=== PATIENT | male | born 1980 | race Caucasian/White ===

== ENCOUNTER 2018-02-23 19:06 | Inpatient (IN) | payer BC, SELFPAY ==
--- OUTSIDE RECORDS SUMMARY | 2018-02-23 19:12 | XMS REPORT | Continuity of Care Document ---
:1980 Author Organization Interface Problems Problem Status Onset Classification Date Comments Source Date Reported FOLLOW UP Active [address] PANCREATITIS Active [address] ACUTE PANCREATITIS, Active [facility] HYPERTRIGYCERIDEMIA [address] [place] [address] BDDC/ RECURRENT Active [facility] CHRONIC PANCREATITIS [address] [place] [address] [place] [address] PANCREATITIS - Active [facility] HOSPITAL FOLLOW UP [address] [place] [address] STOMACH PAIN/ Active [facility] VOMITTING [address] [place] [address] Pancreatitis Active Problem 04/02/[address] Pain Active Problem 02/05/[address] Diabetes mellitus Resolved Problem 04/02/2017 [facility] ACUTE PANCREATITIS Active [facility] WITHOUT NECROSIS OR [facility] PANCREATIC STEATORRHEA Active [facility] Medications Medication Details Route Status Patient Ordering Order Source Instructions Provider Date pregabalin 50 MG 50 mg=1 cap, Active 03/30[facility] Oral Capsule PO, TID, # 30 2017 Medical [Lyrica] cap, 2 Center Refill(s), called to pharmacy amoxicillin 500 500 mg=1 cap, Active 03/30[facility] mg oral capsule PO, TID, 2017 Medical 10days, # 42 Center cap, 0 Refill(s) atorvastatin 80 mg, Route: Inactive 02/13[facility] PO, Drug [facility] Medical form: TAB, Center Bedtime, Dosing Weight 82.813, kg, Start date: 02/12/17 21:00:00 CDT, Duration: 30 day, Stop date: 03/13/17 21:00:00 CDT insulin detemir 15 unit, 0.15 Inactive 02/13[facility] mL, Route: 2017 Medical SUB-Q, Drug Center form: SOLN, Q12H, Dosing Weight 82.813, kg, Start date: 02/12/17 21:00:00 CDT, Duration: 30 day, Stop date: 03/14/17 9:00:00 CDTNotes: Same as Levmoizir Do not hold insulin without contacting prescriber WASTE: F/P - Black; E - Municipal Trash Bin "single patient use only" Acetaminophen 300 1 tab, PO, Active [facility] MG / Codeine Q4H, PRN 2017 Medical Phosphate 30 MG Pain, X 5 Center Oral Tablet day, # 20 [Tylenol with tab, 0 Codeine #3] Refill(s) Ondansetron 4 MG 4 mg=1 tab, Active [facility] Oral Tablet PO, Q8H, PRN 2017 Medical [Zofran] Nausea/Vomiti Center ng, # 10 tab, 0 Refill(s), Pharmacy: [facility] [id number] 3 ML Insulin, See Active [facility] Aspart, Human 100 Instructions, 2017 Medical UNT/ML Pen Check Center Injector fingerstick [NovoLog] with meals (three times a day) If Glu 150-199 -> 2units 200-249 -> 4 units 250-299 -> 6 units 300-349 -> 8 units >=350 -> 10 units, # 3 mL, 0 Refill(s), other dicyclomine 20 mg 20 mg=1 tab, Active [facility] oral tablet PO, QID, # 28 2017 Medical tab, 0 Center Refill(s), Pharmacy: [place] [address] omega-3 1,000 mg=1 Active [facility] polyunsaturated cap, PO, BID, 2017 Medical fatty acids 1000 # 60 cap, 0 Center mg oral capsule Refill(s), Pharmacy: [place] [address] Oxycodone 5 mg, 1 tab, Inactive [facility] Hydrochloride 5 Route: PO, 2017 Medical MG Oral Tablet Drug form: Center TAB, Q4H, Dosing Weight 82.813, kg, PRN Pain Score 7-10, Start date: 02/12/17 13:47:00 CDT, Duration: 30 day, Stop date: 03/14/17 13:46:00 CDTNotes: (Same as: Roxicodone) Acetaminophen 300 2 tab, Route: Inactive [facility] MG / Codeine PO, Drug 2017 Medical Phosphate 30 MG Form: TAB, Center Oral Tablet Dosing Weight [Tylenol with 82.813, kg, Codeine #3] Q6H, PRN Pain Score 4-6, Start date: 02/12/17 11:32:00 CDT, Stop date: 03/14/17 11:31:00 CDTNotes: Do not exceed 4gm/day of acetaminophen . (Same as: Tylenol with Codeine # 3) insulin detemir 15 unit, Inactive [facility] Route: SUB-Q, 2017 Medical Q12H, Dosing Center Weight 82.813, kg, Start date: 02/12/17 9:00:00 CDT, Duration: 30 day, Stop date: 03/13/17 21:00:00 CDT Bentyl 20 mg, 1 tab, Inactive [facility] Route: PO, 2017 Medical Drug form: Center TAB, QID, Dosing Weight 82.813, kg, Start date: 02/12/17 9:00:00 CDT, Duration: 30 day, Stop date: 03/13/17 21:00:00 CDTNotes: (Same as: Bentyl) Insulin Glargine 15 unit, 0.15 No Longer [facility] 100 UNT/ML mL, Route: Active 2016 Medical Injectable SUB-Q, Drug Center Solution [Lantus] form: SOLN, Q12H, Dosing Weight 82.813, kg, Start date: 02/10/17 21:00:00 CDT, Duration: 30 day, Stop date: 03/12/17 9:00:00 CDTNotes: Same as: Lantus) Do not hold insulin without contacting prescriber WASTE: F/P - Black; E - Municipal Trash Bin Dextrose 50% 25 gm, 50 mL, No Longer [facility] Syringe Route: IVP, Active 2016 Medical Drug Form: Center INJ, Dosing Weight 82.813, kg, PRN, PRN Blood Glucose Results, Start date: 02/10/17 20:43:00 CDT, Duration: 30 day, Stop date: 03/12/17 20:42:00 CDT Insulin, Aspart, 6 unit, 0.06 No Longer [facility] Human mL, Route: Active 2016 Medical SUB-Q, Drug Center form: SOLN, TID-Before Meals, Dosing Weight 82.813, kg, PRN Blood Glucose Results, Start date: 02/10/17 20:43:00 CDT, Duration: 30 day, Stop date: 03/12/17 20:42:00 CDTNotes: Roll in palms of hands gently; Do not shake vigorously. (Same as: NovoLOG) "single patient use only" WASTE: F/P - Black; E - Municipal Trash Bin Stable for 28 days at room temperature. Expires in days from _Date Glucagon 1 mg, Route: No Longer [place] IM, Drug Active 2016 Medical form: [facility] PDR/INJ, PRN, Dosing Weight 82.813, kg, PRN Blood Glucose Results, Start date: 02/10/17 20:43:00 CDT, Duration: 30 day, Stop date: 03/12/17 20:42:00 CDT Zofran 4 mg, 2 mL, No Longer [facility] Route: IVP, Active 2016 Medical Drug form: [place] INJ, Q6H, Dosing Weight 82.813, kg, PRN Nausea, Start date: 02/10/17 8:53:00 CDT, Duration: 30 day, Stop date: 03/12/17 8:52:00 CDTNotes: (Same as: Zofran) MEDICATION WASTE Product Size: 4 mg Product Wasted: ___ mg potassium 40 mEq, 2 Inactive [place] chloride 20 mEq tab, Route: 2017 Medical oral tablet, PO, Drug [place] extended release form: ERTAB, ONCE, Dosing Weight 82.813, kg, Start date: 02/10/17 0:20:00 CDT, Stop date: 02/10/17 0:20:00 CDTNotes: (Same as: K-Dur 20) "Do Not Crush" With food and full glass of water Benadryl 10 mg, 4 mL, No Longer [facility] Route: PO, Active 2016 Medical Drug form: [place] LIQ, ONCE, Dosing Weight 82.813, kg, Start date: 02/09/17 23:50:00 CDT, Stop date: 02/09/17 23:50:00 CDTNotes: (Same as: Benadryl) dextrose 10% in 1,000 mL, No Longer [facility] water 1,000 mL Rate: 200 Active 2016 Medical ml/hr, Infuse Center over: 5 hr, Route: IV, Dosing Weight 82.813 kg, Total Volume: 1,000, Start date: 02/09/17 16:47:00 CDT, Duration: 30 day, Stop date: 03/11/17 16:46:00 CDT Promethazine 12.5 mg, 0.5 No Longer [facility] mL, Route: Active 2016 Medical IVPB, Drug Center form: INJ, Q4H, Dosing Weight 82.813, kg, PRN Nausea & Vomiting, Start date: 02/09/17 9:01:00 CDT, Duration: 30 day, Stop date: 03/11/17 9:00:00 CDTNotes: Do not give IV push. (Same as: Phenergan) Saline Flush 0.9% 10 ml, Route: No Longer [facility] IVP, Drug Active 2016 Medical Form: INJ, Center Dosing Weight 82.813, kg, Q12H, Start date: 02/09/17 9:00:00 CDT, Duration: 30 day, Stop date: 03/10/17 21:00:00 CDTNotes: Same as: BD Posiflush Sterile Gemfibrozil 600 mg, 1 No Longer [facility] tab, Route: Active 2016 Medical PO, Drug Center form: TAB, BID, Dosing Weight 82.813, kg, Start date: 02/09/17 9:00:00 CDT, Duration: 30 day, Stop date: 03/10/17 17:00:00 CDTNotes: (Same as: Lopid) Amylases 876672 1 cap, Route: No Longer [facility] UNT / PO, Drug Active 2016 Medical Endopeptidases Form: DRC, Center 78538 UNT / Dosing Weight Lipase 90607 UNT 82.813, kg, Enteric Coated TID, Start Capsule [Creon date: 24] 02/09/17 9:00:00 CDT, Duration: 30 day, Stop date: 03/10/17 17:00:00 CDTNotes: Same as: Carter PEÑA 24 : lipase 24,000 units, protease 76,000 units, amylase 120,000 units Alva-3 Acid 2 gm, 2 cap, No Longer [facility] Ethyl Esters Route: PO, Active 2017 Medical ([facility]) 1000 MG Drug Form: Center Oral Capsule CAP, Dosing [Lovaza] Weight 82.813, kg, BID, Start date: 02/09/17 9:00:00 CDT, Duration: 30 day, Stop date: 03/10/17 17:00:00 CDTNotes: (Same as: MaxEPA, Alva 3 fish oil ) Non-Formular y Drug Dilaudid 0.5 mg, 0.25 No Longer [place] mL, Route: Active 2016 Medical IV, Drug Center form: INJ, Q3H, Dosing Weight 82.813, kg, PRN Pain Score 7-10, Start date: 02/09/17 7:47:00 CDT, Stop date: 03/11/17 7:46:00 CDTNotes: Same as: Dilaudid Oxycodone 10 mg, 2 tab, No Longer [facility] Hydrochloride 5 Route: PO, Active 2016 Medical MG Oral Tablet Drug form: Center TAB, Q4H, Dosing Weight 82.813, kg, Start date: 02/09/17 7:46:00 CDT, Stop date: 03/11/17 8:00:00 CDTNotes: (Same as: Roxicodone) Dilaudid 0.5 mg, 0.25 Inactive [place] mL, Route: 2016 Medical IVP, Drug Center form: INJ, ONCE, Dosing Weight 82.813, kg, Priority: STAT, Start date: 02/09/17 5:29:00 CDT, Stop date: 02/09/17 5:29:00 CDTNotes: Same as: Dilaudid Dilaudid 0.5 mg, 0.25 Inactive [place] mL, Route: 2017 Medical IVP, Drug Center form: INJ, Q6H, Dosing Weight 82.813, kg, PRN Pain Score 7-10, Start date: 02/09/17 2:09:00 CDT, Duration: 30 day, Stop date: 03/11/17 2:08:00 CDTNotes: Same as: Dilaudid Zofran 4 mg, 2 mL, No Longer [facility] Route: IVP, Active 2016 Medical Drug form: Center INJ, Q8H, Dosing Weight 82.813, kg, PRN Nausea, Start date: 02/09/17 2:08:00 CDT, Duration: 30 day, Stop date: 03/11/17 2:07:00 CDTNotes: (Same as: Zofran) MEDICATION WASTE Product Size: 4 mg Product Wasted: 0 mg Enoxaparin 40 mg, 0.4 No Longer [place] mL, Route: Active 2016 Medical SUB-Q, Drug Center form: INJ, [id number], Dosing Weight 82.813, kg, Start date: 02/09/17 2:00:00 CDT, Duration: 30 day, Stop date: 03/10/17 2:00:00 CDTNotes: (Same as: Lovenox) Potassium 20 mEq, 15 No Longer [facility] Chloride mL, Route: Active 2016 Medical [place], Drug Center form: LIQ, PRN, Dosing Weight 82.813, kg, PRN Abnormal Lab Result, Start date: 02/09/17 1:58:00 CDT, Duration: 30 day, Stop date: 03/11/17 1:57:00 CDT, FOR ICU USE ONLYNotes: (Same as: Potassium Chloride) sodium phosphate 15 mmol, 5 No Longer [facility] mL, Route: Active 2016 Medical IVPB, PRN, Center Dosing Weight 82.813, kg, PRN Abnormal Lab Result, Start date: 02/09/17 1:58:00 CDT, Duration: 30 day, Stop date: 03/11/17 1:57:00 CDT, FOR ICU USE ONLY Calcium Carbonate 1,000 mg, 2 No Longer [facility] 500 MG Chewable tab, Route: Active 2016 Medical Tablet PO, Drug Center form: CHEWTAB, PRN, Dosing Weight 82.813, kg, PRN Abnormal Lab Result, FOR ICU USE ONLY, Start date: 02/09/17 1:58:00 CDT, Duration: 30 day, Stop date: 03/11/17 1:57:00 CDTNotes: (Same As: Tums) Calcium Carbonate 500 [id number] mg elemental calcium Dose= mg calcium carbonate ( mg elemental calcium) potassium 15 mmol, 5 No Longer [place] phosphate mL, Route: Active 2017 Medical IVPB, PRN, Center Dosing Weight 82.813, kg, PRN Abnormal Lab Result, Start date: 02/09/17 1:58:00 CDT, Duration: 30 day, Stop date: 03/11/17 1:57:00 CDT, FOR ICU USE ONLYNotes: (Same as: K Phosphate.) 1 mMol phoshate has 1.47 mEq potassium Infuse over 4 hours Calcium Gluconate 1 gm, 10 mL, No Longer [facility] Route: IVPB, Active 2016 Medical PRN, Dosing Center Weight 82.813, kg, PRN Abnormal Lab Result, Start date: 02/09/17 1:58:00 CDT, Duration: 30 day, Stop date: 03/11/17 1:57:00 CDT, FOR ICU USE ONLYNotes: WASTE: F/P - Sink; E - Municipal Trash Bin potassium 2 pkt, Route: No Longer [place] phosphate-sodium PO, Drug Active 2016 Medical phosphate 250 Form: Center mg-280 mg-160 mg PDR/REC, oral powder for Dosing Weight reconstitution 82.813, kg, PRN, PRN Abnormal Lab Result, FOR ICU USE ONLY, Start date: 02/09/17 1:58:00 CDT, Duration: 30 day, Stop date: 03/11/17 1:57:00 CDTNotes: (Same as: Phos-NaK) Each 1.5 gm pkt has 250mg phosphorous. Mix w/2.5oz water and stir. Magnesium Sulfate 2 gm, 50 mL, No Longer [facility] Route: IVPB, Active 2016 Medical Drug form: Center INJ, PRN, Dosing Weight 82.813, kg, PRN Abnormal Lab Result, Start date: 02/09/17 1:58:00 CDT, Duration: 30 day, Stop date: 03/11/17 1:57:00 CDT, FOR ICU USE ONLYNotes: WASTE: F/P - Sink; E - Municipal Trash Bin Magnesium Oxide 800 mg, 2 No Longer [place] tab, Route: Active 2017 Medical PO, Drug Center form: TAB, PRN, Dosing Weight 82.813, kg, PRN Abnormal Lab Result, FOR ICU USE ONLY, Start date: 02/09/17 1:58:00 CDT, Duration: 30 day, Stop date: 03/11/17 1:57:00 CDTNotes: (Same as: Mag-Ox 400) Magnesium oxide [id number] elemental magnesium Dose=____mg magnesium oxide (___mg elemental magnesium) Saline Flush 0.9% 10 ml, Route: No Longer [facility] IVP, Drug Active 2016 Medical Form: INJ, Center Dosing Weight 82.813, kg, PRN, PRN Line Flush, Start date: 02/09/17 1:58:00 CDT, Duration: 30 day, Stop date: 03/11/17 1:57:00 CDTNotes: Same as: BD Posiflush Sterile Nystatin 100 1 appl, No Longer [facility] UNT/MG Topical Route: TOP, Active 2017 Medical Powder PRN, Drug Center form: PWDR, PRN For Fungal Prophylaxis, Start date: 02/09/17 1:58:00 CDT, Duration: 30 day, Stop date: 03/11/17 1:57:00 CDTNotes: (Same as:Mycostatin , Nilstat) For external use only. Dilaudid 1 mg, Route: Inactive [facility] IVP, ONCE, 2016 Medical Dosing Weight Center 81.818, kg, Priority: STAT, Start date: 02/08/17 23:11:00 CDT, Stop date: 02/08/17 23:11:00 CDT Zofran 4 mg, Route: Inactive [facility] IVP, Drug 2016 Medical form: INJ, Center ONCE, Dosing Weight 81.818, kg, Start date: 02/08/17 23:10:00 CDT, Stop date: 02/08/17 23:10:00 CDT dextrose 10% in 1,000 mL, No Longer [facility] water 1,000 mL Rate: 150 Active 2016 Medical ml/hr, Infuse Center over: 6.7 hr, Route: IV, Dosing Weight 81.818 kg, Total Volume: 1,000, Start date: 02/08/17 22:02:00 CDT, Stop date: 03/10/17 22:01:00 CDT Dilaudid 1 mg, Route: Inactive [facility] IV, ONCE, 2016 Medical Dosing Weight Center 81.818, kg, Start date: 02/08/17 21:15:00 CDT, Stop date: 02/08/17 21:15:00 CDT Dilaudid 1 mg, Route: Inactive [facility] IVP, ONCE, 2016 Medical Dosing Weight Center 81.818, kg, Priority: STAT, Start date: 02/08/17 19:38:00 CDT, Stop date: 02/08/17 19:38:00 CDT Dilaudid 1 mg, Route: Inactive [facility] IVP, ONCE, 2016 Medical Dosing Weight Center 81.818, kg, Priority: STAT, Start date: 02/08/17 17:32:00 CDT, Stop date: 02/08/17 17:32:00 CDT Dextrose 50% 25 gm, 50 mL, No Longer [facility] Syringe Route: IVP, Active 2016 Medical Drug Form: Center INJ, Dosing Weight 81.818, kg, PRN, PRN Blood Glucose Results, Start date: 02/08/17 17:27:00 CDT, Duration: 30 day, Stop date: 03/10/17 17:26:00 CDT Insulin regular 99 mL, Rate: No Longer [facility] 100 unit + sodium Start Insulin Active 2016 Medical chloride 0.9% INJ Drip Per ICU Center 99 mL Protocol, Dosing Weight 81.818, kg, Route: IVPB, Total Volume: 100, Start Date: 02/08/17 17:27:00 CDT, Duration: 30 day, Stop date: 03/10/17 17:26:00 CDT, Replace Every: 24 hrNotes: (Same as: Humulin R and NovoLIN R) WASTE: F/P - Black; E - Municipal Trash Bin (Do not shake) Ondansetron 4 mg, Route: Inactive [facility] IVP, Drug 2016 Medical form: INJ, Center ONCE, Dosing Weight 81.818, kg, Priority: STAT, Start date: 02/08/17 16:55:00 CDT, Stop date: 02/08/17 16:55:00 CDT Dilaudid 1 mg, Route: Inactive [facility] IV, ONCE, 2017 Medical Dosing Weight Center 81.818, kg, Start date: 02/08/17 16:38:00 CDT, Stop date: 02/08/17 16:38:00 CDT Isolyte S PH-7.4 1,000 mL, Inactive [facility] (Bolus) IV Route: IV, 2016 Medical Dosing Weight Center 81.818, kg, ONCE, Start date: 02/08/17 16:38:00 CDT, Stop date: 02/08/17 16:38:00 CDT Amylases 392308 See Active [place] UNT / Instructions, 2017 Medical Endopeptidases 2 caps Center 513714 UNT / (72,000 Lipase 95996 UNT units) TID w/ Enteric Coated meals, 1 cap Capsule [Creon] (36,000 units) TID with snacks; may be mixed with soft foods such as applesauce, # 270 cap, 0 Refill(s), Pharmacy: [facility] [id number] niacin 500 mg 500 mg=1 tab, Active [place] oral tablet, PO, Bedtime, 2017 Medical extended release # 30 tab, 0 Center Refill(s), Pharmacy: [facility] 149 3 ML Insulin 35 unit, Active [place] Glargine 100 SUB-Q, Daily, 2017 Medical UNT/ML Prefilled # 3 mL, 0 Center Syringe [Lantus] Refill(s), Pharmacy: [facility] 149 gemfibrozil 600 600 mg=1 tab, Active [facility] mg oral tablet PO, BID, # 60 2017 Medical tab, 0 Center Refill(s), Pharmacy: [place] [address] Alva-3 Acid 2,000 mg=, Active [place] Ethyl Esters PO, BID, # 60 2017 Medical ([facility]) 1000 MG tab, 0 Center Oral Capsule Refill(s), [Lovaza] Pharmacy: [place] [address] oxyCODONE 10 mg 10 mg, 1 tab, No Longer [place] extended release Route: PO, Active 2016 Medical Drug form: [place] ERTAB, Q12H, Start date: 01/16/17 11:00:00 CDT, Duration: 30 day, Stop date: 02/15/17 9:00:00 CDTNotes: Do not crush or chew. (Same as: OxyContin) NovoLOG FlexPen 5 unit, Inactive [place] Route: SUB-Q, 2017 Medical TID-Before Center Meals, Dosing Weight 77.273, kg, Start date: 01/15/17 11:30:00 CDT, Duration: 30 day, Stop date: 02/14/17 7:30:00 CDT insulin regular 8 unit, 0.08 No Longer [place] 100 units/mL mL, Route: [facility] human recombinant SUB-Q, Drug [place] form: SOLN, TID-Before Meals, Start date: 01/15/17 11:30:00 CDT, Stop date: 02/14/17 7:30:00 CDTNotes: (Same as: Humulin R) Roll in palms of hands gently; Do not shake vigorously. "single patient use only" (Restricted to patients requiring a dose > 60 units) WASTE: F/P - Black; E - Municipal Trash Bin Stable for 28 days at room temperature Expires in days from _Date 3 ML Insulin 32 unit, 0.32 No Longer [place] Glargine 100 mL, Route: Active [facility] UNT/ML Prefilled SUB-Q, Drug [place] Syringe [Lantus] form: MARYCRUZ, Daily, Dosing Weight 77.273, kg, Start date: 01/15/17 9:00:00 CDT, Stop date: 02/13/17 9:00:00 CDTNotes: Same as: Lantus) Do not hold insulin without contacting prescriber WASTE: F/P - Black; E - Municipal Trash Bin Iohexol 100 mL, Inactive [place] Route: IVP, 2016 Medical Drug Form: [place] SOLN, Dosing Weight 77.273, kg, ONCALL, STAT, Start date: 01/15/17 3:38:00 CDT, Duration: 1 doses or times, Dose=2.2ml/kg , Max [id number] -- "To be infused by Radiology Staff ONLY"Notes: (Same as:Omnipaque 350). WASTE: F/P - Black; E - Municipal Trash Bin Pneumovax 23 0.5 mL, Inactive [place] Route: IM2016 Medical Drug Form: Center INJ, Daily, Start date: 01/14/17 18:30:00 CDT, Duration: 1 doses or times, Stop date: 01/14/17 18:30:00 CDT Pneumovax 23 0.5 mL, Inactive [place] Route: IM2016 Medical Drug Form: Center INJ, Daily, Start date: 01/14/17 16:00:00 CDT, Duration: 1 doses or times, Stop date: 01/14/17 16:00:00 CDTNotes: (Same as: Pneumovax 23) Refrigerate insulin, isophane 12 unit, 0.12 No Longer [place] mL, Route: Active 2016 Medical SUB-Q, Drug Center form: INJ, Q12H, Dosing Weight 77.273, kg, Start date: 01/14/17 9:00:00 CDT, Stop date: 02/12/17 21:00:00 CDTNotes: Roll in palms of hands gently; Do not shake vigorously. (Same as: Humulin N) Do not hold insulin without contacting prescriber WASTE: F/P - Black; E - Municipal Trash Bin Stable for 28 days at room temperature Expires in days from _Date Enoxaparin 40 mg, 0.4 No Longer [place] mL, Route: Active 2016 Medical SUB-Q, Drug Center form: INJ, [id number], Dosing Weight 77.273, kg, Start date: 01/14/17 7:00:00 CDT, Duration: 30 day, Stop date: 02/12/17 9:00:00 CDTNotes: (Same as: Lovenox) Docusate Sodium 2 tab, Route: No Longer [place] 50 MG / PO, Drug Active 2016 Medical sennosides, [facility] Form: TAB, Center 8.6 MG Oral Dosing Weight Tablet 77.273, kg, Q12H, Start date: 01/13/17 21:00:00 CDT, Duration: 30 day, Stop date: 02/12/17 9:00:00 CDTNotes: (Same as Senokot-S) Equiv. to Cris-Colace. Oxycodone 10 mg, 2 tab, No Longer [place] Hydrochloride 5 Route: PO, Active 2016 Medical MG Oral Tablet Drug form: Center TAB, Q6H, Dosing Weight 77.273, kg, PRN Pain Score 4-6, Start date: 01/13/17 18:00:00 CDT, Stop date: 02/12/17 12:00:00 CDTNotes: (Same as: Roxicodone) sodium chloride 1,000 mL, No Longer [place] 0.9% 1000 ml INJ Rate: 125 Active 2016 Medical 1,000 mL ml/hr, Infuse Center over: 8 hr, Route: IV, Dosing Weight 77.273 kg, Total Volume: 1,000, Start date: 01/13/17 15:55:00 CDT, Duration: 30 day, Stop date: 02/12/17 15:54:00 CDT 3 ML Insulin, SUB-Q, Active [place] Aspart, Human 100 TID-Before 2016 Medical UNT/ML Pen Meals, Center Injector sliding scale [NovoLog] 3 ML Insulin 35 unit, No Longer [place] Glargine 100 SUB-Q, Daily Active 2016 Medical UNT/ML Prefilled Center Syringe [Lantus] potassium 40 mEq, 2 Inactive [place] chloride 20 mEq tab, Route: 2016 Medical oral tablet, PO, Drug Center extended release form: ERTAB, Lunch, Dosing Weight 77.273, kg, Start date: 01/13/17 12:00:00 CDT, Duration: 1 doses or times, Stop date: 01/13/17 12:00:00 CDTNotes: (Same as: K-Dur 20) "Do Not Crush" With food and full glass of water Insulin regular 3 unit, 0.03 No Longer [place] mL, Route: Active 2016 Medical SUB-Q, Drug Center form: SOLN, TID-Before Meals, Dosing Weight 77.273, kg, PRN Blood Glucose Results, Start date: 01/13/17 9:40:00 CDT, Duration: 30 day, Stop date: 02/12/17 9:39:00 CDTNotes: (Same as: Humulin R) Roll in palms of hands gently; Do not shake vigorously. "single patient use only" (Restricted to patients requiring a dose > 60 units) WASTE: F/P - Black; E - Municipal Trash Bin Stable for 28 days at room temperature Expires in days from _Date Dextrose 50% 12.5 gm, 25 No Longer [facility] Syringe mL, Route: Active 2016 Medical IVP, Drug Center Form: INJ, Dosing Weight 77.273, kg, PRN, PRN Blood Glucose Results, Start date: 01/13/17 9:40:00 CDT, Duration: 30 day, Stop date: 02/12/17 9:39:00 CDT Glucagon 1 mg, Route: No Longer [facility] IM, Drug Active 2016 Medical form: Center PDR/INJ, PRN, Dosing Weight 77.273, kg, PRN Blood Glucose Results, Start date: 01/13/17 9:40:00 CDT, Duration: 30 day, Stop date: 02/12/17 9:39:00 CDT Magnesium Oxide 800 mg, 2 Inactive [facility] tab, Route: 2016 Medical PO, Drug Center form: TAB, TID, Dosing Weight 77.273, kg, Start date: 01/13/17 9:00:00 CDT, Duration: 1 day, Stop date: 01/13/17 17:00:00 CDTNotes: (Same as: Mag-Ox 400) Magnesium oxide [id number] elemental magnesium Dcgv=340 mg magnesium oxide (484 mg elemental magnesium) insulin, isophane 5 unit, 0.05 Inactive 01/[facility] mL, Route: [facility] SUB-Q, Drug Center form: INJ, BID, Dosing Weight 77.273, kg, Start date: 01/13/17 9:00:00 CDT, Duration: 30 day, Stop date: 02/11/17 17:00:00 CDTNotes: Roll in palms of hands gently; Do not shake vigorously. (Same as: Humulin N) Do not hold insulin without contacting prescriber WASTE: F/P - Black; E - Municipal Trash Bin Stable for 28 days at room temperature Expires in days from _Date Potassium 40 mEq, 30 Inactive [place] Chloride 1.33 mL, Route: 2016 Medical MEQ/ML Oral PO, Drug Center Solution form: LIQ, ONCE, Dosing Weight 77.273, kg, Start date: 01/13/17 7:52:00 CDT, Stop date: 01/13/17 7:52:00 CDTNotes: (Same as: Potassium Chloride) potassium 10 mEq, Inactive [place] chloride Route: IVPB, 2017 Medical Q1H, Dosing Center Weight 77.273, kg, Total Dose=40 meq, Start date: 01/13/17 7:00:00 CDT, Duration: 4 doses or times, Stop date: 01/13/17 10:00:00 CDT, Peripheral Line potassium 80 mEq, 4 Inactive [place] chloride 20 mEq tab, Route: 2016 Medical oral tablet, PO, Drug Center extended release form: ERTAB, ONCE, Dosing Weight 77.273, kg, Start date: 01/13/17 6:30:00 CDT, Stop date: 01/13/17 6:30:00 CDTNotes: (Same as: K-Dur 20) "Do Not Crush" With food and full glass of water D5W 1/2NS 1,000 1,000 mL, Inactive [place] mL Rate: 75 2017 Medical ml/hr, Infuse Center over: 13.3 hr, Route: IV, Dosing Weight 77.273 kg, Total Volume: 1,000, Start date: 01/13/17 6:29:00 CDT, Duration: 30 day, Stop date: 02/12/17 6:28:00 CDT Simethicone 80 mg, 1.2 No Longer [place] mL, Route: Active 2016 Medical PO, Drug Center form: DROP, Q6H, Dosing Weight 77.273, kg, PRN Gas, Start date: 01/13/17 0:42:00 CDT, Duration: 30 day, Stop date: 02/12/17 0:41:00 CDTNotes: (Same as: Mylicon, Phazyme, Genasyme) Docusate Sodium 100 mg, 1 No Longer [place] 100 MG Oral cap, Route: Active 2016 Medical Capsule [Colace] PO, Drug Center form: CAP, Bedtime, Dosing Weight 77.273, kg, Start date: 01/12/17 21:00:00 CDT, Duration: 30 day, Stop date: 02/10/17 21:00:00 CDTNotes: (Same as: Colace) (Do Not Crush) niacin 500 mg, 2 No Longer [place] tab, Route: Active 2017 Medical PO, Drug Center form: TAB, Bedtime, Dosing Weight 77.273, kg, Start date: 01/12/17 21:00:00 CDT, Stop date: 02/10/17 21:00:00 CDT dextrose 10% in 980.75 mL, No Longer [place] water 980.75 mL + Rate: 200 Active 2016 Medical sodium chloride ml/hr, Infuse Center 23.4% IV 77 mEq over: 5 hr, Route: IV, Dosing Weight 77.273 kg, Total Volume: 1,000, Start date: 01/12/17 12:42:00 CDT, Duration: 30 doses or times, Stop date: 01/18/17 18:41:00 CDT pneumococcal 0.5 mL, No Longer [place] capsular Route: IM, Active 2016 Medical polysaccharide Drug Form: Center type 1 vaccine / INJ, Daily, pneumococcal Start date: capsular 01/12/17 polysaccharide 9:00:00 CDT, type 10A vaccine Duration: 1 / pneumococcal doses or capsular times, Stop polysaccharide date: type 11A vaccine 01/12/17 / pneumococcal 9:00:00 capsular CDTNotes: polysaccharide (Same as: type 12F vaccine Pneumovax 23) / pneumococcal Refrigerate capsular polysacchar senna 8.6 mg oral 17.2 mg, 2 No Longer [place] tablet tab, Route: Active 2017 Medical PO, Drug Center Form: TAB, Dosing Weight 77.273, kg, BID, Start date: 01/12/17 9:00:00 CDT, Duration: 30 day, Stop date: 02/10/17 17:00:00 CDTNotes: (Same as: Senokot) Dilaudid 0.2 mg, 0.1 No Longer [place] mL, Route: Active 2016 Medical IVP, Drug Center form: INJ, Q3H, Dosing Weight 77.273, kg, PRN Pain Score 7-10, Start date: 01/12/17 8:41:00 CDT, Duration: 30 day, Stop date: 02/11/17 8:40:00 CDTNotes: Same as: Dilaudid Dilaudid 2 mg, Route: Inactive [place] PO, Drug 2016 Medical form: TAB, Center Q3H, Dosing Weight 77.273, kg, PRN Pain Score 4-6, Start date: 01/12/17 8:37:00 CDT, Duration: 30 day, Stop date: 02/11/17 8:36:00 CDT Zofran 4 mg, 2 mL, No Longer [place] Route: IVP, Active 2016 Medical Drug form: Center INJ, Q8H, Dosing Weight 77.273, kg, PRN Nausea, Start date: 01/12/17 8:33:00 CDT, Duration: 30 day, Stop date: 02/11/17 8:32:00 CDTNotes: (Same as: Zofran) MEDICATION WASTE Product Size: 4 mg Product Wasted: ___ mg Miralax 17 gm, 1 pkt, No Longer [place] Route: PO, Active 2016 Medical Drug form: Center PWDR, BID, Dosing Weight 77.273, kg, PRN Constipation, Start date: 01/12/17 7:41:00 CDT, Duration: 30 day, Stop date: 02/11/17 7:40:00 CDTNotes: Dissolve in 8 oz of water or juice. (Same as: Miralax) dextrose 10% in 980.75 mL, Inactive [place] water 980.75 mL + Rate: 200 2016 Medical sodium chloride ml/hr, Infuse Center 23.4% IV 77 mEq over: 5 hr, Route: IV, Dosing Weight 77.273 kg, Total Volume: 1,000, Start date: 01/12/17 7:39:00 CDT, Duration: 1 doses or times, Stop date: 01/12/17 12:38:00 CDT potassium 20 mEq, 100 No Longer [place] chloride mL, Route: Active 2017 Medical IVPB, Drug Center form: INJ, PRN, Dosing Weight 77.273, kg, PRN Abnormal Lab Result, Via central line, Start date: 01/12/17 5:21:00 CDT, Duration: 30 day, Stop date: 02/11/17 5:20:00 CDT, FOR ICU USE ONLYNotes: (Same as: KCL) Infuse no faster than 10 mEq/hr if given peripherally. potassium 45 mmol, 15 No Longer [place] phosphate + mL, Route: Active 2017 [facility] sodium chloride IVPB, PRN, [place] 0.9% INJ 250 mL Dosing Weight 77.273, kg, PRN Abnormal Lab Result, Start date: 01/12/17 5:21:00 CDT, Duration: 30 day, Stop date: 02/11/17 5:20:00 CDT, FOR ICU USE ONLYNotes: (Same as: K Phosphate.) 1 mMol phoshate has 1.47 mEq potassium Infuse over 4 hours Magnesium Sulfate 2 gm, 50 mL, No Longer [place] Route: IVPB, Active 2016 Medical Drug form: [place] INJ, PRN, Dosing Weight 77.273, kg, PRN Abnormal Lab Result, Start date: 01/12/17 5:21:00 CDT, Duration: 30 day, Stop date: 02/11/17 5:20:00 CDT, FOR ICU USE ONLYNotes: WASTE: F/P - Sink; E - Municipal Trash Bin potassium 2 pkt, Route: No Longer [place] phosphate-sodium PO, Drug Active 2016 Medical phosphate 250 Form: [place] mg-280 mg-160 mg PDR/REC, oral powder for Dosing Weight reconstitution 77.273, kg, PRN, PRN Abnormal Lab Result, FOR ICU USE ONLY, Start date: 01/12/17 5:21:00 CDT, Duration: 30 day, Stop date: 02/11/17 5:20:00 CDTNotes: (Same as: Phos-NaK) Each 1.5 gm pkt has 250mg phosphorous. Mix w/2.5oz water and stir. Calcium Gluconate 1 gm, 10 mL, No Longer [place] Route: IVPB, Active 2016 Medical PRN, Dosing Center Weight 77.273, kg, PRN Abnormal Lab Result, Start date: 01/12/17 5:21:00 CDT, Duration: 30 day, Stop date: 02/11/17 5:20:00 CDT, FOR ICU USE ONLYNotes: WASTE: F/P - Sink; E - Municipal Trash Bin Magnesium Oxide 800 mg, 2 No Longer [place] tab, Route: Active 2016 Medical PO, Drug Center form: TAB, PRN, Dosing Weight 77.273, kg, PRN Abnormal Lab Result, FOR ICU USE ONLY, Start date: 01/12/17 5:21:00 CDT, Duration: 30 day, Stop date: 02/11/17 5:20:00 CDTNotes: (Same as: Mag-Ox 400) Magnesium oxide [id number] elemental magnesium Dose=____mg magnesium oxide (___mg elemental magnesium) sodium phosphate 15 mmol, 5 No Longer [place] + sodium chloride mL, Route: Active 2016 Medical 0.9% INJ 250 mL IVPB, PRN, Center Dosing Weight 77.273, kg, PRN Abnormal Lab Result, Start date: 01/12/17 5:21:00 CDT, Duration: 30 day, Stop date: 02/11/17 5:20:00 CDT, FOR ICU USE ONLY Calcium Carbonate 500 mg, 1 No Longer [place] 500 MG Chewable tab, Route: Active 2016 Medical Tablet PO, Drug Center form: CHEWTAB, PRN, Dosing Weight 77.273, kg, PRN Abnormal Lab Result, FOR ICU USE ONLY, Start date: 01/12/17 5:21:00 CDT, Duration: 30 day, Stop date: 02/11/17 5:20:00 CDTNotes: (Same As: Tums) Calcium Carbonate 500 yh=711 mg elemental calcium Dose= mg calcium carbonate ( mg elemental calcium) Gemfibrozil 600 mg, 1 No Longer [place] tab, Route: Active 2017 Medical PO, Drug Center form: TAB, BID-Before Meals, Dosing Weight 77.273, kg, Start date: 01/12/17 5:18:00 CDT, Stop date: 02/10/17 16:30:00 CDTNotes: (Same as: Lopid) gemfibrozil 600 600 mg=1 tab, No Longer [place] mg oral tablet PO, BID, # Active 2016 Medical 180 tab, 0 Center Refill(s) Lovaza 2,000 mg=, No Longer [place] PO, BID, 0 Active 2016 Medical Refill(s) Center 3 ML Insulin SUB-Q, 0 No Longer [place] Glargine 100 Refill(s) Active 2016 Medical UNT/ML Prefilled Center Syringe [Lantus] 3 ML Insulin, SUB-Q, No Longer [facility] Aspart, Human 100 TID-Before Active 2016 Medical UNT/ML Pen Meals, 0 Center Injector Refill(s) [NovoLog] niacin 500 mg 500 mg=1 tab, No Longer [place] oral tablet, PO, Bedtime, Active 2016 Medical extended release # 30 tab, 0 Center Refill(s) Enoxaparin 40 mg, 0.4 No Longer [place] mL, Route: Active 2016 Medical SUB-Q, Drug Center form: INJ, [id number], Dosing Weight 77.273, kg, Start date: 01/12/17 3:00:00 CDT, Duration: 30 day, Stop date: 02/10/17 3:00:00 CDTNotes: (Same as: Lovenox) Morphine 2 mg, 1 mL, No Longer [place] Route: IVP, Active 2016 Medical Drug form: Center INJ, Q4H, Dosing Weight 77.273, kg, PRN Pain Score 7-10, Start date: 01/12/17 2:42:00 CDT, Stop date: 01/14/17 2:41:00 CDTNotes: (Same as:MORPhine Sulfate) D5W 1/2NS 1,000 1,000 mL, Inactive [place] mL Rate: 200 2016 Medical ml/hr, Infuse Center over: 5 hr, Route: IV, Dosing Weight 81.818 kg, Total Volume: 1,000, Start date: 01/12/17 1:06:00 CDT, Stop date: 02/11/17 1:05:00 CDT Hydromorphone 0.5 mg, Inactive [facility] Route: IVP, 2017 Medical ONCE, Dosing Center Weight 81.818, kg, Priority: STAT, Start date: 01/12/17 0:40:00 CDT, Stop date: 01/12/17 0:40:00 CDT Dextrose 50% 12.5 gm, 25 No Longer [facility] Syringe mL, Route: Active 2016 Medical IVP, Drug Center Form: INJ, Dosing Weight 81.818, kg, PRN, PRN Blood Glucose Results, Start date: 01/12/17 0:37:00 CDT, Duration: 30 day, Stop date: 02/11/17 0:36:00 CDT Insulin regular 99 mL, Rate: No Longer [facility] 100 unit + sodium Start Insulin Active 2016 Medical chloride 0.9% INJ Drip Per ICU Center 99 mL Protocol, Dosing Weight 81.818, kg, Route: IVPB, Total Volume: 100, Start Date: 01/12/17 0:37:00 CDT, Duration: 30 day, Stop date: 02/11/17 0:36:00 CDT, Replace Every: 24 hrNotes: (Same as: Humulin R and NovoLIN R) WASTE: F/P - Black; E - Municipal Trash Bin (Do not shake) Morphine 4 mg, Route: Inactive [facility] IVP, ONCE, 2017 Medical Dosing Weight Center 81.818, kg, Priority: STAT, Start date: 01/11/17 23:48:00 CDT, Stop date: 01/11/17 23:48:00 CDT Insulin regular 10 unit, Inactive [facility] Route: SUB-Q, 2017 Medical ONCE, Dosing Center Weight 81.818, kg, Priority: STAT, Start date: 01/11/17 23:30:00 CDT, Stop date: 01/11/17 23:30:00 CDT Morphine 4 mg, Route: Inactive [facility] IVP, ONCE, 2017 Medical Dosing Weight Center 81.818, kg, Priority: STAT, Start date: 01/11/17 22:32:00 CDT, Stop date: 01/11/17 22:32:00 CDT Ondansetron 4 mg, Route: Inactive [facility] IVP, Drug 2016 Medical form: INJ, Center ONCE, Dosing Weight 81.818, kg, Priority: STAT, Start date: 01/11/17 22:25:00 CDT, Stop date: 01/11/17 22:25:00 CDT Sodium Chloride 1,000 mL, Inactive [facility] 0.154 MEQ/ML Infuse Over: 2016 Medical Injectable 1 hr, Route: Center Solution IV, ONCE, Priority: STAT, Dosing Weight 81.818 kg, Start date: 01/11/17 22:25:00 CDT, Duration: 1 doses or times, Stop date: 01/11/17 22:25:00 CDT Allergies, Adverse Reactions, Alerts Substance Category Reaction Severity Reaction Status Date Comments Source type Reported NKDA Assertion Drug Active [facility] Immunizations Immunization Date Site Status Last Updated Comments Source Given pneumococcal Right completed [place] [facility] 23-valent 7 deltoid [facility] vaccine [place] Results Order Name Results Value Reference Date Interpretation Comments Source Range BODY FLUIDS Amylase BF 6510 02/22 [facility] Cyst unit/L [facility] BODY FLUIDS CEA BF Cyst 2.2 ng/mL 02/[address] BODY FLUIDS Glucose BF 355 mg/dL 02/22 [facility] Cyst [address] [place] [address] CHEM PANEL Phosphorus 3.8 mg/dL 2.5 - 4.5 02/[address] CHEM PANEL Magnesium Lvl 2.1 mg/dL 1.8 - 2.4 02/[address] CHEM PANEL Calcium Lvl 8.9 mg/dL 8.5 - 10.5 02/[address] CHEM PANEL eGFR 117 02/12 Result Comment: The eGFR is calculated using the CKD-EPI formula. In most young, healthy individuals the eGFR will be >90 mL/ min/1.73m2. The eGFR declines with age. An eGFR of 60-89 may be normal in [facility] mL/min/1.7 /2016 some populations, particularly the elderly, for whom the CKD-EPI formula has not been extensively validated. Use of the eGFR is not recommended in the following populations: [place] [address] Center Individuals with unstable creatinine concentrations, including patients and those with serious co-morbid conditions. Patients with extremes in muscle mass or diet. The data above are obtained from the National Kidney Disease Education Program (NKDEP) which additionally recommends that when the eGFR is used in patients with extremes of body mass index for purposes of drug dosing, the eGFR should be multiplied by the estimated BMI. CHEM PANEL Potassium Lvl 3.6 meq/L 3.5 - 5.1 02/[address] [place] [address] CHEM PANEL Chloride Lvl 101 meq/L 95 - 109 02/[address] CHEM PANEL Sodium Lvl 138 meq/L 135 - 145 02/[address] CHEM PANEL Calcium Lvl 8.9 mg/dL 8.5 - 10.5 02/[address] CHEM PANEL CO2 27 meq/L 24 - 32 02/[address] CHEM PANEL Glucose Lvl 128 mg/dL 70 - 99 02/[address] CHEM PANEL Creatinine 0.76 mg/dL 0.50 - 02/12 [facility] Lvl 1.40 [facility] CHEM PANEL BUN 11 mg/dL 7 - 22 02/[address] CHEM PANEL AGAP 13.6 meq/L 10.0 - 02/12 [place] 20.0 [facility] HEMATOLOGY INR 1.01 0.85 - 02/12 [facility] 1.17 [facility] HEMATOLOGY PTT 36.0 s 22.9 - 02/12 [place] 35.8 [facility] HEMATOLOGY PT 13.5 s 12.0 - 02/12 [facility] 14.7 [facility] HEMATOLOGY INR 1.01 0.85 - 02/12 [place] 1.17 [facility] HEMATOLOGY PT 13.5 s 12.0 - 02/12 [facility] 14.7 [facility] HEMATOLOGY Eosinophils # 0.1 K/CMM 0.0 - 0.5 02/[address] HEMATOLOGY Basophils 1.2 % 0.0 - 1.0 02/[address] HEMATOLOGY Eosinophils 2.3 % 0.0 - 4.0 02/[address] HEMATOLOGY Lymphocytes # 1.8 K/CMM 1.0 - 5.5 02/[address] HEMATOLOGY Segs-Bands # 1.5 K/CMM 1.5 - 8.1 02/[address] HEMATOLOGY Monocytes # 0.2 K/CMM 0.0 - 0.8 02/12 [facility] HEMATOLOGY RBC Morph Normal 02/12 [facility] (02/12/17 4:25 AM) [place] HEMATOLOGY Segs 42.1 % 45.0 - 02/12 75.0 [facility] HEMATOLOGY Plt Morph Normal 02/12 [facility] (02/12/17 4:25 AM) [place] HEMATOLOGY Lymphocytes 48.6 % 20.0 - 02/12 40.0 [facility] HEMATOLOGY Monocytes 5.8 % 2.0 - 12.0 02/12 [facility] HEMATOLOGY MCH 28.9 pg 27.0 - 02/12 31.0 [facility] HEMATOLOGY RDW 13.8 % 11.5 - 02/12 14.5 [facility] HEMATOLOGY MCHC 35.0 g/dL 32.0 - 02/12 36.0 [facility] HEMATOLOGY Platelet 169 K/CMM 133 - 450 02/12 [facility] HEMATOLOGY MPV 7.4 fL 7.4 - 10.4 02/12 [facility] HEMATOLOGY WBC 3.6 K/CMM 3.7 - 10.4 02/12 [facility] HEMATOLOGY Hgb 14.4 g/dL 14.0 - 02/12 18.0 [facility] HEMATOLOGY RBC 4.98 M/CMM 4.70 - 02/12 6.10 [facility] HEMATOLOGY Hct 41.1 % 42.0 - 02/12 54.0 [facility] HEMATOLOGY MCV 82.5 fL 80.0 - 02/12 94.0 [facility] LIPIDS LDL See Note <=99 mg/dL 02/12 Result [facility] (Calculated) mg/dL Comment: LDL [facility] cholesterol Center cannot be calculated due to very high triglycerides (>400 mg/dL). Recommend Direct LDL if clinically indicated. LIPIDS VLDL See Note 4 02/12 Result Comment: VLDL Medical *NA* - Cholesterol Center level cannot (02/12/17 4:25 AM) be accurately calculated due to very high triglycerides (>400 mg/dL). LIPIDS Trig 526 mg/dL <=149 02/12 [facility] mg/dL /2016 [facility] LIPIDS Chol 158 mg/dL <=199 02/12 [facility] mg/dL [facility] LIPIDS HDL 22 mg/dL >=61 mg/dL 02/12 [facility] [address] [place] [address] LIPIDS CHD Risk 7.18 4.00 - 02/12 [facility] 7.30 [facility] CHEM PANEL Magnesium Lvl 2.1 mg/dL 1.8 - 2.4 02/[address] CHEM PANEL Phosphorus 2.9 mg/dL 2.5 - 4.5 02/11 [facility]2016 [facility] CHEM PANEL eGFR 113 02/11 Result Comment: The eGFR is calculated using the CKD-EPI formula. In most young, healthy individuals the eGFR will be >90 mL/ min/1.73m2. The eGFR declines with age. An eGFR of 60-89 may be normal in [facility] mL/min/1.7 some populations, particularly the elderly, for whom the CKD-EPI formula has not been extensively validated. Use of the eGFR is not recommended in the following populations: [address] Individuals with unstable creatinine concentrations, including patients and those with serious co-morbid conditions. Patients with extremes in muscle mass or diet. The data above are obtained from the National Kidney Disease Education Program (NKDEP) which additionally recommends that when the eGFR is used in patients with extremes of body mass index for purposes of drug dosing, the eGFR should be multiplied by the estimated BMI. CHEM PANEL Calcium Lvl 9.0 mg/dL 8.5 - 10.5 02/[address] [place] [address] CHEM PANEL Sodium Lvl 134 meq/L 135 - 145 02/[address] CHEM PANEL Creatinine 0.82 mg/dL 0.50 - 02/11 [facility] Lvl 1.40 [facility] CHEM PANEL BUN 9 mg/dL 7 - 22 02/[address] CHEM PANEL Glucose Lvl 155 mg/dL 70 - 99 02/[address] CHEM PANEL CO2 29 meq/L 24 - 32 02/[address] CHEM PANEL Chloride Lvl 101 meq/L 95 - 109 02/[address] CHEM PANEL Potassium Lvl 3.8 meq/L 3.5 - 5.1 02/[address] CHEM PANEL AGAP 7.8 meq/L 10.0 - 02/11 [facility] 20.0 [facility] HEMATOLOGY Basophils # 0.1 K/CMM 0.0 - 0.2 02/11 [facility] HEMATOLOGY Eosinophils # 0.1 K/CMM 0.0 - 0.5 02/11 [facility] HEMATOLOGY Monocytes 4.2 % 2.0 - 12.0 02/11 [facility] HEMATOLOGY Lymphocytes 28.2 % 20.0 - 08/ [place] 40.0 /2016 [facility] HEMATOLOGY Segs 65.0 % 45.0 - 08 [place] 75.0 [facility] HEMATOLOGY Basophils 0.9 % 0.0 - 1.0 02/11 [facility] HEMATOLOGY Lymphocytes # 1.6 K/CMM 1.0 - 5.5 02/11 [facility] HEMATOLOGY Segs-Bands # 3.8 K/CMM 1.5 - 8.1 02/11 [facility] HEMATOLOGY Monocytes # 0.2 K/CMM 0.0 - 0.8 02/11 [facility] HEMATOLOGY Eosinophils 1.7 % 0.0 - 4.0 02/11 [facility] HEMATOLOGY MPV 7.1 fL 7.4 - 10.4 02/11 [facility] HEMATOLOGY Platelet 186 K/CMM 133 - 450 02/11 [facility] HEMATOLOGY MCV 82.8 fL 80.0 - 02/11 [place] 94.0 [facility] HEMATOLOGY MCH 28.6 pg 27.0 - 02/11 [place] 31.0 [facility] HEMATOLOGY WBC 5.8 K/CMM 3.7 - 10.4 02/11 [facility] HEMATOLOGY Hgb 14.6 g/dL 14.0 - 08 [place] 18.0 [facility] HEMATOLOGY Hct 42.2 % 42.0 - 08 [place] 54.0 [facility] HEMATOLOGY RBC 5.10 M/CMM 4.70 - 08 [place] 6.10 [facility] HEMATOLOGY RDW 13.7 % 11.5 - 08 [place] 14.5 [facility] HEMATOLOGY MCHC 34.6 g/dL 32.0 - 02/11 [place] 36.0 [facility] PARATHYROID Ca Norm WB 1.08 1.05 - 08 [place] PROFILE mMol/L 1.25 /2016 [facility] PARATHYROID Ca Ion WB 1.13 1.05 - 02/11 [facility] PROFILE mMol/L 1. [facility] ELECTROLYTE Potassium Lvl 4.1 meq/L 3.5 - 5.1 02/10 [facility] S [facility] LIPIDS VLDL See Note 5 02/10 Result Comment: VLDL Medical *NA* - Cholesterol Center level cannot (02/10/17 8:51 AM) be accurately calculated due to very high triglycerides (>400 mg/dL). LIPIDS HDL 19 mg/dL >=61 mg/dL 02/10 [facility] LIPIDS Chol 162 mg/dL <=199 02/10 [facility] mg/dL [facility] LIPIDS Trig 598 mg/dL <=149 02/10 [facility] mg/dL [facility] LIPIDS CHD Risk 8.53 4.00 - 02/10 [facility] 7.30 [facility] LIPIDS LDL See Note <=99 mg/dL 02/10 Result [facility] (Calculated) mg/dL Comment: LDL [facility] cholesterol [place] cannot be calculated due to very high triglycerides (>400 mg/dL). Recommend Direct LDL if clinically indicated. CHEM PANEL eGFR 116 02/10 Result Comment: The eGFR is calculated using the CKD-EPI formula. In most young, healthy individuals the eGFR will be >90 mL/ min/1.73m2. The eGFR declines with age. An eGFR of 60-89 may be normal in [facility] mL/min/1.7 /2016 some populations, particularly the elderly, for whom the CKD-EPI formula has not been extensively validated. Use of the eGFR is not recommended in the following populations: [address] Individuals with unstable creatinine concentrations, including patients and those with serious co-morbid conditions. Patients with extremes in muscle mass or diet. The data above are obtained from the National Kidney Disease Education Program (NKDEP) which additionally recommends that when the eGFR is used in patients with extremes of body mass index for purposes of drug dosing, the eGFR should be multiplied by the estimated BMI. CHEM PANEL CO2 27 meq/L 24 - 32 02/10 [facility] CHEM PANEL Chloride Lvl 102 meq/L 95 - 109 02/10 [facility] CHEM PANEL AGAP 12.1 meq/L 10.0 - 02/10 [facility] 20.0 [facility] CHEM PANEL Creatinine 0.77 mg/dL 0.50 - 08 [facility] Lvl 1.40 /2016 [facility] CHEM PANEL Sodium Lvl 136 meq/L 135 - 145 02/[address] CHEM PANEL BUN 9 mg/dL 7 - 22 02/[address] CHEM PANEL Glucose Lvl 137 mg/dL 70 - 99 02/[address] CHEM PANEL Magnesium Lvl 2.1 mg/dL 1.8 - 2.4 02/[address] [place] [address] CHEM PANEL Phosphorus 3.7 mg/dL 2.5 - 4.5 02/[address] [place] [address] HEMATOLOGY Segs 60.2 % 45.0 - 08 [facility] 75.0 [facility] HEMATOLOGY Lymphocytes 32.1 % 20.0 - 08 40.0 [facility] HEMATOLOGY Segs-Bands # 2.6 K/CMM 1.5 - 8.1 02/[address] HEMATOLOGY Basophils 0.9 % 0.0 - 1.0 02/[address] [place] [address] HEMATOLOGY Eosinophils 2.1 % 0.0 - 4.0 02/[address] [place] [address] HEMATOLOGY Monocytes 4.7 % 2.0 - 12.0 02/10 [facility] [address] [place] [address] HEMATOLOGY Lymphocytes # 1.4 K/CMM 1.0 - 5.5 02/10 [facility] HEMATOLOGY Eosinophils # 0.1 K/CMM 0.0 - 0.5 02/10 [facility] [address] [place] [address] HEMATOLOGY Monocytes # 0.2 K/CMM 0.0 - 0.8 02/10 [facility] HEMATOLOGY RDW 13.8 % 11.5 - 08 14.5 [facility] HEMATOLOGY Platelet 152 K/CMM 133 - 450 02/10 [facility] HEMATOLOGY MPV 7.2 fL 7.4 - 10.4 02/10 [facility] [address] [place] [address] HEMATOLOGY Hct 38.7 % 42.0 - 02/10 54.0 [facility] HEMATOLOGY RBC 4.65 M/CMM 4.70 - 02/10 [place] 6.10 [facility] HEMATOLOGY Hgb 13.2 g/dL 14.0 - 08 18.0 [facility] HEMATOLOGY MCH 28.3 pg 27.0 - 08 [facility] [place] 31.0 [facility] HEMATOLOGY MCV 83.1 fL 80.0 - 02/10 [facility] 94.0 [facility] HEMATOLOGY MCHC 34.0 g/dL 32.0 - 02/10 36.0 [facility] HEMATOLOGY WBC 4.3 K/CMM 3.7 - 10.4 02/10 /2016 [facility] PARATHYROID Ca Norm WB 1.09 1.05 - 02/10 [facility] PROFILE mMol/L 08.05 [facility] PARATHYROID Ca Ion WB 1.12 1.05 - 02/10 [facility] PROFILE mMol/L 08.05 [facility] SPECIAL Hgb A1C 9.3 % <=5.6 % 02/10 [facility] CHEMISTRY /2016 [facility] LIPIDS Trig 499 mg/dL <=149 02/10 [facility] mg/dL [facility] LIPIDS VLDL See Note 6 02/10 Result Comment: VLDL Medical *NA* - Cholesterol Center level cannot (02/09/17 11:04 PM) be accurately calculated due to very high triglycerides (>400 mg/dL). LIPIDS LDL See Note <=99 mg/dL 02/10 Result [facility] (Calculated) mg/dL Comment: LDL [facility] cannot be calculated due to very high triglycerides (>400 mg/dL). Recommend Direct LDL if clinically indicated. LIPIDS CHD Risk 7.33 4.00 - 02/10 [facility] 7.30 [facility] LIPIDS HDL 21 mg/dL >=61 mg/dL 02/10 [facility] LIPIDS Chol 154 mg/dL <=199 02/10 [facility] mg/dL [facility] PARATHYROID Ca Norm WB 1.11 1.05 - 02/09 [facility] PROFILE mMol/L 08.05 [facility] PARATHYROID Ca Ion WB 1.10 1.05 - 02/09 [facility] PROFILE mMol/L . [facility] CHEM PANEL A/G Ratio 1.2 0.7 - 1.6 02/09 [facility] CHEM PANEL ALT 23 unit/L 0 - 65 02/09 [facility] CHEM PANEL AST 8 unit/L 0 - 37 02/09 [facility] CHEM PANEL Globulin 3.3 g/dL 2.7 - 4.2 02/09 [facility] CHEM PANEL B/C Ratio 30 6 - 25 02/[address] CHEM PANEL Total Protein 7.1 g/dL 6.4 - 8.4 02/[address] CHEM PANEL Albumin Lvl 3.8 g/dL 3.5 - 5.0 02/[address] CHEM PANEL Bili Total 1.1 mg/dL 0.2 - 1.3 02/[address] CHEM PANEL Alk Phos 63 unit/L 39 - 136 02/[address] URINE AND UA Mucus None Seen None Seen 02/[address] (02/08/17 5:41 PM) [place] URINE AND UA Sq Epi Rare /LPF Few /LPF 02/[address] URINE AND UA Bacteria Occasional None Seen 02/08 [facility] /HPF /HPF [address] URINE AND UA WBC None Seen None Seen 02/[address] (02/08/17 5:41 PM) [place] URINE AND UA RBC None Seen 0 - 2 02/[address] (02/08/17 5:41 PM) [place] URINE AND UA Leuk Est Negative Negative 02/[address] (02/08/17 5:41 PM) [place] URINE AND UA pH 5.5 5.0 - 8.0 02/[address] URINE AND UA Spec Grav 1.036 <=1.030 02/[address] URINE AND UA Turbidity Clear Clear 02/08 [facility] (02/08/17 5:41 PM) [place] URINE AND UA Nitrite Negative Negative 02/08 [facility] (02/08/17 5:41 PM) [place] URINE AND UA 0.2 EU/dL 0.1 - 1.0 02/08 [facility] Urobilinogen /[address] [place] [address] URINE AND UA Blood Negative Negative 02/[address] (02/08/17 5:41 PM) [place] URINE AND UA Color Yellow Yellow 02/08 [facility] [address] [place] [address] *NA* [place] (02/08/17 5:41 PM) URINE AND UA Ketones Trace Negative 02/[address] *ABN* [place] (02/08/17 5:41 PM) URINE AND UA Bili Negative Negative 02/08 [place] [address] Medical *NA* Center (02/08/17 5:41 PM) URINE AND UA Protein Negative Negative 02/08 [facility] (02/08/17 5:41 PM) Center URINE AND UA Glucose >=1000 Negative 02/08 [facility] STOOL mg/dL mg/dL /2016 [facility] CARDIAC Troponin-I null 0.00 - 02/08 [facility] ENZYMES 0.40 [facility] CHEM PANEL Lactic Acid 0.8 mmol/L 0.5 - 2.2 02/08 [facility] CHEM PANEL A/G Ratio 1.2 0.7 - 1.6 02/[address] CHEM PANEL Bili Total 1.3 mg/dL 0.2 - 1.3 02/[address] CHEM PANEL Alk Phos 60 unit/L 39 - 136 02/[address] CHEM PANEL Bili Indirect 1.2 mg/dL 0.0 - 1.0 02/[address] CHEM PANEL Bili Direct 0.1 mg/dL 0.0 - 0.3 02/[address] CHEM PANEL Total Protein 7.3 g/dL 6.4 - 8.4 02/[address] CHEM PANEL Globulin 3.3 g/dL 2.7 - 4.2 02/[address] CHEM PANEL Albumin Lvl 4.0 g/dL 3.5 - 5.0 02/[address] CHEM PANEL ASPARTATE 5 unit/L 0 - 37 02/08 [facility] TRANSAMINASE [address] CHEM PANEL ALANINE 20 unit/L 0 - 65 02/08 [facility] AMINOTRANSFER [facility] CHEM PANEL Lipase Lvl 232 unit/L 73 - 393 02/[address] HEMATOLOGY Basophils # 0.1 K/CMM 0.0 - 0.2 02/[address] Chest 1view Chest 1view EXAM: XR CHEST 1 VIEW 02/08 - [facility] This report was dictated by a Hvac R Tech/Fellow. I have personally reviewed the images as Center well as the Resident's interpretation and agree with the findings. DATE: 02/08/2017 4:32 PM CDT Read by: Victor Manuel Jones MD Resident: Victor Manuel Jones MD Dictated Date/time: 02/08/17 17:05 Electronically Signed by: Antione Natarajan MD 02/08/17 17:40 FINAL REPORT INDICATION: - epigastric pain COMPARISON: Chest 2 views 04/27/2011. 01/15/2017 CT of the abdomen. TECHNIQUE: AP chest. FINDINGS: Lines/tubes/devices: None. Lungs and pleura: The lungs are clear without focal opacity. There is no pleural effusion or pneumothorax. Heart and mediastinum: The heart size is normal for technique. The mediastinal contours are normal. Bones and soft tissues: No acute bony abnormality is identified. No subdiaphragmatic air is identified. IMPRESSION: 1. No acute cardiopulmonary abnormality. 2. No subdiaphragmatic air is seen. UT SECTION: ER CHEM PANEL eGFR 117 01/18 Result Comment: The eGFR is calculated using the CKD-EPI formula. In most young, healthy individuals the eGFR will be >90 mL/ min/1.73m2. The eGFR declines with age. An eGFR of 60-89 may be normal in [facility] mL/min/1. some populations, particularly the elderly, for whom the CKD-EPI formula has not been extensively validated. Use of the eGFR is not recommended in the following populations: [address] Individuals with unstable creatinine concentrations, including patients and those with serious co-morbid conditions. Patients with extremes in muscle mass or diet. The data above are obtained from the National Kidney Disease Education Program (NKDEP) which additionally recommends that when the eGFR is used in patients with extremes of body mass index for purposes of drug dosing, the eGFR should be multiplied by the estimated BMI. CHEM PANEL Calcium Lvl 9.0 mg/dL 8.5 - 10.5 01/18 [facility] CHEM PANEL AGAP 13.1 meq/L 10.0 - 07 [facility] 20.0 [facility] CHEM PANEL Chloride Lvl 102 meq/L 95 - 109 01/18 [facility] CHEM PANEL CO2 26 meq/L 24 - 32 01/18 [facility] CHEM PANEL Potassium Lvl 4.1 meq/L 3.5 - 5.1 01/18 [facility] CHEM PANEL Creatinine 0.76 mg/dL 0.50 - 01/18 [facility] Lvl 1.40 [facility] CHEM PANEL Sodium Lvl 137 meq/L 135 - 145 01/[address] [place] [address] CHEM PANEL Glucose Lvl 199 mg/dL 70 - 99 01/[address] [place] [address] CHEM PANEL BUN 13 mg/dL 7 - 22 01/[address] HEMATOLOGY Basophils 1.0 % 0.0 - 1.0 01/[address] HEMATOLOGY Eosinophils 1.6 % 0.0 - 4.0 01/[address] [place] [address] HEMATOLOGY Monocytes 5.6 % 2.0 - 12.0 01/[address] [place] [address] HEMATOLOGY Lymphocytes 29.9 % 20.0 - 01/18 [place] 40.0 [facility] HEMATOLOGY Segs 61.9 % 45.0 - 01/18 [place] 75.0 [facility] HEMATOLOGY Segs-Bands # 2.8 K/CMM 1.5 - 8.1 01/[address] HEMATOLOGY Eosinophils # 0.1 K/CMM 0.0 - 0.5 01/[address] HEMATOLOGY Monocytes # 0.3 K/CMM 0.0 - 0.8 01/[address] [place] [address] HEMATOLOGY Lymphocytes # 1.4 K/CMM 1.0 - 5.5 01/[address] [place] [address] HEMATOLOGY MPV 7.6 fL 7.4 - 10.4 01/[address] [place] [address] HEMATOLOGY Platelet 144 K/CMM 133 - 450 01/[address] HEMATOLOGY RDW 13.8 % 11.5 - 07 14.5 [facility] HEMATOLOGY MCHC 34.3 g/dL 32.0 - 01/18 36.0 [facility] HEMATOLOGY Hgb 12.8 g/dL 14.0 - 01/18 18.0 [facility] HEMATOLOGY Hct 37.4 % 42.0 - 01/18 [place] 54.0 [facility] HEMATOLOGY MCH 28.6 pg 27.0 - 07 31.0 [facility] HEMATOLOGY MCV 83.3 fL 80.0 - 01/18 94.0 [facility] HEMATOLOGY RBC 4.48 M/CMM 4.70 - 07 [place] 6.10 [facility] HEMATOLOGY WBC 4.6 K/CMM 3.7 - 10.4 01/18 [place] /[address] [place] [address] LIPIDS Trig 460 mg/dL <=149 01/18 [facility] mg/dL [facility] ELECTROLYTE AGAP 11.0 meq/L 10.0 - 01/17 [facility] 20.0 [facility] ELECTROLYTE Calcium Lvl 8.8 mg/dL 8.5 - 10.5 01/[address] ELECTROLYTE Glucose Lvl 293 mg/dL 70 - 99 01/[address] ELECTROLYTE BUN 11 mg/dL 7 - 22 01/[address] ELECTROLYTE Creatinine 0.81 mg/dL 0.50 - 01/17 [facility] Lvl 1.40 [facility] ELECTROLYTE Sodium Lvl 135 meq/L 135 - 145 01/[address] ELECTROLYTE Chloride Lvl 100 meq/L 95 - 109 01/[address] ELECTROLYTE CO2 28 meq/L 24 - 32 01/[address] ELECTROLYTE Potassium Lvl 4.0 meq/L 3.5 - 5.1 01/[address] ELECTROLYTE eGFR 113 01/17 Result Comment: The eGFR is calculated using the CKD-EPI formula. In most young, healthy individuals the eGFR will be > 90 mL/min/1.73m2. The eGFR declines with age. An eGFR of 60-89 may be normal in [facility] mL/min/1. some populations, particularly the elderly, for whom the CKD-EPI formula has not been extensively validated. Use of the eGFR is not recommended in the following populations: [address] Individuals with unstable creatinine concentrations, including patients and those with serious co-morbid conditions. Patients with extremes in muscle mass or diet. The data above are obtained from the National Kidney Disease Education Program (NKDEP) which additionally recommends that when the eGFR is used in patients with extremes of body mass index for purposes of drug dosing, the eGFR should be multiplied by the estimated BMI. HEMATOLOGY INR 0.98 0.85 - 01/17 [facility] 1.17 [facility] HEMATOLOGY Thrombin Time 14.3 s 15.0 - 01/17 [facility] 21.2 [facility] HEMATOLOGY D-Dimer 0.42 ug/mL 01/17 [facility] FEU [facility] HEMATOLOGY Fibrinogen 550 mg/dL 230 - 510 01/17 [facility] HEMATOLOGY PTT 33.5 s 22.9 - 01/17 [place] 35.8 /2016 [facility] HEMATOLOGY PT 13.2 s 12.0 - 01/17 14.7 /2016 [facility] HEMATOLOGY WBC 4.3 K/CMM 3.7 - 10.4 07 [facility] HEMATOLOGY RBC 4.62 M/CMM 4.70 - 01/17 [place] 6.10 /2016 [facility] HEMATOLOGY MCHC 34.4 g/dL 32.0 - 01/17 36.0 [facility] HEMATOLOGY MCH 28.6 pg 27.0 - 07 31.0 [facility] HEMATOLOGY Hgb 13.2 g/dL 14.0 - 01/17 18.0 [facility] HEMATOLOGY Hct 38.3 % 42.0 - 01/17 54.0 [facility] HEMATOLOGY MCV 83.0 fL 80.0 - 01/17 [facility] 94.0 [facility] HEMATOLOGY RDW 13.8 % 11.5 - 07 14.5 [facility] HEMATOLOGY MPV 7.3 fL 7.4 - 10.4 01/17 [facility] HEMATOLOGY Platelet 143 K/CMM 133 - [address] [place] [address] HEMATOLOGY Basophils 1.0 % 0.0 - 1.0 01/17 [facility] HEMATOLOGY Lymphocytes 32.0 % 20.0 - 07/09 [place] 40.0 /2016 [facility] HEMATOLOGY Eosinophils 1.8 % 0.0 - 4.0 01/[address] [place] [address] HEMATOLOGY Monocytes 5.9 % 2.0 - 12.0 01/17 [facility] HEMATOLOGY Segs 59.3 % 45.0 - 07/ [place] 75.0 [facility] HEMATOLOGY Monocytes # 0.3 K/CMM 0.0 - 0.[address] [place] [address] HEMATOLOGY Lymphocytes # 1.4 K/CMM 1.0 - 5.5 01/17 [facility] HEMATOLOGY Eosinophils # 0.1 K/CMM 0.0 - 0.5 01/17 [facility] HEMATOLOGY Segs-Bands # 2.5 K/CMM 1.5 - 8.1 01/[address] [place] [address] LIPIDS Trig 646 mg/dL <=149 01/17 [facility] mg/dL [facility] PARATHYROID Ca Norm WB 1.10 1.05 - 01/17 [facility] PROFILE mMol/L 1. [facility] PARATHYROID Ca Ion WB 1.12 1.05 - 01/17 [facility] PROFILE mMol/L 1. [facility] CHEM PANEL eGFR 117 01/16 Result Comment: The eGFR is calculated using the CKD-EPI formula. In most young, healthy individuals the eGFR will be >90 mL/ min/1.73m2. The eGFR declines with age. An eGFR of 60-89 may be normal in [facility] mL/min/1.7 some populations, particularly the elderly, for whom the CKD-EPI formula has not been extensively validated. Use of the eGFR is not recommended in the following populations: [address] Individuals with unstable creatinine concentrations, including patients and those with serious co-morbid conditions. Patients with extremes in muscle mass or diet. The data above are obtained from the National Kidney Disease Education Program (NKDEP) which additionally recommends that when the eGFR is used in patients with extremes of body mass index for purposes of drug dosing, the eGFR should be multiplied by the estimated BMI. CHEM PANEL CO2 27 meq/L 24 - 32 01/16 [facility] [address] [place] [address] CHEM PANEL Calcium Lvl 8.7 mg/dL 8.5 - 10.5 01/[address] CHEM PANEL Chloride Lvl 103 meq/L 95 - 109 01/[address] CHEM PANEL Glucose Lvl 225 mg/dL 70 - 99 01/[address] CHEM PANEL BUN 8 mg/dL 7 - 22 01/[address] CHEM PANEL Creatinine 0.76 mg/dL 0.50 - 01/16 [facility] Lvl 1.40 [facility] CHEM PANEL Sodium Lvl 138 meq/L 135 - 145 01/[address] CHEM PANEL Potassium Lvl 3.9 meq/L 3.5 - 5.1 01/[address] CHEM PANEL AGAP 11.9 meq/L 10.0 - 01/16 [facility] 20.0 [facility] HEMATOLOGY Basophils 0.6 % 0.0 - 1.0 01/[address] HEMATOLOGY Segs-Bands # 3.2 K/CMM 1.5 - 8.1 01/[address] [facility] HEMATOLOGY Lymphocytes # 1.4 K/CMM 1.0 - 5.5 01/16 [facility] HEMATOLOGY Monocytes # 0.3 K/CMM 0.0 - 0.8 01/16 [facility] HEMATOLOGY Segs 63.4 % 45.0 - 01/16 75.0 [facility] HEMATOLOGY Eosinophils 0.9 % 0.0 - 4.0 01/16 [facility] HEMATOLOGY Lymphocytes 28.5 % 20.0 - 01/16 [place] 40.0 [facility] HEMATOLOGY Monocytes 6.6 % 2.0 - 12.0 01/16 [facility] HEMATOLOGY RBC 4.35 M/CMM 4.70 - 01/16 6.10 [facility] HEMATOLOGY WBC 5.1 K/CMM 3.7 - 10.4 01/[address] [place] [address] HEMATOLOGY Hgb 12.5 g/dL 14.0 - 01/16 18.0 [facility] HEMATOLOGY MPV 7.3 fL 7.4 - 10.4 01/16 [facility] HEMATOLOGY Platelet 109 K/CMM 133 - 450 01/16 [facility] HEMATOLOGY MCHC 34.8 g/dL 32.0 - 01/16 36.0 [facility] HEMATOLOGY MCH 28.8 pg 27.0 - 01/16 31.0 [facility] HEMATOLOGY RDW 13.7 % 11.5 - 01/16 14.5 [facility] HEMATOLOGY MCV 82.7 fL 80.0 - 01/16 94.0 [facility] HEMATOLOGY Hct 36.0 % 42.0 - 01/16 54.0 [facility] LIPIDS Trig 722 mg/dL <=149 01/16 mg/dL [facility] HEMATOLOGY Eosinophils # 0.1 K/CMM 0.0 - 0.5 01/15 [facility] Abd Abd EXAM: CT ABDOMEN WITHOUT AND WITH CONTRAST 01/15 - [facility] Pancreatic Pancreatic /2016 - Medical Protocol Protocol w/wo This report was dictated by a Hvac R Tech/Fellow. I have personally reviewed the images as Center w/wo contrast CT well as the Resident's interpretation and agree with the findings. contrast CT DATE: 01/15/2017 4:00 AM CDT Read by: Dakota Duron MD Resident: Dakota Duron MD Dictated Date/time: 01/15/17 08:47 Electronically Signed by: Alize Morelos MD 01/15/17 11:09 FINAL REPORT INDICATION: post pancreatitis 12/20/2016 COMPARISON: 01/12/2017 and 05/16/2015 TECHNIQUE: Volumetric CT acquisition of the abdomen before and after the intravenous administration of contrast. Axial, coronal and sagittal reconstructions. Postcontrast phases: Arterial, portal venous, and delayed IV contrast: 95 mL Omnipaque 350 Enteric contrast: None. DLP: 2210 mGy-cm FINDINGS: Lines, tubes and hardware: None. Lower thorax: Clear. Liver: Normal. Biliary tree: No intra- or extrahepatic biliary ductal dilation. Gallbladder: Normal. No CT evidence of gallstones. Pancreas: A 1.4 x 1.2 x 0.8 cm hypodensity in the superior uncinate process (series 6, image 72) is slightly decreased in size compared to 2016 and appears more well-defined compared to CT 015. Surrounding pancreatic edema and peripancreatic fat stranding is slightly improved. A 5.0 x 4.9 x 4.3 cm simple fluid density lesion in the pancreatic tail is unchanged since 01/12/2017 and increas ed in size since 05/16/2015. No pancreatic ductal dilatation seen. Spleen: The spleen is enlarged, measuring 17.2 cm. Numerous perisplenic varices are present. Adrenals: Normal. Kidneys and ureters: Normal. Gastrointestinal tract: Normal caliber. The previously seen duodenal wall thickening and periduodenal fat stranding has improved. Peritoneum, mesentery and retroperitoneum: Normal. No free air, ascites or loculated fluid. Lymph nodes: Numerous subcentimeter mesenteric and retroperitoneal lymph nodes are present. Vasculature: Multiple enlarged perisplenic and perigastric varices are present. Bones: No acute abnormality. Soft tissues: Normal. IMPRESSION: 1. 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 2. Improved pancreatic head edema and peripancreatic fat stranding, consistent with improving pancreatitis. 3. Unchanged cystic lesion in the tail the pancreas, however significantly increased in size from CT 05/16/2015. 4. Splenomegaly and perisplenic and perigastric varices, consistent with portal hypertension. RECOMMENDATIONS: None. LIPIDS VLDL See Note 2 01/14 Result Comment: VLDL Medical *NA* - Cholesterol Center level cannot (01/14/17 3:25 AM) be accurately calculated due to very high triglycerides (>400 mg/dL). LIPIDS LDL See Note <=99 mg/dL 01/14 Result [facility] (Calculated) mg/dL Comment: LDL [facility] cannot be calculated due to very high triglycerides (>400 mg/dL). Recommend Direct LDL if clinically indicated. LIPIDS HDL 14 mg/dL >=61 mg/dL 01/14 [facility] LIPIDS Chol 223 mg/dL <=199 01/14 [facility] mg/dL [facility] LIPIDS CHD Risk 15.93 4.00 - 01/14 [facility] 7.30 [facility] CHEM PANEL Lipase Lvl 171 unit/L 73 - 393 01/13 [facility]2016 [facility] CHEM PANEL Magnesium Lvl 2.0 mg/dL 1.8 - 2.4 01/[address] CHEM PANEL Bili Total 0.8 mg/dL 0.2 - 1.3 01/[address] CHEM PANEL Alk Phos 59 unit/L 39 - 136 01/[address] CHEM PANEL AST 24 unit/L 0 - 37 01/[address] CHEM PANEL ALT 46 unit/L 0 - 65 01/[address] CHEM PANEL Albumin Lvl 2.9 g/dL 3.5 - 5.0 01/13 [facility]2016 [facility] CHEM PANEL Total Protein 6.0 g/dL 6.4 - 8.4 01/[address] CHEM PANEL A/G Ratio 0.9 0.7 - 1.6 01/13 [facility]2016 [facility] CHEM PANEL B/C Ratio 8 6 - 25 01/[address] CHEM PANEL Globulin 3.1 g/dL 2.7 - 4.2 01/[address] TUMOR AFP TM 1.9 ng/mL 0.0 - 11.0 01/13 [facility] Scrotal/Priyanka Scrotal/Testi EXAM: US SCROTUM WITH DOPPLER 01/13 - [facility] ticle w hi w Doppler /2016 - Medical Doppler US US Center DATE: 01/12/2017 5:10 PM CDT Read by: Santo Carlson Dictated Date/time: 01/13/17 13:25 Electronically Signed by: Santo Carlson 01/13/17 13:29 FINAL REPORT INDICATION: pain in R testicle - pain in R testicle ADDITIONAL INFORMATION: None. COMPARISON: CT dated 01/12/2017 TECHNIQUE: Multiplanar grayscale, color Doppler and spectral Doppler ultrasound images of the scrotum and testes. FINDINGS: Right testicle: Size: 5.1 x 2.7 x 3 cm Echogenicity: Normal. Calcifications: None. Cysts: None. Masses: None. Doppler: Normal. Right epidydimis: Size: 0.6 x 1 x 0.8 cm Echogenicity: Normal. Calcifications: None. Cysts: A 0.2 x 0.2 x 0.2 cm cyst seen in the head of the right epididymis. Masses: None. Doppler: Normal. Right hydrocele: Small Right varicocele: None. Right hernia: None. Left testicle: Size: 4.6 x 3 x 3.1 cm Echogenicity: Normal. Cysts: None. Masses: None. Doppler: Normal. Left epidydimis: Size: 0.7 x 1 x 0.8 cm Echogenicity: Normal. Cysts: None Masses: None. Doppler: Normal. Left hydrocele: Small Left varicocele: None. Left hernia: None. No superficial soft tissue modalities seen along the dorsum of the penis in the scanned region. IMPRESSION: 1. Small bilateral hydroceles. Otherwise, unremarkable examination. 2. Corresponding to the site of patient's pain at the dorsal aspect of base of penis, no superficial soft tissue abnormality seen. CHEM PANEL Phosphorus 2.5 mg/dL 2.5 - 4.5 01/[address] CHEM PANEL Magnesium Lvl 1.7 mg/dL 1.8 - 2.4 01/[address] PARATHYROID Ca Ion WB 1.09 1. - 01/13 [facility] PROFILE mMol/L 1. [facility] PARATHYROID Ca Norm WB 1.03 . - 01/13 [facility] PROFILE mMol/L 1. [facility] TUMOR CA 19-9 20.0 0.0 - 35.0 01/13 [facility] MARKERS unit/mL /2016 [facility] TUMOR CA 125 11.3 0.0 - 35.0 01/13 [facility] MARKERS unit/mL /2016 [facility] TUMOR CEA 1.2 ng/mL 0.0 - 3.0 01/13 [facility] MARKERS /2016 [facility] CHEM PANEL Lactic Acid 0.5 mMol/L 0.5 - 2.2 01/12 Result [facility] Lvl Comment: [facility] sample CHEM PANEL Phosphorus 3.2 mg/dL 2.5 - 4.5 01/[address] CHEM PANEL Magnesium Lvl 2.0 mg/dL 1.8 - 2.4 01/[address] Abdomen RUQ Abdomen RUQ EXAM: US ABDOMEN LIMITED 01/12 - [facility] - [facility] DATE: 01/12/2017 at 0902 hours Read by: Hong Blair MD Dictated Date/time: 01/12/17 10:52 Electronically Signed by: Hong Blair MD 01/12/17 10:54 FINAL REPORT INDICATION: - pancreatitis ADDITIONAL INFORMATION: None. COMPARISON: None. TECHNIQUE: Multiplanar grayscale and color Doppler ultrasound of the right upper quadrant. FINDINGS: Liver: Craniocaudal length: 21.4 cm. Echogenicity: Normal. Surface: Normal. Mass (size and location): None. Main portal vein: Caliber: 1.1 cm. Flow: Hepatopetal. Bile ducts: Common bile duct diameter: 0.5 cm. Intrahepatic ducts: Normal. Gallbladder: Surgically absent. Pancreas: Head and uncinate process: Not seen. Body: Normal. Tail: Not seen. Spleen: 18.4 x 6.6 x 6.5 cm. Right kidney: Size: 12.7 x 5.2 x 4.9 cm. Hydronephrosis: None. Echogenicity: Normal. Calculi: None. Cysts/Masses: None. Free fluid: None. Other: None. IMPRESSION: 1. Hepatosplenomegaly. CHEM PANEL LDH 296 unit/L 98 - 192 01/[address] CHEM PANEL Phosphorus 2.2 mg/dL 2.5 - 4.5 01/[address] CHEM PANEL Ketone 0.13 <=0.27 01/12 [facility] Quantitative mmol/L mmol/L /2016 [facility] PARATHYROID Ca Ion WB 1.11 1.05 - 01/12 [facility] PROFILE mMol/L 1. [facility] PARATHYROID Ca Norm WB 1.09 1.05 - 01/12 [facility] PROFILE mMol/L 1. [facility] URINE AND UA Bacteria Occasional None Seen 01/12 [facility] STOOL /HPF /HPF /2016 [facility] URINE AND UA WBC 0-2 /HPF None Seen 01/12 [facility] STOOL /HPF /2016 [facility] URINE AND UA RBC 0-2 /HPF 0 - 2 01/12 [facility] URINE AND UA Sq Epi None Seen Few 01/12 [facility] (01/11/17 11:19 PM) [facility] URINE AND UA Leuk Est Negative Negative 01/12 [facility] (01/11/17 11:19 PM) [facility] URINE AND UA Ketones Negative Negative 01/12 [facility] mg/dL mg/dL [facility] URINE AND UA Glucose >=1000 Negative 01/12 [facility] mg/dL mg/dL [facility] URINE AND UA Blood Negative Negative 01/12 [facility] (01/11/17 11:19 PM) [facility] URINE AND UA Bili Negative Negative 01/12 [facility] *NA* [facility] (01/11/17 11:19 PM) URINE AND UA 0.2 EU/dL 0.1 - 1.0 01/12 [facility] Urobilinogen /2016 [facility] URINE AND UA Nitrite Negative Negative 01/12 [facility] (01/11/17 11:19 PM) [facility] URINE AND UA Color Yellow Yellow 01/12 [facility] *NA* [facility] (01/11/17 11:19 PM) URINE AND UA Spec Grav 1.010 <=1.030 01/12 [facility] URINE AND UA pH 6.0 5.0 - 8.0 01/12 [facility] URINE AND UA Turbidity Clear Clear 01/12 [facility] (01/11/17 11:19 PM) [facility] URINE AND UA Protein Negative Negative 01/12 [facility] mg/dL mg/dL [facility] CHEM PANEL Lipase Lvl 1406 73 - 393 01/12 [facility] unit/L [facility] CHEM PANEL Bili Indirect 1.3 mg/dL 0.0 - 1.0 01/[address] CHEM PANEL Bili Direct 0.1 mg/dL 0.0 - 0.3 01/[address] CHEM PANEL Bili Total 1.4 mg/dL 0.2 - 1.3 01/[address] CHEM PANEL Alk Phos 84 unit/L 39 - 136 01/[address] CHEM PANEL Total Protein 7.9 g/dL 6.4 - 8.4 01/[address] CHEM PANEL A/G Ratio 1.0 0.7 - 1.6 01/[address] CHEM PANEL Globulin 4.0 g/dL 2.7 - 4.2 01/[address] CHEM PANEL Albumin Lvl 3.9 g/dL 3.5 - 5.0 01/[address] CHEM PANEL AST 36 unit/L 0 - 37 01/[address] CHEM PANEL ALT 67 unit/L 0 - 65 01/[address] HEMATOLOGY Basophils # 0.1 K/CMM 0.0 - 0.2 01/[address] HEMATOLOGY Plt Morph Normal 01/12 [facility] [address] [place] [address] (01/11/17 10:33 PM) [facility] HEMATOLOGY RBC Morph Normal 01/12 [facility] [address] [place] [address] (01/11/17 10:33 PM) [facility] Vital Signs Vital Sign Value Date Comments Source BMI Calculated 25.74 03/30/2017 [facility] Weight 81.364 03/30/2017 [facility] Height 177.8 cm 03/30/2017 [facility] Respitory Rate 16 03/30/2017 [facility] Heart Rate 105 03/30/2017 [facility] Systolic (mm Hg) 133 03/30/2017 [facility] Diastolic (mm Hg) 91 03/30/2017 [facility] Systolic (mm Hg) 132 02/12/2017 [facility] Diastolic (mm Hg) 89 02/12/2017 [facility] Temperature Oral (F) 98.1 F 02/12/2017 [facility] Respitory Rate 20 02/12/2017 [facility] Heart Rate 75 02/12/2017 [facility] Systolic (mm Hg) 117 02/12/2017 [facility] Diastolic (mm Hg) 70 02/12/2017 [facility] Heart Rate 75 02/12/2017 [facility] Respitory Rate 20 02/12/2017 [facility] Temperature Oral (F) 97.6 F 02/12/2017 [facility] Systolic (mm Hg) 131 02/12/2017 [facility] Diastolic (mm Hg) 90 02/12/2017 [facility] Respitory Rate 18 02/12/2017 [facility] Heart Rate 74 02/12/2017 [facility] Temperature Oral (F) 97.6 F 02/12/2017 [facility] Weight 82.813 02/09/2017 [facility] BMI Calculated 26.2 02/09/2017 [facility] Height 177.8 cm 02/09/2017 [facility] Height 177.8 cm 02/08/2017 [facility] Weight 81.818 02/08/2017 [facility] BMI Calculated 25.88 02/08/2017 [facility] Respitory Rate 16 02/02/2017 [facility] Systolic (mm Hg) 131 02/02/2017 [facility] Systolic (mm Hg) 147 01/18/2017 [facility] Diastolic (mm Hg) 89 01/18/2017 [facility] Heart Rate 81 01/18/2017 [facility] Temperature Oral (F) 98.2 F 01/18/2017 [facility] Respitory Rate 18 01/18/2017 [facility] Respitory Rate 13 01/18/2017 [facility] Systolic (mm Hg) 123 01/18/2017 [facility] Diastolic (mm Hg) 87 01/18/2017 [facility] Respitory Rate 14 01/18/2017 [facility] Temperature Oral (F) 98 F 01/18/2017 [facility] Systolic (mm Hg) 113 01/18/2017 [facility] Diastolic (mm Hg) 65 01/18/2017 [facility] Temperature Oral (F) 97.8 F 01/18/2017 [facility] Heart Rate 86 01/15/2017 [facility] Heart Rate 91 01/15/2017 [facility] Weight 77.273 01/12/2017 [facility] BMI Calculated 24.44 01/12/2017 [facility] Weight 77.273 01/12/2017 [facility] Height 177.8 cm 01/12/2017 [facility] BMI Calculated 25.88 01/11/2017 [facility] Weight 81.818 01/11/2017 [facility] Height 177.8 cm 01/11/2017 [facility] Encounters Location Location Encounter Encounter Reason Attending ADM DC Status Source Details Type Number For Provider Date Date Visit [facility] [id number] Jagdeep 01/11 01/18 [facility] /2016 [facility] Outpatient [id number] Tian 02/02 02/03 [facility] /2016 [facility] Inpatient [id number] Jagdeep 02/08 02/12 [facility] /2016 [facility] Bedded [id number] Tian 02/22 02/22 [facility] Outpatient [facility] /2016 [facility] Outpatient [id number] Tian 03/30 03/31 [facility] /2016 [facility] Procedures Procedure Code Date Perfomer Comments Source Cholecystectomy [id number] 02/09/2013 [facility] Cholecystectomy [id number] [facility]
--- OUTSIDE RECORDS SUMMARY | 2018-02-23 19:13 | XMS REPORT | Summary of Care ---
:1980 Author Organization [facility] Address [address] [place] [id number] Encounter HQ Georger_[email or web address](FIN) [id number] Date(s): 01/11/17 - 01/18/[address] Professional Services provided by [facility] [place] [address]- Discharge Disposition: Home or Self Care Attending Physician: Joshua Romero MD Admitting Physician: Jagdeep Ybarra MD Vital Signs Most recent to oldest 1 2 3 [Reference Range]: Height 177.8 cm 177.8 cm (01/12/17 2:27 AM) (01/11/17 6:57 PM) Temperature Oral [96.4-99.1 98.2 DegF 98 DegF 97.8 DegF DegF] (01/18/17 12:39 PM) (01/18/17 8:09 AM) (01/18/17 4:28 AM) Blood Pressure [90-140/60-90 147/89 mmHg 123/87 mmHg 113/65 mmHg mmHg] *HI* (01/18/17 9:00 AM) (01/18/17 6:00 AM) (01/18/17 12:39 PM) Respiratory Rate [14-20 18 BRMIN 13 BRMIN 14 BRMIN BRMIN] (01/18/17 12:39 PM) *LOW* (01/18/17 9:00 AM) (01/18/17 10:00 AM) Peripheral Pulse Rate [60-100 81 bpm 86 bpm 91 bpm bpm] (01/18/17 12:39 PM) (01/15/17 4:03 PM) (01/15/17 11:09 AM) Weight 77.273 kg 77.273 kg 81.818 kg (01/12/17 5:01 AM) (01/12/17 2:27 AM) (01/11/17 6:57 PM) Body Mass Index 24.44 m2 25.88 m2 (01/12/17 2:27 AM) (01/11/17 6:57 PM) Problem List Condition Effective Dates Status Health Status Informant Pain(Confirmed) 05/04/11 Active Pancreatitis(Confirmed) 05/16/11 Active Allergies, Adverse Reactions, Alerts Substance Reaction Severity Status NKDA Active Medications calcium carbonate 500 mg (200 mg elemental calcium) oral tablet 500 mg, 1 tab, Route: PO, Drug form: CHEWTAB, PRN, Dosing Weight 77.273, kg, PRN Abnormal Lab Result, FOR ICU USE ONLY, Start date: 01/12/17 5:21:00 CDT, Duration: 30 day, Stop date: 02/11/17 5:20:00 CDT Notes: (Same As: Mg)Calcium Carbonate 500 kv=306 mg elemental calcium Dose=_ mg calcium carbonate ( mg elemental calcium) Start Date: 01/12/17 Stop Date: 01/13/17 Status: Discontinuedcalcium carbonate 500 mg (200 mg elemental calcium) oral tablet 1,000 mg, 2 tab, Route: PO, Drug form: CHEWTAB, PRN, Dosing Weight 77.273, kg, PRN Abnormal Lab Result, FOR ICU USE ONLY, Start date: 01/12/17 5:21:00 CDT, Duration: 30 day, Stop date: 02/11/17 5:20:00CDT Notes: (Same As: Mg)Calcium Carbonate 500 rj=715 mg elemental calcium Dose=_ mg calcium carbonate ( mg elemental calcium) Start Date: 01/12/17 Stop Date: 01/13/17 Status: Discontinuedcalcium gluconate + sodium chloride 0.9% INJ 50 mL 1 gm, 10 mL, Route: IVPB, PRN, Dosing Weight 77.273, kg, PRN Abnormal Lab Result , Start date: 01/12/17 5:21:00 CDT, Duration: 30 day, Stop date: 02/11/17 5:20: 00 CDT, FOR ICU USE ONLY Notes: WASTE: F/P - Sink; E - Municipal Trash Bin Start Date: 01/12/17 Stop Date: 01/13/17 Status: DiscontinuedColace 100 mg oral capsule 100 mg, 1 cap, Route: PO, Drug form: CAP, Bedtime, Dosing Weight 77.273, kg, Start date: 01/12/17 21:00:00 CDT, Duration: 30 day, Stop date: 02/10/17 21:00: 00 CDT Notes: (Same as: Colace) (Do Not Crush) Start Date: 01/12/17 Stop Date: 01/13/17 Status: [id number] 1/2NS 1,000 mL 1,000 mL, Rate: 75 ml/hr, Infuse over: 13.3 hr, Route: IV, Dosing Weight 77.273 kg, Total Volume: 1,000, Start date: 01/13/17 6:29:00 CDT, Duration: 30 day, Stop date: 02/12/17 6:28:00 CDT Start Date: 01/13/17 Stop Date: 01/13/17 Status: [id number] 1/2NS 1,000 mL 1,000 mL, Rate: 200 ml/hr, Infuse over: 5 hr, Route: IV, Dosing Weight 81.818 kg , Total Volume: 1,000, Start date: 01/12/17 1:06:00 CDT, Stop date: 02/11/17 1: 05:00 CDT Start Date: 01/12/17 Stop Date: 01/12/17 Status: Discontinueddextrose 10% in water 980.75 mL + sodium chloride 23.4% IV 77 mEq 980.75 mL, Rate: 200 ml/hr, Infuse over: 5 hr, Route: IV, Dosing Weight 77.273 kg, Total Volume: 1,000, Start date: 01/12/17 7:39:00 CDT, Duration: 1 doses or times, Stop date: 01/12/17 12:38:00 CDT Start Date: 01/12/17 Stop Date: 01/12/17 Status: Completeddextrose 10% in water 980.75 mL + sodium chloride 23.4% IV 77 mEq 980.75 mL, Rate: 200 ml/hr, Infuse over: 5 hr, Route: IV, Dosing Weight 77.273 kg, Total Volume: 1,000, Start date: 01/12/17 12:42:00 CDT, Duration: 30 doses or times, Stop date: 01/18/17 18:41:00 CDT Start Date: 01/12/17 Stop Date: 01/13/17 Status: DiscontinuedDextrose 50% Syringe 12.5 gm, 25 mL, Route: IVP, Drug Form: INJ, Dosing Weight 77.273, kg, PRN, PRN Blood Glucose Results, Start date: 01/13/17 9:40:00 CDT, Duration: 30 day, Stop date: 02/12/17 9:39:00 CDT Start Date: 01/13/17 Stop Date: 01/18/17 Status: DiscontinuedDextrose 50% Syringe 25 gm, 50 mL, Route: IVP, Drug Form: INJ, Dosing Weight 77.273, kg, PRN, PRN Blood Glucose Results, Start date: 01/13/17 9:40:00 CDT, Duration: 30 day, Stop date: 02/12/17 9:39:00 CDT Start Date: 01/13/17 Stop Date: 01/18/17 Status: DiscontinuedDextrose 50% Syringe 12.5 gm, 25 mL, Route: IVP, Drug Form: INJ, Dosing Weight 81.818, kg, PRN, PRN Blood Glucose Results, Start date: 01/12/17 0:37:00 CDT, Duration: 30 day, Stop date: 02/11/17 0:36:00 CDT Start Date: 01/12/17 Stop Date: 01/13/17 Status: DiscontinuedDextrose 50% Syringe 25 gm, 50 mL, Route: IVP, Drug Form: INJ, Dosing Weight 81.818, kg, PRN, PRN Blood Glucose Results, Start date: 01/12/17 0:37:00 CDT, Duration: 30 day, Stop date: 02/11/17 0:36:00 CDT Start Date: 01/12/17 Stop Date: 01/13/17 Status: DiscontinuedDilaudid 2 mg, Route: PO, Drug form: TAB, Q3H, Dosing Weight 77.273, kg, PRN Pain Score 4 -6, Start date: 01/12/17 8:37:00 CDT, Duration: 30 day, Stop date: 02/11/17 8:36 :00 CDT Start Date: 01/12/17 Stop Date: 01/12/17 Status: DiscontinuedDilaudid 0.2 mg, 0.1 mL, Route: IVP, Drug form: INJ, Q3H, Dosing Weight 77.273, kg, PRN Pain Score 7-10, Start date: 01/12/17 8:41:00 CDT, Duration: 30 day, Stop date: 02/11/17 8:40:00 CDT Notes: Same as: Dilaudid Start Date: 01/12/17 Stop Date: 01/18/17 Status: Discontinueddocusate-senna 50 mg-8.6 mg oral tablet 2 tab, Route: PO, Drug Form: TAB, Dosing Weight 77.273, kg, Q12H, Start date: 21:00:00 CDT,Duration: 30 day, Stop date: 02/12/17 9:00:00 CDT Notes: (Same as Todd-S) Equiv. to Cris-Colace. Start Date: 01/13/17 Stop Date: 01/18/17 Status: Discontinuedenoxaparin 40 mg, 0.4 mL, Route: SUB-Q, Drug form: INJ, [id number], Dosing Weight 77.273, kg , Start date: 01/14/17 7:00:00 CDT, Duration: 30 day, Stop date: 02/12/17 9:00: 00 CDT Notes: (Same as: Lovenox) Start Date: 01/14/17 Stop Date: 01/18/17 Status: Discontinuedenoxaparin 40 mg, 0.4 mL, Route: SUB-Q, Drug form: INJ, [id number], Dosing Weight 77.273, kg , Start date: 01/12/17 3:00:00 CDT, Duration: 30 day, Stop date: 02/10/17 3:00: 00 CDT Notes: (Same as: Lovenox) Start Date: 01/12/17 Stop Date: 01/13/17 Status: Discontinuedgemfibrozil 600 mg, 1 tab, Route: PO, Drug form: TAB, BID-Before Meals, Dosing Weight 77.273 , kg, Start date: 01/12/17 5:18:00 CDT, Stop date: 02/10/17 16:30:00 CDT Notes: (Same as: Lopid) Start Date: 01/12/17 Stop Date: 01/18/17 Status: Discontinuedgemfibrozil 600 mg oral tablet 600 mg=1 tab, PO, BID, # 180 tab, 0 Refill(s) Start Date: 01/12/17 Stop Date: 01/18/17 Status: Discontinuedgemfibrozil 600 mg oral tablet 600 mg=1 tab, PO, BID, # 60 tab, 0 Refill(s), Pharmacy: [facility] [id number] Start Date: 01/18/17 Stop Date: 02/17/17 Status: Orderedglucagon 1 mg, Route: IM, Drug form: PDR/INJ, PRN, Dosing Weight 77.273, kg, PRN Blood Glucose Results, Startdate: 01/13/17 9:40:00 CDT, Duration: 30 day, Stop date: 02/12/17 9:39:00 CDT Start Date: 01/13/17 Stop Date: 01/18/17 Status: Discontinuedhydromorphone 0.5 mg, Route: IVP, ONCE, Dosing Weight 81.818, kg, Priority: STAT, Start date: 01/12/17 0:40:00 CDT, Stop date: 01/12/17 0:40:00 CDT Start Date: 01/12/17 Stop Date: 01/12/17 Status: Completedinsulin isophane-NPH 12 unit, 0.12 mL, Route: SUB-Q, Drug form: INJ, Q12H, Dosing Weight 77.273, kg, Start date: 179:00:00 CDT, Stop date: 02/12/17 21:00:00 CDT Notes: Roll in palms of hands gently; Do not shake vigorously. (Same as: Humulin N)Do not hold insulin without contacting prescriberWASTE: F/P - Black; E - Municipal Trash Bin Stable for 28 days at room temperatureExpires in ____ _ days from Date Start Date: 01/14/17 Stop Date: 01/15/17 Status: Discontinuedinsulin isophane-NPH 5 unit, 0.05 mL, Route: SUB-Q, Drug form: INJ, BID, Dosing Weight 77.273, kg, Start date: 01/13/17 9:00:00 CDT, Duration: 30 day, Stop date: 02/11/17 17:00: 00 CDT Notes: Roll in palms of hands gently; Do not shake vigorously. (Same as: Humulin N)Do not hold insulin without contacting prescriberWASTE: F/P - Black; E - Municipal Trash Bin Stable for 28 days at room temperatureExpires in ____ _ days from Date Start Date: 01/13/17 Stop Date: 01/13/17 Status: DiscontinuedInsulin regular 3 unit, 0.03 mL, Route: SUB-Q, Drug form: SOLN, TID-Before Meals, Dosing Weight 77.273, kg, PRN Blood Glucose Results, Start date: 01/13/17 9:40:00 CDT, Duration: 30 day, Stop date: 02/12/17 9:39:00 CDT Notes: (Same as: Humulin R) Roll in palms of hands gently; Do not shake vigorously. "single patientuse only"(Restricted to patients requiring a dose > 60 units)WASTE: F/P - Black; E - Municipal Trash Bin Stable for 28 days at room temperatureExpires in days from Date Start Date: 01/13/17 Stop Date: 01/18/17 Status: DiscontinuedInsulin regular 4 unit, 0.04 mL, Route: SUB-Q, Drug form: SOLN, TID-Before Meals, Dosing Weight 77.273, kg, PRN Blood Glucose Results, Start date: 01/13/17 9:40:00 CDT, Duration: 30 day, Stop date: 02/12/17 9:39:00 CDT Notes: (Same as: Humulin R) Roll in palms of hands gently; Do not shake vigorously. "single patientuse only"(Restricted to patients requiring a dose > 60 units)WASTE: F/P - Black; E - Municipal Trash Bin Stable for 28 days at room temperatureExpires in days from Date Start Date: 01/13/17 Stop Date: 01/18/17 Status: DiscontinuedInsulin regular 2 unit, 0.02 mL, Route: SUB-Q, Drug form: SOLN, TID-Before Meals, Dosing Weight 77.273, kg, PRN Blood Glucose Results, Start date: 01/13/17 9:40:00 CDT, Duration: 30 day, Stop date: 02/12/17 9:39:00 CDT Notes: (Same as: Humulin R) Roll in palms of hands gently; Do not shake vigorously. "single patientuse only"(Restricted to patients requiring a dose > 60 units)WASTE: F/P - Black; E - Municipal Trash Bin Stable for 28 days at room temperatureExpires in days from Date Start Date: 01/13/17 Stop Date: 01/18/17 Status: DiscontinuedInsulin regular 5 unit, 0.05 mL, Route: SUB-Q, Drug form: SOLN, TID-Before Meals, Dosing Weight 77.273, kg, PRN Blood Glucose Results, Start date: 01/13/17 9:40:00 CDT, Stop date: 02/12/17 9:39:00 CDT Notes: (Same as: Humulin R) Roll in palms of hands gently; Do not shake vigorously. "single patientuse only"(Restricted to patients requiring a dose > 60 units)WASTE: F/P - Black; E - Municipal Trash Bin Stable for 28 days at room temperatureExpires in days from Date Start Date: 01/13/17 Stop Date: 01/18/17 Status: DiscontinuedInsulin regular 1 unit, 0.01 mL, Route: SUB-Q, Drug form: SOLN, TID-Before Meals, Dosing Weight 77.273, kg, PRN Blood Glucose Results, Start date: 01/13/17 9:40:00 CDT, Duration: 30 day, Stop date: 02/12/17 9:39:00 CDT Notes: (Same as: Humulin R) Roll in palms of hands gently; Do not shake vigorously. "single patientuse only"(Restricted to patients requiring a dose > 60 units)WASTE: F/P - Black; E - Municipal Trash Bin Stable for 28 days at room temperatureExpires in days from Date Start Date: 01/13/17 Stop Date: 01/18/17 Status: DiscontinuedInsulin regular 10 unit, Route: SUB-Q, ONCE, Dosing Weight 81.818, kg, Priority: STAT, Start date: 01/11/17 23:30:00CDT, Stop date: 01/11/17 23:30:00 CDT Start Date: 01/11/17 Stop Date: 01/11/17 Status: CompletedInsulin regular 100 unit + sodium chloride 0.9% INJ 99 mL 99 mL, Rate: Start Insulin Drip Per ICU Protocol, Dosing Weight 81.818, kg, Route: IVPB, Total Volume: 100, Start Date: 01/12/17 0:37:00 CDT, Duration: 30 day, Stop date: 02/11/17 0:36:00 CDT, Replace Every: 24 hr Notes: (Same as: Humulin R and NovoLIN R)WASTE: F/P - Black; E - Municipal Trash Bin (Do not shake) Start Date: 01/12/17 Stop Date: 01/13/17 Status: Discontinuedinsulin regular 100 units/mL human recombinant 8 unit, 0.08 mL, Route: SUB-Q, Drug form: SOLN, TID-Before Meals, Start date: 11:30:00 CDT,Stop date: 02/14/17 7:30:00 CDT Notes: (Same as: Humulin R) Roll in palms of hands gently; Do not shake vigorously. "single patientuse only"(Restricted to patients requiring a dose > 60 units)WASTE: F/P - Black; E - Municipal Trash Bin Stable for 28 days at room temperatureExpires in days from Date Start Date: 01/15/17 Stop Date: 01/18/17 Status: DiscontinuedLantus Solostar Pen 100 units/mL subcutaneous solution 35 unit, SUB-Q, Daily, # 3 mL, 0 Refill(s), Pharmacy: [facility] [id number] Start Date: 01/18/17 Stop Date: 02/17/17 Status: OrderedLantus Solostar Pen 100 units/mL subcutaneous solution 35 unit, SUB-Q, Daily Start Date: 01/13/17 Stop Date: 01/18/17 Status: DiscontinuedLantus Solostar Pen 100 units/mL subcutaneous solution SUB-Q, 0 Refill(s) Start Date: 01/12/17 Stop Date: 01/13/17 Status: DiscontinuedLantus Solostar Pen 100 units/mL subcutaneous solution 32 unit, 0.32 mL, Route: SUB-Q, Drug form: SOLN, Daily, Dosing Weight 77.273, kg , Start date: 01/15/17 9:00:00 CDT, Stop date: 02/13/17 9:00:00 CDT Notes: Same as: Lantus)Do not hold insulin without contacting prescriberWASTE: F /P - Black; E - Styloolash Bin Start Date: 01/15/17 Stop Date: 01/18/17 Status: DiscontinuedLovaza 2,000 mg=, PO, BID, 0 Refill(s) Start Date: 01/12/17 Stop Date: 01/18/17 Status: DiscontinuedLovaza oral capsule 2,000 mg=, PO, BID, # 60 tab, 0 Refill(s), Pharmacy: [facility] [id number] Start Date: 01/18/17 Stop Date: 02/17/17 Status: Orderedmagnesium oxide 800 mg, 2 tab, Route: PO, Drug form: TAB, PRN, Dosing Weight 77.273, kg, PRN Abnormal Lab Result, FOR ICU USE ONLY, Start date: 01/12/17 5:21:00 CDT, Duration: 30 day, Stop date: 02/11/17 5:20:00 CDT Notes: (Same as: Mag-Ox 400)Magnesium oxide [id number] elemental magnesiumDose= ____mg magnesium oxide (___mg elemental magnesium) Start Date: 01/12/17 Stop Date: 01/13/17 Status: Discontinuedmagnesium oxide 800 mg, 2 tab, Route: PO, Drug form: TAB, TID, Dosing Weight 77.273, kg, Start date: 01/13/17 9:00:00 CDT, Duration: 1 day, Stop date: 01/13/17 17:00:00 CDT Notes: (Same as: Mag-Ox 400)Magnesium oxide [id number] elemental magnesiumDose= 800 mg magnesium oxide (484 mg elemental magnesium) Start Date: 01/13/17 Stop Date: 01/13/17 Status: Completedmagnesium sulfate 2 gm, 50 mL, Route: IVPB, Drug form: INJ, PRN, Dosing Weight 77.273, kg, PRN Abnormal Lab Result, Start date: 01/12/17 5:21:00 CDT, Duration: 30 day, Stop date: 02/11/17 5:20:00 CDT, FOR ICU USE ONLY Notes: WASTE: F/P - Sink; E - Municipal Trash Bin Start Date: 01/12/17 Stop Date: 01/13/17 Status: DiscontinuedMiraLax 17 gm, 1 pkt, Route: PO, Drug form: PWDR, BID, Dosing Weight 77.273, kg, PRN Constipation, Start date: 01/12/17 7:41:00 CDT, Duration: 30 day, Stop date: 09/25 7:40:00 CDT Notes: Dissolve in 8 oz of water or juice.(Same as: Miralax) Start Date: 01/12/17 Stop Date: 01/18/17 Status: Discontinuedmorphine Sulfate 2 mg, 1 mL, Route: IVP, Drug form: INJ, Q4H, Dosing Weight 77.273, kg, PRN Pain Score 7-10, Start date: 01/12/17 2:42:00 CDT, Stop date: 01/14/17 2:41:00 CDT Notes: (Same as:MORPhine Sulfate) Start Date: 01/12/17 Stop Date: 01/13/17 Status: Discontinuedmorphine Sulfate 4 mg, Route: IVP, ONCE, Dosing Weight 81.818, kg, Priority: STAT, Start date: 22:32:00 CDT,Stop date: 01/11/17 22:32:00 CDT Start Date: 01/11/17 Stop Date: 01/11/17 Status: Completedmorphine Sulfate 4 mg, Route: IVP, ONCE, Dosing Weight 81.818, kg, Priority: STAT, Start date: 23:48:00 CDT,Stop date: 01/11/17 23:48:00 CDT Start Date: 01/11/17 Stop Date: 01/11/17 Status: Completedniacin 500 mg, 2 tab, Route: PO, Drug form: TAB, Bedtime, Dosing Weight 77.273, kg, Start date: 01/12/17 21:00:00 CDT, Stop date: 02/10/17 21:00:00 CDT Start Date: 01/12/17 Stop Date: 01/18/17 Status: Discontinuedniacin 500 mg oral tablet, extended release 500 mg=1 tab, PO, Bedtime, # 30 tab, 0 Refill(s), Pharmacy: [facility] [id number] Start Date: 01/18/17 Stop Date: 02/17/17 Status: Orderedniacin 500 mg oral tablet, extended release 500 mg=1 tab, PO, Bedtime, # 30 tab, 0 Refill(s) Start Date: 01/12/17 Stop Date: 01/18/17 Status: DiscontinuedNovoLOG FlexPen 5 unit, Route: SUB-Q, TID-Before Meals, Dosing Weight 77.273, kg, Start date: 11:30:00 CDT,Duration: 30 day, Stop date: 02/14/17 7:30:00 CDT Start Date: 01/15/17 Stop Date: 01/15/17 Status: DeletedNovoLOG FlexPen 100 units/mL subcutaneous solution SUB-Q, TID-Before Meals, sliding scale Start Date: 01/13/17 Status: OrderedNovoLOG FlexPen 100 units/mL subcutaneous solution SUB-Q, TID-Before Meals, 0 Refill(s) Start Date: 01/12/17 Stop Date: 01/13/17 Status: DiscontinuedOmnipaque 350mg/ml 100 mL, Route: IVP, Drug Form: SOLN, Dosing Weight 77.273, kg, ONCALL, STAT, Start date: 01/15/17 3:38:00 CDT, Duration: 1 doses or times, Dose=2.2ml/kg, Max opsi=[id number] -- "To be infused by Radiology Staff ONLY" Notes: (Same as:Omnipaque 350).WASTE: F/P - Black; E - Municipal Trash Bin Start Date: 01/15/17 Stop Date: 01/15/17 Status: Completedondansetron 4 mg, Route: IVP, Drug form: INJ, ONCE, Dosing Weight 81.818, kg, Priority: STAT , Start date: 01/11/17 22:25:00 CDT, Stop date: 01/11/17 22:25:00 CDT Start Date: 01/11/17 Stop Date: 01/11/17 Status: CompletedoxyCODONE 10 mg extended release 10 mg, 1 tab, Route: PO, Drug form: ERTAB, Q12H, Start date: 01/16/17 11:00:00 CDT, Duration: 30 day, Stop date: 02/15/17 9:00:00 CDT Notes: Do not crush or chew.(Same as: OxyContin) Start Date: 01/16/17 Stop Date: 01/18/17 Status: DiscontinuedoxyCODONE 5 mg oral tablet 10 mg, 2 tab, Route: PO, Drug form: TAB, Q6H, Dosing Weight 77.273, kg, PRN Pain Score 4-6, Start date: 01/13/17 18:00:00 CDT, Stop date: 02/12/17 12:00:00 CDT Notes: (Same as: Roxicodone) Start Date: 01/13/17 Stop Date: 01/18/17 Status: Discontinuedpneumococcal 23-valent vaccine 0.5 mL, Route: IM, Drug Form: INJ, Daily, Start date: 01/12/17 9:00:00 CDT, Duration: 1 doses or times, Stop date: 01/12/17 9:00:00 CDT Notes: (Same as: Pneumovax 23) Refrigerate Start Date: 01/12/17 Stop Date: 01/14/17 Status: DeletedPneumovax 23 0.5 mL, Route: IM, Drug Form: INJ, Daily, Start date: 01/14/17 18:30:00 CDT, Duration: 1 doses or times, Stop date: 01/14/17 18:30:00 CDT Start Date: 01/14/17 Stop Date: 01/14/17 Status: CompletedPneumovax 23 0.5 mL, Route: IM, Drug Form: INJ, Daily, Start date: 01/14/17 16:00:00 CDT, Duration: 1 doses or times, Stop date: 01/14/17 16:00:00 CDT Notes: (Same as: Pneumovax 23) Refrigerate Start Date: 01/14/17 Stop Date: 01/14/17 Status: Deletedpotassium chloride 20 mEq, 100 mL, Route: IVPB, Drug form: INJ, PRN, Dosing Weight 77.273, kg, PRN Abnormal Lab Result,Via central line, Start date: 01/12/17 5:21:00 CDT, Duration : 30 day, Stop date: 02/11/17 5:20:00 CDT, FOR ICU USE ONLY Notes: (Same as: KCL) Infuse no faster than 10 mEq/hr if given peripherally. Start Date: 01/12/17 Stop Date: 01/13/17 Status: Discontinuedpotassium chloride 20 mEq, 1 tab, Route: PO, Drug form: ERTAB, PRN, Dosing Weight 77.273, kg, PRN Abnormal Lab Result, Start date: 01/12/17 5:21:00 CDT, Duration: 30 day, Stop date: 02/11/17 5:20:00 CDT, FOR ICU USE ONLY Notes: (Same as: K-Dur 20)"Do Not Crush" With food and full glass of water Start Date: 01/12/17 Stop Date: 01/13/17 Status: Discontinuedpotassium chloride 10 mEq, 50 mL, Route: IVPB, Drug form: INJ, PRN, Dosing Weight 77.273, kg, PRN Abnormal Lab Result, Via peripheral line, Start date: 01/12/17 5:21:00 CDT, Duration: 30 day, Stop date: 02/11/17 5:20:00 CDT, FOR ICU USE ONLY Notes: (Same as: KCL) Infuse over 2 hours. Start Date: 01/12/17 Stop Date: 01/13/17 Status: Discontinuedpotassium chloride 20 mEq, 15 mL, Route: NJ, Drug form: LIQ, PRN, Dosing Weight 77.273, kg, PRN Abnormal Lab Result, Start date: 01/12/17 5:21:00 CDT, Duration: 30 day, Stop date: 02/11/17 5:20:00 CDT, FOR ICU USE ONLY Notes: (Same as: Potassium Chloride) Start Date: 01/12/17 Stop Date: 01/13/17 Status: Discontinuedpotassium chloride 10 mEq, Route: IVPB, Q1H, Dosing Weight 77.273, kg, Total Dose=40 meq, Start date: 01/13/17 7:00:00 CDT, Duration: 4 doses or times, Stop date: 01/13/17 10: 00:00 CDT, Peripheral Line Start Date: 01/13/17 Stop Date: 01/13/17 Status: Canceledpotassium chloride 20 mEq oral tablet, extended release 80 mEq, 4 tab, Route: PO, Drug form: ERTAB, ONCE, Dosing Weight 77.273, kg, Start date: 01/13/17 6:30:00 CDT, Stop date: 01/13/17 6:30:00 CDT Notes: (Same as: K-Dur 20)"Do Not Crush" With food and full glass of water Start Date: 01/13/17 Stop Date: 01/13/17 Status: Discontinuedpotassium chloride 20 mEq oral tablet, extended release 40 mEq, 2 tab, Route: PO, Drug form: ERTAB, Lunch, Dosing Weight 77.273, kg, Start date: 01/13/17 12:00:00 CDT, Duration: 1 doses or times, Stop date: 12:00:00 CDT Notes: (Same as: K-Dur 20)"Do Not Crush" With food and full glass of water Start Date: 01/13/17 Stop Date: 01/13/17 Status: Completedpotassium chloride 20 mEq/15 mL oral liquid 40 mEq, 30 mL, Route: PO, Drug form: LIQ, ONCE, Dosing Weight 77.273, kg, Start date: 01/13/17 7:52:00 CDT, Stop date: 01/13/17 7:52:00 CDT Notes: (Same as: Potassium Chloride) Start Date: 01/13/17 Stop Date: 01/13/17 Status: Completedpotassium phosphate + sodium chloride 0.9% INJ 250 mL 45 mmol, 15 mL, Route: IVPB, PRN, Dosing Weight 77.273, kg, PRN Abnormal Lab Result, Start date: 01/12/17 5:21:00 CDT, Duration: 30 day, Stop date: 02/11/17 5:20:00 CDT, FOR ICU USE ONLY Notes: (Same as: K Phosphate.) 1 mMol phoshate has 1.47 mEq potassium Infuse over 4 hours Start Date: 01/12/17 Stop Date: 01/13/17 Status: Discontinuedpotassium phosphate + sodium chloride 0.9% INJ 250 mL 15 mmol, 5 mL, Route: IVPB, PRN, Dosing Weight 77.273, kg, PRN Abnormal Lab Result, Start date: 01/12/17 5:21:00 CDT, Duration: 30 day, Stop date: 02/11/17 5:20:00 CDT, FOR ICU USE ONLY Notes: (Same as: K Phosphate.) 1 mMol phoshate has 1.47 mEq potassium Infuse over 4 hours Start Date: 01/12/17 Stop Date: 01/13/17 Status: Discontinuedpotassium phosphate + sodium chloride 0.9% INJ 250 mL 30 mmol, 10 mL, Route: IVPB, PRN, Dosing Weight 77.273, kg, PRN Abnormal Lab Result, Start date: 01/12/17 5:21:00 CDT, Duration: 30 day, Stop date: 02/11/17 5:20:00 CDT, FOR ICU USE ONLY Notes: (Same as: K Phosphate.) 1 mMol phoshate has 1.47 mEq potassium Infuse over 4 hours Start Date: 01/12/17 Stop Date: 01/13/17 Status: Discontinuedpotassium phosphate-sodium phosphate 250 mg-280 mg-160 mg oral powder for reconstitution 2 pkt, Route: PO, Drug Form: PDR/REC, Dosing Weight 77.273, kg, PRN, PRN Abnormal Lab Result, FOR ICU USE ONLY, Start date: 01/12/17 5:21:00 CDT, Duration: 30 day, Stop date: 02/11/17 5:20:00 CDT Notes: (Same as: Phos-NaK) Each 1.5 gm pkt has 250mg phosphorous. Mix w/2.5oz water and stir. Start Date: 01/12/17 Stop Date: 01/13/17 Status: Discontinuedsenna 8.6 mg oral tablet 17.2 mg, 2 tab, Route: PO, Drug Form: TAB, Dosing Weight 77.273, kg, BID, Start date: 01/12/17 9:00:00 CDT, Duration: 30 day, Stop date: 02/10/17 17:00:00 CDT Notes: (Same as: Senokot) Start Date: 01/12/17 Stop Date: 01/13/17 Status: Discontinuedsimethicone 80 mg, 1.2 mL, Route: PO, Drug form: DROP, Q6H, Dosing Weight 77.273, kg, PRN Gas, Start date: 01/13/17 0:42:00 CDT, Duration: 30 day, Stop date: 02/12/17 0: 41:00 CDT Notes: (Same as: Mylicon, Phazyme, Genasyme) Start Date: 01/13/17 Stop Date: 01/18/17 Status: DiscontinuedSodium Chloride 0.9% (Bolus) IV 1,000 mL, Infuse Over: 1 hr, Route: IV, ONCE, Priority: STAT, Dosing Weight 81.818 kg, Start date: 01/11/17 22:25:00 CDT, Duration: 1 doses or times, Stop date: 01/11/17 22:25:00 CDT Start Date: 01/11/17 Stop Date: 01/11/17 Status: Completedsodium chloride 0.9% 1000 ml INJ 1,000 mL 1,000 mL, Rate: 125 ml/hr, Infuse over: 8 hr, Route: IV, Dosing Weight 77.273 kg , Total Volume: 1,000, Start date: 01/13/17 15:55:00 CDT, Duration: 30 day, Stop date: 02/12/17 15:54:00 CDT Start Date: 01/13/17 Stop Date: 01/18/17 Status: Discontinuedsodium phosphate + sodium chloride 0.9% INJ 250 mL 15 mmol, 5 mL, Route: IVPB, PRN, Dosing Weight 77.273, kg, PRN Abnormal Lab Result, Start date: 01/12/17 5:21:00 CDT, Duration: 30 day, Stop date: 02/11/17 5:20:00 CDT, FOR ICU USE ONLY Start Date: 01/12/17 Stop Date: 01/13/17 Status: Discontinuedsodium phosphate + sodium chloride 0.9% INJ 250 mL 45 mmol, 15 mL, Route: IVPB, PRN, Dosing Weight 77.273, kg, PRN Abnormal Lab Result, Start date: 01/12/17 5:21:00 CDT, Duration: 30 day, Stop date: 02/11/17 5:20:00 CDT, FOR ICU USE ONLY Start Date: 01/12/17 Stop Date: 01/13/17 Status: Discontinuedsodium phosphate + sodium chloride 0.9% INJ 250 mL 30 mmol, 10 mL, Route: IVPB, PRN, Dosing Weight 77.273, kg, PRN Abnormal Lab Result, Start date: 01/12/17 5:21:00 CDT, Duration: 30 day, Stop date: 02/11/17 5:20:00 CDT, FOR ICU USE ONLY Start Date: 01/12/17 Stop Date: 01/13/17 Status: DiscontinuedZofran 4 mg, 2 mL, Route: IVP, Drug form: INJ, Q8H, Dosing Weight 77.273, kg, PRN Nausea, Start date: 01/12/17 8:33:00 CDT, Duration: 30 day, Stop date: 02/11/17 8:32:00 CDT Notes: (Same as: Zofran) MEDICATION WASTE Product Size: 4 mgProduct Wasted: ___ mg Start Date: 01/12/17 Stop Date: 01/18/17 Status: Discontinued Results ELECTROLYTES Most recent to oldest 1 2 3 [Reference Range]: Sodium Lvl [135-145 mEq/L] 137 mEq/L 135 mEq/L 138 mEq/L (01/18/17 3:40 AM) (01/17/17 5:48 AM) (01/16/17 5:29 AM) Potassium Lvl [3.5-5.1 mEq/L] 4.1 mEq/L 4.0 mEq/L 3.9 mEq/L (01/18/17 3:40 AM) (01/17/17 5:48 AM) (01/16/17 5:29 AM) Chloride Lvl [95-109 mEq/L] 102 mEq/L 100 mEq/L 103 mEq/L (01/18/17 3:40 AM) (01/17/17 5:48 AM) (01/16/17 5:29 AM) CO2 [24-32 mEq/L] 26 mEq/L 28 mEq/L 27 mEq/L (01/18/17 3:40 AM) (01/17/17 5:48 AM) (01/16/17 5:29 AM) AGAP [10.0-20.0 mEq/L] 13.1 mEq/L 11.0 mEq/L 11.9 mEq/L (01/18/17 3:40 AM) (01/17/17 5:48 AM) (01/16/17 5:29 AM) CHEM PANEL Most recent to oldest 1 2 3 [Reference Range]: Creatinine Lvl [0.50-1.40 0.76 mg/dL 0.81 mg/dL 0.76 mg/dL mg/dL] (01/18/17 3:40 AM) (01/17/17 5:48 AM) (01/16/17 5:29 AM) eGFR 117 mL/min/1.73m2 1 113 mL/min/1.73m2 2 117 mL/min/1.73m2 3 *NA* *NA* *NA* (01/18/17 3:40 AM) (01/17/17 5:48 AM) (01/16/17 5:29 AM) BUN [7-22 mg/dL] 13 mg/dL 11 mg/dL 8 mg/dL (01/18/17 3:40 AM) (01/17/17 5:48 AM) (01/16/17 5:29 AM) B/C Ratio [6-25] 8 (01/13/17 10:41 AM) Glucose Lvl [70-99 mg/dL] 199 mg/dL 293 mg/dL 225 mg/dL *HI* *HI* *HI* (01/18/17 3:40 AM) (01/17/17 5:48 AM) (01/16/17 5:29 AM) Total Protein [6.4-8.4 g/dL] 6.0 g/dL 7.9 g/dL *LOW* (01/11/17 10:33 PM) (01/13/17 10:41 AM) Albumin Lvl [3.5-5.0 g/dL] 2.9 g/dL 3.9 g/dL *LOW* (01/11/17 10:33 PM) (01/13/17 10:41 AM) Globulin [2.7-4.2 g/dL] 3.1 g/dL 4.0 g/dL (01/13/17 10:41 AM) (01/11/17 10:33 PM) A/G Ratio [0.7-1.6] 0.9 1.0 (01/13/17 10:41 AM) (01/11/17 10:33 PM) Calcium Lvl [8.5-10.5 mg/dL] 9.0 mg/dL 8.8 mg/dL 8.7 mg/dL (01/18/17 3:40 AM) (01/17/17 5:48 AM) (01/16/17 5:29 AM) Phosphorus [2.5-4.5 mg/dL] 2.5 mg/dL 3.2 mg/dL 2.2 mg/dL (01/13/17 1:21 AM) (01/12/17 1:39 PM) *LOW* (01/12/17 3:41 AM) Magnesium Lvl [1.8-2.4 2.0 mg/dL 1.7 mg/dL 2.0 mg/dL mg/dL] (01/13/17 10:41 AM) *LOW* (01/12/17 1:39 PM) (01/13/17 1:21 AM) ALT [0-65 unit/L] 46 unit/L 67 unit/L (01/13/17 10:41 AM) *HI* (01/11/17 10:33 PM) AST [0-37 unit/L] 24 unit/L 36 unit/L (01/13/17 10:41 AM) (01/11/17 10:33 PM) Alk Phos [39-136 unit/L] 59 unit/L 84 unit/L (01/13/17 10:41 AM) (01/11/17 10:33 PM) LDH [98-192 unit/L] 296 unit/L *HI* (01/12/17 3:41 AM) Bili Total [0.2-1.3 mg/dL] 0.8 mg/dL 1.4 mg/dL (01/13/17 10:41 AM) *HI* (01/11/17 10:33 PM) Bili Direct [0.0-0.3 mg/dL] 0.1 mg/dL (01/11/17 10:33 PM) Bili Indirect [0.0-1.0 1.3 mg/dL mg/dL] *HI* (01/11/17 10:33 PM) Lipase Lvl [73-393 unit/L] 171 unit/L 1406 unit/L (01/13/17 10:41 AM) *HI* (01/11/17 10:33 PM) Ketone Quantitative [<=0.27 0.13 mmol/L mmol/L] (01/12/17 3:41 AM) Lactic Acid Lvl [0.5-2.2 0.5 mMol/L 4 mMol/L] (01/12/17 1:39 PM) 1Result Comment: The eGFR is calculated using the CKD-EPI formula. In most young , healthy individualsthe eGFR will be >90 mL/min/1.73m2. The eGFR declines with age. An eGFR of 60-89 may be normal in some populations, particularly the elderly, for whom the CKD-EPI formula has not been extensively validated. Use of the eGFR is not recommended in the following populations: Individuals with unstable creatinine concentrations, including patients and those with serious co-morbid conditions. Patients with extremes in muscle mass or diet. The data above are obtained from the National Kidney Disease Education Program ( NKDEP) which additionally recommends that when the eGFR is used in patients with extremes of body mass index for purposesof drug dosing, the eGFR should be multiplied by the estimated BMI.2Result Comment: The eGFR is calculated using the CKD-EPI formula. In most young, healthy individualsthe eGFR will be >90 mL/ min/1.73m2. The eGFR declines with age. An eGFR of 60-89 may be normal in some populations, particularly the elderly, for whom the CKD-EPI formula has not been extensively validated. Use of the eGFR is not recommended in the following populations: Individuals with unstable creatinine concentrations, including patients and those with serious co-morbid conditions. Patients with extremes in muscle mass or diet. The data above are obtained from the National Kidney Disease Education Program ( NKDEP) which additionally recommends that when the eGFR is used in patients with extremes of body mass index for purposesof drug dosing, the eGFR should be multiplied by the estimated BMI.3Result Comment: The eGFR is calculated using the CKD-EPI formula. In most young, healthy individualsthe eGFR will be >90 mL/ min/1.73m2. The eGFR declines with age. An eGFR of 60-89 may be normal in some populations, particularly the elderly, for whom the CKD-EPI formula has not been extensively validated. Use of the eGFR is not recommended in the following populations: Individuals with unstable creatinine concentrations, including patients and those with serious co-morbid conditions. Patients with extremes in muscle mass or diet. The data above are obtained from the National Kidney Disease Education Program ( NKDEP) which additionally recommends that when the eGFR is used in patients with extremes of body mass index for purposesof drug dosing, the eGFR should be multiplied by the estimated BMI.4Result Comment: lipimic sampleLIPIDS Most recent to oldest 1 2 3 [Reference Range]: CHD Risk [4.00-7.30] 15.93 *HI* (01/14/17 3:25 AM) Chol [<=199 mg/dL] 223 mg/dL *HI* (01/14/17 3:25 AM) Trig [<=149 mg/dL] 460 mg/dL 646 mg/dL 722 mg/dL *HI* *HI* *HI* (01/18/17 3:40 AM) (01/17/17 5:48 AM) (01/16/17 5:29 AM) HDL [>=61 mg/dL] 14 mg/dL *LOW* (01/14/17 3:25 AM) LDL (Calculated) [<=99 mg/dL] See Note mg/dL 1 *NA* (01/14/17 3:25 AM) VLDL See Note 2 *NA* (01/14/17 3:25 AM) 1Result Comment: LDL cholesterol cannot be calculated due to very high triglycerides (>400 mg/dL). Recommend Direct LDL if clinically indicated.2Result Comment: VLDL - Cholesterol level cannot be accurately calculated due to very high triglycerides (>400 mg/dL).PARATHYROID PROFILE Most recent to oldest 1 2 3 [Reference Range]: Ca Ion WB [1.05-1.25 mMol/L] 1.12 mMol/L 1.09 mMol/L 1.11 mMol/L (01/17/17 5:48 AM) (01/13/17 1:21 AM) (01/12/17 3:41 AM) Ca Norm WB [1.05-1.25 mMol/L] 1.10 mMol/L 1.03 mMol/L 1.09 mMol/L (01/17/17 5:48 AM) *LOW* (01/12/17 3:41 AM) (01/13/17 1:21 AM) URINE AND STOOL Most recent to oldest [Reference Range]: 1 2 3 UA Turbidity [Clear] Clear (01/11/17 11:19 PM) UA Color [Yellow] Yellow *NA* (01/11/17 11:19 PM) UA pH [5.0-8.0] 6.0 (01/11/17 11:19 PM) UA Spec Grav [<=1.030] 1.010 (01/11/17 11:19 PM) UA Glucose [Negative mg/dL] >=1000 mg/dL *ABN* (01/11/17 11:19 PM) UA Blood [Negative] Negative (01/11/17 11:19 PM) UA Ketones [Negative mg/dL] Negative mg/dL *NA* (01/11/17 11:19 PM) UA Protein [Negative mg/dL] Negative mg/dL (01/11/17 11:19 PM) UA Urobilinogen [0.1-1.0 EU/dL] 0.2 EU/dL (01/11/17 11:19 PM) UA Bili [Negative] Negative *NA* (01/11/17 11:19 PM) UA Leuk Est [Negative] Negative (01/11/17 11:19 PM) UA Nitrite [Negative] Negative (01/11/17 11:19 PM) UA WBC [None Seen /HPF] 0-2 /HPF (01/11/17 11:19 PM) UA RBC [0-2 /HPF] 0-2 /HPF (01/11/17 11:19 PM) UA Bacteria [None Seen /HPF] Occasional /HPF (01/11/17 11:19 PM) UA Sq Epi [Few] None Seen (01/11/17 11:19 PM) HEMATOLOGY Most recent to oldest 1 2 3 [Reference Range]: WBC [3.7-10.4 K/CMM] 4.6 K/CMM 4.3 K/CMM 5.1 K/CMM (01/18/17 3:40 AM) (01/17/17 5:48 AM) (01/16/17 5:29 AM) RBC [4.70-6.10 M/CMM] 4.48 M/CMM 4.62 M/CMM 4.35 M/CMM *LOW* *LOW* *LOW* (01/18/17 3:40 AM) (01/17/17 5:48 AM) (01/16/17 5:29 AM) Hgb [14.0-18.0 g/dL] 12.8 g/dL 13.2 g/dL 12.5 g/dL *LOW* *LOW* *LOW* (01/18/17 3:40 AM) (01/17/17 5:48 AM) (01/16/17 5:29 AM) Hct [42.0-54.0 %] 37.4 % 38.3 % 36.0 % *LOW* *LOW* *LOW* (01/18/17 3:40 AM) (01/17/17 5:48 AM) (01/16/17 5:29 AM) MCV [80.0-94.0 fL] 83.3 fL 83.0 fL 82.7 fL (01/18/17 3:40 AM) (01/17/17 5:48 AM) (01/16/17 5:29 AM) MCH [27.0-31.0 pg] 28.6 pg 28.6 pg 28.8 pg (01/18/17 3:40 AM) (01/17/17 5:48 AM) (01/16/17 5:29 AM) MCHC [32.0-36.0 g/dL] 34.3 g/dL 34.4 g/dL 34.8 g/dL (01/18/17 3:40 AM) (01/17/17 5:48 AM) (01/16/17 5:29 AM) RDW [11.5-14.5 %] 13.8 % 13.8 % 13.7 % (01/18/17 3:40 AM) (01/17/17 5:48 AM) (01/16/17 5:29 AM) Platelet [133-450 K/CMM] 144 K/CMM 143 K/CMM 109 K/CMM (01/18/17 3:40 AM) (01/17/17 5:48 AM) *LOW* (01/16/17 5:29 AM) MPV [7.4-10.4 fL] 7.6 fL 7.3 fL 7.3 fL (01/18/17 3:40 AM) *LOW* *LOW* (01/17/17 5:48 AM) (01/16/17 5:29 AM) Segs [45.0-75.0 %] 61.9 % 59.3 % 63.4 % (01/18/17 3:40 AM) (01/17/17 5:48 AM) (01/16/17 5:29 AM) Lymphocytes [20.0-40.0 %] 29.9 % 32.0 % 28.5 % (01/18/17 3:40 AM) (01/17/17 5:48 AM) (01/16/17 5:29 AM) Monocytes [2.0-12.0 %] 5.6 % 5.9 % 6.6 % (01/18/17 3:40 AM) (01/17/17 5:48 AM) (01/16/17 5:29 AM) Eosinophils [0.0-4.0 %] 1.6 % 1.8 % 0.9 % (01/18/17 3:40 AM) (01/17/17 5:48 AM) (01/16/17 5:29 AM) Basophils [0.0-1.0 %] 1.0 % 1.0 % 0.6 % (01/18/17 3:40 AM) (01/17/17 5:48 AM) (01/16/17 5:29 AM) Segs-Bands # [1.5-8.1 K/CMM] 2.8 K/CMM 2.5 K/CMM 3.2 K/CMM (01/18/17 3:40 AM) (01/17/17 5:48 AM) (01/16/17 5:29 AM) Lymphocytes # [1.0-5.5 K/CMM] 1.4 K/CMM 1.4 K/CMM 1.4 K/CMM (01/18/17 3:40 AM) (01/17/17 5:48 AM) (01/16/17 5:29 AM) Monocytes # [0.0-0.8 K/CMM] 0.3 K/CMM 0.3 K/CMM 0.3 K/CMM (01/18/17 3:40 AM) (01/17/17 5:48 AM) (01/16/17 5:29 AM) Eosinophils # [0.0-0.5 K/CMM] 0.1 K/CMM 0.1 K/CMM 0.1 K/CMM (01/18/17 3:40 AM) (01/17/17 5:48 AM) (01/15/17 4:36 AM) Basophils # [0.0-0.2 K/CMM] 0.1 K/CMM (01/11/17 10:33 PM) RBC Morph Normal (01/11/17 10:33 PM) Plt Morph Normal (01/11/17 10:33 PM) PT [12.0-14.7 seconds] 13.2 seconds (01/17/17 5:48 AM) INR [0.85-1.17] 0.98 (01/17/17 5:48 AM) Thrombin Time [15.0-21.2 14.3 seconds seconds] *LOW* (01/17/17 5:48 AM) Fibrinogen Lvl [230-510 mg/dL] 550 mg/dL *HI* (01/17/17 5:48 AM) D-Dimer 0.42 ug/mL FEU *NA* (01/17/17 5:48 AM) PTT [22.9-35.8 seconds] 33.5 seconds (01/17/17 5:48 AM) TUMOR MARKERS Most recent to oldest [Reference Range]: 1 2 3 CEA [0.0-3.0 ng/mL] 1.2 ng/mL (01/12/17 7:19 PM) CA 125 [0.0-35.0 unit/mL] 11.3 unit/mL (01/12/17 7:19 PM) CA 19-9 [0.0-35.0 unit/mL] 20.0 unit/mL (01/12/17 7:19 PM) AFP TM [0.0-11.0 ng/mL] 1.9 ng/mL (01/13/17 10:41 AM) Immunizations Given and Recorded Vaccine Date Status Refusal Reason pneumococcal 23-valent vaccine 01/14/17 Given Procedures No data available for this section Social History Social History Type Response Smoking Status Never smoker; Ready to change: No; Concerns about tobacco use in household: No; Exposure to Tobacco Smoke None; Cigarette Smoking Last 365 Days No; Reg Smoking Cessation Counseling No Assessment and Plan Extracted from: Title: Therapeutic Plasma Exchange Author: Kathi Bustos MD Date: Transfusion Medicine/Apheresis Consult Note: Patient Room: [address] JARAD OCASIO Isaiah 36y (: 1980) Attending: Joshua Romero MD Service: Internal Medicine DATE OF CONSULT:01/15/2017 REFERRING Service: GI team CONSULTING PHYSICIAN: Dr. Vargas REASON FOR CONSULTATION: Acute pancreatitis secondary to hypertriglyceridemia HISTORY OF PRESENT ILLNESS: The patient is a 36 year old male with a history type 2 diabetes, hypertension , hypertriglyceridemia, and recurrent acute pancreatitis who presented with epigastric abdominal pain associated with nause a/vomitting admitted to the ICU for acute pancreatitis (with Triglyceride > 4000). After an insulin drip the patient TG decreased to 426 but then rebounded to 1250. CT imaging revealed 2 cystic masses in the tail and head of the pancreas. Clinically the patient appears to no longer respond to treatment. Due to the patient's recurrent history of acute pancreatitis secondary t o hypertriglyceridemia, GI has a goal TG < 150. Transfusion Medicine is being consulted to perform plasma exchange for acute pancreatitis 2/2 to hypertriglyceridemia with a goal TG<150. According to the 2016 ASFA guidelines, PLEX is considered a category III indication for plasmapheresis. PAST MEDICAL HISTORY: Type 2 DM Acute pancreatitis Hypertrigliceridemia Asthma Hypertension PAST SURGICAL HISTORY: No qualifying data available SOCIAL HISTORY: Tobacco Details: Use: Never smoker. Ready to change: No. Household tobacco concerns: No. Tobacco smoke exposure: None. Did the Patient Smoke Cigarettes Anytime During the Last 365 Days? No. Cessation Counseling Provided? No. Per patient, he doesn't use drugs. He has been doing regular excerise for weight loss and taking medications for lowing his lipids FAMILY HISTORY: Per patient, his father was adpted child and also left the patient many yearss ago. The maternal side family members were all healthy with 90 some years of life longitude and his mother is 76 y/o and is recently had some cardiac issues. Allergies (1) Active Reaction NKDA None documented Medications (20) Active Scheduled Meds (7): 01/15/17 Insulin regular (insulin regular 100 units/mL human recombinant) 5 unit SUB-Q TID-Before Meals 01/13/17 docusate-senna (docusate-senna 50 mg-8.6 mg oral tablet) 2 tab PO Q12H 01/14/17 enoxaparin 40 mg SUB-Q [id number] 01/12/17 gemfibrozil 600 mg PO BID-Before Meals 01/15/17 insulin glargine (Lantus Solostar Pen 100 units/mL subcutaneous solution) 25 unit SUB-Q Daily 0 ml/hr 01/12/17 niacin 500 mg PO Bedtime 01/13/17 oxyCODONE (oxyCODONE 5 mg oral tablet) 5 mg PO Q6H Unscheduled Meds: None PRN Meds (12): 01/13/17 Dextrose 50% in Water IV (Dextrose 50% Syringe) 12.5 gm IVP PRN 01/13/17 Dextrose 50% in Water IV (Dextrose 50% Syringe) 25 gm IVP PRN 01/13/17 Insulin regular 1 unit SUB-Q TID-Before Meals 01/13/17 Insulin regular 2 unit SUB-Q TID-Before Meals 01/13/17 Insulin regular 3 unit SUB-Q TID-Before Meals 01/13/17 Insulin regular 4 unit SUB-Q TID-Before Meals 01/13/17 Insulin regular 5 unit SUB-Q TID-Before Meals 01/13/17 glucagon 1 mg IM PRN 01/12/17 hydromorphone (Dilaudid) 0.2 mg IVP Q3H 01/12/17 ondansetron (Zofran) 4 mg IVP Q8H 01/12/17 polyethylene glycol 3350 (MiraLax) 17 gm PO BID 01/13/17 simethicone 80 mg PO Q6H One Time Meds: None Continuous Infusions (1): 01/13/17 sodium chloride 0.9% 1000 ml INJ 1,000 mL 1,000 mL 125 ml/hr REVIEW OF SYSTEMS: GEN: +weight loss, night sweats, - fevers, chills, fatigue EYES: + vision changes, - headaches, discharge CVS: + chest pain - palpitations, edema RESP: + wheezing, shortness of breath, cough, hematemesis ABD: + abdominal pain, nausea, vomitting MSK: + weakness, joint pain HEME/LYMPH: -bruising, bleeding SKIN: + atheroma - rashes, jaundice PHYSICAL EXAMINATION: Vital Signs - Reviewed Vitals Tmp(F) Pulse BP RR SpO2 FIO2 01/15 16:03 98.0 86 136/75 19 99 --- 01/15 11:09 97.9 91 147/87 18 100 --- 01/15 08:20 97.9 76 115/79 18 100 --- 01/15 04:11 97.8 67 126/80 18 98 --- 01/15 00:33 97.9 85 123/90 20 99 --- 24 Hr Tmax: 98.4F (36.89c) at 01/14 20:52 Vital Signs are the last 5 in the past 48 hours. Date Wt(kg) Wt(lb) Ht(cm) Ht(in) Method 01/12 77.27 170.00 177.80 70.00 Measured 01/11 (initial) 81.82 180.00 Estimated 01/11 177.80 70.00 Stated General: Alert and conversant man HEENT: NC/AT; EOMI, yellow plaque on the right upper eyelid; moist mucosa. CVS: RRR, no M,R,G Chest: Symmetric chest rise, CTAB, no wheezing Abdomen: TTP in epigastrium and upper quadrant; BS present; no distension; guarding Extremities: warm, well perfused, 2+ peripheral pulses; no edema. Skin: no bruising, rashes, or jaundice Psych: alert and oriented x 3 DATA: 24hr Labs 01/15 1651 Glucose POC 247 H 01/15 1111 Glucose POC 217 H 01/15 0822 Glucose POC 312 H 01/15 0436 Glucose Lvl 302 H BUN 10 Creatinine Lvl 0.80 Sodium Lvl 132 L Potassium Lvl 4.4 Chloride Lvl 101 CO2 24 AGAP 11.4 Calcium Lvl 8.0 L eGFR 114 Trig 1250 H WBC 5.0 RBC 4.61 L Hgb 13.4 L Hct 38.6 L MCV 83.8 MCH 29.1 MCHC 34.7 RDW 13.5 Platelet 109 L MPV 7.4 Segs 61.9 Monocytes 5.0 Lymphocytes 30.0 Eosinophils 2.4 Basophils 0.7 Segs-Bands # 3.1 Lymphocytes # 1.5 Monocytes # 0.3 Eosinophils # 0.1 01/15 2024 Glucose POC 272 H ASSESSMENT AND PLAN: The patient is a 36 year old male with a history of DM, hypertriglyceridemia, and multiple episodes of acute pancreatitis who was admitted for acute pancreatitis (TG> 4000) that improved after an insulin drip (426) but then rebounded to 1250. Currently the patient is not responsive to treatment so Transfusion Medicine was consulted by GI to perform plasma exchange f or acute pancreatitis secondary to hypertriglyceridemia with a goal TG < 150 due to the chronicity of acute pancreatitis. According to the 2016 ASFA guidelines, PLEX is considered a category III indication for plasmapheresis. The patient currently does not have any vascular access. The patient was evaluated by our apheresis nurse and he is not a candidate for two peripheral IV lines to perform the procedure. The patient will need to have a rosemary catheter placed for vascular access. We will need to confirm proper placement of the access after its placed. Consent was obtained and the patient was educated about the risk and benefits associated with the procedure. All of the patients questsions were answered . TPE will be performed using 5% albumin as the main replacement fluid. We will monitor the patient's response and his lab value to determine the procedure interval if multiple procedures [place] [id number], PGY-3 Transfusion Medicine/Apheresis Service Attending Note: This is a 36 y/o male with history of DM, HTN and multiple episodes of acute pancratitis due to hypertriglyceridemia who was admitted for recurrent acute pancreatitis with triglyceride (TG) level > 4000 in December. Initially his TG drop to 400 with insluin drip, but rebounded to 5167-8123. Currently the patient still requirs pain medication for symptoms. Per record, the patient has had 17 similar e pisodes. We are consulted by the GI team for his further management. 1.This is a young patient with multiple recurrent episodes of acute pancreatitis due to hypertriglycerdemia. Currently, he is still symptomatic due to high level of TG despite maximal medication treatme nt. After discussion with the GI team, we agreed to perform plasmapheresis (TPE ) at least one time. We will monitor the patient for his clinical response and TG level to determine the need for additona l procedure. Consent has been obtained. Variable outcomes and risks have been explained to the patient and his questions and concerns have been answered. 2.The patient has history DM and HTN. His peripheral access is not optimal after our nurse's evaluation. Central access is needed. We have informed the primary ans GI teams. 3.For long-term management: (1). The etiology of his high TG level is not clear. Per patient, he had a biopsy scheduled, but was not able to be performed due to his current episode. I have suggested the GI fellow for further investigation. (2). TPE effect is transit, I made sure that the GI team will maximize his medication treatment. (3). We will determine his need for a long-term TPE requirement based upon his clinical and laboratory response to the coming treatment. I have seen the patient, performed physical examination with the resident and reviewed the related medical record. I have discussed this case with patient, the primary team and GI team in detail. The teams agreed with the above treatment plan. Thanks for consultation. Joann Vargas MD ID# [id number] Extracted from: Title: ICU Admission H&P * Author: Karol Barajas MD Date: 01/12/17 Patient: JARAD OCASIO Age: 36 years Sex: Male : 1980 Associated Diagnoses: None Author: Karol Barajas MD Basic Information CC: abdominal pain, N/V/D History of Present Illness 36 yo M with HTN, NIDDMII, hypertriglyceridemia, recurrent acute on chronic pancreatitis, and ?pancreatic pseudocysts presents with constant abdominal pain , N/V/D. Patient reports that he was hospitaliz ed early December 2016 for the same problem and has been having these sx since then. Says the abdominal pain was a 10/10 when he first got to the hospital and that now it is 5/10. Says it's a constant, dull pain that feels like a severe muscle cramp. Says it radiates to his back and left side of his abdomen (constantly). There is nothing that relieves the pain or makes it feel worse. Patient reports N/V e veryday since his most recent episode early December. Vomiting is "bile" and brown- yellow, denies any blood in vomiting. Diarrhea is nonbloody and brown. Patient is not compliant with his home meds (Lovaza, gemfibrozil 600 BID, niacin 500qD, novolog flex pen 100, lantus flex pen 100) . Patient says he has had nearly 20 episodes and was told that he needs to see a specialist soon and that he would have to b e screened for pancreatic cancer. He said he unintentionally lost 40 pounds between MayJun 2016 to 2016, has night sweats often. Denies F/C. Has increased urinary frequency and thirst. In ED patient was given IVF, zofran, and morphine. Review of Systems Constitutional: Sweats, Weakness. Eye: Negative. Ear/Nose/Mouth/Throat: Dry mouth. Respiratory: Negative. Cardiovascular: Negative. Gastrointestinal: Nausea, Vomiting, Diarrhea, Abdominal pain. Genitourinary: Polyuria . Hematology/Lymphatics: Negative. Endocrine: Excessive thirst, Polyuria. Immunologic: Negative. Musculoskeletal: Back pain. Integumentary: Negative. Neurologic: Alert and oriented X4. Psychiatric: Negative. All other systems are negative Health Status Allergies: No active allergies have been recorded., No qualifying data available Current medications: (Selected) Inpatient Medications Ordered D5W 1/2NS 1,000 mL: 150 ml/hr, IV, Stop: 02/11/17 1:05:00 CDT Dextrose 50% Syringe: 12.5 gm, 25 mL, IVP, PRN, PRN: Blood Glucose Results Dextrose 50% Syringe: 25 gm, 50 mL, IVP, PRN, PRN: Blood Glucose Results Insulin regular 100 unit + sodium chloride 0.9% INJ 99 mL: Start Insulin Drip Per ICU Protocol, IVPB, Stop: 02/11/17 0:36:00 CDT enoxaparin: 40 mg, SUB-Q, [id number] gemfibrozil: 600 mg, PO, BID morphine Sulfate: 2 mg, IVP, Q4H, PRN: Pain Score 7-10 pneumococcal 23-valent vaccine: 0.5 mL, IM, Daily Documented Medications Documented fenofibrate 48 mg oral tablet: 1 cap, PO, Daily, 30 cap pantoprazole 40 mg oral enteric coated tablet: 1 tab, PO, Daily, 30 tab, Medications (8) Active Scheduled: (3) enoxaparin 40 mg, SUB-Q, [id number] gemfibrozil 600 mg, PO, BID pneumococcal 23-valent vaccine 0.5 mL, IM, Daily Continuous: (2) D5W 1/2NS 1,000 mL 1,000 mL, IV, 150 ml/hr insulin reg human rec 100 unit/ml INJ 1ml 100 unit + sodium chloride 0.9% INJ 99 mL 99 mL, IVPB PRN: (3) Dextrose 50% 50 ml INJ syringe 25 gm 50 mL, IVP, PRN Dextrose 50% 50 ml INJ syringe 12.5 gm 25 mL, IVP, PRN morphine Sulfate 2 mg, IVP, Q4H Problem list: All Problems Pain / SNOMED CT 84448736 / Confirmed Pancreatitis / SNOMED CT 496494287 / Confirmed, Active Problems (2) Pain Pancreatitis Histories Past Medical History: No active or resolved past medical history items have been selected or recorded. Family History: No family history items have been selected or recorded. Procedure history: No active procedure history items have been selected or recorded. Social History Social & Psychosocial Habits Tobacco 01/11/2017 Use: Never smoker Ready to change: No Concerns about tobacco use in household: No Exposure to Tobacco Smoke None Cigarette Smoking Last 365 Days No Reg Smoking Cessation Counseling No . Physical Examination VS/Measurements Vital Signs (last 24 hrs) Last Charted Temp Oral 98.6 DegF (JAN 12 01:29) Heart Rate Apical 90 bpm (JAN 12 02:33) Resp Rate 18 BRMIN (JAN 12 02:33) SBP 125 mmHg (JAN 12 02:33) DBP 80 mmHg (JAN 12 02:33) SpO2 97 % (JAN 12 02:33) Weight 77.273 kg (JAN 12 02:27) Height 177.8 cm (JAN 12 02:27) BMI 24.44 (JAN 12 02:27) , Measurements from flowsheet : Measurements 01/12/2017 02:27 Heparin Dosing Weight (kg) 77.27 01/12/2017 02:27 Height 177.8 cm Height Collection Method Stated Weight 77.273 kg Dosing Weight Difference Percent -5.555 % Dosing Weight Collection Method Measured Body Surface Area 1.9536 m2 Body Mass Index 24.44 m2 01/11/2017 19:00 Heparin Dosing Weight (kg) 81.82 01/11/2017 18:57 Height 177.8 cm Height Collection Method Stated Weight 81.818 kg Dosing Weight Difference Percent -5.264 % Dosing Weight Collection Method Estimated Body Surface Area 2.0102 m2 Body Mass Index 25.88 m2 General: Alert and oriented, No acute distress. Eye: Pupils are equal, round and reactive to light, Extraocular movements are intact, Normal conjunctiva. HENT: Normocephalic, Normal hearing, Dry oral mucosa. Neck: Supple, Non-tender, No carotid bruit, No jugular venous distention. Respiratory: Lungs are clear to auscultation, Respirations are non-labored, Breath sounds are equal, Symmetrical chest wall expansion, No chest wall tenderness. Cardiovascular: Normal rate, Regular rhythm, No murmur, No gallop, Good pulses equal in all extremities. Gastrointestinal: Soft, Normal bowel sounds, mild mid epigastric tenderness, no rebounding, rigidity, negative hemphill sign, negative rovsing sign. . Musculoskeletal Normal range of motion. Normal strength. No swelling. Integumentary: Warm, Dry. Neurologic: Alert, Oriented. Cognition and Speech: Oriented. Psychiatric: Cooperative. Review / Management Results review: Labs (Last four charted values) WBC 6.2 (JAN 11) Hgb 14.2 (JAN 11) Hct L 38.1 (JAN 11) Plt L 131 (JAN 11) Na L 130 (JAN 11) K 3.9 (JAN 11) CO2 27 (JAN 11) Cl 95 (JAN 11) Cr 0.80 (JAN 11) BUN 9 (JAN 11) Glucose Random C 577 (JAN 11) Mg 1.9 (JAN 11) Phos 3.3 (JAN 11) Ca L 8.1 (JAN 11) . Impression and Plan 36 yo M with HTN, NIDDMII, hypertriglyceridemia, recurrent acute on chronic pancreatitis, and ?pancreatic pseudocysts admitted with recurrent acute on chronic pancreatitis. Problem List 1. Acute on chronic pancreatitis (recurrent) 2. NIDDMII 3. Hypertriglyceridemia 4. HTN 1. Neuro - AAOx4 2. CVS - HTN - resolved 3. Resp - no difficulty breathing 4. Renal/Electrolytes - monitor BMP 5. GI/Nutrition #Acute on Chronic pancreatitis (recurrent) - Monitor BMP, glucose, patient pain severity - c/w insulin regular - Add D50, gemfibrozil, morphine for pain, niacin, insulin - Patient has very mild pain at this moment - On IVF 6. Endo #NIDDMII - D50 - Glucose fingersticks q1 then q2 once stable #Hypertriglyceridemia - monitor - c/w Insulin regular, niacin, gemfibrozil - TG levels q12 7. ID/Heme - None - Monitor BMP, CBC ICU: GI PPx: none DVT PPx: enoxaparin Diet: NPO Code status: full code Dispo: pending improvement - ICU care Lines/drains/tubes 01/12/2017 02:34 Peripheral Lines: Antecubital Right 18 gauge Over the needle catheter 01/12/2017 02:34 Peripheral Lines: Forearm Right 20 gauge Over the needle catheter Debra Barajas MD [facility]- PGY - 1 Addendum by Jagdeep Ybarra MD on [facility] Pulmonary & Critical Care Medicine Attending 01/12/2017 07:55 Teaching Attestation & Critical Care Progress Note I saw, evaluated, and participated in the care of the patient with the resident physician Dr. Karol Barajas on the date of this note. I concur with the assessment and plan in their note dated 7. I have extensively reviewed the patient's available history, information , labs and imaging. My appropriate corrections, additions, and emphasized points if appropriate are below. The patient's condition has high probability for clinically significant or life-threatening deterioration and requires the highest level of physician preparedness to intervene urgently and thus necessit ates MICU care. Critical care time was 33 min excluding procedures. Problem List / Plan 1. Critical care mgmt of recurrent pancreatitis due to hypertriglyceridemia ( has had cholecystectomy) - Increase dextrose-IVF today - NPO (nausea) - Pain control - Abx not indicated - Determine CTSI on last CT: ?pseudocyst - GI / IR consultation - Needs Lovaza eventually 2. Inguinal cyst, painful - rule out abscess - scrotal ultrasound 3. HTN Updated pt's family and nursing on treatment plan and expected critical care course.
--- OUTSIDE RECORDS SUMMARY | 2018-02-23 19:14 | XMS REPORT | Summary of Care ---
:1980 Author Organization [facility] Address [address], [place] [address]- Encounter [facility] Nuria(FIN) [id number] Date(s): 02/02/17 - 02/02/17 [facility] [address] [place] [phone] Discharge Disposition: Home or Self Care Attending Physician: Tian Healy MD Referring Physician: Tian Healy MD Vital Signs Most recent to oldest [Reference Range]: 1 Systolic Blood Pressure [90-140 mmHg] 131 mmHg (02/02/17 2:57 PM) Respiratory Rate [14-20 BRMIN] 16 BRMIN (02/02/17 2:57 PM) Problem List Condition Effective Dates Status Health Status Informant Diabetes mellitus(Confirmed) Resolved Pain(Confirmed) 05/04/11 Active Pancreatitis(Confirmed) 05/16/11 Active Pancreatitis(Confirmed) Resolved Allergies, Adverse Reactions, Alerts Substance Reaction Severity Status NKDA Active Medications Creon 36,000 units oral delayed release capsule See Instructions, 2 caps (72,000 units) TID w/ meals, 1 cap (36,000 units) TID with snacks; may be mixed with soft foods such as applesauce, # 270 cap, 0 Refill(s), Pharmacy: [facility] [id number] Start Date: 02/02/17 Status: Ordered Results No data available for this section Immunizations Given and Recorded Vaccine Date Status Refusal Reason pneumococcal 23-valent vaccine 01/14/17 Given Procedures Procedure Date Related Diagnosis Body Site Cholecystectomy Social History Social History Type Response Smoking Status Never smoker; Ready to change: No; Concerns about tobacco use in household: No; Exposure to Tobacco Smoke None; Cigarette Smoking Last 365 Days No; Reg Smoking Cessation Counseling No Assessment and Plan No data available for this section
--- OUTSIDE RECORDS SUMMARY | 2018-02-23 19:14 | XMS REPORT | Summary of Care ---
:1980 Author Organization [facility] Address [address] [place], [place] [address]- Encounter [facility] Nuria(FIN) [id number] Date(s): 03/30/17 - 03/30/17 [facility] [address] [place] [phone] Discharge Disposition: Home or Self Care Attending Physician: Tian Healy MD Referring Physician: Tian Healy MD Vital Signs Most recent to oldest [Reference Range]: 1 Height 177.8 cm (03/30/17 4:26 PM) Blood Pressure [90-140/60-90 mmHg] 133/91 mmHg (03/30/17 4:26 PM) Respiratory Rate [14-20 BRMIN] 16 BRMIN (03/30/17 4:26 PM) Peripheral Pulse Rate [60-100 bpm] 105 bpm *HI* (03/30/17 4:26 PM) Weight 81.364 kg (03/30/17 4:26 PM) Body Mass Index 25.74 m2 (03/30/17 4:26 PM) Problem List Condition Effective Dates Status Health Status Informant Diabetes mellitus(Confirmed) Resolved Pancreatitis(Confirmed) 05/16/11 Active Pancreatitis(Confirmed) Resolved Allergies, Adverse Reactions, Alerts Substance Reaction Severity Status NKDA Active Medications amoxicillin 500 mg oral capsule 500 mg=1 cap, PO, TID, 10days, # 42 cap, 0 Refill(s) Start Date: 03/30/17 Stop Date: 04/13/17 Status: OrderedLyrica 50 mg oral capsule 50 mg=1 cap, PO, TID, # 30 cap, 2 Refill(s), called to pharmacy Start Date: 03/30/17 Status: Ordered Results No data available for this section Immunizations Given and Recorded Vaccine Date Status Refusal Reason pneumococcal 23-valent vaccine 01/14/17 Given Procedures Procedure Date Related Diagnosis Body Site Cholecystectomy 02/09/13 Social History Social History Type Response Substance Abuse Use: None. Alcohol Current, Type Liquor. Frequency: 1-2 times per year. Smoking Status Never smoker; Ready to change: No; Concerns about tobacco use in household: No; Exposure to Tobacco Smoke None; Cigarette Smoking Last 365 Days No; Reg Smoking Cessation Counseling No Assessment and Plan No data available for this section
--- OUTSIDE RECORDS SUMMARY | 2018-02-23 19:14 | XMS REPORT | Summary of Care ---
:1980 Author Organization [facility] Address [address] [place] [id number] Encounter HQ Georger_[email or web address](FIN) [id number] Date(s): 02/08/17 - 02/12/[address] Professional Services provided by [facility] [place] [address]- Discharge Disposition: Home or Self Care Attending Physician: Billie Lees MD Admitting Physician: Jagdeep Ybarra MD Vital Signs Most recent to oldest [Reference 1 2 3 Range]: Height 177.8 cm 177.8 cm (02/09/17 12:50 AM) (02/08/17 4:08 PM) Current Weight 80.199 kg (02/12/17 4:35 AM) Temperature Oral [96.4-99.1 98.1 DegF 97.6 DegF 97.6 DegF DegF] (02/12/17 3:00 PM) (02/12/17 8:17 AM) (02/12/17 4:07 AM) Blood Pressure [90-140/60-90 132/89 mmHg 117/70 mmHg 131/90 mmHg mmHg] (02/12/17 3:00 PM) (02/12/17 8:17 AM) (02/12/17 4:07 AM) Respiratory Rate [14-20 BRMIN] 20 BRMIN 20 BRMIN 18 BRMIN (02/12/17 3:00 PM) (02/12/17 8:17 AM) (02/12/17 4:07 AM) Peripheral Pulse Rate [60-100 75 bpm 75 bpm 74 bpm bpm] (02/12/17 3:00 PM) (02/12/17 8:17 AM) (02/12/17 4:07 AM) Weight 82.813 kg 81.818 kg (02/09/17 12:50 AM) (02/08/17 4:08 PM) Body Mass Index 26.2 m2 25.88 m2 (02/09/17 12:50 AM) (02/08/17 4:08 PM) Problem List Condition Effective Dates Status Health Status Informant Diabetes mellitus(Confirmed) Resolved Pancreatitis(Confirmed) 05/16/11 Active Pancreatitis(Confirmed) Resolved Allergies, Adverse Reactions, Alerts Substance Reaction Severity Status NKDA Active Medications atorvastatin 80 mg, Route: PO, Drug form: TAB, Bedtime, Dosing Weight 82.813, kg, Start date : 02/12/17 21:00:00 CDT, Duration: 30 day, Stop date: 03/13/17 21:00:00 CDT Start Date: 02/12/17 Stop Date: 02/12/17 Status: CanceledBenadryl 10 mg, 4 mL, Route: PO, Drug form: LIQ, ONCE, Dosing Weight 82.813, kg, Start date: 02/09/17 23:50:00 CDT, Stop date: 02/09/17 23:50:00 CDT Notes: (Same as: Benadryl) Start Date: 02/09/17 Stop Date: 02/10/17 Status: CompletedBentyl 20 mg, 1 tab, Route: PO, Drug form: TAB, QID, Dosing Weight 82.813, kg, Start date: 02/12/17 9:00:00CDT, Duration: 30 day, Stop date: 03/13/17 21:00:00 CDT Notes: (Same as: Bentyl) Start Date: 02/12/17 Stop Date: 02/12/17 Status: Discontinuedcalcium carbonate 500 mg (200 mg elemental calcium) oral tablet 1,000 mg, 2 tab, Route: PO, Drug form: CHEWTAB, PRN, Dosing Weight 82.813, kg, PRN Abnormal Lab Result, FOR ICU USE ONLY, Start date: 02/09/17 1:58:00 CDT, Duration: 30 day, Stop date: 03/11/17 1:57:00CDT Notes: (Same As: Mg)Calcium Carbonate 500 qu=989 mg elemental calcium Dose=_ mg calcium carbonate ( mg elemental calcium) Start Date: 02/09/17 Stop Date: 02/10/17 Status: Discontinuedcalcium carbonate 500 mg (200 mg elemental calcium) oral tablet 500 mg, 1 tab, Route: PO, Drug form: CHEWTAB, PRN, Dosing Weight 82.813, kg, PRN Abnormal Lab Result, FOR ICU USE ONLY, Start date: 02/09/17 1:58:00 CDT, Duration: 30 day, Stop date: 03/11/17 1:57:00 CDT Notes: (Same As: Mg)Calcium Carbonate 500 wo=626 mg elemental calcium Dose=_ mg calcium carbonate ( mg elemental calcium) Start Date: 02/09/17 Stop Date: 02/10/17 Status: Discontinuedcalcium gluconate + sodium chloride 0.9% INJ 50 mL 1 gm, 10 mL, Route: IVPB, PRN, Dosing Weight 82.813, kg, PRN Abnormal Lab Result , Start date: 02/09/17 1:58:00 CDT, Duration: 30 day, Stop date: 03/11/17 1:57: 00 CDT, FOR ICU USE ONLY Notes: WASTE: F/P - Sink; E - Municipal Trash Bin Start Date: 02/09/17 Stop Date: 02/10/17 Status: DiscontinuedCreon 24,000 units oral delayed release capsule 1 cap, Route: PO, Drug Form: DRC, Dosing Weight 82.813, kg, TID, Start date: 07/28 9:00:00 CDT, Duration: 30 day, Stop date: 03/10/17 17:00:00 CDT Notes: Same as: Carter PEÑA 24 : lipase 24,000 units, protease 76,000 units, amylase 120,000 units Start Date: 02/09/17 Stop Date: 02/12/17 Status: Discontinueddextrose 10% in water 1,000 mL 1,000 mL, Rate: 150 ml/hr, Infuse over: 6.7 hr, Route: IV, Dosing Weight 81.818 kg, Total Volume: 1,000, Start date: 02/08/17 22:02:00 CDT, Stop date: 03/10/17 22:01:00 CDT Start Date: 02/08/17 Stop Date: 02/09/17 Status: Discontinueddextrose 10% in water 1,000 mL 1,000 mL, Rate: 200 ml/hr, Infuse over: 5 hr, Route: IV, Dosing Weight 82.813 kg , Total Volume: 1,000, Start date: 02/09/17 16:47:00 CDT, Duration: 30 day, Stop date: 03/11/17 16:46:00 CDT Start Date: 02/09/17 Stop Date: 02/10/17 Status: DiscontinuedDextrose 50% Syringe 25 gm, 50 mL, Route: IVP, Drug Form: INJ, Dosing Weight 81.818, kg, PRN, PRN Blood Glucose Results, Start date: 02/08/17 17:27:00 CDT, Duration: 30 day, Stop date: 03/10/17 17:26:00 CDT Start Date: 02/08/17 Stop Date: 02/10/17 Status: DiscontinuedDextrose 50% Syringe 12.5 gm, 25 mL, Route: IVP, Drug Form: INJ, Dosing Weight 81.818, kg, PRN, PRN Blood Glucose Results, Start date: 02/08/17 17:27:00 CDT, Duration: 30 day, Stop date: 03/10/17 17:26:00 CDT Start Date: 02/08/17 Stop Date: 02/10/17 Status: DiscontinuedDextrose 50% Syringe 25 gm, 50 mL, Route: IVP, Drug Form: INJ, Dosing Weight 82.813, kg, PRN, PRN Blood Glucose Results, Start date: 02/10/17 20:43:00 CDT, Duration: 30 day, Stop date: 03/12/17 20:42:00 CDT Start Date: 02/10/17 Stop Date: 02/12/17 Status: DiscontinuedDextrose 50% Syringe 12.5 gm, 25 mL, Route: IVP, Drug Form: INJ, Dosing Weight 82.813, kg, PRN, PRN Blood Glucose Results, Start date: 02/10/17 20:43:00 CDT, Duration: 30 day, Stop date: 03/12/17 20:42:00 CDT Start Date: 02/10/17 Stop Date: 02/12/17 Status: Discontinueddicyclomine 20 mg oral tablet 20 mg=1 tab, PO, QID, # 28 tab, 0 Refill(s), Pharmacy: [facility] [id number] Start Date: 02/12/17 Stop Date: 02/19/17 Status: OrderedDilaudid 1 mg, Route: IV, ONCE, Dosing Weight 81.818, kg, Start date: 02/08/17 16:38:00 CDT, Stop date: 02/08/17 16:38:00 CDT Start Date: 02/08/17 Stop Date: 02/08/17 Status: CompletedDilaudid 1 mg, Route: IV, ONCE, Dosing Weight 81.818, kg, Start date: 02/08/17 21:15:00 CDT, Stop date: 02/08/17 21:15:00 CDT Start Date: 02/08/17 Stop Date: 02/08/17 Status: CompletedDilaudid 0.5 mg, 0.25 mL, Route: IVP, Drug form: INJ, ONCE, Dosing Weight 82.813, kg, Priority: STAT, Start date: 02/09/17 5:29:00 CDT, Stop date: 02/09/17 5:29:00 CDT Notes: Same as: Dilaudid Start Date: 02/09/17 Stop Date: 02/09/17 Status: CompletedDilaudid 0.5 mg, 0.25 mL, Route: IV, Drug form: INJ, Q3H, Dosing Weight 82.813, kg, PRN Pain Score 7-10, Start date: 02/09/17 7:47:00 CDT, Stop date: 03/11/17 7:46:00 CDT Notes: Same as: Dilaudid Start Date: 02/09/17 Stop Date: 02/12/17 Status: DiscontinuedDilaudid 0.5 mg, 0.25 mL, Route: IVP, Drug form: INJ, Q6H, Dosing Weight 82.813, kg, PRN Pain Score 7-10, Start date: 02/09/17 2:09:00 CDT, Duration: 30 day, Stop date: 03/11/17 2:08:00 CDT Notes: Same as: Dilaudid Start Date: 02/09/17 Stop Date: 02/09/17 Status: DiscontinuedDilaudid 1 mg, Route: IVP, ONCE, Dosing Weight 81.818, kg, Priority: STAT, Start date: 17:32:00 CDT,Stop date: 02/08/17 17:32:00 CDT Start Date: 02/08/17 Stop Date: 02/08/17 Status: CompletedDilaudid 1 mg, Route: IVP, ONCE, Dosing Weight 81.818, kg, Priority: STAT, Start date: 23:11:00 CDT,Stop date: 02/08/17 23:11:00 CDT Start Date: 02/08/17 Stop Date: 02/08/17 Status: CompletedDilaudid 1 mg, Route: IVP, ONCE, Dosing Weight 81.818, kg, Priority: STAT, Start date: 19:38:00 CDT,Stop date: 02/08/17 19:38:00 CDT Start Date: 02/08/17 Stop Date: 02/08/17 Status: Completedenoxaparin 40 mg, 0.4 mL, Route: SUB-Q, Drug form: INJ, [id number], Dosing Weight 82.813, kg , Start date: 02/09/17 2:00:00 CDT, Duration: 30 day, Stop date: 03/10/17 2:00: 00 CDT Notes: (Same as: Lovenox) Start Date: 02/09/17 Stop Date: 02/12/17 Status: Discontinuedgemfibrozil 600 mg, 1 tab, Route: PO, Drug form: TAB, BID, Dosing Weight 82.813, kg, Start date: 02/09/17 9:00:00 CDT, Duration: 30 day, Stop date: 03/10/17 17:00:00 CDT Notes: (Same as: Lopid) Start Date: 02/09/17 Stop Date: 02/12/17 Status: Discontinuedglucagon 1 mg, Route: IM, Drug form: PDR/INJ, PRN, Dosing Weight 82.813, kg, PRN Blood Glucose Results, Startdate: 02/10/17 20:43:00 CDT, Duration: 30 day, Stop date: 03/12/17 20:42:00 CDT Start Date: 02/10/17 Stop Date: 02/12/17 Status: Discontinuedinsulin aspart 6 unit, 0.06 mL, Route: SUB-Q, Drug form: SOLN, TID-Before Meals, Dosing Weight 82.813, kg, PRN Blood Glucose Results, Start date: 02/10/17 20:43:00 CDT, Duration: 30 day, Stop date: 03/12/17 20:42:00 CDT Notes: Roll in palms of hands gently; Do not shake vigorously. (Same as: The [place] Cellar)"single patient use only"WASTE: F/P - Black; E - Municipal Trash Bin Stable for 28 days at room temperature.Expires in days from Date Start Date: 02/10/17 Stop Date: 02/12/17 Status: Discontinuedinsulin aspart 4 unit, 0.04 mL, Route: SUB-Q, Drug form: SOLN, TID-Before Meals, Dosing Weight 82.813, kg, PRN Blood Glucose Results, Start date: 02/10/17 20:43:00 CDT, Duration: 30 day, Stop date: 03/12/17 20:42:00 CDT Notes: Roll in palms of hands gently; Do not shake vigorously. (Same as: The French Cellar)"single patient use only"WASTE: F/P - Black; E - Municipal Trash Bin Stable for 28 days at room temperature.Expires in days from Date Start Date: 02/10/17 Stop Date: 02/12/17 Status: Discontinuedinsulin aspart 2 unit, 0.02 mL, Route: SUB-Q, Drug form: SOLN, TID-Before Meals, Dosing Weight 82.813, kg, PRN Blood Glucose Results, Start date: 02/10/17 20:43:00 CDT, Duration: 30 day, Stop date: 03/12/17 20:42:00 CDT Notes: Roll in palms of hands gently; Do not shake vigorously. (Same as: The [place] Cellar)"single patient use only"WASTE: F/P - Black; E - Municipal Trash Bin Stable for 28 days at room temperature.Expires in days from Date Start Date: 02/10/17 Stop Date: 02/12/17 Status: Discontinuedinsulin aspart 8 unit, 0.08 mL, Route: SUB-Q, Drug form: SOLN, TID-Before Meals, Dosing Weight 82.813, kg, PRN Blood Glucose Results, Start date: 02/10/17 20:43:00 CDT, Duration: 30 day, Stop date: 03/12/17 20:42:00 CDT Notes: Roll in palms of hands gently; Do not shake vigorously. (Same as: NovoLOG)"single patient use only"WASTE: F/P - Black; E - Municipal Trash Bin Stable for 28 days at room temperature.Expires in days from Date Start Date: 02/10/17 Stop Date: 02/12/17 Status: Discontinuedinsulin aspart 10 unit, 0.1 mL, Route: SUB-Q, Drug form: SOLN, TID-Before Meals, Dosing Weight 82.813, kg, PRN Blood Glucose Results, Start date: 02/10/17 20:43:00 CDT, Duration: 30 day, Stop date: 03/12/17 20:42:00 CDT Notes: Roll in palms of hands gently; Do not shake vigorously. (Same as: NovoLOG)"single patient use only"WASTE: F/P - Black; E - Municipal Trash Bin Stable for 28 days at room temperature.Expires in days from Date Start Date: 02/10/17 Stop Date: 02/12/17 Status: Discontinuedinsulin detemir 15 unit, 0.15 mL, Route: SUB-Q, Drug form: SOLN, Q12H, Dosing Weight 82.813, kg , Start date: 02/12/17 21:00:00 CDT, Duration: 30 day, Stop date: 03/14/17 9:00: 00 CDT Notes: Same as Anthony not hold insulin without contacting prescriberWASTE: F/ P - Black; E - Municipal Trash Bin "single patient use only" Start Date: 02/12/17 Stop Date: 02/12/17 Status: Canceledinsulin detemir 15 unit, Route: SUB-Q, Q12H, Dosing Weight 82.813, kg, Start date: 02/12/17 9:00 :00 CDT, Duration: 30 day, Stop date: 03/13/17 21:00:00 CDT Start Date: 02/12/17 Stop Date: 02/12/17 Status: DiscontinuedInsulin regular 100 unit + sodium chloride 0.9% INJ 99 mL 99 mL, Rate: Start Insulin Drip Per ICU Protocol, Dosing Weight 81.818, kg, Route: IVPB, Total Volume: 100, Start Date: 02/08/17 17:27:00 CDT, Duration: 30 day, Stop date: 03/10/17 17:26:00 CDT, Replace Every: 24 hr Notes: (Same as: Humulin R and NovoLIN R)WASTE: F/P - Black; E - Municipal Trash Bin (Do not shake) Start Date: 02/08/17 Stop Date: 02/10/17 Status: DiscontinuedIsolyte S PH-7.4 (Bolus) IV 1,000 mL, Route: IV, Dosing Weight 81.818, kg, ONCE, Start date: 02/08/17 16:38: 00 CDT, Stop date: 02/08/17 16:38:00 CDT Start Date: 02/08/17 Stop Date: 02/08/17 Status: CompletedLantus 100 units/mL 15 unit, 0.15 mL, Route: SUB-Q, Drug form: SOLN, Q12H, Dosing Weight 82.813, kg , Start date: 02/10/17 21:00:00 CDT, Duration: 30 day, Stop date: 03/12/17 9:00: 00 CDT Notes: Same as: Lantus)Do not hold insulin without contacting prescriberWASTE: F /P - Black; E - Municipal Trash Bin Start Date: 02/10/17 Stop Date: 02/12/17 Status: DiscontinuedLovaza oral capsule 2 gm, 2 cap, Route: PO, Drug Form: CAP, Dosing Weight 82.813, kg, BID, Start date: 02/09/17 9:00:00 CDT, Duration: 30 day, Stop date: 03/10/17 17:00:00 CDT Notes: (Same as: MaxEPA, [place]ongaloo 3 fish oil )Non-Formulary Drug Start Date: 02/09/17 Stop Date: 02/12/17 Status: Discontinuedmagnesium oxide 800 mg, 2 tab, Route: PO, Drug form: TAB, PRN, Dosing Weight 82.813, kg, PRN Abnormal Lab Result, FOR ICU USE ONLY, Start date: 02/09/17 1:58:00 CDT, Duration: 30 day, Stop date: 03/11/17 1:57:00 CDT Notes: (Same as: Mag-Ox 400)Magnesium oxide 058om=915ms elemental magnesiumDose= ____mg magnesium oxide (___mg elemental magnesium) Start Date: 02/09/17 Stop Date: 02/10/17 Status: Discontinuedmagnesium sulfate 2 gm, 50 mL, Route: IVPB, Drug form: INJ, PRN, Dosing Weight 82.813, kg, PRN Abnormal Lab Result, Start date: 02/09/17 1:58:00 CDT, Duration: 30 day, Stop date: 03/11/17 1:57:00 CDT, FOR ICU USE ONLY Notes: WASTE: F/P - Sink; E - Municipal Trash Bin Start Date: 02/09/17 Stop Date: 02/10/17 Status: DiscontinuedNovoLOG FlexPen 100 units/mL subcutaneous solution See Instructions, Check fingerstick with meals (three times a day) If Glu 150- 199 -> 2units 200-249 -> 4 units 250-299 -> 6 units 300-349 -> 8 units >= 350 -> 10 units, # 3 mL, 0 Refill(s), other Start Date: 02/12/17 Status: Orderednystatin topical 100,000 units/g powder 1 appl, Route: TOP, PRN, Drug form: PWDR, PRN For Fungal Prophylaxis, Start date : 02/09/17 1:58:00 CDT, Duration: 30 day, Stop date: 03/11/17 1:57:00 CDT Notes: (Same as:Mycostatin, Nilstat) For external use only. Start Date: 02/09/17 Stop Date: 02/10/17 Status: Discontinuedomega-3 polyunsaturated fatty acids 1000 mg oral capsule 1,000 mg=1 cap, PO, BID, # 60 cap, 0 Refill(s), Pharmacy: [facility] [id number] Start Date: 02/12/17 Stop Date: 03/14/17 Status: Orderedondansetron 4 mg, Route: IVP, Drug form: INJ, ONCE, Dosing Weight 81.818, kg, Priority: STAT , Start date: 02/08/17 16:55:00 CDT, Stop date: 02/08/17 16:55:00 CDT Start Date: 02/08/17 Stop Date: 02/08/17 Status: CompletedoxyCODONE 5 mg oral tablet 5 mg, 1 tab, Route: PO, Drug form: TAB, Q4H, Dosing Weight 82.813, kg, PRN Pain Score 7-10, Start date: 02/12/17 13:47:00 CDT, Duration: 30 day, Stop date: 09/25 13:46:00 CDT Notes: (Same as: Roxicodone) Start Date: 02/12/17 Stop Date: 02/12/17 Status: DiscontinuedoxyCODONE 5 mg oral tablet 10 mg, 2 tab, Route: PO, Drug form: TAB, Q4H, Dosing Weight 82.813, kg, Start date: 02/09/17 7:46:00CDT, Stop date: 03/11/17 8:00:00 CDT Notes: (Same as: Roxicodone) Start Date: 02/09/17 Stop Date: 02/12/17 Status: Discontinuedpotassium chloride 20 mEq, 15 mL, Route: NJ, Drug form: LIQ, PRN, Dosing Weight 82.813, kg, PRN Abnormal Lab Result, Start date: 02/09/17 1:58:00 CDT, Duration: 30 day, Stop date: 03/11/17 1:57:00 CDT, FOR ICU USE ONLY Notes: (Same as: Potassium Chloride) Start Date: 02/09/17 Stop Date: 02/10/17 Status: Discontinuedpotassium chloride 20 mEq, 100 mL, Route: IVPB, Drug form: INJ, PRN, Dosing Weight 82.813, kg, PRN Abnormal Lab Result,Via central line, Start date: 02/09/17 1:58:00 CDT, Duration : 30 day, Stop date: 03/11/17 1:57:00 CDT, FOR ICU USE ONLY Notes: (Same as: KCL) Infuse no faster than 10 mEq/hr if given peripherally. Start Date: 02/09/17 Stop Date: 02/10/17 Status: Discontinuedpotassium chloride 10 mEq, 50 mL, Route: IVPB, Drug form: INJ, PRN, Dosing Weight 82.813, kg, PRN Abnormal Lab Result, Via peripheral line, Start date: 02/09/17 1:58:00 CDT, Duration: 30 day, Stop date: 03/11/17 1:57:00 CDT, FOR ICU USE ONLY Notes: (Same as: KCL) Infuse over 2 hours. Start Date: 02/09/17 Stop Date: 02/10/17 Status: Discontinuedpotassium chloride 20 mEq, 1 tab, Route: PO, Drug form: ERTAB, PRN, Dosing Weight 82.813, kg, PRN Abnormal Lab Result, Start date: 02/09/17 1:58:00 CDT, Duration: 30 day, Stop date: 03/11/17 1:57:00 CDT, FOR ICU USE ONLY Notes: (Same as: K-Dur 20)"Do Not Crush" With food and full glass of water Start Date: 02/09/17 Stop Date: 02/10/17 Status: Discontinuedpotassium chloride 20 mEq oral tablet, extended release 40 mEq, 2 tab, Route: PO, Drug form: ERTAB, ONCE, Dosing Weight 82.813, kg, Start date: 02/10/17 0:20:00 CDT, Stop date: 02/10/17 0:20:00 CDT Notes: (Same as: K-Dur 20)"Do Not Crush" With food and full glass of water Start Date: 02/10/17 Stop Date: 02/10/17 Status: Completedpotassium phosphate + sodium chloride 0.9% INJ 250 mL 15 mmol, 5 mL, Route: IVPB, PRN, Dosing Weight 82.813, kg, PRN Abnormal Lab Result, Start date: 02/09/17 1:58:00 CDT, Duration: 30 day, Stop date: 03/11/17 1:57:00 CDT, FOR ICU USE ONLY Notes: (Same as: K Phosphate.) 1 mMol phoshate has 1.47 mEq potassium Infuse over 4 hours Start Date: 02/09/17 Stop Date: 02/10/17 Status: Discontinuedpotassium phosphate + sodium chloride 0.9% INJ 250 mL 45 mmol, 15 mL, Route: IVPB, PRN, Dosing Weight 82.813, kg, PRN Abnormal Lab Result, Start date: 02/09/17 1:58:00 CDT, Duration: 30 day, Stop date: 03/11/17 1:57:00 CDT, FOR ICU USE ONLY Notes: (Same as: K Phosphate.) 1 mMol phoshate has 1.47 mEq potassium Infuse over 4 hours Start Date: 02/09/17 Stop Date: 02/10/17 Status: Discontinuedpotassium phosphate + sodium chloride 0.9% INJ 250 mL 30 mmol, 10 mL, Route: IVPB, PRN, Dosing Weight 82.813, kg, PRN Abnormal Lab Result, Start date: 02/09/17 1:58:00 CDT, Duration: 30 day, Stop date: 03/11/17 1:57:00 CDT, FOR ICU USE ONLY Notes: (Same as: K Phosphate.) 1 mMol phoshate has 1.47 mEq potassium Infuse over 4 hours Start Date: 02/09/17 Stop Date: 02/10/17 Status: Discontinuedpotassium phosphate-sodium phosphate 250 mg-280 mg-160 mg oral powder for reconstitution 2 pkt, Route: PO, Drug Form: PDR/REC, Dosing Weight 82.813, kg, PRN, PRN Abnormal Lab Result, FOR ICU USE ONLY, Start date: 02/09/17 1:58:00 CDT, Duration: 30 day, Stop date: 03/11/17 1:57:00 CDT Notes: (Same as: Phos-NaK) Each 1.5 gm pkt has 250mg phosphorous. Mix w/2.5oz water and stir. Start Date: 02/09/17 Stop Date: 02/10/17 Status: Discontinuedpromethazine 12.5 mg, 0.5 mL, Route: IVPB, Drug form: INJ, Q4H, Dosing Weight 82.813, kg, PRN Nausea & Vomiting, Start date: 02/09/17 9:01:00 CDT, Duration: 30 day, Stop date: 03/11/17 9:00:00 CDT Notes: Do not give IV push. (Same as: Phenergan) Start Date: 02/09/17 Stop Date: 02/12/17 Status: DiscontinuedSaline Flush 0.9% 10 ml, Route: IVP, Drug Form: INJ, Dosing Weight 82.813, kg, PRN, PRN Line Flush , Start date: 02/09/17 1:58:00 CDT, Duration: 30 day, Stop date: 03/11/17 1:57: 00 CDT Notes: Same as: BD Posiflush Sterile Start Date: 02/09/17 Stop Date: 02/10/17 Status: DiscontinuedSaline Flush 0.9% 10 ml, Route: IVP, Drug Form: INJ, Dosing Weight 82.813, kg, Q12H, Start date: 02/09/17 9:00:00 CDT,Duration: 30 day, Stop date: 03/10/17 21:00:00 CDT Notes: Same as: BD Posiflush Sterile Start Date: 02/09/17 Stop Date: 02/10/17 Status: Discontinuedsodium phosphate + sodium chloride 0.9% INJ 250 mL 15 mmol, 5 mL, Route: IVPB, PRN, Dosing Weight 82.813, kg, PRN Abnormal Lab Result, Start date: 02/09/17 1:58:00 CDT, Duration: 30 day, Stop date: 03/11/17 1:57:00 CDT, FOR ICU USE ONLY Start Date: 02/09/17 Stop Date: 02/10/17 Status: Discontinuedsodium phosphate + sodium chloride 0.9% INJ 250 mL 30 mmol, 10 mL, Route: IVPB, PRN, Dosing Weight 82.813, kg, PRN Abnormal Lab Result, Start date: 02/09/17 1:58:00 CDT, Duration: 30 day, Stop date: 03/11/17 1:57:00 CDT, FOR ICU USE ONLY Start Date: 02/09/17 Stop Date: 02/10/17 Status: Discontinuedsodium phosphate + sodium chloride 0.9% INJ 250 mL 45 mmol, 15 mL, Route: IVPB, PRN, Dosing Weight 82.813, kg, PRN Abnormal Lab Result, Start date: 02/09/17 1:58:00 CDT, Duration: 30 day, Stop date: 03/11/17 1:57:00 CDT, FOR ICU USE ONLY Start Date: 02/09/17 Stop Date: 02/10/17 Status: DiscontinuedTylenol with Codeine #3 oral tablet 1 tab, PO, Q4H, PRN Pain, X 5 day, # 20 tab, 0 Refill(s) Start Date: 02/12/17 Stop Date: 02/17/17 Status: OrderedTylenol with Codeine #3 oral tablet 2 tab, Route: PO, Drug Form: TAB, Dosing Weight 82.813, kg, Q6H, PRN Pain Score 4-6, Start date: 02/12/17 11:32:00 CDT, Stop date: 03/14/17 11:31:00 CDT Notes: Do not exceed 4gm/day of acetaminophen. (Same as: Tylenol with Codeine # 3) Start Date: 02/12/17 Stop Date: 02/12/17 Status: DiscontinuedZofran 4 mg, 2 mL, Route: IVP, Drug form: INJ, Q6H, Dosing Weight 82.813, kg, PRN Nausea, Start date: 02/10/17 8:53:00 CDT, Duration: 30 day, Stop date: 03/12/17 8:52:00 CDT Notes: (Same as: Brenda) MEDICATION WASTE Product Size: 4 mgProduct Wasted: ___ mg Start Date: 02/10/17 Stop Date: 02/12/17 Status: DiscontinuedZofran 4 mg, 2 mL, Route: IVP, Drug form: INJ, Q8H, Dosing Weight 82.813, kg, PRN Nausea, Start date: 02/09/17 2:08:00 CDT, Duration: 30 day, Stop date: 03/11/17 2:07:00 CDT Notes: (Same as: Brenda) MEDICATION WASTE Product Size: 4 mgProduct Wasted: 0 mg Start Date: 02/09/17 Stop Date: 02/10/17 Status: DiscontinuedZofran 4 mg, Route: IVP, Drug form: INJ, ONCE, Dosing Weight 81.818, kg, Start date: 23:10:00 CDT,Stop date: 02/08/17 23:10:00 CDT Start Date: 02/08/17 Stop Date: 02/08/17 Status: CompletedZofran 4 mg oral tablet 4 mg=1 tab, PO, Q8H, PRN Nausea/Vomiting, # 10 tab, 0 Refill(s), Pharmacy: [facility] [id number] Start Date: 02/12/17 Stop Date: 02/17/17 Status: Ordered Results ELECTROLYTES Most recent to oldest 1 2 3 [Reference Range]: Sodium Lvl [135-145 mEq/L] 138 mEq/L 134 mEq/L 136 mEq/L (02/12/17 4:25 AM) *LOW* (02/10/17 3:37 AM) (02/11/17 12:57 AM) Potassium Lvl [3.5-5.1 mEq/L] 3.6 mEq/L 3.8 mEq/L 4.1 mEq/L (02/12/17 4:25 AM) (02/11/17 12:57 AM) (02/10/17 8:51 AM) Chloride Lvl [95-109 mEq/L] 101 mEq/L 101 mEq/L 102 mEq/L (02/12/17 4:25 AM) (02/11/17 12:57 AM) (02/10/17 3:37 AM) CO2 [24-32 mEq/L] 27 mEq/L 29 mEq/L 27 mEq/L (02/12/17 4:25 AM) (02/11/17 12:57 AM) (02/10/17 3:37 AM) AGAP [10.0-20.0 mEq/L] 13.6 mEq/L 7.8 mEq/L 12.1 mEq/L (02/12/17 4:25 AM) *LOW* (02/10/17 3:37 AM) (02/11/17 12:57 AM) CHEM PANEL Most recent to oldest 1 2 3 [Reference Range]: Creatinine Lvl [0.50-1.40 0.76 mg/dL 0.82 mg/dL 0.77 mg/dL mg/dL] (02/12/17 4:25 AM) (02/11/17 12:57 AM) (02/10/17 3:37 AM) eGFR 117 mL/min/1.73m2 1 113 mL/min/1.73m2 2 116 mL/min/1.73m2 3 *NA* *NA* *NA* (02/12/17 4:25 AM) (02/11/17 12:57 AM) (02/10/17 3:37 AM) BUN [7-22 mg/dL] 11 mg/dL 9 mg/dL 9 mg/dL (02/12/17 4:25 AM) (02/11/17 12:57 AM) (02/10/17 3:37 AM) B/C Ratio [6-25] 30 *HI* (02/09/17 2:21 AM) Glucose Lvl [70-99 mg/dL] 128 mg/dL 155 mg/dL 137 mg/dL *HI* *HI* *HI* (02/12/17 4:25 AM) (02/11/17 12:57 AM) (02/10/17 3:37 AM) Total Protein [6.4-8.4 7.1 g/dL 7.3 g/dL g/dL] (02/09/17 2:21 AM) (02/08/17 4:41 PM) Albumin Lvl [3.5-5.0 g/dL] 3.8 g/dL 4.0 g/dL (02/09/17 2:21 AM) (02/08/17 4:41 PM) Globulin [2.7-4.2 g/dL] 3.3 g/dL 3.3 g/dL (02/09/17 2:21 AM) (02/08/17 4:41 PM) A/G Ratio [0.7-1.6] 1.2 1.2 (02/09/17 2:21 AM) (02/08/17 4:41 PM) Calcium Lvl [8.5-10.5 8.9 mg/dL 8.9 mg/dL 9.0 mg/dL mg/dL] (02/12/17 4:25 AM) (02/12/17 4:25 AM) (02/11/17 12:57 AM) Phosphorus [2.5-4.5 mg/dL] 3.8 mg/dL 2.9 mg/dL 3.7 mg/dL (02/12/17 4:25 AM) (02/11/17 12:57 AM) (02/10/17 3:37 AM) Magnesium Lvl [1.8-2.4 2.1 mg/dL 2.1 mg/dL 2.1 mg/dL mg/dL] (02/12/17 4:25 AM) (02/11/17 12:57 AM) (02/10/17 3:37 AM) ALT [0-65 unit/L] 23 unit/L 20 unit/L (02/09/17 2:21 AM) *NA* (02/08/17 4:41 PM) AST [0-37 unit/L] 8 unit/L 5 unit/L (02/09/17 2:21 AM) *NA* (02/08/17 4:41 PM) Alk Phos [39-136 unit/L] 63 unit/L 60 unit/L (02/09/17 2:21 AM) (02/08/17 4:41 PM) Bili Total [0.2-1.3 mg/dL] 1.1 mg/dL 1.3 mg/dL (02/09/17 2:21 AM) (02/08/17 4:41 PM) Bili Direct [0.0-0.3 mg/dL] 0.1 mg/dL (02/08/17 4:41 PM) Bili Indirect [0.0-1.0 1.2 mg/dL mg/dL] *HI* (02/08/17 4:41 PM) Lipase Lvl [73-393 unit/L] 232 unit/L (02/08/17 4:41 PM) Lactic Acid WB [0.5-2.2 0.8 mmol/L mmol/L] (02/08/17 4:41 PM) 1Result Comment: The eGFR is calculated [...] eGFR should be multiplied by the estimated BMI.CARDIAC ENZYMES Most recent to oldest [Reference Range]: 1 2 3 Troponin-I [0.00-0.40 ng/mL] <0.02 ng/mL (02/08/17 4:41 PM) LIPIDS Most recent to oldest 1 2 3 [Reference Range]: CHD Risk [4.00-7.30] 7.18 8.53 7.33 (02/12/17 4:25 AM) *HI* *HI* (02/10/17 8:51 AM) (02/09/17 11:04 PM) Chol [<=199 mg/dL] 158 mg/dL 162 mg/dL 154 mg/dL (02/12/17 4:25 AM) (02/10/17 8:51 AM) (02/09/17 11:04 PM) Trig [<=149 mg/dL] 526 mg/dL 598 mg/dL 499 mg/dL *HI* *HI* *HI* (02/12/17 4:25 AM) (02/10/17 8:51 AM) (02/09/17 11:04 PM) HDL [>=61 mg/dL] 22 mg/dL 19 mg/dL 21 mg/dL *LOW* *LOW* *LOW* (02/12/17 4:25 AM) (02/10/17 8:51 AM) (02/09/17 11:04 PM) LDL (Calculated) [<=99 mg/dL] See Note mg/dL 1 See Note mg/dL 2 See Note mg/ dL 3 *NA* *NA* *NA* (02/12/17 4:25 AM) (02/10/17 8:51 AM) (02/09/17 11:04 PM) VLDL See Note 4 See Note 5 See Note 6 *NA* *NA* *NA* (02/12/17 4:25 AM) (02/10/17 8:51 AM) (02/09/17 11:04 PM) 1Result Comment: LDL cholesterol cannot be calculated due to very high triglycerides (>400 mg/dL). Recommend Direct LDL if clinically indicated.2Result Comment: LDL cholesterol cannot be calculated due to very high triglycerides (>400 mg/dL). Recommend Direct LDL if clinically indicated.3Result Comment: LDL cholesterol cannot be calculated due to very high triglycerides (>400 mg/dL). Recommend Direct LDL if clinically indicated.4Result Comment: VLDL - Cholesterol level cannot be accurately calculated due to very high triglycerides (>400 mg/dL).5Result Comment: VLDL - Cholesterol level cannot be accurately calculated due to very high triglycerides (>400 mg/dL).6Result Comment: VLDL - Cholesterol level cannot be accurately calculated due to very high triglycerides (>400 mg/dL).SPECIAL CHEMISTRY Most recent to oldest [Reference Range]: 1 2 3 Hgb A1C [<=5.6 %] 9.3 % *HI* (02/10/17 3:37 AM) PARATHYROID PROFILE Most recent to oldest 1 2 3 [Reference Range]: Ca Ion WB [1.05-1.25 mMol/L] 1.13 mMol/L 1.12 mMol/L 1.10 mMol/L (02/11/17 12:57 AM) (02/10/17 3:37 AM) (02/09/17 6:05 PM) Ca Norm WB [1.05-1.25 mMol/L] 1.08 mMol/L 1.09 mMol/L 1.11 mMol/L (02/11/17 12:57 AM) (02/10/17 3:37 AM) (02/09/17 6:05 PM) URINE AND STOOL Most recent to oldest [Reference Range]: 1 2 3 UA Turbidity [Clear] Clear (02/08/17 5:41 PM) UA Color [Yellow] Yellow *NA* (02/08/17 5:41 PM) UA pH [5.0-8.0] 5.5 (02/08/17 5:41 PM) UA Spec Grav [<=1.030] 1.036 *NA* (02/08/17 5:41 PM) UA Glucose [Negative mg/dL] >=1000 mg/dL *ABN* (02/08/17 5:41 PM) UA Blood [Negative] Negative (02/08/17 5:41 PM) UA Ketones [Negative] Trace *ABN* (02/08/17 5:41 PM) UA Protein [Negative] Negative (02/08/17 5:41 PM) UA Urobilinogen [0.1-1.0 EU/dL] 0.2 EU/dL (02/08/17 5:41 PM) UA Bili [Negative] Negative *NA* (02/08/17 5:41 PM) UA Leuk Est [Negative] Negative (02/08/17 5:41 PM) UA Nitrite [Negative] Negative (02/08/17 5:41 PM) UA WBC [None Seen] None Seen (02/08/17 5:41 PM) UA RBC [0-2] None Seen (02/08/17 5:41 PM) UA Bacteria [None Seen /HPF] Occasional /HPF (02/08/17 5:41 PM) UA Sq Epi [Few /LPF] Rare /LPF (02/08/17 5:41 PM) UA Mucus [None Seen] None Seen (02/08/17 5:41 PM) HEMATOLOGY Most recent to oldest 1 2 3 [Reference Range]: WBC [3.7-10.4 K/CMM] 3.6 K/CMM 5.8 K/CMM 4.3 K/CMM *LOW* (02/11/17 12:57 AM) (02/10/17 3:37 AM) (02/12/17 4:25 AM) RBC [4.70-6.10 M/CMM] 4.98 M/CMM 5.10 M/CMM 4.65 M/CMM (02/12/17 4:25 AM) (02/11/17 12:57 AM) *LOW* (02/10/17 3:37 AM) Hgb [14.0-18.0 g/dL] 14.4 g/dL 14.6 g/dL 13.2 g/dL (02/12/17 4:25 AM) (02/11/17 12:57 AM) *LOW* (02/10/17 3:37 AM) Hct [42.0-54.0 %] 41.1 % 42.2 % 38.7 % *LOW* (02/11/17 12:57 AM) *LOW* (02/12/17 4:25 AM) (02/10/17 3:37 AM) MCV [80.0-94.0 fL] 82.5 fL 82.8 fL 83.1 fL (02/12/17 4:25 AM) (02/11/17 12:57 AM) (02/10/17 3:37 AM) MCH [27.0-31.0 pg] 28.9 pg 28.6 pg 28.3 pg (02/12/17 4:25 AM) (02/11/17 12:57 AM) (02/10/17 3:37 AM) MCHC [32.0-36.0 g/dL] 35.0 g/dL 34.6 g/dL 34.0 g/dL (02/12/17 4:25 AM) (02/11/17 12:57 AM) (02/10/17 3:37 AM) RDW [11.5-14.5 %] 13.8 % 13.7 % 13.8 % (02/12/17 4:25 AM) (02/11/17 12:57 AM) (02/10/17 3:37 AM) Platelet [133-450 K/CMM] 169 K/CMM 186 K/CMM 152 K/CMM (02/12/17 4:25 AM) (02/11/17 12:57 AM) (02/10/17 3:37 AM) MPV [7.4-10.4 fL] 7.4 fL 7.1 fL 7.2 fL (02/12/17 4:25 AM) *LOW* *LOW* (02/11/17 12:57 AM) (02/10/17 3:37 AM) Segs [45.0-75.0 %] 42.1 % 65.0 % 60.2 % *LOW* (02/11/17 12:57 AM) (02/10/17 3:37 AM) (02/12/17 4:25 AM) Lymphocytes [20.0-40.0 %] 48.6 % 28.2 % 32.1 % *HI* (02/11/17 12:57 AM) (02/10/17 3:37 AM) (02/12/17 4:25 AM) Monocytes [2.0-12.0 %] 5.8 % 4.2 % 4.7 % (02/12/17 4:25 AM) (02/11/17 12:57 AM) (02/10/17 3:37 AM) Eosinophils [0.0-4.0 %] 2.3 % 1.7 % 2.1 % (02/12/17 4:25 AM) (02/11/17 12:57 AM) (02/10/17 3:37 AM) Basophils [0.0-1.0 %] 1.2 % 0.9 % 0.9 % *HI* (02/11/17 12:57 AM) (02/10/17 3:37 AM) (02/12/17 4:25 AM) Segs-Bands # [1.5-8.1 K/CMM] 1.5 K/CMM 3.8 K/CMM 2.6 K/CMM (02/12/17 4:25 AM) (02/11/17 12:57 AM) (02/10/17 3:37 AM) Lymphocytes # [1.0-5.5 K/CMM] 1.8 K/CMM 1.6 K/CMM 1.4 K/CMM (02/12/17 4:25 AM) (02/11/17 12:57 AM) (02/10/17 3:37 AM) Monocytes # [0.0-0.8 K/CMM] 0.2 K/CMM 0.2 K/CMM 0.2 K/CMM (02/12/17 4:25 AM) (02/11/17 12:57 AM) (02/10/17 3:37 AM) Eosinophils # [0.0-0.5 K/CMM] 0.1 K/CMM 0.1 K/CMM 0.1 K/CMM (02/12/17 4:25 AM) (02/11/17 12:57 AM) (02/10/17 3:37 AM) Basophils # [0.0-0.2 K/CMM] 0.1 K/CMM 0.1 K/CMM (02/11/17 12:57 AM) (02/08/17 4:41 PM) RBC Morph Normal (02/12/17 4:25 AM) Plt Morph Normal (02/12/17 4:25 AM) PT [12.0-14.7 seconds] 13.5 seconds 13.5 seconds (02/12/17 4:25 AM) (02/12/17 4:25 AM) INR [0.85-1.17] 1.01 1.01 (02/12/17 4:25 AM) (02/12/17 4:25 AM) PTT [22.9-35.8 seconds] 36.0 seconds *HI* (02/12/17 4:25 AM) Immunizations Given and Recorded Vaccine Date [...] No Assessment and Plan Extracted from: Title: Team D History and Physical Author: Barb Blair Date : 02/11/17 Assessment/Plan Mr. Auguste is a 36 yo M with a PMH of acute on chronic recurrent pancreatitis over the last 8 years and difficult to manage IDDM. Last year he has had 3 episodes of acute on chronic pancreatitis with sim ilar presentation.He has N/V, bilious emesis, abdominal pain and steatorrhea. 1.Acute on chronic pancreatitis - Multiple episodes - Poor adherence to lipid lowering drugs - Difficult management of blood sugar - Advance diet: now on full liquid - Assess diet tolerance - GI notified of patient transfer and possible discharge, will schedule outpatient EGD 2.Acute pain - Epigastric band like - On dilaudid and oxycodone - Scheduled oxycoden 10mg Q4 - Improve pain management 3.Bilious emesis - Had one episode today - On odansetron and phenerganfor nausea 4.Steatorrhea - Has 2-3 bowel movements a day - Non bloody - On pancrealipase 5.Hypertriglyceridemia - TG 598 - On lovaza and gemfibrozil - Tending down, continue to monitor 6.DM (diabetes mellitus), type 2 - On sliding scale 7.Hyponatremia - Poor oral intake Prophylaxis Lovenox Disposition Home Addendum by Billie Lees MD on 02/11/2017 20:46 CDT I have seen and examined the patient, and discussed the findings on the patient in detail with the team at bedside. I have reviewed the clinical data and note above and I agree with the findings and sergio n of care as outlined by Dr. Hamilton. Please refer to the attending note for details. Extracted from: Title: GI Consult Note Author: Tamia Bruce MD Date: 02/09/17 Gastroenterology Consult Note: Patient Room: MICU - 02, HH JARAD HYLTON 36y (: 1980) M Attending: Misty Elizalde MD Service: Pulmonology/ Respiratory Therapy DATE OF CONSULT: 02/09/2017 CONSULTING PHYSICIAN: Dr. Chau FLORES REASON FOR CONSULTATION: Acute pancreatitis CHIEF COMPLAINT: Abdominal pain HISTORY OF PRESENT ILLNESS: Mr Auguste is a 36 yo man with PMHx of HTN, NIDDM, hypertriglyceridemia, recurrent episodes of acute pancreatitis is admitted for acute pancreatitis 2/2 hypertrygliceridemia. He reports worsening epigastr ic pain with radiation to the back for two days. symptoms a/w NBNB emesis and nausea once. He also complains of liquidy, non bloody watery diarrhea. Patient reports three episodes of pancreatitis in las t two months with latest hospitalization in 01/2017. He was seen in GI clinic and was prescribed Creaon, Lovaza and gemfibrazole. He has not been able to obtain Lovaza or Creon due to insurance issues [facility] reports compliance with gemfibrazole. EGD and EUS was planned as out patient on the day of admission however his TG were 1400 and he was complaining of severe pain so was admitted for Insulin gtt and pain control. GI was consulted for further recs. PAST SURGICAL HISTORY: Cholesystectomy SOCIAL HISTORY: Current alcohol use. denies IVDU FAMILY HISTORY: CAD father. Allergies (1) Active Reaction NKDA None documented Medications (40) Active Scheduled Meds (5): 02/09/17 enoxaparin 40 mg SUB-Q [id number] 02/09/17 gemfibrozil 600 mg PO BID 02/09/17 omega-3 polyunsaturated fatty acids (Lovaza oral capsule) 2 gm PO BID 02/09/17 pancrelipase (Creon 24,000 units oral delayed release capsule) 1 cap PO TID 02/09/17 sodium chloride (Saline Flush 0.9%) 10 ml IVP Q12H Unscheduled Meds: None PRN Meds (24): 02/08/17 Dextrose 50% in Water IV (Dextrose 50% Syringe) 25 gm IVP PRN 02/08/17 Dextrose 50% in Water IV (Dextrose 50% Syringe) 12.5 gm IVP PRN 02/09/17 calcium carbonate (calcium carbonate 500 mg (200 mg elemental calcium ) oral tablet) 500 mg PO PRN 02/09/17 calcium carbonate (calcium carbonate 500 mg (200 mg elemental calcium ) oral tablet) 1,000 mg PO PRN 02/09/17 calcium gluconate + sodium chloride 0.9% INJ 50 mL 1 gm IVPB PRN 120 ml/hr 02/09/17 hydromorphone (Dilaudid) 1 mg IV Q3H 02/09/17 magnesium oxide 800 mg PO PRN 02/09/17 magnesium sulfate 2 gm IVPB PRN 25 ml/hr 02/09/17 nystatin topical (nystatin topical 100,000 units/g powder) 1 appl TOP PRN 02/09/17 ondansetron (Zofran) 4 mg IVP Q8H 02/09/17 oxyCODONE (oxyCODONE 5 mg oral tablet) 5 mg PO Q4H 02/09/17 potassium chloride 20 mEq IVPB PRN 50 ml/hr 02/09/17 potassium chloride 10 mEq IVPB PRN 50 ml/hr 02/09/17 potassium chloride 20 mEq PO PRN 02/09/17 potassium chloride 20 mEq NJ PRN 02/09/17 potassium phosphate + sodium chloride 0.9% INJ 250 mL 15 mmol IVPB PRN 63.75 ml/hr 02/09/17 potassium phosphate + sodium chloride 0.9% INJ 250 mL 30 mmol IVPB PRN 65 ml/hr 02/09/17 potassium phosphate + sodium chloride 0.9% INJ 250 mL 45 mmol IVPB PRN 44.17 ml/hr 02/09/17 potassium phosphate-sodium phosphate (potassium phosphate-sodium phosphate 250 mg-280 mg-160 mg oral powder for reconstitution) 2 pkt PO PRN 02/09/17 promethazine 12.5 mg IVPB Q4H 02/09/17 sodium chloride (Saline Flush 0.9%) 10 ml IVP PRN 02/09/17 sodium phosphate + sodium chloride 0.9% INJ 250 mL 15 mmol IVPB PRN 63.75 ml/hr 02/09/17 sodium phosphate + sodium chloride 0.9% INJ 250 mL 30 mmol IVPB PRN 65 ml/hr 02/09/17 sodium phosphate + sodium chloride 0.9% INJ 250 mL 45 mmol IVPB PRN 66.25 ml/hr One Time Meds (9): 02/08/17 (Completed) Electrolyte Solution (Isolyte S PH-7.4 (Bolus) IV) 1,000 mL IV ONCE 02/08/17 (Completed) hydromorphone (Dilaudid) 1 mg IV ONCE 02/08/17 (Completed) hydromorphone (Dilaudid) 1 mg IVP ONCE 02/08/17 (Completed) hydromorphone (Dilaudid) 1 mg IVP ONCE 02/08/17 (Completed) hydromorphone (Dilaudid) 1 mg IV ONCE 02/08/17 (Completed) hydromorphone (Dilaudid) 1 mg IVP ONCE 02/09/17 (Completed) hydromorphone (Dilaudid) 0.5 mg IVP ONCE 02/08/17 (Completed) ondansetron 4 mg IVP ONCE 02/08/17 (Completed) ondansetron (Zofran) 4 mg IVP ONCE Continuous Infusions (2): 02/08/17 Insulin regular 100 unit + sodium chloride 0.9% INJ 99 mL 99 mL Start Insulin Drip Per ICU Protocol 02/08/17 dextrose 10% in water 1,000 mL 1,000 mL 150 ml/hr Gen: denies weight loss eyes: denies pain, redness Cardiac: denies chest pain Resp: denies cough, sob, wheezing GI: Abdominal pain MSK: denies arthralgia, arthritis, myalgias End: denies polydypsia polyuria Neuro: denies weakness, parasthesias Psych: denies anxiety, depression PHYSICAL EXAMINATION: Vital Signs - Reviewed Vitals Tmp(F) Pulse BP RR SpO2 FIO2 02/09 11:07 96.4 --- ----- -- --- --- 02/09 09:00 ---- 81 127/81 20 100 --- 02/09 08:00 ---- 69 125/81 20 100 --- 02/09 07:00 96.8 66 112/64 20 100 --- 02/09 06:00 ---- 55 100/62 18 98 --- 24 Hr Tmax: 97.9F (36.61c) at 02/08 16:08 Vital Signs are the last 5 in the past 48 hours. Date Wt(kg) Wt(lb) Ht(cm) Ht(in) Method 02/09 82.81 182.19 177.80 70.00 Measured 02/08 (initial) 81.82 180.00 Estimated 02/08 177.80 70.00 Stated General: alert aware oriented. HEENT: EOMI, [place]. Cardiac: Regular rate and rhythm. normal s1s2 no murmurs Chest :CTAB no wheezes GI: nabs soft nontender, nondistended. no rebound, rigidity, or guarding Ext: no cyanosis, erythema, or edema Neuro: CN II-XII intact. upper and lower extremity strength 5/5. sensation intact skin: no rashes DATA: 24hr Labs 02/09 1350 Glucose POC 141 H 02/09 1227 Glucose Lvl 131 H BUN 17 Creatinine Lvl 0.70 Sodium Lvl 137 Potassium Lvl 3.6 Chloride Lvl 105 CO2 23 L AGAP 12.6 Calcium Lvl 8.4 L eGFR 120 Chol 156 Trig 669 H HDL 20 L LDL (Calculated) See Note VLDL See Note CHD Risk 7.80 H 02/09 0724 Glucose POC 111 H 02/09 0617 Glucose POC 78 02/09 0549 Glucose Lvl 87 BUN 19 Creatinine Lvl 0.65 Sodium Lvl 141 Potassium Lvl 3.9 Chloride Lvl 106 CO2 26 AGAP 12.9 Calcium Lvl 8.5 eGFR 124 Ca Ion WB 1.09 Ca Norm WB 1.10 02/09 0508 Glucose POC 124 H 02/09 0403 Glucose POC 135 H 02/09 0306 Glucose POC 80 02/09 0221 Sodium Lvl 140 Potassium Lvl 3.2 L Chloride Lvl 106 CO2 25 AGAP 12.2 Glucose Lvl 112 H Creatinine Lvl 0.64 BUN 19 B/C Ratio 30 H Total Protein 7.1 Albumin Lvl 3.8 Globulin 3.3 A/G Ratio 1.2 Calcium Lvl 8.4 L ALT 23 AST 8 Alk Phos 63 Bili Total 1.1 eGFR 125 Chol 169 Trig 832 H HDL 22 L LDL (Calculated) See Note VLDL See Note CHD Risk 7.68 H Magnesium Lvl 2.1 Phosphorus 3.1 TSH 2.480 WBC 7.2 RBC 4.41 L Hgb 12.5 L Hct 35.9 L MCV 81.5 MCH 28.4 MCHC 34.9 RDW 13.8 Platelet 132 L MPV 7.2 L Segs 70.1 Monocytes 4.2 Lymphocytes 23.8 Eosinophils 1.4 Basophils 0.5 Segs-Bands # 5.0 Lymphocytes # 1.7 Monocytes # 0.3 Eosinophils # 0.1 02/09 0203 Glucose POC 147 H 02/09 0103 Glucose POC 211 H 02/09 0018 Potassium Lvl 3.3 L Glucose Lvl 191 H 02/09 0012 Glucose POC 198 H 02/08 2256 Glucose POC 134 H 02/08 2156 Glucose POC 96 02/08 2103 Glucose POC 80 02/08 1956 Glucose POC 160 H 02/08 1855 Glucose POC 238 H 02/08 1741 UA Color Yellow UA Turbidity Clear UA Spec Grav 1.036 UA pH 5.5 UA Protein Negative UA Glucose >=1000 UA Ketones Trace UA Bili Negative UA Blood Negative UA Urobilinogen 0.2 UA Nitrite Negative UA Leuk Est Negative UA RBC None Seen UA WBC None Seen UA Bacteria Occasional UA Mucus None Seen UA Sq Epi Rare 02/08 1641 Lactic Acid WB 0.8 Temp Marcell 37.0 pH Marcell 7.40 pCO2 Marcell 38 pO2 Marcell 50 H HCO3 Marcell 24 BE Marcell -1 O2 Sat Marcell 85.0 H Glucose Lvl 304 H BUN 19 Creatinine Lvl 0.67 Sodium Lvl 134 L Potassium Lvl 4.0 Chloride Lvl 104 CO2 21 L AGAP 13.0 Calcium Lvl 8.4 L eGFR 123 Lipase Lvl 232 Troponin-I <0.02 Total Protein 7.3 Albumin Lvl 4.0 Bili Total 1.3 Bili Direct 0.1 Bili Indirect 1.2 H Alk Phos 60 AST 5 ALT 20 Globulin 3.3 A/G Ratio 1.2 Chol 196 Trig 1223 H HDL 17 L LDL (Calculated) See Note VLDL See Note CHD Risk 11.53 H WBC 6.4 RBC 4.51 L Hgb 12.9 L Hct 36.9 L MCV 81.7 MCH 28.7 MCHC 35.1 RDW 13.4 Platelet 144 MPV 7.4 Segs 69.8 Monocytes 3.7 Lymphocytes 23.6 Eosinophils 1.8 Basophils 1.1 H Segs-Bands # 4.5 Lymphocytes # 1.5 Monocytes # 0.2 Eosinophils # 0.1 Basophils # 0.1 CT abdomen pancreatic protocol. IMPRESSION: 1. Slight interval decrease in size of the hypodensity in the uncinate process , consistent with pancreatic necrosis from acute pancreatitis. 2. Improved pancreatic head edema and peripancreatic fat stranding, consistent with improving pancreatitis. 3. Unchanged cystic lesion in the tail the pancreas, however significantly increased in size from CT 05/16/2015. 4. Splenomegaly and perisplenic and perigastric varices, consistent with portal hypertension. ASSESSMENT AND PLAN: _ Patient is a 36 yo with recurrent acute pancreatitis 2/2 hyperTG is admitted in MICU for insulin gtt. Currently on gemfibrazole and pancreatic enzymes. TG are improving and patient's pain is well tolera j luis on current pain regimen. No new abdominal CT or other imaging done this admission. Recommendations: - Agree with Insulin gtt, gemfibrazole and creon. - Due to acute inflammatory process and pancreatic edema/fat stranding, an EUS will not have a high diagnostic yield. Hence will deffer EUS as out patient. - Please call us when patient is ready to be transfered out of MICU for a non- urgent EGD Thank you for this consult. Case was discussed with Dr. Ritchie during rounds. Tamia Bruce MD Internal Medicine PGY-3 I have seen and examined the patient with Dr Bruce. I have reviewed the fellow s / resident's history and physical exam. I have personally reviewed the lab results and radiology tests and discussed the findings. I agree with the outlined assessment and plan of care. Summary of my recommendation: Recurrent acute pancreatiitis in setting of hypertriglyceridemia. There is concern for medication compliance due to insurence issues. Endocrine team involvement in management of hypertriglyceridemia will be helpful. will schedule for EGD/EUS prior to discharge as planned by Dr Healy who he is following as outpatient Pebbles Ritchie MD [employer] Division of Gastroenterology, Hepatology and Nutrition [employer] [facility] [place] [facility] (For outpatient appointment: [phone])
--- OUTSIDE RECORDS SUMMARY | 2018-02-23 19:14 | XMS REPORT | Summary of Care ---
:1980 Author Organization [facility] Address [address] [place], [place] [address]- Encounter HQ [email or web address](FIN) [id number] Date(s): 02/22/17 - 02/22/[address] [address]- [place] Discharge Disposition: Home or Self Care Attending Physician: Tian Healy MD Referring Physician: Tian Healy MD Vital Signs No data available for this section Problem List Condition Effective Dates Status Health Status Informant Diabetes mellitus(Confirmed) Resolved Pancreatitis(Confirmed) 05/16/11 Active Pancreatitis(Confirmed) Resolved Allergies, Adverse Reactions, Alerts Substance Reaction Severity Status NKDA Active Medications No data available for this section Results BODY FLUIDS Most recent to oldest [Reference Range]: 1 Glucose BF Cyst 355 mg/dL *NA* (02/22/17 2:30 PM) Amylase BF Cyst 6510 unit/L *NA* (02/22/17 2:30 PM) CEA BF Cyst 2.2 ng/mL *NA* (02/22/17 2:30 PM) Immunizations Given and Recorded Vaccine Date Status [...]
[2018-02-23 20:13] LABS: Urine Blood NEGATIVE (NEG); Urine Glucose 3+ (NEG); Urine Protein NEGATIVE (NEG); Urine pH 8.5 (5.0-7.0)
--- NOTE | 2018-02-23 20:19 | EDPHYS ---
Physician Documentation [facility] Name: Alex Auguste Age: 37 yrs Sex: Male : 1980 Arrival Date: 02/23/2018 Time: 19:11 Bed 27 Private MD: Gino Lira ED Physician Manpreet Nina HPI: 02/23 20:16 This 37 yrs old Male presents to ER via Ambulatory with complaints of maegan Abdominal Pain. 20:16 The patient presents with abdominal pain in the epigastric area, in the upper abdomen. maegan Onset: The symptoms/episode began/occurred 2 day(s) ago. The symptoms do not radiate. Associated signs and symptoms: none. The symptoms are described as burning, constant, crampy. Modifying factors: The symptoms are alleviated by nothing, the symptoms are aggravated by food. Severity of pain: At its worst the pain was moderate in the emergency department the pain is unchanged. The patient has experienced similar episodes in the past, multiple times. Historical: - Allergies: 19:34 No Known Allergies; sr5 - Home Meds: 19:34 gemfibrozil 600 mg Oral tab 1 tab 2 times per day [Active]; Lantus 100 unit/mL Sub-Q sr5 soln 31 unit nightly [Active]; Novolog 100 unit/mL Sub-Q soln sliding scale tid with meals [Active]; citalopram 20 mg tab 1 tab once daily [Active]; 22:59 trazodone 100 mg Oral tab PRN sleep [Active]; sr5 - PMHx: 19:34 Diabetes - IDDM; High Triglycerides; Hyperlipidemia; Pancreatitis; sr5 - PSHx: 19:34 Cholecystectomy; sr5 - Immunization history:: Adult Immunizations unknown. - Social history:: Smoking status: Patient/guardian denies using tobacco, never smoked. - Ebola Screening: : Patient negative for fever greater than or equal to 101.5 degrees Fahrenheit, and additional compatible Ebola Virus Disease symptoms. - Family history:: not pertinent. ROS: 20:16 Constitutional: Negative for fever, chills, and weight loss, Eyes: Negative for injury, maegan pain, redness, and discharge, ENT: Negative for injury, pain, and discharge, Neck: Negative for injury, pain, and swelling, Cardiovascular: Negative for chest pain, palpitations, and edema, Respiratory: Negative for shortness of breath, cough, wheezing, and pleuritic chest pain, Back: Negative for injury and pain, : Negative for injury, bleeding, discharge, and swelling, MS/Extremity: Negative for injury and deformity, Skin: Negative for injury, rash, and discoloration, Neuro: Negative for headache, weakness, numbness, tingling, and seizure, Psych: Negative for depression, anxiety, suicide ideation, homicidal ideation, and hallucinations, Allergy/Immunology: Negative for hives, rash, and allergies, Endocrine: Negative for neck swelling, polydipsia, polyuria, polyphagia, and marked weight changes, Hematologic/Lymphatic: Negative for swollen nodes, abnormal bleeding, and unusual bruising. 20:16 Abdomen/GI: Positive for abdominal pain, of the epigastric area, right upper quadrant and left upper quadrant. Exam: 20:16 Constitutional: This is a well developed, well nourished patient who is awake, alert, maegan and in no acute distress. Head/Face: Normocephalic, atraumatic. Eyes: Pupils equal round and reactive to light, extra-ocular motions intact. Lids and lashes normal. Conjunctiva and sclera are non-icteric and not injected. Cornea within normal limits. Periorbital areas with no swelling, redness, or edema. ENT: Nares patent. No nasal discharge, no septal abnormalities noted. Tympanic membranes are normal and external auditory canals are clear. Oropharynx with no redness, swelling, or masses, exudates, or evidence of obstruction, uvula midline. Mucous membranes moist. Neck: Trachea midline, no thyromegaly or masses palpated, and no cervical lymphadenopathy. Supple, full range of motion without nuchal rigidity, or vertebral point tenderness. No Meningismus. Chest/axilla: Normal chest wall appearance and motion. Nontender with no deformity. No lesions are appreciated. Cardiovascular: Regular rate and rhythm with a normal S1 and S2. No gallops, murmurs, or rubs. Normal PMI, no JVD. No pulse deficits. Respiratory: Lungs have equal breath sounds bilaterally, clear to auscultation and percussion. No rales, rhonchi or wheezes noted. No increased work of breathing, no retractions or nasal flaring. Back: No spinal tenderness. No costovertebral tenderness. Full range of motion. Male : Normal genitalia with no discharge or lesions. Skin: Warm, dry with normal turgor. Normal color with no rashes, no lesions, and no evidence of cellulitis. MS/ Extremity: Pulses equal, no cyanosis. Neurovascular intact. Full, normal range of motion. Neuro: Awake and alert, GCS 15, oriented to person, place, time, and situation. Cranial nerves II-XII grossly intact. Motor strength 5/5 in all extremities. Sensory grossly intact. Cerebellar exam normal. Normal gait. Psych: Awake, alert, with orientation to person, place and time. Behavior, mood, and affect are within normal limits. 20:16 Abdomen/GI: Inspection: abdomen appears normal, Bowel sounds: normal, Palpation: moderate abdominal tenderness, in the epigastric area, right upper quadrant and left upper quadrant, Liver: no appreciated palpable abnormalities, Hernia: not appreciated. Vital Signs: 19:34 BP 154 / 111; Pulse 81; Resp 16; Temp 98.7; Pulse Ox 96% on R/A; Weight 81.19 kg (R); sr5 Height 5 ft. 10 in. (177.80 cm); Pain 10/10; 20:49 BP 155 / 108; Pulse 81; Resp 18; Pulse Ox 97% ; Pain 8/10; sr5 21:16 BP 149 / 105; Pulse 72; Resp 14; Pulse Ox 100% on R/A; sr5 21:45 BP 154 / 101; Pulse 89; Resp 18; Pulse Ox 97% on R/A; sr5 23:00 BP 151 / 104; sr5 23:48 BP 137 / 105; Pulse 83; Resp 16; Temp 98.1(O); Pulse Ox 97% on R/A; Pain 8/10; sr5 19:34 Body Mass Index 25.68 (81.19 kg, 177.80 cm) 5 23:00 post Hydralazine admin#1 sr5 MDM: 19:[address] [facility] 20:24 Data reviewed: vital signs, nurses notes, lab test result(s), EKG, radiologic studies, [facility] CT scan, plain films. 02/23 19:52 Order name: Urine Dipstick--Ancillary (enter results); Complete Time: 20:15 pa 02/23 20:14 Order name: Basic Metabolic Panel [facility] 02/23 20:14 Order name: CBC with Diff; Complete Time: 22:[address] [facility] 02/23 20:14 Order name: Ckmb [facility] 02/23 20:14 Order name: CPK [facility] 02/23 20:14 Order name: LFT's [facility] 02/23 20:14 Order name: Magnesium [facility] 02/23 20:14 Order name: NT PRO-BNP [facility] 02/23 20:14 Order name: PT-INR; Complete Time: 22:[address] [facility] 02/23 20:14 Order name: Ptt, Activated; Complete Time: 22:[address] [facility] 02/23 20:14 Order name: Troponin (emerg Dept Use Only); Complete Time: 22:[address] [facility] 02/23 20:14 Order name: Lipase [facility] 02/23 20:14 Order name: Lipid Profile [facility] 02/23 20:14 Order name: Acetaminophen [facility] 02/23 20:14 Order name: XRAY Chest (1 view) [facility] 02/23 20:14 Order name: ETOH Level [facility] 02/23 20:14 Order name: Salicylate; Complete Time: 22:[address] [facility] 02/23 20:14 Order name: Urine Drug Screen; Complete Time: 22:[address] [facility] 02/23 20:14 Order name: CT Abd/Pelvis - W/Contrast [facility] 02/23 20:48 Order name: RAD; Complete Time: 22:02 EDMS 02/23 22:04 Order name: LDL, Direct EDRI 02/23 20:14 Order name: EKG; Complete Time: 20:[address] [facility] 02/23 20:14 Order name: Cardiac monitoring; Complete Time: 20:[address] [facility] 02/23 20:14 Order name: EKG - Nurse/Tech; Complete Time: 20:[address] [facility] 02/23 20:14 Order name: IV Saline Lock; Complete Time: 20:[address] [facility] 02/23 20:14 Order name: Labs collected and sent; Complete Time: 20:[address] [facility] 02/23 20:14 Order name: O2 Per Protocol; Complete Time: 20:[address] [facility] 02/23 20:14 Order name: O2 Sat Monitoring; Complete Time: 20:[address] [facility] 02/23 20:14 Order name: Urine Dipstick-Ancillary (obtain specimen); Complete Time: 20:[address] [facility] Administered Medications: 20:36 Drug: Pepcid 20 mg Route: IVP; Site: right antecubital; rv 20:52 Follow up: Response: No adverse reaction sr5 20:36 Drug: morphine 4 mg Route: IVP; Site: right antecubital; rv 20:52 Follow up: Response: Pain is decreased sr5 20:36 Drug: Zofran 4 mg Route: IVP; Site: right antecubital; rv 20:52 Follow up: Response: Nausea is decreased sr5 20:37 Drug: NS 0.9% 1000 ml Route: IV; Rate: 1 bolus; Site: right antecubital; rv 02/24 00:03 Follow up: IV Status: Completed infusion; IV Intake: 1000ml sr5 02/23 20:37 Drug: NS 0.9% 1000 ml Route: IV; Rate: 1 bolus; Site: right antecubital; rv 21:44 Follow up: IV Status: Completed infusion; IV Intake: 1000ml sr5 22:31 Drug: morphine 4 mg Route: IVP; Site: right antecubital; rv 23:10 Follow up: Response: Pain is decreased sr5 22:50 Drug: hydrALAZINE 5 mg Route: IV; Rate: per protocol; Site: right antecubital; sr5 23:50 Follow up: Response: Blood pressure is lowered sr5 23:50 Follow up: IV Status: Completed infusion; IV Intake: 0.25ml sr5 23:09 Drug: hydrALAZINE 5 mg Route: IV; Rate: per protocol; Site: right antecubital; sr5 23:50 Follow up: Response: Blood pressure is lowered sr5 23:50 Follow up: IV Status: Completed infusion; IV Intake: 5ml sr5 23:51 Follow up: IV Intake: 0.25ml sr5 02/24 00:03 Drug: NS 0.9% 1000 ml Route: IV; Rate: 125 ml/hr; Site: right antecubital; sr5 Disposition: 02/23/18 20:19 Hospitalization ordered by Priti Larry for Inpatient Admission. Preliminary diagnosis are Abdominal tenderness, Type 2 diabetes mellitus, Acute pancreatitis, Essential (primary) hypertension. - Bed requested for Telemetry/MedSurg (Inpatient). - Status is Inpatient Admission. bb - Condition is Fair. - Problem is new. - Symptoms have improved. UTI on Admission? No Signatures: Dispatcher [employer] EDCharissa Stone RN RN mw Anderson, Corey, MD MD cha Ballard, Brenda, RN RN bb Silviano Balderrama RN RN sr5 Brannon Saul, RN RN rv Corrections: (The following items were deleted from the chart) 02/23 20:27 20:19 Hospitalization Ordered by Priti Larry MD for Inpatient Admission. Preliminary mw diagnosis is Abdominal tenderness; Type 2 diabetes mellitus; Acute pancreatitis. Bed requested for Telemetry/MedSurg (Inpatient). Status is Inpatient Admission. Condition is Fair. Problem is new. Symptoms have improved. UTI on Admission? No. maegan 22:42 20:27 02/23/2018 20:19 Hospitalization Ordered by Priti Larry MD for Inpatient maegan Admission. Preliminary diagnosis is Abdominal tenderness; Type 2 diabetes mellitus; Acute pancreatitis. Bed requested for Telemetry/MedSurg (Inpatient). Status is Inpatient Admission. Condition is Fair. Problem is new. Symptoms have improved. UTI on Admission? No. mw 22:59 19:34 Home Meds: Celexa 10 mg Oral tab 1 tab once daily; sr5 sr5 02/24 00:18 02/23 22:42 02/23/2018 20:19 Hospitalization Ordered by Priti Larry MD for Inpatient bb Admission. Preliminary diagnosis is Abdominal tenderness; Type 2 diabetes mellitus; Acute pancreatitis; Essential (primary) hypertension. Bed requested for Telemetry/MedSurg (Inpatient). Status is Inpatient Admission. Condition is Fair. Problem is new. Symptoms have improved. UTI on Admission? No. maegan
--- NOTE | 2018-02-23 20:19 | ER ---
Nurse's Notes [facility] Name: Alex Auguste Age: 37 yrs Sex: Male : 1980 Arrival Date: 02/23/2018 Time: 19:11 Bed 27 Private MD: Gino Lira Diagnosis: Abdominal tenderness;Type 2 diabetes mellitus;Acute pancreatitis;Essential (primary) hypertension Presentation: 02/23 19:30 Presenting complaint: Patient states: epigastric/RUQ pain, constant, since yesterday. sr5 Vomiting x 2 today. Denies fever/diarrhea. Reports BM today, "firm and hard to get out". Reports PMH= elevated triglycerides/pancreatitis, TypeII DM, PSH=adrienne. Transition of care: patient was not received from another setting of care. Onset of symptoms was February 22, 2018. Risk Assessment: Do you want to hurt yourself or someone else? Patient reports no desire to harm self or others. Initial Sepsis Screen: Does the patient meet any 2 criteria? No. Patient's initial sepsis screen is negative. Does the patient have a suspected source of infection? No. Patient's initial sepsis screen is negative. Care prior to arrival: None. 19:30 Method Of Arrival: Ambulatory sr5 19:30 Acuity: [place] 3 sr5 Triage Assessment: 19:34 General: Appears uncomfortable, Behavior is calm, cooperative. Pain: Complains of pain sr5 in epigastric area and right upper quadrant Pain currently is 10 out of 10 on a pain scale. Quality of pain is described as sharp, Pain began 1 day ago. Is continuous. Neuro: No deficits noted. Cardiovascular: No deficits noted. Respiratory: No deficits noted. GI: Abdomen is flat, non-distended, Bowel sounds present X 4 quads. Abd is soft Abd is non tender Reports upper abdominal pain, nausea, vomiting. : No signs and/or symptoms were reported regarding the genitourinary system. Derm: No signs and/or symptoms reported regarding the dermatologic system. Musculoskeletal: No signs and/or symptoms reported regarding the musculoskeletal system. Historical: - Allergies: 19:34 No Known Allergies; sr5 - Home Meds: 19:34 gemfibrozil 600 mg Oral tab 1 tab 2 times per day [Active]; Lantus 100 unit/mL Sub-Q sr5 soln 31 unit nightly [Active]; Novolog 100 unit/mL Sub-Q soln sliding scale tid with meals [Active]; citalopram 20 mg tab 1 tab once daily [Active]; 22:59 trazodone 100 mg Oral tab PRN sleep [Active]; sr5 - PMHx: 19:34 Diabetes - IDDM; High Triglycerides; Hyperlipidemia; Pancreatitis; sr5 - PSHx: 19:34 Cholecystectomy; sr5 - Immunization history:: Adult Immunizations unknown. - Social history:: Smoking status: Patient/guardian denies using tobacco, never smoked. - Ebola Screening: : Patient negative for fever greater than or equal to 101.5 degrees Fahrenheit, and additional compatible Ebola Virus Disease symptoms. - Family history:: not pertinent. Screenin:49 Abuse screen: Denies threats or abuse. Nutritional screening: No deficits noted. sr5 Tuberculosis screening: No symptoms or risk factors identified. Fall Risk No fall in past 12 months (0 pts). Secondary diagnosis (15 points) IV access (20 points). Ambulatory Aid- None/Bed Rest/Nurse Assist (0 pts). Gait- Normal/Bed Rest/Wheelchair (0 pts) Mental Status- Oriented to own ability (0 pts). Total German Fall Scale indicates Low Risk Score (25-44 pts). Fall prevention measures have been instituted. Frequent Obs/Assesments occuring As available Patient and Family Educated on Fall Prevention Program and strategies. Assessment: 19:47 Reassessment: MD at bedside. sr5 20:49 General: Appears uncomfortable. Pain: Complains of pain in left upper quadrant and sr5 right upper quadrant and epigastric area Pain currently is 8 out of 10 on a pain scale. Neuro: No deficits noted. Cardiovascular: No deficits noted. Respiratory: No deficits noted. GI: Reports upper abdominal pain, nausea, vomiting. 21:45 Reassessment: No changes from previously documented assessment. Patient and/or family sr5 updated on plan of care and expected duration. Pain level reassessed. Patient is alert, oriented x 3, equal unlabored respirations, skin warm/dry/pink. Completed drinking CT contrast. CT dept notified. No further vomiting noted. Pt appears to be in no distress, however reports pain has remained the same. MD notified, no new orders at this time. 23:48 Reassessment: Patient and/or family updated on plan of care and expected duration. Pain sr5 level reassessed. Patient is alert, oriented x 3, equal unlabored respirations, skin warm/dry/pink. Reports pain is returning.. 02/24 00:04 Reassessment: No changes from previously documented assessment. Patient and/or family sr5 updated on plan of care and expected duration. Pain level reassessed. Patient is alert, oriented x 3, equal unlabored respirations, skin warm/dry/pink. Report called to 4th floor. Vital Signs: 02/23 19:34 BP 154 / 111; Pulse 81; Resp 16; Temp 98.7; Pulse Ox 96% on R/A; Weight 81.19 kg (R); sr5 Height 5 ft. 10 in. (177.80 cm); Pain 10/10; 20:49 BP 155 / 108; Pulse 81; Resp 18; Pulse Ox 97% ; Pain 8/10; sr5 21:16 BP 149 / 105; Pulse 72; Resp 14; Pulse Ox 100% on R/A; sr5 21:45 BP 154 / 101; Pulse 89; Resp 18; Pulse Ox 97% on R/A; sr5 23:00 BP 151 / 104; sr5 23:48 BP 137 / 105; Pulse 83; Resp 16; Temp 98.1(O); Pulse Ox 97% on R/A; Pain 8/10; sr5 19:34 Body Mass Index 25.68 (81.19 kg, 177.80 cm) sr5 23:00 post Hydralazine admin#1 sr5 Vitals: 20:49 Cardiac Rhythm Assessment Sinus arrythmia. sr5 21:45 Cardiac Rhythm Assessment Sinus rhythm. sr5 23:48 Cardiac Rhythm Assessment Sinus rhythm. sr5 ED Course: 19:11 Patient arrived in ED. sb2 19:11 Gino Lira MD is Private Physician. sb2 19:16 Silviano Balderrama, RN is Primary Nurse. sr5 19:20 Manpreet Nina MD is Attending Physician. maegan 19:32 Triage completed. sr5 19:34 Arm band placed on right wrist. sr5 19:45 Urine collected: clean catch specimen, clear, tata colored. jp3 19:53 Bed in low position. Call light in reach. Side rails up X 1. jp3 20:05 Inserted saline lock: 20 gauge in right antecubital area, using aseptic technique. rv 20:10 Initial lab(s) drawn, by me, by ED staff, sent to lab. jp3 20:18 Priti Larry MD is Hospitalizing Provider. maegan 20:37 X-ray completed. Portable x-ray completed in exam room. Patient tolerated procedure bb2 well. 20:47 Acetaminophen Sent. sr5 20:47 ETOH Level Sent. sr5 20:47 Salicylate Sent. sr5 20:47 Urine Drug Screen Sent. sr5 20:48 Lipid Profile Sent. jp3 20:48 Lipase Sent. jp3 20:48 Basic Metabolic Panel Sent. jp3 20:48 Ckmb Sent. jp3 20:48 CPK Sent. jp3 20:48 LFT's Sent. jp3 20:48 Magnesium Sent. jp3 20:48 NT PRO-BNP Sent. jp3 20:48 PT-INR Sent. jp3 20:48 Ptt, Activated Sent. jp3 20:49 Awaiting lab results. sr5 20:49 filtration supervisor on. Pulse ox on. NIBP on. sr5 20:49 Troponin (emerg Dept Use Only) Sent. jp3 20:49 No provider procedures requiring assistance completed. EKG done, by ED staff, reviewed sr5 by Manpreet Nina MD. Missed attempt(s): 20 gauge in left forearm. antecubital area. Bleeding controlled, band aid applied, catheter tip intact. 21:08 Lights dimmed. Warm blanket given. Pillow given. gave patient a pair of non-slide socks.jp3 23:00 Patient admitted, IV remains in place. sr5 23:27 Patient moved to AL via wheelchair. eh Administered Medications: 20:36 Drug: Pepcid 20 mg Route: IVP; Site: right antecubital; rv 20:52 Follow up: Response: No adverse reaction sr5 20:36 Drug: morphine 4 mg Route: IVP; Site: right antecubital; rv 20:52 Follow up: Response: Pain is decreased sr5 20:36 Drug: Zofran 4 mg Route: IVP; Site: right antecubital; rv 20:52 Follow up: Response: Nausea is decreased sr5 20:37 Drug: NS 0.9% 1000 ml Route: IV; Rate: 1 bolus; Site: right antecubital; rv 02/24 00:03 Follow up: IV Status: Completed infusion; IV Intake: 1000ml sr5 02/23 20:37 Drug: NS 0.9% 1000 ml Route: IV; Rate: 1 bolus; Site: right antecubital; rv 21:44 Follow up: IV Status: Completed infusion; IV Intake: 1000ml sr5 22:31 Drug: morphine 4 mg Route: IVP; Site: right antecubital; rv 23:10 Follow up: Response: Pain is decreased sr5 22:50 Drug: hydrALAZINE 5 mg Route: IV; Rate: per protocol; Site: right antecubital; sr5 23:50 Follow up: Response: Blood pressure is lowered sr5 23:50 Follow up: IV Status: Completed infusion; IV Intake: 0.25ml sr5 23:09 Drug: hydrALAZINE 5 mg Route: IV; Rate: per protocol; Site: right antecubital; sr5 23:50 Follow up: Response: Blood pressure is lowered sr5 23:50 Follow up: IV Status: Completed infusion; IV Intake: 5ml sr5 23:51 Follow up: IV Intake: 0.25ml sr5 02/24 00:03 Drug: NS 0.9% 1000 ml Route: IV; Rate: 125 ml/hr; Site: right antecubital; sr5 Intake: 02/23 21:44 IV: 1000ml; Total: 1000ml. sr5 23:50 IV: 5ml; Total: 1005ml. sr5 23:50 IV: 0ml; Total: 1005ml. sr5 23:51 IV: 0ml; Total: 1006ml. sr5 02/24 00:03 IV: 1000ml; Total: 2006ml. sr5 Outcome: 02/23 20:19 Decision to Hospitalize by Provider. maegan 22:59 Admitted to Med/surg via wheelchair, room 406. sr5 22:59 Condition: stable 22:59 Instructed on the need for admit. 02/24 00:18 Patient left the ED. bb Signatures: Manpreet Nina MD MD cha Hagler, Ervin eh Ballard, Brenda RN RN Silviano Huertas RN RN sr5 Josie Witt bb2 Velma Perkins2 Brannon Saul RN RN rv [place] jp3 Corrections: (The following items were deleted from the chart) 02/23 22:59 19:34 Home Meds: Celexa 10 mg Oral tab 1 tab once daily; sr5 sr5
[2018-02-23] MEDS ORDERED: MORPHINE 4 MG/ML SYR ONE ×2 (20:32→22:33)
[2018-02-23] MEDS ORDERED: ONDANSETRON 4 MG/2 ML VIAL ONE (20:32)
[2018-02-23] MEDS ORDERED: FAMOTIDINE 20 MG/2 ML VIAL IV ONE (20:32)
[2018-02-23 20:42] LABS: Absolute Lymphocytes (CBC) 1.2 K/uL (0.7-4.9); Absolute Monocytes 0.3 K/uL (0.1-1.3); Absolute Neutrophil 5.4 K/uL (1.8-8.0); Eosinophils % 1.1 % (0-4.4); Hematocrit 42.9 % (39.6-49.0); Lymphocytes % 16.5 % (15.3-44.8); MCH 29.9 pg (27.0-35.0); MCV 83.7 fL (80-100); MPV 7.7 fL (7.6-11.3); Monocytes % 4.8 % (3.3-12.3); RBC Red Blood Cell Count 5.12 M/uL (4.33-5.43)
--- NOTE | 2018-02-23 20:48 | RAD REPORT ---
EXAM DESCRIPTION: RAD - Chest Single View - 02/23/2018 8:39 pm CLINICAL HISTORY: ABDOMINAL DISTENTION Chest pain. COMPARISON: Chest Single View dated 12/16/2016; CHEST PA AND LAT 2 VIEW dated 04/17/2015; CHEST PA AND LAT 2 VIEW dated 08/17/2012; ABDOMEN ACUTE SERIES dated 08/15/2012 FINDINGS: Portable technique limits examination quality. The lungs are grossly clear. The heart is normal in size. No displaced fractures. IMPRESSION: No acute intrathoracic process suspected.
[2018-02-23 20:49] LABS: Protime INR 0.95
[2018-02-23 20:53] LABS: Barbiturates NEGATIVE (NEGATIVE); Benzodiazepines NEGATIVE (NEGATIVE); Cocaine NEGATIVE (NEGATIVE); METHAMPHETAM NEGATIVE (NEGATIVE); Methadone NEGATIVE (NEGATIVE); Opiates NEGATIVE (NEGATIVE); Phencyclidine NEGATIVE (NEGATIVE); THC Cannibis POSITIVE (NEGATIVE)
[2018-02-23] MEDS ORDERED: ACETAMINOPHEN 500 MG TAB PO PRN (21:20)
[2018-02-23] MEDS ORDERED: ONDANSETRON 4 MG/2 ML VIAL IV PRN (21:20)
[2018-02-23 21:40] LABS: ALT/SGPT 27 U/L (12-78); Albumin 3.9 g/dL (3.4-5.0); Alkaline Phosphatase 75 U/L (45-117); BUN Blood Urea Nitrogen 11 mg/dL (7-18); Bicarbonate 31 mmol/L (21-32); Bilirubin Direct 0.1 mg/dL (0-0.2); Bilirubin Total 1.4 mg/dL (0.2-1.0); CKMB Creatine Kinase MB < 1.0 ng/mL (0.3-3.6); HDL Cholesterol 18 mg/dL (40-60); Lipase 269 U/L (73-393); NT PRO-BNP 36 pg/mL (<125); Protein, Total 7.7 g/dL (6.4-8.2); Sodium Level 137 mmol/L (136-145)
[2018-02-23 21:41] LABS: Alcohol Serum/Plasma < 3 mg/dL (<3)
[2018-02-23 21:42] LABS: Potassium 4.2 mmol/L (3.5-5.1)
[2018-02-23 21:44] LABS: AST/SGOT 14 U/L (15-37); Creatine Phosphokinase 45 U/L (39-308); Glucose Level 387 mg/dL (74-106)
[2018-02-23 21:45] LABS: LDL Cholesterol, Calculated ND (<130); Magnesium 1.9 mg/dL (1.8-2.4)
[2018-02-23 21:59] LABS: LDL, Direct 32 mg/dL (100-129)
[2018-02-23] MEDS ORDERED: HYDRALAZINE HCL 20 MG/ML VIAL ONE (22:51)
[2018-02-24] MEDS: NA CHLORIDE 0.9% 1,000 ML IV SCH ×7 (00:57→20:54)
[2018-02-24 01:00] VITALS: BMI 25.0
[2018-02-24] MEDS: MORPHINE 4 MG/ML SYR IV PRN ×5 (03:02→23:22)
[2018-02-24 04:26] LABS: MPV 7.9 fL (7.6-11.3)
[2018-02-24 04:33] LABS: Absolute Lymphocytes (CBC) 1.5 K/uL (0.7-4.9); Absolute Monocytes 0.3 K/uL (0.1-1.3); Absolute Neutrophil 3.6 K/uL (1.8-8.0); Basophils % 0.6 % (0-1.3); Eosinophils % 1.5 % (0-4.4); Hematocrit 37.3 % (39.6-49.0); MCH 30.4 pg (27.0-35.0); MCV 84.2 fL (80-100); RBC Red Blood Cell Count 4.43 M/uL (4.33-5.43)
[2018-02-24 04:39] LABS: ALT/SGPT 17 U/L (12-78); AST/SGOT 12 U/L (15-37); Albumin 3.3 g/dL (3.4-5.0); Alkaline Phosphatase 60 U/L (45-117); BUN Blood Urea Nitrogen 9 mg/dL (7-18); Bicarbonate 27 mmol/L (21-32); Bilirubin Total 0.7 mg/dL (0.2-1.0); Glucose Level 349 mg/dL (74-106); Lipase 310 U/L (73-393); Potassium 3.5 mmol/L (3.5-5.1); Protein, Total 6.3 g/dL (6.4-8.2); Sodium Level 137 mmol/L (136-145)
--- NOTE | 2018-02-24 06:33 | RAD REPORT ---
EXAM DESCRIPTION: CT - Abdomen Pelvis W Contrast - 02/24/2018 4:23 am CLINICAL HISTORY: Abdominal pain, nausea and vomiting, history pancreatitis, history of cholecystect francisca A preliminary written report was provided at the time of the study, and the report was reviewed prio r to final dictation. COMPARISON: CT August 2017. TECHNIQUE: Biphasic, helical CT imaging of the abdomen and pelvis was performed following 100 ml non -ionic IV contrast. Oral contrast was given. All CT scans are performed using dose optimization technique as appropriate and may include automated exposure control or mA/KV adjustment according to patient size. FINDINGS: No suspicious findings in the lung bases. No suspicious liver finding. Stable splenomegaly noted. Cholecystectomy clips are present with no haleigh iary tree dilatation. Mild stranding is present in the peripancreatic fat near the head and uncinate process. There is a stable 5 centimeter pancreatic tail pseudocyst. There is significant wall thicken ing and edema involving the distal duodenum. Symmetric renal function is seen with no hydronephrosis or suspicious renal mass. No pyelonephritis o r acute renal parenchymal process. No urinary bladder abnormality. No gastric dilatation or wall thickening. Proximal duodenum shows no acute findings. Jejunum and ileu m show no acute findings. No acute colon process. No free air, free fluid or other inflammatory stranding. No hernia, mass or bulky lymphadenopathy. Multiple dilated veins in the upper abdomen. Varices pattern is similar to comparison. No adrenal ab normality. No suspicious bony findings. IMPRESSION: Mild stranding in the peripancreatic fat consistent with a mild acute pancreatitis. Stab le 5 centimeter pancreatic tail pseudocyst. Significant wall thickening and edema of the distal duodenum. This is typically secondary to pancreat itis. The finding is more prominent than the pancreatic findings. A primary duodenal process is not e xcluded. Stable splenomegaly.
--- NOTE | 2018-02-24 08:50 | P.HP ---
Certification for Inpatient Patient admitted to: Inpatient With expected LOS: >2 Midnights Patient will require the following post-hospital care: None Practitioner: I am a practitioner with admitting privileges, knowledge of patient current condition, hospital course, and medical plan of care. Services: Services provided to patient in accordance with Admission requirements found in Title 42 Section 412.3 of the Code of Federal Regulations Patient History Date of Service: 02/23/18 Reason for admission: Abdominal pain; acute pancreatitis History of Present Illness: Patient is a 37yo who was admitted to the hospital with abdominal pain. Patient was found to have acute pancreatitis. Patient has hypertriglyceridemia. Patient has not been complaints with his medications. He had severe abdominal discomfort. He was found to have discomfort and pancreatitis. Allergies No Known Drug Allergies Allergy (Verified 03/13/17 10:22) NONE No Known Allergies Allergy (Uncoded 04/18/17 05:04) Unknown Home Medications: Insulin Aspart [Novolog Flexpen] See Protocol SQ AC 12/16/16 Insulin Glargine Human [Lantus*] 35 units SQ DAILY 12/16/16 Gemfibrozil [Lopid*] 600 mg PO BID #60 tab 12/20/16 Promethazine HCl 25 mg PO Q8HP PRN #30 tablet 03/18/17 Citalopram Hydrobromide [Celexa] 20 mg PO BEDTIME 02/24/18 - Past Medical/Surgical History Has patient received pneumonia vaccine in the past: Yes Diabetic: Yes -: pancreatitis due to high triglycerides x4 yrs -: diabetic x5 yrs -: pancreatitis -: cholecystectomy -: fx wrist -: knee surg - Family History Mother Medical History: Heart disease Notes: Recent ME - Social History Smoking Status: Never smoker Alcohol use: No CD- Drugs: No Caffeine use: No Place of Residence: Home Review of Systems 10-point ROS is otherwise unremarkable Physical Examination - Vital Signs Temperature: 97.2 F Blood Pressure: 110/67 Pulse: 73 Respirations: 16 Pulse Ox (%): 98 - Physical Exam General: Alert, In no apparent distress, Oriented x3 HEENT: Atraumatic, PERRLA, Mucous membr. moist/pink, EOMI, Sclerae nonicteric Neck: Supple, 2+ carotid pulse no bruit, No LAD, Without JVD or thyroid abnormality Respiratory: Clear to auscultation bilaterally, Normal air movement Cardiovascular: Regular rate/rhythm, Normal S1 S2, No murmurs Gastrointestinal: Normal bowel sounds, Soft and benign, Non-distended, No rebound, No guarding, Tenderness Musculoskeletal: No clubbing, No swelling, No tenderness Integumentary: No rashes Neurological: Normal gait, Normal speech, Normal strength at 5/5 x4 extr, Normal tone, Sensation intact, Cranial nerves 3-12 intact, Normal affect Lymphatics: No axilla or inguinal lymphadenopathy Assessment & Plan - Problems (Diagnosis) (1) Abdominal pain Onset Date: 02/24/18 Current Visit: Yes Status: Acute (2) Vomiting Onset Date: 02/24/18 Current Visit: Yes Status: Acute (3) Acute pancreatitis Onset Date: 03/16/17 Current Visit: No Status: Acute Qualifiers: Pancreatitis type: idiopathic Acute pancreatitis complication: unspecified Qualified Code(s): K85.00 - Idiopathic acute pancreatitis without necrosis or infection (4) Hypertriglyceridemia Onset Date: 03/16/17 Current Visit: No Status: Chronic - Plan Plan: 1. Aggressive IV hydration 2. Pain control 3. Resume gemfibrozil 4. Fish oil capsules 5. Monitor triglyceride levels and lipase 6. Monitor electrolytes 7. Repeat CT is symptoms worsen 8. Clear liquid diet in a.m. 8. GI and DVT prophylaxis Discharge Plan: Home Plan to discharge in: Greater than 2 days - Advance Directives Does patient have a Living Will: No Does patient have a Durable POA for Healthcare: No - Code Status/Comfort Care Code Status Assessed: Yes Code Status: Full Code Critical Care: No Time Spent Managing PTS Care (In Minutes): 50
[2018-02-24] MEDS ORDERED: INSULIN GLARGINE 100 UNITS/ML SQ SCH (09:00)
--- NOTE | 2018-02-24 09:03 | EKG ---
Test Date: 2018-02-23 Test Time: 20:42:28 Press Cleaner: JOVITA MEASUREMENT RESULTS: Intervals: Rate: 81 CO: 132 QRSD: 88 QT: 374 QTc: 434 [place]: P: 48 CO: 132 QRS: 71 T: 38 INTERPRETIVE STATEMENTS: Normal sinus rhythm with sinus arrhythmia Normal ECG Compared to ECG 12/16/2016 04:05:24 Sinus tachycardia no longer present Right-axis deviation no longer present Electronically Signed On 02-24-18 09:02:51 CDT by Sixto Reilly
[2018-02-24] MEDS: GEMFIBROZIL 600 MG TAB PO SCH ×2 (10:24→20:24)
[2018-02-24] MEDS: PREGABALIN 50 MG CAP PO SCH ×3 (10:24→20:24)
[2018-02-24] MEDS: LIPASE/PROTEASE/AMYLASE CAP PO SCH ×3 (10:25→20:24)
--- NOTE | 2018-02-24 10:25 | P.PN ---
Subjective Date of Service: 02/24/18 Chief Complaint: Abdominal pain; acute pancreatitis Subjective: Improving (feels slightly better. No vomiting, mild nausea.) Physical Examination - Vital Signs Temperature: 97.2 F Blood Pressure: 110/67 Pulse: 73 Respirations: 16 Pulse Ox (%): 98 - Physical Exam General: Alert, In no apparent distress HEENT: Atraumatic, PERRLA, EOMI Neck: Supple, JVD not distended Respiratory: Clear to auscultation bilaterally, Normal air movement Cardiovascular: Regular rate/rhythm, Normal S1 S2 Gastrointestinal: Normal bowel sounds, No tenderness Musculoskeletal: No tenderness Integumentary: No rashes Neurological: Normal speech, Normal tone, Normal affect Lymphatics: No axilla or inguinal lymphadenopathy - Studies Medications List Reviewed: Yes Assessment And Plan - Current Problems (Diagnosis) (1) Acute pancreatitis Onset Date: 03/16/17 Current Visit: Yes Status: Acute Qualifiers: Pancreatitis type: idiopathic Acute pancreatitis complication: unspecified Qualified Code(s): K85.00 - Idiopathic acute pancreatitis without necrosis or infection (2) Hypertriglyceridemia Onset Date: 03/16/17 Current Visit: Yes Status: Chronic (3) Diabetes mellitus Onset Date: 03/16/17 Current Visit: Yes Status: Chronic Qualifiers: Diabetes mellitus type: type 2 Diabetes mellitus [facility] insulin use: with 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
[2018-02-24] MEDS ORDERED: D50W 25 GM/50 ML SYRINGE IV PRN (10:26)
[2018-02-24] MEDS ORDERED: GLUCAGON 1 MG/VIAL IM PRN (10:26)
[2018-02-24] MEDS: INSULIN -REGULAR HUMAN 50 UNIT/0.5 ML ML SQ SCH ×2 (12:23→18:00)
[2018-02-24] MEDS: CITALOPRAM 10 MG TABLET PO SCH (20:24)
[2018-02-25] MEDS: MORPHINE 4 MG/ML SYR IV PRN ×5 (02:58→23:50)
[2018-02-25] MEDS: NA CHLORIDE 0.9% 1,000 ML IV SCH ×3 (03:00→17:56)
[2018-02-25] MEDS ORDERED: MORPHINE 2 MG/ML SYR ONE (05:33)
[2018-02-25] MEDS: INSULIN -REGULAR HUMAN 50 UNIT/0.5 ML ML SQ SCH ×5 (06:00→23:57)
[2018-02-25 08:36] LABS: ALT/SGPT 171 U/L (12-78); AST/SGOT 226 U/L (15-37); Alkaline Phosphatase 81 U/L (45-117); BUN Blood Urea Nitrogen 9 mg/dL (7-18); Bicarbonate 25 mmol/L (21-32); Bilirubin Total 1.1 mg/dL (0.2-1.0); Glucose Level 231 mg/dL (74-106); HDL Cholesterol 13 mg/dL (40-60); LDL Cholesterol, Calculated ND (<130); Lipase 573 U/L (73-393); Potassium 4.1 mmol/L (3.5-5.1); Protein, Total 5.5 g/dL (6.4-8.2); Sodium Level 143 mmol/L (136-145)
[2018-02-25 08:50] LABS: LDL, Direct 49 mg/dL (100-129)
[2018-02-25] MEDS: PREGABALIN 50 MG CAP PO SCH ×3 (09:58→20:09)
[2018-02-25] MEDS: LIPASE/PROTEASE/AMYLASE CAP PO SCH ×3 (09:59→20:09)
[2018-02-25] MEDS: GEMFIBROZIL 600 MG TAB PO SCH ×2 (09:59→20:09)
--- NOTE | 2018-02-25 15:39 | P.PN ---
Subjective Date of Service: 02/25/18 Chief Complaint: Abdominal pain; acute pancreatitis he is doing better, no vmiting, less abd pain Physical Examination - Vital Signs Temperature: 97.4 F Blood Pressure: 116/81 Pulse: 80 Respirations: 16 Pulse Ox (%): 100 - Physical Exam General: Alert, In no apparent distress HEENT: Atraumatic, PERRLA, EOMI Neck: Supple, JVD not distended Respiratory: Clear to auscultation bilaterally, Normal air movement Cardiovascular: Regular rate/rhythm, Normal S1 S2 Gastrointestinal: Normal bowel sounds, No tenderness Musculoskeletal: No tenderness Integumentary: No rashes Neurological: Normal speech, Normal tone, Normal affect Lymphatics: No axilla or inguinal lymphadenopathy - Studies Medications List Reviewed: Yes Assessment And Plan - Current Problems (Diagnosis) (1) Acute pancreatitis Onset Date: 03/16/17 Current Visit: Yes Status: Acute Qualifiers: Pancreatitis type: idiopathic Acute pancreatitis complication: unspecified Qualified Code(s): K85.00 - Idiopathic acute pancreatitis without necrosis or infection (2) Hypertriglyceridemia Onset Date: 03/16/17 Current Visit: Yes Status: Chronic (3) Diabetes mellitus Onset Date: 03/16/17 Current Visit: Yes Status: Chronic Qualifiers: Diabetes mellitus type: type 2 Diabetes mellitus jail insulin use: with professional employer consultant use Diabetes mellitus complication status: without complication Qualified Code(s): E11.9 - Type 2 diabetes mellitus without complications; Z79.4 - alf (current) use of insulin; Z79.4 - rn surgery ( current) use of insulin; Z79.4 - rn surgery (current) use of insulin; Z79.4 - alf (current) use of insulin (4) Dyslipidemia Onset Date: 04/21/17 Current Visit: Yes Status: Chronic (5) Gastric varices without bleeding Onset Date: 03/16/17 Current Visit: Yes Status: Chronic - Plan IMPROVING --cont iVF --NPO --He refuses Insulin drip to reduce TG level --Pain meds --Follow lipase and TG
[2018-02-25] MEDS: CITALOPRAM 10 MG TABLET PO SCH (20:09)
[2018-02-26] MEDS: NA CHLORIDE 0.9% 1,000 ML IV SCH ×3 (00:43→12:54)
[2018-02-26] MEDS: MORPHINE 4 MG/ML SYR IV PRN ×2 (04:11→08:27)
[2018-02-26] MEDS: INSULIN -REGULAR HUMAN 50 UNIT/0.5 ML ML SQ SCH ×3 (06:00→18:00)
[2018-02-26 06:51] LABS: ALT/SGPT 235 U/L (12-78); AST/SGOT 143 U/L (15-37); Albumin 3.1 g/dL (3.4-5.0); Alkaline Phosphatase 95 U/L (45-117); BUN Blood Urea Nitrogen 7 mg/dL (7-18); Bicarbonate 29 mmol/L (21-32); Bilirubin Total 1.1 mg/dL (0.2-1.0); Glucose Level 148 mg/dL (74-106); Lipase 504 U/L (73-393); Potassium 3.7 mmol/L (3.5-5.1); Protein, Total 5.8 g/dL (6.4-8.2); Sodium Level 143 mmol/L (136-145)
[2018-02-26 07:05] LABS: LDL, Direct 53 mg/dL (100-129)
[2018-02-26] MEDS: GEMFIBROZIL 600 MG TAB PO SCH ×2 (08:28→20:29)
[2018-02-26] MEDS: LIPASE/PROTEASE/AMYLASE CAP PO SCH ×3 (08:28→20:30)
[2018-02-26] MEDS: PREGABALIN 50 MG CAP PO SCH ×3 (09:48→20:29)
--- NOTE | 2018-02-26 10:44 | P.PN ---
Subjective Date of Service: 02/26/18 Chief Complaint: Abdominal pain; acute pancreatitis Subjective: Other (No change still complaining of abdominal pain he has had recurrent episodes of pancreatitis) Review of Systems 10-point ROS is otherwise unremarkable Physical Examination - Vital Signs Temperature: 97.9 F Blood Pressure: 123/67 Pulse: 81 Respirations: 18 Pulse Ox (%): 98 - Physical Exam General: Alert, Oriented x3, Moderate distress Neck: Supple Respiratory: Clear to auscultation bilaterally Cardiovascular: No edema, Normal S1 S2 Gastrointestinal: Normal bowel sounds, Tenderness (Patient has mild generalized tenderness) - Studies Medications List Reviewed: Yes Assessment & Plan - Problems (Diagnosis) (1) Acute pancreatitis Onset Date: 03/16/17 Current Visit: Yes Status: Acute Plan: Patient is 37 years of age admitted with acute recurrent pancreatitis liver function tests lipase all improved vital signs are stable/I have started him on TPN reduce IV fluids add p.o. OxyContin use Dilaudid p.r.n. no evidence of sepsis apparently he has had pancreatitis induced by high triglycerides which are 453 right now on declining Qualifiers: Pancreatitis type: idiopathic Acute pancreatitis complication: unspecified Qualified Code(s): K85.00 - Idiopathic acute pancreatitis without necrosis or infection
[2018-02-26] MEDS: HYDROMORPHONE HCL 2 MG/ML inj IV PRN ×3 (11:47→20:28)
[2018-02-26 11:59] LABS: Absolute Lymphocytes (CBC) 0.9 K/uL (0.7-4.9); Absolute Monocytes 0.2 K/uL (0.1-1.3); Absolute Neutrophil 1.6 K/uL (1.8-8.0); Basophils % 0.8 % (0-1.3); Eosinophils % 1.6 % (0-4.4); Hematocrit 35.5 % (39.6-49.0); MCH 29.7 pg (27.0-35.0); MCV 84.5 fL (80-100); MPV 8.2 fL (7.6-11.3); Monocytes % 6.6 % (3.3-12.3)
[2018-02-26 12:57] LABS: Blood Morphology Comment NOT SEEN (NOT SEEN); Platelet Estimate DECR; Urine White Blood Cell Casts OK
[2018-02-26] MEDS: AA 4.25%/D10W/ELECTROLYTES 2,000 ML, Lipids 20% 250 ML with MULTIVITAMINS INJ 10 ML IV SCH ×3 (16:43)
[2018-02-26] MEDS: CITALOPRAM 10 MG TABLET PO SCH (20:30)
[2018-02-27] MEDS: NA CHLORIDE 0.9% 1,000 ML IV SCH (00:20)
[2018-02-27] MEDS: HYDROMORPHONE HCL 2 MG/ML inj IV PRN ×4 (00:24→15:33)
[2018-02-27] MEDS: INSULIN -REGULAR HUMAN 50 UNIT/0.5 ML ML SQ SCH ×4 (00:24→17:31)
[2018-02-27 05:59] LABS: BUN Blood Urea Nitrogen 6 mg/dL (7-18); Bicarbonate 32 mmol/L (21-32); Glucose Level 167 mg/dL (74-106); Potassium 3.9 mmol/L (3.5-5.1); Sodium Level 138 mmol/L (136-145)
[2018-02-27] MEDS: PREGABALIN 50 MG CAP PO SCH ×3 (08:38→20:22)
[2018-02-27] MEDS: GEMFIBROZIL 600 MG TAB PO SCH ×2 (08:38→20:23)
[2018-02-27] MEDS: LIPASE/PROTEASE/AMYLASE CAP PO SCH ×3 (08:43→20:23)
--- NOTE | 2018-02-27 10:23 | P.PN ---
Subjective Date of Service: 02/27/18 Chief Complaint: Abdominal pain; acute pancreatitis Subjective: Improving (Patient is improving abdominal pain declining still requesting Dilaudid tolerating a clear diet) Review of Systems Unremarkable Physical Examination - Vital Signs Temperature: 98.8 F Blood Pressure: 108/71 Pulse: 105 Respirations: 18 Pulse Ox (%): 100 - Physical Exam General: Alert, In no apparent distress, Oriented x3 Respiratory: Clear to auscultation bilaterally Gastrointestinal: Normal bowel sounds, Soft and benign - Studies Medications List Reviewed: Yes Assessment & Plan - Problems (Diagnosis) (1) Acute pancreatitis Onset Date: 03/16/17 Current Visit: Yes Status: Acute Plan: Patient admitted with acute recurrent pancreatitis to p.o. OxyContin and Dilaudid p.r.n. labs ordered patient is on PPN will check lipid profile as he had hypertriglycerides and use recurrent pancreatitis in the past dietitian to evaluate and adjust his TPN tomorrow Juan Pablo consider advancing his diet Qualifiers: Pancreatitis type: idiopathic Acute pancreatitis complication: unspecified Qualified Code(s): K85.00 - Idiopathic acute pancreatitis without necrosis or infection
[2018-02-27 11:57] LABS: Albumin 3.1 g/dL (3.4-5.0); Bilirubin Direct 0.3 mg/dL (0-0.2); Bilirubin Total 1.4 mg/dL (0.2-1.0); Protein, Total 6.1 g/dL (6.4-8.2)
[2018-02-27] MEDS: OXYCODONE HCL 5 MG TAB PO PRN (12:37)
[2018-02-27] MEDS: AA 4.25%/D10W/ELECTROLYTES 2,000 ML, Lipids 20% 250 ML with MULTIVITAMINS INJ 10 ML IV SCH ×3 (17:00)
[2018-02-27] MEDS: HYDROMORPHONE HCL 1 MG/ML INJ IV PRN (20:22)
[2018-02-27] MEDS: CITALOPRAM 10 MG TABLET PO SCH (20:23)
[2018-02-27 22:40] VITALS: O2SAT 96
[2018-02-28] MEDS: HYDROMORPHONE HCL 1 MG/ML INJ IV PRN ×2 (00:52→08:15)
[2018-02-28] MEDS: INSULIN -REGULAR HUMAN 50 UNIT/0.5 ML ML SQ SCH ×3 (00:52→12:32)
[2018-02-28] MEDS: OXYCODONE HCL 5 MG TAB PO PRN (02:28)
[2018-02-28 05:13] LABS: BUN Blood Urea Nitrogen 8 mg/dL (7-18); Bicarbonate 30 mmol/L (21-32); Glucose Level 217 mg/dL (74-106); HDL Cholesterol 18 mg/dL (40-60); LDL Cholesterol, Calculated 30 (<130); Potassium 3.8 mmol/L (3.5-5.1); Sodium Level 137 mmol/L (136-145)
[2018-02-28 07:25] LABS: Amylase Level 19 U/L (25-115); Lipase 97 U/L (73-393)
--- NOTE | 2018-02-28 08:35 | P.PN ---
Date of Service: 02/28/18 According to nursing staff patient got out of bed and he urinated on the floor. Patient slipped on his urine and apparently he may have hit his head. His was there with him. Nurses are concerned the patient may be overmedicated with narcotics. There was concern that he may have gone unconscious for a brief 2nd after he hit the floor. I am going to order a stat CT scan of the head. Will do neuro checks. Will have to hold off on any pain medications for now so we can monitor his neuro status very closely. If it is CT is negative then he can resume his medications. However will need to monitor him closely as the nurses are concerned that patient is getting medicated even while sleeping because patient's is calling and asking for pain medication. I will get a CT scan of his abdomen and pelvis to further evaluate his pancreatitis to see if his condition is worsening or if he had any kind of necrosis. If this is the case then he may need to go to a tertiary care facility to better manage his care.
[2018-02-28] MEDS: LIPASE/PROTEASE/AMYLASE CAP PO SCH (09:00)
--- NOTE | 2018-02-28 09:33 | RAD REPORT ---
EXAM DESCRIPTION: CT - Head Brain Wo Cont - 02/28/2018 7:46 am CLINICAL HISTORY: Head injury status post fall. Headache COMPARISON: None. TECHNIQUE: Computed axial tomography of the head was obtained. IV contrast was not requested. All CT scans are performed using dose optimization technique as appropriate and may include automated exposure control or mA/KV adjustment according to patient size. FINDINGS: An intracranial bleed is not seen . The ventricles are normal in caliber. No extra-axial fluid collection is noted. Fluid within the sinuses/ mastoids is not seen. IMPRESSION: No acute intracranial abnormality is seen. If patient's symptoms persist MRI of the bra in would be recommended.
[2018-02-28] MEDS: PREGABALIN 50 MG CAP PO SCH (10:06)
[2018-02-28] MEDS: GEMFIBROZIL 600 MG TAB PO SCH (10:06)
--- NOTE | 2018-02-28 10:22 | RAD REPORT ---
EXAM DESCRIPTION: CTAbdomen Pelvis W Contrast - 02/28/2018 8:59 am CLINICAL HISTORY: Abdominal pain. pancreatitis; frequent pain meds COMPARISON: Abdomen Pelvis W Contrast dated 02/23/2018; Abdomen Pelvis W Contrast dated 08/23/2017 ; Abdomen Pelvis W Contrast dated 03/13/2017; Abdomen Pelvis W Contrast dated 12/16/2016 TECHNIQUE: Biphasic CT imaging of the abdomen and pelvis was performed with 100 ml non-ionic IV cont rast. All CT scans are performed using dose optimization technique as appropriate and may include automated exposure control or mA/KV adjustment according to patient size. FINDINGS: Trace right pleural fluid is seen. Airspace opacity has developed since the prior study in both lower lobes, greater on the left. This suggests aspiration/developing pneumonia. Fatty liver is seen. Cholecystectomy clips is present. Moderate splenomegaly. Multiple enlarged colla teral veins in the left upper quadrant. 5 cm cystic lesion is seen in the pancreatic tail, unchanged, compatible with pseudocyst. The adrenal glands and kidneys are within normal limits. No bowel obstruction, free air, free fluid or abscess. The appendix is not identified as a discrete structure, however, no secondary findings of appendicitis are identified. No evidence of significan t lymphadenopathy. No suspicious bony findings. IMPRESSION: Bibasilar lung opacities have developed since the comparative study, greater on the left . Findings probably indicate aspiration/developing pneumonia. Stable pancreatic tail pseudocyst. Splenomegaly is present with multiple venous collaterals noted left upper quadrant. This likely indic ates attenuation of blood flow within the splenic vein.
[2018-02-28] MEDS ORDERED: Levofloxacin500mg IV 500 MG/100 ML BAG IV SCH (12:00)
[2018-02-28 12:37] VITALS: BP 95/54; TEMP 97
--- NOTE | 2018-02-28 13:20 | P.DS ---
Admission Date: 02/23/18 Discharge Date: 02/28/18 Primary Care Provider: Dr. Ribeiro Disposition: AMA-LEFT AGAINST MEDICAL ADVIC Discharge Condition: GOOD Reason for Admission: Abdominal pain; acute pancreatitis Procedures: CT scan: COMPARISON: CT August 2017. TECHNIQUE: Biphasic, helical CT imaging of the abdomen and pelvis was performed following 100 ml non-ionic IV contrast. Oral contrast was given. All CT scans are performed using dose optimization technique as appropriate and may include automated exposure control or mA/KV adjustment according to patient size. FINDINGS: No suspicious findings in the lung bases. No suspicious liver finding. Stable splenomegaly noted. Cholecystectomy clips are present with no biliary tree dilatation. Mild stranding is present in the peripancreatic fat near the head and uncinate process. There is a stable 5 centimeter pancreatic tail pseudocyst. There is significant wall thickening and edema involving the distal duodenum. Symmetric renal function is seen with no hydronephrosis or suspicious renal mass. No pyelonephritis or acute renal parenchymal process. No urinary bladder abnormality. No gastric dilatation or wall thickening. Proximal duodenum shows no acute findings. Jejunum and ileum show no acute findings. No acute colon process. No free air, free fluid or other inflammatory stranding. No hernia, mass or bulky lymphadenopathy. Multiple dilated veins in the upper abdomen. Varices pattern is similar to comparison. No adrenal abnormality. No suspicious bony findings. IMPRESSION: Mild stranding in the peripancreatic fat consistent with a mild acute pancreatitis. Stable 5 centimeter pancreatic tail pseudocyst. Significant wall thickening and edema of the distal duodenum. This is typically secondary to pancreatitis. The finding is more prominent than the pancreatic findings. A primary duodenal process is not excluded. Stable splenomegaly. CT scan: COMPARISON: Abdomen Pelvis W Contrast dated 02/23/2018; Abdomen Pelvis W Contrast dated 08/23/2017; Abdomen Pelvis W Contrast dated 03/13/2017; Abdomen Pelvis W Contrast dated 12/16/2016 TECHNIQUE: Biphasic CT imaging of the abdomen and pelvis was performed with 100 ml non-ionic IV contrast. All CT scans are performed using dose optimization technique as appropriate and may include automated exposure control or mA/KV adjustment according to patient size. FINDINGS: Trace right pleural fluid is seen. Airspace opacity has developed since the prior study in both lower lobes, greater on the left. This suggests aspiration/developing pneumonia. Fatty liver is seen. Cholecystectomy clips is present. Moderate splenomegaly. Multiple enlarged collateral veins in the left upper quadrant. 5 cm cystic lesion is seen in the pancreatic tail, unchanged, compatible with pseudocyst. The adrenal glands and kidneys are within normal limits. No bowel obstruction, free air, free fluid or abscess. The appendix is not identified as a discrete structure, however, no secondary findings of appendicitis are identified. No evidence of significant lymphadenopathy. No suspicious bony findings. IMPRESSION: Bibasilar lung opacities have developed since the comparative study , greater on the left. Findings probably indicate aspiration/developing pneumonia. Stable pancreatic tail pseudocyst. Splenomegaly is present with multiple venous collaterals noted left upper quadrant. This likely indicates attenuation of blood flow within the splenic vein. - Problems (1) Atelectasis of both lungs Status: Acute (2) Pneumonia Status: Suspected Qualifiers: Laterality: bilateral Lung location: lower lobe of lung (3) Depression Status: Chronic Qualifiers: Depression Type: unspecified Qualified Code(s): F32.9 - Major depressive disorder, single episode, unspecified (4) Splenomegaly Status: Chronic (5) Thrombocytopenia Status: Acute (6) Abdominal pain Onset Date: 02/24/18 Status: Acute Qualifiers: Abdominal location: epigastric Qualified Code(s): R10.13 - Epigastric pain (7) Pancreatitis Onset Date: 03/16/17 Status: Acute Qualifiers: Chronicity: acute Pancreatitis type: other Acute pancreatitis complication: no infection or necrosis Qualified Code(s): K85.80 - Other acute pancreatitis without necrosis or infection (8) Diabetes mellitus Onset Date: 03/16/17 Status: Chronic Qualifiers: Diabetes mellitus type: type 2 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: with 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 use Diabetes mellitus complication status: without complication Qualified Code(s): E11.9 - Type 2 diabetes mellitus without complications; Z79.4 - detention (current) use of insulin; Z79.4 - detention ( current) use of insulin; 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 - 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 Pain was mainly localized to the epigastric region. Patient with history of pancreatitis secondary to hypertriglyceridemia. Triglycerides were elevated including pancreatic levels. Patient was admitted for treatment. Hospital Course: Patient was admitted for abdominal pain secondary to acute on chronic with recurrent pancreatitis with known pseudocyst to the tail of the pancreas and with history of hypertriglyceridemia. Patient was treated during the course of his stay. Patient required pain medication. Pain appeared to be out of proportion to clinical exam. Patient either required TPN. Prior to discharge triglyceride levels were significantly improved. Pancreatic levels within normal range. Patient was without any significant abdominal pain. No significant nausea, vomiting noted. There was some speculation that the patient had drug-seeking behavior. The patient was requesting pain medication when pain was no longer present. This was addressed in detail. Patient may need to see pain management as an outpatient. Patient reports that he has does not take any pain medication as an outpatient and he did not request any at discharge. Patient was to be discharged appropriately but the patient decided to leave against medical advice. Recommendation is for the patient to follow up with GI as an outpatient. Patient has seen GI in [place]. Recommendation is for the patient to continue with Lovaza 2 g 1 pill twice daily and fenofibrate 48 mg 1 pill daily. Patient will need to continue with a pancreatic diet. His pseudocyst will need to be monitored closely. Patient may continue with Creon 1 pill 3 times a day as well. Repeat CT scan showed possible pneumonia bilateral. At discharge patient was without any hypoxia. He was breathing appropriately. On exam lung sounds appeared appropriate. Patient likely had atelectasis as the patient required IV pain medication. At discharge he will be provided incentive spirometer. He will also continue with Levaquin 5 mg 1 pill daily for 7 days. Recommendation is to recheck chest x-ray in 2-4 weeks to monitor resolution. Patient has diabetes. Patient will continue with his insulin therapy. Recommendation is to maintain blood sugars less than 140 fasting and less than 200 after meals. Further adjustment can be done by his PCP. Patient has depression. Patient will continue with his medication. Patient likely has GERD. Recommendation is for the patient continue with Protonix 40 mg 1 pill once daily. Patient was positive for THC. THC education cessation will be provided. Vital Signs/Physical Exam: Temp Pulse Resp BP Pulse Ox 97 F 94 H 16 95/54 L 95 02/28/18 12:00 02/28/18 12:00 02/28/18 12:00 02/28/18 12:00 02/28/18 12:00 General: Alert, In no apparent distress, Oriented x3, Cooperative HEENT: Atraumatic Neck: Supple Respiratory: Clear to auscultation bilaterally, Normal air movement Cardiovascular: Normal pulses, Regular rate/rhythm Gastrointestinal: Normal bowel sounds, Soft and benign, Non-distended, No tenderness, No masses, No rebound, No guarding Musculoskeletal: No erythema, No tenderness, No warmth Integumentary: No tenderness/swelling, No erythema, No warmth, No cyanosis Neurological: Normal speech, Normal strength at 5/5 x4 extr, Normal tone, Normal affect Lymphatics: No axilla or inguinal lymphadenopathy Laboratory Data at Discharge: WBC 2.7 K/uL (4.3-10.9) L D 02/26/18 11:40 Hgb 12.5 g/dL (13.6-17.9) L 02/26/18 11:40 Hct 35.5 % (39.6-49.0) L 02/26/18 11:40 Plt Count 90 K/uL (152-406) L D 02/26/18 11:40 PT 11.2 SECONDS (9.5-12.5) 02/23/18 20:25 INR 0.95 02/23/18 20:25 APTT 33.2 SECONDS (24.3-36.9) 02/23/18 20:25 Sodium 137 mmol/L (136-145) 02/28/18 03:51 Potassium 3.8 mmol/L (3.5-5.1) 02/28/18 03:51 BUN 8 mg/dL (7-18) 02/28/18 03:51 Creatinine 0.90 mg/dL (0.55-1.3) 02/28/18 03:51 Glucose 217 mg/dL (74-106) H 02/28/18 03:51 Phosphorus 2.9 mg/dL (2.5-4.9) 02/26/18 11:40 Magnesium 1.9 mg/dL (1.8-2.4) 02/23/18 20:25 Total Bilirubin 1.4 mg/dL (0.2-1.0) H 02/27/18 11:21 AST 41 U/L (15-37) H D 02/27/18 11:21 ALT 148 U/L (12-78) H 02/27/18 11:21 Alkaline Phosphatase 91 U/L (45-117) 02/27/18 11:21 Triglycerides 261 mg/dL (<150) H 02/28/18 03:51 Cholesterol 100 mg/dL (<200) 02/28/18 03:51 LDL Cholesterol Direct 53 mg/dL (100-129) L 02/26/18 05:36 HDL Cholesterol 18 mg/dL (40-60) L 02/28/18 03:51 Cholesterol/HDL Ratio 5.56 02/28/18 03:51 Amylase 19 U/L (25-115) L 02/28/18 03:51 Lipase 97 U/L (73-393) 02/28/18 03:51 Home Medications: Insulin Aspart [Novolog Flexpen] See Protocol SQ AC 12/16/16 Insulin Glargine Human [Lantus*] 35 units SQ DAILY 12/16/16 Citalopram Hydrobromide [Celexa] 20 mg PO BEDTIME 02/24/18 Fenofibrate [Tricor*] 48 mg PO DAILY #30 tab 02/28/18 Levofloxacin [Levaquin] 500 mg PO DAILY #7 tablet 02/28/18 Lipase/Protease/Amylase [Carter Leavitt 36,000 Units Capsule] 1 each PO TID #90 capsule. 02/28/18 [place]-3 Acid Ethyl Esters [Lovaza] 2 gm PO BID #120 capsule 02/28/18 Ondansetron HCl [Zofran] 4 mg PO TID PRN #10 tablet 02/28/18 Pantoprazole [Protonix Tab] 40 mg PO DAILY #30 tab 02/28/18 New Medications: Fenofibrate [Tricor*] 48 mg PO DAILY #30 tab Levofloxacin [Levaquin] 500 mg PO DAILY #7 tablet Lipase/Protease/Amylase [Carter Leavitt 36,000 Units Capsule] 1 each PO TID #90 capsule. [place]-3 Acid Ethyl Esters [Lovaza] 2 gm PO BID #120 capsule Ondansetron HCl [Zofran] 4 mg PO TID PRN #10 tablet PRN Reason: Nausea / Vomiting Pantoprazole [Protonix Tab] 40 mg PO DAILY #30 tab Patient Discharge Instructions: 1. Patient left against medical advice. 2. Patient presented with abdominal pain secondary to acute on chronic with recurrent pancreatitis with known pseudocyst to the tail of the pancreas and with history of hypertriglyceridemia. Patient was treated during the course of his stay. Prior to discharge triglyceride levels were significantly improved. Pancreatic levels within normal range. Patient was without any significant abdominal pain. No significant nausea, vomiting noted. Patient may need to see pain management as an outpatient. Recommendation is for the patient to follow up with GI as an outpatient. Patient has seen GI in [place]. Recommendation is for the patient to continue with Lovaza 2 g 1 pill twice daily and fenofibrate 48 mg 1 pill daily. Patient will need to continue with a pancreatic diet. His pseudocyst will need to be monitored closely. Patient may continue with Creon 1 pill 3 times a day as well. 3. Repeat CT scan showed possible pneumonia bilateral. At discharge patient was without any hypoxia. At discharge he will be provided incentive spirometer. He will also continue with Levaquin 500 mg 1 pill daily for 7 days. Recommendation is to recheck chest x-ray in 2-4 weeks to monitor resolution. 4. Patient has diabetes. Patient will continue with his insulin therapy. Recommendation is to maintain blood sugars less than 140 fasting and less than 200 after meals. Further adjustment can be done by his PCP. 5. Patient has depression. Patient will continue with his medication. 6. Patient likely has GERD. Recommendation is for the patient continue with Protonix 40 mg 1 pill once daily. 7. Patient was positive for THC. THC education cessation will be provided. Diet: ADA Activity: Fall precautions Time spent managing pt's care (in minutes): 55
[2018-02-28] MEDS ORDERED: DOCOSAHEXANOIC AC/EPA 1000 MG PO SCH (21:00)
[2018-03-01] MEDS ORDERED: FENTANYL 25 MCG/PATCH TD SCH (09:00)
== END 2018-02-28 12:50 | disposition left against medical advice (07) | DRG 438 ==
LOC: ER 19:06 → ERHOLD 20:20 → 4TH 02-24 00:04
PROVIDERS: ADMIT Hospitalist; ATTEND Family Medicine
PROC: 3E0336Z Introduction of Nutritional Substance into Peripheral Vein, Percutaneous Approach (ICD-10-PCS; principal; 2018-02-26)
DX: K85.00 Idiopathic acute pancreatitis without necrosis or infection (principal); J18.9 Pneumonia, unspecified organism; J98.11 Atelectasis; K86.3 Pseudocyst of pancreas; E78.1 Pure hyperglyceridemia; Z79.4 Long term (current) use of insulin; E11.9 Type 2 diabetes mellitus without complications; I10 Essential (primary) hypertension; E78.5 Hyperlipidemia, unspecified; I86.4 Gastric varices; F32.9 Major depressive disorder, single episode, unspecified; R16.1 Splenomegaly, not elsewhere classified; D69.6 Thrombocytopenia, unspecified; F12.188 Cannabis abuse with other cannabis-induced disorder; W01.0XXA Fall on same level from slipping, tripping and stumbling without subsequent striking against object, initial encounter; Y92.230 Patient room in hospital as the place of occurrence of the external cause
CPT/HCPCS: 36415; 70450; 71045; 74177; 80048; 80053; 80061; 80076; 80307; 80320; 80329; 81003; 82150; 82550; 82553; 82962; 83690; 83735; 83880; 84100; 84478; 84484; 85025; 85610; 85730; 93005; 94760; 96361; 96365; 96375; 99285; J0360; J1170; J2270; J2405; J7030; Q9967

== ENCOUNTER 2018-04-10 18:37 | Emergency (ER) | payer BC ==
[2018-04-10] MEDS ORDERED: HYDROCODONE/CHLORPHEN 5 ML/OSYR ONE (19:13)
--- NOTE | 2018-04-10 19:25 | RAD REPORT ---
EXAM DESCRIPTION: RAD - Chest Pa And Lat (2 Views) - 04/10/2018 7:20 pm CLINICAL HISTORY: COUGH Chest pain. COMPARISON: Chest Single View dated 02/23/2018; Chest Single View dated 12/16/2016; CHEST PA AND LAT 2 VIEW dated 04/17/2015; CHEST PA AND LAT 2 VIEW dated 08/17/2012 FINDINGS: The lungs are clear. The heart is normal in size. No displaced fractures. IMPRESSION: No acute or concerning finding suspected.
--- NOTE | 2018-04-10 19:26 | RAD REPORT ---
EXAM DESCRIPTION: RAD - Elbow Left 3 View - 04/10/2018 7:20 pm CLINICAL HISTORY: Pain;Swelling COMPARISON: No comparisons FINDINGS: Prominent soft tissue swelling is seen along the posterior aspect of the elbow. Small olec ranon spur is seen. No fracture, dislocation or aggressive marrow lesion.
[2018-04-10] MEDS ORDERED: IPRATROPIUM BROM 0.5MG/2.5ML ONE (19:44)
[2018-04-10] MEDS ORDERED: ALBUTEROL 2.5 MG/3 ML NEB SOL ONE (19:44)
[2018-04-10] MEDS ORDERED: DOXYCYCLINE 100 MG CAP PO ONE (20:13)
[2018-04-10] MEDS ORDERED: SMZ./TMP. 800/160 MG TABLET ONE (20:13)
--- NOTE | 2018-04-10 20:20 | ER ---
Nurse's Notes [facility] Name: Alex Auguste Age: 37 yrs Sex: Male : 1980 Arrival Date: 04/10/2018 Time: 18:41 Bed 7 Private MD: Gino Lira Diagnosis: Cellulitis of left upper limb;Acute bronchitis, unspecified Presentation: 04/10 18:59 Presenting complaint: Patient states: pt reports having Left elbow pain and swelling sg and redness that started yesterday, sinus pain and congestion that has started a couple weeks ago, persistent non productive cough. Transition of care: patient was not received from another setting of care. Onset of symptoms was April 10, 2018. Risk Assessment: Do you want to hurt yourself or someone else? Patient reports no desire to harm self or others. Initial Sepsis Screen: Does the patient meet any 2 criteria? HR > 90 bpm. Does the patient have a suspected source of infection? Yes: Other: redness and pain with swelling to the left elbow. Care prior to arrival: None. 18:59 Method Of Arrival: Ambulatory sg 18:59 Acuity: [place] 3 sg Historical: - Allergies: 18:52 No Known Allergies; sg - PMHx: 18:52 Diabetes - IDDM; High Triglycerides; Hyperlipidemia; Pancreatitis; sg - PSHx: 18:52 Cholecystectomy; sg - Immunization history:: Adult Immunizations up to date. - Social history:: Smoking status: Patient/guardian denies using tobacco. - Ebola Screening: : No symptoms or risks identified at this time. Screenin:56 Abuse screen: Denies threats or abuse. Nutritional screening: No deficits noted. ea Tuberculosis screening: No symptoms or risk factors identified. Fall Risk None identified. Assessment: 19:21 General: Appears uncomfortable. Pain: Complains of pain in headache. Neuro: Level of ea Consciousness is awake, alert, obeys commands, Oriented to person, place, time. Cardiovascular: Heart tones S1 S2 present Patient's skin is warm and dry. Respiratory: Airway is patent Respiratory effort is even, unlabored, Respiratory pattern is regular, symmetrical, Breath sounds are clear bilaterally. GI: Abdomen is non-distended, Bowel sounds present X 4 quads. Derm: Skin is pink, warm \T\ dry. 20:28 Reassessment: Patient and/or family updated on plan of care and expected duration. Pain ea level reassessed. Patient is alert, oriented x 3, equal unlabored respirations, skin warm/dry/pink. Discharge instructions given to patient, verbalized the understanding of instruction. Patient states feeling better. Vital Signs: 19:02 BP 122 / 89; Pulse 112 MON; Resp 17 S; Pulse Ox 100% on R/A; Pain 10/10; sg 19:59 BP 140 / 96; Pulse 97; Resp 16; Pulse Ox 100% on R/A; mt 20:24 BP 131 / 90; Pulse 88; Resp 18; Temp 98; Pulse Ox 99% on R/A; ea ED Course: 18:41 Patient arrived in ED. mr 18:41 Gino Lira MD is Private Physician. mr 18:52 [facility]. cp 18:52 Magdy Tolliver MD is Attending Physician. cp 18:52 Arm band placed on. sg 19:02 Triage completed. sg 19:03 Farzana Moyer, RN is Primary Nurse. ea 19:20 X-ray completed. Patient tolerated procedure well. tm4 19:20 XRAY Chest Pa And Lat (2 Views) In Process Unspecified. EDMS 19:20 XRAY Elbow LEFT 3 view In Process Unspecified. EDMS 19:21 Patient has correct armband on for positive identification. Bed in low position. Call ea light in reach. Side rails up X 1. 20:19 Gino Lira MD is Referral Physician. cp 20:30 No provider procedures requiring assistance completed. Patient did not have IV access ea during this emergency room visit. Administered Medications: 19:09 Drug: Tussionex Pennkinetic ER 5 ml Route: PO; ea 20:23 Follow up: Response: No adverse reaction ea 19:53 Drug: Albuterol 2.5 mg Route: Inhalation; ea 19:53 Drug: AtroVENT Aerosol 0.5 mg Route: Inhalation; ea 20:00 Drug: Doxycycline 100 mg Route: PO; ea 20:23 Follow up: Response: No adverse reaction ea 20:00 Drug: Bactrim (160 mg-800 mg (DS) 1 tablet Route: PO; ea 20:23 Follow up: Response: No adverse reaction ea Outcome: 20:19 Discharge ordered by . cp 20:30 Discharged to home ambulatory, with family. ea 20:30 Condition: improved 20:30 Discharge instructions given to patient. 20:30 Instructed on discharge instructions, follow up and referral plans. medication usage, Demonstrated understanding of instructions, follow-up care, medications, Prescriptions given X 4. 20:31 Patient left the ED. pete Signatures: Dispatcher [employer] EDMS Merrick Keller, KECIA RN Rosalee Petersen, Leti tm4 Manpreet Pan PA PA cp [place] Farzana Downey RN RN ea
--- NOTE | 2018-04-10 20:20 | EDPHYS ---
Physician Documentation [facility] Name: Alex Auguste Age: 37 yrs Sex: Male : 1980 Arrival Date: 04/10/2018 Time: 18:41 Bed 7 Private MD: Gino Lira ED Physician Magdy Tolliver HPI: 04/10 19:10 This 37 yrs old Male presents to ER via Ambulatory with complaints of Elbow cp Swelling. 19:10 The patient or guardian complains of pain, that is acute, swelling, tenderness, cp redness. The complaints affect the left elbow. Context: resulted from unknown cause. Onset: The symptoms/episode began/occurred yesterday. Treatment prior to arrival includes: area outlined by significant other. The patient or guardian reports cough, that is constant, with productive sputum. Modifying factors: the symptoms are aggravated by activity. Associated signs and symptoms: Pertinent positives: rhinorrhea, sore throat, sinus pressure/congestion, Pertinent negatives: chest pain, fever, vomiting. Severity of symptoms: in the emergency department the symptoms are unchanged, despite home interventions. Historical: - Allergies: 18:52 No Known Allergies; sg - PMHx: 18:52 Diabetes - IDDM; High Triglycerides; Hyperlipidemia; Pancreatitis; sg - PSHx: 18:52 Cholecystectomy; sg - Immunization history:: Adult Immunizations up to date. - Social history:: Smoking status: Patient/guardian denies using tobacco. - Ebola Screening: : No symptoms or risks identified at this time. ROS: 19:15 Constitutional: Negative for body aches, chills, fever, poor PO intake. cp 19:15 Eyes: Negative for injury, pain, redness, and discharge. cp 19:15 ENT: Positive for sinus congestion, sore throat, Negative for drainage from ear(s), ear pain, difficulty swallowing, difficulty handling secretions. 19:15 Cardiovascular: Negative for chest pain, palpitations. 19:15 Respiratory: Positive for cough, Negative for hemoptysis. 19:15 Abdomen/GI: Negative for abdominal pain, nausea, vomiting, and diarrhea, constipation. 19:15 Back: Negative for radiated pain. 19:15 MS/extremity: Negative for injury or acute deformity, paresthesias. 19:15 Skin: Positive for erythema, swelling, of the left elbow. 19:15 Neuro: Negative for altered mental status, headache, weakness. 19:15 All other systems are negative. Exam: 19:30 Constitutional: The patient appears in no acute distress, alert, awake, cp non-diaphoretic, non-toxic, well developed, well nourished. 19:30 Head/Face: Normocephalic, atraumatic. cp 19:30 Eyes: Periorbital structures: appear normal, Pupils: equal, round, and reactive to light and accomodation, Extraocular movements: intact throughout, Conjunctiva: normal, no exudate, no injection, Sclera: no appreciated abnormality, Lids and lashes: appear normal, bilaterally. 19:30 ENT: External ear(s): are unremarkable, Ear canal(s): are normal, clear, TM's: bulging, is not appreciated, bilaterally, dullness, bilaterally, erythema, is not appreciated, bilaterally, Nose: nasal drainage, that is minimal, Mouth: Lips: moist, Oral mucosa: pink and intact, moist, Posterior pharynx: is normal, airway is patent, no erythema, no exudate. 19:30 Neck: ROM/movement: is normal, is supple, without pain, no range of motions limitations, no meningismus, no nuchal rigidity, Lymph nodes: no appreciated lymphadenopathy. 19:30 Chest/axilla: Inspection: normal, Palpation: is normal, no crepitus, no tenderness. 19:30 Cardiovascular: Rate: tachycardic, Rhythm: regular, Pulses: Pulses are 2+ in right radial artery and left radial artery. Edema: is not appreciated, JVD: is not appreciated. 19:30 Respiratory: the patient does not display signs of respiratory distress, Respirations: cp normal, no use of accessory muscles, no retractions, no splinting, no tachypnea, labored breathing, is not present, Breath sounds: bronchial sounds, that are mild, are heard diffusely, decreased breath sounds, are not appreciated, stridor, is not appreciated, + upper airway congestion. wheezing: is not appreciated. 19:30 Abdomen/GI: Inspection: abdomen appears normal, Bowel sounds: normal, in all quadrants, Palpation: abdomen is soft and non-tender, in all quadrants. 19:30 Musculoskeletal/extremity: Extremities: noted in the left elbow: erythema, swelling, tenderness, ROM: full active range of motion, in the left elbow, Sensation intact. 19:30 Skin: abscess, not appreciated, cellulitis, that is moderate, well demarcated, on the left elbow. 19:30 Neuro: Orientation: to person, place \\T\\ time. Mentation: lucid, able to follow commands, Cerebellar function: is grossly normal, Sensation: no obvious gross deficits. Vital Signs: 19:02 BP 122 / 89; Pulse 112 MON; Resp 17 S; Pulse Ox 100% on R/A; Pain 10/10; sg 19:59 BP 140 / 96; Pulse 97; Resp 16; Pulse Ox 100% on R/A; mt 20:24 BP 131 / 90; Pulse 88; Resp 18; Temp 98; Pulse Ox 99% on R/A; ea MDM: 18:52 Patient medically screened. cp 19:30 Differential diagnosis: tendonitis, bronchitis, URI, bursitis, septic joint, pneumonia, cp acute bronchitis. 20:18 Data reviewed: vital signs, nurses notes, radiologic studies, plain films. cp 20:18 Antibiotic administration: The patient is discharged and will get outpatient cp antibiotics, Doxycycline, Bactrim. Test interpretation: by ED physician or midlevel provider: plain radiologic studies. Counseling: I had a detailed discussion with the patient and/or guardian regarding: the historical points, exam findings, and any diagnostic results supporting the discharge/admit diagnosis, radiology results, the need for outpatient follow up, a family practitioner, to return to the emergency department if symptoms worsen or persist or if there are any questions or concerns that arise at home. Response to treatment: the patient's symptoms have mildly improved after treatment, and as a result, I will discharge patient. 04/10 19: Order name: XRAY Chest Pa And Lat (2 Views); Complete Time: 19:49 cp 04/10 19:02 Order name: XRAY Elbow LEFT 3 view; Complete Time: 19:49 cp Administered Medications: 19:09 Drug: Tussionex Pennkinetic ER 5 ml Route: PO; ea 20:23 Follow up: Response: No adverse reaction ea 19:53 Drug: Albuterol 2.5 mg Route: Inhalation; ea 19:53 Drug: AtroVENT Aerosol 0.5 mg Route: Inhalation; ea 20:00 Drug: Doxycycline 100 mg Route: PO; ea 20:23 Follow up: Response: No adverse reaction ea 20:00 Drug: Bactrim (160 mg-800 mg (DS) 1 tablet Route: PO; ea 20:23 Follow up: Response: No adverse reaction ea Disposition: 04/10/18 20:19 Discharged to Home. Impression: Cellulitis of left upper limb, Acute bronchitis, unspecified. - Condition is Stable. - Discharge Instructions: Acute Bronchitis, Adult, Cellulitis, Adult. - Prescriptions for Anaprox DS 550 mg Oral Tablet - take 1 tablet by ORAL route every 12 hours As needed; 20 tablet. Doxycycline Hyclate 100 mg Oral Tablet - take 1 tablet by ORAL route every 12 hours; 20 tablet. Bactrim DS 800- 160 mg Oral Tablet - take 1 tablet by ORAL route every 12 hours for 10 days; 20 tablet. Albuterol Sulfate 90 mcg/actuation - inhale 1-2 puff by INHALATION route every 4-6 hours; 1 Inhaler. Guaifenesin AC 10- 100 mg/5 mL Oral Liquid - take 10 milliliter by ORAL route every 4 hours As needed; 240 milliliter. - Medication Reconciliation Form, Thank You Letter, Antibiotic Education, Prescription Opioid Use form. - Follow up: Gino Lira MD; When: 48 Hours; Reason: Recheck today's complaints. - Problem is new. - Symptoms have improved. Addendum: 04/18/2018 16:40 Co-signature as Attending Physician, Magdy Tolliver MD. g s Signatures: Dispatcher [employer] EDMS Merrick Keller RN RN sg Page, Corey, PA PA cp Antunez, Elena, RN RN ea Starr, Gregory, MD MD Corrections: (The following items were deleted from the chart) 04/10 20:31 20:19 04/10/2018 20:19 Discharged to Home. Impression: Cellulitis of left upper limb; ea Acute bronchitis, unspecified. Condition is Stable. Forms are Medication Reconciliation Form, Thank You Letter, Antibiotic Education, Prescription Opioid Use. Follow up: Gino Lira; When: 48 Hours; Reason: Recheck today's complaints. Problem is new. Symptoms have improved. cp 04/11 16:14 15:58 This 37 yrs old Male presents to ER via Ambulatory with complaints of cp Elbow Swelling. cp 16:14 15:59 The patient or guardian complains of pain, that is acute, swelling, tenderness, cp redness, cp 16:14 15:59 The complaints affect the left elbow, cp cp 16:14 15:59 Context: resulted from unknown cause, cp cp 16:14 15:59 Onset: The symptoms/episode began/occurred yesterday, cp cp 16:14 15:59 Treatment prior to arrival includes: area outlined by significant other, cp cp 16:14 15:59 The patient or guardian reports cough, that is intermittent, with productive cp sputum, cp 16:14 15:59 Modifying factors: the symptoms are aggravated by activity, cp cp 16:14 15:59 Associated signs and symptoms: Pertinent negatives: fever, cp cp 16:14 15:59 Associated signs and symptoms: Pertinent positives: rhinorrhea, Pertinent cp negatives: chest pain, diarrhea, vomiting, cp :04/10 16:05 Constitutional: Negative for body aches, chills, fever, poor PO intake, cp cp 10/ 16:04/10 16:05 Eyes: Negative for injury, pain, redness, and discharge, cp cp 10 16:04/10 16:05 ENT: Positive for rhinorrhea, sinus congestion, sinus pain, sore throat, cp Negative for drainage from ear(s), ear pain, difficulty swallowing, difficulty handling secretions, cp 10/07 27:04/10 16:05 Cardiovascular: Negative for chest pain, edema, palpitations, cp cp 10/ 16:04/10 16:05 Respiratory: Positive for cough, "sounds productive", Negative for cp wheezing, cp 04/11 16:04/10 16:05 Abdomen/GI: Negative for abdominal pain, nausea, vomiting, and diarrhea, cp cp 04/11 16:04/10 16:05 Skin: Positive for erythema, swelling, of the left elbow, cp cp 04/11 16:04/10 16:05 Neuro: Negative for altered mental status, headache, cp cp 04/11 16:04/10 16:05 All other systems are negative, cp cp
[2018-04-10 20:49] VITALS: BP 131/90; TEMP 98; O2SAT 99
== END 2018-04-10 20:31 | disposition home or self-care (01) ==
LOC: ER 18:37
DX: L03.114 Cellulitis of left upper limb (principal); J20.9 Acute bronchitis, unspecified
CPT/HCPCS: 71046; 99284

== ENCOUNTER 2018-05-28 21:51 | Inpatient (IN) | payer BC ==
[2018-05-28] MEDS ORDERED: MORPHINE 4 MG/ML SYR ONE ×2 (23:01→23:43)
[2018-05-28] MEDS ORDERED: NA CHLORIDE 0.9% 1,000 ML ONE (23:01)
[2018-05-28] MEDS ORDERED: PANTOPRAZOLE 40 MG INJ ONE (23:01)
[2018-05-28] MEDS ORDERED: ONDANSETRON 4 MG/2 ML VIAL ONE (23:01)
[2018-05-28 23:19] LABS: Absolute Lymphocytes (CBC) 1.2 K/uL (0.7-4.9); Absolute Monocytes 0.3 K/uL (0.1-1.3); Absolute Neutrophil 4.7 K/uL (1.8-8.0); Basophils % 0.3 % (0-1.3); Eosinophils % 1.3 % (0-4.4); Hematocrit 37.3 % (39.6-49.0); Lymphocytes % 18.8 % (15.3-44.8); MCH 30.7 pg (27.0-35.0); MCV 83.5 fL (80-100); MPV 7.9 fL (7.6-11.3); Monocytes % 4.9 % (3.3-12.3); RBC Red Blood Cell Count 4.47 M/uL (4.33-5.43)
[2018-05-29 00:10] LABS: ALT/SGPT 19 U/L (12-78); AST/SGOT 13 U/L (15-37); Albumin 3.6 g/dL (3.4-5.0); Alkaline Phosphatase 77 U/L (45-117); BUN Blood Urea Nitrogen 11 mg/dL (7-18); Bicarbonate 24 mmol/L (21-32); Bilirubin Direct 0.2 mg/dL (0-0.2); Bilirubin Total 0.9 mg/dL (0.2-1.0); Lipase 1032 U/L (73-393); Potassium 4.4 mmol/L (3.5-5.1); Protein, Total 7.1 g/dL (6.4-8.2); Sodium Level 133 mmol/L (136-145)
[2018-05-29 00:12] LABS: Glucose Level 529 mg/dL (74-106)
[2018-05-29] MEDS ORDERED: INSULIN -REGULAR HUMAN 50 UNIT/0.5 ML ML ONE ×3 (00:42→05:15)
[2018-05-29] MEDS ORDERED: MORPHINE 4 MG/ML SYR ONE ×2 (00:57→02:23)
[2018-05-29 01:13] LABS: Urine Blood NEGATIVE (NEG); Urine Glucose 2+ (NEG); Urine Protein NEGATIVE (NEG); Urine Specific Gravity 1.015 (1.005-1.030)
[2018-05-29 01:56] LABS: Barbiturates NEGATIVE (NEGATIVE); Benzodiazepines NEGATIVE (NEGATIVE); Cocaine NEGATIVE (NEGATIVE); METHAMPHETAM NEGATIVE (NEGATIVE); Methadone NEGATIVE (NEGATIVE); Opiates NEGATIVE (NEGATIVE); Phencyclidine NEGATIVE (NEGATIVE); THC Cannibis POSITIVE (NEGATIVE)
[2018-05-29 01:56] LABS: HDL Cholesterol 14 mg/dL (40-60)
[2018-05-29] MEDS ORDERED: NA CHLORIDE 0.9% 1,000 ML ONE (02:36)
--- NOTE | 2018-05-29 02:40 | EDPHYS ---
Physician Documentation [facility] Name: Alex Auguste Age: 37 yrs Sex: Male : 1980 Arrival Date: 05/28/2018 Time: 21:54 Bed 30 Private MD: Gino Lira ED Physician Vernon Becerra HPI: 05/28 22:50 This 37 yrs old Male presents to ER via Ambulatory with complaints of cp Abdominal Pain. 22:50 The patient presents with abdominal pain in the upper abdomen. Onset: The cp symptoms/episode began/occurred 2 day(s) ago. The symptoms radiate to back. Associated signs and symptoms: Pertinent positives: nausea, Pertinent negatives: blood in stools, constipation, diarrhea, dysuria, fever, testicular pain, active vomiting. The symptoms are described as constant. The patient has experienced similar episodes in the past, multiple times, and the symptoms today are exactly the same, to when the patient was apparently diagnosed with pancreatitis. Historical: - Allergies: 22:06 No Known Allergies; la1 - Home Meds: 22:33 citalopram 20 mg tab 1 tab once daily [Active]; Creon Oral 1 cap 3 times per day mg2 [Active]; gemfibrozil 600 mg Oral tab 1 tab 2 times per day [Active]; Lantus 100 unit/mL Sub-Q soln 31 unit nightly [Active]; Lyrica 50 mg Oral cap 1 cap 3 times per day [Active]; Novolog 100 unit/mL Sub-Q soln sliding scale tid with meals [Active]; trazodone 100 mg Oral tab PRN sleep [Active]; - PMHx: 22:06 Diabetes - IDDM; High Triglycerides; Hyperlipidemia; Pancreatitis; la1 - Immunization history:: Adult Immunizations up to date. - Social history:: Smoking status: Patient/guardian denies using tobacco. - Ebola Screening: : No symptoms or risks identified at this time. ROS: 23:00 Constitutional: Negative for body aches, chills, fever, poor PO intake. cp 23:00 Eyes: Negative for injury, pain, redness, and discharge. cp 23:00 ENT: Negative for drainage from ear(s), ear pain, sore throat, difficulty swallowing, difficulty handling secretions. 23:00 Cardiovascular: Negative for chest pain, edema, palpitations. 23:00 Respiratory: Negative for cough, shortness of breath, wheezing. 23:00 Abdomen/GI: Positive for abdominal pain, Negative for constipation, dysphagia, black/tarry stool, rectal bleeding, active vomiting. 23:00 Back: Positive for radiated pain. 23:00 Skin: Negative for cellulitis, rash. 23:00 Neuro: Negative for altered mental status, headache, weakness. 23:00 All other systems are negative. Exam: 23:00 Head/Face: Normocephalic, atraumatic. cp 23:00 Constitutional: The patient appears in no acute distress, alert, awake, non-diaphoretic, non-toxic, well developed, well nourished, uncomfortable. 23:00 Eyes: Periorbital structures: appear normal, Conjunctiva: normal, no exudate, no injection, Sclera: no appreciated abnormality, Lids and lashes: appear normal, bilaterally. 23:00 ENT: External ear(s): are unremarkable, Ear canal(s): are normal, clear, TM's: dullness, bilaterally, Nose: is normal, Mouth: Lips: moist, Oral mucosa: pink and intact, moist, Posterior pharynx: is normal, airway is patent, no erythema, no exudate. 23:00 Neck: ROM/movement: is normal, is supple, without pain, no range of motions limitations, no nuchal rigidity. 23:00 Chest/axilla: Inspection: normal, Palpation: is normal, no crepitus, no tenderness. 23:00 Cardiovascular: Rate: tachycardic, Rhythm: regular, Edema: is not appreciated, JVD: is not appreciated. 23:00 Respiratory: the patient does not display signs of respiratory distress, Respirations: normal, no use of accessory muscles, no retractions, no splinting, no tachypnea, labored breathing, is not present, Breath sounds: are clear throughout, no decreased breath sounds, no stridor, no wheezing. 23:00 Abdomen/GI: Inspection: abdomen appears normal, Bowel sounds: active, all quadrants, Palpation: soft, in all quadrants, severe abdominal tenderness, in the right upper quadrant and left upper quadrant, rebound tenderness, is not appreciated, voluntary guarding, is elicited in the right upper quadrant and left upper quadrant. 23:00 Back: pain, that is moderate, of the mid back area, ROM is normal. 23:00 Skin: cellulitis, is not appreciated, no rash present. 23:00 Neuro: Orientation: to person, place \T\ time. Mentation: is normal, Cerebellar function: is grossly normal, Motor: moves all fours, strength is normal, Sensation: is normal. Vital Signs: 22:06 BP 131 / 86; Pulse 115; Resp 16; Temp 98.9; Pulse Ox 98% on R/A; Weight 74.84 kg; la1 Height 5 ft. 10 in. (177.80 cm); 23:40 BP 123 / 85; Pulse 91; Resp 18; Pulse Ox 96% on R/A; Pain 7/10; mg2 05/29 00:38 BP 118 / 85; Pulse 92; Resp 18; Pulse Ox 97% on R/A; Pain 8/10; mg2 02:33 BP 129 / 94; Pulse 93; Resp 18; Pulse Ox 98% on R/A; Pain 4/10; mg2 05/28 22:06 Body Mass Index 23.67 (74.84 kg, 177.80 cm) la1 MDM: 05/28 22:23 Patient medically screened. cp 23:00 Differential diagnosis: bowel obstruction, diverticulitis, gastritis, gastroesophageal cp reflux disease, pancreatitis, Peptic Ulcer Disease, Perf. Duodenal Ulcer, Perf. Gastric Ulcer, Ureterolithiasis, urinary tract infection. 05/29 00:45 Physician consultation: Adelfo Willams MD was contacted at 00:46, regarding admission, cp to the medical/surgical unit. 02:38 Data reviewed: vital signs, nurses notes, lab test result(s), radiologic studies, CT cp scan. 02:38 Counseling: I had a detailed discussion with the patient and/or guardian regarding: the cp historical points, exam findings, and any diagnostic results supporting the discharge/admit diagnosis, lab results, radiology results. Response to treatment: the patient's symptoms have mildly improved after treatment, and as a result, I will admit patient. 05/28 22:46 Order name: Basic Metabolic Panel; Complete Time: 00:19 cp 05/29 00:19 Interpretation: Normal except: NA 133; GLUC 529. cp 05/28 22:46 Order name: CBC with Diff; Complete Time: 00:19 cp 05/29 00:19 Interpretation: Normal except: HCT 37.3; MCHC 36.7; PLT 140; CATALINO% 74.7. cp 05/28 22:46 Order name: Creatinine for Radiology; Complete Time: 00:19 cp 05/28 22:46 Order name: Hepatic Function; Complete Time: 00:19 cp 05/28 22:46 Order name: Lipase; Complete Time: 00:19 cp 05/28 22:46 Order name: Magnesium; Complete Time: 00:19 cp 05/28 22:57 Order name: Urine Dipstick--Ancillary (enter results); Complete Time: 02:13 mw2 05/29 00:20 Order name: UDS cp 05/29 00:21 Order name: CT Abd/Pelvis - W/Contrast: no oral contrast cp 05/29 01:08 Order name: Urine Drug Screen; Complete Time: 02:13 EDMS 05/29 01:09 Order name: Lipid Profile EDMS 05/28 22:46 Order name: IV Saline Lock; Complete Time: 22:49 cp 05/28 22:46 Order name: Labs collected and sent; Complete Time: 22:49 cp Administered Medications: 05/28 23:04 Drug: NS 0.9% 1000 ml Route: IV; Rate: 1 bolus; Site: right antecubital; mg2 23:38 Follow up: Response: No adverse reaction; IV Status: Completed infusion mg2 23:04 Drug: Zofran 4 mg Route: IVP; Site: right antecubital; mg2 23:38 Follow up: Response: No adverse reaction; Nausea is decreased mg2 23:04 Drug: ProTONIX 40 mg Route: IVP; Site: right antecubital; mg2 23:38 Follow up: Response: No adverse reaction mg2 23:04 Drug: morphine 4 mg Route: IVP; Site: right antecubital; mg2 23:39 Follow up: Response: No adverse reaction; Pain is unchanged, physician notified mg2 23:39 Drug: morphine 4 mg Route: IVP; Site: right antecubital; mg2 05/29 00:37 Follow up: Response: No adverse reaction; Pain is unchanged, physician notified mg2 00:39 Drug: Insulin Regular Human 10 units {Co-Signature: kr2 (Gayle Perry RN).} Route: IVP; mg2 Site: right antecubital; 02:36 Follow up: Response: No adverse reaction; Blood sugar is lowered mg2 00:52 Drug: morphine 4 mg Route: IVP; Site: right antecubital; mg2 02:19 Follow up: Response: No adverse reaction; Pain is unchanged, physician notified mg2 02:19 Drug: morphine 4 mg Route: IVP; Site: right antecubital; mg2 02:52 Follow up: Response: No adverse reaction; Marked relief of symptoms mg2 02:33 Drug: NS 0.9% 1000 ml Route: IV; Rate: 1000 ml; Site: right antecubital; mg2 02:53 Follow up: Response: No adverse reaction; IV Status: Infusion continued upon admission mg2 02:35 Drug: Insulin Regular Human 5 units {Co-Signature: pete (Farzana Moyer RN).} Route: IVP; mg2 Site: right antecubital; 02:52 Follow up: Response: No adverse reaction; due for sugar check at 0330 mg2 Point of Care Testing: Blood Glucose: 02:30 Blood Glucose: 321 mg/dL; mg2 Ranges: Critical Glucose Levels:Adult <50 mg/dl or >400 mg/dl <40 mg/dl or >180 mg/dl Disposition: 04:13 Co-signature as Attending Physician, Vernon Becerra MD. leroy Disposition: 05/29/18 02:39 Hospitalization ordered by Aedlfo Willams for Inpatient Admission. Preliminary diagnosis is Acute pancreatitis. - Bed requested for Telemetry/MedSurg (Inpatient). - Status is Inpatient Admission. mg2 - Condition is Stable. - Problem is an acute exacerbation. - Symptoms have improved. UTI on Admission? No Signatures: Dispatcher [employer] EDDebra Cruz RN RN kl Lam, Pin, MD MD pk Yash Galvan RN RN la1 Page, Corey, PA PA cp Gardose, Michele, RN RN mg2 Gayle Perry RN kr2 Farzana Moyer RN, ea Corrections: (The following items were deleted from the chart) 02:39 02:39 Hospitalization Ordered by Adelfo Willams MD for Inpatient Admission. Preliminary kl diagnosis is Acute pancreatitis. Bed requested for Telemetry/MedSurg (Inpatient). Status is Inpatient Admission. Condition is Stable. Problem is an acute exacerbation. Symptoms have improved. UTI on Admission? No. cp 02:56 02:39 05/29/2018 02:39 Hospitalization Ordered by Adelfo Willams MD for Inpatient mg2 Admission. Preliminary diagnosis is Acute pancreatitis. Bed requested for Telemetry/MedSurg (Inpatient). Status is Inpatient Admission. Condition is Stable. Problem is an acute exacerbation. Symptoms have improved. UTI on Admission? No. kl
--- NOTE | 2018-05-29 02:40 | ER ---
Nurse's Notes [facility] Name: Alex Auguste Age: 37 yrs Sex: Male : 1980 Arrival Date: 05/28/2018 Time: 21:54 Bed 30 Private MD: Gino Lira Diagnosis: Acute pancreatitis Presentation: 05/28 22:05 Presenting complaint: Patient states: I have high triglycerides all the time and have la1 had pancreatitis like 30 times. I think I have it now. Transition of care: patient was not received from another setting of care. Onset of symptoms was May 28, 2018. Risk Assessment: Do you want to hurt yourself or someone else? Patient reports no desire to harm self or others. Initial Sepsis Screen: Does the patient meet any 2 criteria? No. Patient's initial sepsis screen is negative. Does the patient have a suspected source of infection? No. Patient's initial sepsis screen is negative. Care prior to arrival: None. 22:05 Method Of Arrival: Ambulatory la1 22:05 Acuity: [place] 3 la1 Historical: - Allergies: 22:06 No Known Allergies; la1 - Home Meds: 22:33 citalopram 20 mg tab 1 tab once daily [Active]; Creon Oral 1 cap 3 times per day mg2 [Active]; gemfibrozil 600 mg Oral tab 1 tab 2 times per day [Active]; Lantus 100 unit/mL Sub-Q soln 31 unit nightly [Active]; Lyrica 50 mg Oral cap 1 cap 3 times per day [Active]; Novolog 100 unit/mL Sub-Q soln sliding scale tid with meals [Active]; trazodone 100 mg Oral tab PRN sleep [Active]; - PMHx: 22:06 Diabetes - IDDM; High Triglycerides; Hyperlipidemia; Pancreatitis; la1 - Immunization history:: Adult Immunizations up to date. - Social history:: Smoking status: Patient/guardian denies using tobacco. - Ebola Screening: : No symptoms or risks identified at this time. Screenin:21 Abuse screen: Denies threats or abuse. Denies injuries from another. Nutritional mg2 screening: No deficits noted. Tuberculosis screening: No symptoms or risk factors identified. Fall Risk None identified. Assessment: 22:30 General: Appears uncomfortable, Behavior is restless. Pain: Complains of pain in mg2 abdomen Pain radiates to back Pain currently is 10 out of 10 on a pain scale. Quality of pain is described as aching, Pain began gradually, 1 day ago. Neuro: Level of Consciousness is awake, alert, obeys commands, Oriented to person, place, time, situation. Cardiovascular: Capillary refill < 3 seconds Patient's skin is warm and dry. Respiratory: Airway is patent Respiratory effort is even, unlabored, Respiratory pattern is regular, symmetrical. GI: Bowel sounds present X 4 quads. Abd is soft and non tender Reports upper abdominal pain, vomiting, since yesterday. : No signs and/or symptoms were reported regarding the genitourinary system. EENT: No signs and/or symptoms were reported regarding the EENT system. Derm: Skin is intact, is healthy with good turgor, Skin is pink, warm \T\ dry. normal. Musculoskeletal: No deficits noted. 23:41 Reassessment: Patient appears in no apparent distress at this time. Patient and/or mg2 family updated on plan of care and expected duration. Pain level reassessed. Patient is alert, oriented x 3, equal unlabored respirations, skin warm/dry/pink. Vital Signs: 22:06 BP 131 / 86; Pulse 115; Resp 16; Temp 98.9; Pulse Ox 98% on R/A; Weight 74.84 kg; la1 Height 5 ft. 10 in. (177.80 cm); 23:40 BP 123 / 85; Pulse 91; Resp 18; Pulse Ox 96% on R/A; Pain 7/10; mg2 05/29 00:38 BP 118 / 85; Pulse 92; Resp 18; Pulse Ox 97% on R/A; Pain 8/10; mg2 02:33 BP 129 / 94; Pulse 93; Resp 18; Pulse Ox 98% on R/A; Pain 4/10; mg2 05/28 22:06 Body Mass Index 23.67 (74.84 kg, 177.80 cm) la1 ED Course: 05/28 21:54 Patient arrived in ED. al2 21:55 Gino Lira MD is Private Physician. al2 22:05 Triage completed. la1 22:06 Arm band placed on left wrist. la1 22:20 Luís Raya, KECIA is Primary Nurse. mg2 22:23 Manpreet Pan PA is PHCP. cp 22:23 Vernon Becerra MD is Attending Physician. cp 22:30 No provider procedures requiring assistance completed. Inserted saline lock: 20 gauge mg2 in right antecubital area, using aseptic technique. Blood collected. 22:34 Patient has correct armband on for positive identification. Pulse ox on. NIBP on. Door mg2 closed. Warm blanket given. 22:55 Urine collected: clean catch specimen, clear, tata colored, Amount Voided: 120mL. jp3 05/29 00:14 Notified Nurse Practitioner and/or Physician Critical Systems Technician of a critical lab result(s), kl Blood glucose 529. 01:[address] via wheelchair. kw1 01:21 CT Abd/Pelvis - W/Contrast: no oral contrast In Process Unspecified. EDMS 01:24 CT completed. Patient tolerated procedure well. Patient moved back from CT. kw1 02:38 Adelfo Willams MD is Hospitalizing Provider. cp 02:53 Patient admitted, IV remains in place. mg2 Administered Medications: 05/28 23:04 Drug: NS 0.9% 1000 ml Route: IV; Rate: 1 bolus; Site: right antecubital; mg2 23:38 Follow up: Response: No adverse reaction; IV Status: Completed infusion mg2 23:04 Drug: Zofran 4 mg Route: IVP; Site: right antecubital; mg2 23:38 Follow up: Response: No adverse reaction; Nausea is decreased mg2 23:04 Drug: ProTONIX 40 mg Route: IVP; Site: right antecubital; mg2 23:38 Follow up: Response: No adverse reaction mg2 23:04 Drug: morphine 4 mg Route: IVP; Site: right antecubital; mg2 23:39 Follow up: Response: No adverse reaction; Pain is unchanged, physician notified mg2 23:39 Drug: morphine 4 mg Route: IVP; Site: right antecubital; mg2 05/29 00:37 Follow up: Response: No adverse reaction; Pain is unchanged, physician notified mg2 00:39 Drug: Insulin Regular Human 10 units {Co-Signature: kr2 (Gayle Perry RN).} Route: IVP; mg2 Site: right antecubital; 02:36 Follow up: Response: No adverse reaction; Blood sugar is lowered mg2 00:52 Drug: morphine 4 mg Route: IVP; Site: right antecubital; mg2 02:19 Follow up: Response: No adverse reaction; Pain is unchanged, physician notified mg2 02:19 Drug: morphine 4 mg Route: IVP; Site: right antecubital; mg2 02:52 Follow up: Response: No adverse reaction; Marked relief of symptoms mg2 02:33 Drug: NS 0.9% 1000 ml Route: IV; Rate: 1000 ml; Site: right antecubital; mg2 02:53 Follow up: Response: No adverse reaction; IV Status: Infusion continued upon admission mg2 02:35 Drug: Insulin Regular Human 5 units {Co-Signature: pete (Farzana Moyer RN).} Route: IVP; mg2 Site: right antecubital; 02:52 Follow up: Response: No adverse reaction; due for sugar check at 0330 mg2 Point of Care Testing: Blood Glucose: 02:30 Blood Glucose: 321 mg/dL; mg2 Ranges: Intake: Outcome: 02:39 Decision to Hospitalize by Provider. cp 02:53 Admitted to Med/surg accompanied by tech, family with patient, via wheelchair, room mg2 214, with chart, Report called to KECIA Hooks 02:53 Condition: stable 02:53 Instructed on the need for admit, Demonstrated understanding of instructions. 02:56 Patient left the ED. mg2 Signatures: Dispatcher [employer] EDMS Debra Menard RN RN kl Attema, Lee, RN RN la1 Manpreet Pan PA PA cp Debra Barroso kw1 [place] Bella Michele, RN RN mg2 [place] jp3 Gayle roberts2 Farzana Moyer RN, ea
[2018-05-29] MEDS ORDERED: NA CHLORIDE 0.9% 1,000 ML IV SCH (03:11)
[2018-05-29] MEDS ORDERED: ACETAMINOPHEN 500 MG TAB PO PRN (03:11)
[2018-05-29 03:42] LABS: LDL Cholesterol, Calculated ND (<130)
[2018-05-29 03:57] LABS: LDL, Direct 73 mg/dL (100-129)
--- NOTE | 2018-05-29 04:37 | P.HP ---
Certification for Inpatient Patient admitted to: Inpatient With expected LOS: >2 Midnights Practitioner: I am a practitioner with admitting privileges, knowledge of patient current condition, hospital course, and medical plan of care. Services: Services provided to patient in accordance with Admission requirements found in Title 42 Section 412.3 of the Code of Federal Regulations Patient History Date of Service: 05/29/18 Reason for admission: Pancreatitis History of Present Illness: Mr Auguste 87-year-old male with history of chronic pancreatitis secondary to hypertriglyceridemia currently on treatment with gemfibrozil, diabetes mellitus insulin-dependent, came to the ER complaining of abdominal pain associated with nausea vomiting since yesterday. Pain is localized in epigastric and radiating to left upper quadrant and back, 10/10 of intensity, similar presentation and previous pancreatitis. No history of fever or chills. Lab work remarkable for elevated lipase level 1032, and elevated triglyceride 3252. Allergies No Known Drug Allergies Allergy (Verified 05/29/18 03:33) NONE Home medications list reviewed: Yes Home Medications: Gemfibrozil [Lopid*] 1 tab PO BID 05/29/18 Insulin Aspart [Novolog] See Protocol SQ TID 05/29/18 Insulin Glargine,Hum.rec.anlog [Lantus] 36 units SQ BEDTIME 05/29/18 Pantoprazole [Protonix Tab*] 1 tab PO BEDTIME 05/29/18 Pregabalin [Lyrica*] 1 cap PO TID 05/29/18 Sertraline [Zoloft*] 100 mg PO DAILY 05/29/18 Trazodone HCl 1 tab PO BEDTIME PRN 05/29/18 - Past Medical/Surgical History Diabetic: Yes -: pancreatitis due to high triglycerides x4 yrs -: diabetic x5 yrs -: pancreatitis -: cholecystectomy -: fx wrist -: knee surg - Family History Mother -: Heart disease Notes: Recent MO - Social History Smoking Status: Never smoker Alcohol use: No CD- Drugs: No Caffeine use: No Place of Residence: Home Review of Systems 10-point ROS is otherwise unremarkable Physical Examination - Vital Signs Temperature: 98.9 F Blood Pressure: 129/94 Pulse: 93 Respirations: 18 - Physical Exam General: Alert, In no apparent distress HEENT: Atraumatic, PERRLA, Mucous membr. moist/pink, EOMI, Sclerae nonicteric Neck: Supple, 2+ carotid pulse no bruit, No LAD, Without JVD or thyroid abnormality Respiratory: Clear to auscultation bilaterally, Normal air movement Cardiovascular: Regular rate/rhythm, Normal S1 S2 Gastrointestinal: Normal bowel sounds, Tenderness (Epigastric area and left upper quadrant) Musculoskeletal: No tenderness Integumentary: No rashes Neurological: Normal speech, Normal strength at 5/5 x4 extr, Normal tone, Normal affect Lymphatics: No axilla or inguinal lymphadenopathy - Studies Laboratory Data (last 24 hrs) 05/29/18 01:08: Triglycerides 3252 H, Cholesterol 275 H, LDL Cholesterol Direct 73 L, HDL Cholesterol 14 L, Cholesterol/HDL Ratio 19.64 05/28/18 22:50: Creatinine 0.90 05/28/18 22:50: WBC 6.3, Hgb 13.7, Hct 37.3 L, Plt Count 140 L 05/28/18 22:50: Sodium 133 L, Potassium 4.4, BUN 11, Creatinine 0.90, Glucose 529 H*, Magnesium 2.0, Total Bilirubin 0.9, AST 13 L, ALT 19, Alkaline Phosphatase 77, Lipase 1032 H Assessment and Plan - Problems (Diagnosis) (1) Hypertriglyceridemia Onset Date: 03/16/17 Current Visit: No Status: Acute (2) Pancreatitis Onset Date: 03/16/17 Current Visit: No Status: Acute Qualifiers: Chronicity: acute Pancreatitis type: other Acute pancreatitis complication: no infection or necrosis Qualified Code(s): K85.80 - Other acute pancreatitis without necrosis or infection (3) Diabetes mellitus Onset Date: 03/16/17 Current Visit: No Status: Chronic Qualifiers: Diabetes mellitus type: type 2 Diabetes mellitus chcf insulin use: with car supplier use Diabetes mellitus complication status: without complication Qualified Code(s): E11.9 - Type 2 diabetes mellitus without complications; Z79.4 - longterm (current) use of insulin; Z79.4 - bean weigher ( current) use of insulin; Z79.4 - longterm (current) use of insulin; Z79.4 - longterm (current) use of insulin - Plan The patient will be admitted to the hospital due to acute on chronic pancreatitis secondary to hypertriglyceridemia. Will start insulin drip, will admit the patient in ICU for close monitoring. CT abdomen and pelvis was done, awaiting radiology formal report. Will keep the patient NPO, start IV fluids. - Advance Directives Does patient have a Living Will: No Does patient have a Durable POA for Healthcare: No - Code Status/Comfort Care Code Status Assessed: Yes Code Status: Full Code Critical Care: Yes (30 minutes )
[2018-05-29] MEDS ORDERED: GLUCAGON 1 MG/VIAL IM PRN (04:40)
[2018-05-29] MEDS ORDERED: INSULIN -REGULAR HUMAN 100 UNIT in NA CHLORIDE 0.9% 100 ML IV SCH (04:40)
[2018-05-29] MEDS ORDERED: D50W 25 GM/50 ML SYRINGE IV PRN (04:40)
[2018-05-29] MEDS ORDERED: NA CHLORIDE 0.9% 100 ML ONE (05:16)
[2018-05-29] MEDS: MORPHINE 2 MG/ML SYR IV PRN ×2 (05:18→08:36)
[2018-05-29] MEDS: KETOROLAC 30 MG/ML INJ IV PRN ×2 (06:17→12:19)
[2018-05-29 06:59] LABS: Urine Appearance CLEAR; Urine Bilirubin NEGATIVE (NEG); Urine Blood NEGATIVE (NEG); Urine Color YELLOW; Urine Glucose 3+ (NEG); Urine Protein NEGATIVE (NEG); Urine Specific Gravity >=1.030 (1.005-1.030); Urine pH 5.5 (5.0-7.0)
[2018-05-29 07:08] LABS: Urine Microscopic Reflex NO UMIC
[2018-05-29] MEDS ORDERED: INFLUENZA VACCINE (for 3y+) 0.5 ML DOSE IMVAC ONE (08:00)
[2018-05-29] MEDS: ENOXAPARIN 40 MG/0.4 ML SQ SCH (08:44)
[2018-05-29] MEDS: D5W 1,000 ML IV SCH ×3 (09:20→23:20)
[2018-05-29 09:37] LABS: Absolute Monocytes 0.3 K/uL (0.1-1.3); Absolute Neutrophil 3.2 K/uL (1.8-8.0); Basophils % 0.5 % (0-1.3); Eosinophils % 1.5 % (0-4.4); Hematocrit 35.7 % (39.6-49.0); Lymphocytes % 21.9 % (15.3-44.8); MCH 29.9 pg (27.0-35.0); MCV 82.8 fL (80-100); MPV 7.5 fL (7.6-11.3); Monocytes % 6.9 % (3.3-12.3); RBC Red Blood Cell Count 4.32 M/uL (4.33-5.43)
[2018-05-29 10:08] LABS: ALT/SGPT 52 U/L (12-78); AST/SGOT 88 U/L (15-37); Albumin 3.3 g/dL (3.4-5.0); Alkaline Phosphatase 89 U/L (45-117); BUN Blood Urea Nitrogen 9 mg/dL (7-18); Bicarbonate 27 mmol/L (21-32); Glucose Level 98 mg/dL (74-106); Potassium 3.1 mmol/L (3.5-5.1); Protein, Total 6.6 g/dL (6.4-8.2); Sodium Level 140 mmol/L (136-145)
[2018-05-29] MEDS: KCL 20 MEQ/100 mL IVPB 20 MEQ/100 ML BAG IV SCH ×2 (10:30→13:58)
--- NOTE | 2018-05-29 11:12 | RAD REPORT ---
EXAM DESCRIPTION: CTAbdomen Pelvis W Contrast - 05/29/2018 5:59 am CLINICAL HISTORY: Abdominal pain. epigastric pain, history of pancreatitis COMPARISON: Abdomen Pelvis W Contrast dated 02/28/2018; Abdomen Pelvis W Contrast dated 02/23/2018 ; Abdomen Pelvis W Contrast dated 08/23/2017 TECHNIQUE: Biphasic CT imaging of the abdomen and pelvis was performed with 100 ml non-ionic IV cont rast. All CT scans are performed using dose optimization technique as appropriate and may include automated exposure control or mA/KV adjustment according to patient size. FINDINGS: The lung bases are clear. The liver, spleen, adrenal glands and kidneys are within normal limits. Peripancreatic fat stranding is seen likely indicating acute pancreatitis. Pancreatic tail pseudocyst measures 4.2 cm, slightly di minished since prior study which time measured 4.9 cm. Small low-density cyst within the tail the chang creas is present measuring 8 mm. The splenic vein appears chronically thrombosed with multiple venous collaterals seen in the left upper quadrant. No bowel obstruction, free air, free fluid or abscess. The appendix is normal. A few mildly promine nt lymph nodes are seen in upper abdomen. No suspicious bony findings. IMPRESSION: Acute pancreatitis with mild decrease in size of the pancreatic tail pseudocyst.
[2018-05-29 11:17] LABS: LDL, Direct 44 mg/dL (100-129)
[2018-05-29] MEDS: ONDANSETRON 4 MG/2 ML VIAL IV PRN ×2 (13:01→20:32)
[2018-05-29] MEDS: FENTANYL CITR 100 MCG/2 ML IV PRN ×3 (13:02→20:32)
[2018-05-29] MEDS: PREGABALIN 50 MG CAP PO SCH ×2 (13:57→20:32)
[2018-05-29] MEDS: SERTRALINE HCL 100 MG TAB PO SCH (13:58)
[2018-05-29] MEDS ORDERED: DEMECLOCYCLINE HCL 150 MG TABLET PO SCH (14:00)
[2018-05-29] MEDS: GEMFIBROZIL 600 MG TAB PO SCH (20:32)
[2018-05-29] MEDS: PANTOPRAZOLE 40MG TABLET PO SCH (20:32)
[2018-05-30] MEDS: FENTANYL CITR 100 MCG/2 ML IV PRN ×6 (00:17→20:08)
[2018-05-30 05:53] LABS: Absolute Lymphocytes (CBC) 1.4 K/uL (0.7-4.9); Absolute Monocytes 0.2 K/uL (0.1-1.3); Absolute Neutrophil 2.8 K/uL (1.8-8.0); Basophils % 0.7 % (0-1.3); Lymphocytes % 30.2 % (15.3-44.8); MCH 29.5 pg (27.0-35.0); MCV 82.7 fL (80-100); MPV 7.7 fL (7.6-11.3); Monocytes % 5.5 % (3.3-12.3); RBC Red Blood Cell Count 3.99 M/uL (4.33-5.43)
[2018-05-30 06:00] LABS: BUN Blood Urea Nitrogen 10 mg/dL (7-18); Bicarbonate 27 mmol/L (21-32); Glucose Level 156 mg/dL (74-106); Potassium 3.6 mmol/L (3.5-5.1); Sodium Level 138 mmol/L (136-145)
[2018-05-30 06:24] LABS: HDL Cholesterol 25 mg/dL (40-60); LDL Cholesterol, Calculated ND (<130)
[2018-05-30 06:35] LABS: LDL, Direct 56 mg/dL (100-129)
[2018-05-30] MEDS ORDERED: KCL 20 MEQ/100 mL IVPB 20 MEQ/100 ML BAG IV SCH (07:00)
[2018-05-30] MEDS: ENOXAPARIN 40 MG/0.4 ML SQ SCH (08:00)
[2018-05-30] MEDS: SERTRALINE HCL 100 MG TAB PO SCH (08:00)
[2018-05-30] MEDS: GEMFIBROZIL 600 MG TAB PO SCH ×2 (08:00→20:09)
[2018-05-30] MEDS: PREGABALIN 50 MG CAP PO SCH ×3 (08:00→20:09)
[2018-05-30] MEDS: NA CHLORIDE 0.9% 1,000 ML IV SCH (11:00)
[2018-05-30] MEDS: ONDANSETRON 4 MG/2 ML VIAL IV PRN ×2 (11:09→20:16)
--- NOTE | 2018-05-30 14:13 | P.PN ---
Subjective Date of Service: 05/30/18 Chief Complaint: Pancreatitis Patient seen and examined at bedside with RN. Chart reviewed. Case discussed with patient at that doing well overall. No complaints to offer at this time Review of Systems 10-point ROS is otherwise unremarkable Physical Examination - Vital Signs Temperature: 98.2 F Blood Pressure: 124/85 Pulse: 76 Respirations: 15 Pulse Ox (%): 99 - Physical Exam General: Alert, In no apparent distress HEENT: Atraumatic, PERRLA, EOMI Neck: Supple, JVD not distended Respiratory: Clear to auscultation bilaterally, Normal air movement Cardiovascular: Regular rate/rhythm, Normal S1 S2 Gastrointestinal: Normal bowel sounds, No tenderness Musculoskeletal: No tenderness Integumentary: No rashes Neurological: Normal speech, Normal tone, Normal affect Lymphatics: No axilla or inguinal lymphadenopathy - Studies Medications List Reviewed: Yes Assessment And Plan - Current Problems (Diagnosis) (1) Acute pancreatitis Onset Date: 03/16/17 Current Visit: No Status: Acute Plan: Acute pancreatitis on chronic pancreatitis most likely secondary to hypertriglyceridemia. -NPO, IV fluids with Pain mgmt for pancreatitis -Insulin ggt at 1ml.hr till TG < 500 -TG this AM 700 Qualifiers: Pancreatitis type: idiopathic Acute pancreatitis complication: unspecified Qualified Code(s): K85.00 - Idiopathic acute pancreatitis without necrosis or infection (2) Hypertriglyceridemia Onset Date: 03/16/17 Current Visit: No Status: Acute Plan: See # 1 (3) Tetrahydrocannabinol (THC) use disorder, mild, abuse Current Visit: No Status: Chronic (4) Diabetes mellitus Onset Date: 03/16/17 Current Visit: No Status: Chronic Qualifiers: Diabetes mellitus type: type 2 Diabetes mellitus prison insulin use: with exterminator termite use Diabetes mellitus complication status: without complication Qualified Code(s): E11.9 - Type 2 diabetes mellitus without complications; Z79.4 - meterman (current) use of insulin; Z79.4 - FPC ( current) use of insulin; Z79.4 - FPC (current) use of insulin; Z79.4 - meterman (current) use of insulin (5) GERD (gastroesophageal reflux disease) Current Visit: No Status: Chronic Qualifiers: Esophagitis presence: esophagitis presence not specified Qualified Code(s) : K21.9 - Gastro-esophageal reflux disease without esophagitis Discharge Plan: Home Plan to discharge in: 48 Hours - Code Status/Comfort Care Code Status Assessed: Yes Critical Care: Yes
[2018-05-30] MEDS: PANTOPRAZOLE 40MG TABLET PO SCH (20:09)
[2018-05-30] MEDS ORDERED: TRAZODONE 50 MG TABLET PO PRN (22:36)
[2018-05-30] MEDS ORDERED: FENTANYL CITR 100 MCG/2 ML IV ONE (22:37)
[2018-05-31] MEDS: NA CHLORIDE 0.9% 1,000 ML IV SCH ×2 (00:29→13:18)
[2018-05-31] MEDS: FENTANYL CITR 100 MCG/2 ML IV PRN ×5 (03:16→19:38)
[2018-05-31 06:13] LABS: Absolute Lymphocytes (CBC) 1.5 K/uL (0.7-4.9); Absolute Monocytes 0.2 K/uL (0.1-1.3); Absolute Neutrophil 1.7 K/uL (1.8-8.0); Eosinophils % 2.8 % (0-4.4); MCH 29.6 pg (27.0-35.0); MCV 83.2 fL (80-100); MPV 7.9 fL (7.6-11.3); Monocytes % 5.6 % (3.3-12.3)
[2018-05-31 06:24] LABS: ALT/SGPT 46 U/L (12-78); AST/SGOT 23 U/L (15-37); Alkaline Phosphatase 75 U/L (45-117); BUN Blood Urea Nitrogen 8 mg/dL (7-18); Bicarbonate 26 mmol/L (21-32); Bilirubin Total 0.9 mg/dL (0.2-1.0); Glucose Level 165 mg/dL (74-106); Potassium 3.5 mmol/L (3.5-5.1); Protein, Total 6.1 g/dL (6.4-8.2); Sodium Level 139 mmol/L (136-145)
[2018-05-31 06:42] LABS: LDL, Direct 76 mg/dL (100-129)
[2018-05-31 07:43] LABS: Magnesium 1.8 mg/dL (1.8-2.4)
[2018-05-31 07:52] VITALS: O2SAT 98
[2018-05-31] MEDS ORDERED: KCL 20 MEQ/100 mL IVPB 20 MEQ/100 ML BAG IV SCH (08:00)
[2018-05-31] MEDS: ENOXAPARIN 40 MG/0.4 ML SQ SCH (08:40)
[2018-05-31] MEDS: SERTRALINE HCL 100 MG TAB PO SCH (08:40)
[2018-05-31] MEDS: GEMFIBROZIL 600 MG TAB PO SCH ×2 (08:40→21:24)
[2018-05-31] MEDS: PREGABALIN 50 MG CAP PO SCH ×3 (08:40→21:24)
[2018-05-31] MEDS ORDERED: MAGNESIUM SULFATE 1 gm IVPB 1 GM/100 ML BAG IV ONE (09:00)
[2018-05-31 11:06] VITALS: BMI 25.4
--- NOTE | 2018-05-31 15:39 | P.PN ---
Subjective Date of Service: 05/31/18 Chief Complaint: Pancreatitis Patient seen and examined at bedside with RN. Chart reviewed. Case discussed with patient at that doing well overall. No complaints to offer at this time Review of Systems 10-point ROS is otherwise unremarkable Physical Examination - Vital Signs Temperature: 97.8 F Blood Pressure: 116/82 Pulse: 80 Respirations: 14 Pulse Ox (%): 97 - Physical Exam General: Alert, In no apparent distress HEENT: Atraumatic, PERRLA, EOMI Neck: Supple, JVD not distended Respiratory: Clear to auscultation bilaterally, Normal air movement Cardiovascular: Regular rate/rhythm, Normal S1 S2 Gastrointestinal: Normal bowel sounds, No tenderness Musculoskeletal: No tenderness Integumentary: No rashes Neurological: Normal speech, Normal tone, Normal affect Lymphatics: No axilla or inguinal lymphadenopathy - Studies Medications List Reviewed: Yes Assessment And Plan - Current Problems (Diagnosis) (1) Acute pancreatitis Onset Date: 03/16/17 Current Visit: No Status: Acute Plan: Acute pancreatitis on chronic pancreatitis most likely secondary to hypertriglyceridemia. -NPO, IV fluids with Pain mgmt for pancreatitis -Insulin ggt at 1ml.hr till TG < 500 -TG this AM 700 Qualifiers: Pancreatitis type: idiopathic Acute pancreatitis complication: unspecified Qualified Code(s): K85.00 - Idiopathic acute pancreatitis without necrosis or infection (2) Hypertriglyceridemia Onset Date: 03/16/17 Current Visit: No Status: Acute Plan: See # 1 (3) Tetrahydrocannabinol (THC) use disorder, mild, abuse Current Visit: No Status: Chronic (4) Diabetes mellitus Onset Date: 03/16/17 Current Visit: No Status: Chronic Qualifiers: Diabetes mellitus type: type 2 Diabetes mellitus usp insulin use: with terminal manager use Diabetes mellitus complication status: without complication Qualified Code(s): E11.9 - Type 2 diabetes mellitus without complications; Z79.4 - termite control technician (current) use of insulin; Z79.4 - MCC ( current) use of insulin; Z79.4 - MCC (current) use of insulin; Z79.4 - termite control technician (current) use of insulin (5) GERD (gastroesophageal reflux disease) Current Visit: No Status: Chronic Qualifiers: Esophagitis presence: esophagitis presence not specified Qualified Code(s) : K21.9 - Gastro-esophageal reflux disease without esophagitis - Plan Pending clinical improvement at this time. Awaiting triglycerides to go below 500 to stop insulin drip and transfer the patient out of the ICU for further care. Discharge Plan: Home Plan to discharge in: 72 Hours - Code Status/Comfort Care Code Status Assessed: Yes Critical Care: No
[2018-05-31] MEDS: TRAMADOL HCL 50 MG TAB PO PRN (19:38)
[2018-05-31] MEDS: PANTOPRAZOLE 40MG TABLET PO SCH (21:24)
[2018-06-01] MEDS: NA CHLORIDE 0.9% 1,000 ML IV SCH ×2 (01:03→15:57)
[2018-06-01] MEDS: TRAMADOL HCL 50 MG TAB PO PRN ×4 (01:07→19:31)
[2018-06-01 05:13] LABS: BUN Blood Urea Nitrogen 8 mg/dL (7-18); Bicarbonate 30 mmol/L (21-32); Glucose Level 146 mg/dL (74-106); Potassium 3.9 mmol/L (3.5-5.1); Sodium Level 141 mmol/L (136-145)
[2018-06-01 05:24] LABS: LDL, Direct 79 mg/dL (100-129)
[2018-06-01] MEDS ORDERED: POTASSIUM CL SA 10 MEQ TAB PO ONE (09:00)
[2018-06-01] MEDS: ENOXAPARIN 40 MG/0.4 ML SQ SCH (09:25)
[2018-06-01] MEDS: GEMFIBROZIL 600 MG TAB PO SCH ×2 (09:25→19:34)
[2018-06-01] MEDS: PREGABALIN 50 MG CAP PO SCH ×3 (09:25→19:31)
[2018-06-01] MEDS: SERTRALINE HCL 100 MG TAB PO SCH (09:25)
[2018-06-01] MEDS ORDERED: D50W 25 GM/50 ML SYRINGE IV PRN (12:31)
[2018-06-01] MEDS ORDERED: GLUCAGON 1 MG/VIAL IM PRN (12:31)
--- NOTE | 2018-06-01 14:16 | P.PN ---
Subjective Date of Service: 06/01/18 Chief Complaint: Pancreatitis Patient seen and examined at bedside with RN. Chart reviewed. Case discussed with patient at that doing well overall. No complaints to offer at this time. Transfer to the floor this time. Will stop the insulin drip as well. Review of Systems 10-point ROS is otherwise unremarkable Physical Examination - Vital Signs Temperature: 97 F Blood Pressure: 128/95 Pulse: 81 Respirations: 14 Pulse Ox (%): 100 - Physical Exam General: Alert, In no apparent distress HEENT: Atraumatic, PERRLA, EOMI Neck: Supple, JVD not distended Respiratory: Clear to auscultation bilaterally, Normal air movement Cardiovascular: Regular rate/rhythm, Normal S1 S2 Gastrointestinal: Normal bowel sounds, No tenderness Musculoskeletal: No tenderness Integumentary: No rashes Neurological: Normal speech, Normal tone, Normal affect Lymphatics: No axilla or inguinal lymphadenopathy - Studies Medications List Reviewed: Yes Assessment And Plan - Current Problems (Diagnosis) (1) Acute pancreatitis Onset Date: 03/16/17 Current Visit: No Status: Acute Plan: Acute pancreatitis on chronic pancreatitis most likely secondary to hypertriglyceridemia. -NPO, IV fluids with Pain mgmt for pancreatitis -Insulin drip at this time. Start on mild sliding scale -TG this AM at 647 Qualifiers: Pancreatitis type: idiopathic Acute pancreatitis complication: unspecified Qualified Code(s): K85.00 - Idiopathic acute pancreatitis without necrosis or infection (2) Hypertriglyceridemia Onset Date: 03/16/17 Current Visit: No Status: Acute Plan: See # 1 (3) Tetrahydrocannabinol (THC) use disorder, mild, abuse Current Visit: No Status: Chronic (4) Diabetes mellitus Onset Date: 03/16/17 Current Visit: No Status: Chronic Qualifiers: Diabetes mellitus type: type 2 Diabetes mellitus intermediate insulin use: with tank terminal gauger use Diabetes mellitus complication status: without complication Qualified Code(s): E11.9 - Type 2 diabetes mellitus without complications; Z79.4 - termite inspector (current) use of insulin; Z79.4 - termite inspector ( current) use of insulin; Z79.4 - termite inspector (current) use of insulin; Z79.4 - senior care (current) use of insulin (5) GERD (gastroesophageal reflux disease) Current Visit: No Status: Chronic Qualifiers: Esophagitis presence: esophagitis presence not specified Qualified Code(s) : K21.9 - Gastro-esophageal reflux disease without esophagitis - Plan Pending clinical improvement at this time. Patient transferred out to the regular floor today. Insulin drip was stopped. Triglyceride at 6:45 a.m.. Will monitor patient on mild sliding scale for next 24-48 hr. Anticipate discharge after that. Patient would need to be on O2 and I triglyceride medication. We discussed in detail with the primary care provider. Discussed in detail with the patient at bedside. Patient in agreement of proposed treatment. Discharge Plan: Home Plan to discharge in: 48 Hours - Code Status/Comfort Care Code Status Assessed: Yes Critical Care: Yes
[2018-06-01] MEDS: INSULIN -REGULAR HUMAN 50 UNIT/0.5 ML ML SQ SCH ×2 (16:30→21:00)
[2018-06-01] MEDS: PANTOPRAZOLE 40MG TABLET PO SCH (19:32)
[2018-06-02] MEDS: TRAMADOL HCL 50 MG TAB PO PRN ×3 (01:46→13:28)
[2018-06-02 05:47] LABS: BUN Blood Urea Nitrogen 8 mg/dL (7-18); Bicarbonate 28 mmol/L (21-32); Glucose Level 231 mg/dL (74-106); Sodium Level 141 mmol/L (136-145)
[2018-06-02] MEDS: NA CHLORIDE 0.9% 1,000 ML IV SCH (06:26)
[2018-06-02] MEDS: INSULIN -REGULAR HUMAN 50 UNIT/0.5 ML ML SQ SCH ×2 (07:30→11:19)
[2018-06-02] MEDS: SERTRALINE HCL 100 MG TAB PO SCH (10:03)
[2018-06-02] MEDS: PREGABALIN 50 MG CAP PO SCH (10:03)
[2018-06-02] MEDS: ENOXAPARIN 40 MG/0.4 ML SQ SCH (10:03)
[2018-06-02] MEDS: GEMFIBROZIL 600 MG TAB PO SCH (10:07)
[2018-06-02] MEDS ORDERED: INFLUENZA VACCINE (for 3y+) 0.5 ML DOSE IMVAC ONE (12:00)
[2018-06-02 12:20] VITALS: BP 120/82; TEMP 97.2
--- NOTE | 2018-06-02 13:25 | P.DS ---
Admission Date: 05/29/18 Discharge Date: 06/02/18 Disposition: ROUTINE DISCHARGE Discharge Condition: GOOD Reason for Admission: Pancreatitis - Problems (1) Acute pancreatitis Onset Date: 03/16/17 Current Visit: No Status: Acute Qualifiers: Pancreatitis type: idiopathic Acute pancreatitis complication: unspecified Qualified Code(s): K85.00 - Idiopathic acute pancreatitis without necrosis or infection (2) Hypertriglyceridemia Onset Date: 03/16/17 Current Visit: No Status: Acute (3) Tetrahydrocannabinol (THC) use disorder, mild, abuse Current Visit: No Status: Chronic (4) Diabetes mellitus Onset Date: 03/16/17 Current Visit: No Status: Chronic Qualifiers: Diabetes mellitus type: type 2 Diabetes mellitus shelter insulin use: with deputy coroner use Diabetes mellitus complication status: without complication Qualified Code(s): E11.9 - Type 2 diabetes mellitus without complications; Z79.4 - dsp engineer (current) use of insulin; Z79.4 - shelter ( current) use of insulin; Z79.4 - shelter (current) use of insulin; Z79.4 - shelter (current) use of insulin (5) GERD (gastroesophageal reflux disease) Current Visit: No Status: Chronic Qualifiers: Esophagitis presence: esophagitis presence not specified Qualified Code(s) : K21.9 - Gastro-esophageal reflux disease without esophagitis Brief History of Present Illness: Mr Auguste 87-year-old male with history of chronic pancreatitis secondary to hypertriglyceridemia currently on treatment with gemfibrozil, diabetes mellitus insulin-dependent, came to the ER complaining of abdominal pain associated with nausea vomiting since yesterday. Pain is localized in epigastric and radiating to left upper quadrant and back, 10/10 of intensity, similar presentation and previous pancreatitis. No history of fever or chills. Lab work remarkable for elevated lipase level 1032, and elevated triglyceride 3252. Hospital Course: Overall during the hospital stay patient remained stable Patient was initially admitted to the hospital for acute pancreatitis on chronic pancreatitis most likely secondary to hypertriglyceridemia due to genetic disorder. Patient was admitted to the ICU was started on insulin drip in the ICU along with gemfibrozil. And IV fluids. Patient had marked resolution of his abdominal pain and resolution of his acute pancreatitis. His triglycerides did come down overall day 3. Patient then was transferred to the regular floor. Patient's diet was advanced to a clear liquid diet and advanced to a tolerable diet after that. Patient had no abdominal pain and his triglycerides were around 640 and thus was discharged home under stable condition. Patient was asked to continue following up with his primary care provider in about 1-2 days post discharge and discuss addition of a another febrile triglyceridemia medication if needed. Patient demonstrated understanding and thus was discharged home under stable condition. Vital Signs/Physical Exam: Temp Pulse Resp BP Pulse Ox 97.2 F 72 18 120/82 100 06/02/18 12:00 06/02/18 12:00 06/02/18 12:00 06/02/18 12:00 06/02/18 12:00 General: Alert, In no apparent distress HEENT: Atraumatic, PERRLA, EOMI Neck: Supple, JVD not distended Respiratory: Clear to auscultation bilaterally, Normal air movement Cardiovascular: Regular rate/rhythm, Normal S1 S2 Gastrointestinal: Normal bowel sounds, No tenderness Musculoskeletal: No tenderness Integumentary: No rashes Neurological: Normal speech, Normal tone, Normal affect Lymphatics: No axilla or inguinal lymphadenopathy Laboratory Data at Discharge: WBC 3.6 K/uL (4.3-10.9) L D 05/31/18 05:40 Hgb 12.4 g/dL (13.6-17.9) L 05/31/18 05:40 Hct 35.0 % (39.6-49.0) L 05/31/18 05:40 Plt Count 132 K/uL (152-406) L 05/31/18 05:40 Sodium 141 mmol/L (136-145) 06/02/18 04:45 Potassium 4.0 mmol/L (3.5-5.1) 06/02/18 04:45 BUN 8 mg/dL (7-18) 06/02/18 04:45 Creatinine 0.80 mg/dL (0.55-1.3) 06/02/18 04:45 Glucose 231 mg/dL (74-106) H 06/02/18 04:45 Magnesium 2.0 mg/dL (1.8-2.4) 06/02/18 04:45 Total Bilirubin 0.9 mg/dL (0.2-1.0) 05/31/18 05:40 AST 23 U/L (15-37) 05/31/18 05:40 ALT 46 U/L (12-78) 05/31/18 05:40 Alkaline Phosphatase 75 U/L (45-117) 05/31/18 05:40 Triglycerides 647 mg/dL (<150) H 06/01/18 04:27 Cholesterol 199 mg/dL (<200) 05/30/18 05:15 LDL Cholesterol Direct 79 mg/dL (100-129) L 06/01/18 04:27 HDL Cholesterol 25 mg/dL (40-60) L 05/30/18 05:15 Cholesterol/HDL Ratio 7.96 05/30/18 05:15 Lipase 1032 U/L (73-393) H 05/28/18 22:50 Home Medications: Gemfibrozil [Lopid*] 1 tab PO BID 05/29/18 Insulin Aspart [Novolog] See Protocol SQ TID 05/29/18 Insulin Glargine,Hum.rec.anlog [Lantus] 36 units SQ BEDTIME 05/29/18 Pantoprazole [Protonix Tab*] 1 tab PO BEDTIME 05/29/18 Pregabalin [Lyrica*] 1 cap PO TID 05/29/18 Sertraline [Zoloft*] 100 mg PO DAILY 05/29/18 Trazodone HCl 1 tab PO BEDTIME PRN 05/29/18 traMADol HCL [Ultram*] 50 mg PO Q6H PRN #30 tab 06/02/18 New Medications: traMADol HCL [Ultram*] 50 mg PO Q6H PRN #30 tab PRN Reason: Pain Diet: Regular Activity: Ad harsha Followup: Gino Lira MD [Primary Care Provider] - 1 Week (Call to schedule an appointment)
== END 2018-06-02 13:32 | disposition home or self-care (01) | DRG 440 ==
LOC: ER 21:51 → 2ND 05-29 02:39 → 3RD-ICU 05-29 04:28 → 4TH 06-01 15:00
PROVIDERS: ADMIT Internal Medicine; ATTEND Internal Medicine
DX: K85.90 Acute pancreatitis without necrosis or infection, unspecified (principal); E78.1 Pure hyperglyceridemia; E11.9 Type 2 diabetes mellitus without complications; Z79.4 Long term (current) use of insulin; F12.10 Cannabis abuse, uncomplicated; K21.9 Gastro-esophageal reflux disease without esophagitis; Z23 Encounter for immunization
CPT/HCPCS: 36415; 74177; 80048; 80053; 80061; 80076; 80307; 81003; 82962; 83690; 83735; 84478; 85025; 96361; 96374; 96375; 99285; C9113; G0008; J1650; J2270; J2405; J3010; J3475; J7030; Q2035; Q9967

== ENCOUNTER 2018-09-15 03:51 | Emergency (ER) | payer BC, SELFPAY ==
--- NOTE | 2018-09-15 04:06 | EDPHYS ---
Physician Documentation [facility] Name: Alex Auguste Age: 38 yrs Sex: Male : 1980 Arrival Date: 09/15/2018 Time: 03:52 Bed 20 Private MD: ED Physician Taurus Eng HPI: 09/15 03:57 This 38 yrs old Male presents to ER via Unassigned with complaints of Leg ps1 Pain. 03:57 patient presenting with left leg pain localized to the lateral aspect of the left leg ps1 extending from the hip to the insertion point ot the lateral knee. Appears c/w IT band syndrome. Atraumatic. Pain started 2 weeks ago. Pain rated as moderate to severe and worse with palpation and weight bearing. 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 Historical: - Allergies: 04:14 No Known Allergies; ea - Home Meds: 04:14 trazodone 100 mg Oral tab PRN sleep [Active]; Novolog 100 unit/mL Sub-Q soln sliding ea scale tid with meals [Active]; Lyrica 50 mg Oral cap 1 cap 3 times per day [Active]; Lantus 100 unit/mL Sub-Q soln 31 unit nightly [Active]; gemfibrozil 600 mg Oral tab 1 tab 2 times per day [Active]; citalopram 20 mg tab 1 tab once daily [Active]; Creon Oral 1 cap 3 times per day [Active]; - PMHx: 04:14 Diabetes - IDDM; High Triglycerides; Hyperlipidemia; Pancreatitis; ea - PSHx: 04:14 None; ea - Immunization history:: Adult Immunizations up to date. - Social history:: Smoking status: Patient/guardian denies using tobacco. - Ebola Screening: : No symptoms or risks identified at this time. ROS: 03:57 Constitutional: Negative for fever, chills, and weight loss, Eyes: Negative for injury, ps1 pain, redness, and discharge, Cardiovascular: Negative for chest pain, palpitations, and edema, Respiratory: Negative for shortness of breath, cough, wheezing, and pleuritic chest pain, Abdomen/GI: Negative for abdominal pain, nausea, vomiting, diarrhea, and constipation, Skin: Negative for injury, rash, and discoloration, Neuro: Negative for headache, weakness, numbness, tingling, and seizure. 03:57 MS/extremity: Positive for tenderness, of the lateral aspect of left thigh and lateral aspect of left knee. Exam: 03:57 Constitutional: This is a well developed, well nourished patient who is awake, alert, ps1 and in no acute distress. Head/Face: Normocephalic, atraumatic. Eyes: Pupils equal round and reactive to light, extra-ocular motions intact. Lids and lashes normal. Conjunctiva and sclera are non-icteric and not injected. Chest/axilla: Normal chest wall appearance and motion. Nontender with no deformity. No lesions are appreciated. Cardiovascular: Regular rate and rhythm. No gallops, murmurs, or rubs. Normal PMI, no JVD. No pulse deficits. Respiratory: Lungs have equal breath sounds bilaterally, clear to auscultation and percussion. No rales, rhonchi or wheezes noted. No increased work of breathing, no retractions or nasal flaring. Skin: Warm, dry with normal turgor. Normal color with no rashes, no lesions, and no evidence of cellulitis. Neuro: Awake and alert, GCS 15, oriented to person, place, time, and situation. Cranial nerves II-XII grossly intact. Sensory grossly intact. 03:57 Musculoskeletal/extremity: Extremities: grossly normal except: noted in the lateral aspect of left knee and lateral aspect of left thigh: tenderness. Vital Signs: 03:55 BP 137 / 91; Pulse 85; Resp 18; Temp 98.2(O); Pulse Ox 99% ; Weight 74.84 kg; Height 5 ea ft. 10 in. (177.80 cm); Pain 10/10; 03:55 Body Mass Index 23.67 (74.84 kg, 177.80 cm) ea MDM: 04:04 Patient medically screened. ps1 09/15 04:05 Order name: Jeremy Wrap; Complete Time: 04:26 ps1 Administered Medications: 04:02 Drug: Decadron 10 mg Route: IM; Site: Other; ea 04:26 Follow up: Response: No adverse reaction ea 04:05 Drug: TORadol 30 mg Route: IM; Site: right deltoid; ea 04:26 Follow up: Response: No adverse reaction ea Disposition: 09/15/18 04:04 Discharged to Home. Impression: IT band syndrome left leg. - Condition is Stable. - Discharge Instructions: Iliotibial Band Syndrome. - Prescriptions for Anaprox DS 550 mg Oral Tablet - take 1 tablet by ORAL route every 12 hours As needed; 20 tablet. Robaxin 500 mg Oral Tablet - take 2 tablet by ORAL route every 6 hours As needed; 40 tablet. Medrol (Khoa) 4 mg Oral Tablets, Dose Pack - take 1 tablet by ORAL route as directed - follow package instructions; 1 packet. - Work release form, Medication Reconciliation Form, Thank You Letter, Antibiotic Education, Prescription Opioid Use form. - Follow up: Private Physician; When: As needed; Reason: Further diagnostic work-up, Recheck today's complaints, Continuance of care, Re-evaluation by your physician. Follow up: Emergency Department; When: As needed; Reason: Fever > 102 F, Worsening of condition. - Problem is an ongoing problem. - Symptoms have improved. Signatures: Farzana Moyer RN RN Taurus Go MD MD ps1 Corrections: (The following items were deleted from the chart) 04:27 04:04 09/15/2018 04:04 Discharged to Home. Impression: IT band syndrome left leg. ea Condition is Stable. Forms are Medication Reconciliation Form, Thank You Letter, Antibiotic Education, Prescription Opioid Use. Follow up: Private Physician; When: As needed; Reason: Further diagnostic work-up, Recheck today's complaints, Continuance of care, Re-evaluation by your physician. Follow up: Emergency Department; When: As needed; Reason: Fever > 102 F, Worsening of condition. Problem is an ongoing problem. Symptoms have improved. ps1
[2018-09-15] MEDS ORDERED: DEXAMETHASONE 4 MG/ML VIAL ONE (04:11)
[2018-09-15] MEDS ORDERED: KETOROLAC 30 MG/ML INJ ONE (04:12)
--- NOTE | 2018-09-15 04:28 | ER ---
Nurse's Notes [facility] Name: Alex Auguste Age: 38 yrs Sex: Male : 1980 Arrival Date: 09/15/2018 Time: 03:52 Bed 20 Private MD: Diagnosis: IT band syndrome left leg Presentation: 09/15 03:50 Presenting complaint: Patient states: Pain started on left outer hip and radiates to ea knee, reports it started a week a go and is worse today. Pt denies injury or fall. Transition of care: patient was not received from another setting of care. Onset of symptoms was September 15, 2018. Risk Assessment: Do you want to hurt yourself or someone else? Patient reports no desire to harm self or others. Initial Sepsis Screen: Does the patient meet any 2 criteria? No. Patient's initial sepsis screen is negative. Does the patient have a suspected source of infection? No. Patient's initial sepsis screen is negative. Care prior to arrival: None. 03:50 Method Of Arrival: Ambulatory ea 03:50 Acuity: [place] 4 ea Triage Assessment: 03:50 General: Appears uncomfortable, Behavior is appropriate for age. Pain: Complains of ea pain in left leg and lateral aspect of left knee and lateral aspect of left thigh Pain began 2 weeks ago. Neuro: Level of Consciousness is awake, alert, obeys commands, Oriented to person, place, time, situation. Cardiovascular: Patient's skin is warm and dry. Derm: Skin is pink, warm \T\ dry. Historical: - Allergies: 04:14 No Known Allergies; ea - Home Meds: 04:14 trazodone 100 mg Oral tab PRN sleep [Active]; Novolog 100 unit/mL Sub-Q soln sliding ea scale tid with meals [Active]; Lyrica 50 mg Oral cap 1 cap 3 times per day [Active]; Lantus 100 unit/mL Sub-Q soln 31 unit nightly [Active]; gemfibrozil 600 mg Oral tab 1 tab 2 times per day [Active]; citalopram 20 mg tab 1 tab once daily [Active]; Creon Oral 1 cap 3 times per day [Active]; - PMHx: 04:14 Diabetes - IDDM; High Triglycerides; Hyperlipidemia; Pancreatitis; ea - PSHx: 04:14 None; ea - Immunization history:: Adult Immunizations up to date. - Social history:: Smoking status: Patient/guardian denies using tobacco. - Ebola Screening: : No symptoms or risks identified at this time. Screenin:12 Abuse screen: Denies threats or abuse. Nutritional screening: No deficits noted. ea Tuberculosis screening: No symptoms or risk factors identified. Fall Risk None identified. Assessment: 04:26 Reassessment: Patient and/or family updated on plan of care and expected duration. Pain ea level reassessed. Patient is alert, oriented x 3, equal unlabored respirations, skin warm/dry/pink. Jeremy wrap applied to left knee, pt tolerating well. Discharge instructions given to patient, verbalized the understanding of instructions. Vital Signs: 03:55 BP 137 / 91; Pulse 85; Resp 18; Temp 98.2(O); Pulse Ox 99% ; Weight 74.84 kg; Height 5 ea ft. 10 in. (177.80 cm); Pain 10/10; 03:55 Body Mass Index 23.67 (74.84 kg, 177.80 cm) ea ED Course: 03:50 Patient has correct armband on for positive identification. Placed in gown. Call light ea in reach. 03:50 Arm band placed on right wrist. Patient placed in an exam room, on a stretcher, on ea pulse oximetry. 03:52 Patient arrived in ED. ag3 03:57 Taurus Eng MD is Attending Physician. ps1 04:07 Farzana Moyer, RN is Primary Nurse. ea 04:10 Triage completed. ea 04:15 No provider procedures requiring assistance completed. Patient did not have IV access ea during this emergency room visit. Administered Medications: 04:02 Drug: Decadron 10 mg Route: IM; Site: Other; ea 04:26 Follow up: Response: No adverse reaction ea 04:05 Drug: TORadol 30 mg Route: IM; Site: right deltoid; ea 04:26 Follow up: Response: No adverse reaction ea Outcome: 04:04 Discharge ordered by . ps1 04:27 Discharged to home ambulatory. ea 04:27 Condition: improved 04:27 Discharge instructions given to patient, Instructed on discharge instructions, follow up and referral plans. medication usage, Demonstrated understanding of instructions, follow-up care, medications, Prescriptions given X 3. 04:27 Patient left the ED. ea Signatures: Farzana Moyer, RN RN Taurus Go MD MD ps1 Faye Smiley ag3
[2018-09-15 04:32] VITALS: BP 137/91; TEMP 98.2; O2SAT 99
== END 2018-09-15 04:27 | disposition home or self-care (01) ==
LOC: ER 03:51
DX: M76.32 Iliotibial band syndrome, left leg (principal); E78.5 Hyperlipidemia, unspecified; E11.9 Type 2 diabetes mellitus without complications; Z79.4 Long term (current) use of insulin
CPT/HCPCS: 96372; 99283

== ENCOUNTER 2018-09-19 19:57 | Emergency (ER) | payer SELFPAY ==
--- NOTE | 2018-09-19 23:22 | EDPHYS ---
Physician Documentation [facility] Name: Alex Auguste Age: 38 yrs Sex: Male : 1980 Arrival Date: 09/19/2018 Time: 19:58 Bed 26 Private MD: Gino Lira ED Physician Jose Rafael Rojo HPI: 09/19 23:41 This 38 yrs old Male presents to ER via Ambulatory with complaints of Low kb Back Pain, Leg Pain. 23:43 The patient presents with pain, that is acute, tenderness. The complaints affect the kb left quadriceps. Context: The problem was sustained at home, resulted from an unknown cause, the patient can partially bear weight, the patient is able to ambulate. Onset: The symptoms/episode began/occurred 3 week(s) ago. Modifying factors: The symptoms are alleviated by remaining still, the symptoms are aggravated by movement, weight bearing, bending knee. Associated signs and symptoms: The patient has no apparent associated signs or symptoms. Treatment prior to arrival includes: newtno wrap, icing the affected extremity, over the counter medications, prescription medications, muscle relaxant. Severity of symptoms: At their worst the symptoms were moderate, in the emergency department the symptoms are unchanged. The patient has not experienced similar symptoms in the past. The patient has been recently seen by a physician: the patient's primary care provider, The patient has been recently seen at the [facility] Emergency Department. Historical: - Allergies: 20:17 No Known Allergies; ea - Home Meds: 20:17 Lantus 100 unit/mL Sub-Q soln 31 unit nightly [Active]; Novolog 100 unit/mL Sub-Q soln ea sliding scale tid with meals [Active]; gemfibrozil 600 mg Oral tab 1 tab 2 times per day [Active]; Niacin Oral [Active]; trazodone 100 mg Oral tab PRN sleep [Active]; Prozac Oral [Active]; - PMHx: 20:17 Diabetes - IDDM; High Triglycerides; Hyperlipidemia; Pancreatitis; ea - PSHx: 20:17 Cholecystectomy; ea - Immunization history:: Adult Immunizations up to date. - Social history:: Smoking status: Patient/guardian denies using tobacco. - Ebola Screening: : No symptoms or risks identified at this time. ROS: 23:42 Constitutional: Negative for fever, chills, and weight loss, Cardiovascular: Negative kb for chest pain, palpitations, and edema, Respiratory: Negative for shortness of breath, cough, wheezing, and pleuritic chest pain, Abdomen/GI: Negative for abdominal pain, nausea, vomiting, diarrhea, and constipation, Back: Negative for injury and pain, Skin: Negative for injury, rash, and discoloration, Neuro: Negative for headache, weakness, numbness, tingling, and seizure. 23:42 MS/extremity: Positive for injury or acute deformity, pain, tenderness, of the left quadriceps. Exam: 23:42 Constitutional: This is a well developed, well nourished patient who is awake, alert, kb and in no acute distress. Head/Face: Normocephalic, atraumatic. Neck: Trachea midline, no thyromegaly or masses palpated, and no cervical lymphadenopathy. Supple, full range of motion without nuchal rigidity, or vertebral point tenderness. No Meningismus. Chest/axilla: Normal chest wall appearance and motion. Nontender with no deformity. No lesions are appreciated. Cardiovascular: Regular rate and rhythm with a normal S1 and S2. No gallops, murmurs, or rubs. Normal PMI, no JVD. No pulse deficits. Respiratory: Lungs have equal breath sounds bilaterally, clear to auscultation and percussion. No rales, rhonchi or wheezes noted. No increased work of breathing, no retractions or nasal flaring. Abdomen/GI: Soft, non-tender, with normal bowel sounds. No distension or tympany. No guarding or rebound. No evidence of tenderness throughout. Skin: Warm, dry with normal turgor. Normal color with no rashes, no lesions, and no evidence of cellulitis. Neuro: Awake and alert, GCS 15, oriented to person, place, time, and situation. Cranial nerves II-XII grossly intact. Motor strength 5/5 in all extremities. Sensory grossly intact. Cerebellar exam normal. Normal gait. 23:42 Musculoskeletal/extremity: Extremities: grossly normal except: noted in the left quadriceps: pain, tenderness, ROM: limited active range of motion due to pain, Circulation is intact in all extremities. Sensation intact. Weight bearing: able to fully bear weight, for short periods of time. Vital Signs: 20:15 BP 146 / 108; Pulse 80; Resp 18; Temp 97.7; Pulse Ox 99% ; Weight 77.11 kg; Height 5 ea ft. 10 in. (177.80 cm); Pain 8/10; 22:45 BP 151 / 98; Pulse 85; Resp 19; Pulse Ox 100% on R/A; ca1 20:15 Body Mass Index 24.39 (77.11 kg, 177.80 cm) ea MDM: 22:46 Patient medically screened. kb 23:41 Data reviewed: vital signs, nurses notes. Data interpreted: Pulse oximetry: on room air kb is 99 %. Interpretation: normal. Counseling: I had a detailed discussion with the patient and/or guardian regarding: the historical points, exam findings, and any diagnostic results supporting the discharge/admit diagnosis, the need for outpatient follow up, a family practitioner, a orthopedic surgeon, to return to the emergency department if symptoms worsen or persist or if there are any questions or concerns that arise at home. 09/19 23:30 Order name: Crutches; Complete Time: 23:37 kb Administered Medications: 23:47 Drug: Flexeril 10 mg Route: PO; fu 09/20 00:42 Follow up: Response: Medication administered at discharge. ca1 09/19 23:48 Drug: Sophia (7.5 mg-325 mg) 1 tabs Route: PO; fu 09/20 00:43 Follow up: Response: Medication administered at discharge. ca1 Disposition: 10:23 Co-signature as Attending Physician, Jose Rafael Rojo MD I agree with the assessment and wa plan of care. Disposition: 09/19/18 23:22 Discharged to Home. Impression: Pain in left leg - IT band syndrome. - Condition is Stable. - Discharge Instructions: Leg Cramps, Musculoskeletal Pain. - Prescriptions for Cyclobenzaprine 10 mg Oral Tablet - take 1 tablet by ORAL route every 8 hours As needed; 21 tablet. Tramadol 50 mg Oral Tablet - take 1 tablet by ORAL route every 8 hours as needed; 12 tablet. - Medication Reconciliation Form, Thank You Letter, Antibiotic Education, Prescription Opioid Use form. - Follow up: Emergency Department; When: As needed; Reason: Worsening of condition. Follow up: Gino Lira; When: 2 - 3 days; Reason: Recheck today's complaints, Continuance of care, Re-evaluation by your physician. Signatures: La Ar[place], SUPERVISOR COREMAKER-C SUPERVISOR COREMAKER-CkFarzana Arora, RN Jose Rafael Pacheco ea, MD MD wa Umadhay, Felix, RN Minerva Roldan, RN RN ca1 Corrections: (The following items were deleted from the chart) 09/19 23:57 23:22 09/19/2018 23:22 Discharged to Home. Impression: Pain in left leg - IT band ca1 syndrome. Condition is Stable. Discharge Instructions: Leg Cramps, Musculoskeletal Pain. Prescriptions for Cyclobenzaprine 10 mg Oral Tablet - take 1 tablet by ORAL route every 8 hours As needed; 21 tablet, Tramadol 50 mg Oral Tablet - take 1 tablet by ORAL route every 8 hours as needed; 12 tablet. and Forms are Medication Reconciliation Form, Thank You Letter, Antibiotic Education, Prescription Opioid Use. Follow up: Emergency Department; When: As needed; Reason: Worsening of condition. Follow up: Gino Lira; When: 2 - 3 days; Reason: Recheck today's complaints, Continuance of care, Re-evaluation by your physician. kb
--- NOTE | 2018-09-19 23:22 | ER ---
Nurse's Notes [facility] Name: Alex Auguste Age: 38 yrs Sex: Male : 1980 Arrival Date: 09/19/2018 Time: 19:58 Bed 26 Private MD: Gino Lira Diagnosis: Pain in left leg-IT band syndrome Presentation: 09/19 20:11 Presenting complaint: Patient states: Pt reports pain to left knee that radiates to ea lower back. Pain started about two weeks ago and pain just started getting worse. Reports he called Dr. Ribeiro and was told to come to ED for imaging. Transition of care: patient was not received from another setting of care. Onset of symptoms was September 19, 2018. Risk Assessment: Do you want to hurt yourself or someone else? Patient reports no desire to harm self or others. Initial Sepsis Screen: Does the patient meet any 2 criteria? No. Patient's initial sepsis screen is negative. Does the patient have a suspected source of infection? No. Patient's initial sepsis screen is negative. Care prior to arrival: None. 20:11 Method Of Arrival: Ambulatory ea 20:11 Acuity: [place] 3 ea Triage Assessment: 20:18 General: Appears uncomfortable, Behavior is appropriate for age. Pain: Complains of ea pain in left low back, left upper thigh, left quadriceps and left knee Pain currently is 7 out of 10 on a pain scale. Quality of pain is described as aching. Neuro: Level of Consciousness is awake, alert, obeys commands, Oriented to person, place, time, situation. Respiratory: Airway is patent Respiratory effort is even, unlabored, Respiratory pattern is regular, symmetrical. Derm: Skin is pink, warm \T\ dry. Historical: - Allergies: 20:17 No Known Allergies; ea - Home Meds: 20:17 Lantus 100 unit/mL Sub-Q soln 31 unit nightly [Active]; Novolog 100 unit/mL Sub-Q soln ea sliding scale tid with meals [Active]; gemfibrozil 600 mg Oral tab 1 tab 2 times per day [Active]; Niacin Oral [Active]; trazodone 100 mg Oral tab PRN sleep [Active]; Prozac Oral [Active]; - PMHx: 20:17 Diabetes - IDDM; High Triglycerides; Hyperlipidemia; Pancreatitis; ea - PSHx: 20:17 Cholecystectomy; ea - Immunization history:: Adult Immunizations up to date. - Social history:: Smoking status: Patient/guardian denies using tobacco. - Ebola Screening: : No symptoms or risks identified at this time. Screenin:45 Abuse screen: Denies threats or abuse. Denies injuries from another. Nutritional ca1 screening: No deficits noted. Tuberculosis screening: No symptoms or risk factors identified. Fall Risk Ambulatory Aid- Crutches/Cane/Walker (15 pts). Assessment: 22:45 General: Appears in no apparent distress. uncomfortable, Behavior is calm, cooperative, ca1 appropriate for age. 22:45 Pain: Complains of pain in left knee and left quadriceps and left upper thigh Pain ca1 radiates to back and left low back and left leg Pain currently is 8 out of 10 on a pain scale. Quality of pain is described as aching, Pain began 5 days ago Is continuous, Aggravated by weight bearing, Noted to be grimacing. Neuro: Level of Consciousness is awake, alert, obeys commands, Oriented to person, place, time, situation. Cardiovascular: Heart tones S1 S2 present Capillary refill < 3 seconds Patient's skin is warm and dry. Respiratory: Airway is patent Respiratory effort is even, unlabored, Respiratory pattern is regular, symmetrical, Breath sounds are clear bilaterally. GI: Abdomen is flat, non-distended, Bowel sounds present X 4 quads. Abd is soft and non tender X 4 quads. : No deficits noted. No signs and/or symptoms were reported regarding the genitourinary system. EENT: No deficits noted. No signs and/or symptoms were reported regarding the EENT system. Derm: Skin is intact, is healthy with good turgor, Skin is pink, warm \T\ dry. Musculoskeletal: Circulation, motion, and sensation intact. Capillary refill < 3 seconds, Range of motion: limited in left leg and left knee and left upper thigh Reports tenderness when touched. Vital Signs: 20:15 BP 146 / 108; Pulse 80; Resp 18; Temp 97.7; Pulse Ox 99% ; Weight 77.11 kg; Height 5 ea ft. 10 in. (177.80 cm); Pain 8/10; 22:45 BP 151 / 98; Pulse 85; Resp 19; Pulse Ox 100% on R/A; ca1 20:15 Body Mass Index 24.39 (77.11 kg, 177.80 cm) ea ED Course: 19:58 Patient arrived in ED. am2 19:59 Gino Lira MD is Private Physician. am2 20:14 Triage completed. ea 20:20 Patient placed in waiting room. ea 22:45 Patient has correct armband on for positive identification. Placed in gown. Bed in low ca1 position. Call light in reach. Side rails up X 1. Pulse ox on. NIBP on. Warm blanket given. 22:45 Arm band placed on right wrist. ca1 22:45 No provider procedures requiring assistance completed. Patient did not have IV access ca1 during this emergency room visit. 22:46 La Arciniega [facility]C [facility] kb 22:46 Jose Rafael Rojo MD is Attending Physician. kb 23:22 Gino Lira MD is Referral Physician. kb 23:56 Minerva Boo, KECIA is Primary Nurse. ca1 Administered Medications: 23:47 Drug: Flexeril 10 mg Route: PO; fu 09/20 00:42 Follow up: Response: Medication administered at discharge. ca1 03 23:48 Drug: [place] (7.5 mg-325 mg) 1 tabs Route: PO; fu 09/20 00:43 Follow up: Response: Medication administered at discharge. ca1 Outcome: 09/19 23:22 Discharge ordered by . kb 23:55 Discharged to home ambulatory, with crutches, with significant other. ca1 23:55 Discharge instructions given to patient, significant other, Instructed on discharge instructions, follow up and referral plans. medication usage, Demonstrated understanding of instructions, follow-up care, medications, Prescriptions given X 2. 23:55 Condition: stable ca1 23:57 Patient left the ED. ca1 Signatures: La Arciniega FNP-C [employer]-Lacie Quiros am2 Farzana Moyer RN RN ea Umadhay, Felix, RN RN fu Acob, Cheryl, RN RN ca1 Corrections: (The following items were deleted from the chart) 03 00:42 00:40 Discharged to home ambulatory, with crutches, with significant other, ca1 ca1 00:42 00:40 Condition: stable ca1 ca1 00:42 00:40 Discharge instructions given to patient, significant other, Instructed on ca1 discharge instructions, follow up and referral plans. medication usage, Demonstrated understanding of instructions, follow-up care, medications, Prescriptions given X 2, ca1
[2018-09-19] MEDS ORDERED: HYDROCODONE/APAP 7.5/325 MG TAB ONE (23:52)
[2018-09-19] MEDS ORDERED: CYCLOBENZAPRINE 10 MG TAB ONE (23:52)
[2018-09-20 00:57] VITALS: BP 146/108; TEMP 97.7; O2SAT 99
== END 2018-09-19 23:57 | disposition home or self-care (01) ==
LOC: ER 19:57
DX: M76.32 Iliotibial band syndrome, left leg (principal); E11.9 Type 2 diabetes mellitus without complications; E78.5 Hyperlipidemia, unspecified; Z79.4 Long term (current) use of insulin
CPT/HCPCS: 99283

== ENCOUNTER 2019-02-03 15:13 | Emergency (ER) | payer SELFPAY ==
--- OUTSIDE RECORDS SUMMARY | 2019-02-03 15:15 | XMS REPORT ---
:1980 [facility] Address [address] [place] [address] Dr. Loya [address] [place] [id number] Care Team Providers Name Role Phone Unavailable Unavailable Unavailable Problems This patient has no known problems. Allergies, Adverse Reactions, Alerts This patient has no known allergies or adverse reactions. Medications This patient has no known medications.
[2019-02-03] MEDS ORDERED: LIDOCAINE 5% PATCH TD ONE (16:00)
[2019-02-03] MEDS ORDERED: HYDROCODONE/APAP 10/325 TAB ONE (16:08)
--- NOTE | 2019-02-03 16:47 | RAD REPORT ---
EXAM DESCRIPTION: US - Extremity Venous Uni Ltd - 02/03/2019 4:27 pm COMPARISON: None. TECHNIQUE: Real-time sonographic evaluation of the right lower extremity deep venous systems was per formed. FINDINGS: Normal compressibility, flow augmentation, phasic flow and spontaneous flow are identified in the right lower extremity common femoral, superficial femoral, popliteal and posterior tibial vei ns. No intraluminal filling defects seen. IMPRESSION: No DVT in the right lower extremity.
--- NOTE | 2019-02-03 17:18 | ER ---
Nurse's Notes [facility] Name: Alex Auguste Age: 38 yrs Sex: Male : 1980 Arrival Date: 02/03/2019 Time: 15:15 Bed 28 Private MD: Diagnosis: Lumbago with sciatica, right side Presentation: 02/03 15:19 Presenting complaint: Patient states: R leg pain x 1 week. Denies injury. Transition of ss care: patient was not received from another setting of care. Onset of symptoms was January 27, 2019. Risk Assessment: Do you want to hurt yourself or someone else? Patient reports no desire to harm self or others. Initial Sepsis Screen: Does the patient meet any 2 criteria? No. Patient's initial sepsis screen is negative. Does the patient have a suspected source of infection? No. Patient's initial sepsis screen is negative. Care prior to arrival: None. 15:19 Method Of Arrival: Ambulatory ss 15:19 Acuity: [place] 2 ss 15:19 Note Pt states, "my heart rate and my blood pressure have been really high over the ss past month. I forgot to tell Dr. Lira at my appointment.". Historical: - Allergies: 15:20 No Known Allergies; ss - PMHx: 15:20 Pancreatitis; Hyperlipidemia; High Triglycerides; Diabetes - IDDM; ss - PSHx: 15:20 Cholecystectomy; ss - Immunization history:: Adult Immunizations up to date. - Social history:: Smoking status: Patient uses tobacco products, smokes one-half pack cigarettes per day. - Ebola Screening: : Patient denies exposure to infectious person Patient denies travel to an Ebola-affected area in the 21 days before illness onset. Screenin:45 Abuse screen: Denies threats or abuse. Denies injuries from another. Nutritional ca1 screening: No deficits noted. Tuberculosis screening: No symptoms or risk factors identified. Fall Risk None identified. Assessment: 15:45 General: Appears in no apparent distress. comfortable, Behavior is calm, cooperative, ca1 appropriate for age. Pain: Complains of pain in low back area, buttocks and right leg Pain currently is 10 out of 10 on a pain scale. Pain began 1 week ago. Neuro: Level of Consciousness is awake, alert, obeys commands. Cardiovascular: Heart tones S1 S2 present Capillary refill < 3 seconds Patient's skin is warm and dry. Respiratory: Airway is patent Breath sounds are clear bilaterally. Derm: Skin is intact, is healthy with good turgor, Skin is pink, warm \\T\\ dry. Musculoskeletal: Circulation, motion, and sensation intact. Capillary refill < 3 seconds, Range of motion: intact in all extremities. 16:42 Reassessment: Patient appears in no apparent distress at this time. Patient and/or ca1 family updated on plan of care and expected duration. Pain level reassessed. Patient is alert, oriented x 3, equal unlabored respirations, skin warm/dry/pink. 17:40 Reassessment: Patient appears in no apparent distress at this time. Patient is alert, ca1 oriented x 3, equal unlabored respirations, skin warm/dry/pink. Vital Signs: 15:20 BP 150 / 97; Pulse 123; Resp 16; Temp 98.2(TE); Pulse Ox 99% on R/A; Weight 86.18 kg; ss Height 5 ft. 10 in. (177.80 cm); Pain 10/10; 16:15 BP 140 / 108; Pulse 113; Resp 16 S; Pulse Ox 100% on R/A; ca1 17:20 BP 157 / 92; Pulse 99; Resp 14 S; Pulse Ox 100% on R/A; ca1 17:40 BP 143 / 96; Pulse 89; Resp 15 S; Pulse Ox 100% on R/A; ca1 15:20 Body Mass Index 27.26 (86.18 kg, 177.80 cm) ED Course: 15:15 Patient arrived in ED. as 15:20 Triage completed. ss 15:20 Arm band placed on right wrist. ss 15:31 Yvon Warren NP is PHCP. pm1 15:31 Manpreet Nina MD is Attending Physician. pm1 15:41 Minerva Boo, KECIA is Primary Nurse. ca1 15:45 Patient has correct armband on for positive identification. Placed in gown. Bed in low ca1 position. Call light in reach. Side rails up X 1. Pulse ox on. NIBP on. Warm blanket given. 15:45 No provider procedures requiring assistance completed. Patient did not have IV access ca1 during this emergency room visit. 16:28 Extremity Venous Uni Ltd US In Process Unspecified. EDMS Administered Medications: 15:56 Drug: Ronald 10 mg-325 mg 1 tabs Route: PO; ca1 16:30 Follow up: Response: No adverse reaction; Pain is decreased ca1 16:05 Drug: lidocaine 5% patch 1 patches Route: Topical; Site: affected area; rv 17:26 Drug: fentaNYL (PF) 25 mcg Route: IM; Site: left deltoid; ca1 17:40 Follow up: Response: No adverse reaction; Pain is decreased ca1 Outcome: 17:17 Discharge ordered by MD. pm1 17:49 Discharged to home ambulatory, with significant other. ca1 17:49 Condition: stable 17:49 Discharge instructions given to patient, Instructed on discharge instructions, follow up and referral plans. medication usage, Demonstrated understanding of instructions, follow-up care, medications, Prescriptions given X 2. 17:49 Patient left the ED. ca1 Signatures: Dispatcher [employer] EDMS Melina Avilez Shelby, RN RN ss Yvon Warren, HEEL CASER HEEL CASER pm1 Brannon Saul RN RN rv Minerva Boo RN RN ca1 Corrections: (The following items were deleted from the chart) 15:22 15:19 Acuity: [place] 4 ss ss
--- NOTE | 2019-02-03 17:18 | EDPHYS ---
Physician Documentation [facility] Name: Alex Auguste Age: 38 yrs Sex: Male : 1980 Arrival Date: 02/03/2019 Time: 15:15 Bed 28 Private MD: ED Physician Manpreet Nina HPI: 02/03 15:43 This 38 yrs old Male presents to ER via Ambulatory with complaints of Lower pm1 back pain, Right Leg Pain. 15:43 The patient presents with pain. The symptoms are located in the low back. Location: pm1 right leg. The problem was sustained renae back about 6 months ago stepping down from a ladder. Onset: The symptoms/episode began/occurred 6 month(s) ago. Modifying factors: The patient symptoms are alleviated by remaining still, the patient symptoms are aggravated by movement. Associated signs and symptoms: Pertinent negatives: numbness, tingling. Severity of symptoms: in the emergency department the symptoms are actually worse. The patient has been recently seen by a physician: Has MRI of lower back scheduled next week. Historical: - Allergies: 15:20 No Known Allergies; ss - PMHx: 15:20 Pancreatitis; Hyperlipidemia; High Triglycerides; Diabetes - IDDM; ss - PSHx: 15:20 Cholecystectomy; ss - Immunization history:: Adult Immunizations up to date. - Social history:: Smoking status: Patient uses tobacco products, smokes one-half pack cigarettes per day. - Ebola Screening: : Patient denies exposure to infectious person Patient denies travel to an Ebola-affected area in the 21 days before illness onset. ROS: 15:43 Constitutional: Negative for fever, chills, and weight loss, Eyes: Negative for injury, pm1 pain, redness, and discharge, ENT: Negative for injury, pain, and discharge, Neck: Negative for injury, pain, and swelling, Cardiovascular: Negative for chest pain, palpitations, and edema, Respiratory: Negative for shortness of breath, cough, wheezing, and pleuritic chest pain, Abdomen/GI: Negative for abdominal pain, nausea, vomiting, diarrhea, and constipation. 15:43 : Negative for injury, bleeding, discharge, and swelling, MS/Extremity: Negative for injury and deformity, Skin: Negative for injury, rash, and discoloration, Neuro: Negative for headache, weakness, numbness, tingling, and seizure. 15:43 Back: Positive for of the low back area, pain. Exam: 15:43 Constitutional: This is a well developed, well nourished patient who is awake, alert, pm1 and in no acute distress. Head/Face: Normocephalic, atraumatic. Chest/axilla: Normal chest wall appearance and motion. Nontender with no deformity. No lesions are appreciated. Cardiovascular: Regular rate and rhythm with a normal S1 and S2. No gallops, murmurs, or rubs. Normal PMI, no JVD. No pulse deficits. Respiratory: Lungs have equal breath sounds bilaterally, clear to auscultation and percussion. No rales, rhonchi or wheezes noted. No increased work of breathing, no retractions or nasal flaring. Abdomen/GI: Soft, non-tender, with normal bowel sounds. No distension or tympany. No guarding or rebound. No evidence of tenderness throughout. 15:43 Skin: Warm, dry with normal turgor. Normal color with no rashes, no lesions, and no evidence of cellulitis. MS/ Extremity: Pulses equal, no cyanosis. Neurovascular intact. Full, normal range of motion. 15:43 Back: normal spinal alignment noted, muscle spasm, is appreciated in the right low back. 15:43 Neuro: Orientation: is normal, Motor: moves all fours, Patient able to dorsiflex and plantar flex bilateral big toes 5/5 strength, Sensation: is normal, no obvious gross deficits. Vital Signs: 15:20 BP 150 / 97; Pulse 123; Resp 16; Temp 98.2(TE); Pulse Ox 99% on R/A; Weight 86.18 kg; ss Height 5 ft. 10 in. (177.80 cm); Pain 10/10; 16:15 BP 140 / 108; Pulse 113; Resp 16 S; Pulse Ox 100% on R/A; ca1 17:20 BP 157 / 92; Pulse 99; Resp 14 S; Pulse Ox 100% on R/A; ca1 17:40 BP 143 / 96; Pulse 89; Resp 15 S; Pulse Ox 100% on R/A; ca1 15:20 Body Mass Index 27.26 (86.18 kg, 177.80 cm) MDM: 15:34 Patient medically screened. pm1 16:31 Data reviewed: vital signs. Data interpreted: Pulse oximetry: on room air is 99 %. pm1 Interpretation: normal. ED course: Ultrasound negative for DVT. 17:16 Counseling: I had a detailed discussion with the patient and/or guardian regarding: the pm1 historical points, exam findings, and any diagnostic results supporting the discharge/admit diagnosis, radiology results, the need for outpatient follow up, a neurosurgeon, to return to the emergency department if symptoms worsen or persist or if there are any questions or concerns that arise at home. 02/03 15:41 Order name: Extremity Venous Uni Ltd ; Complete Time: 16:49 pm1 Administered Medications: 15:56 Drug: [place] 10 mg-325 mg 1 tabs Route: PO; ca1 16:30 Follow up: Response: No adverse reaction; Pain is decreased ca1 16:05 Drug: lidocaine 5% patch 1 patches Route: Topical; Site: affected area; rv 17:26 Drug: fentaNYL (PF) 25 mcg Route: IM; Site: left deltoid; ca1 17:40 Follow up: Response: No adverse reaction; Pain is decreased ca1 Disposition: 02/04 09:57 Co-signature as Attending Physician, Manpreet Nina MD I agree with the assessment and maegan plan of care. Disposition: 02/03/19 17:17 Discharged to Home. Impression: Lumbago with sciatica, right side. - Condition is Stable. - Discharge Instructions: Back Pain, Adult, Sciatica. - Prescriptions for Tylenol- Codeine #3 300-30 mg Oral Tablet - take 2 tablets by ORAL route every 6 hours As needed; 20 tablet. Cyclobenzaprine 10 mg Oral Tablet - take 1 tablet by ORAL route every 8 hours As needed; 30 tablet. - Medication Reconciliation Form, Thank You Letter, Antibiotic Education, Prescription Opioid Use form. - Follow up: Emergency Department; When: As needed; Reason: Worsening of condition. Follow up: Private Physician; When: 2 - 3 days; Reason: Recheck today's complaints, Continuance of care, Re-evaluation by your physician. - Problem is new. - Symptoms have improved. Signatures: Dispatcher [employer] EDManpreet Mosher MD MD cha Smirch, Shelby, RN RN ss Yvon Warren, KASH CONSUMER EXPERIENCE CONSULTANT pm1 Brannon Saul RN RN rv Minerva Boo RN RN ca1 Corrections: (The following items were deleted from the chart) 02/03 17:49 17:17 02/03/2019 17:17 Discharged to Home. Impression: Lumbago with sciatica, right ca1 side. Condition is Stable. Forms are Medication Reconciliation Form, Thank You Letter, Antibiotic Education, Prescription Opioid Use. Follow up: Emergency Department; When: As needed; Reason: Worsening of condition. Follow up: Private Physician; When: 2 - 3 days; Reason: Recheck today's complaints, Continuance of care, Re-evaluation by your physician. Problem is new. Symptoms have improved. pm1
[2019-02-03] MEDS ORDERED: FENTANYL CITR 100 MCG/2 ML ONE (17:38)
[2019-02-03 18:34] VITALS: TEMP 98.2
[2019-02-03 18:35] VITALS: O2SAT 100
[2019-02-03 18:37] VITALS: BP 143/96
== END 2019-02-03 17:49 | disposition home or self-care (01) ==
LOC: ER 15:13
DX: M54.41 Lumbago with sciatica, right side (principal); E78.5 Hyperlipidemia, unspecified; E11.9 Type 2 diabetes mellitus without complications; Z79.4 Long term (current) use of insulin
CPT/HCPCS: 93971; 96372; 99284; J3010

== ENCOUNTER 2019-03-04 10:47 | Inpatient (IN) | payer SELFPAY ==
--- OUTSIDE RECORDS SUMMARY | 2019-03-04 10:49 | XMS REPORT ---
:1980 [facility] Address [address] [place] [address] Dr. Loya [address] [place] [id number] Care Team Providers Name Role Phone Unavailable Unavailable Unavailable Problems This patient has no known problems. Allergies, Adverse Reactions, Alerts This patient has no known allergies or adverse reactions. Medications This patient has no known medications.
[2019-03-04] MEDS ORDERED: ONDANSETRON 4 MG/2 ML VIAL ONE (11:21)
[2019-03-04] MEDS ORDERED: NA CHLORIDE 0.9% 1,000 ML ONE (11:21)
[2019-03-04] MEDS ORDERED: MORPHINE 4 MG/ML SYR ONE ×3 (11:21→15:33)
[2019-03-04 11:39] LABS: Basophils % 0.9 % (0-1.3); Hematocrit 40.4 % (39.6-49.0); Lymphocytes % 17.9 % (15.3-44.8); MPV 7.2 fL (7.6-11.3); RBC Red Blood Cell Count 4.87 M/uL (4.33-5.43)
[2019-03-04 12:24] LABS: ALT/SGPT 24 U/L (12-78); AST/SGOT 24 U/L (15-37); Alkaline Phosphatase 82 U/L (45-117); BUN Blood Urea Nitrogen 16 mg/dL (7-18); Bicarbonate 24 mmol/L (21-32); Bilirubin Direct 0.1 mg/dL (0-0.2); Bilirubin Total 0.7 mg/dL (0.2-1.0); Glucose Level 274 mg/dL (74-106); Lipase 3831 U/L (73-393); Protein, Total 7.4 g/dL (6.4-8.2); Sodium Level 138 mmol/L (136-145)
--- NOTE | 2019-03-04 13:06 | EDPHYS ---
Physician Documentation [facility] Name: Alex Auguste Age: 38 yrs Sex: Male : 1980 Arrival Date: 03/04/2019 Time: 10:49 Bed 15 Private MD: ED Physician Manpreet Nina HPI: 03/04 11:10 This 38 yrs old Male presents to ER via Ambulatory with complaints of jmm Pancreatitis. 11:10 The patient presents with abdominal pain in the epigastric area. Onset: The jmm symptoms/episode began/occurred this morning. The symptoms do not radiate. Associated signs and symptoms: Pertinent positives: nausea. The symptoms are described as achy, sharp. This is a 38 year old male with a history DM, hypertriglyceridemia that presents to the ED with complaints of epigastric abdominal pain beginning earlier this morning. Most recent episode was this fall. Patient has had multiple similar episodes. . Historical: - Allergies: 10:56 No Known Allergies; ss - PMHx: 10:56 Diabetes - IDDM; High Triglycerides; Hyperlipidemia; Pancreatitis; ss - PSHx: 10:56 Cholecystectomy; ss - Immunization history:: Adult Immunizations up to date. - Social history:: Smoking status: Patient uses tobacco products, smokes one-half pack cigarettes per day. - Ebola Screening: : Patient denies exposure to infectious person Patient denies travel to an Ebola-affected area in the 21 days before illness onset. ROS: 11:10 Constitutional: Negative for fever, chills, and weight loss, Cardiovascular: Negative jmm for chest pain, palpitations, and edema, Respiratory: Negative for shortness of breath, cough, wheezing, and pleuritic chest pain. 11:10 Abdomen/GI: Positive for abdominal pain. 11:10 All other systems are negative. Exam: 11:10 Head/Face: atraumatic. Eyes: EOMI, no conjunctival erythema appreciated ENT: Moist jmm Mucus Membranes Neck: Trachea midline, Supple Chest/axilla: Normal chest wall appearance and motion. 11:10 Respiratory: Normal respirations, no respiratory distress appreciated Abdomen/GI: Non distended, soft Back: Normal ROM Skin: General appearance color normal MS/ Extremity: Moves all extremities, no obvious deformities appreciated, no edema noted to the lower extremities Neuro: Awake and alert, normal gait Psych: Behavior is normal, Mood is normal, Patient is cooperative and pleasant 11:10 Constitutional: The patient appears alert, awake, in obvious pain. 11:10 Cardiovascular: Rate: tachycardic, Rhythm: regular, Pulses: no pulse deficits are appreciated. Vital Signs: 10:56 BP 150 / 109; Pulse 121; Resp 21; Pulse Ox 100% on R/A; Weight 86.18 kg; Height 5 ft. ss 10 in. (177.80 cm); Pain 10/10; 11:56 BP 153 / 107; Pulse 100; Resp 20; Temp 98.0(TE); Pulse Ox 98% on R/A; Pain 10/10; rb1 12:56 BP 153 / 98; Pulse 62; Resp 14; Temp 98.0(TE); Pulse Ox 96% on R/A; rb1 13:50 BP 134 / 96; Pulse 101; Resp 16; Temp 98.1(TE); Pulse Ox 99% on R/A; Pain 7/10; rb1 14:30 BP 122 / 71; Pulse 97; Resp 18; Temp 98.0(TE); Pulse Ox 98% on R/A; Pain 6/10; rb1 15:30 BP 125 / 73; Pulse 95; Resp 17; Temp 98.2(O); Pulse Ox 100% on R/A; Pain 8/10; rb1 10:56 Body Mass Index 27.26 (86.18 kg, 177.80 cm) ss MDM: 11:00 Patient medically screened. [facility] 13:02 Data reviewed: vital signs, nurses notes. Counseling: I had a detailed discussion with [facility] the patient and/or guardian regarding: the historical points, exam findings, and any diagnostic results supporting the discharge/admit diagnosis, lab results, radiology results, the need for further work-up and treatment in the hospital. ED course: I discussed the patient with Dr. Shook whom accepted admission due to pancreatitis and inc tractable pain. . 03/04 11:00 Order name: Basic Metabolic Panel; Complete Time: 12:31 [facility] 03/04 11:00 Order name: CBC with Diff; Complete Time: 11:52 [facility] 03/04 11:00 Order name: Creatinine for Radiology; Complete Time: 12:02 [facility] 03/04 11:00 Order name: Hepatic Function; Complete Time: 12:31 [facility] 03/04 11:00 Order name: Lipase; Complete Time: 12:31 [facility] 03/04 11:00 Order name: Lactate; Complete Time: 12:02 [facility] 03/04 11:00 Order name: Procalcitonin; Complete Time: 12:31 [facility] 03/04 13:46 Order name: Abdomen W/Wo Contrast [facility] 03/04 13:46 Order name: Abdomen Exam Complete; Complete Time: 16:38 [facility] 03/04 15:57 Order name: CT; Complete Time: 16:38 [facility] 03/04 16:36 Order name: Glucose, Ancillary Testing; Complete Time: 16:38 [facility] 03/04 11:00 Order name: IV Saline Lock; Complete Time: 11:19 [facility] 03/04 11:00 Order name: Labs collected and sent; Complete Time: 11:19 [facility] Administered Medications: 11:25 Drug: NS 0.9% 1000 ml Route: IV; Rate: 1 bolus; Site: left forearm; rb1 12:44 Follow up: IV Status: Completed infusion rb1 11:25 Drug: morphine 4 mg Route: IVP; Site: left forearm; rb1 11:40 Follow up: Response: No adverse reaction; Pain is unchanged, physician notified rb1 11:25 Drug: Zofran 4 mg Route: IVP; Site: left forearm; rb1 11:40 Follow up: Response: No adverse reaction rb1 12:19 Drug: morphine 4 mg Route: IVP; Site: left antecubital; rb1 12:38 Follow up: Response: No adverse reaction; Pain is decreased rb1 15:40 Drug: morphine 4 mg Route: IVP; Site: left forearm; rb1 15:55 Follow up: Response: No adverse reaction; Pain is decreased rb1 Disposition: 16:46 Co-signature as Attending Physician, Manpreet Nina MD I agree with the assessment and maegan plan of care. Disposition: 03/04/19 13:04 Hospitalization ordered by Bipin Shook for Inpatient Admission. Preliminary diagnosis is Acute pancreatitis. - Bed requested for Telemetry/MedSurg (Inpatient). - Status is Inpatient Admission. rb1 - Condition is Stable. - Problem is an acute exacerbation. - Symptoms have improved. UTI on Admission? No Signatures: Dispatcher [employer] [facility] Manpreet Nina MD MD cha Mickail, Joel, PA PA Carson Hyde em1 Mary Walker, RN RN ss Adelina Ramesh, RN RN rb1 Corrections: (The following items were deleted from the chart) 14:50 13:04 Hospitalization Ordered by Bipin Shook MD for Inpatient Admission. Preliminary em1 diagnosis is Acute pancreatitis. Bed requested for Telemetry/MedSurg (Inpatient). Status is Inpatient Admission. Condition is Stable. Problem is an acute exacerbation. Symptoms have improved. UTI on Admission? No. jmm 16:43 14:50 03/04/2019 13:04 Hospitalization Ordered by Bipin Shook MD for Inpatient rb1 Admission. Preliminary diagnosis is Acute pancreatitis. Bed requested for Telemetry/MedSurg (Inpatient). Status is Inpatient Admission. Condition is Stable. Problem is an acute exacerbation. Symptoms have improved. UTI on Admission? No. em1
--- NOTE | 2019-03-04 13:06 | ER ---
Nurse's Notes [facility] Name: Alex Auguste Age: 38 yrs Sex: Male : 1980 Arrival Date: 03/04/2019 Time: 10:49 Bed 15 Private MD: Diagnosis: Acute pancreatitis Presentation: 03/04 10:55 Presenting complaint: Patient states: abd pain and nausea that began this morning. ss Patient believes he is having a pancreatitis flare up as he has had this in the past many times. Transition of care: patient was not received from another setting of care. Onset of symptoms was March 04, 2019. Risk Assessment: Do you want to hurt yourself or someone else? Patient reports no desire to harm self or others. Initial Sepsis Screen: Does the patient meet any 2 criteria? RR > 20 per min. HR > 90 bpm. Does the patient have a suspected source of infection? No. Patient's initial sepsis screen is negative. Care prior to arrival: None. 10:55 Method Of Arrival: Ambulatory ss 10:55 Acuity: [place] 2 ss Historical: - Allergies: 10:56 No Known Allergies; ss - PMHx: 10:56 Diabetes - IDDM; High Triglycerides; Hyperlipidemia; Pancreatitis; ss - PSHx: 10:56 Cholecystectomy; ss - Immunization history:: Adult Immunizations up to date. - Social history:: Smoking status: Patient uses tobacco products, smokes one-half pack cigarettes per day. - Ebola Screening: : Patient denies exposure to infectious person Patient denies travel to an Ebola-affected area in the 21 days before illness onset. Screenin:00 Abuse screen: Denies threats or abuse. Nutritional screening: No deficits noted. rb1 Tuberculosis screening: No symptoms or risk factors identified. Fall Risk None identified. Assessment: 11:00 General: Appears uncomfortable, Behavior is calm, cooperative, Denies fever. Pain: rb1 Complains of pain in epigastric area Pain radiates to back Pain currently is 10 out of 10 on a pain scale. Pain began 0600 this morning. Neuro: Level of Consciousness is awake, alert, obeys commands, Oriented to person, place, time, situation. Cardiovascular: Capillary refill < 3 seconds is brisk in bilateral fingers. Respiratory: Airway is patent Respiratory effort is even, unlabored, Respiratory pattern is regular, symmetrical. GI: Reports nausea. : No signs and/or symptoms were reported regarding the genitourinary system. Derm: Skin is pink, warm \T\ dry. Musculoskeletal: Range of motion: intact in all extremities. 12:00 Reassessment: Patient appears in no apparent distress at this time. Patient and/or rb1 family updated on plan of care and expected duration. Pain level reassessed. Patient is alert, oriented x 3, equal unlabored respirations, skin warm/dry/pink. 12:56 Reassessment: Patient appears in no apparent distress at this time. Patient and/or rb1 family updated on plan of care and expected duration. Pain level reassessed. Patient is alert, oriented x 3, equal unlabored respirations, skin warm/dry/pink. 13:50 Reassessment: Patient appears in no apparent distress at this time. No changes from rb1 previously documented assessment. 14:30 Reassessment: Patient appears in no apparent distress at this time. Patient and/or rb1 family updated on plan of care and expected duration. Pain level reassessed. Patient is alert, oriented x 3, equal unlabored respirations, skin warm/dry/pink. 15:10 Reassessment: Called to give report but was unable to at this time, nurse not available.rb1 15:20 Reassessment: Called report to KECIA Beck. Information from the [facility] was given. All rb1 questions asked and answered. 15:30 Reassessment: Patient appears in no apparent distress at this time. Patient and/or rb1 family updated on plan of care and expected duration. Pain level reassessed. Patient is alert, oriented x 3, equal unlabored respirations, skin warm/dry/pink. Vital Signs: 10:56 BP 150 / 109; Pulse 121; Resp 21; Pulse Ox 100% on R/A; Weight 86.18 kg; Height 5 ft. ss 10 in. (177.80 cm); Pain 10/10; 11:56 BP 153 / 107; Pulse 100; Resp 20; Temp 98.0(TE); Pulse Ox 98% on R/A; Pain 10/10; rb1 12:56 BP 153 / 98; Pulse 62; Resp 14; Temp 98.0(TE); Pulse Ox 96% on R/A; rb1 13:50 BP 134 / 96; Pulse 101; Resp 16; Temp 98.1(TE); Pulse Ox 99% on R/A; Pain 7/10; rb1 14:30 BP 122 / 71; Pulse 97; Resp 18; Temp 98.0(TE); Pulse Ox 98% on R/A; Pain 6/10; rb1 15:30 BP 125 / 73; Pulse 95; Resp 17; Temp 98.2(O); Pulse Ox 100% on R/A; Pain 8/10; rb1 10:56 Body Mass Index 27.26 (86.18 kg, 177.80 cm) ED Course: 10:49 Patient arrived in ED. as 10:56 Triage completed. ss 10:56 Arm band placed on right wrist. ss 10:59 Joey Luis PA is PHCP. jmm 10:59 Manpreet Nina MD is Attending Physician. jmm 11:00 Patient has correct armband on for positive identification. Bed in low position. Call rb1 light in reach. Side rails up X 1. Pulse ox on. NIBP on. Warm blanket given. 11:18 Adelina Ramesh, RN is Primary Nurse. rb1 11:19 Initial lab(s) drawn, by mo, sent to lab. Inserted saline lock: 20 gauge in left ms forearm, using aseptic technique. Blood collected. 13:04 Bipin Shook MD is Hospitalizing Provider. [facility] 15:55 No provider procedures requiring assistance completed. Patient admitted, IV remains in rb1 place. Administered Medications: 11:25 Drug: NS 0.9% 1000 ml Route: IV; Rate: 1 bolus; Site: left forearm; rb1 12:44 Follow up: IV Status: Completed infusion rb1 11:25 Drug: morphine 4 mg Route: IVP; Site: left forearm; rb1 11:40 Follow up: Response: No adverse reaction; Pain is unchanged, physician notified rb1 11:25 Drug: Zofran 4 mg Route: IVP; Site: left forearm; rb1 11:40 Follow up: Response: No adverse reaction rb1 12:19 Drug: morphine 4 mg Route: IVP; Site: left antecubital; rb1 12:38 Follow up: Response: No adverse reaction; Pain is decreased rb1 15:40 Drug: morphine 4 mg Route: IVP; Site: left forearm; rb1 15:55 Follow up: Response: No adverse reaction; Pain is decreased rb1 Outcome: 13:04 Decision to Hospitalize by Provider. jmm 15:55 Patient left the ED. rb1 15:55 Admitted to Med/surg accompanied by tech, family with patient, via wheelchair, room rb1 223, with chart, Report called to KECIA Beck 15:55 Condition: stable 15:55 Instructed on the need for admit. Signatures: Joey Luis PA PA jmm Martinez, Amelia as Solis, Maria ms Smirch, Shelby, RN RN Adelina Ramesh RN RN rb1 Corrections: (The following items were deleted from the chart) 16:44 16:43 Patient left the ED. rb1 rb1
[2019-03-04] MEDS ORDERED: MORPHINE 4 MG/ML SYR IV PRN (15:40)
--- NOTE | 2019-03-04 15:51 | RAD REPORT ---
EXAM DESCRIPTION: CT - Abdomen W Contrast - 03/04/2019 3:30 pm CLINICAL HISTORY: Abdominal pain COMPARISON: Abdomen Pelvis W Contrast dated 05/29/2018; Abdomen Pelvis W Contrast dated 8; Abdomen Pelvis W Contrast dated 02/23/2018; Abdomen Pelvis W Contrast dated 08/23/2017 TECHNIQUE: Biphasic, helical CT imaging of the abdomen was performed following oral and 100 ml non-i onic IV contrast. All CT scans are performed using dose optimization technique as appropriate and may include automated exposure control or mA/KV adjustment according to patient size. FINDINGS: No suspicious findings in the lung bases. Liver is borderline to mild fatty infiltrated. No focal liver lesion. Cholecystectomy clips are prese nt. No biliary tree dilatation. Splenomegaly is present. No focal splenic finding. Numerous dilated v eins are seen in the midline and left-side upper abdomen. Mild edema and stranding changes surround the body of the pancreas. A 4 centimeter pancreatic tail ps eudocyst has not changed. No abscess. Symmetric renal function is seen with no hydronephrosis or suspicious renal mass. No adrenal gland a bnormality. No dilated bowel loops or bowel wall thickening. No free air or pneumatosis. No hernia, mass or bulk y lymphadenopathy. No suspicious bony findings. IMPRESSION: Mild acute pancreatitis not substantially different from May 2018 imaging. No change to the pancreatic tail pseudocyst.
--- NOTE | 2019-03-04 16:17 | RAD REPORT ---
EXAM DESCRIPTION: US - Abdomen Exam Complete - 03/04/2019 4:00 pm CLINICAL HISTORY: abdominal pain COMPARISON: Abdomen W Contrast dated 03/04/2019 FINDINGS: Gallbladder size is normal. No gallstones, wall thickening or pericholecystic fluid. Commo n bile duct is normal with no common duct stone identified. The liver is 18 cm. No suspicious liver p arenchymal finding. Doppler evaluation shows normal waveform, velocity and flow direction of the port al vein. The pancreas is too obscured by bowel gas for assessment. Pancreatitis findings were seen on CT imaging. Splenomegaly is present to nearly 19 cm. No focal splenic lesion. No hydronephrosis or suspicious mass in either kidney. Aorta is normal is size. No ascites or bulky lymphadenopathy. IMPRESSION: No gallbladder or biliary tree abnormality. Splenomegaly to 19 cm. Pancreas is too obscured by bowel gas for assessment. Mild pancreatitis seen on the earlier CT study.
[2019-03-04 16:22] VITALS: BMI 27.2
--- NOTE | 2019-03-04 16:22 | P.HP ---
Certification for Inpatient Patient admitted to: Inpatient Practitioner: I am a practitioner with admitting privileges, knowledge of patient current condition, hospital course, and medical plan of care. Services: Services provided to patient in accordance with Admission requirements found in Title 42 Section 412.3 of the Code of Federal Regulations Patient History Date of Service: 03/04/19 Reason for admission: Abdominal pain History of Present Illness: This is a 38-year-old male with history of pancreatitis, hypertriglyceridemia, diabetes mellitus type 2 and hypertension who came in with complaints of epigastric pain that started this morning. He rates it 10 in 10, describes it as a sharp type pain that radiates to the back from the epigastric area. He states that he does feels like similar to his prior pancreatitis episodes. He is currently being treated with insulin, gemfibrozil and niacin. He states that he has been compliant with his medications but his insulin was changed to 70/30 about 9-10 months ago due to insurance reasons and since then he has not been having good sugar control. He denies any chest pain, shortness of breath, headache, vision changes, speech changes, lightheadedness, dizziness, diarrhea, nausea, vomiting or complaints. In the ER, blood pressure was 150/109, tachycardic at 121, respirations of 21, 100% on room air with a BMI of 27.26. Labs remarkable for blood glucose of 274 , lipase of 3831. He received Zofran, morphine and IV fluids in the ER. He was admitted for further management of pancreatitis. At the time of my exam, he is alert oriented x3, in mild distress due to pain. He was hemodynamically stable with improved heart rate and blood pressures. Allergies No Known Drug Allergies Allergy (Verified 05/29/18 03:33) NONE Home medications list reviewed: Yes Home Medications: Gemfibrozil [Lopid*] 1 tab PO BID 05/29/18 Pantoprazole [Protonix Tab*] 1 tab PO BEDTIME 05/29/18 Trazodone HCl 1 tab PO BEDTIME PRN 05/29/18 Amitriptyline [Elavil] 50 mg PO BEDTIME 03/04/19 Buspirone HCl [Buspar] 10 mg PO BID 03/04/19 Fluoxetine HCl 20 mg PO DAILY 03/04/19 Gabapentin [Neurontin] 800 mg PO TID 03/04/19 Insuln Asp Prt/Insulin Aspart [Novolog Mix 70-30 Vial] 30 unit SQ DAILY Insuln Asp Prt/Insulin Aspart [Novolog Mix 70-30 Vial] 40 unit SQ 1700 03/04/19 Niacin (Inositol Niacinate) [Niacin 500 mg Capsule] 500 mg PO BEDTIME 03/04/19 - Past Medical/Surgical History Diabetic: Yes -: pancreatitis due to high triglycerides x4 yrs -: diabetic x5 yrs -: pancreatitis -: cholecystectomy -: fx wrist -: knee surg - Family History Mother -: Heart disease Notes: Recent [place] - Social History Alcohol use: No CD- Drugs: No Caffeine use: No Review of Systems 10-point ROS is otherwise unremarkable Physical Examination - Physical Exam General: Alert, In no apparent distress, Oriented x3 HEENT: Atraumatic, PERRLA, Mucous membr. moist/pink, EOMI, Sclerae nonicteric Neck: Supple, 2+ carotid pulse no bruit, No LAD, Without JVD or thyroid abnormality Respiratory: Clear to auscultation bilaterally, Normal air movement Cardiovascular: Regular rate/rhythm, Normal S1 S2 Gastrointestinal: Normal bowel sounds, Tenderness Musculoskeletal: No tenderness Integumentary: No rashes Neurological: Normal gait, Normal speech, Normal strength at 5/5 x4 extr, Normal tone, Normal affect Lymphatics: No axilla or inguinal lymphadenopathy - Studies Laboratory Data (last 24 hrs) 03/04/19 11:18: Procalcitonin < 0.05 03/04/19 11:18: Lactic Acid 0.6 03/04/19 11:18: Creatinine 0.84 03/04/19 11:18: WBC 5.7, RBC 4.87, Hgb 15.1, Hct 40.4, MCV 83.1, MCH 31.1, MCHC 37.4 H, RDW 12.5, Plt Count 136 L, MPV 7.2 L, Neutrophils % 76.3 H, Lymphocytes % 17.9, Monocytes % 3.5, Eosinophils % 1.4, Basophils % 0.9, Absolute Neutrophils 4.3, Absolute Lymphocytes 1.0, Absolute Monocytes 0.2, Absolute Eosinophils 0.1, Absolute Basophils 0.0 03/04/19 11:18: Sodium 138, Potassium 4.0, Chloride 106, Carbon Dioxide 24, BUN 16, Creatinine 0.88, Estimated GFR > 90, Glucose 274 H, Calcium 8.6, Total Bilirubin 0.7, Direct Bilirubin 0.1, AST 24, ALT 24, Alkaline Phosphatase 82, Serum Total Protein 7.4, Albumin 4.0, Globulin 3.4, Albumin/Globulin Ratio 1.2, Lipase 3831 H Assessment and Plan - Problems (Diagnosis) (1) Acute pancreatitis Onset Date: 03/16/17 Current Visit: No Status: Acute Plan: Acute pancreatitis on chronic pancreatitis most likely secondary to hypertriglyceridemia. -NPO, IV fluids with Pain management for pancreatitis -lipid panel pending -CT scan shows mild pancreatitis, pancreatic pseudocyst status similar to 2018 imaging. -abdominal ultrasound shows splenomegaly and no gallbladder abnormalities. Qualifiers: Pancreatitis type: other Acute pancreatitis complication: no infection or necrosis Qualified Code(s): K85.80 - Other acute pancreatitis without necrosis or infection (2) Hypertriglyceridemia Onset Date: 03/16/17 Current Visit: Yes Status: Acute (3) Diabetes mellitus Onset Date: 03/16/17 Current Visit: No Status: Chronic Plan: Accu-Cheks and mild sliding scale insulin. Will monitor and adjust as needed -resume home insulin Qualifiers: Diabetes mellitus type: type 2 Diabetes mellitus usp insulin use: with terminal computer operator use Diabetes mellitus complication status: with hyperglycemia Qualified Code(s): E11.65 - Type 2 diabetes mellitus with hyperglycemia; Z79.4 - termination clerk (current) use of insulin (4) GERD (gastroesophageal reflux disease) Current Visit: No Status: Chronic Plan: Will start PPI Qualifiers: Esophagitis presence: without esophagitis Qualified Code(s): K21.9 - Gastro -esophageal reflux disease without esophagitis (5) Pancreatic pseudocyst/cyst Onset Date: 03/16/17 Current Visit: No Status: Chronic Plan: Stable on imaging (6) Splenomegaly Current Visit: No Status: Chronic Plan: Stable on imaging - Plan DVT prophylaxis: Lovenox GI prophylaxis: Protonix Diet: NPO Disposition: Pending symptomatic improvement. Discharge Plan: Home Plan to discharge in: Greater than 2 days - Advance Directives Does patient have a Living Will: No Does patient have a Durable POA for Healthcare: No Time Spent Managing Pts Care (In Minutes): 55
[2019-03-04] MEDS: INSULIN -REGULAR HUMAN 50 UNIT/0.5 ML ML SQ SCH ×2 (16:30→19:53)
[2019-03-04] MEDS: NA CHLORIDE 0.9% 1,000 ML IV SCH ×2 (16:32→23:43)
[2019-03-04] MEDS: HYDROMORPHONE HCL 1 MG/ML INJ IV PRN ×2 (19:45→23:43)
[2019-03-04] MEDS: AMITRIPTYLINE 50 MG TAB PO SCH (19:53)
[2019-03-04] MEDS: GABAPENTIN 400 MG CAP PO SCH (19:53)
[2019-03-04] MEDS: BUSPIRONE HCL 5 MG TABLET PO SCH (19:53)
[2019-03-04] MEDS ORDERED: TRAZODONE 50 MG TABLET PO PRN (21:00)
[2019-03-04] MEDS: NIACIN 500 MG PO SCH (21:00)
[2019-03-04 22:44] LABS: Urine Appearance CLEAR; Urine Bilirubin NEGATIVE (NEG); Urine Blood NEGATIVE (NEG); Urine Color YELLOW; Urine Glucose 2+ (NEG); Urine Protein NEGATIVE (NEG); Urine Specific Gravity >=1.030 (1.005-1.030)
[2019-03-04 22:55] LABS: Urine Microscopic Reflex NO UMIC
[2019-03-05] MEDS ORDERED: DIPHENHYDRAMINE 25 MG TAB/CAP PO ONE (00:22)
[2019-03-05] MEDS: INSULIN -REGULAR HUMAN 50 UNIT/0.5 ML ML SQ SCH ×5 (01:43→23:56)
[2019-03-05] MEDS: HYDROMORPHONE HCL 1 MG/ML INJ IV PRN ×6 (03:50→23:48)
[2019-03-05] MEDS: NA CHLORIDE 0.9% 1,000 ML IV SCH ×3 (05:43→22:16)
[2019-03-05 06:53] LABS: Absolute Lymphocytes (CBC) 0.6 K/uL (0.7-4.9); Basophils % 0.5 % (0-1.3); Lymphocytes % 21.8 % (15.3-44.8); MPV 7.2 fL (7.6-11.3); RBC Red Blood Cell Count 4.34 M/uL (4.33-5.43)
[2019-03-05 07:00] LABS: Magnesium 2.1 mg/dL (1.8-2.4); Phosphorus 2.8 mg/dL (2.5-4.9)
[2019-03-05] MEDS: GABAPENTIN 400 MG CAP PO SCH ×3 (07:59→19:47)
[2019-03-05] MEDS: FLUOXETINE 20 MG CAP PO SCH (07:59)
[2019-03-05] MEDS: ENOXAPARIN 40 MG/0.4 ML SQ SCH (07:59)
[2019-03-05] MEDS: ONDANSETRON 4 MG/2 ML VIAL IV PRN ×2 (08:03→19:58)
[2019-03-05] MEDS: BUSPIRONE HCL 5 MG TABLET PO SCH ×2 (08:03→19:47)
[2019-03-05] MEDS: HUMALOG MIX 75/25 100 UNITS/ML SQ SCH ×2 (08:04→16:01)
--- NOTE | 2019-03-05 10:43 | P.PN ---
Subjective Date of Service: 03/05/19 Chief Complaint: Abdominal pain Subjective: Improving Patient seen and examined at bedside. Chart reviewed and case discussed with nursing staff. Patient reports pain still there, but controlled with dilaudid. Still with intermittent nausea. No acute events noted overnight. Did note soda and drinks in patient's room but patient states it's his 's soda and reports that he has not been eating or drinking anything. Review of Systems 10-point ROS is otherwise unremarkable Physical Examination - Vital Signs Temperature: 96.9 F Blood Pressure: 142/91 Pulse: 95 Respirations: 18 Pulse Ox (%): 98 - Physical Exam General: Alert, In no apparent distress, Oriented x3 HEENT: Atraumatic, PERRLA, EOMI Neck: Supple, JVD not distended Respiratory: Clear to auscultation bilaterally, Normal air movement Cardiovascular: Regular rate/rhythm, Normal S1 S2 Gastrointestinal: Normal bowel sounds, Tenderness Musculoskeletal: No tenderness Integumentary: No rashes Neurological: Normal speech, Normal tone, Normal affect Lymphatics: No axilla or inguinal lymphadenopathy - Studies Laboratory Data (last 24 hrs) 03/04/19 11:18: Creatinine 0.84 03/04/19 11:18: WBC 5.7, Hgb 15.1, Hct 40.4, Plt Count 136 L 03/04/19 11:18: Sodium 138, Potassium 4.0, BUN 16, Creatinine 0.88, Glucose 274 H, Total Bilirubin 0.7, AST 24, ALT 24, Alkaline Phosphatase 82, Lipase 3831 H Assessment And Plan - Current Problems (Diagnosis) (1) Acute pancreatitis Onset Date: 03/16/17 Current Visit: No Status: Acute Plan: Acute pancreatitis on chronic pancreatitis most likely secondary to hypertriglyceridemia. -NPO, IV fluids with Pain management for pancreatitis -lipid panel still pending -CT scan shows mild pancreatitis, pancreatic pseudocyst status similar to 2018 imaging. -abdominal ultrasound shows splenomegaly and no gallbladder abnormalities. Qualifiers: Pancreatitis type: other Acute pancreatitis complication: no infection or necrosis Qualified Code(s): K85.80 - Other acute pancreatitis without necrosis or infection (2) Hypertriglyceridemia Onset Date: 03/16/17 Current Visit: Yes Status: Acute (3) Diabetes mellitus Onset Date: 03/16/17 Current Visit: No Status: Chronic Plan: Accu-Cheks and mild sliding scale insulin. Will monitor and adjust as needed -resume home insulin Qualifiers: Diabetes mellitus type: type 2 Diabetes mellitus skilled nursing insulin use: with skilled nursing use Diabetes mellitus complication status: with hyperglycemia Qualified Code(s): E11.65 - Type 2 diabetes mellitus with hyperglycemia; Z79.4 - custodial (current) use of insulin (4) GERD (gastroesophageal reflux disease) Current Visit: No Status: Chronic Plan: Will start PPI Qualifiers: Esophagitis presence: without esophagitis Qualified Code(s): K21.9 - Gastro -esophageal reflux disease without esophagitis (5) Pancreatic pseudocyst/cyst Onset Date: 03/16/17 Current Visit: No Status: Chronic Plan: Stable on imaging (6) Splenomegaly Current Visit: No Status: Chronic Plan: Stable on imaging - Plan DVT prophylaxis: Lovenox GI prophylaxis: Protonix Diet: NPO Disposition: Pending symptomatic improvement.
[2019-03-05 11:51] LABS: ALT/SGPT 283 U/L (12-78); Albumin 3.4 g/dL (3.4-5.0); Alkaline Phosphatase 136 U/L (45-117); BUN Blood Urea Nitrogen 11 mg/dL (7-18); Bicarbonate 27 mmol/L (21-32); Bilirubin Total 2.2 mg/dL (0.2-1.0); Glucose Level 148 mg/dL (74-106); HDL Cholesterol 17 mg/dL (40-60); LDL Cholesterol, Calculated ND (<130); Potassium 4.1 mmol/L (3.5-5.1); Protein, Total 6.7 g/dL (6.4-8.2); Sodium Level 138 mmol/L (136-145)
[2019-03-05 11:55] LABS: AST/SGOT 290 U/L (15-37)
[2019-03-05 12:06] LABS: LDL, Direct 47 mg/dL (100-129)
[2019-03-05] MEDS: AMITRIPTYLINE 50 MG TAB PO SCH (19:47)
[2019-03-05] MEDS: NIACIN 500 MG PO SCH (19:48)
[2019-03-06] MEDS: HYDROMORPHONE HCL 1 MG/ML INJ IV PRN ×5 (03:46→20:51)
[2019-03-06] MEDS: NA CHLORIDE 0.9% 1,000 ML IV SCH ×3 (05:42→22:11)
[2019-03-06] MEDS: INSULIN -REGULAR HUMAN 50 UNIT/0.5 ML ML SQ SCH ×3 (05:45→18:00)
[2019-03-06 06:01] LABS: Absolute Lymphocytes (CBC) 0.7 K/uL (0.7-4.9); Basophils % 1.1 % (0-1.3); Hematocrit 36.9 % (39.6-49.0); Lymphocytes % 32.5 % (15.3-44.8); MPV 7.2 fL (7.6-11.3); RBC Red Blood Cell Count 4.44 M/uL (4.33-5.43)
[2019-03-06 06:33] LABS: ALT/SGPT 253 U/L (12-78); AST/SGOT 137 U/L (15-37); Albumin 3.5 g/dL (3.4-5.0); Alkaline Phosphatase 159 U/L (45-117); BUN Blood Urea Nitrogen 8 mg/dL (7-18); Bicarbonate 30 mmol/L (21-32); Bilirubin Total 2.3 mg/dL (0.2-1.0); Glucose Level 162 mg/dL (74-106); Potassium 4.1 mmol/L (3.5-5.1); Protein, Total 6.9 g/dL (6.4-8.2); Sodium Level 138 mmol/L (136-145)
[2019-03-06 08:26] LABS: Blood Morphology Comment NOT SEEN (NOT SEEN); Platelet Estimate ADEQ; Urine White Blood Cell Casts OK
[2019-03-06] MEDS: FLUOXETINE 20 MG CAP PO SCH (08:27)
[2019-03-06] MEDS: BUSPIRONE HCL 5 MG TABLET PO SCH ×2 (08:27→20:04)
[2019-03-06] MEDS: GABAPENTIN 400 MG CAP PO SCH ×3 (08:27→20:04)
[2019-03-06] MEDS: ENOXAPARIN 40 MG/0.4 ML SQ SCH (08:28)
[2019-03-06] MEDS: HUMALOG MIX 75/25 100 UNITS/ML SQ SCH ×2 (08:35→17:00)
[2019-03-06] MEDS: ONDANSETRON 4 MG/2 ML VIAL IV PRN (12:19)
--- NOTE | 2019-03-06 12:23 | RAD REPORT ---
EXAM DESCRIPTION: MRI - Cholangiogram - 03/06/2019 12:10 pm CLINICAL HISTORY: elevated Tbili with LFT's Abdominal pain, pancreatitis COMPARISON: Abdomen Exam Complete dated 03/04/2019; Abdomen W Contrast dated 03/04/2019; Abdomen Pel vis W Contrast dated 05/29/2018; Abdomen Pelvis W Contrast dated 02/28/2018; Abdomen Pelvis W Cont rast dated 02/23/2018; Abdomen Pelvis W Contrast dated 03/13/2017; Abdomen Pelvis W Contrast dated FINDINGS: Three-dimensional MRCP was performed using maximum intensity projection reconstruction on the same work station. No intrahepatic biliary tree dilatation is seen. The common bile duct is normal caliber without evide nce of retained stone, stricture or mass. Cholecystectomy. Numerous prominent vessels in the left upper quadrant noted suggesting chronic splen ic vein attenuation. The spleen is mildly enlarged in size. 4 cm lesion in the tail of the pancreas appears unchanged rela tive to recent CT examination. IMPRESSION: No significant biliary tree abnormality is identified. Cholecystectomy.
[2019-03-06] MEDS ORDERED: TRAMADOL HCL 50 MG TAB PO PRN (14:42)
--- NOTE | 2019-03-06 15:45 | P.PN ---
Subjective Date of Service: 03/06/19 Chief Complaint: Abdominal pain Pt seen and examined at bedside. Chart Reviewed. Case DW with Pt at bedside regarding the need MRCP to evaluated for Further GI etiology. In agreement. Denied N/V or Diarrhea. C/o Pain still Review of Systems 10-point ROS is otherwise unremarkable Physical Examination - Vital Signs Temperature: 97.1 F Blood Pressure: 163/90 Pulse: 97 Respirations: 17 Pulse Ox (%): 96 - Physical Exam General: Alert, In no apparent distress HEENT: Atraumatic, PERRLA, EOMI Neck: Supple, JVD not distended Respiratory: Clear to auscultation bilaterally, Normal air movement Cardiovascular: Regular rate/rhythm, Normal S1 S2 Gastrointestinal: Normal bowel sounds, No tenderness Musculoskeletal: No tenderness Integumentary: No rashes Neurological: Normal speech, Normal tone, Normal affect Lymphatics: No axilla or inguinal lymphadenopathy - Studies Medications List Reviewed: Yes Assessment And Plan - Current Problems (Diagnosis) (1) Acute pancreatitis Onset Date: 03/16/17 Current Visit: No Status: Acute Plan: Acute pancreatitis on chronic pancreatitis most likely secondary to hypertriglyceridemia. -NPO, IV fluids with Pain management for pancreatitis -lipid panel with Elevated TG's -CT scan shows mild pancreatitis, pancreatic pseudocyst status similar to 2018 imaging. -abdominal ultrasound shows splenomegaly and no gallbladder abnormalities. -MRCP negative for GI abnormality. NO changes from CT scan Resulted. 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 Diabetes mellitus complication status: with hyperglycemia Qualified Code(s): E11.65 - Type 2 diabetes mellitus with hyperglycemia; Z79.4 - retirement (current) use of insulin (4) Dyslipidemia Onset Date: 04/21/17 Current Visit: No Status: Chronic (5) GERD (gastroesophageal reflux disease) Current Visit: No Status: Chronic Qualifiers: Esophagitis presence: without esophagitis Qualified Code(s): K21.9 - Gastro -esophageal reflux disease without esophagitis (6) Splenomegaly Current Visit: No Status: Chronic - Plan DVT prophylaxis: Lovenox GI prophylaxis: Protonix Diet: NPO Disposition: Pending symptomatic improvement. Discharge Plan: Home Plan to discharge in: Greater than 2 days - Code Status/Comfort Care Code Status Assessed: Yes Critical Care: No
[2019-03-06] MEDS: HYDROCODONE/APAP 7.5/325 MG TAB PO PRN ×2 (15:48→22:11)
[2019-03-06] MEDS: AMITRIPTYLINE 50 MG TAB PO SCH (20:04)
[2019-03-06] MEDS: NIACIN 500 MG PO SCH (20:52)
[2019-03-07] MEDS: HYDROMORPHONE HCL 1 MG/ML INJ IV PRN ×3 (00:34→08:16)
[2019-03-07] MEDS: INSULIN -REGULAR HUMAN 50 UNIT/0.5 ML ML SQ SCH ×3 (00:34→12:00)
[2019-03-07] MEDS: NA CHLORIDE 0.9% 1,000 ML IV SCH (05:16)
[2019-03-07] MEDS: HYDROCODONE/APAP 7.5/325 MG TAB PO PRN (05:16)
[2019-03-07 05:57] LABS: Absolute Lymphocytes (CBC) 0.8 K/uL (0.7-4.9); Basophils % 0.8 % (0-1.3); Hematocrit 38.3 % (39.6-49.0); Lymphocytes % 34.6 % (15.3-44.8); MPV 6.9 fL (7.6-11.3); RBC Red Blood Cell Count 4.57 M/uL (4.33-5.43)
[2019-03-07 06:05] LABS: ALT/SGPT 172 U/L (12-78); AST/SGOT 43 U/L (15-37); Albumin 3.6 g/dL (3.4-5.0); Alkaline Phosphatase 155 U/L (45-117); BUN Blood Urea Nitrogen 8 mg/dL (7-18); Bicarbonate 29 mmol/L (21-32); Bilirubin Total 1.6 mg/dL (0.2-1.0); Glucose Level 170 mg/dL (74-106); Potassium 3.7 mmol/L (3.5-5.1); Protein, Total 7.3 g/dL (6.4-8.2); Sodium Level 139 mmol/L (136-145)
[2019-03-07] MEDS: BUSPIRONE HCL 5 MG TABLET PO SCH (08:15)
[2019-03-07] MEDS: ENOXAPARIN 40 MG/0.4 ML SQ SCH (08:16)
[2019-03-07] MEDS: FLUOXETINE 20 MG CAP PO SCH (08:16)
[2019-03-07] MEDS: GABAPENTIN 400 MG CAP PO SCH (08:16)
[2019-03-07] MEDS: HUMALOG MIX 75/25 100 UNITS/ML SQ SCH (08:17)
[2019-03-07] MEDS ORDERED: KCL 20 MEQ/100 mL IVPB 20 MEQ/100 ML BAG IV SCH (09:00)
[2019-03-07 10:25] VITALS: O2SAT 98
--- NOTE | 2019-03-07 11:19 | EKG ---
Test Date: 2019-03-07 Test Time: 08:58:03 Can Capper: MACI MEASUREMENT RESULTS: Intervals: Rate: 92 RI: 146 QRSD: 68 QT: 366 QTc: 452 [place]: P: 46 RI: 146 QRS: 36 T: 33 INTERPRETIVE STATEMENTS: Normal sinus rhythm Junctional ST depression, probably normal Borderline ECG Compared to ECG 02/23/2018 20:42:28 ST (T wave) deviation now present Sinus arrhythmia no longer present Electronically Signed On 03-07-19 11:18:38 CDT by Barak Redd
--- NOTE | 2019-03-07 13:59 | P.DS ---
Admission Date: 03/04/19 Discharge Date: 03/07/19 Disposition: ROUTINE DISCHARGE Discharge Condition: GOOD Reason for Admission: Abdominal pain Consultations: GI - Problems (1) Acute pancreatitis Onset Date: 03/16/17 Status: Acute Qualifiers: Pancreatitis type: alcohol induced Acute pancreatitis complication: no infection or necrosis Qualified Code(s): K85.20 - Alcohol induced acute pancreatitis without necrosis or infection (2) Hypertriglyceridemia Onset Date: 03/16/17 Status: Chronic (3) Diabetes mellitus Onset Date: 03/16/17 Status: Chronic Qualifiers: Diabetes mellitus type: type 2 Diabetes mellitus custodial insulin use: with director long term care use Diabetes mellitus complication status: with hyperglycemia Qualified Code(s): E11.65 - Type 2 diabetes mellitus with hyperglycemia; Z79.4 - alf (current) use of insulin (4) Dyslipidemia Onset Date: 04/21/17 Status: Chronic (5) GERD (gastroesophageal reflux disease) Status: Chronic Qualifiers: Esophagitis presence: without esophagitis Qualified Code(s): K21.9 - Gastro -esophageal reflux disease without esophagitis (6) Splenomegaly Status: Chronic Brief History of Present Illness: This is a 38-year-old male with history of pancreatitis, hypertriglyceridemia, diabetes mellitus type 2 and hypertension who came in with complaints of epigastric pain that started this morning. He rates it 10 in 10, describes it as a sharp type pain that radiates to the back from the epigastric area. He states that he does feels like similar to his prior pancreatitis episodes. He is currently being treated with insulin, gemfibrozil and niacin. He states that he has been compliant with his medications but his insulin was changed to 70/30 about 9-10 months ago due to insurance reasons and since then he has not been having good sugar control. He denies any chest pain, shortness of breath, headache, vision changes, speech changes, lightheadedness, dizziness, diarrhea, nausea, vomiting or complaints. In the ER, blood pressure was 150/109, tachycardic at 121, respirations of 21, 100% on room air with a BMI of 27.26. Labs remarkable for blood glucose of 274 , lipase of 3831. He received Zofran, morphine and IV fluids in the ER. He was admitted for further management of pancreatitis. At the time of my exam, he is alert oriented x3, in mild distress due to pain. He was hemodynamically stable with improved heart rate and blood pressures. Hospital Course: Overall during the hospital stay patient remained stable Patient was admitted to the hospital initially for abdominal pain was found to have acute pancreatitis. Was started on IV fluids here in along with pain management and p.o. diet. Patient had a lipid panel done here in the hospital along with a CT scan of the abdomen to find out the etiology for pancreatitis. Etiology is most likely secondary to hypertriglyceridemia. Patient's CT scan was consistent with pancreatic pseudocyst no other acute abnormality were noted. After 24-48 hr of IV fluids. Patient had marked improvement in her symptoms. Patient while here in the hospital had elevated LFTs and thus had an MRCP done as well to rule out any gallstones versus gallbladder etiology causing him to have pancreatitis. MRCP was negative for any gallstones or any other acute abnormality. Patient does have a history of chronic pancreatitis secondary to hypertriglyceridemia and noncompliance with medication and dietary restrictions. Patient was educated extensively regarding this and demonstrate understanding and thus was discharged home under stable condition Vital Signs/Physical Exam: Temp Pulse Resp BP Pulse Ox 97.6 F 99 H 19 156/97 H 99 03/07/19 12:00 03/07/19 12:00 03/07/19 12:01 03/07/19 12:00 03/07/19 12:01 General: Alert, In no apparent distress HEENT: Atraumatic, PERRLA, EOMI Neck: Supple, JVD not distended Respiratory: Clear to auscultation bilaterally, Normal air movement Cardiovascular: Regular rate/rhythm, Normal S1 S2 Gastrointestinal: Normal bowel sounds, No tenderness Musculoskeletal: No tenderness Integumentary: No rashes Neurological: Normal speech, Normal tone, Normal affect Lymphatics: No axilla or inguinal lymphadenopathy Laboratory Data at Discharge: WBC 2.2 K/uL (4.3-10.9) L 03/07/19 05:31 Hgb 13.3 g/dL (13.6-17.9) L 03/07/19 05:31 Hct 38.3 % (39.6-49.0) L 03/07/19 05:31 Plt Count 128 K/uL (152-406) L 03/07/19 05:31 Sodium 139 mmol/L (136-145) 03/07/19 05:31 Potassium 3.7 mmol/L (3.5-5.1) 03/07/19 05:31 BUN 8 mg/dL (7-18) 03/07/19 05:31 Creatinine 0.76 mg/dL (0.55-1.3) 03/07/19 05:31 Glucose 170 mg/dL (74-106) H 03/07/19 05:31 Phosphorus 2.8 mg/dL (2.5-4.9) 03/05/19 06:33 Magnesium 2.1 mg/dL (1.8-2.4) 03/05/19 06:33 Total Bilirubin 1.6 mg/dL (0.2-1.0) H 03/07/19 05:31 AST 43 U/L (15-37) H 03/07/19 05:31 ALT 172 U/L (12-78) H 03/07/19 05:31 Alkaline Phosphatase 155 U/L (45-117) H 03/07/19 05:31 Triglycerides 1007 mg/dL (<150) H 03/05/19 06:33 Cholesterol 234 mg/dL (<200) H 03/05/19 06:33 LDL Cholesterol Direct 47 mg/dL (100-129) L 03/05/19 06:33 HDL Cholesterol 17 mg/dL (40-60) L 03/05/19 06:33 Cholesterol/HDL Ratio 13.76 03/05/19 06:33 Lipase 343 U/L (73-393) 03/05/19 06:33 Home Medications: Gemfibrozil [Lopid*] 1 tab PO BID 05/29/18 Pantoprazole [Protonix Tab*] 1 tab PO BEDTIME 05/29/18 Trazodone HCl 1 tab PO BEDTIME PRN 05/29/18 Amitriptyline [Elavil*] 50 mg PO BEDTIME 03/04/19 Buspirone HCl [Buspar] 10 mg PO BID 03/04/19 Fluoxetine HCl 20 mg PO DAILY 03/04/19 Gabapentin [Neurontin] 800 mg PO TID 03/04/19 Insuln Asp Prt/Insulin Aspart [Novolog Mix 70-30 Vial] 30 unit SQ DAILY Insuln Asp Prt/Insulin Aspart [Novolog Mix 70-30 Vial] 40 unit SQ 1700 03/04/19 Niacin (Inositol Niacinate) [Niacin 500 mg Capsule] 500 mg PO BEDTIME 03/04/19 Lipase/Protease/Amylase [Carter Leavitt 12,000 Units Capsule] 1 each PO BID #60 capsule. 03/07/19 New Medications: Lipase/Protease/Amylase [Carter Leavitt 12,000 Units Capsule] 1 each PO BID #60 capsule. Diet: [place] Activity: Ad harsha Followup: Gino Lira MD [Primary Care Provider] -
[2019-03-07 14:32] VITALS: BP 160/98; TEMP 96.7
[2019-03-07] MEDS ORDERED: LIPASE/PROTEASE/AMYLASE CAP PO SCH ×2 (21:00)
== END 2019-03-07 13:08 | disposition home or self-care (01) | DRG 439 ==
LOC: ER 10:47 → ERHOLD 13:42 → 2ND 15:39
PROVIDERS: ADMIT Family Medicine; ATTEND Family Medicine
DX: K85.80 Other acute pancreatitis without necrosis or infection (principal); K86.3 Pseudocyst of pancreas; E78.1 Pure hyperglyceridemia; E11.65 Type 2 diabetes mellitus with hyperglycemia; E78.5 Hyperlipidemia, unspecified; K21.9 Gastro-esophageal reflux disease without esophagitis; R16.1 Splenomegaly, not elsewhere classified; Z79.4 Long term (current) use of insulin
CPT/HCPCS: 36415; 74160; 74181; 76700; 80048; 80053; 80061; 80076; 81003; 82962; 83605; 83690; 83735; 84100; 84145; 85025; 93005; 94760; 96361; 96374; 96375; 99285; J1170; J1650; J2405; J7030

== ENCOUNTER 2019-04-23 15:23 | Emergency (ER) | payer SELFPAY ==
[2019-04-23] MEDS ORDERED: NA CHLORIDE 0.9% 1,000 ML ONE ×2 (16:04→17:17)
[2019-04-23] MEDS ORDERED: FAMOTIDINE 20 MG/2 ML VIAL IV ONE (16:04)
[2019-04-23] MEDS ORDERED: INSULIN -REGULAR HUMAN 50 UNIT/0.5 ML ML ONE (16:04)
[2019-04-23 16:47] LABS: Absolute Lymphocytes (CBC) 1.3 K/uL (0.7-4.9); Basophils % 1.8 % (0-1.3); Hematocrit 41.2 % (39.6-49.0); MPV 7.6 fL (7.6-11.3); RBC Red Blood Cell Count 4.92 M/uL (4.33-5.43)
[2019-04-23 16:52] LABS: Albumin 4.3 g/dL (3.4-5.0); Bilirubin Direct 0.2 mg/dL (0-0.2); Bilirubin Total 0.7 mg/dL (0.2-1.0); Potassium 3.8 mmol/L (3.5-5.1); Protein, Total 7.5 g/dL (6.4-8.2)
[2019-04-23 17:36] LABS: Urine Blood NEGATIVE (NEG); Urine Glucose 2+ (NEG); Urine Protein NEGATIVE (NEG); Urine Specific Gravity 1.015 (1.005-1.030)
[2019-04-23] MEDS ORDERED: METOPROLOL TARTRATE 5 MG/5 ML INJ IV ONE ×2 (18:19→18:47)
[2019-04-23] MEDS ORDERED: IBUPROFEN 400 MG TAB ONE (18:25)
--- NOTE | 2019-04-23 18:39 | ER ---
Nurse's Notes [facility] Name: Alex Auguste Age: 38 yrs Sex: Male : 1980 Arrival Date: 04/23/2019 Time: 15:26 Bed 15 Private MD: Diagnosis: Chest pain, unspecified;Hyperglycemia, unspecified;Dehydration;Hypertensive heart disease Presentation: 04/23 15:33 Presenting complaint: Patient states: My HR and BP have been running high and last la1 night I started to get chest pain. I have also had pancreatitis a lot because my trigs are always really high. Transition of care: patient was not received from another setting of care. Onset of symptoms was April 23, 2019. Risk Assessment: Do you want to hurt yourself or someone else? Patient reports no desire to harm self or others. Initial Sepsis Screen: Does the patient meet any 2 criteria? HR > 90 bpm. Does the patient have a suspected source of infection? No. Patient's initial sepsis screen is negative. Care prior to arrival: None. 15:33 Method Of Arrival: Ambulatory la1 15:33 Acuity: [place] 2 la1 Historical: - Allergies: 15:34 No Known Allergies; la1 - PMHx: 15:34 Diabetes - IDDM; High Triglycerides; Hyperlipidemia; Pancreatitis; la1 - Immunization history:: Adult Immunizations up to date. - Social history:: Smoking status: Patient/guardian denies using tobacco. - Ebola Screening: : No symptoms or risks identified at this time. Screenin:51 Abuse screen: Denies threats or abuse. Denies injuries from another. Nutritional jl7 screening: No deficits noted. Tuberculosis screening: No symptoms or risk factors identified. Fall Risk IV access (20 points). Total German Fall Scale indicates No Risk (0-24 pts). Assessment: 15:51 General: Appears in no apparent distress. uncomfortable, Behavior is calm, cooperative, jl7 appropriate for age. Pain: Complains of pain in right low back Pain does not radiate. Pain currently is 8 out of 10 on a pain scale. Quality of pain is described as aching, Pain began 1 day ago. Is continuous. Neuro: Level of Consciousness is awake, alert, obeys commands, Oriented to person, place, time, situation. Cardiovascular: Reports chest pain, Patient's skin is warm and dry. Respiratory: Airway is patent Respiratory effort is even, unlabored, Respiratory pattern is regular, symmetrical. Derm: Skin is pink, warm \\T\\ dry. 17:00 Reassessment: Patient appears in no apparent distress at this time. No changes from jl7 previously documented assessment. Patient and/or family updated on plan of care and expected duration. Pain level reassessed. Patient is alert, oriented x 3, equal unlabored respirations, skin warm/dry/pink. 18:00 Reassessment: Patient appears in no apparent distress at this time. No changes from jl7 previously documented assessment. Patient and/or family updated on plan of care and expected duration. Pain level reassessed. Patient is alert, oriented x 3, equal unlabored respirations, skin warm/dry/pink. 18:45 Reassessment: ERD notified of unchanged BP, see MAR for orders. jl7 19:05 Reassessment: Pt states "I feel a whole lot better than when I came in here.". jl7 Vital Signs: 15:34 BP 158 / 108; Pulse 130; Resp 16; Temp 98.3; Pulse Ox 100% on R/A; Weight 83.91 kg; la1 Height 5 ft. 10 in. (177.80 cm); 16:18 BP 150 / 100; Pulse 116; Resp 19 S; Pulse Ox 98% on R/A; Pain 8/10; jl7 18:00 BP 163 / 114; Pulse 113; Resp 19 S; Pulse Ox 100% on R/A; jl7 18:45 BP 161 / 117; Pulse 96; Resp 22 S; Pulse Ox 99% on R/A; jl7 19:12 BP 153 / 112; Pulse 88; Resp 16 S; Pulse Ox 100% on R/A; jl7 15:34 Body Mass Index 26.54 (83.91 kg, 177.80 cm) la1 ED Course: 15:26 Patient arrived in ED. mr 15:28 Cole Rogers MD is Attending Physician. kdr 15:33 Yash Galvan, RN is Primary Nurse. la1 15:34 Triage completed. la1 15:35 Arm band placed on right wrist. la1 15:38 Jose Weinstein, RN is Primary Nurse. jl7 15:51 Patient has correct armband on for positive identification. Bed in low position. Call jl7 light in reach. Side rails up X 1. rugby league footballer on. Pulse ox on. NIBP on. 15:51 Patient maintains SpO2 saturation greater than 95% on room air. jl7 15:59 Initial lab(s) drawn, by ED staff, sent to lab. Inserted saline lock: 20 gauge in right kj1 antecubital area, using aseptic technique. Blood collected. 17:19 BS 296. lt1 19:05 No provider procedures requiring assistance completed. IV discontinued, intact, jl7 bleeding controlled, No redness/swelling at site. Pressure dressing applied. Administered Medications: 16:08 Drug: NS 0.9% 1000 ml Route: IV; Rate: 1 bolus; Site: right antecubital; jl7 17:10 Follow up: IV Status: Completed infusion; IV Intake: 1000ml jl7 16:08 Drug: Pepcid 20 mg Route: IVP; Site: right antecubital; jl7 17:37 Follow up: Response: No adverse reaction jl7 16:10 Drug: Insulin Regular Human 8 units {Co-Signature: la1 (Yash Galvan RN).} Route: IVP; jl7 Site: right antecubital; 17:20 Follow up: Response: Blood sugar is lowered jl7 17:25 Drug: NS 0.9% 1000 ml Route: IV; Rate: 1 bolus; Site: right antecubital; jl7 18:30 Follow up: Response: No adverse reaction; IV Status: Completed infusion; IV Intake: jl7 1000ml 18:22 Drug: Motrin 800 mg Route: PO; jl7 19:13 Follow up: Response: No adverse reaction; Pain is decreased jl7 18:25 Drug: Lopressor 5 mg Route: IVP; Site: right antecubital; jl7 18:45 Follow up: Response: Blood pressure is unchanged jl7 18:48 Drug: Lopressor 5 mg Route: IVP; Site: right antecubital; jl7 19:14 Follow up: Response: No adverse reaction; Blood pressure is lowered jl7 Intake: 17:10 IV: 1000ml; Total: 1000ml. jl7 18:30 IV: 1000ml; Total: 2000ml. jl7 Outcome: 18:38 Discharge ordered by . kdr 19:05 Discharged to home ambulatory. jl7 19:05 Condition: stable 19:05 Discharge instructions given to patient, family, Instructed on discharge instructions, follow up and referral plans. medication usage, Demonstrated understanding of instructions, follow-up care, medications, Prescriptions given X 2. 19:16 Patient left the ED. jl7 Signatures: Cole Rogers MD MD kdr Rivera, Rosalee mr Cole, Yash, RN RN la1 Jose Weinstein RN RN [email or web address] Nkechi Blanchard lt1 Demian, Melisa kj1 Yash Galvan RN [email or web address] Corrections: (The following items were deleted from the chart) 16:22 16:19 Initial lab(s) drawn, by ED staff, sent to lab. kj1 kj1 16: 16:04 Inserted saline lock: 20 gauge in right antecubital area, using aseptic kj1 technique. Blood collected. kj1
--- NOTE | 2019-04-23 18:40 | EDPHYS ---
Physician Documentation [facility] Name: Alex Auguste Age: 38 yrs Sex: Male : 1980 Arrival Date: 04/23/2019 Time: 15:26 Bed 15 Private MD: ED Physician Cole Rogers HPI: 04/23 16:11 This 38 yrs old Male presents to ER via Ambulatory with complaints of Chest kdr Pain. 16:14 The patient has been feeling poorly since last night. HE denies any recent change in kdr his meds but also states that since he changed the type pof insulin he was using, he has not had good control of his blood sugar. Onset: The symptoms/episode began/occurred gradually, last night. Severity of symptoms: At their worst the symptoms were mild in the emergency department the symptoms are unchanged. The patient has not experienced similar symptoms in the past. The patient has not recently seen a physician. Historical: - Allergies: 15:34 No Known Allergies; la1 - PMHx: 15:34 Diabetes - IDDM; High Triglycerides; Hyperlipidemia; Pancreatitis; la1 - Immunization history:: Adult Immunizations up to date. - Social history:: Smoking status: Patient/guardian denies using tobacco. - Ebola Screening: : No symptoms or risks identified at this time. ROS: 16:14 Constitutional: Negative for fever, chills, and weight loss, Eyes: Negative for injury, kdr pain, redness, and discharge, ENT: Negative for injury, pain, and discharge, Neck: Negative for injury, pain, and swelling, Abdomen/GI: Negative for abdominal pain, nausea, vomiting, diarrhea, and constipation, Back: Negative for injury and pain, : Negative for injury, bleeding, discharge, and swelling, MS/Extremity: Negative for injury and deformity, Skin: Negative for injury, rash, and discoloration, Neuro: Negative for headache, weakness, numbness, tingling, and seizure activity. Psych: Negative for depression, anxiety, suicide ideation, homicidal ideation, and hallucinations, Allergy/Immunology: Negative for hives, rash, and allergies, Endocrine: Negative for neck swelling, polydipsia, polyuria, polyphagia, and marked weight changes, Hematologic/Lymphatic: Negative for swollen nodes, abnormal bleeding, and unusual bruising. 16:14 Cardiovascular: Positive for chest pain, edema, palpitations. Exam: 16:14 Constitutional: This is a well developed, well nourished patient who is awake, alert, kdr and in no acute distress. Head/Face: Normocephalic, atraumatic. Eyes: Pupils equal round and reactive to light, extra-ocular motions intact. Lids and lashes normal. Conjunctiva and sclera are non-icteric and not injected. Cornea within normal limits. Periorbital areas with no swelling, redness, or edema. ENT: Nares patent. No nasal discharge, no septal abnormalities noted. Tympanic membranes are normal and external auditory canals are clear. Oropharynx with no redness, swelling, or masses, exudates, or evidence of obstruction, uvula midline. Mucous membranes moist. Neck: Trachea midline, no thyromegaly or masses palpated, and no cervical lymphadenopathy. Supple, full range of motion without nuchal rigidity, or vertebral point tenderness. No Meningismus. Chest/axilla: Normal chest wall appearance and motion. Nontender with no deformity. No lesions are appreciated. Cardiovascular: Regular rate and rhythm with a normal S1 and S2. No gallops, murmurs, or rubs. Normal PMI, no JVD. No pulse deficits. Respiratory: Lungs have equal breath sounds bilaterally, clear to auscultation and percussion. No rales, rhonchi or wheezes noted. No increased work of breathing, no retractions or nasal flaring. Abdomen/GI: Soft, non-tender, with normal bowel sounds. No distension or tympany. No guarding or rebound. No evidence of tenderness throughout. Back: No spinal tenderness. No costovertebral tenderness. Full range of motion. MS/ Extremity: Pulses equal, no cyanosis. Neurovascular intact. Full, normal range of motion. Neuro: Awake and alert, GCS 15, oriented to person, place, time, and situation. Cranial nerves II-XII grossly intact. Motor strength 5/5 in all extremities. Sensory grossly intact. Cerebellar exam normal. Normal gait. Psych: Awake, alert, with orientation to person, place and time. Behavior, mood, and affect are within normal limits. Vital Signs: 15:34 BP 158 / 108; Pulse 130; Resp 16; Temp 98.3; Pulse Ox 100% on R/A; Weight 83.91 kg; la1 Height 5 ft. 10 in. (177.80 cm); 16:18 BP 150 / 100; Pulse 116; Resp 19 S; Pulse Ox 98% on R/A; Pain 8/10; jl7 18:00 BP 163 / 114; Pulse 113; Resp 19 S; Pulse Ox 100% on R/A; jl7 18:45 BP 161 / 117; Pulse 96; Resp 22 S; Pulse Ox 99% on R/A; jl7 19:12 BP 153 / 112; Pulse 88; Resp 16 S; Pulse Ox 100% on R/A; jl7 15:34 Body Mass Index 26.54 (83.91 kg, 177.80 cm) la1 MDM: 16:14 Data reviewed: vital signs, nurses notes, lab test result(s), radiologic studies. kdr Counseling: I had a detailed discussion with the patient and/or guardian regarding: the historical points, exam findings, and any diagnostic results supporting the discharge/admit diagnosis, lab results, radiology results. 18:38 Patient medically screened. kdr 04/23 15:55 Order name: Basic Metabolic Panel; Complete Time: 16:54 kdr 04/23 15:55 Order name: CBC with Diff; Complete Time: 16:54 kdr 04/23 15:55 Order name: Creatinine for Radiology; Complete Time: 16:54 kdr 04/23 15:55 Order name: Hepatic Function; Complete Time: 16:54 kdr 04/23 15:55 Order name: Lipase; Complete Time: 16:54 kdr 04/23 16:00 Order name: Glucometer Result Nova; Complete Time: 17:50 jl7 04/23 16:35 Order name: Urine Dipstick--Ancillary (enter results); Complete Time: 17:50 eb 04/23 17:26 Order name: NOVA; Complete Time: 17:50 lt1 04/23 15:55 Order name: IV Saline Lock; Complete Time: 16:14 kdr 04/23 15:55 Order name: Labs collected and sent; Complete Time: 16:14 kdr 04/23 15:55 Order name: Urine Dipstick-Ancillary (obtain specimen); Complete Time: 16:14 kdr Administered Medications: 16:08 Drug: NS 0.9% 1000 ml Route: IV; Rate: 1 bolus; Site: right antecubital; jl7 17:10 Follow up: IV Status: Completed infusion; IV Intake: 1000ml 16:08 Drug: Pepcid 20 mg Route: IVP; Site: right antecubital; jl7 17:37 Follow up: Response: No adverse reaction jl7 16:10 Drug: Insulin Regular Human 8 units {Co-Signature: [email or web address] (Yash Galvan RN).} Route: IVP; jl7 Site: right antecubital; 17:20 Follow up: Response: Blood sugar is lowered jl7 17:25 Drug: NS 0.9% 1000 ml Route: IV; Rate: 1 bolus; Site: right antecubital; jl7 18:30 Follow up: Response: No adverse reaction; IV Status: Completed infusion; IV Intake: jl7 1000ml 18:22 Drug: Motrin 800 mg Route: PO; jl7 19:13 Follow up: Response: No adverse reaction; Pain is decreased jl7 18:25 Drug: Lopressor 5 mg Route: IVP; Site: right antecubital; jl7 18:45 Follow up: Response: Blood pressure is unchanged jl7 18:48 Drug: Lopressor 5 mg Route: IVP; Site: right antecubital; jl7 19:14 Follow up: Response: No adverse reaction; Blood pressure is lowered jl7 Disposition: 04/23/19 18:38 Discharged to Home. Impression: Chest pain, unspecified, Hyperglycemia, unspecified, Dehydration, Hypertensive heart disease. - Condition is Stable. - Discharge Instructions: Dehydration, Adult, Nonspecific Chest Pain, [id number], Hypertension, [id number], Hyperglycemia, Dgcj-[id number]-Fatk. - Prescriptions for Zofran 4 mg Oral Tablet - take 1 tablet by ORAL route every 4-6 hours As needed; 20 tablet. Metoprolol Tartrate 25 mg Oral Tablet - take 1 tablet by ORAL route 2 times per day with a meal; 20 tablet. - Medication Reconciliation Form, Thank You Letter form. - Follow up: Private Physician; When: 2 - 3 days; Reason: If symptoms return, Further diagnostic work-up, Recheck today's complaints, Continuance of care, Re-evaluation by your physician. - Problem is an acute exacerbation. - Symptoms have improved. Signatures: Dispatcher [employer] EDCole Persaud MD MD kdr Attema, Lee, RN RN la1 Jose Weinstein RN RN jl7 Yash Attema RN la1 Corrections: (The following items were deleted from the chart) 18:40 18:38 04/23/2019 18:38 Discharged to Home. Impression: Chest pain, unspecified. kdr Condition is Stable. Forms are Medication Reconciliation Form, Thank You Letter, Antibiotic Education, Prescription Opioid Use. Follow up: Private Physician; When: 2 - 3 days; Reason: If symptoms return, Further diagnostic work-up, Recheck today's complaints, Continuance of care, Re-evaluation by your physician. Problem is an acute exacerbation. Symptoms have improved. kdr 18:40 18:40 04/23/2019 18:38 Discharged to Home. Impression: Chest pain, unspecified; kdr Hyperglycemia, unspecified; Dehydration. Condition is Stable. Discharge Instructions: Nonspecific Chest Pain, [id number]. Forms are Medication Reconciliation Form, Thank You Letter, Antibiotic Education, Prescription Opioid Use. Follow up: Private Physician; When: 2 - 3 days; Reason: If symptoms return, Further diagnostic work-up, Recheck today's complaints, Continuance of care, Re-evaluation by your physician. Problem is an acute exacerbation. Symptoms have improved. kdr 19:16 18:40 04/23/2019 18:38 Discharged to Home. Impression: Chest pain, unspecified; jl7 Hyperglycemia, unspecified; Dehydration; Hypertensive heart disease. Condition is Stable. Discharge Instructions: Nonspecific Chest Pain, [id number]. Forms are Medication Reconciliation Form, Thank You Letter, Antibiotic Education, Prescription Opioid Use. Follow up: Private Physician; When: 2 - 3 days; Reason: If symptoms return, Further diagnostic work-up, Recheck today's complaints, Continuance of care, Re-evaluation by your physician. Problem is an acute exacerbation. Symptoms have improved. kdr
[2019-04-23 19:22] VITALS: TEMP 98.3
[2019-04-23 19:28] VITALS: BP 153/112; O2SAT 100
== END 2019-04-23 19:16 | disposition home or self-care (01) ==
LOC: ER 15:23
DX: I11.9 Hypertensive heart disease without heart failure (principal); R73.9 Hyperglycemia, unspecified; E86.0 Dehydration
CPT/HCPCS: 36415; 80048; 80076; 81003; 82962; 83690; 85025; 96361; 96374; 96375; 99285; J7030

== ENCOUNTER 2019-06-07 23:03 | Emergency (ER) | payer SELFPAY ==
[2012-03-06 01:58] VITALS: BP 138/67
--- OUTSIDE RECORDS SUMMARY | 2019-06-07 23:04 | XMS REPORT ---
:1980 [facility] Address [address] [place] [address] Dr. Loya [address] [place] [id number] Care Team Providers Name Role Phone Unavailable Unavailable Unavailable Problems This patient has no known problems. Allergies, Adverse Reactions, Alerts This patient has no known allergies or adverse reactions. Medications This patient has no known medications.
[2019-06-07] MEDS ORDERED: NA CHLORIDE 0.9% 1,000 ML ONE (23:31)
[2019-06-07] MEDS ORDERED: ONDANSETRON 4 MG/2 ML VIAL ONE (23:31)
[2019-06-07] MEDS ORDERED: MORPHINE 4 MG/ML SYR ONE (23:46)
[2019-06-07 23:59] LABS: Absolute Lymphocytes (CBC) 1.6 K/uL (0.7-4.9); Basophils % 0.6 % (0-1.3); Hematocrit 41.1 % (39.6-49.0); Lymphocytes % 22.7 % (15.3-44.8); MPV 7.5 fL (7.6-11.3); RBC Red Blood Cell Count 4.96 M/uL (4.33-5.43)
[2019-06-08 00:19] LABS: Albumin 4.1 g/dL (3.4-5.0); Bilirubin Direct 0.1 mg/dL (0-0.2); Bilirubin Total 0.6 mg/dL (0.2-1.0); Potassium 3.7 mmol/L (3.5-5.1); Protein, Total 7.4 g/dL (6.4-8.2)
[2019-06-08] MEDS ORDERED: MORPHINE 4 MG/ML SYR ONE (00:35)
[2019-06-08 01:40] LABS: HDL Cholesterol 21 mg/dL (40-60); LDL Cholesterol, Calculated ND (<130)
[2019-06-08] MEDS ORDERED: MAGNE/ALUM HYDROXD 30 ML UCUP ONE (01:42)
[2019-06-08] MEDS ORDERED: PANTOPRAZOLE 40 MG INJ ONE (01:42)
[2019-06-08] MEDS ORDERED: LIDOCAINE VISCOUS 2% SOLN 15 ML UDC ONE (01:43)
[2019-06-08 01:52] LABS: LDL, Direct 55 mg/dL (100-129)
--- NOTE | 2019-06-08 02:38 | ER ---
Nurse's Notes [facility] Name: Alex Auguste Age: 38 yrs Sex: Male : 1980 Arrival Date: 06/07/2019 Time: 23:05 Bed 20 Private MD: Diagnosis: Abdominal tenderness;Gastritis, unspecified Presentation: 06/07 23:11 Presenting complaint: Patient states: "I think my pancreatitis is coming back I've had aj1 it over 30 times" Patient reports epigastric pain for the past week. Reports N/V. Denies diarrhea. Denies fever. Transition of care: patient was not received from another setting of care. Onset of symptoms was June 07, 2019. Risk Assessment: Do you want to hurt yourself or someone else? Patient reports no desire to harm self or others. Initial Sepsis Screen: Does the patient meet any 2 criteria? HR > 90 bpm. No. Patient's initial sepsis screen is negative. Does the patient have a suspected source of infection? Yes: Acute abdominal pain. Care prior to arrival: None. 23:11 Method Of Arrival: Ambulatory aj 23:11 Acuity: [place] 3 aj1 Triage Assessment: 23:13 General: Appears in no apparent distress. uncomfortable, Behavior is calm, cooperative, aj1 appropriate for age. Pain: Complains of pain in epigastric area. Neuro: Level of Consciousness is awake, alert, obeys commands. Cardiovascular: Patient's skin is warm and dry. Respiratory: Airway is patent Respiratory effort is even, unlabored, Respiratory pattern is regular, symmetrical. Historical: - Allergies: 23:13 No Known Allergies; aj1 - Home Meds: 23:13 citalopram 20 mg tab 1 tab once daily [Active]; Creon Oral 1 cap 3 times per day aj1 [Active]; gemfibrozil 600 mg Oral tab 1 tab 2 times per day [Active]; Lantus 100 unit/mL Sub-Q soln 31 unit nightly [Active]; Lyrica 50 mg Oral cap 1 cap 3 times per day [Active]; Niacin Oral [Active]; Novolog 100 unit/mL Sub-Q soln sliding scale tid with meals [Active]; Prozac Oral [Active]; trazodone 100 mg Oral tab PRN sleep [Active]; - PMHx: 23:13 Diabetes - IDDM; High Triglycerides; Hyperlipidemia; Pancreatitis; aj1 - Immunization history:: Flu vaccine is not up to date. - Social history:: Smoking status: Patient uses tobacco products, smokes one-half pack cigarettes per day. - Ebola Screening: : Patient denies travel to an Ebola-affected area in the 21 days before illness onset. Screenin:32 Abuse screen: Denies threats or abuse. Denies injuries from another. Nutritional cc3 screening: No deficits noted. Tuberculosis screening: No symptoms or risk factors identified. Fall Risk Ambulatory Aid- None/Bed Rest/Nurse Assist (0 pts). Gait- Normal/Bed Rest/Wheelchair (0 pts) Mental Status- Oriented to own ability (0 pts). Assessment: 23:32 General: Appears in no apparent distress. uncomfortable, Behavior is calm, cooperative, cc3 appropriate for age. Pain: Complains of pain in abdomen and epigastric area Quality of pain is described as aching, crampy. Neuro: Level of Consciousness is awake, alert, obeys commands, Oriented to person, place, time, situation, Appropriate for age. Cardiovascular: Denies chest pain, Heart tones S1 S2 present Capillary refill < 3 seconds in bilateral fingers Patient's skin is warm and dry. Respiratory: Airway is patent Respiratory effort is even, unlabored, Respiratory pattern is regular, symmetrical, Breath sounds are clear bilaterally. GI: Abdomen is round non-distended, Bowel sounds present X 4 quads. Abd is soft X 4 quads Abdomen is tender to palpation in epigastric area. : No signs and/or symptoms were reported regarding the genitourinary system. EENT: No signs and/or symptoms were reported regarding the EENT system. Derm: Skin is intact, is healthy with good turgor, Skin is pink, warm \\T\\ dry. normal. Musculoskeletal: Circulation, motion, and sensation intact. Range of motion: intact in all extremities. 06/08 00:30 Reassessment: Patient appears in no apparent distress at this time. ED provider aware rr5 with order made and carried out. Patient states symptoms have not improved. 01:18 Reassessment: Patient appears in no apparent distress at this time. Patient and/or cc3 family updated on plan of care and expected duration. Pain level reassessed. Patient is alert, oriented x 3, equal unlabored respirations, skin warm/dry/pink. Patient states feeling better. Patient states symptoms have improved. 02:50 Reassessment: Patient appears in no apparent distress at this time. Patient and/or cc3 family updated on plan of care and expected duration. Pain level reassessed. Patient is alert, oriented x 3, equal unlabored respirations, skin warm/dry/pink. Dr. Jacobo discharged the patient home with prescriptions given. IV cannula removed and patient left ER vitally stable and ambulatory with his . No valuables left in the patient's room. Patient denies pain at this time. Patient states feeling better. Patient states symptoms have improved. Vital Signs: 06/07 23:13 BP 142 / 98; Pulse 115; Resp 20; Temp 97.4; Pulse Ox 100% on R/A; Weight 83.91 kg (R); aj1 Height 5 ft. 10 in. (177.80 cm) (R); Pain 9/10; 06/08 00:38 BP 141 / 103; Pulse 95; Resp 18; Pulse Ox 99% ; Pain 9/10; rr5 01:45 BP 137 / 96; Pulse 102; Resp 18 S; Pulse Ox 99% on R/A; cc3 02:30 BP 129 / 84; Pulse 98; Resp 17 S; Pulse Ox 98% on R/A; cc3 06/07 23:13 Body Mass Index 26.54 (83.91 kg, 177.80 cm) aj1 ED Course: 06/07 23:05 Patient arrived in ED. cl3 23:12 Triage completed. aj1 23:13 Arm band placed on Patient placed in an exam room. aj1 23:18 Sachin Jacobo MD is Attending Physician. tw4 23:32 Argenis Castellanos is Primary Nurse. cc3 23:32 Patient has correct armband on for positive identification. Placed in gown. Bed in low cc3 position. Call light in reach. Side rails up X2. Pulse ox on. NIBP on. 23:34 Initial lab(s) drawn, by me, sent to lab. Inserted saline lock: 20 gauge in right lt1 antecubital area, using aseptic technique. 06/08 02:50 No provider procedures requiring assistance completed. IV discontinued, intact, cc3 bleeding controlled, No redness/swelling at site. Pressure dressing applied. Administered Medications: 06/07 23:30 Drug: NS 0.9% 1000 ml Route: IV; Rate: 1 bolus; Site: right antecubital; cc3 06/08 00:30 Follow up: Response: No adverse reaction; IV Status: Completed infusion; IV Intake: cc3 1000ml 06/07 23:30 Drug: Zofran 4 mg Route: IVP; Site: left antecubital; cc3 06/08 00:30 Follow up: Response: No adverse reaction; Nausea is decreased cc3 06/07 23:45 Drug: morphine 4 mg {Note: RASS 0.} Route: IVP; Site: right antecubital; cc3 06/08 00:30 Follow up: Response: No adverse reaction; Pain is decreased; RASS: Alert and Calm (0) cc3 00:38 Drug: morphine 4 mg {Note: rass 0.} Route: IVP; Site: right antecubital; rr5 01:00 Follow up: Response: No adverse reaction; Pain is decreased; RASS: Alert and Calm (0) cc3 01:50 Drug: ProTONIX 40 mg Route: IVP; Site: right antecubital; cc3 02:07 Follow up: Response: No adverse reaction; Pain is decreased cc3 01:50 Drug: GI Cocktail without - (Maalox Suspension 30 ml, Lidocaine Liquid 2 % 15 cc3 ml) Route: PO; 02:08 Follow up: Response: No adverse reaction; Pain is decreased cc3 Intake: 00:30 IV: 1000ml; Total: 1000ml. cc3 Outcome: 02:38 Discharge ordered by . tw4 02:50 Discharged to home ambulatory, with family. cc3 02:50 Condition: stable 02:50 Discharge instructions given to patient, family, Instructed on discharge instructions, follow up and referral plans. medication usage, Demonstrated understanding of instructions, follow-up care, medications, Prescriptions given X 2. 02:53 Patient left the ED. cc3 Signatures: Eneida Ny RN RN aj1 Sachin Jacobo MD MD tw4 Argenis Castellanos cc3 Trace Arechiga RN RN rr5 Lo, Nke[place] 1 Yue Menard cl3
--- NOTE | 2019-06-08 02:39 | EDPHYS ---
Physician Documentation [facility] Name: Alex Auguste Age: 38 yrs Sex: Male : 1980 Arrival Date: 06/07/2019 Time: 23:05 Bed 20 Private MD: ED Physician Sachin Jacobo HPI: 06/08 01:05 This 38 yrs old Male presents to ER via Ambulatory with complaints of tw4 abdominal pain "I think its my pancreatitis". 01:05 The patient presents with abdominal pain in the epigastric area. tw4 01:08 Onset: The symptoms/episode began/occurred 1 week(s) ago. The symptoms do not radiate. tw4 The symptoms are described as sharp. Modifying factors: The symptoms are alleviated by nothing, the symptoms are aggravated by nothing. Severity of pain: At its worst the pain was moderate in the emergency department the pain is unchanged. The patient has not experienced similar symptoms in the past. 01:09 Associated signs and symptoms: Pertinent positives: nausea, vomiting, and diarrhea, tw4 nausea and vomiting, Pertinent negatives: anorexia, blood in stools, chest pain, diarrhea, dysuria, fever, headache, hematuria, nausea, palpitations. Historical: - Allergies: 06/07 23:13 No Known Allergies; aj1 - Home Meds: 23:13 citalopram 20 mg tab 1 tab once daily [Active]; Creon Oral 1 cap 3 times per day aj1 [Active]; gemfibrozil 600 mg Oral tab 1 tab 2 times per day [Active]; Lantus 100 unit/mL Sub-Q soln 31 unit nightly [Active]; Lyrica 50 mg Oral cap 1 cap 3 times per day [Active]; Niacin Oral [Active]; Novolog 100 unit/mL Sub-Q soln sliding scale tid with meals [Active]; Prozac Oral [Active]; trazodone 100 mg Oral tab PRN sleep [Active]; - PMHx: 23:13 Diabetes - IDDM; High Triglycerides; Hyperlipidemia; Pancreatitis; aj1 - Immunization history:: Flu vaccine is not up to date. - Social history:: Smoking status: Patient uses tobacco products, smokes one-half pack cigarettes per day. - Ebola Screening: : Patient denies travel to an Ebola-affected area in the 21 days before illness onset. ROS: 06/08 01:08 Constitutional: Negative for fever, chills, and weight loss, Eyes: Negative for injury, tw4 pain, redness, and discharge. 01:09 Abdomen/GI: Positive for abdominal pain, nausea and vomiting, nausea, vomiting, and tw4 diarrhea, nausea, vomiting, Negative for diarrhea, constipation, abdominal cramps, abdominal distension, anorexia, dysphagia, hematemesis, black/tarry stool, rectal pain, rectal bleeding. 01:09 Cardiovascular: Negative for chest pain, palpitations, and edema, Respiratory: Negative tw4 for shortness of breath, cough, wheezing, and pleuritic chest pain, Back: Negative for injury and pain, MS/Extremity: Negative for injury and deformity, Skin: Negative for injury, rash, and discoloration, Neuro: Negative for headache, weakness, numbness, tingling, and seizure. Exam: 01:09 Constitutional: This is a well developed, well nourished patient who is awake, alert, tw4 and in no acute distress. Head/Face: Normocephalic, atraumatic. Chest/axilla: Normal chest wall appearance and motion. Nontender with no deformity. No lesions are appreciated. Cardiovascular: Regular rate and rhythm with a normal S1 and S2. No gallops, murmurs, or rubs. Normal PMI, no JVD. No pulse deficits. Respiratory: Lungs have equal breath sounds bilaterally, clear to auscultation and percussion. No rales, rhonchi or wheezes noted. No increased work of breathing, no retractions or nasal flaring. 01:09 Skin: Warm, dry with normal turgor. Normal color with no rashes, no lesions, and no evidence of cellulitis. MS/ Extremity: Pulses equal, no cyanosis. Neurovascular intact. Full, normal range of motion. Neuro: Awake and alert, GCS 15, oriented to person, place, time, and situation. Cranial nerves II-XII grossly intact. Motor strength 5/5 in all extremities. Sensory grossly intact. Cerebellar exam normal. Normal gait. 01:09 Abdomen/GI: Inspection: abdomen appears normal, Bowel sounds: diminished, in all quadrants, Palpation: moderate abdominal tenderness, in the epigastric area. Vital Signs: 06/07 23:13 BP 142 / 98; Pulse 115; Resp 20; Temp 97.4; Pulse Ox 100% on R/A; Weight 83.91 kg (R); aj1 Height 5 ft. 10 in. (177.80 cm) (R); Pain 9/10; 06/08 00:38 BP 141 / 103; Pulse 95; Resp 18; Pulse Ox 99% ; Pain 9/10; rr5 01:45 BP 137 / 96; Pulse 102; Resp 18 S; Pulse Ox 99% on R/A; cc3 02:30 BP 129 / 84; Pulse 98; Resp 17 S; Pulse Ox 98% on R/A; cc3 06/07 23:13 Body Mass Index 26.54 (83.91 kg, 177.80 cm) aj1 MDM: 06/07 23:18 Patient medically screened. 06/08 02:50 Differential diagnosis: appendicitis, bowel obstruction, Herpes Zoster, Irritable bowel tw4 syndrome. Data reviewed: vital signs, nurses notes. Data reviewed: lab test result(s), CBC, white blood cell count, hemoglobin, hematocrit, platelets, electrolytes, sodium, potassium, chloride, serum bicarbonate, BUN, creatinine, serum glucose, hepatic panel. Data interpreted: Pulse oximetry: Interpretation: normal. Counseling: I had a detailed discussion with the patient and/or guardian regarding: the historical points, exam findings, and any diagnostic results supporting the discharge/admit diagnosis. Medication response: morphine relieved the patient's pain. Symptoms have resolved. Response to treatment: the patient's symptoms have markedly improved after treatment, and as a result, I will discharge patient. Special discussion: Based on the patient's Hx, exam, and Dx evaluation, there is no indication for emergent surgery or inpatient Tx. It is understood by the patient/guardian that if the Sx's persist or worsen they need to return immediately for re-evaluation. I discussed with the patient/guardian in detail that at this point there is no indication for admission to the hospital. It is understood, however, that if the symptoms persist or worsen the patient needs to return immediately for re-evaluation. 06/07 23:19 Order name: Basic Metabolic Panel; Complete Time: 01:03 06/08 01:03 Interpretation: Normal except: GLUC 301; GFR 88. 06/07 23:19 Order name: CBC with Diff; Complete Time: 01:03 06/08 01:03 Interpretation: Normal except: MPV 7.5. tw4 06/07 23:19 Order name: Creatinine for Radiology; Complete Time: 01:03 4 06/08 01:04 Interpretation: Within normal limits: GFR 87; CRE 0.96. tw4 06/07 23:19 Order name: Hepatic Function; Complete Time: 01:03 4 06/08 01:04 Interpretation: Normal except: AST 12. [facility] 06/07 23:19 Order name: Lipase; Complete Time: 01:03 4 06/08 01:04 Interpretation: Normal except: LIP 181. tw4 06/08 01:05 Order name: Lipid Profile tw4 06/08 01:05 Order name: Lipid Profile [facility] 06/08 01:43 Order name: LDL, Direct [facility] 06/07 23:19 Order name: IV Saline Lock; Complete Time: 23:35 tw4 06/07 23:19 Order name: Labs collected and sent; Complete Time: 23:35 tw4 Administered Medications: 06/07 23:30 Drug: NS 0.9% 1000 ml Route: IV; Rate: 1 bolus; Site: right antecubital; 3 06/08 00:30 Follow up: Response: No adverse reaction; IV Status: Completed infusion; IV Intake: cc3 1000ml 06/07 23:30 Drug: Zofran 4 mg Route: IVP; Site: left antecubital; 3 06/08 00:30 Follow up: Response: No adverse reaction; Nausea is decreased 3 06/07 23:45 Drug: morphine 4 mg {Note: RASS 0.} Route: IVP; Site: right antecubital; 3 06/08 00:30 Follow up: Response: No adverse reaction; Pain is decreased; RASS: Alert and Calm (0) cc3 00:38 Drug: morphine 4 mg {Note: rass 0.} Route: IVP; Site: right antecubital; rr5 01:00 Follow up: Response: No adverse reaction; Pain is decreased; RASS: Alert and Calm (0) cc3 01:50 Drug: ProTONIX 40 mg Route: IVP; Site: right antecubital; cc3 02:07 Follow up: Response: No adverse reaction; Pain is decreased cc3 01:50 Drug: GI Cocktail without - (Maalox Suspension 30 ml, Lidocaine Liquid 2 % 15 cc3 ml) Route: PO; 02:08 Follow up: Response: No adverse reaction; Pain is decreased cc3 Disposition: 06/08/19 02:38 Discharged to Home. Impression: Abdominal tenderness, Gastritis, unspecified. - Condition is Stable. - Discharge Instructions: Gastritis, Adult, [id number], Abdominal Pain, Adult, [id number]. - Prescriptions for Bentyl 20 mg Oral Tablet - take 1 tablet by ORAL route every 6 hours As needed; 20 tablet. Protonix 40 mg Oral Tablet - take 1 tablet by ORAL route once daily; 30 tablet. - Medication Reconciliation Form, Thank You Letter, Antibiotic Education, Prescription Opioid Use form. - Follow up: Private Physician; When: Upon discharge from the Emergency Department; Reason: Recheck today's complaints, Continuance of care. - Problem is new. - Symptoms have improved. Signatures: Dispatcher [employer] EDMS Eneida Ny RN RN aj1 Sachin Jacobo MD MD tw4 Argenis Castellanos cc3 Trace Arechiga RN RN rr5 Corrections: (The following items were deleted from the chart) 01:09 01:08 Abdomen/GI: Positive for abdominal pain, nausea, Negative for nausea and tw4 vomiting, nausea, vomiting, and diarrhea, vomiting, diarrhea, constipation, abdominal cramps, abdominal distension, anorexia, hematemesis, black/tarry stool, rectal pain, tw4 01:10 01:08 Associated signs and symptoms: none. tw4 tw4 02:50 01:05 This 38 yrs old Male presents to ER via Ambulatory with complaints of tw4 Pancreases. tw4 02:53 02:38 06/08/2019 02:38 Discharged to Home. Impression: Abdominal tenderness; Gastritis, cc3 unspecified. Condition is Stable. Forms are Medication Reconciliation Form, Thank You Letter, Antibiotic Education, Prescription Opioid Use. Follow up: Private Physician; When: Upon discharge from the Emergency Department; Reason: Recheck today's complaints, Continuance of care. Problem is new. Symptoms have improved. tw4
== END 2019-06-08 02:53 | disposition home or self-care (01) ==
LOC: ER 23:03
DX: K29.70 Gastritis, unspecified, without bleeding (principal); E11.9 Type 2 diabetes mellitus without complications; E78.5 Hyperlipidemia, unspecified; F17.210 Nicotine dependence, cigarettes, uncomplicated; Z79.4 Long term (current) use of insulin
CPT/HCPCS: 36415; 80048; 80061; 80076; 83690; 85025; 99284; C9113; J2405; J7030

== ENCOUNTER 2019-07-25 00:37 | Emergency (ER) | payer SELFPAY ==
--- OUTSIDE RECORDS SUMMARY | 2019-07-25 00:39 | XMS REPORT ---
:1980 Author Organization [facility] Address [address] [place] [address] Dr. Loya [address] [place] [id number] Care Team Providers Name Role Phone Unavailable Unavailable Unavailable Problems This patient has no known problems. Allergies, Adverse Reactions, Alerts This patient has no known allergies or adverse reactions. Medications This patient has no known medications.
[2019-07-25] MEDS ORDERED: METOCLOPRAMIDE 10 MG/2mL INJ ONE (01:32)
[2019-07-25] MEDS ORDERED: METHYLPREDNISOLONE 125 MG INJ ONE (01:32)
[2019-07-25] MEDS ORDERED: NA CHLORIDE 0.9% 1,000 ML ONE (01:33)
[2019-07-25] MEDS ORDERED: KETOROLAC 30 MG/ML INJ ONE (01:33)
[2019-07-25] MEDS ORDERED: DIPHENHYDRAMINE 50 MG/ML VIAL ONE (01:33)
[2019-07-25] MEDS ORDERED: ONDANSETRON 4 MG/2 ML VIAL ONE (01:33)
[2019-07-25 02:13] LABS: Absolute Lymphocytes (CBC) 1.7 K/uL (0.7-4.9); Basophils % 2.1 % (0-1.3); Hematocrit 37.2 % (39.6-49.0); Lymphocytes % 37.2 % (15.3-44.8); MPV 7.4 fL (7.6-11.3); RBC Red Blood Cell Count 4.46 M/uL (4.33-5.43)
[2019-07-25] MEDS ORDERED: MORPHINE 4 MG/ML SYR ONE (02:38)
[2019-07-25 03:17] LABS: Albumin 3.6 g/dL (3.4-5.0); Bilirubin Direct 0.1 mg/dL (0-0.2); Bilirubin Total 0.6 mg/dL (0.2-1.0); Potassium 3.9 mmol/L (3.5-5.1); Protein, Total 6.7 g/dL (6.4-8.2)
--- NOTE | 2019-07-25 03:26 | EDPHYS ---
Physician Documentation [facility] Name: Alex Auguste Age: 39 yrs Sex: Male : 1980 Arrival Date: 07/25/2019 Time: 00:39 Bed 6 Private MD: ED Physician Priti Chin HPI: 07/25 03:22 This 39 yrs old Male presents to ER via Wheelchair with complaints of ma2 Headache, Eye Pain. 03:22 The patient complains of pain to the forehead. The patient describes the headache as ma2 aching. Onset: The symptoms/episode began/occurred gradually, 6 day(s) ago. Severity of symptoms: At its worst the pain was very mild, in the emergency department the pain is unchanged. The patient has experienced similar episodes in the past. here with double vision that started 3 days ago, with mild headache, he had this before, had CN neuropathy, no neck pain or fever . Historical: - Allergies: 01:03 No Known Allergies; lp1 - Home Meds: 01:03 gemfibrozil 600 mg Oral tab 1 tab 2 times per day [Active]; trazodone 100 mg Oral tab lp1 PRN sleep [Active]; niacin 500 mg oral TbER once daily [Active]; pantoprazole 40 mg oral TbEC 1 tab once daily [Active]; gabapentin 800 mg oral tab 1 tab twice a day [Active]; buspirone 10 mg Oral tab 1 tab 2 times per day [Active]; fluoxetine 20 mg Oral cap 1 cap once daily [Active]; Novolin 70/30 [place] Sub-Q [Active]; metoprolol tartrate 25 mg Oral tab 1 tab 2 times per day [Active]; - PMHx: 01:03 Diabetes - IDDM; High Triglycerides; Hyperlipidemia; Pancreatitis; Hypertension; Childs's lp1 Palsy; - PSHx: 01:03 Cholecystectomy; lp1 - Immunization history:: Adult Immunizations up to date. - Social history:: Smoking status: Patient uses tobacco products, smokes one pack cigarettes per day. Patient/guardian denies using alcohol, street drugs, The patient lives with spouse. - Ebola Screening: : No symptoms or risks identified at this time. - Family history:: not pertinent. ROS: 03:22 Constitutional: Negative for fever, chills, and weight loss. ma2 03:22 All other systems are negative. Exam: 03:22 Constitutional: This is a well developed, well nourished patient who is awake, alert, ma2 and in no acute distress. Head/Face: Normocephalic, atraumatic. Eyes: Pupils equal round and reactive to light, extra-ocular motions intact. Lids and lashes normal. Conjunctiva and sclera are non-icteric and not injected. Cornea within normal limits. Periorbital areas with no swelling, redness, or edema. ENT: Nares patent. No nasal discharge, no septal abnormalities noted. Tympanic membranes are normal and external auditory canals are clear. Oropharynx with no redness, swelling, or masses, exudates, or evidence of obstruction, uvula midline. Mucous membranes moist. Neck: Trachea midline, no thyromegaly or masses palpated, and no cervical lymphadenopathy. Supple, full range of motion without nuchal rigidity, or vertebral point tenderness. No Meningismus. Chest/axilla: Normal chest wall appearance and motion. Nontender with no deformity. No lesions are appreciated. Cardiovascular: Regular rate and rhythm with a normal S1 and S2. No gallops, murmurs, or rubs. Normal PMI, no JVD. No pulse deficits. Respiratory: Lungs have equal breath sounds bilaterally, clear to auscultation and percussion. No rales, rhonchi or wheezes noted. No increased work of breathing, no retractions or nasal flaring. Abdomen/GI: Soft, non-tender, with normal bowel sounds. No distension or tympany. No guarding or rebound. No evidence of tenderness throughout. MS/ Extremity: Pulses equal, no cyanosis. Neurovascular intact. Full, normal range of motion. Neuro: Awake and alert, GCS 15, oriented to person, place, time, and situation. Cranial nerves II-XII grossly intact except left abducent nurve palsy, no menengism on exam, . Motor strength 5/5 in all extremities. Sensory grossly intact. Cerebellar exam normal. Normal gait. Vital Signs: 01:00 BP 134 / 96; Pulse 134; Resp 18; Temp 98.2(O); Pulse Ox 97% on R/A; Weight 81.65 kg lp1 (R); Height 5 ft. 10 in. (177.80 cm); Pain 10/10; 02:30 BP 143 / 88; Pulse 111; Resp 18; Pulse Ox 98% on R/A; lp1 03:30 BP 125 / 89; Pulse 107; Resp 18; Pulse Ox 95% on R/A; lp1 03:42 BP 133 / 98; Pulse 105; Resp 18; Pulse Ox 96% on R/A; lp1 01:00 Body Mass Index 25.83 (81.65 kg, 177.80 cm) lp1 MDM: 00:59 Patient medically screened. ma2 03:22 Differential diagnosis: sinusitis, trigeminal neuralgia, vasomotor headache. Data ma2 reviewed: vital signs, nurses notes. Counseling: I had a detailed discussion with the patient and/or guardian regarding: the historical points, exam findings, and any diagnostic results supporting the discharge/admit diagnosis, the presence of at least one elevated blood pressure reading (>120/80) during this emergency department visit, the need for outpatient follow up. Response to treatment: the patient's symptoms have resolved after treatment. 07/25 01:13 Order name: Basic Metabolic Panel; Complete Time: 03:21 07/25 01:13 Order name: CBC with Diff; Complete Time: 03:21 07/25 01:13 Order name: Creatinine for Radiology; Complete Time: 03:21 07/25 01:13 Order name: Hepatic Function; Complete Time: 03:21 07/25 01:13 Order name: Lipase; Complete Time: 03:21 07/25 01:13 Order name: CT Head Brain wo Cont 2 07/25 01:13 Order name: IV Saline Lock; Complete Time: 01:39 07/25 01:13 Order name: Labs collected and sent; Complete Time: 01:39 ma2 Administered Medications: 01:30 Drug: NS 0.9% 1000 ml Route: IV; Rate: 1 bolus; Site: right antecubital; lp1 02:39 Follow up: IV Status: Completed infusion; IV Intake: 1000ml lp1 01:32 Drug: Zofran 4 mg Route: IVP; Site: right antecubital; lp1 02:39 Follow up: Response: Nausea is decreased lp1 01:34 Drug: TORadol 60 mg Route: IVP; Site: right antecubital; lp1 02:39 Follow up: Response: No adverse reaction lp1 01:35 Drug: Benadryl 25 mg Route: IVP; Site: right antecubital; lp1 02:39 Follow up: Response: No adverse reaction lp1 01:57 Drug: Reglan 20 mg Route: IVP; Site: right antecubital; lp1 02:39 Follow up: Response: No adverse reaction lp1 01:57 Drug: MethylPrednisoLONE 125 mg Route: IVP; Site: right antecubital; lp1 02:40 Follow up: Response: No adverse reaction lp1 02:38 Drug: morphine 4 mg {Note: RASS 0.} Route: IVP; Site: right antecubital; lp1 03:28 Follow up: Response: Pain is decreased lp1 03:35 Drug: Insulin Regular Human 5 units {Co-Signature: bb (Anna Marie Harrington RN).} Route: IVP; lp1 Site: right antecubital; 03:54 Follow up: Response: Blood sugar is lowered lp1 Disposition: 07/25/19 03:25 Discharged to Home. Impression: Sixth [abducent] nerve palsy, left eye. - Condition is Stable. - Discharge Instructions: Diabetes Mellitus and Food. - Prescriptions for Reglan 10 mg Oral Tablet - take 1 tablet by ORAL route every 6 hours . take 30 minutes before meals and at bedtime; 100 tablet. Medrol (Khoa) 4 mg Oral Tablets, Dose Pack - take 1 tablet by ORAL route as directed - follow package instructions; 1 packet. - Medication Reconciliation Form, Thank You Letter, Antibiotic Education, Prescription Opioid Use form. - Follow up: Elbert Hurt; When: Tomorrow; Reason: Continuance of care. Signatures: Dispatcher [employer] Blanca Page RN RN lp1 Priti Chin MD MD ma2 Anna Marie roy Corrections: (The following items were deleted from the chart) 03:54 03:25 07/25/2019 03:25 Discharged to Home. Impression: Sixth [abducent] nerve palsy, lp1 left eye. Condition is Stable. Discharge Instructions: Diabetes Mellitus and Food. Prescriptions for Reglan 10 mg Oral Tablet - take 1 tablet by ORAL route every 6 hours . take 30 minutes before meals and at bedtime; 100 tablet, Medrol (Khoa) 4 mg Oral Tablets, Dose Pack - take 1 tablet by ORAL route as directed - follow package instructions; 1 packet. and Forms are Medication Reconciliation Form, Thank You Letter, Antibiotic Education, Prescription Opioid Use. Follow up: Elbert Hurt; When: Tomorrow; Reason: Continuance of care. ma2
--- NOTE | 2019-07-25 03:26 | ER ---
Nurse's Notes [facility] Name: Alex Auguste Age: 39 yrs Sex: Male : 1980 Arrival Date: 07/25/2019 Time: 00:39 Bed 6 Private MD: Diagnosis: Sixth [abducent] nerve palsy, left eye Presentation: 07/25 00:57 Presenting complaint: Patient states: Pain to left eye that began 1 week ago, pain lp1 worsening tonight; Patient states hx of third nerve palsy with similar symptoms; Blurred vision to left eye, light sensitivity, nausea, vomiting. Transition of care: patient was not received from another setting of care. Onset of symptoms was July 25, 2019. Risk Assessment: Do you want to hurt yourself or someone else? Patient reports no desire to harm self or others. Initial Sepsis Screen: Does the patient meet any 2 criteria? HR > 90 bpm. Does the patient have a suspected source of infection? No. Patient's initial sepsis screen is negative. Care prior to arrival: None. 00:57 Method Of Arrival: Wheelchair lp1 00:57 Acuity: [place] 3 lp1 Triage Assessment: 01:41 Headache History: The patient has had previous headaches. Pain: Pain began 1 week ago lp1 Also complains of nausea, photophobia. Historical: - Allergies: 01:03 No Known Allergies; lp1 - Home Meds: 01:03 gemfibrozil 600 mg Oral tab 1 tab 2 times per day [Active]; trazodone 100 mg Oral tab lp1 PRN sleep [Active]; niacin 500 mg oral TbER once daily [Active]; pantoprazole 40 mg oral TbEC 1 tab once daily [Active]; gabapentin 800 mg oral tab 1 tab twice a day [Active]; buspirone 10 mg Oral tab 1 tab 2 times per day [Active]; fluoxetine 20 mg Oral cap 1 cap once daily [Active]; Novolin 70/30 Innolet Sub-Q [Active]; metoprolol tartrate 25 mg Oral tab 1 tab 2 times per day [Active]; - PMHx: 01:03 Diabetes - IDDM; High Triglycerides; Hyperlipidemia; Pancreatitis; Hypertension; Childs's lp1 Palsy; - PSHx: 01:03 Cholecystectomy; lp1 - Immunization history:: Adult Immunizations up to date. - Social history:: Smoking status: Patient uses tobacco products, smokes one pack cigarettes per day. Patient/guardian denies using alcohol, street drugs, The patient lives with spouse. - Ebola Screening: : No symptoms or risks identified at this time. - Family history:: not pertinent. Screenin:05 Abuse screen: Denies threats or abuse. Denies injuries from another. Nutritional lp1 screening: No deficits noted. Tuberculosis screening: No symptoms or risk factors identified. Fall Risk None identified. Assessment: 01:00 General: Appears uncomfortable, Behavior is crying. Pain: Complains of pain in head, lp1 left eye Pain currently is 10 out of 10 on a pain scale. Quality of pain is described as pressure, stabbing. Neuro: Level of Consciousness is awake, alert, obeys commands, Oriented to person, place, time, situation, Reports diplopia, headache in entire photophobia. Cardiovascular: Patient's skin is warm and dry. Respiratory: Respiratory effort is even, unlabored. GI: Reports nausea, vomiting. : No signs and/or symptoms were reported regarding the genitourinary system. EENT: No signs and/or symptoms were reported regarding the EENT system. Derm: Skin is intact, Skin is dry, Skin is normal. Musculoskeletal: No deficits noted. 02:30 Reassessment: Patient states some improvement to headache, but continued pain; Provider lp1 notified. 03:41 Reassessment: Patient appears in no apparent distress at this time. Patient is alert, lp1 oriented x 3, equal unlabored respirations, skin warm/dry/pink. Patient states feeling better. Patient states symptoms have improved. Vital Signs: 01:00 BP 134 / 96; Pulse 134; Resp 18; Temp 98.2(O); Pulse Ox 97% on R/A; Weight 81.65 kg lp1 (R); Height 5 ft. 10 in. (177.80 cm); Pain 10/10; 02:30 BP 143 / 88; Pulse 111; Resp 18; Pulse Ox 98% on R/A; lp1 03:30 BP 125 / 89; Pulse 107; Resp 18; Pulse Ox 95% on R/A; lp1 03:42 BP 133 / 98; Pulse 105; Resp 18; Pulse Ox 96% on R/A; lp1 01:00 Body Mass Index 25.83 (81.65 kg, 177.80 cm) lp1 ED Course: 00:39 Patient arrived in ED. cl3 00:57 Blanca Shepard, RN is Primary Nurse. lp1 00:59 Priti Chin MD is Attending Physician. ma2 01:00 Triage completed. lp1 01:00 Arm band placed on. lp1 01:05 Patient has correct armband on for positive identification. lp1 01:25 Inserted saline lock: 20 gauge in right antecubital area, using aseptic technique. lp1 Blood collected. 01:25 Initial lab(s) drawn, by me, sent to lab. lp1 01:33 Radiology exam delayed due to RN giving pain medication at this time. kw1 01:[address] via stretcher. lp1 02:09 CT Head Brain wo Cont In Process Unspecified. EDMS 03:25 Elbert Hurt MD is Referral Physician. ma2 03:41 No provider procedures requiring assistance completed. lp1 03:53 IV discontinued, No redness/swelling at site. Pressure dressing applied. lp1 Administered Medications: 01:30 Drug: NS 0.9% 1000 ml Route: IV; Rate: 1 bolus; Site: right antecubital; lp1 02:39 Follow up: IV Status: Completed infusion; IV Intake: 1000ml lp1 01:32 Drug: Zofran 4 mg Route: IVP; Site: right antecubital; lp1 02:39 Follow up: Response: Nausea is decreased lp1 01:34 Drug: TORadol 60 mg Route: IVP; Site: right antecubital; lp1 02:39 Follow up: Response: No adverse reaction lp1 01:35 Drug: Benadryl 25 mg Route: IVP; Site: right antecubital; lp1 02:39 Follow up: Response: No adverse reaction lp1 01:57 Drug: Reglan 20 mg Route: IVP; Site: right antecubital; lp1 02:39 Follow up: Response: No adverse reaction lp1 01:57 Drug: MethylPrednisoLONE 125 mg Route: IVP; Site: right antecubital; lp1 02:40 Follow up: Response: No adverse reaction lp1 02:38 Drug: morphine 4 mg {Note: RASS 0.} Route: IVP; Site: right antecubital; lp1 03:28 Follow up: Response: Pain is decreased lp1 03:35 Drug: Insulin Regular Human 5 units {Co-Signature: bb (Anna Marie Harrington RN).} Route: IVP; lp1 Site: right antecubital; 03:54 Follow up: Response: Blood sugar is lowered lp1 Intake: 02:39 IV: 1000ml; Total: 1000ml. lp1 Outcome: 03:25 Discharge ordered by . ma2 03:54 Discharged to home ambulatory, with significant other. lp1 03:54 Condition: good 03:54 Discharge instructions given to patient, Instructed on discharge instructions, follow up and referral plans. medication usage, Demonstrated understanding of instructions, follow-up care, medications, Prescriptions given X 2. 03:54 Patient left the ED. lp1 Signatures: Dispatcher [employer] EDMS Blanca Shepard, RN RN lp1 Debra Barroso kw1 Priti Chin MD MD ma2 Yue Menard cl3 Anna Marie roy
[2019-07-25] MEDS ORDERED: INSULIN -REGULAR HUMAN 50 UNIT/0.5 ML ML ONE (03:37)
[2019-07-25 03:59] VITALS: TEMP 98.2
[2019-07-25 04:03] VITALS: BP 133/98; O2SAT 96
--- NOTE | 2019-07-25 10:03 | RAD REPORT ---
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 Coronal and sa gittal reformatted images were provided. This exam was performed according to our departmental dose-optimization program, which includes autom ated exposure control, adjustment of the mA and/or kV according to patient size and/or use of iterati ve reconstruction technique. COMPARISON: 02/28/2018 FINDINGS: Brain: No significant white matter changes. No focal mass effect. Carranza-white matter differ entiation is within normal limits. No hemorrhage. Ventricles: No ventriculomegaly or midline shift. Extra-axial spaces: No extra-axial collection or hemorrhage. Paranasal sinuses and mastoid air cells: Well-aerated Vessels: Unremarkable Bones: Unremarkable Soft tissues: Unremarkable IMPRESSION: No acute intracranial or extra-axial abnormality. Electronically signed by: Pauline De La Rosa MD 07/25/2019 2:57 AM CORPORATE STRATEGY INTERN Due to temporary technical issues with the PACS/Fluency reporting system, reports are being signed by the in house radiologist as a courtesy to ensure prompt reporting. The interpreting radiologist is f ully responsible for the content of the report.
== END 2019-07-25 03:54 | disposition home or self-care (01) ==
LOC: ER 00:37
DX: H49.20 Sixth [abducent] nerve palsy, unspecified eye (principal); I10 Essential (primary) hypertension; F17.210 Nicotine dependence, cigarettes, uncomplicated; E11.9 Type 2 diabetes mellitus without complications; Z79.4 Long term (current) use of insulin; E78.5 Hyperlipidemia, unspecified
CPT/HCPCS: 36415; 70450; 80048; 80076; 82947; 83690; 85025; 96361; 96374; 96375; 99284; J1200; J2405; J2765; J2930; J7030

== ENCOUNTER 2019-07-30 10:00 | Emergency (ER) | payer SELFPAY ==
--- OUTSIDE RECORDS SUMMARY | 2019-07-30 10:02 | XMS REPORT ---
:1980 [facility] Address [address] [place] [address] Dr. Loya [address] [place] [id number] Care Team Providers Name Role Phone Unavailable Unavailable Unavailable Problems This patient has no known problems. Allergies, Adverse Reactions, Alerts This patient has no known allergies or adverse reactions. Medications This patient has no known medications.
[2019-07-30] MEDS ORDERED: MORPHINE 4 MG/ML SYR ONE ×2 (11:22→12:12)
[2019-07-30] MEDS ORDERED: NA CHLORIDE 0.9% 1,000 ML ONE ×2 (11:23→12:46)
[2019-07-30] MEDS ORDERED: ONDANSETRON 4 MG/2 ML VIAL ONE ×2 (11:23→12:12)
--- NOTE | 2019-07-30 11:34 | RAD REPORT ---
EXAM DESCRIPTION: RAD - Chest Single View - 07/30/2019 11:24 am CLINICAL HISTORY: Chest pain COMPARISON: March 2018 TECHNIQUE: AP portable chest image was obtained 1118 . FINDINGS: There is Heart and vasculature are normal. No measurable pleural effusion and no pneumotho rax. No acute bony abnormality seen. No acute aortic findings suspected. IMPRESSION: No acute cardiopulmonary process. No significant change from comparison.
[2019-07-30 12:11] LABS: Protime INR 0.87
[2019-07-30 12:14] LABS: Absolute Lymphocytes (CBC) 1.8 K/uL (0.7-4.9); Hematocrit 46.1 % (39.6-49.0); Lymphocytes % 26.7 % (15.3-44.8); RBC Red Blood Cell Count 5.55 M/uL (4.33-5.43)
[2019-07-30 12:33] LABS: Urine Blood TRACE (NEG); Urine Glucose 2+ (NEG); Urine Protein 2+ (NEG); Urine pH 5.5 (5.0-7.0)
[2019-07-30 12:36] LABS: ALT/SGPT 25 U/L (12-78); AST/SGOT 36 U/L (15-37); Albumin 3.8 g/dL (3.4-5.0); Alkaline Phosphatase 84 U/L (45-117); BUN Blood Urea Nitrogen 14 mg/dL (7-18); Bicarbonate 27 mmol/L (21-32); Bilirubin Direct 0.1 mg/dL (0-0.2); Bilirubin Total 1.3 mg/dL (0.2-1.0); Lipase 139 U/L (73-393); NT PRO-BNP 17 pg/mL (<125); Protein, Total 7.4 g/dL (6.4-8.2); Sodium Level 134 mmol/L (136-145); Troponin (Emerg Dept Use Only) < 0.02 ng/mL (0.0-0.045)
[2019-07-30 12:37] LABS: Glucose Level 543 mg/dL (74-106); Potassium 4.1 mmol/L (3.5-5.1)
[2019-07-30] MEDS ORDERED: INSULIN -REGULAR HUMAN 50 UNIT/0.5 ML ML ONE (12:48)
--- NOTE | 2019-07-30 13:15 | RAD REPORT ---
EXAM DESCRIPTION: CT - Abdomen W Contrast - 07/30/2019 12:55 pm CLINICAL HISTORY: ABD PAIN COMPARISON: Abdomen W Contrast dated 03/04/2019; Abdomen Pelvis W Contrast dated 05/29/2018; Abdome n Pelvis W Contrast dated 02/28/2018; CT ABD PELVIS W CONTRAST dated 05/16/2015 TECHNIQUE: Biphasic, helical CT imaging of the abdomen was performed following oral and 100 ml non-i onic IV contrast. All CT scans are performed using dose optimization technique as appropriate and may include automated exposure control or mA/KV adjustment according to patient size. FINDINGS: No suspicious findings in the lung bases. Liver and spleen show no suspicious findings. Plan is borderline for splenomegaly. Trace amount of st randing is seen between the uncinate process and the duodenal C-loop. At the pancreatic tail there is a 4.3 centimeter homogeneous cyst. This has not change from multiple prior imaging studies. Prominen t veins are seen in the upper abdomen. Numerous varices are seen. Pancreatic tail finding is likely a chronic pseudocyst. Cholecystectomy clips are present. No biliary tree dilatation. No ascites. Symmetric renal function is seen with no hydronephrosis or suspicious renal mass. No adrenal gland a bnormality. No dilated bowel loops or bowel wall thickening. No free air, free fluid or inflammatory stranding. No hernia, mass or bulky lymphadenopathy. No suspicious bony findings. IMPRESSION: Suspected minimal pancreatitis change between the uncinate process and duodenal C-loop. This is potentially scarring from prior pancreatitis episodes. Correlation can be made with clinical and laboratory findings. 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
[2019-07-30] MEDS ORDERED: FENTANYL CITR 100 MCG/2 ML ONE (13:16)
--- NOTE | 2019-07-30 14:27 | EDPHYS ---
Physician Documentation [facility] Name: Alex Auguste Age: 39 yrs Sex: Male : 1980 Arrival Date: 07/30/2019 Time: 10:03 Bed 23 Private MD: ED Physician Priti Chin HPI: 07/30 11:29 This 39 yrs old Male presents to ER via Ambulatory with complaints of pm1 Headache, Vision Problem, Abdominal Pain, Vomiting, Chest Pain. 11:29 The patient or guardian reports chest pain that is located primarily in the epigastric pm1 area, and diffusely across his chest. Onset: headache started 2 days ago. Diffuse chest pain and epigastric pain that started yesterday. The pain does not radiate. Associated signs and symptoms: Pertinent positives: vomiting x 2 total onset yesterday, Pertinent negatives: cough, shortness of breath. Modifying factors: the symptoms are aggravated by Patient has not had any of his insulin since Wednesday. Has a prescription for his Novolog 70/30 but does not have the money for it. Reports that it cost him $78 per bottle per week . 11:29 The patient was seen here on 07/25/2019 for the same headache with blurry vision that pm1 he has today. Headache is located all over his head. He reports that his headache resolved with the medications given in the ER on 07/25/2019 and he was headache free for 2 days. Headache started on Wednesday. Chest pain and epigastric pain onset yesterday. 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 - Social history:: Smoking status: Patient reports the use of cigarette tobacco products. - Ebola Screening: : Patient negative for fever greater than or equal to 101.5 degrees Fahrenheit, and additional compatible Ebola Virus Disease symptoms Patient denies exposure to infectious person Patient denies travel to an Ebola-affected area in the 21 days before illness onset No symptoms or risks identified at this time. ROS: 11:29 Constitutional: Negative for fever, chills, and weight loss. pm1 11:29 ENT: Negative for injury, pain, and discharge, Neck: Negative for injury, pain, and swelling. 11:29 Respiratory: Negative for shortness of breath, cough, wheezing, and pleuritic chest pain. 11:29 Back: Negative for injury and pain, : Negative for injury, bleeding, discharge, and swelling, MS/Extremity: Negative for injury and deformity, Skin: Negative for injury, rash, and discoloration. 11:29 Eyes: Positive for blurry vision, photophobia, Negative for discharge, pain. 11:29 Cardiovascular: Positive for chest pain, Negative for orthopnea, palpitations. 11:29 Abdomen/GI: Positive for abdominal pain, nausea and vomiting, of the epigastric area, Negative for diarrhea, constipation. 11:29 Neuro: Positive for headache, Negative for numbness, tingling, weakness. Exam: 11:29 Constitutional: This is a well developed, well nourished patient who is awake, alert, pm1 and in no acute distress. Head/Face: Normocephalic, atraumatic. Eyes: Pupils equal round and reactive to light, extra-ocular motions intact. Lids and lashes normal. Conjunctiva and sclera are non-icteric and not injected. Cornea within normal limits. Periorbital areas with no swelling, redness, or edema. ENT: Nares patent. No nasal discharge, no septal abnormalities noted. Tympanic membranes are normal and external auditory canals are clear. Oropharynx with no redness, swelling, or masses, exudates, or evidence of obstruction, uvula midline. Mucous membranes moist. Neck: Trachea midline, no thyromegaly or masses palpated, and no cervical lymphadenopathy. Supple, full range of motion without nuchal rigidity, or vertebral point tenderness. No Meningismus. Chest/axilla: Normal chest wall appearance and motion. Nontender with no deformity. No lesions are appreciated. Cardiovascular: Regular rate and rhythm with a normal S1 and S2. No gallops, murmurs, or rubs. Normal PMI, no JVD. No pulse deficits. Respiratory: Lungs have equal breath sounds bilaterally, clear to auscultation and percussion. No rales, rhonchi or wheezes noted. No increased work of breathing, no retractions or nasal flaring. Back: No spinal tenderness. No costovertebral tenderness. Full range of motion. 11:29 Skin: Warm, dry with normal turgor. Normal color with no rashes, no lesions, and no evidence of cellulitis. MS/ Extremity: Pulses equal, no cyanosis. Neurovascular intact. Full, normal range of motion. 11:29 Abdomen/GI: Inspection: abdomen appears normal, Bowel sounds: normal, Palpation: soft, mild abdominal tenderness, in the epigastric area, mass, is not appreciated, rebound tenderness, is not appreciated. 11:29 Neuro: Orientation: is normal, Mentation: is normal, Cranial nerves: CN II- XII are normal as tested, Motor: is normal, Sensation: is normal, no obvious gross deficits. Vital Signs: 10:40 BP 150 / 106; Pulse 118; Resp 18; Temp 98.8; Pulse Ox 100% ; Weight 86.18 kg; Height 5 iw ft. 10 in. (177.80 cm); Pain 10/10; 14:00 BP 121 / 88; sg 14:03 Pulse 100; Resp 16; Temp 98.6; Pulse Ox 96% on R/A; sg 10:40 Body Mass Index 27.26 (86.18 kg, 177.80 cm) iw MDM: 11:00 Patient medically screened. pm1 12:53 Data reviewed: vital signs. pm1 14:21 Counseling: I had a detailed discussion with the patient and/or guardian regarding: the pm1 historical points, exam findings, and any diagnostic results supporting the discharge/admit diagnosis, lab results, radiology results, the need for outpatient follow up, to return to the emergency department if symptoms worsen or persist or if there are any questions or concerns that arise at home. 14:21 ED course: Patient's headache and blurry vision resolved with medications in the ER. pm1 Reports abdominal pain tolerable. No abdominal tenderness on exam. Lipase negative with no current abdominal tenderness. Impression of CT result is scarring from prior pancreatitis. Discussed findings with Dr. Lau and he agrees. Patient can be discharged home to follow up with PCP. 07/30 11:01 Order name: Basic Metabolic Panel; Complete Time: 12:39 pm1 07/30 11:01 Order name: CBC with Diff; Complete Time: 12:20 pm1 07/30 11:01 Order name: LFT's; Complete Time: 12:39 pm1 07/30 11:01 Order name: Magnesium; Complete Time: 12:39 pm1 07/30 11:01 Order name: NT PRO-BNP; Complete Time: 12:39 pm1 07/30 11:01 Order name: PT-INR; Complete Time: 12:12 pm1 07/30 11:01 Order name: Troponin (emerg Dept Use Only); Complete Time: 12:39 pm1 07/30 11:01 Order name: XRAY Chest (1 view); Complete Time: 12:12 pm1 07/30 11:01 Order name: CT Abdomen - IV Contrast Only; Complete Time: 13:20 pm1 07/30 11:01 Order name: Lipase; Complete Time: 12:39 pm1 07/30 11:02 Order name: ETOH Level; Complete Time: 12:33 pm1 07/30 12:22 Order name: Urine Dipstick--Ancillary (enter results); Complete Time: 12:33 lt1 07/30 14:30 Order name: Glucose, Ancillary Testing; Complete Time: 14:33 EDMS 07/30 11:01 Order name: Cardiac monitoring; Complete Time: 11:57 pm1 07/30 11:01 Order name: EKG - Nurse/Tech; Complete Time: 12:31 pm1 07/30 11:01 Order name: IV Saline Lock; Complete Time: 11:57 pm1 07/30 11:01 Order name: Labs collected and sent; Complete Time: 11:57 pm1 07/30 11:01 Order name: O2 Per Protocol; Complete Time: 11:57 pm1 07/30 11:01 Order name: O2 Sat Monitoring; Complete Time: 11:57 pm07/30 11:29 Order name: Labs - recollect needed: please recollect in dark green - pt's sample is eb lipemic; Complete Time: 11:57 07/30 14:01 Order name: Fingerstick Glucose; Complete Time: 14:25 pm1 Administered Medications: 11:26 Drug: NS 0.9% 1000 ml Route: IV; Rate: 1000 ml; Site: left wrist; iw 11:27 Drug: morphine 4 mg Route: IVP; Site: left wrist; iw 12:15 Follow up: Response: No adverse reaction; Pain is decreased iw 11:27 Drug: Zofran 4 mg Route: IVP; Site: left wrist; iw 12:24 Follow up: Response: No adverse reaction iw 12:20 Drug: morphine 4 mg Route: IVP; Site: left wrist; iw 12:20 Drug: Zofran 4 mg Route: IVP; Site: left wrist; iw 12:50 Drug: Insulin Regular Human 10 units {Co-Signature: sg (Merrick Keller RN).} Route: IVP; iw Site: left wrist; 14:25 Follow up: Response: No adverse reaction; Blood sugar is lowered sg 13:08 Drug: NS 0.9% 1000 ml Route: IV; Rate: 1000 ml; Site: left wrist; sg 14:00 Follow up: Response: No adverse reaction; IV Status: Completed infusion; IV Intake: sg 1000ml 13:16 Drug: fentaNYL (PF) 50 mcg Route: IVP; Site: left wrist; sg Disposition: 07/30/19 14:26 Discharged to Home. Impression: Hyperglycemia, unspecified, Headache, Unspecified abdominal pain, Chest pain, unspecified. - Condition is Stable. - Discharge Instructions: Abdominal Pain, Adult, Nonspecific Chest Pain, General Headache Without Cause, Hyperglycemia, Blood Glucose Monitoring, Adult. - Prescriptions for Bentyl 20 mg Oral Tablet - take 1 tablet by ORAL route every 6 hours As needed; 20 tablet. Fiorinal 50- 325-40 mg Oral Capsule - take 1 capsule by ORAL route every 4 hours As needed - not to exceed 6 capsules per day; 20 capsule. Zofran 4 mg Oral Tablet - take 1 tablet by ORAL route every 12 hours As needed; 20 tablet. - Medication Reconciliation Form, Thank You Letter, Antibiotic Education, Prescription Opioid Use form. - Follow up: Emergency Department; When: As needed; Reason: Worsening of condition. Follow up: Private Physician; When: 2 - 3 days; Reason: Recheck today's complaints, Continuance of care, Re-evaluation by your physician. - Problem is new. - Symptoms have improved. Addendum: 07/31/2019 15:46 Co-signature as Attending Physician, Priti Chin MD. m a2 Signatures: Dispatcher [employer] EDMerrick Wayne RN RN sg Mattie Jacobo RN RN iw Marinas, Patrick, NP MASKING MACHINE OPERATOR pm1 Priti Chin MD MD ma2 Evette Alejandra Leah lt1 Merrick Keller RN sg Corrections: (The following items were deleted from the chart) 07/30 11:45 11:29 Onset: headache started 3 days ago. Diffuse chest pain and epigastric pain that pm1 started yesterday, pm1 14:33 11:29 Modifying factors: the symptoms are aggravated by Patient has not had any of his pm1 insulin since Wednesday. Ran out of 70/30. pm1 15:06 14:26 07/30/2019 14:26 Discharged to Home. Impression: Hyperglycemia, unspecified; lt1 Headache; Unspecified abdominal pain; Chest pain, unspecified. Condition is Stable. Forms are Medication Reconciliation Form, Thank You Letter, Antibiotic Education, Prescription Opioid Use. Follow up: Emergency Department; When: As needed; Reason: Worsening of condition. Follow up: Private Physician; When: 2 - 3 days; Reason: Recheck today's complaints, Continuance of care, Re-evaluation by your physician. Problem is new. Symptoms have improved. pm1
--- NOTE | 2019-07-30 14:27 | ER ---
Nurse's Notes [facility] Name: Alex Auguste Age: 39 yrs Sex: Male : 1980 Arrival Date: 07/30/2019 Time: 10:03 Bed 23 Private MD: Diagnosis: Hyperglycemia, unspecified;Headache;Unspecified abdominal pain;Chest pain, unspecified Presentation: 07/30 10:38 Presenting complaint: Patient states: headache, abd pain, chest pain, vomiting this iw morning. Transition of care: patient was not received from another setting of care. Onset of symptoms was July 30, 2019. Risk Assessment: Do you want to hurt yourself or someone else? Patient reports no desire to harm self or others. Initial Sepsis Screen: Does the patient meet any 2 criteria? No. Patient's initial sepsis screen is negative. Does the patient have a suspected source of infection? No. Patient's initial sepsis screen is negative. Care prior to arrival: None. 10:38 Method Of Arrival: Ambulatory iw 10:38 Acuity: [place] 3 iw Triage Assessment: 15:04 General: Appears in no apparent distress. Behavior is calm. 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 - Social history:: Smoking status: Patient reports the use of cigarette tobacco products. - Ebola Screening: : Patient negative for fever greater than or equal to 101.5 degrees Fahrenheit, and additional compatible Ebola Virus Disease symptoms Patient denies exposure to infectious person Patient denies travel to an Ebola-affected area in the 21 days before illness onset No symptoms or risks identified at this time. Screenin:30 Abuse screen: Denies threats or abuse. Denies injuries from another. Nutritional sg screening: No deficits noted. Tuberculosis screening: No symptoms or risk factors identified. Fall Risk IV access (20 points). Assessment: 11:00 General: Appears in no apparent distress. Behavior is calm, cooperative. Pain: sg Complains of pain in abdomen and epigastric area. Neuro: Level of Consciousness is awake, alert, obeys commands, Oriented to person, place, time, situation, Moves all extremities. Full function. Cardiovascular: Patient's skin is warm and dry. Respiratory: Respiratory effort is even, unlabored, Respiratory pattern is regular, symmetrical. GI: Abdomen is non-distended, Abd is soft and non tender X 4 quads. Reports upper abdominal pain, nausea, vomiting. Derm: Skin is intact, is healthy with good turgor. Musculoskeletal: Range of motion: intact in all extremities. Vital Signs: 10:40 BP 150 / 106; Pulse 118; Resp 18; Temp 98.8; Pulse Ox 100% ; Weight 86.18 kg; Height 5 iw ft. 10 in. (177.80 cm); Pain 10/10; 14:00 BP 121 / 88; sg 14:03 Pulse 100; Resp 16; Temp 98.6; Pulse Ox 96% on R/A; sg 10:40 Body Mass Index 27.26 (86.18 kg, 177.80 cm) iw ED Course: 10:03 Patient arrived in ED. mr 10:39 Triage completed. iw 10:50 Yvon Warren NP is PHCP. pm1 10:50 Priti Chin MD is Attending Physician. pm1 11:05 Mattie Jacobo, KECIA is Primary Nurse. iw 11:05 Arm band placed on. iw 11:10 Initial lab(s) drawn, by me, sent to lab. Inserted saline lock: 20 gauge in left wrist, sg using aseptic technique. 11:16 Radiology exam delayed due to lab results not completed at this time. (BUN/Creatinine). bq 11:24 XRAY Chest (1 view) In Process Unspecified. EDMS 11:30 Patient has correct armband on for positive identification. iw 11:44 Radiology exam delayed due to lab results not completed at this time. (BUN/Creatinine). mw3 11:50 Primary Nurse role handed off by Mattie Jacobo, RN sg 11:50 Merrick Kellre, RN is Primary Nurse. sg 12:55 CT Abdomen - IV Contrast Only In Process Unspecified. EDMS 12:55 CT completed. Patient tolerated procedure well. mw3 12:59 Patient moved back from CT. mw3 15:04 No provider procedures requiring assistance completed. IV discontinued, intact, iw bleeding controlled, No redness/swelling at site. Pressure dressing applied. Administered Medications: 11:26 Drug: NS 0.9% 1000 ml Route: IV; Rate: 1000 ml; Site: left wrist; iw 11:27 Drug: morphine 4 mg Route: IVP; Site: left wrist; iw 12:15 Follow up: Response: No adverse reaction; Pain is decreased iw 11:27 Drug: Zofran 4 mg Route: IVP; Site: left wrist; iw 12:24 Follow up: Response: No adverse reaction iw 12:20 Drug: morphine 4 mg Route: IVP; Site: left wrist; iw 12:20 Drug: Zofran 4 mg Route: IVP; Site: left wrist; iw 12:50 Drug: Insulin Regular Human 10 units {Co-Signature: sg (Merrick Keller RN).} Route: IVP; iw Site: left wrist; 14:25 Follow up: Response: No adverse reaction; Blood sugar is lowered sg 13:08 Drug: NS 0.9% 1000 ml Route: IV; Rate: 1000 ml; Site: left wrist; sg 14:00 Follow up: Response: No adverse reaction; IV Status: Completed infusion; IV Intake: sg 1000ml 13:16 Drug: fentaNYL (PF) 50 mcg Route: IVP; Site: left wrist; sg Intake: 14:00 IV: 1000ml; Total: 1000ml. sg Outcome: 14:26 Discharge ordered by . pm1 15:05 Discharged to home ambulatory. iw 15:05 Condition: good 15:05 Discharge instructions given to patient, family, Instructed on discharge instructions, follow up and referral plans. medication usage, Demonstrated understanding of instructions, follow-up care, medications, Prescriptions given X 1. 15:06 Patient left the ED. lt1 Signatures: Dispatcher [employer] Merrick Potts RN RN sg Petersen, Rosalee mr Summer, Yolanda bq Mattie Jacobo RN RN iw Yvon Warren, MOTOR AND GENERATOR BRUSH CUTTER MOTOR AND GENERATOR BRUSH CUTTER pm1 Loyda Powers mw3 Nkechi Blanchard 1 Merrikc Keller RN sg Corrections: (The following items were deleted from the chart) 13:00 12:55 Patient moved back from [place]. mw3 mw3
[2019-07-30 15:19] VITALS: BP 121/88
[2019-07-30 15:20] VITALS: TEMP 98.6; O2SAT 96
== END 2019-07-30 15:06 | disposition home or self-care (01) ==
LOC: ER 10:00
DX: R51 Headache (principal); R73.9 Hyperglycemia, unspecified; R07.9 Chest pain, unspecified; R10.9 Unspecified abdominal pain; E11.9 Type 2 diabetes mellitus without complications; E78.5 Hyperlipidemia, unspecified; I10 Essential (primary) hypertension; E78.1 Pure hyperglyceridemia
CPT/HCPCS: 36415; 71045; 74160; 80048; 80076; 80320; 81003; 82947; 83690; 83735; 83880; 84484; 85025; 85610; 96361; 96374; 96375; 99284; J2405; J3010; J7030; Q9967

== ENCOUNTER 2019-08-17 20:55 | Observation (INO) | payer SELFPAY ==
--- OUTSIDE RECORDS SUMMARY | 2019-08-17 20:57 | XMS REPORT ---
:1980 [facility] Address [address] [place] [address] Dr. Loya [address] [place] [id number] Care Team Providers Name Role Phone Unavailable Unavailable Unavailable Problems This patient has no known problems. Allergies, Adverse Reactions, Alerts This patient has no known allergies or adverse reactions. Medications This patient has no known medications.
[2019-08-17 21:41] LABS: Protime INR 0.98
[2019-08-17 22:13] LABS: Absolute Lymphocytes (CBC) 1.2 K/uL (0.7-4.9); Basophils % 0.9 % (0-1.3); Hematocrit 40.8 % (39.6-49.0); Lymphocytes % 23.7 % (15.3-44.8); MPV 8.3 fL (7.6-11.3); RBC Red Blood Cell Count 4.84 M/uL (4.33-5.43)
[2019-08-17] MEDS ORDERED: MORPHINE 4 MG/ML SYR ONE (22:22)
--- NOTE | 2019-08-17 23:28 | ER ---
Nurse's Notes [facility] Name: Alex Auguste Age: 39 yrs Sex: Male : 1980 Arrival Date: 08/17/2019 Time: 20:56 Bed 7 Private MD: Diagnosis: Chest pain, unspecified;Shortness of breath Presentation: 08/17 21:42 Presenting complaint: Patient states: CHEST PAIN STARTED TWO HOURS AGO, AND BELLY PAIN rv 30 MINUTES AGO. CHEST PAIN RADIATES TO LEFT SHOULDER, 10/10 PAIN SCALE. DENIES NAUSEA/VOMITING/DIARRHEA/CONSTIPATION. Transition of care: patient was not received from another setting of care. Onset of symptoms was August 17, 2019 at 19:30. Risk Assessment: Do you want to hurt yourself or someone else? Patient reports no desire to harm self or others. Initial Sepsis Screen: Does the patient meet any 2 criteria? No. Patient's initial sepsis screen is negative. Does the patient have a suspected source of infection? No. Patient's initial sepsis screen is negative. Care prior to arrival: None. 21:42 Method Of Arrival: Ambulatory rv 21:42 Acuity: [place] 3 rv Historical: - Allergies: 21:44 No Known Allergies; rv - PMHx: 21:44 ADD/ADHD; Childs's Palsy; Diabetes - IDDM; High Triglycerides; Hyperlipidemia; rv Hypertension; Pancreatitis; - PSHx: 21:44 Cholecystectomy; rv - Immunization history:: Adult Immunizations up to date. - Coronavirus screen:: The patient has NOT traveled to [place], [place], or [place] in the past 14 days. Proceed with normal triage process as indicated. The patient has NOT had contact with known/suspected case of Coronavirus? Proceed with normal triage procedures. - Social history:: Smoking status: Patient reports the use of cigarette tobacco products, smokes one pack cigarettes per day. - Ebola Screening: : No symptoms or risks identified at this time. Screenin:46 Abuse screen: Denies threats or abuse. Denies injuries from another. Nutritional rv screening: No deficits noted. Tuberculosis screening: No symptoms or risk factors identified. Fall Risk None identified. Assessment: 21:44 General: Appears in no apparent distress. Behavior is calm, cooperative. Pain: rv Complains of pain in chest Pain radiates to LEFT SHOULDER Pain currently is 10 out of 10 on a pain scale. Pain began 2 hours ago. Neuro: Level of Consciousness is awake, alert, obeys commands, Oriented to person, place, time, situation. Cardiovascular: Patient's skin is warm and dry. Rhythm is regular. Respiratory: Airway is patent. GI: Reports upper abdominal pain, Pain is 8 out of 10 on a pain scale. Patient currently denies constipation, diarrhea, nausea, vomiting. : No signs and/or symptoms were reported regarding the genitourinary system. 23:19 Reassessment: Patient appears in no apparent distress at this time. Patient and/or aa1 family updated on plan of care and expected duration. Pain level reassessed. Patient is alert, oriented x 3, equal unlabored respirations, skin warm/dry/pink. Awaiting completion of lab results. Hospitalist at bedside speaking with pt \T\ significant other. 08/18 00:24 Reassessment: Patient appears in no apparent distress at this time. Patient and/or rv family updated on plan of care and expected duration. Pain level reassessed. Patient is alert, oriented x 3, equal unlabored respirations, skin warm/dry/pink. patient updated on the results of the diagnostics. Yash talked to the patient and family, patient is for admission and they agreed with the plan. Vital Signs: 08/17 21:07 BP 161 / 108; Pulse 96; Resp 16; Temp 98.0(O); Pulse Ox 100% on R/A; ar5 21:30 BP 152 / 111; Pulse 100; Resp 18; Pulse Ox 99% on R/A; rv 22:09 BP 149 / 113; Pulse 98; Resp 15; Pulse Ox 97% on R/A; rv 23:00 BP 143 / 111; Pulse 97; Resp 16; Pulse Ox 97% on R/A; rv 07 00:00 BP 147 / 104; Pulse 98; Resp 16; Pulse Ox 99% on R/A; rv 01:00 BP 145 / 106; Pulse 97; Resp 17; Pulse Ox 97% on R/A; rv 02:04 BP 144 / 106; Pulse 94; Resp 16; Pulse Ox 97% on R/A; rv ED Course: 08/17 20:56 Patient arrived in ED. jg7 21:00 Yash Galvan FNP-C [facility]. la1 21:00 Manpreet Nina MD is Attending Physician. la1 21:27 Brannon Saul RN is Primary Nurse. rv 21:30 Inserted saline lock: 20 gauge in right antecubital area, using aseptic technique. rv Blood collected. 21:43 Triage completed. rv 21:44 Arm band placed on Patient placed Patient notified of wait time. rv 21:46 Patient has correct armband on for positive identification. shelter monitor on. rv 21:46 Patient maintains SpO2 saturation greater than 95% on room air. rv 23:27 Chace Ramirez is Hospitalizing Provider. la1 08/18 00:24 No provider procedures requiring assistance completed. Patient admitted, IV remains in rv place. 01:45 Notified Nurse Practitioner and/or Physician Personal Care Aide of a critical lab result(s), lp1 Calcium 6.9. Administered Medications: 08/17 21:43 Drug: Nitroglycerin 0.4 mg Route: Sublingual; aa1 08/18 00:25 Follow up: Response: No adverse reaction rv 08/17 21:44 Drug: Aspirin Chewable Tablet 324 mg Route: PO; aa08/18 00:25 Follow up: Response: No adverse reaction rv 08/17 21:44 Drug: Metoprolol 50 mg Route: PO; aa08/18 00:25 Follow up: Response: No adverse reaction rv 08/17 22:28 Drug: morphine 4 mg {Note: rass 0.} Route: IVP; Site: right antecubital; rv 08/18 00:25 Follow up: Response: No adverse reaction; RASS: Alert and Calm (0) rv 01:49 Drug: morphine 4 mg {Note: rass 0.} Route: IVP; Site: right antecubital; rv 02:04 Follow up: Response: Medication administered at discharge. rv 02:02 Drug: Insulin Regular Human 8 units {Co-Signature: jhonny (Reji Siegel).} Route: IVP; rv Site: right antecubital; 02:03 Follow up: Response: Medication administered at discharge. rv Outcome: 08/17 23:28 Decision to Hospitalize by Provider. la08/18 00:25 Condition: good rv 02:04 Admitted to Tele accompanied by tech, via wheelchair, room 422, with chart, Report rv called to BARBY MCDONNELL 02:04 Discharge instructions given to patient, family, Instructed on the need for admit. 02:05 Patient left the ED. rv Signatures: Teodora Resendez RN RN aa1 Blanca Shepard RN RN lp1 Yash Galvan, ALUMINUM FABRICATION SUPERVISOR-C ALUMINUM FABRICATION SUPERVISOR-Cla1 Brannon Saul RN RN rv Juliane Wilder ar5 Priscilla Jaramillo7 [facility]
--- NOTE | 2019-08-17 23:28 | EDPHYS ---
Physician Documentation [facility] Name: Alex Auguste Age: 39 yrs Sex: Male : 1980 Arrival Date: 08/17/2019 Time: 20:56 Bed 7 Private MD: ED Physician Manpreet Nina HPI: 08/17 21:20 This 39 yrs old Male presents to ER via Unassigned with complaints of Chest la1 Pain. 21:20 The patient or guardian reports chest pain that is located primarily in the substernal la1 area. Onset: 2 hour(s) ago. The pain radiates to the left scapula. Associated signs and symptoms: Pertinent positives: shortness of breath, anxiety. The chest pain is described as a pressure, squeezing. Duration: The patient or guardian reports a single episode, that is still ongoing. Severity of pain: At its worst the pain was moderate. The patient has not experienced similar symptoms in the past. pt was resting in bed when the pain began. Historical: - Allergies: 21:44 No Known Allergies; rv - PMHx: 21:44 ADD/ADHD; Childs's Palsy; Diabetes - IDDM; High Triglycerides; Hyperlipidemia; rv Hypertension; Pancreatitis; - PSHx: 21:44 Cholecystectomy; rv - Immunization history:: Adult Immunizations up to date. - Coronavirus screen:: The patient has NOT traveled to [place], [place], or [place] in the past 14 days. Proceed with normal triage process as indicated. The patient has NOT had contact with known/suspected case of Coronavirus? Proceed with normal triage procedures. - Social history:: Smoking status: Patient reports the use of cigarette tobacco products, smokes one pack cigarettes per day. - Ebola Screening: : No symptoms or risks identified at this time. ROS: 21:21 Constitutional: Negative for fever, chills, and weight loss, Eyes: Negative for injury, la1 pain, redness, and discharge, ENT: Negative for injury, pain, and discharge, Neck: Negative for injury, pain, and swelling. 21:21 Abdomen/GI: Negative for abdominal pain, nausea, vomiting, diarrhea, and constipation, Back: Negative for injury and pain, : Negative for injury, bleeding, discharge, and swelling, MS/Extremity: Negative for injury and deformity, Neuro: Negative for headache, weakness, numbness, tingling, and seizure, Endocrine: Negative for neck swelling, polydipsia, polyuria, polyphagia, and marked weight changes. 21:21 Cardiovascular: Positive for chest pain. 21:21 Respiratory: Positive for shortness of breath. Exam: 21:21 Constitutional: This is a well developed, well nourished patient who is awake, alert, la1 and in no acute distress. Head/Face: Normocephalic, atraumatic. Eyes: Pupils equal round and reactive to light, extra-ocular motions intact. Lids and lashes normal. Conjunctiva and sclera are non-icteric and not injected. Cornea within normal limits. Periorbital areas with no swelling, redness, or edema. ENT: Nares patent. No nasal discharge, no septal abnormalities noted. Tympanic membranes are normal and external auditory canals are clear. Oropharynx with no redness, swelling, or masses, exudates, or evidence of obstruction, uvula midline. Mucous membranes moist. Neck: Trachea midline,Supple, full range of motion without nuchal rigidity, or vertebral point tenderness. No Meningismus. Chest/axilla: Normal chest wall appearance and motion. Nontender with no deformity. No lesions are appreciated. Cardiovascular: Regular rate and rhythm with a normal S1 and S2. No gallops, murmurs, or rubs. Normal PMI, no JVD. No pulse deficits. Respiratory: Lungs have equal breath sounds bilaterally, clear to auscultation Abdomen/GI: Soft, non-tender, Back: No spinal tenderness. No costovertebral tenderness. Full range of motion. Male : Normal genitalia with no discharge or lesions. Skin: Warm, dry with normal turgor. Normal color with no rashes, no lesions, and no evidence of cellulitis. MS/ Extremity: Pulses equal, no cyanosis. Neurovascular intact. Full, normal range of motion. 23:28 ECG was reviewed by the Attending Physician. la1 Vital Signs: 21:07 BP 161 / 108; Pulse 96; Resp 16; Temp 98.0(O); Pulse Ox 100% on R/A; ar5 21:30 BP 152 / 111; Pulse 100; Resp 18; Pulse Ox 99% on R/A; rv 22:09 BP 149 / 113; Pulse 98; Resp 15; Pulse Ox 97% on R/A; rv 23:00 BP 143 / 111; Pulse 97; Resp 16; Pulse Ox 97% on R/A; rv 0207 00:00 BP 147 / 104; Pulse 98; Resp 16; Pulse Ox 99% on R/A; rv 01:00 BP 145 / 106; Pulse 97; Resp 17; Pulse Ox 97% on R/A; rv 02:04 BP 144 / 106; Pulse 94; Resp 16; Pulse Ox 97% on R/A; rv MDM: 08/17 21:02 Patient medically screened. la1 23:25 HEART Score: History: Moderately Suspicious (1), ECG: Non specific repolarization la1 disturbance / LBTB / PM (1), Age: < or = 45 years (0), Risk Factors: > or = 3 Risk factors for atherosclerotic disease (2), [Hypercholesterolemia] [Hypertension] [DM] [+ Family HX] Troponin: < or = 1 x Normal Limit (0), Total Score = 4. The patient was given aspirin in the Emergency Department. Data reviewed: vital signs, nurses notes, lab test result(s), EKG, radiologic studies, and as a result, I will admit patient. Data interpreted: Pulse oximetry: on room air is 97 %. Interpretation: normal. Test interpretation: by ED physician or midlevel provider: ECG, plain radiologic studies. Counseling: I had a detailed discussion with the patient and/or guardian regarding: the historical points, exam findings, and any diagnostic results supporting the discharge/admit diagnosis, the presence of at least one elevated blood pressure reading (>120/80) during this emergency department visit, lab results, radiology results, the need for further work-up and treatment in the hospital. 08/17 21:11 Order name: Basic Metabolic Panel la1 08/17 21:11 Order name: LFT's la1 08/17 21:11 Order name: Magnesium la1 08/17 21:11 Order name: NT PRO-BNP la1 08/17 21:11 Order name: Troponin (emerg Dept Use Only) la1 08/17 21:43 Order name: Protime (+INR); Complete Time: 22:25 EDMS 08/17 22:25 Order name: CBC with Automated Diff; Complete Time: 22:25 EDMS 08/17 22:58 Order name: Lipase; Complete Time: 23:01 EDMS 08/18 01:45 Order name: Basic Metabolic Panel EDFL 08/18 01:45 Order name: Liver (Hepatic) Function EDMS 08/18 01:45 Order name: Troponin (Emerg Dept Use Only) EDFL 08/17 21:11 Order name: XRAY Chest (1 view) la1 08/17 21:11 Order name: EKG; Complete Time: 21:12 la1 08/17 21:11 Order name: Cardiac monitoring; Complete Time: 21:28 la1 08/17 21:11 Order name: EKG - Nurse/Tech; Complete Time: 21:28 la1 08/17 21:11 Order name: IV Saline Lock; Complete Time: 21:44 la1 08/17 21:11 Order name: Labs collected and sent; Complete Time: :44 ms1 08/17 21:11 Order name: O2 Per Protocol; Complete Time: 21:28 la1 08/17 21:11 Order name: O2 Sat Monitoring; Complete Time: 21:28 ms1 08/18 01:45 Order name: NT PRO-BNP EDFL 08/18 01:45 Order name: Magnesium EDMS EC:28 Rate is 97 beats/min. Rhythm is regular. LA interval is normal. QRS interval is normal. la1 QT interval is normal. No Q waves. T waves are Inverted in leads III, aVR, V1. No ST changes noted. Clinical impression: NO STEMI. Administered Medications: 21:43 Drug: Nitroglycerin 0.4 mg Route: Sublingual; 08/18 00:25 Follow up: Response: No adverse reaction rv 08/17 21:44 Drug: Aspirin Chewable Tablet 324 mg Route: PO; 08/18 00:25 Follow up: Response: No adverse reaction rv 08/17 21:44 Drug: Metoprolol 50 mg Route: PO; 08/18 00:25 Follow up: Response: No adverse reaction rv 08/17 22:28 Drug: morphine 4 mg {Note: rass 0.} Route: IVP; Site: right antecubital; rv 08/18 00:25 Follow up: Response: No adverse reaction; RASS: Alert and Calm (0) rv 01:49 Drug: morphine 4 mg {Note: rass 0.} Route: IVP; Site: right antecubital; rv 02:04 Follow up: Response: Medication administered at discharge. rv 02:02 Drug: Insulin Regular Human 8 units {Co-Signature: (Reji Siegel).} Route: IVP; rv Site: right antecubital; 02:03 Follow up: Response: Medication administered at discharge. rv Disposition: 09:22 Co-signature as Attending Physician, Manpreet Nina MD I agree with the assessment and maegan plan of care. Disposition: 08/17/19 23:28 Hospitalization ordered by Chace Ramirez for Observation. Preliminary diagnosis are Chest pain, unspecified, Shortness of breath. - Bed requested for Telemetry/MedSurg (observation). - Status is Observation. rv - Condition is Stable. - Problem is new. - Symptoms have improved. Signatures: Dispatcher [employer] Teodora Yee RN RN aa1 Manpreet Nina MD MD cha Attema, Lee, SKEIN WASHER-C SKEIN WASHER-[facility] Cherrie Arzola RN RN cg Brannon Saul RN RN rv [facility] Corrections: (The following items were deleted from the chart) 00:43 08/17 23:28 Hospitalization Ordered by Chace Ramirez for Observation. Preliminary cg diagnosis is Chest pain, unspecified; Shortness of breath. Bed requested for Telemetry/MedSurg (observation). Status is Observation. Condition is Stable. Problem is new. Symptoms have improved. la1 08/18 02:05 00:43 08/17/2019 23:28 Hospitalization Ordered by Chace Ramirez for Observation. rv Preliminary diagnosis is Chest pain, unspecified; Shortness of breath. Bed requested for Telemetry/MedSurg (observation). Status is Observation. Condition is Stable. Problem is new. Symptoms have improved. cg
--- NOTE | 2019-08-18 00:21 | P.HP ---
Certification for Inpatient Patient admitted to: Observation With expected LOS: >2 Midnights Practitioner: I am a practitioner with admitting privileges, knowledge of patient current condition, hospital course, and medical plan of care. 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 History of recurrent pancreatitis from the hypertriglyceridemia presented to the emergency department with a complaint of chest pain of sudden onset, which occurred at rest, radiating to the tip of the left shoulder. Chest pain described as squeezing and chest tightness. No relieving or aggravating factors. Patient denied any sweating or nausea or lightheadedness. His systolic blood pressure was in the 160s on arrival. The patient states he was just started on metoprolol for hypertension. He also reports he has had trouble bringing down his blood sugar to below 200 on his insulin regimen. His EKG in the ED demonstrated sinus rhythm, no ischemic changes. Chest x-ray shows no acute disease. Troponin is negative. Patient is placed under observation for acute coronary syndrome rule out Allergies No Known Drug Allergies Allergy (Verified 05/29/18 03:33) NONE Home Medications: Pantoprazole [Protonix Tab*] 1 tab PO BEDTIME 05/29/18 Trazodone HCl 1 tab PO BEDTIME PRN 05/29/18 gemfibroziL [Lopid*] 1 tab PO BIDAC 05/29/18 Amitriptyline [Elavil*] 25 mg PO BEDTIME 03/04/19 Buspirone HCl [Buspar] 10 mg PO BID 03/04/19 Gabapentin [Neurontin] 800 mg PO BID 03/04/19 Insuln Asp Prt/Insulin Aspart [Novolog Mix 70-30 Vial] 50 unit SQ BID 03/04/19 Niacin (Inositol Niacinate) [Niacin 500 mg Capsule] 500 mg PO BEDTIME 03/04/19 Fluoxetine HCl [Prozac] 1 tab PO DAILY 08/18/19 Metoprolol Tartrate [Lopressor*] 1 tab PO BID 08/18/19 - Past Medical/Surgical History Diabetic: Yes -: pancreatitis due to high triglycerides x4 yrs -: diabetic x5 yrs -: pancreatitis -: cholecystectomy -: fx wrist -: knee surg - Family History Mother -: Heart disease Notes: Recent DC Father -: Stroke Notes: glaucoma - Social History Smoking Status: Light Tobacco smoker (1-9 cigarettes/day) Alcohol use: No CD- Drugs: No Caffeine use: No Review of Systems Other: General: No fever, no malaise, no unintentional weight loss. Eyes: No eye discharge, Respiratory: No cough. He endorsed shortness of breath along with the chest pain CVS: No palpitation, no lightheadedness. GI: No abdominal pain, no nausea no vomit, no constipation, no diarrhea. Genitourinary: No dysuria, no urinary frequency, no incontinence, no hematuria. Musculoskeletal: No joint pains, or joint swelling, no gait instability. Neurology: No headache, no asymmetric weakness, no problem with swallowing. Except as documented, all other systems reviewed and negative. Physical Examination - Physical Exam General: Alert, In no apparent distress, Oriented x3 HEENT: Normocephalic, Mucous membr. moist/pink, Sclerae nonicteric Neck: Supple, JVD not distended Respiratory: Clear to auscultation bilaterally, Normal air movement Cardiovascular: No edema, Normal pulses, Regular rate/rhythm, Normal S1 S2 Capillary refill: <2 Seconds Gastrointestinal: Normal bowel sounds, Soft and benign, Non-distended, No tenderness Musculoskeletal: No swelling, No erythema Integumentary: No rashes, No tenderness/swelling Neurological: Normal speech, Normal strength at 5/5 x4 extr - Studies Laboratory Data (last 24 hrs) 08/17/19 22:25: Lipase 140 08/17/19 21:20: PT 11.6, INR 0.98 08/17/19 21:20: WBC 5.3, Hgb 14.2, Hct 40.8, Plt Count 166 Assessment and Plan - Problems (Diagnosis) (1) Chest pain Current Visit: Yes Status: Acute (2) DM type 2 (diabetes mellitus, type 2) Current Visit: Yes Status: Chronic (3) Hypertension Current Visit: Yes Status: Chronic (4) Hypertriglyceridemia Onset Date: 03/16/17 Current Visit: No Status: Chronic (5) Hyponatremia Current Visit: Yes Status: Acute - Plan Place under observation. Trend troponin Aspirin, gemfibrozil. Check lipid profile Continue metoprolol. Aggressive blood pressure control. Nuclear stress test. - Advance Directives Does patient have a Living Will: No Does patient have a Durable POA for Healthcare: No
[2019-08-18 01:33] LABS: Albumin 3.4 g/dL (3.4-5.0); Alkaline Phosphatase 90 U/L (45-117); BUN Blood Urea Nitrogen 11 mg/dL (7-18); Bicarbonate 25 mmol/L (21-32); Bilirubin Direct < 0.1 mg/dL (0-0.2); Glucose Level 389 mg/dL (74-106); Magnesium 1.8 mg/dL (1.8-2.4); NT PRO-BNP 14 pg/mL (<125); Potassium 3.8 mmol/L (3.5-5.1); Protein, Total 6.8 g/dL (6.4-8.2); Sodium Level 130 mmol/L (136-145); Troponin (Emerg Dept Use Only) < 0.02 ng/mL (0.0-0.045)
[2019-08-18 01:45] LABS: ALT/SGPT < 60 U/L (12-78); AST/SGOT 40 U/L (15-37)
[2019-08-18] MEDS ORDERED: MORPHINE 4 MG/ML SYR ONE (01:48)
[2019-08-18] MEDS ORDERED: INSULIN -REGULAR HUMAN 50 UNIT/0.5 ML ML ONE (02:01)
[2019-08-18] MEDS ORDERED: NITROGLYCERIN 0.4 MG/TAB SL PRN (02:22)
[2019-08-18 02:31] VITALS: BMI 25.9
[2019-08-18 05:15] LABS: HDL Cholesterol 21 mg/dL (40-60); LDL Cholesterol, Calculated ND (<130); Troponin I < 0.02 ng/mL (0.0-0.045)
[2019-08-18 05:27] LABS: LDL, Direct 95 mg/dL (100-129)
[2019-08-18 05:54] LABS: Urine Appearance CLEAR; Urine Bilirubin NEGATIVE (NEG); Urine Blood NEGATIVE (NEG); Urine Color YELLOW; Urine Glucose 3+ (NEG); Urine Protein NEGATIVE (NEG); Urine Specific Gravity >=1.030 (1.005-1.030); Urine pH 6.5 (5.0-7.0)
[2019-08-18 06:31] LABS: Urine Microscopic Reflex NO UMIC
[2019-08-18] MEDS ORDERED: REGADENOSON 0.4 MG/5 ML SYR IV ONE (07:39)
[2019-08-18] MEDS: ONDANSETRON 4 MG/2 ML VIAL IV PRN ×2 (07:39→17:19)
[2019-08-18] MEDS ORDERED: FAMOTIDINE 20 MG/2 ML VIAL IV ONE (07:42)
[2019-08-18] MEDS: NICOTINE 14 MG/PAT TD SCH (07:52)
--- NOTE | 2019-08-18 08:45 | EKG ---
Test Date: 2019-08-17 Test Time: 21:03:35 Executive Assistant To General Counsel: SCOTT MEASUREMENT RESULTS: Intervals: Rate: 97 MN: 130 QRSD: 82 QT: 340 QTc: 431 Brandt: P: 44 MN: 130 QRS: 61 T: 5 INTERPRETIVE STATEMENTS: Normal sinus rhythm Possible Left atrial enlargement Borderline ECG Compared to ECG 03/07/2019 08:58:03 ST (T wave) deviation no longer present Electronically Signed On 08-18-19 08:44:21 SENIOR ESCROW OFFICER by Sixto Reilly
[2019-08-18] MEDS ORDERED: METOPROLOL TAR 50 MG TAB PO SCH (09:00)
[2019-08-18] MEDS: INSULIN -REGULAR HUMAN 50 UNIT/0.5 ML ML SQ SCH ×4 (09:00→21:11)
[2019-08-18] MEDS: MORPHINE 4 MG/ML SYR IV PRN ×4 (09:30→20:52)
--- NOTE | 2019-08-18 09:41 | RAD REPORT ---
EXAM DESCRIPTION: RAD - Chest Single View - 08/17/2019 9:19 pm CLINICAL HISTORY: CHEST PAIN COMPARISON: Chest Single View dated 07/30/2019 TECHNIQUE: AP portable chest image was obtained 08/17/2019 9:19 pm . FINDINGS: Low lung volumes noted. Lung bernal are clear. Heart and vasculature are normal. No measur able pleural effusion and no pneumothorax. No acute bony abnormality seen. No acute aortic findings s uspected. IMPRESSION: No acute cardiopulmonary process. No significant interval change.
--- NOTE | 2019-08-18 09:43 | RAD REPORT ---
EXAM DESCRIPTION: NM - Rest Stress Cardiac Imaging - 08/18/2019 9:33 am CLINICAL HISTORY: Chest pain COMPARISON: None. TECHNIQUE: The patient was administered 10.9 mCi of Tc 99m Sestamibi prior to resting SPECT imaging of the heart. The patient was then administered 31.9 mCi of Tc 99m Sestamibi following exercise or ph armacologic stress. Multiplanar SPECT images were reviewed. FINDINGS: The end diastolic volume is 78 ml, the end systolic volume is 28 ml, and the ejection frac tion is 65 %. Physiologic distribution of the radiopharmaceutical through the myocardium is noted. No stress induce d ischemic defect is seen to suggest stress induced ischemia. No fixed defect is seen to suggest hibe rnating myocardium or scarred myocardium. The slight decrease in activity along the inferolateral ba se is unchanged between rest and stress imaging and believed to be attenuation artifact from the diap hragm. IMPRESSION: No stress induced ischemia or other suspicious findings. Ventricular volumes and ejection fraction well within normal range.
[2019-08-18] MEDS ORDERED: PNEUMOCOCCAL VACCINE 0.5 ML IMVAC ONE (10:00)
[2019-08-18] MEDS ORDERED: INFLUENZA VACCINE (for 3y+) 0.5 ML DOSE IMVAC ONE (10:00)
[2019-08-18] MEDS: ASPIRIN EC 81 MG TAB PO SCH (10:11)
[2019-08-18] MEDS: ENOXAPARIN 40 MG/0.4 ML SQ SCH (10:12)
[2019-08-18] MEDS ORDERED: CALCIUM GLUC 10% INJ 9.3 MEQ in NA CHLORIDE 0.9% 100 ML IV ONE (12:05)
--- NOTE | 2019-08-18 12:13 | P.PN ---
Subjective Date of Service: 08/18/19 Chief Complaint: Chest pain Subjective: No new changes, No C/O voiced Review of Systems is unable to be obtained Physical Examination - Vital Signs Temperature: 97.8 F Blood Pressure: 149/93 Pulse: 100 Respirations: 18 Pulse Ox (%): 96 - Physical Exam General: In no apparent distress, Oriented x3 HEENT: Atraumatic, Normocephalic, PERRLA Neck: Supple, 2+ carotid pulse no bruit Respiratory: Clear to auscultation bilaterally, Normal air movement Cardiovascular: No edema, Normal pulses, Regular rate/rhythm, Normal S1 S2 Gastrointestinal: Normal bowel sounds, Soft and benign, Non-distended Musculoskeletal: No clubbing, No swelling Integumentary: No rashes, No breakdown Neurological: Normal speech, Normal strength at 5/5 x4 extr, Normal tone - Studies Laboratory Data (last 24 hrs) 08/17/19 23:59: Sodium 130 L, Potassium 3.8, BUN 11, Creatinine 0.73, Glucose 389 H, Magnesium 1.8, Total Bilirubin 1.0, AST 40 H, ALT < 60, Alkaline Phosphatase 90 08/17/19 22:25: Lipase 140 08/17/19 21:20: PT 11.6, INR 0.98 08/17/19 21:20: WBC 5.3, Hgb 14.2, Hct 40.8, Plt Count 166 Medications List Reviewed: Yes Assessment & Plan - Problems (Diagnosis) (1) Chest pain Current Visit: Yes Status: Acute (2) Hypocalcemia Current Visit: Yes Status: Acute (3) Hyponatremia Current Visit: Yes Status: Acute (4) DM type 2 (diabetes mellitus, type 2) Current Visit: Yes Status: Chronic (5) Hypertension Current Visit: Yes Status: Chronic (6) Dyslipidemia Onset Date: 04/21/17 Current Visit: No Status: Chronic Physician Review: Patient Assessed, Agree with Above Assessment and Plan Physician Review Additional Text: Chest pain-ruled out with serial sets of cardiac enzymes, he underwent a stress test which was negative with normal EF. Patient is currently chest pain-free. Hypertension-controlled Hyponatremia-followed repeat baby due to hyperglycemia Hypocalcemia - may be due to elevated triglyceride, continue gemfibrozil -will add low dose statin Hyperlipidemia - marked elevated TG at > 3 K -since causing hypoglycemia , will dose IV insulin and follow repeat level in am DM with elevated glucose - c/w insulin sliding scale -dose 10 unit IV now
[2019-08-18] MEDS ORDERED: GLUCAGON 1 MG/VIAL IM PRN (12:48)
[2019-08-18] MEDS ORDERED: D50W 25 GM/50 ML SYRINGE/VIAL IV PRN (12:48)
[2019-08-18] MEDS ORDERED: INSULIN -REGULAR HUMAN 50 UNIT/0.5 ML ML IV ONE (12:48)
[2019-08-18 13:04] LABS: BUN Blood Urea Nitrogen 11 mg/dL (7-18); Bicarbonate 27 mmol/L (21-32); Glucose Level 337 mg/dL (74-106); Potassium 3.8 mmol/L (3.5-5.1); Sodium Level 137 mmol/L (136-145)
--- NOTE | 2019-08-18 14:22 | TREADPHA ---
DX: CHEST PAIN, HIGH CORNARY ARTERY DISEASE RISK FACTORS Date of Study: 08/18/2019 Ht: 5 10 Wt: 180 lb 12.8 oz Consulting Physician: GABRIELLA MEDICATIONS: ASPIRIN, LOVENOX, NOVOLIN-R, LOPRESSOR, NITROSTAT HISTORY: 39 YEAR OLD WITH COMPLAINTS OF CHEST PAIN. MEDICAL HISTORY OF ATTENTION DEFICIT DISORDER/ ATTENTION DEFICIT HYPERACTIVITY DISORDER, BELLS PALSY, DIABETES MELLITUS, HYPERTENSION, PANCREATITS, POSITIVE SMOKER. PHYSICIAL EXAMINATION: RESTING B.P.: 114/108 RESTING H.R.: 100 RESTING EKG: NORMAL PROTOCOL: PHARMACOLOGIC EXERCISE TIME: 3:30 B.P. AT PEAK STRESS: 200/177 IMPRESSION: LEXISCAN INJECTED. CARDIOLITE INJECTED PER PROTOCOL. SEE NUCLEAR MEDICINE REPORT. NO SUPRAVENTRICULAR TACHYCARDIA, NO VENTRICULAR TACHYCARDIA, NO PREMATURE VENTRICULAR COMPLEXES. CHEST PAIN EIGHT OUT OF TEN ON PAIN SCALE THROUGHOUT ONE OUT OF TEN AFTER INJECTION. NON-DIAGNOSTIC ELECTOCARDIOGRAM WITH LEXISCAN STRESS.
[2019-08-18] MEDS ORDERED: HOME MED 1 EA UNK (Trazodone Hcl [Trazodone Hcl] 1 TAB) PO PRN (15:13)
[2019-08-18] MEDS: INSULIN ASPART SQ SCH ×2 (15:30→21:00)
[2019-08-18] MEDS: INSULIN ASPART PROTAMINE SQ SCH ×2 (15:30→21:00)
[2019-08-18] MEDS: METOPROLOL TAR 25 MG TAB PO SCH (17:07)
[2019-08-18 20:37] VITALS: O2SAT 97
[2019-08-18] MEDS ORDERED: INSULIN ASPART SQ SCH (21:00)
[2019-08-18] MEDS ORDERED: INSULIN ASPART PROTAMINE SQ SCH (21:00)
[2019-08-18] MEDS ORDERED: HOME MED 1 EA UNK (Gabapentin [Neurontin] 800 MG) PO SCH (21:00)
[2019-08-18] MEDS ORDERED: AMITRIPTYLINE 25 MG TAB PO SCH (21:00)
[2019-08-18] MEDS ORDERED: HOME MED 1 EA UNK (Buspirone Hcl [Buspar] 10 MG) PO SCH (21:00)
[2019-08-18] MEDS ORDERED: NIACIN 500 MG PO SCH (21:00)
[2019-08-18] MEDS ORDERED: BUSPIRONE HCL 5 MG TABLET PO SCH (21:00)
[2019-08-18] MEDS ORDERED: NIACIN 500 MG SR TAB PO SCH (21:00)
[2019-08-18] MEDS: BUSPIRONE HCL 5 MG TABLET PO SCH (21:10)
[2019-08-18] MEDS: GABAPENTIN 400 MG CAP PO SCH (21:10)
[2019-08-19] MEDS: ACETAMINOPHEN 325 MG TABLET PO PRN ×2 (00:01→05:36)
[2019-08-19] MEDS: MORPHINE 4 MG/ML SYR IV PRN ×3 (04:41→13:23)
[2019-08-19] MEDS: ONDANSETRON 4 MG/2 ML VIAL IV PRN (04:41)
[2019-08-19] MEDS: METOPROLOL TAR 25 MG TAB PO SCH (05:36)
[2019-08-19 06:19] LABS: Absolute Lymphocytes (CBC) 0.8 K/uL (0.7-4.9); Basophils % 0.5 % (0-1.3); Hematocrit 39.8 % (39.6-49.0); Lymphocytes % 11.4 % (15.3-44.8); RBC Red Blood Cell Count 4.79 M/uL (4.33-5.43)
[2019-08-19 06:22] LABS: MPV 7.4 fL (7.6-11.3)
[2019-08-19] MEDS ORDERED: PANTOPRAZOLE 40MG TABLET PO SCH (06:30)
[2019-08-19 07:05] LABS: ALT/SGPT 23 U/L (12-78); AST/SGOT 15 U/L (15-37); Albumin 3.6 g/dL (3.4-5.0); Alkaline Phosphatase 89 U/L (45-117); BUN Blood Urea Nitrogen 14 mg/dL (7-18); Bicarbonate 24 mmol/L (21-32); Bilirubin Total 1.6 mg/dL (0.2-1.0); Glucose Level 306 mg/dL (74-106); HDL Cholesterol 31 mg/dL (40-60); LDL Cholesterol, Calculated ND (<130); Potassium 3.4 mmol/L (3.5-5.1); Protein, Total 7.3 g/dL (6.4-8.2); Sodium Level 133 mmol/L (136-145)
[2019-08-19 07:19] LABS: LDL, Direct 76 mg/dL (100-129)
[2019-08-19] MEDS ORDERED: POTASSIUM 25 MEQ EFFERV TAB PO ONE (08:15)
[2019-08-19] MEDS: INSULIN ASPART PROTAMINE SQ SCH ×2 (08:15→09:00)
[2019-08-19] MEDS: INSULIN ASPART SQ SCH ×2 (08:15→09:00)
[2019-08-19] MEDS: BUSPIRONE HCL 5 MG TABLET PO SCH (08:33)
[2019-08-19] MEDS: ASPIRIN EC 81 MG TAB PO SCH (08:33)
[2019-08-19] MEDS: GABAPENTIN 400 MG CAP PO SCH (08:33)
[2019-08-19] MEDS: NICOTINE 14 MG/PAT TD SCH (08:34)
[2019-08-19] MEDS: ENOXAPARIN 40 MG/0.4 ML SQ SCH (08:34)
[2019-08-19] MEDS: INSULIN -REGULAR HUMAN 50 UNIT/0.5 ML ML SQ SCH ×2 (08:35→11:30)
[2019-08-19] MEDS ORDERED: FLUOXETINE 20 MG CAP PO SCH (09:00)
--- NOTE | 2019-08-19 12:46 | P.DS ---
Admission Date: 08/18/19 Discharge Date: 08/19/19 Disposition: ROUTINE DISCHARGE Discharge Condition: GOOD Reason for Admission: Chest pain - Problems (1) Chest pain Current Visit: Yes Status: Acute (2) Hypocalcemia Current Visit: Yes Status: Acute (3) Hyponatremia Current Visit: Yes Status: Acute (4) DM type 2 (diabetes mellitus, type 2) Current Visit: Yes Status: Chronic (5) Hypertension Current Visit: Yes Status: Chronic (6) Dyslipidemia Onset Date: 04/21/17 Current Visit: No Status: Chronic Brief History of Present Illness: History of Present Illness: 39-year-old man with a history of hypertriglyceridemia, uncontolled DM type 2 and being evaluated for CN 6 palsy. History of recurrent pancreatitis from the hypertriglyceridemia presented to the emergency department with a complaint of chest pain of sudden onset, which occurred at rest, radiating to the tip of the left shoulder. Chest pain described as squeezing and chest tightness. No relieving or aggravating factors. Patient denied any sweating or nausea or lightheadedness. His systolic blood pressure was in the 160s on arrival. The patient states he was just started on metoprolol for hypertension. He also reports he has had trouble bringing down his blood sugar to below 200 on his insulin regimen. His EKG in the ED demonstrated sinus rhythm, no ischemic changes. Chest x-ray shows no acute disease. Troponin is negative. Patient is placed under observation for acute coronary syndrome rule out Hospital Course: Patient with Primary triglyceridemia ,DM , who presented because of atypical chest pain. He was ruled out for acute coronary syndrome with negative sets of cardiac enzymes. Given his marked elevated triglyceride of over 3121, He underwent a nuclear stress with normal myocardial perfusion EF of 57%. He had difficult to control blood glucose and his home dose of insulin was increased to 75 units b.i.d. we started to improve his glucose. He was also given intermittent doses of IV insulin with subsequent improvement in triglyceride 100880 today. Option of hormonal therapy for his lipid control vs plasmapheresis as outpatient has been discussed with him. He will be discharged home today . Vital Signs/Physical Exam: Temp Pulse Resp BP Pulse Ox 97.5 F 94 H 97 H 126/81 97 08/19/19 08:00 08/19/19 08:00 08/19/19 09:42 08/19/19 08:00 08/19/19 09:12 General: Alert, In no apparent distress, Oriented x3 HEENT: Atraumatic, Normocephalic Neck: Supple, 2+ carotid pulse no bruit Respiratory: Clear to auscultation bilaterally, Normal air movement Cardiovascular: No edema, Regular rate/rhythm, Normal S1 S2 Gastrointestinal: Normal bowel sounds, Soft and benign, Non-distended, No ascites Musculoskeletal: No clubbing, No swelling Integumentary: No rashes, No breakdown Neurological: Normal speech, Normal strength at 5/5 x4 extr, Sensation intact Laboratory Data at Discharge: WBC 6.7 K/uL (4.3-10.9) D 08/19/19 05:15 Hgb 13.9 g/dL (13.6-17.9) 08/19/19 05:15 Hct 39.8 % (39.6-49.0) 08/19/19 05:15 Plt Count 118 K/uL (152-406) L D 08/19/19 05:15 PT 11.6 SECONDS (9.5-12.5) 08/17/19 21:20 INR 0.98 08/17/19 21:20 Sodium 133 mmol/L (136-145) L 08/19/19 05:15 Potassium 3.4 mmol/L (3.5-5.1) L 08/19/19 05:15 BUN 14 mg/dL (7-18) 08/19/19 05:15 Creatinine 0.71 mg/dL (0.55-1.3) 08/19/19 05:15 Glucose 306 mg/dL (74-106) H 08/19/19 05:15 Magnesium 1.8 mg/dL (1.8-2.4) 08/17/19 23:59 Total Bilirubin 1.6 mg/dL (0.2-1.0) H 08/19/19 05:15 AST 15 U/L (15-37) 08/19/19 05:15 ALT 23 U/L (12-78) 08/19/19 05:15 Alkaline Phosphatase 89 U/L (45-117) 08/19/19 05:15 Troponin I < 0.02 ng/mL (0.0-0.045) 08/18/19 08:06 Triglycerides 2131 mg/dL (<150) H 08/19/19 05:15 Cholesterol 265 mg/dL (<200) H 08/19/19 05:15 LDL Cholesterol Direct 76 mg/dL (100-129) L 08/19/19 05:15 HDL Cholesterol 31 mg/dL (40-60) L 08/19/19 05:15 Cholesterol/HDL Ratio 8.55 08/19/19 05:15 Lipase 140 U/L (73-393) 08/17/19 22:25 Home Medications: Pantoprazole [Protonix Tab*] 1 tab PO BEDTIME 05/29/18 Trazodone HCl 1 tab PO BEDTIME PRN 05/29/18 gemfibroziL [Lopid*] 1 tab PO BIDAC 05/29/18 Amitriptyline [Elavil*] 25 mg PO BEDTIME 03/04/19 Buspirone HCl [Buspar] 10 mg PO BID 03/04/19 Gabapentin [Neurontin] 800 mg PO BID 03/04/19 Niacin (Inositol Niacinate) [Niacin 500 mg Capsule] 500 mg PO BEDTIME 03/04/19 Atorvastatin Calcium 20 mg PO DAILY #30 tablet 08/18/19 Calcium Carbonate/Vitamin D3 [Calcium 500 + Vit D 400 Tablet] 1 each PO BID #60 tablet 08/18/19 Fluoxetine HCl [Prozac] 1 tab PO DAILY 08/18/19 Metoprolol Tartrate [Lopressor*] 1 tab PO BID 08/18/19 Insuln Asp Prt/Insulin Aspart [Novolog Mix 70-30 Vial] 75 unit SQ BID #1 bottle 08/19/19 New Medications: Atorvastatin Calcium 20 mg PO DAILY #30 tablet Calcium Carbonate/Vitamin D3 [Calcium 500 + Vit D 400 Tablet] 1 each PO BID #60 tablet Insuln Asp Prt/Insulin Aspart [Novolog Mix 70-30 Vial] 75 unit SQ BID #1 bottle Patient Discharge Instructions: follow up with your PCP in 1 week Diet: ADA Activity: Ad harsha Time spent managing pt's care (in minutes): 35
[2019-08-19 13:09] VITALS: BP 125/91; TEMP 96.8
== END 2019-08-19 13:48 | disposition home or self-care (01) ==
LOC: ER 20:55 → ERHOLD 08-18 00:48 → 4TH 08-18 01:55
PROVIDERS: ADMIT Internal Medicine; ATTEND Internal Medicine
DX: R07.9 Chest pain, unspecified (principal); E11.9 Type 2 diabetes mellitus without complications; I10 Essential (primary) hypertension; E78.1 Pure hyperglyceridemia; E87.1 Hypo-osmolality and hyponatremia; E83.51 Hypocalcemia; F17.210 Nicotine dependence, cigarettes, uncomplicated
CPT/HCPCS: 36415; 71045; 78452; 80048; 80053; 80061; 80076; 81003; 82330; 82947; 83690; 83735; 83880; 83970; 84484; 85025; 85610; 93005; 93017; 94760; 96374; 96375; 99285; A9500; G0378; J0610; J1650; J2405; J2785

== ENCOUNTER 2020-01-08 23:35 | Emergency (ER) | payer BC ==
--- OUTSIDE RECORDS SUMMARY | 2020-01-08 23:38 | XMS REPORT | Continuity of Care Document ---
:1980 Author Organization [facility] t Address [address] [place] [address] Dr. Loya [address] [place] [id number] Care Team Providers Name Role Phone Unavailable Unavailable Unavailable Problems This patient has no known problems. Allergies, Adverse Reactions, Alerts This patient has no known allergies or adverse reactions. Medications This patient has no known medications. Procedures This patient has no known procedures. Results This patient has no known results.
[2020-01-09] MEDS ORDERED: ONDANSETRON 4 MG/2 ML VIAL ONE (01:07)
[2020-01-09] MEDS ORDERED: MORPHINE 4 MG/ML SYR ONE (01:07)
[2020-01-09] MEDS ORDERED: NA CHLORIDE 0.9% 1,000 ML ONE (01:07)
[2020-01-09] MEDS ORDERED: LIDOCAINE VISCOUS 2% SOLN 15 ML UDC ONE (02:16)
[2020-01-09] MEDS ORDERED: MAGNE/ALUM HYDROXD 30 ML UCUP ONE (02:16)
--- NOTE | 2020-01-09 02:43 | EDPHYS ---
Physician Documentation [facility] Name: Alex Auguste Age: 39 yrs Sex: Male : 1980 Arrival Date: 01/08/2020 Time: 23:37 Bed 18 Private MD: ED Physician Chadd Willis HPI: 01/08 01:07 This 39 yrs old Male presents to ER via Ambulatory with complaints of jr8 Abdominal Pain, Vomiting. 01:07 The patient presents with abdominal pain in the epigastric area, in the upper abdomen. jr8 Onset: The symptoms/episode began/occurred gradually, 2 week(s) ago, and became worse today, and became persistent today. 01:07 The symptoms do not radiate. Associated signs and symptoms: Pertinent positives: nausea jr8 and vomiting. The symptoms are described as stabbing. Modifying factors: The symptoms are alleviated by nothing, the symptoms are aggravated by food. Severity of pain: At its worst the pain was moderate in the emergency department the pain is unchanged. The patient has not experienced similar symptoms in the past. The patient has been recently seen by a physician:. Patient stated that he has pancreatitis secondary to hypertriglyceridemia. Stated that he started to have continuous vomiting and upper abdominal pain for past couple of weeks. Stated that he saw his GI who ordered labs and CT. Could not hold down contrast so couldn't get CT done today. Came back tonight for continued pain . 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 - Social history:: Patient/guardian denies using alcohol, street drugs, tobacco products, Smoking status: Patient reports the use of cigarette tobacco products, smokes one-half pack cigarettes per day, Patient/guardian denies using. ROS: 01/08 01:07 Eyes: Negative for injury, pain, redness, and discharge, ENT: Negative for injury, jr8 pain, and discharge, Neck: Negative for injury, pain, and swelling, Cardiovascular: Negative for chest pain, palpitations, and edema, Respiratory: Negative for shortness of breath, cough, wheezing, and pleuritic chest pain, Back: Negative for injury and pain, MS/Extremity: Negative for injury and deformity, Skin: Negative for injury, rash, and discoloration, Neuro: Negative for headache, weakness, numbness, tingling, and seizure. Abdomen/GI: Positive for abdominal pain, nausea and vomiting, Negative for diarrhea, constipation, abdominal cramps, abdominal distension. Exam: 01:07 Eyes: Pupils equal round and reactive to light, extra-ocular motions intact. Lids and jr8 lashes normal. Conjunctiva and sclera are non-icteric and not injected. Cornea within normal limits. Periorbital areas with no swelling, redness, or edema. ENT: Nares patent. No nasal discharge, no septal abnormalities noted. Tympanic membranes are normal and external auditory canals are clear. Oropharynx with no redness, swelling, or masses, exudates, or evidence of obstruction, uvula midline. Mucous membranes moist. Neck: Trachea midline, no thyromegaly or masses palpated, and no cervical lymphadenopathy. Supple, full range of motion without nuchal rigidity, or vertebral point tenderness. No Meningismus. Cardiovascular: Regular rate and rhythm with a normal S1 and S2. No gallops, murmurs, or rubs. Normal PMI, no JVD. No pulse deficits. Respiratory: Lungs have equal breath sounds bilaterally, clear to auscultation and percussion. No rales, rhonchi or wheezes noted. No increased work of breathing, no retractions or nasal flaring. Back: No spinal tenderness. No costovertebral tenderness. Full range of motion. Skin: Warm, dry with normal turgor. Normal color with no rashes, no lesions, and no evidence of cellulitis. MS/ Extremity: Pulses equal, no cyanosis. Neurovascular intact. Full, normal range of motion. Neuro: Awake and alert, GCS 15, oriented to person, place, time, and situation. Cranial nerves II-XII grossly intact. Motor strength 5/5 in all extremities. Sensory grossly intact. Cerebellar exam normal. Normal gait. 01:07 Abdomen/GI: Inspection: abdomen appears normal, Bowel sounds: active, all quadrants, Palpation: soft, in all quadrants, moderate abdominal tenderness, in the epigastric area, mass, is not appreciated, rebound tenderness, is not appreciated, voluntary guarding, is not appreciated, involuntary guarding, is not appreciated, no appreciated organomegaly, Indicators: McBurney's point is not tender, Trivedi's sign is negative, Rovsing's sign is negative, Liver: tenderness, is not appreciated. Vital Signs: 01/07 23:44 BP 130 / 101; Pulse 105; Resp 18; Temp 98.2; Pulse Ox 95% ; Pain 9/10; ll1 01/08 01:00 BP 131 / 91; Pulse 87; Resp 18; Pulse Ox 100% on R/A; wh 02:00 BP 133 / 89; Pulse 80; Resp 18; Pulse Ox 99% on R/A; wh 03:15 BP 112 / 82; Pulse 80; Resp 18; Pulse Ox 99% on R/A; MDM: 01/07 23:53 Patient medically screened. jr8 01/08 02:40 Data reviewed: vital signs, nurses notes, lab test result(s), radiologic studies, CT jr8 scan. Data interpreted: Pulse oximetry: on room air is 95 %. Interpretation: normal. 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 Special discussion: Based on the patient's Hx, exam, and Dx evaluation, there is no indication for emergent surgery or inpatient Tx. It is understood by the patient/guardian that if the Sx's persist or worsen they need to return immediately for re-evaluation. 02:41 ED course: Reviewed Blood work that patient had at 11 am earlier today. No acute jr8 findings. CT with pancreatic cyst but no other acute findings. Will send home to f/u with Darshana . 01/07 23:54 Order name: COVID-19 jr8 01/08 03:09 Order name: CREATININE WHOLE BLOOD; Complete Time: 03:11 EDCO 01/07 23:54 Order name: IV Saline Lock; Complete Time: 01:20 jr8 01/07 23:54 Order name: Labs collected and sent; Complete Time: 01:20 jr8 01/08 01:00 Order name: CT Abd/Pelvis - IV Contrast Only jr8 Administered Medications: 01:16 Drug: NS 0.9% 1000 ml Route: IV; Rate: 1000 ml; Site: right antecubital; 03:23 Follow up: Response: No adverse reaction; IV Status: Completed infusion 01:18 Drug: morphine 4 mg {Note: RASS 0.} Route: IVP; Site: right antecubital; 03:23 Follow up: Response: No adverse reaction; Pain is unchanged, physician notified 01:20 Drug: Zofran (Ondansetron) 4 mg Route: IVP; Site: right antecubital; 03:23 Follow up: Response: No adverse reaction; Nausea is decreased 02:26 Drug: GI Cocktail without - (Maalox Suspension 30 ml, Lidocaine Liquid 2 % 15 wh ml) Route: PO; 03:23 Follow up: Response: No adverse reaction; Pain is decreased Disposition: 05:27 Co-signature as Attending Physician, Chadd Willis MD. 7 Disposition: 01/09/20 02:42 Discharged to Home. Impression: Pseudocyst of pancreas, Upper abdominal pain, unspecified, Vomiting. - Condition is Stable. - Discharge Instructions: Abdominal Pain, Adult, Nausea and Vomiting, Adult. - Medication Reconciliation Form, Thank You Letter, Antibiotic Education, Prescription Opioid Use form. - Follow up: Jose Rafael Gilliland MD; When: 2 - 3 days; Reason: Recheck today's complaints, Continuance of care, Re-evaluation by your physician. - Problem is new. - Symptoms have improved. Signatures: Dispatcher [employer] EDCO Remi Mo PA PA jr8 Reji Siegel Vijay Menard RN RN ll1 Chadd Willis MD MD 7 Marley, Kvng tt3 Corrections: (The following items were deleted from the chart) 01:09 01:07 Onset: The symptoms/episode began/occurred gradually, erin jr8 03:03 01/07 23:54 CBC+H.LAB.BRZ ordered. EDCO EDMS 01/08 03:04 01/07 23:54 BASIC METABOLIC PANEL+C.LAB.BRZ ordered. EDMS EDMS 01/08 03:04 01/07 23:54 HEPATIC FUNCTION+C.LAB.BRZ ordered. EDCO EDMS 01/08 03:04 01/07 23:54 LIPASE+C.LAB.BRZ ordered. [facility] 01/08 03:25 02:42 01/09/2020 02:42 Discharged to Home. Impression: Pseudocyst of pancreas; Upper wh abdominal pain, unspecified; Vomiting. Condition is Stable. Forms are Medication Reconciliation Form, Thank You Letter, Antibiotic Education, Prescription Opioid Use. Follow up: Jose Rafael Gilliland; When: 2 - 3 days; Reason: Recheck today's complaints, Continuance of care, Re-evaluation by your physician. Problem is new. Symptoms have improved. jr8 03:56 03:25 01/09/2020 02:42 Discharged to Home. Impression: Pseudocyst of pancreas; Upper tt3 abdominal pain, unspecified; Vomiting. Condition is Stable. Discharge Instructions: Abdominal Pain, Adult, Nausea and Vomiting, Adult. Forms are Medication Reconciliation Form, Thank You Letter, Antibiotic Education, Prescription Opioid Use. Follow up: Jose Rafael Gilliland; When: 2 - 3 days; Reason: Recheck today's complaints, Continuance of care, Re-evaluation by your physician. Problem is new. Symptoms have improved.
--- NOTE | 2020-01-09 02:43 | ER ---
Nurse's Notes [facility] Name: Alex Auguste Age: 39 yrs Sex: Male : 1980 Arrival Date: 01/08/2020 Time: 23:37 Bed 18 Private MD: Diagnosis: Pseudocyst of pancreas;Upper abdominal pain, unspecified;Vomiting Presentation: 01/07 23:44 Chief complaint: Patient states: N/V for 2 weeks with epigastric pain. + diarrhea with ll1 low grade fever. Coronavirus screen: Surgical mask placed on patient. Patient moved to private room, placed in contact and droplet isolation with eye protection until further assessment. Patient reports a cough. Patient reports shortness of breath or difficulty breathing. Patient reports a measured and/or subjective temperature greater than 100.4F. Patient denies travel on a cruise ship or to a country the [facility] currently lists as an affected area. Patient denies contact with known and/or suspected case of COVID-19. Ebola Screen: Patient denies travel to an Ebola-affected area in the 21 days before illness onset. Initial Sepsis Screen: Does the patient meet any 2 criteria? HR > 90 bpm. Risk Assessment: Do you want to hurt yourself or someone else? Patient reports no desire to harm self or others. Onset of symptoms was December 24, 2019. 23:44 Method Of Arrival: Ambulatory ll1 23:44 Acuity: [place] 3 ll1 01/08 00:50 Initial Sepsis Screen: Does the patient have a suspected source of infection? Yes: wh Acute abdominal pain. 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 - Social history:: Patient/guardian denies using alcohol, street drugs, tobacco products, Smoking status: Patient reports the use of cigarette tobacco products, smokes one-half pack cigarettes per day, Patient/guardian denies using. Screenin/30 01:00 Abuse screen: Denies threats or abuse. Denies injuries from another. Nutritional wh screening: No deficits noted. Tuberculosis screening: No symptoms or risk factors identified. Fall Risk None identified. Assessment: 00:10 General: Appears in no apparent distress. Behavior is calm, cooperative, appropriate wh for age. Pain: Complains of pain in epigastric area Pain does not radiate. Pain currently is 8 out of 10 on a pain scale. Quality of pain is described as burning. Neuro: Level of Consciousness is awake, alert, obeys commands, Oriented to person, place, time, situation, Appropriate for age. Cardiovascular: Heart tones S1 S2. Respiratory: Airway is patent Respiratory effort is even, unlabored, Respiratory pattern is regular, symmetrical, Breath sounds are clear bilaterally. GI: Abdomen is flat, non-distended, Bowel sounds present X 4 quads. Abd is soft Abdomen is tender to palpation in epigastric area. : No signs and/or symptoms were reported regarding the genitourinary system. EENT: No signs and/or symptoms were reported regarding the EENT system. Derm: Skin is intact, is healthy with good turgor, Skin is pink, warm \T\ dry. normal. Musculoskeletal: Circulation, motion, and sensation intact. 01:30 Reassessment: Patient appears in no apparent distress at this time. No changes from previously documented assessment. Patient and/or family updated on plan of care and expected duration. Pain level reassessed. Patient is alert, oriented x 3, equal unlabored respirations, skin warm/dry/pink. 03:10 Reassessment: Patient appears in no apparent distress at this time. No changes from previously documented assessment. Patient and/or family updated on plan of care and expected duration. Pain level reassessed. Patient is alert, oriented x 3, equal unlabored respirations, skin warm/dry/pink. Patient denies pain at this time. Patient states feeling better. Patient states symptoms have improved. Vital Signs: 01/07 23:44 BP 130 / 101; Pulse 105; Resp 18; Temp 98.2; Pulse Ox 95% ; Pain 9/10; ll1 01/08 01:00 BP 131 / 91; Pulse 87; Resp 18; Pulse Ox 100% on R/A; 02:00 BP 133 / 89; Pulse 80; Resp 18; Pulse Ox 99% on R/A; 03:15 BP 112 / 82; Pulse 80; Resp 18; Pulse Ox 99% on R/A; ED Course: 01/07 23:37 Patient arrived in ED. cl3 23:46 Triage completed. ll1 23:46 Arm band placed on Patient placed in an exam room, on a stretcher. ll1 23:47 Reji Siegel is Primary Nurse. wh 23:47 Remi Mo PA is PHCP. jr8 23:47 Chadd Willis MD is Attending Physician. jr8 01/08 00:30 No provider procedures requiring assistance completed. Inserted saline lock: 20 gauge wh in right antecubital area, using aseptic technique. Blood collected. 01:00 Patient has correct armband on for positive identification. Bed in low position. Call wh light in reach. Side rails up X 1. Pulse ox on. NIBP on. 02:05 CT Abd/Pelvis - IV Contrast Only In Process Unspecified. EDMS 02:42 Jose Rafael Gilliland MD is Referral Physician. jr8 03:22 IV discontinued, intact, bleeding controlled, No redness/swelling at site. wh 03:55 Primary Nurse role handed off by Reji Siegel tt3 Administered Medications: 01:16 Drug: NS 0.9% 1000 ml Route: IV; Rate: 1000 ml; Site: right antecubital; 03:23 Follow up: Response: No adverse reaction; IV Status: Completed infusion 01:18 Drug: morphine 4 mg {Note: RASS 0.} Route: IVP; Site: right antecubital; 03:23 Follow up: Response: No adverse reaction; Pain is unchanged, physician notified 01:20 Drug: Zofran (Ondansetron) 4 mg Route: IVP; Site: right antecubital; 03:23 Follow up: Response: No adverse reaction; Nausea is decreased 02:26 Drug: GI Cocktail without - (Maalox Suspension 30 ml, Lidocaine Liquid 2 % 15 wh ml) Route: PO; 03:23 Follow up: Response: No adverse reaction; Pain is decreased Outcome: 02:42 Discharge ordered by . jr8 03:22 Discharged to home ambulatory. wh 03:22 Condition: stable 03:22 Discharge instructions given to patient, Instructed on discharge instructions, follow up and referral plans. POC Demonstrated understanding of instructions, follow-up care, POC 03:25 Patient left the ED. wh 03:56 Patient left the ED. tt3 Addendum: 01/10/2020 17:30 Addendum: Other attempted to contact pt regarding negative COVID-19 swab results. d m5 Received message that the mailbox is full and cannot accept any messages at this time. Signatures: Dispatcher [employer] Cass Angelo, RN RN dm5 Remi Mo PA PA jr8 Christal, Reji Menard, Yue cl3 Vijay Menard RN RN ll1 Marley, Kvng tt3
[2020-01-09 03:46] VITALS: TEMP 98.2
[2020-01-09 03:49] VITALS: O2SAT 99
[2020-01-09 03:50] VITALS: BP 112/82
--- NOTE | 2020-01-09 10:32 | RAD REPORT ---
EXAM DESCRIPTION: CT - Abdomen Pelvis W Contrast - 01/09/2020 6:13 am COMPARISON: None CLINICAL HISTORY: Abdominal pain TECHNIQUE: Multiple helical axial images were obtained through the abdomen and pelvis using intraven ous contrast. Coronal and sagittal reformatted images were obtained. All CT scans at this facility use dose modulation, iterative reconstruction, and/or weight-based dosi ng when appropriate to reduce radiation dose to as low as reasonably achievable. FINDINGS: Lung bases: Appear unremarkable. Liver: Homogenous attenuation is noted. Gallbladder/biliary: Cholecystectomy changes are demonstrated. No significant biliary ductal dilatati on. 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 There is a 4 .5 cm by 4.3 cm rounded hypodense, cystic-appearing structure abutting the pancreatic resection eliseo n. No evidence of ductal enlargement. Spleen: Spleen appears enlarged measuring 17 cm longitudinally. Adrenals: Unremarkable. Kidneys and ureters: No evidence of hydronephrosis. Normal enhancement. Bladder: Unremarkable. Pelvic organs: Unremarkable. Bowel: Colonic diverticula are present. No evidence of bowel obstruction. No bowel wall thickening. Appendix appears unremarkable. 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 Several collateral vessels in the gastric fundus and body noted. Peritoneum: No free air. No significant free fluid. Lymph nodes: Unremarkable. Soft tissues: Tiny fat-containing umbilical hernia is present. Bones: Unremarkable. IMPRESSION: 1. No evidence for an acute process within the abdomen or pelvis. 2. Cystic appearing structure near the pancreatic resection margin could represent a pseudocyst versu s cystic lesion, consider nonemergent follow-up pancreatic protocol CT or MRI as appropriate. Compari son with a prior study would also be helpful if available. 3. 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 4. Splenomegaly. Electronically signed by: Mario Schaffer MD 01/09/2020 2:32 AM CDT Due to temporary technical issues with the PACS/Fluency reporting system, reports are being signed by the in house radiologist without review as a courtesy to ensure prompt reporting. The interpreting r adiologist is fully responsible for the content of the report.
== END 2020-01-09 03:56 | disposition home or self-care (01) ==
LOC: ER 23:35
DX: K86.3 Pseudocyst of pancreas (principal); Z20.828 Contact with and (suspected) exposure to other viral communicable diseases; R11.10 Vomiting, unspecified; F17.210 Nicotine dependence, cigarettes, uncomplicated; I10 Essential (primary) hypertension
CPT/HCPCS: 96361; 82565; 74177; 96375; 96374; 99284; U0001; Q9967; J7030; J2405

== ENCOUNTER 2020-02-03 21:14 | Emergency (ER) | payer BC ==
--- OUTSIDE RECORDS SUMMARY | 2020-02-03 21:16 | XMS REPORT | Continuity of Care Document ---
:1980 Author Organization [facility] t Address [address] [place] [address] Dr. Loya [address] [place] [id number] Care Team Providers Name Role Phone Unavailable Unavailable Unavailable Problems This patient has no known problems. Allergies, Adverse Reactions, Alerts This patient has no known allergies or adverse reactions. Medications This patient has no known medications. Procedures This patient has no known procedures. Results This patient has no known results.
[2020-02-03 21:38] LABS: Absolute Lymphocytes (CBC) 1.9 K/uL (0.7-4.9); Basophils % 1.4 % (0-1.3); Lymphocytes % 26.6 % (15.3-44.8); MPV 7.2 fL (7.6-11.3); RBC Red Blood Cell Count 4.84 M/uL (4.33-5.43)
[2020-02-03 22:10] LABS: Albumin 4.1 g/dL (3.4-5.0); Bilirubin Direct 0.1 mg/dL (0-0.2); Bilirubin Total 0.8 mg/dL (0.2-1.0); Potassium 3.9 mmol/L (3.5-5.1); Protein, Total 7.6 g/dL (6.4-8.2)
[2020-02-03 22:11] LABS: Hematocrit 39.4 % (39.6-49.0)
[2020-02-03] MEDS ORDERED: MORPHINE 4 MG/ML SYR ONE (22:21)
[2020-02-03] MEDS ORDERED: ONDANSETRON 4 MG/2 ML VIAL ONE (22:21)
[2020-02-03] MEDS ORDERED: NA CHLORIDE 0.9% 1,000 ML ONE (22:21)
[2020-02-03 23:13] LABS: Blood Morphology Comment NOT SEEN (NOT SEEN); Platelet Estimate ADEQ; Platelets, Giant OCCASIONAL
[2020-02-04] MEDS ORDERED: MORPHINE 4 MG/ML SYR ONE (00:28)
--- NOTE | 2020-02-04 00:42 | ER ---
Nurse's Notes [facility] Name: Alex Auguste Age: 39 yrs Sex: Male : 1980 Arrival Date: 02/03/2020 Time: 21:16 Bed 18 Private MD: Diagnosis: Acute pancreatitis, unspecified Presentation: 02/02 21:22 Chief complaint: Patient states: "I think I am having another pancreatitis flair up.". jd3 Coronavirus screen: Proceed with normal triage. Ebola Screen: Patient negative for fever greater than or equal to 101.5 degrees Fahrenheit, and additional compatible Ebola Virus Disease symptoms. Initial Sepsis Screen: Does the patient meet any 2 criteria? HR > 90 bpm. No. Patient's initial sepsis screen is negative. Does the patient have a suspected source of infection? No. Patient's initial sepsis screen is negative. Risk Assessment: Do you want to hurt yourself or someone else? Patient reports no desire to harm self or others. Onset of symptoms was February 03, 2020. 21:22 Method Of Arrival: Ambulatory jd3 21:22 Acuity: [place] 3 jd3 Historical: - Allergies: 21:25 No Known Allergies; jd3 - Home Meds: 21:25 buspirone 10 mg Oral tab 1 tab 2 times per day [Active]; fluoxetine 20 mg Oral cap 1 jd3 cap once daily [Active]; gabapentin 800 mg Oral tab 1 tab twice a day [Active]; gemfibrozil 600 mg Oral tab 1 tab 2 times per day [Active]; metoprolol tartrate 25 mg Oral tab 1 tab 2 times per day [Active]; niacin 500 mg Oral TbER once daily [Active]; Novolin 70/30 [place] Sub-Q [Active]; pantoprazole 40 mg Oral TbEC 1 tab once daily [Active]; trazodone 100 mg Oral tab PRN sleep [Active]; - PMHx: 21:25 Diabetes - IDDM; Hypertension; High Triglycerides; Hyperlipidemia; Pancreatitis; Cihlds's jd3 Palsy; ADD/ADHD; - PSHx: 21:25 Cholecystectomy; jd3 - Immunization history:: Adult Immunizations up to date. - Social history:: Smoking status: Patient reports the use of cigarette tobacco products, smokes one pack cigarettes per day. Screenin:19 Abuse screen: Denies threats or abuse. Denies injuries from another. Nutritional ls4 screening: No deficits noted. Tuberculosis screening: No symptoms or risk factors identified. Fall Risk None identified. Assessment: 21:24 Pain: Complains of pain in epigastric area Pain currently is 10 out of 10 on a pain ls4 scale. Quality of pain is described as sharp, squeezing, Is continuous, episodic, Noted to be grimacing, guarding, moaning, resistant to movement. GI: Bowel sounds present X 4 quads. Abdomen is tender to palpation in right upper quadrant and left upper quadrant. 22:30 Reassessment: No changes from previously documented assessment. Patient and/or family ls4 updated on plan of care and expected duration. Pain level reassessed. Patient is alert, oriented x 3, equal unlabored respirations, skin warm/dry/pink. 23:30 Reassessment: Patient appears in no apparent distress at this time. Patient and/or ls4 family updated on plan of care and expected duration. Pain level reassessed. Patient is alert, oriented x 3, equal unlabored respirations, skin warm/dry/pink. Patient states symptoms have improved. 02/03 00:42 Reassessment: Patient and/or family updated on plan of care and expected duration. Pain ls4 level reassessed. Patient is alert, oriented x 3, equal unlabored respirations, skin warm/dry/pink. Patient states feeling better. Patient states symptoms have improved. Vital Signs: 02/02 21:23 BP 143 / 107; Pulse 128; Resp 20 S; Temp 98.7(O); Pulse Ox 97% on R/A; Weight 83.91 kg jd3 (R); Height 5 ft. 10 in. (177.80 cm) (R); Pain 10/10; 22:30 BP 148 / 96; Pulse 88; Resp 20; Pulse Ox 99% on R/A; Pain 7/10; ls4 02/03 00:30 BP 152 / 96; Pulse 92; Resp 20; Pulse Ox 98% on R/A; Pain 6/10; ls4 01:03 BP 156 / 89; Pulse 89; Resp 20; Pulse Ox 98% on R/A; Pain 3/10; ls4 02/02 21:23 Body Mass Index 26.54 (83.91 kg, 177.80 cm) [facility] ED Course: 02/02 21:16 Patient arrived in ED. bp1 21:19 Felecia Perdomo, RN is Primary Nurse. ls4 21:19 Patient has correct armband on for positive identification. Bed in low position. Call ls4 light in reach. Side rails up X 1. satellite project site monitor on. Pulse ox on. NIBP on. Verbal reassurance given. 21:19 No provider procedures requiring assistance completed. ls4 21:23 Triage completed. jd3 21:24 Arm band placed on. jd3 21:31 Inserted saline lock: 18 gauge in right forearm, using aseptic technique. dh4 22:04 Sachin Jacobo MD is Attending Physician. tw4 02/03 01:04 IV discontinued, intact, bleeding controlled, No redness/swelling at site. Pressure ls4 dressing applied. Administered Medications: 02/02 22:15 Drug: morphine 4 mg Route: IVP; Site: right forearm; lp1 22:45 Follow up: Response: No adverse reaction; Pain is decreased ls4 22:15 Drug: NS 0.9% 1000 ml Route: IV; Rate: 125 ml/hr; Site: right forearm; lp1 22:15 Drug: Zofran (Ondansetron) 4 mg Route: IVP; Site: right forearm; lp1 22:45 Follow up: Response: No adverse reaction 4 02/03 00:21 Drug: morphine 4 mg Route: IVP; Site: right antecubital; ls4 00:43 Follow up: Response: No adverse reaction; Marked relief of symptoms; Pain is decreased ls4 01:01 Drug: ProTONIX 40 mg Route: IVP; Site: right forearm; ls4 Outcome: 00:41 Discharge ordered by . tw4 01:04 Patient left the ED. ls4 Signatures: Blanca Shepard, RN RN lp1 Hasmukh Fan RN RN jSachin Elam MD MD 4 Felecia Perdomo, RN RN 4 Buddy Hoffmann 4 Josie Ibarra bp1
--- NOTE | 2020-02-04 00:42 | EDPHYS ---
Physician Documentation [facility] Name: Alex Auguste Age: 39 yrs Sex: Male : 1980 Arrival Date: 02/03/2020 Time: 21:16 Bed 18 Private MD: ED Physician Sachin Jacobo HPI: 02/03 00:56 This 39 yrs old Male presents to ER via Ambulatory with complaints of tw4 Abdominal Pain, Pancreatic pain. 00:56 The patient presents with abdominal pain in the epigastric area. Onset: The tw4 symptoms/episode began/occurred yesterday. The symptoms do not radiate. Associated signs and symptoms: none. The symptoms are described as sharp. Modifying factors: The symptoms are alleviated by nothing, the symptoms are aggravated by nothing. Severity of pain: At its worst the pain was moderate in the emergency department the pain is unchanged. The patient has experienced similar episodes in the past, chronically. Historical: - Allergies: 02/02 21:25 No Known Allergies; jd3 - Home Meds: 21:25 buspirone 10 mg Oral tab 1 tab 2 times per day [Active]; fluoxetine 20 mg Oral cap 1 jd3 cap once daily [Active]; gabapentin 800 mg Oral tab 1 tab twice a day [Active]; gemfibrozil 600 mg Oral tab 1 tab 2 times per day [Active]; metoprolol tartrate 25 mg Oral tab 1 tab 2 times per day [Active]; niacin 500 mg Oral TbER once daily [Active]; Novolin 70/30 [place] Sub-Q [Active]; pantoprazole 40 mg Oral TbEC 1 tab once daily [Active]; trazodone 100 mg Oral tab PRN sleep [Active]; - PMHx: 21:25 Diabetes - IDDM; Hypertension; High Triglycerides; Hyperlipidemia; Pancreatitis; Childs's jd3 Palsy; ADD/ADHD; - PSHx: 21:25 Cholecystectomy; jd3 - Immunization history:: Adult Immunizations up to date. - Social history:: Smoking status: Patient reports the use of cigarette tobacco products, smokes one pack cigarettes per day. ROS: 02/03 00:56 Constitutional: Negative for fever, chills, and weight loss, Eyes: Negative for injury, tw4 pain, redness, and discharge, Cardiovascular: Negative for chest pain, palpitations, and edema, Respiratory: Negative for shortness of breath, cough, wheezing, and pleuritic chest pain, Back: Negative for injury and pain, MS/Extremity: Negative for injury and deformity, Skin: Negative for injury, rash, and discoloration, Neuro: Negative for headache, weakness, numbness, tingling, and seizure. Abdomen/GI: Positive for abdominal pain, nausea, Negative for diarrhea, constipation, abdominal cramps, abdominal distension, anorexia, dysphagia, hematemesis, black/tarry stool, rectal pain, rectal bleeding, bowel incontinence. Exam: 00:56 Constitutional: This is a well developed, well nourished patient who is awake, alert, tw4 and in no acute distress. Head/Face: Normocephalic, atraumatic. Chest/axilla: Normal chest wall appearance and motion. Nontender with no deformity. No lesions are appreciated. Cardiovascular: Regular rate and rhythm with a normal S1 and S2. No gallops, murmurs, or rubs. Normal PMI, no JVD. No pulse deficits. Respiratory: Lungs have equal breath sounds bilaterally, clear to auscultation and percussion. No rales, rhonchi or wheezes noted. No increased work of breathing, no retractions or nasal flaring. 00:56 Skin: Warm, dry with normal turgor. Normal color with no rashes, no lesions, and no evidence of cellulitis. MS/ Extremity: Pulses equal, no cyanosis. Neurovascular intact. Full, normal range of motion. Neuro: Awake and alert, GCS 15, oriented to person, place, time, and situation. Cranial nerves II-XII grossly intact. Motor strength 5/5 in all extremities. Sensory grossly intact. Cerebellar exam normal. Normal gait. 00:56 Abdomen/GI: Inspection: abdomen appears normal, Bowel sounds: diminished, Palpation: moderate abdominal tenderness, in the epigastric area. Vital Signs: 02/02 21:23 BP 143 / 107; Pulse 128; Resp 20 S; Temp 98.7(O); Pulse Ox 97% on R/A; Weight 83.91 kg jd3 (R); Height 5 ft. 10 in. (177.80 cm) (R); Pain 10/10; 22:30 BP 148 / 96; Pulse 88; Resp 20; Pulse Ox 99% on R/A; Pain 7/10; ls4 02/03 00:30 BP 152 / 96; Pulse 92; Resp 20; Pulse Ox 98% on R/A; Pain 6/10; ls4 01:03 BP 156 / 89; Pulse 89; Resp 20; Pulse Ox 98% on R/A; Pain 3/10; ls4 02/02 21:23 Body Mass Index 26.54 (83.91 kg, 177.80 cm) jd3 MDM: 02/02 22:05 Patient medically screened. 02/03 00:56 Data reviewed: vital signs, nurses notes. Data reviewed: lab test result(s), CBC, tw4 electrolytes, Flu:. Data interpreted: Pulse oximetry: Interpretation: normal. Counseling: I had a detailed discussion with the patient and/or guardian regarding: the historical points, exam findings, and any diagnostic results supporting the discharge/admit diagnosis, lab results. Medication response: morphine relieved the patient's pain. Symptoms have resolved. Response to treatment: the patient's symptoms have resolved after treatment, and as a result, I will discharge patient. Special discussion: Based on the patient's Hx, exam, and Dx evaluation, there is no indication for emergent surgery or inpatient Tx. It is understood by the patient/guardian that if the Sx's persist or worsen they need to return immediately for re-evaluation. I discussed with the patient/guardian in detail that at this point there is no indication for admission to the hospital. It is understood, however, that if the symptoms persist or worsen the patient needs to return immediately for re-evaluation. 02/02 21:21 Order name: Basic Metabolic Panel; Complete Time: 22:41 [facility] 02/02 22:42 Interpretation: Normal except: CL 109; GLUC 228; GFR 77. tw02/02 21:21 Order name: CBC with Diff; Complete Time: 23:39 4 02/02 22:42 Interpretation: Normal except: HCT 39.4; BASO% 1.4; MPV 7.2. tw02/02 21:21 Order name: Hepatic Function; Complete Time: 22:41 4 02/02 22:42 Interpretation: Within normal limits. tw02/02 21:21 Order name: Lipase; Complete Time: 22:41 [facility] 02/02 22:42 Interpretation: Within normal limits: LIP 142. tw02/02 22:13 Order name: Manual Differential; Complete Time: 23:39 EDMS 02/02 21:21 Order name: IV Saline Lock; Complete Time: 22:05 ls4 02/02 21:21 Order name: Labs collected and sent; Complete Time: 22:05 ls4 Administered Medications: 02/02 22:15 Drug: morphine 4 mg Route: IVP; Site: right forearm; lp1 22:45 Follow up: Response: No adverse reaction; Pain is decreased 4 22:15 Drug: NS 0.9% 1000 ml Route: IV; Rate: 125 ml/hr; Site: right forearm; lp1 22:15 Drug: Zofran (Ondansetron) 4 mg Route: IVP; Site: right forearm; lp1 22:45 Follow up: Response: No adverse reaction 4 02/03 00:21 Drug: morphine 4 mg Route: IVP; Site: right antecubital; ls4 00:43 Follow up: Response: No adverse reaction; Marked relief of symptoms; Pain is decreased 4 01:01 Drug: ProTONIX 40 mg Route: IVP; Site: right forearm; ls4 Disposition: 02/04/20 00:41 Discharged to Home. Impression: Acute pancreatitis, unspecified. - Condition is Stable. - Discharge Instructions: Acute Pancreatitis. - Prescriptions for Tramadol 50 mg Oral Tablet - take 1 tablet by ORAL route every 8 hours as needed; 12 tablet. - Medication Reconciliation Form, Thank You Letter, Antibiotic Education, Prescription Opioid Use form. - Follow up: Private Physician; When: Upon discharge from the Emergency Department; Reason: Recheck today's complaints, Continuance of care, Re-evaluation by your physician. - Problem is an ongoing problem. - Symptoms have improved. Signatures: Dispatcher [employer] EDCO Blanca Shepard RN RN lp1 Hasmukh Fan RN RN jd3 Sachin Jacobo MD MD tw4 Felecia Perdomo RN RN ls4 Corrections: (The following items were deleted from the chart) 01:04 00:41 02/04/2020 00:41 Discharged to Home. Impression: Acute pancreatitis, unspecified. ls4 Condition is Stable. Forms are Medication Reconciliation Form, Thank You Letter, Antibiotic Education, Prescription Opioid Use. Follow up: Private Physician; When: Upon discharge from the Emergency Department; Reason: Recheck today's complaints, Continuance of care, Re-evaluation by your physician. Problem is an ongoing problem. Symptoms have improved. tw4
[2020-02-04] MEDS ORDERED: PANTOPRAZOLE 40 MG INJ ONE (01:01)
[2020-02-04 01:09] VITALS: TEMP 98.7
[2020-02-04 01:17] VITALS: O2SAT 98
[2020-02-04 01:18] VITALS: BP 156/89
== END 2020-02-04 01:04 | disposition home or self-care (01) ==
LOC: ER 21:14
DX: K85.90 Acute pancreatitis without necrosis or infection, unspecified (principal); I10 Essential (primary) hypertension; E11.9 Type 2 diabetes mellitus without complications; E78.5 Hyperlipidemia, unspecified; F90.9 Attention-deficit hyperactivity disorder, unspecified type; F17.210 Nicotine dependence, cigarettes, uncomplicated; Z79.4 Long term (current) use of insulin
CPT/HCPCS: 85025; 80048; 36415; 80076; 83690; C9113; J7030; J2405; 96374; 96375; 99284

== ENCOUNTER 2020-02-05 22:02 | Emergency (ER) | payer BC ==
--- OUTSIDE RECORDS SUMMARY | 2020-02-05 22:51 | XMS REPORT | Continuity of Care Document ---
:1980 Author Organization [facility] t Address [address] [place] [address] Dr. Loya [address] [place] [id number] Care Team Providers Name Role Phone Unavailable Unavailable Unavailable Problems This patient has no known problems. Allergies, Adverse Reactions, Alerts This patient has no known allergies or adverse reactions. Medications This patient has no known medications. Procedures This patient has no known procedures. Results This patient has no known results.
[2020-02-05] MEDS ORDERED: ONDANSETRON 4 MG/2 ML VIAL ONE (23:07)
[2020-02-05] MEDS ORDERED: MORPHINE 4 MG/ML SYR ONE (23:07)
[2020-02-05] MEDS ORDERED: NA CHLORIDE 0.9% 1,000 ML ONE (23:08)
[2020-02-05 23:20] LABS: Absolute Lymphocytes (CBC) 1.5 K/uL (0.7-4.9); Basophils % 0.8 % (0-1.3); Hematocrit 40.6 % (39.6-49.0); Lymphocytes % 22.2 % (15.3-44.8); MPV 7.6 fL (7.6-11.3)
[2020-02-05] MEDS ORDERED: HYDROMORPHONE HCL 1 MG/ML INJ ONE (23:30)
[2020-02-05 23:53] LABS: ALT/SGPT 94 U/L (12-78); AST/SGOT 45 U/L (15-37); Albumin 3.9 g/dL (3.4-5.0); Alkaline Phosphatase 113 U/L (45-117); BUN Blood Urea Nitrogen 15 mg/dL (7-18); Bicarbonate 29 mmol/L (21-32); Bilirubin Direct 0.2 mg/dL (0-0.2); Bilirubin Total 1.3 mg/dL (0.2-1.0); Glucose Level 141 mg/dL (74-106); Lipase 117 U/L (73-393); Potassium 3.3 mmol/L (3.5-5.1); Protein, Total 8.2 g/dL (6.4-8.2); Sodium Level 136 mmol/L (136-145)
[2020-02-06 00:08] LABS: Urine Glucose NEGATIVE (NEG)
[2020-02-06 00:09] LABS: Urine Blood NEGATIVE (NEG); Urine Protein 2+ (NEG); Urine pH >8.5 (5.0-7.0)
[2020-02-06] MEDS ORDERED: NA CHLORIDE 0.9% 1,000 ML ONE ×2 (00:30→00:36)
[2020-02-06] MEDS ORDERED: ONDANSETRON 4 MG/2 ML VIAL ONE (00:36)
[2020-02-06] MEDS ORDERED: MORPHINE 4 MG/ML SYR ONE (00:36)
--- NOTE | 2020-02-06 00:51 | ER ---
Nurse's Notes [facility] Name: Alex Auguste Age: 39 yrs Sex: Male : 1980 Arrival Date: 02/05/2020 Time: 22:05 Bed 13 Private MD: Diagnosis: Acute pancreatitis Presentation: 02/04 22:26 Chief complaint: Patient states: PER PT HX OF PANCREATITITS WAS SEEN 2 DAYS AGO LIPASE mt2 WNL SENT HOME. N/V FOR 2 DAYS LOW INTAKE. ABD PAIN CONTINUES. CRYING DURING TRIAGE. Coronavirus screen: Patient denies a cough. Patient denies shortness of breath or difficulty breathing. Patient denies measured and/or subjective temperature greater than 100.4F prior to today's visit. Patient denies travel on a cruise ship or to a country the [facility] currently lists as an affected area. Patient denies contact with known and/or suspected case of COVID-19. Patient instructed to continue to wear a mask when interacting with others. Patient moved to private room, placed in contact and droplet isolation with eye protection until further assessment. Ebola Screen: No symptoms or risks identified at this time. Initial Sepsis Screen: Does the patient meet any 2 criteria? No. Patient's initial sepsis screen is negative. Does the patient have a suspected source of infection? No. Patient's initial sepsis screen is negative. Risk Assessment: Do you want to hurt yourself or someone else?. Onset of symptoms was February 05, 2020 at 09:00. 22:26 Method Of Arrival: Ambulatory mt2 22:26 Acuity: [place] 3 mt2 Triage Assessment: 22:29 General: Appears distressed, uncomfortable, Behavior is agitated. Pain: Complains of mt2 pain in epigastric area. EENT: No deficits noted. Neuro: No deficits noted. Cardiovascular: No deficits noted. Respiratory: No deficits noted. GI: Reports upper abdominal pain. : No deficits noted. Derm: No deficits noted. Musculoskeletal: No deficits noted. Historical: - Allergies: 22:29 No Known Allergies; mt2 - Immunization history:: Adult Immunizations up to date. - Social history:: Smoking status: Patient reports the use of cigarette tobacco products, smokes one-half pack cigarettes per day, Patient/guardian denies using alcohol, street drugs. - Family history:: not pertinent. Screenin:31 Abuse screen: Denies threats or abuse. Nutritional screening: No deficits noted. mt2 Tuberculosis screening: No symptoms or risk factors identified. Fall Risk None identified. Assessment: 23:00 GI: Bowel sounds present X 4 quads. Abdomen is tender to palpation. mt2 23:24 Reassessment: Patient and/or family updated on plan of care and expected duration. Pain mt2 level reassessed. ABD PAIN CONT. NOTIFIED MD Patient states symptoms have not improved. General: Appears distressed, uncomfortable, Behavior is cooperative, agitated. Pain: Complains of pain in abdomen Pain currently is 10 out of 10 on a pain scale. 02/05 00:18 Reassessment: Patient and/or family updated on plan of care and expected duration. Pain wh level reassessed. Patient states symptoms have improved. General: Appears comfortable, Behavior is cooperative. Pain: Complains of pain in abdomen Pain currently is 4 out of 10 on a pain scale. 01:33 Reassessment: Patient and/or family updated on plan of care and expected duration. Pain mt2 level reassessed. Patient states symptoms have improved. General: Appears in no apparent distress. comfortable, Behavior is cooperative. Pain: Denies pain. Vital Signs: 02/04 22:26 BP 126 / 90; Pulse 116; Resp 21; Temp 100.3; Pulse Ox 99% ; Pain 10/10; mt2 23:09 BP 144 / 87; Pulse 93; Resp 19; Pulse Ox 97% ; Weight 84.82 kg; Pain 10/10; mt2 02/05 00:18 BP 112 / 74; Pulse 89; Resp 16; Pulse Ox 94% ; Pain 4/10; wh 00:23 Temp 98.3; wh 01:34 BP 119 / 63; Pulse 75; Resp 16; Temp 98.0(O); Pulse Ox 96% on R/A; Pain 0/10; mt2 ED Course: 02/04 22:05 Patient arrived in ED. cl3 22:22 Priti Chin MD is Attending Physician. ma2 22:26 Ivon Osman, KECIA is Primary Nurse. mt2 22:29 Triage completed. mt2 22:29 Arm band placed on right wrist. mt2 22:31 Bed in low position. Call light in reach. Side rails up X 1. mt2 22:31 Verbal reassurance given. Pulse ox on. NIBP on. jp3 22:40 Initial lab(s) drawn, by me, held in ED. Urine collected: clean catch specimen, clear, jp3 tata colored. Inserted saline lock: 20 gauge in right antecubital area, using aseptic technique. Blood collected. 22:40 Patient maintains SpO2 saturation greater than 95% on room air. 3 02/05 01:34 No provider procedures requiring assistance completed. IV discontinued, intact, mt2 bleeding controlled, No redness/swelling at site. Pressure dressing applied. Administered Medications: 02/04 23:02 Drug: NS 0.9% 1000 ml Route: IV; Rate: 1 bolus; Site: right antecubital; in2 02/05 00:38 Follow up: Response: No adverse reaction; IV Status: Completed infusion; IV Intake: wh 1000ml 02/04 23:03 Drug: morphine 4 mg Route: IVP; Site: right antecubital; in2 23:24 Follow up: Response: No adverse reaction; Pain is unchanged, physician notified in2 23:03 Drug: Zofran (Ondansetron) 4 mg Route: IVP; Site: right antecubital; in2 23:24 Follow up: Response: No adverse reaction; Nausea is decreased in2 23:24 Drug: Dilaudid 1 mg Route: IVP; Site: right antecubital; in2 02/05 00:17 Follow up: Response: No adverse reaction; Pain is decreased 00:25 Drug: NS 0.9% 1000 ml Route: IV; Rate: 1 bolus; Site: right antecubital; Intake: 00:38 IV: 1000ml; Total: 1000ml. Outcome: 00:50 Discharge ordered by . wv2 01:34 Discharged to home ambulatory. mt2 01:34 Condition: good 01:34 Discharge instructions given to patient, Instructed on discharge instructions, follow up and referral plans. medication usage, Demonstrated understanding of instructions, follow-up care, medications, Prescriptions given X 2. 01:36 Patient left the ED. mt2 Signatures: Reji Siegel Priti Chin MD MD ma2 [place] jp3 Yue Menard Marlene, RN RN mt2 Corrections: (The following items were deleted from the chart) 02/04 23:31 23:09 BP 144 / 87; Pulse 93bpm; Resp 19bpm; Pulse Ox 97%; Pain 04/20; mt2 mt2
--- NOTE | 2020-02-06 00:51 | EDPHYS ---
Physician Documentation [facility] Name: Alex Auguste Age: 39 yrs Sex: Male : 1980 Arrival Date: 02/05/2020 Time: 22:05 Bed 13 Private MD: ED Physician Priti Chin HPI: 02/04 23:00 This 39 yrs old Male presents to ER via Ambulatory with complaints of ma2 Abdominal Pain, Vomiting. 23:00 The patient presents to the emergency department with nausea, vomiting. Onset: The ma2 symptoms/episode began/occurred gradually, 2 day(s) ago. Associated signs and symptoms: Pertinent negatives: belching, dysuria, flatulence, hematuria. Severity of symptoms: At their worst the symptoms were moderate in the emergency department the symptoms are unchanged. The patient has experienced similar episodes in the past. hx of pancreatitis. Historical: - Allergies: 22:29 No Known Allergies; mt2 - Immunization history:: Adult Immunizations up to date. - Social history:: Smoking status: Patient reports the use of cigarette tobacco products, smokes one-half pack cigarettes per day, Patient/guardian denies using alcohol, street drugs. - Family history:: not pertinent. ROS: 23:00 Constitutional: Negative for fever, chills, and weight loss. ma2 23:00 All other systems are negative. Exam: 23:00 Constitutional: This is a well developed, well nourished patient who is awake, alert, ma2 and in no acute distress. Chest/axilla: Normal chest wall appearance and motion. Nontender with no deformity. No lesions are appreciated. Cardiovascular: Regular rate and rhythm with a normal S1 and S2. No gallops, murmurs, or rubs. Normal PMI, no JVD. No pulse deficits. Respiratory: Lungs have equal breath sounds bilaterally, clear to auscultation and percussion. No rales, rhonchi or wheezes noted. No increased work of breathing, no retractions or nasal flaring. Abdomen/GI: Soft, non-tender, with normal bowel sounds. No distension or tympany. No guarding or rebound. No evidence of tenderness throughout. Back: No spinal tenderness. No costovertebral tenderness. Full range of motion. MS/ Extremity: Pulses equal, no cyanosis. Neurovascular intact. Full, normal range of motion. Neuro: Awake and alert, GCS 15, oriented to person, place, time, and situation. Cranial nerves II-XII grossly intact. Motor strength 5/5 in all extremities. Sensory grossly intact. Cerebellar exam normal. Normal gait. Vital Signs: 22:26 BP 126 / 90; Pulse 116; Resp 21; Temp 100.3; Pulse Ox 99% ; Pain 10/10; mt2 23:09 BP 144 / 87; Pulse 93; Resp 19; Pulse Ox 97% ; Weight 84.82 kg; Pain 10/10; mt2 02/05 00:18 BP 112 / 74; Pulse 89; Resp 16; Pulse Ox 94% ; Pain 4/10; wh 00:23 Temp 98.3; wh 01:34 BP 119 / 63; Pulse 75; Resp 16; Temp 98.0(O); Pulse Ox 96% on R/A; Pain 0/10; mt2 MDM: 02/04 22:22 Patient medically screened. ks2 23:00 Differential diagnosis: gastritis, pancreatitis, viral gastroenteritis, ma2 gastroenteritis. Data reviewed: vital signs, nurses notes. Counseling: I had a detailed discussion with the patient and/or guardian regarding: the historical points, exam findings, and any diagnostic results supporting the discharge/admit diagnosis, the presence of at least one elevated blood pressure reading (>120/80) during this emergency department visit, the need for outpatient follow up. Response to treatment: the patient's symptoms have markedly improved after treatment. 02/04 22:35 Order name: Glucose, Ancillary Testing; Complete Time: 22:48 [facility]NC 02/04 22:38 Order name: Urine Dipstick--Ancillary (enter results); Complete Time: 00:50 [facility] 02/04 22:49 Order name: Basic Metabolic Panel; Complete Time: 00:50 [facility] 02/04 22:49 Order name: CBC with Diff; Complete Time: 23:48 [facility] 02/04 22:49 Order name: Hepatic Function; Complete Time: 00:50 [facility] 02/04 22:49 Order name: Lipase; Complete Time: 00:50 [facility] 02/04 22:49 Order name: IV Saline Lock; Complete Time: 00:39 [facility] 02/04 22:49 Order name: Labs collected and sent; Complete Time: 00:39 ks2 Administered Medications: 23:02 Drug: NS 0.9% 1000 ml Route: IV; Rate: 1 bolus; Site: right antecubital; ny2 02/05 00:38 Follow up: Response: No adverse reaction; IV Status: Completed infusion; IV Intake: 1000ml 02/04 23:03 Drug: morphine 4 mg Route: IVP; Site: right antecubital; ny2 23:24 Follow up: Response: No adverse reaction; Pain is unchanged, physician notified ny2 23:03 Drug: Zofran (Ondansetron) 4 mg Route: IVP; Site: right antecubital; ny2 23:24 Follow up: Response: No adverse reaction; Nausea is decreased ny2 23:24 Drug: Dilaudid 1 mg Route: IVP; Site: right antecubital; [facility] 02/05 00:17 Follow up: Response: No adverse reaction; Pain is decreased 00:25 Drug: NS 0.9% 1000 ml Route: IV; Rate: 1 bolus; Site: right antecubital; Disposition: 02/06/20 00:50 Discharged to Home. Impression: Acute pancreatitis. - Condition is Stable. - Discharge Instructions: Acute Pancreatitis. - Prescriptions for Zofran 4 mg Oral Tablet - take 1 tablet by ORAL route every 12 hours As needed; 20 tablet. Diclofenac Sodium 75 mg Oral Tablet Sustained Release - take 1 tablet by ORAL route 2 times per day; 30 tablet. - Medication Reconciliation Form, Thank You Letter, Antibiotic Education, Prescription Opioid Use form. - Follow up: Private Physician; When: Tomorrow; Reason: If symptoms return, Continuance of care. Signatures: Dispatcher [employer] Reji Rollins Priti Chin MD MD ma2 Ivon Osman RN RN mt2 Corrections: (The following items were deleted from the chart) 01:36 00:50 02/06/2020 00:50 Discharged to Home. Impression: Acute pancreatitis. Condition is mt2 Stable. Discharge Instructions: Acute Pancreatitis. Prescriptions for Zofran 4 mg Oral Tablet - take 1 tablet by ORAL route every 12 hours As needed; 20 tablet, Diclofenac Sodium 75 mg Oral Tablet Sustained Release - take 1 tablet by ORAL route 2 times per day; 30 tablet. and Forms are Medication Reconciliation Form, Thank You Letter, Antibiotic Education, Prescription Opioid Use. Follow up: Private Physician; When: Tomorrow; Reason: If symptoms return, Continuance of care. ma2
[2020-02-06 02:00] VITALS: BP 119/63; TEMP 98; O2SAT 96
== END 2020-02-06 01:36 | disposition home or self-care (01) ==
LOC: ER 22:02
DX: K85.90 Acute pancreatitis without necrosis or infection, unspecified (principal); F17.210 Nicotine dependence, cigarettes, uncomplicated
CPT/HCPCS: 85025; 80048; 36415; 82947; 80076; 81003; 83690; J1170; J7030 ×3; J2405 ×2; 96361; 96374; 96375; 99284

== ENCOUNTER 2020-05-15 06:23 | Emergency (ER) | payer BC ==
--- OUTSIDE RECORDS SUMMARY | 2020-05-15 06:25 | XMS REPORT | Continuity of Care Document ---
:1980 Author Organization [facility] t Address [address] [place] [address] Care Team Providers Name Role Phone Kiko FLORES, H Attending Clinician Doctor Unassigned, Name Attending Clinician Unavailable Problems This patient has no known problems. Allergies, Adverse Reactions, Alerts This patient has no known allergies or adverse reactions. Medications This patient has no known medications. Procedures This patient has no known procedures. Encounters Start End Encounter Admission Attending Care Care Encounter Source Date/Time Date/Time Type Type Clinicians Facility Department ID 2020-02-09 2020-02-09 [facility] NEGRITA Hoover [id number] 15:04:39 15:53:06 ne Visit Cole Pierre [id number] [place] [id number] [facility] [phone] n[place] [address] Building 2020-02-09 2020-02-09 Orders Doctor QUEENIE [id number] 00:00:00 00:00:00 Only Unassigned, KYLE [id number] [place] [facility] [id number] 2020-02-07 2020-02-07 Telephone NEGRITA Hoover [id number] 00:00:00 00:00:00 Cole Pierre [id number] [place] [id number] [facility] [phone] nal 220 Building Results This patient has no known results.
[2020-05-15 06:55] LABS: Basophils % 0.5 % (0-1.3); Hematocrit 43.8 % (39.6-49.0); Lymphocytes % 18.3 % (15.3-44.8); MPV 6.9 fL (7.6-11.3); RBC Red Blood Cell Count 5.24 M/uL (4.33-5.43)
[2020-05-15] MEDS ORDERED: ONDANSETRON 4 MG/2 ML VIAL ONE (06:57)
[2020-05-15] MEDS ORDERED: HYDROMORPHONE HCL 2 MG/ML inj ONE (06:57)
[2020-05-15] MEDS ORDERED: NA CHLORIDE 0.9% 1,000 ML ONE (06:57)
[2020-05-15 07:15] LABS: ALT/SGPT 22 U/L (12-78); AST/SGOT 16 U/L (15-37); Albumin 4.3 g/dL (3.4-5.0); Alkaline Phosphatase 62 U/L (45-117); BUN Blood Urea Nitrogen 8 mg/dL (7-18); Bicarbonate 29 mmol/L (21-32); Bilirubin Direct 0.4 mg/dL (0-0.2); Bilirubin Total 2.3 mg/dL (0.2-1.0); Glucose Level 234 mg/dL (74-106); HDL Cholesterol 27 mg/dL (40-60); Lipase 83 U/L (73-393); Potassium 3.1 mmol/L (3.5-5.1); Sodium Level 137 mmol/L (136-145)
[2020-05-15 07:48] LABS: LDL, Direct 65 mg/dL (100-129)
--- NOTE | 2020-05-15 08:32 | ER ---
Nurse's Notes [facility] Name: Alex Auguste Age: 39 yrs Sex: Male : 1980 Arrival Date: 05/15/2020 Time: 06:24 Bed 20 Private MD: Diagnosis: Other chronic pancreatitis;Dehydration Presentation: 05/15 06:36 Chief complaint: Patient states: he is having severe epigastric pain with vomiting bb since yesterday has a hx of chronic pancreatitis and had an upper GI with Dr Faust on 05/13 and was told he had varices. Coronavirus screen: At this time, the client does not indicate any symptoms associated with coronavirus-19. The client reports previous COVID testing was negative. Ebola Screen: No symptoms or risks identified at this time. Initial Sepsis Screen: Does the patient meet any 2 criteria? No. Patient's initial sepsis screen is negative. Does the patient have a suspected source of infection? No. Patient's initial sepsis screen is negative. Risk Assessment: Do you want to hurt yourself or someone else? Patient reports no desire to harm self or others. Onset of symptoms was May 14, 2020. 06:36 Method Of Arrival: Ambulatory bb 06:36 Acuity: [place] 3 bb Historical: - Allergies: 06:42 No Known Allergies; bb - Home Meds: 06:42 Gemfibrozil Oral [Active]; fish oil [Active]; losartan oral oral [Active]; Trintellix bb oral oral [Active]; Buspirone Oral [Active]; pantoprazole oral oral [Active]; Insulin: Regular Sub-Q [Active]; Insulin: Novolog Sub-Q [Active]; Metoprolol Tartrate Oral [Active]; Creon oral oral [Active]; - PMHx: 06:42 chronic pancreatitis; Diabetes - IDDM; GERD; bb - PSHx: 06:42 Cholecystectomy; bb - Immunization history:: Adult Immunizations up to date. - Social history:: Smoking status: Patient reports the use of cigarette tobacco products, smokes one pack cigarettes per day. Patient/guardian denies using alcohol, street drugs. - Family history:: not pertinent. - Hospitalizations: : No recent hospitalization is reported. Screenin:42 Abuse screen: Denies threats or abuse. Nutritional screening: No deficits noted. bb Tuberculosis screening: No symptoms or risk factors identified. Fall Risk None identified. Assessment: 06:42 General: Appears uncomfortable, Behavior is cooperative, anxious. Pain: Complains of bb pain in epigastric area Pain currently is 10 out of 10 on a pain scale. Neuro: Level of Consciousness is awake, alert, obeys commands, Oriented to person, place, time, situation. Cardiovascular: Capillary refill < 3 seconds Patient's skin is warm and dry. Respiratory: Respiratory effort is unlabored, shallow, Respiratory pattern is regular. GI: Abdomen is non-distended, Bowel sounds diminished in right upper quadrant, left upper quadrant, right lower quadrant and left lower quadrant Abd is soft X 4 quads Abdomen is tender to palpation in epigastric area Reports vomiting, since yesterday. Derm: Skin is pink, warm \T\ dry. Musculoskeletal: Circulation, motion, and sensation intact. 07:39 General: Appears in no apparent distress. comfortable, Behavior is calm, cooperative. ss Pain: Denies pain. Neuro: Level of Consciousness is awake, alert, obeys commands, Oriented to person, place, time, situation. Respiratory: Airway is patent Respiratory effort is even, unlabored, Respiratory pattern is regular, symmetrical. GI: Abdomen is non-distended. : No signs and/or symptoms were reported regarding the genitourinary system. EENT: Oral mucosa is moist. Musculoskeletal: Circulation, motion, and sensation intact. Range of motion: intact in all extremities. 08:30 Reassessment: RECD REPORT FROM MARY MCDONNELL. 39YO WM P/W ABDOMINAL PAIN, H/O PANCREATITIS. bp D/C ON HOLD FOR IVF COMPLETION. 09:26 Reassessment: PT D/C HOME AMBULATORY, DX WITH PANCREATITIS Patient states feeling bp better. Patient states symptoms have improved. Vital Signs: 06:36 BP 150 / 105; Pulse 120; Resp 18 S; Temp 97.9(O); Pulse Ox 100% on R/A; Weight 83.91 kg bb (R); Height 5 ft. 10 in. (177.80 cm) (R); Pain 10/10; 07:37 BP 156 / 101; Pulse 118; Resp 16; Pulse Ox 97% on R/A; Pain 0/10; ss 08:30 BP 157 / 102; Pulse 100; Resp 17; Pulse Ox 95% ; bp 09:26 BP 141 / 85; Pulse 102; Resp 16; Temp 98; Pulse Ox 97% ; bp 06:36 Body Mass Index 26.54 (83.91 kg, 177.80 cm) bb ED Course: 06:24 Patient arrived in ED. cl3 06:36 Venkat Lyon MD is Attending Physician. rn 06:39 Triage completed. bb 06:40 Initial lab(s) drawn, by ED staff, sent to lab. Inserted saline lock: 20 gauge in right bb antecubital area, using aseptic technique. ,using aseptic technique. by Reji Groves RN Blood collected. 06:42 Arm band placed on Patient placed in an exam room, on a stretcher, on pulse oximetry. bb 06:42 Patient has correct armband on for positive identification. Placed in gown. Bed in low bb position. Call light in reach. Side rails up X 1. Pulse ox on. NIBP on. Warm blanket given. 06:50 Reji Siegel is Primary Nurse. wh 07:01 Mary Walker RN is Primary Nurse. ss 08:32 Ivan Faust MD is Referral Physician. rn 08:38 Primary Nurse role handed off by Mary Walker RN bp 08:38 Krishan Ward, LISSA is Primary Nurse. bp 09:26 No provider procedures requiring assistance completed. IV discontinued, intact, bp bleeding controlled, No redness/swelling at site. Pressure dressing applied. Administered Medications: 06:47 Drug: NS 0.9% 1000 ml Route: IV; Rate: 1000 ml; Site: right antecubital; wh 09:28 Follow up: IV Status: Completed infusion; IV Intake: 1000ml bp 06:49 Drug: Dilaudid 1 mg {Note: RASS 0.} Route: IVP; Site: right antecubital; wh 07:38 Follow up: Response: No adverse reaction; Pain is decreased ss 06:51 Drug: Zofran (Ondansetron) 4 mg Route: IVP; Site: right antecubital; wh 07:38 Follow up: Response: No adverse reaction ss 08:45 Drug: Dilaudid 0.5 mg Route: IVP; Site: right antecubital; bp 09:28 Follow up: Response: Pain is decreased bp Intake: 09:28 IV: 1000ml; Total: 1000ml. bp Outcome: 08:32 Discharge ordered by . lissa 09:26 Discharged to home ambulatory. bp 09:26 Condition: stable 09:26 Discharge instructions given to patient, Instructed on discharge instructions, follow up and referral plans. medication usage, Demonstrated understanding of instructions, follow-up care, medications, Prescriptions given X 2. 09:28 Patient left the ED. bp Signatures: Anna Marie Harrington RN RN Venkat Sanchez MD MD rn Smirch, Shelby, RN RN ss Habalo, Winsy wh Peltier, Brian, RN RN Yue Oliveira cl3
--- NOTE | 2020-05-15 08:32 | EDPHYS ---
Physician Documentation [facility] Name: Alex Auguste Age: 39 yrs Sex: Male : 1980 Arrival Date: 05/15/2020 Time: 06:24 Bed 20 Private MD: ED Physician Venkat Lyon HPI: 05/15 06:52 This 39 yrs old Male presents to ER via Ambulatory with complaints of rn Abdominal Pain. 06:52 The patient presents with abdominal pain in the epigastric area. rn 06:53 Onset: The symptoms/episode began/occurred 2 day(s) ago. The symptoms do not radiate. rn Associated signs and symptoms: Pertinent positives: nausea and vomiting, Pertinent negatives: blood in stools, chest pain, diarrhea, fever, shortness of breath, testicular pain, vomiting blood. The symptoms are described as achy, crampy, intermittent. Modifying factors: The symptoms are alleviated by nothing, the symptoms are aggravated by touching the area. Severity of pain: At its worst the pain was moderate in the emergency department the pain is unchanged. The patient has experienced similar episodes in the past. The patient has been recently seen by a physician:. Reports hx of chronic pancreatitis, 2 days of upper abd pain, identical to previous episodes of pancreatitis, assoc with nausea/vomiting. No blood in stool or emesis. Just seen by Dr. Faust and had upper GI that showed non-bleeding gastric varices. No fever. No trauma. . Historical: - Allergies: 06:42 No Known Allergies; bb - Home Meds: 06:42 Gemfibrozil Oral [Active]; fish oil [Active]; losartan oral oral [Active]; Trintellix bb oral oral [Active]; Buspirone Oral [Active]; pantoprazole oral oral [Active]; Insulin: Regular Sub-Q [Active]; Insulin: Novolog Sub-Q [Active]; Metoprolol Tartrate Oral [Active]; Creon oral oral [Active]; - PMHx: 06:42 chronic pancreatitis; Diabetes - IDDM; GERD; bb - PSHx: 06:42 Cholecystectomy; bb - Immunization history:: Adult Immunizations up to date. - Social history:: Smoking status: Patient reports the use of cigarette tobacco products, smokes one pack cigarettes per day. Patient/guardian denies using alcohol, street drugs. - Family history:: not pertinent. - Hospitalizations: : No recent hospitalization is reported. ROS: 06:53 Constitutional: Negative for fever, chills, and weight loss, Eyes: Negative for injury, rn pain, redness, and discharge, Neck: Negative for injury, pain, and swelling, Cardiovascular: Negative for chest pain, palpitations, and edema, Respiratory: Negative for shortness of breath, cough, wheezing, and pleuritic chest pain, Abdomen/GI: + upper abd pain/nausea/vomiting Back: + mid back pain MS/Extremity: Negative for injury and deformity, Skin: Negative for injury, rash, and discoloration, Neuro: Negative for headache, numbness, tingling, and seizure. Exam: 06:53 Constitutional: This is a well developed, well nourished patient who is awake, alert rn Head/Face: Normocephalic, atraumatic. ENT: dry MM Cardiovascular: tachycardic, regular Respiratory: No increased work of breathing, no retractions or nasal flaring. Abdomen/GI: soft, + epigastric tenderness, no rebound Skin: Warm, dry MS/ Extremity: Pulses equal, no cyanosis. Neuro: Awake and alert, GCS 15 Vital Signs: 06:36 BP 150 / 105; Pulse 120; Resp 18 S; Temp 97.9(O); Pulse Ox 100% on R/A; Weight 83.91 kg bb (R); Height 5 ft. 10 in. (177.80 cm) (R); Pain 10/10; 07:37 BP 156 / 101; Pulse 118; Resp 16; Pulse Ox 97% on R/A; Pain 0/10; ss 08:30 BP 157 / 102; Pulse 100; Resp 17; Pulse Ox 95% ; bp 09:26 BP 141 / 85; Pulse 102; Resp 16; Temp 98; Pulse Ox 97% ; bp 06:36 Body Mass Index 26.54 (83.91 kg, 177.80 cm) bb MDM: 06:36 Patient medically screened. rn 08:30 Differential diagnosis: pancreatitis, cirrhosis, fatty liver. Data reviewed: vital rn signs, nurses notes, old medical records, lab test result(s), and as a result, I will discharge patient. Counseling: I had a detailed discussion with the patient and/or guardian regarding: the historical points, exam findings, and any diagnostic results supporting the discharge/admit diagnosis, lab results, the need for outpatient follow up, to return to the emergency department if symptoms worsen or persist or if there are any questions or concerns that arise at home. Response to treatment: the patient's symptoms have markedly improved after treatment, and as a result, I will discharge patient. Special discussion: Based on the patient's Hx, exam, and Dx evaluation, there is no indication for emergent surgery or inpatient Tx. It is understood by the patient/guardian that if the Sx's persist or worsen they need to return immediately for re-evaluation. I discussed with the patient/guardian in detail that at this point there is no indication for admission to the hospital. It is understood, however, that if the symptoms persist or worsen the patient needs to return immediately for re-evaluation. Based on the history and exam findings, there is no indication for further emergent testing or inpatient evaluation. I discussed with the patient/guardian the need to see the personal lines sales rep for further evaluation of the symptoms. ED course: Pt markedly improved, states pain had resolved, slowly coming back, now 08/21, will give another shot of dialudid. Talked with him regarding slow trend of worsening LFTs, he reports Dr. Faust already aware of this trend, they have been talking lately about liver evaluation and to rule out cirrhosis given gastric varices. . 05/15 06:41 Order name: Basic Metabolic Panel rn 05/15 06:41 Order name: CBC with Diff; Complete Time: 07:17 rn 05/15 06:41 Order name: Hepatic Function rn 05/15 06:41 Order name: Lipase rn 05/15 06:42 Order name: Lipid Profile; Complete Time: 08:29 rn 05/15 06:42 Order name: Basic Metabolic Panel; Complete Time: 08:29 EDAK 05/15 06:41 Order name: IV Saline Lock; Complete Time: 06:45 rn 05/15 06:42 Order name: Liver (Hepatic) Function; Complete Time: 08:29 EDAK 05/15 06:42 Order name: Lipase; Complete Time: 08:29 EDAK 05/15 07:38 Order name: LDL, Direct; Complete Time: 08:29 EDAK 05/15 06:41 Order name: Labs collected and sent; Complete Time: 06:45 rn Administered Medications: 06:47 Drug: NS 0.9% 1000 ml Route: IV; Rate: 1000 ml; Site: right antecubital; 09:28 Follow up: IV Status: Completed infusion; IV Intake: 1000ml bp 06:49 Drug: Dilaudid 1 mg {Note: RASS 0.} Route: IVP; Site: right antecubital; 07:38 Follow up: Response: No adverse reaction; Pain is decreased ss 06:51 Drug: Zofran (Ondansetron) 4 mg Route: IVP; Site: right antecubital; 07:38 Follow up: Response: No adverse reaction ss 08:45 Drug: Dilaudid 0.5 mg Route: IVP; Site: right antecubital; bp 09:28 Follow up: Response: Pain is decreased bp Disposition: 05/15/20 08:32 Discharged to Home. Impression: Other chronic pancreatitis, Dehydration. - Condition is Stable. - Discharge Instructions: Dehydration, Adult, Chronic Pancreatitis. - Prescriptions for Zofran ODT 4 mg Oral tablet,disintegrating - place 1 tablet by TRANSLINGUAL route every 8 hours As needed; 20 tablet. Tramadol 50 mg Oral Tablet - take 1 tablet by ORAL route every 8 hours as needed; 15 tablet. - Medication Reconciliation Form, Thank You Letter, Antibiotic Education, Prescription Opioid Use form. - Follow up: Ivan Faust MD; When: As needed; Reason: Recheck today's complaints, Re-evaluation by your physician. - Problem is an acute exacerbation. - Symptoms have improved. Signatures: Dispatcher [employer] Anna Marie Birch RN RN bb Nieto, Roman, MD MD rn Habalo, Winsy wh Peltier, Brian, RN RN bp Smirch, Shelby RN ss Corrections: (The following items were deleted from the chart) 09:28 08:32 05/15/2020 08:32 Discharged to Home. Impression: Other chronic pancreatitis; bp Dehydration. Condition is Stable. Forms are Medication Reconciliation Form, Thank You Letter, Antibiotic Education, Prescription Opioid Use. Follow up: Ivan Faust; When: As needed; Reason: Recheck today's complaints, Re-evaluation by your physician. Problem is an acute exacerbation. Symptoms have improved. rn
[2020-05-15] MEDS ORDERED: HYDROMORPHONE HCL 0.5 MG/0.5 ML INJ ONE (08:54)
[2020-05-15 10:15] VITALS: BP 141/85; TEMP 98; O2SAT 97
== END 2020-05-15 09:28 | disposition home or self-care (01) ==
LOC: ER 06:23
DX: K86.1 Other chronic pancreatitis (principal); E86.0 Dehydration; E11.9 Type 2 diabetes mellitus without complications; K21.9 Gastro-esophageal reflux disease without esophagitis; F17.210 Nicotine dependence, cigarettes, uncomplicated; Z79.4 Long term (current) use of insulin
CPT/HCPCS: 96361; 85025; 80048; 36415; 83721; 80061; 80076; 83690; 96375; 96374; 99284; J1170 ×2; J7030; J2405

== ENCOUNTER 2020-06-01 10:51 | Emergency (ER) | payer BC ==
--- OUTSIDE RECORDS SUMMARY | 2020-06-01 10:53 | XMS REPORT | Continuity of Care Document ---
:1980 Author Organization [facility] t Address [address] [place] [address] Care Team Providers Name Role Phone Kiko [...] 2020-02-09 2020-02-09 [facility]med[facility] NEGRITA Hoover [id number] 15:04:39 15:53:06 ne Visit Cole Pierre [id number] [place] [id number] [facility] [phone] [address] 2020-02-09 2020-02-09 Orders Doctor QUEENIE [id number] 00:00:00 00:00:00 Only Unassigned, KYLE [id number] [place] [facility] [phone] [id number] 2020-02-07 2020-02-07 Telephone NEGRITA Hoover [id number] 00:00:00 00:00:00 Cole Pierre [id number] [place] [id number] [place] [phone] [address] Results This patient has no known results.
[2020-06-01] MEDS ORDERED: TETANUS & DIPHTHERIA TOX,ADULT 0.5 ML VIAL ONE (12:08)
--- NOTE | 2020-06-01 12:22 | ER ---
[facility]'s Notes 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 States he put skin glue on it to stop the bleeding. Coronavirus screen: Client denies travel out of the [place] in the last 14 days. At this time, the client does not indicate any symptoms associated with coronavirus-19. The client reports previous COVID testing was negative. Ebola Screen: Patient denies travel to an Ebola-affected area in the 21 days before illness onset. No symptoms or risks identified at this time. Initial Sepsis Screen: Does the patient meet any 2 criteria? HR > 90 bpm. No. Patient's initial sepsis screen is negative. Does the patient have a suspected source of infection? Yes: Skin breakdown/wound. Risk Assessment: Do you want to hurt yourself or someone else? Patient reports no desire to harm self or others. Onset of symptoms was May 31, 2020. 11:15 Method Of Arrival: Ambulatory [facility] 11:15 Acuity: [place] 4 ll1 Historical: - Allergies: 11:16 No Known Drug Allergies; ll1 - PMHx: 11:16 Chronic Pancreatitis; GERD; Diabetes - IDDM; ll1 - PSHx: 11:16 Cholecystectomy; ll1 - Immunization history:: Last tetanus immunization: unknown. - Social history:: Smoking status: Patient denies any tobacco usage or history of. Screenin:20 Abuse screen: Denies threats or abuse. Nutritional screening: No deficits noted. em Tuberculosis screening: No symptoms or risk factors identified. Fall Risk None identified. Assessment: 12:20 General: Appears in no apparent distress. comfortable, Behavior is calm, cooperative, em appropriate for age. Pain: Complains of pain in dorsal aspect of middle phalanx of left middle finger Pain currently is 0 out of 10 on a pain scale. Neuro: Level of Consciousness is awake, alert, obeys commands, Oriented to person, place, time, situation, Appropriate for age. Cardiovascular: Capillary refill < 3 seconds Patient's skin is warm and dry. Respiratory: Airway is patent Respiratory effort is even, unlabored, Respiratory pattern is regular, symmetrical. GI: Abdomen is flat. Derm: Skin is intact, is healthy with good turgor, Skin is pink, warm \T\ dry. Musculoskeletal: Range of motion: intact in all extremities, Swelling present in dorsal aspect of middle phalanx of left middle finger. Injury Description: Laceration sustained to dorsal aspect of middle phalanx of left middle finger is contaminated, 0.5 to 2.5 cm long, not bleeding, was sustained 1 day ago. no active bleeding noted at this time. Vital Signs: 11:15 BP 173 / 107; Pulse 100; Resp 18; Temp 98.0; Pulse Ox 99% ; Pain 0/10; ll1 12:20 BP 153 / 89; Pulse 51; Resp 18; Pulse Ox 98% on R/A; em ED Course: 10:52 Patient arrived in ED. ds1 11:16 Triage completed. ll1 11:17 Manpreet Pan PA is PHCP. cp 11:17 Cole Rogers MD is Attending Physician. cp 11:17 Arm band placed on Patient placed in an exam room, on a stretcher. ll1 11:24 Waldemar Kerr, RN is Primary Nurse. em 12:18 Hand Left 3 View In Process Unspecified. EDMS 12:20 Patient has correct armband on for positive identification. Bed in low position. Call em light in reach. 12:35 Wound care: to laceration located on dorsal aspect of middle phalanx of left middle em finger was cleaned with Hibiclens, Patient tolerated well. 12:39 No provider procedures requiring assistance completed. Patient did not have IV access em during this emergency room visit. 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 Exp: em 09/22/2021. Lot #: [id number]. } Route: IM; Site: right deltoid; 12:41 Follow up: Response: No adverse reaction em Outcome: 12:21 Discharge ordered by MD. cp 12:39 Discharged to home ambulatory. em 12:39 Condition: stable 12:39 Discharge instructions given to patient, Instructed on discharge instructions, follow up and referral plans. medication usage, wound care, Demonstrated understanding of instructions, follow-up care, medications, wound care, Prescriptions given X 1. 12:42 Patient left the ED. em Signatures: Dispatcher [employer] Waldemar Herrera, KECIA RN Carlita Durand ds1 Manpreet Pan PA PA cp Lewis, Lynsay, RN RN ll1
--- NOTE | 2020-06-01 12:22 | EDPHYS ---
Physician Documentation [facility] Name: Alex Auguste Age: 39 yrs Sex: Male : 1980 Arrival Date: 06/01/2020 Time: 10:52 Bed 15 Private MD: ED Physician Cole Rogers HPI: 06/01 11:25 This 39 yrs old Male presents to ER via Ambulatory with complaints of Finger cp Injury. 11:25 The patient or guardian reports a laceration. The complaints affect the dorsal aspect cp of middle phalanx of left middle finger. 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 Onset: The cp symptoms/episode began/occurred yesterday. Associated signs and symptoms: Pertinent negatives: cyanosis distally, numbness distally. Patient reports he cleaned wound and put skin glue in attempt to close wound. Historical: - Allergies: 11:16 No Known Drug Allergies; ll1 - PMHx: 11:16 Chronic Pancreatitis; GERD; Diabetes - IDDM; ll1 - PSHx: 11:16 Cholecystectomy; ll1 - Immunization history:: Last tetanus immunization: unknown. - Social history:: Smoking status: Patient denies any tobacco usage or history of. ROS: 11:30 MS/extremity: Positive for laceration, of the dorsal aspect of middle phalanx of left cp middle finger, Negative for decreased range of motion, paresthesias. 11:30 Constitutional: Negative for chills, fever. cp 11:30 Cardiovascular: Negative for chest pain. 11:30 Respiratory: Negative for cough, shortness of breath, wheezing. 11:30 All other systems are negative. Exam: 11:35 Head/Face: Normocephalic, atraumatic. cp 11:35 Constitutional: The patient appears in no acute distress, alert, awake, non-toxic, well developed, well nourished. 11:35 Chest/axilla: Inspection: normal. 11:35 Cardiovascular: Rate: tachycardic. 11:35 Respiratory: the patient does not display signs of respiratory distress, Respirations: normal. 11:35 Musculoskeletal/extremity: ROM: full active range of motion, in the left middle finger, Perfusion: the extremity is normally perfused throughout, Sensation intact. Tendon exam: specific tendon testing normal through active and passive range of motion 11:35 Skin: injury, laceration(s), the wound is approximately 2.5 cm(s), of the dorsal aspect of middle phalanx of left middle finger, that can be described as contaminated, linear, with mild bleeding. Vital Signs: 11:15 BP 173 / 107; Pulse 100; Resp 18; Temp 98.0; Pulse Ox 99% ; Pain 0/10; ll1 12:20 BP 153 / 89; Pulse 51; Resp 18; Pulse Ox 98% on R/A; em MDM: 11:17 Patient medically screened. cp 12:00 Differential diagnosis: open fracture, closed fracture, contusion, cellulitis, cp tenosynovitis. 12:20 Data reviewed: vital signs, nurses notes, radiologic studies, plain films. cp 12:20 Test interpretation: by ED physician or midlevel provider: xrays of left hand negative cp for fracture. Counseling: I had a detailed discussion with the patient and/or guardian regarding: the historical points, exam findings, and any diagnostic results supporting the discharge/admit diagnosis, radiology results, to return to the emergency department if symptoms worsen or persist or if there are any questions or concerns that arise at home. Special discussion: I discussed in detail with the patient the higher chance of wound infection based on his presenting history. 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 Exp: em 09/22/2021. Lot #: [id number]. } Route: IM; Site: right deltoid; 12:41 Follow up: Response: No adverse reaction em Disposition: 12:30 Chart complete. cp 06/02 06:57 Co-signature as Attending Physician, Cole Rogers MD I agree with the assessment and kdr plan of care. Disposition: 06/01/20 12:21 Discharged to Home. Impression: Laceration without foreign body of finger without damage to nail - left middle. - Condition is Stable. - Discharge Instructions: Nonsutured Laceration Care. - Prescriptions for Bactrim DS 800- 160 mg Oral Tablet - take 1 tablet by ORAL route every 12 hours for 10 days; 20 tablet. - Medication Reconciliation Form, Thank You Letter, Antibiotic Education, Prescription Opioid Use form. - Follow up: Private Physician; When: 2 - 3 days; Reason: Worsening of condition. - Problem is new. - Symptoms have improved. Signatures: Dispatcher [employer] [facility] Cole Rogers MD MD [facility] Waldemar Kerr, RN RN em Manpreet Pan PA PA cp Lewis, Lynsay, RN RN ll1 Corrections: (The following items were deleted from the chart) 06/01 11:24 11:24 Wound Care ordered. cp cp 12:06 11:24 Finger-Thumb Left+.RAD.RAD.BRZ ordered. [facility] 12:42 12:21 06/01/2020 12:21 Discharged to Home. Impression: Laceration without foreign body em of finger without damage to nail - left middle. Condition is Stable. Forms are Medication Reconciliation Form, Thank You Letter, Antibiotic Education, Prescription Opioid Use. Follow up: Private Physician; When: 2 - 3 days; Reason: Worsening of condition. Problem is new. Symptoms have improved. cp
--- NOTE | 2020-06-01 12:32 | RAD REPORT ---
EXAM DESCRIPTION: RAD -Hand Left 3 View - 06/01/2020 12:17 pm CLINICAL HISTORY: Left hand pain status post injury FINDINGS: No acute fracture or dislocation is seen. Old fracture fifth metacarpal
[2020-06-01 18:12] VITALS: TEMP 98
[2020-06-01 18:15] VITALS: BP 153/89; O2SAT 98
== END 2020-06-01 12:42 | disposition home or self-care (01) ==
LOC: ER 10:51
DX: S61.213A Laceration without foreign body of left middle finger without damage to nail, initial encounter (principal); W26.8XXA Contact with other sharp object(s), not elsewhere classified, initial encounter; Y93.89 Activity, other specified; Y92.9 Unspecified place or not applicable; Z23 Encounter for immunization
CPT/HCPCS: 90471; 90714; 99284

== ENCOUNTER 2020-06-24 08:46 | Emergency (ER) | payer BC ==
[2020-06-24] MEDS ORDERED: MORPHINE 4 MG/ML SYR ONE (09:37)
[2020-06-24] MEDS ORDERED: NA CHLORIDE 0.9% 1,000 ML ONE (09:38)
[2020-06-24] MEDS ORDERED: ONDANSETRON 4 MG/2 ML VIAL ONE (09:38)
[2020-06-24 09:41] LABS: Absolute Lymphocytes (CBC) 1.2 K/uL (0.7-4.9); Basophils % 0.8 % (0-1.3); Hematocrit 46.5 % (39.6-49.0); Lymphocytes % 14.3 % (15.3-44.8); RBC Red Blood Cell Count 5.59 M/uL (4.33-5.43)
--- OUTSIDE RECORDS SUMMARY | 2020-06-24 09:56 | XMS REPORT | Continuity of Care Document ---
:1980 Author Organization [facility] t Address [address] [place] [address] Care Team Providers Name Role Phone Kiko [...] 2020-02-09 2020-02-09 Telemedici NEGRITA Hoover [id number] 15:04:39 15:53:06 ne Visit Cole Pierre [id number] [place] [id number] [facility] [phone] nal 220 Building 2020-02-09 2020-02-09 Orders Doctor QUEENIE [id number] 00:00:00 00:00:00 Only Unassigned, KYLE [id number] [place] [facility] [phone] [id number] 2020-02-07 2020-02-07 Telephone NEGRITA Hoover [id number] 00:00:00 00:00:00 Cole Pierre [id number] [place] [id number] [facility] [phone] nal 220 Building Results This patient has no known results.
[2020-06-24 09:59] LABS: Albumin 4.3 g/dL (3.4-5.0); Bilirubin Direct 0.1 mg/dL (0-0.2); Bilirubin Total 0.9 mg/dL (0.2-1.0); Protein, Total 8.1 g/dL (6.4-8.2)
[2020-06-24 10:08] LABS: Potassium 4.4 mmol/L (3.5-5.1)
[2020-06-24] MEDS ORDERED: NA CHLORIDE 0.9% 2,000 ML ONE (10:27)
--- NOTE | 2020-06-24 10:38 | RAD REPORT ---
EXAM DESCRIPTION: CT - Abdomen Pelvis W Contrast - 06/24/2020 10:22 am CLINICAL HISTORY: Abdominal pain COMPARISON: 2017 TECHNIQUE: Computed axial tomography of the abdomen pelvis was obtained. 100 cc Isovue-300 was admin istered intravenously. Oral contrast was not requested which limits evaluation of bowel. All CT scans are performed using dose optimization technique as appropriate and may include automated exposure control or mA/KV adjustment according to patient size. FINDINGS: 4.1 centimeter cystic mass within the pancreatic tail previously measured 4.6 centimeters. The pancreatic uncinate process is inhomogeneous. Mild stranding is present within the adjacent fat. The wall of the third portion of the duodenum is thickened. Cholecystectomy. The liver with, adrenals and kidneys unremarkable Spleen measures 15 centimeters. Left upper quadrant varices There is no evidence of diverticulitis. A small umbilical hernia. Normal appendix IMPRESSION: Mild pancreatitis. The wall of the third portion of the duodenum is thickened likely sec ondary to the pancreatitis. Primary duodenitis can also result in this appearance but probably is les s likely. 4.1 centimeters cystic pancreatic mass has decreased in size probably a pseudocyst
[2020-06-24] MEDS ORDERED: FENTANYL CITR 100 MCG/2 ML ONE (10:59)
--- NOTE | 2020-06-24 12:28 | ER ---
Nurse's Notes [facility] Name: Alex Auguste Age: 39 yrs Sex: Male : 1980 Arrival Date: 06/24/2020 Time: 08:47 Bed 13 Private MD: Diagnosis: Acute pancreatitis Presentation: 06/24 08:52 Chief complaint: Patient states: hx of chronic pancreatitis, mid abd pain since last iw night and vomiting this morning. Coronavirus screen: At this time, the client does not indicate any symptoms associated with coronavirus-19. Ebola Screen: Patient negative for fever greater than or equal to 101.5 degrees Fahrenheit, and additional compatible Ebola Virus Disease symptoms Patient denies exposure to infectious person. Patient denies travel to an Ebola-affected area in the 21 days before illness onset. No symptoms or risks identified at this time. Initial Sepsis Screen: Does the patient meet any 2 criteria? No. Patient's initial sepsis screen is negative. Does the patient have a suspected source of infection? No. Patient's initial sepsis screen is negative. Risk Assessment: Do you want to hurt yourself or someone else? Patient reports no desire to harm self or others. Onset of symptoms was June 24, 2020. 08:52 Method Of Arrival: Ambulatory iw 08:52 Acuity: [place] 3 iw Historical: - Allergies: 08:55 No Known Allergies; iw - Home Meds: 08:55 gemfibrozil 600 mg Oral tab 1 tab 2 times per day [Active]; Gibbon-3 350 mg-235 mg- 90 iw mg-597 mg oral cpDR [Active]; Lantus 100 unit/mL Sub-Q soln 36 unit nightly [Active]; Novolog 100 unit/mL Sub-Q soln before meals [Active]; Metoprolol Tartrate Oral 2 times per day [Active]; pantoprazole oral oral once daily [Active]; Creon oral oral after meals [Active]; - PMHx: 08:55 Chronic Pancreatitis; Diabetes - IDDM; GERD; iw - PSHx: 08:55 Cholecystectomy; iw - Immunization history:: Adult Immunizations not up to date. - Social history:: Smoking status: Patient reports the use of cigarette tobacco products, smokes one pack cigarettes per day. Patient uses alcohol, occasionally. Screenin:05 Abuse screen: Denies threats or abuse. Denies injuries from another. Nutritional zb screening: No deficits noted. Tuberculosis screening: No symptoms or risk factors identified. Fall Risk None identified. Assessment: 09:02 General: Appears in no apparent distress. uncomfortable, Behavior is calm, cooperative, zb appropriate for age, Denies fever, chills. Pain: Complains of pain in epigastric area Pain radiates to right upper quadrant, left upper quadrant and left lower quadrant Pain currently is 9 out of 10 on a pain scale. Quality of pain is described as sharp, Pain began 2 am this morning Is continuous, Also complains of nausea. Neuro: Level of Consciousness is awake, alert, obeys commands, Oriented to person, place, time, situation. Cardiovascular: Reports None Heart tones S1 S2 present Capillary refill < 3 seconds in bilateral fingers Patient's skin is warm and dry. Respiratory: Airway is patent Respiratory effort is even, unlabored, Respiratory pattern is regular, symmetrical. GI: Abdomen is flat, non-distended, Bowel sounds present X 4 quads. Abd is soft X 4 quads Abdomen is tender to palpation X 4 quads. : No signs and/or symptoms were reported regarding the genitourinary system. EENT: Derm: Skin is intact, is healthy with good turgor, Skin is normal. Musculoskeletal: Circulation, motion, and sensation intact. Capillary refill < 3 seconds, in bilateral Range of motion: intact in all extremities. 10:00 Reassessment: Patient appears in no apparent distress at this time. Patient and/or zb family updated on plan of care and expected duration. Pain level reassessed. Patient is alert, oriented x 3, equal unlabored respirations, skin warm/dry/pink. nausea has decreased. 11:00 Reassessment: Patient appears in no apparent distress at this time. Patient and/or zb family updated on plan of care and expected duration. Pain level reassessed. Patient is alert, oriented x 3, equal unlabored respirations, skin warm/dry/pink. pt watching tv, up ad harsha. 12:00 Reassessment: Patient appears in no apparent distress at this time. Patient and/or zb family updated on plan of care and expected duration. Pain level reassessed. Patient is alert, oriented x 3, equal unlabored respirations, skin warm/dry/pink. no c/o of nausea at this time. Vital Signs: 08:59 BP 126 / 108; Pulse 124; Resp 18 S; Pulse Ox 100% on R/A; iw 09:59 BP 136 / 101; Pulse 95; Resp 16; Pulse Ox 99% on R/A; zb 12:00 BP 127 / 98; Pulse 90; Resp 18; Pulse Ox 99% on R/A; zb ED Course: 08:47 Patient arrived in ED. as 08:53 Triage completed. iw 08:55 Arm band placed on. iw 09:00 Inserted saline lock: 20 gauge in right antecubital area, using aseptic technique. zb 09:01 Shira Sevilla, RN is Primary Nurse. zb 09:05 Patient has correct armband on for positive identification. Call light in reach. Side zb rails up X 1. Pulse ox on. NIBP on. Door closed. Noise minimized. Warm blanket given. 09:07 Joey Luis PA is PHCP. jmm 09:07 Taurus Eng MD is Attending Physician. jmm 10:22 CT Abd/Pelvis - IV Contrast Only In Process Unspecified. EDMS 12:40 No provider procedures requiring assistance completed. IV discontinued, intact, iw bleeding controlled, No redness/swelling at site. Pressure dressing applied. Administered Medications: 09:30 Drug: NS 0.9% 1000 ml Route: IV; Rate: 1 bolus; Site: right antecubital; zb 09:30 Drug: morphine 4 mg Route: IVP; Site: right antecubital; zb 09:30 Drug: Zofran (Ondansetron) 4 mg Route: IVP; Site: right antecubital; zb 10:38 Drug: NS 0.9% 1000 ml Route: IV; Rate: 1 bolus; Site: right antecubital; zb 10:38 Drug: NS 0.9% 1000 ml Route: IV; Rate: 1 bolus; Site: right antecubital; zb 10:49 Drug: fentaNYL (PF) 50 mcg Route: IVP; Site: right antecubital; zb Outcome: 12:28 Discharge ordered by MD. jmm 12:40 Discharged to home ambulatory. iw 12:40 Condition: good 12:40 Discharge instructions given to patient, Instructed on discharge instructions, follow up and referral plans. Demonstrated understanding of instructions, follow-up care, medications, Prescriptions given X 2. 12:40 Patient left the ED. iw Signatures: Dispatcher [employer] EDMS Joey Luis PA PA jmm Martinez, Amelia as Williams, Irene, RN RN iw Brown, Zipporah, RN RN giuseppe
--- NOTE | 2020-06-24 12:28 | EDPHYS ---
Physician Documentation [facility] Name: Alex Auguste Age: 39 yrs Sex: Male : 1980 Arrival Date: 06/24/2020 Time: 08:47 Bed 13 Private MD: ED Physician Taurus Eng HPI: 06/24 09:13 This 39 yrs old Male presents to ER via Ambulatory with complaints of m Abdominal Pain. 09:13 The patient presents with abdominal pain. Onset: The symptoms/episode began/occurred jmm acutely, at 02:00. The symptoms radiate to The symptoms are described as achy. Modifying factors: The symptoms are alleviated by nothing, the symptoms are aggravated by nothing. This is a 39 year old male with a history of DM, GERD, pancreatitis that presents to the ED with complaints of epigastric pain beginning earlier this morning around 0200. States similar episodes in the past with previous episodes of pancreatitis. . Historical: - Allergies: 08:55 No Known Allergies; iw - Home Meds: 08:55 gemfibrozil 600 mg Oral tab 1 tab 2 times per day [Active]; [place]aco-3 350 mg-235 mg- 90 iw mg-597 mg oral cpDR [Active]; Lantus 100 unit/mL Sub-Q soln 36 unit nightly [Active]; Novolog 100 unit/mL Sub-Q soln before meals [Active]; Metoprolol Tartrate Oral 2 times per day [Active]; pantoprazole oral oral once daily [Active]; Creon oral oral after meals [Active]; - PMHx: 08:55 Chronic Pancreatitis; Diabetes - IDDM; GERD; iw - PSHx: 08:55 Cholecystectomy; iw - Immunization history:: Adult Immunizations not up to date. - Social history:: Smoking status: Patient reports the use of cigarette tobacco products, smokes one pack cigarettes per day. Patient uses alcohol, occasionally. ROS: 09:13 Constitutional: Negative for fever, chills, and weight loss, Cardiovascular: Negative jmm for chest pain, palpitations, and edema, Respiratory: Negative for shortness of breath, cough, wheezing, and pleuritic chest pain. 09:13 Abdomen/GI: Positive for abdominal pain, nausea. 09:13 All other systems are negative. Exam: 09:13 Constitutional: This is a well developed, well nourished patient who is awake, alert, jmm and in no acute distress. Head/Face: atraumatic. Eyes: EOMI, no conjunctival erythema appreciated ENT: Moist Mucus Membranes Neck: Trachea midline, Supple Chest/axilla: Normal chest wall appearance and motion. Cardiovascular: Regular rate and rhythm. No edema appreciated Respiratory: Normal respirations, no respiratory distress appreciated 09:13 Back: Normal ROM Skin: General appearance color normal MS/ Extremity: Moves all extremities, no obvious deformities appreciated, no edema noted to the lower extremities Neuro: Awake and alert, normal gait Psych: Behavior is normal, Mood is normal, Patient is cooperative and pleasant 09:13 Abdomen/GI: Inspection: abdomen appears normal, Bowel sounds: normal, Palpation: soft, mild abdominal tenderness, in all quadrants. Vital Signs: 08:59 BP 126 / 108; Pulse 124; Resp 18 S; Pulse Ox 100% on R/A; iw 09:59 BP 136 / 101; Pulse 95; Resp 16; Pulse Ox 99% on R/A; zb 12:00 BP 127 / 98; Pulse 90; Resp 18; Pulse Ox 99% on R/A; zb MDM: 09:07 Patient medically screened. [facility] 12:27 Data reviewed: vital signs, nurses notes. Counseling: I had a detailed discussion with [facility] the patient and/or guardian regarding: the historical points, exam findings, and any diagnostic results supporting the discharge/admit diagnosis, lab results, the need for outpatient follow up, to return to the emergency department if symptoms worsen or persist or if there are any questions or concerns that arise at home. ED course: Pain decreased in the ED. Advised to follow up with GI for further evaluation. Patient is otherwise given strict return precautions. Patient understood and agrees with the plan of care. . 06/24 09:12 Order name: Basic Metabolic Panel; Complete Time: 10:15 [facility] 06/24 09:12 Order name: CBC with Diff; Complete Time: 09:56 [facility] 06/24 09:12 Order name: Hepatic Function; Complete Time: 10:15 [facility] 06/24 09:12 Order name: Lipase; Complete Time: 10:15 [facility] 06/24 10:09 Order name: CT Abd/Pelvis - IV Contrast Only; Complete Time: 10:39 [facility] 06/24 09:12 Order name: IV Saline Lock; Complete Time: 09:20 [facility] 06/24 09:12 Order name: Labs collected and sent; Complete Time: : [facility] 06/24 11:45 Order name: PO challenge; Complete Time: 11:57 [facility] Administered Medications: 09:30 Drug: NS 0.9% 1000 ml Route: IV; Rate: 1 bolus; Site: right antecubital; zb 09:30 Drug: morphine 4 mg Route: IVP; Site: right antecubital; zb 09:30 Drug: Zofran (Ondansetron) 4 mg Route: IVP; Site: right antecubital; zb 10:38 Drug: NS 0.9% 1000 ml Route: IV; Rate: 1 bolus; Site: right antecubital; zb 10:38 Drug: NS 0.9% 1000 ml Route: IV; Rate: 1 bolus; Site: right antecubital; zb 10:49 Drug: fentaNYL (PF) 50 mcg Route: IVP; Site: right antecubital; zb Disposition: 17:50 Co-signature as Attending Physician, Taurus Eng MD Did not see or evaluate patient. ps1 Signature for administrative purposes. . Disposition: 06/24/20 12:28 Discharged to Home. Impression: Acute pancreatitis. - Condition is Stable. - Discharge Instructions: Clear Liquid Diet, Adult, Acute Pancreatitis. - Prescriptions for Zofran ODT 4 mg Oral tablet,disintegrating - place 1 tablet by TRANSLINGUAL route every 4-6 hours; 20 tablet. Tylenol- Codeine #3 300-30 mg Oral Tablet - take 1 tablet by ORAL route every 6 hours As needed; 20 tablet. - Medication Reconciliation Form, Thank You Letter, Antibiotic Education, Prescription Opioid Use form. - Follow up: Private Physician; When: 2 - 3 days; Reason: Recheck today's complaints, Continuance of care, Re-evaluation by your physician. Signatures: Dispatcher [employer] Joey Bright PA PA jmm Williams, Irene, RN RN iw Singer, Phillip, MD MD ps1 Brown, Zipporah, RN RN zb Corrections: (The following items were deleted from the chart) 12:40 12:28 06/24/2020 12:28 Discharged to Home. Impression: Acute pancreatitis. Condition is iw Stable. Forms are Medication Reconciliation Form, Thank You Letter, Antibiotic Education, Prescription Opioid Use. Follow up: Private Physician; When: 2 - 3 days; Reason: Recheck today's complaints, Continuance of care, Re-evaluation by your physician. pietro
[2020-06-27 08:11] VITALS: BP 136/101; O2SAT 99
[2020-07-04] MEDS ORDERED: ACETAMINOPHEN 500 MG TAB ONE (19:11)
== END 2020-06-24 12:40 | disposition home or self-care (01) ==
LOC: ER 08:46
DX: K85.90 Acute pancreatitis without necrosis or infection, unspecified (principal); F17.210 Nicotine dependence, cigarettes, uncomplicated; E11.9 Type 2 diabetes mellitus without complications; K21.9 Gastro-esophageal reflux disease without esophagitis; Z79.4 Long term (current) use of insulin
CPT/HCPCS: 85025; 80048; 36415; 80076; 83690; 74177; 96375; 96374; 99284; Q9967; J3010; J7030 ×2; J2405

== ENCOUNTER 2020-07-28 14:21 | Emergency (ER) | payer BC ==
[2012-03-06 01:58] VITALS: BP 138/67
--- OUTSIDE RECORDS SUMMARY | 2020-07-28 14:22 | XMS REPORT | Continuity of Care Document ---
:1980 Author Organization [facility] t Address [address] [place] [address] Care Team Providers Name Role Phone Madeline MCDONNELL, M Attending Clinician Concepción FLORES, S Attending Clinician Rebeca FLORES Attending Clinician Doctor Unassigned, Name Attending Clinician Unavailable Kiko FLORES, H Attending Clinician Rebeca FLORES Admitting Clinician Problems This patient has no known problems. Allergies, Adverse Reactions, Alerts This patient has no known allergies or adverse reactions. Medications This patient has no known medications. Procedures This patient has no known procedures. Encounters Start End Encounter Admission Attending Care Care Encounter Source Date/Time Date/Time Type Type Clinicians Facility Department ID 2020-07-01 2020-07-01 Transition Sam Correa 1.2.840.114 [id number] 00:00:00 00:00:00 of Care Annita Bran [id number] [place] [id number] 2020-06-25 2020-06-29 [facility] GhislainemedardoJuana [facility] 1.2.840. [id number] 20:44:00 19:29:00 Encounter Laurence Jose [id number] [place] [id number] [place] [id number] 2020-06-25 2020-06-25 Orders Doctor JEROME [id number] 00:00:00 00:00:00 Only Unassigned, KYLE [id number] [place] [id number] [id number] 2020-02-09 2020-02-09 Telemedici [facility] [id number] 15:04:39 15:53:06 ne Visit Cole Pierre [id number] [place] [id number] [facility] [phone] nal 220 Building 2020-02-09 2020-02-09 Orders Doctor QUEENIE [id number] 00:00:00 00:00:00 Only Unassigned, KYLE [id number] [place] [phone] [id number] 2020-02-07 2020-02-07 Telephone [facility] [id number] 00:00:00 00:00:00 Cole Pierre [id number] [place] [id number] [facility] [phone] nal 220 Building Results This patient has no known results.
--- OUTSIDE RECORDS SUMMARY | 2020-07-28 14:22 | XMS REPORT | Summary of Care ---
:1980 Author Organization [facility] [[email or web address]] - [facility] Address [address] [place] [address] Care Team Providers Name Role Phone Briannerashaun Evert Primary Care Provider Encounter Details Date Type Department Care Team Description 06/25/2020 Orders Only [facility] [[email or web address]] Doctor Unassigned, No [address] [facility] [place], [place] Name [place] [id number] [place] [address] Allergies No Known Allergiesdocumented as of this encounter (statuses as of 06/25/2020) Medications Medication Sig Dispensed Refills Start Date End Date Status Lancets 400 Each 3 04/04/2012 Active (LANCETS,ULTRA THIN) MiscIndications: Type II or unspecified type diabetes mellitus without mention of complication, uncontrolled traMADOL (ULTRAM) 50 Take 1 Tab by 30 Tab 1 04/22/2015 Active mg tablet mouth every 6 (six) hours as needed for Pain (scale 7-10). zolpidem (AMBIEN) 10 TAKE ONE TABLET 30 Tab 0 05/22/2015 Active mg tablet BY MOUTH ONCE DAILY AT BEDTIME insulin aspart Inject as 24 mL 3 12/29/2016 Acti ve (NOVOLOG FLEXPEN) 100 instructed TID AC unit/mL up to 80 units injectionIndications: daily Type 2 diabetes mellitus with complication, with long-term current use of insulin Insulin Glargine inject 35 Units 11 mL 3 12/29/2016 Active (LANTUS SOLOSTAR) 100 under the skin unit/mL (3 mL) every morning. injectionIndications: Type 2 diabetes mellitus with complication, with long-term current use of insulin Insulin [place], QID, DX:E11.9 400 Each 3 04/05/2017 Active Disposable, (BD INSULIN PEN NEEDLE UF) 31 gauge x 5/16" Ndle ondansetron (ZOFRAN Take 1 tablet by 10 tablet 0 11/11/2018 Active ODT) 4 mg mouth every 8 disintegrating (eight) hours as tabletIndications: needed for Nausea Epigastric pain and Vomiting (N/V). LOVAZA, [id number] Take 3 capsules 270 capsule 3 02/09/2020 Active ethyl esters, 1 gram by mouth daily. capsuleIndications: Type 2 diabetes mellitus with other specified complication, with long-term current use of insulin documented as of this encounter (statuses as of 06/25/2020) Active Problems Problem Noted Date Hypertriglyceridemia 12/29/2016 Type 2 diabetes mellitus with complication, with long- term current use of 12/29/2016 insulin Diplopia 04/19/2015 Diabetes mellitus type 2, uncontrolled, without compli cations 04/04/2012 Overview: ICD10 Diagnosis Term Loss Prevention Auditor Utility HLD (hyperlipidemia) 04/04/2012 Essential hypertension, benign 04/04/2012 Vitamin D deficiency 04/04/2012 Overview: ICD10 Diagnosis Term Loss Prevention Auditor Utility documented as of this encounter (statuses as of 06/25/2020) Social History Tobacco Use Types Packs/Day Years Used Date Never Smoker Smokeless Tobacco: Current User Snuff Alcohol Use Drinks/Week oz/Week Comments No 0 Standard drinks or equivalent 0.0 occasional Sex Assigned at Date Recorded Not on file documented as of this encounter Last Filed Vital Signs Not on filedocumented in this encounter Plan of Treatment Health Maintenance Due Date Last Done Comments EYE EXAM 1989 URINE MICROALBUMIN 1989 Depression Screening 1991 DTaP,Tdap,and Td Vaccines 1998 (1 - Tdap) LDL-C 07/25/2013 07/25/2012, 04/04/2012, 04/04/2012 HgA1C 10/03/2017 04/05/2017, 04/19/2015, 04/04/2012, Additional history exists FOOT EXAM 04/05/2018 04/05/2017, 04/05/2017, 12/29/2016, Additional history exists CREATININE (SERUM) 11/12/2019 11/11/2018, 09/30/2018, 02/22/2017, Additional history exists INFLUENZA VACCINE (#1) 2020 PNEUMOCOCCAL 0-64 YEARS Aged Out No longe r eligible COMBINED SERIES based on patient 's age to complete this topic documented as of this encounter Procedures Procedure Name Priority Date/Time Associated Diagnosis Comme nts CONSENT/REFUSAL FOR Routine 06/25/2020 8:29 PM CLASSIFIER DIAGNOSIS AND TREATMENT documented in this encounter Results Not on filedocumented in this encounter Insurance Payer Benefit Plan Subscriber ID Effective Dates Phone Address Type / Group BCBS [facility] [id number] 2019-Prese [phone] [address] PPO/POS [place] - OUT OF 7 [id number] [place] [address] documented as of this encounter Advance Directives Type Date Recorded 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
--- OUTSIDE RECORDS SUMMARY | 2020-07-28 14:24 | XMS REPORT | Summary of Care ---
:1980 Author Organization [facility] Address [address] [place] [id number] Care Team Providers Name Role Phone Frankistephan Evert Primary Care Provider Reason for Visit Reason Comments Transition Of Care Encounter Details Date Type Department Care Team Description 07/01/2020 Transition of Care [facility] Annita Correa [facility]- RN [address] [address] Allergies No Known Allergiesdocumented as of this encounter (statuses as of 07/01/2020) Medications Medication Sig Dispensed Refills Start Date End Date Status Lancets 400 Each 3 04/04/2012 Active (LANCETS,ULTRA THIN) MiscIndications: Type II or unspecified type diabetes mellitus without mention of complication, uncontrolled insulin aspart Inject as 24 mL 3 [...] complication, with long-term current use of insulin Additional Information Patient taking differently: 36 Units Subcutaneous QHS, Reported on 06/26/2020 1:57 AM Insulin [place], QID, DX:E11.9 400 Each 3 04/05/2017 Active Disposable, (BD INSULIN PEN NEEDLE UF) 31 gauge x 5/16" Ndle akhiletron (ZOFRAN ODT) Take 1 tablet by 10 tablet 0 11/12/19 19 Active 4 mg disintegrating mouth every 8 tabletIndications: (eight) hours as Epigastric pain needed for Nausea and Vomiting (N/V). LOVAZA, afqij-4-siyz Take 3 capsules by 270 capsule 3 02/09/20 20 Active ethyl esters, 1 gram mouth daily. capsuleIndications: Type 2 diabetes mellitus with other specified complication, with long-term current use of insulin gemfibroziL 600 mg Take 600 mg by 0 Active tablet mouth 2 (two) times daily before breakfast and dinner. metoprolol tartrate 25 Take 25 mg by mouth 0 Active mg tablet 2 (two) times daily. Pantoprazole 40 mg Take 40 mg by mouth 0 Active delayed-release daily. suspension busPIRone 10 mg tablet Take 10 mg by mouth 0 Active 2 (two) times daily. niacin 500 mg tablet Take 500 mg by 0 Active mouth daily with breakfast. sofaec-dozlupib-mfmalnc Take 36,000 Units 0 Active (CREON) 36,000-114,000- by mouth with all 180,000 unit CpDR meals. Take 2 capsules by mouth with meals and 1 with each snack. losartan 25 mg tablet Take 25 mg by mouth 0 Active daily. vortioxetine 10 mg Tab Take 10 mg by mouth 0 Active at bedtime. atorvastatin 40 mg Take 1 tablet by 30 tablet 0 06/29/2020 Active tabletIndications: mouth at bedtime Hyperlipidemia, for 30 days. unspecified hyperlipidemia type documented as of this encounter (statuses as of 07/01/2020) Active Problems Problem Noted Date Acute on chronic pancreatitis 06/26/2020 Hypertriglyceridemia 12/29/2016 Type 2 diabetes mellitus with complication, with long- term current use of 12/29/2016 insulin Diplopia 04/19/2015 Diabetes mellitus type 2, uncontrolled, without compli cations 04/04/2012 Overview: ICD10 Diagnosis Term Mobile Mechanic Utility HLD (hyperlipidemia) 04/04/2012 Essential hypertension, benign 04/04/2012 Vitamin D deficiency 04/04/2012 Overview: ICD10 Diagnosis Term Mobile Mechanic Utility documented as of this encounter (statuses as of 07/01/2020) Social History Tobacco Use Types Packs/Day Years Used Date Never Smoker Smokeless Tobacco: Current User Snuff Alcohol Use Drinks/Week oz/Week Comments No 0 Standard drinks or equivalent 0.0 occasional Sex Assigned at Date Recorded Not on file COVID-19 Exposure Response Date Recorded In the last month, have you been in contact with No / Unsure 06/25/2020 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 documented as of this encounter Last Filed Vital Signs Not on filedocumented in this encounter Miscellaneous Notes Telephone Encounter - Annita Correa RN - 07/01/2020 9:47 AM CST TRANSITIONAL CARE MANAGEMENT ASSESSMENT 07/01/2020 Alex Auguste [id number] Alex Auguste is a 39 year old /White male was admitted on 06/25/20 to [facility], ADC MED SURG. He was discharged on 06/29/20 with discharge disposition of HR- Routine Discharge. Admitting Physician: Laurence Jose Discharge Diagnosis: Acute on chronic pancreatitis Linked Episodes Type: Episode: Status: Noted: Resolved: Last update: Updated by: TRANSITION OF CARE TCM Active 06/29/2020 07/01/2020 9:46 AM Annita Correa RN Comments:06/29/2020 TCM Dtv-flnd-bh-face outreach documentation: Discharge Assessment Chart Assessed: 07/01/20 TCM Outreach Completed: 07/01/20 Do you have a few minutes to speak with me about how you are doing at home?: Yes Discharge Instructions Do you understand your at-home instructions?: Yes Medications Have you filled your prescriptions and do you have them in your home? : Yes Do you know how to take your medications?: Yes Supplies Did you receive applicable home medical supplies/equipment?: N/A Follow Up Appointment Has a follow up appointment been scheduled?: Yes Do you have any questions about your follow up appointments?: No Are you able to get to your appointment? Who will be taking you?: Yes(self/spouse) Home Health Assistance Has the home health nurse contacted you since you've been home?: N/A Survey - Recognition Is there anything you would like to share about your recent hospitalization, or anyone you would like to recognize?: No Do you have any suggestions for improvement?: No Do you have any other questions or concerns at this time?: No Future Appointments: BED LABORER documented in this encounter Plan of Treatment Health Maintenance Due Date Last Done Comments EYE EXAM 1989 URINE MICROALBUMIN 1989 Depression Screening 1991 DTaP,Tdap,and Td Vaccines 1998 (1 - Tdap) FOOT EXAM 04/05/2018 04/05/2017, 04/05/2017, 12/29/2016, Additional history exists INFLUENZA VACCINE (#1) 2020 HgA1C 12/25/2020 06/26/2020, 04/05/2017, 04/19/2015, Additional history exists LDL-C 06/26/2021 06/26/2020, 07/25/2012, 04/04/2012, Additional history exists CREATININE (SERUM) 06/29/2021 06/29/2020, 06/28/2020, 06/27/2020, Additional history exists PNEUMOCOCCAL 0-64 YEARS Aged Out No longe r eligible COMBINED SERIES based on patient 's age to complete this topic documented as of this encounter Results Not on filedocumented in this encounter Insurance Payer Benefit Plan Subscriber ID Effective Dates Phone Address Type / Group BCBS [facility] [id number] 2019-Prese [phone] [address] PPO/POS [place] - OUT OF nt [id number] [place] [address] documented as of this encounter Advance Directives Type Date Recorded 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
--- OUTSIDE RECORDS SUMMARY | 2020-07-28 14:24 | XMS REPORT | Summary of Care ---
:1980 Author Organization [facility] Address [address] [place] [address] Care Team Providers Name Role Phone Evert Lira Primary Care Provider Reason for Referral (Routine) Status Reason Specialty Diagnoses / Referred By Referred To Procedures Contact Contact New Request PN-PSYCHIATRY Diagnoses Depression, unspecified depression type Favio Moscoso MD Procedures Discharge Follow-Up: Specialty Service PN-PSYCHIATRY; 3-5 Days [address] [place] [address] (Routine) Status Reason Specialty Diagnoses / Referred By Referred To Procedures Contact Contact New Request IM-GASTROENTEROLO Diagnoses Acute on chronic pancreatitis Favio Moscoso MD GY Procedures Discharge Follow-Up: Specialty Service IM-GASTROENTEROLOGY; 1 Week [address] [place] [address] (Routine) Status Reason Specialty Diagnoses / Procedures Referred By Thomas reed To Contact Contact New Request Diagnoses Acute on chronic pancreatitis Favio Moscoso MD [place], Frank E Procedures Discharge Follow-up: PCP GINO LIRA JR; 1 Week [address] [address] [facility] Phone: NING Olivo [phone] [place] [address] Fax: MRI/CAT Scan (STAT) Status Reason Specialty Diagnoses / Referred By Referred To Procedures Contact Contact New Request Diagnostic Diagnoses Generalized abdominal pain Kofi Beebe Radiology Procedures CT ABDOMEN PELVIS Aysha Justice MD [address] [facility] [id number] [place] [address] Reason for Visit Reason Comments Abdominal Pain Auth/Cert Status Reason Specialty Diagnoses / Referred By Referred To Procedures Contact Contact Emergency Medicine [facility] ergency Dept [address] [place] [phone] Fax: Encounter Details Date Type Department Care Team Description 06/25/2020 - [facility] ADC Medicine Kofi Beebe MD [address] [facility] [id number] [place] [address] [phone] Acute on chronic 06/29/2020 Encounter Surgery Unit Laurence Jose MD [address] [facility] [place], [place] [id number] pancreatitis [address] [place] [address] Allergies No Known Allergiesdocumented as of this encounter (statuses as of 06/29/2020) Medications Medication Sig Dispensed Refills Start Date [...] QHS, Reported on 06/26/2020 1:57 AM Insulin [place], QID, DX:E11.9 400 Each 3 04/05/2017 Active Disposable, (BD INSULIN PEN NEEDLE UF) 31 gauge x 5/16" Ndle akhiletron (ZOFRAN Take 1 tablet 10 tablet 0 11/11/2018 Active ODT) 4 mg by mouth every disintegrating 8 (eight) hours tabletIndications: as needed for Epigastric pain Nausea and Vomiting (N/V). LOVAZA, [id number] Take 3 capsules 270 capsule 3 02/09/2020 Active ethyl esters, 1 gram by mouth daily. capsuleIndications: Type 2 diabetes mellitus with other specified complication, with long-term current use of insulin gemfibroziL 600 mg Take 600 mg by 0 Active tablet mouth 2 (two) times daily before breakfast and dinner. metoprolol tartrate Take 25 mg by 0 Active 25 mg tablet mouth 2 (two) times daily. Pantoprazole 40 mg Take 40 mg by 0 Active delayed-release mouth daily. suspension busPIRone 10 mg Take 10 mg by 0 Active tablet mouth 2 (two) times daily. niacin 500 mg tablet Take 500 mg by 0 Active mouth daily with breakfast. vewxga-itgvdema-ilxeu Take 36,000 0 Active se (CREON) Units by mouth 36,000-114,000- with all meals. 180,000 unit CpDR Take 2 capsules by mouth with meals and 1 with each snack. losartan 25 mg tablet Take 25 mg by 0 Active mouth daily. vortioxetine 10 mg Take 10 mg by 0 Active Tab mouth at bedtime. atorvastatin 40 mg Take 1 tablet 30 tablet 0 06/29/202007/29/ Active tabletIndications: by mouth at 2020 Hyperlipidemia, bedtime for 30 unspecified days. hyperlipidemia type traMADOL (ULTRAM) 50 Take 1 Tab by 30 Tab 1 04/22/201506/11 6/ Discontinued mg tablet mouth every 6 2019 ([place] (six) hours as thera py) needed for Pain (scale 7-10). zolpidem (AMBIEN) 10 TAKE ONE TABLET 30 Tab 0 05/22/2015/ Discontinued mg tablet BY MOUTH ONCE 2019 (Disco ntinued by DAILY AT another inician) BEDTIME documented as of this encounter (statuses as of 06/29/2020) Active Problems Problem Noted Date Acute on chronic pancreatitis 06/26/2020 Hypertriglyceridemia 12/29/2016 Type 2 diabetes mellitus with complication, with long- term current use of 12/29/2016 insulin Diplopia 04/19/2015 Diabetes mellitus type 2, uncontrolled, without compli cations 04/04/2012 Overview: ICD10 Diagnosis Term Gse Mechanic Utility HLD (hyperlipidemia) 04/04/2012 Essential hypertension, benign 04/04/2012 Vitamin D deficiency 04/04/2012 Overview: ICD10 Diagnosis Term Gse Mechanic Utility documented as of this encounter (statuses as of 06/29/2020) Social History Tobacco Use Types Packs/Day Years Used Date Never Smoker Smokeless Tobacco: Current User Snuff Alcohol Use Drinks/Week oz/Week Comments No 0 Standard drinks or equivalent 0.0 occasional Sex Assigned at Date Recorded Not on file COVID-19 Exposure Response Date Recorded In the last month, have you been in contact with No / Unsure 06/25/2020 8:31 PM LAVATORY ATTENDANT someone who was confirmed or suspected to have Coronavirus / COVID-19? documented as of this encounter Last Filed Vital Signs Vital Sign Reading Time Taken Comments Blood Pressure 133/81 06/29/2020 4:21 PM LAVATORY ATTENDANT Pulse 89 06/29/2020 4:21 PM LAVATORY ATTENDANT Temperature 36.8 C (98.3 F) 06/29/2020 4:21 PM LAVATORY ATTENDANT Respiratory Rate 18 06/29/2020 4:21 PM LAVATORY ATTENDANT Oxygen Saturation 99% 06/29/2020 4:21 PM LAVATORY ATTENDANT Inhaled Oxygen Concentration - - Weight 88 kg (194 lb) 06/27/2020 4:03 AM LAVATORY ATTENDANT Height 177.8 cm (5' 10") 06/26/2020 1:45 AM LAVATORY ATTENDANT Body Mass Index 27.84 06/26/2020 1:45 AM LAVATORY ATTENDANT documented in this encounter Discharge Instructions AttachmentsThe following attachments cannot be sent through Care Everywhere. Pancreatitis, Chronic, Discharge Instructions for (Ghanaian)Triglycerides (Ghanaian)Atorvastatin tablets (Ghanaian)documented in this encounter Progress Notes Geovanna Ye FNP - 06/28/2020 6:57 PM CST [facility] Hospitalist Progress Note SUBJECTIVE: Patient with a suicidal ideation episode, per nurse patient not wanting to live patient having some relationship issues, tearful, agitated, loud outbursts. Security cane to assist with calming patient down. Patient verbalized that he did nothing while he was not imprisonment and was wanting to go home. Instructed Patient that he was on a suicide watchand sitter in room, patient stated he wanted to write a contract that he would not harm himself or others and that he does not have a plan. CURRENT MEDICATIONS - reviewed. Current Facility-Administered Medications Medication Dose Route Frequency Last Rate Last Admin dextrose 50 % in water (D50W) injection 25 mL 25 mL Slow IV Push PRN FLUoxetine (PROZAC) capsule 20 mg 20 mg Oral DAILY 20 mg at 06/28/20 1549 glucagon (GLUCAGEN DIAGNOSTIC KIT) injection 1 mg 1 mg Intramuscular PRN NaCl 0.9% (NS) IV infusion 1,000 mL 1,000 mL IV Infusion CONTINUOUS 100 mL/hr at 06/28/20 0841 1,000 mL at 06/28/20 0841 Sliding Scale Insulin-Regular + Fsbg Testing Subcutaneous AC+HS 2 Units at 06/28/20 1702 metoprolol tartrate (LOPRESSOR) tablet 25 mg 25 mg Oral BID 25 mg at 06/28/20 0838 morpHINE injection 2 mg 2 mg Slow IV Push Q4HPRN 2 mg at 06/28/20 1651 omega 1-bdi-ece-fish oil (FISH OIL) capsule 1,000 mg 1,000 mg Oral TID 1,000 mg at 06/28/20 1549 acetaminophen (TYLENOL) tablet 650 mg 650 mg Oral Q6HPRN atorvastatin (LIPITOR) tablet 40 mg 40 mg Oral QHS 40 mg at 06/27/20 202 busPIRone (BUSPAR) tablet 10 mg 10 mg Oral BID 10 mg at 06/28/20 0838 enoxaparin (LOVENOX) injection 40 mg 40 mg Subcutaneous DAILY 40 mg at 06/28/20 0834 gemfibroziL (LOPID) tablet 600 mg 600 mg Oral BID 600 mg at 06/28/20 0838 ketorolac (TORADOL) injection 30 mg 30 mg Slow IV Push Q6HPRN 30 mg at 06/27/20 1615 proCHLORperazine (COMPAZINE) 10 mg in NaCl 0.9% (NS) piggyback 10 mg IV Piggyback Q4HPRN 10 mg at 06/26/202014 proMETHazine (PHENERGAN) 12.5 mg in NaCl 0.9% (NS) 50 mL IV piggyback 12.5 mg IV Piggyback Q4HPRN 12.5 mg at 06/28/20 0032 PHYSICAL EXAM: BP 117/77 | Pulse 72 | Temp 36.6 C (97.8 F) (Oral) | Resp 15 | Ht 1.778 m (5' 10") | Wt 88 kg (194 lb) | SpO2 96% | BMI 27.84 kg/m General: NAD HEENT: Anicteric sclerae, NCAT Lungs: CTAB Cardio: RRR, strong symmetric pulses Abdomen: Soft, NTND Genitourinary: No lesions Musculoskeletal: Normal muscle mass, no synovitis Skin: No rash or lesions, normal turgot Neuro: AAOx3, no focal deficits Psych: Abnormal, tearful, agitated affect LABS/IMAGING - reviewed, pertinent results as below: CBC BMP PT/INR WBC x10^3 (/uL) Date Value 04/04/2012 5.7 WBC (10*3/L) Date Value 06/28/2020 3.12 (L) NA Date Value 06/28/2020 140 mmol/L 04/04/2012 138 MMOL/L No results found for: PT RBC x10^6 (/uL) Date Value 04/04/2012 4.54 RBC (10*6/L) Date Value 06/28/2020 4.73 K Date Value 06/28/2020 3.0 mmol/L (L) 04/04/2012 4.4 MMOL/L INR (no units) Date Value 02/22/2017 0.9 PLT x10^3 (/uL) Date Value 04/04/2012 149 (L) PLT (10*3/L) Date Value 06/28/2020 118 (L) CALCIUM Date Value 06/28/2020 8.9 mg/dL 04/04/2012 9.1 MG/DL HGB Date Value 06/28/2020 13.6 g/dL 04/04/2012 12.7 G/DL CL Date Value 06/28/2020 106 mmol/L 04/04/2012 100 MMOL/L aPTT HCT (%) Date Value 06/28/2020 39.2 04/04/2012 37.7 (L) BUN Date Value 06/28/2020 <2 mg/dL (L) 04/04/2012 13 MG/DL APTT Patient (Seconds) Date Value 04/19/2015 35 CREATININE Date Value 06/28/2020 0.59 mg/dL (L) 04/04/2012 0.87 MG/DL IMAGING- Hospital Encounter on 06/25/20 CT ABDOMEN PELVIS W CONTRAST Narrative Exam: CT Abdomen and Pelvis With Contrast, 06/25/2020 9:45 PM. Ordering Physician: KOFI BEEBE. History: Acute, generalized abdominal pain. Technique: CT abdomen and pelvis was obtained with intravenous contrast. CT was performed according to ALARA (As Low As Reasonably Achievable). Comparison: None. Findings: CT Abdomen: Lung bases are clear. Heart size is normal. Gallbladder is surgically absent. There is peripancreatic fat stranding. Within the pancreatic tail, there is a hypodense 4.8 x 4.2 cm structure. A small area of hypoattenuation in the pancreatic uncinate process measures approximately 1.7 cm. There is no pancreatic or biliary duct dilatation. Spleen is enlarged. Splenic vein is attenuated at its peripheral aspect, suggesting prior thrombosis. Multiple serpiginous enhancing structures in the upper abdomen likely represent varices. The adrenal glands are normal. Kidneys are symmetric in size, enhancement, and contrast excretion. There is no hydronephrosis or hydroureter. There is no free air or free fluid. There is no abdominal adenopathy. Stomach is unremarkable. There is duodenal mucosal fold thickening. Diverticulum is noted at the third portion of the duodenum. There is no evidence of bowel obstruction. Appendix is normal. There is moderate colonic diverticulosis. No focal peridiverticular inflammatory changes are seen. There is mild diffuse colonic wall thickening. There are degenerative changes of the spine. CT Pelvis: Pelvic small bowel loops are unremarkable. Urinary bladder is unremarkable. Prostate and seminal vesicles are not enlarged. There is trace pelvic free fluid. There is no pelvic adenopathy. Osseous structures are unremarkable. Impression Impression: 1. Peripancreatic inflammation, likely representing acute pancreatitis. 1.7 cm area of hypoattenuation in the pancreatic uncinate process may represent focal necrosis or developing pseudocyst. 2. 4.8 cm hypodense structure in the pancreatic tail may represent a pseudocyst. Cystic pancreatic neoplasm is not excluded. Given size greater than 3 cm, cyst aspiration is suggested, if clinically indicated. Otherwise, follow-up MRI of the pancreas and MRCP is suggested every 6 months for 2 years. 3. Duodenal mucosal fold thickening, which may represent reactive duodenitis. 4. Mild diffuse colonic wall thickening, consistent with colitis. 5. Moderate colonic diverticulosis without evidence of diverticulitis. 6. No free air. Trace pelvic free fluid. 7. 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 Result splenomegaly with varices demonstrated in the upper abdomen. RL: 2824 AFC: 35020 End of Report SSMENT/PLAN Alex Auguste is a 39 year old male with PMH as listed above, admitted to the hospital with: # Anxiety/suicide ideation -- Suicide protocol initiated, [place] risk assessment completed, see suicide note -- Patient given Ativan, Haldol for agitation -- Patient states takes "Crazy medication" but has been vomiting and unable keep it ingested -- [facility] consult psych -- Drug and alcohol screening done pending results -- Patient on a warrant #.Acute on chronic pancreatitis: -- Diet advanced to clear liquids -- Continue IV fluid hydration -- check triglyceride 519 insulin drip. Patient started on clear liquid -- Patient still complain of some mild abdominal pain -- Nausea/pain control -- trend lipid panel -- Will resume Creon 2 tablets with meals when patient is able to resume a diet #. Severe triglyceridemia trending down -- will trend -- Resume gemfibrozil, omega-3 and start atorvastatin 3. Type II: slightly controlled -- SSI -- Will resume outpatient medications that are available in the [facility] [place] [facility] -- Holding metformin due to increased of lactic acidosis in hospitalized patients. 4. HLD: -- AM lipid panel 5. HTN: still controlled -- Metoprolol 25 mg twice a day #. Depression -- BuSpar 10 mg twice a day -- Patient takes vortioxetine 10 mg daily Will substitute for fluoxetine 20 mg daily Prophylaxis: DVT- enoxaparin Stress Ulcer: no indication for prophylaxis Code Status: addressed: full code Disposition: pending [facility] assessment [place] TECHNICAL MARKETING ENGINEER was viewed during this stay JOSE ENRIQUE Minaya TORY ATTENDANT Associated attestation - Favio Moscoso MD - 06/28/2020 7:29 PM CSTI personally evaluated and examined the patient on 06/28/2020 and agree with the note as detailed bythe nurse practitioner. I actively participated in the decision- making process. In summary, patient was admitted for hypertriglyceridemia induced acute pancreatitis. On insulin gttper protocol. Now off insulin gtt. , [facility] team consulted. Suicide precaution. Rest of plan per below. Favio Moscoso M.D. 06/28/2020 7:29 PM Naomi العراقي LBSW - 06/28/2020 3:34 PM CSTSubjective Patient ID: Alex Auguste is a 39 year old male. [facility] Mental Health Officer called to request Longterm Warrant for suicidal ideations andthreats. [facility] has been called requesting screening for appropriate disposition. ADILSON Chambers Electromechanical Technologist - Care Management [facility] [phone] [email or web address] Review of Systems Objective Physical Exam Assessment/Plan Awaiting fpc warrant hbong, JOSE ENRIQUE Adames - 06/27/2020 3:18 PM CST [facility] Hospitalist Progress Note SUBJECTIVE: Patient seen at bedside still complaining of some abdominal pain at this time. Denies nausea vomiting. But is requesting to eat CURRENT MEDICATIONS - reviewed. Current Facility-Administered Medications Medication Dose Route Frequency Last Rate Last Admin insulin regular in 0.9 % NaCl (MYXREDLIN) 100 unit/100 mL (1 unit/mL) RTU IV infusion 5 Units/hr IV Infusion TITRATE 5 mL/hr at 06/27/20 0528 5 Units/hr at 06/27/20 0528 morpHINE injection 2 mg 2 mg Slow IV Push Q4HPRN 2 mg at 06/27/20 1304 omega 4-vbf-ekm-fish oil (FISH OIL) capsule 1,000 mg 1,000 mg Oral TID 1,000 mg at 06/27/20 1304 acetaminophen (TYLENOL) tablet 650 mg 650 mg Oral Q6HPRN atorvastatin (LIPITOR) tablet 40 mg 40 mg Oral QHS 40 mg at 06/26/202000 busPIRone (BUSPAR) tablet 10 mg 10 mg Oral BID 10 mg at 06/27/20 0849 D5W 0.9% NaCl (NS) IV infusion 1,000 mL 1,000 mL IV Infusion CONTINUOUS 125 mL/hr at 06/27/20 1027 1,000 mL at 06/27/20 1027 dextrose 50 % in water (D50W) injection 25 mL 25 mL Slow IV Push PRN 25 mL at 06/26/20 2255 enoxaparin (LOVENOX) injection 40 mg 40 mg Subcutaneous DAILY 40 mg at 06/27/20 0849 gemfibroziL (LOPID) tablet 600 mg 600 mg Oral BID 600 mg at 06/27/20 0849 glucagon (GLUCAGEN DIAGNOSTIC KIT) injection 1 mg 1 mg Intramuscular PRN ketorolac (TORADOL) injection 30 mg 30 mg Slow IV Push Q6HPRN 30 mg at 06/27/20 1028 NaCl 0.9% (NS) IV infusion 1,000 mL 1,000 mL IV Infusion CONTINUOUS Stopped at 06/26/20 1443 proCHLORperazine (COMPAZINE) 10 mg in NaCl 0.9% (NS) piggyback 10 mg IV Piggyback Q4HPRN 10 mg at 06/26/202014 proMETHazine (PHENERGAN) 12.5 mg in NaCl 0.9% (NS) 50 mL IV piggyback 12.5 mg IV Piggyback Q4HPRN 12.5 mg at 06/26/20 0950 traMADoL (ULTRAM) tablet 50 mg 50 mg Oral Q8HPRN PHYSICAL EXAM: BP (!) 168/100 | Pulse 92 | Temp 36.9 C (98.5 F) | Resp 16 | Ht 1.778 m (5' 10") | Wt 88 kg(194 lb) | SpO2 98% | BMI 27.84 kg/m General: NAD HEENT: Anicteric sclerae, NCAT Lungs: CTAB Cardio: RRR, strong symmetric pulses Abdomen: Soft, epigastric tenderness Genitourinary: No lesions Musculoskeletal: Normal muscle mass, no synovitis Skin: No rash or lesions, normal turgot Neuro: AAOx3, no focal deficits Psych: Normal affect LABS/IMAGING - reviewed, pertinent results as below: CBC BMP PT/INR WBC x10^3 (/uL) Date Value 04/04/2012 5.7 WBC (10*3/L) Date Value 06/27/2020 3.00 (L) NA Date Value 06/27/2020 135 mmol/L 04/04/2012 138 MMOL/L No results found for: PT RBC x10^6 (/uL) Date Value 04/04/2012 4.54 RBC (10*6/L) Date Value 06/27/2020 4.47 K Date Value 06/27/2020 3.6 mmol/L 04/04/2012 4.4 MMOL/L INR (no units) Date Value 02/22/2017 0.9 PLT x10^3 (/uL) Date Value 04/04/2012 149 (L) PLT (10*3/L) Date Value 06/27/2020 101 (L) CALCIUM Date Value 06/27/2020 8.9 mg/dL 04/04/2012 9.1 MG/DL HGB Date Value 06/27/2020 12.9 g/dL 04/04/2012 12.7 G/DL CL Date Value 06/27/2020 104 mmol/L 04/04/2012 100 MMOL/L aPTT HCT (%) Date Value 06/27/2020 36.9 (L) 04/04/2012 37.7 (L) BUN Date Value 06/27/2020 5 mg/dL (L) 04/04/2012 13 MG/DL APTT Patient (Seconds) Date Value 04/19/2015 35 CREATININE Date Value 06/27/2020 0.56 mg/dL (L) 04/04/2012 0.87 MG/DL IMAGING- Hospital Encounter on 06/25/20 CT ABDOMEN PELVIS W CONTRAST Narrative Exam: CT Abdomen and Pelvis With Contrast, 06/25/2020 9:45 PM. Ordering Physician: KOFI BEEBE. History: Acute, generalized abdominal pain. Technique: CT abdomen and pelvis was obtained with intravenous contrast. CT was performed according to ALARA (As Low As Reasonably Achievable). Comparison: None. Findings: CT Abdomen: Lung bases are clear. Heart size is normal. Gallbladder is surgically absent. There is peripancreatic fat stranding. Within the pancreatic tail, there is a hypodense 4.8 x 4.2 cm structure. A small area of hypoattenuation in the pancreatic uncinate process measures approximately 1.7 cm. There is no pancreatic or biliary duct dilatation. Spleen is enlarged. Splenic vein is attenuated at its peripheral aspect, suggesting prior thrombosis. Multiple serpiginous enhancing structures in the upper abdomen likely represent varices. The adrenal glands are normal. Kidneys are symmetric in size, enhancement, and contrast excretion. There is no hydronephrosis or hydroureter. There is no free air or free fluid. There is no abdominal adenopathy. Stomach is unremarkable. There is duodenal mucosal fold thickening. Diverticulum is noted at the third portion of the duodenum. There is no evidence of bowel obstruction. Appendix is normal. There is moderate colonic diverticulosis. No focal peridiverticular inflammatory changes are seen. There is mild diffuse colonic wall thickening. There are degenerative changes of the spine. CT Pelvis: Pelvic small bowel loops are unremarkable. Urinary bladder is unremarkable. Prostate and seminal vesicles are not enlarged. There is trace pelvic free fluid. There is no pelvic adenopathy. Osseous structures are unremarkable. Impression Impression: 1. Peripancreatic inflammation, likely representing acute pancreatitis. 1.7 cm area of hypoattenuation in the pancreatic uncinate process may represent focal necrosis or developing pseudocyst. 2. 4.8 cm hypodense structure in the pancreatic tail may represent a pseudocyst. Cystic pancreatic neoplasm is not excluded. Given size greater than 3 cm, cyst aspiration is suggested, if clinically indicated. Otherwise, follow-up MRI of the pancreas and MRCP is suggested every 6 months for 2 years. 3. Duodenal mucosal fold thickening, which may represent reactive duodenitis. 4. Mild diffuse colonic wall thickening, consistent with colitis. 5. Moderate colonic diverticulosis without evidence of diverticulitis. 6. No free air. Trace pelvic free fluid. 7. 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 Result splenomegaly with varices demonstrated in the upper abdomen. RL: 2824 AFC: 60195 End of Report SSMENT/PLAN Alex Auguste is a 39 year old male with PMH as listed above, admitted to the hospital with: 1. Acute on chronic pancreatitis: -- NPO -- Continue IV fluid hydration -- check triglyceride at 8 pm Q 12 hrs, if levels less than 500 may stop insulin drip and start clears -- Nausea/pain control -- trend lipid panel -- Will resume Creon 2 tablets with meals when patient is able to resume a diet 2. Severe triglyceridemia 1330 -- Continue insulin drip, if triglyceride levels are less than 500 will stop insulin drip --Trend TG every 12 hours -- Resume gemfibrozil, omega-3 and start atorvastatin 3. Type II: slightly controlled -- Will order for ISS -- Will resume outpatient medications that are available in the [place] [facility] -- Holding metformin due to increased of lactic acidosis in hospitalized patients. 4. HLD: -- AM lipid panel 5. HTN: still controlled -- Metoprolol 25 mg twice a day #. Depression -- BuSpar 10 mg twice a day Prophylaxis: DVT- enoxaparin Stress Ulcer: no indication for prophylaxis Code Status: addressed: Disposition: home [place] TECHNICAL MARKETING ENGINEER was viewed during this stay JOSE ENRIQUE Minaya TORY ATTENDANT Associated attestation - Favio Moscoso MD - 06/27/2020 6:58 PM CSTI personally evaluated and examined the patient on 06/27/2020 and agree with the note as detailed bythe nurse practitioner. I actively participated in the decision- making process. In summary, patient was admitted for hypertriglyceridemia induced acute pancreatitis. On insulin gttper protocol. Rest of plan per below. Favio Moscoso M.D. 06/27/2020 6:58 PM Ellis Almeida MD - 06/26/2020 3:47 PM CSTHospitalist update: Noted to have severe triglyceridemia 1330 with ongoing epigastric pain. Will upgrade to IMU and start insulin drip. Trend TG q12h. Resume gemfibrozil, omega- 3. Start statin. Ellis Almeida MD Hal Valiente RN - 06/26/2020 10:48 AM CSTCare Management Social Functional Assessment Patient Name: Alex Auguste Age: [age] year old Sex: male Patient's Previous Admission Date at [facility]: 04/19/2015 Current diagnosis and co-morbidities: pancreatitis Readmission Questions: Was patient discharged from any acute care hospital within the last 30 days: No Social Functional Assessment: Primary language spoken/preferred: Ghanaian Mental Status: Alert & Oriented to Person,Place & Time Information given by: Self Patient's support system: Spouse Name and number of support system: Dominique Auguste spouse [phone] Primary Tire Bagger: Self MPOA: Same as support system Living Arrangement: Home Address of living arrangement : [address] [place] [address] Persons living in home: Same as support system Barriers to returning home: None Baseline functional status- ambulation: Independent Functional status-baseline personal care: Independent Baseline functional status- driving: Independent Baseline functional status- grocery shopping: Independent Functional status-baseline housekeeping: Independent Functional status-baseline meal prep: Independent Current functional status same as prior: Yes Do you have a PCP?: Yes Name of PCP: [facility] Agency: No Provider Services: No DME Company: No Equipment: None Hemodialysis: No Funding Resources: Commercial Prescription coverage plan: [facility] where meds are filled: ([facility]) Expected mode of discharge transportation: Same as support system Additional info required for discharge planning: Pending medical evaluation Recommended discharge plan: Home SFA Complete: Social Functional Assessment complete: Yes Alcohol Use Screening (AUDIT-C) How often do you have a drink containing alcohol?: Never SCORE: 0 Role of Care Management explained. Yes Any issues or concerns with obtaining/affording your medications at home: no. Are you or your support system able to order picker/assembler medications at discharge: yes. Describe: Hal Smiley RN, BSN [facility] ADC Senior Warehouse Clerk [phone] . TORY ATTENDANT documented in this encounter H&P Notes Laurence Jose MD - 06/26/2020 1:41 AM CST MEDICINE ADC ADMIT H&P Date of Service: 06/26/2020 CHIEF COMPLAINT: nausea, vomiting History of Present Illness 39 year-old male with pmh of HLD, HTN, pancreatitis, DM who presents to the ED secondary to nausea, vomiting for the past 2-3 days. Patient describes associated non-radiating epigastric abdominal pain with associated decreased oral intake and one episode of diarrhea. He denies any fever or chills. 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 Current Outpatient Medications on File Prior to Encounter Medication Sig Dispense Refill LOVAZA, [id number] ethyl esters, 1 gram capsule Take 3 capsules by mouth daily. 270 capsule 3 ondansetron (ZOFRAN ODT) 4 mg disintegrating tablet Take 1 tablet by mouth every 8 (eight) hoursas needed for Nausea and Vomiting (N/V). 10 tablet 0 Insulin [place], Disposable, (BD INSULIN PEN NEEDLE UF) 31 gauge x 5/16" Ndle QID, DX:E11.9 400 Each 3 insulin aspart (NOVOLOG FLEXPEN) 100 unit/mL injection Inject as instructed TID AC up to 80 units daily 24 mL 3 Insulin Glargine (LANTUS SOLOSTAR) 100 unit/mL (3 mL) injection inject 35 Units under the skin every morning. 11 mL 3 zolpidem (AMBIEN) 10 mg tablet TAKE ONE TABLET BY MOUTH ONCE DAILY AT BEDTIME 30 Tab 0 traMADOL (ULTRAM) 50 mg tablet Take 1 Tab by mouth every 6 (six) hours as needed for Pain (scale7-10). 30 Tab 1 Lancets (LANCETS,ULTRA THIN) Misc 400 Each 3 SOCIAL HISTORY Social History Socioeconomic History Marital status: Spouse name: Not on file Number of children: Not on file Years of education: Not on file Highest education level: Not on file Occupational History Not on file Social Needs Financial resource strain: Not on file Food insecurity Worry: Not on file Inability: Not on file Transportation needs Medical: Not on file Non-medical: Not on file Tobacco Use Smoking status: Never Smoker Smokeless tobacco: Current User Types: Snuff Substance and Sexual Activity Alcohol use: No Alcohol/week: 0.0 standard drinks Comment: occasional Drug use: Not on file Sexual activity: Yes Partners: Female Lifestyle Physical activity Days per week: Not on file Minutes per session: Not on file Stress: Not on file Relationships Social connections Talks on phone: Not on file Gets together: Not on file Attends taoism service: Not on file Active member of club or organization: Not on file Attends meetings of clubs or organizations: Not on file Relationship status: Not on file Intimate partner violence Fear of current or ex partner: Not on file Emotionally abused: Not on file Physically abused: Not on file Forced sexual activity: Not on file Other Topics Concern Not on file Social History Narrative Not on file Review of Systems Constitutional: Positive for appetite change. Negative for activity change, chills, diaphoresis, fatigue, fever and unexpected weight change. HENT: Negative. Eyes: Negative. Respiratory: Negative. Breasts: Negative. Cardiovascular: Negative. Gastrointestinal: Positive for abdominal pain, diarrhea, nausea and vomiting. Negative for abdominaldistention, anal bleeding, blood in stool, constipation and rectal pain. Genitourinary: Negative. Musculoskeletal: Negative. Skin: Negative. Neurological: Negative. Psychiatric/Behavioral: Negative. Endocrine: Endocrine negative PHYSICAL EXAMINATION Vitals: 06/25/20 2200 06/25/20 2300 06/26/20 0000 06/26/20 0100 BP: (!) 145/107 (!) 148/102 (!) 144/101 127/85 Pulse: 86 94 92 84 Resp: Temp: TempSrc: SpO2: 94% 99% 98% 95% Weight: Height: Physical Exam Constitutional: He is oriented to person, place, and time. He appears well- developed and well-nourished. No distress. HENT: Head: Normocephalic and atraumatic. Right Ear: External ear normal. Left Ear: External ear normal. Eyes: Pupils are equal, round, and reactive to light. Conjunctivae and EOM are normal. Right eye exhibits no discharge. Left eye exhibits no discharge. No scleral icterus. Neck: Normal range of motion. Cardiovascular: Normal rate and regular rhythm. Pulmonary/Chest: Effort normal. No respiratory distress. He exhibits no tenderness. Abdominal: Soft. There is abdominal tenderness (epigastric/LUQ). There is no rebound and no guarding. Musculoskeletal: Normal range of motion. General: No edema. Comments: Inspection and palpation of the knee and ankles bilaterally reveal no abnormality. Neurological: He is alert and oriented to person, place, and time. Skin: Skin is warm and dry. No rash noted. No erythema. No pallor. Psychiatric: He has a normal mood and affect. His behavior is normal. Judgment and thought content normal. LABS - reviewed pertinent labs as below: Reviewed IMAGING - reviewed, pertinent results as below: Exam: CT Abdomen and Pelvis With Contrast, 06/25/2020 9:45 PM. Ordering Physician: KOFI BEEBE. History: Acute, generalized abdominal pain. Technique: CT abdomen and pelvis was obtained with intravenous contrast. CT was performed according to ALARA (As Low As Reasonably Achievable). Comparison: None. Findings: CT Abdomen: Lung bases are clear. Heart size is normal. Gallbladder is surgically absent. There is peripancreatic fat stranding. Within the pancreatic tail, there is a hypodense 4.8 x 4.2 cm structure. A small area of hypoattenuation in the pancreatic uncinate process measures approximately 1.7 cm. There is no pancreatic or biliary duct dilatation. Spleen is enlarged. Splenic vein is attenuated at its peripheral aspect, suggesting prior thrombosis. Multiple serpiginous enhancing structures in the upper abdomen likely represent varices. The adrenal glands are normal. Kidneys are symmetric in size, enhancement, and contrast excretion. There is no hydronephrosis or hydroureter. There is no free air or free fluid. There is no abdominal adenopathy. Stomach is unremarkable. There is duodenal mucosal fold thickening. Diverticulum is noted at the third portion of the duodenum. There is no evidence of bowel obstruction. Appendix is normal. There is moderate colonic diverticulosis. No focal peridiverticular inflammatory changes are seen. There is mild diffuse colonic wall thickening. There are degenerative changes of the spine. CT Pelvis: Pelvic small bowel loops are unremarkable. Urinary bladder is unremarkable. Prostate and seminal vesicles are not enlarged. There is trace pelvic free fluid. There is no pelvic adenopathy. Osseous structures are unremarkable. IMPRESSION Impression: 1. Peripancreatic inflammation, likely representing acute pancreatitis. 1.7 cm area of hypoattenuation in the pancreatic uncinate process may represent focal necrosis or developing pseudocyst. 2. 4.8 cm hypodense structure in the pancreatic tail may represent a pseudocyst. Cystic pancreatic neoplasm is not excluded. Given size greater than 3 cm, cyst aspiration is suggested, if clinically indicated. Otherwise, follow-up MRI of the pancreas and MRCP is suggested every 6 months for 2 years. 3. Duodenal mucosal fold thickening, which may represent reactive duodenitis. 4. Mild diffuse colonic wall thickening, consistent with colitis. 5. Moderate colonic diverticulosis without evidence of diverticulitis. 6. No free air. Trace pelvic free fluid. 7. 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 Result splenomegaly with varices demonstrated in the upper abdomen. ASSESSMENT/PLAN Alex Amadeo Molina is a 39 year old male with PMH as listed above, admitted to the hospital with: 1. Acute on chronic pancreatitis: -- NPO -- IV fluid hydration -- Nausea/pain control -- AM lipid panel 2. Colitis, mild: no evidence of leukocytosis or fever. Symptoms resolved. -- Holding antibiotic for now. 3. Type II: slightly controlled -- Will order for ISS -- Will resume outpatient medications that are available in the [facility] -- Holding metformin due to increased of lactic acidosis in hospitalized patients. 4. HLD: -- AM lipid panel 5. HTN: still controlled -- Will continue with outpatient antihypertensive agent Prophylaxis: DVT- enoxaparin Code Status: addressed: FC documented in this encounter ED Notes Darlene Savage RN - 06/25/2020 8:37 PM CSTSummary: Triage CC: vomiting for the last 2 days, mid upper abdominal pain "like when I had pancreatitis" PMHx: See list PSH: see list MEDS: see list Tetanus: UTD Awake, alert, oriented, resp reg unlabored, skin warm, color appropriate for race, moves all ext without difficulty, amb with out assitance Appears in no distress Kofi Jerome MD - 06/25/2020 8:33 PM CST [facility] Emergency Department Note Patient Name: Alex Auguste Date of : 1980 39 year old male Treatment Room: TX3/TX3 Primary Care Physician: Gino Lira Jr Patient Escorted by: Self [9] Mode of Arrival: Personal means [1] EMS Treatment Prior to ED Arrival: RAILROAD FIRER treatment: None Travel and Exposure Screening: Symptoms Does patient have any of these symptoms?: (not recorded) Exposure Screening Has patient had contact with someone with a communicable disease in the last month?: (not recorded) Diseases exposed to:: (not recorded) Is Patient ?: (not recorded) Exposure Date: (not recorded) Chief Complaint: Chief Complaint Patient presents with Abdominal Pain History of Present Illness: Alex Auguste is a 39 year old male with history of chronic pancreatitis who presented to the ED for evaluation of diffuse upper abdominal pain associated with N/V X 2 days. No fever or chills. No known aggravating or relieving factors. Has had similar type pain in the past that was consistent withhis acute exacerbation of pancreatitis. Denies any constipation or diarrhea Abdominal Pain Pain location: Epigastric, LUQ and RUQ Pain quality: sharp Pain radiates to: Does not radiate Pain severity: Severe Onset quality: Gradual Duration: 2 days Timing: Constant Progression: Waxing and waning Chronicity: Recurrent Context: not alcohol use, not awakening from sleep, not diet changes, not eating, not laxative use, not medication withdrawal, not previous surgeries, not recent illness, not recent sexual activity, not recent travel, not retching, not sick contacts, not suspicious food intake and not trauma Relieved by: Nothing Worsened by: Nothing Ineffective treatments: None tried Associated symptoms: nausea Associated symptoms: no anorexia, no belching, no chest pain, no chills, no constipation, no cough, no diarrhea, no dysuria, no fatigue, no fever, no flatus, no hematemesis, no hematochezia, no hematuria, no melena, no shortness of breath, no sore throat and no vomiting Risk factors: no alcohol abuse, not elderly, has not had multiple surgeries and no recent hospitalization Past Medical History/Immunizations: Past Medical History: Diagnosis Date HLD (hyperlipidemia) HTN (hypertension) Hypertriglyceridemia Pancreatitis 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 Smokeless Tobacco: Current user of smokeless tobacco; Types: Snuff. Alcohol Use No. Comments: occasional Sexual Activity Sexually active; Partners: Female. Past Surgical History: Past Surgical History: Procedure Laterality Date CHOLECYSTECTOMY Review of Systems: Review of Systems Constitutional: Negative. Negative for chills, fatigue and fever. HENT: Negative. Negative for sore throat. Eyes: Negative. Respiratory: Negative. Negative for cough and shortness of breath. Breasts: Negative. Cardiovascular: Negative. Negative for chest pain. Gastrointestinal: Positive for abdominal pain and nausea. Negative for anorexia, constipation, diarrhea, flatus, hematemesis, hematochezia, melena and vomiting. Genitourinary: Negative. Negative for dysuria and hematuria. Musculoskeletal: Negative. Skin: Negative. Neurological: Negative. Psychiatric/Behavioral: Negative. Endocrine: Endocrine negative Physical Exam: ED Triage Vitals [06/25/202039] Weight 86.2 kg (190 lb) Actual or estimated Estimated by patient/family report Height 1.778 m (5' 10") BP (!) 122/106 Pulse 91 Resp 18 Temp 37 C (98.6 F) Temp source Oral SpO2 100 % Measured on Room air Physical Exam Vitals signs and nursing note reviewed. Constitutional: General: He is not in acute distress. Appearance: Normal appearance. He is well-developed and normal weight. He is not ill-appearing, toxic-appearing or diaphoretic. HENT: Head: Normocephalic and atraumatic. Mouth/Throat: Mouth: Mucous membranes are moist. Pharynx: Oropharynx is clear. No oropharyngeal exudate or posterior oropharyngeal erythema. Eyes: General: No scleral icterus. Right eye: No discharge. Left eye: No discharge. Conjunctiva/sclera: Conjunctivae normal. Pupils: Pupils are equal, round, and reactive to light. Neck: Musculoskeletal: Normal range of motion and neck supple. No neck rigidity or muscular tenderness. Cardiovascular: Rate and Rhythm: Normal rate and regular rhythm. Pulses: Normal pulses. Heart sounds: Normal heart sounds. No murmur. Pulmonary: Effort: Pulmonary effort is normal. No respiratory distress. Breath sounds: Normal breath sounds. No stridor. No wheezing, rhonchi or rales. Chest: Chest wall: No tenderness. Abdominal: General: Bowel sounds are normal. There is no distension. Palpations: Abdomen is soft. There is no mass. Tenderness: There is no abdominal tenderness. There is no right CVA tenderness, left CVA tenderness, guarding or rebound. Hernia: No hernia is present. Musculoskeletal: Normal range of motion. General: No swelling, tenderness, deformity or signs of injury. Right lower leg: No edema. Left lower leg: No edema. Skin: General: Skin is warm and dry. Capillary Refill: Capillary refill takes less than 2 seconds. Coloration: Skin is not jaundiced or pale. Findings: No bruising, erythema, lesion or rash. Neurological: General: No focal deficit present. Mental Status: He is alert and oriented to person, place, and time. Cranial Nerves: No cranial nerve deficit. Sensory: No sensory deficit. Motor: No weakness. Coordination: Coordination normal. Gait: Gait normal. Deep Tendon Reflexes: Reflexes normal. Psychiatric: Behavior: Behavior normal. Thought Content: Thought content normal. Judgment: Judgment normal. Radiology: Hospital Encounter on 06/25/20 CT ABDOMEN PELVIS W CONTRAST Narrative Exam: CT Abdomen and Pelvis With Contrast, 06/25/2020 9:45 PM. Ordering Physician: KOFI BEEBE. History: Acute, generalized abdominal pain. Technique: CT abdomen and pelvis was obtained with intravenous contrast. CT was performed according to ALARA (As Low As Reasonably Achievable). Comparison: None. Findings: CT Abdomen: Lung bases are clear. Heart size is normal. Gallbladder is surgically absent. There is peripancreatic fat stranding. Within the pancreatic tail, there is a hypodense 4.8 x 4.2 cm structure. A small area of hypoattenuation in the pancreatic uncinate process measures approximately 1.7 cm. There is no pancreatic or biliary duct dilatation. Spleen is enlarged. Splenic vein is attenuated at its peripheral aspect, suggesting prior thrombosis. Multiple serpiginous enhancing structures in the upper abdomen likely represent varices. The adrenal glands are normal. Kidneys are symmetric in size, enhancement, and contrast excretion. There is no hydronephrosis or hydroureter. There is no free air or free fluid. There is no abdominal adenopathy. Stomach is unremarkable. There is duodenal mucosal fold thickening. Diverticulum is noted at the third portion of the duodenum. There is no evidence of bowel obstruction. Appendix is normal. There is moderate colonic diverticulosis. No focal peridiverticular inflammatory changes are seen. There is mild diffuse colonic wall thickening. There are degenerative changes of the spine. CT Pelvis: Pelvic small bowel loops are unremarkable. Urinary bladder is unremarkable. Prostate and seminal vesicles are not enlarged. There is trace pelvic free fluid. There is no pelvic adenopathy. Osseous structures are unremarkable. Impression Impression: 1. Peripancreatic inflammation, likely representing acute pancreatitis. 1.7 cm area of hypoattenuation in the pancreatic uncinate process may represent focal necrosis or developing pseudocyst. 2. 4.8 cm hypodense structure in the pancreatic tail may represent a pseudocyst. Cystic pancreatic neoplasm is not excluded. Given size greater than 3 cm, cyst aspiration is suggested, if clinically indicated. Otherwise, follow-up MRI of the pancreas and MRCP is suggested every 6 months for 2 years. 3. Duodenal mucosal fold thickening, which may represent reactive duodenitis. 4. Mild diffuse colonic wall thickening, consistent with colitis. 5. Moderate colonic diverticulosis without evidence of diverticulitis. 6. No free air. Trace pelvic free fluid. 7. 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 Result splenomegaly with varices demonstrated in the upper abdomen. RL: 2824 AFC: 18025 End of Report Lab Results (24h): Recent Results (from the past 24 hour(s)) POCT GLUCOSE (AUTOMATED) Collection Time: 06/25/20 8:44 PM Result Value Ref Range POCT GLU 248 (H) 70 - 110 mg/dL CBC WITH DIFF Collection Time: 06/25/20 8:54 PM Result Value Ref Range WBC 6.31 4.20 - 10.70 10*3/L RBC 5.25 4.26 - 5.52 10*6/L HGB 15.7 12.2 - 16.4 g/dL HCT 42.9 38.4 - 49.3 % MCV 81.7 81.7 - 95.6 fL MCH 29.9 26.1 - 32.7 pg MCHC 36.6 (H) 31.2 - 35.0 g/dL RDW-SD 35.3 (L) 38.5 - 51.6 fL RDW-CV 11.9 (L) 12.1 - 15.4 % PLT 149 (L) 150 - 328 10*3/L MPV 9.3 (L) 9.8 - 13.0 fL NRBC/100 WBC 0.0 0.0 - 10.0 /100 WBCs NRBC x10^3 <0.01 10*3/L GRAN MAT (NEUT) % 74.6 % IMM GRAN % 0.30 % LYMPH % 18.7 % MONO % 4.8 % EOS % 1.1 % BASO % 0.5 % GRAN MAT x10^3(ANC) 4.71 1.99 - 6.95 10*3/uL IMM GRAN x10^3 <0.03 0.00 - 0.06 10*3/uL LYMPH x10^3 1.18 1.09 - 3.23 10*3/uL MONO x10^3 0.30 (L) 0.36 - 1.02 10*3/uL EOS x10^3 0.07 0.06 - 0.53 10*3/uL BASO x10^3 0.03 0.01 - 0.09 10*3/uL COMP. METABOLIC PANEL (93040) Collection Time: 06/25/20 8:54 PM Result Value Ref Range NA 136 135 - 145 mmol/L K 4.3 3.5 - 5.0 mmol/L CL 97 (L) 98 - 108 mmol/L CO2 TOTAL 31 23 - 31 mmol/L AGAP 8 2 - 16 BUN 7 7 - 23 mg/dL GLUCOSE 220 (H) 70 - 110 mg/dL CREATININE 0.68 0.60 - 1.25 mg/dL TOTAL BILI 1.6 (H) 0.1 - 1.1 mg/dL CALCIUM 9.4 8.6 - 10.6 mg/dL T PROTEIN 7.6 6.3 - 8.2 g/dL ALBUMIN 4.4 3.5 - 5.0 g/dL ALK PHOS 103 34 - 122 U/L ALTv 113 (H) 5 - 50 U/L AST(SGOT) 87 (H) 13 - 40 U/L eGFR Calculation (Non-) 129.2 mL/min/1.73m2 eGFR Calculation () 156.5 mL/min/1.73m2 LIPASE Collection Time: 06/25/20 8:54 PM Result Value Ref Range LIPASE 57 0 - 220 U/L COVID-19 (ID NOW RAPID TESTING) Collection Time: 06/25/20 9:12 PM Specimen: NASOPHARYNGEAL SWAB Result Value Ref Range SARS-CoV-2 Rapid ID NOW Not Detected Not Detected Orders and Treatments: Orders Placed This Encounter Procedures CT ABDOMEN PELVIS W CONTRAST POCT GLUCOSE (AUTOMATED) CBC WITH DIFF COMP. METABOLIC PANEL (47142) LIPASE COVID-19 (ID NOW RAPID TESTING) LAB ONLY COVID INTERPRETATION Orders Placed This Encounter Medications FENTanyl PF (SUBLIMAZE (PF)) injection 75 mcg ondansetron (ZOFRAN (PF)) injection 4 mg NaCl 0.9% (NS) IV infusion 1,000 mL FENTanyl PF (SUBLIMAZE (PF)) injection 100 mcg DISCONTD: proMETHazine (PHENERGAN) 25 mg in NaCl 0.9% (NS) 50 mL piggyback proMETHazine (PHENERGAN) 25 mg in NaCl 0.9% (NS) 50 mL piggyback iohexol (OMNIPAQUE 350 BULK-150 mL) injection 120 mL FENTanyl PF (SUBLIMAZE (PF)) injection 100 mcg proMETHazine (PHENERGAN) 25 mg in NaCl 0.9% (NS) 50 mL piggyback ED COURSE MDM: Scoring Tools: No data recorded Diagnosis/Impression: ICD-10-CM ICD-9-CM 1. Acute on chronic pancreatitis K85.90 577.0 K86.1 577.1 2. Generalized abdominal pain R10.84 789.07 Disposition/Condition: ED Disposition ED Disposition Condition Comment Admit - Inpatient Stable Is this patient COVID positive or a patient under investigation (PUI)?: No Treatment Team: [facility] [[id number]] Primary reason for admission: Acute on chronic pancreatitis [[id number]] Is (or was) this a planned re-admission?: No My concerns are:: dehyd ration My concerns are:: electrolyte imbalance My concerns are:: lab monitoring My concerns are:: pain management My concerns are:: need for IV therapies The risks to the patient are: morbidity or mortality in the short term The risks to the pa tient are: high risk of medical event Expected length of stay: At least 2 midnights Expected discharge disposition: Home Self Care Certification: I certify the inpatient services are medically necessary and in accordance with Medicare regulations. Discharge Medications: Patient's Medications START taking these medications No medications on file CONTINUE taking these medications which have NOT CHANGED INSULIN ASPART (NOVOLOG FLEXPEN) 100 UNIT/ML INJECTION Inject as instructed TID AC up to 80 units daily INSULIN GLARGINE (LANTUS SOLOSTAR) 100 UNIT/ML (3 ML) INJECTION inject 35 Units under the skin every morning. INSULIN NEEDLES, DISPOSABLE, (BD INSULIN PEN NEEDLE UF) 31 GAUGE X 5/16" NDLE QID, DX:E11.9 LANCETS (LANCETS,ULTRA THIN) MISC LOVAZA, [id number] ETHYL ESTERS, 1 GRAM CAPSULE Take 3 capsules by mouth daily. ONDANSETRON (ZOFRAN ODT) 4 MG DISINTEGRATING TABLET Take 1 tablet by mouth every 8 (eight) hoursas needed for Nausea and Vomiting (N/V). TRAMADOL (ULTRAM) 50 MG TABLET Take 1 Tab by mouth every 6 (six) hours as needed for Pain (scale7-10). ZOLPIDEM (AMBIEN) 10 MG TABLET TAKE ONE TABLET BY MOUTH ONCE DAILY AT BEDTIME START taking Modified Medications as Prescribed No medications on file STOP taking these medications No medications on file Follow-up: Electronically signed by: Kofi Beebe MD 06/26/2020 12:43 AM TORY ATTENDANT documented in this encounter Miscellaneous Notes Care Plan - Domenica Ny RN - 06/29/2020 7:22 PM LAVATORY ATTENDANT Problem: Pain Goal: Control of pain at or below patient's documented comfort goal Outcome: Progressing as expected Goal: Reduction in pain sensation Outcome: Progressing as expected Problem: Discharge Planning Goal: Absence of venous thromboembolism Outcome: Progressing as expected Goal: Adequate for discharge Outcome: Progressing as expected Goal: Effective communication Outcome: Progressing as expected Problem: Fluid Volume - Imbalanced Goal: Absence of imbalanced fluid volume signs and symptoms Outcome: Progressing as expected Problem: Falls, Risk of Goal: Absence of falls Outcome: Progressing as expected Problem: Suicide, Risk of Goal: Absence of self-harm Outcome: Progressing as expected are Plan - Ivon Celeste RN - 06/29/2020 3:57 AM LAVATORY ATTENDANT Problem: Pain Goal: Control of pain at or below patient's documented comfort goal Outcome: Progressing as expected Goal: Reduction in pain sensation Outcome: Progressing as expected Problem: Discharge Planning Goal: Absence of venous thromboembolism Outcome: Progressing as expected Goal: Adequate for discharge Outcome: Progressing as expected Goal: Effective communication Outcome: Progressing as expected Problem: Fluid Volume - Imbalanced Goal: Absence of imbalanced fluid volume signs and symptoms Outcome: Progressing as expected Problem: Falls, Risk of Goal: Absence of falls Outcome: Progressing as expected Problem: Suicide, Risk of Goal: Absence of self-harm Outcome: Progressing as expected Problem: Pain Goal: Control of pain at or below patient's documented comfort goal Outcome: Progressing as expected Goal: Reduction in pain sensation Outcome: Progressing as expected Problem: Discharge Planning Goal: Absence of venous thromboembolism Outcome: Progressing as expected Goal: Adequate for discharge Outcome: Progressing as expected Goal: Effective communication Outcome: Progressing as expected Problem: Fluid Volume - Imbalanced Goal: Absence of imbalanced fluid volume signs and symptoms Outcome: Progressing as expected Problem: Falls, Risk of Goal: Absence of falls Outcome: Progressing as expected Problem: Suicide, Risk of Goal: Absence of self-harm Outcome: Progressing as expected are Plan - Danielle Barraza RN - 06/28/2020 6:52 PM LAVATORY ATTENDANT Problem: Pain Goal: Control of pain at or below patient's documented comfort goal Outcome: Progressing as expected Goal: Reduction in pain sensation Outcome: Progressing as expected Problem: Discharge Planning Goal: Absence of venous thromboembolism Outcome: Progressing as expected Goal: Adequate for discharge Outcome: Progressing as expected Goal: Effective communication Outcome: Progressing as expected Problem: Fluid Volume - Imbalanced Goal: Absence of imbalanced fluid volume signs and symptoms Outcome: Progressing as expected Problem: Falls, Risk of Goal: Absence of falls Outcome: Progressing as expected are [place] - Ivon Celeste RN - 06/27/2020 10:13 PM LAVATORY ATTENDANT Problem: Pain Goal: Control of pain at or below patient's documented comfort goal Outcome: Progressing as expected Goal: Reduction in pain sensation Outcome: Progressing as expected Problem: Discharge Planning Goal: Absence of venous thromboembolism Outcome: Progressing as expected Goal: Adequate for discharge Outcome: Progressing as expected Goal: Effective communication Outcome: Progressing as expected Problem: Fluid Volume - Imbalanced Goal: Absence of imbalanced fluid volume signs and symptoms Outcome: Progressing as expected Problem: Falls, Risk of Goal: Absence of falls Outcome: Progressing as expected are Plan - Ngoc Murphy RN - 06/27/2020 12:28 AM LAVATORY ATTENDANT Problem: Pain Goal: Control of pain at or below patient's documented comfort goal Outcome: Progressing as expected Goal: Reduction in pain sensation Outcome: Progressing as expected Problem: Discharge Planning Goal: Absence of venous thromboembolism Outcome: Progressing as expected Goal: Adequate for discharge Outcome: Progressing as expected Goal: Effective communication Outcome: Progressing as expected Problem: Fluid Volume - Imbalanced Goal: Absence of imbalanced fluid volume signs and symptoms Outcome: Progressing as expected Problem: Falls, Risk of Goal: Absence of falls Outcome: Progressing as expected are Plan - Bessy Jean-Baptiste RN - 06/26/2020 6:55 PM LAVATORY ATTENDANT Problem: Pain Goal: Control of pain at or below patient's documented comfort goal Outcome: Progressing as expected Goal: Reduction in pain sensation Outcome: Progressing as expected Problem: Discharge Planning Goal: Absence of venous thromboembolism Outcome: Progressing as expected Goal: Adequate for discharge Outcome: Progressing as expected Goal: Effective communication Outcome: Progressing as expected Problem: Fluid Volume - Imbalanced Goal: Absence of imbalanced fluid volume signs and symptoms Outcome: Progressing as expected Problem: Falls, Risk of Goal: Absence of falls Outcome: Progressing as expected are Plan - Ngoc Murphy RN - 06/26/2020 3:18 AM LAVATORY ATTENDANT Problem: Pain Goal: Control of pain at or below patient's documented comfort goal Outcome: Progressing as expected Goal: Reduction in pain sensation Outcome: Progressing as expected Problem: Discharge Planning Goal: Absence of venous thromboembolism Outcome: Progressing as expected Goal: Adequate for discharge Outcome: Progressing as expected Goal: Effective communication Outcome: Progressing as expected Problem: Fluid Volume - Imbalanced Goal: Absence of imbalanced fluid volume signs and symptoms Outcome: Progressing as expected Problem: Falls, Risk of Goal: Absence of falls Outcome: Progressing as expected TORY ATTENDANT documented in this encounter Plan of Treatment Name Type Priority Associated Diagnoses Date/Ti me URINE DRUG (LCMSMS) - LAB STAT 2019 9:10 PM BENZODIAZEPINES PANEL LAVATORY ATTENDANT URINE DRUG (LCMSMS) - LAB STAT 2019 9:10 PM SYNTHETIC OPIATES PANEL LAVATORY ATTENDANT URINE DRUG (LCMSMS) - LAB STAT 2019 9:10 PM OPIATES PANEL LAVATORY ATTENDANT Name Type Priority Associated Diagnoses Order S chedule CBC with Differential LAB Routine EVERY MORNING AT 0400 for 5 Occurrenc es starting 2019 until 0, 3 completed Basic Metabolic Panel (NA, LAB Routine E VERY MORNING AT 0400 K, CL, CO2, GLUCOSE, BUN, fo r 5 Occurrences CREATININE, CA) starting until 0, 3 completed POCT GLUCOSE(AGE >30DAYS) LAB Routine EV MATTHEW HOUR (START TIME ADJUSTABLE) for 12 Hours starting 06/26/2020 unti l 06/26/2020 POCT GLUCOSE(AGE >30DAYS) LAB Routine EV MATTHEW HOUR (START TIME ADJUSTABLE) for 12 Hours starting 06/27/2020 unti l 06/27/2020 URINE DRUG (LCMSMS) - LAB Routine ONCE f or 1 Occurrences COMPREHENSIVE DRUG PANEL sta rting 06/28/2020 until 0 URINE DRUG (LCMSMS) - LAB Routine ONCE f or 1 Occurrences BENZODIAZEPINES PANEL starti ng 06/28/2020 until 0, 1 completed URINE DRUG (LCMSMS) - LAB Routine ONCE f or 1 Occurrences SYNTHETIC OPIATES PANEL star ting 06/28/2020 until 0, 1 completed URINE DRUG (LCMSMS) - LAB Routine ONCE f or 1 Occurrences OPIATES PANEL starting 06/28 until 0, 1 completed Health Maintenance Due Date Last Done Comments EYE EXAM 1989 URINE MICROALBUMIN 1989 Depression Screening 1991 DTaP,Tdap,and Td Vaccines 1998 (1 - Tdap) FOOT EXAM 04/05/2018 04/05/2017, 04/05/2017, 12/29/2016, Additional history exists INFLUENZA VACCINE (#1) 2020 HgA1C 12/25/2020 06/26/2020, 04/05/2017, 04/19/2015, Additional history exists LDL-C 06/26/2021 06/26/2020, 07/25/2012, 04/04/2012, Additional history exists CREATININE (SERUM) 06/28/2021 06/28/2020, 06/27/2020, 06/25/2020, Additional history exists PNEUMOCOCCAL 0-64 YEARS Aged Out No longe r eligible COMBINED SERIES based on patient 's age to complete this topic documented as of this encounter Procedures Procedure Name Priority Date/Time Associated Comments Diagnosis POCT GLUCOSE Routine 06/29/2020 5:35 Results for this (AUTOMATED) PM LAVATORY ATTENDANT procedure are i n the results section. POCT GLUCOSE Routine 06/29/2020 12:04 Results for this (AUTOMATED) PM LAVATORY ATTENDANT procedure are i n the results section. POCT GLUCOSE Routine 06/29/2020 7:54 Results for this (AUTOMATED) AM LAVATORY ATTENDANT procedure are i n the results section. CBC WITH DIFF Routine 06/29/2020 5:20 Results fo r this AM LAVATORY ATTENDANT procedure are i n the results section. BASIC METABOLIC PANEL Routine 06/29/2020 5:20 Re sults for this (NA, K, CL, CO2, AM LAVATORY ATTENDANT procedure a re in GLUCOSE, BUN, the results CREATININE, CA) section. TRIGLYCERIDES Routine 06/29/2020 5:20 Results fo r this AM LAVATORY ATTENDANT procedure are i n the results section. ADC / LCC - DRUG SCREEN Routine 06/28/2020 9:10 Results for this TRIAGE PM LAVATORY ATTENDANT procedure are i n the results section. POCT GLUCOSE Routine 06/28/2020 4:46 Results for this (AUTOMATED) PM LAVATORY ATTENDANT procedure are i n the results section. POCT GLUCOSE Routine 06/28/2020 12:53 Results for this (AUTOMATED) PM LAVATORY ATTENDANT procedure are i n the results section. POCT GLUCOSE Routine 06/28/2020 12:01 Results for this (AUTOMATED) PM LAVATORY ATTENDANT procedure are i n the results section. POCT GLUCOSE Routine 06/28/2020 7:27 Results for this (AUTOMATED) AM LAVATORY ATTENDANT procedure are i n the results section. POCT GLUCOSE Routine 06/28/2020 5:48 Results for this (AUTOMATED) AM LAVATORY ATTENDANT procedure are i n the results section. CBC WITH DIFF Routine 06/28/2020 4:27 Results fo r this AM LAVATORY ATTENDANT procedure are i n the results section. ETHANOL Add-on 06/28/2020 4:27 Results for this AM LAVATORY ATTENDANT procedure are i n the results section. BASIC METABOLIC PANEL Routine 06/28/2020 4:27 Re sults for this (NA, K, CL, CO2, AM LAVATORY ATTENDANT procedure a re in GLUCOSE, BUN, the results CREATININE, CA) section. MAGNESIUM Add-on 06/28/2020 4:27 Results for this AM LAVATORY ATTENDANT procedure are i n the results section. LIPASE Routine 06/28/2020 4:27 Results for this AM LAVATORY ATTENDANT procedure are i n the results section. TRIGLYCERIDES Routine 06/28/2020 4:27 Results fo r this AM LAVATORY ATTENDANT procedure are i n the results section. POCT GLUCOSE Routine 06/28/2020 4:10 Results for this (AUTOMATED) AM LAVATORY ATTENDANT procedure are i n the results section. POCT GLUCOSE Routine 06/28/2020 1:00 Results for this (AUTOMATED) AM LAVATORY ATTENDANT procedure are i n the results section. POCT GLUCOSE Routine 06/27/2020 11:48 Results for this (AUTOMATED) PM LAVATORY ATTENDANT procedure are i n the results section. POCT GLUCOSE Routine 06/27/2020 10:45 Results for this (AUTOMATED) PM LAVATORY ATTENDANT procedure are i n the results section. POCT GLUCOSE Routine 06/27/2020 9:40 Results for this (AUTOMATED) PM LAVATORY ATTENDANT procedure are i n the results section. POCT GLUCOSE Routine 06/27/2020 8:43 Results for this (AUTOMATED) PM LAVATORY ATTENDANT procedure are i n the results section. POCT GLUCOSE Routine 06/27/2020 7:39 Results for this (AUTOMATED) PM LAVATORY ATTENDANT procedure are i n the results section. POCT GLUCOSE Routine 06/27/2020 5:10 Results for this (AUTOMATED) PM LAVATORY ATTENDANT procedure are i n the results section. TRIGLYCERIDES Routine 06/27/2020 5:08 Results fo r this PM LAVATORY ATTENDANT procedure are i n the results section. POCT GLUCOSE Routine 06/27/2020 3:29 Results for this (AUTOMATED) PM LAVATORY ATTENDANT procedure are i n the results section. POCT GLUCOSE Routine 06/27/2020 1:54 Results for this (AUTOMATED) PM LAVATORY ATTENDANT procedure are i n the results section. POCT GLUCOSE Routine 06/27/2020 12:59 Results for this (AUTOMATED) PM LAVATORY ATTENDANT procedure are i n the results section. POCT GLUCOSE Routine 06/27/2020 11:42 Results for this (AUTOMATED) AM LAVATORY ATTENDANT procedure are i n the results section. POCT GLUCOSE Routine 06/27/2020 10:50 Results for this (AUTOMATED) AM LAVATORY ATTENDANT procedure are i n the results section. POCT GLUCOSE Routine 06/27/2020 8:43 Results for this (AUTOMATED) AM LAVATORY ATTENDANT procedure are i n the results section. POCT GLUCOSE Routine 06/27/2020 7:19 Results for this (AUTOMATED) AM LAVATORY ATTENDANT procedure are i n the results section. POCT GLUCOSE Routine 06/27/2020 6:18 Results for this (AUTOMATED) AM LAVATORY ATTENDANT procedure are i n the results section. CBC WITH DIFF Routine 06/27/2020 4:20 Results fo r this AM LAVATORY ATTENDANT procedure are i n the results section. BASIC METABOLIC PANEL Routine 06/27/2020 4:20 Re sults for this (NA, K, CL, CO2, AM LAVATORY ATTENDANT procedure a re in GLUCOSE, BUN, the results CREATININE, CA) section. LIPASE Routine 06/27/2020 4:20 Results for this AM LAVATORY ATTENDANT procedure are i n the results section. TRIGLYCERIDES Routine 06/27/2020 4:20 Results fo r this AM LAVATORY ATTENDANT procedure are i n the results section. POCT GLUCOSE Routine 06/27/2020 4:06 Results for this (AUTOMATED) AM LAVATORY ATTENDANT procedure are i n the results section. POCT GLUCOSE Routine 06/27/2020 3:06 Results for this (AUTOMATED) AM LAVATORY ATTENDANT procedure are i n the results section. POCT GLUCOSE Routine 06/27/2020 2:07 Results for this (AUTOMATED) AM LAVATORY ATTENDANT procedure are i n the results section. POCT GLUCOSE Routine 06/27/2020 1:09 Results for this (AUTOMATED) AM LAVATORY ATTENDANT procedure are i n the results section. POCT GLUCOSE Routine 06/27/2020 12:02 Results for this (AUTOMATED) AM LAVATORY ATTENDANT procedure are i n the results section. POCT GLUCOSE Routine 06/26/2020 10:52 Results for this (AUTOMATED) PM LAVATORY ATTENDANT procedure are i n the results section. POCT GLUCOSE Routine 06/26/2020 10:02 Results for this (AUTOMATED) PM LAVATORY ATTENDANT procedure are i n the results section. POCT GLUCOSE Routine 06/26/2020 9:28 Results for this (AUTOMATED) PM LAVATORY ATTENDANT procedure are i n the results section. POCT GLUCOSE Routine 06/26/2020 9:02 Results for this (AUTOMATED) PM LAVATORY ATTENDANT procedure are i n the results section. POCT GLUCOSE Routine 06/26/2020 8:01 Results for this (AUTOMATED) PM LAVATORY ATTENDANT procedure are i n the results section. POCT GLUCOSE Routine 06/26/2020 7:15 Results for this (AUTOMATED) PM LAVATORY ATTENDANT procedure are i n the results section. POCT GLUCOSE Routine 06/26/2020 6:07 Results for this (AUTOMATED) PM LAVATORY ATTENDANT procedure are i n the results section. POCT GLUCOSE Routine 06/26/2020 4:46 Results for this (AUTOMATED) PM LAVATORY ATTENDANT procedure are i n the results section. TRIGLYCERIDES Routine 06/26/2020 4:07 Results fo r this PM LAVATORY ATTENDANT procedure are i n the results section. POCT GLUCOSE Routine 06/26/2020 3:45 Results for this (AUTOMATED) PM LAVATORY ATTENDANT procedure are i n the results section. POCT GLUCOSE Routine 06/26/2020 2:38 Results for this (AUTOMATED) PM LAVATORY ATTENDANT procedure are i n the results section. POCT GLUCOSE Routine 06/26/2020 12:13 Results for this (AUTOMATED) PM LAVATORY ATTENDANT procedure are i n the results section. POCT GLUCOSE Routine 06/26/2020 11:03 Results for this (AUTOMATED) AM LAVATORY ATTENDANT procedure are i n the results section. LOW-DENSITY Routine 06/26/2020 5:15 Results for this LIPOPROTEIN, DIRECT AM LAVATORY ATTENDANT procedur e are in the results section. GLYCOSYLATED HEMOGLOBIN Routine 06/26/2020 5:15 Results for this (A1C) AM LAVATORY ATTENDANT procedure are i n the results section. LIPID PANEL Routine 06/26/2020 5:15 Results for this ([id number])(TOTAL AM LAVATORY ATTENDANT procedure are in CHOLESTEROL, the results TRIGLYCERIDES, HDL) section. LIPASE Routine 06/26/2020 5:15 Results for this AM LAVATORY ATTENDANT procedure are i n the results section. POCT GLUCOSE Routine 06/26/2020 5:12 Results for this (AUTOMATED) AM LAVATORY ATTENDANT procedure are i n the results section. CT ABDOMEN PELVIS W STAT 06/25/2020 10:40 Generalized Resu lts for this CONTRAST PM LAVATORY ATTENDANT abdominal pain procedure are in the results section. ASSIGNMENT OF BENEFITS Routine 06/25/2020 9:16 PM LAVATORY ATTENDANT LAB ONLY COVID Routine 06/25/2020 9:12 Generalized Results f or this INTERPRETATION PM LAVATORY ATTENDANT abdominal pain procedure a re in the results section. COVID-19 (ID NOW RAPID STAT 06/25/2020 9:12 Generalized R esults for this TESTING) PM LAVATORY ATTENDANT abdominal pain procedure are in the results section. CBC WITH DIFF STAT 06/25/2020 8:54 Generalized Results fo r this PM LAVATORY ATTENDANT abdominal pain procedure are in the results section. COMP. METABOLIC PANEL STAT 06/25/2020 8:54 Generalized Re sults for this ([id number]) PM LAVATORY ATTENDANT abdominal pain procedure are in the results section. LIPASE STAT 06/25/2020 8:54 Generalized Results for this PM LAVATORY ATTENDANT abdominal pain procedure are in the results section. POCT GLUCOSE Routine 06/25/2020 8:44 Results for this (AUTOMATED) PM LAVATORY ATTENDANT procedure are i n the results section. documented in this encounter Results POCT GLUCOSE (AUTOMATED) (06/29/2020 5:35 PM LAVATORY ATTENDANT) Pathologist Sig nature POCT GLU 217 (H) 70 - 110 mg/dL [facility] Specimen Blood Performing Organization Address [facility] [place] [facility] CLIA: [id number] [place] [address] [address] POCT GLUCOSE (AUTOMATED) (06/29/2020 12:04 PM LAVATORY ATTENDANT) Pathologist Sig nature POCT GLU 214 (H) 70 - 110 mg/dL [facility] Specimen Blood Performing Organization Address [facility] [place] Phone Number [facility] CLIA: [id number] [place] [address] LAB[address] POCT GLUCOSE (AUTOMATED) (06/29/2020 7:54 AM LAVATORY ATTENDANT) Pathologist Sig nature POCT GLU 182 (H) 70 - 110 mg/dL [facility] Specimen Blood Performing Organization Address [facility] [place] Phone Number [facility] CLIA: [id number] [place] [address] LABORATORY [address] [facility] TRIGLYCERIDES (06/29/2020 5:20 AM LAVATORY ATTENDANT) Pathologist Sig nature TRIG 468 (H) 30 - 170 mg/dL [facility] Specimen Blood - ARM, RIGHT Performing Organization Address [facility] [place] Phone Number [facility] CLIA: [id number] [place] [address] LABORATORY [address] [facility] Basic Metabolic Panel (NA, K, CL, CO2, GLUCOSE, BUN, CREATININE, CA) (06/29/2020 5:20 AM LAVATORY ATTENDANT) Pathologist Sig nature NA 139 135 - 145 [facility] mmol/L [facility] K 3.6 3.5 - 5.0 [facility] mmol/L [facility] CL 104 98 - 108 mmol/L [facility] CO2 TOTAL 25 23 - 31 mmol/L [facility] AGAP 10 2 - 16 [facility] BUN 4 (L) 7 - 23 mg/dL [facility] GLUCOSE 163 (H) 70 - 110 mg/dL [facility] CREATININE 0.74 0.60 - 1.25 [facility] mg/dL [facility] CALCIUM 9.4 8.6 - 10.6 [facility] mg/dL HOSPITAL LABORATORY eGFR Calculation 117.1 mL/min/1.73m2 [facility] (Non-[facility] LABORATORY Citizen Of [place]) eGFR Calculation 142.0 mL/min/1.73m2 [facility] () [facility] Specimen Blood - ARM, RIGHT Narrative Performed At Association of Glomerular Filtration Rate (GFR) [facility] and Staging of Kidney Disease* + + +- + | GFR (mL/min/1.73 m2) | With Kidney Damage | Without Kidney Damage + + +- + | >90 | Stage one | Normal + + +- + | 60-89 | Stage two | Decreased GFR + + +- + | 30-59 | Stage three | Stage three + + +- + | 15-29 | Stage four | Stage four + + +- + | <15 (or dialysis) | Stage five | Stage five + + +- + *Each stage assumes the associated GFR level has been in effect for at least three months. Stages 1 to 5, with or without kidney disease, indicate chronic kidney disease. Notes: Determination of stages one and two (with eGFR >59mL/min/1.73 m2) requires estimation of kidney damage for at least three months as defined by structural or functional abnormalities of the kidney, manifested by either: Pathological abnormalities or Markers of kidney damage (including abnormalities in the composition of the blood or urine or abnormalities in imaging tests). Performing Organization Address City/State/Zipcode Phone Number [facility] CLIA: [id number] [place] [address] CBC with Differential (06/29/2020 5:20 AM LAVATORY ATTENDANT) Pathologist Sig nature WBC 3.39 (L) 4.20 - 10.70 [facility] 10*3/L [facility] RBC 4.87 4.26 - 5.52 [facility] 10*6/L [facility] HGB 14.0 12.2 - 16.4 [facility] g/dL [facility] HCT 40.3 38.4 - 49.3 % [facility] MCV 82.8 81.7 - 95.6 fL [facility] MCH 28.7 26.1 - 32.7 pg [facility] MCHC 34.7 31.2 - 35.0 [facility] g/dL [facility] RDW-SD 37.0 (L) 38.5 - 51.6 fL [facility] RDW-CV 12.2 12.1 - 15.4 % [facility] PLT 135 (L) 150 - 328 [facility] 10*3/L HOSPITAL LABORATORY MPV 9.9 9.8 - 13.0 fL [facility] NRBC/100 WBC 0.0 0.0 - 10.0 /100 [facility] WBCs [facility] NRBC x10^3 <0.01 10*3/L [facility] GRAN MAT (NEUT) % 61.0 % [facility] IMM GRAN % 0.30 % [facility] LYMPH % 29.5 % [facility] MONO % 5.9 % [facility] EOS % 2.4 % [facility] BASO % 0.9 % [facility] GRAN MAT x10^3(ANC) 2.07 1.99 - 6.95 [facility] 10*3/uL [facility] IMM GRAN x10^3 <0.03 0.00 - 0.06 [facility] 10*3/uL [facility] LYMPH x10^3 1.00 (L) 1.09 - 3.23 [facility] 10*3/uL [facility] MONO x10^3 0.20 (L) 0.36 - 1.02 [facility] 10*3/uL [facility] EOS x10^3 0.08 0.06 - 0.53 [facility] 10*3/uL [facility] BASO x10^3 0.03 0.01 - 0.[address]/uL [facility] Specimen Blood - ARM, RIGHT Performing Organization Address City/State/Zipcode Phone Number [facility] CLIA: [id number] [place] [address] ADC / LCC - DRUG SCREEN TRIAGE (06/28/2020 9:10 PM LAVATORY ATTENDANT) BENZO U Presumptive Positive Negative [facility]) [facility] AUDREY U Negative Negative [facility] AMPHET Negative Negative [facility] THC Presumptive Positive Negative [facility])Comment: HOSPITAL Confirmation of LABORATORY Presumptive Positive THC result requires physician order. METHADONE Negative Negative [facility] Meth U Negative Negative [facility] OPIATES Presumptive Positive Negative [facility] Cocaine Metabolite Negative Negative [facility] PROPOXY Negative Negative [facility] Tric U Presumptive Positive Negative [facility] ()Comment: HOSPITAL Confirmation of LABORATORY Presumptive Positive TCA result requires physician order and this will be sent to reference lab. PCP Negative Negative [facility] OXYCOD Negative Negative [facility] Specimen Urine - URINE, CLEAN CATCH Narrative Performed At Urine Drug Cutoff Ranges [facility] Benzodiazepines: 150 ng/mL Barbiturates: 200 ng/mL Amphetamine: 500 ng/mL Cannabinoids: 50 ng/mL Methadone: 200 ng/mL Methamphetamine: 500 ng/mL Opiates: 100 ng/mL or 2000 ng/mL Cocaine: 150 ng/mL Propoxyphene: 300 ng/mL Tricyclics: 300 ng/mL Oxycodone: 100 ng/mL PCP: 25 ng/mL The results are to be used only for medical (i.e., treatment) purposes. Unconfirmed screening results must not be used for non-medical purposes (e.g., employment testing, legal testing). Performing Organization Address [facility] [place] Phone Number [facility] CLIA: [id number] [place] [address] [place] [address] Drive POCT GLUCOSE (AUTOMATED) (06/28/2020 4:46 PM LAVATORY ATTENDANT) Pathologist Sig nature POCT GLU 234 (H) 70 - 110 mg/dL [facility] Specimen Blood Performing Organization Address [facility] [place] Phone Number [facility] CLIA: [id number] [place] [address] LABORATORY [address] [place] [address] POCT GLUCOSE (AUTOMATED) (06/28/2020 12:53 PM LAVATORY ATTENDANT) Pathologist Sig nature POCT GLU 195 (H) 70 - 110 mg/dL [facility] Specimen Blood Performing Organization Address [facility] Phone Number [facility] CLIA: [id number] [place] [address] [place] [address] Drive POCT GLUCOSE (AUTOMATED) (06/28/2020 12:01 PM LAVATORY ATTENDANT) Pathologist Sig nature POCT GLU 113 (H) 70 - 110 mg/dL [facility] Specimen Blood Performing Organization Address [facility] Phone Number [facility] CLIA: [id number] [place] [address] POCT GLUCOSE (AUTOMATED) (06/28/2020 7:27 AM LAVATORY ATTENDANT) Pathologist Sig nature POCT GLU 94 70 - 110 mg/dL [facility] Specimen Blood Performing Organization Address [facility] Phone Number [facility] CLIA: [id number] [place] [address] POCT GLUCOSE (AUTOMATED) (06/28/2020 5:48 AM LAVATORY ATTENDANT) Pathologist Sig nature POCT GLU 111 (H) 70 - 110 mg/dL [facility] Specimen Blood Performing Organization Address [facility] Phone Number [facility] CLIA: [id number] [place] [address] ETHANOL (06/28/2020 4:27 AM LAVATORY ATTENDANT) Pathologist Sig nature ALCOHOL <10 mg/dL [facility] Specimen Blood - ARM, RIGHT Narrative Performed At <10 Negative [facility] 50-100 Toxic >100 Depression of BREAKER OPERATOR >400 Fatalities Reported Performing Organization Address [facility] Phone Number [facility] CLIA: [id number] [place] [address] MAGNESIUM (06/28/2020 4:27 AM LAVATORY ATTENDANT) Pathologist Sig nature MAGNESIUM 1.7 1.7 - 2.4 mg/dL [facility] Specimen Blood - ARM, RIGHT Performing Organization Address [facility] Phone Number [facility] CLIA: [id number] [place] [address] TRIGLYCERIDES (06/28/2020 4:27 AM LAVATORY ATTENDANT) Pathologist Sig nature TRIG 519 (H) 30 - 170 mg/dL [facility] Specimen Blood - ARM, RIGHT Performing Organization Address [facility]/Zipcode Phone Number [facility] CLIA: [id number] [place] [address] [address] LIPASE (06/28/2020 4:27 AM LAVATORY ATTENDANT) Pathologist Sig nature LIPASE 27 0 - 220 U/L [facility] Specimen Blood - ARM, RIGHT Performing Organization Address [facility] Phone Number [facility] CLIA: [id number] [place] [address] Basic Metabolic Panel (NA, K, CL, CO2, GLUCOSE, BUN, CREATININE, CA) (06/28/2020 4:27 AM LAVATORY ATTENDANT) NA 140 135 - 145 [facility] mmol/L [facility] K 3.0 (L) 3.5 - 5.0 [facility] mmol/L [facility] CL 106 98 - 108 mmol/L [facility] CO2 TOTAL 25 23 - 31 mmol/L [facility] AGAP 9 2 - 16 [facility] BUN <2 (L) 7 - 23 mg/dL [facility] GLUCOSE 107 70 - 110 mg/dL [facility] CREATININE 0.59 (L) 0.60 - 1.25 [facility] mg/dL [facility] CALCIUM 8.9 8.6 - 10.6 [facility] mg/dL [facility] eGFR Calculation 152.1 mL/min/1.73m2 [facility] (Non-[facility] LABORATORY Citizen Of [place]) eGFR Calculation 184.4 mL/min/1.73m2 [facility] () [facility] Specimen Blood - ARM, RIGHT Narrative Performed At [facility] Glomerular Filtration Rate (GFR) [facility] and Staging of Kidney Disease* + + +- + | GFR (mL/min/1.73 m2) | With Kidney Damage | Without Kidney Damage + + +- + | >90 | Stage one | Normal + + +- + | 60-89 | Stage two | Decreased GFR + + +- + | 30-59 | Stage three | Stage three + + +- + | 15-29 | Stage four | Stage four + + +- + | <15 (or dialysis) | Stage five | Stage five + + +- + *Each stage assumes the associated GFR level has been in effect for at least three months. Stages 1 to 5, with or without kidney disease, indicate chronic kidney disease. Notes: Determination of stages one and two (with eGFR >59mL/min/1.73 m2) requires estimation of kidney damage for at least three months as defined by structural or functional abnormalities of the kidney, manifested by either: Pathological abnormalities or Markers of kidney damage (including abnormalities in the composition of the blood or urine or abnormalities in imaging tests). Performing Organization Address City/State/Zipcode Phone Number [facility] CLIA: [id number] [place] [address] CBC with Differential (06/28/2020 4:27 AM LAVATORY ATTENDANT) Pathologist Sig nature WBC 3.12 (L) 4.20 - 10.70 [facility] 10*3/L [facility] RBC 4.73 4.26 - 5.52 [facility] 10*6/L [facility] HGB 13.6 12.2 - 16.4 [facility] g/dL [facility] HCT 39.2 38.4 - 49.3 % [facility] MCV 82.9 81.7 - 95.6 fL [facility] MCH 28.8 26.1 - 32.7 pg [facility] MCHC 34.7 31.2 - 35.0 [facility] g/dL [facility] RDW-SD 36.2 (L) 38.5 - 51.6 fL [facility] RDW-CV 11.9 (L) 12.1 - 15.4 % [facility] PLT 118 (L) 150 - 328 [facility] 10*3/L [facility] MPV 10.0 9.8 - 13.0 fL [facility] NRBC/100 WBC 0.0 0.0 - 10.0 /100 [facility] WBCs [facility] NRBC x10^3 <0.01 10*3/L [facility] GRAN MAT (NEUT) % 59.7 % [facility] IMM GRAN % 0.30 % [facility] LYMPH % 33.3 % [facility] MONO % 4.8 % [facility] EOS % 1.3 % [facility] BASO % 0.6 % [facility] GRAN MAT x10^3(ANC) 1.86 (L) 1.99 - 6.95 [facility] 10*3/uL [facility] IMM GRAN x10^3 <0.03 0.00 - 0.06 [facility] 10*3/uL [facility] LYMPH x10^3 1.04 (L) 1.09 - 3.23 [facility] 10*3/uL [facility] MONO x10^3 0.15 (L) 0.36 - 1.02 [facility] 10*3/uL [facility] EOS x10^3 0.04 (L) 0.06 - 0.53 [facility] 10*3/uL [facility] BASO x10^3 <0.03 0.01 - 0.[address]3/uL [facility] Specimen Blood - ARM, RIGHT Performing Organization Address [facility] Phone Number [facility] CLIA: [id number] [place] [id number] LABORATORY [address] POCT GLUCOSE (AUTOMATED) (06/28/2020 4:10 AM LAVATORY ATTENDANT) Pathologist Sig nature POCT GLU 109 70 - 110 mg/dL [facility] Specimen Blood Performing Organization Address [facility] Phone Number [facility] CLIA: [id number] [place] [id number] LABORATORY [address] POCT GLUCOSE (AUTOMATED) (06/28/2020 1:00 AM LAVATORY ATTENDANT) Pathologist Sig nature POCT GLU 152 (H) 70 - 110 mg/dL [facility] Specimen Blood Performing Organization Address [facility] Phone Number [facility] CLIA: [id number] [place] [id number] LABORATORY [address] POCT GLUCOSE (AUTOMATED) (06/27/2020 11:48 PM LAVATORY ATTENDANT) Pathologist Sig nature POCT GLU 84 70 - 110 mg/dL [facility] Specimen Blood Performing Organization Address [facility] Phone Number [facility] CLIA: [id number] [place], [place] [address] LABORATORY [address] POCT GLUCOSE (AUTOMATED) (06/27/2020 10:45 PM LAVATORY ATTENDANT) Pathologist Sig nature POCT GLU 95 70 - 110 mg/dL [facility] Specimen Blood Performing Organization Address [facility] Phone Number [facility] CLIA: [id number] [place] [address] POCT GLUCOSE (AUTOMATED) (06/27/2020 9:40 PM LAVATORY ATTENDANT) Pathologist Sig nature POCT GLU 123 (H) 70 - 110 mg/dL [facility] Specimen Blood Performing Organization Address [facility] Phone Number [facility] CLIA: [id number] [place] [address] POCT GLUCOSE (AUTOMATED) (06/27/2020 8:43 PM LAVATORY ATTENDANT) Pathologist Sig nature POCT GLU 121 (H) 70 - 110 mg/dL [facility] Specimen Blood Performing Organization Address [facility] Phone Number [facility] CLIA: [id number] [place] [address] POCT GLUCOSE (AUTOMATED) (06/27/2020 7:39 PM LAVATORY ATTENDANT) Pathologist Sig nature POCT GLU 94 70 - 110 mg/dL [facility] Specimen Blood Performing Organization Address [facility] Phone Number [facility] CLIA: [id number] [place], [place] [address] LABORATORY [address] POCT GLUCOSE (AUTOMATED) (06/27/2020 5:10 PM LAVATORY ATTENDANT) Pathologist Sig nature POCT GLU 87 70 - 110 mg/dL [facility] Specimen Blood Performing Organization Address [facility] Phone Number [facility] CLIA: [id number] [place], [place] [address] LABORATORY [address] TRIGLYCERIDES (06/27/2020 5:08 PM LAVATORY ATTENDANT) Pathologist Sig nature TRIG 647 (H) 30 - 170 mg/dL [facility] Specimen Blood - HAND, RIGHT Performing Organization Address [facility]/Zipcode Phone Number [facility] CLIA: [id number] [place] [address] POCT GLUCOSE (AUTOMATED) (06/27/2020 3:29 PM LAVATORY ATTENDANT) Pathologist Sig nature POCT GLU 85 70 - 110 mg/dL [facility] Specimen Blood Performing Organization Address [facility] Phone Number [facility] CLIA: [id number] [place] [address] POCT GLUCOSE (AUTOMATED) (06/27/2020 1:54 PM LAVATORY ATTENDANT) Pathologist Sig nature POCT GLU 91 70 - 110 mg/dL [facility] Specimen Blood Performing Organization Address [facility] Phone Number [facility] CLIA: [id number] [place] [address] POCT GLUCOSE (AUTOMATED) (06/27/2020 12:59 PM LAVATORY ATTENDANT) Pathologist Sig nature POCT GLU 125 (H) 70 - 110 mg/dL [facility] Specimen Blood Performing Organization Address [facility] Phone Number [facility] CLIA: [id number] [place] [address] POCT GLUCOSE (AUTOMATED) (06/27/2020 11:42 AM LAVATORY ATTENDANT) Pathologist Sig nature POCT GLU 122 (H) 70 - 110 mg/dL [facility] Specimen Blood Performing Organization Address [facility] Phone Number [facility] CLIA: [id number] [place] [address] POCT GLUCOSE (AUTOMATED) (06/27/2020 10:50 AM LAVATORY ATTENDANT) Pathologist Sig nature POCT GLU 98 70 - 110 mg/dL [facility] Specimen Blood Performing Organization Address [facility] Phone Number [facility] CLIA: [id number] [place] [address] POCT GLUCOSE (AUTOMATED) (06/27/2020 8:43 AM LAVATORY ATTENDANT) Pathologist Sig nature POCT GLU 181 (H) 70 - 110 mg/dL [facility] Specimen Blood Performing Organization Address [facility] Phone Number [facility] CLIA: [id number] [place] [address] POCT GLUCOSE (AUTOMATED) (06/27/2020 7:19 AM LAVATORY ATTENDANT) Pathologist Sig nature POCT GLU 209 (H) 70 - 110 mg/dL [facility] Specimen Blood Performing Organization Address [facility] Phone Number [facility] CLIA: [id number] [place], [place] [address] LABORATORY [address] POCT GLUCOSE (AUTOMATED) (06/27/2020 6:18 AM LAVATORY ATTENDANT) Pathologist Sig nature POCT GLU 216 (H) 70 - 110 mg/dL [facility] Specimen Blood Performing Organization Address [facility] Phone Number [facility] CLIA: [id number] [place] [address] TRIGLYCERIDES (06/27/2020 4:20 AM LAVATORY ATTENDANT) Pathologist Sig nature TRIG 810 (H) 30 - 170 mg/dL [facility] Specimen Blood - HAND, LEFT Performing Organization Address [facility] Phone Number [facility] CLIA: [id number] [place] [address] LIPASE (06/27/2020 4:20 AM LAVATORY ATTENDANT) Pathologist Sig nature LIPASE 40 0 - 220 U/L [facility] Specimen Blood - HAND, LEFT Performing Organization Address [facility] Phone Number [facility] CLIA: [id number] [place] [address] Basic Metabolic Panel (NA, K, CL, CO2, GLUCOSE, BUN, CREATININE, CA) (06/27/2020 4:20 AM LAVATORY ATTENDANT) NA 135 135 - 145 [facility] mmol/L [facility] K 3.6 3.5 - 5.0 [facility] mmol/L [facility] CL 104 98 - 108 mmol/L [facility] CO2 TOTAL 23 23 - 31 mmol/L [facility] AGAP 8 2 - 16 [facility] BUN 5 (L) 7 - 23 mg/dL [facility] [place] GLUCOSE 191 (H) 70 - 110 mg/dL [facility] [place] CREATININE 0.56 (L) 0.60 - 1.25 [facility] mg/dL [facility] CALCIUM 8.9 8.6 - 10.6 [facility] mg/dL [facility] eGFR Calculation 161.6 mL/min/1.73m2 [facility] (Non-[facility] LABORATORY Citizen Of [place]) eGFR Calculation 195.8 mL/min/1.73m2 [facility] () [facility] Specimen Blood - HAND, LEFT Narrative Performed At Association of Glomerular Filtration Rate (GFR) [facility] and Staging of Kidney Disease* + + +- + | GFR (mL/min/1.73 m2) | With Kidney Damage | Without Kidney Damage + + +- + | >90 | Stage one | Normal + + +- + | 60-89 | Stage two | Decreased GFR + + +- + | 30-59 | Stage three | Stage three + + +- + | 15-29 | Stage four | Stage four + + +- + | <15 (or dialysis) | Stage five | Stage five + + +- + *Each stage assumes the associated GFR level has been in effect for at least three months. Stages 1 to 5, with or without kidney disease, indicate chronic kidney disease. Notes: Determination of stages one and two (with eGFR >59mL/min/1.73 m2) requires estimation of kidney damage for at least three months as defined by structural or functional abnormalities of the kidney, manifested by either: Pathological abnormalities or Markers of kidney damage (including abnormalities in the composition of the blood or urine or abnormalities in imaging tests). Performing Organization Address City/State/Zipcode Phone Number [facility] CLIA: [id number] [place] [address] CBC with Differential (06/27/2020 4:20 AM LAVATORY ATTENDANT) [facility] WBC 3.00 (L) 4.20 - 10.70 [facility] 10*3/L [facility] RBC 4.47 4.26 - 5.52 [facility] 10*6/L HOSPITAL LABORATORY HGB 12.9 12.2 - 16.4 [facility] g/dL HOSPITAL LAB[facility]ATORY HCT 36.9 (L) 38.4 - 49.3 % [facility] MCV 82.6 81.7 - 95.6 fL [facility] MCH 28.9 26.1 - 32.7 pg [facility] MCHC 35.0 31.2 - 35.0 [facility] g/dL [facility] RDW-SD 35.6 (L) 38.5 - 51.6 fL [facility] RDW-CV 11.8 (L) 12.1 - 15.4 % [facility] PLT 101 (L) 150 - 328 [facility] 10*3/L [facility] MPV 9.9 9.8 - 13.0 fL [facility] NRBC/100 WBC 0.0 0.0 - 10.0 /100 [facility] WBCs [facility] NRBC x10^3 <0.01 10*3/L [facility] GRAN MAT (NEUT) % 59.3 % [facility] IMM GRAN % 0.30 % [facility] LYMPH % 33.7 % [facility] MONO % 4.7 % [facility] EOS % 1.3 % [facility] BASO % 0.7 % [facility] GRAN MAT x10^3(ANC) 1.78 (L) 1.99 - 6.95 [facility] 10*3/uL HOSPITAL LABORATORY IMM GRAN x10^3 <0.03 0.00 - 0.06 [facility] 10*3/uL HOSPITAL LABORATORY LYMPH x10^3 1.01 (L) 1.09 - 3.23 [facility] 10*3/uL HOSPITAL LABORATORY MONO x10^3 0.14 (L) 0.36 - 1.02 [facility] 10*3/uL HOSPITAL LABORATORY EOS x10^3 0.04 (L) 0.06 - 0.53 [facility] 10*3/uL HOSPITAL LABORATORY BASO x10^3 <0.03 0.01 - 0.09 [facility] 10*3/uL [facility]OS[facility]ITAL [facility]ORY Specimen Blood - HAND, LEFT Performing Organization Address City/State/Zipcode Phone Number [facility] CLIA: [id number] [place] [address] POCT GLUCOSE (AUTOMATED) (06/27/2020 4:06 AM LAVATORY ATTENDANT) Pathologist Sig nature POCT GLU 238 (H) 70 - 110 mg/dL [facility] Specimen Blood Performing Organization Address [facility] Phone Number [facility] CLIA: [id number] [place] [address] POCT GLUCOSE (AUTOMATED) (06/27/2020 3:06 AM LAVATORY ATTENDANT) Pathologist Sig nature POCT GLU 185 (H) 70 - 110 mg/dL [facility] Specimen Blood Performing Organization Address [facility] Phone Number [facility] CLIA: [id number] [place] [address] POCT GLUCOSE (AUTOMATED) (06/27/2020 2:07 AM LAVATORY ATTENDANT) Pathologist Sig nature POCT GLU 124 (H) 70 - 110 mg/dL [facility] Specimen Blood Performing Organization Address [facility] Phone Number [facility] CLIA: [id number] [place] [address] POCT GLUCOSE (AUTOMATED) (06/27/2020 1:09 AM LAVATORY ATTENDANT) Pathologist Sig nature POCT GLU 104 70 - 110 mg/dL [facility] Specimen Blood Performing Organization Address [facility] Phone Number [facility] CLIA: [id number] [place] [address] POCT GLUCOSE (AUTOMATED) (06/27/2020 12:02 AM LAVATORY ATTENDANT) Pathologist Sig nature POCT GLU 97 70 - 110 mg/dL [facility] Specimen Blood Performing Organization Address [facility] Phone Number [facility] CLIA: [id number] [place] [address] POCT GLUCOSE (AUTOMATED) (06/26/2020 10:52 PM LAVATORY ATTENDANT) Pathologist Sig nature POCT GLU 54 (L) 70 - 110 mg/dL [facility] Specimen Blood Performing Organization Address [facility] Phone Number [facility] CLIA: [id number] [place] [address] POCT GLUCOSE (AUTOMATED) (06/26/2020 10:02 PM LAVATORY ATTENDANT) Pathologist Sig nature POCT GLU 88 70 - 110 mg/dL [facility] Specimen Blood Performing Organization Address [facility] Phone Number [facility] CLIA: [id number] [place], [place] [address] LABORATORY [address] POCT GLUCOSE (AUTOMATED) (06/26/2020 9:28 PM LAVATORY ATTENDANT) Pathologist Sig nature POCT GLU 104 70 - 110 mg/dL [facility] Specimen Blood Performing Organization Address [facility] Phone Number [facility] CLIA: [id number] [place] [address] POCT GLUCOSE (AUTOMATED) (06/26/2020 9:02 PM LAVATORY ATTENDANT) Pathologist Sig nature POCT GLU 68 (L) 70 - 110 mg/dL [facility] Specimen Blood Performing Organization Address [facility] Phone Number [facility] CLIA: [id number] [place], [place] [address] LABORATORY [address] POCT GLUCOSE (AUTOMATED) (06/26/2020 8:01 PM LAVATORY ATTENDANT) Pathologist Sig nature POCT GLU 113 (H) 70 - 110 mg/dL [facility] Specimen Blood Performing Organization Address [facility] Phone Number [facility] CLIA: [id number] [place] [address] POCT GLUCOSE (AUTOMATED) (06/26/2020 7:15 PM LAVATORY ATTENDANT) Pathologist Sig nature POCT GLU 122 (H) 70 - 110 mg/dL [facility] Specimen Blood Performing Organization Address [facility] Phone Number [facility] CLIA: [id number] [place] [address] POCT GLUCOSE (AUTOMATED) (06/26/2020 6:07 PM LAVATORY ATTENDANT) Pathologist Sig nature POCT GLU 125 (H) 70 - 110 mg/dL [facility] Specimen Blood Performing Organization Address [facility] Phone Number [facility] CLIA: [id number] [place] [address] POCT GLUCOSE (AUTOMATED) (06/26/2020 4:46 PM LAVATORY ATTENDANT) Pathologist Sig nature POCT GLU 88 70 - 110 mg/dL [facility] Specimen Blood Performing Organization Address [facility] Phone Number [facility] CLIA: [id number] [place] [address] TRIGLYCERIDES (06/26/2020 4:07 PM LAVATORY ATTENDANT) Pathologist Sig nature TRIG 1,086 (H) 30 - 170 mg/dL [facility] Specimen Blood - VENOUS Performing Organization Address [facility] Phone Number [facility] CLIA: [id number] [place] [address] POCT GLUCOSE (AUTOMATED) (06/26/2020 3:45 PM LAVATORY ATTENDANT) Pathologist Sig nature POCT GLU 81 70 - 110 mg/dL [facility] Specimen Blood Performing Organization Address [facility] Phone Number [facility] CLIA: [id number] [place] [address] POCT GLUCOSE (AUTOMATED) (06/26/2020 2:38 PM LAVATORY ATTENDANT) Pathologist Sig nature POCT GLU 91 70 - 110 mg/dL [facility] Specimen Blood Performing Organization Address [facility] Phone Number [facility] CLIA: [id number] [place] [address] POCT GLUCOSE (AUTOMATED) (06/26/2020 12:13 PM LAVATORY ATTENDANT) Pathologist Sig nature POCT GLU 175 (H) 70 - 110 mg/dL [facility] Specimen Blood Performing Organization Address City/[facility]/Zipcode Phone Number [facility] CLIA: [id number] [place] [address] [address] POCT GLUCOSE (AUTOMATED) (06/26/2020 11:03 AM LAVATORY ATTENDANT) Pathologist Sig nature POCT GLU 227 (H) 70 - 110 mg/dL [facility] Specimen Blood Performing Organization Address City/[facility] Phone Number [facility] CLIA: [id number] [place] [address] [address] LOW-DENSITY LIPOPROTEIN, DIRECT (06/26/2020 5:15 AM LAVATORY ATTENDANT) Pathologist Sig nature dLDL Chol <30 <130 mg/dL [facility] Specimen Blood - LINE, VENOUS Performing Organization Address [facility] Phone Number [facility] CLIA: [id number] [place] [address] [place] [address] LIPID PANEL ([id number])(TOTAL CHOLESTEROL, TRIGLYCERIDES, HDL) (06/26/2020 5:15 AM LAVATORY ATTENDANT) CHOL 217 (H) 120 - 200 [facility] mg/dL [facility] HDL 13 (L) >40 mg/dL [facility] HDLC RATIO 16.7 (H) <=5.0 [facility] TRIG 1,337 (H) 30 - 170 mg/dL [facility] LDL CHOL Comment: Unable to [facility] calculate LDL due to HOSPITAL LABORATORY elevated triglyceride level greater than 400 mg/dL. VLDL Comment: Unable to [facility] calculate VLDL due to HOSPITAL LABORATORY elevated triglyceride level greater than 710 mg/dL. Specimen Blood - LINE, VENOUS Performing Organization Address [facility] Phone Number [facility] CLIA: [id number] [place] [address] GLYCOSYLATED HEMOGLOBIN (A1C) (06/26/2020 5:15 AM LAVATORY ATTENDANT) Pathologist Sig nature HGB A1C 9.2 (H) 4.0 - 6.0 % [facility] Specimen Blood - LINE, VENOUS Narrative Performed At %A1C (NGSP) Interpretation (ADA) [facility] 4.8-5.6 Normal or (Non-Diabetic Ra nge) 5.7-6.4 Increased Risk (Pre-Diabet ic) >6.5 Diabetes Indicated Performing Organization Address City/[facility] Phone Number [facility] CLIA: [id number] [place] [address] LIPASE (06/26/2020 5:15 AM LAVATORY ATTENDANT) Pathologist Sig nature LIPASE 60 0 - 220 U/L [facility] Specimen Blood - LINE, VENOUS Performing Organization Address [facility] Phone Number [facility] CLIA: [id number] [place] [address] [address] POCT GLUCOSE (AUTOMATED) (06/26/2020 5:12 AM LAVATORY ATTENDANT) Pathologist Sig nature POCT GLU 209 (H) 70 - 110 mg/dL [facility] Specimen Blood Performing Organization Address [facility] Phone Number [facility] CLIA: [id number] [place] [address] ABDOMEN PELVIS W CONTRAST (06/25/2020 10:40 PM LAVATORY ATTENDANT) Specimen Impressions Performed At Impression: PACS/VR/DOSE 1. Peripancreatic inflammation, likely representing ac [place] pancreatitis. 1.7 cm area of hypoattenuation in the pancreatic uncinate process may represent focal necrosis or developing pseudocyst. 2. 4.8 cm hypodense structure in the chang creatic tail may represent a pseudocyst. Cystic pancreatic neoplasm is not excluded . Given size greater than 3 cm, cyst aspiration is suggested, if clinically indicated. Otherwise, follow-up MRI of the pancreas and MRCP is suggested every 6 months for 2 years. 3. Duodenal mucosal fold thickening, whi ch may represent reactive duodenitis. 4. Mild diffuse colonic wall thickening, consistent with colitis. 5. Moderate colonic diverticulosis witho ut evidence of diverticulitis. 6. No free air. Trace pelvic free fluid. 7. 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 Result splenomegaly with varices demonstrated i n the upper abdomen. RL: [id number] [facility]: [id number] End of Report Narrative Performed At Exam: CT Abdomen and Pelvis With Contras t, 06/25/2020 9:45 PM. PACS/VR/DOSE Ordering Physician: KOFI BEEBE. History: Acute, generalized abdominal pa in. Technique: CT abdomen and pelvis was obtained with int ravenous contrast. CT was performed according to ALARA (As Low As Reasonably Achievable). Comparison: None. Findings: CT Abdomen: Lung bases are clear. Heart size is norm al. Gallbladder is surgically absent. There is peripancreatic fat stranding. Within the pancreatic tail, there is a hypodense 4.8 x 4.2 cm structure. A small area of hypoattenuation in the pancreatic uncina te process measures approximately 1.7 cm. There is no pancre atic or biliary duct dilatation. Spleen is enlarged. 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 Multiple serpiginous enha ncing structures in the upper abdomen likely represent varices. The adrena l glands are normal. Kidneys are symmetric in size, enhancement, and contra st excretion. There is no hydronephrosis or hydroureter. There is no free air or free fluid. Ther e is no abdominal adenopathy. Stomach is unremarkable. There is duoden al mucosal fold thickening. Diverticulum is noted at the third porti on of the duodenum. There is no evidence of bowel obstruction. Appendix is normal. There is moderate colonic diverticulosis. No focal peridiverticular infl ammatory changes are seen. There is mild diffuse colonic wall thickening. There are degenerative changes of the sp ine. CT Pelvis: Pelvic small bowel loops are unremarkabl e. Urinary bladder is unremarkable. Prostat e and seminal vesicles are not enlarged. There is trace pelvic free fluid. Ther e is no pelvic adenopathy. Osseous structures are unremarkable. Procedure Note [facility], Radiant Results Inft User - 2019 11:56 PM LAVATORY ATTENDANT Exam: CT Abdomen and Pelvis With Contrast, 06/25/2020 9:45 PM. Ordering Physician: KOFI BEEBE. History: Acute, generalized abdominal pa in. Technique: CT abdomen and pelvis was obt ained with intravenous contrast. CT was performed according to ALARA (As Low As Reasonably Achievable). Comparison: None. Findings: CT Abdomen: Lung bases are clear. Heart size is norm al. Gallbladder is surgically absent. There is peripancreatic fat stranding. Within the pancreatic tail, there is a h ypodense 4.8 x 4.2 cm structure. A small area of hypoattenuation in the chang creatic uncinate process measures approximately 1.7 cm. There is no pancre atic or biliary duct dilatation. Spleen is enlarged. 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 Multiple se rpiginous enhancing structures in the upper abdomen likely represent varic es. The adrenal glands are normal. Kidneys are symmetric in size, enhanceme nt, and contrast excretion. There is no hydronephrosis or hydroureter. There is no free air or free fluid. Ther e is no abdominal adenopathy. Stomach is unremarkable. There is duoden al mucosal fold thickening. Diverticulum is noted at the third porti on of the duodenum. There is no evidence of bowel obstruction. Appendix is normal. There is moderate colonic diverticulosis. No focal peridiv erticular inflammatory changes are seen. There is mild diffuse colonic wall thickening. There are degenerative changes of the sp ine. CT Pelvis: Pelvic small bowel loops are unremarkabl e. Urinary bladder is unremarkable. Prostat e and seminal vesicles are not enlarged. There is trace pelvic free fluid. There is no pelvic adenopathy. Osseous structures are unremarkable. IMPRESSION Impression: 1. Peripancreatic inflammation, likely r epresenting acute pancreatitis. 1.7 cm area of hypoattenuation in the pancre atic uncinate process may represent focal necrosis or developing pseudocyst. 2. 4.8 cm hypodense structure in the chang creatic tail may represent a pseudocyst. Cystic pancreatic neoplasm i s not excluded. Given size greater than 3 cm, cyst aspiration is suggested, if clinically indicated. Otherwise, follow-up MRI of the pancreas and MRCP is suggested every 6 months for 2 years. 3. Duodenal mucosal fold thickening, whi ch may represent reactive duodenitis. 4. Mild diffuse colonic wall thickening, consistent with colitis. 5. Moderate colonic diverticulosis witho ut evidence of diverticulitis. 6. No free air. Trace pelvic free fluid. 7. 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 Result splenomegaly with varices demonstrated i n the upper abdomen. RL: [id number] [facility]: [id number] End of Report Performing Organization Address City/State/Zipcode Phone Number PACS/VR/DOSE LAB ONLY COVID INTERPRETATION (06/25/2020 9:12 PM LAVATORY ATTENDANT) COVID DMT Interpretation/Recommendations: [facility] LABO RAT[facility] Interpretation SERVICES Molecular NAAT Tests for Active Infection with the JOVITA S-CoV-2 Virus: This result indicates that t he patient has tested negative on one occasion for the SARS-CoV-2 virus that causes COVID-19 illness. This most likely indicates that the patient does not have an active infe ction with the SARS-CoV-2 vi lori. However, infection is not completely ruled out as the false negative rate for molecular NAAT testing using a nasopharyngeal sample can be up to 30%, mostly dependent on the timing of sample collect ion in relation to illness onset and any deficiencies in sampling techniques. If the patient continues to have persistent or worsening symptoms concerning for COVID-19 illnes s, a repeat NAAT test (PCR, Rapid ID Now, etc.) should be performed, at which time the SARS-CoV-2 virus - if present - may have reached a detectable viral load (usually peaking by the end of the first week of symptoms). Tests for IgM and/or IgG Antibodies to SARS-CoV-2 Viru s: Testing for IgM and IgG anti bodies 1-3 weeks after illness onset will indicate whether the patient has produced antibodies to the virus. At this time, it is not known if the production of antibodies - s pecifically IgG antibodies - indicates whether the patient is immune to future infections with the SARS-CoV-2 virus. Interpretation Result Comments: These interpretation comment s are based upon all COVID-19 testing the patient has had at [facility], including molecular NAAT testing (more commonly known as PCR testing and Rapid ID Now testing) and antibody testing. It does not take i nto account any testing that a patient has had outside of the [facility] medical record. COVID Results SARS-CoV-2 Rapid ID NOW (no units) [facility] LAB[facility] Date Value SERVICES 06/25/2020 Not Detected Specimen Swab - NASOPHARYNGEAL SWAB Performing Organization Address City/[facility]/Zipcode Phone Number [facility] SERVICES CLIA: [id number] [place] [address] [place] [address] COVID-19 (ID NOW RAPID TESTING) (06/25/2020 9:12 PM LAVATORY ATTENDANT) SARS-CoV-2 Rapid ID Not Detected Not Detected [facility] LAB[facility] Specimen Swab - NASOPHARYNGEAL SWAB Narrative Performed At ID NOW COVID-19 Assay is an isothermal nucleic [facility] LABOR[facility]ORY acid amplification test intended for the qualitative detection of nucleic acid from SARS-CoV-2 viral RNA in nasopharyngeal ([employer]) specimens. It is used under Emergency Use Authorization (EUA) by FDA. The limit of detection (LOD) of the assay is 125 Genome Equivalents/mL. A positive result is indicative of the presence of SARS-CoV-2 RNA. Clinical correlation with patient history and other diagnostic information is necessary to determine patient infection status. A negative (Not Detected) result does not preclude SARS-CoV-2 infection. In patients with clinical symptoms and other tests that are consistent with SARS-CoV-2 infection, negative results should be treated as presumptive negative and a new specimen should be tested with alternative PCR molecular test. Invalid: Please collect a new specimen for repeat patient testing if clinically indicated. Performing Organization Address [facility] Phone Number [facility] CLIA: [id number] [place] [address] [address] [facility] [address] LIPASE (06/25/2020 8:54 PM LAVATORY ATTENDANT) Pathologist Sig nature LIPASE 57 0 - 220 U/L [facility] Specimen Blood - ARM, RIGHT Performing Organization Address [facility] Phone Number [facility] CLIA: [id number] [place] [address] COMP. METABOLIC PANEL ([id number]) (06/25/2020 8:54 PM LAVATORY ATTENDANT) Pathologist Sig nature NA 136 135 - 145 [facility] mmol/L [facility] K 4.3 3.5 - 5.0 [facility] mmol/L [facility] CL 97 (L) 98 - 108 mmol/L [facility] CO2 TOTAL 31 23 - 31 mmol/L [facility] AGAP 8 2 - 16 [facility] BUN 7 7 - 23 mg/dL [facility] GLUCOSE 220 (H) 70 - 110 mg/dL [facility] CREATININE 0.68 0.60 - 1.25 [facility] mg/dL [facility] TOTAL BILI 1.6 (H) 0.1 - 1.1 mg/dL [facility] CALCIUM 9.4 8.6 - 10.6 [facility] mg/dL [facility] T PROTEIN 7.6 6.3 - 8.2 g/dL [facility] ALBUMIN 4.4 3.5 - 5.0 g/dL [facility] [place] ALK PHOS 103 34 - 122 U/L [facility] ALTv 113 (H) 5 - 50 U/L [facility] AST(SGOT) 87 (H) 13 - 40 U/L [facility] eGFR Calculation 129.2 mL/min/1.73m2 [facility] (Non-[facility] LABORATORY Citizen Of [place]) eGFR Calculation 156.5 mL/min/1.73m2 [facility] () [facility] LAB[facility] Specimen Blood - ARM, RIGHT Narrative Performed At Association of Glomerular Filtration Rate (GFR) [facility] LAB[facility] and Staging of Kidney Disease* + + +- + | GFR (mL/min/1.73 m2) | With Kidney Damage | Without Kidney Damage + + +- + | >90 | Stage one | Normal + + +- + | 60-89 | Stage two | Decreased GFR + + +- + | 30-59 | Stage three | Stage three + + +- + | 15-29 | Stage four | Stage four + + +- + | <15 (or dialysis) | Stage five | Stage five + + +- + *Each stage assumes the associated GFR level has been in effect for at least three months. Stages 1 to 5, with or without kidney disease, indicate chronic kidney disease. Notes: Determination of stages one and two (with eGFR >59mL/min/1.73 m2) requires estimation of kidney damage for at least three months as defined by structural or functional abnormalities of the kidney, manifested by either: Pathological abnormalities or Markers of kidney damage (including abnormalities in the composition of the blood or urine or abnormalities in imaging tests). Performing Organization Address City/State/Zipcode Phone Number [facility] CLIA: [id number] [place] [address] CBC WITH DIFF (06/25/2020 8:54 PM LAVATORY ATTENDANT) Pathologist Sig nature WBC 6.31 4.20 - 10.70 [facility] 10*3/L [facility] RBC 5.25 4.26 - 5.52 [facility] 10*6/L [facility] HGB 15.7 12.2 - 16.4 [facility] g/dL [facility] HCT 42.9 38.4 - 49.3 % [facility] MCV 81.7 81.7 - 95.6 fL [facility] MCH 29.9 26.1 - 32.7 pg [facility] MCHC 36.6 (H) 31.2 - 35.0 [facility] g/dL [facility] RDW-SD 35.3 (L) 38.5 - 51.6 fL [facility] RDW-CV 11.9 (L) 12.1 - 15.4 % [facility] PLT 149 (L) 150 - 328 [facility] 10*3/L [facility] LAB[facility] MPV 9.3 (L) 9.8 - 13.0 fL [facility] NRBC/100 WBC 0.0 0.0 - 10.0 /100 [facility] WBCs [facility] NRBC x10^3 <0.01 10*3/L [facility] GRAN MAT (NEUT) % 74.6 % [facility] IMM GRAN % 0.30 % [facility] LYMPH % 18.7 % [facility] MONO % 4.8 % [facility] EOS % 1.1 % [facility] BASO % 0.5 % [facility] GRAN MAT x10^3(ANC) 4.71 1.99 - 6.95 [facility] 10*3/uL [facility] IMM GRAN x10^3 <0.03 0.00 - 0.06 [facility] 10*3/uL [facility] LYMPH x10^3 1.18 1.09 - 3.23 [facility] 103/uL [facility] MONO x10^3 0.30 (L) 0.36 - 1.02 [place] [address]*3/uL [facility] EOS x10^3 0.07 0.06 - 0.53 [facility] 10*3/uL [facility] BASO x10^3 0.03 0.01 - 0.09 [place] [address]/uL [facility] LABORAT[facility] Specimen Blood - ARM, RIGHT Performing Organization Address [facility] Phone Number [facility] CLIA: [id number] [place], [place] [address] LABORATORY [address] POCT GLUCOSE (AUTOMATED) (06/25/2020 8:44 PM LAVATORY ATTENDANT) [facility] POCT GLU 248 (H) 70 - 110 mg/dL [facility] Specimen Blood Performing Organization Address [facility] Phone Number [facility] CLIA: [id number] [place] [address] documented in this encounter Visit Diagnoses Diagnosis Acute on chronic pancreatitis - Primary Generalized abdominal pain Abdominal pain, generalized Hyperlipidemia, unspecified hyperlipidem ia type Depression, unspecified depression type documented in this encounter Administered Medications Medication Order MAR Action Action Date Dose Rate Site atorvastatin (LIPITOR) tablet 40 Given 06/28/2020 8:03 PM LAVATORY ATTENDANT 4 0 mg mg 40 mg, Oral, QHS, First dose on Wed06/26/20 at 2100, Until Discontinued, Routine Given 06/27/2020 8:29 PM LAVATORY ATTENDANT 40 mg Given 06/26/2020 8:01 PM LAVATORY ATTENDANT 40 mg busPIRone (BUSPAR) tablet 10 mg Given 06/29/2020 8:15 AM LAVATORY ATTENDANT 10 mg 10 mg, Oral, BID, First dose on Wed06/26/20 at 2000, Until Discontinued, Routine Given 06/28/2020 8:03 PM LAVATORY ATTENDANT 10 mg Given 06/28/2020 8:38 AM LAVATORY ATTENDANT 10 mg dextrose 50 % in water (D50W) injection 25 mL 25 mL, Slow IV Push, PRN, Starting Wed08/29/19 at 0723, Until Discontinued, ANA MARIA, Blood Glucose < or = 70 mg/dL and patien t is unable to swallow or has mental status changes. enoxaparin (LOVENOX) injection 40 mg Given 06/29/2020 8:06 AM LAVATORY ATTENDANT 40 mg Abdo men-SC 40 mg, Subcutaneous, DAILY, First dose on Wed06/26/20 at 1700, Until Discontinued, Routine Given 06/28/2020 8:34 AM LAVATORY ATTENDANT 40 mg Abdo men-SC Given 06/27/2020 8:49 AM LAVATORY ATTENDANT 40 mg Abdo men-SC FLUoxetine (PROZAC) capsule 20 mg Given 06/29/2020 8:06 AM LAVATORY ATTENDANT 20 mg 20 mg, Oral, DAILY, First dose on Wed06/28/20 at 1430, Until Discontinued, Routine Given 06/28/2020 3:49 PM LAVATORY ATTENDANT 20 mg gemfibroziL (LOPID) tablet 600 mg Given 06/29/2020 8:06 AM LAVATORY ATTENDANT 600 mg 600 mg, Oral, BID, First dose on Wed06/26/20 at 2000, Until Discontinued, Routine Given 06/28/2020 8:03 PM LAVATORY ATTENDANT 600 mg Given 06/28/2020 8:38 AM LAVATORY ATTENDANT 600 mg glucagon (GLUCAGEN DIAGNOSTIC KIT) injec tion 1 mg 1 mg, Intramuscular, PRN, Starting Wed08/29/19 at 0723, Until Discontinued, ANA MARIA, Blood Glucose < or = 70 mg/dL and patient is unable to swallow or has mental changes. insulin glargine (LANTUS U-100) injectio n 36 Units 36 Units, Subcutaneous, QHS, First dose (after last modification) on 06/29/20 at 2100, Until Discontinued, Routine ketorolac (TORADOL) injection 30 mg Given 06/29/2020 5:52 PM LAVATORY ATTENDANT 30 mg 30 mg, Slow IV Push, Q6HPRN, Starting Wed06/26/20 at 1015, Until Discontinued, Routine, Pain (scale 4-6), store team member approving Restricted medication: ELLIS ALMEIDA Given 06/27/2020 4:15 PM LAVATORY ATTENDANT 30 mg Given 06/27/2020 10:28 AM LAVATORY ATTENDANT 30 mg metoprolol tartrate (LOPRESSOR) tablet 2 5 mg Given 06/29/2020 8:06 AM LAVATORY ATTENDANT 25 mg 25 mg, Oral, BID, First dose on Padmini 06/27/20 at 2000, Until Discontinued, Routine Given 06/28/2020 8:03 PM LAVATORY ATTENDANT 25 mg Given 06/28/2020 8:38 AM LAVATORY ATTENDANT 25 mg morpHINE injection 2 mg Given 06/29/2020 2:21 PM LAVATORY ATTENDANT 2 mg 2 mg, Slow IV Push, Q6HPRN, Starting 06/29/20 at 0215, Until Discontinued, Routine, Pain (scale 7-10) Given 06/29/2020 8:06 AM LAVATORY ATTENDANT 2 mg NaCl 0.9% (NS) IV infusion 1,000 New Bag 06/29/2020 2:[address] 1,000 mL 100 mL/hr mL at 100 mL/hr, IV Infusion, CONTINUOUS, Starting Wed06/28/20 at 0830, Until Discontinued, Routine New Bag 06/28/2020 8:41 AM LAVATORY ATTENDANT 1,000 mL 100 mL/hr omega 8-wrj-ivh-fish oil (FISH OIL) Given 06/29/2020 2:24 PM CS T 1,000 mg capsule 1,000 mg 1,000 mg, Oral, TID, First dose on Padmini 06/27/20 at 1400, Until Discontinued, Routine, Reason for non-formulary use: PATIENT CURRENTLY TAKING NONFORMULARY PRODUCT, store team member approving Non-formulary medication: ELLIS ALMEIDA Given 06/29/2020 8:31 AM LAVATORY ATTENDANT 1,000 mg Given 06/28/2020 8:12 PM LAVATORY ATTENDANT 1,000 mg proCHLORperazine (COMPAZINE) 10 mg in NaCl Given 06/26/2020 8:1 5 PM LAVATORY ATTENDANT 10 mg 0.9% (NS) piggyback 10 mg, IV Piggyback, Q4HPRN, Starting Wed06/26/20 at 1015, Until Discontinued, 50 mL proMETHazine (PHENERGAN) 12.5 mg in NaCl Given 06/29/2020 9:38 AM LAVATORY ATTENDANT 12.5 mg 0.9% (NS) 50 mL IV piggyback 12.5 mg, IV Piggyback, Q4HPRN, Starting Wed06/26/20 at 0521, Until Discontinued, Routine, Nausea and Vomiting (N/V) Given 06/28/2020 12:32 AM LAVATORY ATTENDANT 12.5 mg Given 06/26/2020 9:50 AM LAVATORY ATTENDANT 12.5 mg Sliding Scale Insulin-Regular + Given 06/29/2020 5:53 PM LAVATORY ATTENDANT 1 Units Abdomen-SC Fsbg Testing Subcutaneous, AC+HS, First dose on Wed06/28/20 at 0730, Until Discontinued, Routine Given 06/29/2020 12:12 PM LAVATORY ATTENDANT 1 Units Righ t Arm Given 06/29/2020 8:07 AM LAVATORY ATTENDANT 1 Units Left Upper Arm-SC Medication Order MAR Action Action Date Dose Rate Site D5W 0.9% NaCl (NS) IV New Bag 06/27/2020 5:24 PM LAVATORY ATTENDANT 1,000 mL 1 25 mL/hr infusion 1,000 mL at 125 mL/hr, 1,000 mL, IV Infusion, CONTINUOUS, Starting Wed06/26/20 at 0815, Until Wed06/28/20 at 0721, ANA MARIA New Bag 06/27/2020 10:27 AM LAVATORY ATTENDANT 1,000 mL 125 mL/hr New Bag 06/27/2020 4:32 AM LAVATORY ATTENDANT 1,000 mL 175 mL/hr dextrose 50 % in water (D50W) injection 25 mL Given 06/26/2020 10:55 PM LAVATORY ATTENDANT 25 mL 25 mL, Slow IV Push, PRN, Starting Wed06/26/20 at 0148, Until Wed06/28/20 at 0726, ANA MARIA, Blood Glucose < or = 70 mg/dL and patient is unable to swallow or has mental status changes. Given 06/26/2020 9:05 PM LAVATORY ATTENDANT 25 mL dextrose 50 % in water (D50W) injection 50 mL Given 06/28/2020 12:00 AM LAVATORY ATTENDANT 50 mL 50 mL, Slow IV Push, ONCE, 1 dose, Wed06/28/20 at 0100, ANA MARIA FENTanyl PF (SUBLIMAZE (PF)) injection 100 Given 06/25 9:51 PM LAVATORY ATTENDANT 100 mcg mcg 100 mcg, Slow IV Push, ONCE, 1 dose, Wed06/25/20 at 2300, STAT FENTanyl PF (SUBLIMAZE (PF)) injection 100 Given 06/26 12:34 AM LAVATORY ATTENDANT 100 mcg mcg 100 mcg, Slow IV Push, ONCE, 1 dose, Wed06/26/20 at 0145, Routine FENTanyl PF (SUBLIMAZE (PF)) injection 75 Given 06/25/2020 9:09 PM LAVATORY ATTENDANT 75 mcg mcg 75 mcg, Slow IV Push, ONCE, 1 dose, Wed06/25/20 at 2200, Routine haloperidol lactate (HALDOL) injection 5 mg Given 06/28/2020 4:51 PM LAVATORY ATTENDANT 5 mg 5 mg, Slow IV Push, ONCE NOW, 1 dose, 06/28/20 at 1630, Routine insulin glargine (LANTUS Given 06/29/2020 8:07 AM LAVATORY ATTENDANT 15 Units Left Upper Arm-SC U-100) injection 15 Units 15 Units, Subcutaneous, ONCE, 1 dose, 06/29/20 at 0900, Routine insulin regular in 0.9 % Dose/Rate Verify 06/26/2020 8:00 PM LAVATORY ATTENDANT 8 Units/hr 8 mL/hr NaCl (MYXREDLIN) 100 unit/100 mL (1 unit/mL) RTU IV infusion 8 Units/hr (8 mL/hr), IV Infusion, TITRATE, Notify hospitalist to adjust insulin rate based on Triglyceride level, Starting 06/26/20 at 1016, If glucose < 250, start D5W and titrate to keep glucose 100-180, New Bag 06/26/2020 11:16 AM LAVATORY ATTENDANT 8 Units/hr 8 mL/hr insulin regular in 0.9 % NaCl New Bag 06/28/2020 1:21 AM LAVATORY ATTENDANT 3 Units/hr 3 mL/hr (MYXREDLIN) 100 unit/100 mL (1 unit/mL) RTU IV infusion 5 Units/hr (5 mL/hr), IV Infusion, TITRATE, Notify hospitalist to adjust insulin rate based on Triglyceride level, Starting Padmini 06/27/20 at 0511, If glucose < 250, start D5W and titrate to keep glucose 100-180, Rate Change 06/27/2020 11:53 PM LAVATORY ATTENDANT 3 Units/hr 3 mL/hr New Bag 06/27/2020 5:28 AM LAVATORY ATTENDANT 5 Units/hr 5 mL/hr iohexol (OMNIPAQUE 350 BULK-150 mL) Given 06/25/2020 10:45 PM CS T 120 mL injection 120 mL 120 mL, Intravenous, ONCE, 1 dose, 06/25/20 at 2245, Routine KCL (KLOR-CON M20) tablet 40 mEq Given 06/28/2020 8:38 AM LAVATORY ATTENDANT 40 mEq 40 mEq, Oral, ONCE, 1 dose, Wed06/28/20 at 0830, Routine LORazepam (ATIVAN) injection 1 Given 06/28/2020 2:16 PM LAVATORY ATTENDANT 1 m g Right Deltoid-IM mg 1 mg, Slow IV Push, ONCE, 1 dose, Wed06/28/20 at 1500, Routine morpHINE injection 2 mg Given 06/26/2020 2:31 AM LAVATORY ATTENDANT 2 mg 2 mg, Slow IV Push, Q4HPRN, Starting Wed06/26/20 at 0144, Until Wed06/26/20 at 0521, Routine, Pain (scale 7-10) morpHINE injection 2 mg Given 06/29/2020 1:57 AM LAVATORY ATTENDANT 2 mg 2 mg, Slow IV Push, Q4HPRN, Starting Padmini 06/27/20 at 0512, Until 06/29/20 at 0204, Routine, Pain (scale 7-10) Given 06/28/2020 8:59 PM LAVATORY ATTENDANT 2 mg Given 06/28/2020 4:51 PM LAVATORY ATTENDANT 2 mg morpHINE injection 4 mg Given 06/26/2020 9:44 AM LAVATORY ATTENDANT 4 mg 4 mg, Slow IV Push, Q4HPRN, Starting Wed06/26/20 at 0521, Until Wed06/26/20 at 1015, Routine, Pain (scale 7-10) Given 06/26/2020 5:37 AM LAVATORY ATTENDANT 4 mg morpHINE injection 4 mg Given 06/26/2020 11:36 PM LAVATORY ATTENDANT 4 mg 4 mg, Slow IV Push, Q3HPRN, Starting Wed06/26/20 at 1030, Until Padmini 06/27/20 at 0129, Routine, Pain (scale 7-10) Given 06/26/2020 8:02 PM LAVATORY ATTENDANT 4 mg Given 06/26/2020 4:56 PM LAVATORY ATTENDANT 4 mg NaCl 0.9% (NS) IV infusion 1,000 New Bag 06/25/2020 9:[address] 1,000 mL 999 mL/hr mL at 999 mL/hr, Intravenous, CONTINUOUS, Starting Wed06/25/20 at 2200, Until Wed06/26/20 at 0801, Routine NaCl 0.9% (NS) IV infusion 1,000 New Bag 06/26/2020 2:[address] 1,000 mL 125 mL/hr mL at 125 mL/hr, IV Infusion, CONTINUOUS, Starting Wed06/26/20 at 0200, Until Wed06/26/20 at 0801, Routine NaCl 0.9% (NS) IV infusion Dose/Rate Verify 06/26/2020 12:29 PM LAVATORY ATTENDANT 125 mL/hr 1,000 mL at 125 mL/hr, 1,000 mL, IV Infusion, CONTINUOUS, Starting Wed06/26/20 at 0815, Until Padmini 06/27/20 at 2351, ANA MARIA omega-3 fatty acids (FISH OIL) capsule Given 06/27/2020 8:50 AM LAVATORY ATTENDANT 1,000 mg 1,000 mg 1,000 mg, Oral, TID, First dose on Wed06/26/20 at 2000, Until Discontinued, Routine Given 06/26/2020 8:00 PM LAVATORY ATTENDANT 1,000 mg ondansetron (ZOFRAN (PF)) injection 4 mg Given 06/25/2020 9:10 PM LAVATORY ATTENDANT 4 mg 4 mg, Slow IV Push, ONCE, 1 dose, Wed06/25/20 at 2200, ANA MARIA proMETHazine (PHENERGAN) 25 mg in NaCl 0.9% Given 06/25/2020 11:15 PM LAVATORY ATTENDANT 25 mg (NS) 50 mL piggyback 25 mg, IV Piggyback, ONCE, 1 dose, Wed06/25/20 at 2315, 50 mL proMETHazine (PHENERGAN) 25 mg in NaCl 0.9% Given 06/26/2020 1:45 AM LAVATORY ATTENDANT 25 mg (NS) 50 mL piggyback 25 mg, IV Piggyback, ONCE, 1 dose, Wed06/26/20 at 0145, 50 mL Sliding Scale Insulin - Lispro Given 06/26/2020 5:39 AM LAVATORY ATTENDANT 2 U nits Right Arm (HumaLOG) + Fsbg Testing Subcutaneous, Q6H, First dose on Wed06/26/20 at 0600, Until Discontinued, Routine documented in this encounter Additional Health Concerns Infection Onset Date Last Indicated Resolved Time COVID-19 Rule Out 06/25/2020 06/25/2020 06/25/2020 9: 44 PM LAVATORY ATTENDANT documented as of this encounter Insurance Payer Benefit Plan Subscriber ID Effective Dates Phone Address Type / Group BCBS [facility] [id number] 2019-Prese [phone] [address] PPO/[place] - OUT OF nt 7 [id number] [place] [address] documented as of this encounter Advance Directives Type Date Recorded 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
== END 2020-07-28 14:30 | disposition left against medical advice (07) ==
LOC: ER 14:21
DX: Z02.9 Encounter for administrative examinations, unspecified (principal)

== ENCOUNTER 2021-09-20 19:47 | Emergency (ER) | payer BC ==
--- OUTSIDE RECORDS SUMMARY | 2021-09-20 19:53 | XMS REPORT | Continuity of Care Document ---
:1980 Author Organization [facility] t Address [address] [place] [address] Care Team Providers Name Role Phone KellyShayla Frausto Attending Clinician Doctor Unassigned, Name Attending Clinician Unavailable Cortney QUISPE R Attending Clinician Madeline MCDONNELL, M Attending Clinician Concepción FLORES, S Attending Clinician Rebeca FLORES Attending Clinician Freida FLORES, H Attending Clinician Noel GUAN Attending Clinician Unavailable Rebeca FLORES Admitting Clinician Payers Payer Name Policy Type Policy Number Effective Date Expiration Date S [facility] - [id number] 2019 00:00:00 OUT OF STATE Problems Condition Condition Condition Status Onset Resolution Last Treating Co mments Source Name Details Category Date Date Treatment Clinician Date Acute on Acute on Disease Active 2019-07 Unive rs chronic chronic 2-16 ity of pancreatit pancreatit [place] Branch Hypertrigl Hypertrigl Disease Active U nivers yceridemia yceridemia 6-20 it y of 00:00: [place] 00 Medical Branch Type 2 Type 2 Disease Active Univers diabetes diabetes 6-20 ity of mellitus mellitus 00:00: [place] with with 00 Medical complicati complicati Br anch on, with on, with long-term long-term current current use of use of insulin insulin Diplopia Diplopia Disease Active 2014-07 Unive rs 0-09 ity of 00:00: [place] [facility] Diabetes Diabetes Disease Active Overview: Un cb mellitus mellitus -24 ICD10 ity of type 2, type 2, 00:00: Diagnosis [place] uncontroll uncontroll 00 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, ed, 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 without without Utility complicati complicati ons ons HLD HLD Disease Active Univers (hyperlipi (hyperlipi 04-04 it y of demia) demia) 00:00: [place] 00 Medical Branch Essential Essential Disease Active Uni vers hypertensi hypertensi 04-04 it y of on, benign on, benign 00:00: [facility] Branch Vitamin D Vitamin D Disease Active Overview: Univers deficiency deficiency 04-04 ICD10 it y of 00:00: Diagnosis [place] 00 Term Medical 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 Utility Allergies, Adverse Reactions, Alerts Allergy Allergy Status Severity Reaction(s) Onset Inactive Treating Comm ents Source Name Type Date Date Clinician NO KNOWN Drug Active Univers ALLERGIE Class ity of S [facility] Social History Social Habit Start Date Stop Date Quantity Comments Source History of Snuff User University of tobacco use [facility] Alcohol Comment occasional Universit y of [facility] Exposure to Not sure [facility] SARS-CoV-[address] [facility] (event) [place] Alcohol intake 2020-06-25 2020-06-25 Current University of 00:00:00 00:00:00 non-drinker of [facility] alcohol (finding) [place] Tobacco use and 2020-06-25 2020-06-25 Current user Univers ity of exposure 00:00:00 00:00:00 [facility] Sex Ass[birth year] At [birth year] Universit y of 00:00:00 00:00:00 [facility] Smoking Status Start Date Stop Date Source Never smoker [facility] Medications Ordered Filled Start Stop Current Ordering Indication Dosage Frequency Signature Comments Components Source Medication Medication Date Date Medication? Clinician (SIG) Name Name morpHINE 2020- No 2mg 2 mg, Slow Un cb injection 2 5-08 05-08 IV Push, ity of mg 22:00: 22:00 ONCE, 1 [place] 00 :00 dose, Sat Medical 11/16/20 at Branch 1700, STAT predniSONE 2020- No 20mg 20 mg, Univ ers (DELTASONE) 11-16-08 Oral, ity of tablet 20 21:30: 20:49 ONCE, 1 [place] mg 00 :00 dose, Sat Medical 11/16/20 at Branch 1630, ANA MARIA amoxicillin 2020- No 1{tbl} 1 tablet, Univers -clavulanat 11-16-08 Oral, ity of e 21:30: 20:49 ONCE, 1 [place] (AUGMENTIN) 00 :00 dose, Sat Med ical 875-125 mg 11/16/20 at Bran per tablet 1630, 1 tablet Routine
Reason for Anti-Infec tive: Documented Infection< br>Documen j luis Infection Site: Abdominal< br>Duratio n of Therapy: 10 days iopamidol 2020- No [id number] 100mL 100 mL, Univers (ISOVUE 11-16 Intravenou ity o f 370-500 mL) 20:45: 19:30 s, ONCE, 1 [place] injection 00 :00 dose, Sat Medic al 100 mL 11/16/20 at Branch 1545, Routine morpHINE 2020- No 4mg 4 mg, Slow Un cb injection 4 11-16 IV Push, ity of mg 20:15: 19:12 ONCE, 1 [place] 00 :00 dose, Sat Medical 11/16/20 at Branch 1515, STAT ondansetron 2020- No 4mg 4 mg, Slow Univers (ZOFRAN 11-16 IV Push, ity of (PF)) 19:30: 18:28 ONCE, 1 [place] injection 4 00 :00 dose, Sat Med ical mg 11/16/20 at Branch 1430, ANA MARIA NaCl 0.9% 2020- No 1000mL at 999 Uni vers (NS) bolus 11-16-08 mL/hr, ity of infusion 19:30: 21:16 1,000 mL, [place] 1,000 mL 00 :00 IV Medical Infusion, Branch ONCE, 1 dose, 11/16/20 at 1430, STAT amoxicillin 2020- Yes [id number] 1{tbl} Take 1 Univers -clavulanat 5-08 tablet by ity of e 875-125 00:00: mouth [place] mg per 00 every 12 Medical tablet (twelve) Branch hours. predniSONE Yes [id number] 1 PO BID x Univers 20 mg 5-08 4 days ity of tablet 00:00: [place] 00 Medical Branch ibuprofen 2020- No 800mg 800 mg, Uni vers (IBU) 1-17 -17 Oral, ity of tablet 800 23:30: 22:44 ONCE, 1 [place] mg 00 :00 dose, [facility] 07/28/20 at Branch 1730, ANA MARIA Diclofenac Yes [id number] Apply to Univers Sodium 1-17 area(s) 2 ity of (VOLTAREN) 00:00: (two) [place] 1 % gel 00 times Medical daily. Branch Diclofenac Yes [id number] Apply to Univers Sodium 1-17 area(s) 2 ity of (VOLTAREN) 00:00: (two) [place] 1 % gel 00 times Medical daily. Branch Diclofenac Yes [id number] Apply to Univers Sodium 1-17 area(s) 2 ity of (VOLTAREN) 00:00: (two) [place] 1 % gel 00 times Medical daily. Branch insulin 2019-07 Yes 36U 36 Units, Unive rs glargine 2-20 Subcutaneo ity o f (LANTUS 03:00: us, Q, [place] U-100) 00 First dose Medical injection (after Branch 36 Units last modificati on) on 06/29/20 at 2100, Until Discontinu ed, Routine gemfibroziL 2019-07 Yes 600mg Take 600 U nivers 600 mg 2-20 mg by ity of tablet 01:33: mouth 2 [place] 08 (two) Medical times Branch daily before breakfast and dinner. metoprolol 2019-07 Yes 25mg Take 25 mg U nivers tartrate 25 2-20 by mouth 2 it y of mg tablet 01:33: (two) [place] 08 times Medical daily. Branch Pantoprazol 2019-07 Yes 40mg Take 40 mg Univers e 40 mg 2-20 by mouth ity of delayed-rel 01:33: daily. [place] ease 08 Medical suspension Branch busPIRone 2019-07 Yes 10mg Take 10 mg Un cb 10 mg 2-20 by mouth 2 ity of tablet 01:33: (two) [place] 08 times Medical daily. Branch niacin 500 2019-07 Yes 500mg Take 500 Un cb mg tablet 2-20 mg by ity of 01:33: mouth [place] 08 daily with Medical breakfast. Branch lipase-prot 2019- Yes [id number] Take Univ ers ease-amylas 2-20 36,000 ity of e (CREON) 01:33: Units by [place] 36,000-114, 08 mouth with Me dical 000- all meals. Branch 180,000 Take 2 unit CpDR capsules by mouth with meals and 1 with each snack. losartan 25 2019- Yes 25mg Take 25 mg Univers mg tablet 2-20 by mouth ity of 01:33: daily. [place] [address] Medical Branch vortioxetin 2019- Yes 10mg Take 10 mg Univers e 10 mg Tab 2-20 by mouth ity of 01:33: at [place] [address] bedtime. Medical Branch gemfibroziL 2019- Yes 600mg Take 600 U nivers 600 mg 2-20 mg by ity of tablet 01:33: mouth 2 [place] 08 (two) Medical times Branch daily before breakfast and dinner. metoprolol 2020- Yes 25mg Take 25 mg U nivers tartrate 25 2-20 by mouth 2 it y of mg tablet 01:33: (two) [place] [address] times Medical daily. Branch Pantoprazol 2019-07 Yes 40mg Take 40 mg Univers e 40 mg 2-20 by mouth ity of delayed-rel 01:33: daily. [place] ease 08 Medical suspension Branch busPIRone 2019- Yes 10mg Take 10 mg Un cb 10 mg 2-20 by mouth 2 ity of tablet 01:33: (two) [place] [address] times Medical daily. Branch niacin 500 2019-07 Yes 500mg Take 500 Un cb mg tablet 2-20 mg by ity of 01:33: mouth [place] [address] daily with Medical breakfast. Branch lipase-prot 2019- Yes [id number] Take Univ ers ease-amylas 2-20 36,000 ity of e (CREON) 01:33: Units by [place] 36,000-114, 08 mouth with Me dical 000- all meals. Branch 180,000 Take 2 unit CpDR capsules by mouth with meals and 1 with each snack. losartan 25 2019- Yes 25mg Take 25 mg Univers mg tablet 2-20 by mouth ity of 01:33: daily. [place] [address] Medical Branch vortioxetin 2019- Yes 10mg Take 10 mg Univers e 10 mg Tab 2-20 by mouth ity of 01:33: at [place] [address] bedtime. Medical Branch gemfibroziL 2019- Yes 600mg Take 600 U nivers 600 mg 2-20 mg by ity of tablet 01:33: mouth 2 [place] [address] (two) Medical times [place] daily before breakfast and dinner. metoprolol 2019- Yes 25mg Take 25 mg U nivers tartrate 25 2-20 by mouth 2 it y of mg tablet 01:33: (two) [place] [address] times Medical daily. Branch Pantoprazol 2019- Yes 40mg Take 40 mg Univers e 40 mg 2-20 by mouth ity of delayed-rel 01:33: daily. [place] ease 08 Medical suspension Branch busPIRone 2019-07 Yes 10mg Take 10 mg Un cb 10 mg 2-20 by mouth 2 ity of tablet 01:33: (two) [place] [address] times Medical daily. Branch niacin 500 2019- Yes 500mg Take 500 Un cb mg tablet 2-20 mg by ity of 01:33: mouth [place] 08 daily with Medical breakfast. Branch lipase-prot 2019- Yes [id number] Take Univ ers ease-amylas 2-20 36,000 ity of e (CREON) 01:33: Units by [facility] s 36,000-114, 08 mouth with Me dical 000- all meals. Branch 180,000 Take 2 unit CpDR capsules by mouth with meals and 1 with each snack. losartan 25 2019- Yes 25mg Take 25 mg Univers mg tablet 2-20 by mouth ity of 01:33: daily. [place] [address] Medical Branch vortioxetin 2019- Yes 10mg Take 10 mg Univers e 10 mg Tab 2-20 by mouth ity of 01:33: at [place] [address] bedtime. Medical Branch gemfibroziL 2019- Yes 600mg Take 600 U nivers 600 mg 2-20 mg by ity of tablet 01:33: mouth 2 [place] [address] (two) Medical times [place] daily before breakfast and dinner. metoprolol 2019- Yes 25mg Take 25 mg U nivers tartrate 25 2-20 by mouth 2 it y of mg tablet 01:33: (two) [place] [address] times Medical daily. Branch Pantoprazol 2019- Yes 40mg Take 40 mg Univers e 40 mg 2-20 by mouth ity of delayed-rel 01:33: daily. [place] ease 08 Medical suspension Branch busPIRone 2019-07 Yes 10mg Take 10 mg Un cb 10 mg 2-20 by mouth 2 ity of tablet 01:33: (two) [place] 08 times Medical daily. Branch niacin 500 2019-07 Yes 500mg Take 500 Un cb mg tablet 2-20 mg by ity of 01:33: mouth [place] 08 daily with Medical breakfast. Branch lipase-prot 2019- Yes [id number] Take Univ ers ease-amylas 2-20 36,000 ity of e (CREON) 01:33: Units by [place] 36,000-114, 08 mouth with Me dical 000- all meals. Branch 180,000 Take 2 unit CpDR capsules by mouth with meals and 1 with each snack. losartan 25 2019- Yes 25mg Take 25 mg Univers mg tablet 2-20 by mouth ity of 01:33: daily. [place] [address] Medical Branch vortioxetin 2019- Yes 10mg Take 10 mg Univers e 10 mg Tab 2-20 by mouth ity of 01:33: at [place] 08 bedtime. Medical Branch gemfibroziL 2019- Yes 600mg Take 600 U nivers 600 mg 2-20 mg by ity of tablet 01:33: mouth 2 [place] 08 (two) Medical times Branch daily before breakfast and dinner. metoprolol 2019- Yes 25mg Take 25 mg U nivers tartrate 25 2-20 by mouth 2 it y of mg tablet 01:33: (two) [place] 08 times Medical daily. Branch Pantoprazol 2019-07 Yes 40mg Take 40 mg Univers e 40 mg 2-20 by mouth ity of delayed-rel 01:33: daily. [place] ease 08 Medical suspension Branch busPIRone 2019- Yes 10mg Take 10 mg Un cb 10 mg 2-20 by mouth 2 ity of tablet 01:33: (two) [place] 08 times Medical daily. Branch niacin 500 2019-07 Yes 500mg Take 500 Un cb mg tablet 2-20 mg by ity of 01:33: mouth [place] 08 daily with Medical breakfast. Branch lipase-prot 2019- Yes [id number] Take Univ ers ease-amylas 2-20 36,000 ity of e (CREON) 01:33: Units by [employer] 36,000-114, 08 mouth with Me dical 000- all meals. Branch 180,000 Take 2 unit CpDR capsules by mouth with meals and 1 with each snack. losartan 25 2019-07 Yes 25mg Take 25 mg Univers mg tablet 2-20 by mouth ity of 01:33: daily. [place] [address] Medical Branch vortioxetin 2019-07 Yes 10mg Take 10 mg Univers e 10 mg Tab 2-20 by mouth ity of 01:33: at [place] [address] bedtime. Medical Branch gemfibroziL 2019-07 Yes 600mg Take 600 U nivers 600 mg 2-20 mg by ity of tablet 01:33: mouth 2 [place] 08 (two) Medical times Branch daily before breakfast and dinner. metoprolol 2019-07 Yes 25mg Take 25 mg U nivers tartrate 25 2-20 by mouth 2 it y of mg tablet 01:33: (two) [place] [address] times Medical daily. Branch Pantoprazol 2019-07 Yes 40mg Take 40 mg Univers e 40 mg 2-20 by mouth ity of delayed-rel 01:33: daily. [place] ease 08 Medical suspension Branch busPIRone 2019-07 Yes 10mg Take 10 mg Un cb 10 mg 2-20 by mouth 2 ity of tablet 01:33: (two) [place] [address] times Medical daily. Branch niacin 500 2019-07 Yes 500mg Take 500 Un cb mg tablet 2-20 mg by ity of 01:33: mouth [place] [address] daily with Medical breakfast. Branch lipase-prot 2019-07 Yes [id number] Take Univ ers ease-amylas 2-20 36,000 ity of e (CREON) 01:33: Units by [place] [place] 36,000-114, 08 mouth with Me dical 000- all meals. Branch 180,000 Take 2 unit CpDR capsules by mouth with meals and 1 with each snack. losartan 25 2019-07 Yes 25mg Take 25 mg Univers mg tablet 2-20 by mouth ity of 01:33: daily. [place] [address] Medical Branch vortioxetin 2019-07 Yes 10mg Take 10 mg Univers e 10 mg Tab 2-20 by mouth ity of 01:33: at [place] [address] bedtime. Medical Branch insulin 2020-1 2020- No 15U 15 Units, Univ ers glargine 08-30 Subcutaneo ity of (LANTUS 15:00: 14:07 us, ONCE, [place] U-100) 00 :00 1 dose, Medical injection Sat [place] 15 Units 06/29/20 at 0900, Routine morpHINE 2019-07 Yes 2mg 2 mg, Slow Uni vers injection 2 08-30 IV Push, ity of mg 08:15: Q6HPRN, [place] 00 Starting Medical Sat [place] 06/29/20 at 0215, Until Discontinu ed, Routine, Pain (scale 7-10) atorvastati 2019-07- No [id number] 40mg Take 1 Univers n 40 mg 08-30 tablet by ity of tablet 00:00: 05:59 mouth at [place] 00 :00 bedtime Medical for 30 Branch days. atorvastati 2019-07- No [id number] 40mg Take 1 Univers n 40 mg 08-30 tablet by ity of tablet 00:00: 05:59 mouth at [place] [facility] Branch days. atorvastati 2019-07- No [id number] 40mg Take 1 Univers n 40 mg 08-30 tablet by ity of tablet 00:00: 05:59 mouth at [place] [facility] Medical for 30 Branch days. atorvastati 2019-07- No [id number] 40mg Take 1 Univers n 40 mg 08-30 tablet by ity of tablet 00:00: 05:59 mouth at [place] 00 :00 [facility] Medical for 30 Branch days. haloperidol 2019-07- No 5mg 5 mg, Slow Univers lactate 08-29 IV Push, ity of (HALDOL) 22:30: 22:51 ONCE NOW, [place] injection 5 00 :00 1 dose, Medic al mg [facility] 06/28/20 at 1630, Routine LORazepam 2019-07- No 1mg 1 mg, Slow U nivers (ATIVAN) 08-29 IV Push, ity of injection 1 21:00: 20:16 ONCE, 1 [place] mg 00 :00 dose, Fri Medical 06/28/20 Branch at 1500, Routine FLUoxetine 2020-1 Yes 20mg 20 mg, Unive rs (PROZAC) 2-18 Oral, ity of capsule 20 20:30: DAILY, [place] mg 00 First dose Medical on Fri Branch 06/28/20 at 1430, Until Discontinu ed, Routine NaCl 0.9% 2019-07 Yes 1000mL at 100 Univ ers (NS) IV 2-18 mL/hr, IV ity of infusion 14:30: Infusion, [place] 1,000 mL 00 CONTINUOUS Medic al , Starting Branch 06/28/20 at 0830, Until Discontinu ed, Routine KCL 2019-07 2020- No 40meq 40 mEq, Univers (KLOR-CON 2-18 - Oral, ity of M20) tablet 14:30: 14:38 ONCE, 1 [place] 40 mEq 00 :00 dose, Wed Medical 06/28/20 Branch at 0830, Routine Sliding 2019-07 Yes Subcutaneo Univ ers Scale 2-18 us, AC+HS, ity of Insulin-Reg 13:30: First dose [place] ular + Fsbg 00 on Wed Medica l Testing 06/28/20 Branch at 0730, Until Discontinu ed, Routine glucagon 2019-07 Yes 1mg 1 mg, Univers (GLUCAGEN -18 Intramuscu ity of DIAGNOSTIC 13:23: lar, PRN, [place] KIT) 08 Starting Medical injection 1 Wed Branch mg 06/28/20 at 0723, Until Discontinu ed, ANA MARIA, Blood Glucose < or = 70 mg/dL and patient is unable to swallow or has mental changes. dextrose 50 2019-07 Yes 25mL 25 mL, Univ ers % in water 18 Slow IV ity of (D50W) 13:23: Push, PRN, [place] injection 08 Starting Medica l 25 mL Fri Branch 06/28/20 at 0723, Until Discontinu ed, ANA MARIA, Blood Glucose < or = 70 mg/dL and patient is unable to swallow or has mental status changes. dextrose 50 2019-07 2020- No 50mL 50 mL, Uni vers % in water 18 06-28 Slow IV ity o f (D50W) 07:00: 06:00 Push, [place] injection 00 :00 ONCE, 1 Medical 50 mL dose, Fri Branch 06/28/20 at 0100, ANA MARIA metoprolol 2019-07 Yes 25mg 25 mg, Unive rs tartrate -18 Oral, BID, ity o f (LOPRESSOR) 02:00: First dose [place] tablet 25 00 on [facility] Medical mg 06/27/20 Branch at 2000, Until Discontinu ed, Routine omega 2019-07 Yes 1000mg 1,000 mg, Unive rs 3-dha-epa-f -17 Oral, TID, it y of beckie oil 20:00: First dose [place] (FISH OIL) 00 on [facility] Medical capsule 06/27/20 Branch 1,000 mg at 1400, Until Discontinu ed, Routine
Reason for non-formul caitlyn use: PATIENT CURRENTLY TAKING NONFORMULA RY PRODUCT
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 Non-formul caitlyn medication : ELLIS ALMEIDA morpHINE 2019-07- No 2mg 2 mg, Slow Un cb injection 2 08-28 IV Push, ity of mg 11:12: 08:04 Q4HPRN, [place] 04 :22 Starting Medical [facility] Branch 06/27/20 at 0512, Until 06/29/20 at 0204, Routine, Pain (scale 7-10) insulin 2019-07 2020- No 5U/h 5 Units/hr Uni vers regular in 08-28 (5 mL/hr), it y of 0.9 % NaCl 11:11: 13:21 IV [place] (MYXREDLIN) 38 :56 Infusion, Med ical 100 TITRATE, Branch unit/100 mL Notify (1 unit/mL) hospitalis RTU IV t to infusion adjust insulin rate based on Triglyceri de level, Starting [facility] 06/27/20 at 0511
If glucose < 250, start D5W and titrate to keep glucose 100-180
atorvastati 2019-07 Yes 40mg 40 mg, Univ ers n (LIPITOR) 2-17 Oral, QHS, it y of tablet 40 03:00: First dose [place] mg 00 on [facility] 06/26/20 Branch at 2100, Until Discontinu ed, Routine gemfibroziL 2019-07 Yes 600mg 600 mg, Un cb (LOPID) 2-17 Oral, BID, ity of tablet 600 02:00: First dose [place] mg 00 on [facility] 06/26/20 Branch at 2000, Until Discontinu ed, Routine busPIRone 2019-07 Yes 10mg 10 mg, Univer s (BUSPAR) 17 Oral, BID, ity o f tablet 10 02:00: First dose [place] mg 00 on [facility] Medical 06/26/20 Branch at 2000, Until Discontinu ed, Routine enoxaparin 2019-07 Yes 40mg 40 mg, Unive rs (LOVENOX) 08-27 Subcutaneo ity of injection 23:00: us, DAILY, [place] 40 mg 00 First dose Medical on [facility] Branch 06/26/20 at 1700, Until Discontinu ed, Routine morpHINE 2019-07 No 4mg 4 mg, Slow Un cb injection 4 08-27 IV Push, ity of mg 16:30: 07:29 Q3HPRN, [place] 00 :00 Starting Medical [facility] Branch 06/26/20 at 1030, Until Padmini 06/27/20 at 0129, Routine, Pain (scale 7-10) insulin 2019-07 8U/h 8 Units/hr Uni vers regular in 08-27 (8 mL/hr), it y of 0.9 % NaCl 16:16: 11:12 IV [place] (MYXREDLIN) 21 :30 Infusion, Med ical 100 TITRATE, Branch unit/100 mL Notify (1 unit/mL) hospitalis RTU IV t to infusion adjust insulin rate based on Triglyceri de level, Starting [facility] 06/26/20 at 1016
If glucose < 250, start D5W and titrate to keep glucose 100-180
proCHLORper 2019-07 Yes 10mg 10 mg, IV U nivers azine 16 Piggyback, ity of (COMPAZINE) 16:15: Q4HPRN, [place] 10 mg in 52 Starting Medical NaCl 0.9% [facility] Branch (NS) 06/26/20 piggyback at 1015, Until Discontinu ed, 50 mL ketorolac 2019-07 Yes 30mg 30 mg, Univer s (TORADOL) 2-16 Slow IV ity of injection 16:15: Push, [place] 30 mg 35 Q6HPRN, Medical Starting Branch [facility] 06/26/20 at 1015, Until Discontinu ed, Routine, Pain (scale 4-6)
Fa culty member approving Restricted medication : ELLIS ALMEIDA NaCl 0.9% 2019-07- No 1000mL at 125 Uni vers (NS) IV 2-16 12-18 mL/hr, ity of infusion 14:15: 05:51 1,000 mL, [place] 1,000 mL 00 :27 IV Medical Infusion, Branch CONTINUOUS , Starting 06/26/20 at 0815, Until Padmini 06/27/20 at 2351, ANA MARIA D5W 0.9% 2019-07- No 1000mL at 125 Univ ers NaCl (NS) 2-16 12-18 mL/hr, ity of IV infusion 14:15: 13:21 1,000 mL, [place] 1,000 mL 00 :40 IV Medical Infusion, Branch CONTINUOUS , Starting 06/26/20 at 0815, Until 06/28/20 at 0721, ANA MARIA Sliding 2019-07 2020- No Subcutaneo Uni vers Scale -16 -16 us, Q6H, ity of Insulin - 12:00: 21:57 First dose [place] Lispro 00 :55 on Wed Medical (HumaLOG) + 06/26/20 Bran ch Fsbg at 0600, Testing Until Discontinu ed, Routine proMETHazin 2019-07 Yes 12.5mg 12.5 mg, Univers e 16 IV ity of (PHENERGAN) 11:21: Piggyback, [place] 12.5 mg in 28 Q4HPRN, Medica l NaCl 0.9% Starting Branch (NS) 50 mL Wed IV 06/26/20 piggyback at 0521, Until Discontinu ed, Routine, Nausea and Vomiting (N/V) morpHINE 2019-07- No 4mg 4 mg, Slow Un cb injection 4 - 12-16 IV Push, ity of mg 11:21: 16:15 Q4HPRN, [place] 11 :46 Starting Medical Wed Branch 06/26/20 at 0521, Until Wed06/26/20 at 1015, Routine, Pain (scale 7-10) NaCl 0.9% 2019-07- No 1000mL at 125 Uni vers (NS) IV 2-16 12-16 mL/hr, IV ity of infusion 08:00: 14:01 Infusion, [place] 1,000 mL 00 :34 CONTINUOUS Medic al , Starting Branch 06/26/20 at 0200, Until Wed06/26/20 at 0801, Routine dextrose 50 2019-07 No 25mL 25 mL, Uni vers % in water 08-27 Slow IV ity o f (D50W) 07:48: 13:26 Push, PRN, [place] injection 20 :23 Starting Medica l 25 mL Wed Branch 06/26/20 at 0148, Until Wed06/28/20 at 0726, ANA MARIA, Blood Glucose < or = 70 mg/dL and patient is unable to swallow or has mental status changes. proMETHazin 2019-07- No 25mg 25 mg, IV Univers e 08-27 Piggyback, ity of (PHENERGAN) 07:45: 07:45 ONCE, 1 [place] 25 mg in 00 :00 dose, Wed Medica l NaCl 0.9% 06/26/20 Branch (NS) 50 mL at 0145, piggyback 50 mL FENTanyl PF 2019-07- No 100ug 100 mcg, Univers (SUBLIMAZE 08-27 Slow IV ity o f (PF)) 07:45: 06:34 Push, [place] injection 00 :00 ONCE, 1 Medical 100 mcg dose, [facility] Branch 06/26/20 at 0145, Routine morpHINE 2019-07- No 2mg 2 mg, Slow Un cb injection 2 08-27 IV Push, ity of mg 07:44: 11:21 Q4HPRN, [place] 30 :45 Starting Medical [facility] Branch 06/26/20 at 0144, Until Wed06/26/20 at 0521, Routine, Pain (scale 7-10) acetaminoph 2019-07 Yes 650mg 650 mg, Un cb en 08-27 Oral, ity of (TYLENOL) 07:44: Q6HPRN, [place] tablet 650 20 Starting Medic al mg [facility] Branch 06/26/20 at 0144, Until Discontinu ed, Routine, Pain (scale 1-3) proMETHazin 2019-07 2020- No 25mg 25 mg, IV Univers e 08-27 Piggyback, ity of (PHENERGAN) 05:15: 05:15 ONCE, 1 [place] 25 mg in 00 :00 dose, Tue Medica l NaCl 0.9% 06/25/20 Branch (NS) 50 mL at 2315, piggyback 50 mL FENTanyl PF 2019-07- No 100ug 100 mcg, Univers (SUBLIMAZE 08-27 Slow IV ity o f (PF)) 05:00: 03:51 Push, [place] injection 00 :00 ONCE, 1 Medical 100 mcg dose, Tue Branch 06/25/20 at 2300, STAT iohexol 2019-07- No 120mL 120 mL, Unive rs (OMNIPAQUE 08-27 Intravenou it y of 350 04:45: 04:45 s, ONCE, 1 [place] BULK-150 00 :00 dose, Tue Medica l mL) 06/25/20 Branch injection at 2245, 120 mL Routine NaCl 0.9% 2019-07- No 1000mL at 999 Uni vers (NS) IV 08-27 mL/hr, ity of infusion 04:00: 14:01 Intravenou [place] 1,000 mL 00 :29 s, Medical CONTINUOUS Branch , Starting Wed06/25/20 at 2200, Until Wed06/26/20 at 0801, Routine ondansetron 2019-07- No 4mg 4 mg, Slow Univers (ZOFRAN 08-27 IV Push, ity of (PF)) 04:00: 03:10 ONCE, 1 [place] injection 4 00 :00 dose, Tue Med ical mg 06/25/20 Branch at 2200, ANA MARIA FENTanyl PF 2019-07- No 75ug 75 mcg, Un cb (SUBLIMAZE 08-27 Slow IV ity o f (PF)) 04:00: 03:09 Push, [place] injection 00 :00 ONCE, 1 Medical 75 mcg dose, Tue Branch 06/25/20 at 2200, Routine LOVAZA, 2019-0 Yes [id number] 3g Take 3 Univ ers omega-3-aci 7-31 capsules ity of d ethyl 00:00: by mouth [place] esters, 1 00 daily. Medical gram Branch capsule LOVAZA, 2020-0 Yes [id number] 3g Take 3 Univ ers omega-3-aci 7-31 capsules ity of d ethyl 00:00: by mouth [place] esters, 1 00 daily. Medical gram Branch capsule LOVAZA, 2019-0 Yes [id number] 3g Take 3 Univ ers omega-3-aci 7-31 capsules ity of d ethyl 00:00: by mouth [place] esters, 1 00 daily. Medical gram Branch capsule CAMMY, 2019-0 Yes [id number] 3g Take 3 Univ ers omega-3-aci 7-31 capsules ity of d ethyl 00:00: by mouth [place] esters, 1 00 daily. Medical gram Branch capsule CAMMY, 2019-0 Yes [id number] 3g Take 3 Univ ers omega-3-aci 7-31 capsules ity of d ethyl 00:00: by mouth [place] esters, 1 00 daily. Medical gram Branch capsule CAMMY, 0 Yes [id number] 3g Take 3 Univ ers omega-3-aci 7-31 capsules ity of d ethyl 00:00: by mouth [place] esters, 1 00 daily. Medical gram Branch capsule CAMMY, 0 Yes [id number] 3g Take 3 Univ ers omega-3-aci 7-31 capsules ity of d ethyl 00:00: by mouth [place] esters, 1 00 daily. Medical gram Branch capsule CAMMY, 0 Yes [id number] 3g Take 3 Univ ers omega-3-aci 7-31 capsules ity of d ethyl 00:00: by mouth [place] esters, 1 00 daily. Medical gram Branch capsule ondansetron 2018- Yes [id number] 4mg Take 1 Univers (ZOFRAN 5-03 tablet by ity of ODT) 4 mg 00:00: mouth [place] disintegrat 00 every 8 Medic al ing tablet (eight) Branch hours as needed for Nausea and Vomiting (N/V). ondansetron 2018- Yes [id number] 4mg Take 1 Univers (ZOFRAN 5-03 tablet by ity of ODT) 4 mg 00:00: mouth [place] disintegrat 00 every 8 Medic al ing tablet (eight) Branch hours as needed for Nausea and Vomiting (N/V). ondansetron 2018- Yes [id number] 4mg Take 1 Univers (ZOFRAN 5-03 tablet by ity of ODT) 4 mg 00:00: mouth [place] disintegrat 00 every 8 Medic al ing tablet (eight) Branch hours as needed for Nausea and Vomiting (N/V). ondansetron 2018- Yes [id number] 4mg Take 1 Univers (ZOFRAN 5-03 tablet by ity of ODT) 4 mg 00:00: mouth [place] disintegrat 00 every 8 Medic al ing tablet (eight) Branch hours as needed for Nausea and Vomiting (N/V). ondansetron 2019-0 Yes [id number] 4mg Take 1 Univers (ZOFRAN 5-03 tablet by ity of ODT) 4 mg 00:00: mouth [place] disintegrat 00 every 8 Medic al ing tablet (eight) Branch hours as needed for Nausea and Vomiting (N/V). ondansetron 2019-0 Yes [id number] 4mg Take 1 Univers (ZOFRAN 5-03 tablet by ity of ODT) 4 mg 00:00: mouth [place] disintegrat 00 every 8 Medic al ing tablet (eight) Branch hours as needed for Nausea and Vomiting (N/V). ondansetron 2019-0 Yes [id number] 4mg Take 1 Univers (ZOFRAN 5-03 tablet by ity of ODT) 4 mg 00:00: mouth [place] disintegrat 00 every 8 Medic al ing tablet (eight) Branch hours as needed for Nausea and Vomiting (N/V). ondansetron 2019-0 Yes [id number] 4mg Take 1 Univers (ZOFRAN 5-03 tablet by ity of ODT) 4 mg 00:00: mouth [place] disintegrat 00 every 8 Medic al ing tablet (eight) Branch hours as needed for Nausea and Vomiting (N/V). ondansetron 2019-0 Yes [id number] 4mg Take 1 Univers (ZOFRAN 5-03 tablet by ity of ODT) 4 mg 00:00: mouth [place] disintegrat 00 every 8 Medic al ing tablet (eight) Branch hours as needed for Nausea and Vomiting (N/V). ondansetron 2019-0 Yes [id number] 4mg Take 1 Univers (ZOFRAN 5-03 tablet by ity of ODT) 4 mg 00:00: mouth [place] disintegrat 00 every 8 Medic al ing tablet (eight) Branch hours as needed for Nausea and Vomiting (N/V). Insulin 2016-0 Yes QID, Univers [place], 9-25 DX:E11.9 ity of Disposable, 00:00: [place] (BD INSULIN 00 Medical PEN NEEDLE Branch UF) 31 gauge x 5/16" Ndle Insulin 2016-0 Yes QID, [facility] [place], 9-25 DX:E11.9 ity of Disposable, 00:00: [place] (BD INSULIN 00 Medical PEN NEEDLE Branch UF) 31 gauge x 5/16" Ndle Insulin 2017-0 Yes QID, [facility] [place], 9- DX:E11.9 ity of Disposable, 00:00: [place] (BD INSULIN 00 Medical PEN NEEDLE Branch UF) 31 gauge x 5/16" Ndle Insulin 2017-0 Yes QID, [facility] [place], 04-05 DX:E11.9 ity of Disposable, 00:00: [place] (BD INSULIN 00 Medical PEN NEEDLE Branch UF) 31 gauge x 5/16" Ndle Insulin [id number] Yes QID, [facility] [place], 04-05 DX:E11.9 ity of Disposable, 00:00: [place] (BD INSULIN 00 Medical PEN NEEDLE Branch UF) 31 gauge x 5/16" Ndle Insulin [id number] Yes QID, [facility] [place], 04-05 DX:E11.9 ity of Disposable, 00:00: [place] (BD INSULIN 00 Medical PEN NEEDLE Branch UF) 31 gauge x 5/16" Ndle atorvastati 0 Yes [id number] 40mg Take 1 Univers n (LIPITOR) 9-25 tablet by ity of 40 mg 00:00: mouth at [place] tablet 00 bedtime. [facility] Branch LOVAZA, Yes [id number] 2g Take 2 Uni vers omega-3-aci 9-25 capsules ity of d ethyl 00:00: [place] esters, 00 (two) Medical (LOVAZA) 1 times Branch gram daily capsule before breakfast and dinner. Insulin 0 Yes QID, [facility] [place], 9- DX:E11.9 ity of Disposable, 00:00: [place] (BD INSULIN 00 Medical PEN NEEDLE Branch UF) 31 gauge x 5/16" Ndle atorvastati 2017-0 Yes [id number] 40mg Take 1 Univers n (LIPITOR) 9-25 tablet by ity of 40 mg 00:00: mouth at [place] tablet 00 bedtime. [facility] Branch LOVAZA, 0 Yes [id number] 2g Take 2 Uni vers omega-3-aci 9-25 capsules ity of d ethyl 00:00: [place] esters, 00 (two) Medical (LOVAZA) 1 times Branch gram daily capsule before breakfast and dinner. Insulin [id number] Yes QID, Univers [place], 04-05 DX:E11.9 ity of Disposable, 00:00: [place] (BD INSULIN 00 Medical PEN NEEDLE Branch UF) 31 gauge x 5/16" Ndle Insulin Yes QID, [facility] [place], 04-05 DX:E11.9 ity of Disposable, 00:00: [place] (BD INSULIN Medical PEN NEEDLE Branch UF) 31 gauge x 5/16" Ndle Insulin Yes QID, [facility] [place], 04-05 DX:E11.9 ity of Disposable, 00:00: [place] (BD INSULIN Medical PEN NEEDLE Branch UF) 31 gauge x 5/16" Ndle atorvastati 2020- No [id number] 40mg Take 1 Univers n (LIPITOR) 04-05 tablet by it y of 40 mg 00:00: 00:00 mouth at [place] tablet 00 :00 bedtime. Medical Branch LOVAZA, 2020- No [id number] 2g Take 2 Un cb omega-3-aci 04-05 capsules ity of d ethyl 00:00: 00:00 by mouth 2 [place] esters, 00 :00 (two) Medical (LOVAZA) 1 times Branch gram daily capsule before breakfast and dinner. insulin Yes [id number] Inject as U nivers aspart 6-20 instructed ity of (NOVOLOG 00:00: TID [place] FLEXPEN) 00 to 80 Medical 100 unit/mL units Branch injection daily Insulin Yes [id number] 35U inject 35 U nivers Glargine 6-20 Units ity of (LANTUS 00:00: under the [place] SOLOSTAR) 00 skin every Medi maribeth 100 unit/mL morning. Bran ch (3 mL) injection insulin Yes [id number] Inject as U nivers aspart 6-20 instructed ity of (NOVOLOG 00:00: TID [place] FLEXPEN) 00 to 80 Medical 100 unit/mL units Branch injection daily Insulin Yes [id number] 35U inject 35 U nivers Glargine 6-20 Units ity of (LANTUS 00:00: under the [place] SOLOSTAR) 00 skin every Medi maribeth 100 unit/mL morning. Bran ch (3 mL) injection insulin Yes [id number] Inject as U nivers aspart 6-20 instructed ity of (NOVOLOG 00:00: TID [place] FLEXPEN) 00 to 80 Medical 100 unit/mL units Branch injection daily Insulin Yes [id number] 35U inject 35 U nivers Glargine 6-20 Units ity of (LANTUS 00:00: under the [place] SOLOSTAR) 00 skin every Medi maribeth 100 unit/mL morning. Bran ch (3 mL) injection insulin Yes [id number] Inject as U nivers aspart 6-20 instructed ity of (NOVOLOG 00:00: TID [place] FLEXPEN) 00 to 80 Medical 100 unit/mL units Branch injection daily Insulin Yes [id number] 35U inject 35 U nivers Glargine 6-20 Units ity of (LANTUS 00:00: under the [place] SOLOSTAR) 00 skin every Medi maribeth 100 unit/mL morning. Bran ch (3 mL) injection insulin Yes [id number] Inject as U nivers aspart 6-20 instructed ity of (NOVOLOG 00:00: TID [place] FLEXPEN) 00 to 80 Medical 100 unit/mL units Branch injection daily Insulin Yes [id number] 35U inject 35 U nivers Glargine 6-20 Units ity of (LANTUS 00:00: under the [place] SOLOSTAR) 00 skin every Medi maribeth 100 unit/mL morning. Bran ch (3 mL) injection glucagon 1 Yes [id number] Use as U nivers mg/mL SolR 6-20 instructed ity of injection 00:00: in case of [place] 00 severe Medical hypoglycem Branch ia. insulin Yes [id number] Inject as U nivers aspart 6-20 instructed ity of (NOVOLOG 00:00: TID [place] FLEXPEN) 00 to 80 Medical 100 unit/mL units Branch injection daily Insulin Yes [id number] 35U inject 35 U nivers Glargine 6-20 Units ity of (LANTUS 00:00: under the [place] SOLOSTAR) 00 skin every Medi maribeth 100 unit/mL morning. Bran ch (3 mL) injection insulin Yes [id number] Inject as U nivers aspart 6-20 instructed ity of (NOVOLOG 00:00: TID [place] FLEXPEN) 00 to 80 Medical 100 unit/mL units Branch injection daily Insulin Yes [id number] 35U inject 35 U nivers Glargine 6-20 Units ity of (LANTUS 00:00: under the [place] SOLOSTAR) 00 skin every Medi maribeth 100 unit/mL morning. Bran ch (3 mL) injection glucagon 1 Yes [id number] Use as U nivers mg/mL SolR 6-20 instructed ity of injection 00:00: in case of [place] 00 severe Medical hypoglycem Branch ia. insulin Yes [id number] Inject as U nivers aspart 6-20 instructed ity of (NOVOLOG 00:00: TID [place] FLEXPEN) 00 to 80 Medical 100 unit/mL units Branch injection daily Insulin Yes [id number] 35U inject 35 U nivers Glargine 6-20 Units ity of (LANTUS 00:00: under the [place] SOLOSTAR) 00 skin every Medi maribeth 100 unit/mL morning. Bran ch (3 mL) injection insulin Yes [id number] Inject as U nivers aspart 6-20 instructed ity of (NOVOLOG 00:00: TID [place] FLEXPEN) 00 to 80 Medical 100 unit/mL units Branch injection daily Insulin Yes [id number] 35U inject 35 U nivers Glargine 6-20 Units ity of (LANTUS 00:00: under the [place] SOLOSTAR) 00 skin every Medi maribeth 100 unit/mL morning. Bran ch (3 mL) injection insulin Yes [id number] Inject as U nivers aspart 6-20 instructed ity of (NOVOLOG 00:00: TID AC [place] FLEXPEN) 00 to 80 Medical 100 unit/mL units Branch injection daily Insulin Yes [id number] 35U inject 35 U nivers Glargine 6-20 Units ity of (LANTUS 00:00: under the [place] SOLOSTAR) 00 skin every Medi maribeth 100 unit/mL morning. Bran ch (3 mL) injection glucagon 1 2020- No [id number] Use as Univers mg/mL SolR 6-20 02-08 instructed it y of injection 00:00: 00:00 in case of [place] 00 :00 severe Medical hypoglycem Branch ia. zolde 2014-07 Yes TAKE ONE Unive rs (AMBIEN) 10 1-11 TABLET BY ity of mg tablet 00:00: MOUTH ONCE [place] 00 DAILY AT Medical BEDTIME Branch zolde 2014-07 Yes TAKE ONE Unive rs (AMBIEN) 10 1-11 TABLET BY ity of mg tablet 00:00: [place]TH [place]CE [place] DAILY AT Medical [facility]EDTIME [facility] Yes TAKE ONE Unive rs (AMBIEN) 10 1-11 TABLET BY ity of mg tablet 00:00: M[place]TH ONCE [place] DAILY AT Medical BEDTIME Branch [facility]07 Yes TAKE ONE Unive rs (AMBIEN) 10 1-11 TABLET BY ity of mg tablet 00:00: M[place]TH ONCE [place] DAILY AT Medical BEDTIME Branch [facility] 2020- No TAKE ONE Univ ers (AMBIEN) 10 1-11 12-16 TABLET BY it y of mg tablet 00:00: 00:00 MOUTH ONCE [place] 00 :00 DAILY AT Medical BEDTIME Branch traMADOL 2014-07 Yes 50mg Take 1 Tab Uni vers (ULTRAM) 50 0-12 by mouth ity of mg tablet 00:00: every 6 [place] 00 (six) Medical hours as Branch needed for Pain (scale 7-10). traMADOL 2014-07 Yes 50mg Take 1 Tab Uni vers (ULTRAM) 50 0-12 by mouth ity of mg tablet 00:00: every 6 [place] 00 (six) Medical hours as Branch needed for Pain (scale 7-10). traMADOL 2014-07 Yes 50mg Take 1 Tab Uni vers (ULTRAM) 50 0-12 by mouth ity of mg tablet 00:00: every 6 [place] 00 (six) Medical hours as Branch needed for Pain (scale 7-10). traMADOL 2014-07 Yes 50mg Take 1 Tab Uni vers (ULTRAM) 50 0-12 by mouth ity of mg tablet 00:00: every 6 [place] 00 (six) Medical hours as Branch needed for Pain (scale 7-10). traMADOL 2014-07 2020- No 50mg Take 1 Tab Un cb (ULTRAM) 50 0-12 12-16 by mouth ity of mg tablet 00:00: 00:00 every 6 [place] 00 :00 (six) Medical hours as Branch needed for Pain (scale 7-10). aspirin 81 2014-07 Yes 81mg Take 1 Tab U nivers mg chewable 0-10 by mouth ity of tablet 00:00: daily. Medical Branch enalapril 2014-07 Yes 5mg Take 1 Tab Un cb (VASOTEC) 5 0-10 by mouth ity of mg tablet 00:00: daily. Medical Branch fenofibrate 2014-07 Yes 134mg Take 1 Cap Univers micronized 0-10 by mouth ity o f (LOFIBRA) 00:00: daily. [place] 134 mg 00 Medical capsule Branch aspirin 81 2014-07 Yes 81mg Take 1 Tab U nivers mg chewable 0-10 by mouth ity of tablet 00:00: daily. Medical Branch enalapril 2014-07 Yes 5mg Take 1 Tab Un cb (VASOTEC) 5 0-10 by mouth ity of mg tablet 00:00: daily. [place] Medical Branch fenofibrate 2014-07 Yes 134mg Take 1 Cap Univers micronized 0-10 by mouth ity o f (LOFIBRA) 00:00: daily. [place] 134 mg 00 Medical capsule Branch aspirin 81 2014-07 2020- No 81mg Take 1 Tab Univers mg chewable 0-10 07-31 by mouth ity of tablet 00:00: 00:00 daily. [place] 00 :00 Medical Branch enalapril 2014-07 2020- No 5mg Take 1 Tab U nivers (VASOTEC) 5 0-10 07-31 by mouth ity of mg tablet 00:00: 00:00 daily. [place] 00 :00 Medical Branch fenofibrate 2014-07 2020- No 134mg Take 1 Cap Univers micronized 0-10 07-31 by mouth ity of (LOFIBRA) 00:00: 00:00 daily. [place] 134 mg 00 :00 Medical capsule Branch blood sugar 2011-07 Yes [id number] before Univers diagnostic 0-05 meals and ity of (FREESTYLE 00:00: at [place] INSULINX) 00 bedtime. Medica l strip Branch blood sugar 2011-07 Yes [id number] before Univers diagnostic 0-05 meals and ity of (FREESTYLE 00:00: at [place] INSULINX) 00 bedtime. Medica l strip Branch blood sugar 2011-07 2020- No [id number] before Univers diagnostic 0-05 07-31 meals and ity of (FREESTYLE 00:00: 00:00 at [place] INSULINX) 00 :00 bedtime. Medica l strip Branch Lancets 2011-0 Yes [id number] Univer s (LANCETS,UL 9-24 ity of TRA THIN) 00:00: [place] [address] Medical Branch Lancets 2011-0 Yes [id number] Univer s (LANCETS,UL 9-24 ity of TRA THIN) 00:00: [place] [address] Medical Branch Lancets 2011-0 Yes [id number] Univer s (LANCETS,UL 9-24 ity of TRA THIN) 00:00: [place] [address] Medical Branch Lancets 2011-0 Yes [id number] Univer s (LANCETS,UL 9-24 ity of TRA THIN) 00:00: [place] [address] Medical Branch Lancets 2011-0 Yes [id number] Univer s (LANCETS,UL 9-24 ity of TRA THIN) 00:00: [place] [address] Medical Branch Lancets 2011-0 Yes [id number] Univer s (LANCETS,UL 9-24 ity of TRA THIN) 00:00: [place] [address] Medical Branch Lancets 2012-0 Yes [id number] Univer s (LANCETS,UL 9-24 ity of TRA THIN) 00:00: [place] [address] Medical Branch Lancets 2012-0 Yes [id number] Univer s (LANCETS,UL 9-24 ity of TRA THIN) 00:00: [place] [address] Medical Branch Lancets 2012-0 Yes [id number] Univer s (LANCETS,UL 9-24 ity of TRA THIN) 00:00: [place] [address] Medical Branch Lancets 2012-0 Yes [id number] Univer s (LANCETS,UL 9-24 ity of TRA THIN) 00:00: [place] [address] Medical Branch Vital Signs Vital Name Observation Time Observation Value Comments Source Systolic blood 2020-11-16 21:02:00 150 mm[Hg] Univer sity of pressure [facility] Diastolic blood 2020-11-16 21:02:00 93 mm[Hg] Unive rsity of pressure [facility] Heart rate 2020-11-16 21:02:00 93 /min Universi ty of [facility] Respiratory rate 2020-11-16 21:02:00 20 /min Univ ersity of [place] [facility] Oxygen saturation in 2020-11-16 21:02:00 100 /min University of Arterial blood by [facility] maribeth Pulse oximetry Branch Body temperature 2020-11-16 18:21:00 36.61 Dejah Univ ersity of [place] [facility] Body weight 2020-11-16 18:21:00 89.359 kg Universi ty of [place] [facility] BMI 2020-11-16 18:21:00 28.27 kg/m2 Universi ty of [place] [facility] Systolic blood 2020-07-28 21:58:00 147 mm[Hg] Univer sity of pressure [place] [facility] Diastolic blood 2020-07-28 21:58:00 100 mm[Hg] Unive rsity of pressure [place] [facility] Heart rate 2020-07-28 21:58:00 103 /min Universi ty of [place] [facility] Body temperature 2020-07-28 21:58:00 36.28 Dejah Univ ersity [facility] [place] [facility] Respiratory rate 2020-07-28 21:58:00 20 /min Univ ersity of [place] [facility] Body weight 2020-07-28 21:58:00 86.183 kg Universi ty [facility] [place] [facility] BMI 2020-07-28 21:58:00 27.26 kg/m2 Universi ty [facility] [place] [facility] Oxygen saturation in 2020-07-28 21:58:00 100 /min University of Arterial blood by [facility] Pulse oximetry Branch Systolic blood 2020-06-29 22:21:00 133 mm[Hg] Univer sity of pressure [place] [facility] Diastolic blood 2020-06-29 22:21:00 81 mm[Hg] Unive rsity of pressure [place] [facility] Heart rate 2020-06-29 22:21:00 89 /min Universi ty [facility] [place] [facility] Body temperature 2020-06-29 22:21:00 36.83 Dejah Univ ersity [facility] [place] [facility] Respiratory rate 2020-06-29 22:21:00 18 /min Univ ersity of [place] [facility] Oxygen saturation in 2020-06-29 22:21:00 99 /min University of Arterial blood by [facility] Pulse oximetry Branch Body weight 2020-06-27 10:03:00 87.998 kg Universi ty of [place] [facility] BMI 2020-06-27 10:03:00 27.84 kg/m2 [facility] Body height 2020-06-26 07:45:00 177.8 cm [facility] Systolic blood 2020-06-29 22:21:00 133 mm[Hg] Univer sity of [facility] Diastolic blood 2020-06-29 22:21:00 81 [facility]Hg[facility] 2020-06-29 22:21:00 89 /min [facility] Body temperature 2020-06-29 22:21:00 36.83 Dejah [facility] rate 2020-06-29 22:21:00 18 /min [facility] Oxygen saturation in 2020-06-29 22:21:00 99 /min [facility] Arterial blood by [facility] Pulse oximetry [place] Body weight 2020-06-27 10:03:00 87.998 kg [facility] BMI 2020-06-27 10:03:00 27.84 kg/m2 [facility] Body height 2020-06-26 07:45:00 177.8 cm [facility] Procedures Procedure Date / Time Performing Clinician Source Performed CT ABDOMEN PELVIS W 2020-11-16 19:40:14 Nader Mendoza [facility] LIPASE 2020-11-16 18:28:00 Nader Mendoza [facility] MAGNESIUM 2020-11-16 18:28:00 Nader Mendoza Shayla [facility] COMP. METABOLIC PANEL 2020-11-16 18:28:00 Nader Mendoza [facility] ([id number]) [facility] CBC WITH DIFF 2020-11-16 18:28:00 Nader Mendoza Shayla [facility] URINALYSIS 2020-11-16 18:28:00 Nader Mendoza Shayla [facility] POCT GLUCOSE (AUTOMATED) 2020-11-16 18:25:00 Nader Mendoza [facility] CONSENT/REFUSAL FOR 2020-11-16 18:14:39 [facility]AT[facility] [place] [facility] CT CERVICAL SPINE WO 2020-07-28 22:41:56 Lillian Barr [facility] CONTRAST Medical Branch CT HEAD WO CONTRAST 2020-07-28 22:41:56 Lillian Barr [facility] NOTICE OF PRIVACY 2020-07-28 21:50:31 Doctor Unassigned, [facility] PRACTICES [place] [facility] [place] CONSENT/REFUSAL FOR 2020-07-28 21:50:20 [facility] [place] [facility] POCT GLUCOSE (AUTOMATED) 2020-06-29 23:35:00 Rebeca [facility] POCT GLUCOSE (AUTOMATED) 2020-06-29 18:04:00 Rebeca [facility] POCT GLUCOSE (AUTOMATED) 2020-06-29 13:54:00 Rebeca [facility] TRIGLYCERIDES 2020-06-29 11:20:00 Ellis Almeida [facility] BASIC METABOLIC PANEL 2020-06-29 11:20:00 Rebeca [facility] (NA, K, CL, CO2, GLUCOSE, Medica l Branch BUN, CREATININE, CA) CBC WITH DIFF 2020-06-29 11:20:00 Rebeca [facility] ADC / LCC - DRUG SCREEN 2020-06-29 03:10:00 Favio Moscoso [facility] TRIAGE [facility] POCT GLUCOSE (AUTOMATED) 2020-06-28 22:46:00 Rebeca [facility] POCT GLUCOSE (AUTOMATED) 2020-06-28 18:53:00 Rebeca [facility] POCT GLUCOSE (AUTOMATED) 2020-06-28 18:01:00 Rebeca [facility] POCT GLUCOSE (AUTOMATED) 2020-06-28 13:27:00 Rebeca [facility] POCT GLUCOSE (AUTOMATED) 2020-06-28 11:48:00 Rebeca [facility] TRIGLYCERIDES 2020-06-28 10:27:00 [facility] 2020-06-28 10:27:00 Edionwe, [facility] MAGNESIUM 2020-06-28 10:27:00 Danis [facility] BASIC METABOLIC PANEL 2020-06-28 10:27:00 [facility] ([facility], K, CL, CO2, GLUCOSE, Medica l Branch BUN, CREATININE, CA) ETHANOL 2020-06-28 10:27:00 Danis [facility] CBC WITH DIFF 2020-06-28 10:27:00 Rebeca [facility] POCT GLUCOSE (AUTOMATED) 2020-06-28 10:10:00 Laurence Jose Uni versity of [facility] POCT GLUCOSE (AUTOMATED) 2020-06-28 07:00:00 Laurence Jose Uni versity of [facility] POCT GLUCOSE (AUTOMATED) 2020-06-28 05:48:00 Laurence Jose Uni versity of [facility] POCT GLUCOSE (AUTOMATED) 2020-06-28 04:45:00 Valerie Josey Uni versity of [facility] POCT GLUCOSE (AUTOMATED) 2020-06-28 03:40:00 Rebeca Valeriey Uni versity of [facility] POCT GLUCOSE (AUTOMATED) 2020-06-28 02:43:[address] aVlerie Josey Uni versity of [facility] POCT GLUCOSE (AUTOMATED) 2020-06-28 01:39:00 Rebeca Valeriey Uni versity of [facility] POCT GLUCOSE (AUTOMATED) 2020-06-27 23:10:00 EdValerie carranzay Uni [facility] [place] [facility] TRIGLYCERIDES 2020-06-27 23:08:00 Ellis Almeida [facility] POCT GLUCOSE (AUTOMATED) 2020-06-27 21:29:00 Edtere Mercy Uni versity of [facility] POCT GLUCOSE (AUTOMATED) 2020-06-27 19:54:00 Edtere Mercy Uni versity of [facility] POCT GLUCOSE (AUTOMATED) 2020-06-27 18:59:00 Edtere Mercy Uni versity of [facility] POCT GLUCOSE (AUTOMATED) 2020-06-27 17:42:00 Edtere Mercy Uni versity of [facility] POCT GLUCOSE (AUTOMATED) 2020-06-27 16:50:00 Rebeca Laurence Uni versity of [facility] POCT GLUCOSE (AUTOMATED) 2020-06-27 14:43:00 Edtere Laurence Uni versity of [facility] POCT GLUCOSE (AUTOMATED) 2020-06-27 13:19:00 Rebeca Laurence Uni versity of [facility] POCT GLUCOSE (AUTOMATED) 2020-06-27 12:18:00 Rebeca Laurence Uni versity of [facility] TRIGLYCERIDES 2020-06-27 10:20:00 Ellis Almeida [facility] LIPASE 2020-06-27 10:20:00 Rebeca [facility] BASIC METABOLIC PANEL 2020-06-27 10:20:00 Rebeca [facility] (NA, K, CL, CO2, GLUCOSE, Medica l Branch BUN, CREATININE, CA) CBC WITH DIFF 2020-06-27 10:20:00 Rebeca [facility] POCT GLUCOSE (AUTOMATED) 2020-06-27 10:06:00 Rebeca Laurence Uni versity of [facility] POCT GLUCOSE (AUTOMATED) 2020-06-27 09:06:00 Rebeca Laurence Uni versity of [facility] POCT GLUCOSE (AUTOMATED) 2020-06-27 08:07:00 Rebeca Laurence Uni versity of [facility] POCT GLUCOSE (AUTOMATED) 2020-06-27 07:09:00 Rebeca Valeriey Uni versity of [facility] POCT GLUCOSE (AUTOMATED) 2020-06-27 06:02:00 Edtere Valeriey [facility] [place] [facility] POCT GLUCOSE (AUTOMATED) 2020-06-27 04:52:00 Edtere Valeriey [facility] [place] [facility] POCT GLUCOSE (AUTOMATED) 2020-06-27 04:02:00 Edtere Valeriey [facility] [place] [facility] POCT GLUCOSE (AUTOMATED) 2020-06-27 03:28:[address] Edtere Valeriey Uni versity of [facility] POCT GLUCOSE (AUTOMATED) 2020-06-27 03:02:00 Edioncal, Valeriey [facility] [place] [facility] POCT GLUCOSE (AUTOMATED) 2020-06-27 02:01:00 Laurence [facility] [place] [facility] POCT GLUCOSE (AUTOMATED) 2020-06-27 01:15:00 Rebeca [facility] [place] [facility] POCT GLUCOSE (AUTOMATED) 2020-06-27 00:07:00 Rebeca Valerieprice Yudi versity of [place] [facility] POCT GLUCOSE (AUTOMATED) 2020-06-26 22:46:00 Laurence Jose [facility] [place] [facility] TRIGLYCERIDES 2020-06-26 22:07:00 Ellis Almeida Minerva o [facility] POCT GLUCOSE (AUTOMATED) 2020-06-26 21:45:00 [facility] [place] [facility] POCT GLUCOSE (AUTOMATED) 2020-06-26 20:38:00 Rebeca [facility] [place] [facility] POCT GLUCOSE (AUTOMATED) 2020-06-26 18:13:00 Laurence Jsoe [facility] [place] [facility] POCT GLUCOSE (AUTOMATED) 2020-06-26 17:03:00 [facility]beca [facility] [place] [facility] LIPASE 2020-06-26 11:15:00 Rebeca [facility] o [facility] LIPID PANEL ([id number])(TOTAL 2020-06-26 11:15:00 Laurence Jose [facility] CHOLESTEROL, Medical Branch TRIGLYCERIDES, HDL) GLYCOSYLATED HEMOGLOBIN 2020-06-26 11:15:00 Rebeca [facility] (A1C) Medical [place] LOW-DENSITY LIPOPROTEIN, 2020-06-26 11:15:00 Laurence Jose [facility] DIRECT [facility] POCT GLUCOSE (AUTOMATED) 2020-06-26 11:12:00 Laurence Jose [facility] ABDOMEN PELVIS W 2020-06-26 04:40:39 Kofi Beebe [facility] CONTRAST Medical Branch ASSIGNMENT OF BENEFITS 2020-06-26 03:16:02 [facility] [place] [facility] COVID-19 (ID NOW RAPID 2020-06-26 03:12:00 Kofi Beebe [facility] TESTING) Medical Branch LAB ONLY COVID 2020-06-26 03:12:00 Kofi Beebe [facility] INTERPRETATION [facility] Branch LIPASE 2020-06-26 02:54:00 Kofi Beebe [facility] COMP. METABOLIC PANEL 2020-06-26 02:54:00 Kofi Beebe [facility] ([id number][facility] CBC WITH DIFF 2020-06-26 02:54:00 Kofi Beebe [facility] POCT GLUCOSE (AUTOMATED) 2020-06-26 02:44:00 [facility] FOR 2020-06-26 02:29:58 Doctor [facility] DIAGNOSIS AND TREATMENT [place] [facility] EXTERNAL PROVIDER RECORDS 2020-02-09 05:01:00 Doctor Rachid [facility] [place] [facility] Encounters Start End Encounter Admission Attending Care Care Encounter Source Date/Time Date/Time Type Type Clinicians Facility Department ID 2021-05-11 Emergency [facility] [id number] Univers 17:56:10 ity of [facility] 2021-05-10 Emergency [facility] [id number] Univers 17:48:01 ity of [facility] 2021-05-10 Emergency [facility] [id number] Univers 11:31:[address] [facility] 2020-11-16 2020-11-16 Emergency Nader Mendoza [facility] 1.2.840.114 [id number] Univers 13:16:00 16:24:00 Shayla Pierre 350.1.13.10 i ty [facility] 4.2.7.2.686 [facility] [phone] [facility] 084 Branch 2020-11-16 2020-11-16 Orders Doctor JEROME 1.2.840.114 [id number] Univers 00:00:00 00:00:00 Only UnassKYLE porras 350.1.13.10 ity of [place] [facility] 4.2.7.2.686 [facility] [phone] [facility] 009 Branch 2020-07-28 2020-07-[address] [facility] [id number] Univers 16:00:00 17:40:00 Lillian Pierre 350.1.13.10 i ty of [place] 4.2.7.2.686 [facility] [id number] [facility] 084 Branch 2020-07-28 2020-07-28 Orders Doctor QUEENIE 1.2.840.114 [id number] Univers 00:00:00 00:00:00 Only Unassigned, KYLE 350.1.13.10 ity of [place] [facility] 4.2.7.2.686 Sergio as [phone] [facility] 009 Branch 2020-07-01 2020-07-01 Transition Madeline Mikeedin 1.2.840.114 [id number] Univers 00:00:00 00:00:00 of Care Annita Bucky 350.1.13.10 i ty of [place] 4.2.7.2.686 [facility] [phone] [facility] 403 Branch 2020-07-01 2020-07-01 Transition Sam Correa 1.2.840.114 [id number] 00:00:00 00:00:00 of Care Annita Bucky 350.1.13.10 [place] 4.2.7.2.686 [id number] [facility] 2020-06-25 2020-06-29 [facility] 1.2.840. 114 [id number] [facility] 20:44:00 19:29:00 Encounter Laurence Jose 350.1.13.10 ity of [place] 4.2.7.2.686 [facility] [id number] [place] [id number] Branch 2020-06-25 2020-06-29 [facility] 1.2.840. 114 [id number] 20:44:00 19:29:00 Encounter Laurence Jose 350.1.13.10 [place] 4.2.7.2.686 [place] [phone] [facility] 2020-06-25 2020-06-25 Orders Doctor JEROME 1.2.840.114 [id number] Univers 00:00:00 00:00:00 Only Unassigned, KYLE 350.1.13.10 ity of [place] [facility] 4.2.7.2.686 Sergio as [phone] [address] 2020-06-25 2020-06-25 Orders Doctor QUEENIE 1.2.840.114 [id number] 00:00:00 00:00:00 Only Unassigned, KYLE 350.1.13.10 [facility] 4.2.7.2.686 [id number] 2020-02-09 2020-02-[address] [facility] 1.2.840.114 [id number] Univers 15:04:39 15:53:06 ne Visit Cole Cohen Ignacio [facility].13.10 [facility] [place] [phone] Ne dical [address] 2020-02-09 2020-02-[address] [facility] [facility] 1.2.840.114 [id number] 15:04:39 15:53:06 ne Visit Cole Pierre 350.1.13.10 [place] 4.2.7.2.686 Professio [phone] [address] 2020-02-09 2020-02-09 [facility] [id number] Univers 15:00:00 15:00:00 COLE [id number] [facility] 2020-02-09 2020-02-09 [facility] [id number] Univers 15:00:00 15:00:00 COLE [facility] 2020-02-09 2020-02-09 Orders Doctor JEROME 1.2.840.114 [id number] Univers 00:00:00 00:00:00 Only Unassigned, KYLE 350.1.13.10 ity of [place] [facility] 4.2.7.2.686 Sergio as [phone] [address] 2020-02-09 2020-02-09 Orders Doctor JEROME 1.2.840.114 [id number] 00:00:00 00:00:00 Only Unassigned, KYLE 350.1.13.10 [facility] 4.2.7.2.686 [id number] 2020-02-07 2020-02-[address] [facility] 1.2.840.114 [id number] [facility] 00:00:00 00:00:00 Cole Pierre 350.1.13.10 i ty of [place] 4.2.7.2.686 [place] Professio [phone] Ne dical [facility] [address] [facility] 2020-02-07 2020-02-07 Telephone Freida [facility] 1.2.840.114 [id number] 00:00:00 00:00:00 Cole Pierre 350.1.13.10 [place] 4.2.7.2.686 Professio [phone] [facility] [address] [facility] Results Test Description Test Time Test Comments Results Result Comments Source URINALYSIS 2020-11-16 19:20:17 Test Item Value Reference Range Interpretation Comme nts APPEARANCE (test code = Clear Clear 1436255989) COLOR (test code = 6603145359) Mindy Yellow A PH (test code = 0061459867) 4.8-8.0 SP GRAVITY (test code = 1.003-1.030 2754870745) GLU U QUAL (test code = 150 mg/dL Normal A 6103476665) BLOOD (test code = 7138176723) Negative Negative KETONES (test code = 2611120825) Negative Negative PROTEIN (test code = 2887-8) Negative Negative UROBILIN (test code = Normal Normal 7074351050) BILIRUBIN (test code = Negative Negative 2166966571) NITRITE (test code = 0859657570) Negative Negative LEUK BURTON (test code = Negative Negative 6284343326) RBC/HPF (test code = 6668908326) See_Comment [Automated message] The system which ge nerated this result transmit j luis reference range: 0 - 3 HP F. The reference range was not used to interpret th is result as normal/abnormal . WBC/HPF (test code = 2865192879) See_Comment [Automated message] The system which ge nerated this result transmit j luis reference range: 0 - 5 HP F. The reference range was not used to interpret th is result as normal/abnormal . BACTERIA (test code = Negative Negative 9323756853) MUCOUS (test code = 5214531687) Moderate Negative LPF A Lab Interpretation (test code = Abnormal 09734-8) [facility] Test Item Value Reference Range Interpretation Comments MAGNESIUM (test code = 4624932318) 1.9 mg/dL 1.7-2.4 Lab Interpretation (test code = Normal 36987-5) [facility]. METABOLIC PANEL (92299)2020-11-16 19:17:44 Test Item Value Reference Range Interpretation Comments NA (test code = 138 mmol/L 135-145 9208842459) K (test code = 3.9 mmol/L 3.5-5.0 8918215624) CL (test code = 100 mmol/L 98-108 1379264007) CO2 TOTAL (test code = 28 mmol/L 23-31 7339517717) AGAP (test code = 2-16 8199043836) BUN (test code = 15 mg/dL 7-23 6967401266) GLUCOSE (test code = 215 mg/dL 70-110 H 3066987782) CREATININE (test code = 0.88 mg/dL 0.60-1.25 4053593311) TOTAL BILI (test code = 1.6 mg/dL 0.1-1.1 H 9923161409) CALCIUM (test code = 9.6 mg/dL 8.6-10.6 6575181182) T PROTEIN (test code = 7.4 g/dL 6.3-8.2 1026612331) ALBUMIN (test code = 4.6 g/dL 3.5-5.0 0917582284) ALK PHOS (test code = 90 U/L 34-122 1622980200) ALTv (test code = 15 U/L 5-50 1742-6) AST(SGOT) (test code = 17 U/L 13-40 9389332353) eGFR (test code = mL/min/1.73m2 0862667513) OSKAR (test code = OSKAR) Association of Glomerular Filtration Rate (GFR) and Staging of Kidney Disease* + --+ --+ ------+| GFR (mL/min/1.73 m2) ?| With Kidney Damage ?| ?Without Kidney Damage+ --------+ --------+ +| ?>90 ?| ?Stage one ?| ? Normal ?+ ---+ ---+ -------+| ?60-89 ?| ?Stage two ?| ? Decreased GFR ? + --+ --+ ------+| ?30-59 ?| ?Stage three ?| ? Stage three ? + --+ --+ ------+| ?15-29 ?| ?Stage four ? | ? Stage four ?+ ---+ ---+ -------+| ?<15 (or dialysis) ? ?| ?Stage five ? | ? Stage five ?+ ---+ ---+ -------+ *Each stage assumes the associated GFR level has been in effect for at least three months. ?Stages 1 to 5, with or without kidney disease, indicate chronic kidney disease. Notes: Determination of stages one and two (with eGFR >59mL/min/1.73 m2) requires estimation of kidney damage for at least three months as defined by structural or functional abnormalities of the kidney, manifested by either:Pathological abnormalities or Markers of kidney damage (including abnormalities in the composition of the blood or urine or abnormalities in imaging tests). Lab Interpretation Abnormal (test code = 28471-4) [facility] 19:17:23 Test Item Value Reference Range Interpretation Comments LIPASE (test code = 7849628987) 87 U/L 0-220 Lab Interpretation (test code = Normal 63849-9) [facility] WITH [id number] 19:06:43 Test Item Value Reference Range Interpretation Comments WBC (test code = See_Comment [Automated 90-2) message] The sy stem which generated this result transmitted reference range : 4.20 - 10.70 10*3/?L. The reference range was not used to interpret this result as normal/abnormal . RBC (test code = See_Comment H [Automated 120-8) message] The sy stem which generated this result transmitted reference range : 4.26 - 5.52 10*6/?L. The reference range was not used to interpret this result as normal/abnormal . HGB (test code = 15.1 g/dL 12.2-16.4 718-7) HCT (test code = 44.9 % 38.4-49.3 4544-3) MCV (test code = 78.4 fL 81.7-95.6 L 787-2) MCH (test code = 26.4 pg 26.1-32.7 785-6) MCHC (test code = 33.6 g/dL 31.2-35.0 786-4) RDW-SD (test code = 39.0 fL 38.5-51.6 21587-3) RDW-CV (test code = 13.9 % 12.1-15.4 788-0) PLT (test code = See_Comment [Automated 777-3) message] The sy stem which generated this result transmitted reference range : 150 - 328 10*3/ ?L. The reference r kristina was not used to interpret this result as normal/abnormal . MPV (test code = 9.4 fL 9.8-13.0 L 30686-0) NRBC/100 WBC (test See_Comment [Automat ed code = 0517911665) message] The system which generated this result transmitted reference range : 0.0 - 10.0 /100 WBCs. The refer ence range was not u sed to interpret th is result as normal/abnormal . NRBC x10^3 (test code <0.01 See_Comment [Auto mated = 4873444779) message] The s ystem which generated this result transmitted reference range : 10*3/?L. The reference range was not used to interpret this result as normal/abnormal . GRAN MAT (NEUT) % 79.9 % (test code = 770-8) IMM GRAN % (test code 0.60 % = 5320445700) LYMPH % (test code = 14.4 % 736-9) MONO % (test code = 3.9 % 5905-5) EOS % (test code = 0.6 % 713-8) BASO % (test code = 0.6 % 706-2) GRAN MAT x10^3(ANC) 7.25 10*3/uL 1.99-6.95 H (test code = 7218627498) IMM GRAN x10^3 (test 0.05 10*3/uL 0.00-0.06 code = 7748319015) LYMPH x10^3 (test code 1.30 10*3/uL 1.09-3.23 = 731-0) MONO x10^3 (test code 0.35 10*3/uL 0.36-1.02 L = 742-7) EOS x10^3 (test code = 0.05 10*3/uL 0.06-0.53 L 711-2) BASO x10^3 (test code 0.05 10*3/uL 0.01-0.09 = 704-7) Lab Interpretation Abnormal (test code = 63793-4) [facility] GLUCOSE (AUTOMATED)2020-11-16 18:27:21 Test Item Value Reference Range Interpretation Comments POCT GLU (test code = 9590114971) 218 mg/dL 70-110 H Lab Interpretation (test code = Abnormal 06080-4) [facility] GLUCOSE (AUTOMATED)2020-06-29 23:37:00 Test Item Value Reference Range Interpretation Comments POCT GLU (test code = 9541473097) 217 mg/dL 70-110 H Lab Interpretation (test code = Abnormal 87512-7) [facility] GLUCOSE (AUTOMATED)2020-06-29 18:58:00 Test Item Value Reference Range Interpretation Comments POCT GLU (test code = 3437423670) 214 mg/dL 70-110 H Lab Interpretation (test code = Abnormal 93933-9) [facility] GLUCOSE (AUTOMATED)2020-06-29 14:15:00 Test Item Value Reference Range Interpretation Comments POCT GLU (test code = 5809805718) 182 mg/dL 70-110 H Lab Interpretation (test code = Abnormal 00044-9) [facility] with Qxwjqlcrzagf3367-41-18 13:44:00 Test Item Value Reference Range Interpretation Comments WBC (test code = See_Comment L [Automated 6690-2) message] The sy stem which generated this result transmitted reference range : 4.20 - 10.70 10*3/?L. The reference range was not used to interpret this result as normal/abnormal . RBC (test code = See_Comment [Automated 789-8) message] The sy stem which generated this result transmitted reference range : 4.26 - 5.52 10*6/?L. The reference range was not used to interpret this result as normal/abnormal . HGB (test code = 14.0 g/dL 12.2-16.4 718-7) HCT (test code = 40.3 % 38.4-49.3 4544-3) MCV (test code = 82.8 fL 81.7-95.6 787-2) MCH (test code = 28.7 pg 26.1-32.7 785-6) MCHC (test code = 34.7 g/dL 31.2-35 786-4) RDW-SD (test code = 37.0 fL 38.5-51.6 L 61749-2) RDW-CV (test code = 12.2 % 12.1-15.4 788-0) PLT (test code = See_Comment L [Automated 777-3) message] The sy stem which generated this result transmitted reference range : 150 - 328 10*3/ ?L. The reference r kristina was not used to interpret this result as normal/abnormal . MPV (test code = 9.9 fL 9.8-13 29606-2) NRBC/100 WBC (test See_Comment [Automat ed code = 8786257488) message] The system which generated this result transmitted reference range : 0.0 - 10.0 /100 WBCs. The refer ence range was not u sed to interpret th is result as normal/abnormal . NRBC x10^3 (test code <0.01 See_Comment [Auto mated = 4129465173) message] The s ystem which generated this result transmitted reference range : 10*3/?L. The reference range was not used to interpret this result as normal/abnormal . GRAN MAT (NEUT) % 61.0 % (test code = 770-8) IMM GRAN % (test code 0.30 % = 2615130347) LYMPH % (test code = 29.5 % 736-9) MONO % (test code = 5.9 % 5905-5) EOS % (test code = 2.4 % 713-8) BASO % (test code = 0.9 % 706-2) GRAN MAT x10^3(ANC) 2.07 10*3/uL 1.99-6.95 (test code = 8951232887) IMM GRAN x10^3 (test <0.03 0-0.06 code = 5701847777) LYMPH x10^3 (test code 1.00 10*3/uL 1.09-3.23 L = 731-0) MONO x10^3 (test code 0.20 10*3/uL 0.36-1.02 L = 742-7) EOS x10^3 (test code = 0.08 10*3/uL 0.06-0.53 711-2) BASO x10^3 (test code 0.03 10*3/uL 0.01-0.09 = 704-7) Lab Interpretation Abnormal (test code = 60728-0) [facility]2020-[facility]-19 13:22:00 Test Item Value Reference Range Interpretation Comments TRIG (test code = 5484676211) 468 mg/dL 30-170 H Lab Interpretation (test code = Abnormal 70636-3) [facility] (NA, K, CL, CO2, GLUCOSE, BUN, CREATININE, CA)2020-06-29 13:12:00 Test Item Value Reference Range Interpretation Comments NA (test code = 139 mmol/L 135-145 1913827356) K (test code = 3.6 mmol/L 3.5-5 2930751895) CL (test code = 104 mmol/L 98-108 9660085655) CO2 TOTAL (test code = 25 mmol/L 23-31 1634245425) AGAP (test code = 2-16 9379890236) BUN (test code = 4 mg/dL 7-23 L 3022892933) GLUCOSE (test code = 163 mg/dL 70-110 H 1959930089) CREATININE (test code = 0.74 mg/dL 0.6-1.25 1205038178) CALCIUM (test code = 9.4 mg/dL 8.6-10.6 2575088979) eGFR Calculation mL/min/1.73m2 (Non-) (test code = 6314688217) eGFR Calculation mL/min/1.73m2 () (test code = 5361856389) OSKAR (test code = OSKAR) Association of Glomerular Filtration Rate (GFR) and Staging of Kidney Disease* + --+ --+ ------+| GFR (mL/min/1.73 m2) ?| With Kidney Damage ?| ?Without Kidney Damage+ --------+ --------+ +| ?>90 ?| ?Stage one ?| ? Normal ?+ ---+ ---+ -------+| ?60-89 ?| ?Stage two ?| ? Decreased GFR ? + --+ --+ ------+| ?30-59 ?| ?Stage three ?| ? Stage three ? + --+ --+ ------+| ?15-29 ?| ?Stage four ? | ? Stage four ?+ ---+ ---+ -------+| ?<15 (or dialysis) ? ?| ?Stage five ? | ? Stage five ?+ ---+ ---+ -------+ *Each stage assumes the associated GFR level has been in effect for at least three months. ?Stages 1 to 5, with or without kidney disease, indicate chronic kidney disease. Notes: Determination of stages one and two (with eGFR >59mL/min/1.73 m2) requires estimation of kidney damage for at least three months as defined by structural or functional abnormalities of the kidney, manifested by either:Pathological abnormalities or Markers of kidney damage (including abnormalities in the composition of the blood or urine or abnormalities in imaging tests). Lab Interpretation Abnormal (test code = 72224-5) [facility] / [facility] - DRUG SCREEN [id number] 03:44:00 Test Item Value Reference Range Interpretation Comments BENZO U (test code = Presumptive Negative A 6358818329) Positive AUDREY U (test code = Negative Negative 3280042643) AMPHET (test code = Negative Negative 3188364936) THC (test code = Presumptive Negative A Confirmatio n of 4764664288) Positive Presumptive Positive THC result requires physician order . METHADONE (test code Negative Negative = 2370454681) Meth U (test code = Negative Negative 6989651587) OPIATES (test code = Presumptive Negative A 8433605361) Positive Cocaine Metabolite Negative Negative (test code = 1799292904) PROPOXY (test code = Negative Negative 2627857091) Tric U (test code = Presumptive Negative A Confirma tion of 1918679242) Positive Presumptive Positive TCA result requires physician order and this will b e sent to referen ce lab. PCP (test code = Negative Negative 8331679272) OXYCOD (test code = Negative Negative 2649883226) OSKAR (test code = Urine Drug Cutoff OSKAR) Ranges Benzodiazepines: ? ? 150 ng/mLBarbiturates : ?200 ng/mLAmphetamine: ? 500 ng/mLCannabinoids : ?50 ?ng/mLMethadone: ? 200 ng/mLMethamphetam ine: ? ? 500 ng/mL Opiates: ? 100 ng/mL or 2000 ng/mLCocaine: ? 150 ng/mLPropoxyphene : ?300 ng/mLTricyclics: ?300 ng/mLOxycodone: ? 100 ng/mLPCP: ? 25 ?ng/mL The results are to be used only for medical (i.e., treatment) purposes. Unconfirmed screening results must not be used for non-medical purposes (e.g., employment testing, legal testing). Lab Interpretation Abnormal (test code = 35596-7) [facility]2020-12-19 01:23:00 Test Item Value Reference Range Interpretation Comments ALCOHOL (test code = <10 mg/dL 4187245599) OSKAR (test code = OSKRA) <10 Xgqixjzi75-247 Toxic>100 Depression of COLD FOOD PACKER>400 Fatalities Reported [facility] GLUCOSE (AUTOMATED)2020-06-28 23:30:00 Test Item Value Reference Range Interpretation Comments POCT GLU (test code = 8366129017) 234 mg/dL 70-110 H Lab Interpretation (test code = Abnormal 62880-4) [facility] GLUCOSE (AUTOMATED)2020-06-28 19:09:00 Test Item Value Reference Range Interpretation Comments POCT GLU (test code = 1356586099) 195 mg/dL 70-110 H Lab Interpretation (test code = Abnormal 44408-3) [facility] GLUCOSE (AUTOMATED)2020-06-28 18:16:00 Test Item Value Reference Range Interpretation Comments POCT GLU (test code = 0354311263) 113 mg/dL 70-110 H Lab Interpretation (test code = Abnormal 75354-3) [facility]2020-12-18 15:54:00 Test Item Value Reference Range Interpretation Comments MAGNESIUM (test code = 7897617692) 1.7 mg/dL 1.7-2.4 Lab Interpretation (test code = Normal 53339-3) [facility] GLUCOSE (AUTOMATED)2020-06-28 14:51:00 Test Item Value Reference Range Interpretation Comments POCT GLU (test code = 1102612721) 94 mg/dL 70-110 Lab Interpretation (test code = Normal 43855-9) [facility] with Gmickfbhydfl7811-78-21 14:08:00 Test Item Value Reference Range Interpretation Comments WBC (test code = See_Comment L [Automated 6690-2) message] The sy stem which generated this result transmitted reference range : 4.20 - 10.70 10*3/?L. The reference range was not used to interpret this result as normal/abnormal . RBC (test code = See_Comment [Automated 789-8) message] The sy stem which generated this result transmitted reference range : 4.26 - 5.52 10*6/?L. The reference range was not used to interpret this result as normal/abnormal . HGB (test code = 13.6 g/dL 12.2-16.4 718-7) HCT (test code = 39.2 % 38.4-49.3 4544-3) MCV (test code = 82.9 fL 81.7-95.6 787-2) MCH (test code = 28.8 pg 26.1-32.7 785-6) MCHC (test code = 34.7 g/dL 31.2-35 786-4) RDW-SD (test code = 36.2 fL 38.5-51.6 L 02541-0) RDW-CV (test code = 11.9 % 12.1-15.4 L 788-0) PLT (test code = See_Comment L [Automated 777-3) message] The sy stem which generated this result transmitted reference range : 150 - 328 10*3/ ?L. The reference r kristina was not used to interpret this result as normal/abnormal . MPV (test code = 10.0 fL 9.8-13 17090-3) NRBC/100 WBC (test See_Comment [Automat ed code = 6063351522) message] The system which generated this result transmitted reference range : 0.0 - 10.0 /100 WBCs. The refer ence range was not u sed to interpret th is result as normal/abnormal . NRBC x10^3 (test code <0.01 See_Comment [Auto mated = 2236661734) message] The s [place] [employer] which generated this result transmitted reference range : 10*3/?L. The reference range was not used to interpret this result as normal/abnormal . GRAN MAT (NEUT) % 59.7 % (test code = 770-8) IMM GRAN % (test code 0.30 % = 2663335890) LYMPH % (test code = 33.3 % 736-9) MONO % (test code = 4.8 % 5905-5) EOS % (test code = 1.3 % 713-8) BASO % (test code = 0.6 % 706-2) GRAN MAT x10^3(ANC) 1.86 10*3/uL 1.99-6.95 L (test code = 7744702619) IMM GRAN x10^3 (test <0.03 0-0.06 code = 8608587378) LYMPH x10^3 (test code 1.04 10*3/uL 1.09-3.23 L = 731-0) MONO x10^3 (test code 0.15 10*3/uL 0.36-1.02 L = 742-7) EOS x10^3 (test code = 0.04 10*3/uL 0.06-0.53 L 711-2) BASO x10^3 (test code <0.03 0.01-0.09 = 704-7) Lab Interpretation Abnormal (test code = 94681-4) [facility] Metabolic Panel (NA, K, CL, CO2, GLUCOSE, BUN, CREATININE, CA)2020-06-28 13:02:00 Test Item Value Reference Range Interpretation Comments NA (test code = 140 mmol/L 135-145 3603558247) K (test code = 3.0 mmol/L 3.5-5 L 9606976508) CL (test code = 106 mmol/L 98-108 5879248019) CO2 TOTAL (test code = 25 mmol/L 23-31 9259601361) AGAP (test code = 2-16 5797267001) BUN (test code = <2 7-23 L 5131559298) GLUCOSE (test code = 107 mg/dL 70-110 8421936836) CREATININE (test code = 0.59 mg/dL 0.6-1.25 L 0510101841) CALCIUM (test code = 8.9 mg/dL 8.6-10.6 8588990217) eGFR Calculation mL/min/1.73m2 (Non-) (test code = 4251812163) eGFR Calculation mL/min/1.73m2 () (test code = 5278427436) OSKAR (test code = OSKAR) Association of Glomerular Filtration Rate (GFR) and Staging of Kidney Disease* + --+ --+ ------+| GFR (mL/min/1.73 m2) ?| With Kidney Damage ?| ?Without Kidney Damage+ --------+ --------+ +| ?>90 ?| ?Stage one ?| ? Normal ?+ ---+ ---+ -------+| ?60-89 ?| ?Stage two ?| ? Decreased GFR ? + --+ --+ ------+| ?30-59 ?| ?Stage three ?| ? Stage three ? + --+ --+ ------+| ?15-29 ?| ?Stage four ? | ? Stage four ?+ ---+ ---+ -------+| ?<15 (or dialysis) ? ?| ?Stage five ? | ? Stage five ?+ ---+ ---+ -------+ *Each stage assumes the associated GFR level has been in effect for at least three months. ?Stages 1 to 5, with or without kidney disease, indicate chronic kidney disease. Notes: Determination of stages one and two (with eGFR >59mL/min/1.73 m2) requires estimation of kidney damage for at least three months as defined by structural or functional abnormalities of the kidney, manifested by either:Pathological abnormalities or Markers of kidney damage (including abnormalities in the composition of the blood or urine or abnormalities in imaging tests). Lab Interpretation Abnormal (test code = 73900-9) [facility] 13:02:00 Test Item Value Reference Range Interpretation Comments TRIG (test code = 4949550005) 519 mg/dL 30-170 H Lab Interpretation (test code = Abnormal 25328-1) [facility]2020-12-18 12:45:00 Test Item Value Reference Range Interpretation Comments LIPASE (test code = 9735435470) 27 U/L 0-220 Lab Interpretation (test code = Normal 96117-8) [facility]2020-06-28 11:51:00 Test Item Value Reference Range Interpretation Comments POCT GLU (test code = 4228514117) 111 mg/dL 70-110 H Lab Interpretation (test code = Abnormal 77406-3) [facility] COVID [id number] 11:31:00COVID DMT InterpretationInterpretation/Recommendations: Molecular NAAT Tests for Active Infection with the SARS-CoV-2 Virus: This result indicates that the patient has tested negative on one occasion for the SARS-CoV-2 virus that causes COVID-19 illness. This most likely indicates that the patient does not have an active infection with the SARS-CoV-2 virus. However, infection is not completely ruled out as the false negative rate for molecular NAAT testing using a nasopharyngeal sample can be up to 30%, mostly dependent on the timing of sample collection in relation to illness onset and any deficiencies in sampling techniques. If the patient continues to have persistent or worsening symptoms concerning for COVID-19 illness, a repeat NAAT test (PCR, Rapid ID Now, etc.) should be performed, at which time the SARS-CoV-2 virus - if present - may have reached a detectable viral load (usually peaking by the end of the first week of symptoms). Tests for IgM and/or IgG Antibodies to SARS-CoV-2 Virus: Testing for IgM and IgG antibodies 1-3 weeks after illness onset will indicate whether the patient has produced antibodies to the virus. At this time, it is not known if the production of antibodies - specifically IgG antibodies - indicates whether the patient is immune to future infections with the SARS-CoV-2 virus. ? ? Interp retation Result Comments:These interpretation comments are based upon all COVID- 19 testing the patient has had at [facility], including molecular NAAT testing (more commonly known as PCR testing and Rapid IDNow testing) and antibody testing. It does not take into account any testing that a patient has had outside of the [facility] medical record. [facility] LABORATORY SERVICESCOVID [id number] Rapid ID NOW (no units) ? ? Date ? Value ? 06/25/2020 ? Not Detected ? [facility]SE ([facility]2020-06-28 10:16:00 Test Item Value Reference Range Interpretation Comments POCT GLU (test code = 5209361350) 109 mg/dL 70-110 Lab Interpretation (test code = Normal 25258-3) [facility] GLUCOSE (AUTOMATED)2020-06-28 09:08:00 Test Item Value Reference Range Interpretation Comments POCT GLU (test code = 8272110218) 152 mg/dL 70-110 H Lab Interpretation (test code = Abnormal 24560-3) [facility] GLUCOSE (AUTOMATED)2020-06-28 06:20:00 Test Item Value Reference Range Interpretation Comments POCT GLU (test code = 4843688710) 84 mg/dL 70-110 Lab Interpretation (test code = Normal 92632-8) [facility] GLUCOSE (AUTOMATED)2020-06-28 04:47:00 Test Item Value Reference Range Interpretation Comments POCT GLU (test code = 0599871743) 95 mg/dL 70-110 Lab Interpretation (test code = Normal 21410-6) [facility] GLUCOSE (AUTOMATED)2020-06-28 03:43:00 Test Item Value Reference Range Interpretation Comments POCT GLU (test code = 7204558935) 123 mg/dL 70-110 H Lab Interpretation (test code = Abnormal 21754-6) [facility] GLUCOSE (AUTOMATED)2020-06-28 02:47:00 Test Item Value Reference Range Interpretation Comments POCT GLU (test code = 4913596359) 121 mg/dL 70-110 H Lab Interpretation (test code = Abnormal 22323-7) [facility] GLUCOSE (AUTOMATED)2020-06-28 02:17:00 Test Item Value Reference Range Interpretation Comments POCT GLU (test code = 8717010369) 94 mg/dL 70-110 Lab Interpretation (test code = Normal 85780-1) [facility]2020-12-18 01:21:00 Test Item Value Reference Range Interpretation Comments TRIG (test code = 0031519104) 647 mg/dL 30-170 H Lab Interpretation (test code = Abnormal 32899-5) [facility] GLUCOSE (AUTOMATED)2020-06-27 23:29:00 Test Item Value Reference Range Interpretation Comments POCT GLU (test code = 7145111520) 87 mg/dL 70-110 Lab Interpretation (test code = Normal 26607-8) [facility] GLUCOSE (AUTOMATED)2020-06-27 21:36:00 Test Item Value Reference Range Interpretation Comments POCT GLU (test code = 2213275394) 85 mg/dL 70-110 Lab Interpretation (test code = Normal 03400-7) [facility] GLUCOSE (AUTOMATED)2020-06-27 19:55:00 Test Item Value Reference Range Interpretation Comments POCT GLU (test code = 4119302743) 91 mg/dL 70-110 Lab Interpretation (test code = Normal 20904-2) [facility] GLUCOSE (AUTOMATED)2020-06-27 19:01:00 Test Item Value Reference Range Interpretation Comments POCT GLU (test code = 1544855378) 125 mg/dL 70-110 H Lab Interpretation (test code = Abnormal 68655-4) [facility] GLUCOSE (AUTOMATED)2020-06-27 17:46:00 Test Item Value Reference Range Interpretation Comments POCT GLU (test code = 3174375320) 122 mg/dL 70-110 H Lab Interpretation (test code = Abnormal 03065-8) [facility] GLUCOSE (AUTOMATED)2020-06-27 16:56:00 Test Item Value Reference Range Interpretation Comments POCT GLU (test code = 7148560352) 98 mg/dL 70-110 Lab Interpretation (test code = Normal 24310-7) [facility] GLUCOSE (AUTOMATED)2020-06-27 14:47:00 Test Item Value Reference Range Interpretation Comments POCT GLU (test code = 2030247680) 209 mg/dL 70-110 H Lab Interpretation (test code = Abnormal 68056-7) [facility] GLUCOSE (AUTOMATED)2020-06-27 14:47:00 Test Item Value Reference Range Interpretation Comments POCT GLU (test code = 1067647950) 181 mg/dL 70-110 H Lab Interpretation (test code = Abnormal 04730-3) [facility] with [id number] 12:55:00 Test Item Value Reference Range Interpretation Comments WBC (test code = See_Comment L [Automated 6690-2) message] The sy stem which generated this result transmitted reference range : 4.20 - 10.70 10*3/?L. The reference range was not used to interpret this result as normal/abnormal . RBC (test code = See_Comment [Automated 789-8) message] The sy stem which generated this result transmitted reference range : 4.26 - 5.52 10*6/?L. The reference range was not used to interpret this result as normal/abnormal . HGB (test code = 12.9 g/dL 12.2-16.4 718-7) HCT (test code = 36.9 % 38.4-49.3 L 4544-3) MCV (test code = 82.6 fL 81.7-95.6 787-2) MCH (test code = 28.9 pg 26.1-32.7 785-6) MCHC (test code = 35.0 g/dL 31.2-35 786-4) RDW-SD (test code = 35.6 fL 38.5-51.6 L 99771-8) RDW-CV (test code = 11.8 % 12.1-15.4 L 788-0) PLT (test code = See_Comment L [Automated 777-3) message] The sy stem which generated this result transmitted reference range : 150 - 328 10*3/ ?L. The reference r kristina was not used to interpret this result as normal/abnormal . MPV (test code = 9.9 fL 9.8-13 65348-4) NRBC/100 WBC (test See_Comment [Automat ed code = 8285111913) message] The system which generated this result transmitted reference range : 0.0 - 10.0 /100 WBCs. The refer ence range was not u sed to interpret th is result as normal/abnormal . NRBC x10^3 (test code <0.01 See_Comment [Auto mated = 3259036477) message] The s ystem which generated this result transmitted reference range : 10*3/?L. The reference range was not used to interpret this result as normal/abnormal . GRAN MAT (NEUT) % 59.3 % (test code = 770-8) IMM GRAN % (test code 0.30 % = 3316918336) LYMPH % (test code = 33.7 % 736-9) MONO % (test code = 4.7 % 5905-5) EOS % (test code = 1.3 % 713-8) BASO % (test code = 0.7 % 706-2) GRAN MAT x10^3(ANC) 1.78 10*3/uL 1.99-6.95 L (test code = 4900616218) IMM GRAN x10^3 (test <0.03 0-0.06 code = 7462232476) LYMPH x10^3 (test code 1.01 10*3/uL 1.09-3.23 L = 731-0) MONO x10^3 (test code 0.14 10*3/uL 0.36-1.02 L = 742-7) EOS x10^3 (test code = 0.04 10*3/uL 0.06-0.53 L 711-2) BASO x10^3 (test code <0.03 0.01-0.09 = 704-7) Lab Interpretation Abnormal (test code = 67868-4) [facility] GLUCOSE (AUTOMATED)2020-06-27 12:26:00 Test Item Value Reference Range Interpretation Comments POCT GLU (test code = 2915800859) 238 mg/dL 70-110 H Lab Interpretation (test code = Abnormal 72893-1) [facility] GLUCOSE (AUTOMATED)2020-06-27 12:20:00 Test Item Value Reference Range Interpretation Comments POCT GLU (test code = 5231455220) 216 mg/dL 70-110 H Lab Interpretation (test code = Abnormal 85435-1) [facility]2020-12-17 12:03:00 Test Item Value Reference Range Interpretation Comments TRIG (test code = 5201814596) 810 mg/dL 30-170 H Lab Interpretation (test code = Abnormal 29950-9) [facility] (NA, K, CL, CO2, GLUCOSE, BUN, CREATININE, CA)2020-06-27 11:56:00 Test Item Value Reference Range Interpretation Comments NA (test code = 135 mmol/L 135-145 5129255543) K (test code = 3.6 mmol/L 3.5-5 2658088327) CL (test code = 104 mmol/L 98-108 5141583536) CO2 TOTAL (test code = 23 mmol/L 23-31 5589077317) AGAP (test code = 2-16 3001835353) BUN (test code = 5 mg/dL 7-23 L 0439050857) GLUCOSE (test code = 191 mg/dL 70-110 H 0512215181) CREATININE (test code = 0.56 mg/dL 0.6-1.25 L 8084357752) CALCIUM (test code = 8.9 mg/dL 8.6-10.6 5802651867) eGFR Calculation mL/min/1.73m2 (Non-) (test code = 0974353762) eGFR Calculation mL/min/1.73m2 () (test code = 0020826467) OSKAR (test code = OSKAR) Association of Glomerular Filtration Rate (GFR) and Staging of Kidney Disease* + --+ --+ ------+| GFR (mL/min/1.73 m2) ?| With Kidney Damage ?| ?Without Kidney Damage+ --------+ --------+ +| ?>90 ?| ?Stage one ?| ? Normal ?+ ---+ ---+ -------+| ?60-89 ?| ?Stage two ?| ? Decreased GFR ? + --+ --+ ------+| ?30-59 ?| ?Stage three ?| ? Stage three ? + --+ --+ ------+| ?15-29 ?| ?Stage four ? | ? Stage four ?+ ---+ ---+ -------+| ?<15 (or dialysis) ? ?| ?Stage five ? | ? Stage five ?+ ---+ ---+ -------+ *Each stage assumes the associated GFR level has been in effect for at least three months. ?Stages 1 to 5, with or without kidney disease, indicate chronic kidney disease. Notes: Determination of stages one and two (with eGFR >59mL/min/1.73 m2) requires estimation of kidney damage for at least three months as defined by structural or functional abnormalities of the kidney, manifested by either:Pathological abnormalities or Markers of kidney damage (including abnormalities in the composition of the blood or urine or abnormalities in imaging tests). Lab Interpretation Abnormal (test code = 68796-4) [facility]2020-[facility]-17 11:55:00 Test Item Value Reference Range Interpretation Comments LIPASE (test code = 5801185878) 40 U/L 0-220 Lab Interpretation (test code = Normal 51356-2) [facility] GLUCOSE (AUTOMATED)2020-06-27 09:09:00 Test Item Value Reference Range Interpretation Comments POCT GLU (test code = 5309062427) 185 mg/dL 70-110 H Lab Interpretation (test code = Abnormal 17280-2) [facility] GLUCOSE (AUTOMATED)2020-06-27 08:09:00 Test Item Value Reference Range Interpretation Comments POCT GLU (test code = 4654658099) 124 mg/dL 70-110 H Lab Interpretation (test code = Abnormal 04162-3) [facility] GLUCOSE (AUTOMATED)2020-06-27 07:11:00 Test Item Value Reference Range Interpretation Comments POCT GLU (test code = 3682084387) 104 mg/dL 70-110 Lab Interpretation (test code = Normal 93958-0) [facility] GLUCOSE (AUTOMATED)2020-06-27 06:04:00 Test Item Value Reference Range Interpretation Comments POCT GLU (test code = 0271944988) 97 mg/dL 70-110 Lab Interpretation (test code = Normal 48325-0) [facility] GLUCOSE (AUTOMATED)2020-06-27 04:54:00 Test Item Value Reference Range Interpretation Comments POCT GLU (test code = 3483045088) 54 mg/dL 70-110 L Lab Interpretation (test code = Abnormal 11986-5) [facility] GLUCOSE (AUTOMATED)2020-06-27 04:04:00 Test Item Value Reference Range Interpretation Comments POCT GLU (test code = 0899406180) 88 mg/dL 70-110 Lab Interpretation (test code = Normal 09857-0) [facility] GLUCOSE (AUTOMATED)2020-06-27 03:32:00 Test Item Value Reference Range Interpretation Comments POCT GLU (test code = 0727649879) 104 mg/dL 70-110 Lab Interpretation (test code = Normal 98637-1) [facility]2020-06-27 03:05:00 Test Item Value Reference Range Interpretation Comments POCT GLU (test code = 9188618951) 68 mg/dL 70-110 L Lab Interpretation (test code = Abnormal 26075-5) [facility] 02:05:00 Test Item Value Reference Range Interpretation Comments POCT GLU (test code = 1373673177) 113 mg/dL 70-110 H Lab Interpretation (test code = Abnormal 23305-7) [facility] (AUTOMATED)2020-06-27 01:21:00 Test Item Value Reference Range Interpretation Comments POCT GLU (test code = 1660723934) 122 mg/dL 70-110 H Lab Interpretation (test code = Abnormal 15253-9) [facility] GLUCOSE (AUTOMATED)2020-06-27 00:09:00 Test Item Value Reference Range Interpretation Comments POCT GLU (test code = 8074286312) 125 mg/dL 70-110 H Lab Interpretation (test code = Abnormal 12858-3) [facility]2020-12-16 23:47:00 Test Item Value Reference Range Interpretation Comments TRIG (test code = 9594151733) 1086 mg/dL 30-170 H Lab Interpretation (test code = Abnormal 30606-8) [facility] GLUCOSE (AUTOMATED)2020-06-26 23:12:00 Test Item Value Reference Range Interpretation Comments POCT GLU (test code = 3326665448) 175 mg/dL 70-110 H Lab Interpretation (test code = Abnormal 52741-6) [facility] 23:12:00 Test Item Value Reference Range Interpretation Comments POCT GLU (test code = 6849514898) 81 mg/dL 70-110 Lab Interpretation (test code = Normal 02853-5) [facility]2020-06-26 22:50:00 Test Item Value Reference Range Interpretation Comments POCT GLU (test code = 9589208302) 88 mg/dL 70-110 Lab Interpretation (test code = Normal 55190-6) [facility] GLUCOSE (AUTOMATED)2020-06-26 22:26:00 Test Item Value Reference Range Interpretation Comments POCT GLU (test code = 7056647425) 91 mg/dL 70-110 Lab Interpretation (test code = Normal 50004-6) [facility]2020-06-26 17:06:00 Test Item Value Reference Range Interpretation Comments POCT GLU (test code = 6357226268) 227 mg/dL 70-110 H Lab Interpretation (test code = Abnormal 13801-4) [facility]lineLOW-DENSITY LIPOPROTEIN, [id number] 16:31:00 Test Item Value Reference Range Interpretation Comments dLDL Chol (test code = <30 See_Comment [Au tomated message] 31102-0) The system [email or web address] generated this result transmitted ref erence range: <130 mg/ dL. The reference range was not used to int erpret this result as normal/abnormal . Lab Interpretation (test Normal code = 22458-0) [facility]lineLIPID PANEL (48773)(TOTAL CHOLESTEROL, TRIGLYCERIDES, HDL)2020-06-26 13:16:00 Test Item Value Reference Range Interpretation Comments CHOL (test code = 217 mg/dL 120-200 H 8587580061) HDL (test code = 13 mg/dL >40 L 5905177154) HDLC RATIO (test code = See_Comment H [Au tomated message] 0590645456) The system [email or web address] generated this result transmit j luis reference range : <=5.0. The refe rence range was not u sed to interpret th is result as normal/abnormal . TRIG (test code = 1337 mg/dL 30-170 H 2187900411) LDL CHOL (test code = Unable to calculate 02637-6) LDL due to elev ated triglyceride le abena greater than 40 0 mg/dL. VLDL (test code = Unable to calculate 9134734004) VLDL due to yohana vated triglyceride le abena greater than 71 0 mg/dL. Lab Interpretation Abnormal (test code = 59901-8) [facility]2020-12-16 13:03:00 Test Item Value Reference Range Interpretation Comments LIPASE (test code = 6485423647) 60 U/L 0-220 Lab Interpretation (test code = Normal 38503-3) [facility]OSYL[facility] HEMOGLOBIN (A1C)2020-06-26 12:46:00 Test Item Value Reference Range Interpretation Comments HGB A1C (test code = 9.2 % 4-6 H 4548-4) OSKAR (test code = OSKAR) %A1C (NGSP) Interpretation (ADA)4.8-5.6 ? ? Normal or (Non-Diabetic Range)5.7-6.4 ? ? Increased Risk (Pre-Diabetic)>6.5 ?Diabetes Indicated Lab Interpretation Abnormal (test code = 93805-5) [facility]OMATED)2020-06-26 11:24:00 Test Item Value Reference Range Interpretation Comments POCT GLU (test code = 2280581087) 209 mg/dL 70-110 H Lab Interpretation (test code = Abnormal 16518-5) [facility] ABDOMEN PELVIS W [id number] 05:55:56Impression: 1. Peripancreatic inflammation, likely representing acute pancreatitis. 1.7cm area of hypoattenuation in the pancreatic uncinate process may representfocal necrosis or developing pseudocyst.2. 4.8 cm hypodense structure in the pancreatic tail may represent apseudocyst. Cystic pancreatic neoplasm is not excluded. Given size greaterthan 3 cm, cyst aspiration is suggested, if clinically indicated.Otherwise, follow-up MRI of the pancreas and MRCP is suggested every 6months for 2 years.3. Duodenal mucosal fold thickening, which may represent reactiveduodenitis.4. Mild diffuse colonic wall thickening, consistent with colitis.5. Moderate colonic diverticulosis without evidence of diverticulitis.6. No free air. Trace pelvic free fluid.7. 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 Resultsplenomegaly with varices demonstrated in the upper abdomen. RL: [id number]: [id number] End of Report Exam: CT Abdomen and Pelvis With Contrast, 06/25/2020 9:45 PM. Ordering Physician: KOFI BEEBE. History: Acute, generalized abdominal pain. Technique: CT abdomen and pelvis was obtained with intravenous contrast. CT was performed according to ALARA (As Low As Reasonably Achievable). Comparison: None. Findings: CT Abdomen:Lung bases are clear. Heart size is normal. Gallbladder is surgically absent. There is peripancreaticfat stranding.Within the pancreatic tail, there is a hypodense 4.8 x 4.2 cm structure. Asmall area of hypoattenuation in the pancreatic uncinate process measuresapproximately 1.7 cm. There is no pancreatic or biliary duct dilatation.Spleen is enlarged. 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 Multiple serpiginous enhancing structures inthe upper abdomen likely represent varices. The adrenal glands are normal. Kidneys are symmetric in size, enhancement, and contrast excretion. Thereis no hydronephrosis or hydroureter. There is no free air or free fluid. There is no abdominal adenopathy. Stomach is unremarkable. There is duodenal mucosal fold thickening.Diverticulum is noted at the third portion of the duodenum. There is noevidence of bowel obstruction. Appendix is normal. There is moderatecolonic diverticulosis. No focal peridiverticular inflammatory changes areseen. There is mild diffuse colonic wall thickening. There are degenerative changes of the spine. CT Pelvis:Pelvic small bowel loops are unremarkable. Urinary bladder is unremarkable. Prostate andseminal vesicles are notenlarged. There is trace pelvic free fluid. ?There is no pelvic adenopathy. Osseous structures are unremarkable. [facility], Radiant Results Inft User - 06/25/2020 11:56 PM CSTExam: CT Abdomen and Pelvis With Contrast, 06/25/2020 9:45 PM.Ordering Physician: KOFI BEEBE.History: Acute, generalized abdominal pain.Technique: CT abdomen and pelvis was obtained with intravenous contrast. CT was performed according to ALARA (As Low As Reasonably Achievable).Comparison: None.Findings: CT Abdomen:Lung bases are clear. Heart size is normal.Gallbladder is surgically absent. There is peripancreatic fat stranding.Within the pancreatic tail, there is a hypodense 4.8 x 4.2 cm structure. Asmall area of hypoattenuation in the pancreatic uncinate process measuresapproximately 1.7 cm. There is no pancreatic or biliary duct dilatation.Spleen is enlarged. 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 Multiple serpiginous enhancing structures inthe upper abdomen likely represent varices. The adrenal glands are normal.Kidneys are symmetric in size, enhancement, and contrast excretion. Thereis no hydronephrosis or hydroureter.There is no free air or free fluid. There is no abdominal adenopathy.Stomach is unremarkable. There is duodenal mucosal fold thickening.Diverticulum is noted at the third portion of the duodenum. There is noevidence of bowel obstruction. Appendix is normal. There is moderatecolonic diverticulosis. No focal peridiverticular inflammatory changes areseen. There is mild diffuse colonic wall thickening.There are degenerative changes of the spine. CT Pelvis:Pelvic small bowel loops are unremarkable.Urinary bladder is unremarkable. Prostate and seminal vesicles are notenlarged.There is trace pelvic free fluid. There is no pelvic adenopat hy.Osseous structures are unremarkable. IMPRESSIONImpression: 1. Peripancreatic inflammation, likelyrepresenting acute pancreatitis. 1.7cm area of hypoattenuation in the pancreatic uncinate process may representfocal necrosis or developing pseudocyst.2. 4.8 cm hypodense structure in the pancreatic tail may represent apseudocyst. Cystic pancreatic neoplasm is not excluded. Given size greaterthan 3 cm, cyst aspiration is suggested, if clinically indicated.Otherwise, follow-up MRI of the pancreas and MRCP is suggested every 6months for 2 years.3. Duodenal mucosal fold thickening, which may represent r eactiveduodenitis.4. Mild diffuse colonic wall thickening, consistent with colitis.5. Moderate colonic diverticulosis without evidence of diverticulitis.6. No free air. Trace pelvic free fluid.7. 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 Resultsplenomegaly with varices demonstrated in the upper abdomen. RL: 2824AFC: 56099Coe of Report [facility] (ID NOW RAPID TESTING)2020-06-26 03:44:00 Test Item Value Reference Range Interpretation Comments SARS-CoV-2 Rapid ID NOW Not Detected Not Detected (test code = 15118-5) OSKAR (test code = OSKAR) ID NOW COVID-19 Assay is an isothermal nucleic acid amplification test intended for the qualitative detection of nucleic acid from SARS-CoV-2 viral RNA in nasopharyngeal (REHABILITATION AIDE/SCHEDULER) specimens. It is used under Emergency Use Authorization (EUA) by FDA. The limit of detection (LOD) of the assay is 125 Genome Equivalents/mL. A positive result is indicative of the presence of SARS-CoV-2 RNA. ?Clinical correlation with patient history and other diagnostic [...] for repeat patient testing if clinically indicated. Lab Interpretation Normal (test code = 08548-8) [facility]. METABOLIC PANEL (14059)2020-06-26 03:17:00 Test Item Value Reference Range Interpretation Comments NA (test code = 136 mmol/L 135-145 8951198071) K (test code = 4.3 mmol/L 3.5-5 9454089583) CL (test code = 97 mmol/L 98-108 L 2137282602) CO2 TOTAL (test code = 31 mmol/L 23-31 5890194607) AGAP (test code = 2-16 9824167301) BUN (test code = 7 mg/dL 7-23 7051667147) GLUCOSE (test code = 220 mg/dL 70-110 H 7922800249) CREATININE (test code = 0.68 mg/dL 0.6-1.25 9907329640) TOTAL BILI (test code = 1.6 mg/dL 0.1-1.1 H 9027254298) CALCIUM (test code = 9.4 mg/dL 8.6-10.6 1249472440) T PROTEIN (test code = 7.6 g/dL 6.3-8.2 7070396114) ALBUMIN (test code = 4.4 g/dL 3.5-5 6077790463) ALK PHOS (test code = 103 U/L 34-122 5086980282) ALTv (test code = 113 U/L 5-50 H 1742-6) AST(SGOT) (test code = 87 U/L 13-40 H 9965117658) eGFR Calculation mL/min/1.73m2 (Non-) (test code = 7701172090) eGFR Calculation mL/min/1.73m2 () (test code = 1964373882) OSKAR (test code = OSKAR) Association of Glomerular Filtration Rate (GFR) and Staging of Kidney Disease* + --+ --+ ------+| GFR (mL/min/1.73 m2) ?| With Kidney Damage ?| ?Without Kidney Damage+ --------+ --------+ +| ?>90 ?| ?Stage one ?| ? Normal ?+ ---+ ---+ -------+| ?60-89 ?| ?Stage two ?| ? Decreased GFR ? + --+ --+ ------+| ?30-59 ?| ?Stage three ?| ? Stage three ? + --+ --+ ------+| ?15-29 ?| ?Stage four ? | ? Stage four ?+ ---+ ---+ -------+| ?<15 (or dialysis) ? ?| ?Stage five ? | ? Stage five ?+ ---+ ---+ -------+ *Each stage assumes the associated GFR level has been in effect for at least three months. ?Stages 1 to 5, with or without kidney disease, indicate chronic kidney disease. Notes: Determination of stages one and two (with eGFR >59mL/min/1.73 m2) requires estimation of kidney damage for at least three months as defined by structural or functional abnormalities of the kidney, manifested by either:Pathological abnormalities or Markers of kidney damage (including abnormalities in the composition of the blood or urine or abnormalities in imaging tests). Lab Interpretation Abnormal (test code = 56153-8) [facility]00 Test Item Value Reference Range Interpretation Comments LIPASE (test code = 9183562339) 57 U/L 0-220 Lab Interpretation (test code = Normal 78029-5) [facility] WITH [id number] 03:00:00 Test Item Value Reference Range Interpretation Comments WBC (test code = See_Comment [Automated 7363-2) message] The sy stem which generated this result transmitted reference range : 4.20 - 10.70 10*3/?L. The reference range was not used to interpret this result as normal/abnormal . RBC (test code = See_Comment [Automated 333-8) message] The sy stem which generated this result transmitted reference range : 4.26 - 5.52 10*6/?L. The reference range was not used to interpret this result as normal/abnormal . HGB (test code = 15.7 g/dL 12.2-16.4 718-7) HCT (test code = 42.9 % 38.4-49.3 4544-3) MCV (test code = 81.7 fL 81.7-95.6 787-2) MCH (test code = 29.9 pg 26.1-32.7 785-6) MCHC (test code = 36.6 g/dL 31.2-35 H 786-4) RDW-SD (test code = 35.3 fL 38.5-51.6 L 18582-4) RDW-CV (test code = 11.9 % 12.1-15.4 L 788-0) PLT (test code = See_Comment L [Automated 777-3) message] The sy stem which generated this result transmitted reference range : 150 - 328 10*3/ ?L. The reference r kristina was not used to interpret this result as normal/abnormal . MPV (test code = 9.3 fL 9.8-13 L 89196-8) NRBC/100 WBC (test See_Comment [Automat ed code = 7561083483) message] The system which generated this result transmitted reference range : 0.0 - 10.0 /100 WBCs. The refer ence range was not u sed to interpret th is result as normal/abnormal . NRBC x10^3 (test code <0.01 See_Comment [Auto mated = 7721563697) message] The s ystem which generated this result transmitted reference range : 10*3/?L. The reference range was not used to interpret this result as normal/abnormal . GRAN MAT (NEUT) % 74.6 % (test code = 770-8) IMM GRAN % (test code 0.30 % = 6165329844) LYMPH % (test code = 18.7 % 736-9) MONO % (test code = 4.8 % 5905-5) EOS % (test code = 1.1 % 713-8) BASO % (test code = 0.5 % 706-2) GRAN MAT x10^3(ANC) 4.71 10*3/uL 1.99-6.95 (test code = 3449296559) IMM GRAN x10^3 (test <0.03 0-0.06 code = 1370439045) LYMPH x10^3 (test code 1.18 10*3/uL 1.09-3.23 = 731-0) MONO x10^3 (test code 0.30 10*3/uL 0.36-1.02 L = 742-7) EOS x10^3 (test code = 0.07 10*3/uL 0.06-0.53 711-2) BASO x10^3 (test code 0.03 10*3/uL 0.01-0.09 = 704-7) Lab Interpretation Abnormal (test code = 89975-4) [facility] (AUTOMATED)2020-06-26 02:46:00 Test Item Value Reference Range Interpretation Comments POCT GLU (test code = 1463001076) 248 mg/dL 70-110 H Lab Interpretation (test code = Abnormal 25265-3) [facility]
[2021-09-20 20:29] LABS: Absolute Lymphocytes (CBC) 1.2 K/uL (0.7-4.9); Hematocrit 43.8 % (39.6-49.0); Lymphocytes % 26.3 % (15.3-44.8); MPV 6.8 fL (7.6-11.3); RBC Red Blood Cell Count 5.28 M/uL (4.33-5.43)
[2021-09-20] MEDS ORDERED: TETANUS & DIPHTHERIA TOX,ADULT 0.5 ML VIAL ONE (20:32)
[2021-09-20 20:40] LABS: Potassium 3.8 mmol/L (3.5-5.1)
--- NOTE | 2021-09-20 21:08 | RAD REPORT ---
EXAM DESCRIPTION: RAD - Hand Left 3 View - 09/20/2021 8:42 pm CLINICAL HISTORY: finger injury Pain and swelling COMPARISON: Hand Left 3 View dated 06/01/2020 FINDINGS: Tuft fracture is affect the fourth and fifth finger. No radiopaque foreign body is seen.
[2021-09-20] MEDS ORDERED: LORazepam 2 MG/ML VIAL ONE ×2 (22:16→22:18)
[2021-09-20] MEDS ORDERED: CEFAZOLIN SODIUM 1 GM/VIAL ONE (22:49)
[2021-09-20] MEDS ORDERED: NA CHLORIDE 0.9% 100 ML ONE (22:49)
--- NOTE | 2021-09-20 23:44 | ER ---
Nurse's Notes [facility] Name: Alex Auguste Age: 41 yrs Sex: Male : 1980 Arrival Date: 09/20/2021 Time: 19:49 Bed 19 Private MD: Diagnosis: Distal phalanx fracture;Finger laceration Presentation: 09/20 20:03 Chief complaint: Patient states: "My hand slipped when I was working on a fan"; Reports lp1 hand slipped into metal fan; lacerations noted to left 4th and 5th fingers. Coronavirus screen: At this time, the client does not indicate any symptoms associated with coronavirus-19. Ebola Screen: No symptoms or risks identified at this time. Complicating Factors: There are no complicating factors for this patient. Initial Sepsis Screen: Does the patient meet any 2 criteria? HR > 90 bpm. Does the patient have a suspected source of infection? No. Patient's initial sepsis screen is negative. Risk Assessment: Do you want to hurt yourself or someone else? Patient reports no desire to harm self or others. Onset of symptoms was September 20, 2021. 20:03 Method Of Arrival: Ambulatory lp1 20:03 Acuity: [place] 2 lp1 Triage Assessment: 21:21 Injury Description: Laceration sustained to left hand. lr4 Historical: - Allergies: 20:05 No Known Allergies; lp1 - Home Meds: 21:10 Lantus 100 unit/mL Sub-Q soln 36 unit nightly [Active]; Novolog 100 unit/mL Sub-Q soln lr4 before meals [Active]; - PMHx: 20:05 Chronic Pancreatitis; Diabetes - IDDM; GERD; High Triglycerides; lp1 - PSHx: 20:05 Cholecystectomy; lp1 - Immunization history:: Adult Immunizations up to date. - Social history:: Smoking status: Patient reports the use of cigarette tobacco products, smokes one pack cigarettes per day. Screenin:09 Abuse screen: Denies threats or abuse. Nutritional screening: No deficits noted. lr4 Tuberculosis screening: No symptoms or risk factors identified. Fall Risk None identified. Assessment: 21:01 General: Appears in no apparent distress. comfortable, Behavior is calm, cooperative, lr4 anxious. Pain: Complains of pain in left hand Pain Quality of pain is described as numb, Pain began suddenly, 1 hour ago. Neuro: No deficits noted. Cardiovascular: No deficits noted. Respiratory: No deficits noted. Musculoskeletal: Reports numbness in left hand. Injury Description: Avulsion sustained to left jand 4th and 5th digit. 21:21 Injury Description: Laceration is jagged, 0.5 to 2.5 cm long, bleeding moderately. lr4 23:52 General: Pt departed ed ambulatory with all personal effects, . lr4 Vital Signs: 20:03 BP 139 / 117; Pulse 128; Resp 20; Temp 97.7; Pulse Ox 100% on R/A; Weight 86.18 kg (R); lp1 Height 5 ft. 10 in. (177.80 cm); Pain 10/10; 21:01 BP 158 / 113; Pulse 115; Resp 20; Pulse Ox 100% on R/A; lr4 23:04 BP 163 / 78; Pulse 80; Resp 18; Pulse Ox 98% ; lr4 20:03 Body Mass Index 27.26 (86.18 kg, 177.80 cm) lp1 ED Course: 19:49 Patient arrived in ED. wm 19:52 Joey Luis PA is PHCP. jmm 19:52 Venkat Lyon MD is Attending Physician. jmm 20:00 Inserted saline lock: 20 gauge in right antecubital area, using aseptic technique. lp1 20:05 Triage completed. lp1 20:05 Arm band placed on right wrist. lp1 20:24 CBC with Diff Sent. st1 20:24 BMP Sent. st1 21:00 Vivi Chamorro, RN is Primary Nurse. lr4 21:09 No provider procedures requiring assistance completed. lr4 21:10 Patient has correct armband on for positive identification. Bed in low position. Call lr4 light in reach. Adult w/ patient. Pulse ox on. NIBP on. 21:49 Hand Left 3 View XRAY Sent. lr4 23:44 Merlin King MD is Referral Physician. jmm 23:52 IV discontinued, intact, bleeding controlled, No redness/swelling at site. Pressure lr4 dressing applied. Administered Medications: 20:36 Drug: Tetanus-Diphtheria Toxoid Adult 0.5 ml {Paper Bag Maker: tracx. Exp: kalia 11/20/2021. Lot #: [id number]. } Route: IM; Site: right deltoid; 20:37 Follow up: Response: No adverse reaction kalia 21:48 Follow up: Response: No adverse reaction lr4 22:17 Drug: Ativan (LORazepam) 1 mg Route: IVP; Site: right antecubital; lr4 22:17 Follow up: Response: No adverse reaction; Marked relief of symptoms; Anxiety decreased; lr4 RASS: Alert and Calm (0) 22:45 Drug: Ancef (cefazolin) 1 grams Route: IVPB; Site: right antecubital; lr4 23:08 Follow up: IV Status: Completed infusion; IV Intake: 100ml lr4 Intake: 23:08 IV: 100ml; Total: 100ml. lr4 Outcome: 21:10 Condition: stable lr4 23:44 Discharge ordered by . pietro 23:52 Discharged to home lr4 23:52 Discharge instructions given to patient, family. 23:54 Patient left the ED. lr4 09/21 00:26 Patient left the ED. lg3 Signatures: Joey Luis PA PA jmm Pena, Laura RN RN lp1 Juany Gaffney RN RN lg3 Christie Gtz Brenda, RN RN bo Tingle, Shellie RN RN st1 Vivi Chamorro RN RN lr4 Corrections: (The following items were deleted from the chart) 09/20 21:21 20:05 Home Meds: Insulin SQ; lp1 lr4 21:21 21:10 Home Meds: Buspirone Oral; lr4 lr4 21:21 21:10 Home Meds: Creon Oral after meals; lr4 lr4 21:21 21:10 Home Meds: fish oil; lr4 lr4 21:21 21:10 Home Meds: gemfibrozil 600 mg Oral tab 1 tab 2 times per day; lr4 lr4 21:21 21:10 Home Meds: gemfibrozil Oral; lr4 lr4 21:21 21:10 Home Meds: Insulin: Novolog Sub-Q; lr4 lr4 21:21 21:10 Home Meds: Insulin: Regular Sub-Q; lr4 lr4 21:21 21:10 Home Meds: losartan Oral; lr4 lr4 21:21 21:10 Home Meds: Metoprolol Tartrate Oral 2 times per day; lr4 lr4 21:10 Home Meds: [place]-3 350 mg-235 mg- 90 mg-597 mg Oral cpDR; lr4 lr4 21:10 Home Meds: pantoprazole Oral once daily; lr4 lr4 21:10 Home Meds: Trintellix Oral; lr4 lr4
--- NOTE | 2021-09-20 23:44 | EDPHYS ---
Physician Documentation [facility] Name: Alex Auguste Age: 41 yrs Sex: Male : 1980 Arrival Date: 09/20/2021 Time: 19:49 Bed 19 Private MD: ED Physician Venkat Lyon HPI: 09/20 20:03 This 41 yrs old Male presents to ER via Ambulatory with complaints of Laceration - jmm Finger. 20:03 The patient or guardian reports injury, pain. Onset: The symptoms/episode jmm began/occurred acutely, just prior to arrival. Modifying factors: The symptoms are alleviated by nothing, the symptoms are aggravated by nothing. Associated signs and symptoms: Pertinent positives: numbness distally. The patient has not experienced similar symptoms in the past. This is a 46-year-old male with history of diabetes mellitus, pancreatitis, GERD, hypertriglyceridemia presents to the emergency department with lacerations to the left fourth and fifth distal phalanx is. Patient states this occurred after accidentally hitting an air conditioning fan at his home. Unsure on tetanus immunization.. Historical: - Allergies: 20:05 No Known Allergies; lp1 - Home Meds: 21:10 Lantus 100 unit/mL Sub-Q soln 36 unit nightly [Active]; Novolog 100 unit/mL Sub-Q soln lr4 before meals [Active]; - PMHx: 20:05 Chronic Pancreatitis; Diabetes - IDDM; GERD; High Triglycerides; lp1 - PSHx: 20:05 Cholecystectomy; lp1 - Immunization history:: Adult Immunizations up to date. - Social history:: Smoking status: Patient reports the use of cigarette tobacco products, smokes one pack cigarettes per day. ROS: 20:03 Constitutional: Negative for fever, chills, and weight loss, Cardiovascular: Negative jmm for chest pain, palpitations, and edema, Respiratory: Negative for shortness of breath, cough, wheezing, and pleuritic chest pain. 20:03 MS/extremity: Positive for injury or acute deformity, laceration. 20:03 All other systems are negative. Exam: 20:03 Constitutional: This is a well developed, well nourished patient who is awake, alert, jmm and in no acute distress. Head/Face: atraumatic. Eyes: EOMI, no conjunctival erythema appreciated ENT: Moist Mucus Membranes Neck: Trachea midline, Supple Chest/axilla: Normal chest wall appearance and motion. Cardiovascular: Regular rate and rhythm. No edema appreciated Respiratory: Normal respirations, no respiratory distress appreciated Abdomen/GI: Non distended, soft Back: Normal ROM 20:03 Skin: Laceration noted to the left fourth distal phalanx, partial phalanx avulsion/amputation noted to the left fifth distal phalanx. 20:03 Neuro: Orientation: is normal, Mentation: is normal, Memory: is normal. 20:03 Psych: Behavior/mood is pleasant, cooperative. Vital Signs: 20:03 BP 139 / 117; Pulse 128; Resp 20; Temp 97.7; Pulse Ox 100% on R/A; Weight 86.18 kg (R); lp1 Height 5 ft. 10 in. (177.80 cm); Pain 10/10; 21:01 BP 158 / 113; Pulse 115; Resp 20; Pulse Ox 100% on R/A; lr4 23:04 BP 163 / 78; Pulse 80; Resp 18; Pulse Ox 98% ; lr4 20:03 Body Mass Index 27.26 (86.18 kg, 177.80 cm) lp1 Laceration: 23:42 Wound Repair of 2cm ( 0.8in ) subcutaneous laceration to left little fingernail. Distal jmm neuro/vascular/tendon intact. Anesthesia: Digital block administered with 3 mls of 0.5% marcaine. Wound prep: Moderate cleansing with betadine by me. Skin closed with 4 5-0 Prolene using simple sutures and sterile technique. Patient tolerated well. 23:42 Wound Repair of 2cm ( 0.8in ) subcutaneous laceration to dorsal aspect of distal jmm phalanx of left ring finger. Distal neuro/vascular/tendon intact. Anesthesia: Digital block administered with 3 mls of 0.5% marcaine. Wound prep: Moderate cleansing with betadine by me. Skin closed with 4 5-0 Prolene using simple sutures and sterile technique. Patient tolerated well. MDM: 20:03 Patient medically screened. [facility] 23:42 Data reviewed: vital signs, nurses notes. Counseling: I had a detailed discussion with cristian the patient and/or guardian regarding: the historical points, exam findings, and any diagnostic results supporting the discharge/admit diagnosis, radiology results, the need for outpatient follow up, to return to the emergency department if symptoms worsen or persist or if there are any questions or concerns that arise at home. ED course: Patient given wound infection return precautions. Patient advised to follow-up with hand surgery for further evaluation otherwise given strict return precautions. Patient understood and agrees plan of care.. 09/20 20:19 Order name: CBC with Diff [facility] 09/20 20:19 Order name: BMP [facility] 09/20 20:03 Order name: Hand Left 3 View XRAY [facility] 09/20 20:30 Order name: CBC with Automated Diff; Complete Time: 20:31 EDMS 09/20 20:40 Order name: Basic Metabolic Panel; Complete Time: 20:44 EDMS 09/20 21:09 Order name: RAD; Complete Time: 21:18 EDMS 09/20 20:19 Order name: Saline Lock; Complete Time: 20:24 [facility] Administered Medications: 20:36 Drug: Tetanus-Diphtheria Toxoid Adult 0.5 ml {Fur Sewer: Assemblage. Exp: kalia 11/20/2021. Lot #: [id number]. } Route: IM; Site: right deltoid; 20:37 Follow up: Response: No adverse reaction kalia 21:48 Follow up: Response: No adverse reaction lr4 22:17 Drug: Ativan (LORazepam) 1 mg Route: IVP; Site: right antecubital; lr4 22:17 Follow up: Response: No adverse reaction; Marked relief of symptoms; Anxiety decreased; lr4 RASS: Alert and Calm (0) 22:45 Drug: Ancef (cefazolin) 1 grams Route: IVPB; Site: right antecubital; lr4 23:08 Follow up: IV Status: Completed infusion; IV Intake: 100ml lr4 Disposition: 09/21 03:08 Co-signature as Attending Physician, Venkat Lyon MD I agree with the assessment and rn plan of care. Attestation: The patient's history, exam findings, diagnostics, and a summary of any interventions or procedures was reviewed in detail with Joey VU. Disposition Summary: 09/20/21 23:44 Discharge Ordered Location: Home [facility] Condition: Stable [facility] Diagnosis - Distal phalanx fracture [facility] - Finger laceration [facility] Followup: [facility] - With: Merlin King MD - When: 2 - 3 days - Reason: Recheck today's complaints, Continuance of care, Re-evaluation by your physician Discharge Instructions: - Discharge Summary Sheet jm - Finger Fracture, Adult jm - Laceration Care, Adult [facility] Forms: - Medication Reconciliation Form [facility] - Thank You Letter sveta - Antibiotic Education [facility] - Prescription Opioid Use [facility] Prescriptions: - Cephalexin 500 mg Oral Capsule - take 1 capsule by ORAL route every 6 hours for 10 days; 40 capsule; Refills: 0, [facility] Product Selection Permitted Signatures: Dispatcher [employer] EDJoey Richardson PA PA jmm Nieto, Roman, MD MD rn Pena, Laura RN RN lp1 Anna Marie Hill RN Vivi Cornejo RN RN lr4 Corrections: (The following items were deleted from the chart) 09/20 21:21 20:05 Home Meds: Insulin SQ; lp1 lr4 21:21 21:10 Home Meds: Buspirone Oral; lr4 lr4 21:21 21:10 Home Meds: Creon Oral after meals; lr4 lr4 21:21 21:10 Home Meds: fish oil; lr4 lr4 21:21 21:10 Home Meds: gemfibrozil 600 mg Oral tab 1 tab 2 times per day; lr4 lr4 21:21 21:10 Home Meds: gemfibrozil Oral; lr4 lr4 21:21 21:10 Home Meds: Insulin: Novolog Sub-Q; lr4 lr4 21:21 21:10 Home Meds: Insulin: Regular Sub-Q; lr4 lr4 21:21 21:10 Home Meds: losartan Oral; lr4 lr4 21:21 21:10 Home Meds: Metoprolol Tartrate Oral 2 times per day; lr4 lr4 21:21 21:10 Home Meds: [place]-3 350 mg-235 mg- 90 mg-597 mg Oral cpDR; lr4 lr4 21:21 21:10 Home Meds: pantoprazole Oral once daily; lr4 lr4 21:21 21:10 Home Meds: Trintellix Oral; lr4 lr4
[2021-09-21 00:56] VITALS: TEMP 97.7
[2021-09-21 00:59] VITALS: BP 163/78; O2SAT 98
== END 2021-09-21 00:26 | disposition home or self-care (01) ==
LOC: ER 19:47
PROC: 0JQK0ZZ Repair Left Hand Subcutaneous Tissue and Fascia, Open Approach (ICD-10-PCS; principal; 2021-09-21)
DX: S62.635A Displaced fracture of distal phalanx of left ring finger, initial encounter for closed fracture (principal); S62.637A Displaced fracture of distal phalanx of left little finger, initial encounter for closed fracture; S61.217A Laceration without foreign body of left little finger without damage to nail, initial encounter; S61.215A Laceration without foreign body of left ring finger without damage to nail, initial encounter; W22.8XXA Striking against or struck by other objects, initial encounter; Y92.009 Unspecified place in unspecified non-institutional (private) residence as the place of occurrence of the external cause; Z23 Encounter for immunization; F17.210 Nicotine dependence, cigarettes, uncomplicated; E11.9 Type 2 diabetes mellitus without complications; Z79.4 Long term (current) use of insulin
CPT/HCPCS: 96365; 85025; 80048; 36415; 73130; 90471; 90714; 96375; 99284; 12002; J0690

== ENCOUNTER 2022-01-07 09:17 | Inpatient (IN) | payer BC ==
[2022-01-07 10:09] LABS: Hematocrit 41.3 % (39.6-49.0); Lymphocytes % 25.2 % (15.3-44.8); MCV 84.2 fL (80-100); MPV 7.2 fL (7.6-11.3); RBC Red Blood Cell Count 4.91 M/uL (4.33-5.43)
[2022-01-07] MEDS ORDERED: ONDANSETRON 4 MG/2 ML VIAL ONE ×3 (10:09→20:13)
[2022-01-07] MEDS ORDERED: Ringers Lactate 2,000 ML IV ONE (10:09)
[2022-01-07] MEDS ORDERED: HYDROMORPHONE HCL 1 MG/ML INJ ONE ×5 (10:09→23:52)
[2022-01-07] MEDS ORDERED: Ringers Lactate 1,000 ML IV ONE (12:43)
[2022-01-07 13:21] LABS: Albumin 3.4 g/dL (3.4-5.0); Bilirubin Total 0.6 mg/dL (0.2-1.0); Potassium 4.1 mmol/L (3.5-5.1); Protein, Total 5.9 g/dL (6.4-8.2)
--- NOTE | 2022-01-07 14:00 | RAD REPORT ---
EXAM DESCRIPTION: CT - Abdomen Pelvis W Contrast - 01/07/2022 1:47 pm CLINICAL HISTORY: Abdominal pain COMPARISON: 2019 TECHNIQUE: Computed axial tomography of the abdomen pelvis was obtained. 100 cc Isovue-300 was admin istered intravenously. Oral contrast was not requested which limits evaluation of bowel and appendix All CT scans are performed using dose optimization technique as appropriate and may include automated exposure control or mA/KV adjustment according to patient size. FINDINGS: A cholecystectomy. 4.1 centimeter cyst within the pancreatic tail without significant change. Remainder of the pancreas is normal size and density. Minimal stranding adjacent to pancreatic uncinate process. Liver, adrenals and kidneys are unremarkable. Spleen measures 15 centimeters. There are upper abdominal varices. Small umbilical hernia No evidence of diverticulitis IMPRESSION: Minimal acute pancreatitis 4.1 centimeter pancreatic pseudocyst without significant change from prior exam
--- NOTE | 2022-01-07 16:06 | ER ---
Nurse's Notes [facility] Name: Alex Auguste Age: 41 yrs Sex: Male : 1980 Arrival Date: 01/07/2022 Time: 09:18 Bed 15 Private MD: Diagnosis: Acute Pancreatitis Presentation: 01/07 09:23 Chief complaint: Patient states: he feels like he is having a flare up with his ap3 pancreatitis. Patient reports mid upper abdomen pain, nausea and vomiting for approx 3 days. Coronavirus screen: At this time, the client does not indicate any symptoms associated with coronavirus-19. Ebola Screen: No symptoms or risks identified at this time. Initial Sepsis Screen: Does the patient meet any 2 criteria? No. Patient's initial sepsis screen is negative. Does the patient have a suspected source of infection? No. Patient's initial sepsis screen is negative. Risk Assessment: Do you want to hurt yourself or someone else? Patient reports no desire to harm self or others. Onset of symptoms was January 04, 2022. 09:23 Method Of Arrival: Ambulatory ap3 09:23 Acuity: [place] 3 ap3 Triage Assessment: : General: Appears uncomfortable, Behavior is cooperative, appropriate for age. Pain: ap3 Complains of pain in epigastric area, right upper quadrant and left upper quadrant Pain currently is 10 out of 10 on a pain scale. Also complains of nausea. Neuro: Level of Consciousness is awake, alert, obeys commands, Oriented to person, place, time, situation, Appropriate for age. Cardiovascular: Patient's skin is warm and dry. Respiratory: Airway is patent Respiratory effort is even, unlabored. GI: Reports upper abdominal pain, diarrhea, nausea, vomiting. Historical: - Allergies: 09:25 No Known Allergies; ap3 - PMHx: 09:25 Chronic Pancreatitis; Diabetes - IDDM; GERD; High Triglycerides; ap3 - PSHx: 09:25 Cholecystectomy; ap3 - Immunization history:: Client reports receiving the 2nd dose of the Covid vaccine. - Social history:: Smoking status: Patient reports the use of cigarette tobacco products, smokes one pack cigarettes per day. Screenin: Abuse screen: Denies threats or abuse. Nutritional screening: Has had N/V for 3 or more ap3 days. Tuberculosis screening: No symptoms or risk factors identified. Fall Risk None identified. Assessment: 09:57 General: Appears in no apparent distress. uncomfortable, Behavior is calm, cooperative, jd3 appropriate for age. Pain: Complains of pain in epigastric area Pain does not radiate. Pain currently is 10 out of 10 on a pain scale. Quality of pain is described as sharp. Neuro: Mera Agitation-Sedation Scale (RASS): 0 - Alert and Calm Level of Consciousness is awake, alert, obeys commands, Oriented to person, place, time, situation. Cardiovascular: Capillary refill < 3 seconds Patient's skin is warm and dry. Respiratory: Airway is patent Respiratory effort is even, unlabored, Respiratory pattern is regular, symmetrical. GI: Abdomen is flat, non-distended, Reports upper abdominal pain, epigastric pain, intolerance of food, nausea, vomiting. : No signs and/or symptoms were reported regarding the genitourinary system. EENT: No signs and/or symptoms were reported regarding the EENT system. Derm: No signs and/or symptoms reported regarding the dermatologic system. Musculoskeletal: No signs and/or symptoms reported regarding the musculoskeletal system. 10:35 Reassessment: Patient and/or family updated on plan of care and expected duration. Pain jd3 level reassessed. Patient is alert, oriented x 3, equal unlabored respirations, skin warm/dry/pink. 12:07 Reassessment: Patient appears in no apparent distress at this time. Patient and/or jd3 family updated on plan of care and expected duration. Pain level reassessed. Patient is alert, oriented x 3, equal unlabored respirations, skin warm/dry/pink. Patient states feeling better. 13:44 Reassessment: Patient appears in no apparent distress at this time. Patient and/or jd3 family updated on plan of care and expected duration. Pain level reassessed. Patient is alert, oriented x 3, equal unlabored respirations, skin warm/dry/pink. Patient states feeling better. 16:00 Reassessment: Patient appears in no apparent distress at this time. Patient and/or jd3 family updated on plan of care and expected duration. Pain level reassessed. Patient is alert, oriented x 3, equal unlabored respirations, skin warm/dry/pink. 17:09 Reassessment: Patient appears in no apparent distress at this time. Patient and/or jd3 family updated on plan of care and expected duration. Pain level reassessed. Patient is alert, oriented x 3, equal unlabored respirations, skin warm/dry/pink. 19:00 Reassessment: Patient and/or family updated on plan of care and expected duration. Pain vc1 level reassessed. Patient is alert, oriented x 3, equal unlabored respirations, skin warm/dry/pink. 19:45 Reassessment: Patient and/or family updated on plan of care and expected duration. Pain vc1 level reassessed. Patient is alert, oriented x 3, equal unlabored respirations, skin warm/dry/pink. Pain: Complains of pain in left upper quadrant and right upper quadrant and epigastric area Pain does not radiate. Pain currently is 10 out of 10 on a pain scale. Vital Signs: 09:23 BP 129 / 87; Pulse 88; Resp 17; Temp 98.0; Pulse Ox 100% ; Weight 83.91 kg; Height 5 ap3 ft. 10 in. (177.80 cm); Pain 10/10; 10:59 BP 144 / 91; Pulse 72; Resp 16 S; Pulse Ox 100% on R/A; jd3 12:07 BP 113 / 77; Pulse 70; Resp 17 S; Pulse Ox 99% on R/A; jd3 13:44 BP 116 / 78; Pulse 71; Resp 16 S; Pulse Ox 100% on R/A; jd3 16:00 BP 142 / 92; Pulse 77; Resp 17 S; Pulse Ox 97% on R/A; jd3 17:09 BP 151 / 99; Pulse 71; Resp 16 S; Pulse Ox 96% on R/A; jd3 19:00 BP 138 / 100; Pulse 67; Resp 15; Temp 98.4; Pulse Ox 100% ; vc1 09:23 Body Mass Index 26.54 (83.91 kg, 177.80 cm) ap3 ED Course: 09:18 Patient arrived in ED. as 09:19 Joey Luis PA is PHCP. [facility] 09:19 Manpreet Nina MD is Attending Physician. jmm 09:25 Triage completed. ap3 09:26 Arm band placed on right wrist. ap3 09:47 Hasmukh Fan RN is Primary Nurse. jd3 09:59 Inserted saline lock: 20 gauge in right antecubital area, using aseptic technique. jd3 Blood collected. 10:34 Patient has correct armband on for positive identification. Bed in low position. Call j light in reach. Side rails up X 1. Adult w/ patient. Pulse ox on. NIBP on. 13:49 CT Abd/Pelvis - IV Contrast Only In Process Unspecified. EDMS 16:05 Chace Ramirez is Hospitalizing Provider. [facility] 20:00 No provider procedures requiring assistance completed. Patient admitted, IV remains in vc1 place. Administered Medications: 10:11 Drug: Lactated Ringers Solution 2000 ml Route: IV; Rate: 2000 bolus; Site: right d3 antecubital; 12:00 Follow up: Response: No adverse reaction; IV Status: Completed infusion jd3 10:11 Drug: Dilaudid (HYDROmorphone) 1 mg Route: IVP; Site: right antecubital; jd3 11:00 Follow up: Response: No adverse reaction; RASS: Alert and Calm (0) jd3 10:11 Drug: Zofran (Ondansetron) 4 mg Route: IVP; Site: right antecubital; jd3 11:00 Follow up: Response: No adverse reaction jd3 12:46 Drug: Lactated Ringers Solution 1000 ml Route: IV; Rate: 1 bolus; Site: right jd3 antecubital; 13:40 Follow up: Response: No adverse reaction; IV Status: Completed infusion jd3 12:46 Drug: Dilaudid (HYDROmorphone) 1 mg Route: IVP; Site: right antecubital; jd3 13:40 Follow up: Response: No adverse reaction; RASS: Alert and Calm (0) jd3 15:40 Drug: Dilaudid (HYDROmorphone) 1 mg Route: IVP; Site: right antecubital; jd3 16:40 Follow up: Response: No adverse reaction; RASS: Alert and Calm (0) jd3 17:47 Drug: Zofran (Ondansetron) 4 mg Route: IVP; Site: right antecubital; jd3 18:40 Follow up: Response: No adverse reaction jd3 Medication: 10:34 VIS not applicable for this client. jd3 Outcome: 16:05 Decision to Hospitalize by Provider. [facility] 20:00 Admitted to ER Hold. Please see [facility] for further documentation. vc1 20:00 Condition: good 20:00 Instructed on the need for admit. 01/08 09:47 Patient left the ED. iw Signatures: Dispatcher [employer] EDMS Joey Luis PA PA jmm Martinez, Amelia as Williams, Irene RN RN iw Hasmukh Fan RN RN jd3 Lacie Potter RN RN ap3 Antonia Fuentes RN RN vc1
--- NOTE | 2022-01-07 16:06 | EDPHYS ---
Physician Documentation [facility] Name: Alex Auguste Age: 41 yrs Sex: Male : 1980 Arrival Date: 01/07/2022 Time: 09:18 Bed 15 Private MD: ED Physician Manpreet Nina HPI: 01/07 09:30 This 41 yrs old Male presents to ER via Ambulatory with complaints of Vomiting, jmm Abdominal Pain. 09:30 The patient presents to the emergency department with nausea, vomiting, diarrhea, jmm abdominal pain. Onset: The symptoms/episode began/occurred gradually, 3 day(s) ago. Possible causes: flare up of bowel problem. The symptoms are aggravated by nothing. The symptoms are alleviated by nothing. This is a 41 year old male with a history of hypertriglyceridemia, chronic pancreatitis, DM that presents to the ED with complaints of abdominal pain, vomiting, diarrhea. Patient states symptoms are similar to previous pancreatitis flares. . Historical: - Allergies: 09:25 No Known Allergies; ap3 - PMHx: 09:25 Chronic Pancreatitis; Diabetes - IDDM; GERD; High Triglycerides; ap3 - PSHx: 09:25 Cholecystectomy; ap3 - Immunization history:: Client reports receiving the 2nd dose of the Covid vaccine. - Social history:: Smoking status: Patient reports the use of cigarette tobacco products, smokes one pack cigarettes per day. ROS: 09:30 Constitutional: Negative for fever, chills, and weight loss, Cardiovascular: Negative jmm for chest pain, palpitations, and edema, Respiratory: Negative for shortness of breath, cough, wheezing, and pleuritic chest pain. 09:30 Abdomen/GI: Positive for abdominal pain, nausea and vomiting, diarrhea. 09:30 All other systems are negative. Exam: 09:30 Constitutional: This is a well developed, well nourished patient who is awake, alert, jmm and in no acute distress. Head/Face: atraumatic. Eyes: EOMI, no conjunctival erythema appreciated ENT: Moist Mucus Membranes Neck: Trachea midline, Supple Chest/axilla: Normal chest wall appearance and motion. Cardiovascular: Regular rate and rhythm. No edema appreciated Respiratory: Normal respirations, no respiratory distress appreciated 09:30 Back: Normal ROM Skin: General appearance color normal MS/ Extremity: Moves all extremities, no obvious deformities appreciated, no edema noted to the lower extremities Neuro: Awake and alert Psych: Behavior is normal, Mood is normal, Patient is cooperative and pleasant 09:30 Abdomen/GI: Inspection: abdomen appears normal, Bowel sounds: normal, Palpation: abdomen is soft and non-tender, in all quadrants. Vital Signs: 09:23 BP 129 / 87; Pulse 88; Resp 17; Temp 98.0; Pulse Ox 100% ; Weight 83.91 kg; Height 5 ap3 ft. 10 in. (177.80 cm); Pain 10/10; 10:59 BP 144 / 91; Pulse 72; Resp 16 S; Pulse Ox 100% on R/A; jd3 12:07 BP 113 / 77; Pulse 70; Resp 17 S; Pulse Ox 99% on R/A; jd3 13:44 BP 116 / 78; Pulse 71; Resp 16 S; Pulse Ox 100% on R/A; jd3 16:00 BP 142 / 92; Pulse 77; Resp 17 S; Pulse Ox 97% on R/A; jd3 17:09 BP 151 / 99; Pulse 71; Resp 16 S; Pulse Ox 96% on R/A; jd3 19:00 BP 138 / 100; Pulse 67; Resp 15; Temp 98.4; Pulse Ox 100% ; vc1 09:23 Body Mass Index 26.54 (83.91 kg, 177.80 cm) ap3 MDM: 09:[address] [facility] 16:04 Data reviewed: vital signs, nurses notes. Counseling: I had a detailed discussion with [facility] the patient and/or guardian regarding: the historical points, exam findings, and any diagnostic results supporting the discharge/admit diagnosis, lab results, radiology results, the need for further work-up and treatment in the hospital. ED course: I discussed the patient with Dr. ramirez whom accepted the patient to his service. . 01/07 09:43 Order name: CBC with Diff; Complete Time: 10:11 [facility] 01/07 09:43 Order name: CMP; Complete Time: 13:23 [facility] 01/07 09:43 Order name: Lipase; Complete Time: 13:23 [facility] 01/07 15:52 Order name: Lactate; Complete Time: 18:40 [facility] 01/07 15:57 Order name: Triglycerides Level; Complete Time: 19:00 [facility] 01/07 16:35 Order name: SARS-COV-2 RT PCR (Document "Date of Onset" if Symptomatic); Complete Time: jd3 18:40 01/07 18:37 Order name: LDL, Direct; Complete Time: 19:00 EDMS 01/07 20:14 Order name: Basic Metabolic Panel; Complete Time: 01:37 EDMS 01/07 20:38 Order name: Urine Dipstick-Ancillary; Complete Time: 01:37 EDMS 01/07 23:57 Order name: Basic Metabolic Panel; Complete Time: 01:37 EDMS 01/08 03:56 Order name: CBC with Automated Diff EDMS 01/08 04:06 Order name: Basic Metabolic Panel EDMS 01/08 04:09 Order name: Phosphorus EDMS 01/08 04:09 Order name: Triglycerides Level EDMS 01/07 09:43 Order name: IV Saline Lock; Complete Time: 09:57 m 01/07 09:43 Order name: Labs collected and sent; Complete Time: 09:57 [facility] 01/07 09:43 Order name: Urine Dipstick-Ancillary (obtain specimen); Complete Time: 21:16 [facility] 01/07 11:07 Order name: Labs - recollect needed: recollect c7; Complete Time: 12:31 01/07 13:24 Order name: CT Abd/Pelvis - IV Contrast Only; Complete Time: 14:03 [facility] 01/08 04:09 Order name: Magnesium EDMS 01/08 04:09 Order name: Lipase EDMS 01/08 04:20 Order name: LDL, Direct EDMS 01/08 07:52 Order name: Basic Metabolic Panel EDMS Administered Medications: 10:11 Drug: Lactated Ringers Solution 2000 ml Route: IV; Rate: 2000 bolus; Site: right [facility] antecubital; 12:00 Follow up: Response: No adverse reaction; IV Status: Completed infusion jd3 10:11 Drug: Dilaudid (HYDROmorphone) 1 mg Route: IVP; Site: right antecubital; jd3 11:00 Follow up: Response: No adverse reaction; RASS: Alert and Calm (0) jd3 10:11 Drug: Zofran (Ondansetron) 4 mg Route: IVP; Site: right antecubital; [facility] 11:00 Follow up: Response: No adverse reaction jd3 12:46 Drug: Lactated Ringers Solution 1000 ml Route: IV; Rate: 1 bolus; Site: right jd3 antecubital; 13:40 Follow up: Response: No adverse reaction; IV Status: Completed infusion jd3 12:46 Drug: Dilaudid (HYDROmorphone) 1 mg Route: IVP; Site: right antecubital; jd3 13:40 Follow up: Response: No adverse reaction; RASS: Alert and Calm (0) jd3 15:40 Drug: Dilaudid (HYDROmorphone) 1 mg Route: IVP; Site: right antecubital; jd3 16:40 Follow up: Response: No adverse reaction; RASS: Alert and Calm (0) jd3 17:47 Drug: Zofran (Ondansetron) 4 mg Route: IVP; Site: right antecubital; jd3 18:40 Follow up: Response: No adverse reaction jd3 Disposition Summary: 01/07/22 16:05 Hospitalization Ordered Hospitalization Status: Observation [facility] Provider: Chace Ramirez Condition: Stable [facility] Problem: new [facility] Symptoms: are unchanged [facility] Bed/Room Type: Standard [facility] Location: Intensive Care Unit(01/08/22 08:13) [facility] Room Assignment: 1-(01/08/22 08:13) [facility] Diagnosis - Acute Pancreatitis [facility] Forms: - Medication Reconciliation Form [facility] - SBAR form [facility] Addendum: 01/25/2022 14:46 Co-signature as Attending Physician, Manpreet Nina MD I agree with the assessment and c connell plan of care. Signatures: Dispatcher [employer] EDMarylin Garcia Corey, MD MD cha Mickail, Joel, PA PA jmm Davies, Jonathon, RN RN jDc Tolbert RN RN anna1 Lacie Potter RN RN Perri Guerrero RN RN eb1 Brown, Sophia, PA PA sb3 Corrections: (The following items were deleted from the chart) 01/07 19:41 16:05 Telemetry/MedSurg (observation) [facility] 19:41 16:05 [facility] 01/08 08:13 01/07 19:41 [facility] ER HOLD [place] [id number] 01/08 08:13 06/29 19:41 ERHOLD- eb1 ja1
[2022-01-07 18:46] LABS: LDL, Direct 39 mg/dL (100-129)
--- NOTE | 2022-01-07 19:21 | P.HP ---
Certification for Inpatient Patient admitted to: Inpatient With expected LOS: <2 Midnights Patient will require the following post-hospital care: None Practitioner: I am a practitioner with admitting privileges, knowledge of patient current condition, hospital course, and medical plan of care. Services: Services provided to patient in accordance with Admission requirements found in Title 42 Section 412.3 of the Code of Federal Regulations Patient History Date of Service: 01/07/22 Reason for admission: Acute Pancreatitis History of Present Illness: Patient is a 41-year-old male with history of chronic pancreatitis, hypertriglyceridemia, diabetes mellitus type 2 and HTN who presented to the ED with complaints of epigastric pain, n/v/d x 3 days. He rates the pain as 10/10, describes it as a sharp type pain that radiates to his back. He reports symptoms feeling similar to prior pancreatitis episodes. Labs significant for WBC 4, triglycerides 1154, lipase 218. CT abd/pelv showed minimal acute pancreatitis with 4.1 pseudocyst unchanged from prior imaging. He was given fluids, several rounds of IV pain meds, and antiemetics in the ED with minimal improvement in symptoms. Patient is admitted to ICU for insulin drip. Allergies No Known Drug Allergies Allergy (Verified 05/29/18 03:33) NONE Home medications list reviewed: Yes Home Medications: Pantoprazole [Protonix Tab*] 1 tab PO BEDTIME 05/29/18 Trazodone HCl 1 tab PO BEDTIME PRN 05/29/18 gemfibroziL [Lopid*] 1 tab PO BIDAC 05/29/18 Amitriptyline [Elavil*] 25 mg PO BEDTIME 03/04/19 Buspirone HCl [Buspar] 10 mg PO BID 03/04/19 Gabapentin [Neurontin] 800 mg PO BID 03/04/19 Niacin (Inositol Niacinate) [Niacin 500 mg Capsule] 500 mg PO BEDTIME 03/04/19 Atorvastatin Calcium 20 mg PO DAILY #30 tablet 08/18/19 Calcium Carbonate/Vitamin D3 [Calcium 500 + Vit D 400 Tablet] 1 each PO BID #60 tablet 08/18/19 Fluoxetine HCl [Prozac] 1 tab PO DAILY 08/18/19 Metoprolol Tartrate [Lopressor*] 1 tab PO BID 08/18/19 Insuln Asp Prt/Insulin Aspart [Novolog Mix 70-30 Vial] 75 unit SQ BID #1 bottle 08/19/19 - Past Medical/Surgical History Diabetic: Yes -: Chronic Pancreatitis (due to high triglycerides) -: Type 2 Diabetes -: cholecystectomy -: fx wrist -: knee surg Psychosocial/ Personal History: Patient lives at home with his family. - Family History Mother -: Heart disease Notes: Recent [place] Father -: Stroke Notes: glaucoma - Social History Smoking Status: Light Tobacco smoker (1-9 cigarettes/day) Alcohol use: No CD- Drugs: No Caffeine use: Yes Place of Residence: Home Physical Examination - Studies Laboratory Data (last 24 hrs) 01/07/22 18:02: Triglycerides 1154 H, LDL Cholesterol Direct 39 L 01/07/22 12:27: Sodium 140, Potassium 4.1, BUN 11, Creatinine 0.85, Glucose 115 H, Total Bilirubin 0.6, AST 14 L, ALT 19, Alkaline Phosphatase 66, Lipase 218 01/07/22 09:54: WBC 4.0 L, Hgb 14.9, Hct 41.3, Plt Count 143 L Assessment and Plan - Problems (Diagnosis) (1) Acute on chronic pancreatitis Current Visit: Yes Status: Acute (2) Diabetes mellitus Current Visit: Yes Status: Chronic Qualifiers: Diabetes mellitus type: type 2 Diabetes mellitus penitentiary insulin use: with terminal clerk use Diabetes mellitus complication status: with hyperglycemia Qualified Code(s): E11.65 - Type 2 diabetes mellitus with hyperglycemia; 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 Recheck triglycerides in AM -Monitor and replete electrolytes per protocol -Reconcile and continue home medications -Lovenox for VTE ppx -Full code Discharge Plan: Home Plan to discharge in: 48 Hours - Advance Directives Does patient have a Living Will: No Does patient have a Durable POA for Healthcare: No - Code Status/Comfort Care Code Status Assessed: Yes (Full) Critical Care: No Time Spent Managing Pts Care (In Minutes): 50
[2022-01-07] MEDS ORDERED: INSULIN -REGULAR HUMAN 100 UNIT in NA CHLORIDE 0.9% 100 ML IV SCH (19:38)
[2022-01-07] MEDS: NACHLORIDE 0.45% 1,000 ML IV SCH ×2 (19:38→23:38)
[2022-01-07] MEDS: D5 0.45 NS 1,000 ML IV SCH (19:38)
[2022-01-07] MEDS ORDERED: HYDROMORPHONE HCL 1 MG/ML INJ IV PRN (19:41)
[2022-01-07] MEDS ORDERED: INSULIN -REGULAR HUMAN 50 UNIT/0.5 ML ML ONE (20:03)
[2022-01-07] MEDS ORDERED: NACHLORIDE 0.45% 1,000 ML IV ONE (20:03)
[2022-01-07] MEDS ORDERED: NA CHLORIDE 0.9% 100 ML ONE (20:04)
[2022-01-07] MEDS: ONDANSETRON 4 MG/2 ML VIAL IV PRN (20:08)
[2022-01-07 20:14] LABS: Potassium 4.1 mmol/L (3.5-5.1)
[2022-01-07] MEDS ORDERED: D5 0.45 NS 1,000 ML IV ONE (20:30)
[2022-01-07 20:38] LABS: Urine Blood Negative (Negative); Urine Glucose 2+ (Negative); Urine Protein Negative (Negative)
[2022-01-07] MEDS: PROMETHAZINE INJ 25 MG/ML AMP IV PRN (21:23)
[2022-01-07 23:56] LABS: Potassium 3.6 mmol/L (3.5-5.1)
[2022-01-08] MEDS: HYDROMORPHONE HCL 1 MG/ML INJ IV PRN ×6 (00:01→22:25)
[2022-01-08] MEDS ORDERED: DIPHENHYDRAMINE 50 MG/ML VIAL IV ONE (00:06)
[2022-01-08] MEDS ORDERED: DIPHENHYDRAMINE 50 MG/ML VIAL ONE (00:15)
[2022-01-08] MEDS: NICOTINE 21 MG/PAT TD SCH (00:54)
[2022-01-08] MEDS: D5 0.45 NS 1,000 ML IV SCH ×2 (02:18→10:48)
[2022-01-08 02:26] VITALS: BMI 26.5
[2022-01-08] MEDS: NACHLORIDE 0.45% 1,000 ML IV SCH ×5 (03:38→19:38)
[2022-01-08] MEDS ORDERED: D5 0.45 NS 1,000 ML IV ONE (03:39)
[2022-01-08 03:50] LABS: Absolute Lymphocytes (CBC) 1.2 K/uL (0.7-4.9); Hematocrit 36.8 % (39.6-49.0); Lymphocytes % 35.5 % (15.3-44.8); MCV 82.8 fL (80-100); MPV 7.2 fL (7.6-11.3); RBC Red Blood Cell Count 4.44 M/uL (4.33-5.43)
[2022-01-08] MEDS: ONDANSETRON 4 MG/2 ML VIAL IV PRN ×4 (03:54→23:20)
[2022-01-08] MEDS ORDERED: ONDANSETRON 4 MG/2 ML VIAL ONE (03:56)
[2022-01-08 04:06] LABS: Potassium 4.1 mmol/L (3.5-5.1)
[2022-01-08 04:08] LABS: Magnesium 1.7 mg/dL (1.8-2.4); Phosphorus 3.3 mg/dL (2.5-4.9)
[2022-01-08] MEDS ORDERED: HYDROMORPHONE HCL 1 MG/ML INJ ONE ×2 (04:33→09:31)
[2022-01-08] MEDS ORDERED: PROMETHAZINE INJ 25 MG/ML AMP ONE ×2 (05:35→07:24)
[2022-01-08] MEDS ORDERED: MAGNESIUM SULFATE 1 gm IVPB 1 GM/100 ML BAG IV ONE ×2 (05:44→05:55)
[2022-01-08] MEDS: PROMETHAZINE INJ 25 MG/ML AMP IV PRN ×3 (07:23→19:24)
[2022-01-08 07:52] LABS: Potassium 3.7 mmol/L (3.5-5.1)
[2022-01-08] MEDS: ENOXAPARIN 40 MG/0.4 ML SQ SCH (10:21)
[2022-01-08 11:50] LABS: Potassium 3.7 mmol/L (3.5-5.1)
--- NOTE | 2022-01-08 12:09 | P.PN ---
Subjective Date of Service: 01/08/22 Chief Complaint: Acute Pancreatitis Patient still having nausea and dry heaving. Lipase level has been normal. Triglyceride level is responded to the insulin drip. No recorded fever. Patient states abdominal pain is much better. Physical Examination - Vital Signs Temperature: 97 F Blood Pressure: 136/96 Pulse: 78 Respirations: 14 Pulse Ox (%): 98 - Physical Exam General: Alert, In no apparent distress, Oriented x3 HEENT: Mucous membr. moist/pink Neck: JVD not distended Respiratory: Clear to auscultation bilaterally, Normal air movement Cardiovascular: No edema, Normal S1 S2 Gastrointestinal: Normal bowel sounds, Soft and benign, Non-distended, No tenderness Musculoskeletal: No swelling Integumentary: No rashes, No erythema Neurological: Normal speech, Normal strength at 5/5 x4 extr Lymphatics: No axilla or inguinal lymphadenopathy - Studies Laboratory Data (last 24 hrs) 01/07/22 18:02: Triglycerides 1154 H, LDL Cholesterol Direct 39 L 01/07/22 12:27: Sodium 140, Potassium 4.1, BUN 11, Creatinine 0.85, Glucose 115 H, Total Bilirubin 0.6, AST 14 L, ALT 19, Alkaline Phosphatase 66, Lipase 218 Assessment And Plan - Current Problems (Diagnosis) (1) Acute on chronic pancreatitis Current Visit: Yes Status: Acute (2) Hypertension Current Visit: Yes Status: Chronic Qualifiers: Hypertension type: primary hypertension Qualified Code(s): I10 - Essential (primary) hypertension (3) Pancreatic pseudocyst/cyst Current Visit: Yes Status: Chronic (4) DM type 2 (diabetes mellitus, type 2) Current Visit: No Status: Chronic - Plan Keep n.p.o. except ice chips and water. Continue insulin drip Monitor fingerstick glucose, daily triglyceride level, daily lipase level. Supportive measures. Continue aggressive IV fluid with D5 normal saline. Serial abdominal examination. Antihypertensives as needed.
[2022-01-08] MEDS: D5NS KCL 20MEQ 20 MEQ/1,000 ML BAG IV SCH ×2 (12:50→19:29)
[2022-01-08] MEDS ORDERED: KCL 20 MEQ/100 mL IVPB 20 MEQ/100 ML BAG IV SCH (13:00)
[2022-01-08 16:49] LABS: Potassium 3.8 mmol/L (3.5-5.1)
[2022-01-09] MEDS: PROMETHAZINE INJ 25 MG/ML AMP IV PRN ×4 (02:15→21:07)
[2022-01-09] MEDS: HYDROMORPHONE HCL 1 MG/ML INJ IV PRN ×6 (02:15→21:05)
[2022-01-09 04:46] LABS: Hematocrit 36.8 % (39.6-49.0); Lymphocytes % 31.9 % (15.3-44.8); MCV 84.4 fL (80-100); MPV 7.5 fL (7.6-11.3); RBC Red Blood Cell Count 4.36 M/uL (4.33-5.43)
[2022-01-09] MEDS: D5NS KCL 20MEQ 20 MEQ/1,000 ML BAG IV SCH (05:00)
[2022-01-09 05:01] LABS: Phosphorus 2.3 mg/dL (2.5-4.9)
[2022-01-09 09:08] VITALS: O2SAT 99
[2022-01-09] MEDS ORDERED: D50W 25 GM/50 ML SYRINGE IV PRN (09:08)
[2022-01-09] MEDS ORDERED: GLUCAGON 1 MG/VIAL IM PRN (09:08)
[2022-01-09] MEDS ORDERED: DEXTROSE 10%-WATER 125 ML IV PRN (09:13)
[2022-01-09] MEDS: ENOXAPARIN 40 MG/0.4 ML SQ SCH (09:33)
[2022-01-09] MEDS: NICOTINE 21 MG/PAT TD SCH (09:33)
[2022-01-09] MEDS: NA CHLORIDE 0.9% 1,000 ML IV SCH ×2 (09:35→19:29)
--- NOTE | 2022-01-09 10:32 | P.PN ---
Subjective Date of Service: 01/09/22 Chief Complaint: Acute Pancreatitis Patient stated he is feeling better. He had an episode of nausea last night. Also reports mild abdominal pain Lipase level has been normal. Triglyceride level is hovering around 700 Physical Examination - Vital Signs Temperature: 96.9 F Blood Pressure: 124/88 Pulse: 78 Respirations: 15 Pulse Ox (%): 100 - Physical Exam General: Alert, In no apparent distress, Oriented x3 HEENT: Mucous membr. moist/pink Neck: JVD not distended Respiratory: Clear to auscultation bilaterally, Normal air movement Cardiovascular: No edema, Regular rate/rhythm, Normal S1 S2 Gastrointestinal: Normal bowel sounds, Soft and benign, Non-distended, No tenderness Musculoskeletal: No swelling, No tenderness Integumentary: No rashes, No erythema, No cyanosis Neurological: Normal strength at 5/5 x4 extr Assessment And Plan - Current Problems (Diagnosis) (1) Acute on chronic pancreatitis Current Visit: Yes Status: Acute (2) Hypertension Current Visit: Yes Status: Chronic Qualifiers: Hypertension type: primary hypertension Qualified Code(s): I10 - Essential (primary) hypertension (3) Pancreatic pseudocyst/cyst Current Visit: Yes Status: Chronic (4) DM type 2 (diabetes mellitus, type 2) Current Visit: No Status: Chronic - Plan Triglyceride level down to 700s. Discontinue insulin drip. Transition to subcutaneous insulin. Start clear liquid diet. Antiemetics as needed. Insulin sliding scale Continue IV fluid Supportive measures. Antihypertensives as needed. Downgrade to the medical floor.
[2022-01-09] MEDS: INSULIN -REGULAR HUMAN 50 UNIT/0.5 ML ML SQ SCH ×3 (11:30→21:13)
[2022-01-09] MEDS: FENOFIBRATE 160 MG TAB PO SCH (12:24)
[2022-01-09] MEDS: ONDANSETRON 4 MG/2 ML VIAL IV PRN ×2 (13:37→19:28)
[2022-01-09] MEDS ORDERED: HYDRALAZINE HCL 20 MG/ML VIAL IV PRN (18:06)
[2022-01-09] MEDS ORDERED: FENTANYL CITR 100 MCG/2 ML IV ONE (19:10)
[2022-01-10] MEDS: ONDANSETRON 4 MG/2 ML VIAL IV PRN ×3 (00:35→01:00)
[2022-01-10] MEDS: HYDROMORPHONE HCL 1 MG/ML INJ IV PRN ×6 (00:40→20:17)
[2022-01-10] MEDS: PROMETHAZINE INJ 25 MG/ML AMP IV PRN ×5 (00:45→20:35)
[2022-01-10 04:33] LABS: Absolute Lymphocytes (CBC) 0.9 K/uL (0.7-4.9); Hematocrit 38.9 % (39.6-49.0); Lymphocytes % 25.8 % (15.3-44.8); RBC Red Blood Cell Count 4.63 M/uL (4.33-5.43)
[2022-01-10 04:41] LABS: Magnesium 1.8 mg/dL (1.8-2.4); Phosphorus 3.2 mg/dL (2.5-4.9)
[2022-01-10] MEDS: NA CHLORIDE 0.9% 1,000 ML IV SCH ×2 (05:05→16:08)
[2022-01-10] MEDS ORDERED: MAGNESIUM SULFATE 1 gm IVPB 1 GM/100 ML BAG IV ONE (06:00)
[2022-01-10] MEDS ORDERED: POTASSIUM CL SA 10 MEQ TAB PO ONE (09:00)
[2022-01-10] MEDS: FENOFIBRATE 160 MG TAB PO SCH (09:27)
[2022-01-10] MEDS: ENOXAPARIN 40 MG/0.4 ML SQ SCH (09:28)
[2022-01-10] MEDS: INSULIN -REGULAR HUMAN 50 UNIT/0.5 ML ML SQ SCH ×4 (09:28→20:36)
[2022-01-10] MEDS: NICOTINE 21 MG/PAT TD SCH (09:28)
--- NOTE | 2022-01-10 15:52 | P.PN ---
Subjective Date of Service: 01/10/22 Chief Complaint: Acute Pancreatitis Subjective: Improving (Patient is improving still requiring pain medication tolerating liquids still has some abdominal discomfort) Review of Systems Genitourinary: As per HPI Physical Examination - Vital Signs Temperature: 98.5 F Blood Pressure: 144/92 Pulse: 90 Respirations: 18 Pulse Ox (%): 98 - Physical Exam General: Alert, Oriented x3, Mild distress Respiratory: Clear to auscultation bilaterally Cardiovascular: No edema, Normal S1 S2 Gastrointestinal: Tenderness (Mild generalized tenderness) Assessment And Plan - Current Problems (Diagnosis) (1) Acute pancreatitis Current Visit: Yes Status: Acute Plan: Patient is diabetic admitted with triglyceride induced acute pancreatitis with triglyceride levels over thousand he is improving tolerating liquids we will plan to advance diet blood pressure elevated I suspect is from the pain usually is not hypertensive patient does take insulin labs all reviewed continue to monitor advance diet possible discharge tomorrow Qualifiers: Pancreatitis type: other
[2022-01-11] MEDS: PROMETHAZINE INJ 25 MG/ML AMP IV PRN ×3 (00:20→12:14)
[2022-01-11] MEDS: HYDROMORPHONE HCL 1 MG/ML INJ IV PRN ×6 (00:20→20:14)
[2022-01-11] MEDS: NA CHLORIDE 0.9% 1,000 ML IV SCH ×3 (00:22→14:32)
[2022-01-11 05:09] LABS: Albumin 3.2 g/dL (3.4-5.0); Bilirubin Total 1.8 mg/dL (0.2-1.0); Potassium 3.4 mmol/L (3.5-5.1); Protein, Total 5.8 g/dL (6.4-8.2)
[2022-01-11 05:14] LABS: Magnesium 1.9 mg/dL (1.8-2.4)
[2022-01-11] MEDS ORDERED: POTASSIUM CL SA 10 MEQ TAB PO ONE (05:46)
[2022-01-11] MEDS: NICOTINE 21 MG/PAT TD SCH (08:26)
[2022-01-11] MEDS: ENOXAPARIN 40 MG/0.4 ML SQ SCH (08:26)
[2022-01-11] MEDS: FENOFIBRATE 160 MG TAB PO SCH (08:26)
[2022-01-11] MEDS: INSULIN -REGULAR HUMAN 50 UNIT/0.5 ML ML SQ SCH ×4 (09:04→20:13)
[2022-01-11] MEDS ORDERED: Oxycodone HCl/Acetaminophen 1 TAB TAB PO PRN (09:26)
--- NOTE | 2022-01-11 09:29 | P.PN ---
Subjective Date of Service: 01/11/22 Chief Complaint: Acute Pancreatitis Subjective: Improving (Still complaining of some abdominal discomfort requiring scheduled pain meds) Review of Systems 10-point ROS is otherwise unremarkable Gastrointestinal: As per HPI Physical Examination - Vital Signs Temperature: 97.6 F Blood Pressure: 136/84 Pulse: 74 Respirations: 18 Pulse Ox (%): 98 - Physical Exam General: Alert, In no apparent distress, Oriented x3 Gastrointestinal: Tenderness (Mild generalized tenderness no rebound) Assessment And Plan - Current Problems (Diagnosis) (1) Acute pancreatitis Current Visit: Yes Status: Acute Plan: Admitted with the pancreatitis improving triglycerides and lipase have been declining still has some tenderness 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
[2022-01-11] MEDS ORDERED: ALPRAZOLAM 0.25 MG TABLET PO ONE (16:29)
[2022-01-11 20:05] VITALS: BP 153/97; TEMP 98
--- NOTE | 2022-01-11 21:55 | P.DS ---
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 He rates the pain as 10/10, describes it as a sharp type pain that radiates to his back. He reports symptoms feeling similar to prior pancreatitis episodes. Labs significant for WBC 4, triglycerides 1154, lipase 218. CT abd/pelv showed minimal acute pancreatitis with 4.1 pseudocyst unchanged from prior imaging. He was given fluids, several rounds of IV pain meds, and antiemetics in the ED with minimal improvement in symptoms. Patient is admitted to ICU for insulin drip. Hospital Course: Patient was initially treated with insulin drip in the ICU. His triglycerides and lipase trended down. Insulin drip was stopped and he was downgraded to the floor. Diet was advanced and IV pain medications continued as needed. Patient improved. This evening, patient decided he wanted to leave AMA. He felt like he was going "insane" being stuck in the hospital room without being able to smoke cigarettes. He reports feeling much better. He states there was nothing wrong with his medical care, he is actually very satisfied with his stay. I informed patient the risks of leaving and advised him to return to the ED if his symptoms return or worsen. He understood and signed out AMA. Vital Signs/Physical Exam: Temp Pulse Resp BP Pulse Ox 98 F 83 18 153/97 H 99 01/11/22 20:00 01/11/22 20:00 01/11/22 20:00 01/11/22 20:00 01/11/22 20:00 Laboratory Data at Discharge: WBC 3.5 K/uL (4.3-10.9) L D 01/10/22 04:04 Hgb 13.9 g/dL (13.6-17.9) 01/10/22 04:04 Hct 38.9 % (39.6-49.0) L 01/10/22 04:04 Plt Count 121 K/uL (152-406) L 01/10/22 04:04 Sodium 137 mmol/L (136-145) 01/11/22 04:32 Sodium Cancelled 01/11/22 04:32 Potassium 3.9 mmol/L (3.5-5.1) 01/11/22 11:11 BUN 6 mg/dL (7-18) L 01/11/22 04:32 BUN Cancelled 01/11/22 04:32 Creatinine 0.68 mg/dL (0.55-1.3) 01/11/22 04:32 Creatinine Cancelled 01/11/22 04:32 Glucose 223 mg/dL (74-106) H 01/11/22 04:32 Glucose Cancelled 01/11/22 04:32 Phosphorus 3.2 mg/dL (2.5-4.9) 01/10/22 04:04 Magnesium 1.9 mg/dL (1.8-2.4) 01/11/22 04:32 Total Bilirubin 1.8 mg/dL (0.2-1.0) H 01/11/22 04:32 AST 12 U/L (15-37) L 01/11/22 04:32 ALT 38 U/L (12-78) 01/11/22 04:32 Alkaline Phosphatase 66 U/L (45-117) 01/11/22 04:32 Triglycerides 566 mg/dL (<150) H 01/11/22 04:32 LDL Cholesterol Direct 42 mg/dL (100-129) L 01/11/22 04:32 Lipase 103 U/L (73-393) 01/10/22 04:04 Home Medications: Insulin Aspart [Novolog Flexpen] See Protocol SQ ACHS 01/08/22 Insulin Glargine,Hum.rec.anlog [Lantus Solostar] 36 unit SQ DAILY 01/08/22 Fenofibrate [Tricor*] 160 mg PO DAILY #30 tab 01/10/22 New Medications: Fenofibrate [Tricor*] 160 mg PO DAILY #30 tab Followup: Gino Lira MD [Primary Care Provider] -
--- OUTSIDE RECORDS SUMMARY | 2022-01-28 02:15 | XMS REPORT | Continuity of Care Document ---
:1980 Author Organization [facility] t Address [address] [place] [address] Care Team Providers Name Role Phone Noel Coleman Attending Clinician Unavailable Shayla Randall Attending Clinician Doctor Unassigned, Name Attending Clinician Unavailable Cortney QUISPE R Attending Clinician Madeline MCDONNELL, M Attending Clinician Concepción FLORES, S Attending Clinician Rebeca FLORES Attending Clinician Freida FLORES, H Attending Clinician Noel GUAN Attending Clinician Unavailable Rebeca FLORES Admitting Clinician Payers Payer Name Policy Type Policy Number Effective Date Expiration Date S kat [facility] - [id number] 2019 00:00:00 OUT OF STATE Problems Condition Condition Condition Status Onset Resolution Last Treating Co mments Source Name Details Category Date Date Treatment Clinician Date Acute on Acute on Disease Active 2019-07 Unive rs chronic chronic 2-16 [place] pancreatit [place]it [place] Hypertrigl Hypertrigl Disease Active U nivers yceridemia yceridemia 6-20 it y of 00:00: [place] [address] Medical Branch Type 2 Type 2 Disease Active Univers diabetes diabetes 6-20 ity of mellitus mellitus 00:00: [place] with with 00 Medical complicati complicati Br anch on, with on, with long-term long-term current current use of use of insulin insulin Diplopia Diplopia Disease Active 2014-07 Unive rs 0-09 ity of 00:00: [place] 00 Medical Branch Diabetes Diabetes Disease Active Overview: Un cb mellitus mellitus 9-24 ICD10 ity of type 2, type 2, 00:00: Diagnosis [place] uncontroll uncontroll 00 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, ed, Loan Documents Closer Branch without without Utility complicati complicati ons ons HLD HLD Disease Active Univers (hyperlipi (hyperlipi 04-04 it y of demia) demia) 00:00: [place] 00 Medical Branch Essential Essential Disease Active Uni vers hypertensi hypertensi 9-24 it y of on, benign on, benign 00:[place]: [place] Vitamin D Vitamin D Disease Active Overview: Univers deficiency deficiency 924 ICD10 it y of 00:00: Diagnosis [place] 00 Term Medical Loan Documents Closer Branch Utility Allergies, Adverse Reactions, Alerts Allergy Allergy Status Severity Reaction(s) Onset Inactive Treating Comm ents Source Name Type Date Date Clinician No Known DA Active U [facility]25 Allergie 00:00: s 00 No Known DA Active U 0 [facility] Drug 3-21 Allergie 00:00: s 00 No Known DA Active U 0 [facility] Drug 3-17 Allergie 00:00: s 00 NO KNOWN Drug Active Univers ALLERGIE Class ity of S [facility] Social History Social Habit Start Date Stop Date Quantity Comments Source History of Snuff User University of tobacco use [facility] Alcohol Comment occasional Universit y of [facility] Exposure to Not sure University SARS-CoV-2 [place] Medical (event) Branch Alcohol intake 2020-06-25 2020-06-25 Current University of 00:00:00 00:00:00 non-drinker of [facility] alcohol (finding) Branch Tobacco use and 2020-06-25 2020-06-25 Current user Univers ity of exposure 00:00:00 00:00:00 [facility] Sex Assigned At [birth year] Universit y of 00:00:00 00:00:00 [facility] Smoking Status Start Date Stop Date Source Never smoker [facility] Medications Ordered Filled Start Stop Current Ordering Indication Dosage Frequency Signature Comments Components Source Medication Medication Date Date Medication? Clinician (SIG) Name Name morpHINE 2020- No 2mg 2 mg, Slow Un cb injection 2 11-16 IV Push, ity of mg 22:00: 22:00 ONCE, 1 [place] 00 :00 dose, [facility] Medical 11/16/20 at Branch 1700, STAT predniSONE 2020- No 20mg 20 mg, Univ ers (DELTASONE) 11-16 Oral, ity of tablet 20 21:30: 20:49 ONCE, 1 [place] mg [place] :00 dose, [facility] Medical 11/16/20 at Branch 1630, ANA MARIA amoxicillin 2020- No 1{tbl} 1 tablet, Univers -clavulanat 11-16 Oral, ity of e 21:30: 20:49 ONCE, 1 [place] (AUGMENTIN) 00 :00 dose, [facility] Med ical 875-125 mg 11/16/20 at [facility] per tablet 1630, 1 tablet Routine
Reason for Anti-Infec tive: Documented Infection< br>Documen j luis Infection Site: Abdominal< br>Duratio n of Therapy: 10 days iopamidol 2020- No [id number] 100mL 100 mL, Univers (ISOVUE 11-16 Intravenou ity o f 370-500 mL) 20:45: 19:30 s, ONCE, 1 [place] injection 00 :00 dose, [facility] Medic al 100 mL 11/16/20 at Branch 1545, Routine morpHINE 2020- No 4mg 4 mg, Slow Un cb injection 4 11-16- IV Push, ity of mg 20:15: 19:12 ONCE, 1 [place] 00 :00 dose, [facility] Medical 11/16/20 at Branch 1515, STAT ondansetron 2020- No 4mg 4 mg, Slow Univers (ZOFRAN 11-16 IV Push, ity of (PF)) 19:30: 18:28 ONCE, 1 [place] injection 4 00 :00 dose, [facility] Med ical mg 11/16/20 at Branch 1430, ANA MARIA NaCl 0.9% 2020- No 1000mL at 999 Uni vers (NS) bolus 508 05-08 mL/hr, ity of infusion 19:30: 21:16 1,000 mL, [place] 1,000 mL 00 :00 IV Medical Infusion, [place] ONCE, 1 dose, 11/16/20 at 1430, STAT amoxicillin 2020- Yes [id number] 1{tbl} Take 1 Univers -clavulanat 5-08 tablet by ity of e 875-125 00:00: mouth [place] mg per 00 every 12 Medical tablet (twelve) [place] hours. predniSONE Yes [id number] 1 PO BID x Univers 20 mg 5-08 4 days ity of tablet 00:00: [place] 00 [facility] ibuprofen 2020- No 800mg 800 mg, Uni vers (IBU) 17 01-17 Oral, ity of tablet 800 23:30: 22:44 ONCE, 1 [place] mg 00 :00 dose, [place] Medical 07/28/20 at Branch 1730, ANA MARIA Diclofenac Yes [id number] Apply to Univers Sodium 1-17 area(s) 2 ity of (VOLTAREN) 00:00: (two) [place] 1 % gel 00 times Medical daily. [place] Diclofenac Yes [id number] Apply to Univers Sodium 1-17 area(s) 2 ity of (VOLTAREN) 00:00: (two) [place] 1 % gel 00 times Medical daily. [place] Diclofenac Yes [id number] Apply to Univers Sodium 1-17 area(s) 2 ity of (VOLTAREN) 00:00: (two) [place] 1 % gel 00 times Medical daily. [place] insulin 2019-07 Yes 36U 36 Units, Unive rs glargine 2-20 Subcutaneo ity o f (LANTUS 03:00: , [facility], [place] U-100) 00 First dose Medical injection (after Branch 36 Units last modificati on) on 06/29/20 at 2100, Until Discontinu ed, Routine gemfibroziL 2019-07 Yes 600mg Take 600 U nivers 600 mg 2-20 mg by ity of tablet 01:33: mouth 2 [place] 08 (two) Medical times Branch daily before breakfast and dinner. metoprolol 2019-07 Yes 25mg Take 25 mg U nivers tartrate 25 2-20 by mouth 2 it y of mg tablet 01:33: (two) 08 times Medical daily. Branch Pantoprazol 2019-07 Yes 40mg Take 40 mg Univers e 40 mg 2-20 by mouth ity of delayed-rel 01:33: daily. [place] ease 08 Medical suspension Branch busPIRone 2019-07 Yes 10mg Take 10 mg Un cb 10 mg 2-20 by mouth 2 ity of tablet 01:33: (two) 08 times Medical daily. Branch niacin 500 2019-07 Yes 500mg Take 500 Un cb mg tablet 2-20 mg by ity of 01:33: mouth [place] 08 daily with Medical breakfast. Branch lipase-prot 2019-07 Yes [id number] Take Univ ers ease-amylas 2-20 36,000 ity of e (CREON) 01:33: Units by [place] 36,000-114, 08 mouth with Me dical 000- all meals. Branch 180,000 Take 2 unit CpDR capsules by mouth with meals and 1 with each snack. losartan 25 2019-07 Yes 25mg Take 25 mg Univers mg tablet 2-20 by mouth ity of 01:33: daily. [place] [address] Medical Branch vortioxetin 2019- Yes 10mg Take 10 mg Univers e 10 mg Tab 2-20 by mouth ity of 01:33: at [place] [address] bedtime. Medical Branch gemfibroziL 2019-07 Yes 600mg Take 600 U nivers 600 mg 2-20 mg by ity of tablet 01:33: mouth 2 08 (two) Medical times Branch daily before breakfast and dinner. metoprolol 2019- Yes 25mg Take 25 mg U nivers tartrate 25 2-20 by mouth 2 it y of mg tablet 01:33: (two) 08 times Medical daily. Branch Pantoprazol 2019-07 Yes 40mg Take 40 mg Univers e 40 mg 2-20 by mouth ity of delayed-rel 01:33: daily. [place] ease 08 Medical suspension Branch busPIRone 2019-07 Yes 10mg Take 10 mg Un cb 10 mg 2-20 by mouth 2 ity of tablet 01:33: (two) [place] 08 times Medical daily. Branch niacin 500 2019-07 Yes 500mg Take 500 Un cb mg tablet 2-20 mg by ity of 01:33: mouth [place] 08 daily with Medical breakfast. Branch lipase-prot 2020- Yes [id number] Take Univ ers ease-amylas 2-20 36,000 ity of e (CREON) 01:33: Units by [employer] 36,000-114, 08 mouth with Me dical 000- all meals. Branch 180,000 Take 2 unit CpDR capsules by mouth with meals and 1 with each snack. losartan 25 2019- Yes 25mg Take 25 mg Univers mg tablet 2-20 by mouth ity of 01:33: daily. [place] [address] Medical Branch vortioxetin 2020- Yes 10mg Take 10 mg Univers e 10 mg Tab 2-20 by mouth ity of 01:33: at [place] [address] bedtime. Medical Branch gemfibroziL 2020- Yes 600mg Take 600 U nivers 600 mg 2-20 mg by ity of tablet 01:33: mouth 2 [place] 08 (two) Medical times Branch daily before breakfast and dinner. metoprolol 2020- Yes 25mg Take 25 mg U nivers tartrate 25 2-20 by mouth 2 it y of mg tablet 01:33: (two) [place] [address] times Medical daily. Branch Pantoprazol 2019- Yes 40mg Take 40 mg Univers e 40 mg 2-20 by mouth ity of delayed-rel 01:33: daily. [place] ease Medical suspension Branch busPIRone 2019-07 Yes 10mg Take 10 mg Un cb 10 mg 2-20 by mouth 2 ity of tablet 01:33: (two) [place] [address] times Medical daily. Branch niacin 500 2019-07 Yes 500mg Take 500 Un cb mg tablet 2-20 mg by ity of 01:33: mouth [place] 08 daily with Medical breakfast. Branch lipase-prot 2020- Yes [id number] Take Univ ers ease-amylas 2-20 36,000 ity of e (CREON) 01:33: Units [place] 36,000-114, 08 mouth with Me dical 000- all meals. Branch 180,000 Take 2 unit CpDR capsules by mouth with meals and 1 with each snack. losartan 25 2019- Yes 25mg Take 25 mg Univers mg tablet 2-20 by mouth ity of 01:33: daily. [place] 08 Medical Branch vortioxetin 2019- Yes 10mg Take 10 mg Univers e 10 mg Tab 2-20 by mouth ity of 01:33: at [place] [address] bedtime. Medical Branch gemfibroziL 2019- Yes 600mg Take 600 U nivers 600 mg 2-20 mg by ity of tablet 01:33: mouth 2 [place] [address] (two) Medical times [place] daily before breakfast and dinner. metoprolol 2019- Yes 25mg Take 25 mg U nivers tartrate 25 2-20 by mouth 2 it y of mg tablet 01:33: (two) [place] [address] times Medical daily. Branch Pantoprazol 2019-07 Yes 40mg Take 40 mg Univers e 40 mg 2-20 by mouth ity of delayed-rel 01:33: daily. [place] ease 08 Medical suspension Branch busPIRone 2019-07 Yes 10mg Take 10 mg Un cb 10 mg 2-20 by mouth 2 ity of tablet 01:33: (two) [place] [address] times Medical daily. Branch niacin 500 2019-07 Yes 500mg Take 500 Un cb mg tablet 2-20 mg by ity of 01:33: mouth [place] [address] daily with Medical breakfast. Branch lipase-prot 2019- Yes [id number] Take Univ ers ease-amylas 2-20 36,000 ity of e (CREON) 01:33: Units by [place] 36,000-114, 08 mouth with Me dical 000- all meals. Branch 180,000 Take 2 unit CpDR capsules by mouth with meals and 1 with each snack. losartan 25 2019- Yes 25mg Take 25 mg Univers mg tablet 2-20 by mouth ity of 01:33: daily. [place] [address] Medical Branch vortioxetin 2019- Yes 10mg Take 10 mg Univers e 10 mg Tab 2-20 by mouth ity of 01:33: at [place] [address] bedtime. Medical Branch gemfibroziL 2019- Yes 600mg Take 600 U nivers 600 mg 2-20 mg by ity of tablet 01:33: mouth 2 [place] [address] (two) Medical times [place] daily before breakfast and dinner. metoprolol 2019- Yes 25mg Take 25 mg U nivers tartrate 25 2-20 by mouth 2 it y of mg tablet 01:33: (two) [place] [address] times Medical daily. Branch Pantoprazol 2019-07 Yes [...] with Medical breakfast. Branch lipase-prot 2019- Yes [id number] Take Univ ers ease-amylas 2-20 36,000 ity of e (CREON) 01:33: Units by [place] 36,000-114, 08 mouth with Me dical 000- all meals. Branch 180,000 Take 2 unit CpDR capsules by mouth with meals and 1 with each snack. losartan 25 2019-07 Yes 25mg Take 25 mg Univers mg tablet 2-20 by mouth ity of 01:33: daily. Medical Branch vortioxetin 2019- Yes 10mg Take 10 mg Univers e 10 mg Tab 2-20 by mouth ity of 01:33: at [place] [address] bedtime. Medical Branch gemfibroziL 2019- Yes 600mg Take 600 U nivers 600 mg 2-20 mg by ity of tablet 01:33: mouth 2 [place] 08 (two) Medical times Branch daily before breakfast and dinner. metoprolol 2019- Yes 25mg Take 25 mg U nivers tartrate 25 2-20 by mouth 2 it y of mg tablet 01:33: (two) [place] 08 times Medical daily. Branch Pantoprazol 2019-07 [...] with Medical breakfast. Branch lipase-prot 2019- Yes [id number] Take Univ ers ease-amylas 2-20 36,000 ity of e (CREON) 01:33: Units [place] 36,000-114, 08 mouth with Me dical 000- all meals. Branch 180,000 Take 2 unit CpDR capsules by mouth with meals and 1 with each snack. losartan 25 2019-07 Yes 25mg Take 25 mg Univers mg tablet 2-20 by mouth ity of 01:33: daily. [place] [address] Medical Branch vortioxetin 2019-07 Yes 10mg Take 10 mg Univers e 10 mg Tab 2-20 by mouth ity of 01:33: at [place] [address] bedtime. Medical Branch insulin 2019-07- No 15U 15 Units, Univ ers glargine -06-29 Subcutaneo ity of (LANTUS 15:00: 14:07 us, ONCE, [place] U-100) 00 :00 1 dose, Medical injection Sat Branch 15 Units 06/29/20 at 0900, Routine morpHINE 2019-07 Yes 2mg 2 mg, Slow Uni vers injection 2 08-30 IV Push, ity of mg 08:15: Q6HPRN, [place] [address] Starting Medical Sat Branch 06/29/20 at 0215, Until Discontinu ed, Routine, Pain (scale 7-10) atorvastati 2019-07- No [id number] 40mg Take 1 Univers n 40 mg 08-30 tablet by ity of tablet 00:00: 05:59 mouth at [place] 00 :00 bedtime Medical for 30 Branch days. atorvastati 2019-07- No [id number] 40mg Take 1 Univers n 40 mg 08-30 tablet by ity of tablet 00:00: 05:59 mouth at [place] 00 :00 bedtime Medical for 30 Branch days. atorvastati 2019-07- No [id number] 40mg Take 1 Univers n 40 mg 08-30 tablet by ity of tablet 00:00: 05:59 mouth at [place] 00 :00 bedtime Medical for 30 Branch days. atorvastati 2019-07- No [id number] 40mg Take 1 Univers n 40 mg 08-30 tablet by ity of tablet 00:00: 05:59 mouth at [place] 00 :00 bedtime Medical for 30 Branch days. haloperidol 2019-07- No 5mg 5 mg, Slow Univers lactate 18 12-18 IV Push, ity of (HALDOL) 22:30: 22:51 ONCE NOW, [place] injection 5 00 :00 1 dose, Medic al mg Fri Branch 06/28/20 at 1630, Routine LORazepam 2019-07 2020- No 1mg 1 mg, Slow U nivers (ATIVAN) 08-29 IV Push, ity of injection 1 21:00: 20:16 ONCE, 1 [place] mg 00 :00 dose, Wed Medical 06/28/20 Branch at 1500, Routine FLUoxetine 2019- Yes 20mg 20 mg, Unive rs (PROZAC) 2-18 Oral, ity of capsule 20 20:30: DAILY, [place] mg 00 First dose Medical on Wed Branch 06/28/20 at 1430, Until Discontinu ed, Routine NaCl 0.9% 2019- Yes 1000mL at 100 Univ ers (NS) IV 2-18 mL/hr, IV ity of infusion 14:30: Infusion, [place] 1,000 mL 00 CONTINUOUS Medic al , Starting Branch Wed06/28/20 at 0830, Until Discontinu ed, Routine KCL 2019-07 2020- No 40meq 40 mEq, Univers (KLOR-CON 08-29 Oral, ity of M20) tablet 14:30: 14:38 ONCE, 1 [place] 40 mEq 00 :00 dose, Wed Medical 06/28/20 Branch at 0830, Routine Sliding 2019- Yes Subcutaneo Univ ers Scale 2-18 us, AC+HS, ity of Insulin-Reg 13:30: First dose [place] ular + Fsbg 00 on Wed Medica l Testing 06/28/20 Branch at 0730, Until Discontinu ed, Routine glucagon 2019- Yes 1mg 1 mg, Univers (GLUCAGEN 2-18 Intramuscu ity of DIAGNOSTIC 13:23: lar, PRN, [place] KIT) 08 Starting Medical injection 1 Wed Branch mg 06/28/20 at 0723, Until Discontinu ed, ANA MARIA, Blood Glucose < or = 70 mg/dL and patient is unable to swallow or has mental changes. dextrose 50 2019- Yes 25mL 25 mL, Univ ers % in water 2-18 Slow IV ity of (D50W) 13:23: Push, PRN, [place] injection 08 Starting Medica l 25 mL Fri Branch 06/28/20 at 0723, Until Discontinu ed, ANA MARIA, Blood Glucose < or = 70 mg/dL and patient is unable to swallow or has mental status changes. dextrose 50 2019-07- No 50mL 50 mL, Uni vers % in water 08-29 Slow IV ity o f (D50W) 07:00: 06:00 Push, [place] injection 00 :00 ONCE, 1 Medical 50 mL dose, Fri Branch 06/28/20 at 0100, ANA MARIA metoprolol 2019-07 Yes 25mg 25 mg, Unive rs tartrate 08-29 Oral, BID, ity o f (LOPRESSOR) 02:00: First dose [place] tablet 25 00 on Padmini Medical mg 06/27/20 Branch at 2000, Until Discontinu ed, Routine omega 2019-07 Yes 1000mg 1,000 mg, Unive rs 3-dha-epa-f 08-28 Oral, TID, it y of beckie oil 20:00: First dose [place] (FISH OIL) 00 on Padmini Medical capsule 06/27/20 Branch 1,000 mg at 1400, Until Discontinu ed, Routine
Reason for non-formul caitlyn use: PATIENT CURRENTLY TAKING NONFORMULA RY PRODUCT
tribunal member approving Non-formul caitlyn medication : ELLIS ALMEIDA morpHINE 2019-07- No 2mg 2 mg, Slow Un cb injection 2 08-28 IV Push, ity of mg 11:12: 08:04 Q4HPRN, [place] 04 :22 Starting Medical Padmini Branch 06/27/20 at 0512, Until 06/29/20 at 0204, Routine, Pain (scale 7-10) insulin 2019-07- No 5U/h 5 Units/hr Uni vers regular in 08-28 (5 mL/hr), it y of 0.9 % NaCl 11:11: 13:21 IV [place] (MYXREDLIN) 38 :56 Infusion, Med ical 100 TITRATE, Branch unit/100 mL Notify (1 unit/mL) hospitalis RTU IV t to infusion adjust insulin rate based on Triglyceri de level, Starting Padmini 06/27/20 at 0511
If glucose < 250, start D5W and titrate to keep glucose 100-180
atorvastati 2019-07 Yes 40mg 40 mg, Univ ers n (LIPITOR) 2-17 Oral, QHS, it y of tablet 40 03:00: First dose [place] mg 00 on [facility] 06/26/20 Branch at 2100, Until Discontinu ed, Routine gemfibroziL 2019-07 Yes 600mg 600 mg, Un cb (LOPID) 2-17 Oral, BID, ity of tablet 600 02:00: First dose [place] mg 00 on [facility] 06/26/20 Branch at 2000, Until Discontinu ed, Routine busPIRone 2019-07 Yes 10mg 10 mg, Univer s (BUSPAR) 2-17 Oral, BID, ity o f tablet 10 02:00: First dose [place] mg 00 on [facility] 06/26/20 Branch at 2000, Until Discontinu ed, Routine enoxaparin 2019-07 Yes 40mg 40 mg, Unive rs (LOVENOX) 2-16 Subcutaneo ity of injection 23:00: [place], DAILY, [place] 40 mg 00 First dose Medical on [facility] 06/26/20 at 1700, Until Discontinu ed, Routine morpHINE 2019-07 2020- No 4mg 4 mg, Slow Un cb injection 4 08-27 IV Push, ity of mg 16:30: 07:29 Q3HPRN, [place] 00 :00 Starting [facility] 06/26/20 at 1030, Until Padmini 06/27/20 at 0129, Routine, Pain (scale 7-10) insulin 2019-07 2020- No 8U/h 8 Units/hr Uni vers regular in 08-27 (8 mL/hr), it y of 0.9 % NaCl 16:16: 11:12 IV [place] (MYXREDLIN) 21 :30 Infusion, Med ical 100 TITRATE, Branch unit/100 mL Notify (1 unit/mL) hospitalis RTU IV t to infusion adjust insulin rate based on Triglyceri de level, Starting [facility] 06/26/20 at 1016
If glucose < 250, start D5W and titrate to keep glucose 100-180
proCHLORper 2019-07 Yes 10mg 10 mg, IV U nivers azine 16 Piggyback, ity of (COMPAZINE) 16:15: Q4HPRN, [place] 10 mg in 52 Starting Medical NaCl 0.9% Wed Branch (NS) 06/26/20 piggyback at 1015, Until Discontinu ed, 50 mL ketorolac 2019-07 Yes 30mg 30 mg, Univer s (TORADOL) 2-16 Slow IV ity of injection 16:15: Push, [place] 30 mg 35 Q6HPRN, Medical Starting Branch Wed06/26/20 at 1015, Until Discontinu ed, Routine, Pain (scale 4-6)
Fa culty member approving Restricted medication : ELLIS ALMEIDA NaCl 0.9% 2019-07 2020- No 1000mL at 125 Uni vers (NS) IV -16 12-18 mL/hr, ity of infusion 14:15: 05:51 1,000 mL, [place] 1,000 mL 00 :27 IV Medical Infusion, Branch CONTINUOUS , Starting Wed06/26/20 at 0815, Until Padmini 06/27/20 at 2351, ANA MARIA D5W 0.9% 2019-07- No 1000mL at 125 Univ ers NaCl (NS) -16 12-18 mL/hr, ity of IV infusion 14:15: 13:21 1,000 mL, [place] 1,000 mL 00 :40 IV Medical Infusion, Branch CONTINUOUS , Starting Wed06/26/20 at 0815, Until 06/28/20 at 0721, ANA MARIA Sliding 2019-07 2020- No Subcutaneo Uni vers Scale -16 -16 us, Q6H, ity of Insulin - 12:00: 21:57 First dose [place] Lispro 00 :55 on Wed Medical (HumaLOG) + 06/26/20 Bran ch Fsbg at 0600, Testing Until Discontinu ed, Routine proMETHazin 2019-07 Yes 12.5mg 12.5 mg, Univers e 2-16 IV ity of (PHENERGAN) 11:21: Piggyback, [place] 12.5 mg in 28 Q4HPRN, Medica l NaCl 0.9% Starting Branch (NS) 50 mL Wed IV 06/26/20 piggyback at 0521, Until Discontinu ed, Routine, Nausea and Vomiting (N/V) morpHINE 2019-07- No 4mg 4 mg, Slow Un cb injection 4 08-27 IV Push, ity of mg 11:21: 16:15 [facility], [place] 11 :46 Starting Medical [facility] Branch 06/26/20 at 0521, Until Wed06/26/20 at 1015, Routine, Pain (scale 7-10) NaCl 0.9% 2019-07- No 1000mL at 125 Uni vers (NS) IV 08-27 mL/hr, IV ity of infusion 08:00: 14:01 Infusion, [place] 1,000 mL 00 :34 CONTINUOUS Medic al , Starting Branch [facility] 06/26/20 at 0200, Until Wed06/26/20 at 0801, Routine dextrose 50 2019-07- No 25mL 25 mL, Uni vers % in water 08-27 Slow IV ity o f (D50W) 07:48: 13:26 Push, PRN, [place] injection 20 :23 Starting Medica l 25 mL [facility] Branch 06/26/20 at 0148, Until Wed06/28/20 at 0726, ANA MARIA, Blood Glucose < or = 70 mg/dL and patient is unable to swallow or has mental status changes. proMETHazin 2019-07- No 25mg 25 mg, IV Univers e 08-27 Piggyback, ity of (PHENERGAN) 07:45: 07:45 ONCE, 1 [place] 25 mg in 00 :00 dose, [facility] Medica l NaCl 0.9% 06/26/20 Branch (NS) 50 mL at 0145, piggyback 50 mL FENTanyl PF 2019-07- No 100ug 100 mcg, Univers (SUBLIMAZE 08-27 Slow IV ity o f (PF)) 07:45: 06:34 Push, [place] injection 00 :00 ONCE, 1 Medical 100 mcg dose, [facility] Branch 06/26/20 at 0145, Routine morpHINE 2019-07 2020- No 2mg 2 mg, Slow Un cb injection 2 08-27 IV Push, ity of mg 07:44: 11:21 [facility], [place] 30 :45 Starting Medical [facility] Branch 06/26/20 at 0144, Until Wed06/26/20 at 0521, Routine, Pain (scale 7-10) acetaminoph 2019-07 Yes 650mg 650 mg, Un cb en 08-27 Oral, ity of (TYLENOL) 07:44: Q6HPRN, [place] tablet 650 20 Starting Medic al mg Wed Branch 06/26/20 at 0144, Until Discontinu ed, Routine, Pain (scale 1-3) proMETHazin 2019-07- No 25mg 25 mg, IV [...] Branch at 2200, ANA MARIA FENTanyl PF 2019-07 2020- No 75ug 75 mcg, Un cb (SUBLIMAZE 08-27 Slow IV ity o f (PF)) 04:00: 03:09 Push, [place] injection 00 :00 ONCE, 1 Medical 75 mcg dose, Tue Branch 06/25/20 at 2200, Routine LOVAZA, 2019-0 Yes [id number] 3g Take 3 Univ ers omega-3-aci 7-31 capsules ity of d ethyl 00:00: by mouth [place] esters, 1 00 daily. Medical [facility] capsule LOVAZA, 2019-0 Yes [id number] 3g Take 3 Univ ers omega-3-aci 7-31 capsules ity of d ethyl 00:00: by mouth [place] esters, 1 00 daily. [facility] capsule LOVAZA, 0 Yes [id number] 3g Take 3 Univ ers omega-3-aci 7-31 capsules ity of d ethyl 00:00: by mouth [place] esters, 1 00 daily. [facility] capsule LOVAZA, 0 Yes [id number] 3g Take 3 Univ ers omega-3-aci 7-31 capsules ity of d ethyl 00:00: by mouth [place] esters, 1 00 daily. [facility] capsule LOVAZA, Yes [id number] 3g Take 3 Univ ers omega-3-aci 7-31 capsules ity of d ethyl 00:00: by mouth [place] esters, 1 00 daily. [facility] capsule LOVAZA, 0 Yes [id number] 3g Take 3 Univ ers omega-3-aci 7-31 capsules ity of d ethyl 00:00: by mouth [place] esters, 1 00 daily. [facility] capsule LOVAZA, 0 Yes [id number] 3g Take 3 Univ ers omega-3-aci 7-31 capsules ity of d ethyl 00:00: by mouth [place] esters, 1 00 daily. [facility] capsule LOVAZA, 0 Yes [id number] 3g Take 3 Univ ers omega-3-aci 7-31 capsules ity of d ethyl 00:00: by mouth [place] esters, 1 00 daily. [facility] capsule ondansetron Yes [id number] 4mg Take 1 Univers (ZOFRAN 5-03 tablet by ity of ODT) 4 mg 00:00: mouth [place] disintegrat 00 every 8 Medic al ing tablet (eight) Branch hours as needed for Nausea and Vomiting (N/V). ondansetron Yes [id number] 4mg Take 1 Univers (ZOFRAN 5-03 tablet by ity of ODT) 4 mg 00:00: mouth [place] disintegrat 00 every 8 Medic al ing tablet (eight) Branch hours as needed for Nausea and Vomiting (N/V). ondansetron 2019-0 Yes [id number] 4mg Take 1 Univers (ZOFRAN 5-03 tablet by ity of ODT) 4 mg 00:00: mouth [place] disintegrat 00 every 8 Medic al ing tablet (eight) Branch hours as needed for Nausea and Vomiting (N/V). ondansetron 2019-0 Yes [id number] 4mg Take 1 Univers (ZOFRAN 5-03 tablet by ity of ODT) 4 mg 00:00: mouth [place] disintegrat 00 every 8 Medic al ing tablet (eight) Branch hours as needed for Nausea and Vomiting (N/V). ondansetron 2019-0 Yes [id number] 4mg Take 1 Univers (ZOFRAN 5-03 tablet by ity of ODT) 4 mg 00:00: mouth [place] disintegrat 00 every 8 Medic al ing tablet (eight) Branch hours as needed for Nausea and Vomiting (N/V). ondansetron 2019-0 Yes [id number] 4mg Take 1 Univers (ZOFRAN 5-03 tablet by ity of ODT) 4 mg 00:00: mouth [place] disintegrat 00 every 8 Medic al ing tablet (eight) Branch hours as needed for Nausea and Vomiting (N/V). ondansetron 2019-0 Yes [id number] 4mg Take 1 Univers (ZOFRAN 5-03 tablet by ity of ODT) 4 mg 00:00: mouth [place] disintegrat 00 every 8 Medic al ing tablet (eight) Branch hours as needed for Nausea and Vomiting (N/V). ondansetron 2019-0 Yes [id number] 4mg Take 1 Univers (ZOFRAN 5-03 tablet by ity of ODT) 4 mg 00:00: mouth [place] disintegrat 00 every 8 Medic al ing tablet (eight) Branch hours as needed for Nausea and Vomiting (N/V). ondansetron 2019-0 Yes [id number] 4mg Take 1 Univers (ZOFRAN 5-03 tablet by ity of ODT) 4 mg 00:00: mouth [place] disintegrat 00 every 8 Medic al ing tablet (eight) Branch hours as needed for Nausea and Vomiting (N/V). ondansetron 2019-0 Yes [id number] 4mg Take 1 Univers (ZOFRAN 5-03 tablet by ity of ODT) 4 mg 00:00: mouth [place] disintegrat 00 every 8 Medic al ing tablet (eight) Branch hours as needed for Nausea and Vomiting (N/V). Insulin Yes QID, [facility] [place], 9- DX:E11.9 ity of Disposable, 00:00: [place] (BD INSULIN 00 Medical PEN NEEDLE Branch UF) 31 gauge x 5/16" Ndle Insulin Yes QID, [facility] [place], 04-05 DX:E11.9 ity of Disposable, 00:00: [place] (BD INSULIN Medical PEN NEEDLE Branch UF) 31 gauge x 5/16" Ndle Insulin Yes QID, [facility] [place], 04-05 DX:E11.9 ity of Disposable, 00:00: [place] (BD INSULIN Medical PEN NEEDLE Branch UF) 31 gauge x 5/16" Ndle Insulin Yes QID, [facility] [place], 04-05 DX:E11.9 ity of Disposable, 00:00: [place] (BD INSULIN Medical PEN NEEDLE Branch UF) 31 gauge x 5/16" Ndle Insulin Yes QID, [facility] [place], 04-05 DX:E11.9 ity of Disposable, 00:00: [place] (BD INSULIN Medical PEN NEEDLE Branch UF) 31 gauge x 5/16" Ndle Insulin Yes QID, [facility] [place], 04-05 DX:E11.9 ity of Disposable, 00:00: [place] (BD INSULIN Medical PEN NEEDLE Branch UF) 31 gauge x 5/16" Ndle atorvastati Yes [id number] 40mg Take 1 Univers n (LIPITOR) 9-25 tablet by ity of 40 mg 00:00: mouth at [place] tablet 00 bedtime. Medical Branch LOVAZA, Yes [id number] 2g Take 2 Uni vers omega-3-aci 9-25 capsules ity of d ethyl 00:00: [place] mouth [place] esters, 00 (two) Medical (LOVAZA) 1 times Branch gram daily capsule before breakfast and dinner. Insulin Yes QID, [facility] [place], 9 DX:E11.9 ity of Disposable, 00:00: [place] (BD INSULIN 00 Medical PEN NEEDLE Branch UF) 31 gauge x 5/16" Ndle atorvastati Yes [id number] 40mg Take 1 Univers n (LIPITOR) 9-25 tablet by ity of 40 mg 00:00: mouth at [place] tablet 00 bedtime. [facility] Branch [facility], Yes [id number] 2g Take 2 Uni vers omega-3-aci 9-25 capsules ity of d ethyl 00:00: [place] esters, 00 (two) Medical (LOVLAA) 1 times Branch gram daily capsule before breakfast and dinner. Insulin Yes QID, [facility] [place], 9- DX:E11.9 ity of Disposable, 00:00: [place] (BD INSULIN Medical PEN NEEDLE Branch UF) 31 gauge x 5/16" Ndle Insulin Yes QID, [facility] [place], 9-25 DX:E11.9 ity of Disposable, 00:00: [place] (BD INSULIN Medical PEN NEEDLE Branch UF) 31 gauge x 5/16" Ndle Insulin Yes QID, [facility] [place], 9-25 DX:E11.9 ity of Disposable, 00:00: [place] (BD INSULIN 00 Medical PEN NEEDLE Branch UF) 31 gauge x 5/16" Ndle atorvastati 2020- No [id number] 40mg Take 1 Univers n (LIPITOR) 04-05- tablet by it y of 40 mg 00:00: 00:00 mouth at [place] tablet 00 :00 bedtime. [facility], 2020- No [id number] 2g Take 2 Un cb omega-3-aci - 07-31 capsules ity of d ethyl 00:00: 00:00 by mouth 2 [place] as esters, 00 :00 (two) Medical (LOVAZA) 1 times Branch gram daily capsule before breakfast and dinner. insulin Yes [id number] Inject as U nivers aspart 6-20 instructed ity of (NOVOLOG 00:00: TID AC [place] FLEXPEN) 00 to 80 Medical 100 unit/mL units Branch injection daily Insulin Yes [id number] 35U inject 35 U nivers Glargine 6-20 Units ity of (LANTUS 00:00: under the [place] SOLOSTAR) 00 skin every Medi maribeth 100 unit/mL morning. Bran ch (3 mL) injection insulin Yes [id number] Inject as U nivers aspart 6-20 instructed ity of (NOVOLOG 00:00: TID [place] FLEXPEN) 00 to 80 Medical 100 unit/mL units Branch injection daily Insulin Yes [id number] 35U inject 35 U nivers Glargine 6-20 Units ity of (LANTUS 00:00: under the [place] SOLOSTAR) 00 skin every Medi maribeth 100 unit/mL morning. Bran ch (3 mL) injection insulin Yes [id number] Inject as U nivers aspart 6-20 instructed ity of (NOVOLOG 00:00: TID [place] FLEXPEN) 00 to 80 Medical 100 unit/mL units Branch injection daily Insulin Yes [id number] 35U inject 35 U nivers Glargine 6-20 Units ity of (LANTUS 00:00: under the [place] SOLOSTAR) 00 skin every Medi maribeth 100 unit/mL morning. Bran ch (3 mL) injection insulin Yes [id number] Inject as U nivers aspart 6-20 instructed ity of (NOVOLOG 00:00: TID [place] FLEXPEN) 00 to 80 Medical 100 unit/mL units Branch injection daily Insulin Yes [id number] 35U inject 35 U nivers Glargine 6-20 Units ity of (LANTUS 00:00: under the [place] SOLOSTAR) 00 skin every Medi maribeth 100 unit/mL morning. Bran ch (3 mL) injection insulin Yes [id number] Inject as U nivers aspart 6-20 instructed ity of (NOVOLOG 00:00: TID [place] FLEXPEN) 00 to 80 Medical 100 unit/mL units Branch injection daily Insulin Yes [id number] 35U inject 35 U nivers Glargine 6-20 Units ity of (LANTUS 00:00: under the [place] SOLOSTAR) 00 skin every Medi maribeth 100 unit/mL morning. Bran ch (3 mL) injection glucagon 1 Yes [id number] Use as U nivers mg/mL SolR 6-20 instructed ity of injection 00:00: in case of [place] 00 severe Medical hypoglycem Branch ia. insulin Yes [id number] Inject as U nivers aspart 6-20 instructed ity of (NOVOLOG 00:00: TID AC [place] FLEXPEN) 00 to 80 Medical 100 unit/mL units Branch injection daily Insulin Yes [id number] 35U inject 35 U nivers Glargine 6-20 Units ity of (LANTUS 00:00: under the [place] SOLOSTAR) 00 skin every Medi maribeth 100 unit/mL morning. Bran ch (3 mL) injection insulin Yes [id number] Inject as U nivers aspart 6-20 instructed ity of (NOVOLOG 00:00: TID AC [place] FLEXPEN) 00 to 80 Medical 100 unit/mL units Branch injection daily Insulin Yes [id number] 35U inject 35 U nivers Glargine 6-20 Units ity of (LANTUS 00:00: under the [place] SOLOSTAR) 00 skin every Medi maribeth 100 unit/mL morning. Bran ch (3 mL) injection glucagon 1 Yes [id number] Use as U nivers mg/mL SolR 6-20 instructed ity of injection 00:00: in case of [place] 00 severe Medical hypoglycem Branch ia. insulin Yes [id number] Inject as U nivers aspart 6-20 instructed ity of (NOVOLOG 00:00: TID AC [place] FLEXPEN) 00 to 80 Medical 100 unit/mL units Branch injection daily Insulin Yes [id number] 35U inject 35 U nivers Glargine 6-20 Units ity of (LANTUS 00:00: under the [place] SOLOSTAR) 00 skin every Medi maribeth 100 unit/mL morning. Bran ch (3 mL) injection insulin Yes [id number] Inject as U nivers aspart 6-20 instructed ity of (NOVOLOG 00:00: TID AC [place] FLEXPEN) 00 to 80 Medical 100 unit/mL units Branch injection daily Insulin Yes [id number] 35U inject 35 U nivers Glargine 6-20 Units ity of (LANTUS 00:00: under the [place] SOLOSTAR) 00 skin every Medi maribeth 100 unit/mL morning. Bran ch (3 mL) injection insulin Yes [id number] Inject as U nivers aspart 6-20 instructed ity of (NOVOLOG 00:00: TID AC [place] FLEXPEN) 00 to 80 Medical 100 unit/mL units Branch injection daily Insulin Yes [id number] 35U inject 35 U nivers Glargine 6-20 Units ity of (LANTUS 00:00: under the [place] SOLOSTAR) 00 skin every Medi maribeth 100 unit/mL morning. Bran ch (3 mL) injection glucagon 1 2020- No [id number] Use as Univers mg/mL SolR 12-29 instructed it y of injection 00:00: 00:00 in case of [place] 00 :00 severe Medical hypoglycem Branch ia. zolpidem 2014-07 Yes TAKE ONE Unive rs (AMBIEN) 10 1-11 TABLET BY ity of mg tablet 00:00: MOUTH ONCE [place] 00 DAILY AT Medical BEDTIME Branch zolpidem 2014-07 Yes TAKE ONE Unive rs (AMBIEN) 10 1-11 TABLET BY ity of mg tablet 00:00: MOUTH ONCE [place] DAILY AT Medical BEDTIME Branch zolpidem 2014-07 Yes TAKE ONE Unive rs (AMBIEN) 10 1-11 TABLET BY ity of mg tablet 00:00: MOUTH ONCE [place] DAILY AT Medical BEDTIME Branch zolpide 2014-07 Yes TAKE ONE Unive rs (AMBIEN) 10 1-11 TABLET BY ity of mg tablet 00:00: MOUTH ONCE [place] DAILY AT Medical BEDTIME Branch zolpidem 2014-07 2020- No TAKE ONE Univ ers (AMBIEN) 10 1-11 12-16 TABLET BY it y of mg tablet 00:00: 00:00 MOUTH ONCE [place] 00 :00 DAILY AT Medical BEDTIME Branch traMADOL 2014-07 Yes 50mg Take 1 Tab Uni vers (ULTRAM) 50 0-12 by mouth ity of mg tablet 00:00: every 6 [place] [address] (six) Medical hours as Branch needed for Pain (scale 7-10). traMADOL 2014-07 Yes 50mg Take 1 Tab Uni vers (ULTRAM) 50 0-12 by mouth ity of mg tablet 00:00: every 6 [place] 00 (six) Medical hours as Branch needed [...] Branch needed for Pain (scale 7-10). traMADOL 2014-07- No 50mg Take 1 Tab Un cb (ULTRAM) 50 0-12 12-16 by mouth ity of mg tablet 00:00: 00:00 every 6 [place] 00 :00 (six) Medical hours as Branch needed for Pain (scale 7-10). aspirin 81 2014-07 Yes 81mg Take 1 Tab U nivers mg chewable 0-10 by mouth ity of tablet 00:00: daily. [place] Medical Branch enalapril 2014-07 Yes 5mg Take 1 Tab Un cb (VASOTEC) 5 0-10 by mouth ity of mg tablet 00:00: daily. [place] [facility] fenofibrate 2014-07 Yes 134mg Take 1 Cap Univers micronized 0-10 by mouth ity o f (LOFIBRA) 00:00: daily. [place] 134 mg 00 Medical capsule Branch aspirin 81 2014-07 Yes 81mg Take 1 Tab U nivers mg chewable 0-10 by mouth ity of tablet 00:00: daily. [place] [facility] enalapril 2014-07 Yes 5mg Take 1 Tab Un cb (VASOTEC) 5 0-10 by mouth ity of mg tablet 00:00: daily. [place] [facility] fenofibrate 2014-07 Yes 134mg Take 1 Cap Univers micronized 0-10 by mouth ity o f (LOFIBRA) 00:00: daily. [place] 134 mg Medical capsule Branch aspirin 81 2014-07 2020- No 81mg Take 1 Tab Univers mg chewable 0-10 07-31 by mouth ity of tablet 00:00: 00:00 daily. [place] 00 :00 Medical Branch enalapril 2014-07 2020- No 5mg Take 1 Tab U nivers (VASOTEC) 5 0-10 07-31 by mouth ity of mg tablet 00:00: 00:00 daily. [place] 00 :00 Medical Branch fenofibrate 2014-07 2020- No 134mg Take 1 Cap Univers micronized 0-10 07-31 by mouth ity of (LOFIBRA) 00:00: 00:00 daily. [place] 134 mg 00 :00 Medical capsule Branch blood sugar 2011- Yes [id number] before Univers diagnostic 0-05 meals and ity of (FREESTYLE 00:00: at [place] INSULINX) 00 bedtime. Medica l strip Branch blood sugar 2011-07 Yes [id number] before Univers diagnostic 0-05 meals and ity of (FREESTYLE 00:00: at [place] INSULINX) 00 bedtime. Medica l strip Branch blood sugar 2011-07 2020- No [id number] before Univers diagnostic 0-05 07-31 meals and ity of (FREESTYLE 00:00: 00:00 at [place] INSULINX) 00 :00 bedtime. Medica l strip Branch Lancets Yes [id number] Univer s (LANCETS,UL 9-24 ity of TRA THIN) 00:00: [facility] [place] [facility] Medical Branch Lancets 2011-0 Yes [id number] Univer s (LANCETS,UL 9-24 ity of TRA THIN) 00:00: [facility] [place] [facility] Medical Branch Lancets 2011-0 Yes [id number] Univer s (LANCETS,UL 9-24 ity of TRA THIN) 00:00: [place] [address] Medical Branch Lancets 2012-0 Yes [id number] Univer s (LANCETS,UL 9-24 ity of TRA THIN) 00:00: [place] [address] Medical Branch Lancets 2012-0 Yes [id number] Univer s (LANCETS,UL 9-24 ity of TRA THIN) 00:00: [place] [address] Medical Branch Lancets 2012-0 Yes [id number] Univer s (LANCETS,UL 9-24 ity of TRA THIN) 00:00: [place] [address] Medical Branch Lancets 2012-0 Yes [id number] Univer s (LANCETS,UL 9-24 ity of TRA THIN) 00:00: [facility] [place] [facility] Medical Branch Lancets 2012-0 Yes [id number] Univer s (LANCETS,UL 9-24 ity of TRA THIN) 00:00: [place] [address] Medical Branch Lancets 2012-0 Yes [id number] Univer s (LANCETS,UL 9-24 ity of TRA THIN) 00:00: [place] [address] Medical Branch Lancets 2011-0 Yes [id number] Univer s (LANCETS,UL 9-24 ity of TRA THIN) 00:00: [place] [address] Medical Branch Vital Signs Vital Name Observation Time Observation Value Comments Source Systolic blood 2020-11-16 21:02:00 150 mm[Hg] Univer sity of pressure [place] [facility] Diastolic blood 2020-11-16 21:02:00 93 mm[Hg] Unive rsity of pressure [place] [facility] Heart rate 2020-11-16 21:02:00 93 /min Universi ty of [place] [facility] Respiratory rate 2020-11-16 21:02:00 20 /min Univ ersity of [place] [facility] Oxygen saturation in 2020-11-16 21:02:00 100 /min University of Arterial blood by [place] [facility] Pulse oximetry Branch Body temperature 2020-11-16 18:21:00 36.61 Dejah Univ ersity of [place] [facility] Body weight 2020-11-16 18:21:00 89.359 kg Universi ty of [place] [facility] BMI 2020-11-16 18:21:00 28.27 kg/m2 Universi ty of [place] [facility] Systolic blood 2020-07-28 21:58:00 147 mm[Hg] Univer sity of pressure [place] [facility] Diastolic blood 2020-07-28 21:58:00 100 mm[Hg] Unive rsity of pressure [place] [facility] Heart rate 2020-07-28 21:58:00 103 /min Universi ty of [place] [facility] Body temperature 2020-07-28 21:58:00 36.28 Dejah Univ ersity of [place] [facility] Respiratory rate 2020-07-28 21:58:00 20 /min Univ ersity of [place] [facility] Body weight 2020-07-28 21:58:00 86.183 kg Universi ty of [place] [facility] BMI 2020-07-28 21:58:00 27.26 kg/m2 Universi ty of [place] [facility] Oxygen saturation in 2020-07-28 21:58:00 100 /min University of Arterial blood by [facility] Pulse oximetry Branch Systolic blood 2020-06-29 22:21:00 133 mm[Hg] Univer sity of pressure [place] [facility] Diastolic blood 2020-06-29 22:21:00 81 mm[Hg] Unive rsity of pressure [place] [facility] Heart rate 2020-06-29 22:21:00 89 /min Universi ty of [facility] Body temperature 2020-06-29 22:21:00 36.83 Dejah [facility] ersity of [facility] Respiratory rate 2020-06-29 22:21:00 18 /min Univ ersity of [facility] Oxygen saturation in 2020-06-29 22:21:00 99 /min University of Arterial blood by [facility] Pulse oximetry Branch Body weight 2020-06-27 10:03:00 87.998 kg Universi ty of [facility] BMI 2020-06-27 10:03:00 27.84 kg/m2 Universi ty of [facility] Body height 2020-06-26 07:45:00 177.8 cm Universi ty of [facility] Systolic blood 2020-06-29 22:21:00 133 mm[Hg] Univer sity of [facility] Diastolic blood 2020-06-29 22:21:00 81 mm[Hg] [facility] Heart rate 2020-06-29 22:21:00 89 /min Universi ty [facility] [place] Body temperature 2020-06-29 22:21:00 36.83 Dejah [facility] ersity [facility] [place] Respiratory rate 2020-06-29 22:21:00 18 /min [facility] Oxygen saturation in 2020-06-29 22:21:00 99 /min University of Arterial blood by [facility] Pulse oximetry Branch Body weight 2020-06-27 10:03:00 87.998 kg Universi ty [facility] [place] BMI 2020-06-27 10:03:00 27.84 kg/m2 Universi ty [facility] [place] Body height 2020-06-26 07:45:00 [facility]8 [facility] Procedures Procedure Date / Time Performing Clinician Source Performed CT ABDOMEN PELVIS W 2020-11-16 19:40:14 Nader Mendoza [facility] CONTRAST [facility] Branch LIPASE 2020-11-16 18:28:00 Nader Mendoza Maxie o [facility] MAGNESIUM 2020-11-16 18:28:00 Nader Mendoza Maxie o [facility] COMP. METABOLIC PANEL 2020-11-16 18:28:00 Nader Mendoza [facility] ([id number]) [facility] CBC WITH DIFF 2020-11-16 18:28:00 Nader Mendoza [facility] URINALYSIS 2020-11-16 18:28:00 Nader Mendoza [facility] POCT GLUCOSE (AUTOMATED) 2020-11-16 18:25:00 Nader Mendoza [facility] CONSENT/REFUSAL FOR 2020-11-16 18:14:39 Doctor Unassigned, [facility] DIAGNOSIS AND TREATMENT [place] [facility] CT CERVICAL SPINE WO 2020-07-28 22:41:56 Lillian Barr [facility] CONTRAST [facility] CT HEAD WO CONTRAST 2020-07-28 22:41:56 Lillian Barr [facility] NOTICE OF PRIVACY 2020-07-28 21:50:31 Doctor Unassigned, [facility] PRACTICES [place] [facility] [place] CONSENT/REFUSAL FOR 2020-07-28 21:50:20 Doctor Unasschiquita, [facility] ([facility]OMATED[facility] 2020-06-29 23:35[facility]OM[facility]) 2020-06-29 18:04:00 [facility] POCT GLUCOSE (AUTOMATED) 2020-06-29 13:54:00 [facility] TRIGLYCERIDES 2020-06-29 11:20:00 Ellis Almeida [facility] BASIC METABOLIC PANEL 2020-06-29 11:20:00 [facility] (NA, K, CL, CO2, GLUCOSE, Medica l Branch BUN, CREATININE, CA) CBC WITH DIFF 2020-06-29 11:20:00 [facility] ADC / [facility] - DRUG SCREEN 2020-06-29 03:10:00 Favio Moscoso [facility] TRIAGE [facility] POCT GLUCOSE (AUTOMATED) 2020-06-28 22:46:00 Rebeca [facility] POCT GLUCOSE (AUTOMATED) 2020-06-28 18:53:00 [facility] 2020-06-28 18:01:00 Rebeca Laurence Bagley versity of [facility] POCT GLUCOSE (AUTOMATED) 2020-06-28 13:27:00 Rebeca Laurence Bagley versity of [facility] POCT GLUCOSE (AUTOMATED) 2020-06-28 11:48:00 Valerie Joseprice Bagley versity [facility] [place] TRIGLYCERIDES 2020-06-28 10:27:00 Ellis Almeida [facility] LIPASE 2020-06-28 10:27:00 Rebeca [facility] MAGNESIUM 2020-06-28 10:27:00 [facility]OLIC PANEL 2020-06-28 10:27:00 Rebeca [facility] (NA, K, CL, CO2, GLUCOSE, Medica l Branch BUN, CREATININE, CA) ETHANOL 2020-06-28 10:27:00 Danis [facility] CBC WITH DIFF 2020-06-28 10:27:00 Rebeca [facility] POCT GLUCOSE (AUTOMATED) 2020-06-28 10:10:00 Rebeca Laurence Bagley versity [facility] [place] POCT GLUCOSE (AUTOMATED) 2020-06-28 07:00:00 Rebeca Laurence Bagley versity of [facility] POCT GLUCOSE (AUTOMATED) 2020-06-28 05:48:00 Rebeca Laurence Bagley versity of [facility] POCT GLUCOSE (AUTOMATED) 2020-06-28 04:45:00 Rebeca Laurence Uni versity of [facility] POCT GLUCOSE (AUTOMATED) 2020-06-28 03:40:00 Rebeca Laurence Uni versity of [facility] POCT GLUCOSE (AUTOMATED) 2020-06-28 02:43:00 Rebeca Valerieprice Uni versity of [facility] POCT GLUCOSE (AUTOMATED) 2020-06-28 01:39:00 Rebeca Laurence Uni versity of [facility] POCT GLUCOSE (AUTOMATED) 2020-06-27 23:10:00 Rebeca Valerieprice Yudi versity of [facility] TRIGLYCERIDES 2020-06-27 23:08:00 Ellis Almeida [facility] POCT GLUCOSE (AUTOMATED) 2020-06-27 21:29:00 RebecaLaurence Uni versity of [facility] POCT GLUCOSE (AUTOMATED) 2020-06-27 19:54:00 Edtere Laurence Uni versity of [facility] POCT GLUCOSE (AUTOMATED) 2020-06-27 18:59:00 EdtereLaurence Uni versity of [facility] POCT GLUCOSE (AUTOMATED) 2020-06-27 17:42:00 Edioncal Laurence Uni versity of [facility] POCT GLUCOSE (AUTOMATED) 2020-06-27 16:50:00 Edtere Laurence Uni versity of [facility] POCT GLUCOSE (AUTOMATED) 2020-06-27 14:43:00 Edtere Laurence Uni versity of [facility] POCT GLUCOSE (AUTOMATED) 2020-06-27 13:19:00 Edtere Laurence Uni versity of [facility] POCT GLUCOSE (AUTOMATED) 2020-06-27 12:18:00 [facility]beca [facility] versity [facility] TRIGLYCERIDES 2020-06-27 10:20:00 [facility] LIPASE 2020-06-27 10:20:00 [facility] BASIC METABOLIC PANEL 2020-06-27 10:20:00 tere [facility] (NA, K, CL, CO2, GLUCOSE, Medica l Branch BUN, CREATININE, CA) CBC WITH DIFF 2020-06-27 10:20:00 [facility] PO[facility] GLUCOSE (AUTOMATED) 2020-06-27 10:06:00 Rebeca Laurence Uni versity of [facility] POCT GLUCOSE (AUTOMATED) 2020-06-27 09:06:00 Rebeca Laurence [employer] versity of [facility] POCT GLUCOSE (AUTOMATED) 2020-06-27 08:07:00 Rebeca [facility] versity of [facility] POCT GLUCOSE (AUTOMATED) 2020-06-27 07:09:00 Rebeca [facility] versity of [facility] POCT GLUCOSE (AUTOMATED) 2020-06-27 06:02:00 Edtere [facility] versity of [facility] POCT GLUCOSE (AUTOMATED) 2020-06-27 04:52:00 Rebeca Laurence Uni versity of [place] [facility] POCT GLUCOSE (AUTOMATED) 2020-06-27 04:02:00 Edtere Laurence Uni versity of [place] [facility] POCT GLUCOSE (AUTOMATED) 2020-06-27 03:28:00 Rebeca Valerieprice Uni versity of [place] [facility] POCT GLUCOSE (AUTOMATED) 2020-06-27 03:02:00 Edtere Valerieprice Uni versity of [place] [facility] POCT GLUCOSE (AUTOMATED) 2020-06-27 02:01:00 Edioncal, Valeriey Uni versity of [place] [facility] POCT GLUCOSE (AUTOMATED) 2020-06-27 01:15:00 Edtere [facility] [place] [facility] POCT GLUCOSE (AUTOMATED) 2020-06-27 00:07:00 Rebeca Valerieprice Uni versity of [place] [facility] POCT GLUCOSE (AUTOMATED) 2020-06-26 22:46:00 EdLaurence carranza Uni versity of [place] [facility] TRIGLYCERIDES 2020-06-26 22:07:00 Ellis Almeida Maxie o [place] [facility] POCT GLUCOSE (AUTOMATED) 2020-06-26 21:45:00 Rebeca [facility] [place] [facility] POCT GLUCOSE (AUTOMATED) 2020-06-26 20:38:00 Rebeca Laurence Uni versity of [place] [facility] POCT GLUCOSE (AUTOMATED) 2020-06-26 18:13:00 Rebeca Valerieprice Uni versity of [place] [facility] POCT GLUCOSE (AUTOMATED) 2020-06-26 17:03:00 Laurence Jose [employer] versity of [place] [facility] LIPASE 2020-06-26 11:15:00 Rebeca [facility] o [facility] Branch LIPID PANEL ([id number])(TOTAL 2020-06-26 11:15:00 Laurence Jose [facility] CHOLESTEROL, Medical Branch TRIGLYCERIDES, HDL) GLYCOSYLATED HEMOGLOBIN 2020-06-26 11:15:00 Laurence Jose [facility] (A1C) Medical Branch LOW-DENSITY LIPOPROTEIN, 2020-06-26 11:15:00 Laurence Jose versity of [facility] Branch POCT GLUCOSE (AUTOMATED) 2020-06-26 11:12:00 Laurence Jose Y[facility] CT ABDOMEN PELVIS W 2020-06-26 04:40:39 Kofi Beebe [facility] CONTRAST [facility] ASSIGNMENT OF BENEFITS 2020-06-26 03:16:02 Doctor Rachid, [facility] [place] [facility] COVID-19 (ID NOW RAPID 2020-06-26 03:12:00 Kofi Beebe [facility] TESTING) Medical Branch LAB ONLY COVID 2020-06-26 03:12:00 Kofi Beebe [facility] INTERPRETATION Medical Branch LIPASE 2020-06-26 02:54:00 Kofi Beebe [facility] COMP. METABOLIC PANEL 2020-06-26 02:54:00 Kofi Beebe [facility] ([id number]) Medical [place] CBC WITH DIFF 2020-06-26 02:54:00 Kofi Beebe [facility] POCT GLUCOSE (AUTOMATED) 2020-06-26 02:44:00 Kofi Beebe [facility] CONSENT/REFUSAL FOR 2020-06-26 02:29:58 Doctor Rachid, [facility] DIAGNOSIS AND TREATMENT [place] [facility] EXTERNAL PROVIDER RECORDS 2020-02-09 05:01:00 Doctor Rachid, [facility] [place] [facility] Encounters Start End Encounter Admission Attending Care Care Encounter Source Date/Time Date/Time Type Type Clinicians Facility Department ID 2021-10-03 [id number] [facility] 16:00:00 68 2021-09-29 [facility] [id number] [facility] 17:00:00 79 2021-05-11 Emergency [facility] [id number] Univers 17:56:[address] [facility] [place] [place] 2021-05-10 Emergency [facility] [id number] Univers 17:48:01 ity of [facility] 2021-05-10 Emergency [facility] [id number] Univers [facility]:31[facility] 2021-09-25 2021-09-25 Outpatient Elective Chetan Coleman [facility] JM [id number] [facility] 13:47:00 13:47:00 55 2020-11-16 2020-11-16 Emergency Nader Mendoza [facility] 1.2.840.114 [id number] Univers 13:16:00 16:24:00 Shayla Pierre 350.1.13.10 i [place] [phone] [facility] 084 Branch 2020-11-16 2020-11-16 Orders Doctor QUEENIE 1.2.840.114 [id number] Univers 00:00:00 00:00:00 Only Unassigned, KYLE 350.1.13.10 ity of [place] [facility] 4.2.7.2.686 Sergio as [phone] [facility] 009 Branch 2020-07-28 2020-07-28 Emergency Cortney, [facility] [id number] Univers 16:00:00 17:40:00 Lillian Pierre 350.1.13.10 i [place] [phone] [place] [address]754 Branch 2020-07-28 2020-07-28 Orders Doctor QUEENIE 1.2.840.114 [id number] Univers 00:00:00 00:00:00 Only Unassigned, KYLE 350.1.13.10 ity of [place] [facility]ITAL 4.2.7.2.686 Sergio as [id number] [facility] 009 Branch 2020-07-01 2020-07-01 Transition Sam Correa 1.2.840.114 [id number] Univers 00:00:00 00:00:00 of Care Annita M Bran 350.1.13.10 i ty [place] [id number] [facility] 403 Branch 2020-07-01 2020-07-01 Transition Sam Correa 1.2.840.114 [id number] 00:00:00 00:00:00 of Care Annita M Bran 350.1.13.10 [place] 4.2.7.2.686 [phone] [facility] 2020-06-25 2020-06-29 [facility] GhislaineksKofi [facility] 1.2.840. 114 [id number] Univers 20:44:00 19:29:00 Encounter Rebeca Laurence Pierre 350.1.13.10 it[place] [phone] [facility] 081 [place] 2020-06-25 2020-06-29 [facility] Kofi Beebe [facility] 1.2.840. 114 [id number] 20:44:00 19:29:00 Encounter RodneyLaurence carranza Ignacio 350.1.13.10 [place] 4.2.7.2.686 [place] [id number] [facility] 2020-06-25 2020-06-25 Orders Doctor QUEENIE 1.2.840.114 [id number] Univers 00:00:00 00:00:00 Only Unassigned, KYLE 350.1.13.10 ity of [place] [facility] 4.2.7.2.686 Sergio as [phone] [facility] 009 [place] 2020-06-25 2020-06-25 Orders Doctor QUEENIE 1.2.840.114 [id number] 00:00:00 00:00:00 Only Unassigned, KYLE 350.1.13.10 [place] [facility] 4.2.7.2.68 [id number] [facility] 2020-02-09 2020-02-09 Telemvinny Guan [facility] 1.2.840.114 [id number] Univers 15:04:39 15:53:06 ne Visit Cole Pierre 350.1.13.10 ity of [place] 4.2.7.2.686 [facility] s Professio [phone] Ak dical [address] 2020-02-09 2020-02-09 [facility] 1.2.840.114 [id number] 15:04:39 15:53:06 ne Visit Cole Pierre 350.1.13.10 [place] 4.2.7.2.686 Professio [phone] [address] 2020-02-09 2020-02-09 Outpatient R FREIDA [facility] [id number] Univers 15:00:00 15:00:00 COLE Colmenares31 [facility] 2020-02-09 2020-02-09 [facility] [id number] Univers 15:00:00 15:00:[address] [facility] [place] [place] 2020-02-09 2020-02-09 Orders Doctor QUEENIE 1.2.840.114 [id number] Univers 00:00:00 00:00:00 Only Unassigned, KYLE 350.1.13.10 ity of [place] [facility] 4.2.7.2.686 Sergio as [phone] [address] 2020-02-09 2020-02-09 Orders Doctor QUEENIE 1.2.840.114 [id number] 00:00:00 00:00:00 Only Unassigned, KYLE 350.1.13.10 [place] [facility] 4.2.7.2.686 [id number] [facility] 2020-02-07 2020-02-07 [facility] 1.2.840.114 [id number] Univers 00:00:00 00:00:00 Cole Cohen Ignacio 350.1.13.10 i [place] Profess[place] [phone] Ak dical [address] 2020-02-07 2020-02-07 [facility] 1.2.840.114 [id number] 00:00:00 00:00:00 Cole Noel Ignacio 350.1.13.10 [place] 4.2.7.2.686 Professio [phone] [address] Results Test Description Test Time Test Comments Results Result Comments Source URINALYSIS 2020-11-16 19:20:17 Test Item Value Reference Range Interpretation Comme nts APPEARANCE (test code = Clear Clear 0151618109) COLOR (test code = 1167553774) Mindy Yellow A PH (test code = 9531816670) 4.8-8.0 SP GRAVITY (test code = 1.003-1.030 2971830220) GLU U QUAL (test code = 150 mg/dL Normal A 4779622775) BLOOD (test code = 1995124217) Negative Negative KETONES (test code = 2713328143) Negative Negative PROTEIN (test code = 2887-8) Negative Negative UROBILIN (test code = Normal Normal 3969770105) BILIRUBIN (test code = Negative Negative 6767612395) NITRITE (test code = 4361336023) Negative Negative LEUK BURTON (test code = Negative Negative 2478773042) RBC/HPF (test code = 5367900027) See_Comment [Automated message] The system which ge nerated this result transmit j luis reference range: 0 - 3 HP F. The reference range was not used to interpret th is result as normal/abnormal . WBC/HPF (test code = 8056480515) See_Comment [Automated message] The system which ge nerated this result transmit j luis reference range: 0 - 5 HP F. The reference range was not used to interpret th is result as normal/abnormal . BACTERIA (test code = Negative Negative 5518730236) MUCOUS (test code = 3542783569) Moderate Negative LPF A Lab Interpretation (test code = Abnormal 87979-7) [facility]18:04 Test Item Value Reference Range Interpretation Comments MAGNESIUM (test code = 3452759516) 1.9 mg/dL 1.7-2.4 Lab Interpretation (test code = Normal 90625-5) [facility] (62380)2020-11-16 19:17:44 Test Item Value Reference Range Interpretation Comments NA (test code = 138 mmol/L 135-145 9127747586) K (test code = 3.9 mmol/L 3.5-5.0 0765190872) CL (test code = 100 mmol/L 98-108 3294351584) CO2 TOTAL (test code = 28 mmol/L 23-31 7086871316) AGAP (test code = 2-16 0229263938) BUN (test code = 15 mg/dL 7-23 1053396982) GLUCOSE (test code = 215 mg/dL 70-110 H 7359580521) CREATININE (test code = 0.88 mg/dL 0.60-1.25 2219452405) TOTAL BILI (test code = 1.6 mg/dL 0.1-1.1 H 3883791751) CALCIUM (test code = 9.6 mg/dL 8.6-10.6 9482114701) T PROTEIN (test code = 7.4 g/dL 6.3-8.2 5859816339) ALBUMIN (test code = 4.6 g/dL 3.5-5.0 9316402819) ALK PHOS (test code = 90 U/L 34-122 0696458043) ALTv (test code = 15 U/L 5-50 1742-6) AST(SGOT) (test code = 17 U/L 13-40 3188289876) eGFR (test code = mL/min/1.73m2 5266693664) OSKAR (test code = OSKAR) Association of [...] tests). Lab Interpretation Abnormal (test code = 53125-4) [facility] 19[facility]17:23 Test Item Value Reference Range Interpretation Comments LIPASE (test code = 2008695418) 87 U/L 0-220 Lab Interpretation (test code = Normal 64207-9) [facility] WITH [id number] 19:06:43 Test Item Value Reference Range Interpretation Comments WBC (test code = See_Comment [Automated 6690-2) message] The sy stem which generated this result transmitted reference range : 4.20 - 10.70 10*3/?L. The reference range was not used to interpret this result as normal/abnormal . RBC (test code = See_Comment H [Automated 789-8) message] The sy stem which [...] RDW-SD (test code = 39.0 fL 38.5-51.6 90870-8) RDW-CV (test code = 13.9 % 12.1-15.4 788-0) PLT (test code = See_Comment [Automated 777-3) message] The sy stem which generated this result transmitted reference range : 150 - 328 10*3/ ?L. The reference r kristina was not used to interpret this result as normal/abnormal . MPV (test code = 9.4 fL 9.8-13.0 L 84402-8) NRBC/100 WBC (test See_Comment [Automat ed code = 8402409023) message] The system which generated this result transmitted reference range : 0.0 - 10.0 /100 WBCs. The refer ence range was not u sed to interpret th is result as normal/abnormal . NRBC x10^3 (test code <0.01 See_Comment [Auto mated = 0775836692) message] The s ystem which generated this result transmitted reference range : 10*3/?L. The reference range was not used to interpret this result as normal/abnormal . GRAN MAT (NEUT) % 79.9 % (test code = 770-8) IMM GRAN % (test code 0.60 % = 0571415204) LYMPH % (test code = 14.4 % 736-9) MONO % (test code = 3.9 % 5905-5) EOS % (test code = 0.6 % 713-8) BASO % (test code = 0.6 % 706-2) GRAN MAT x10^3(ANC) 7.25 10*3/uL 1.99-6.95 H (test code = 1973959185) IMM GRAN x10^3 (test 0.05 10*3/uL 0.00-0.06 code = 9643104841) LYMPH x10^3 (test code 1.30 10*3/uL 1.09-3.23 = 731-0) MONO x10^3 (test code 0.35 10*3/uL 0.36-1.02 L = 742-7) EOS x10^3 (test code = 0.05 10*3/uL 0.06-0.53 L 711-2) BASO x10^3 (test code 0.05 10*3/uL 0.01-0.09 = 704-7) Lab Interpretation Abnormal (test code = 86396-1) [facility] GLUCOSE (AUTOMATED)2020-11-16 18:27:21 Test Item Value Reference Range Interpretation Comments POCT GLU (test code = 3681561648) 218 mg/dL 70-110 H Lab Interpretation (test code = Abnormal 28238-8) [facility] GLUCOSE (AUTOMATED)2020-06-29 23:37:00 Test Item Value Reference Range Interpretation Comments POCT GLU (test code = 3616633197) 217 mg/dL 70-110 H Lab Interpretation (test code = Abnormal 39893-2) [facility] GLUCOSE (AUTOMATED)2020-06-29 18:58:00 Test Item Value Reference Range Interpretation Comments POCT GLU (test code = 1218043297) 214 mg/dL 70-110 H Lab Interpretation (test code = Abnormal 26255-5) [facility] GLUCOSE (AUTOMATED)2020-06-29 14:15:00 Test Item Value Reference Range Interpretation Comments POCT GLU (test code = 4995170124) 182 mg/dL 70-110 H Lab Interpretation (test code = Abnormal 84473-5) [facility] with [id number] 13:44:00 Test Item Value Reference Range Interpretation [...] (test code = 37.0 fL 38.5-51.6 L 26531-9) RDW-CV (test code = 12.2 % 12.1-15.4 788-0) PLT (test code = See_Comment L [Automated 777-3) message] The sy stem which generated this result transmitted reference range : 150 - 328 10*3/ ?L. The reference r kristina was not used to interpret this result as normal/abnormal . MPV (test code = 9.9 fL 9.8-13 58133-1) NRBC/100 WBC (test See_Comment [Automat ed code = 3575480213) message] The system which generated this result transmitted reference range : 0.0 - 10.0 /100 WBCs. The refer ence range was not u sed to interpret th is result as normal/abnormal . NRBC x10^3 (test code <0.01 See_Comment [Auto mated = 0574796193) message] The s ystem which generated this result transmitted reference range : 10*3/?L. The reference range was not used to interpret this result as normal/abnormal . GRAN MAT (NEUT) % 61.0 % (test code = 770-8) IMM GRAN % (test code 0.30 % = 2478746595) LYMPH % (test code = 29.5 % 736-9) MONO % (test code = 5.9 % 5905-5) EOS % (test code = 2.4 % 713-8) BASO % (test code = 0.9 % 706-2) GRAN MAT x10^3(ANC) 2.07 10*3/uL 1.99-6.95 (test code = 2942200677) IMM GRAN x10^3 (test <0.03 0-0.06 code = 4161415185) LYMPH x10^3 (test code 1.00 10*3/uL 1.09-3.23 L = 731-0) MONO x10^3 (test code 0.20 10*3/uL 0.36-1.02 L = 742-7) EOS x10^3 (test code = 0.08 10*3/uL 0.06-0.53 711-2) BASO x10^3 (test code 0.03 10*3/uL 0.01-0.09 = 704-7) Lab Interpretation Abnormal (test code = 35829-1) [facility] 13:22:00 Test Item Value Reference Range Interpretation Comments TRIG (test code = 0560025398) 468 mg/dL 30-170 H Lab Interpretation (test code = Abnormal 31175-0) [facility] (NA, K, CL, CO2, GLUCOSE, BUN, CREATININE, CA)2020-06-29 13:12:00 Test Item Value Reference Range Interpretation Comments NA (test code = 139 mmol/L 135-145 6112648660) K (test code = 3.6 mmol/L 3.5-5 9601226814) CL (test code = 104 mmol/L 98-108 0485646878) CO2 TOTAL (test code = 25 mmol/L 23-31 5845266095) AGAP (test code = 2-16 9536955327) BUN (test code = 4 mg/dL 7-23 L 1920904987) GLUCOSE (test code = 163 mg/dL 70-110 H 0671115004) CREATININE (test code = 0.74 mg/dL 0.6-1.25 8474302178) CALCIUM (test code = 9.4 mg/dL 8.6-10.6 7437778057) eGFR Calculation mL/min/1.73m2 (Non-) (test code = 3269145389) eGFR Calculation mL/min/1.73m2 () (test code = 6679058485) OSKAR (test code = OSKAR) Association of [...] tests). Lab Interpretation Abnormal (test code = 47169-4) [facility] / [facility] [id number] 03:44:00 Test Item Value Reference Range Interpretation Comments BENZO U (test code = Presumptive Negative A 2609739538) Positive AUDREY U (test code = Negative Negative 7250437901) AMPHET (test code = Negative Negative 9372126647) THC (test code = Presumptive Negative A Confirmatio n of 7763762604) Positive Presumptive Positive THC result requires physician order . METHADONE (test code Negative Negative = 0132783484) Meth U (test code = Negative Negative 5008808694) OPIATES (test code = Presumptive Negative A 2300630967) Positive Cocaine Metabolite Negative Negative (test code = 0261387480) PROPOXY (test code = Negative Negative 6366656567) Tric U (test code = Presumptive Negative A Confirma tion of 8542138852) Positive Presumptive Positive TCA result requires physician order and this will b e sent to refer ce lab. PCP (test code = Negative Negative 6888604140) OXYCOD (test code = Negative Negative 3266378588) OSKAR (test code = Urine Drug Cutoff [...] testing). Lab Interpretation Abnormal (test code = 50667-8) [facility] 01:23:00 Test Item Value Reference Range Interpretation Comments ALCOHOL (test code = <10 mg/dL 4156468249) OSKAR (test code = OSKAR) <10 Bpptfvpr56-065 Toxic>[address] MAGISTRATE>400 Fatalities Reported [facility]2020-06-28 23:30:00 Test Item Value Reference Range Interpretation Comments POCT GLU (test code = 2226814686) 234 mg/dL 70-110 H Lab Interpretation (test code = Abnormal 44353-4) [facility] GLUCOSE (AUTOMATED)2020-06-28 19:09:00 Test Item Value Reference Range Interpretation Comments POCT GLU (test code = 8228927982) 195 mg/dL 70-110 H Lab Interpretation (test code = Abnormal 12248-5) [facility] GLUCOSE (AUTOMATED)2020-06-28 18:16:00 Test Item Value Reference Range Interpretation Comments POCT GLU (test code = 5618928457) 113 mg/dL 70-110 H Lab Interpretation (test code = Abnormal 87218-7) [facility]2020-[facility]-18 15:54:00 Test Item Value Reference Range Interpretation Comments MAGNESIUM (test code = 0328708147) 1.7 mg/dL 1.7-2.4 Lab Interpretation (test code = Normal 48368-4) [facility] GLUCOSE (AUTOMATED)2020-06-28 14:51:00 Test Item Value Reference Range Interpretation Comments POCT GLU (test code = 0904500015) 94 mg/dL 70-110 Lab Interpretation (test code = Normal 18588-2) [facility] with Yvntbrjsmzyt2933-44-73 14:08:00 Test Item Value Reference Range Interpretation Comments WBC (test code = See_Comment L [Automated 6690-2) message] The sy stem which generated this result transmitted reference range : 4.20 - 10.70 10*3/?L. The reference range was not used to interpret this result as normal/abnormal . RBC (test code = See_Comment [Automated 399-8) message] The sy stem which generated this [...] (test code = 36.2 fL 38.5-51.6 L 46783-0) RDW-CV (test code = 11.9 % 12.1-15.4 L 788-0) PLT (test code = See_Comment L [Automated 777-3) message] The sy stem which generated this result transmitted reference range : 150 - 328 10*3/ ?L. The reference r kristina was not used to interpret this result as normal/abnormal . MPV (test code = 10.0 fL 9.8-13 29913-3) NRBC/100 WBC (test See_Comment [Automat ed code = 5743403263) message] The system which generated this result transmitted reference range : 0.0 - 10.0 /100 WBCs. The refer ence range was not u sed to interpret th is result as normal/abnormal . NRBC x10^3 (test code <0.01 See_Comment [Auto mated = 9502296124) message] The s ystem which generated this result transmitted reference range : 10*3/?L. The reference range was not used to interpret this result as normal/abnormal . GRAN MAT (NEUT) % 59.7 % (test code = 770-8) IMM GRAN % (test code 0.30 % = 3617210610) LYMPH % (test code = 33.3 % 736-9) MONO % (test code = 4.8 % 5905-5) EOS % (test code = 1.3 % 713-8) BASO % (test code = 0.6 % 706-2) GRAN MAT x10^3(ANC) 1.86 10*3/uL 1.99-6.95 L (test code = 9831462613) IMM GRAN x10^3 (test <0.03 0-0.06 code = 3022515560) LYMPH x10^3 (test code 1.04 10*3/uL 1.09-3.23 L = 731-0) MONO x10^3 (test code 0.15 10*3/uL 0.36-1.02 L = 742-7) EOS x10^3 (test code = 0.04 10*3/uL 0.06-0.53 L 711-2) BASO x10^3 (test code <0.03 0.01-0.09 = 704-7) Lab Interpretation Abnormal (test code = 13396-7) [facility] Metabolic Panel (NA, K, CL, CO2, GLUCOSE, BUN, CREATININE, CA)2020-06-28 13:02:00 Test Item Value Reference Range Interpretation Comments NA (test code = 140 mmol/L 135-145 8972166477) K (test code = 3.0 mmol/L 3.5-5 L 2514522547) CL (test code = 106 mmol/L 98-108 8248230405) CO2 TOTAL (test code = 25 mmol/L 23-31 0531288705) AGAP (test code = 2-16 8150425053) BUN (test code = <2 7-23 L 6028584372) GLUCOSE (test code = 107 mg/dL 70-110 8960250602) CREATININE (test code = 0.59 mg/dL 0.6-1.25 L 3970843287) CALCIUM (test code = 8.9 mg/dL 8.6-10.6 9207914511) eGFR Calculation mL/min/1.73m2 (Non-) (test code = 2157288212) eGFR Calculation mL/min/1.73m2 () (test code = 8817600453) OSKAR (test code = OSKAR) Association of [...] tests). Lab Interpretation Abnormal (test code = 10348-4) [facility] 13:02:00 Test Item Value Reference Range Interpretation Comments TRIG (test code = 6214837645) 519 mg/dL 30-170 H Lab Interpretation (test code = Abnormal 00746-2) [facility]2020-12-18 12:45:00 Test Item Value Reference Range Interpretation Comments LIPASE (test code = 8247577634) 27 U/L 0-220 Lab Interpretation (test code = Normal 31701-9) [facility]2020-06-28 11:51:00 Test Item Value Reference Range Interpretation Comments POCT GLU (test code = 8027502843) 111 mg/dL 70-110 H Lab Interpretation (test code = Abnormal 75404-5) [facility] COVID [id number] 11:31:00COVID DMT InterpretationInterpretation/Recommendations: Molecular NAAT Tests for [...] 19 testing the patient has had at [facility], including molecular NAAT testing (more commonly known as PCR testing and Rapid IDNow testing) and antibody testing. It does not take into account any testing that a patient has had outside of the [facility] medical record. [facility] LABORATORY SERVICESCOVID IysasqwPNTU-MxM-7 Rapid ID NOW (no units) ? ? Date ? Value ? 06/25/2020 ? Not Detected ? [facility]2020-06-28 10:16:00 Test Item Value Reference Range Interpretation Comments POCT GLU (test code = 3076646208) 109 mg/dL 70-110 Lab Interpretation (test code = Normal 48823-9) [facility] GLUCOSE (AUTOMATED)2020-06-28 09:08:00 Test Item Value Reference Range Interpretation Comments POCT GLU (test code = 5079336152) 152 mg/dL 70-110 H Lab Interpretation (test code = Abnormal 74415-6) [facility] GLUCOSE (AUTOMATED)2020-06-28 06:20:00 Test Item Value Reference Range Interpretation Comments POCT GLU (test code = 1974339063) 84 mg/dL 70-110 Lab Interpretation (test code = Normal 77673-7) [facility] GLUCOSE (AUTOMATED)2020-06-28 04:47:00 Test Item Value Reference Range Interpretation Comments POCT GLU (test code = 1756485596) 95 mg/dL 70-110 Lab Interpretation (test code = Normal 57495-5) [facility]2020-06-28 03:43:00 Test Item Value Reference Range Interpretation Comments POCT GLU (test code = 4535072337) 123 mg/dL 70-110 H Lab Interpretation (test code = Abnormal 90524-1) [facility]2020-06-28 02:47:00 Test Item Value Reference Range Interpretation Comments POCT GLU (test code = 4999916138) 121 mg/dL 70-110 H Lab Interpretation (test code = Abnormal 39702-1) [facility] GLUCOSE (AUTOMATED)2020-06-28 02:17:00 Test Item Value Reference Range Interpretation Comments POCT GLU (test code = 7184276643) 94 mg/dL 70-110 Lab Interpretation (test code = Normal 58756-2) [facility]2020-12-18 01:21:00 Test Item Value Reference Range Interpretation Comments TRIG (test code = 3000041358) 647 mg/dL 30-170 H Lab Interpretation (test code = Abnormal 15143-8) [facility] GLUCOSE (AUTOMATED)2020-06-27 23:29:00 Test Item Value Reference Range Interpretation Comments POCT GLU (test code = 0090736055) 87 mg/dL 70-110 Lab Interpretation (test code = Normal 12063-1) [facility] GLUCOSE (AUTOMATED)2020-06-27 21:36:00 Test Item Value Reference Range Interpretation Comments POCT GLU (test code = 8252091278) 85 mg/dL 70-110 Lab Interpretation (test code = Normal 00952-5) [facility]2020-06-27 19:55:00 Test Item Value Reference Range Interpretation Comments POCT GLU (test code = 2881062544) 91 mg/dL 70-110 Lab Interpretation (test code = Normal 73706-3) [facility] 19:01:00 Test Item Value Reference Range Interpretation Comments POCT GLU (test code = 4755720553) 125 mg/dL 70-110 H Lab Interpretation (test code = Abnormal 72916-2) [facility] GLUCOSE (AUTOMATED)2020-06-27 17:46:00 Test Item Value Reference Range Interpretation Comments POCT GLU (test code = 4967716512) 122 mg/dL 70-110 H Lab Interpretation (test code = Abnormal 13254-0) [facility] GLUCOSE (AUTOMATED)2020-06-27 16:56:00 Test Item Value Reference Range Interpretation Comments POCT GLU (test code = 1982143049) 98 mg/dL 70-110 Lab Interpretation (test code = Normal 74695-2) [facility] GLUCOSE (AUTOMATED)2020-06-27 14:47:00 Test Item Value Reference Range Interpretation Comments POCT GLU (test code = 1403374890) 209 mg/dL 70-110 H Lab Interpretation (test code = Abnormal 42363-7) [facility] GLUCOSE (AUTOMATED)2020-06-27 14:47:00 Test Item Value Reference Range Interpretation Comments POCT GLU (test code = 2745002070) 181 mg/dL 70-110 H Lab Interpretation (test code = Abnormal 47974-4) [facility] with [id number] 12:55:00 Test Item Value Reference Range Interpretation [...] (test code = 35.6 fL 38.5-51.6 L 26891-0) RDW-CV (test code = 11.8 % 12.1-15.4 L 788-0) PLT (test code = See_Comment L [Automated 777-3) message] The sy stem which generated this result transmitted reference range : 150 - 328 10*3/ ?L. The reference r kristina was not used to interpret this result as normal/abnormal . MPV (test code = 9.9 fL 9.8-13 86317-0) NRBC/100 WBC (test See_Comment [Automat ed code = 2872609447) message] The system which generated this result transmitted reference range : 0.0 - 10.0 /100 WBCs. The refer ence range was not u sed to interpret th is result as normal/abnormal . NRBC x10^3 (test code <0.01 See_Comment [Auto mated = 4251239700) message] The s ystem which generated this result transmitted reference range : 10*3/?L. The reference range was not used to interpret this result as normal/abnormal . GRAN MAT (NEUT) % 59.3 % (test code = 770-8) IMM GRAN % (test code 0.30 % = 2403585880) LYMPH % (test code = 33.7 % 736-9) MONO % (test code = 4.7 % 5905-5) EOS % (test code = 1.3 % 713-8) BASO % (test code = 0.7 % 706-2) GRAN MAT x10^3(ANC) 1.78 10*3/uL 1.99-6.95 L (test code = 4876631277) IMM GRAN x10^3 (test <0.03 0-0.06 code = 1413087990) LYMPH x10^3 (test code 1.01 10*3/uL 1.09-3.23 L = 731-0) MONO x10^3 (test code 0.14 10*3/uL 0.36-1.02 L = 742-7) EOS x10^3 (test code = 0.04 10*3/uL 0.06-0.53 L 711-2) BASO x10^3 (test code <0.03 0.01-0.09 = 704-7) Lab Interpretation Abnormal (test code = 94119-2) [facility] GLUCOSE (AUTOMATED)2020-06-27 12:26:00 Test Item Value Reference Range Interpretation Comments POCT GLU (test code = 5176086393) 238 mg/dL 70-110 H Lab Interpretation (test code = Abnormal 21930-1) [facility] GLUCOSE (AUTOMATED)2020-06-27 12:20:00 Test Item Value Reference Range Interpretation Comments POCT GLU (test code = 0831948965) 216 mg/dL 70-110 H Lab Interpretation (test code = Abnormal 52463-5) [facility] Test Item Value Reference Range Interpretation Comments TRIG (test code = 8882300436) 810 mg/dL 30-170 H Lab Interpretation (test code = Abnormal 22720-8) [facility] (NA, K, CL, CO2, GLUCOSE, BUN, CREATININE, CA)2020-06-27 11:56:00 Test Item Value Reference Range Interpretation Comments NA (test code = 135 mmol/L 135-145 7656297084) K (test code = 3.6 mmol/L 3.5-5 1790104639) CL (test code = 104 mmol/L 98-108 8462558714) CO2 TOTAL (test code = 23 mmol/L 23-31 1246293506) AGAP (test code = 2-16 6474098485) BUN (test code = 5 mg/dL 7-23 L 4225046188) GLUCOSE (test code = 191 mg/dL 70-110 H 5601541382) CREATININE (test code = 0.56 mg/dL 0.6-1.25 L 0396055560) CALCIUM (test code = 8.9 mg/dL 8.6-10.6 3246024326) eGFR Calculation mL/min/1.73m2 (Non-) (test code = 3263607929) eGFR Calculation mL/min/1.73m2 () (test code = 4637607328) OSKAR (test code = OSKAR) Association of [...] tests). Lab Interpretation Abnormal (test code = 22619-5) [facility] 11[facility]:00 Test Item Value Reference Range Interpretation Comments LIPASE (test code = 8762081547) 40 U/L 0-220 Lab Interpretation (test code = Normal 67334-6) [facility] GLUCOSE (AUTOMATED)2020-06-27 09:09:00 Test Item Value Reference Range Interpretation Comments POCT GLU (test code = 0138426068) 185 mg/dL 70-110 H Lab Interpretation (test code = Abnormal 76871-4) [facility] GLUCOSE (AUTOMATED)2020-06-27 08:09:00 Test Item Value Reference Range Interpretation Comments POCT GLU (test code = 9966129475) 124 mg/dL 70-110 H Lab Interpretation (test code = Abnormal 07245-1) [facility] GLUCOSE (AUTOMATED)2020-06-27 07:11:00 Test Item Value Reference Range Interpretation Comments POCT GLU (test code = 6792347118) 104 mg/dL 70-110 Lab Interpretation (test code = Normal 63751-3) [facility] GLUCOSE (AUTOMATED)2020-06-27 06:04:00 Test Item Value Reference Range Interpretation Comments POCT GLU (test code = 7797960264) 97 mg/dL 70-110 Lab Interpretation (test code = Normal 21132-4) [facility] GLUCOSE (AUTOMATED)2020-06-27 04:54:00 Test Item Value Reference Range Interpretation Comments POCT GLU (test code = 7456313840) 54 mg/dL 70-110 L Lab Interpretation (test code = Abnormal 87472-6) [facility] GLUCOSE (AUTOMATED)2020-06-27 04:04:00 Test Item Value Reference Range Interpretation Comments POCT GLU (test code = 4355327634) 88 mg/dL 70-110 Lab Interpretation (test code = Normal 08249-3) [facility] GLUCOSE (AUTOMATED)2020-06-27 03:32:00 Test Item Value Reference Range Interpretation Comments POCT GLU (test code = 9600195858) 104 mg/dL 70-110 Lab Interpretation (test code = Normal 98595-6) [facility] GLUCOSE (AUTOMATED)2020-06-27 03:05:00 Test Item Value Reference Range Interpretation Comments POCT GLU (test code = 2878261099) 68 mg/dL 70-110 L Lab Interpretation (test code = Abnormal 80059-2) [facility] GLUCOSE (AUTOMATED)2020-06-27 02:05:00 Test Item Value Reference Range Interpretation Comments POCT GLU (test code = 3782118378) 113 mg/dL 70-110 H Lab Interpretation (test code = Abnormal 25916-5) [facility] GLUCOSE (AUTOMATED)2020-06-27 01:21:00 Test Item Value Reference Range Interpretation Comments POCT GLU (test code = 4341990042) 122 mg/dL 70-110 H Lab Interpretation (test code = Abnormal 57861-7) [facility] GLUCOSE (AUTOMATED)2020-06-27 00:09:00 Test Item Value Reference Range Interpretation Comments POCT GLU (test code = 0375848395) 125 mg/dL 70-110 H Lab Interpretation (test code = Abnormal 79957-1) [facility] 23:47:00 Test Item Value Reference Range Interpretation Comments TRIG (test code = 9910668980) 1086 mg/dL 30-170 H Lab Interpretation (test code = Abnormal 48459-2) [facility] GLUCOSE (AUTOMATED)2020-06-26 23:12:00 Test Item Value Reference Range Interpretation Comments POCT GLU (test code = 9266880671) 175 mg/dL 70-110 H Lab Interpretation (test code = Abnormal 55549-6) [facility] GLUCOSE (AUTOMATED)2020-06-26 23:12:00 Test Item Value Reference Range Interpretation Comments POCT GLU (test code = 4289965494) 81 mg/dL 70-110 Lab Interpretation (test code = Normal 01298-2) [facility] GLUCOSE (AUTOMATED)2020-06-26 22:50:00 Test Item Value Reference Range Interpretation Comments POCT GLU (test code = 8901427036) 88 mg/dL 70-110 Lab Interpretation (test code = Normal 06708-8) [facility] GLUCOSE (AUTOMATED)2020-06-26 22:26:00 Test Item Value Reference Range Interpretation Comments POCT GLU (test code = 5530763029) 91 mg/dL 70-110 Lab Interpretation (test code = Normal 87843-7) [facility] GLUCOSE (AUTOMATED)2020-06-26 17:06:00 Test Item Value Reference Range Interpretation Comments POCT GLU (test code = 6407931676) 227 mg/dL 70-110 H Lab Interpretation (test code = Abnormal 37771-2) [facility]OTE[facility], [id number] 16:31:00 Test Item Value Reference Range Interpretation Comments dLDL Chol (test code = <30 See_Comment [Au tomated message] 01255-8) The system [employer] generated this result transmitted ref erence range: <130 mg/ dL. The reference range was not used to int erpret this result as normal/abnormal . Lab Interpretation (test Normal code = 93582-5) [facility]IPID [facility] (66596)(TOTAL CHOLESTEROL, TRIGLYCERIDES, HDL)2020-06-26 13:16:00 Test Item Value Reference Range Interpretation Comments CHOL (test code = 217 mg/dL 120-200 H 9398498372) HDL (test code = 13 mg/dL >40 L 5483394227) HDLC RATIO (test code = See_Comment H [Au tomated message] 2451999895) The system [employer] generated this result transmit j luis reference range : <=5.0. The refe rence range was not u sed to interpret th is result as normal/abnormal . TRIG (test code = 1337 mg/dL 30-170 H 9548625847) LDL CHOL (test code = Unable to calculate 97052-1) LDL due to elev ated triglyceride le abena greater than 40 0 mg/dL. VLDL (test code = Unable to calculate 6477328188) VLDL due to yohana vated triglyceride le abena greater than 71 0 mg/dL. Lab Interpretation Abnormal (test code = 39362-3) [facility] 13:03:00 Test Item Value Reference Range Interpretation Comments LIPASE (test code = 6274779859) 60 U/L 0-220 Lab Interpretation (test code = Normal 93373-9) [facility]YCOSYLATED HEMOGLOBIN (A1C)2020-06-26 12:46:00 Test Item Value Reference Range Interpretation Comments HGB A1C (test code = 9.2 % 4-6 H 4548-4) OSKAR (test code = OSKAR) %A1C (NGSP) Interpretation (ADA)4.8-5.6 ? ? Normal or (Non-Diabetic Range)5.7-6.4 ? ? Increased Risk (Pre-Diabetic)>6.5 ?Diabetes Indicated Lab Interpretation Abnormal (test code = 88968-2) [facility]2020-06-26 11:24:00 Test Item Value Reference Range Interpretation Comments POCT GLU (test code = 8382535409) 209 mg/dL 70-110 H Lab Interpretation (test code = Abnormal 35553-9) [facility] ABDOMEN PELVIS W [id number] 05:55:56Impression: 1. Peripancreatic inflammation, likely representing acute [...] demonstrated in the upper abdomen. RL: 2824AFC: [id number] End of Report Exam: CT Abdomen and [...] demonstrated in the upper abdomen. RL: 2824AFC: 46477Agk of Report [facility]ID [facility])2020-06-26 03:44:00 Test Item Value Reference Range Interpretation Comments SARS-CoV-2 Rapid ID NOW Not Detected Not Detected (test code = 69293-4) OSKAR (test code = OSKAR) ID NOW COVID-19 Assay is an isothermal nucleic acid amplification test intended for the qualitative detection of nucleic acid from SARS-CoV-2 viral RNA in nasopharyngeal ([employer]EMIC SU[employer]ORDIN[employer]) specimens. It is used under Emergency Use [...] indicated. Lab Interpretation Normal (test code = 45911-5) [facility]. METABOLIC PANEL (54644)2020-06-26 03:17:00 Test Item Value Reference Range Interpretation Comments NA (test code = 136 mmol/L 135-145 5979704474) K (test code = 4.3 mmol/L 3.5-5 4447256487) CL (test code = 97 mmol/L 98-108 L 8184379097) CO2 TOTAL (test code = 31 mmol/L 23-31 5316139608) AGAP (test code = 2-16 3961907515) BUN (test code = 7 mg/dL 7-23 9931895290) GLUCOSE (test code = 220 mg/dL 70-110 H 7217140896) CREATININE (test code = 0.68 mg/dL 0.6-1.25 3738450900) TOTAL BILI (test code = 1.6 mg/dL 0.1-1.1 H 6402007355) CALCIUM (test code = 9.4 mg/dL 8.6-10.6 2656430927) T PROTEIN (test code = 7.6 g/dL 6.3-8.2 6835832595) ALBUMIN (test code = 4.4 g/dL 3.5-5 6722168677) ALK PHOS (test code = 103 U/L 34-122 8445154898) ALTv (test code = 113 U/L 5-50 H 1742-6) AST(SGOT) (test code = 87 U/L 13-40 H 6754731151) eGFR Calculation mL/min/1.73m2 (Non-) (test code = 8704309768) eGFR Calculation mL/min/1.73m2 () (test code = 3226055048) OSKAR (test code = OSKAR) Association of [...] tests). Lab Interpretation Abnormal (test code = 62644-4) [facility] 03:16:00 Test Item Value Reference Range Interpretation Comments LIPASE (test code = 3196217500) 57 U/L 0-220 Lab Interpretation (test code = Normal 12891-7) [facility] WITH [id number] 03:00:00 Test Item Value Reference Range Interpretation Comments WBC (test code = See_Comment [Automated 6690-2) message] The sy stem which [...] (test code = 35.3 fL 38.5-51.6 L 00651-6) RDW-CV (test code = 11.9 % 12.1-15.4 L 788-0) PLT (test code = See_Comment L [Automated 777-3) message] The sy stem which generated this result transmitted reference range : 150 - 328 10*3/ ?L. The reference r kristina was not used to interpret this result as normal/abnormal . MPV (test code = 9.3 fL 9.8-13 L 79733-9) NRBC/100 WBC (test See_Comment [Automat ed code = 2602398093) message] The system which generated this result transmitted reference range : 0.0 - 10.0 /100 WBCs. The refer ence range was not u sed to interpret th is result as normal/abnormal . NRBC x10^3 (test code <0.01 See_Comment [Auto mated = 9411102612) message] The s ystem which generated this result transmitted reference range : 10*3/?L. The reference range was not used to interpret this result as normal/abnormal . GRAN MAT (NEUT) % 74.6 % (test code = 770-8) IMM GRAN % (test code 0.30 % = 7913096941) LYMPH % (test code = 18.7 % 736-9) MONO % (test code = 4.8 % 5905-5) EOS % (test code = 1.1 % 713-8) BASO % (test code = 0.5 % 706-2) GRAN MAT x10^3(ANC) 4.71 10*3/uL 1.99-6.95 (test code = 5572730790) IMM GRAN x10^3 (test <0.03 0-0.06 code = 3314826325) LYMPH x10^3 (test code 1.18 10*3/uL 1.09-3.23 = 731-0) MONO x10^3 (test code 0.30 10*3/uL 0.36-1.02 L = 742-7) EOS x10^3 (test code = 0.07 10*3/uL 0.06-0.53 711-2) BASO x10^3 (test code 0.03 10*3/uL 0.01-0.09 = 704-7) Lab Interpretation Abnormal (test code = 64181-8) [facility] 02:46:00 Test Item Value Reference Range Interpretation Comments POCT GLU (test code = 4664000690) 248 mg/dL 70-110 H Lab Interpretation (test code = Abnormal 58018-0) [facility]
== END 2022-01-11 21:45 | disposition left against medical advice (07) | DRG 439 ==
LOC: ER 09:17 → ERHOLD 19:29 → 3RD-ICU 01-08 09:19 → 4TH 01-09 15:36 → 2ND 01-11 21:15
PROVIDERS: ADMIT Internal Medicine; ATTEND Internal Medicine
DX: K85.90 Acute pancreatitis without necrosis or infection, unspecified (principal); K86.3 Pseudocyst of pancreas; K86.1 Other chronic pancreatitis; E11.65 Type 2 diabetes mellitus with hyperglycemia; I10 Essential (primary) hypertension; E78.1 Pure hyperglyceridemia; F17.210 Nicotine dependence, cigarettes, uncomplicated; Z79.4 Long term (current) use of insulin; Z53.29 Procedure and treatment not carried out because of patient's decision for other reasons; Z20.822 Contact with and (suspected) exposure to COVID-19
CPT/HCPCS: 36415; 74177; 80048; 80053; 81003; 82310; 83605; 83690; 83735; 84100; 84132; 84478; 85025; 96361; 96374; 96375; 99285; J0360; J1170; J1200; J1650; J1815; J2405; J2550; J3010; J3475; J3480; J7030; J7120; J7799; Q9967; U0003

== ENCOUNTER 2022-09-10 16:25 | Emergency (ER) | payer BC ==
--- OUTSIDE RECORDS SUMMARY | 2022-09-10 16:35 | XMS REPORT | Continuity of Care Document ---
:1980 Author Organization [facility] t Address [address] [place] [address] Care Team Providers Name Role Phone Chetan Coleman Attending Clinician Unavailable Nader Randall Attending Clinician Doctor Unassigned, [place] Attending Clinician Unavailable Lillian James R Attending Clinician Madeline MCDONNELL, Annita Huizar Attending Clinician Concepción FLORES, Kofi Justice Attending Clinician Laurence Jose MD Attending Clinician Cole Guan MD Attending Clinician COLE GUAN Attending Clinician Unavailable Laurence Jose MD Admitting Clinician Payers Payer Name Policy Type Policy Number Effective Date Expiration Date S kat [facility] - [id number] 2019 00:00:00 OUT OF STATE Problems Condition [...] Disease Active Overview: 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, type 2, 00:00: Diagnosis [place] uncontroll uncontroll 00 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, ed, 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 without without Utility complicati complicati ons ons HLD HLD Disease Active Univers (hyperlipi (hyperlipi 04-04 it y of demia) demia) 00:00: [place] 00 Medical Branch Essential Essential Disease Active Uni vers hypertensi hypertensi 04-04 it y of on, benign [place], benign 00:[place]: [place] Vitamin D Vitamin D Disease Active Overview: Univers deficiency deficiency 24 ICD10 it y of 00:00: Diagnosis [place] 00 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 Utility Allergies, Adverse Reactions, Alerts Allergy Allergy Status Severity Reaction(s) Onset Inactive Treating Comm ents Source Name Type Date Date Clinician No Known [facility] Allergie 00:00: s 00 No Known DA Active U [facility] Drug 3-21 Allergie 00:00: s 00 No Known DA Active U [facility] Drug 3-17 Allergie 00:00: s 00 NO KNOWN Drug Active Univers ALLERGIE Class ity of S [facility] Social History Social Habit Start Date Stop Date Quantity Comments Source History of Snuff User [place] of tobacco use [facility] Alcohol Comment occasional Universit y of [facility] Exposure to Not sure University of SARS-CoV-2 [place] Medical (event) Branch Alcohol intake 2020-06-25 2020-06-25 Current University of 00:00:00 00:00:00 non-drinker of [facility] [place] [facility] alcohol (finding) Branch Tobacco use and 2020-06-25 2020-06-25 Current user Univers ity of exposure 00:00:00 00:00:00 [facility] Sex Assigned At [birth year] Universit y of 00:00:00 00:00:00 [facility] Smoking Status Start Date Stop Date Source Never smoker [facility] Medications Ordered Filled Start Stop Current Ordering Indication Dosage Frequency Signature Comments Components Source Medication Medication Date Date Medication? Clinician (SIG) Name Name morpHINE 2020- No 2mg 2 mg, Slow Un cb injection 2 11-16 IV Push, ity of mg 22:00: 22:00 ONCE, 1 [place] 00 :00 dose, [facility] Medical 11/16/20 at Branch 1700, STAT predniSONE 2020- No 20mg 20 mg, Univ ers (DELTASONE) 11-16 Oral, ity of tablet 20 21:30: 20:49 ONCE, 1 [place] mg 00 :00 dose, [facility] Medical 11/16/20 at Branch 1630, ANA MARIA amoxicillin 2020- No 1{tbl} 1 tablet, Univers -clavulanat 11-16 Oral, ity of e 21:30: 20:49 ONCE, 1 [place] (AUGMENTIN) 00 :00 dose, [facility] Med ical 875-125 mg 11/16/20 at [facility] per tablet 1630, 1 tablet Routine
Reason for Anti-Infec tive: Documented Infection< br>Documen j luis Infection Site: Abdominal< br>Duratio n of Therapy: 10 days iopamidol 2020- No [id number] 100mL 100 mL, Univers (ISOVUE 11-16 Intravenou ity o f 370-500 mL) 20:45: 19:30 s, ONCE, 1 [place] injection 00 :00 dose, Sat Medic al 100 mL 11/16/20 at Branch 1545, Routine morpHINE 2020- No 4mg 4 mg, Slow Un cb injection 4 11-16 IV Push, ity of mg 20:15: 19:12 ONCE, 1 [place] 00 :00 dose, [facility] Medical 11/16/20 at Branch 1515, STAT ondansetron 2020- No 4mg 4 mg, Slow Univers (ZOFRAN 11-16 IV Push, ity of (PF)) 19:30: 18:28 ONCE, 1 [place] injection 4 00 :00 dose, Sat Med ical mg 11/16/20 at Branch 1430, ANA MARIA NaCl 0.9% 2020- No 1000mL at 999 Uni vers (NS) bolus 5-08 05-08 mL/hr, ity of infusion 19:30: 21:16 1,000 mL, [place] as 1,000 mL 00 :00 IV Medical Infusion, [place] ONCE, 1 dose, 11/16/20 at 1430, STAT amoxicillin 2020- Yes [id number] 1{tbl} Take 1 Univers -clavulanat 5-08 tablet by ity of e 875-125 00:00: mouth [place] mg per 00 every 12 Medical tablet (twelve) Branch hours. predniSONE Yes [id number] 1 PO BID x Univers 20 mg 5-08 4 days ity of tablet 00:00: [place] 00 Medical Branch ibuprofen 2020- No 800mg 800 mg, Uni vers (IBU) 17 -17 Oral, ity of tablet 800 23:30: 22:44 ONCE, 1 [place] mg 00 :00 dose, [place] [facility] 07/28/20 at Branch 1730, ANA MARIA Diclofenac Yes [id number] Apply to Univers Sodium 1-17 area(s) 2 ity of (VOLTAREN) 00:00: (two) [place] 1 % gel 00 times Medical daily. [place] Diclofenac Yes [id number] Apply to Univers Sodium 1-17 area(s) 2 ity of (VOLTAREN) 00:00: (two) [place] 1 % gel 00 times Medical daily. [place] Diclofenac Yes [id number] Apply to Univers Sodium 1-17 area(s) 2 ity of (VOLTAREN) 00:00: (two) [place] 1 % gel 00 times Medical daily. [place] insulin 2019-07 Yes 36U 36 Units, Unive rs glargine 2-20 Subcutaneo ity o f (LANTUS 03:00: , [facility], [place] U-100) 00 First dose Medical injection (after Branch 36 Units last modificati on) on 06/29/20 at 2100, Until Discontinu ed, Routine gemfibroziL 2019-07 Yes 600mg Take 600 U nivers 600 mg 2-20 mg by ity of tablet 01:33: mouth 2 [place] [address] (two) Medical times Branch daily before breakfast and dinner. metoprolol 2019-07 Yes 25mg Take 25 mg U nivers tartrate 25 2-20 by mouth 2 it y of mg tablet 01:33: (two) [place] [address] times Medical daily. Branch Pantoprazol 2019-07 Yes 40mg Take 40 mg Univers e 40 mg 2-20 by mouth ity of delayed-rel 01:33: daily. [place] ease 08 Medical suspension Branch busPIRone 2019-07 Yes 10mg Take 10 mg Un cb 10 mg 2-20 by mouth 2 ity of tablet 01:33: (two) [place] [address] times Medical daily. Branch niacin 500 2019-07 Yes 500mg Take 500 Un cb mg tablet 2-20 mg by ity of 01:33: mouth [place] 08 daily with Medical breakfast. Branch lipase-prot 2019-07 Yes [id number] Take Univ ers ease-amylas 2-20 36,000 ity of e (CREON) 01:33: Units by [place] s 36,000-114, 08 mouth with Me dical 000- all meals. Branch 180,000 Take 2 unit CpDR capsules by mouth with meals and 1 with each snack. losartan 25 2019-07 Yes 25mg Take 25 mg Univers mg tablet 2-20 by mouth ity of 01:33: daily. [place] [address] Medical Branch vortioxetin 2019-07 Yes 10mg Take 10 mg Univers e 10 mg Tab 2-20 by mouth ity of 01:33: at [place] [address] bedtime. Medical Branch gemfibroziL 2019-07 Yes 600mg Take 600 U nivers 600 mg 2-20 mg by ity of tablet 01:33: mouth 2 [place] [address] (two) Medical times Branch daily before breakfast and dinner. metoprolol 2019-07 Yes 25mg Take 25 mg U nivers tartrate 25 2-20 by mouth 2 it y of mg tablet 01:33: (two) [place] [address] times Medical daily. Branch Pantoprazol 2019-07 Yes [...] with Medical breakfast. Branch lipase-prot 2019- Yes [id number] Take Univ ers ease-amylas 2-20 36,000 ity of e (CREON) 01:33: Units [place] 36,000-114, 08 mouth with Me dical 000- all meals. Branch 180,000 Take 2 unit CpDR capsules by mouth with meals and 1 with each snack. losartan 25 2019- Yes 25mg Take 25 mg Univers mg tablet 2-20 by mouth ity of 01:33: daily. [place] [address] Medical Branch vortioxetin 2019- Yes 10mg Take 10 mg Univers e 10 mg Tab 2-20 by mouth ity of 01:33: at [place] [address] bedtime. Medical Branch gemfibroziL 2019- Yes 600mg Take 600 U nivers 600 mg 2-20 mg by ity of tablet 01:33: mouth 2 [place] 08 (two) Medical times Branch daily before breakfast and dinner. metoprolol 2019- Yes 25mg Take 25 mg U nivers tartrate 25 2-20 by mouth 2 it y of mg tablet 01:33: (two) [place] [address] times Medical daily. Branch Pantoprazol 2019-07 Yes 40mg Take 40 mg Univers e 40 mg 2-20 by mouth ity of delayed-rel 01:33: daily. [place] ease 08 Medical suspension Branch busPIRone 2019- Yes 10mg Take 10 mg Un cb 10 mg 2-20 by mouth 2 ity of tablet 01:33: (two) [place] [address] times Medical daily. Branch niacin 500 2019-07 Yes 500mg Take 500 Un cb mg tablet 2-20 mg by ity of 01:33: mouth [place] 08 daily with Medical breakfast. Branch lipase-prot 2019- Yes [id number] Take Univ ers ease-amylas 2-20 36,000 ity of e (CREON) 01:33: Units [place] 36,000-114, 08 mouth with Me dical 000- all meals. Branch 180,000 Take 2 unit CpDR capsules by mouth with meals and 1 with each snack. losartan 25 2019- Yes 25mg Take 25 mg Univers mg tablet 2-20 by mouth ity of 01:33: daily. [place] [address] Medical Branch vortioxetin 2019- Yes 10mg Take 10 mg Univers e 10 mg Tab 2-20 by mouth ity of 01:33: at [place] [address] bedtime. Medical Branch gemfibroziL 2019- Yes 600mg Take 600 U nivers 600 mg 2-20 mg by ity of tablet 01:33: mouth 2 (two) Medical times [place] daily before breakfast and dinner. metoprolol 2019- Yes 25mg Take 25 mg U nivers tartrate 25 2-20 by mouth 2 it y of mg tablet 01:33: (two) [place] [address] times Medical daily. Branch Pantoprazol 2019- Yes 40mg Take 40 mg Univers e 40 mg 2-20 by mouth ity of delayed-rel 01:33: daily. [place] ease 08 Medical suspension Branch busPIRone 2019-07 Yes 10mg Take 10 mg Un cb 10 mg 2-20 by mouth 2 ity of tablet 01:33: (two) [place] [address] times Medical daily. Branch niacin 500 2019- Yes 500mg Take 500 Un cb mg tablet 2-20 mg by ity of 01:33: mouth [place] 08 daily with Medical breakfast. Branch lipase-prot 2019-07 Yes [id number] Take Univ ers ease-amylas 2-20 36,000 ity of e (CREON) 01:33: Units by [facility] s 36,000-114, 08 mouth with Me dical 000- all meals. Branch 180,000 Take 2 unit CpDR capsules by mouth with meals and 1 with each snack. losartan 25 2019-07 Yes 25mg Take 25 mg Univers mg tablet 2-20 by mouth ity of 01:33: daily. [place] [address] Medical Branch vortioxetin 2019- Yes 10mg Take 10 mg Univers e 10 mg Tab 2-20 by mouth ity of 01:33: at [place] [address] bedtime. Medical Branch gemfibroziL 2019- Yes 600mg Take 600 U nivers 600 mg 2-20 mg by ity of tablet 01:33: mouth 2 [place] [address] (two) Medical times [place] daily before breakfast and dinner. metoprolol 2019- Yes 25mg Take 25 mg U nivers tartrate 25 2-20 by mouth 2 it y of mg tablet 01:33: (two) [place] [address] times Medical daily. Branch Pantoprazol 2019- Yes [...] with Medical breakfast. Branch lipase-prot 2019- Yes [id number] Take Univ ers ease-amylas 2-20 36,000 ity of e (CREON) 01:33: Units by [place] 36,000-114, 08 mouth with Me dical 000- all meals. Branch 180,000 Take 2 unit CpDR capsules by mouth with meals and 1 with each snack. losartan 25 2019- Yes 25mg Take 25 mg Univers mg tablet 2-20 by mouth ity of 01:33: daily. [place] [address] Medical Branch vortioxetin 2019- Yes 10mg Take 10 mg Univers e 10 mg Tab 2-20 by mouth ity of 01:33: at [place] [address] bedtime. Medical Branch gemfibroziL 2019- Yes 600mg Take 600 U nivers 600 mg 2-20 mg by ity of tablet 01:33: mouth 2 [place] 08 (two) Medical times Branch daily before breakfast and dinner. metoprolol 2019- Yes 25mg Take 25 mg U nivers tartrate 25 2-20 by mouth 2 it y of mg tablet 01:33: (two) [place] 08 times Medical daily. Branch Pantoprazol 2019- Yes [...] with Medical breakfast. Branch lipase-prot 2019- Yes [id number] Take Univ ers ease-amylas 2-20 36,000 ity of e (CREON) 01:33: Units [place] 36,000-114, 08 mouth with Me dical 000- all meals. Branch 180,000 Take 2 unit CpDR capsules by mouth with meals and 1 with each snack. losartan 25 2019-07 Yes 25mg Take 25 mg Univers mg tablet 2-20 by mouth ity of 01:33: daily. [place] 08 Medical Branch vortioxetin 2019-07 Yes 10mg Take 10 mg Univers e 10 mg Tab 2-20 by mouth ity of 01:33: at [place] 08 bedtime. Medical Branch insulin 2019-07 2020- No 15U 15 Units, [facility] ers glargine -06-29 Subcutaneo ity of (LANTUS 15:00: 14:07 us, ONCE, [place] U-100) 00 :00 1 dose, Medical injection Sat Branch 15 Units 06/29/20 at 0900, Routine morpHINE 2019-07 Yes 2mg 2 mg, Slow Uni vers injection 2 08-30 IV Push, ity of mg 08:15: Q6HPRN, [place] 00 Starting Medical Sat Branch 06/29/20 at 0215, Until Discontinu ed, Routine, Pain (scale 7-10) atorvastati 2019-07- No [id number] 40mg Take 1 Univers n 40 mg 08-30 tablet by ity of tablet 00:00: 05:59 mouth at [place] 00 :00 bedtime Medical for 30 Branch days. atorvastati 2019-07- No [id number] 40mg Take 1 Univers n 40 mg 08-30 tablet by ity of tablet 00:00: 05:59 mouth at [place] 00 :00 bedtime Medical for 30 Branch days. atorvastati 2019-07- No [id number] 40mg Take 1 Univers n 40 mg 08-30 tablet by ity of tablet 00:00: 05:59 mouth at [place] 00 :00 bedtime Medical for 30 Branch days. atorvastati 2019-07- No [id number] 40mg Take 1 Univers n 40 mg 08-30 tablet by ity of tablet 00:00: 05:59 mouth at [place] 00 :00 bedtime Medical for 30 Branch days. haloperidol 2020-1 2020- No 5mg 5 mg, Slow Univers lactate -28 06-18 IV Push, ity of (HALDOL) 22:30: 22:51 ONCE NOW, [place] injection 5 00 :00 1 dose, Medic al mg Fri Branch 06/28/20 at 1630, Routine LORazepam 2019-07- No 1mg 1 mg, Slow U nivers (ATIVAN) 08-29- IV Push, ity of injection 1 21:00: 20:16 ONCE, 1 [place] mg 00 :00 dose, [facility] Medical 06/28/20 Branch at 1500, Routine FLUoxetine 2019-07 Yes 20mg 20 mg, Unive rs (PROZAC) [...] [place] 40 mEq 00 :00 dose, [facility] Medical 06/28/20 Branch at 0830, Routine Sliding 2019- Yes Subcutaneo Univ ers Scale 2-18 us, AC+HS, ity of Insulin-Reg 13:30: First dose [place] ular + Fsbg 00 on Wed Medica [...] Yes 25mg 25 mg, Unive rs tartrate 18 Oral, BID, ity o f (LOPRESSOR) 02:00: First dose [place] tablet 25 00 on Padmini Medical mg 06/27/20 Branch at 2000, Until Discontinu ed, Routine omega 2019-07 Yes 1000mg 1,000 mg, Unive rs 3-dha-epa-f 17 Oral, TID, it y of be[place]ie oil 20:00: First [place] (FISH OIL) 00 on Padmini Medical capsule 06/27/20 Branch 1,000 mg at 1400, Until Discontinu ed, Routine
Reason for non-formul caitlyn use: PATIENT CURRENTLY TAKING NONFORMULA RY PRODUCT
[employer] team member approving Non-formul caitlyn medication : ELLIS ALMEIDA morpHINE 2019-07 2020- No 2mg 2 mg, [...] First dose [place] mg 00 on [facility] 06/26/20 Branch at 2100, Until Discontinu ed, Routine gemfibroziL 2019-07 Yes 600mg 600 mg, Un cb (LOPID) 2-17 Oral, BID, ity of tablet 600 02:00: First dose [place] mg 00 on [facility] 06/26/20 Branch at 2000, Until Discontinu ed, Routine busPIRone 2019-07 Yes 10mg 10 mg, Univer s (BUSPAR) 2-17 Oral, BID, ity o f tablet 10 02:00: First dose [place] mg 00 on [facility] 06/26/20 Branch at 2000, Until Discontinu ed, Routine enoxaparin 2019-07 Yes 40mg 40 mg, Unive rs (LOVENOX) 16 Subcutaneo ity of injection 23:00: us, DAILY, [place] 40 mg 00 First dose Medical on [facility] 06/26/20 at 1700, Until Discontinu ed, Routine morpHINE 2019-07 2020- No 4mg 4 mg, Slow Un cb injection 4 08-27 IV Push, ity of mg 16:30: 07:29 Q3HPRN, [place] 00 :00 Starting [facility] 06/26/20 at 1030, Until Padmini 06/27/20 [...] rate based on Triglyceri de level, Starting [facility] 06/26/20 at 1016
If glucose < 250, start D5W and titrate to keep glucose 100-180
proCHLORper 2019-07 Yes 10mg 10 mg, IV U nivers azine 2-16 Piggyback, ity of (COMPAZINE) 16:15: Q4HPRN, [place] as 10 mg in 52 Starting Medical NaCl 0.9% Wed Branch (NS) 06/26/20 piggyback at 1015, Until Discontinu ed, 50 mL ketorolac 2019-07 Yes 30mg 30 mg, Univer s (TORADOL) 2-16 Slow IV ity of injection 16:15: Push, [place] 30 mg 35 Q6HPRN, Medical Starting Branch 06/26/20 at 1015, Until Discontinu ed, Routine, Pain (scale 4-6)
Fa culty member approving Restricted medication : VISHALWILLIAMELLIS NaCl 0.9% 2019-07 2020- No 1000mL at [...] Until 06/28/20 at 0721, ANA MARIA Sliding 2019-07- No Subcutaneo Uni vers Scale 2-16 12-16 us, Q6H, ity of Insulin - 12:00: [...] 16:15 Q4HPRN, [place] 11 :46 Starting Medical [facility] Branch 06/26/20 at 0521, Until Wed06/26/20 at 1015, Routine, Pain (scale 7-10) NaCl 0.9% 2019-07 No 1000mL at 125 Uni vers (NS) IV 08-27 mL/hr, IV ity of infusion 08:00: 14:01 Infusion, [place] as 1,000 mL 00 :34 CONTINUOUS Medic al , Starting Branch [facility] 06/26/20 at 0200, Until Wed06/26/20 at 0801, Routine dextrose 50 2019-07 No 25mL 25 mL, Uni vers % in water 08-27 Slow IV ity o f (D50W) 07:48: 13:26 Push, PRN, [place] injection 20 :23 Starting Medica l 25 mL [facility] 06/26/20 at 0148, Until Wed06/28/20 at 0726, ANA MARIA, Blood Glucose < or = 70 mg/dL and patient is unable to swallow or has mental status changes. proMETHazin 2019-07- No 25mg 25 mg, IV Univers e 08-27 Piggyback, ity of (PHENERGAN) 07:45: 07:45 ONCE, 1 [place] 25 mg in 00 :00 dose, [facility] Medica l NaCl 0.9% 06/26/20 Branch (NS) 50 mL at 0145, piggyback 50 mL FENTanyl PF 2019-07- No 100ug 100 mcg, Univers (SUBLIMAZE 08-27 Slow IV ity o f (PF)) 07:45: 06:34 Push, [place] injection 00 :00 ONCE, 1 Medical 100 mcg dose, [facility] Branch 06/26/20 at 0145, Routine morpHINE 2019-07- No 2mg 2 mg, Slow Un cb injection 2 08-27 IV Push, ity of mg 07:44: 11:21 Q4HPRN, [place] 30 :45 Starting Medical [facility] 06/26/20 at 0144, Until Wed06/26/20 at 0521, Routine, Pain (scale 7-10) acetaminoph 2019-07 Yes 650mg 650 mg, Un cb en 16 Oral, ity of (TYLENOL) 07:44: Q6HPRN, [place] [...] :29 s, Medical CONTINUOUS Branch , Starting 06/25/20 at 2200, Until 06/26/20 at 0801, Routine ondansetron 2019-07- No 4mg [...] :00 ONCE, 1 Medical 75 mcg dose, [facility] 06/25/20 at 2200, Routine LOVAZA, 2019-0 Yes [id number] 3g Take 3 Univ ers omega-3-aci 7-31 capsules ity of d ethyl 00:00: by mouth [place] esters, 1 00 daily. Medical [facility] Branch capsule LOVAZA, 2019-0 Yes [id number] 3g Take 3 Univ ers omega-3-aci 7-31 capsules ity of d ethyl 00:00: by mouth [place] esters, 1 00 daily. Medical [facility] Branch capsule LOVAZA, 2019-0 Yes [id number] 3g Take 3 Univ ers omega-3-aci 7-31 capsules ity of d ethyl 00:00: by mouth [place] esters, 1 00 daily. Medical [facility] Branch capsule LOVAZA, 0 Yes [id number] 3g Take 3 Univ ers omega-3-aci 7-31 capsules ity of d ethyl 00:00: by mouth [place] esters, 1 00 daily. Medical [facility] capsule LOVAZA, 2019-0 Yes [id number] 3g Take 3 Univ ers omega-3-aci 7-31 capsules ity of d ethyl 00:00: by mouth [place] esters, 1 00 daily. Medical [facility] capsule LOVAZA, 2019-0 Yes [id number] 3g Take 3 Univ ers omega-3-aci 7-31 capsules ity of d ethyl 00:00: by mouth [place] esters, 1 00 daily. Medical [facility] capsule LOVAZA, 2019-0 Yes [id number] 3g Take 3 Univ ers omega-3-aci 7-31 capsules ity of d ethyl 00:00: by mouth [place] esters, 1 00 daily. Medical [facility] capsule LOVAZA, 2019-0 Yes [id number] 3g Take 3 Univ ers omega-3-aci 7-31 capsules ity of d ethyl 00:00: by mouth [place] esters, 1 00 daily. Medical [facility] capsule ondansetron Yes [id number] 4mg Take 1 Univers (ZOFRAN 5-03 tablet by ity of ODT) 4 mg 00:00: mouth [place] disintegrat 00 every 8 Medic al ing tablet (eight) Branch hours as needed for Nausea and Vomiting (N/V). ondansetron Yes [id number] 4mg Take 1 Univers (ZOFRAN 5-03 tablet by ity of ODT) 4 mg 00:00: mouth [place] disintegrat 00 every 8 Medic al ing tablet (eight) Branch hours as needed for Nausea and Vomiting (N/V). ondansetron 2019-0 Yes [id number] 4mg Take 1 Univers (ZOFRAN 5-03 tablet by ity of ODT) 4 mg 00:00: mouth [place] disintegrat 00 every 8 Medic al ing tablet (eight) Branch hours as needed for Nausea and Vomiting (N/V). ondansetron 2019-0 Yes [id number] 4mg Take 1 Univers (ZOFRAN 5-03 tablet by ity of ODT) 4 mg 00:00: mouth [place] disintegrat 00 every 8 Medic al ing tablet (eight) Branch hours as needed for Nausea and Vomiting (N/V). ondansetron 2019-0 Yes [id number] 4mg Take 1 Univers (ZOFRAN 5-03 tablet by ity of ODT) 4 mg 00:00: mouth [place] disintegrat 00 every 8 Medic al ing tablet (eight) Branch hours as needed for Nausea and Vomiting (N/V). ondansetron 2019-0 Yes [id number] 4mg Take 1 Univers (ZOFRAN 5-03 tablet by ity of ODT) 4 mg 00:00: mouth [place] disintegrat 00 every 8 Medic al ing tablet (eight) Branch hours as needed for Nausea and Vomiting (N/V). ondansetron 2019-0 Yes [id number] 4mg Take 1 Univers (ZOFRAN 5-03 tablet by ity of ODT) 4 mg 00:00: mouth [place] disintegrat 00 every 8 Medic al ing tablet (eight) Branch hours as needed for Nausea and Vomiting (N/V). ondansetron 2019-0 Yes [id number] 4mg Take 1 Univers (ZOFRAN 5-03 tablet by ity of ODT) 4 mg 00:00: mouth [place] disintegrat 00 every 8 Medic al ing tablet (eight) Branch hours as needed for Nausea and Vomiting (N/V). ondansetron 2019-0 Yes [id number] 4mg Take 1 Univers (ZOFRAN 5-03 tablet by ity of ODT) 4 mg 00:00: mouth [place] disintegrat 00 every 8 Medic al ing tablet (eight) Branch hours as needed for Nausea and Vomiting (N/V). ondansetron Yes [id number] 4mg Take 1 Univers (ZOFRAN 5-03 tablet by ity of ODT) 4 mg 00:00: mouth [place] disintegrat 00 every 8 Medic al ing tablet (eight) Branch hours as needed for Nausea and Vomiting (N/V). Insulin Yes QID, Univers [place], 9 DX:E11.9 ity of Disposable, 00:00: [place] (BD INSULIN 00 Medical PEN NEEDLE Branch UF) 31 gauge x 5/16" Ndle Insulin Yes QID, Univers [place], 04-05 DX:E11.9 ity of Disposable, 00:00: [place] (BD INSULIN Medical PEN NEEDLE Branch UF) 31 gauge x 5/16" Ndle Insulin Yes QID, Univers [place], 04-05 DX:E11.9 ity of Disposable, 00:00: [place] (BD INSULIN Medical PEN NEEDLE Branch UF) 31 gauge x 5/16" Ndle Insulin Yes QID, Univers [place], 04-05 DX:E11.9 ity of Disposable, 00:00: [place] (BD INSULIN 00 Medical PEN NEEDLE Branch UF) 31 gauge x 5/16" Ndle Insulin Yes QID, Univers [place], 04-05 DX:E11.9 ity of Disposable, 00:00: [place] (BD INSULIN 00 Medical PEN NEEDLE Branch UF) 31 gauge x 5/16" Ndle Insulin Yes QID, Univers [place], 04-05 DX:E11.9 ity of Disposable, 00:00: [place] (BD INSULIN Medical PEN NEEDLE Branch UF) 31 gauge x 5/16" Ndle atorvastati Yes [id number] 40mg Take 1 Univers n (LIPITOR) 9-25 tablet by ity of 40 mg 00:00: mouth at [place] tablet 00 bedtime. Medical Branch LOVAZA, Yes [id number] 2g Take 2 Uni vers omega-3-aci 9-25 capsules ity of d ethyl 00:00: by mouth 2 [place] esters, 00 (two) Medical (LOVAZA) 1 times Branch gram daily capsule before breakfast and dinner. Insulin Yes QID, Univers [place], 04-05 DX:E11.9 ity of Disposable, 00:00: [place] (BD INSULIN 00 Medical PEN NEEDLE Branch UF) 31 gauge x 5/16" Ndle atorvastati Yes [id number] 40mg Take 1 Univers n (LIPITOR) 9-25 tablet by ity of 40 mg 00:00: mouth at [place] tablet 00 bedtime. [facility], Yes [id number] 2g Take 2 Uni vers omega-3-aci -25 capsules ity of d ethyl 00:00: by mouth 2 [place] esters, 00 (two) Medical (LOVAZA) 1 times Branch gram daily capsule before breakfast and dinner. Insulin Yes QID, Univers [place], 04-05 DX:E11.9 ity of Disposable, 00:00: [place] (BD INSULIN 00 Medical PEN NEEDLE Branch UF) 31 gauge x 5/16" Ndle Insulin Yes QID, Univers [place], 04-05 DX:E11.9 ity of Disposable, 00:00: [place] (BD INSULIN Medical PEN NEEDLE Branch UF) 31 gauge x 5/16" Ndle Insulin Yes QID, Univers [place], 04-05 DX:E11.9 ity of Disposable, 00:00: [place] (BD INSULIN 00 Medical PEN NEEDLE Branch UF) 31 gauge x 5/16" Ndle atorvastati 2020- No [id number] 40mg Take 1 Univers n (LIPITOR) 04-05 tablet by it y of 40 mg 00:00: 00:00 mouth at [place] tablet 00 :00 bedtime. [facility], 2020- No [id number] 2g Take 2 Un cb omega-3-aci 04-05- capsules ity of d ethyl 00:00: 00:00 by mouth 2 [place] esters, 00 :00 (two) Medical (LOVAZA) 1 times Branch gram daily capsule before breakfast and dinner. insulin Yes [id number] Inject as U nivers aspart 6-20 instructed ity of (NOVOLOG 00:00: [place] FLEXPEN[place] 00 to 80 Medical 100 unit/mL units Branch injection daily Insulin Yes [id number] 35U inject 35 U nivers Glargine 6-20 Units ity of (LANTUS 00:00: under the [place] SOLOSTAR) 00 skin every Medi maribeth 100 unit/mL morning. Bran ch (3 mL) injection insulin Yes [id number] Inject as U nivers aspart 6-20 instructed ity of (NOVOLOG 00:00: [place] FLEXPEN[place] 00 to 80 Medical 100 unit/mL units Branch injection daily Insulin Yes [id number] 35U inject 35 U nivers Glargine 6-20 Units ity of (LANTUS 00:00: under the [place] SOLOSTAR) 00 skin every Medi maribeth 100 unit/mL morning. Bran ch (3 mL) injection insulin Yes [id number] Inject as U nivers aspart 6-20 instructed ity of (NOVOLOG 00:00: [place] FLEXPEN) 00 to 80 Medical 100 unit/mL units Branch injection daily Insulin Yes [id number] 35U inject 35 U nivers Glargine 6-20 Units ity of (LANTUS 00:00: under the [place] SOLOSTAR) 00 skin every Medi maribeth 100 unit/mL morning. Bran ch (3 mL) injection insulin Yes [id number] Inject as U nivers aspart 6-20 instructed ity of (NOVOLOG 00:00: [place] FLEXPEN) 00 to 80 Medical 100 unit/mL units Branch injection daily Insulin Yes [id number] 35U inject 35 U nivers Glargine 6-20 Units ity of (LANTUS 00:00: under the [place] SOLOSTAR) 00 skin every Medi maribeth 100 unit/mL morning. Bran ch (3 mL) injection insulin Yes [id number] Inject as U nivers aspart 6-20 instructed ity of (NOVOLOG 00:00: [place] FLEXPEN) 00 to 80 Medical 100 unit/mL units Branch injection daily Insulin Yes [id number] 35U inject 35 U nivers Glargine 6-20 Units ity of (LANTUS 00:00: under the [place] SOLOSTAR) 00 skin every Medi maribeth 100 unit/mL morning. Bran ch (3 mL) injection glucagon 1 Yes [id number] Use as U nivers mg/mL SolR 6-20 instructed ity of injection [place]: [place] 00 severe Medical hypoglycem Branch [place]. insulin Yes [id number] Inject as U nivers aspart 6-20 instructed ity of (NOVOLOG 00:00: [place] FLEXPEN) 00 to 80 Medical 100 unit/mL units Branch injection daily Insulin Yes [id number] 35U inject 35 U nivers Glargine 6-20 Units ity of (LANTUS 00:00: under the [place] SOLOSTAR) 00 skin every Medi maribeth 100 unit/mL morning. Bran ch (3 mL) injection insulin Yes [id number] Inject as U nivers aspart 6-20 instructed ity of (NOVOLOG 00:00: [place] FLEXPEN) 00 to 80 Medical 100 unit/mL units Branch injection daily Insulin Yes [id number] 35U inject 35 U nivers Glargine 6-20 Units ity of (LANTUS 00:00: under the [place] SOLOSTAR) 00 skin every Medi maribeth 100 unit/mL morning. Bran ch (3 mL) injection glucagon 1 Yes [id number] Use as U nivers mg/mL SolR 6-20 instructed ity of injection 00:00: [place] 00 severe Medical hypoglycem Branch ia. insulin Yes [id number] Inject as U nivers aspart 6-20 instructed ity of (NOVOLOG 00:00: TID [place] FLEXPEN) 00 to 80 Medical 100 unit/mL units Branch injection daily Insulin Yes [id number] 35U inject 35 U nivers Glargine 6-20 Units ity of (LANTUS 00:00: under the [place] SOLOSTAR) 00 skin every Medi maribeth 100 unit/mL morning. Bran ch (3 mL) injection insulin Yes [id number] Inject as U nivers aspart 6-20 instructed ity of (NOVOLOG 00:00: [place] FLEXPEN) 00 to 80 Medical 100 unit/mL units Branch injection daily Insulin Yes [id number] 35U inject 35 U nivers Glargine 6-20 Units ity of (LANTUS 00:00: under the [place] SOLOSTAR) 00 skin every Medi maribeth 100 unit/mL morning. Bran ch (3 mL) injection insulin Yes [id number] Inject as U nivers aspart 6-20 instructed ity of (NOVOLOG 00:00: TID [place] FLEXPEN) 00 to 80 Medical 100 unit/mL units Branch injection daily Insulin Yes [id number] 35U inject 35 U nivers Glargine 6-20 Units ity of (LANTUS 00:00: under the [place] SOLOSTAR) 00 skin every Medi maribeth 100 unit/mL morning. Bran ch (3 mL) injection glucagon 1 2020- No [id number] Use as Univers mg/mL SolR 6-20 02-08 [...] ity of mg tablet 00:00: every 6 [place] 00 (six) Medical hours as Branch needed [...] by mouth ity of tablet 00:00: daily. [place] [facility] enalapril 2014-07 Yes 5mg Take 1 Tab Un cb (VASOTEC) 5 0-10 by mouth ity of mg tablet 00:00: daily. [place] [facility] fenofibrate 2014-07 Yes 134mg Take 1 Cap Univers micronized 0-10 by mouth ity o f (LOFIBRA) 00:00: daily. [place] 134 mg 00 Medical capsule Branch aspirin [...] mouth ity o f (LOFIBRA) 00:00: daily. [place] 134 mg 00 Medical capsule Branch aspirin 81 2014-07 2020- No 81mg Take 1 Tab Univers mg chewable 0-10 07-31 by mouth ity of tablet 00:00: 00:00 daily. [place] 00 :00 Medical Branch enalapril 2014-07 2020- No 5mg Take 1 Tab U nivers (VASOTEC) 5 0-10 07-31 by mouth ity of mg tablet 00:00: 00:00 daily. 00 :00 Medical Branch fenofibrate 2014-07 2020- No 134mg Take 1 Cap Univers micronized 0-10 07-31 by mouth ity of (LOFIBRA) 00:00: 00:00 daily. [place] 134 mg 00 :00 Medical capsule Branch blood sugar 2011-07 Yes [id number] before Univers diagnostic 0-05 meals and ity of (FREESTYLE 00:00: at [place] INSULINX) 00 bedtime. Medica l strip Branch blood sugar 2011-07 Yes [id number] before Univers diagnostic 0-05 meals and ity of (FREESTYLE 00:00: at [place] INSULINX) 00 bedtime. Medica l strip Branch blood sugar 2011-07 2020- No [id number] before Univers diagnostic 0-05 07-31 meals and ity of (FREESTYLE 00:00: 00:00 at [place] INSULINX) 00 :00 bedtime. Medica l strip Branch Lancets Yes [id number] Univer s (LANCETS,UL 9-24 ity of TRA THIN) 00:00: [facility] [place] [facility] Medical Branch Lancets 2011-0 Yes [id number] Univer s (LANCETS,UL 9-24 ity of TRA THIN) 00:00: [place] [address] Medical Branch Lancets 2011-0 Yes [id number] Univer s (LANCETS,UL 9-24 ity of TRA THIN) 00:00: [place] [address] Medical Branch Lancets 2012-0 Yes [id number] Univer s (LANCETS,UL 9-24 ity of TRA THIN) 00:00: [place] [address] Medical Branch Lancets 2012-0 Yes [id number] Univer s (LANCETS,UL 9-24 ity of TRA THIN) 00:00: [place] [address] Medical Branch Lancets 2012-0 Yes [id number] Univer s (LANCETS,UL 9-24 ity of TRA THIN) 00:00: [place] [address] Medical Branch Lancets 2012-0 Yes [id number] Univer s (LANCETS,UL 9-24 ity of TRA THIN) 00:00: [place] [address] Medical Branch Lancets 2012-0 Yes [id number] Univer s (LANCETS,UL 9-24 ity of TRA THIN) 00:00: [place] [address] Medical Branch Lancets 2012-0 Yes [id number] Univer s (LANCETS,UL 9-24 ity of TRA THIN) 00:00: [place] [address] Medical Branch Lancets 2012-0 Yes [id number] Univer s (LANCETS,UL 9-24 ity of TRA THIN) 00:00: [place] [address] Medical Branch Vital Signs Vital Name Observation Time Observation Value Comments Source Systolic blood 2020-11-16 21:02:00 150 mm[Hg] Univer sity of pressure [place] [facility] Diastolic blood 2020-11-16 21:02:00 93 mm[Hg] Unive rsity of pressure [place] [facility] Heart rate 2020-11-16 21:02:00 93 /min Universi ty of [place] [facility] Respiratory rate 2020-11-16 21:02:00 20 /min Univ ersity of [place] [facility] Oxygen saturation in 2020-11-16 21:02:00 100 /min University of Arterial blood by [facility] Pulse oximetry Branch Body temperature 2020-11-16 18:21:00 36.61 Dejah Univ ersity of [place] [facility] Body weight 2020-11-16 18:21:00 89.359 kg Universi ty of [place] [facility] BMI 2020-11-16 18:21:00 28.27 kg/m2 Universi ty of [place] [facility] Systolic blood 2020-07-28 21:58:00 147 mm[Hg] Univer sity of pressure [place] [facility] Diastolic blood 2020-07-28 21:58:00 100 mm[Hg] Unive rsity of pressure [place] [facility] Heart rate 2020-07-28 21:58:00 103 /min Universi ty of [place] [facility] Body temperature 2020-07-28 21:58:00 36.28 Dejah Univ ersity of [place] [facility] Respiratory rate 2020-07-28 21:58:00 20 /min Univ ersity of [place] [facility] Body weight 2020-07-28 21:58:00 86.183 kg Universi ty of [place] [facility] BMI 2020-07-28 21:58:00 27.26 kg/m2 Universi ty of [place] [facility] Oxygen saturation in 2020-07-28 21:58:00 100 /min University of Arterial blood by [facility] [place] [facility] Pulse oximetry Branch Systolic blood 2020-06-29 22:21:00 133 mm[Hg] Univer sity of pressure [place] [facility] Diastolic blood 2020-06-29 22:21:00 81 mm[Hg] Unive rsity of pressure [facility] Heart rate 2020-06-29 22:21:00 89 /min Universi ty of [facility] Body temperature 2020-06-29 22:21:00 36.83 Dejah Univ ersity of [facility] Respiratory rate 2020-06-29 22:21:00 18 /min Univ ersity of [facility] Oxygen saturation in 2020-06-29 22:21:00 99 /min University of Arterial blood by [facility] [place] [facility] Pulse oximetry Branch Body weight 2020-06-27 10:03:00 87.998 kg Universi ty of [facility] BMI 2020-06-27 10:03:00 27.84 kg/m2 Universi ty of [facility] Body height 2020-06-26 07:45:00 177.8 cm Universi ty of [facility] Systolic blood 2020-06-29 22:21:00 133 mm[Hg] Univer sity of pressure [facility] Diastolic blood 2020-06-29 22:21:00 81 mm[Hg] Unive rsity of pressure [facility] Heart rate 2020-06-29 22:21:00 89 /min Universi ty of [facility] Body temperature 2020-06-29 22:21:00 36.83 Dejah Univ ersity of [facility] Respiratory rate 2020-06-29 22:21:00 18 /min Univ ersity of [facility] Oxygen saturation in 2020-06-29 22:21:00 99 /min University of Arterial blood by [facility] [place] [facility] Pulse oximetry Branch Body weight 2020-06-27 10:03:00 87.998 kg Universi ty [facility] BMI 2020-06-27 10:03:00 27.84 kg/m2 Universi ty [facility] Body height 2020-06-26 07:45:00 177.8 cm Universi ty [facility] Procedures Procedure Date / Time Performing Clinician Source Performed CT ABDOMEN PELVIS W 2020-11-16 19:40:[address] [facility] LIPASE 2020-11-16 18:28:00 Nader Mendoza [facility] MAGNESIUM 2020-11-16 18:28:00 Nader Mendoza [facility] COMP. METABOLIC PANEL 2020-11-16 18:28:00 Nader Mendoza [facility] ([id number]) Medical Branch CBC WITH DIFF 2020-11-16 18:28:00 Nader Mendoza [facility] URINALYSIS 2020-11-16 18:28:00 Nader Mendoza Shayla [facility] POCT GLUCOSE (AUTOMATED) 2020-11-16 18:25:00 Nader Mendoza [facility] CONSENT/REFUSAL FOR 2020-11-16 18:14:39 Doctor Unassigned, [facility] DIAGNOSIS AND TREATMENT [place] [facility] CT CERVICAL SPINE WO 2020-07-28 22:41:56 Lillian Barr [facility] CONTRAST [facility] CT HEAD WO CONTRAST 2020-07-28 22:41:56 Lillian [facility] NOTICE OF PRIVACY 2020-07-28 21:50:31 Doctor Unassigned, [facility] PRACTICES [place] [facility] CONSENT/REFUSAL FOR 2020-07-28 21:50:20 Doctor Unassigned, [facility] DIAGNOSIS AND TREATMENT [place] [facility] POCT GLUCOSE (AUTOMATED) 2020-06-29 23:35:00 [facility] 2020-06-29 18:04:00 Rebeca [facility] POCT GLUCOSE (AUTOMATED) 2020-06-29 13:54:00 [facility] TRIGLY[facility]ERIDES 2020-06-29 11:20:00 Ellis Almeida [facility] BASIC METABOLIC PANEL 2020-06-29 11:20:00 [facility] (NA, K, CL, CO2, GLUCOSE, Medica l Branch BUN, CREATININE, CA) CBC WITH DIFF 2020-06-29 11:20[facility] - [facility]EN 2020-06-29 03:10:00 Favio Moscoso [facility] TRIAGE [facility] POCT GLUCOSE (AUTOMATED) 2020-06-28 22:46:00 Rebeca [facility] POCT GLUCOSE (AUTOMATED) 2020-06-28 18:53:00 Rebeca Laurence Uni versity of [facility] POCT GLUCOSE (AUTOMATED) 2020-06-28 18:01:00 Rebeca Laurence aBgley versity of [facility] POCT GLUCOSE (AUTOMATED) 2020-06-28 13:27:00 Rebeca Laurence Bagley versity of [facility] POCT GLUCOSE (AUTOMATED) 2020-06-28 11:48:00 [facility] TRIGLYCERIDES 2020-06-28 10:27:00 Ellis Almeida [facility] LIPASE 2020-06-28 10:27:[address] [facility] MAGNESIUM 2020-06-28 10:27:00 Danis [facility] BASIC METABOLIC PANEL 2020-06-28 10:27:[facility] (NA, K, CL, CO2, GLUCOSE, Medica l Branch BUN, CREATININE, CA) ETHANOL 2020-06-28 10:27:00 Danis [facility] CBC WITH DIFF 2020-06-28 10:27:00 [facility] PO[facility]UCOSE (AUTOMATED) 2020-06-28 10:10:00 Rebeca Laurence Bagley versity of [facility] POCT GLUCOSE (AUTOMATED) 2020-06-28 07:00:00 Rebeca Laurence Bagley versity of [facility] POCT GLUCOSE (AUTOMATED) 2020-06-28 05:48:00 Rebeca Laurence Bagley versity of [facility] POCT GLUCOSE (AUTOMATED) 2020-06-28 04:45:00 Rebeca Laurence Uni versity of [facility] POCT GLUCOSE (AUTOMATED) 2020-06-28 03:40:00 Rebeca Valerieprice Uni versity of [facility] POCT GLUCOSE (AUTOMATED) 2020-06-28 02:43:00 [facility] vers[facility] POCT GLUCOSE (AUTOMATED) 2020-06-28 01:39:00 Rebeca Laurence Uni versity of [facility] POCT GLUCOSE (AUTOMATED) 2020-06-27 23:10:00 [facility] TRIGLYCERIDES 2020-06-27 23:08:00 [facility]SE (AUTOMATED) 2020-06-27 21:29:00 Rebeca Laurence Uni versity of [facility] POCT GLUCOSE (AUTOMATED) 2020-06-27 19:54:00 Rebeca Laurence Uni versity of [facility] POCT GLUCOSE (AUTOMATED) 2020-06-27 18:59:00 Edtere Laurence Uni versity of [facility] POCT GLUCOSE (AUTOMATED) 2020-06-27 17:42:00 Edioncal, Laurence Uni versity of [facility] POCT GLUCOSE (AUTOMATED) 2020-06-27 16:50:00 Edtere Laurence Uni versity of [facility] POCT GLUCOSE (AUTOMATED) 2020-06-27 14:43:00 Edtere Laurence Uni versity of [facility] POCT GLUCOSE (AUTOMATED) 2020-06-27 13:19:00 Rebeca Laurence AlterG versity of [facility] POCT GLUCOSE (AUTOMATED) 2020-06-27 12:18:00 Rebeca Laurence AlterG versity [facility] TRIGLYCERIDES 2020-06-27 10:20:00 [facility] LIPASE 2020-06-27 10:20:00 [facility] BASIC METABOLIC PANEL 2020-06-27 10:20:00 Rebeca [facility] (NA, K, CL, CO2, GLUCOSE, Medica l Branch BUN, CREATININE, CA) CBC WITH DIFF 2020-06-27 10:20:[address] [facility] POCT GLUCOSE (AUTOMATED) 2020-06-27 10:06:00 Rebeca Laurence AlterG versity of [facility] POCT GLUCOSE (AUTOMATED) 2020-06-27 09:06:00 Rebeca [employer] AlterG versity of [facility] POCT GLUCOSE (AUTOMATED) 2020-06-27 08:07:00 Rebeca [employer] AlterG versity of [facility] POCT GLUCOSE (AUTOMATED) 2020-06-27 07:09:00 Edtere [employer] Uni versity of [facility] POCT GLUCOSE (AUTOMATED) 2020-06-27 06:02:00 Edlilawe, Valeriey Uni versity of [place] [facility] POCT GLUCOSE (AUTOMATED) 2020-06-27 04:52:00 Edioncal, [facility] Uni versity of [place] [facility] POCT GLUCOSE (AUTOMATED) 2020-06-27 04:02:00 Edtere, [facility] Uni versity of [place] [facility] POCT GLUCOSE (AUTOMATED) 2020-06-27 03:28:00 Edtere, Valeriey Uni versity of [place] [facility] POCT GLUCOSE (AUTOMATED) 2020-06-27 03:02:00 Edionwe, [facility] Uni versity of [place] [facility] POCT GLUCOSE (AUTOMATED) 2020-06-27 02:01:00 Edionwe, [facility] Uni versity of [place] [facility] POCT GLUCOSE (AUTOMATED) 2020-06-27 01:15:00 Edtere, [facility] Uni versity of [place] [facility] POCT GLUCOSE (AUTOMATED) 2020-06-27 00:07:00 EdValerie carranzay Uni versity of [place] [facility] POCT GLUCOSE (AUTOMATED) 2020-06-26 22:46:00 Edioncal, [facility] Uni versity of [place] [facility] TRIGLYCERIDES 2020-06-26 22:07:00 Ellis Almeida [facility] o f [place] [facility] POCT GLUCOSE (AUTOMATED) 2020-06-26 21:45:00 EdValerie carranzay Uni versity of [place] [facility] POCT GLUCOSE (AUTOMATED) 2020-06-26 20:38:00 Rebeca [facility] Uni versity of [place] [facility] POCT GLUCOSE (AUTOMATED) 2020-06-26 18:13:00 Laurence Jose Uni versity of [place] [facility] POCT GLUCOSE (AUTOMATED) 2020-06-26 17:03:00 Valerie Josey Uni versity of [place] [facility] LIPASE 2020-06-26 11:15:[address] [facility] o f [place] [facility] LIPID PANEL ([id number])(TOTAL 2020-06-26 11:15:00 Laurence [facility] [place] CHOLESTEROL, Medical Branch TRIGLYCERIDES, HDL) GLYCOSYLATED HEMOGLOBIN 2020-06-26 11:15:00 Rebeca [facility] [place] [facility] Branch LOW-DENSITY LIPOPROTEIN, 2020-06-26 11:15:00 Laurence Jose Uni [facility] DIRECT Medical Branch POCT GLUCOSE (AUTOMATED) 2020-06-26 11:12:00 Laurence Jose Y[facility] CT ABDOMEN PELVIS W 2020-06-26 04:40:39 Kofi Beebe [facility] CONTRAST [facility] ASSIGNMENT OF BENEFITS 2020-06-26 03:16:02 Doctor Unasschiquita, [facility] [place] [facility] COVID-19 (ID NOW RAPID 2020-06-26 03:12:00 Kofi Beebe [facility] TESTING) Medical Branch LAB ONLY COVID 2020-06-26 03:12:00 Kofi Beebe [facility] INTERPRETATION [facility] Branch LIPASE 2020-06-26 02:54:00 Kofi Beebe [facility] COMP. METABOLIC PANEL 2020-06-26 02:54:00 Kofi Beebe [facility] ([id number]) Medical Branch CBC WITH DIFF 2020-06-26 02:54:00 Kofi Beebe [facility] POCT GLUCOSE (AUTOMATED) 2020-06-26 02:44:00 Kofi Beebe [facility] CONSENT/REFUSAL FOR 2020-06-26 02:29:58 Doctor Rachid, [facility] DIAGNOSIS AND TREATMENT [place] [facility] EXTERNAL PROVIDER RECORDS 2020-02-09 05:01:00 Doctor Rachid, [facility] Name [facility] Encounters Start End Encounter Admission Attending Care Care Encounter Source Date/Time Date/Time Type Type Clinicians Facility Department ID 2021-10-03 Inpatient Chetan Coleman [facility] [id number] [facility] 16:00:00 68 2021-09-29 Inpatient Chetan Coleman [facility] [id number] [facility] 17:00:00 79 2021-05-11 Emergency [facility] [id number] Univers 17:56:10 ity of [facility] 2021-05-10 Emergency [facility] [id number] Univers 17:48:01 ity [facility] 2021-05-10 Emergency [facility] [id number] [facility] 2021-10-03 2021-10-03 Outpatient [facility] [id number] [facility] 16:42:00 16:42:00 68 2021-09-29 2021-09-29 Outpatient [facility] [id number] [facility] 14:17:00 14:17:00 79 2021-09-25 2021-09-25 Outpatient [facility] [id number] [facility] 13:47:00 13:47:00 55 2021-09-25 2021-09-25 Outpatient Elective Chetan Coleman [facility] [id number] [facility] 13:47:00 13:47:00 55 2020-11-16 2020-11-16 Emergency Kelly, K [facility] [id number] [facility] 13:16:00 16:24:00 Shayla Pierre [id number] i ty of [place] [id number] [facility] [phone] [place] [address] Branch 2020-11-16 2020-11-16 Orders Doctor JEROME [id number] [place] [address] 00:00:00 00:00:00 Only Unassigned, KYLE [id number] ity of [place] [facility] [id number] Sergio as [phone] [facility] 009 Branch 2020-07-28 2020-07-28 Emergency [facility] [id number] [facility] 16:00:00 17:40:00 Lillian Pierre [id number] i ty of [place] [id number] [facility] [phone] [place] [address] Branch 2020-07-28 2020-07-28 Orders Doctor JEROME [id number] [facility] 00:00:00 00:00:00 Only Unassigned, KYLE [id number] [facility]y of [place] [facility] 4.2.7.2.686 Sergio as [phone] [facility] 009 Branch 2020-07-01 2020-07-01 Transition Sam Correa [id number] [facility] 00:00:00 00:00:00 of Care Annita Bucky [id number] i ty [place] [id number] [facility] 403 Branch 2020-07-01 2020-07-01 Transition Sam Correa [id number] 00:00:00 00:00:00 of Care Annita Bucky [id number] [place] [id number] [facility] 2020-06-25 2020-06-29 [facility] 1.2.840. [id number] [facility] 20:44:00 19:29:00 Encounter Laurence Jose [id number] ity of [place] 4.2.7.2.686 [facility] [place] [id number] [facility] [address] [place] [address] 2020-06-25 2020-06-29 [facility] 1.2.840. 114 [id number] 20:44:00 19:29:00 Encounter Laurence Jose [id number] [place] 4.2.7.2.686 [place] [id number] [facility] 2020-06-25 2020-06-25 Orders Doctor JEROME [id number] Univers 00:00:00 00:00:00 Only Unassigned, KYLE [id number] [facility]y [facility] [place] [facility] 4.2.7.2.686 Sergio as [phone] [facility] 009 Branch 2020-06-25 2020-06-25 Orders Doctor QUEENIE [id number] 00:00:00 00:00:00 Only Unassigned, KYLE [id number] [place] [facility] 4.2.7.2.686 [id number] 009 2020-02-09 2020-02-09 Telemedici [facility] [id number] [facility] 15:04:39 15:53:06 ne Visit Cole Pierre [id number] [place] [phone] Me dical [address] 2020-02-09 2020-02-09 Telemedici [facility] 1.2.840.114 [id number] 15:04:39 15:53:06 ne Visit Cole Cohen Ignacio [id number] [place] 4.2.7.2.686 Professio [id number] [address] 2020-02-09 2020-02-09 [facility] [id number] [facility] 15:00:00 15:00:00 COLE medina of [facility] 2020-02-09 2020-02-09 Orders Doctor QUEENIE [id number] [facility] 00:00:00 00:00:00 Only Unassigned, KYLE [id number] [facility]y of [place] [facility] 4.2.7.2.686 Sergio as [phone] [address] 2020-02-09 2020-02-09 Orders Doctor QUEENIE 1.2.840.114 [id number] 00:00:00 00:00:00 Only Unassigned, KYLE [id number] [place] [facility] 4.2.7.2.[id number] [facility] 2020-02-07 2020-02-07 Telephone [facility] [id number] [facility] 00:00:00 00:00:00 Cole Pierre [id number] i [place] [phone] Fl dical [address] 2020-02-07 2020-02-07 Telephone [facility] 1.2.840.114 [id number] 00:00:00 00:00:00 Cole Pierre [id number] [place] 4.2.7.2.686 Professio [id number] [address] Results Test Description Test Time Test Comments Results Result Comments Source Glucose Fingerstick 2021-10-03 20:01:00 Test Item Value Reference Range Interpretation Comme nts Glucose Fingerstick (test code = WGLUC) 247 mg/dL 70-115 CONCRETE PAVER Edenilson Santana Glucose Reeswxwzhsa0713-33-68 17:29:00 Test Item Value Reference Range Interpretation Comments Glucose Fingerstick 296 mg/dL 70-115 CONCRETE PAV[employer] DANIEL (test code = WGLUC) DES T Glucose Rkcinlqkfmr3066-57-05 14:49:00 Test Item Value Reference Range Interpretation Comments Glucose Fingerstick 334 mg/dL 70-115 CONCRETE PAVER Benton (test code = WGLUC) SvetneerajkN otify RN or MD OR MICRO Znqgeydw6438-33-36 16:15:00 Test Item Value Reference Range Interpretation Comments Gram Stain (test code 09/26/21 = GS) Gram Stain (test code Few Gram positive = GS1.1) cocci in pairs OR NESTOR Spec Culture Culture in progress (test code = ORMICCULT) Anaerobic Culture 09/28/21 No anaerobes (test code = ANC) isolated to date, continuing Anaerobic Culture 10/01/21 No anaerobes (test code = ANC3.1) isolated. OR NESTOR Spec Culture agents with the (test code = possible exception of ORMICCULT2.1) Ceftaroline. LEFT HANDGlucose Vbljcqvevpa3645-03-90 15:52:00 Test Item Value Reference Range Interpretation Comments Glucose Fingerstick 199 mg/dL 70-115 CONCRETE PAVER Benton (test code = WGLUC) Svetneerajk KEFWZROJFX9263-99-16 19:20:17 Test Item Value Reference Range Interpretation Comments APPEARANCE (test code = Clear Clear 8342082684) COLOR (test code = Mindy Yellow A 7368803125) PH (test code = 4.8-8.0 4160285807) SP GRAVITY (test code = 1.003-1.030 6175944406) GLU U QUAL (test code = 150 mg/dL Normal A 4395542246) BLOOD (test code = Negative Negative 4829653246) KETONES (test code = Negative Negative 6669199612) PROTEIN (test code = Negative Negative 2887-8) UROBILIN (test code = Normal Normal 4348883420) BILIRUBIN (test code = Negative Negative 7803278878) NITRITE (test code = Negative Negative 8991467253) LEUK BURTON (test code = Negative Negative 5015746565) RBC/HPF (test code = See_Comment [Autom ated message] 7866369167) The system [employer] generated this result transmit j luis reference range : 0 - 3 HPF. The refe rence range was not u sed to interpret th is result as normal/abnormal . WBC/HPF (test code = See_Comment [Autom ated message] 5131541391) The system [employer] generated this result transmit j luis reference range : 0 - 5 HPF. The refe rence range was not u sed to interpret th is result as normal/abnormal . BACTERIA (test code = Negative Negative 4792751260) MUCOUS (test code = Moderate Negative LPF A 8358681120) Lab Interpretation (test Abnormal code = 86343-8) [facility] 19:18:04 Test Item Value Reference Range Interpretation Comments MAGNESIUM (test code = 1515587351) 1.9 mg/dL 1.7-2.4 Lab Interpretation (test code = Normal 64092-8) [facility]. METABOLIC PANEL (17354)2020-11-16 19:17:44 Test Item Value Reference Range Interpretation Comments NA (test code = 138 mmol/L 135-145 4907386556) K (test code = 3.9 mmol/L 3.5-5.0 5594446904) CL (test code = 100 mmol/L 98-108 6489170048) CO2 TOTAL (test code = 28 mmol/L 23-31 3190686862) AGAP (test code = 2-16 6846311462) BUN (test code = 15 mg/dL 7-23 4712522473) GLUCOSE (test code = 215 mg/dL 70-110 H 6030715478) CREATININE (test code = 0.88 mg/dL 0.60-1.25 4510725382) TOTAL BILI (test code = 1.6 mg/dL 0.1-1.1 H 6957824833) CALCIUM (test code = 9.6 mg/dL 8.6-10.6 1015651035) T PROTEIN (test code = 7.4 g/dL 6.3-8.2 3498009518) ALBUMIN (test code = 4.6 g/dL 3.5-5.0 2218586389) ALK PHOS (test code = 90 U/L 34-122 8132361121) ALTv (test code = 15 U/L 5-50 1742-6) AST(SGOT) (test code = 17 U/L 13-40 6824311082) eGFR (test code = mL/min/1.73m2 9276468607) OSKAR (test code = OSKAR) Association of [...] tests). Lab Interpretation Abnormal (test code = 33911-9) [facility] 19:17:23 Test Item Value Reference Range Interpretation Comments LIPASE (test code = 2988816376) 87 U/L 0-220 Lab Interpretation (test code = Normal 91025-8) [facility] WITH VLAG3301-29-39 19:06:43 Test Item Value Reference Range Interpretation Comments WBC (test code = See_Comment [Automated 2890-2) message] The sy stem which generated this [...] RDW-SD (test code = 39.0 fL 38.5-51.6 22670-3) RDW-CV (test code = 13.9 % 12.1-15.4 788-0) PLT (test code = See_Comment [Automated 777-3) message] The sy stem which generated this result transmitted reference range : 150 - 328 10*3/ ?L. The reference r kristina was not used to interpret this result as normal/abnormal . MPV (test code = 9.4 fL 9.8-13.0 L 19356-4) NRBC/100 WBC (test See_Comment [Automat ed code = 7300139579) message] The system which generated this result transmitted reference range : 0.0 - 10.0 /100 WBCs. The refer ence range was not u sed to interpret th is result as normal/abnormal . NRBC x10^3 (test code <0.01 See_Comment [Auto mated = 0785853451) message] The s ystem which generated this result transmitted reference range : 10*3/?L. The reference range was not used to interpret this result as normal/abnormal . GRAN MAT (NEUT) % 79.9 % (test code = 770-8) IMM GRAN % (test code 0.60 % = 8903513933) LYMPH % (test code = 14.4 % 736-9) MONO % (test code = 3.9 % 5905-5) EOS % (test code = 0.6 % 713-8) BASO % (test code = 0.6 % 706-2) GRAN MAT x10^3(ANC) 7.25 10*3/uL 1.99-6.95 H (test code = 8084876109) IMM GRAN x10^3 (test 0.05 10*3/uL 0.00-0.06 code = 3977110787) LYMPH x10^3 (test code 1.30 10*3/uL 1.09-3.23 = 731-0) MONO x10^3 (test code 0.35 10*3/uL 0.36-1.02 L = 742-7) EOS x10^3 (test code = 0.05 10*3/uL 0.06-0.53 L 711-2) BASO x10^3 (test code 0.05 10*3/uL 0.01-0.09 = 704-7) Lab Interpretation Abnormal (test code = 47265-1) [facility] GLUCOSE (AUTOMATED)2020-11-16 18:27:21 Test Item Value Reference Range Interpretation Comments POCT GLU (test code = 1221918094) 218 mg/dL 70-110 H Lab Interpretation (test code = Abnormal 48549-1) [facility] GLUCOSE (AUTOMATED)2020-06-29 23:37:00 Test Item Value Reference Range Interpretation Comments POCT GLU (test code = 8289183059) 217 mg/dL 70-110 H Lab Interpretation (test code = Abnormal 15324-5) [facility] GLUCOSE (AUTOMATED)2020-06-29 18:58:00 Test Item Value Reference Range Interpretation Comments POCT GLU (test code = 3335881819) 214 mg/dL 70-110 H Lab Interpretation (test code = Abnormal 94048-9) [facility] GLUCOSE (AUTOMATED)2020-06-29 14:15:00 Test Item Value Reference Range Interpretation Comments POCT GLU (test code = 3905931707) 182 mg/dL 70-110 H Lab Interpretation (test code = Abnormal 22097-2) [facility] with Qljatxhezlhp7047-77-88 13:44:00 Test Item Value Reference Range Interpretation [...] (test code = 37.0 fL 38.5-51.6 L 62677-0) RDW-CV (test code = 12.2 % 12.1-15.4 788-0) PLT (test code = See_Comment L [Automated 777-3) message] The sy stem which generated this result transmitted reference range : 150 - 328 10*3/ ?L. The reference r kristina was not used to interpret this result as normal/abnormal . MPV (test code = 9.9 fL 9.8-13 60573-8) NRBC/100 WBC (test See_Comment [Automat ed code = 2172927953) message] The system which generated this result transmitted reference range : 0.0 - 10.0 /100 WBCs. The refer ence range was not u sed to interpret th is result as normal/abnormal . NRBC x10^3 (test code <0.01 See_Comment [Auto mated = 7269557711) message] The s ystem which generated this result transmitted reference range : 10*3/?L. The reference range was not used to interpret this result as normal/abnormal . GRAN MAT (NEUT) % 61.0 % (test code = 770-8) IMM GRAN % (test code 0.30 % = 5761535501) LYMPH % (test code = 29.5 % 736-9) MONO % (test code = 5.9 % 5905-5) EOS % (test code = 2.4 % 713-8) BASO % (test code = 0.9 % 706-2) GRAN MAT x10^3(ANC) 2.07 10*3/uL 1.99-6.95 (test code = 0877503100) IMM GRAN x10^3 (test <0.03 0-0.06 code = 6254416684) LYMPH x10^3 (test code 1.00 10*3/uL 1.09-3.23 L = 731-0) MONO x10^3 (test code 0.20 10*3/uL 0.36-1.02 L = 742-7) EOS x10^3 (test code = 0.08 10*3/uL 0.06-0.53 711-2) BASO x10^3 (test code 0.03 10*3/uL 0.01-0.09 = 704-7) Lab Interpretation Abnormal (test code = 53127-4) [facility]2020-12-19 13:22:00 Test Item Value Reference Range Interpretation Comments TRIG (test code = 8440343688) 468 mg/dL 30-170 H Lab Interpretation (test code = Abnormal 42397-1) [facility] (NA, K, CL, CO2, GLUCOSE, BUN, CREATININE, CA)2020-06-29 13:12:00 Test Item Value Reference Range Interpretation Comments NA (test code = 139 mmol/L 135-145 8187376463) K (test code = 3.6 mmol/L 3.5-5 4431562577) CL (test code = 104 mmol/L 98-108 4217446494) CO2 TOTAL (test code = 25 mmol/L 23-31 5571470747) AGAP (test code = 2-16 6488339852) BUN (test code = 4 mg/dL 7-23 L 9117578832) GLUCOSE (test code = 163 mg/dL 70-110 H 1747159806) CREATININE (test code = 0.74 mg/dL 0.6-1.25 3719080102) CALCIUM (test code = 9.4 mg/dL 8.6-10.6 4712328581) eGFR Calculation mL/min/1.73m2 (Non-) (test code = 1817172869) eGFR Calculation mL/min/1.73m2 () (test code = 1706256064) OSKAR (test code = OSKAR) Association of [...] tests). Lab Interpretation Abnormal (test code = 98938-4) [facility] - DRUG SCREEN HIFIGG6497-28-05 03:44:00 Test Item Value Reference Range Interpretation Comments BENZO U (test code = Presumptive Negative A 3458419672) Positive UADREY U (test code = Negative Negative 5464595313) AMPHET (test code = Negative Negative 4217925637) THC (test code = Presumptive Negative A Confirmatio n of 4509337085) Positive Presumptive Positive THC result requires physician order . METHADONE (test code Negative Negative = 1470272885) Meth U (test code = Negative Negative 7099325653) OPIATES (test code = Presumptive Negative A 2130309467) Positive Cocaine Metabolite Negative Negative (test code = 8854808553) PROPOXY (test code = Negative Negative 7409517933) Tric U (test code = Presumptive Negative A Confirma tion of 6807159675) Positive Presumptive Positive TCA result requires physician order and this will b e sent to referen ce lab. PCP (test code = Negative Negative 6886468252) OXYCOD (test code = Negative Negative 2214950016) OSKAR (test code = Urine Drug Cutoff [...] testing). Lab Interpretation Abnormal (test code = 70713-0) [facility]2020-12-19 01:23:00 Test Item Value Reference Range Interpretation Comments ALCOHOL (test code = <10 mg/dL 2356643281) OSKAR (test code = OSKAR) <10 Zwzckbam68-796 Toxic>100 Depression of CERAMIC DESIGNER>400 Fatalities Reported [facility] GLUCOSE (AUTOMATED)2020-06-28 23:30:00 Test Item Value Reference Range Interpretation Comments POCT GLU (test code = 5582661299) 234 mg/dL 70-110 H Lab Interpretation (test code = Abnormal 77226-8) [facility] GLUCOSE (AUTOMATED)2020-06-28 19:09:00 Test Item Value Reference Range Interpretation Comments POCT GLU (test code = 0878090369) 195 mg/dL 70-110 H Lab Interpretation (test code = Abnormal 11760-8) [facility] GLUCOSE (AUTOMATED)2020-06-28 18:16:00 Test Item Value Reference Range Interpretation Comments POCT GLU (test code = 9230957495) 113 mg/dL 70-110 H Lab Interpretation (test code = Abnormal 13519-3) [facility] 15[facility]54[facility]00 Test Item Value Reference Range Interpretation Comments MAGNESIUM (test code = 8249279933) 1.7 mg/dL 1.7-2.4 Lab Interpretation (test code = Normal 53320-1) [facility] GLUCOSE (AUTOMATED)2020-06-28 14:51:00 Test Item Value Reference Range Interpretation Comments POCT GLU (test code = 0423153701) 94 mg/dL 70-110 Lab Interpretation (test code = Normal 03837-9) [facility] with Osauknkjdtzp6156-43-03 14:08:00 Test Item Value Reference Range Interpretation [...] (test code = 36.2 fL 38.5-51.6 L 41281-6) RDW-CV (test code = 11.9 % 12.1-15.4 L 788-0) PLT (test code = See_Comment L [Automated 777-3) message] The sy stem which generated this result transmitted reference range : 150 - 328 10*3/ ?L. The reference r kristina was not used to interpret this result as normal/abnormal . MPV (test code = 10.0 fL 9.8-13 20527-0) NRBC/100 WBC (test See_Comment [Automat ed code = 7725430124) message] The system which generated this result transmitted reference range : 0.0 - 10.0 /100 WBCs. The refer ence range was not u sed to interpret th is result as normal/abnormal . NRBC x10^3 (test code <0.01 See_Comment [Auto mated = 2550332605) message] The s ystem which generated this result transmitted reference range : 10*3/?L. The reference range was not used to interpret this result as normal/abnormal . GRAN MAT (NEUT) % 59.7 % (test code = 770-8) IMM GRAN % (test code 0.30 % = 6565900702) LYMPH % (test code = 33.3 % 736-9) MONO % (test code = 4.8 % 5905-5) EOS % (test code = 1.3 % 713-8) BASO % (test code = 0.6 % 706-2) GRAN MAT x10^3(ANC) 1.86 10*3/uL 1.99-6.95 L (test code = 2560584994) IMM GRAN x10^3 (test <0.03 0-0.06 code = 2784782703) LYMPH x10^3 (test code 1.04 10*3/uL 1.09-3.23 L = 731-0) MONO x10^3 (test code 0.15 10*3/uL 0.36-1.02 L = 742-7) EOS x10^3 (test code = 0.04 10*3/uL 0.06-0.53 L 711-2) BASO x10^3 (test code <0.03 0.01-0.09 = 704-7) Lab Interpretation Abnormal (test code = 07304-1) [facility] Metabolic Panel (NA, K, CL, CO2, GLUCOSE, BUN, CREATININE, CA)2020-06-28 13:02:00 Test Item Value Reference Range Interpretation Comments NA (test code = 140 mmol/L 135-145 2581549875) K (test code = 3.0 mmol/L 3.5-5 L 8395151916) CL (test code = 106 mmol/L 98-108 7881845832) CO2 TOTAL (test code = 25 mmol/L 23-31 7715720149) AGAP (test code = 2-16 6414032808) BUN (test code = <2 7-23 L 9297550521) GLUCOSE (test code = 107 mg/dL 70-110 4686165550) CREATININE (test code = 0.59 mg/dL 0.6-1.25 L 8006602959) CALCIUM (test code = 8.9 mg/dL 8.6-10.6 1707110367) eGFR Calculation mL/min/1.73m2 (Non-) (test code = 1099693363) eGFR Calculation mL/min/1.73m2 () (test code = 8064913313) OSKAR (test code = OSKAR) Association of [...] tests). Lab Interpretation Abnormal (test code = 00030-8) [facility]2020-12-18 13:02:00 Test Item Value Reference Range Interpretation Comments TRIG (test code = 4913216387) 519 mg/dL 30-170 H Lab Interpretation (test code = Abnormal 76244-4) [facility]2020-12-18 12:45:00 Test Item Value Reference Range Interpretation Comments LIPASE (test code = 9200787249) 27 U/L 0-220 Lab Interpretation (test code = Normal 29255-9) [facility]2020-06-28 11:51:00 Test Item Value Reference Range Interpretation Comments POCT GLU (test code = 4340570193) 111 mg/dL 70-110 H Lab Interpretation (test code = Abnormal 68063-3) [facility] COVID CAPGSGOUJVACPX4833-09-68 11:31:00COVID DMT InterpretationInterpretation/Recommendations: Molecular NAAT Tests for [...] illness onset will indicate whether the patient hasproduced antibodies to the virus. At this time, it is not known if the production of antibodies - specifically IgG antibodies - indicates whether the patient is immune to future infections with the SARS-CoV-2 virus. ? ? Interpretation Result Comments:These interpretation comments are based upon all COVID-19 testing the patient has had at [facility], including molecular NAAT testing (more commonly known as PCR testing and Rapid ID Now testing) and antibody testing. It does not take into account any testing that a patient has had outsid e of the [facility] medical record. [facility] LABORATORY SERVICESCOVID PlglmalIJVH-QpQ-8 Rapid ID NOW (no units) ? ? Date ? Value ? 06/25/2020 ? Not Detected ? [facility] LABORATORY SERVICES [facility] GLUCOSE (AUTOMATED)2020-06-28 10:16:00 Test Item Value Reference Range Interpretation Comments POCT GLU (test code = 5659224763) 109 mg/dL 70-110 Lab Interpretation (test code = Normal 08894-3) [facility] GLUCOSE (AUTOMATED)2020-06-28 09:08:00 Test Item Value Reference Range Interpretation Comments POCT GLU (test code = 0494712632) 152 mg/dL 70-110 H Lab Interpretation (test code = Abnormal 49399-7) [facility] GLUCOSE (AUTOMATED)2020-06-28 06:20:00 Test Item Value Reference Range Interpretation Comments POCT GLU (test code = 7393273987) 84 mg/dL 70-110 Lab Interpretation (test code = Normal 94930-6) [facility] GLUCOSE (AUTOMATED)2020-06-28 04:47:00 Test Item Value Reference Range Interpretation Comments POCT GLU (test code = 2411008133) 95 mg/dL 70-110 Lab Interpretation (test code = Normal 11108-4) [facility] GLUCOSE (AUTOMATED)2020-06-28 03:43:00 Test Item Value Reference Range Interpretation Comments POCT GLU (test code = 9480657541) 123 mg/dL 70-110 H Lab Interpretation (test code = Abnormal 44559-4) [facility]2020-06-28 02:47:00 Test Item Value Reference Range Interpretation Comments POCT GLU (test code = 5546047510) 121 mg/dL 70-110 H Lab Interpretation (test code = Abnormal 28008-7) [facility]2020-06-28 02:17:00 Test Item Value Reference Range Interpretation Comments POCT GLU (test code = 3735152528) 94 mg/dL 70-110 Lab Interpretation (test code = Normal 70925-5) [facility]2020-12-18 01:21:00 Test Item Value Reference Range Interpretation Comments TRIG (test code = 3107581445) 647 mg/dL 30-170 H Lab Interpretation (test code = Abnormal 01174-3) [facility] GLUCOSE (AUTOMATED)2020-06-27 23:29:00 Test Item Value Reference Range Interpretation Comments POCT GLU (test code = 8330722369) 87 mg/dL 70-110 Lab Interpretation (test code = Normal 03709-7) [facility] 21:36:00 Test Item Value Reference Range Interpretation Comments POCT GLU (test code = 7973464387) 85 mg/dL 70-110 Lab Interpretation (test code = Normal 56824-1) [facility] 19:55:00 Test Item Value Reference Range Interpretation Comments POCT GLU (test code = 3275270071) 91 mg/dL 70-110 Lab Interpretation (test code = Normal 28535-3) [facility]27 19:01:00 Test Item Value Reference Range Interpretation Comments POCT GLU (test code = 1733788697) 125 mg/dL 70-110 H Lab Interpretation (test code = Abnormal 68699-3) [facility]2020-06-27 17:46:00 Test Item Value Reference Range Interpretation Comments POCT GLU (test code = 7473134381) 122 mg/dL 70-110 H Lab Interpretation (test code = Abnormal 89926-5) [facility]2020-[facility]-27 16:56:00 Test Item Value Reference Range Interpretation Comments POCT GLU (test code = 2107374796) 98 mg/dL 70-110 Lab Interpretation (test code = Normal 54916-6) [facility] GLUCOSE (AUTOMATED)2020-06-27 14:47:00 Test Item Value Reference Range Interpretation Comments POCT GLU (test code = 8845339235) 209 mg/dL 70-110 H Lab Interpretation (test code = Abnormal 05360-1) [facility] GLUCOSE (AUTOMATED)2020-06-27 14:47:00 Test Item Value Reference Range Interpretation Comments POCT GLU (test code = 0330351609) 181 mg/dL 70-110 H Lab Interpretation (test code = Abnormal 28455-9) [facility] with Yblcmvddfjzc8564-43-89 12:55:00 Test Item Value Reference Range Interpretation [...] (test code = 35.6 fL 38.5-51.6 L 98553-4) RDW-CV (test code = 11.8 % 12.1-15.4 L 788-0) PLT (test code = See_Comment L [Automated 777-3) message] The sy stem which generated this result transmitted reference range : 150 - 328 10*3/ ?L. The reference r kristina was not used to interpret this result as normal/abnormal . MPV (test code = 9.9 fL 9.8-13 09240-4) NRBC/100 WBC (test See_Comment [Automat ed code = 1395031667) message] The system which generated this result transmitted reference range : 0.0 - 10.0 /100 WBCs. The refer ence range was not u sed to interpret th is result as normal/abnormal . NRBC x10^3 (test code <0.01 See_Comment [Auto mated = 6970123773) message] The s ystem which generated this result transmitted reference range : 10*3/?L. The reference range was not used to interpret this result as normal/abnormal . GRAN MAT (NEUT) % 59.3 % (test code = 770-8) IMM GRAN % (test code 0.30 % = 0676581074) LYMPH % (test code = 33.7 % 736-9) MONO % (test code = 4.7 % 5905-5) EOS % (test code = 1.3 % 713-8) BASO % (test code = 0.7 % 706-2) GRAN MAT x10^3(ANC) 1.78 10*3/uL 1.99-6.95 L (test code = 2339993711) IMM GRAN x10^3 (test <0.03 0-0.06 code = 8107785662) LYMPH x10^3 (test code 1.01 10*3/uL 1.09-3.23 L = 731-0) MONO x10^3 (test code 0.14 10*3/uL 0.36-1.02 L = 742-7) EOS x10^3 (test code = 0.04 10*3/uL 0.06-0.53 L 711-2) BASO x10^3 (test code <0.03 0.01-0.09 = 704-7) Lab Interpretation Abnormal (test code = 80123-2) [facility] GLUCOSE (AUTOMATED)2020-06-27 12:26:00 Test Item Value Reference Range Interpretation Comments POCT GLU (test code = 1069954798) 238 mg/dL 70-110 H Lab Interpretation (test code = Abnormal 07102-9) [facility] GLUCOSE (AUTOMATED)2020-06-27 12:20:00 Test Item Value Reference Range Interpretation Comments POCT GLU (test code = 1709138569) 216 mg/dL 70-110 H Lab Interpretation (test code = Abnormal 53144-5) [facility]2020-12-17 12:03:00 Test Item Value Reference Range Interpretation Comments TRIG (test code = 3129178114) 810 mg/dL 30-170 H Lab Interpretation (test code = Abnormal 65990-7) [facility] (NA, K, CL, CO2, GLUCOSE, BUN, CREATININE, CA)2020-06-27 11:56:00 Test Item Value Reference Range Interpretation Comments NA (test code = 135 mmol/L 135-145 1867171863) K (test code = 3.6 mmol/L 3.5-5 5793575651) CL (test code = 104 mmol/L 98-108 6529317932) CO2 TOTAL (test code = 23 mmol/L 23-31 3099700739) AGAP (test code = 2-16 9741332746) BUN (test code = 5 mg/dL 7-23 L 0244837445) GLUCOSE (test code = 191 mg/dL 70-110 H 7502511875) CREATININE (test code = 0.56 mg/dL 0.6-1.25 L 9065935343) CALCIUM (test code = 8.9 mg/dL 8.6-10.6 6892635952) eGFR Calculation mL/min/1.73m2 (Non-) (test code = 1038103389) eGFR Calculation mL/min/1.73m2 () (test code = 7286287772) OSKAR (test code = OSKAR) Association of [...] tests). Lab Interpretation Abnormal (test code = 07236-9) [facility] 11:55:00 Test Item Value Reference Range Interpretation Comments LIPASE (test code = 2101486731) 40 U/L 0-220 Lab Interpretation (test code = Normal 03692-6) [facility] GLUCOSE (AUTOMATED)2020-06-27 09:09:00 Test Item Value Reference Range Interpretation Comments POCT GLU (test code = 8278667851) 185 mg/dL 70-110 H Lab Interpretation (test code = Abnormal 01737-7) [facility] GLUCOSE (AUTOMATED)2020-06-27 08:09:00 Test Item Value Reference Range Interpretation Comments POCT GLU (test code = 0024326138) 124 mg/dL 70-110 H Lab Interpretation (test code = Abnormal 33369-0) [facility] GLUCOSE (AUTOMATED)2020-06-27 07:11:00 Test Item Value Reference Range Interpretation Comments POCT GLU (test code = 2298461810) 104 mg/dL 70-110 Lab Interpretation (test code = Normal 75210-6) [facility] GLUCOSE (AUTOMATED)2020-06-27 06:04:00 Test Item Value Reference Range Interpretation Comments POCT GLU (test code = 2411807551) 97 mg/dL 70-110 Lab Interpretation (test code = Normal 94029-5) [facility] GLUCOSE (AUTOMATED)2020-06-27 04:54:00 Test Item Value Reference Range Interpretation Comments POCT GLU (test code = 3618357886) 54 mg/dL 70-110 L Lab Interpretation (test code = Abnormal 21165-1) [facility]2020[facility]06-27 04:04:00 Test Item Value Reference Range Interpretation Comments POCT GLU (test code = 9918029249) 88 mg/dL 70-110 Lab Interpretation (test code = Normal 22506-0) [facility] 03[facility]32:00 Test Item Value Reference Range Interpretation Comments POCT GLU (test code = 1858644470) 104 mg/dL 70-110 Lab Interpretation (test code = Normal 42009-0) [facility] 03:05:00 Test Item Value Reference Range Interpretation Comments POCT GLU (test code = 5088366195) 68 mg/dL 70-110 L Lab Interpretation (test code = Abnormal 76066-1) [facility] 02:05:00 Test Item Value Reference Range Interpretation Comments POCT GLU (test code = 2711741615) 113 mg/dL 70-110 H Lab Interpretation (test code = Abnormal 09170-5) [facility] 01:21:00 Test Item Value Reference Range Interpretation Comments POCT GLU (test code = 4253284308) 122 mg/dL 70-110 H Lab Interpretation (test code = Abnormal 65084-7) [facility] 00:09:00 Test Item Value Reference Range Interpretation Comments POCT GLU (test code = 7959828022) 125 mg/dL 70-110 H Lab Interpretation (test code = Abnormal 17450-9) [facility]2020-12-16 23:47:00 Test Item Value Reference Range Interpretation Comments TRIG (test code = 2200105651) 1086 mg/dL 30-170 H Lab Interpretation (test code = Abnormal 28654-3) [facility] GLUCOSE (AUTOMATED)2020-06-26 23:12:00 Test Item Value Reference Range Interpretation Comments POCT GLU (test code = 2100479881) 175 mg/dL 70-110 H Lab Interpretation (test code = Abnormal 07311-1) [facility] GLUCOSE (AUTOMATED)2020-06-26 23:12:00 Test Item Value Reference Range Interpretation Comments POCT GLU (test code = 5982177584) 81 mg/dL 70-110 Lab Interpretation (test code = Normal 59557-8) [facility] GLUCOSE (AUTOMATED)2020-06-26 22:50:00 Test Item Value Reference Range Interpretation Comments POCT GLU (test code = 9532842140) 88 mg/dL 70-110 Lab Interpretation (test code = Normal 92346-3) [facility] GLUCOSE (AUTOMATED)2020-06-26 22:26:00 Test Item Value Reference Range Interpretation Comments POCT GLU (test code = 5869417680) 91 mg/dL 70-110 Lab Interpretation (test code = Normal 10600-8) [facility] GLUCOSE (AUTOMATED)2020-06-26 17:06:00 Test Item Value Reference Range Interpretation Comments POCT GLU (test code = 5412688194) 227 mg/dL 70-110 H Lab Interpretation (test code = Abnormal 82114-8) [facility]-DENS[facility] LIPOPROTEIN, [id number] 16:31:00 Test Item Value Reference Range Interpretation Comments dLDL Chol (test code = <30 See_Comment [Aut omated message] 63121-0) The system [employer] generated this result transmitted ref erence range: <130 mg/ dL. The reference range was not used to int erpret this result as normal/abnormal . Lab Interpretation (test Normal code = 19052-8) [facility] ClubLIPID PANEL (27217)(TOTAL CHOLESTEROL, TRIGLYCERIDES, HDL)2020-06-26 13:16:00 Test Item Value Reference Range Interpretation Comments CHOL (test code = 217 mg/dL 120-200 H 1854106114) HDL (test code = 13 mg/dL >40 L 3380395566) HDLC RATIO (test code = See_Comment H [Au tomated message] 8731269091) The system [employer] generated this result transmit j luis reference range : <=5.0. The refe rence range was not u sed to interpret th is result as normal/abnormal . TRIG (test code = 1337 mg/dL 30-170 H 9847934422) LDL CHOL (test code = Unable to calculate 21549-2) LDL due to elev ated triglyceride le abena greater than 40 0 mg/dL. VLDL (test code = Unable to calculate 6567238344) VLDL due to yohana vated triglyceride le abena greater than 71 0 mg/dL. Lab Interpretation Abnormal (test code = 38689-3) [facility]2020-12-16 13:03:00 Test Item Value Reference Range Interpretation Comments LIPASE (test code = 6422925166) 60 U/L 0-220 Lab Interpretation (test code = Normal 84675-2) [facility] ClubGLYCOSYLATED HEMOGLOBIN (A1C)2020-06-26 12:46:00 Test Item Value Reference Range Interpretation Comments HGB A1C (test code = 9.2 % 4-6 H 4548-4) OSKAR (test code = OSKAR) %A1C (NGSP) Interpretation (ADA)4.8-5.6 ? ? Normal or (Non-Diabetic Range)5.7-6.4 ? ? Increased Risk (Pre-Diabetic)>6.5 ?Diabetes Indicated Lab Interpretation Abnormal (test code = 60284-5) [facility]SE (AUTOMATED)2020-06-26 11:24:00 Test Item Value Reference Range Interpretation Comments POCT GLU (test code = 7499967171) 209 mg/dL 70-110 H Lab Interpretation (test code = Abnormal 18530-1) [facility] ABDOMEN PELVIS W [id number] 05:55:56Impression: 1. Peripancreatic inflammation, likely representing acute [...] demonstrated in the upper abdomen. RL: 2824AFC: 51591 End of Report Exam: CT Abdomen and [...] Kidneys are symmetric in size, enhancement, and contrastexcretion. Thereis no hydronephrosis or hydroureter. There is no free air or free fluid. There is noabdominal adenopathy. Stomach is unremarkable. There is duodenal [...] is unremarkable. Prostate and seminal vesicles are notenlarged. There is trace pelvic [...] enlarged. 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 Multiple serpiginous enhancing structures inthe upper abdomen likely represent varices. The adrenal glands are normal.Kidneys are symmetric in size, enhancement, andcontrast excretion. Thereis no hydronephrosis or hydroureter.There is [...] pelvic free fluid. There is no pelvic adenopathy.Osseous structures are unremarkable. IMPRESSIONImpression: 1. Peripancreatic inflammation, likely representing acute pancreatitis. 1.7cm area of hypoattenuation in the pancreatic uncinate process may representfocal necrosis or developing pseudocyst.2. 4.8 cm hypodense structure in the pancreatic tail may represent apseudocyst. Cystic pancreatic neoplasm is not excluded. Given size greaterthan 3 cm, cyst aspiration is suggested, if clinically indicated.Otherwise, follow-up MRI of the pancreas and MRCP is s uggested every 6months for 2 years.3. Duodenal mucosal fold thickening, which may represent reactiveduodenitis.4. Mild diffuse colonic wall thickening, consistent with colitis.5. Moderate colonic diverticulosis without evidence of diverticulitis.6. No free air. Trace pelvic free fluid.7. 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 Resultsplenomegaly with varices demonstrated in the upper abdomen. RL: 2824AFC: 31542Zqm of Report [facility] NOW RAPID TESTING)2020-06-26 03:44:00 Test Item Value Reference Range Interpretation Comments SARS-CoV-2 Rapid ID NOW Not Detected Not Detected (test code = 53822-0) OSKAR (test code = OSKAR) ID NOW COVID-19 Assay is an isothermal nucleic acid amplification test intended for the qualitative detection of nucleic acid from SARS-CoV-2 viral RNA in nasopharyngeal ([employer]) specimens. It is used under Emergency Use [...] indicated. Lab Interpretation Normal (test code = 01482-5) [facility]. METABOLIC PANEL (84681)2020-06-26 03:17:00 Test Item Value Reference Range Interpretation Comments NA (test code = 136 mmol/L 135-145 9276499636) K (test code = 4.3 mmol/L 3.5-5 4445717999) CL (test code = 97 mmol/L 98-108 L 3501769125) CO2 TOTAL (test code = 31 mmol/L 23-31 3107502424) AGAP (test code = 2-16 5040781740) BUN (test code = 7 mg/dL 7-23 5458358845) GLUCOSE (test code = 220 mg/dL 70-110 H 4281354835) CREATININE (test code = 0.68 mg/dL 0.6-1.25 0007180314) TOTAL BILI (test code = 1.6 mg/dL 0.1-1.1 H 4925725864) CALCIUM (test code = 9.4 mg/dL 8.6-10.6 8428173282) T PROTEIN (test code = 7.6 g/dL 6.3-8.2 0489293827) ALBUMIN (test code = 4.4 g/dL 3.5-5 9551523863) ALK PHOS (test code = 103 U/L 34-122 6100721227) ALTv (test code = 113 U/L 5-50 H 1742-6) AST(SGOT) (test code = 87 U/L 13-40 H 3616166518) eGFR Calculation mL/min/1.73m2 (Non-) (test code = 1402796125) eGFR Calculation mL/min/1.73m2 () (test code = 7932897598) OSKAR (test code = OSKAR) Association of [...] tests). Lab Interpretation Abnormal (test code = 40812-3) [facility]2020-12-16 03:16:00 Test Item Value Reference Range Interpretation Comments LIPASE (test code = 4144747851) 57 U/L 0-220 Lab Interpretation (test code = Normal 77718-4) [facility] WITH [id number] 03:00:00 Test Item Value Reference Range Interpretation [...] (test code = 35.3 fL 38.5-51.6 L 01888-8) RDW-CV (test code = 11.9 % 12.1-15.4 L 788-0) PLT (test code = See_Comment L [Automated 777-3) message] The sy stem which generated this result transmitted reference range : 150 - 328 10*3/ ?L. The reference r kristina was not used to interpret this result as normal/abnormal . MPV (test code = 9.3 fL 9.8-13 L 78785-4) NRBC/100 WBC (test See_Comment [Automat ed code = 8410836318) message] The system which generated this result transmitted reference range : 0.0 - 10.0 /100 WBCs. The refer ence range was not u sed to interpret th is result as normal/abnormal . NRBC x10^3 (test code <0.01 See_Comment [Auto mated = 9870170626) message] The s ystem which generated this result transmitted reference range : 10*3/?L. The reference range was not used to interpret this result as normal/abnormal . GRAN MAT (NEUT) % 74.6 % (test code = 770-8) IMM GRAN % (test code 0.30 % = 3946469605) LYMPH % (test code = 18.7 % 736-9) MONO % (test code = 4.8 % 5905-5) EOS % (test code = 1.1 % 713-8) BASO % (test code = 0.5 % 706-2) GRAN MAT x10^3(ANC) 4.71 10*3/uL 1.99-6.95 (test code = 5556967802) IMM GRAN x10^3 (test <0.03 0-0.06 code = 9096141583) LYMPH x10^3 (test code 1.18 10*3/uL 1.09-3.23 = 731-0) MONO x10^3 (test code 0.30 10*3/uL 0.36-1.02 L = 742-7) EOS x10^3 (test code = 0.07 10*3/uL 0.06-0.53 711-2) BASO x10^3 (test code 0.03 10*3/uL 0.01-0.09 = 704-7) Lab Interpretation Abnormal (test code = 68650-9) [facility]2020-06-26 02:46:00 Test Item Value Reference Range Interpretation Comments POCT GLU (test code = 1084002519) 248 mg/dL 70-110 H Lab Interpretation (test code = Abnormal 85770-8) [facility]
[2022-09-10 17:18] LABS: Absolute Lymphocytes (CBC) 1.5 K/uL (0.7-4.9); Hematocrit 46.1 % (39.6-49.0); Lymphocytes % 31.9 % (15.3-44.8); MCV 84.5 fL (80-100); RBC Red Blood Cell Count 5.46 M/uL (4.33-5.43)
[2022-09-10] MEDS ORDERED: NA CHLORIDE 0.9% 1,000 ML ONE (17:27)
[2022-09-10] MEDS ORDERED: MORPHINE 4 MG/ML SYR ONE (17:27)
[2022-09-10] MEDS ORDERED: ONDANSETRON 4 MG/2 ML VIAL ONE (17:27)
[2022-09-10] MEDS ORDERED: FAMOTIDINE 20 MG/2 ML VIAL IV ONE (17:27)
[2022-09-10 17:48] LABS: ALT/SGPT 29 U/L (16-61); Albumin 3.6 g/dL (3.4-5.0); Alkaline Phosphatase 55 U/L (45-117); BUN Blood Urea Nitrogen 9 mg/dL (7-18); Bicarbonate 24 mmol/L (21-32); Bilirubin Total 0.6 mg/dL (0.2-1.0); Glomerular Filtration Rate 104 ml/min (=/>90); Glucose Level 78 mg/dL (74-106); HDL Cholesterol 20 mg/dL (40-60); Lipase 234 U/L (13-75); Sodium Level 141 mmol/L (136-145)
[2022-09-10 17:49] LABS: AST/SGOT 15 U/L (15-37)
[2022-09-10 18:00] LABS: LDL, Direct 34 mg/dL (100-129)
--- NOTE | 2022-09-10 18:42 | RAD REPORT ---
EXAM DESCRIPTION: CT - Abdomen Pelvis W Contrast - 09/10/2022 6:20 pm CLINICAL HISTORY: ABD PAIN. Nausea and vomiting and diarrhea COMPARISON: Abdomen Pelvis W Contrast dated 01/07/2022; Abdomen Pelvis W Contrast dated 0; Abdomen Pelvis W Contrast dated 01/09/2020; Abdomen Pelvis W Contrast dated 05/29/2018 TECHNIQUE: Thin cut axial CT imaging of the abdomen and pelvis was performed following intravenous a dministration of 95 mL Isovue 300. Multiplanar reformats were generated and reviewed. All CT scans are performed using dose optimization technique as appropriate and may include automated exposure control or mA/KV adjustment according to patient size. FINDINGS: No suspicious findings in the lung bases. The liver, and spleen show no suspicious findings. No acute inflammatory changes of the pancreas. Sta ble 4.1 centimeter pseudocyst at the pancreatic tail, with linear wall calcification and thin septati on anteriorly. Status post cholecystectomy. No evidence of intra or extrahepatic biliary ductal dilat ion. 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 Symmetric renal function is seen with no hydronephrosis or suspicious renal mass. Mildly prominent caliber of proximal jejunal loops in the left upper quadrant. This is nonspecific, b ut could relate to early ileus. No bowel wall thickening. Colonic diverticulosis. No free air, free f luid or inflammatory stranding. No hernia, mass or bulky lymphadenopathy. The urinary bladder is with out significant finding. No suspicious bony findings. IMPRESSION: Nonspecific mildly prominent proximal jejunal loop caliber. This could relate to early i leus in the appropriate clinical setting. No other acute abnormalities in the abdomen and pelvis. Stable incidental findings including left gastrosplenic varicosities, and the pancreatic tail pseudoc yst.
--- NOTE | 2022-09-10 19:24 | ER ---
[facility]'s Notes [facility] Name: Alex Auguste Age: 42 yrs Sex: Male : 1980 Arrival Date: 09/10/2022 Time: 16:29 Bed DIS4 Private MD: Diagnosis: Enteritis Presentation: 09/10 17:12 Acuity: [place] 3 iw 17:13 Chief complaint: Patient states: upper abd pain, n/v/d, since this morning. iw 17:14 Coronavirus screen: At this time, the client does not indicate any symptoms associated iw with coronavirus-19. Ebola Screen: Patient negative for fever greater than or equal to 101.5 degrees Fahrenheit, and additional compatible Ebola Virus Disease symptoms Patient denies exposure to infectious person. Patient denies travel to an Ebola-affected area in the 21 days before illness onset. No symptoms or risks identified at this time. Initial Sepsis Screen: Does the patient meet any 2 criteria? No. Patient's initial sepsis screen is negative. Does the patient have a suspected source of infection? No. Patient's initial sepsis screen is negative. Risk Assessment: Do you want to hurt yourself or someone else? Patient reports no desire to harm self or others. Onset of symptoms was September 10, 2022. 17:14 Method Of Arrival: Ambulatory iw Historical: - Allergies: 17:16 No Known Allergies; iw - PMHx: 17:15 Chronic Pancreatitis; Diabetes - IDDM; GERD; High Triglycerides; Angina pectoris; iw Screenin:20 [facility] ED Fall Risk Assessment (Adult) Score/Fall Risk Level 0 - 2 = Low Risk. Abuse iw screen: Denies threats or abuse. Denies injuries from another. Nutritional screening: No deficits noted. Tuberculosis screening: No symptoms or risk factors identified. Assessment: 17:19 General: Appears in no apparent distress. Behavior is calm, cooperative. Pain: iw Complains of pain in abdomen. Neuro: Level of Consciousness is awake, alert, obeys commands, Oriented to person, place, time, situation, Moves all extremities. Full function. GI: Reports upper abdominal pain. Derm: Skin is intact, is healthy with good turgor. Vital Signs: 17:15 BP 127 / 85; Pulse 87; Resp 16; Temp 98.1; Pulse Ox 100% on R/A; Weight 86.18 kg; iw Height 5 ft. 10 in. (177.80 cm); Pain 10/10; 17:15 Body Mass Index 27.26 (86.18 kg, 177.80 cm) iw ED Course: 16:29 Patient arrived in ED. mr 16:44 La Arciniega FNP-C is [facility]. kb 16:44 Venkat Lyon MD is Attending Physician. kb 17:12 Mattie Jacobo, RN is Primary Nurse. iw 17:12 Triage completed. iw 17:15 Arm band placed on. iw 17:19 Inserted saline lock: 20 gauge in left antecubital area, using aseptic technique. iw 18:22 Abdomen In Process Unspecified. EDMS 19:37 No provider procedures requiring assistance completed. IV discontinued, intact, iw bleeding controlled, No redness/swelling at site. Pressure dressing applied. Administered Medications: 17:31 Drug: NS 0.9% 1000 ml Route: IV; Rate: 1 bolus; Site: left antecubital; iw 18:45 Follow up: IV Status: Completed infusion iw 17:32 Drug: Pepcid (famotidine) 20 mg Route: IVP; Site: left antecubital; iw 18:00 Follow up: Response: No adverse reaction iw 17:32 Drug: Zofran (Ondansetron) 4 mg Route: IVP; Site: left antecubital; iw 18:50 Follow up: Response: No adverse reaction; Nausea is decreased iw 17:32 Drug: morphine 4 mg Route: IVP; Infused Over: 4 mins; Site: left antecubital; iw 18:54 Follow up: Response: No adverse reaction; Pain is decreased iw Medication: 17:20 VIS not applicable for this client. iw Point of Care Testing: Blood Glucose: 18:42 Blood Glucose: 78 mg/dL; iw Ranges: Outcome: 19:23 Discharge ordered by MD. kb 19:37 Discharged to home ambulatory, with family. iw 19:37 Condition: good 19:37 Discharge instructions given to patient, family, Instructed on discharge instructions, follow up and referral plans. medication usage, Demonstrated understanding of instructions, follow-up care, medications, Prescriptions given X 2. 19:37 Patient left the ED. iw Signatures: Dispatcher [employer] EDMS La Arciniega FNP-C FNP-Rosalee Cruz mr Mattie Jacobo, RN RN iw
--- NOTE | 2022-09-10 19:24 | EDPHYS ---
Physician Documentation [facility] Name: Alex Auguste Age: 42 yrs Sex: Male : 1980 Arrival Date: 09/10/2022 Time: 16:29 Bed DIS4 Private MD: ED Physician Venkat Lyon HPI: 09/10 18:25 This 42 yrs old Male presents to ER via Ambulatory with complaints of Abdominal Pain. kb 18:25 The patient presents with abdominal pain in the upper abdomen. Onset: The kb symptoms/episode began/occurred this morning. The symptoms do not radiate. Associated signs and symptoms: Pertinent positives: nausea and vomiting, Pertinent negatives: fever. The symptoms are described as constant. Modifying factors: The symptoms are alleviated by nothing, the symptoms are aggravated by nothing. Severity of pain: At its worst the pain was moderate in the emergency department the pain is unchanged. The patient has experienced similar episodes in the past, a few times. The patient has not recently seen a physician. Historical: - Allergies: 17:16 No Known Allergies; iw - PMHx: 17:15 Chronic Pancreatitis; Diabetes - IDDM; GERD; High Triglycerides; Angina pectoris; iw ROS: 18:24 Constitutional: Negative for fever, chills, and weight loss. kb 18:24 Abdomen/GI: Positive for abdominal pain, nausea and vomiting. 18:24 All other systems are negative. Exam: 18:24 Constitutional: This is a well developed, well nourished patient who is awake, alert, kb and in no acute distress. Head/Face: Normocephalic, atraumatic. ENT: Moist Mucous membranes Cardiovascular: Regular rate and rhythm with a normal S1 and S2. No gallops, murmurs, or rubs. No pulse deficits. Respiratory: Respirations even and unlabored. No increased work of breathing. Talking in full sentences Skin: Warm, dry with normal turgor. Normal color. MS/ Extremity: Pulses equal, no cyanosis. Neurovascular intact. Full, normal range of motion. Neuro: Awake and alert, GCS 15, oriented to person, place, time, and situation. Moves all extremities. Normal gait. 18:24 Abdomen/GI: Inspection: abdomen appears normal, Bowel sounds: normal, in all quadrants, Palpation: soft, in all quadrants, mild abdominal tenderness, in the epigastric area and right upper quadrant, moderate abdominal tenderness, in the left upper quadrant. Vital Signs: 17:15 BP 127 / 85; Pulse 87; Resp 16; Temp 98.1; Pulse Ox 100% on R/A; Weight 86.18 kg; iw Height 5 ft. 10 in. (177.80 cm); Pain 10/10; 17:15 Body Mass Index 27.26 (86.18 kg, 177.80 cm) iw MDM: 16:46 Patient medically screened. kb 18:23 Data reviewed: vital signs, nurses notes. ED course: Patient is a 42-year-old male with kb a history of pancreatitis due to high triglycerides that presents for upper abdominal pain with nausea and vomiting that started this morning. On exam patient has mild tenderness to right upper quadrant and epigastric area, moderate tenderness to left upper quadrant. Nontoxic in appearance. CT and serum labs ordered.. 19:22 Differential diagnosis: gastritis, non-specific abd pain, pancreatitis. Consideration kb of Admission/Observation Escalation of care including admission/observation considered. Considered admission for possible early ileus. Patient tolerating p.o. intake, nontoxic in appearance, normal white blood cell count, vitals within normal limits. Patient would like to go home. Educated on return precautions and need for follow-up with PCP. Verbal understanding received.. Care significantly affected by the following chronic conditions: Diabetes. Counseling: I had a detailed discussion with the patient and/or guardian regarding: the historical points, exam findings, and any diagnostic results supporting the discharge/admit diagnosis, lab results, radiology results, the need for outpatient follow up, a emergency department director, to return to the emergency department if symptoms worsen or persist or if there are any questions or concerns that arise at home. 09/10 16:51 Order name: CBC with Diff; Complete Time: 17:22 kb 09/10 16:51 Order name: CMP; Complete Time: 18:07 kb 09/10 16:51 Order name: Lipase; Complete Time: 18:07 kb 09/10 16:51 Order name: IV Saline Lock; Complete Time: 17:20 kb 09/10 16:51 Order name: Labs collected and sent; Complete Time: 17:20 kb 09/10 16:51 Order name: Lipid Profile; Complete Time: 18:07 kb 09/10 16:54 Order name: Abdomen ; Complete Time: 18:48 EDMS 09/10 17:52 Order name: LDL, Direct; Complete Time: 18:07 EDMS 09/10 18:24 Order name: Blood Glucose Level; Complete Time: 18:41 kb 09/10 18:52 Order name: Glucose, Ancillary Testing; Complete Time: 18:53 EDMS Administered Medications: 17:31 Drug: NS 0.9% 1000 ml Route: IV; Rate: 1 bolus; Site: left antecubital; iw 18:45 Follow up: IV Status: Completed infusion iw 17:32 Drug: Pepcid (famotidine) 20 mg Route: IVP; Site: left antecubital; iw 18:00 Follow up: Response: No adverse reaction iw 17:32 Drug: Zofran (Ondansetron) 4 mg Route: IVP; Site: left antecubital; iw 18:50 Follow up: Response: No adverse reaction; Nausea is decreased iw 17:32 Drug: morphine 4 mg Route: IVP; Infused Over: 4 mins; Site: left antecubital; iw 18:54 Follow up: Response: No adverse reaction; Pain is decreased iw Point of Care Testing: Blood Glucose: 18:42 Blood Glucose: 78 mg/dL; iw Ranges: Critical Glucose Levels:Adult <50 mg/dl or >400 mg/dl <40 mg/dl or >180 mg/dl Disposition Summary: 09/10/22 19:23 Discharge Ordered Location: Home kb Condition: Stable kb Diagnosis - Enteritis kb Followup: kb - With: Emergency Department - When: As needed - Reason: Worsening of condition Followup: kb - With: Private Physician - When: 2 - 3 days - Reason: Recheck today's complaints, Continuance of care, Re-evaluation by your physician Discharge Instructions: - Discharge Summary Sheet kb - Viral Gastroenteritis, Adult, [id number] kb Forms: - Medication Reconciliation Form kb - Thank You Letter kb - Antibiotic Education kb - Prescription Opioid Use kb Prescriptions: - Augmentin 875-125 mg Oral Tablet - take 1 tablet by ORAL route every 12 hours for 10 days; 20 tablet; Refills: 0, kb Product Selection Permitted - dicyclomine 20 mg Oral Tablet - take 1 tablet by ORAL route 4 times per day As needed; 20 tablet; Refills: 0, kb Product Selection Permitted Signatures: Dispatcher [employer] EDLa Naranjo FNP-C [employer] OPERATOR-CkMattie Peterson, RN RN iw Corrections: (The following items were deleted from the chart) 16:57 16:52 Abdomen Pelvis W Con+CT.RAD.BRZ ordered. EDMS EDMS
[2022-09-10 19:58] VITALS: BP 127/85; TEMP 98.1; O2SAT 100
== END 2022-09-10 19:37 | disposition home or self-care (01) ==
LOC: ER 16:25
DX: K52.9 Noninfective gastroenteritis and colitis, unspecified (principal)
CPT/HCPCS: 96361; 85025; 36415; 83721; 80061; 82947; 83690; 80053; 74177; 96375; 96374; 99284; Q9967; J7030; J2405

== ENCOUNTER 2022-12-15 00:37 | Emergency (ER) | payer BC ==
--- OUTSIDE RECORDS SUMMARY | 2022-12-15 00:43 | XMS REPORT | Continuity of Care Document ---
:1980 Author Organization [facility] t Address [address] [place] [address] Care Team Providers Name Role Phone Chetan Coleman Attending Clinician Unavailable Nader Randall Attending Clinician Doctor Unassigned, [place] Attending Clinician Unavailable Lillian James R Attending Clinician Madeline MCDONNELL, Annita Huizar Attending Clinician [place] FLORES, Kofi Justice Attending Clinician Laurence Jose MD Attending Clinician Cole Guan MD Attending Clinician [place] Attending Clinician Unavailable Laurence Jose MD Admitting Clinician Payers Payer Name Policy Type Policy Number Effective Date Expiration Date S kat [facility] - [id number] 2019 00:00:00 OUT OF STATE Problems Condition [...] uncontroll 00 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, ed, [facility] without without Utility complicati complicati ons [...] of 00:00: Diagnosis [place] 00 Term Medical [facility] Utility Allergies, Adverse Reactions, Alerts Allergy [...] Active Univers ALLERGIE Class ity of S [facility] Social History Social Habit Start Date Stop Date Quantity Comments Source History of Snuff User [place] of tobacco use [facility] Alcohol Comment occasional Universit y of [facility] Exposure to Not sure University of SARS-CoV-2 [place] Medical (event) Branch Alcohol intake 2020-06-25 2020-06-25 Current University of 00:00:00 00:00:00 non-drinker of [facility] alcohol (finding) Branch Tobacco use and 2020-06-25 2020-06-25 Current user Univers ity of exposure 00:00:00 00:00:00 [facility] Sex Assigned At [birth year] Universit y of 00:00:00 00:00:00 [facility] Smoking Status Start Date Stop Date Source Never smoker [facility] Medications Ordered Filled Start Stop Current Ordering Indication Dosage Frequency Signature Comments Components Source Medication Medication Date Date Medication? Clinician (SIG) Name Name morpHINE 2020- No 2mg 2 mg, Slow Un cb injection 2 11-16 IV Push, ity of mg 22:00: 22:00 ONCE, 1 [place] 00 :00 dose, [facility] Medical 11/16/20 at Branch 1700, STAT predniSONE 2020- No 20mg 20 mg, Univ ers (DELTASONE) 11-16 Oral, ity of tablet 20 21:30: 20:49 ONCE, 1 [place] mg 00 :00 dose, [facility] Medical 11/16/20 at Branch 1630, ANA MARIA amoxicillin 2020- No 1{tbl} 1 tablet, Univers -clavulanat 11-16 Oral, ity of e 21:30: 20:49 ONCE, 1 [place] (AUGMENTIN) 00 :00 dose, [facility] Med ical 875-125 mg 11/16/20 at [facility] per tablet 1630, 1 tablet Routine
Reason for Anti-Infec tive: Documented Infection< br>Documen j luis Infection Site: Abdominal< br>Duratio n of Therapy: 10 days iopamidol 2020- No [id number] 100mL 100 mL, Univers (ISOVUE 11-16 Intravenou ity o f 370-500 mL) 20:45: 19:30 s, ONCE, 1 [place] injection 00 :00 dose, Sat Medic al 100 mL 11/16/20 at Branch 1545, Routine morpHINE 2020- No 4mg 4 mg, Slow Un cb injection 4 11-16 IV Push, ity of mg 20:15: 19:12 ONCE, 1 [place] 00 :00 dose, [facility] Medical 11/16/20 at Branch 1515, STAT ondansetron 2020- No 4mg 4 mg, Slow Univers (ZOFRAN 11-16 IV Push, ity of (PF)) 19:30: 18:28 ONCE, 1 [place] injection 4 00 :00 dose, Sat Med ical mg 11/16/20 at Branch 1430, ANAM ARIA NaCl 0.9% 2020- No 1000mL at 999 Uni vers (NS) bolus 5-08 05-08 mL/hr, ity of infusion 19:30: 21:16 1,000 mL, [place] as 1,000 mL 00 :00 IV Medical Infusion, [place] ONCE, 1 dose, 11/16/20 at 1430, STAT amoxicillin 2020- Yes [id number] 1{tbl} Take 1 Univers -clavulanat 5-08 tablet by ity of e 875-125 00:00: mouth [place] mg per 00 every 12 Medical tablet (twelve) Branch hours. predniSONE Yes [id number] 1 PO BID x Univers 20 mg 5-08 4 days ity of tablet 00:00: [place] 00 Medical Branch ibuprofen 2020- No 800mg 800 mg, Uni vers (IBU) 17 -17 Oral, ity of tablet 800 23:30: 22:44 ONCE, 1 [place] mg 00 :00 dose, [place] Medical 07/28/20 at Branch 1730, ANA MARIA Diclofenac Yes [id number] Apply to Univers Sodium 1-17 area(s) 2 ity of (VOLTAREN) 00:00: (two) [place] 1 % gel 00 times Medical daily. [place] Diclofenac Yes [id number] Apply to Univers Sodium 1-17 area(s) 2 ity of (VOLTAREN) 00:00: (two) [place] 1 % gel 00 times Medical daily. [place] Diclofenac Yes [id number] Apply to Univers Sodium 1-17 area(s) 2 ity of (VOLTAREN) 00:00: (two) [place] 1 % gel 00 times Medical daily. [place] insulin 2019-07 Yes 36U 36 Units, Unive rs glargine 2-20 Subcutaneo ity o f (LANTUS 03:00: , [facility], [place] U-100) 00 First dose Medical injection (after Branch 36 Units last modificati on) on 06/29/20 at 2100, Until Discontinu ed, Routine gemfibroziL 2019-07 Yes 600mg Take 600 U nivers 600 mg 2-20 mg by ity of tablet 01:33: mouth 2 [place] [address] (two) Medical times Branch daily before breakfast and dinner. metoprolol 2019-07 Yes 25mg Take 25 mg U nivers tartrate 25 2-20 by mouth 2 it y of mg tablet 01:33: (two) [place] [address] times Medical daily. Branch Pantoprazol 2019-07 Yes 40mg Take 40 mg Univers e 40 mg 2-20 by mouth ity of delayed-rel 01:33: daily. [place] ease 08 Medical suspension Branch busPIRone 2019-07 Yes 10mg Take 10 mg Un cb 10 mg 2-20 by mouth 2 ity of tablet 01:33: (two) [place] [address] times Medical daily. Branch niacin 500 2019-07 Yes 500mg Take 500 Un cb mg tablet 2-20 mg by ity of 01:33: mouth [place] 08 daily with Medical breakfast. Branch lipase-prot 2019-07 Yes [id number] Take Univ ers ease-amylas 2-20 36,000 ity of e (CREON) 01:33: Units by [place] s 36,000-114, 08 mouth with Me dical 000- all meals. Branch 180,000 Take 2 unit CpDR capsules by mouth with meals and 1 with each snack. losartan 25 2019-07 Yes 25mg Take 25 mg Univers mg tablet 2-20 by mouth ity of 01:33: daily. [place] [address] Medical Branch vortioxetin 2019-07 Yes 10mg Take 10 mg Univers e 10 mg Tab 2-20 by mouth ity of 01:33: at [place] [address] bedtime. Medical Branch gemfibroziL 2019-07 Yes 600mg Take 600 U nivers 600 mg 2-20 mg by ity of tablet 01:33: mouth 2 [place] [address] (two) Medical times Branch daily before breakfast and dinner. metoprolol 2019-07 Yes 25mg Take 25 mg U nivers tartrate 25 2-20 by mouth 2 it y of mg tablet 01:33: (two) [place] [address] times Medical daily. Branch Pantoprazol 2019-07 Yes [...] with Medical breakfast. Branch lipase-prot 2019- Yes [id number] Take Univ ers ease-amylas 2-20 36,000 ity of e (CREON) 01:33: Units by [place] 36,000-114, 08 mouth with Me dical 000- all meals. Branch 180,000 Take 2 unit CpDR capsules by mouth with meals and 1 with each snack. losartan 25 2019- Yes 25mg Take 25 mg Univers mg tablet 2-20 by mouth ity of 01:33: daily. [place] [address] Medical Branch vortioxetin 2019- Yes 10mg Take 10 mg Univers e 10 mg Tab 2-20 by mouth ity of 01:33: at [place] [address] bedtime. Medical Branch gemfibroziL 2019- Yes 600mg Take 600 U nivers 600 mg 2-20 mg by ity of tablet 01:33: mouth 2 [place] 08 (two) Medical times Branch daily before breakfast and dinner. metoprolol 2019- Yes 25mg Take 25 mg U nivers tartrate 25 2-20 by mouth 2 it y of mg tablet 01:33: (two) [place] [address] times Medical daily. Branch Pantoprazol 2019-07 Yes 40mg Take 40 mg Univers e 40 mg 2-20 by mouth ity of delayed-rel 01:33: daily. [place] ease 08 Medical suspension Branch busPIRone 2019- Yes 10mg Take 10 mg Un cb 10 mg 2-20 by mouth 2 ity of tablet 01:33: (two) [place] [address] times Medical daily. Branch niacin 500 2019-07 Yes 500mg Take 500 Un cb mg tablet 2-20 mg by ity of 01:33: mouth [place] 08 daily with Medical breakfast. Branch lipase-prot 2019- Yes [id number] Take Univ ers ease-amylas 2-20 36,000 ity of e (CREON) 01:33: Units by [place] 36,000-114, 08 mouth with Me dical 000- all meals. Branch 180,000 Take 2 unit CpDR capsules by mouth with meals and 1 with each snack. losartan 25 2019- Yes 25mg Take 25 mg Univers mg tablet 2-20 by mouth ity of 01:33: daily. [place] [address] Medical Branch vortioxetin 2019- Yes 10mg Take 10 mg Univers e 10 mg Tab 2-20 by mouth ity of 01:33: at [place] [address] bedtime. Medical Branch gemfibroziL 2019- Yes 600mg Take 600 U nivers 600 mg 2-20 mg by ity of tablet 01:33: mouth 2 (two) Medical times [place] daily before breakfast and dinner. metoprolol 2019- Yes 25mg Take 25 mg U nivers tartrate 25 2-20 by mouth 2 it y of mg tablet 01:33: (two) [place] [address] times Medical daily. Branch Pantoprazol 2019- Yes 40mg Take 40 mg Univers e 40 mg 2-20 by mouth ity of delayed-rel 01:33: daily. [place] ease 08 Medical suspension Branch busPIRone 2019-07 Yes 10mg Take 10 mg Un cb 10 mg 2-20 by mouth 2 ity of tablet 01:33: (two) [place] [address] times Medical daily. Branch niacin 500 2019- Yes 500mg Take 500 Un cb mg tablet 2-20 mg by ity of 01:33: mouth [place] 08 daily with Medical breakfast. Branch lipase-prot 2019-07 Yes [id number] Take Univ ers ease-amylas 2-20 36,000 ity of e (CREON) 01:33: Units by [facility] s 36,000-114, 08 mouth with Me dical 000- all meals. Branch 180,000 Take 2 unit CpDR capsules by mouth with meals and 1 with each snack. losartan 25 2019-07 Yes 25mg Take 25 mg Univers mg tablet 2-20 by mouth ity of 01:33: daily. [place] [address] Medical Branch vortioxetin 2019- Yes 10mg Take 10 mg Univers e 10 mg Tab 2-20 by mouth ity of 01:33: at [place] [address] bedtime. Medical Branch gemfibroziL 2019- Yes 600mg Take 600 U nivers 600 mg 2-20 mg by ity of tablet 01:33: mouth 2 [place] [address] (two) Medical times [place] daily before breakfast and dinner. metoprolol 2019- Yes 25mg Take 25 mg U nivers tartrate 25 2-20 by mouth 2 it y of mg tablet 01:33: (two) [place] [address] times Medical daily. Branch Pantoprazol 2019- Yes [...] with Medical breakfast. Branch lipase-prot 2019- Yes [id number] Take Univ ers ease-amylas 2-20 36,000 ity of e (CREON) 01:33: Units by [place] 36,000-114, 08 mouth with Me dical 000- all meals. Branch 180,000 Take 2 unit CpDR capsules by mouth with meals and 1 with each snack. losartan 25 2019- Yes 25mg Take 25 mg Univers mg tablet 2-20 by mouth ity of 01:33: daily. [place] [address] Medical Branch vortioxetin 2019- Yes 10mg Take 10 mg Univers e 10 mg Tab 2-20 by mouth ity of 01:33: at [place] [address] bedtime. Medical Branch gemfibroziL 2019- Yes 600mg [...] with Medical breakfast. Branch lipase-prot 2019- Yes [id number] Take Univ ers ease-amylas 2-20 36,000 ity of e (CREON) 01:33: Units by [place] 36,000-114, 08 mouth with Me dical 000- all meals. Branch 180,000 Take 2 unit CpDR capsules by mouth with meals and 1 with each snack. losartan 25 2019-07 Yes 25mg Take 25 mg Univers mg tablet 2-20 by mouth ity of 01:33: daily. [place] 08 Medical Branch vortioxetin 2019-07 Yes 10mg Take 10 mg Univers e 10 mg Tab 2-20 by mouth ity of 01:33: at [place] 08 bedtime. Medical Branch insulin 2019-07 2020- No 15U 15 Units, [facility] ers glargine -06-29 Subcutaneo ity of (LANTUS 15:00: 14:07 us, ONCE, [place] U-100) 00 :00 1 dose, Medical injection Sat Branch 15 Units 06/29/20 at 0900, Routine morpHINE 2019-07 Yes 2mg 2 mg, Slow Uni vers injection 2 08-30 IV Push, ity of mg 08:15: Q6HPRN, [place] 00 Starting Medical Sat Branch 06/29/20 at 0215, Until Discontinu ed, Routine, Pain (scale 7-10) atorvastati 2019-07- No [id number] 40mg Take 1 Univers n 40 mg 08-30 tablet by ity of tablet 00:00: 05:59 mouth at [place] 00 :00 bedtime Medical for 30 Branch days. atorvastati 2019-07- No [id number] 40mg Take 1 Univers n 40 mg 08-30 tablet by ity of tablet 00:00: 05:59 mouth at [place] 00 :00 bedtime Medical for 30 Branch days. atorvastati 2019-07- No [id number] 40mg Take 1 Univers n 40 mg 08-30 tablet by ity of tablet 00:00: 05:59 mouth at [place] 00 :00 bedtime Medical for 30 Branch days. atorvastati 2019-07- No [id number] 40mg Take 1 Univers n 40 mg 08-30 tablet by ity of tablet 00:00: 05:59 mouth at [place] 00 :00 bedtime Medical for 30 Branch [...] 1 [place] mg 00 :00 dose, [place] [facility] Medical 06/28/20 Branch at 1500, Routine FLUoxetine [...] [place] 40 mEq 00 :00 dose, [place] [facility] Medical 06/28/20 Branch at 0830, Routine Sliding 2019- Yes Subcutaneo Univ ers Scale 2-18 us, AC+HS, ity of Insulin-Reg 13:30: First dose [place] ular + Fsbg 00 on Wed Medica [...] use: PATIENT CURRENTLY TAKING NONFORMULA RY PRODUCT
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 : ELLIS ALMEIDA [...] First dose [place] mg 00 on [facility] 06/26/20 Branch at 2100, Until Discontinu ed, Routine gemfibroziL 2019-07 Yes 600mg 600 mg, Un cb (LOPID) 2-17 Oral, BID, ity of tablet 600 02:00: First dose [place] mg 00 on [facility] 06/26/20 Branch at 2000, Until Discontinu ed, Routine busPIRone 2019-07 Yes 10mg 10 mg, Univer s (BUSPAR) 2-17 Oral, BID, ity o f tablet 10 02:00: First dose [place] mg 00 on [facility] 06/26/20 Branch at 2000, Until Discontinu ed, Routine enoxaparin 2019-07 Yes 40mg 40 mg, Unive rs (LOVENOX) 16 Subcutaneo ity of injection 23:00: us, DAILY, [place] 40 mg 00 First dose Medical on [facility] 06/26/20 at 1700, Until Discontinu ed, Routine morpHINE 2019-07 2020- No 4mg 4 mg, Slow Un cb injection 4 08-27 IV Push, ity of mg 16:30: 07:29 Q3HPRN, [place] 00 :00 Starting [facility] 06/26/20 at 1030, Until Padmini 06/27/20 [...] rate based on Triglyceri de level, Starting [facility] 06/26/20 at 1016
If glucose < [...] 16:15 Q4HPRN, [place] 11 :46 Starting Medical [facility] Branch 06/26/20 at 0521, Until Wed06/26/20 at 1015, Routine, Pain (scale 7-10) NaCl 0.9% 2019-07 No 1000mL at 125 Uni vers (NS) IV 08-27 mL/hr, IV ity of infusion 08:00: 14:01 Infusion, [place] as 1,000 mL 00 :34 CONTINUOUS Medic al , Starting Branch [facility] 06/26/20 at 0200, Until Wed06/26/20 at 0801, Routine dextrose 50 2019-07 No 25mL 25 mL, Uni vers % in water 08-27 Slow IV ity o f (D50W) 07:48: 13:26 Push, PRN, [place] injection 20 :23 Starting Medica l 25 mL [facility] 06/26/20 at 0148, Until Wed06/28/20 at 0726, ANA MARIA, Blood Glucose < or = 70 mg/dL and patient is unable to swallow or has mental status changes. proMETHazin 2019-07- No 25mg 25 mg, IV Univers e 08-27 Piggyback, ity of (PHENERGAN) 07:45: 07:45 ONCE, 1 [place] 25 mg in 00 :00 dose, [facility] Medica l NaCl 0.9% 06/26/20 Branch (NS) 50 mL at 0145, piggyback 50 mL FENTanyl PF 2019-07- No 100ug 100 mcg, Univers (SUBLIMAZE 08-27 Slow IV ity o f (PF)) 07:45: 06:34 Push, [place] injection 00 :00 ONCE, 1 Medical 100 mcg dose, [facility] Branch 06/26/20 at 0145, Routine morpHINE 2019-07- No 2mg 2 mg, Slow Un cb injection 2 08-27 IV Push, ity of mg 07:44: 11:21 Q4HPRN, [place] 30 :45 Starting Medical [facility] 06/26/20 at 0144, Until Wed06/26/20 at 0521, [...] :00 ONCE, 1 Medical 75 mcg dose, [facility] 06/25/20 at 2200, Routine LOVAZA, 2019-0 Yes [id number] 3g Take 3 Univ ers omega-3-aci 7-31 capsules ity of d ethyl 00:00: by mouth [place] esters, 1 00 daily. Medical [facility] Branch capsule LOVAZA, 2019-0 Yes [id number] 3g Take 3 Univ ers omega-3-aci 7-31 capsules ity of d ethyl 00:00: by mouth [place] esters, 1 00 daily. Medical [facility] Branch capsule LOVAZA, 2019-0 Yes [id number] 3g Take 3 Univ ers omega-3-aci 7-31 capsules ity of d ethyl 00:00: by mouth [place] esters, 1 00 daily. Medical [facility] Branch capsule LOVAZA, 0 Yes [id number] 3g Take 3 Univ ers omega-3-aci 7-31 capsules ity of d ethyl 00:00: by mouth [place] esters, 1 00 daily. Medical [facility] capsule LOVAZA, 2019-0 Yes [id number] 3g Take 3 Univ ers omega-3-aci 7-31 capsules ity of d ethyl 00:00: by mouth [place] esters, 1 00 daily. Medical [facility] capsule LOVAZA, 2019-0 Yes [id number] 3g Take 3 Univ ers omega-3-aci 7-31 capsules ity of d ethyl 00:00: by mouth [place] esters, 1 00 daily. Medical [facility] capsule LOVAZA, 2019-0 Yes [id number] 3g Take 3 Univ ers omega-3-aci 7-31 capsules ity of d ethyl 00:00: by mouth [place] esters, 1 00 daily. Medical [facility] capsule LOVAZA, 2019-0 Yes [id number] 3g Take 3 Univ ers omega-3-aci 7-31 capsules ity of d ethyl 00:00: by mouth [place] esters, 1 00 daily. Medical [facility] capsule ondansetron Yes [id number] 4mg Take 1 Univers (ZOFRAN 5-03 tablet by ity of ODT) 4 mg 00:00: mouth [place] disintegrat 00 every 8 Medic al ing tablet (eight) Branch hours as needed for Nausea and Vomiting (N/V). ondansetron Yes [id number] 4mg Take 1 Univers (ZOFRAN 5-03 tablet by ity of ODT) 4 mg 00:00: mouth [place] disintegrat 00 every 8 Medic al ing tablet (eight) Branch hours as needed for Nausea and Vomiting (N/V). ondansetron 2019-0 Yes [id number] 4mg Take 1 Univers (ZOFRAN 5-03 tablet by ity of ODT) 4 mg 00:00: mouth [place] disintegrat 00 every 8 Medic al ing tablet (eight) Branch hours as needed for Nausea and Vomiting (N/V). ondansetron 2019-0 Yes [id number] 4mg Take 1 Univers (ZOFRAN 5-03 tablet by ity of ODT) 4 mg 00:00: mouth [place] disintegrat 00 every 8 Medic al ing tablet (eight) Branch hours as needed for Nausea and Vomiting (N/V). ondansetron 2019-0 Yes [id number] 4mg Take 1 Univers (ZOFRAN 5-03 tablet by ity of ODT) 4 mg 00:00: mouth [place] disintegrat 00 every 8 Medic al ing tablet (eight) Branch hours as needed for Nausea and Vomiting (N/V). ondansetron 2019-0 Yes [id number] 4mg Take 1 Univers (ZOFRAN 5-03 tablet by ity of ODT) 4 mg 00:00: mouth [place] disintegrat 00 every 8 Medic al ing tablet (eight) Branch hours as needed for Nausea and Vomiting (N/V). ondansetron 2019-0 Yes [id number] 4mg Take 1 Univers (ZOFRAN 5-03 tablet by ity of ODT) 4 mg 00:00: mouth [place] disintegrat 00 every 8 Medic al ing tablet (eight) Branch hours as needed for Nausea and Vomiting (N/V). ondansetron 2019-0 Yes [id number] 4mg Take 1 Univers (ZOFRAN 5-03 tablet by ity of ODT) 4 mg 00:00: mouth [place] disintegrat 00 every 8 Medic al ing tablet (eight) Branch hours as needed for Nausea and Vomiting (N/V). ondansetron 2019-0 Yes [id number] 4mg Take 1 Univers (ZOFRAN 5-03 tablet by ity of ODT) 4 mg 00:00: mouth [place] disintegrat 00 every 8 Medic al ing tablet (eight) Branch hours as needed for Nausea and Vomiting (N/V). ondansetron Yes [id number] 4mg Take 1 Univers (ZOFRAN 5-03 tablet by ity of ODT) 4 mg 00:00: mouth [place] disintegrat 00 every 8 Medic al ing tablet (eight) Branch hours as needed for Nausea and Vomiting (N/V). Insulin Yes QID, Univers [place], 9 DX:E11.9 ity of Disposable, 00:00: [place] (BD INSULIN 00 Medical PEN NEEDLE Branch UF) 31 gauge x 5/16" Ndle Insulin Yes QID, Univers [place], 04-05 DX:E11.9 ity of Disposable, 00:00: [place] (BD INSULIN Medical PEN NEEDLE Branch UF) 31 gauge x 5/16" Ndle Insulin Yes QID, Univers [place], 04-05 DX:E11.9 ity of Disposable, 00:00: [place] (BD INSULIN Medical PEN NEEDLE Branch UF) 31 gauge x 5/16" Ndle Insulin Yes QID, Univers [place], 04-05 DX:E11.9 ity of Disposable, 00:00: [place] (BD INSULIN 00 Medical PEN NEEDLE Branch UF) 31 gauge x 5/16" Ndle Insulin Yes QID, Univers [place], 04-05 DX:E11.9 ity of Disposable, 00:00: [place] (BD INSULIN 00 Medical PEN NEEDLE Branch UF) 31 gauge x 5/16" Ndle Insulin Yes QID, Univers [place], 04-05 DX:E11.9 ity of Disposable, 00:00: [place] (BD INSULIN Medical PEN NEEDLE Branch UF) 31 gauge x 5/16" Ndle atorvastati Yes [id number] 40mg Take 1 Univers n (LIPITOR) 9-25 tablet by ity of 40 mg 00:00: mouth at [place] tablet 00 bedtime. Medical Branch LOVAZA, Yes [id number] 2g Take 2 Uni vers omega-3-aci 9-25 capsules ity of d ethyl 00:00: by mouth 2 [place] esters, 00 (two) Medical (LOVAZA) 1 times Branch gram daily capsule before breakfast and dinner. Insulin Yes QID, Univers [place], 04-05 DX:E11.9 ity of Disposable, 00:00: [place] (BD INSULIN 00 Medical PEN NEEDLE Branch UF) 31 gauge x 5/16" Ndle atorvastati Yes [id number] 40mg Take 1 Univers n (LIPITOR) 9-25 tablet by ity of 40 mg 00:00: mouth at [place] tablet 00 bedtime. [facility], Yes [id number] 2g Take 2 Uni vers omega-3-aci -25 capsules ity of d ethyl 00:00: by mouth 2 [place] esters, 00 (two) Medical (LOVAZA) 1 times Branch gram daily capsule before breakfast and dinner. Insulin Yes QID, Univers [place], 04-05 DX:E11.9 ity of Disposable, 00:00: [place] (BD INSULIN 00 Medical PEN NEEDLE Branch UF) 31 gauge x 5/16" Ndle Insulin Yes QID, Univers [place], 04-05 DX:E11.9 ity of Disposable, 00:00: [place] (BD INSULIN Medical PEN NEEDLE Branch UF) 31 gauge x 5/16" Ndle Insulin Yes QID, Univers [place], 04-05 DX:E11.9 ity of Disposable, 00:00: [place] (BD INSULIN 00 Medical PEN NEEDLE Branch UF) 31 gauge x 5/16" Ndle atorvastati 2020- No [id number] 40mg Take 1 Univers n (LIPITOR) 04-05 tablet by it y of 40 mg 00:00: 00:00 mouth at [place] tablet 00 :00 bedtime. [facility], 2020- No [id number] 2g Take 2 Un cb omega-3-aci 04-05- capsules ity of d ethyl 00:00: 00:00 by mouth 2 [place] esters, 00 :00 (two) Medical (LOVAZA) 1 times Branch gram daily capsule before breakfast and dinner. insulin Yes [id number] Inject as U nivers aspart 6-20 instructed ity of (NOVOLOG 00:00: TID AC up [place] FLEXPEN) 00 to 80 Medical 100 unit/mL units Branch injection daily Insulin Yes [id number] 35U inject 35 U nivers Glargine 6-20 Units ity of (LANTUS 00:00: under the [place] SOLOSTAR) 00 skin every Medi maribeth 100 unit/mL morning. Bran ch (3 mL) injection insulin Yes [id number] Inject as U nivers aspart 6-20 instructed ity of (NOVOLOG 00:00: TID AC up [place] FLEXPEN) 00 to 80 Medical 100 unit/mL units Branch injection daily Insulin Yes [id number] 35U inject 35 U nivers Glargine 6-20 Units ity of (LANTUS 00:00: under the [place] SOLOSTAR) 00 skin every Medi maribeth 100 unit/mL morning. Bran ch (3 mL) injection insulin Yes [id number] Inject as U nivers aspart 6-20 instructed ity of (NOVOLOG 00:00: TID AC up [place] FLEXPEN) 00 to 80 Medical 100 unit/mL units Branch injection daily Insulin Yes [id number] 35U inject 35 U nivers Glargine 6-20 Units ity of (LANTUS 00:00: under the [place] SOLOSTAR) 00 skin every Medi maribeth 100 unit/mL morning. Bran ch (3 mL) injection insulin Yes [id number] Inject as U nivers aspart 6-20 instructed ity of (NOVOLOG 00:00: TID AC up [place] FLEXPEN) 00 to 80 Medical 100 unit/mL units Branch injection daily Insulin Yes [id number] 35U inject 35 U nivers Glargine 6-20 Units ity of (LANTUS 00:00: under the [place] SOLOSTAR) 00 skin every Medi maribeth 100 unit/mL morning. Bran ch (3 mL) injection insulin Yes [id number] Inject as U nivers aspart 6-20 instructed ity of (NOVOLOG 00:00: TID AC up [place] FLEXPEN) 00 to 80 Medical 100 unit/mL units Branch injection daily Insulin Yes [id number] 35U inject 35 U nivers Glargine 6-20 Units ity of (LANTUS 00:00: under the [place] SOLOSTAR) 00 skin every Medi maribeth 100 unit/mL morning. Bran ch (3 mL) injection glucagon 1 Yes [id number] Use as U nivers mg/mL SolR 6-20 instructed ity of injection 00:00: in case of [place] 00 severe Medical hypoglycem Branch ia. insulin Yes [id number] Inject as U nivers aspart 6-20 instructed ity of (NOVOLOG 00:00: TID AC up [place] FLEXPEN) 00 to 80 Medical 100 unit/mL units Branch injection daily Insulin Yes [id number] 35U inject 35 U nivers Glargine 6-20 Units ity of (LANTUS 00:00: under the [place] SOLOSTAR) 00 skin every Medi maribeth 100 unit/mL morning. Bran ch (3 mL) injection insulin Yes [id number] Inject as U nivers aspart 6-20 instructed ity of (NOVOLOG 00:00: TID AC up [place] FLEXPEN) 00 to 80 Medical 100 unit/mL units Branch injection daily Insulin Yes [id number] 35U inject 35 U nivers Glargine 6-20 Units ity of (LANTUS 00:00: under the [place] SOLOSTAR) 00 skin every Medi maribeth 100 unit/mL morning. Bran ch (3 mL) injection glucagon 1 Yes [id number] Use as U nivers mg/mL SolR 6-20 instructed ity of injection 00:00: in case of [place] 00 severe Medical hypoglycem Branch ia. insulin Yes [id number] Inject as U nivers aspart 6-20 instructed ity of (NOVOLOG 00:00: [place] FLEXPEN) 00 to 80 Medical 100 unit/mL units Branch injection daily Insulin Yes [id number] 35U inject 35 U nivers Glargine 6-20 Units ity of (LANTUS 00:00: under the [place] SOLOSTAR) 00 skin every Medi maribeth 100 unit/mL morning. Bran ch (3 mL) injection insulin Yes [id number] Inject as U nivers aspart 6-20 instructed ity of (NOVOLOG 00:00: [place] FLEXPEN) 00 to 80 Medical 100 unit/mL units Branch injection daily Insulin Yes [id number] 35U inject 35 U nivers Glargine 6-20 Units ity of (LANTUS 00:00: under the [place] SOLOSTAR) 00 skin every Medi maribeth 100 unit/mL morning. Bran ch (3 mL) injection insulin Yes [id number] Inject as U nivers aspart 6-20 instructed ity of (NOVOLOG 00:00: TID [place] FLEXPEN) 00 to 80 Medical 100 unit/mL units Branch injection daily Insulin Yes [id number] 35U inject 35 U nivers Glargine 6-20 Units ity of (LANTUS 00:00: under the [place] SOLOSTAR) 00 skin every Medi maribeth 100 unit/mL morning. Bran ch (3 mL) injection glucagon 1 2020- No [id number] Use as Univers mg/mL SolR 6-20 02-08 [...] ity of mg tablet 00:00: every 6 [place] 00 (six) Medical hours as Branch needed [...] by mouth ity of tablet 00:00: daily. [place] [facility] enalapril 2014-07 Yes 5mg Take 1 Tab Un cb (VASOTEC) 5 0-10 by mouth ity of mg tablet 00:00: daily. [place] [facility] fenofibrate 2014-07 Yes 134mg Take 1 Cap Univers micronized 0-10 by mouth ity o f (LOFIBRA) 00:00: daily. [place] 134 mg 00 Medical capsule Branch aspirin [...] mouth ity o f (LOFIBRA) 00:00: daily. [place] 134 mg 00 Medical capsule Branch aspirin 81 2014-07 2020- No 81mg Take 1 Tab Univers mg chewable 0-10 07-31 by mouth ity of tablet 00:00: 00:00 daily. [place] 00 :00 Medical Branch enalapril 2014-07 2020- No 5mg Take 1 Tab U nivers (VASOTEC) 5 0-10 07-31 by mouth ity of mg tablet 00:00: 00:00 daily. 00 :00 Medical Branch fenofibrate 2014-07 2020- No 134mg Take 1 Cap Univers micronized 0-10 07-31 by mouth ity of (LOFIBRA) 00:00: 00:00 daily. [place] 134 mg 00 :00 Medical capsule Branch blood sugar 2011-07 Yes [id number] before Univers diagnostic 0-05 meals and ity of (FREESTYLE 00:00: at [place] INSULINX) 00 bedtime. Medica l strip Branch blood sugar 2011-07 Yes [id number] before Univers diagnostic 0-05 meals and ity of (FREESTYLE 00:00: at [place] INSULINX) 00 bedtime. Medica l strip Branch blood sugar 2011-07 2020- No [id number] before Univers diagnostic 0-05 07-31 meals and ity of (FREESTYLE 00:00: 00:00 at [place] INSULINX) 00 :00 bedtime. Medica l strip Branch Lancets Yes [id number] Univer s (LANCETS,UL 9-24 ity of TRA THIN) 00:00: [facility] Medical Branch Lancets 2011-0 Yes [id number] Univer s (LANCETS,UL 9-24 ity of TRA THIN) 00:00: [place] [address] Medical Branch Lancets 2011-0 Yes [id number] Univer s (LANCETS,UL 9-24 ity of TRA THIN) 00:00: [place] [address] Medical Branch Lancets 2012-0 Yes [id number] Univer s (LANCETS,UL 9-24 ity of TRA THIN) 00:00: [place] [address] Medical Branch Lancets 2012-0 Yes [id number] Univer s (LANCETS,UL 9-24 ity of TRA THIN) 00:00: [place] [address] Medical Branch Lancets 2012-0 Yes [id number] Univer s (LANCETS,UL 9-24 ity of TRA THIN) 00:00: [place] [address] Medical Branch Lancets 2012-0 Yes [id number] Univer s (LANCETS,UL 9-24 ity of TRA THIN) 00:00: [place] [address] Medical Branch Lancets 2012-0 Yes [id number] Univer s (LANCETS,UL 9-24 ity of TRA THIN) 00:00: [place] [address] Medical Branch Lancets 2012-0 Yes [id number] Univer s (LANCETS,UL 9-24 ity of TRA THIN) 00:00: [place] [address] Medical Branch Lancets 2012-0 Yes [id number] Univer s (LANCETS,UL 9-24 ity of TRA THIN) 00:00: [place] [address] Medical Branch Vital Signs Vital Name Observation Time Observation Value Comments Source Systolic blood 2020-11-16 21:02:00 150 mm[Hg] Univer sity of pressure [place] [facility] Diastolic blood 2020-11-16 21:02:00 93 mm[Hg] Unive rsity of pressure [place] [facility] Heart rate 2020-11-16 21:02:00 93 /min Universi ty of [place] [facility] Respiratory rate 2020-11-16 21:02:00 20 /min Univ ersity of [place] [facility] Oxygen saturation in 2020-11-16 21:02:00 100 /min University of Arterial blood by [facility] Pulse oximetry Branch Body temperature 2020-11-16 18:21:00 36.61 Dejah Univ ersity of [place] [facility] Body weight 2020-11-16 18:21:00 89.359 kg Universi ty of [place] [facility] BMI 2020-11-16 18:21:00 28.27 kg/m2 Universi ty of [place] [facility] Systolic blood 2020-07-28 21:58:00 147 mm[Hg] Univer sity of pressure [place] [facility] Diastolic blood 2020-07-28 21:58:00 100 mm[Hg] Unive rsity of pressure [place] [facility] Heart rate 2020-07-28 21:58:00 103 /min Universi ty of [place] [facility] Body temperature 2020-07-28 21:58:00 36.28 Dejah Univ ersity of [place] [facility] Respiratory rate 2020-07-28 21:58:00 20 /min Univ ersity of [place] [facility] Body weight 2020-07-28 21:58:00 86.183 kg Universi ty of [place] [facility] BMI 2020-07-28 21:58:00 27.26 kg/m2 Universi ty of [place] [facility] Oxygen saturation in 2020-07-28 21:58:00 100 /min University of Arterial blood by [facility] Pulse oximetry Branch Systolic blood 2020-06-29 22:21:00 133 mm[Hg] Univer sity of pressure [place] [facility] Diastolic blood 2020-06-29 22:21:00 81 mm[Hg] Unive rsity of pressure [facility] Heart rate 2020-06-29 22:21:00 89 /min Universi ty of [facility] Body temperature 2020-06-29 22:21:00 36.83 Dejah Univ ersity of [facility] Respiratory rate 2020-06-29 22:21:00 18 /min Univ ersity of [facility] Oxygen saturation in 2020-06-29 22:21:00 99 /min University of Arterial blood by [facility] Pulse oximetry Branch Body weight 2020-06-27 10:03:00 87.998 kg Universi ty of [facility] BMI 2020-06-27 10:03:00 27.84 kg/m2 Universi ty of [facility] Body height 2020-06-26 07:45:00 177.8 cm Universi ty of [facility] Systolic blood 2020-06-29 22:21:00 133 mm[Hg] Univer sity of pressure [facility] Diastolic blood 2020-06-29 22:21:00 81 mm[Hg] Unive rsity of pressure [facility] Heart rate 2020-06-29 22:21:00 89 /min Universi ty of [facility] Body temperature 2020-06-29 22:21:00 36.83 Dejah Univ ersity of [facility] Respiratory rate 2020-06-29 22:21:00 18 /min Univ ersity of [facility] Oxygen saturation in 2020-06-29 22:21:00 99 /min University of Arterial blood by [facility] Pulse oximetry Branch Body weight 2020-06-27 10:03:00 87.998 kg Universi ty [facility] BMI 2020-06-27 10:03:00 27.84 kg/m2 Universi ty [facility] Body height 2020-06-26 07:45:00 177.8 cm Universi ty [facility] Procedures Procedure Date / Time Performing Clinician Source Performed CT ABDOMEN PELVIS W 2020-11-16 19:40:14 Nader Mendoza [facility] LIPASE 2020-11-16 18:28:00 [facility] MAGNESIUM 2020-11-16 18:28:00 Nader [facility] COMP. METABOLIC PANEL 2020-11-16 18:28:00 Nader Mendoza [facility] ([id number]) Medical Branch CBC WITH DIFF 2020-11-16 18:28:00 Nader Mendoza [facility] URINALYSIS 2020-11-16 18:28:00 Nader Mendoza [facility] POCT GLUCOSE (AUTOMATED) 2020-11-16 18:25:00 Nader Mendoza [facility] CONSENT/REFUSAL FOR 2020-11-16 18:14:39 Doctor Unassigned, [facility] DIAGNOSIS AND TREATMENT [place] [facility] CT CERVICAL SPINE WO 2020-07-28 22:41:56 [facility] CONTRAST [facility] CT HEAD WO CONTRAST 2020-07-28 22:41:56 Lillian Barr [facility] NOTICE OF PRIVACY 2020-07-28 21:50:31 [facility] [place] [facility] [place] CONSENT/REFUSAL FOR 2020-07-28 21:50:20 Doctor Unassigned, [facility] DIAGNOSIS AND TREATMENT [place] [facility] POCT GLUCOSE (AUTOMATED) 2020-06-29 23:35:[facility]) 2020-06-29 18:04:00 Rebeca [facility] POCT GLUCOSE (AUTOMATED) 2020-06-29 13:54:00 [facility] TRIGLYCERIDES 2020-06-29 11:20:00 [facility] BASIC METABOLIC PANEL 2020-06-29 11:20:00 [facility] (NA, K, CL, CO2, GLUCOSE, Medica l Branch BUN, CREATININE, CA) CBC WITH DIFF 2020-06-29 11:20:00 [facility] - DR[facility]CREEN 2020-06-29 03:10:00 Favio Moscoso [facility] TRIAGE [facility] POCT GLUCOSE (AUTOMATED) 2020-06-28 22:46:00 Rebeca [facility] POCT GLUCOSE (AUTOMATED) 2020-06-28 18:53:00 Rebeca Laurence Uni versity of [facility] POCT GLUCOSE (AUTOMATED) 2020-06-28 18:01:00 Rebeca Laurence Bagley versity of [facility] POCT GLUCOSE (AUTOMATED) 2020-06-28 13:27:00 Rebeca Laurence Bagley versity of [facility] POCT GLUCOSE (AUTOMATED) 2020-06-28 11:48:00 [facility] TRIGLYCERIDES 2020-06-28 10:27:00 [facility] LIPASE 2020-06-28 10:27:00 Rebeca [facility] MAGNESIUM 2020-06-28 10:27:00 Danis [facility] BASIC METABOLIC PANEL 2020-06-28 10:27:00 [facility] (NA, K, CL, CO2, GLUCOSE, Medica l Branch BUN, CREATININE, CA) ETHANOL 2020-06-28 10:27:00 Danis [facility] CBC WITH DIFF 2020-06-28 10:27:00 [facility]UCOSE ([facility]OMATED) 2020-06-28 10:10:00 Rebeca Laurence Bagley versity of [facility] POCT GLUCOSE (AUTOMATED) 2020-06-28 07:00:00 Rebeca Laurence Bagley versity of [facility] POCT GLUCOSE (AUTOMATED) 2020-06-28 05:48:00 Rebeca Laurence Bagley versity of [facility] POCT GLUCOSE (AUTOMATED) 2020-06-28 04:45:00 Rebeca Laurence Uni versity of [facility] POCT GLUCOSE (AUTOMATED) 2020-06-28 03:40:00 Rebeca Valerieprice Uni versity of [facility] POCT GLUCOSE (AUTOMATED) 2020-06-28 02:43:00 [facility] POCT GLUCOSE (AUTOMATED) 2020-06-28 01:39:00 Rebeca Laurence Uni versity of [facility] POCT GLUCOSE (AUTOMATED) 2020-06-27 23:10:00 [facility] TRIGLYCERIDES 2020-06-27 23:08:00 [facility] ([facility]ATED) 2020-06-27 21:29:00 Rebeca Laurence Uni versity of [facility] POCT GLUCOSE (AUTOMATED) 2020-06-27 19:54:00 Rebeca Laurence Uni vers[facility] of [facility] POCT GLUCOSE (AUTOMATED) 2020-06-27 18:59:00 Edtere Laurence Uni versity of [facility] POCT GLUCOSE (AUTOMATED) 2020-06-27 17:42:00 Edioncal, Laurence Uni versity of [facility] POCT GLUCOSE (AUTOMATED) 2020-06-27 16:50:00 Edtere Laurence Uni versity of [facility] POCT GLUCOSE (AUTOMATED) 2020-06-27 14:43:00 Edtere Laurence Uni versity of [facility] POCT GLUCOSE (AUTOMATED) 2020-06-27 13:19:00 Rebeca Laurence Microstim versity of [facility] POCT GLUCOSE (AUTOMATED) 2020-06-27 12:18:00 Rebeca Laurence Microstim versity [facility] TRIGLYCERIDES 2020-06-27 10:20:00 [facility]IP[facility] 2020-06-27 10:20:00 [facility] BASIC METABOLIC PANEL 2020-06-27 10:20:00 Rebeca [facility] (NA, K, CL, CO2, GLUCOSE, Medica l Branch BUN, CREATININE, CA) CBC WITH DIFF 2020-06-27 10:20:00 Rebeca [facility] POCT GLUCOSE (AUTOMATED) 2020-06-27 10:06:00 Rebeca Laurence Microstim versity of [facility] POCT GLUCOSE (AUTOMATED) 2020-06-27 09:06:00 Rbeeca Order Mapperprice Microstim versity of [facility] POCT GLUCOSE (AUTOMATED) 2020-06-27 08:07:00 Rebeca Order Mapperprice [employer] versity of [facility] POCT GLUCOSE (AUTOMATED) 2020-06-27 07:09:00 Edtere Order Mapperprice Uni versity of [facility] POCT GLUCOSE (AUTOMATED) 2020-06-27 06:02:00 Edlilawe, Valeriey [facility] [place] [facility] POCT GLUCOSE (AUTOMATED) 2020-06-27 04:52:00 [...] 2020-06-27 01:15:00 Edtere, Mercy Uni versity of [place] [facility] POCT GLUCOSE (AUTOMATED) 2020-06-27 00:07:00 EdValerie carranzay Uni vers[facility] [place] [facility] POCT GLUCOSE (AUTOMATED) 2020-06-26 22:46:00 Edioncal, [facility] Uni versity [facility] [place] [facility] TRIGLYCERIDES 2020-06-26 22:07:00 Ellis Almeida [place] [facility] [place] [facility] POCT GLUCOSE (AUTOMATED) 2020-06-26 21:45:00 EdValerie carranzay Uni versity [facility] [place] [facility] POCT GLUCOSE (AUTOMATED) 2020-06-26 20:38:00 Rebeca [facility] vers[facility] [place] [facility] POCT GLUCOSE (AUTOMATED) 2020-06-26 18:13:00 Laurence Jose Uni vers[facility] [place] [facility] POCT GLUCOSE (AUTOMATED) 2020-06-26 17:03:00 Valerie Josey Uni [facility] [place] [facility] LIPASE 2020-06-26 11:15:00 Rebeca [facility] o f [place] [facility] LIPID PANEL (02011)(TOTAL 2020-06-26 11:15:00 [facility]rence [facility] [place] CHOLESTEROL, Medical Branch TRIGLYCERIDES, HDL) GLYCOSYLATED HEMOGLOBIN 2020-06-26 11:15:00 Rebeca [facility] LOW-DENSITY LIPOPROTEIN, 2020-06-26 11:15:00 Laurence Jose Uni [facility] DIRECT Medical Branch POCT GLUCOSE (AUTOMATED) 2020-06-26 11:12:00 Laurence Jose Yudi [facility] CT ABDOMEN PELVIS W 2020-06-26 04:40:39 [facility] CONTRAST [facility] ASSIGNMENT OF BENEFITS 2020-06-26 03:16:02 Doctor Unasschiquita, [facility] [place] [facility] COVID-19 (ID NOW RAPID 2020-06-26 03:12:00 Kofi Beebe [facility] TESTING) Medical Branch LAB ONLY COVID 2020-06-26 03:12:00 Kofi Beebe [facility] INTERPRETATION [facility] Branch LIPASE 2020-06-26 02:54:00 Kofi Beebe [facility] COMP. METABOLIC PANEL 2020-06-26 02:54:00 Kofi Beebe [facility] ([id number]) Medical Branch CBC WITH DIFF 2020-06-26 02:54:00 Kofi Beebe [facility] POCT GLUCOSE (AUTOMATED) 2020-06-26 02:44:00 Kofi Beebe [facility] CONSENT/REFUSAL FOR 2020-06-26 02:29:58 Doctor Rachid, [facility] DIAGNOSIS AND TREATMENT [place] [facility] EXTERNAL PROVIDER RECORDS 2020-02-09 05:01:00 Doctor Rachid, [facility] Name [facility] Encounters Start End Encounter Admission Attending Care Care Encounter Source Date/Time Date/Time Type Type Clinicians Facility Department ID 2021-10-03 Inpatient Chetan Coleman [facility] [id number] [facility] 16:00:00 68 2021-09-29 Inpatient Chetan Coleman [facility] [id number] [facility] 17:00:00 79 2021-05-11 Emergency [facility] [id number] Univers 17:56:10 ity of [facility] 2021-05-10 Emergency [facility] [id number] Univers 17:48:01 ity [facility] 2021-05-10 Emergency [facility] [id number] Univers [facility]-10-03 2021-10-03 Outpatient [facility] [id number] [facility] 16:42:00 16:42:00 68 2021-09-29 2021-09-29 Outpatient [facility] [id number] [facility] 14:17:00 14:17:00 79 2021-09-25 2021-09-25 Outpatient Elective Chetan Coleman [facility] JM [id number] [facility] 13:47:00 13:47:00 55 2021-09-25 2021-09-25 Outpatient [facility] [id number] [facility] 13:47:00 13:47:00 55 2020-11-16 2020-11-16 Emergency Nader Mendoza [facility] [id number] Univers 13:16:00 16:24:00 Shayla Pierre [id number] i ty of [place] [id number] [facility] [id number] [place] [address] Branch 2020-11-16 2020-11-16 Orders Doctor JEROME [id number] [place] [address] 00:00:00 00:00:00 Only Unassigned, KYLE [id number] ity of [place] [facility] [id number] Sergio as [id number] [facility] 009 Branch 2020-07-28 2020-07-28 Emergency [facility] [id number] [facility] 16:00:00 17:40:00 Lillian Pierre [id number] i ty of [place] [id number] [facility] [id number] [place] [address] Branch 2020-07-28 2020-07-28 Orders Doctor JEROME [id number] [facility] 00:00:00 00:00:00 Only Unassigned, KYLE [id number] ity of [place] [facility] [id number] Sergio as [id number] [facility] 009 Branch 2020-07-01 2020-07-01 Transition Sam Correa [id number] [facility] 00:00:00 00:00:00 of Care Annita Bucky [id number] i ty [place] [id number] [facility] 403 Branch 2020-07-01 2020-07-01 Transition Sam Correa [id number] 00:00:00 00:00:00 of Care Annita Bucky [id number] [place] [id number] [id number] [facility] 2020-06-25 2020-06-29 [facility] 1.2.840. 114 [id number] [facility] 20:44:00 19:29:00 Encounter Laurence Jose [id number] ity of [place] [id number] [facility] [place] [id number] [facility] [address] [place] [address] 2020-06-25 2020-06-29 [facility] 1.2.840. 114 [id number] 20:44:00 19:29:00 Encounter Laurence Jose [id number] [place] [id number] [place] [id number] [facility] 2020-06-25 2020-06-25 Orders Doctor JEROME [id number] Univers 00:00:00 00:00:00 Only Unassigned, KYLE [id number] ity of [place] [facility] [id number] Sergio as [id number] [facility] 009 Branch 2020-06-25 2020-06-25 Orders Doctor QUEENIE 1.2.840.114 [id number] 00:00:00 00:00:00 Only Unassigned, KYLE [id number] [place] [facility] [id number] [id number] 009 2020-02-09 2020-02-09 [facility] [id number] [facility] 15:04:39 15:53:06 ne Visit Cole Pierre [id number] [id number] Profess[place] [phone] Me dical [address] 2020-02-09 2020-02-09 [facility]medici [facility] 1.2.840.114 [id number] 15:04:39 15:53:06 ne Visit Cole Cohen Ignacio 350.1.13.10 [place] [id number] Professio [id number] [address] 2020-02-09 2020-02-09 [facility] [id number] [facility] 15:00:00 15:00:00 COLE medina of [facility] 2020-02-09 2020-02-09 Orders Doctor QUEENIE 1.2.840.114 [id number] [facility] 00:00:00 00:00:00 Only Unassigned, KYLE 350.1.13.10 ity of [place] [facility] 4.2.7.2.686 Sergio as [id number] [address] 2020-02-09 2020-02-09 Orders Doctor QUEENIE 1.2.840.114 [id number] 00:00:00 00:00:00 Only Unassigned, KYLE 350.1.13.10 [place] [facility] 4.2.7.2.686 [id number] [facility] 2020-02-07 2020-02-07 Telephone [facility] 1.2.840.114 [id number] [facility] 00:00:00 00:00:00 Cole Pierre 350.1.13.10 i ty [place] [id number] [place] dical [address] 2020-02-07 2020-02-07 Telephone [facility] 1.2.840.114 [id number] 00:00:00 00:00:00 Cole Pierre 350.1.13.10 [place] 4.2.7.2.686 Professio [id number] [address] Results Test Description Test Time Test Comments Results Result Comments Source Glucose Fingerstick 2021-10-03 20:01:00 Test Item Value Reference Range Interpretation Comme nts Glucose Fingerstick (test code = WGLUC) 247 mg/dL 70-115 CARDIOTHORACIC ICU RN Edenilson Santana Glucose [id number] 17:29:00 Test Item Value Reference Range Interpretation Comments Glucose Fingerstick 296 mg/dL 70-115 CARDIOTHORACIC ICU RN DANIEL (test code = WGLUC) DES T Glucose [id number] 14:49:00 Test Item Value Reference Range Interpretation Comments Glucose Fingerstick 334 mg/dL 70-115 CARDIOTHORACIC ICU RN Benton (test code = WGLUC) SvetneerajkN otify RN or MD OR MICRO [id number] 16:15:00 Test Item Value Reference Range Interpretation [...] possible exception of ORMICCULT2.1) Ceftaroline. LEFT HANDGlucose [id number] 15:52:00 Test Item Value Reference Range Interpretation Comments Glucose Fingerstick 199 mg/dL 70-115 CARDIOTHORACIC ICU RN Benton (test code = WGLUC) Svetneerajk [id number] 19:20:17 Test Item Value Reference Range Interpretation Comments APPEARANCE (test code = Clear Clear 9207251634) COLOR (test code = Mindy Yellow A 7512648038) PH (test code = 4.8-8.0 6161368071) SP GRAVITY (test code = 1.003-1.030 8279580238) GLU U QUAL (test code = 150 mg/dL Normal A 0478822149) BLOOD (test code = Negative Negative 5552225882) KETONES (test code = Negative Negative 7303565000) PROTEIN (test code = Negative Negative 2887-8) UROBILIN (test code = Normal Normal 2763062309) BILIRUBIN (test code = Negative Negative 2603259771) NITRITE (test code = Negative Negative 4381685849) LEUK BURTON (test code = Negative Negative 1955149402) RBC/HPF (test code = See_Comment [Autom ated message] 0327121543) The system Fleck generated this result transmit j luis reference range : 0 - 3 HPF. The refe rence range was not u sed to interpret th is result as normal/abnormal . WBC/HPF (test code = See_Comment [Autom ated message] 1344814967) The system Fleck generated this result transmit j luis reference range : 0 - 5 HPF. The refe rence range was not u sed to interpret th is result as normal/abnormal . BACTERIA (test code = Negative Negative 0774182283) MUCOUS (test code = Moderate Negative LPF A 2816326164) Lab Interpretation (test Abnormal code = 77806-6) [facility] 19:18:04 Test Item Value Reference Range Interpretation Comments MAGNESIUM (test code = 6528250972) 1.9 mg/dL 1.7-2.4 Lab Interpretation (test code = Normal 33302-2) [facility]. METABOLIC PANEL (63670)2020-11-16 19:17:44 Test Item Value Reference Range Interpretation Comments NA (test code = 138 mmol/L 135-145 1313861922) K (test code = 3.9 mmol/L 3.5-5.0 4767995645) CL (test code = 100 mmol/L 98-108 1189094433) CO2 TOTAL (test code = 28 mmol/L 23-31 7436965923) AGAP (test code = 2-16 6324325064) BUN (test code = 15 mg/dL 7-23 6469031923) GLUCOSE (test code = 215 mg/dL 70-110 H 4963635695) CREATININE (test code = 0.88 mg/dL 0.60-1.25 9378170725) TOTAL BILI (test code = 1.6 mg/dL 0.1-1.1 H 3905941985) CALCIUM (test code = 9.6 mg/dL 8.6-10.6 3407746144) T PROTEIN (test code = 7.4 g/dL 6.3-8.2 7371288665) ALBUMIN (test code = 4.6 g/dL 3.5-5.0 4973380576) ALK PHOS (test code = 90 U/L 34-122 7985493852) ALTv (test code = 15 U/L 5-50 1742-6) AST(SGOT) (test code = 17 U/L 13-40 8647208465) eGFR (test code = mL/min/1.73m2 3509183420) OSKAR (test code = OSKAR) Association of [...] tests). Lab Interpretation Abnormal (test code = 45493-6) [facility] 19:17:23 Test Item Value Reference Range Interpretation Comments LIPASE (test code = 6482602300) 87 U/L 0-220 Lab Interpretation (test code = Normal 81899-2) [facility] WITH [id number] 19:06:43 Test Item Value Reference Range Interpretation Comments WBC (test code = See_Comment [Automated 8790-2) message] The sy stem which generated this [...] RDW-SD (test code = 39.0 fL 38.5-51.6 15348-6) RDW-CV (test code = 13.9 % 12.1-15.4 788-0) PLT (test code = See_Comment [Automated 777-3) message] The sy stem which generated this result transmitted reference range : 150 - 328 10*3/ ?L. The reference r kristina was not used to interpret this result as normal/abnormal . MPV (test code = 9.4 fL 9.8-13.0 L 26830-3) NRBC/100 WBC (test See_Comment [Automat ed code = 3641274064) message] The system which generated this result transmitted reference range : 0.0 - 10.0 /100 WBCs. The refer ence range was not u sed to interpret th is result as normal/abnormal . NRBC x10^3 (test code <0.01 See_Comment [Auto mated = 9944880671) message] The s ystem which generated this result transmitted reference range : 10*3/?L. The reference range was not used to interpret this result as normal/abnormal . GRAN MAT (NEUT) % 79.9 % (test code = 770-8) IMM GRAN % (test code 0.60 % = 7662280778) LYMPH % (test code = 14.4 % 736-9) MONO % (test code = 3.9 % 5905-5) EOS % (test code = 0.6 % 713-8) BASO % (test code = 0.6 % 706-2) GRAN MAT x10^3(ANC) 7.25 10*3/uL 1.99-6.95 H (test code = 1462070864) IMM GRAN x10^3 (test 0.05 10*3/uL 0.00-0.06 code = 1071094450) LYMPH x10^3 (test code 1.30 10*3/uL 1.09-3.23 = 731-0) MONO x10^3 (test code 0.35 10*3/uL 0.36-1.02 L = 742-7) EOS x10^3 (test code = 0.05 10*3/uL 0.06-0.53 L 711-2) BASO x10^3 (test code 0.05 10*3/uL 0.01-0.09 = 704-7) Lab Interpretation Abnormal (test code = 25131-2) [facility] GLUCOSE (AUTOMATED)2020-11-16 18:27:21 Test Item Value Reference Range Interpretation Comments POCT GLU (test code = 0690293572) 218 mg/dL 70-110 H Lab Interpretation (test code = Abnormal 48241-1) [facility] GLUCOSE (AUTOMATED)2020-06-29 23:37:00 Test Item Value Reference Range Interpretation Comments POCT GLU (test code = 9907271939) 217 mg/dL 70-110 H Lab Interpretation (test code = Abnormal 12043-9) [facility] GLUCOSE (AUTOMATED)2020-06-29 18:58:00 Test Item Value Reference Range Interpretation Comments POCT GLU (test code = 1039671283) 214 mg/dL 70-110 H Lab Interpretation (test code = Abnormal 21977-8) [facility] GLUCOSE (AUTOMATED)2020-06-29 14:15:00 Test Item Value Reference Range Interpretation Comments POCT GLU (test code = 4542865862) 182 mg/dL 70-110 H Lab Interpretation (test code = Abnormal 75163-5) [facility] with [id number] 13:44:00 Test Item Value Reference Range Interpretation [...] (test code = 37.0 fL 38.5-51.6 L 84943-9) RDW-CV (test code = 12.2 % 12.1-15.4 788-0) PLT (test code = See_Comment L [Automated 777-3) message] The sy stem which generated this result transmitted reference range : 150 - 328 10*3/ ?L. The reference r kristina was not used to interpret this result as normal/abnormal . MPV (test code = 9.9 fL 9.8-13 53274-8) NRBC/100 WBC (test See_Comment [Automat ed code = 9173901987) message] The system which generated this result transmitted reference range : 0.0 - 10.0 /100 WBCs. The refer ence range was not u sed to interpret th is result as normal/abnormal . NRBC x10^3 (test code <0.01 See_Comment [Auto mated = 4112704909) message] The s ystem which generated this result transmitted reference range : 10*3/?L. The reference range was not used to interpret this result as normal/abnormal . GRAN MAT (NEUT) % 61.0 % (test code = 770-8) IMM GRAN % (test code 0.30 % = 1287237844) LYMPH % (test code = 29.5 % 736-9) MONO % (test code = 5.9 % 5905-5) EOS % (test code = 2.4 % 713-8) BASO % (test code = 0.9 % 706-2) GRAN MAT x10^3(ANC) 2.07 10*3/uL 1.99-6.95 (test code = 3405334455) IMM GRAN x10^3 (test <0.03 0-0.06 code = 2977858576) LYMPH x10^3 (test code 1.00 10*3/uL 1.09-3.23 L = 731-0) MONO x10^3 (test code 0.20 10*3/uL 0.36-1.02 L = 742-7) EOS x10^3 (test code = 0.08 10*3/uL 0.06-0.53 711-2) BASO x10^3 (test code 0.03 10*3/uL 0.01-0.09 = 704-7) Lab Interpretation Abnormal (test code = 86213-3) [facility] 13[facility]:00 Test Item Value Reference Range Interpretation Comments TRIG (test code = 6169388323) 468 mg/dL 30-170 H Lab Interpretation (test code = Abnormal 86149-1) [facility] (NA, K, CL, CO2, GLUCOSE, BUN, CREATININE, CA)2020-06-29 13:12:00 Test Item Value Reference Range Interpretation Comments NA (test code = 139 mmol/L 135-145 8375370966) K (test code = 3.6 mmol/L 3.5-5 8561341581) CL (test code = 104 mmol/L 98-108 5315916500) CO2 TOTAL (test code = 25 mmol/L 23-31 3580266280) AGAP (test code = 2-16 2151855748) BUN (test code = 4 mg/dL 7-23 L 0328648241) GLUCOSE (test code = 163 mg/dL 70-110 H 7262658798) CREATININE (test code = 0.74 mg/dL 0.6-1.25 4296923093) CALCIUM (test code = 9.4 mg/dL 8.6-10.6 5039691734) eGFR Calculation mL/min/1.73m2 (Non-) (test code = 1993675762) eGFR Calculation mL/min/1.73m2 () (test code = 6605849912) OSKAR (test code = OSKAR) Association of [...] tests). Lab Interpretation Abnormal (test code = 61133-4) [facility] - DRUG SCREEN [id number] 03:44:00 Test Item Value Reference Range Interpretation Comments BENZO U (test code = Presumptive Negative A 6755467143) Positive AUDREY U (test code = Negative Negative 5621816239) AMPHET (test code = Negative Negative 0972568930) THC (test code = Presumptive Negative A Confirmatio n of 0987305333) Positive Presumptive Positive THC result requires physician order . METHADONE (test code Negative Negative = 0638947463) Meth U (test code = Negative Negative 6037458547) OPIATES (test code = Presumptive Negative A 1543949523) Positive Cocaine Metabolite Negative Negative (test code = 0668203816) PROPOXY (test code = Negative Negative 2540646996) Tric U (test code = Presumptive Negative A Confirma tion of 7616717771) Positive Presumptive Positive TCA result requires physician order and this will b e sent to referen ce lab. PCP (test code = Negative Negative 5678195344) OXYCOD (test code = Negative Negative 8754745707) OSKAR (test code = Urine Drug Cutoff [...] testing). Lab Interpretation Abnormal (test code = 31888-5) [facility] 01:23:00 Test Item Value Reference Range Interpretation Comments ALCOHOL (test code = <10 mg/dL 1131902888) OSKAR (test code = OSKAR) <10 [id number] Toxic>100 Depression of STOCK HOLDER>400 Fatalities Reported [facility] GLUCOSE (AUTOMATED)2020-06-28 23:30:00 Test Item Value Reference Range Interpretation Comments POCT GLU (test code = 6964375785) 234 mg/dL 70-110 H Lab Interpretation (test code = Abnormal 25489-9) [facility] GLUCOSE (AUTOMATED)2020-06-28 19:09:00 Test Item Value Reference Range Interpretation Comments POCT GLU (test code = 6137681857) 195 mg/dL 70-110 H Lab Interpretation (test code = Abnormal 06801-4) [facility] GLUCOSE (AUTOMATED)2020-06-28 18:16:00 Test Item Value Reference Range Interpretation Comments POCT GLU (test code = 6910775189) 113 mg/dL 70-110 H Lab Interpretation (test code = Abnormal 39792-7) [facility] Test Item Value Reference Range Interpretation Comments MAGNESIUM (test code = 0769225248) 1.7 mg/dL 1.7-2.4 Lab Interpretation (test code = Normal 22338-0) [facility] GLUCOSE (AUTOMATED)2020-06-28 14:51:00 Test Item Value Reference Range Interpretation Comments POCT GLU (test code = 7738728034) 94 mg/dL 70-110 Lab Interpretation (test code = Normal 69452-1) [facility] Tmwzrsutekkd2373-94-77 14:08:00 Test Item Value Reference Range Interpretation [...] (test code = 36.2 fL 38.5-51.6 L 66733-4) RDW-CV (test code = 11.9 % 12.1-15.4 L 788-0) PLT (test code = See_Comment L [Automated 777-3) message] The sy stem which generated this result transmitted reference range : 150 - 328 10*3/ ?L. The reference r kristina was not used to interpret this result as normal/abnormal . MPV (test code = 10.0 fL 9.8-13 03402-6) NRBC/100 WBC (test See_Comment [Automat ed code = 4442604578) message] The system which generated this result transmitted reference range : 0.0 - 10.0 /100 WBCs. The refer ence range was not u sed to interpret th is result as normal/abnormal . NRBC x10^3 (test code <0.01 See_Comment [Auto mated = 1031139875) message] The s ystem which generated this result transmitted reference range : 10*3/?L. The reference range was not used to interpret this result as normal/abnormal . GRAN MAT (NEUT) % 59.7 % (test code = 770-8) IMM GRAN % (test code 0.30 % = 8678397499) LYMPH % (test code = 33.3 % 736-9) MONO % (test code = 4.8 % 5905-5) EOS % (test code = 1.3 % 713-8) BASO % (test code = 0.6 % 706-2) GRAN MAT x10^3(ANC) 1.86 10*3/uL 1.99-6.95 L (test code = 0437953678) IMM GRAN x10^3 (test <0.03 0-0.06 code = 6377966337) LYMPH x10^3 (test code 1.04 10*3/uL 1.09-3.23 L = 731-0) MONO x10^3 (test code 0.15 10*3/uL 0.36-1.02 L = 742-7) EOS x10^3 (test code = 0.04 10*3/uL 0.06-0.53 L 711-2) BASO x10^3 (test code <0.03 0.01-0.09 = 704-7) Lab Interpretation Abnormal (test code = 34958-1) [facility] Metabolic Panel (NA, K, CL, CO2, GLUCOSE, BUN, CREATININE, CA)2020-06-28 13:02:00 Test Item Value Reference Range Interpretation Comments NA (test code = 140 mmol/L 135-145 0517566163) K (test code = 3.0 mmol/L 3.5-5 L 9300122170) CL (test code = 106 mmol/L 98-108 0448853625) CO2 TOTAL (test code = 25 mmol/L 23-31 4781133907) AGAP (test code = 2-16 5646656353) BUN (test code = <2 7-23 L 0633117787) GLUCOSE (test code = 107 mg/dL 70-110 6240487269) CREATININE (test code = 0.59 mg/dL 0.6-1.25 L 6205730226) CALCIUM (test code = 8.9 mg/dL 8.6-10.6 9624513909) eGFR Calculation mL/min/1.73m2 (Non-) (test code = 5979596223) eGFR Calculation mL/min/1.73m2 () (test code = 1046688027) OSKAR (test code = OSKAR) Association of [...] tests). Lab Interpretation Abnormal (test code = 00395-5) [facility] 13:02:00 Test Item Value Reference Range Interpretation Comments TRIG (test code = 9811910556) 519 mg/dL 30-170 H Lab Interpretation (test code = Abnormal 01033-2) [facility] 12:45:00 Test Item Value Reference Range Interpretation Comments LIPASE (test code = 0021083954) 27 U/L 0-220 Lab Interpretation (test code = Normal 08801-8) [facility]2020-06-28 11:51:00 Test Item Value Reference Range Interpretation Comments POCT GLU (test code = 5502632226) 111 mg/dL 70-110 H Lab Interpretation (test code = Abnormal 65443-5) [facility] COVID [id number] 11:31:00COVID DMT InterpretationInterpretation/Recommendations: Molecular NAAT Tests for [...] COVID-19 testing the patient has had at [facility], including molecular NAAT testing (more commonly known as PCR testing and Rapid ID Now testing) and antibody testing. It does not take into account any testing that a patient has had outsid e of the [facility] medical record. [facility] LABORATORY SERVICESCOVID XnhmxjyYENV-UsF-[id number] Rapid ID NOW (no units) ? ? Date ? Value ? 06/25/2020 ? Not Detected ? [facility] LABORATORY SERVICES [facility] GLUCOSE (AUTOMATED)2020-06-28 10:16:00 Test Item Value Reference Range Interpretation Comments POCT GLU (test code = 2432019766) 109 mg/dL 70-110 Lab Interpretation (test code = Normal 50794-5) [facility] GLUCOSE (AUTOMATED)2020-06-28 09:08:00 Test Item Value Reference Range Interpretation Comments POCT GLU (test code = 4591596038) 152 mg/dL 70-110 H Lab Interpretation (test code = Abnormal 15976-0) [facility] GLUCOSE (AUTOMATED)2020-06-28 06:20:00 Test Item Value Reference Range Interpretation Comments POCT GLU (test code = 7922985540) 84 mg/dL 70-110 Lab Interpretation (test code = Normal 92214-6) [facility] GLUCOSE (AUTOMATED)2020-06-28 04:47:00 Test Item Value Reference Range Interpretation Comments POCT GLU (test code = 1309190736) 95 mg/dL 70-110 Lab Interpretation (test code = Normal 86712-4) [facility] GLUCOSE (AUTOMATED)2020-06-28 03:43:00 Test Item Value Reference Range Interpretation Comments POCT GLU (test code = 8649502736) 123 mg/dL 70-110 H Lab Interpretation (test code = Abnormal 66991-5) [facility]2020-06-28 02:47:00 Test Item Value Reference Range Interpretation Comments POCT GLU (test code = 0646220638) 121 mg/dL 70-110 H Lab Interpretation (test code = Abnormal 64167-9) [facility]2020-06-28 02:17:00 Test Item Value Reference Range Interpretation Comments POCT GLU (test code = 3238831535) 94 mg/dL 70-110 Lab Interpretation (test code = Normal 13365-0) [facility]-18 01:21:00 Test Item Value Reference Range Interpretation Comments TRIG (test code = 9936319541) 647 mg/dL 30-170 H Lab Interpretation (test code = Abnormal 80663-8) [facility] GLUCOSE (AUTOMATED)2020-06-27 23:29:00 Test Item Value Reference Range Interpretation Comments POCT GLU (test code = 1565858506) 87 mg/dL 70-110 Lab Interpretation (test code = Normal 14417-9) [facility] 21:36:00 Test Item Value Reference Range Interpretation Comments POCT GLU (test code = 2614022731) 85 mg/dL 70-110 Lab Interpretation (test code = Normal 00351-8) [facility] 19:55:00 Test Item Value Reference Range Interpretation Comments POCT GLU (test code = 8016732928) 91 mg/dL 70-110 Lab Interpretation (test code = Normal 87985-3) [facility] 19:01:00 Test Item Value Reference Range Interpretation Comments POCT GLU (test code = 8469027835) 125 mg/dL 70-110 H Lab Interpretation (test code = Abnormal 25730-5) [facility]2020-06-27 17:46:00 Test Item Value Reference Range Interpretation Comments POCT GLU (test code = 7734045317) 122 mg/dL 70-110 H Lab Interpretation (test code = Abnormal 18690-8) [facility] 16:56:00 Test Item Value Reference Range Interpretation Comments POCT GLU (test code = 3756775201) 98 mg/dL 70-110 Lab Interpretation (test code = Normal 68284-0) [facility] GLUCOSE (AUTOMATED)2020-06-27 14:47:00 Test Item Value Reference Range Interpretation Comments POCT GLU (test code = 9723482385) 209 mg/dL 70-110 H Lab Interpretation (test code = Abnormal 84798-0) [facility] GLUCOSE (AUTOMATED)2020-06-27 14:47:00 Test Item Value Reference Range Interpretation Comments POCT GLU (test code = 9002596035) 181 mg/dL 70-110 H Lab Interpretation (test code = Abnormal 11371-3) [facility] with Srxahwtwkbya7791-71-45 12:55:00 Test Item Value Reference Range Interpretation [...] (test code = 35.6 fL 38.5-51.6 L 31969-4) RDW-CV (test code = 11.8 % 12.1-15.4 L 788-0) PLT (test code = See_Comment L [Automated 777-3) message] The sy stem which generated this result transmitted reference range : 150 - 328 10*3/ ?L. The reference r kristina was not used to interpret this result as normal/abnormal . MPV (test code = 9.9 fL 9.8-13 49315-8) NRBC/100 WBC (test See_Comment [Automat ed code = 8389459788) message] The system which generated this result transmitted reference range : 0.0 - 10.0 /100 WBCs. The refer ence range was not u sed to interpret th is result as normal/abnormal . NRBC x10^3 (test code <0.01 See_Comment [Auto mated = 6265618042) message] The s ystem which generated this result transmitted reference range : 10*3/?L. The reference range was not used to interpret this result as normal/abnormal . GRAN MAT (NEUT) % 59.3 % (test code = 770-8) IMM GRAN % (test code 0.30 % = 3826818234) LYMPH % (test code = 33.7 % 736-9) MONO % (test code = 4.7 % 5905-5) EOS % (test code = 1.3 % 713-8) BASO % (test code = 0.7 % 706-2) GRAN MAT x10^3(ANC) 1.78 10*3/uL 1.99-6.95 L (test code = 4526952626) IMM GRAN x10^3 (test <0.03 0-0.06 code = 5770517547) LYMPH x10^3 (test code 1.01 10*3/uL 1.09-3.23 L = 731-0) MONO x10^3 (test code 0.14 10*3/uL 0.36-1.02 L = 742-7) EOS x10^3 (test code = 0.04 10*3/uL 0.06-0.53 L 711-2) BASO x10^3 (test code <0.03 0.01-0.09 = 704-7) Lab Interpretation Abnormal (test code = 80520-0) [facility] GLUCOSE (AUTOMATED)2020-06-27 12:26:00 Test Item Value Reference Range Interpretation Comments POCT GLU (test code = 4509912990) 238 mg/dL 70-110 H Lab Interpretation (test code = Abnormal 56894-5) [facility] GLUCOSE (AUTOMATED)2020-06-27 12:20:00 Test Item Value Reference Range Interpretation Comments POCT GLU (test code = 8891346102) 216 mg/dL 70-110 H Lab Interpretation (test code = Abnormal 01958-2) [facility] 12:03:00 Test Item Value Reference Range Interpretation Comments TRIG (test code = 8693824061) 810 mg/dL 30-170 H Lab Interpretation (test code = Abnormal 21463-4) [facility] (NA, K, CL, CO2, GLUCOSE, BUN, CREATININE, CA)2020-06-27 11:56:00 Test Item Value Reference Range Interpretation Comments NA (test code = 135 mmol/L 135-145 2899771339) K (test code = 3.6 mmol/L 3.5-5 9492265801) CL (test code = 104 mmol/L 98-108 0836241802) CO2 TOTAL (test code = 23 mmol/L 23-31 1197474161) AGAP (test code = 2-16 0597477030) BUN (test code = 5 mg/dL 7-23 L 9551344136) GLUCOSE (test code = 191 mg/dL 70-110 H 0203772752) CREATININE (test code = 0.56 mg/dL 0.6-1.25 L 7431076627) CALCIUM (test code = 8.9 mg/dL 8.6-10.6 0174767086) eGFR Calculation mL/min/1.73m2 (Non-) (test code = 2252547502) eGFR Calculation mL/min/1.73m2 () (test code = 2150243196) OSKAR (test code = OSKAR) Association of [...] tests). Lab Interpretation Abnormal (test code = 10681-1) [facility] 11:55:00 Test Item Value Reference Range Interpretation Comments LIPASE (test code = 9703103093) 40 U/L 0-220 Lab Interpretation (test code = Normal 47091-3) [facility] GLUCOSE (AUTOMATED)2020-06-27 09:09:00 Test Item Value Reference Range Interpretation Comments POCT GLU (test code = 5106589930) 185 mg/dL 70-110 H Lab Interpretation (test code = Abnormal 24810-0) [facility] GLUCOSE (AUTOMATED)2020-06-27 08:09:00 Test Item Value Reference Range Interpretation Comments POCT GLU (test code = 0852455982) 124 mg/dL 70-110 H Lab Interpretation (test code = Abnormal 14023-9) [facility] GLUCOSE (AUTOMATED)2020-06-27 07:11:00 Test Item Value Reference Range Interpretation Comments POCT GLU (test code = 4147237273) 104 mg/dL 70-110 Lab Interpretation (test code = Normal 50491-5) [facility] GLUCOSE (AUTOMATED)2020-06-27 06:04:00 Test Item Value Reference Range Interpretation Comments POCT GLU (test code = 1991743892) 97 mg/dL 70-110 Lab Interpretation (test code = Normal 13665-6) [facility] GLUCOSE (AUTOMATED)2020-06-27 04:54:00 Test Item Value Reference Range Interpretation Comments POCT GLU (test code = 4104339946) 54 mg/dL 70-110 L Lab Interpretation (test code = Abnormal 64175-4) [facility]2020-[facility]27 04:04:00 Test Item Value Reference Range Interpretation Comments POCT GLU (test code = 5347536878) 88 mg/dL 70-110 Lab Interpretation (test code = Normal 15309-7) [facility] 03:32:00 Test Item Value Reference Range Interpretation Comments POCT GLU (test code = 0357945075) 104 mg/dL 70-110 Lab Interpretation (test code = Normal 47478-2) [facility] 03:05:00 Test Item Value Reference Range Interpretation Comments POCT GLU (test code = 1103483760) 68 mg/dL 70-110 L Lab Interpretation (test code = Abnormal 83929-0) [facility] 02:05:00 Test Item Value Reference Range Interpretation Comments POCT GLU (test code = 0307383231) 113 mg/dL 70-110 H Lab Interpretation (test code = Abnormal 22733-3) [facility] 01:21:00 Test Item Value Reference Range Interpretation Comments POCT GLU (test code = 6121773299) 122 mg/dL 70-110 H Lab Interpretation (test code = Abnormal 61137-1) [facility] 00:09:00 Test Item Value Reference Range Interpretation Comments POCT GLU (test code = 1842423842) 125 mg/dL 70-110 H Lab Interpretation (test code = Abnormal 53713-5) [facility]-16 23:47:00 Test Item Value Reference Range Interpretation Comments TRIG (test code = 9246852722) 1086 mg/dL 30-170 H Lab Interpretation (test code = Abnormal 51304-9) [facility] GLUCOSE (AUTOMATED)2020-06-26 23:12:00 Test Item Value Reference Range Interpretation Comments POCT GLU (test code = 4516624160) 175 mg/dL 70-110 H Lab Interpretation (test code = Abnormal 19009-4) [facility] GLUCOSE (AUTOMATED)2020-06-26 23:12:00 Test Item Value Reference Range Interpretation Comments POCT GLU (test code = 9419981360) 81 mg/dL 70-110 Lab Interpretation (test code = Normal 61174-3) [facility] GLUCOSE (AUTOMATED)2020-06-26 22:50:00 Test Item Value Reference Range Interpretation Comments POCT GLU (test code = 2786146347) 88 mg/dL 70-110 Lab Interpretation (test code = Normal 45700-7) [facility] GLUCOSE (AUTOMATED)2020-06-26 22:26:00 Test Item Value Reference Range Interpretation Comments POCT GLU (test code = 5036447003) 91 mg/dL 70-110 Lab Interpretation (test code = Normal 22414-0) [facility] GLUCOSE (AUTOMATED)2020-06-26 17:06:00 Test Item Value Reference Range Interpretation Comments POCT GLU (test code = 1046959488) 227 mg/dL 70-110 H Lab Interpretation (test code = Abnormal 99752-9) [facility]ville[facility]-DENSITY LIPOPROTEIN, [id number] 16:31:00 Test Item Value Reference Range Interpretation Comments dLDL Chol (test code = <30 See_Comment [Aut omated message] 33235-6) The system Fleck generated this result transmitted ref erence range: <130 mg/ dL. The reference range was not used to int erpret this result as normal/abnormal . Lab Interpretation (test Normal code = 90094-5) [facility]villeLIP[facility] (25123)(TOTAL CHOLESTEROL, TRIGLYCERIDES, HDL)2020-06-26 13:16:00 Test Item Value Reference Range Interpretation Comments CHOL (test code = 217 mg/dL 120-200 H 8942501664) HDL (test code = 13 mg/dL >40 L 5032370483) HDLC RATIO (test code = See_Comment H [Au tomated message] 4685007677) The system Fleck generated this result transmit j luis reference range : <=5.0. The refe rence range was not u sed to interpret th is result as normal/abnormal . TRIG (test code = 1337 mg/dL 30-170 H 3568240663) LDL CHOL (test code = Unable to calculate 19144-4) LDL due to elev ated triglyceride le abena greater than 40 0 mg/dL. VLDL (test code = Unable to calculate 0693143311) VLDL due to yohana vated triglyceride le abena greater than 71 0 mg/dL. Lab Interpretation Abnormal (test code = 28545-6) [facility] 13:03:00 Test Item Value Reference Range Interpretation Comments LIPASE (test code = 3397371283) 60 U/L 0-220 Lab Interpretation (test code = Normal 18414-5) [facility]villeGLYCOSYLATED HEMOGLOBIN (A1C)2020-06-26 12:46:00 Test Item Value Reference Range Interpretation Comments HGB A1C (test code = 9.2 % 4-6 H 4548-4) OSKAR (test code = OSKAR) %A1C (NGSP) Interpretation (ADA)4.8-5.6 ? ? Normal or (Non-Diabetic Range)5.7-6.4 ? ? Increased Risk (Pre-Diabetic)>6.5 ?Diabetes Indicated Lab Interpretation Abnormal (test code = 70232-8) [facility] 11:24:00 Test Item Value Reference Range Interpretation Comments POCT GLU (test code = 0842403178) 209 mg/dL 70-110 H Lab Interpretation (test code = Abnormal 37559-8) [facility] ABDOMEN PELVIS W [id number] 05:55:56Impression: 1. Peripancreatic inflammation, likely representing acute [...] demonstrated in the upper abdomen. RL: 2824AFC: 31730 End of Report Exam: CT Abdomen and [...] demonstrated in the upper abdomen. RL: 2824AFC: 21580Cag of [facility] ([facility] NOW RAPID TESTING)2020-06-26 03:44:00 Test Item Value Reference Range Interpretation Comments SARS-CoV-2 Rapid ID NOW Not Detected Not Detected (test code = 79617-4) OSKAR (test code = OSKAR) ID NOW COVID-19 Assay is an isothermal nucleic acid amplification test intended for the qualitative detection of nucleic acid from SARS-CoV-2 viral RNA in nasopharyngeal (LOSS PREVENTION SPECIALIST) specimens. It is used under Emergency Use [...] indicated. Lab Interpretation Normal (test code = 06435-9) [facility]. METABOLIC PANEL (64955)2020-06-26 03:17:00 Test Item Value Reference Range Interpretation Comments NA (test code = 136 mmol/L 135-145 1857920719) K (test code = 4.3 mmol/L 3.5-5 5483582279) CL (test code = 97 mmol/L 98-108 L 9663695905) CO2 TOTAL (test code = 31 mmol/L 23-31 4579952236) AGAP (test code = 2-16 7160520990) BUN (test code = 7 mg/dL 7-23 4265671862) GLUCOSE (test code = 220 mg/dL 70-110 H 6680572649) CREATININE (test code = 0.68 mg/dL 0.6-1.25 0846975188) TOTAL BILI (test code = 1.6 mg/dL 0.1-1.1 H 4157531286) CALCIUM (test code = 9.4 mg/dL 8.6-10.6 5144964200) T PROTEIN (test code = 7.6 g/dL 6.3-8.2 1017305886) ALBUMIN (test code = 4.4 g/dL 3.5-5 1872700821) ALK PHOS (test code = 103 U/L 34-122 0628129787) ALTv (test code = 113 U/L 5-50 H 1742-6) AST(SGOT) (test code = 87 U/L 13-40 H 5143982041) eGFR Calculation mL/min/1.73m2 (Non-) (test code = 0374370486) eGFR Calculation mL/min/1.73m2 () (test code = 1188685010) OSKAR (test code = OSKAR) Association of [...] tests). Lab Interpretation Abnormal (test code = 83943-3) [facility]16:00 Test Item Value Reference Range Interpretation Comments LIPASE (test code = 9145960455) 57 U/L 0-220 Lab Interpretation (test code = Normal 22816-2) [facility] WITH [id number] 03:00:00 Test Item Value Reference Range Interpretation [...] (test code = 35.3 fL 38.5-51.6 L 97192-4) RDW-CV (test code = 11.9 % 12.1-15.4 L 788-0) PLT (test code = See_Comment L [Automated 777-3) message] The sy stem which generated this result transmitted reference range : 150 - 328 10*3/ ?L. The reference r kristina was not used to interpret this result as normal/abnormal . MPV (test code = 9.3 fL 9.8-13 L 32848-6) NRBC/100 WBC (test See_Comment [Automat ed code = 5912631699) message] The system which generated this result transmitted reference range : 0.0 - 10.0 /100 WBCs. The refer ence range was not u sed to interpret th is result as normal/abnormal . NRBC x10^3 (test code <0.01 See_Comment [Auto mated = 8957208173) message] The s ystem which generated this result transmitted reference range : 10*3/?L. The reference range was not used to interpret this result as normal/abnormal . GRAN MAT (NEUT) % 74.6 % (test code = 770-8) IMM GRAN % (test code 0.30 % = 2848621864) LYMPH % (test code = 18.7 % 736-9) MONO % (test code = 4.8 % 5905-5) EOS % (test code = 1.1 % 713-8) BASO % (test code = 0.5 % 706-2) GRAN MAT x10^3(ANC) 4.71 10*3/uL 1.99-6.95 (test code = 6440458005) IMM GRAN x10^3 (test <0.03 0-0.06 code = 3278664330) LYMPH x10^3 (test code 1.18 10*3/uL 1.09-3.23 = 731-0) MONO x10^3 (test code 0.30 10*3/uL 0.36-1.02 L = 742-7) EOS x10^3 (test code = 0.07 10*3/uL 0.06-0.53 711-2) BASO x10^3 (test code 0.03 10*3/uL 0.01-0.09 = 704-7) Lab Interpretation Abnormal (test code = 97612-5) [facility]2020-06-26 02:46:00 Test Item Value Reference Range Interpretation Comments POCT GLU (test code = 8626287352) 248 mg/dL 70-110 H Lab Interpretation (test code = Abnormal 89159-3) [facility] Notes Date/Time Note Provider Source 2021-10-03 19:14:00-00:00 [facility] [address] [place] [address] Orthopedics Operative Note Signed Patient: Alex Auguste Medical Record#: [id number] [birth year] : 1980 Acct:[id number] Age/Sex: 41 / M ADM Date: 10/03/21 Loc: [facility] Room: Report Number: [id number]: Chetan Coleman MD Orthopedic Operative Note Date of Procedure: 10/03/21 Detailed Description of Procedure: Pre Op Diagnosis: Left ring finger wound defect involving matrix S61.305D Left ring finger comminuted fracture distal phal anx with bone defect S62.635D Left small finger wound defect involving matrix S61.307D Left small finger comminuted fracture di stal phalanx with bone defect S62.637D Post Op Diagnosis:Left ring finger wound defect involving matrix S61.305D Left ring finger comminuted fracture distal phal anx with bone defect S62.635D Left small finger wound defect involving matrix S61.307D Left small finger comminuted fracture di stal phalanx with bone defect S62.637D Procedure: Left ring finger reduction pin fixation of distal phalanx fracture 30748 Left ring finger repair of [place] x [address]144 Left small finger reduction pin fixation of dis chino phalanx fracture 19771 Left small finger repair of wound [place] 99496 Surgeon: Chetan Coleman MD Anesthesia: General, see anesthetic record for d etails of method EBL: < 50 cc, none replaced Complications: none Specimens: none Implants: Maxx wires Procedure details / Findings : Reviewed cultures with the patient and asked about his antibiotic tolerance he said that he connell s equally tolerating both so he is given an extended prescription of the Bactrim to cover him as we m ove into the closed wound fixation phase of case. Intraoperatively we checked for any signs of act donaldo infection there are none including deep in the bone cleft which was given 1 final cleaning with gauze cooky packer sponges and then he still continues to fade away additional skin level dermis full-thick ness necrosis on the ulnar distal border of both digits requiring sharp blade removal leaving only w hat is clinically apparently viable willing down the wound each time did so again on both digits with the sharp blade then looking directly through the gaping fracture cleft we entered the 1st wire watc h to come out into the cleft and then reduced that to the base held compressed stabilize and ali gn in and advanced the wire retrograde pattern of the fragments such that the small can only take 1 wire but were able to put 2 in the ring except the radially entering wire literally is a hand pus hed through the bone 80% of its depth and only the final 20% was or even a role for any turning on dr ill otherwise the hand place wire through the comminution showing the friability of the fracture. After both digits were checked clinically and radiographically for correct wire placement and f racture fragment reduction closures accomplished with 5 0 chromic starting on the matrix in wr apping around to the ulnar pulp managing the defect zones on both sides to minimize in the ring will need to secondarily fill in more than the small finger will. Dressings included well-padded soft covering but a outer s hell splint for protection DISPOSITION: Patient dischar ged to home. Patient's status is stable. Patient has been given Hand [facility] 10-page instructional packet and a follow-up appointment. Patient instructed to call the pract ice number on front of packet for any questions including date and time of next encounter. Dr. Coleman has directly prescribed to patient all outpatient medications, none to be dispensed by [facility]. The sp ecific instruction at time of hospital discharge for any medications not directly prescribed for irene ent by Dr. Coleman is that patient MUST receive all directives to either take or not take those medic ations from the practitioner who has originally prescribed those medications after having talat luated and diagnosed the related medical condition(s) non hand surgery conditions that Dr. Coleman do es not evaluate or treat and thus CANNOT state to either take or not take those medications. Note that the preceding text indeed includes standardized language that accurately describes my personal methods of performi ng this procedure and is used for water quality manager reproducibly on each case including that of this individual patient with any variances or unusual findings specifically noted. Signature authenticat es the date, patient, surgeon, diagnoses and procedure but not the main body text where the quality of the voice recognition software product chosen for use is prone to substantial error. Dictated By: Chetan Coleman MD Dictated By: Signed By: Chetan Coleman MD 10/03/211953 DD/ 13 TD/TT: 10/03/211913 Measurement Analyst: LIV cc: LIV; PCPNO* Chetan Coleman MD; Pcp-Md SANDRA Barragan
--- NOTE | 2022-12-15 00:47 | ER ---
Nurse's Notes [facility] Name: Alex Auguste Age: 42 yrs Sex: Male : 1980 Arrival Date: 12/15/2022 Time: 00:37 Bed IW1 Private MD: Diagnosis: Dental caries, unspecified Presentation: 12/15 00:41 Chief complaint: Patient states: "I have left jaw pain going into my ear, it's been as6 about 3 days". Coronavirus screen: At this time, the client does not indicate any symptoms associated with coronavirus-19. Ebola Screen: No symptoms or risks identified at this time. Risk Assessment: Do you want to hurt yourself or someone else? Patient reports no desire to harm self or others. Onset of symptoms was December 12, 2022. 00:41 Method Of Arrival: Ambulatory as6 00:41 Acuity: [place] 4 as6 00:47 Initial Sepsis Screen: Does the patient meet any 2 criteria? No. Patient's initial as6 sepsis screen is negative. Does the patient have a suspected source of infection? No. Patient's initial sepsis screen is negative. Triage Assessment: 00:46 General: Appears in no apparent distress. Behavior is calm, cooperative. Pain: as6 Complains of pain in mouth and lower right second molar (#31) and lower right first molar (#30) and lower right second bicuspid (#29) and lower right first bicuspid (#28). EENT: Poor dentition noted. Reports pain in right jaw. Neuro: Level of Consciousness is awake, alert, obeys commands, Oriented to person, place, time, situation. Cardiovascular: Capillary refill < 3 seconds Patient's skin is warm and dry. Respiratory: Respiratory effort is even, unlabored, Respiratory pattern is regular, symmetrical. GI: No deficits noted. No signs and/or symptoms were reported involving the gastrointestinal system. : No deficits noted. No signs and/or symptoms were reported regarding the genitourinary system. Derm: Skin is intact, is healthy with good turgor. Musculoskeletal: No deficits noted. No signs and/or symptoms reported regarding the musculoskeletal system. Historical: - Allergies: 00:43 No Known Allergies; as6 - PMHx: 00:43 angina pectoris; Chronic Pancreatitis; Diabetes - IDDM; GERD; High Triglycerides; as6 - PSHx: 00:43 Cholecystectomy; as6 - Immunization history:: Client reports receiving the 2nd dose of the Covid vaccine, moderna. - Social history:: Smoking status: Patient reports the use of cigarette tobacco products, smokes one pack cigarettes per day. Screenin:47 [facility] ED Fall Risk Assessment (Adult) Score/Fall Risk Level 0 - 2 = Low Risk. as6 00:47 Abuse screen: Denies threats or abuse. Denies injuries from another. Nutritional as6 screening: No deficits noted. Tuberculosis screening: No symptoms or risk factors identified. Vital Signs: 00:43 BP 120 / 83; Pulse 98; Resp 18 S; Temp 98.2(TE); Pulse Ox 100% on R/A; Weight 81.65 kg as6 (R); Height 5 ft. 10 in. (R); 00:43 Body Mass Index 25.83 (81.65 kg, 177.8 cm) as6 ED Course: 00:40 Patient arrived in ED. ag3 00:41 La Arciniega FNP-C is [facility]. kb 00:41 Moises Bocanegra MD is Attending Physician. kb 00:43 Triage completed. as6 00:43 Arm band placed on. as6 00:47 Call light in reach. as6 00:48 No provider procedures requiring assistance completed. Patient did not have IV access as6 during this emergency room visit. Administered Medications: 00:53 Drug: Amoxicillin-Clavulanate PO 875 mg Route: PO; as6 00:53 Follow up: Response: No adverse reaction as6 00:53 Drug: Hydrocodone-Acetaminophen PO (7.5 mg-325 mg) 1 tabs Route: PO; as6 00:53 Follow up: Response: No adverse reaction as6 Medication: 00:47 VIS not applicable for this client. as6 Outcome: 00:47 Discharge ordered by . willow 00:53 Discharged to home ambulatory. as6 00:53 Condition: stable 00:53 Discharge instructions given to patient, Instructed on discharge instructions, follow up and referral plans. medication usage, Demonstrated understanding of instructions, follow-up care, medications, Prescriptions given X 1. 00:54 Patient left the ED. as6 Signatures: La Arciniega FNP-C FNP-Faye Grijalva ag3 Ottoniel You, RN RN as6
--- NOTE | 2022-12-15 00:47 | EDPHYS ---
Physician Documentation [facility] Name: Alex Auguste Age: 42 yrs Sex: Male : 1980 Arrival Date: 12/15/2022 Time: 00:37 Bed IW1 Private MD: ED Physician Moises Bocanegra HPI: 12/15 00:46 This 42 yrs old Male presents to ER via Ambulatory with complaints of Toothache. kb 00:46 The patient presents with pain, redness, swelling. The problem is located in the lower kb right second molar (#31) and lower right first molar (#30) and lower right second bicuspid (#29) and lower right first bicuspid (#28). Duration: The symptoms are continuous. The patient has experienced similar episodes in the past. The patient has not recently seen a physician. 00:46 Onset: The symptoms/episode began/occurred 3 day(s) ago. Modifying factors: The kb symptoms are alleviated by nothing, the symptoms are aggravated by nothing. Associated signs and symptoms: Pertinent positives: pain, redness in area, swelling. Severity of symptoms: At their worst the symptoms were moderate, in the emergency department the symptoms are unchanged. Historical: - Allergies: 00:43 No Known Allergies; as6 - PMHx: 00:43 angina pectoris; Chronic Pancreatitis; Diabetes - IDDM; GERD; High Triglycerides; as6 - PSHx: 00:43 Cholecystectomy; as6 - Immunization history:: Client reports receiving the 2nd dose of the Covid vaccine, moderna. - Social history:: Smoking status: Patient reports the use of cigarette tobacco products, smokes one pack cigarettes per day. ROS: 00:45 Constitutional: Negative for fever, chills, and weight loss. kb 00:45 ENT: Positive for dental pain. 00:45 All other systems are negative. Exam: 00:45 Constitutional: This is a well developed, well nourished patient who is awake, alert, kb and in no acute distress. Head/Face: Normocephalic, atraumatic. Cardiovascular: Regular rate and rhythm with a normal S1 and S2. No gallops, murmurs, or rubs. No pulse deficits. Respiratory: Respirations even and unlabored. No increased work of breathing. Talking in full sentences Skin: Warm, dry with normal turgor. Normal color. MS/ Extremity: Pulses equal, no cyanosis. Neurovascular intact. Full, normal range of motion. Neuro: Awake and alert, GCS 15, oriented to person, place, time, and situation. Moves all extremities. Normal gait. 00:45 ENT: Dental exam: dental caries, that is moderate, specifically in the lower right first bicuspid (#28), lower right second bicuspid (#29), lower right first molar (#30) and lower right second molar (#31), gum swelling, that is mild, specifically in the lower right first bicuspid (#28), lower right second bicuspid (#29), lower right first molar (#30) and lower right second molar (#31), pain, that is moderate, specifically in the lower right first bicuspid (#28), lower right second bicuspid (#29), lower right first molar (#30) and lower right second molar (#31). Vital Signs: 00:43 BP 120 / 83; Pulse 98; Resp 18 S; Temp 98.2(TE); Pulse Ox 100% on R/A; Weight 81.65 kg as6 (R); Height 5 ft. 10 in. (R); 00:43 Body Mass Index 25.83 (81.65 kg, 177.8 cm) as6 MDM: 00:41 Patient medically screened. kb 00:46 Differential diagnosis: dental caries, gingivitis, dental abscess. Data reviewed: vital kb signs, nurses notes. Counseling: I had a detailed discussion with the patient and/or guardian regarding: the historical points, exam findings, and any diagnostic results supporting the discharge/admit diagnosis, the need for outpatient follow up, a dentist, to return to the emergency department if symptoms worsen or persist or if there are any questions or concerns that arise at home. Administered Medications: 00:53 Drug: Amoxicillin-Clavulanate PO 875 mg Route: PO; as6 00:53 Follow up: Response: No adverse reaction as6 00:53 Drug: Hydrocodone-Acetaminophen PO (7.5 mg-325 mg) 1 tabs Route: PO; as6 00:53 Follow up: Response: No adverse reaction as6 Disposition: 03:45 Co-signature as Attending Physician, Moises Bocanegra MD I agree with the assessment sp4 and plan of care. I reviewed the patient's care provided by the Advanced Practice Provider and agree with the diagnosis and treatment plan. Disposition Summary: 12/15/22 00:47 Discharge Ordered Location: Home kb Condition: Stable kb Diagnosis - Dental caries, unspecified kb Followup: kb - With: Emergency Department - When: As needed - Reason: Worsening of condition Followup: kb - With: Private Physician - When: 2 - 3 days - Reason: Recheck today's complaints, Continuance of care, Re-evaluation by your physician Discharge Instructions: - Discharge Summary Sheet kb - Dental Caries, Adult kb Forms: - Medication Reconciliation Form kb - Thank You Letter kb - Antibiotic Education kb - Prescription Opioid Use kb Prescriptions: - Augmentin 875-125 mg Oral Tablet - take 1 tablet by ORAL route every 12 hours for 10 days; 20 tablet; Refills: 0, kb Product Selection Permitted Signatures: La Arciniega FNP-C FNP-Ckb Slawson, Ashby, RN RN as6 Moises Bocanegra MD MD sp4
[2022-12-15] MEDS ORDERED: AMOX/K CLAV 875 MG TAB ONE (00:57)
[2022-12-15] MEDS ORDERED: HYDROCODONE/APAP 7.5/325 MG TAB ONE (00:58)
[2022-12-15 02:03] VITALS: BP 120/83; TEMP 98.2; O2SAT 100
== END 2022-12-15 00:54 | disposition home or self-care (01) ==
LOC: ER 00:37
DX: K02.9 Dental caries, unspecified (principal); F17.210 Nicotine dependence, cigarettes, uncomplicated
CPT/HCPCS: 99283

== ENCOUNTER 2022-12-16 12:12 | Emergency (ER) | payer BC ==
--- OUTSIDE RECORDS SUMMARY | 2022-12-16 12:34 | XMS REPORT | Continuity of Care Document ---
:1980 [facility] Organization [facility] t Address [address] [facility] [place] [address] Care Team Providers Name Role Phone Chetan Coleman Attending Clinician Unavailable Nader Randall Attending Clinician Doctor Unassigned, [place] Attending Clinician Unavailable Lillian James R Attending Clinician Madeline MCDONNELL, Annita Huizar Attending Clinician [place] FLORES, Kofi Justice Attending Clinician Laurence Jose MD Attending Clinician Cole Guan MD Attending Clinician [place] Attending Clinician Unavailable Laurence Jose MD Admitting Clinician Payers Payer Name Policy Type Policy Number Effective Date Expiration Date S kat [facility] - [id number] 2019 00:00:00 OUT OF STATE Problems Condition [...] uncontroll 00 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, ed, 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 without without Utility complicati complicati ons [...] of 00:00: Diagnosis [place] 00 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 Utility Allergies, Adverse Reactions, Alerts Allergy Allergy Status Severity Reaction(s) Onset Inactive Treating Comm ents Source Name Type Date Date Clinician No Known DA Active [facility] 3[facility]25 Allergie 00:00: s 00 No Known DA Active U [facility] Drug 3-21 Allergie 00:00: s 00 No Known DA Active U [facility] Drug 3-17 Allergie 00:00: s 00 NO KNOWN Drug Active Univers ALLERGIE Class ity of S [facility] Social History Social Habit Start Date Stop Date Quantity Comments Source History of Snuff User [place] of tobacco use [facility] Alcohol Comment occasional Universit y of [facility] Exposure to Not sure University of SARS-CoV-2 [place] Medical (event) Branch Alcohol intake 2020-06-25 2020-06-25 Current University of 00:00:00 00:00:00 non-drinker of [facility] alcohol (finding) Branch Tobacco use and 2020-06-25 2020-06-25 Current user Univers ity of exposure 00:00:00 00:00:00 [facility] Sex Assigned At [birth year] Universit y of 00:00:00 00:00:00 [facility] Smoking Status Start Date Stop Date Source Never smoker [facility] Medications Ordered Filled Start Stop Current Ordering Indication Dosage Frequency Signature Comments Components Source Medication Medication Date Date Medication? Clinician (SIG) Name Name morpHINE 2020- No 2mg 2 mg, Slow Un cb injection 2 11-16 IV Push, ity of mg 22:00: 22:00 ONCE, 1 [place] 00 :00 dose, [facility] Medical 11/16/20 at Branch 1700, STAT predniSONE 2020- No 20mg 20 mg, Univ ers (DELTASONE) 11-16 Oral, ity of tablet 20 21:30: 20:49 ONCE, 1 [place] mg 00 :00 dose, [facility] Medical 11/16/20 at Branch 1630, ANA MARIA amoxicillin 2020- No 1{tbl} 1 tablet, Univers -clavulanat 11-16 Oral, ity of e 21:30: 20:49 ONCE, 1 [place] (AUGMENTIN) 00 :00 dose, [facility] Med ical 875-125 mg 11/16/20 at [facility] per tablet 1630, 1 tablet Routine
Reason for Anti-Infec tive: Documented Infection< br>Documen j luis Infection Site: Abdominal< br>Duratio n of Therapy: 10 days iopamidol 2020- No [id number] 100mL 100 mL, Univers (ISOVUE 11-16 Intravenou ity o f 370-500 mL) 20:45: 19:30 s, ONCE, 1 [place] injection 00 :00 dose, Sat Medic al 100 mL 11/16/20 at Branch 1545, Routine morpHINE 2020- No 4mg 4 mg, Slow Un cb injection 4 11-16 IV Push, ity of mg 20:15: 19:12 ONCE, 1 [place] 00 :00 dose, [facility] Medical 11/16/20 at Branch [...] 1,000 mL 00 :00 IV Medical Infusion, [place] ONCE, 1 dose, 11/16/20 at 1430, STAT amoxicillin 2020- Yes [id number] 1{tbl} Take 1 Univers -clavulanat 5-08 tablet by ity of e 875-125 00:00: mouth [place] mg per 00 every 12 Medical tablet (twelve) Branch hours. predniSONE Yes [id number] 1 PO BID x Univers 20 mg 5-08 4 days ity of tablet 00:00: [place] 00 Medical Branch ibuprofen 2020- No 800mg 800 mg, Uni vers (IBU) 17 -17 Oral, ity of tablet 800 23:30: 22:44 ONCE, 1 [place] mg 00 :00 dose, [place] [facility] 07/28/20 at Branch 1730, ANA MARIA Diclofenac Yes [id number] Apply to Univers Sodium 1-17 area(s) 2 ity of (VOLTAREN) 00:00: (two) [place] 1 % gel 00 times Medical daily. [place] Diclofenac Yes [id number] Apply to Univers Sodium 1-17 area(s) 2 ity of (VOLTAREN) 00:00: (two) [place] 1 % gel 00 times Medical daily. [place] Diclofenac Yes [id number] Apply to Univers Sodium 1-17 area(s) 2 ity of (VOLTAREN) 00:00: (two) [place] 1 % gel 00 times Medical daily. [place] insulin 2019-07 Yes 36U 36 Units, Unive rs glargine 2-20 Subcutaneo ity o f (LANTUS 03:00: , [facility], [place] U-100) 00 First dose Medical injection (after Branch 36 Units last modificati on) on 06/29/20 at 2100, Until Discontinu ed, Routine gemfibroziL 2019-07 Yes 600mg Take 600 U nivers 600 mg 2-20 mg by ity of tablet 01:33: mouth 2 [place] [address] (two) Medical times Branch daily before breakfast and dinner. metoprolol 2019-07 Yes 25mg Take 25 mg U nivers tartrate 25 2-20 by mouth 2 it y of mg tablet 01:33: (two) [place] [address] times Medical daily. Branch Pantoprazol 2019-07 Yes 40mg Take 40 mg Univers e 40 mg 2-20 by mouth ity of delayed-rel 01:33: daily. [place] ease 08 Medical suspension Branch busPIRone 2019-07 Yes 10mg Take 10 mg Un cb 10 mg 2-20 by mouth 2 ity of tablet 01:33: (two) [place] [address] times Medical daily. Branch niacin 500 2019-07 Yes 500mg Take 500 Un cb mg tablet 2-20 mg by ity of 01:33: mouth [place] 08 daily with Medical breakfast. Branch lipase-prot 2019-07 Yes [id number] Take Univ ers ease-amylas 2-20 36,000 ity of e (CREON) 01:33: Units by [place] 36,000-114, 08 mouth with Me dical 000- all meals. Branch 180,000 Take 2 unit CpDR capsules by mouth with meals and 1 with each snack. losartan 25 2019-07 Yes 25mg Take 25 mg Univers mg tablet 2-20 by mouth ity of 01:33: daily. [place] [address] Medical Branch vortioxetin 2019-07 Yes 10mg Take 10 mg Univers e 10 mg Tab 2-20 by mouth ity of 01:33: at [place] [address] bedtime. Medical Branch gemfibroziL 2019-07 Yes 600mg Take 600 U nivers 600 mg 2-20 mg by ity of tablet 01:33: mouth 2 [place] [address] (two) Medical times Branch daily before breakfast and dinner. metoprolol 2019-07 Yes 25mg Take 25 mg U nivers tartrate 25 2-20 by mouth 2 it y of mg tablet 01:33: (two) [place] [address] times Medical daily. Branch Pantoprazol 2019-07 Yes [...] with Medical breakfast. Branch lipase-prot 2019- Yes [id number] Take Univ ers ease-amylas 2-20 36,000 ity of e (CREON) 01:33: Units by [place] 36,000-114, 08 mouth with Me dical 000- all meals. Branch 180,000 Take 2 unit CpDR capsules by mouth with meals and 1 with each snack. losartan 25 2019- Yes 25mg Take 25 mg Univers mg tablet 2-20 by mouth ity of 01:33: daily. [place] [address] Medical Branch vortioxetin 2019- Yes 10mg Take 10 mg Univers e 10 mg Tab 2-20 by mouth ity of 01:33: at [place] [address] bedtime. Medical Branch gemfibroziL 2019- Yes 600mg Take 600 U nivers 600 mg 2-20 mg by ity of tablet 01:33: mouth 2 [place] 08 (two) Medical times Branch daily before breakfast and dinner. metoprolol 2019- Yes 25mg Take 25 mg U nivers tartrate 25 2-20 by mouth 2 it y of mg tablet 01:33: (two) [place] [address] times Medical daily. Branch Pantoprazol 2019-07 Yes 40mg Take 40 mg Univers e 40 mg 2-20 by mouth ity of delayed-rel 01:33: daily. [place] ease 08 Medical suspension Branch busPIRone 2019- Yes 10mg Take 10 mg Un cb 10 mg 2-20 by mouth 2 ity of tablet 01:33: (two) [place] [address] times Medical daily. Branch niacin 500 2019-07 Yes 500mg Take 500 Un cb mg tablet 2-20 mg by ity of 01:33: mouth [place] 08 daily with Medical breakfast. Branch lipase-prot 2019- Yes [id number] Take Univ ers ease-amylas 2-20 36,000 ity of e (CREON) 01:33: Units by [place] 36,000-114, 08 mouth with Me dical 000- all meals. Branch 180,000 Take 2 unit CpDR capsules by mouth with meals and 1 with each snack. losartan 25 2019- Yes 25mg Take 25 mg Univers mg tablet 2-20 by mouth ity of 01:33: daily. [place] [address] Medical Branch vortioxetin 2019- Yes 10mg Take 10 mg Univers e 10 mg Tab 2-20 by mouth ity of 01:33: at [place] [address] bedtime. Medical Branch gemfibroziL 2019- Yes 600mg Take 600 U nivers 600 mg 2-20 mg by ity of tablet 01:33: mouth 2 (two) Medical times [place] daily before breakfast and dinner. metoprolol 2019- Yes 25mg Take 25 mg U nivers tartrate 25 2-20 by mouth 2 it y of mg tablet 01:33: (two) [place] [address] times Medical daily. Branch Pantoprazol 2019- Yes 40mg Take 40 mg Univers e 40 mg 2-20 by mouth ity of delayed-rel 01:33: daily. [place] ease 08 Medical suspension Branch busPIRone 2019-07 Yes 10mg Take 10 mg Un cb 10 mg 2-20 by mouth 2 ity of tablet 01:33: (two) [place] [address] times Medical daily. Branch niacin 500 2019- Yes 500mg Take 500 Un cb mg tablet 2-20 mg by ity of 01:33: mouth [place] 08 daily with Medical breakfast. Branch lipase-prot 2019-07 Yes [id number] Take Univ ers ease-amylas 2-20 36,000 ity of e (CREON) 01:33: Units by [facility] s 36,000-114, 08 mouth with Me dical 000- all meals. Branch 180,000 Take 2 unit CpDR capsules by mouth with meals and 1 with each snack. losartan 25 2019-07 Yes 25mg Take 25 mg Univers mg tablet 2-20 by mouth ity of 01:33: daily. [place] [address] Medical Branch vortioxetin 2019- Yes 10mg Take 10 mg Univers e 10 mg Tab 2-20 by mouth ity of 01:33: at [place] [address] bedtime. Medical Branch gemfibroziL 2019- Yes 600mg Take 600 U nivers 600 mg 2-20 mg by ity of tablet 01:33: mouth 2 [place] [address] (two) Medical times [place] daily before breakfast and dinner. metoprolol 2019- Yes 25mg Take 25 mg U nivers tartrate 25 2-20 by mouth 2 it y of mg tablet 01:33: (two) [place] [address] times Medical daily. Branch Pantoprazol 2019- Yes [...] with Medical breakfast. Branch lipase-prot 2019- Yes [id number] Take Univ ers ease-amylas 2-20 36,000 ity of e (CREON) 01:33: Units by [place] 36,000-114, 08 mouth with Me dical 000- all meals. Branch 180,000 Take 2 unit CpDR capsules by mouth with meals and 1 with each snack. losartan 25 2019- Yes 25mg Take 25 mg Univers mg tablet 2-20 by mouth ity of 01:33: daily. [place] [address] Medical Branch vortioxetin 2019- Yes 10mg Take 10 mg Univers e 10 mg Tab 2-20 by mouth ity of 01:33: at [place] [address] bedtime. Medical Branch gemfibroziL 2019- Yes 600mg [...] with Medical breakfast. Branch lipase-prot 2019- Yes [id number] Take Univ ers ease-amylas 2-20 36,000 ity of e (CREON) 01:33: Units by [place] 36,000-114, 08 mouth with Me dical 000- all meals. Branch 180,000 Take 2 unit CpDR capsules by mouth with meals and 1 with each snack. losartan 25 2019-07 Yes 25mg Take 25 mg Univers mg tablet 2-20 by mouth ity of 01:33: daily. [place] 08 Medical Branch vortioxetin 2019-07 Yes 10mg Take 10 mg Univers e 10 mg Tab 2-20 by mouth ity of 01:33: at [place] 08 bedtime. Medical Branch insulin 2019-07 2020- No 15U 15 Units, [facility] ers glargine -06-29 Subcutaneo ity of (LANTUS 15:00: 14:07 us, ONCE, [place] U-100) 00 :00 1 dose, Medical injection Sat Branch 15 Units 06/29/20 at 0900, Routine morpHINE 2019-07 Yes 2mg 2 mg, Slow Uni vers injection 2 08-30 IV Push, ity of mg 08:15: Q6HPRN, [place] 00 Starting Medical Sat Branch 06/29/20 at 0215, Until Discontinu ed, Routine, Pain (scale 7-10) atorvastati 2019-07- No [id number] 40mg Take 1 Univers n 40 mg 08-30 tablet by ity of tablet 00:00: 05:59 mouth at [place] 00 :00 bedtime Medical for 30 Branch days. atorvastati 2019-07- No [id number] 40mg Take 1 Univers n 40 mg 08-30 tablet by ity of tablet 00:00: 05:59 mouth at [place] 00 :00 bedtime Medical for 30 Branch days. atorvastati 2019-07- No [id number] 40mg Take 1 Univers n 40 mg 08-30 tablet by ity of tablet 00:00: 05:59 mouth at [place] 00 :00 bedtime Medical for 30 Branch days. atorvastati 2019-07- No [id number] 40mg Take 1 Univers n 40 mg [...] 1 [place] mg 00 :00 dose, [facility] Medical 06/28/20 Branch at 1500, Routine FLUoxetine [...] [place] 40 mEq 00 :00 dose, [facility] Medical 06/28/20 Branch at 0830, Routine Sliding [...] dose [place] (FISH OIL) 00 on [facility] capsule 06/27/20 Branch 1,000 mg at 1400, Until Discontinu ed, Routine
Reason for non-formul cailtyn use: PATIENT CURRENTLY TAKING NONFORMULA RY PRODUCT
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 Non-formul caitlyn medication : [...] First dose [place] mg 00 on [facility] 06/26/20 Branch at 2100, Until Discontinu ed, Routine gemfibroziL 2019-07 Yes 600mg 600 mg, Un cb (LOPID) 2-17 Oral, BID, ity of tablet 600 02:00: First dose [place] mg 00 on [facility] 06/26/20 Branch at 2000, Until Discontinu ed, Routine busPIRone 2019-07 Yes 10mg 10 mg, Univer s (BUSPAR) 2-17 Oral, BID, ity o f tablet 10 02:00: First dose [place] mg 00 on [facility] 06/26/20 Branch at 2000, Until Discontinu ed, Routine enoxaparin 2019-07 Yes 40mg 40 mg, Unive rs (LOVENOX) 16 Subcutaneo ity of injection 23:00: us, DAILY, [place] 40 mg 00 First dose Medical on [facility] 06/26/20 at 1700, Until Discontinu ed, Routine morpHINE 2019-07 2020- No 4mg 4 mg, Slow Un cb injection 4 08-27 IV Push, ity of mg 16:30: 07:29 Q3HPRN, [place] 00 :00 Starting [facility] 06/26/20 at 1030, Until Padmini 06/27/20 at [...] rate based on Triglyceri de level, Starting [facility] 06/26/20 at 1016
If glucose < [...] 16:15 Q4HPRN, [place] 11 :46 Starting Medical [facility] Branch 06/26/20 at 0521, Until Wed06/26/20 at 1015, Routine, Pain (scale 7-10) NaCl 0.9% 2019-07 No 1000mL at 125 Uni vers (NS) IV 08-27 mL/hr, IV ity of infusion 08:00: 14:01 Infusion, [place] 1,000 mL 00 :34 CONTINUOUS Medic al , Starting Branch [facility] 06/26/20 at 0200, Until Wed06/26/20 at 0801, Routine dextrose 50 2019-07 No 25mL 25 mL, Uni vers % in water 08-27 Slow IV ity o f (D50W) 07:48: 13:26 Push, PRN, [place] injection 20 :23 Starting Medica l 25 mL [facility] 06/26/20 at 0148, Until Wed06/28/20 at 0726, ANA MARIA, Blood Glucose < or = 70 mg/dL and patient is unable to swallow or has mental status changes. proMETHazin 2019-07- No 25mg 25 mg, IV Univers e 08-27 Piggyback, ity of (PHENERGAN) 07:45: 07:45 ONCE, 1 [place] 25 mg in 00 :00 dose, [facility] Medica l NaCl 0.9% 06/26/20 Branch (NS) 50 mL at 0145, piggyback 50 mL FENTanyl PF 2019-07- No 100ug 100 mcg, Univers (SUBLIMAZE 08-27 Slow IV ity o f (PF)) 07:45: 06:34 Push, [place] injection 00 :00 ONCE, 1 Medical 100 mcg dose, [facility] Branch 06/26/20 at 0145, Routine morpHINE 2019-07- No 2mg 2 mg, Slow Un cb injection 2 08-27 IV Push, ity of mg 07:44: 11:21 Q4HPRN, [place] 30 :45 Starting Medical [facility] 06/26/20 at 0144, Until Wed06/26/20 at [...] :00 ONCE, 1 Medical 75 mcg dose, [facility] 06/25/20 at 2200, Routine LOVAZA, 2019-0 Yes [id number] 3g Take 3 Univ ers omega-3-aci 7-31 capsules ity of d ethyl 00:00: by mouth [place] esters, 1 00 daily. Medical [facility] Branch capsule LOVAZA, 2019-0 Yes [id number] 3g Take 3 Univ ers omega-3-aci 7-31 capsules ity of d ethyl 00:00: by mouth [place] esters, 1 00 daily. Medical [facility] Branch capsule LOVAZA, 2019-0 Yes [id number] 3g Take 3 Univ ers omega-3-aci 7-31 capsules ity of d ethyl 00:00: by mouth [place] esters, 1 00 daily. Medical [facility] Branch capsule LOVAZA, 0 Yes [id number] 3g Take 3 Univ ers omega-3-aci 7-31 capsules ity of d ethyl 00:00: by mouth [place] esters, 1 00 daily. Medical [facility] capsule LOVAZA, 2019-0 Yes [id number] 3g Take 3 Univ ers omega-3-aci 7-31 capsules ity of d ethyl 00:00: by mouth [place] esters, 1 00 daily. Medical [facility] capsule LOVAZA, 2019-0 Yes [id number] 3g Take 3 Univ ers omega-3-aci 7-31 capsules ity of d ethyl 00:00: by mouth [place] esters, 1 00 daily. Medical [facility] capsule LOVAZA, 2019-0 Yes [id number] 3g Take 3 Univ ers omega-3-aci 7-31 capsules ity of d ethyl 00:00: by mouth [place] esters, 1 00 daily. Medical [facility] capsule LOVAZA, 2019-0 Yes [id number] 3g Take 3 Univ ers omega-3-aci 7-31 capsules ity of d ethyl 00:00: by mouth [place] esters, 1 00 daily. Medical [facility] capsule ondansetron Yes [id number] 4mg Take 1 Univers (ZOFRAN 5-03 tablet by ity of ODT) 4 mg 00:00: mouth [place] disintegrat 00 every 8 Medic al ing tablet (eight) Branch hours as needed for Nausea and Vomiting (N/V). ondansetron Yes [id number] 4mg Take 1 Univers (ZOFRAN 5-03 tablet by ity of ODT) 4 mg 00:00: mouth [place] disintegrat 00 every 8 Medic al ing tablet (eight) Branch hours as needed for Nausea and Vomiting (N/V). ondansetron 2019-0 Yes [id number] 4mg Take 1 Univers (ZOFRAN 5-03 tablet by ity of ODT) 4 mg 00:00: mouth [place] disintegrat 00 every 8 Medic al ing tablet (eight) Branch hours as needed for Nausea and Vomiting (N/V). ondansetron 2019-0 Yes [id number] 4mg Take 1 Univers (ZOFRAN 5-03 tablet by ity of ODT) 4 mg 00:00: mouth [place] disintegrat 00 every 8 Medic al ing tablet (eight) Branch hours as needed for Nausea and Vomiting (N/V). ondansetron 2019-0 Yes [id number] 4mg Take 1 Univers (ZOFRAN 5-03 tablet by ity of ODT) 4 mg 00:00: mouth [place] disintegrat 00 every 8 Medic al ing tablet (eight) Branch hours as needed for Nausea and Vomiting (N/V). ondansetron 2019-0 Yes [id number] 4mg Take 1 Univers (ZOFRAN 5-03 tablet by ity of ODT) 4 mg 00:00: mouth [place] disintegrat 00 every 8 Medic al ing tablet (eight) Branch hours as needed for Nausea and Vomiting (N/V). ondansetron 2019-0 Yes [id number] 4mg Take 1 Univers (ZOFRAN 5-03 tablet by ity of ODT) 4 mg 00:00: mouth [place] disintegrat 00 every 8 Medic al ing tablet (eight) Branch hours as needed for Nausea and Vomiting (N/V). ondansetron 2019-0 Yes [id number] 4mg Take 1 Univers (ZOFRAN 5-03 tablet by ity of ODT) 4 mg 00:00: mouth [place] disintegrat 00 every 8 Medic al ing tablet (eight) Branch hours as needed for Nausea and Vomiting (N/V). ondansetron 2019-0 Yes [id number] 4mg Take 1 Univers (ZOFRAN 5-03 tablet by ity of ODT) 4 mg 00:00: mouth [place] disintegrat 00 every 8 Medic al ing tablet (eight) Branch hours as needed for Nausea and Vomiting (N/V). ondansetron Yes [id number] 4mg Take 1 Univers (ZOFRAN 5-03 tablet by ity of ODT) 4 mg 00:00: mouth [place] disintegrat 00 every 8 Medic al ing tablet (eight) Branch hours as needed for Nausea and Vomiting (N/V). Insulin Yes QID, Univers [place], 9 DX:E11.9 ity of Disposable, 00:00: [place] (BD INSULIN 00 Medical PEN NEEDLE Branch UF) 31 gauge x 5/16" Ndle Insulin Yes QID, Univers [place], 04-05 DX:E11.9 ity of Disposable, 00:00: [place] (BD INSULIN Medical PEN NEEDLE Branch UF) 31 gauge x 5/16" Ndle Insulin Yes QID, Univers [place], 04-05 DX:E11.9 ity of Disposable, 00:00: [place] (BD INSULIN Medical PEN NEEDLE Branch UF) 31 gauge x 5/16" Ndle Insulin Yes QID, Univers [place], 04-05 DX:E11.9 ity of Disposable, 00:00: [place] (BD INSULIN 00 Medical PEN NEEDLE Branch UF) 31 gauge x 5/16" Ndle Insulin Yes QID, Univers [place], 04-05 DX:E11.9 ity of Disposable, 00:00: [place] (BD INSULIN 00 Medical PEN NEEDLE Branch UF) 31 gauge x 5/16" Ndle Insulin Yes QID, Univers [place], 04-05 DX:E11.9 ity of Disposable, 00:00: [place] (BD INSULIN Medical PEN NEEDLE Branch UF) 31 gauge x 5/16" Ndle atorvastati Yes [id number] 40mg Take 1 Univers n (LIPITOR) 9-25 tablet by ity of 40 mg 00:00: mouth at [place] tablet 00 bedtime. Medical Branch LOVAZA, Yes [id number] 2g Take 2 Uni vers omega-3-aci 9-25 capsules ity of d ethyl 00:00: by mouth 2 [place] esters, 00 (two) Medical (LOVAZA) 1 times Branch gram daily capsule before breakfast and dinner. Insulin Yes QID, Univers [place], 04-05 DX:E11.9 ity of Disposable, 00:00: [place] (BD INSULIN 00 Medical PEN NEEDLE Branch UF) 31 gauge x 5/16" Ndle atorvastati Yes [id number] 40mg Take 1 Univers n (LIPITOR) 9-25 tablet by ity of 40 mg 00:00: mouth at [place] tablet [address] [facility], Yes [id number] 2g Take 2 Uni vers omega-3-aci -25 capsules ity of d ethyl 00:00: by mouth 2 [place] esters, 00 (two) Medical (LOVAZA) 1 times Branch gram daily capsule before breakfast and dinner. Insulin Yes QID, Univers [place], 04-05 DX:E11.9 ity of Disposable, 00:00: [place] (BD INSULIN 00 Medical PEN NEEDLE Branch UF) 31 gauge x 5/16" Ndle Insulin Yes QID, Univers [place], 04-05 DX:E11.9 ity of Disposable, 00:00: [place] (BD INSULIN Medical PEN NEEDLE Branch UF) 31 gauge x 5/16" Ndle Insulin Yes QID, Univers [place], 04-05 DX:E11.9 ity of Disposable, 00:00: [place] (BD INSULIN 00 Medical PEN NEEDLE Branch UF) 31 gauge x 5/16" Ndle atorvastati 2020- No [id number] 40mg Take 1 Univers n (LIPITOR) 04-05 tablet by it y of 40 mg 00:00: 00:00 mouth at [place] tablet 00 :[address] [facility], 2020- No [id number] 2g Take 2 Un cb omega-3-aci 04-05- capsules ity of d ethyl 00:00: 00:00 by mouth 2 [place] esters, 00 :00 (two) Medical (LOVAZA) 1 times Branch gram daily capsule before breakfast and dinner. insulin Yes [id number] Inject as U nivers aspart 6-20 instructed ity of (NOVOLOG 00:00: TID AC up [place] FLEXPEN) 00 to 80 Medical 100 unit/mL units Branch injection daily Insulin Yes [id number] 35U inject 35 U nivers Glargine 6-20 Units ity of (LANTUS 00:00: under the [place] SOLOSTAR) 00 skin every Medi maribeth 100 unit/mL morning. Bran ch (3 mL) injection insulin Yes [id number] Inject as U nivers aspart 6-20 instructed ity of (NOVOLOG 00:00: TID AC up [place] FLEXPEN) 00 to 80 Medical 100 unit/mL units Branch injection daily Insulin Yes [id number] 35U inject 35 U nivers Glargine 6-20 Units ity of (LANTUS 00:00: under the [place] SOLOSTAR) 00 skin every Medi maribeth 100 unit/mL morning. Bran ch (3 mL) injection insulin Yes [id number] Inject as U nivers aspart 6-20 instructed ity of (NOVOLOG 00:00: TID AC up [place] FLEXPEN) 00 to 80 Medical 100 unit/mL units Branch injection daily Insulin Yes [id number] 35U inject 35 U nivers Glargine 6-20 Units ity of (LANTUS 00:00: under the [place] SOLOSTAR) 00 skin every Medi maribeth 100 unit/mL morning. Bran ch (3 mL) injection insulin Yes [id number] Inject as U nivers aspart 6-20 instructed ity of (NOVOLOG 00:00: TID AC up [place] FLEXPEN) 00 to 80 Medical 100 unit/mL units Branch injection daily Insulin Yes [id number] 35U inject 35 U nivers Glargine 6-20 Units ity of (LANTUS 00:00: under the [place] SOLOSTAR) 00 skin every Medi maribeth 100 unit/mL morning. Bran ch (3 mL) injection insulin Yes [id number] Inject as U nivers aspart 6-20 instructed ity of (NOVOLOG 00:00: TID AC up [place] FLEXPEN) 00 to 80 Medical 100 unit/mL units Branch injection daily Insulin Yes [id number] 35U inject 35 U nivers Glargine 6-20 Units ity of (LANTUS 00:00: under the [place] SOLOSTAR) 00 skin every Medi maribeth 100 unit/mL morning. Bran ch (3 mL) injection glucagon 1 Yes [id number] Use as U nivers mg/mL SolR 6-20 instructed ity of injection 00:00: in case of [place] 00 severe Medical hypoglycem Branch ia. insulin Yes [id number] Inject as U nivers aspart 6-20 instructed ity of (NOVOLOG 00:00: TID AC up [place] FLEXPEN) 00 to 80 Medical 100 unit/mL units Branch injection daily Insulin Yes [id number] 35U inject 35 U nivers Glargine 6-20 Units ity of (LANTUS 00:00: under the [place] SOLOSTAR) 00 skin every Medi maribeth 100 unit/mL morning. Bran ch (3 mL) injection insulin Yes [id number] Inject as U nivers aspart 6-20 instructed ity of (NOVOLOG 00:00: TID AC up [place] FLEXPEN) 00 to 80 Medical 100 unit/mL units Branch injection daily Insulin Yes [id number] 35U inject 35 U nivers Glargine 6-20 Units ity of (LANTUS 00:00: under the [place] SOLOSTAR) 00 skin every Medi maribeth 100 unit/mL morning. Bran ch (3 mL) injection glucagon 1 Yes [id number] Use as U nivers mg/mL SolR 6-20 instructed ity of injection 00:[place] 00 severe Medical hypoglycem Branch ia. insulin Yes [id number] Inject as U nivers aspart 6-20 instructed ity of (NOVOLOG 00:00: [place] FLEXPEN[place] 00 to 80 Medical 100 unit/mL units Branch injection daily Insulin Yes [id number] 35U inject 35 U nivers Glargine 6-20 Units ity of (LANTUS 00:00: under the [place] SOLOSTAR) 00 skin every Medi maribeth 100 unit/mL morning. Bran ch (3 mL) injection insulin Yes [id number] Inject as U nivers aspart 6-20 instructed ity of (NOVOLOG 00:00: [place] FLEXPEN[place] 00 to 80 Medical 100 unit/mL units Branch injection daily Insulin Yes [id number] 35U inject 35 U nivers Glargine 6-20 Units ity of (LANTUS 00:00: under the [place] SOLOSTAR) 00 skin every Medi maribeth 100 unit/mL morning. Bran ch (3 mL) injection insulin Yes [id number] Inject as U nivers aspart 6-20 instructed ity of (NOVOLOG 00:00: TID [place] FLEXPEN) 00 to 80 Medical 100 unit/mL units Branch injection daily Insulin Yes [id number] 35U inject 35 U nivers Glargine 6-20 Units ity of (LANTUS 00:00: under the [place] SOLOSTAR) 00 skin every Medi maribeth 100 unit/mL morning. Bran ch (3 mL) injection glucagon 1 2020- No [id number] Use as Univers mg/mL SolR 6-20 02-08 [...] Medical capsule Branch blood sugar 2011-07 Yes [id number] before Univers diagnostic 0-05 meals and ity of (FREESTYLE 00:00: at [place] INSULINX) 00 bedtime. Medica l strip Branch blood sugar 2011-07 Yes [id number] before Univers diagnostic 0-05 meals and ity of (FREESTYLE 00:00: at [place] INSULINX) 00 bedtime. Medica l strip Branch blood sugar 2011-07 2020- No [id number] before Univers diagnostic 0-05 07-31 meals and ity of (FREESTYLE 00:00: 00:00 at [place] INSULINX) 00 :00 bedtime. Medica l strip Branch Lancets Yes [id number] Univer s (LANCETS,UL 9-24 ity of TRA THIN) 00:00: [facility] Medical Branch Lancets 2011-0 Yes [id number] Univer s (LANCETS,UL 9-24 ity of TRA THIN) 00:00: [place] [address] Medical Branch Lancets 2011-0 Yes [id number] Univer s (LANCETS,UL 9-24 ity of TRA THIN) 00:00: [place] [address] Medical Branch Lancets 2012-0 Yes [id number] Univer s (LANCETS,UL 9-24 ity of TRA THIN) 00:00: [place] [address] Medical Branch Lancets 2012-0 Yes [id number] Univer s (LANCETS,UL 9-24 ity of TRA THIN) 00:00: [place] [address] Medical Branch Lancets 2012-0 Yes [id number] Univer s (LANCETS,UL 9-24 ity of TRA THIN) 00:00: [place] [address] Medical Branch Lancets 2012-0 Yes [id number] Univer s (LANCETS,UL 9-24 ity of TRA THIN) 00:00: [place] [address] Medical Branch Lancets 2012-0 Yes [id number] Univer s (LANCETS,UL 9-24 ity of TRA THIN) 00:00: [place] [address] Medical Branch Lancets 2012-0 Yes [id number] Univer s (LANCETS,UL 9-24 ity of TRA THIN) 00:00: [place] [address] Medical Branch Lancets 2012-0 Yes [id number] Univer s (LANCETS,UL 9-24 ity of TRA THIN) 00:00: [place] [address] Medical Branch Vital Signs Vital Name Observation [...] 100 /min University of Arterial blood by [facility] Pulse oximetry Branch Body temperature 2020-11-16 18:21:00 [...] 100 /min University of Arterial blood by [facility] Pulse oximetry Branch Systolic blood 2020-06-29 22:21:00 133 mm[Hg] Univer sity of pressure [place] [facility] Diastolic blood 2020-06-29 22:21:00 81 mm[Hg] Unive rsity of pressure [facility] Heart rate 2020-06-29 22:21:00 89 /min Universi ty of [facility] Body temperature 2020-06-29 22:21:00 36.83 Dejah Univ ersity of [facility] Respiratory rate 2020-06-29 22:21:00 18 /min Univ ersity of [facility] Oxygen saturation in 2020-06-29 22:21:00 99 /min University of Arterial blood by [facility] Pulse oximetry Branch Body weight 2020-06-27 10:03:00 87.998 kg Universi ty of [facility] BMI 2020-06-27 10:03:00 27.84 kg/m2 Universi ty of [facility] Body height 2020-06-26 07:45:00 177.8 cm Universi ty of [facility] Systolic blood 2020-06-29 22:21:00 133 mm[Hg] Univer sity of pressure [facility] Diastolic blood 2020-06-29 22:21:00 81 mm[Hg] Unive rsity of pressure [facility] Heart rate 2020-06-29 22:21:00 89 /min Universi ty of [facility] Body temperature 2020-06-29 22:21:00 36.83 Dejah Univ ersity of [facility] Respiratory rate 2020-06-29 22:21:00 18 /min Univ ersity of [facility] Oxygen saturation in 2020-06-29 22:21:00 99 /min University of Arterial blood by [facility] Pulse oximetry Branch Body weight 2020-06-27 10:03:00 87.998 kg Universi ty [facility] BMI 2020-06-27 10:03:00 27.84 kg/m2 Universi ty [facility] Body height 2020-06-26 07:45:00 177.8 cm Universi ty [facility] Procedures Procedure Date / Time Performing Clinician Source Performed CT ABDOMEN PELVIS W 2020-11-16 19:40:14 Nader Mendoza [facility] LIPASE 2020-11-16 18:28:00 Nader Mendoza [facility] MAGNESIUM 2020-11-16 18:28:00 Nader Mendoza [facility] COMP. METABOLIC PANEL 2020-11-16 18:28:00 Nader Mendoza [facility] ([id number]) Medical Branch CBC WITH DIFF 2020-11-16 18:28:00 Nader Mendoza [facility] URINALYSIS 2020-11-16 18:28:00 Nader Mendoza Shayla [facility] POCT GLUCOSE (AUTOMATED) 2020-11-16 18:25:00 Nader Mendoza [facility] CONSENT/REFUSAL FOR 2020-11-16 18:14:39 Doctor Unassigned, [facility] DIAGNOSIS AND TREATMENT [place] [facility] CT CERVICAL SPINE WO 2020-07-28 22:41:56 Lillian Barr [facility] CONTRAST [facility] CT HEAD WO CONTRAST 2020-07-28 22:41:[address] [facility] NOTICE OF PRIVACY 2020-07-28 21:50:31 Doctor Unassigned, [facility] PRACTICES [place] [facility] [place] [facility] CONSENT/REFUSAL FOR 2020-07-28 21:50:20 Doctor Unassigned, [facility] DIAGNOSIS AND TREATMENT [place] [facility] POCT GLUCOSE (AUTOMATED) 2020-06-29 23:35:00 [facility]) 2020-06-29 18:04:00 Rebeca [facility] POCT GLUCOSE (AUTOMATED) 2020-06-29 13:54:00 [facility] TRIGLYCERIDES 2020-06-29 11:20:00 Ellis Almeida [facility] BASIC METABOLIC PANEL 2020-06-29 11:20:00 [facility] (NA, K, CL, CO2, GLUCOSE, Medica l Branch BUN, CREATININE, CA) CBC WITH DIFF 2020-06-29 11:20:00 [facility] - DRUG SCREEN 2020-06-29 03:10:00 Favio Moscoso [facility] TRIAGE [facility] POCT GLUCOSE (AUTOMATED) 2020-06-28 22:46:00 Rebeca [facility] POCT GLUCOSE (AUTOMATED) 2020-06-28 18:53:00 Rebeca Laurence Uni versity of [facility] POCT GLUCOSE (AUTOMATED) 2020-06-28 18:01:00 Rebeca Laurence Bagley versity of [facility] POCT GLUCOSE (AUTOMATED) 2020-06-28 13:27:00 Rebeca Laurence Bagley versity of [facility] POCT GLUCOSE (AUTOMATED) 2020-06-28 11:48:00 [facility]a [facility] TRIGLYCERIDES 2020-06-28 10:27:00 Ellis Almeida [facility] LIPASE 2020-06-28 10:27:00 Rebeca [facility] MAGNESIUM 2020-06-28 10:27:00 Danis [facility] BASIC METABOLIC PANEL 2020-06-28 10:27:00 [facility] (NA, K, CL, CO2, GLUCOSE, Medica l Branch BUN, CREATININE, CA) ETHANOL 2020-06-28 10:27:00 Danis [facility] CBC WITH DIFF 2020-06-28 10:27:00 [facility]SE (AUTOMATED) 2020-06-28 10:10:00 Rebeca Laurence Bagley versity of [facility] POCT GLUCOSE (AUTOMATED) 2020-06-28 07:00:00 Rebeca Laurence Bagley versity of [facility] POCT GLUCOSE (AUTOMATED) 2020-06-28 05:48:00 Rebeca Laurence Bagley versity of [facility] POCT GLUCOSE (AUTOMATED) 2020-06-28 04:45:00 Rebeca Laurence Uni versity of [facility] POCT GLUCOSE (AUTOMATED) 2020-06-28 03:40:00 Rebeca Valerieprice Uni versity of [facility] POCT GLUCOSE (AUTOMATED) 2020-06-28 02:43:00 [facility]a [facility] Uni versity of [facility] POCT GLUCOSE (AUTOMATED) 2020-06-28 01:39:00 Rebeca Laurence Uni versity of [facility] POCT GLUCOSE (AUTOMATED) 2020-06-27 23:10:00 [facility] Uni versity [facility] TRIGLYCERIDES 2020-06-27 23:08:00 [facility]) 2020-06-27 21:29:00 Rebeca Laurence Uni versity of [facility] POCT GLUCOSE (AUTOMATED) 2020-06-27 19:54:00 Rebeca Laurence Uni versity of [facility] POCT GLUCOSE (AUTOMATED) 2020-06-27 18:59:00 Edtere Laurence Uni versity of [facility] POCT GLUCOSE (AUTOMATED) 2020-06-27 17:42:00 Edioncal, Laurence Uni versity of [facility] POCT GLUCOSE (AUTOMATED) 2020-06-27 16:50:00 Edtere Laurence Uni versity of [facility] POCT GLUCOSE (AUTOMATED) 2020-06-27 14:43:00 Edtere Laurence Uni versity of [facility] POCT GLUCOSE (AUTOMATED) 2020-06-27 13:19:00 Rebeca Laurence [facility] versity of [facility] POCT GLUCOSE (AUTOMATED) 2020-06-27 12:18:00 Rebeca Laurence [facility] versity [facility] TRIGLYCERIDES 2020-06-27 10:20:00 [facility] 2020-06-27 10:20:00 [facility]IC METABOLIC PANEL 2020-06-27 10:20:00 Rebeca [facility] (NA, K, CL, CO2, GLUCOSE, Medica l Branch BUN, CREATININE, CA) CBC WITH DIFF 2020-06-27 10:20:00 Rebeca [facility] POCT GLUCOSE (AUTOMATED) 2020-06-27 10:06:00 Rebeca Laurence [facility] versity of [facility] POCT GLUCOSE (AUTOMATED) 2020-06-27 09:06:00 Rebeca [facility] versity of [facility] POCT GLUCOSE (AUTOMATED) 2020-06-27 08:07:00 Rebeca [facility] versity of [facility] POCT GLUCOSE (AUTOMATED) 2020-06-27 07:09:00 Edtere Soonrprice Uni versity of [facility] POCT GLUCOSE (AUTOMATED) 2020-06-27 06:02:00 Edlilawe, Valeriey Uni versity of [place] [facility] POCT GLUCOSE (AUTOMATED) 2020-06-27 04:52:00 [...] 2020-06-27 01:15:00 Edtere, [facility] versity of [place] [facility] POCT GLUCOSE (AUTOMATED) 2020-06-27 00:07:00 EdValerie carranzay Uni versity of [place] [facility] POCT GLUCOSE (AUTOMATED) 2020-06-26 22:46:00 Edioncal, [facility] Uni versity [facility] [place] [facility] TRIGLYCERIDES 2020-06-26 22:07:00 Ellis Almeida [place] [facility] [place] [facility] POCT GLUCOSE (AUTOMATED) 2020-06-26 21:45:00 EdValerie carranzay Uni versity of [place] [facility] POCT GLUCOSE (AUTOMATED) 2020-06-26 20:38:00 Rebeca [facility] versity of [place] [facility] POCT GLUCOSE (AUTOMATED) 2020-06-26 18:13:00 Laurence Jose Uni versity of [place] [facility] POCT GLUCOSE (AUTOMATED) 2020-06-26 17:03:00 Valerie Josey Uni versity of [place] [facility] LIPASE 2020-06-26 11:15:00 Rebeca [facility] [place] [facility] LIPID PANEL ([id number])(TOTAL 2020-06-26 11:15:00 Laurence Jose [facility] [place] CHOLESTEROL, Medical Branch TRIGLYCERIDES, HDL) GLYCOSYLATED HEMOGLOBIN 2020-06-26 11:15:00 [facility]beca [facility] LOW-DENSITY LIPOPROTEIN, 2020-06-26 11:15:00 Laurence Jose Uni [facility] DIRECT Medical Branch POCT GLUCOSE (AUTOMATED) 2020-06-26 11:12:00 Laurence Jose Yudi [facility] CT ABDOMEN PELVIS W 2020-06-26 04:40:39 Kofi Beebe [facility] CONTRAST [facility] ASSIGNMENT OF BENEFITS 2020-06-26 03:16:02 Doctor Unasschiquita, [facility] [place] [facility] COVID-19 (ID NOW RAPID 2020-06-26 03:12:00 Kofi Beebe [facility] TESTING) Medical Branch LAB ONLY COVID 2020-06-26 03:12:00 Kofi Beebe [facility] INTERPRETATION [facility] LIPASE 2020-06-26 02:54:00 Kofi Beebe [facility] COMP. METABOLIC PANEL 2020-06-26 02:54:00 Kofi Beebe [facility] ([id number]) Medical Branch CBC WITH DIFF 2020-06-26 02:54:00 Kofi Beebe [facility] POCT GLUCOSE (AUTOMATED) 2020-06-26 02:44:00 Kofi Beebe [facility] CONSENT/REFUSAL FOR 2020-06-26 02:29:58 Doctor Rachid, [facility] DIAGNOSIS AND TREATMENT [place] [facility] EXTERNAL PROVIDER RECORDS 2020-02-09 05:01:00 Doctor Rachid, [facility] Name [facility] Encounters Start End Encounter Admission Attending Care Care Encounter Source Date/Time Date/Time Type Type Clinicians Facility Department ID 2021-10-03 Inpatient Chetan Coleman [facility] [id number] [facility] 16:00:00 68 2021-09-29 Inpatient Chetan Coleman [facility] [id number] [facility] 17:00:00 79 2021-05-11 Emergency [facility] [id number] Univers 17:56:10 ity of [facility] 2021-05-10 Emergency [facility] [id number] Univers 17:48:01 ity [facility] 2021-05-10 Emergency [facility] [id number] Univers 11:31[facility] 2021-10-03 2021-10-03 Outpatient [facility] [id number] [facility] 16:42:00 16:42:00 68 2021-09-29 2021-09-29 Outpatient [facility] [id number] [facility] 14:17:00 14:17:00 79 2021-09-25 2021-09-25 Outpatient Elective Chetan Coleman [facility] JM [id number] 13:47:00 13:47:00 55 2021-09-25 2021-09-25 Outpatient [facility] [id number] [facility] 13:47:00 13:47:00 55 2020-11-16 2020-11-16 Emergency Nader Mendoza [facility] [id number] Univers 13:16:00 16:24:00 Shayla Pierre [id number] i ty of [place] 4.2.7.2.686 [facility] [id number] [place] [address] Branch 2020-11-16 2020-11-16 Orders Doctor JEROME [id number] [place] [address] 00:00:00 00:00:00 Only Unassigned, KYLE [id number] ity of [place] [facility] 4.2.7.2.686 Sergio as [phone] [facility] 009 Branch 2020-07-28 2020-07-28 Emergency [facility] [id number] [facility] 16:00:00 17:40:00 Lillian Pierre [id number] i ty of [place] 4.2.7.2.686 [facility] [id number] [place] [address] Branch 2020-07-28 2020-07-28 Orders Doctor JEROME [id number] [facility] 00:00:00 00:00:00 Only Unassigned, KYLE [id number] ity of [place] [facility] 4.2.7.2.686 Sergio as [phone] [facility] 009 Branch 2020-07-01 2020-07-01 Transition Sam Correa [id number] [facility] 00:00:00 00:00:00 of Care Annita Bucky [id number] i ty [place] [id number] [facility] 403 Branch 2020-07-01 2020-07-01 Transition Sam Correa [id number] 00:00:00 00:00:00 of Care Annita Bucky [id number] [place] 4.2.7.2.686 [id number] [facility] 2020-06-25 2020-06-29 [facility] 1.2.840. 114 [id number] [facility] 20:44:00 19:29:00 Encounter Laurence Jose [id number] [place]y [place] 4.2.7.2.686 [facility] [place] [id number] [facility] [address] [place] [address] 2020-06-25 2020-06-29 [facility] 1.2.840. 114 [id number] 20:44:00 19:29:00 Encounter Laurence Jose [id number] [place] 4.2.7.2.686 [place] [id number] [facility] 2020-06-25 2020-06-25 Orders Doctor JEROME 1.2.840.114 [id number] Univers 00:00:00 00:00:00 Only Unassigned, KYLE 350.1.13.10 ity of [place] [facility] 4.2.7.2.686 Sergio as [id number] [facility] 009 Branch 2020-06-25 2020-06-25 Orders Doctor QUEENIE 1.2.840.114 [id number] 00:00:00 00:00:00 Only Unassigned, KYLE 350.1.13.10 [place] [facility] 4.2.7.2.686 [id number] 009 2020-02-09 2020-02-09 [facility] [id number] [facility] 15:04:39 15:53:06 ne Visit Cole Pierre 350.1.13.10 [place] [phone] Me dical [address] 2020-02-09 2020-02-09 Telemedici [facility] 1.2.840.114 [id number] 15:04:39 15:53:06 ne Visit Cole Cohen Ignacio 350.1.13.10 [place] 4.2.7.2.686 Professio [id number] [address] 2020-02-09 2020-02-09 [facility] [id number] [facility] 15:00:00 15:00:00 COLE medina of [facility] 2020-02-09 2020-02-09 Orders Doctor QUEENIE 1.2.840.114 [id number] [facility] 00:00:00 00:00:00 Only Unassigned, KYLE 350.1.13.10 ity of [place] [facility] 4.2.7.2.686 Sergio as [phone] [address] 2020-02-09 2020-02-09 Orders Doctor QUEENIE 1.2.840.114 [id number] 00:00:00 00:00:00 Only Unassigned, KYLE 350.1.13.10 [place] [facility] 4.2.7.2.686 [id number] [facility][note 3] 2020-02-07 2020-02-07 Telephone [facility] 1.2.840.114 [id number] [facility] 00:00:00 00:00:00 Cole Pierre 350.1.13.10 [place] [phone] Nh dical [address] 2020-02-07 2020-02-07 Telephone [facility] 1.2.840.114 [id number] 00:00:00 00:00:00 Cole Pierre 350.1.13.10 [place] 4.2.7.2.686 Professio [id number] [address] Results Test Description Test Time Test Comments Results Result Comments Source Glucose Fingerstick 2021-10-03 20:01:00 Test Item Value Reference Range Interpretation Comme nts Glucose Fingerstick (test code = WGLUC) 247 mg/dL 70-115 FRAME AND SCRAP CRUSHER Edenilson Santana Glucose [id number] 17:29:00 Test Item Value Reference Range Interpretation Comments Glucose Fingerstick 296 mg/dL 70-115 FRAME AND SCRAP CRUSHER DANIEL (test code = WGLUC) DES T Glucose [id number] 14:49:00 Test Item Value Reference Range Interpretation Comments Glucose Fingerstick 334 mg/dL 70-115 FRAME AND SCRAP CRUSHER [place] (test code = WGLUC) SvetneerajkN otify RN or MD OR MICRO [id number] 16:15:00 Test Item Value Reference Range Interpretation [...] possible exception of ORMICCULT2.1) Ceftaroline. LEFT HANDGlucose [id number] 15:52:00 Test Item Value Reference Range Interpretation Comments Glucose Fingerstick 199 mg/dL 70-115 FRAME AND SCRAP CRUSHER [place] (test code = WGLUC) Svetneerajk [id number] 19:20:17 Test Item Value Reference Range Interpretation Comments APPEARANCE (test code = Clear Clear 9826301898) COLOR (test code = Mindy Yellow A 3570137409) PH (test code = 4.8-8.0 0317656490) SP GRAVITY (test code = 1.003-1.030 5785653321) GLU U QUAL (test code = 150 mg/dL Normal A 4142795836) BLOOD (test code = Negative Negative 1064618390) KETONES (test code = Negative Negative 2934482735) PROTEIN (test code = Negative Negative 2887-8) UROBILIN (test code = Normal Normal 1300117513) BILIRUBIN (test code = Negative Negative 3410283490) NITRITE (test code = Negative Negative 9461411301) LEUK BURTON (test code = Negative Negative 7589951285) RBC/HPF (test code = See_Comment [Autom ated message] 3463918843) The system [employer] generated this result transmit j luis reference range : 0 - 3 HPF. The refe rence range was not u sed to interpret th is result as normal/abnormal . WBC/HPF (test code = See_Comment [Autom ated message] 3103452072) The system [employer] generated this result transmit j luis reference range : 0 - 5 HPF. The refe rence range was not u sed to interpret th is result as normal/abnormal . BACTERIA (test code = Negative Negative 6842493493) MUCOUS (test code = Moderate Negative LPF A 0771057990) Lab Interpretation (test Abnormal code = 21164-4) [facility] 19:18:04 Test Item Value Reference Range Interpretation Comments MAGNESIUM (test code = 1960734947) 1.9 mg/dL 1.7-2.4 Lab Interpretation (test code = Normal 11467-4) [facility]. METABOLIC PANEL (30535)2020-11-16 19:17:44 Test Item Value Reference Range Interpretation Comments NA (test code = 138 mmol/L 135-145 9450947040) K (test code = 3.9 mmol/L 3.5-5.0 7288019983) CL (test code = 100 mmol/L 98-108 2229740380) CO2 TOTAL (test code = 28 mmol/L 23-31 2590898961) AGAP (test code = 2-16 2546184179) BUN (test code = 15 mg/dL 7-23 3931447170) GLUCOSE (test code = 215 mg/dL 70-110 H 6855225787) CREATININE (test code = 0.88 mg/dL 0.60-1.25 0956251783) TOTAL BILI (test code = 1.6 mg/dL 0.1-1.1 H 6926905955) CALCIUM (test code = 9.6 mg/dL 8.6-10.6 8324944438) T PROTEIN (test code = 7.4 g/dL 6.3-8.2 9553745885) ALBUMIN (test code = 4.6 g/dL 3.5-5.0 1355242946) ALK PHOS (test code = 90 U/L 34-122 5952166373) ALTv (test code = 15 U/L 5-50 1742-6) AST(SGOT) (test code = 17 U/L 13-40 5431628612) eGFR (test code = mL/min/1.73m2 1469379446) OSKAR (test code = OSKAR) Association of [...] tests). Lab Interpretation Abnormal (test code = 77606-5) [facility] 19:17:23 Test Item Value Reference Range Interpretation Comments LIPASE (test code = 8728881481) 87 U/L 0-220 Lab Interpretation (test code = Normal 99826-5) [facility] WITH [id number] 19:06:43 Test Item Value Reference Range Interpretation Comments WBC (test code = See_Comment [Automated 7090-2) message] The sy stem which generated this [...] RDW-SD (test code = 39.0 fL 38.5-51.6 02623-5) RDW-CV (test code = 13.9 % 12.1-15.4 788-0) PLT (test code = See_Comment [Automated 777-3) message] The sy stem which generated this result transmitted reference range : 150 - 328 10*3/ ?L. The reference r kristina was not used to interpret this result as normal/abnormal . MPV (test code = 9.4 fL 9.8-13.0 L 08324-7) NRBC/100 WBC (test See_Comment [Automat ed code = 0720173098) message] The system which generated this result transmitted reference range : 0.0 - 10.0 /100 WBCs. The refer ence range was not u sed to interpret th is result as normal/abnormal . NRBC x10^3 (test code <0.01 See_Comment [Auto mated = 6705030184) message] The s ystem which generated this result transmitted reference range : 10*3/?L. The reference range was not used to interpret this result as normal/abnormal . GRAN MAT (NEUT) % 79.9 % (test code = 770-8) IMM GRAN % (test code 0.60 % = 0616957063) LYMPH % (test code = 14.4 % 736-9) MONO % (test code = 3.9 % 5905-5) EOS % (test code = 0.6 % 713-8) BASO % (test code = 0.6 % 706-2) GRAN MAT x10^3(ANC) 7.25 10*3/uL 1.99-6.95 H (test code = 5401343330) IMM GRAN x10^3 (test 0.05 10*3/uL 0.00-0.06 code = 9398440044) LYMPH x10^3 (test code 1.30 10*3/uL 1.09-3.23 = 731-0) MONO x10^3 (test code 0.35 10*3/uL 0.36-1.02 L = 742-7) EOS x10^3 (test code = 0.05 10*3/uL 0.06-0.53 L 711-2) BASO x10^3 (test code 0.05 10*3/uL 0.01-0.09 = 704-7) Lab Interpretation Abnormal (test code = 37526-1) [facility] GLUCOSE (AUTOMATED)2020-11-16 18:27:21 Test Item Value Reference Range Interpretation Comments POCT GLU (test code = 0782921092) 218 mg/dL 70-110 H Lab Interpretation (test code = Abnormal 83402-9) [facility] GLUCOSE (AUTOMATED)2020-06-29 23:37:00 Test Item Value Reference Range Interpretation Comments POCT GLU (test code = 0066914970) 217 mg/dL 70-110 H Lab Interpretation (test code = Abnormal 90263-3) [facility] GLUCOSE (AUTOMATED)2020-06-29 18:58:00 Test Item Value Reference Range Interpretation Comments POCT GLU (test code = 8388359935) 214 mg/dL 70-110 H Lab Interpretation (test code = Abnormal 37580-5) [facility] GLUCOSE (AUTOMATED)2020-06-29 14:15:00 Test Item Value Reference Range Interpretation Comments POCT GLU (test code = 4915949945) 182 mg/dL 70-110 H Lab Interpretation (test code = Abnormal 91670-6) [facility] with Anroyxezhopf4378-44-18 13:44:00 Test Item Value Reference Range Interpretation [...] (test code = 37.0 fL 38.5-51.6 L 60989-4) RDW-CV (test code = 12.2 % 12.1-15.4 788-0) PLT (test code = See_Comment L [Automated 777-3) message] The sy stem which generated this result transmitted reference range : 150 - 328 10*3/ ?L. The reference r kristina was not used to interpret this result as normal/abnormal . MPV (test code = 9.9 fL 9.8-13 27479-0) NRBC/100 WBC (test See_Comment [Automat ed code = 8735254427) message] The system which generated this result transmitted reference range : 0.0 - 10.0 /100 WBCs. The refer ence range was not u sed to interpret th is result as normal/abnormal . NRBC x10^3 (test code <0.01 See_Comment [Auto mated = 9940009639) message] The s ystem which generated this result transmitted reference range : 10*3/?L. The reference range was not used to interpret this result as normal/abnormal . GRAN MAT (NEUT) % 61.0 % (test code = 770-8) IMM GRAN % (test code 0.30 % = 7628751881) LYMPH % (test code = 29.5 % 736-9) MONO % (test code = 5.9 % 5905-5) EOS % (test code = 2.4 % 713-8) BASO % (test code = 0.9 % 706-2) GRAN MAT x10^3(ANC) 2.07 10*3/uL 1.99-6.95 (test code = 0507843608) IMM GRAN x10^3 (test <0.03 0-0.06 code = 4640881053) LYMPH x10^3 (test code 1.00 10*3/uL 1.09-3.23 L = 731-0) MONO x10^3 (test code 0.20 10*3/uL 0.36-1.02 L = 742-7) EOS x10^3 (test code = 0.08 10*3/uL 0.06-0.53 711-2) BASO x10^3 (test code 0.03 10*3/uL 0.01-0.09 = 704-7) Lab Interpretation Abnormal (test code = 01425-4) [facility] 13:22:00 Test Item Value Reference Range Interpretation Comments TRIG (test code = 8882087306) 468 mg/dL 30-170 H Lab Interpretation (test code = Abnormal 35348-2) [facility] (NA, K, CL, CO2, GLUCOSE, BUN, CREATININE, CA)2020-06-29 13:12:00 Test Item Value Reference Range Interpretation Comments NA (test code = 139 mmol/L 135-145 7415632967) K (test code = 3.6 mmol/L 3.5-5 7252143322) CL (test code = 104 mmol/L 98-108 6154019312) CO2 TOTAL (test code = 25 mmol/L 23-31 6943521785) AGAP (test code = 2-16 1402969428) BUN (test code = 4 mg/dL 7-23 L 9954410606) GLUCOSE (test code = 163 mg/dL 70-110 H 2521889624) CREATININE (test code = 0.74 mg/dL 0.6-1.25 0680635573) CALCIUM (test code = 9.4 mg/dL 8.6-10.6 2739852225) eGFR Calculation mL/min/1.73m2 (Non-) (test code = 2512123910) eGFR Calculation mL/min/1.73m2 () (test code = 0931589927) OSKAR (test code = OSKAR) Association of [...] tests). Lab Interpretation Abnormal (test code = 39549-5) [facility] - DRUG SCREEN REEGXP9025-12-01 03:44:00 Test Item Value Reference Range Interpretation Comments BENZO U (test code = Presumptive Negative A 4982662333) Positive AUDREY U (test code = Negative Negative 2842107501) AMPHET (test code = Negative Negative 1490346795) THC (test code = Presumptive Negative A Confirmatio n of 2248511991) Positive Presumptive Positive THC result requires physician order . METHADONE (test code Negative Negative = 9644186148) Meth U (test code = Negative Negative 5244111391) OPIATES (test code = Presumptive Negative A 4123673535) Positive Cocaine Metabolite Negative Negative (test code = 8754356805) PROPOXY (test code = Negative Negative 8956202578) Tric U (test code = Presumptive Negative A Confirma tion of 2841576030) Positive Presumptive Positive TCA result requires physician order and this will b e sent to referen ce lab. PCP (test code = Negative Negative 4238295034) OXYCOD (test code = Negative Negative 2491295453) OSKAR (test code = Urine Drug Cutoff [...] testing). Lab Interpretation Abnormal (test code = 52990-9) [facility]2020-[facility] 01:23:00 Test Item Value Reference Range Interpretation Comments ALCOHOL (test code = <10 mg/dL 0161080624) OSKAR (test code = OSKAR) <10 Jmghbzlb41-032 Toxic>100 Depression of BURLESQUE DANCER>400 Fatalities Reported [facility] GLUCOSE (AUTOMATED)2020-06-28 23:30:00 Test Item Value Reference Range Interpretation Comments POCT GLU (test code = 8945184276) 234 mg/dL 70-110 H Lab Interpretation (test code = Abnormal 87306-9) [facility] GLUCOSE (AUTOMATED)2020-06-28 19:09:00 Test Item Value Reference Range Interpretation Comments POCT GLU (test code = 4821602538) 195 mg/dL 70-110 H Lab Interpretation (test code = Abnormal 31704-0) [facility] GLUCOSE (AUTOMATED)2020-06-28 18:16:00 Test Item Value Reference Range Interpretation Comments POCT GLU (test code = 7406849012) 113 mg/dL 70-110 H Lab Interpretation (test code = Abnormal 81963-1) [facility] Test Item Value Reference Range Interpretation Comments MAGNESIUM (test code = 4359495295) 1.7 mg/dL 1.7-2.4 Lab Interpretation (test code = Normal 63684-5) [facility] GLUCOSE (AUTOMATED)2020-06-28 14:51:00 Test Item Value Reference Range Interpretation Comments POCT GLU (test code = 0043573855) 94 mg/dL 70-110 Lab Interpretation (test code = Normal 69795-3) [facility] with Ebmqdttokcgg8996-63-64 14:08:00 Test Item Value Reference Range Interpretation [...] (test code = 36.2 fL 38.5-51.6 L 83260-0) RDW-CV (test code = 11.9 % 12.1-15.4 L 788-0) PLT (test code = See_Comment L [Automated 777-3) message] The sy stem which generated this result transmitted reference range : 150 - 328 10*3/ ?L. The reference r kristina was not used to interpret this result as normal/abnormal . MPV (test code = 10.0 fL 9.8-13 77537-1) NRBC/100 WBC (test See_Comment [Automat ed code = 0999924287) message] The system which generated this result transmitted reference range : 0.0 - 10.0 /100 WBCs. The refer ence range was not u sed to interpret th is result as normal/abnormal . NRBC x10^3 (test code <0.01 See_Comment [Auto mated = 4828219132) message] The s ystem which generated this result transmitted reference range : 10*3/?L. The reference range was not used to interpret this result as normal/abnormal . GRAN MAT (NEUT) % 59.7 % (test code = 770-8) IMM GRAN % (test code 0.30 % = 8432216173) LYMPH % (test code = 33.3 % 736-9) MONO % (test code = 4.8 % 5905-5) EOS % (test code = 1.3 % 713-8) BASO % (test code = 0.6 % 706-2) GRAN MAT x10^3(ANC) 1.86 10*3/uL 1.99-6.95 L (test code = 2424352865) IMM GRAN x10^3 (test <0.03 0-0.06 code = 9970197402) LYMPH x10^3 (test code 1.04 10*3/uL 1.09-3.23 L = 731-0) MONO x10^3 (test code 0.15 10*3/uL 0.36-1.02 L = 742-7) EOS x10^3 (test code = 0.04 10*3/uL 0.06-0.53 L 711-2) BASO x10^3 (test code <0.03 0.01-0.09 = 704-7) Lab Interpretation Abnormal (test code = 62729-3) [facility] Metabolic Panel (NA, K, CL, CO2, GLUCOSE, BUN, CREATININE, CA)2020-06-28 13:02:00 Test Item Value Reference Range Interpretation Comments NA (test code = 140 mmol/L 135-145 6473874092) K (test code = 3.0 mmol/L 3.5-5 L 1671038569) CL (test code = 106 mmol/L 98-108 4773006396) CO2 TOTAL (test code = 25 mmol/L 23-31 0920769189) AGAP (test code = 2-16 7556774898) BUN (test code = <2 7-23 L 1532069488) GLUCOSE (test code = 107 mg/dL 70-110 5783571479) CREATININE (test code = 0.59 mg/dL 0.6-1.25 L 4223613268) CALCIUM (test code = 8.9 mg/dL 8.6-10.6 2063736450) eGFR Calculation mL/min/1.73m2 (Non-) (test code = 2998695425) eGFR Calculation mL/min/1.73m2 () (test code = 3060829419) OSKAR (test code = OSKAR) Association of [...] tests). Lab Interpretation Abnormal (test code = 76324-8) [facility]TR[facility]2020-12-18 13:02:00 Test Item Value Reference Range Interpretation Comments TRIG (test code = 6514871472) 519 mg/dL 30-170 H Lab Interpretation (test code = Abnormal 49912-0) [facility]2020-12-18 12:45:00 Test Item Value Reference Range Interpretation Comments LIPASE (test code = 7304052044) 27 U/L 0-220 Lab Interpretation (test code = Normal 86152-6) [facility]PO[facility]2020-06-28 11:51:00 Test Item Value Reference Range Interpretation Comments POCT GLU (test code = 6756829156) 111 mg/dL 70-110 H Lab Interpretation (test code = Abnormal 69656-7) [facility] CampusLAB ONLY COVID KIXHVJPADKRACE5291-10-95 11:31:00COVID DMT InterpretationInterpretation/Recommendations: Molecular NAAT Tests for [...] COVID-19 testing the patient has had at [facility], including molecular NAAT testing (more commonly known as PCR testing and Rapid ID Now testing) and antibody testing. It does not take into account any testing that a patient has had outsid e of the [facility] medical record. [facility] LABORATORY SERVICESCOVID KgwunsoWGDV-CnD-4 Rapid ID NOW (no units) ? ? Date ? Value ? 06/25/2020 ? Not Detected ? [facility] LABORATORY SERVICES [facility] GLUCOSE (AUTOMATED)2020-06-28 10:16:00 Test Item Value Reference Range Interpretation Comments POCT GLU (test code = 9421270267) 109 mg/dL 70-110 Lab Interpretation (test code = Normal 79950-9) [facility] GLUCOSE (AUTOMATED)2020-06-28 09:08:00 Test Item Value Reference Range Interpretation Comments POCT GLU (test code = 1224303755) 152 mg/dL 70-110 H Lab Interpretation (test code = Abnormal 37702-7) [facility] GLUCOSE (AUTOMATED)2020-06-28 06:20:00 Test Item Value Reference Range Interpretation Comments POCT GLU (test code = 5476246239) 84 mg/dL 70-110 Lab Interpretation (test code = Normal 57178-3) [facility] GLUCOSE (AUTOMATED)2020-06-28 04:47:00 Test Item Value Reference Range Interpretation Comments POCT GLU (test code = 4170114670) 95 mg/dL 70-110 Lab Interpretation (test code = Normal 95070-6) [facility] GLUCOSE (AUTOMATED)2020-06-28 03:43:00 Test Item Value Reference Range Interpretation Comments POCT GLU (test code = 4858155726) 123 mg/dL 70-110 H Lab Interpretation (test code = Abnormal 24732-8) [facility]2020-06-28 02:47:00 Test Item Value Reference Range Interpretation Comments POCT GLU (test code = 9102046169) 121 mg/dL 70-110 H Lab Interpretation (test code = Abnormal 63945-2) [facility]2020-06-28 02:17:00 Test Item Value Reference Range Interpretation Comments POCT GLU (test code = 2949615562) 94 mg/dL 70-110 Lab Interpretation (test code = Normal 48036-0) [facility]TR[facility]2020-12-18 01:21:00 Test Item Value Reference Range Interpretation Comments TRIG (test code = 2862012156) 647 mg/dL 30-170 H Lab Interpretation (test code = Abnormal 13648-8) [facility] GLUCOSE (AUTOMATED)2020-06-27 23:29:00 Test Item Value Reference Range Interpretation Comments POCT GLU (test code = 5325590004) 87 mg/dL 70-110 Lab Interpretation (test code = Normal 13772-0) [facility] 21:36:00 Test Item Value Reference Range Interpretation Comments POCT GLU (test code = 6169085616) 85 mg/dL 70-110 Lab Interpretation (test code = Normal 60703-0) [facility]27 19:55:00 Test Item Value Reference Range Interpretation Comments POCT GLU (test code = 3155634298) 91 mg/dL 70-110 Lab Interpretation (test code = Normal 13096-6) [facility] 19:01:00 Test Item Value Reference Range Interpretation Comments POCT GLU (test code = 9510066851) 125 mg/dL 70-110 H Lab Interpretation (test code = Abnormal 68177-6) [facility]2020-06-27 17:46:00 Test Item Value Reference Range Interpretation Comments POCT GLU (test code = 9638758879) 122 mg/dL 70-110 H Lab Interpretation (test code = Abnormal 89849-7) [facility] 16:56:00 Test Item Value Reference Range Interpretation Comments POCT GLU (test code = 6454850816) 98 mg/dL 70-110 Lab Interpretation (test code = Normal 87785-6) [facility] GLUCOSE (AUTOMATED)2020-06-27 14:47:00 Test Item Value Reference Range Interpretation Comments POCT GLU (test code = 3088781783) 209 mg/dL 70-110 H Lab Interpretation (test code = Abnormal 98666-4) [facility] GLUCOSE (AUTOMATED)2020-06-27 14:47:00 Test Item Value Reference Range Interpretation Comments POCT GLU (test code = 9477036869) 181 mg/dL 70-110 H Lab Interpretation (test code = Abnormal 15078-4) [facility] with Npnpxubopqef1863-53-21 12:55:00 Test Item Value Reference Range Interpretation [...] (test code = 35.6 fL 38.5-51.6 L 74301-1) RDW-CV (test code = 11.8 % 12.1-15.4 L 788-0) PLT (test code = See_Comment L [Automated 777-3) message] The sy stem which generated this result transmitted reference range : 150 - 328 10*3/ ?L. The reference r kristina was not used to interpret this result as normal/abnormal . MPV (test code = 9.9 fL 9.8-13 33662-3) NRBC/100 WBC (test See_Comment [Automat ed code = 3690997790) message] The system which generated this result transmitted reference range : 0.0 - 10.0 /100 WBCs. The refer ence range was not u sed to interpret th is result as normal/abnormal . NRBC x10^3 (test code <0.01 See_Comment [Auto mated = 6631400893) message] The s ystem which generated this result transmitted reference range : 10*3/?L. The reference range was not used to interpret this result as normal/abnormal . GRAN MAT (NEUT) % 59.3 % (test code = 770-8) IMM GRAN % (test code 0.30 % = 3759352499) LYMPH % (test code = 33.7 % 736-9) MONO % (test code = 4.7 % 5905-5) EOS % (test code = 1.3 % 713-8) BASO % (test code = 0.7 % 706-2) GRAN MAT x10^3(ANC) 1.78 10*3/uL 1.99-6.95 L (test code = 1680632333) IMM GRAN x10^3 (test <0.03 0-0.06 code = 3091118823) LYMPH x10^3 (test code 1.01 10*3/uL 1.09-3.23 L = 731-0) MONO x10^3 (test code 0.14 10*3/uL 0.36-1.02 L = 742-7) EOS x10^3 (test code = 0.04 10*3/uL 0.06-0.53 L 711-2) BASO x10^3 (test code <0.03 0.01-0.09 = 704-7) Lab Interpretation Abnormal (test code = 46493-3) [facility] GLUCOSE (AUTOMATED)2020-06-27 12:26:00 Test Item Value Reference Range Interpretation Comments POCT GLU (test code = 2927388850) 238 mg/dL 70-110 H Lab Interpretation (test code = Abnormal 86428-0) [facility] GLUCOSE (AUTOMATED)2020-06-27 12:20:00 Test Item Value Reference Range Interpretation Comments POCT GLU (test code = 5821019364) 216 mg/dL 70-110 H Lab Interpretation (test code = Abnormal 55108-8) [facility]2020-12-17 12:03:00 Test Item Value Reference Range Interpretation Comments TRIG (test code = 3570128218) 810 mg/dL 30-170 H Lab Interpretation (test code = Abnormal 41208-8) [facility]Basic Metabolic Panel (NA, K, CL, CO2, GLUCOSE, BUN, CREATININE, CA)2020-06-27 11:56:00 Test Item Value Reference Range Interpretation Comments NA (test code = 135 mmol/L 135-145 0345387036) K (test code = 3.6 mmol/L 3.5-5 1337384259) CL (test code = 104 mmol/L 98-108 2385572236) CO2 TOTAL (test code = 23 mmol/L 23-31 4239844667) AGAP (test code = 2-16 8185376925) BUN (test code = 5 mg/dL 7-23 L 9442158228) GLUCOSE (test code = 191 mg/dL 70-110 H 9622174884) CREATININE (test code = 0.56 mg/dL 0.6-1.25 L 6102554161) CALCIUM (test code = 8.9 mg/dL 8.6-10.6 4603294934) eGFR Calculation mL/min/1.73m2 (Non-) (test code = 9143127553) eGFR Calculation mL/min/1.73m2 () (test code = 7447871599) OSKAR (test code = OSKAR) Association of [...] tests). Lab Interpretation Abnormal (test code = 74644-3) [facility]2020-[facility] 11:55:00 Test Item Value Reference Range Interpretation Comments LIPASE (test code = 5155707697) 40 U/L 0-220 Lab Interpretation (test code = Normal 34316-1) [facility] GLUCOSE (AUTOMATED)2020-06-27 09:09:00 Test Item Value Reference Range Interpretation Comments POCT GLU (test code = 8753011453) 185 mg/dL 70-110 H Lab Interpretation (test code = Abnormal 27516-4) [facility] GLUCOSE (AUTOMATED)2020-06-27 08:09:00 Test Item Value Reference Range Interpretation Comments POCT GLU (test code = 0335477872) 124 mg/dL 70-110 H Lab Interpretation (test code = Abnormal 77018-3) [facility] GLUCOSE (AUTOMATED)2020-06-27 07:11:00 Test Item Value Reference Range Interpretation Comments POCT GLU (test code = 8252569131) 104 mg/dL 70-110 Lab Interpretation (test code = Normal 81303-8) [facility] GLUCOSE (AUTOMATED)2020-06-27 06:04:00 Test Item Value Reference Range Interpretation Comments POCT GLU (test code = 4839265406) 97 mg/dL 70-110 Lab Interpretation (test code = Normal 77238-9) [facility] GLUCOSE (AUTOMATED)2020-06-27 04:54:00 Test Item Value Reference Range Interpretation Comments POCT GLU (test code = 3553914453) 54 mg/dL 70-110 L Lab Interpretation (test code = Abnormal 93625-1) [facility]2020-06-27 04:04:00 Test Item Value Reference Range Interpretation Comments POCT GLU (test code = 1747481504) 88 mg/dL 70-110 Lab Interpretation (test code = Normal 71599-9) [facility] 03:32:00 Test Item Value Reference Range Interpretation Comments POCT GLU (test code = 2578658379) 104 mg/dL 70-110 Lab Interpretation (test code = Normal 61671-0) [facility] 03:05:00 Test Item Value Reference Range Interpretation Comments POCT GLU (test code = 7317907491) 68 mg/dL 70-110 L Lab Interpretation (test code = Abnormal 19654-6) [facility] 02:05:00 Test Item Value Reference Range Interpretation Comments POCT GLU (test code = 6295536300) 113 mg/dL 70-110 H Lab Interpretation (test code = Abnormal 03144-5) [facility] 01:21:00 Test Item Value Reference Range Interpretation Comments POCT GLU (test code = 5144022164) 122 mg/dL 70-110 H Lab Interpretation (test code = Abnormal 84492-8) [facility] 00:09:00 Test Item Value Reference Range Interpretation Comments POCT GLU (test code = 6661067225) 125 mg/dL 70-110 H Lab Interpretation (test code = Abnormal 06390-8) [facility]2020-12-16 23:47:00 Test Item Value Reference Range Interpretation Comments TRIG (test code = 6277127709) 1086 mg/dL 30-170 H Lab Interpretation (test code = Abnormal 29592-9) [facility] GLUCOSE (AUTOMATED)2020-06-26 23:12:00 Test Item Value Reference Range Interpretation Comments POCT GLU (test code = 7417814402) 175 mg/dL 70-110 H Lab Interpretation (test code = Abnormal 45367-9) [facility] GLUCOSE (AUTOMATED)2020-06-26 23:12:00 Test Item Value Reference Range Interpretation Comments POCT GLU (test code = 9999329500) 81 mg/dL 70-110 Lab Interpretation (test code = Normal 46387-0) [facility] GLUCOSE (AUTOMATED)2020-06-26 22:50:00 Test Item Value Reference Range Interpretation Comments POCT GLU (test code = 6042448228) 88 mg/dL 70-110 Lab Interpretation (test code = Normal 47182-2) [facility] GLUCOSE (AUTOMATED)2020-06-26 22:26:00 Test Item Value Reference Range Interpretation Comments POCT GLU (test code = 7187744872) 91 mg/dL 70-110 Lab Interpretation (test code = Normal 39343-7) [facility] GLUCOSE (AUTOMATED)2020-06-26 17:06:00 Test Item Value Reference Range Interpretation Comments POCT GLU (test code = 0461977985) 227 mg/dL 70-110 H Lab Interpretation (test code = Abnormal 10974-6) [facility] CampusLOW-DENSITY LIPOPROTEIN, SUIDXU1088-28-06 16:31:00 Test Item Value Reference Range Interpretation Comments dLDL Chol (test code = <30 See_Comment [Aut omated message] 40263-7) The system [employer] generated this result transmitted ref erence range: <130 mg/ dL. The reference range was not used to int erpret this result as normal/abnormal . Lab Interpretation (test Normal code = 00470-0) [facility] CampusLIPID PANEL (10120)(TOTAL CHOLESTEROL, TRIGLYCERIDES, HDL)2020-06-26 13:16:00 Test Item Value Reference Range Interpretation Comments CHOL (test code = 217 mg/dL 120-200 H 9283020141) HDL (test code = 13 mg/dL >40 L 9588138443) HDLC RATIO (test code = See_Comment H [Au tomated message] 3736483073) The system [employer] generated this result transmit j luis reference range : <=5.0. The refe rence range was not u sed to interpret th is result as normal/abnormal . TRIG (test code = 1337 mg/dL 30-170 H 0630549994) LDL CHOL (test code = Unable to calculate 37530-9) LDL due to elev ated triglyceride le abena greater than 40 0 mg/dL. VLDL (test code = Unable to calculate 4955914621) VLDL due to yohana vated triglyceride le abena greater than 71 0 mg/dL. Lab Interpretation Abnormal (test code = 73611-8) [facility]2020-12-16 13:03:00 Test Item Value Reference Range Interpretation Comments LIPASE (test code = 7984507282) 60 U/L 0-220 Lab Interpretation (test code = Normal 92622-9) [facility] CampusGLYCOSYLATED HEMOGLOBIN (A1C)2020-06-26 12:46:00 Test Item Value Reference Range Interpretation Comments HGB A1C (test code = 9.2 % 4-6 H 4548-4) OSKAR (test code = OSKAR) %A1C (NGSP) Interpretation (ADA)4.8-5.6 ? ? Normal or (Non-Diabetic Range)5.7-6.4 ? ? Increased Risk (Pre-Diabetic)>6.5 ?Diabetes Indicated Lab Interpretation Abnormal (test code = 45643-3) [facility])2020-06-26 11:24:00 Test Item Value Reference Range Interpretation Comments POCT GLU (test code = 3123819385) 209 mg/dL 70-110 H Lab Interpretation (test code = Abnormal 39747-8) [facility] ABDOMEN PELVIS W AUYUBCDP3735-19-72 05:55:56Impression: 1. Peripancreatic inflammation, likely representing acute [...] demonstrated in the upper abdomen. RL: 2824AFC: [id number] End of Report Exam: CT Abdomen and [...] demonstrated in the upper abdomen. RL: 2824AFC: 96835Sfy of Report [facility] (ID NOW RAPID TESTING)2020-06-26 03:44:00 Test Item Value Reference Range Interpretation Comments SARS-CoV-2 Rapid ID NOW Not Detected Not Detected (test code = 88321-2) OSKAR (test code = OSKAR) ID NOW COVID-19 Assay is an isothermal nucleic acid amplification test intended for the qualitative detection of nucleic acid from SARS-CoV-2 viral RNA in nasopharyngeal ([employer] APPLIANCES SERVICE TECHNICIAN) specimens. It is used under Emergency Use [...] indicated. Lab Interpretation Normal (test code = 70993-1) [facility]. METABOLIC PANEL (43655)2020-06-26 03:17:00 Test Item Value Reference Range Interpretation Comments NA (test code = 136 mmol/L 135-145 8777597654) K (test code = 4.3 mmol/L 3.5-5 2785896209) CL (test code = 97 mmol/L 98-108 L 7856017209) CO2 TOTAL (test code = 31 mmol/L 23-31 7953827843) AGAP (test code = 2-16 9262657612) BUN (test code = 7 mg/dL 7-23 0715111998) GLUCOSE (test code = 220 mg/dL 70-110 H 1145139479) CREATININE (test code = 0.68 mg/dL 0.6-1.25 3279189987) TOTAL BILI (test code = 1.6 mg/dL 0.1-1.1 H 1841959701) CALCIUM (test code = 9.4 mg/dL 8.6-10.6 8074024979) T PROTEIN (test code = 7.6 g/dL 6.3-8.2 2360810462) ALBUMIN (test code = 4.4 g/dL 3.5-5 5738188180) ALK PHOS (test code = 103 U/L 34-122 5452525079) ALTv (test code = 113 U/L 5-50 H 1742-6) AST(SGOT) (test code = 87 U/L 13-40 H 4334800566) eGFR Calculation mL/min/1.73m2 (Non-) (test code = 0404384214) eGFR Calculation mL/min/1.73m2 () (test code = 8155557412) OSKAR (test code = OSKAR) Association of [...] tests). Lab Interpretation Abnormal (test code = 50458-6) [facility] Test Item Value Reference Range Interpretation Comments LIPASE (test code = 7721094975) 57 U/L 0-220 Lab Interpretation (test code = Normal 18523-1) [facility] WITH [id number] 03:00:00 Test Item Value Reference Range Interpretation [...] (test code = 35.3 fL 38.5-51.6 L 98476-7) RDW-CV (test code = 11.9 % 12.1-15.4 L 788-0) PLT (test code = See_Comment L [Automated 777-3) message] The sy stem which generated this result transmitted reference range : 150 - 328 10*3/ ?L. The reference r kristina was not used to interpret this result as normal/abnormal . MPV (test code = 9.3 fL 9.8-13 L 60444-7) NRBC/100 WBC (test See_Comment [Automat ed code = 3038376605) message] The system which generated this result transmitted reference range : 0.0 - 10.0 /100 WBCs. The refer ence range was not u sed to interpret th is result as normal/abnormal . NRBC x10^3 (test code <0.01 See_Comment [Auto mated = 7931344474) message] The s ystem which generated this result transmitted reference range : 10*3/?L. The reference range was not used to interpret this result as normal/abnormal . GRAN MAT (NEUT) % 74.6 % (test code = 770-8) IMM GRAN % (test code 0.30 % = 7406813995) LYMPH % (test code = 18.7 % 736-9) MONO % (test code = 4.8 % 5905-5) EOS % (test code = 1.1 % 713-8) BASO % (test code = 0.5 % 706-2) GRAN MAT x10^3(ANC) 4.71 10*3/uL 1.99-6.95 (test code = 8010805547) IMM GRAN x10^3 (test <0.03 0-0.06 code = 4316173023) LYMPH x10^3 (test code 1.18 10*3/uL 1.09-3.23 = 731-0) MONO x10^3 (test code 0.30 10*3/uL 0.36-1.02 L = 742-7) EOS x10^3 (test code = 0.07 10*3/uL 0.06-0.53 711-2) BASO x10^3 (test code 0.03 10*3/uL 0.01-0.09 = 704-7) Lab Interpretation Abnormal (test code = 82017-9) [facility]2020-06-26 02:46:00 Test Item Value Reference Range Interpretation Comments POCT GLU (test code = 0943009846) 248 mg/dL 70-110 H Lab Interpretation (test code = Abnormal 65272-3) [facility] Notes Date/Time Note Provider Source 2021-10-03 19:14:00-00:00 [facility] [address] [place] [address] Orthopedics Operative Note Signed Patient: Alex Auguste Medical Record#: [id number] [birth year] : 1980 Acct:[id number] Age/Sex: 41 / M ADM Date: 10/03/21 Loc: [facility] Room: Report Number: [id number]: Chetan Coleman MD Orthopedic Operative [...] reduction pin fixation of distal phalanx fracture 83126 Left ring [place] [address]274 Left small finger reduction pin fixation of dis chino phalanx fracture 71180 Left small finger repair of [place] [id number] Surgeon: Chetan Coleman MD Anesthesia: General, see [...] was given 1 final cleaning with gauze packer insulation sponges and then he still continues to [...] Patient has been given Hand and Wrist [facility] 10-page instructional packet and a follow-up appointment. Patient instructed to call the pract ice number on front of packet for any questions including date and time of next encounter. Dr. Coleman has directly prescribed to patient all outpatient medications, none to be dispensed by [facility]. The sp ecific instruction at time of [...] ng this procedure and is used for quality consultant reproducibly on each case including that of [...] Coleman MD 10/03/211953 DD/ 13 TD/TT: 10/03/211913 Wildlife Conservation Professor: LIV cc: LIV; PCPNO* Chetan Coleman MD; Pcp-Md SANDRA Barragan
[2022-12-16] MEDS ORDERED: ONDANSETRON 4 MG/2 ML VIAL ONE (12:38)
[2022-12-16] MEDS ORDERED: FAMOTIDINE 20 MG/2 ML VIAL IV ONE (12:38)
[2022-12-16] MEDS ORDERED: NA CHLORIDE 0.9% 1,000 ML ONE (12:38)
[2022-12-16] MEDS ORDERED: MORPHINE 4 MG/ML SYR ONE (12:38)
[2022-12-16] MEDS ORDERED: PROMETHAZINE INJ 25 MG/ML AMP ONE ×2 (12:39→13:30)
[2022-12-16 12:51] LABS: Absolute Lymphocytes (CBC) 0.7 K/uL (0.7-4.9); Hematocrit 49.1 % (39.6-49.0); Lymphocytes % 8.5 % (15.3-44.8); MCV 84.9 fL (80-100); MPV 7.3 fL (7.6-11.3); RBC Red Blood Cell Count 5.79 M/uL (4.33-5.43)
[2022-12-16 13:05] LABS: Albumin 4.3 g/dL (3.4-5.0); Bilirubin Total 3.4 mg/dL (0.2-1.0); Potassium 3.9 mEq/L (3.5-5.1); Protein, Total 7.9 g/dL (6.4-8.2)
[2022-12-16] MEDS ORDERED: HYDROMORPHONE HCL 1 MG/ML INJ ONE (13:30)
--- NOTE | 2022-12-16 14:26 | RAD REPORT ---
EXAM DESCRIPTION: CT - Abdomen Pelvis W Contrast - 12/16/2022 1:32 pm CLINICAL HISTORY: hx of pancreatitis;Abd pain COMPARISON: Abdomen Pelvis W Contrast dated 09/10/2022; Abdomen Pelvis W Contrast dated 01/07/2022; Abdomen Pelvis W Contrast dated 06/24/2020; Abdomen Pelvis W Contrast dated 01/09/2020 TECHNIQUE: Thin cut axial CT imaging of the abdomen and pelvis was performed following intravenous a dministration of 100 mL Isovue 300. Multiplanar reformats were generated and reviewed. All CT scans are performed using dose optimization technique as appropriate and may include automated exposure control or mA/KV adjustment according to patient size. FINDINGS: No suspicious findings in the lung bases. The liver, spleen, and adrenal glands show no suspicious findings. Status post cholecystectomy. Stabl e 3.9 x 3.7 centimeter pancreatic tail cystic lesion with some marrow signal calcifications. No findi ngs to suggest intra or extrahepatic biliary ductal dilation. 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 Symmetric renal function is seen with no hydronephrosis or suspicious renal mass. Mild colonic diverticulosis particularly along the ascending colon and sigmoid. No dilated bowel loops or bowel wall thickening. No free air, free fluid or inflammatory stranding. N o hernia, mass or bulky lymphadenopathy. The urinary bladder is without significant finding. No suspicious bony findings. IMPRESSION: No acute intra-abdominal process. Stable findings as above, including a stable pancreat ic tail cystic lesion, and extensive varicosities around the splenic hilum.
[2022-12-16] MEDS ORDERED: HALOPERIDOL LACT 5 MG/ML INJ ONE (15:46)
--- NOTE | 2022-12-16 16:54 | ER ---
Nurse's Notes [facility] Name: Alex Auguste Age: 42 yrs Sex: Male : 1980 Arrival Date: 12/16/2022 Time: 12:12 Bed 3 Private MD: Diagnosis: Other chronic pancreatitis;Nausea with vomiting, unspecified Presentation: 12/16 12:24 Chief complaint: Patient states: abd pain, n/v/d since 3 am, hx of pancreatitis. iw Coronavirus screen: At this time, the client does not indicate any symptoms associated with coronavirus-19. Ebola Screen: Patient negative for fever greater than or equal to 101.5 degrees Fahrenheit, and additional compatible Ebola Virus Disease symptoms Patient denies exposure to infectious person. Patient denies travel to an Ebola-affected area in the 21 days before illness onset. No symptoms or risks identified at this time. Initial Sepsis Screen: Does the patient meet any 2 criteria? No. Patient's initial sepsis screen is negative. Does the patient have a suspected source of infection? No. Patient's initial sepsis screen is negative. Risk Assessment: Do you want to hurt yourself or someone else? Patient reports no desire to harm self or others. Onset of symptoms was December 16, 2022. 12:24 Method Of Arrival: Wheelchair iw 12:24 Acuity: [place] 2 iw Historical: - Allergies: 12:27 No Known Allergies; iw - PMHx: 12:26 angina pectoris; Chronic Pancreatitis; Diabetes - IDDM; GERD; High Triglycerides; iw - Immunization history:: Adult Immunizations up to date, Client reports receiving the 2nd dose of the Covid vaccine. - Social history:: Smoking status: Patient denies any tobacco usage or history of. Patient/guardian denies using alcohol. - Family history:: not pertinent. - Hospitalizations: : No recent hospitalization is reported. Screenin:44 [facility] ED Fall Risk Assessment (Adult) History of falling in the last 3 months, ld1 including since admission No falls in past 3 months (0 pts). Abuse screen: Denies threats or abuse. Denies injuries from another. Nutritional screening: No deficits noted. Tuberculosis screening: No symptoms or risk factors identified. Assessment: 12:44 General: Appears in no apparent distress. uncomfortable, Behavior is anxious, crying. ld1 Pain: Complains of pain in abdomen Pain does not radiate. Pain currently is 10 out of 10 on a pain scale. Quality of pain is described as sharp, shooting, throbbing, Pain began 1 day ago. Is continuous. Neuro: Level of Consciousness is awake, alert, obeys commands, Oriented to person, place, time, situation. Cardiovascular: Capillary refill < 3 seconds Patient's skin is warm and dry. Respiratory: Airway is patent Respiratory effort is even, unlabored. GI: Abdomen is flat, non-distended, Bowel sounds present X 4 quads. Abd is soft Abdomen is tender to palpation Reports nausea, vomiting. : No signs and/or symptoms were reported regarding the genitourinary system. EENT: No signs and/or symptoms were reported regarding the EENT system. Derm: No signs and/or symptoms reported regarding the dermatologic system. Musculoskeletal: No signs and/or symptoms reported regarding the musculoskeletal system. 13:53 Reassessment: Patient and/or family updated on plan of care and expected duration. Pain mb9 level reassessed. Patient is alert, oriented x 3, equal unlabored respirations, skin warm/dry/pink. Patient states symptoms have improved. 15:30 Reassessment: pt actively vomiting. ERP notified, new orders at this time. mb9 15:47 Pain: Complains of pain in abdomen Pain radiates to RUQ Pain currently is 10 out of 10 mb9 on a pain scale. Quality of pain is described as throbbing. Neuro: Level of Consciousness is awake, alert, obeys commands, Oriented to person, place, time, situation. GI: Pt is actively vomiting bile. 17:05 Reassessment: Patient and/or family updated on plan of care and expected duration. Pain mb9 level reassessed. Patient is alert, oriented x 3, equal unlabored respirations, skin warm/dry/pink. Patient states feeling better. Patient states symptoms have improved. Vital Signs: 12:25 BP 187 / 113; Pulse 120; Resp 20; Pulse Ox 100% on R/A; iw 12:44 BP 171 / 110; Pulse 112; Resp 18; Pulse Ox 100% on R/A; Pain 10/10; ld1 12:44 Temp 98.3(O); ld1 13:00 BP 145 / 88; Pulse 100; Resp 18; Pulse Ox 100% on R/A; mb9 13:52 BP 132 / 75; Pulse 108; Resp 16; Pulse Ox 100% on R/A; mb9 15:17 BP 142 / 92; Pulse 96; Resp 17; Pulse Ox 98% on R/A; mb9 15:58 BP 122 / 83; Pulse 103; Resp 16; Pulse Ox 99% on R/A; mb9 17:04 BP 138 / 98; Pulse 92; Resp 18; Pulse Ox 99% on R/A; mb9 12:44 Pain Scale: Adult ld1 ED Course: 12:14 Patient arrived in ED. rg4 12:21 Venkat Lyon MD is Attending Physician. rn 12:25 Triage completed. iw 12:27 Arm band placed on. iw 12:28 Glendy Levin, KECIA is Primary Nurse. ld1 12:44 Patient has correct armband on for positive identification. Placed in gown. Bed in low ld1 position. Call light in reach. Side rails up X2. lunchroom monitor on. Pulse ox on. NIBP on. Door closed. Noise minimized. Warm blanket given. 12:44 Lipase Sent. ld1 12:44 CMP Sent. ld1 12:44 CBC with Diff Sent. ld1 12:44 No provider procedures requiring assistance completed. Inserted saline lock: 20 gauge ld1 in right antecubital area, using aseptic technique. Blood collected. 13:34 CT Abd/Pelvis - IV Contrast Only In Process Unspecified. EDMS 17:05 IV discontinued, intact, bleeding controlled, No redness/swelling at site. Pressure mb9 dressing applied. Administered Medications: 12:43 Drug: Promethazine IVP 12.5 mg Route: IVP; Site: right antecubital; ld1 14:34 Follow up: Response: No adverse reaction mb9 12:44 Drug: NS 0.9% IV 1000 ml Route: IV; Rate: 1 bolus; Site: right antecubital; ld1 12:44 Drug: Famotidine IVP 20 mg Route: IVP; Site: right antecubital; ld1 12:44 Drug: morphine IVP or IV 4 mg Route: IVP; Infused Over: 4 mins; Site: right antecubital;ld1 13:24 Drug: Promethazine IVP 12.5 mg Route: IVP; Site: right antecubital; mb9 14:34 Follow up: Response: No adverse reaction mb9 13:27 Drug: HYDROmorphone IVP 1 mg Route: IVP; Site: right antecubital; mb9 14:34 Follow up: Response: No adverse reaction mb9 15:46 Drug: Haloperidol IVP 5 mg Route: IVP; Site: right antecubital; mb9 Medication: 12:44 VIS not applicable for this client. ld1 Outcome: 16:53 Discharge ordered by . rn 17:05 Discharged to home ambulatory. mb9 17:05 Condition: stable 17:05 Discharge instructions given to patient, Instructed on discharge instructions, follow up and referral plans. Demonstrated understanding of instructions, follow-up care, medications, Prescriptions given X 2. 17:05 Patient left the ED. mb9 Signatures: Dispatcher [employer] EDMattie Ann RN RN iw Nieto, Roman, MD MD rn Garcia, Rubi rg4 Glendy Levin RN RN ld1 Rosalee Eckert RN RN mb9
--- NOTE | 2022-12-16 16:54 | EDPHYS ---
Physician Documentation [facility] Name: Alex Auguste Age: 42 yrs Sex: Male : 1980 Arrival Date: 12/16/2022 Time: 12:12 Bed 3 Private MD: ED Physician Venkat Lyon HPI: 12/16 13:24 This 42 yrs old Male presents to ER via Wheelchair with complaints of Abdominal Pain, rn Vomiting/Diarrhea. 13:24 The patient presents to the emergency department with nausea, vomiting, abdominal pain. rn Onset: The symptoms/episode began/occurred this morning. Possible causes: flare up of bowel problem, pancreatitis. The symptoms are aggravated by pressure, food , The symptoms are alleviated by nothing. Associated signs and symptoms: Pertinent positives: abdominal pain, nausea, vomiting, Pertinent negatives: diarrhea, fever, GI bleeding. Severity of symptoms: At their worst the symptoms were moderate in the emergency department the symptoms are unchanged. The patient has experienced similar episodes in the past, chronically. Pt with chronic pancreatitis, began again this AM, + vomiting, no blood. Told in past 2/2 triglycerides and takes medication. Hasn't had to be admitted "in about a year". Feels identical to previous episodes. . Historical: - Allergies: 12:27 No Known Allergies; iw - PMHx: 12:26 angina pectoris; Chronic Pancreatitis; Diabetes - IDDM; GERD; High Triglycerides; iw - Immunization history:: Adult Immunizations up to date, Client reports receiving the 2nd dose of the Covid vaccine. - Social history:: Smoking status: Patient denies any tobacco usage or history of. Patient/guardian denies using alcohol. - Family history:: not pertinent. - Hospitalizations: : No recent hospitalization is reported. ROS: 13:24 Constitutional: Negative for fever, chills, and weight loss, Cardiovascular: Negative rn for chest pain, palpitations, and edema, Respiratory: Negative for shortness of breath, cough, wheezing, and pleuritic chest pain, Abdomen/GI: + abd pain and nausea/vomiting MS/Extremity: Negative for injury and deformity, Skin: Negative for injury, rash, and discoloration, Neuro: Negative for headache, weakness, numbness, tingling, and seizure. Exam: 13:24 Constitutional: This is a well developed, well nourished patient who is awake, alert, rn vomiting into emesis bag, spitting on floor Head/Face: Normocephalic, atraumatic. ENT: dry MM Cardiovascular: tachycardic, regular Respiratory: No increased work of breathing, no retractions or nasal flaring. Abdomen/GI: soft, + epigastric and mid abd tenderness, no rebound Skin: Warm, dry MS/ Extremity: Pulses equal, no cyanosis. Neuro: Awake and alert, GCS 15 Vital Signs: 12:25 BP 187 / 113; Pulse 120; Resp 20; Pulse Ox 100% on R/A; iw 12:44 BP 171 / 110; Pulse 112; Resp 18; Pulse Ox 100% on R/A; Pain 10/10; ld1 12:44 Temp 98.3(O); ld1 13:00 BP 145 / 88; Pulse 100; Resp 18; Pulse Ox 100% on R/A; mb9 13:52 BP 132 / 75; Pulse 108; Resp 16; Pulse Ox 100% on R/A; mb9 15:17 BP 142 / 92; Pulse 96; Resp 17; Pulse Ox 98% on R/A; mb9 15:58 BP 122 / 83; Pulse 103; Resp 16; Pulse Ox 99% on R/A; mb9 17:04 BP 138 / 98; Pulse 92; Resp 18; Pulse Ox 99% on R/A; mb9 12:44 Pain Scale: Adult ld1 MDM: 12:21 Patient medically screened. rn 16:52 Differential diagnosis: Nonspecific abd pain, gastritis, pancreatitis, diverticulitis, rn viral gastroenteritis, gastroenteritis. Data reviewed: vital signs, nurses notes, lab test result(s), radiologic studies, CT scan, and as a result, I will discharge patient. Counseling: I had a detailed discussion with the patient and/or guardian regarding: the historical points, exam findings, and any diagnostic results supporting the discharge/admit diagnosis, lab results, radiology results, the need for outpatient follow up, to return to the emergency department if symptoms worsen or persist or if there are any questions or concerns that arise at home. Response to treatment: the patient's symptoms have markedly improved after treatment, and as a result, I will discharge patient. Special discussion: I discussed with the patient/guardian in detail that at this point there is no indication for admission to the hospital. It is understood, however, that if the symptoms persist or worsen the patient needs to return immediately for re-evaluation. Based on the history and exam findings, there is no indication for further emergent testing or inpatient evaluation. I discussed with the patient/guardian the need to see the roof bolting coal miner for further evaluation of the symptoms. I discussed with the patient/guardian the need to see the primary care provider for further evaluation of the symptoms. 12/16 12:26 Order name: CBC with Diff; Complete Time: 13: rn 12/16 12:26 Order name: CMP; Complete Time: 13: rn 12/16 12:26 Order name: Lipase; Complete Time: 13: rn 12/16 12:26 Order name: CT Abd/Pelvis - IV Contrast Only; Complete Time: 14:42 rn 12/16 12:26 Order name: IV Saline Lock; Complete Time: 12:44 rn 12/16 12:26 Order name: Labs collected and sent; Complete Time: 12:44 rn Administered Medications: 12:43 Drug: Promethazine IVP 12.5 mg Route: IVP; Site: right antecubital; ld1 14:34 Follow up: Response: No adverse reaction mb9 12:44 Drug: NS 0.9% IV 1000 ml Route: IV; Rate: 1 bolus; Site: right antecubital; ld1 12:44 Drug: Famotidine IVP 20 mg Route: IVP; Site: right antecubital; ld1 12:44 Drug: morphine IVP or IV 4 mg Route: IVP; Infused Over: 4 mins; Site: right antecubital;ld1 13:24 Drug: Promethazine IVP 12.5 mg Route: IVP; Site: right antecubital; mb9 14:34 Follow up: Response: No adverse reaction mb9 13:27 Drug: HYDROmorphone IVP 1 mg Route: IVP; Site: right antecubital; mb9 14:34 Follow up: Response: No adverse reaction mb9 15:46 Drug: Haloperidol IVP 5 mg Route: IVP; Site: right antecubital; mb9 Disposition Summary: 12/16/22 16:53 Discharge Ordered Location: Home rn Problem: an acute exacerbation rn Symptoms: have improved rn Condition: Stable rn Diagnosis - Other chronic pancreatitis rn - Nausea with vomiting, unspecified rn Followup: rn - With: Private Physician - When: As needed - Reason: Recheck today's complaints, Re-evaluation by your physician Discharge Instructions: - Nausea and Vomiting, Adult rn - Chronic Pancreatitis rn - Discharge Summary Sheet mb9 Forms: - Medication Reconciliation Form rn - Thank You Letter rn - Antibiotic operating room rn - Prescription Opioid Use rn - Work release form mb9 Prescriptions: - ondansetron 4 mg Oral Tablet,disintegrating - take 1 tablet by ORAL route every 8 hours As needed; 15 tablet; Refills: 0, rn Product Selection Permitted - Tramadol 50 mg Oral Tablet - take 1 tablet by ORAL route every 8 hours as needed; 12 tablet; Refills: 0, rn Product Selection Permitted Signatures: Dispatcher [employer] Mattie Moscoso RN Venkat Hanna MD MD rn Sims, Lauren, RN RN ld1 Rosalee Eckert RN RN mb9
[2022-12-16 17:13] VITALS: TEMP 98.3
[2022-12-16 17:17] VITALS: O2SAT 99
[2022-12-16 17:19] VITALS: BP 138/98
== END 2022-12-16 17:05 | disposition home or self-care (01) ==
LOC: ER 12:12
DX: K86.1 Other chronic pancreatitis (principal); R11.2 Nausea with vomiting, unspecified; R10.9 Unspecified abdominal pain
CPT/HCPCS: 85025; 36415; 83690; 80053; 74177; 96375; 96374; 99285; Q9967; J2550 ×2; J1630; J1170; J2405; J7030

== ENCOUNTER 2023-01-26 18:05 | Emergency (ER) | payer BC ==
--- OUTSIDE RECORDS SUMMARY | 2023-01-26 18:23 | XMS REPORT | Continuity of Care Document ---
:1980 Author Organization [facility] t Address [address] [place] [address] Care Team Providers Name Role Phone Chetan Coleman Attending Clinician Unavailable Nader Randall Attending Clinician Doctor Unassigned, [place] Attending Clinician Unavailable Lillian James R Attending Clinician Madeline MCDONNELL, Annita Huizar Attending Clinician [place] FLORES, Kofi Justice Attending Clinician Laurence Jose MD Attending Clinician Cole Guan MD Attending Clinician COLE GUAN Attending Clinician Unavailable Laurence Jose MD Admitting Clinician Payers Payer Name Policy Type Policy Number Effective Date Expiration Date S kat [facility] - [id number] 2019 00:00:00 OUT OF STATE Problems Condition [...] uncontroll 00 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, ed, 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 without without Utility complicati complicati ons [...] of 00:00: Diagnosis [place] 00 Term 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 Utility Allergies, Adverse Reactions, Alerts Allergy [...] Active Univers ALLERGIE Class ity of S [facility] Social History Social Habit Start Date Stop Date Quantity Comments Source History of Snuff User Lambert of tobacco use [facility] Alcohol Comment occasional Universit y of [facility] Exposure to Not sure University of SARS-CoV-2 [place] Medical (event) Branch Alcohol intake 2020-06-25 2020-06-25 Current University of 00:00:00 00:00:00 non-drinker of [facility] [place] [facility] alcohol (finding) Branch Tobacco use and 2020-06-25 2020-06-25 Current user Univers ity of exposure 00:00:00 00:00:00 [facility] Sex Assigned At [birth year] Universit y of 00:00:00 00:00:00 [facility] Smoking Status Start Date Stop Date Source Never smoker [facility] Medications Ordered Filled Start Stop Current Ordering Indication Dosage Frequency Signature Comments Components Source Medication Medication Date Date Medication? Clinician (SIG) Name Name morpHINE 2020- No 2mg 2 mg, Slow Un cb injection 2 11-16 IV Push, ity of mg 22:00: 22:00 ONCE, 1 [place] 00 :00 dose, [facility] Medical 11/16/20 at Branch 1700, STAT predniSONE 2020- No 20mg 20 mg, Univ ers (DELTASONE) 11-16 Oral, ity of tablet 20 21:30: 20:49 ONCE, 1 [place] mg 00 :00 dose, [facility] Medical 11/16/20 at Branch 1630, ANA MARIA amoxicillin 2020- No 1{tbl} 1 tablet, Univers -clavulanat 11-16 Oral, ity of e 21:30: 20:49 ONCE, 1 [place] (AUGMENTIN) 00 :00 dose, [facility] Med ical 875-125 mg 11/16/20 at [facility] per tablet 1630, 1 tablet Routine
Reason for Anti-Infec tive: Documented Infection< br>Documen j luis Infection Site: Abdominal< br>Duratio n of Therapy: 10 days iopamidol 2020- No [id number] 100mL 100 mL, Univers (ISOVUE 11-16 Intravenou ity o f 370-500 mL) 20:45: 19:30 s, ONCE, 1 [place] injection 00 :00 dose, Sat Medic al 100 mL 11/16/20 at Branch 1545, Routine morpHINE 2020- No 4mg 4 mg, Slow Un cb injection 4 11-16 IV Push, ity of mg 20:15: 19:12 ONCE, 1 [place] 00 :00 dose, [facility] Medical 11/16/20 at Branch 1515, STAT ondansetron [...] 1,000 mL 00 :00 IV Medical Infusion, [place] ONCE, 1 dose, 11/16/20 at 1430, STAT amoxicillin 2020- Yes [id number] 1{tbl} Take 1 Univers -clavulanat 5-08 tablet by ity of e 875-125 00:00: mouth [place] mg per 00 every 12 Medical tablet (twelve) Branch hours. predniSONE Yes [id number] 1 PO BID x Univers 20 mg 5-08 4 days ity of tablet 00:00: [place] 00 Medical Branch ibuprofen 2020- No 800mg 800 mg, Uni vers (IBU) 17 -17 Oral, ity of tablet 800 23:30: 22:44 ONCE, 1 [place] as mg 00 :00 dose, [place] Medical 07/28/20 at Branch 1730, ANA MARIA Diclofenac Yes [id number] Apply to Univers Sodium 1-17 area(s) 2 ity of (VOLTAREN) 00:00: (two) [place] 1 % gel 00 times Medical daily. [place] Diclofenac Yes [id number] Apply to Univers Sodium 1-17 area(s) 2 ity of (VOLTAREN) 00:00: (two) [place] 1 % gel 00 times Medical daily. [place] Diclofenac Yes [id number] Apply to Univers Sodium 1-17 area(s) 2 ity of (VOLTAREN) 00:00: (two) [place] 1 % gel 00 times Medical daily. [place] insulin 2019-07 Yes 36U 36 Units, Unive rs glargine 2-20 Subcutaneo ity o f (LANTUS 03:00: , [facility], [place] U-100) 00 First dose Medical injection (after Branch 36 Units last modificati on) on 06/29/20 at 2100, Until Discontinu ed, Routine gemfibroziL 2019-07 Yes 600mg Take 600 U nivers 600 mg 2-20 mg by ity of tablet 01:33: mouth 2 [place] [address] (two) Medical times Branch daily before breakfast and dinner. metoprolol 2019-07 Yes 25mg Take 25 mg U nivers tartrate 25 2-20 by mouth 2 it y of mg tablet 01:33: (two) [place] [address] times Medical daily. Branch Pantoprazol 2019-07 Yes 40mg Take 40 mg Univers e 40 mg 2-20 by mouth ity of delayed-rel 01:33: daily. [place] ease 08 Medical suspension Branch busPIRone 2019-07 Yes 10mg Take 10 mg Un cb 10 mg 2-20 by mouth 2 ity of tablet 01:33: (two) [place] [address] times Medical daily. Branch niacin 500 2019-07 Yes 500mg Take 500 Un cb mg tablet 2-20 mg by ity of 01:33: mouth [place] 08 daily with Medical breakfast. Branch lipase-prot 2019-07 Yes [id number] Take Univ ers ease-amylas 2-20 36,000 ity of e (CREON) 01:33: Units by [place] 36,000-114, 08 mouth with Me dical 000- all meals. Branch 180,000 Take 2 unit CpDR capsules by mouth with meals and 1 with each snack. losartan 25 2019-07 Yes 25mg Take 25 mg Univers mg tablet 2-20 by mouth ity of 01:33: daily. [place] [address] Medical Branch vortioxetin 2019-07 Yes 10mg Take 10 mg Univers e 10 mg Tab 2-20 by mouth ity of 01:33: at [place] [address] bedtime. Medical Branch gemfibroziL 2019-07 Yes 600mg Take 600 U nivers 600 mg 2-20 mg by ity of tablet 01:33: mouth 2 [place] [address] (two) Medical times Branch daily before breakfast and dinner. metoprolol 2019-07 Yes 25mg Take 25 mg U nivers tartrate 25 2-20 by mouth 2 it y of mg tablet 01:33: (two) [place] [address] times Medical daily. Branch Pantoprazol 2019-07 Yes [...] with Medical breakfast. Branch lipase-prot 2019- Yes [id number] Take Univ ers ease-amylas 2-20 36,000 ity of e (CREON) 01:33: Units [place] 36,000-114, 08 mouth with Me dical 000- all meals. Branch 180,000 Take 2 unit CpDR capsules by mouth with meals and 1 with each snack. losartan 25 2019- Yes 25mg Take 25 mg Univers mg tablet 2-20 by mouth ity of 01:33: daily. [place] [address] Medical Branch vortioxetin 2019- Yes 10mg Take 10 mg Univers e 10 mg Tab 2-20 by mouth ity of 01:33: at [place] [address] bedtime. Medical Branch gemfibroziL 2019- Yes 600mg Take 600 U nivers 600 mg 2-20 mg by ity of tablet 01:33: mouth 2 [place] 08 (two) Medical times Branch daily before breakfast and dinner. metoprolol 2019- Yes 25mg Take 25 mg U nivers tartrate 25 2-20 by mouth 2 it y of mg tablet 01:33: (two) [place] [address] times Medical daily. Branch Pantoprazol 2019-07 Yes 40mg Take 40 mg Univers e 40 mg 2-20 by mouth ity of delayed-rel 01:33: daily. [place] ease 08 Medical suspension Branch busPIRone 2019- Yes 10mg Take 10 mg Un cb 10 mg 2-20 by mouth 2 ity of tablet 01:33: (two) [place] [address] times Medical daily. Branch niacin 500 2019-07 Yes 500mg Take 500 Un cb mg tablet 2-20 mg by ity of 01:33: mouth [place] 08 daily with Medical breakfast. Branch lipase-prot 2019- Yes [id number] Take Univ ers ease-amylas 2-20 36,000 ity of e (CREON) 01:33: Units by [place] 36,000-114, 08 mouth with Me dical 000- all meals. Branch 180,000 Take 2 unit CpDR capsules by mouth with meals and 1 with each snack. losartan 25 2019- Yes 25mg Take 25 mg Univers mg tablet 2-20 by mouth ity of 01:33: daily. [place] [address] Medical Branch vortioxetin 2019- Yes 10mg Take 10 mg Univers e 10 mg Tab 2-20 by mouth ity of 01:33: at [place] [address] bedtime. Medical Branch gemfibroziL 2019- Yes 600mg Take 600 U nivers 600 mg 2-20 mg by ity of tablet 01:33: mouth 2 (two) Medical times [place] daily before breakfast and dinner. metoprolol 2019- Yes 25mg Take 25 mg U nivers tartrate 25 2-20 by mouth 2 it y of mg tablet 01:33: (two) [place] [address] times Medical daily. Branch Pantoprazol 2019- Yes 40mg Take 40 mg Univers e 40 mg 2-20 by mouth ity of delayed-rel 01:33: daily. [place] ease 08 Medical suspension Branch busPIRone 2019-07 Yes 10mg Take 10 mg Un cb 10 mg 2-20 by mouth 2 ity of tablet 01:33: (two) [place] [address] times Medical daily. Branch niacin 500 2019- Yes 500mg Take 500 Un cb mg tablet 2-20 mg by ity of 01:33: mouth [place] 08 daily with Medical breakfast. Branch lipase-prot 2019-07 Yes [id number] Take Univ ers ease-amylas 2-20 36,000 ity of e (CREON) 01:33: Units by [facility] s 36,000-114, 08 mouth with Me dical 000- all meals. Branch 180,000 Take 2 unit CpDR capsules by mouth with meals and 1 with each snack. losartan 25 2019-07 Yes 25mg Take 25 mg Univers mg tablet 2-20 by mouth ity of 01:33: daily. [place] [address] Medical Branch vortioxetin 2019- Yes 10mg Take 10 mg Univers e 10 mg Tab 2-20 by mouth ity of 01:33: at [place] [address] bedtime. Medical Branch gemfibroziL 2019- Yes 600mg Take 600 U nivers 600 mg 2-20 mg by ity of tablet 01:33: mouth 2 [place] [address] (two) Medical times [place] daily before breakfast and dinner. metoprolol 2019- Yes 25mg Take 25 mg U nivers tartrate 25 2-20 by mouth 2 it y of mg tablet 01:33: (two) [place] [address] times Medical daily. Branch Pantoprazol 2019- Yes 40mg Take 40 mg Univers e 40 mg 2-20 by mouth ity of delayed-rel 01:33: daily. [place] ease 08 Medical suspension Branch busPIRone 2019-07 Yes 10mg Take 10 mg Un bc 10 mg 2-20 by mouth 2 ity of tablet 01:33: (two) [place] 08 times Medical daily. Branch niacin 500 2019-07 Yes 500mg Take 500 Un cb mg tablet 2-20 mg by ity of 01:33: mouth [place] 08 daily with Medical breakfast. Branch lipase-prot 2019- Yes [id number] Take Univ ers ease-amylas 2-20 36,000 ity of e (CREON) 01:33: Units by [place] 36,000-114, 08 mouth with Me dical 000- all meals. Branch 180,000 Take 2 unit CpDR capsules by mouth with meals and 1 with each snack. losartan 25 2019- Yes 25mg Take 25 mg Univers mg tablet 2-20 by mouth ity of 01:33: daily. [place] [address] Medical Branch vortioxetin 2019- Yes 10mg Take 10 mg Univers e 10 mg Tab 2-20 by mouth ity of 01:33: at [place] [address] bedtime. Medical Branch gemfibroziL 2019- Yes 600mg [...] 500 2019-07 Yes 500mg Take 500 Un bc mg tablet 2-20 mg by ity of 01:33: mouth [place] 08 daily with Medical breakfast. Branch lipase-prot 2019- Yes [id number] Take Univ ers ease-amylas 2-20 36,000 ity of e (CREON) 01:33: Units by [place] 36,000-114, 08 mouth with Me dical 000- all meals. Branch 180,000 Take 2 unit CpDR capsules by mouth with meals and 1 with each snack. losartan 25 2019-07 Yes 25mg Take 25 mg Univers mg tablet 2-20 by mouth ity of 01:33: daily. [place] 08 Medical Branch vortioxetin 2019-07 Yes 10mg Take 10 mg Univers e 10 mg Tab 2-20 by mouth ity of 01:33: at [place] 08 bedtime. Medical Branch insulin 2019-07 2020- No 15U 15 Units, [facility] ers glargine -06-29 Subcutaneo ity of (LANTUS 15:00: 14:07 us, ONCE, [place] U-100) 00 :00 1 dose, Medical injection Sat Branch 15 Units 06/29/20 at 0900, Routine morpHINE 2019-07 Yes 2mg 2 mg, Slow Uni vers injection 2 08-30 IV Push, ity of mg 08:15: Q6HPRN, [place] 00 Starting Medical Sat Branch 06/29/20 at 0215, Until Discontinu ed, Routine, Pain (scale 7-10) atorvastati 2019-07- No [id number] 40mg Take 1 Univers n 40 mg 08-30 tablet by ity of tablet 00:00: 05:59 mouth at [place] 00 :00 bedtime Medical for 30 Branch days. atorvastati 2019-07- No [id number] 40mg Take 1 Univers n 40 mg 08-30 tablet by ity of tablet 00:00: 05:59 mouth at [place] 00 :00 bedtime Medical for 30 Branch days. atorvastati 2019-07- No [id number] 40mg Take 1 Univers n 40 mg 08-30 tablet by ity of tablet 00:00: 05:59 mouth at [place] 00 :00 bedtime Medical for 30 Branch days. atorvastati 2019-07- No [id number] 40mg Take 1 Univers n 40 mg 08-30 tablet by ity of tablet 00:00: 05:59 mouth at [place] 00 :00 bedtime Medical for 30 Branch [...] AC+HS, ity of Insulin-Reg 13:30: First dose [place] ular + Fsbg 00 on Wed Medica [...] use: PATIENT CURRENTLY TAKING NONFORMULA RY PRODUCT
grocery team member approving Non-formul caitlyn medication : [...] First dose [place] mg 00 on [facility] 06/26/20 Branch at 2100, Until Discontinu ed, Routine gemfibroziL 2019-07 Yes 600mg 600 mg, Un cb (LOPID) 2-17 Oral, BID, ity of tablet 600 02:00: First dose [place] mg 00 on [facility] 06/26/20 Branch at 2000, Until Discontinu ed, Routine busPIRone 2019-07 Yes 10mg 10 mg, Univer s (BUSPAR) 2-17 Oral, BID, ity o f tablet 10 02:00: First dose [place] mg 00 on [facility] 06/26/20 Branch at 2000, Until Discontinu ed, Routine enoxaparin 2019-07 Yes 40mg 40 mg, Unive rs (LOVENOX) 16 Subcutaneo ity of injection 23:00: us, DAILY, [place] 40 mg 00 First dose Medical on [facility] 06/26/20 at 1700, Until Discontinu ed, Routine morpHINE 2019-07 2020- No 4mg 4 mg, Slow Un cb injection 4 08-27 IV Push, ity of mg 16:30: 07:29 Q3HPRN, [place] 00 :00 Starting [facility] 06/26/20 at 1030, Until Padmini 06/27/20 [...] rate based on Triglyceri de level, Starting [facility] 06/26/20 at 1016
If glucose < [...] 16:15 Q4HPRN, [place] 11 :46 Starting Medical [facility] Branch 06/26/20 at 0521, Until Wed06/26/20 at 1015, Routine, Pain (scale 7-10) NaCl 0.9% 2019-07 No 1000mL at 125 Uni vers (NS) IV 08-27 mL/hr, IV ity of infusion 08:00: 14:01 Infusion, [place] as 1,000 mL 00 :34 CONTINUOUS Medic al , Starting Branch [facility] 06/26/20 at 0200, Until Wed06/26/20 at 0801, Routine dextrose 50 2019-07 No 25mL 25 mL, Uni vers % in water 08-27 Slow IV ity o f (D50W) 07:48: 13:26 Push, PRN, [place] injection 20 :23 Starting Medica l 25 mL [facility] 06/26/20 at 0148, Until Wed06/28/20 at 0726, ANA MARIA, Blood Glucose < or = 70 mg/dL and patient is unable to swallow or has mental status changes. proMETHazin 2019-07- No 25mg 25 mg, IV Univers e 08-27 Piggyback, ity of (PHENERGAN) 07:45: 07:45 ONCE, 1 [place] 25 mg in 00 :00 dose, [facility] Medica l NaCl 0.9% 06/26/20 Branch (NS) 50 mL at 0145, piggyback 50 mL FENTanyl PF 2019-07- No 100ug 100 mcg, Univers (SUBLIMAZE 08-27 Slow IV ity o f (PF)) 07:45: 06:34 Push, [place] injection 00 :00 ONCE, 1 Medical 100 mcg dose, [facility] Branch 06/26/20 at 0145, Routine morpHINE 2019-07- No 2mg 2 mg, Slow Un cb injection 2 08-27 IV Push, ity of mg 07:44: 11:21 Q4HPRN, [place] 30 :45 Starting Medical [facility] 06/26/20 at 0144, Until Wed06/26/20 at [...] :00 ONCE, 1 Medical 75 mcg dose, [facility] 06/25/20 at 2200, Routine LOVAZA, 2019-0 Yes [id number] 3g Take 3 Univ ers omega-3-aci 7-31 capsules ity of d ethyl 00:00: by mouth [place] esters, 1 00 daily. Medical [facility] Branch capsule LOVAZA, 2019-0 Yes [id number] 3g Take 3 Univ ers omega-3-aci 7-31 capsules ity of d ethyl 00:00: by mouth [place] esters, 1 00 daily. Medical [facility] Branch capsule LOVAZA, 2019-0 Yes [id number] 3g Take 3 Univ ers omega-3-aci 7-31 capsules ity of d ethyl 00:00: by mouth [place] esters, 1 00 daily. Medical [facility] Branch capsule LOVAZA, 0 Yes [id number] 3g Take 3 Univ ers omega-3-aci 7-31 capsules ity of d ethyl 00:00: by mouth [place] esters, 1 00 daily. Medical [facility] capsule LOVAZA, 2019-0 Yes [id number] 3g Take 3 Univ ers omega-3-aci 7-31 capsules ity of d ethyl 00:00: by mouth [place] esters, 1 00 daily. Medical [facility] capsule LOVAZA, 2019-0 Yes [id number] 3g Take 3 Univ ers omega-3-aci 7-31 capsules ity of d ethyl 00:00: by mouth [place] esters, 1 00 daily. Medical [facility] capsule LOVAZA, 2019-0 Yes [id number] 3g Take 3 Univ ers omega-3-aci 7-31 capsules ity of d ethyl 00:00: by mouth [place] esters, 1 00 daily. Medical [facility] capsule LOVAZA, 2019-0 Yes [id number] 3g Take 3 Univ ers omega-3-aci 7-31 capsules ity of d ethyl 00:00: by mouth [place] esters, 1 00 daily. Medical [facility] capsule ondansetron Yes [id number] 4mg Take 1 Univers (ZOFRAN 5-03 tablet by ity of ODT) 4 mg 00:00: mouth [place] disintegrat 00 every 8 Medic al ing tablet (eight) Branch hours as needed for Nausea and Vomiting (N/V). ondansetron Yes [id number] 4mg Take 1 Univers (ZOFRAN 5-03 tablet by ity of ODT) 4 mg 00:00: mouth [place] disintegrat 00 every 8 Medic al ing tablet (eight) Branch hours as needed for Nausea and Vomiting (N/V). ondansetron 2019-0 Yes [id number] 4mg Take 1 Univers (ZOFRAN 5-03 tablet by ity of ODT) 4 mg 00:00: mouth [place] disintegrat 00 every 8 Medic al ing tablet (eight) Branch hours as needed for Nausea and Vomiting (N/V). ondansetron 2019-0 Yes [id number] 4mg Take 1 Univers (ZOFRAN 5-03 tablet by ity of ODT) 4 mg 00:00: mouth [place] disintegrat 00 every 8 Medic al ing tablet (eight) Branch hours as needed for Nausea and Vomiting (N/V). ondansetron 2019-0 Yes [id number] 4mg Take 1 Univers (ZOFRAN 5-03 tablet by ity of ODT) 4 mg 00:00: mouth [place] disintegrat 00 every 8 Medic al ing tablet (eight) Branch hours as needed for Nausea and Vomiting (N/V). ondansetron 2019-0 Yes [id number] 4mg Take 1 Univers (ZOFRAN 5-03 tablet by ity of ODT) 4 mg 00:00: mouth [place] disintegrat 00 every 8 Medic al ing tablet (eight) Branch hours as needed for Nausea and Vomiting (N/V). ondansetron 2019-0 Yes [id number] 4mg Take 1 Univers (ZOFRAN 5-03 tablet by ity of ODT) 4 mg 00:00: mouth [place] disintegrat 00 every 8 Medic al ing tablet (eight) Branch hours as needed for Nausea and Vomiting (N/V). ondansetron 2019-0 Yes [id number] 4mg Take 1 Univers (ZOFRAN 5-03 tablet by ity of ODT) 4 mg 00:00: mouth [place] disintegrat 00 every 8 Medic al ing tablet (eight) Branch hours as needed for Nausea and Vomiting (N/V). ondansetron 2019-0 Yes [id number] 4mg Take 1 Univers (ZOFRAN 5-03 tablet by ity of ODT) 4 mg 00:00: mouth [place] disintegrat 00 every 8 Medic al ing tablet (eight) Branch hours as needed for Nausea and Vomiting (N/V). ondansetron Yes [id number] 4mg Take 1 Univers (ZOFRAN 5-03 tablet by ity of ODT) 4 mg 00:00: mouth [place] disintegrat 00 every 8 Medic al ing tablet (eight) Branch hours as needed for Nausea and Vomiting (N/V). Insulin Yes QID, Univers [place], 9 DX:E11.9 ity of Disposable, 00:00: [place] (BD INSULIN 00 Medical PEN NEEDLE Branch UF) 31 gauge x 5/16" Ndle Insulin Yes QID, Univers [place], 04-05 DX:E11.9 ity of Disposable, 00:00: [place] (BD INSULIN Medical PEN NEEDLE Branch UF) 31 gauge x 5/16" Ndle Insulin Yes QID, Univers [place], 04-05 DX:E11.9 ity of Disposable, 00:00: [place] (BD INSULIN Medical PEN NEEDLE Branch UF) 31 gauge x 5/16" Ndle Insulin Yes QID, Univers [place], 04-05 DX:E11.9 ity of Disposable, 00:00: [place] (BD INSULIN 00 Medical PEN NEEDLE Branch UF) 31 gauge x 5/16" Ndle Insulin Yes QID, Univers [place], 04-05 DX:E11.9 ity of Disposable, 00:00: [place] (BD INSULIN 00 Medical PEN NEEDLE Branch UF) 31 gauge x 5/16" Ndle Insulin Yes QID, Univers [place], 04-05 DX:E11.9 ity of Disposable, 00:00: [place] (BD INSULIN Medical PEN NEEDLE Branch UF) 31 gauge x 5/16" Ndle atorvastati Yes [id number] 40mg Take 1 Univers n (LIPITOR) 9-25 tablet by ity of 40 mg 00:00: mouth at [place] tablet 00 bedtime. Medical Branch LOVAZA, Yes [id number] 2g Take 2 Uni vers omega-3-aci 9-25 capsules ity of d ethyl 00:00: by mouth 2 [place] esters, 00 (two) Medical (LOVAZA) 1 times Branch gram daily capsule before breakfast and dinner. Insulin Yes QID, Univers [place], 04-05 DX:E11.9 ity of Disposable, 00:00: [place] (BD INSULIN 00 Medical PEN NEEDLE Branch UF) 31 gauge x 5/16" Ndle atorvastati Yes [id number] 40mg Take 1 Univers n (LIPITOR) 9-25 tablet by ity of 40 mg 00:00: mouth at [place] tablet 00 bedtime. [facility], Yes [id number] 2g Take 2 Uni vers omega-3-aci -25 capsules ity of d ethyl 00:00: by mouth 2 [place] esters, 00 (two) Medical (LOVAZA) 1 times Branch gram daily capsule before breakfast and dinner. Insulin Yes QID, Univers [place], 04-05 DX:E11.9 ity of Disposable, 00:00: [place] (BD INSULIN 00 Medical PEN NEEDLE Branch UF) 31 gauge x 5/16" Ndle Insulin Yes QID, Univers [place], 04-05 DX:E11.9 ity of Disposable, 00:00: [place] (BD INSULIN Medical PEN NEEDLE Branch UF) 31 gauge x 5/16" Ndle Insulin Yes QID, Univers [place], 04-05 DX:E11.9 ity of Disposable, 00:00: [place] (BD INSULIN 00 Medical PEN NEEDLE Branch UF) 31 gauge x 5/16" Ndle atorvastati 2020- No [id number] 40mg Take 1 Univers n (LIPITOR) 04-05 tablet by it y of 40 mg 00:00: 00:00 mouth at [place] tablet 00 :00 bedtime. [facility], 2020- No [id number] 2g Take 2 Un cb omega-3-aci 04-05- capsules ity of d ethyl 00:00: 00:00 by mouth 2 [place] esters, 00 :00 (two) Medical (LOVAZA) 1 times Branch gram daily capsule before breakfast and dinner. insulin Yes [id number] Inject as U nivers aspart 6-20 instructed ity of (NOVOLOG 00:00: TID AC up [place] FLEXPEN) 00 to 80 Medical 100 unit/mL units Branch injection daily Insulin Yes [id number] 35U inject 35 U nivers Glargine 6-20 Units ity of (LANTUS 00:00: under the [place] SOLOSTAR) 00 skin every Medi maribeth 100 unit/mL morning. Bran ch (3 mL) injection insulin Yes [id number] Inject as U nivers aspart 6-20 instructed ity of (NOVOLOG 00:00: TID AC up [place] FLEXPEN) 00 to 80 Medical 100 unit/mL units Branch injection daily Insulin Yes [id number] 35U inject 35 U nivers Glargine 6-20 Units ity of (LANTUS 00:00: under the [place] SOLOSTAR) 00 skin every Medi maribeth 100 unit/mL morning. Bran ch (3 mL) injection insulin Yes [id number] Inject as U nivers aspart 6-20 instructed ity of (NOVOLOG 00:00: TID AC up [place] FLEXPEN) 00 to 80 Medical 100 unit/mL units Branch injection daily Insulin Yes [id number] 35U inject 35 U nivers Glargine 6-20 Units ity of (LANTUS 00:00: under the [place] SOLOSTAR) 00 skin every Medi maribeth 100 unit/mL morning. Bran ch (3 mL) injection insulin Yes [id number] Inject as U nivers aspart 6-20 instructed ity of (NOVOLOG 00:00: TID AC up [place] FLEXPEN) 00 to 80 Medical 100 unit/mL units Branch injection daily Insulin Yes [id number] 35U inject 35 U nivers Glargine 6-20 Units ity of (LANTUS 00:00: under the [place] SOLOSTAR) 00 skin every Medi maribeth 100 unit/mL morning. Bran ch (3 mL) injection insulin Yes [id number] Inject as U nivers aspart 6-20 instructed ity of (NOVOLOG 00:00: TID AC up [place] FLEXPEN) 00 to 80 Medical 100 unit/mL units Branch injection daily Insulin Yes [id number] 35U inject 35 U nivers Glargine 6-20 Units ity of (LANTUS 00:00: under the [place] SOLOSTAR) 00 skin every Medi maribeth 100 unit/mL morning. Bran ch (3 mL) injection glucagon 1 Yes [id number] Use as U nivers mg/mL SolR 6-20 instructed ity of injection 00:00: in case of [place] 00 severe Medical hypoglycem Branch ia. insulin Yes [id number] Inject as U nivers aspart 6-20 instructed ity of (NOVOLOG 00:00: TID AC up [place] FLEXPEN) 00 to 80 Medical 100 unit/mL units Branch injection daily Insulin Yes [id number] 35U inject 35 U nivers Glargine 6-20 Units ity of (LANTUS 00:00: under the [place] SOLOSTAR) 00 skin every Medi maribeth 100 unit/mL morning. Bran ch (3 mL) injection insulin Yes [id number] Inject as U nivers aspart 6-20 instructed ity of (NOVOLOG 00:00: TID AC up [place] FLEXPEN) 00 to 80 Medical 100 unit/mL units Branch injection daily Insulin Yes [id number] 35U inject 35 U nivers Glargine 6-20 Units ity of (LANTUS 00:00: under the [place] SOLOSTAR) 00 skin every Medi maribeth 100 unit/mL morning. Bran ch (3 mL) injection glucagon 1 Yes [id number] Use as U nivers mg/mL SolR 6-20 instructed ity of injection [place] severe Medical hypoglycem Branch ia. insulin Yes [id number] Inject as U nivers aspart 6-20 instructed ity of (NOVOLOG 00:00: [place] FLEXPEN) 00 to 80 Medical 100 unit/mL units Branch injection daily Insulin Yes [id number] 35U inject 35 U nivers Glargine 6-20 Units ity of (LANTUS 00:00: under the [place] SOLOSTAR) 00 skin every Medi maribeth 100 unit/mL morning. Bran ch (3 mL) injection insulin Yes [id number] Inject as U nivers aspart 6-20 instructed ity of (NOVOLOG 00:00: [place] FLEXPEN) 00 to 80 Medical 100 unit/mL units Branch injection daily Insulin Yes [id number] 35U inject 35 U nivers Glargine 6-20 Units ity of (LANTUS 00:00: under the [place] SOLOSTAR) 00 skin every Medi maribeth 100 unit/mL morning. Bran ch (3 mL) injection insulin Yes [id number] Inject as U nivers aspart 6-20 instructed ity of (NOVOLOG 00:00: T[place] FLEXPEN) 00 to 80 Medical 100 unit/mL units Branch injection daily Insulin Yes [id number] 35U inject 35 U nivers Glargine 6-20 Units ity of (LANTUS 00:00: under the [place] SOLOSTAR) 00 skin every Medi maribeth 100 unit/mL morning. Bran ch (3 mL) injection glucagon 1 2020- No [id number] Use as Univers mg/mL SolR 6-20 02-08 [...] ity of mg tablet 00:00: every 6 [place] 00 (six) Medical hours as Branch needed [...] by mouth ity of tablet 00:00: daily. [place] [facility] enalapril 2014-07 Yes 5mg Take 1 Tab Un cb (VASOTEC) 5 0-10 by mouth ity of mg tablet 00:00: daily. [place] [facility] fenofibrate 2014-07 Yes 134mg Take 1 Cap Univers micronized 0-10 by mouth ity o f (LOFIBRA) 00:00: daily. [place] 134 mg 00 Medical capsule Branch aspirin [...] mouth ity o f (LOFIBRA) 00:00: daily. [place] 134 mg 00 Medical capsule Branch aspirin 81 2014-07 2020- No 81mg Take 1 Tab Univers mg chewable 0-10 07-31 by mouth ity of tablet 00:00: 00:00 daily. [place] 00 :00 Medical Branch enalapril 2014-07 2020- No 5mg Take 1 Tab U nivers (VASOTEC) 5 0-10 07-31 by mouth ity of mg tablet 00:00: 00:00 daily. 00 :00 Medical Branch fenofibrate 2014-07 2020- No 134mg Take 1 Cap Univers micronized 0-10 07-31 by mouth ity of (LOFIBRA) 00:00: 00:00 daily. [place] 134 mg 00 :00 Medical capsule Branch blood sugar 2011-07 Yes [id number] before Univers diagnostic 0-05 meals and ity of (FREESTYLE 00:00: at [place] INSULINX) 00 bedtime. Medica l strip Branch blood sugar 2011-07 Yes [id number] before Univers diagnostic 0-05 meals and ity of (FREESTYLE 00:00: at [place] INSULINX) 00 bedtime. Medica l strip Branch blood sugar 2011-07 2020- No [id number] before Univers diagnostic 0-05 07-31 meals and ity of (FREESTYLE 00:00: 00:00 at [place] INSULINX) 00 :00 bedtime. Medica l strip Branch Lancets Yes [id number] Univer s (LANCETS,UL 9-24 ity of TRA THIN) 00:00: [facility] Medical Branch Lancets 2011-0 Yes [id number] Univer s (LANCETS,UL 9-24 ity of TRA THIN) 00:00: [place] [address] Medical Branch Lancets 2011-0 Yes [id number] Univer s (LANCETS,UL 9-24 ity of TRA THIN) 00:00: [place] [address] Medical Branch Lancets 2012-0 Yes [id number] Univer s (LANCETS,UL 9-24 ity of TRA THIN) 00:00: [place] [address] Medical Branch Lancets 2012-0 Yes [id number] Univer s (LANCETS,UL 9-24 ity of TRA THIN) 00:00: [place] [address] Medical Branch Lancets 2012-0 Yes [id number] Univer s (LANCETS,UL 9-24 ity of TRA THIN) 00:00: [place] [address] Medical Branch Lancets 2012-0 Yes [id number] Univer s (LANCETS,UL 9-24 ity of TRA THIN) 00:00: [place] [address] Medical Branch Lancets 2012-0 Yes [id number] Univer s (LANCETS,UL 9-24 ity of TRA THIN) 00:00: [place] [address] Medical Branch Lancets 2012-0 Yes [id number] Univer s (LANCETS,UL 9-24 ity of TRA THIN) 00:00: [place] [address] Medical Branch Lancets 2012-0 Yes [id number] Univer s (LANCETS,UL 9-24 ity of TRA THIN) 00:00: [place] [address] Medical Branch Vital Signs Vital Name Observation Time Observation Value Comments Source Systolic blood 2020-11-16 21:02:00 150 mm[Hg] Univer sity of pressure [place] [facility] Diastolic blood 2020-11-16 21:02:00 93 mm[Hg] Unive rsity of pressure [place] [facility] Heart rate 2020-11-16 21:02:00 93 /min Universi ty of [place] [facility] Respiratory rate 2020-11-16 21:02:00 20 /min Univ ersity of [place] [facility] Oxygen saturation in 2020-11-16 21:02:00 100 /min University of Arterial blood by [facility] [place] [facility] Pulse oximetry Branch Body temperature 2020-11-16 18:21:00 36.61 Dejah Univ ersity of [place] [facility] Body weight 2020-11-16 18:21:00 89.359 kg Universi ty of [place] [facility] BMI 2020-11-16 18:21:00 28.27 kg/m2 Universi ty of [place] [facility] Systolic blood 2020-07-28 21:58:00 147 mm[Hg] Univer sity of pressure [place] [facility] Diastolic blood 2020-07-28 21:58:00 100 mm[Hg] Unive rsity of pressure [place] [facility] Heart rate 2020-07-28 21:58:00 103 /min Universi ty of [place] [facility] Body temperature 2020-07-28 21:58:00 36.28 Dejah Univ ersity of [place] [facility] Respiratory rate 2020-07-28 21:58:00 20 /min Univ ersity of [place] [facility] Body weight 2020-07-28 21:58:00 86.183 kg Universi ty of [place] [facility] BMI 2020-07-28 21:58:00 27.26 kg/m2 Universi ty of [place] [facility] Oxygen saturation in 2020-07-28 21:58:00 100 /min University of Arterial blood by [facility] [place] [facility] Pulse oximetry Branch Systolic blood 2020-06-29 22:21:00 133 mm[Hg] Univer sity of pressure [place] [facility] Diastolic blood 2020-06-29 22:21:00 81 mm[Hg] Unive rsity of pressure [facility] Heart rate 2020-06-29 22:21:00 89 /min Universi ty of [facility] Body temperature 2020-06-29 22:21:00 36.83 Dejah Univ ersity of [facility] Respiratory rate 2020-06-29 22:21:00 18 /min Univ ersity of [facility] Oxygen saturation in 2020-06-29 22:21:00 99 /min University of Arterial blood by [facility] [place] [facility] Pulse oximetry Branch Body weight 2020-06-27 10:03:00 87.998 kg Universi ty of [facility] BMI 2020-06-27 10:03:00 27.84 kg/m2 Universi ty of [facility] Body height 2020-06-26 07:45:00 177.8 cm Universi ty of [facility] Systolic blood 2020-06-29 22:21:00 133 mm[Hg] Univer sity of pressure [facility] Diastolic blood 2020-06-29 22:21:00 81 mm[Hg] Unive rsity of pressure [facility] Heart rate 2020-06-29 22:21:00 89 /min Universi ty of [facility] Body temperature 2020-06-29 22:21:00 36.83 Dejah Univ ersity of [facility] Respiratory rate 2020-06-29 22:21:00 18 /min Univ ersity of [facility] Oxygen saturation in 2020-06-29 22:21:00 99 /min University of Arterial blood by [facility] [place] [facility] Pulse oximetry Branch Body weight 2020-06-27 10:03:00 87.998 kg Universi ty [facility] BMI 2020-06-27 10:03:00 27.84 kg/m2 Universi ty [facility] Body height 2020-06-26 07:45:00 177.8 cm Universi ty [facility] Procedures Procedure Date / Time Performing Clinician Source Performed CT ABDOMEN PELVIS W 2020-11-16 19:40:14 Nader Mendoza [facility] LIPASE 2020-11-16 18:28:00 Nader Mendoza [facility] MAGNESIUM 2020-11-16 18:28:00 Nader Mendoza [facility] COMP. METABOLIC PANEL 2020-11-16 18:28:00 Nader Mendoza [facility] ([id number]) Medical Branch CBC WITH DIFF 2020-11-16 18:28:00 Nader Mendoza [facility] URINALYSIS 2020-11-16 18:28:00 Nader Mendoza Shayla [facility] POCT GLUCOSE (AUTOMATED) 2020-11-16 18:25:00 Naedr Mendoza [facility] CONSENT/REFUSAL FOR 2020-11-16 18:14:39 Doctor Unassigned, [facility] DIAGNOSIS AND TREATMENT [place] [facility] CT CERVICAL SPINE WO 2020-07-28 22:41:56 Lillian Barr [facility] CONTRAST [facility] CT HEAD WO CONTRAST 2020-07-28 22:41:56 Lillian Barr [facility] NOTICE OF PRIVACY 2020-07-28 21:50:31 Doctor Unassigned, [facility] PRACTICES [place] [facility] CONSENT/REFUSAL FOR 2020-07-28 21:50:20 Doctor Unassigned, [facility] DIAGNOSIS AND TREATMENT [place] [facility] POCT GLUCOSE (AUTOMATED) 2020-06-29 23:35:00 [facility] [place] [facility] POCT GLUCOSE (AUTOMATED) 2020-06-29 18:04:00 Rebeca [facility] POCT GLUCOSE (AUTOMATED) 2020-06-29 13:54:00 [facility] [place] [facility] TRIGLYCERIDES 2020-06-29 11:20:00 Ellis Almeida [facility] BASIC METABOLIC PANEL 2020-06-29 11:20:00 [facility] (NA, K, CL, CO2, GLUCOSE, Medica l Branch BUN, CREATININE, CA) CBC WITH DIFF 2020-06-29 11:20:00 [facility] - [facility] SCREEN 2020-06-29 03:10:00 Favio Moscoso [facility] TRIAGE [facility] POCT GLUCOSE (AUTOMATED) 2020-06-28 22:46:00 Rebeca [facility] POCT GLUCOSE (AUTOMATED) 2020-06-28 18:53:00 Rebeca Laurence Uni versity of [facility] POCT GLUCOSE (AUTOMATED) 2020-06-28 18:01:00 Rebeca Laurence Bagley versity of [facility] POCT GLUCOSE (AUTOMATED) 2020-06-28 13:27:00 Rebeca Laurence Bagley versity of [facility] POCT GLUCOSE (AUTOMATED) 2020-06-28 11:48:00 Rebeca [facility] Yudi versity [facility] TRIGLYCERIDES 2020-06-28 10:27:00 Ellis Almeida [facility] LIPASE 2020-06-28 10:27:00 Rebeca [facility] MAGNESIUM 2020-06-28 10:27:00 Danis [facility] BASIC METABOLIC PANEL 2020-06-28 10:27:00 [facility] (NA, K, CL, CO2, GLUCOSE, Medica l Branch BUN, CREATININE, CA) ETHANOL 2020-06-28 10:27:00 Danis [facility] CBC WITH DIFF 2020-06-28 10:27:00 [facility] [place] [facility]SE ([facility]OMATED) 2020-06-28 10:10:00 Rebeca Laurence Bagley versity of [facility] POCT GLUCOSE (AUTOMATED) 2020-06-28 07:00:00 Rebeca Laurence aBgley versity of [facility] POCT GLUCOSE (AUTOMATED) 2020-06-28 05:48:00 Rebeca Laurence Bagley versity of [facility] POCT GLUCOSE (AUTOMATED) 2020-06-28 04:45:00 Rebeca Laurence Uni versity of [facility] POCT GLUCOSE (AUTOMATED) 2020-06-28 03:40:00 Rebeca Valerieprice Uni versity of [facility] POCT GLUCOSE (AUTOMATED) 2020-06-28 02:43:00 Rebeca [facility] Uni versity of [facility] POCT GLUCOSE (AUTOMATED) 2020-06-28 01:39:00 Rebeca Laurence Uni versity of [facility] POCT GLUCOSE (AUTOMATED) 2020-06-27 23:10:00 Rebeca [facility] Uni versity [facility] TRIGLYCERIDES 2020-06-27 23:08:00 [facility]SE ([facility]OMATED) 2020-06-27 21:29:00 Rebeca Laurence Uni versity of [facility] POCT GLUCOSE (AUTOMATED) 2020-06-27 19:54:00 Rebeca Laurence Uni versity of [facility] POCT GLUCOSE (AUTOMATED) 2020-06-27 18:59:00 Edtere Laurence Uni versity of [facility] POCT GLUCOSE (AUTOMATED) 2020-06-27 17:42:00 Edioncal, Laurence Uni versity of [facility] POCT GLUCOSE (AUTOMATED) 2020-06-27 16:50:00 Edtere Laurence Uni versity of [facility] POCT GLUCOSE (AUTOMATED) 2020-06-27 14:43:00 Edtere Laurence Uni versity of [facility] POCT GLUCOSE (AUTOMATED) 2020-06-27 13:19:00 Rebeca Laurence [place] versity of [facility] POCT GLUCOSE (AUTOMATED) 2020-06-27 12:18:00 Rebeca Laurence [place] versity [facility] TRIGLYCERIDES 2020-06-27 10:20:00 [facility] LIPASE 2020-06-27 10:20:00 [facility] [place] [facility] BASIC METABOLIC PANEL 2020-06-27 10:20:00 Rebeca [facility] (NA, K, CL, CO2, GLUCOSE, Medica l Branch BUN, CREATININE, CA) CBC WITH DIFF 2020-06-27 10:20:00 Rebeca [facility] POCT GLUCOSE (AUTOMATED) 2020-06-27 10:06:00 Rebeca Laurence [place] versity of [facility] POCT GLUCOSE (AUTOMATED) 2020-06-27 09:06:00 Rebeca COFCOprice [place] versity of [facility] POCT GLUCOSE (AUTOMATED) 2020-06-27 08:07:00 Rebeca COFCOprice [place] versity of [facility] POCT GLUCOSE (AUTOMATED) 2020-06-27 07:09:00 Edtere COFCOprice Uni versity of [facility] POCT GLUCOSE (AUTOMATED) 2020-06-27 06:02:00 Edlilawe, Valeriey Uni versity of [place] [facility] POCT GLUCOSE (AUTOMATED) 2020-06-27 04:52:00 [...] 2020-06-27 01:15:00 Edtere, [facility]cy Uni versity of [place] [facility] POCT GLUCOSE (AUTOMATED) 2020-06-27 00:07:00 EdValerie carranzay Uni versity of [place] [facility] POCT GLUCOSE (AUTOMATED) 2020-06-26 22:46:00 Edioncal, [facility] Uni versity of [place] [facility] TRIGLYCERIDES 2020-06-26 22:07:00 Ellis Almeida [facility] [place] [facility] POCT GLUCOSE (AUTOMATED) 2020-06-26 21:45:00 EdValerie carranzay Uni versity of [place] [facility] POCT GLUCOSE (AUTOMATED) 2020-06-26 20:38:00 Rebeca [facility] Uni versity of [place] [facility] POCT GLUCOSE (AUTOMATED) 2020-06-26 18:13:00 Laurence Jose Uni versity of [place] [facility] POCT GLUCOSE (AUTOMATED) 2020-06-26 17:03:00 Valerie Josey Uni versity of [place] [facility] LIPASE 2020-06-26 11:15:00 Rebeca [facility] f [place] [facility] LIPID PANEL (45090)(TOTAL 2020-06-26 11:15:00 Laurence Jose [facility] [place] CHOLESTEROL, Medical Branch TRIGLYCERIDES, HDL) GLYCOSYLATED HEMOGLOBIN 2020-06-26 11:15:00 Rebeca [facility] LOW-DENSITY LIPOPROTEIN, 2020-06-26 11:15:00 Laurence Jose Uni [facility] DIRECT Medical Branch POCT GLUCOSE (AUTOMATED) 2020-06-26 11:12:00 Laurence Jose Yudi [facility] CT ABDOMEN PELVIS W 2020-06-26 04:40:39 Kofi Beebe [facility] CONTRAST [facility] ASSIGNMENT OF BENEFITS 2020-06-26 03:16:02 Doctor Unasschiquita, [facility] [place] [facility] COVID-19 (ID NOW RAPID 2020-06-26 03:12:00 Kofi Beebe [facility] TESTING) Medical Branch LAB ONLY COVID 2020-06-26 03:12:00 Kofi Beebe [facility] INTERPRETATION [facility] Branch LIPASE 2020-06-26 02:54:00 Kofi Beebe [facility] COMP. METABOLIC PANEL 2020-06-26 02:54:00 Kofi Beebe [facility] ([id number]) Medical Branch CBC WITH DIFF 2020-06-26 02:54:00 Kofi Beebe [facility] POCT GLUCOSE (AUTOMATED) 2020-06-26 02:44:00 Kofi Beebe [facility] CONSENT/REFUSAL FOR 2020-06-26 02:29:58 Doctor Rachid, [facility] DIAGNOSIS AND TREATMENT [place] [facility] EXTERNAL PROVIDER RECORDS 2020-02-09 05:01:00 Doctor Rachid, [facility] Name [facility] Encounters Start End Encounter Admission Attending Care Care Encounter Source Date/Time Date/Time Type Type Clinicians Facility Department ID 2021-10-03 Inpatient Chetan Coleman [facility] [id number] [facility] 16:00:00 68 2021-09-29 Inpatient Chetan Coleman [facility] [id number] [facility] 17:00:00 79 2021-05-[address] [facility] [id number] Univers 17:56:10 ity of [facility] 2021-05-[address] [facility] [id number] Univers 17:48:01 ity [facility] 2021-05-[address] [facility] [id number] Univers 11:31[facility] 2021-10-03 2021-10-03 Outpatient [facility] [id number] [facility] 16:42:00 16:42:00 68 2021-09-29 2021-09-29 Outpatient [facility] [id number] [facility] 14:17:00 14:17:00 79 2021-09-25 2021-09-25 Outpatient [facility] [id number] [facility] 13:47:00 13:47:00 55 2021-09-25 2021-09-25 Outpatient Elective Chetan Coleman [facility] [id number] [facility] 13:47:00 13:47:00 55 2020-11-16 2020-11-16 Emergency Kelly, K [facility] [id number] [facility] 13:16:00 16:24:00 Shayla Pierre [id number] i ty of [place] [id number] [facility] [id number] [place] [id number] Branch 2020-11-16 2020-11-16 Orders Doctor JEROME [id number] [place] [address] 00:00:00 00:00:00 Only Unassigned, KYLE [id number] ity of [place] [facility] [id number] Sergio as [phone] [facility] 009 Branch 2020-07-28 2020-07-28 Emergency [facility] [id number] [facility] 16:00:00 17:40:00 Lillian Pierre [id number] i ty of [place] [id number] [facility] [id number] [place] [id number] Branch 2020-07-28 2020-07-28 Orders Doctor JEROME [id number] [facility] 00:00:00 00:00:00 Only Unassigned, KYLE [id number] ity of [place] [facility] [id number] Sergio as [id number] [facility] 009 Branch 2020-07-01 2020-07-01 Transition Sam Correa [id number] [facility] 00:00:00 00:00:00 of Care Annita Bucky [id number] i ty of [place] [id number] [facility] 403 Branch 2020-07-01 2020-07-01 Transition Sam Correa [id number] 00:00:00 00:00:00 of Care Annita Bucky [id number] [place] [id number] [facility] 2020-06-25 2020-06-29 [facility] 1.2.840. 114 [id number] [facility] 20:44:00 19:29:00 Encounter Laurence Jose [id number] ity of [place] [id number] [facility] [place] [id number] [facility] [address] [place] [address] 2020-06-25 2020-06-29 [facility] 1.2.840. 114 [id number] 20:44:00 19:29:00 Encounter Lauernce Jose [id number] [place] [id number] [place] [id number] [facility] 2020-06-25 2020-06-25 Orders Doctor JEROME [id number] Univers 00:00:00 00:00:00 Only Unassigned, KYLE [id number] ity of [place] [facility] [id number] Sergio as [id number] [facility] 009 Branch 2020-06-25 2020-06-25 Orders Doctor QUEENIE [id number] 00:00:00 00:00:00 Only Unassigned, KYLE [id number] [place] [facility] 4.2.7.2.686 [id number] 009 2020-02-09 2020-02-09 Telemedici [facility] [id number] [facility] 15:04:39 15:53:06 ne Visit Cole Pierre [id number] [id number] [phone] Me dical [address] 2020-02-09 2020-02-09 [facility]ici [facility] 1.2.840.114 [id number] 15:04:39 15:53:06 ne Visit Cole Cohen Ignacio [id number] [place] [id number] Professio [id number] [address] 2020-02-09 2020-02-09 Outpatient [facility] [id number] [facility] 15:00:00 15:00:00 COLE medina of [facility] 2020-02-09 2020-02-09 Orders Doctor QUEENIE 1.2.840.114 [id number] [facility] 00:00:00 00:00:00 Only Unassigned, KYLE [id number] ity of [place] [facility] [id number] Sergio as [phone] [address] 2020-02-09 2020-02-09 Orders Doctor QUEENIE 1.2.840.114 [id number] 00:00:00 00:00:00 Only Unassigned, KYLE [id number] [place] [facility] 4.2.7.2.[id number] [facility] 2020-02-07 2020-02-07 Telephone [facility] 1.2.840.114 [id number] [facility] 00:00:00 00:00:00 Cole Pierre [id number] i ty [id number] [phone] [place] dical [address] 2020-02-07 2020-02-07 Telephone [facility] 1.2.840.114 [id number] 00:00:00 00:00:00 Cole Pierre [id number] [place] [id number] Professio [id number] [address] Results Test Description Test Time Test Comments Results Result Comments Source Glucose Fingerstick 2021-10-03 20:01:00 Test Item Value Reference Range Interpretation Comme nts Glucose Fingerstick (test code = WGLUC) 247 mg/dL 70-115 COMPOSITION MIXER Edenilson Santana Glucose [id number] 17:29:00 Test Item Value Reference Range Interpretation Comments Glucose Fingerstick 296 mg/dL 70-115 COMPOSITION MIXER DANIEL (test code = WGLUC) DES T Glucose [id number] 14:49:00 Test Item Value Reference Range Interpretation Comments Glucose Fingerstick 334 mg/dL 70-115 COMPOSITION MIXER Benton (test code = WGLUC) SvetneerajkN otify RN or MD OR MICRO [id number] 16:15:00 Test Item Value Reference Range Interpretation [...] possible exception of ORMICCULT2.1) Ceftaroline. LEFT HANDGlucose [id number] 15:52:00 Test Item Value Reference Range Interpretation Comments Glucose Fingerstick 199 mg/dL 70-115 COMPOSITION MIXER [place] (test code = WGLUC) Svetneerajk [id number] 19:20:17 Test Item Value Reference Range Interpretation Comments APPEARANCE (test code = Clear Clear 2685287429) COLOR (test code = Mindy Yellow A 9353114142) PH (test code = 4.8-8.0 1761937806) SP GRAVITY (test code = 1.003-1.030 6556667403) GLU U QUAL (test code = 150 mg/dL Normal A 6211788900) BLOOD (test code = Negative Negative 7952294109) KETONES (test code = Negative Negative 4009487068) PROTEIN (test code = Negative Negative 2887-8) UROBILIN (test code = Normal Normal 0328092965) BILIRUBIN (test code = Negative Negative 2488717102) NITRITE (test code = Negative Negative 4924611462) LEUK BURTON (test code = Negative Negative 0891726918) RBC/HPF (test code = See_Comment [Autom ated message] 7805630315) The system CDNlion generated this result transmit j luis reference range : 0 - 3 HPF. The refe rence range was not u sed to interpret th is result as normal/abnormal . WBC/HPF (test code = See_Comment [Autom ated message] 0185857952) The system CDNlion generated this result transmit j luis reference range : 0 - 5 HPF. The refe rence range was not u sed to interpret th is result as normal/abnormal . BACTERIA (test code = Negative Negative 1697311462) MUCOUS (test code = Moderate Negative LPF A 7484564720) Lab Interpretation (test Abnormal code = 44268-7) [id number] 19:18:04 Test Item Value Reference Range Interpretation Comments MAGNESIUM (test code = 9183888098) 1.9 mg/dL 1.7-2.4 Lab Interpretation (test code = Normal 35768-8) [facility]. METABOLIC PANEL (22079)2020-11-16 19:17:44 Test Item Value Reference Range Interpretation Comments NA (test code = 138 mmol/L 135-145 5075101184) K (test code = 3.9 mmol/L 3.5-5.0 4310085698) CL (test code = 100 mmol/L 98-108 7084559912) CO2 TOTAL (test code = 28 mmol/L 23-31 8025549163) AGAP (test code = 2-16 2028466854) BUN (test code = 15 mg/dL 7-23 0967767046) GLUCOSE (test code = 215 mg/dL 70-110 H 9143385342) CREATININE (test code = 0.88 mg/dL 0.60-1.25 4754922398) TOTAL BILI (test code = 1.6 mg/dL 0.1-1.1 H 0745864247) CALCIUM (test code = 9.6 mg/dL 8.6-10.6 5759363884) T PROTEIN (test code = 7.4 g/dL 6.3-8.2 1612565288) ALBUMIN (test code = 4.6 g/dL 3.5-5.0 1738128936) ALK PHOS (test code = 90 U/L 34-122 6154139451) ALTv (test code = 15 U/L 5-50 1742-6) AST(SGOT) (test code = 17 U/L 13-40 2915313541) eGFR (test code = mL/min/1.73m2 9163504616) OSKAR (test code = OSKAR) Association of [...] tests). Lab Interpretation Abnormal (test code = 54285-2) [facility]17:23 Test Item Value Reference Range Interpretation Comments LIPASE (test code = 6129834441) 87 U/L 0-220 Lab Interpretation (test code = Normal 15959-1) [facility] WITH [id number] 19:06:43 Test Item Value Reference Range Interpretation Comments WBC (test code = See_Comment [Automated 6390-2) message] The sy stem which generated this [...] RDW-SD (test code = 39.0 fL 38.5-51.6 03804-8) RDW-CV (test code = 13.9 % 12.1-15.4 788-0) PLT (test code = See_Comment [Automated 777-3) message] The sy stem which generated this result transmitted reference range : 150 - 328 10*3/ ?L. The reference r kristina was not used to interpret this result as normal/abnormal . MPV (test code = 9.4 fL 9.8-13.0 L 27958-8) NRBC/100 WBC (test See_Comment [Automat ed code = 6567098915) message] The system which generated this result transmitted reference range : 0.0 - 10.0 /100 WBCs. The refer ence range was not u sed to interpret th is result as normal/abnormal . NRBC x10^3 (test code <0.01 See_Comment [Auto mated = 4503350214) message] The s ystem which generated this result transmitted reference range : 10*3/?L. The reference range was not used to interpret this result as normal/abnormal . GRAN MAT (NEUT) % 79.9 % (test code = 770-8) IMM GRAN % (test code 0.60 % = 6916772350) LYMPH % (test code = 14.4 % 736-9) MONO % (test code = 3.9 % 5905-5) EOS % (test code = 0.6 % 713-8) BASO % (test code = 0.6 % 706-2) GRAN MAT x10^3(ANC) 7.25 10*3/uL 1.99-6.95 H (test code = 6123525566) IMM GRAN x10^3 (test 0.05 10*3/uL 0.00-0.06 code = 9212128994) LYMPH x10^3 (test code 1.30 10*3/uL 1.09-3.23 = 731-0) MONO x10^3 (test code 0.35 10*3/uL 0.36-1.02 L = 742-7) EOS x10^3 (test code = 0.05 10*3/uL 0.06-0.53 L 711-2) BASO x10^3 (test code 0.05 10*3/uL 0.01-0.09 = 704-7) Lab Interpretation Abnormal (test code = 83126-1) [facility] GLUCOSE (AUTOMATED)2020-11-16 18:27:21 Test Item Value Reference Range Interpretation Comments POCT GLU (test code = 3458251480) 218 mg/dL 70-110 H Lab Interpretation (test code = Abnormal 57595-8) [facility] GLUCOSE (AUTOMATED)2020-06-29 23:37:00 Test Item Value Reference Range Interpretation Comments POCT GLU (test code = 6448788387) 217 mg/dL 70-110 H Lab Interpretation (test code = Abnormal 64588-4) [facility] GLUCOSE (AUTOMATED)2020-06-29 18:58:00 Test Item Value Reference Range Interpretation Comments POCT GLU (test code = 7579439012) 214 mg/dL 70-110 H Lab Interpretation (test code = Abnormal 15062-4) [facility] GLUCOSE (AUTOMATED)2020-06-29 14:15:00 Test Item Value Reference Range Interpretation Comments POCT GLU (test code = 8148724650) 182 mg/dL 70-110 H Lab Interpretation (test code = Abnormal 54905-4) [facility] with Oeiapwfeacuw2252-43-56 13:44:00 Test Item Value Reference Range Interpretation [...] (test code = 37.0 fL 38.5-51.6 L 01169-9) RDW-CV (test code = 12.2 % 12.1-15.4 788-0) PLT (test code = See_Comment L [Automated 777-3) message] The sy stem which generated this result transmitted reference range : 150 - 328 10*3/ ?L. The reference r kristina was not used to interpret this result as normal/abnormal . MPV (test code = 9.9 fL 9.8-13 38523-0) NRBC/100 WBC (test See_Comment [Automat ed code = 9503018843) message] The system which generated this result transmitted reference range : 0.0 - 10.0 /100 WBCs. The refer ence range was not u sed to interpret th is result as normal/abnormal . NRBC x10^3 (test code <0.01 See_Comment [Auto mated = 3944012795) message] The s ystem which generated this result transmitted reference range : 10*3/?L. The reference range was not used to interpret this result as normal/abnormal . GRAN MAT (NEUT) % 61.0 % (test code = 770-8) IMM GRAN % (test code 0.30 % = 1346280567) LYMPH % (test code = 29.5 % 736-9) MONO % (test code = 5.9 % 5905-5) EOS % (test code = 2.4 % 713-8) BASO % (test code = 0.9 % 706-2) GRAN MAT x10^3(ANC) 2.07 10*3/uL 1.99-6.95 (test code = 5240772001) IMM GRAN x10^3 (test <0.03 0-0.06 code = 3966972574) LYMPH x10^3 (test code 1.00 10*3/uL 1.09-3.23 L = 731-0) MONO x10^3 (test code 0.20 10*3/uL 0.36-1.02 L = 742-7) EOS x10^3 (test code = 0.08 10*3/uL 0.06-0.53 711-2) BASO x10^3 (test code 0.03 10*3/uL 0.01-0.09 = 704-7) Lab Interpretation Abnormal (test code = 81565-0) [facility]2020-12-19 13:22:00 Test Item Value Reference Range Interpretation Comments TRIG (test code = 4203544005) 468 mg/dL 30-170 H Lab Interpretation (test code = Abnormal 78788-8) [facility] (NA, K, CL, CO2, GLUCOSE, BUN, CREATININE, CA)2020-06-29 13:12:00 Test Item Value Reference Range Interpretation Comments NA (test code = 139 mmol/L 135-145 7170430359) K (test code = 3.6 mmol/L 3.5-5 7215641446) CL (test code = 104 mmol/L 98-108 1160279038) CO2 TOTAL (test code = 25 mmol/L 23-31 1620789501) AGAP (test code = 2-16 7776537948) BUN (test code = 4 mg/dL 7-23 L 4855840060) GLUCOSE (test code = 163 mg/dL 70-110 H 1788926153) CREATININE (test code = 0.74 mg/dL 0.6-1.25 0963023206) CALCIUM (test code = 9.4 mg/dL 8.6-10.6 2941478779) eGFR Calculation mL/min/1.73m2 (Non-) (test code = 6218552840) eGFR Calculation mL/min/1.73m2 () (test code = 0307114387) OSKAR (test code = OSKAR) Association of [...] tests). Lab Interpretation Abnormal (test code = 85380-2) [facility] / [facility] - DRUG SCREEN [id number] 03:44:00 Test Item Value Reference Range Interpretation Comments BENZO U (test code = Presumptive Negative A 5888003051) Positive UADREY U (test code = Negative Negative 8826686986) AMPHET (test code = Negative Negative 1944492917) THC (test code = Presumptive Negative A Confirmatio n of 0367681184) Positive Presumptive Positive THC result requires physician order . METHADONE (test code Negative Negative = 5437986704) Meth U (test code = Negative Negative 7582906181) OPIATES (test code = Presumptive Negative A 1676636923) Positive Cocaine Metabolite Negative Negative (test code = 5821017633) PROPOXY (test code = Negative Negative 4056625402) Tric U (test code = Presumptive Negative A Confirma tion of 1840685884) Positive Presumptive Positive TCA result requires physician order and this will b e sent to referen ce lab. PCP (test code = Negative Negative 8924951242) OXYCOD (test code = Negative Negative 1979610325) OSKAR (test code = Urine Drug Cutoff [...] testing). Lab Interpretation Abnormal (test code = 78768-0) [facility]OL2020-12-19 01:23:00 Test Item Value Reference Range Interpretation Comments ALCOHOL (test code = <10 mg/dL 9401447280) OSKAR (test code = OSKAR) <10 Pypsyyom54-162 Toxic>100 Depression of [employer] SALES REPRESENTATIVE>400 Fatalities Reported [facility] GLUCOSE (AUTOMATED)2020-06-28 23:30:00 Test Item Value Reference Range Interpretation Comments POCT GLU (test code = 8633279164) 234 mg/dL 70-110 H Lab Interpretation (test code = Abnormal 10623-7) [facility] GLUCOSE (AUTOMATED)2020-06-28 19:09:00 Test Item Value Reference Range Interpretation Comments POCT GLU (test code = 7216324760) 195 mg/dL 70-110 H Lab Interpretation (test code = Abnormal 29034-3) [facility] GLUCOSE (AUTOMATED)2020-06-28 18:16:00 Test Item Value Reference Range Interpretation Comments POCT GLU (test code = 6704492939) 113 mg/dL 70-110 H Lab Interpretation (test code = Abnormal 79739-3) [facility] 15[facility]54:00 Test Item Value Reference Range Interpretation Comments MAGNESIUM (test code = 2452765881) 1.7 mg/dL 1.7-2.4 Lab Interpretation (test code = Normal 82147-5) [facility] GLUCOSE (AUTOMATED)2020-06-28 14:51:00 Test Item Value Reference Range Interpretation Comments POCT GLU (test code = 9870376084) 94 mg/dL 70-110 Lab Interpretation (test code = Normal 15900-0) [facility] with Vyocuyzikpmw2991-45-39 14:08:00 Test Item Value Reference Range Interpretation [...] (test code = 36.2 fL 38.5-51.6 L 28691-1) RDW-CV (test code = 11.9 % 12.1-15.4 L 788-0) PLT (test code = See_Comment L [Automated 777-3) message] The sy stem which generated this result transmitted reference range : 150 - 328 10*3/ ?L. The reference r kristina was not used to interpret this result as normal/abnormal . MPV (test code = 10.0 fL 9.8-13 03528-7) NRBC/100 WBC (test See_Comment [Automat ed code = 2110423565) message] The system which generated this result transmitted reference range : 0.0 - 10.0 /100 WBCs. The refer ence range was not u sed to interpret th is result as normal/abnormal . NRBC x10^3 (test code <0.01 See_Comment [Auto mated = 6345793383) message] The s ystem which generated this result transmitted reference range : 10*3/?L. The reference range was not used to interpret this result as normal/abnormal . GRAN MAT (NEUT) % 59.7 % (test code = 770-8) IMM GRAN % (test code 0.30 % = 3598584271) LYMPH % (test code = 33.3 % 736-9) MONO % (test code = 4.8 % 5905-5) EOS % (test code = 1.3 % 713-8) BASO % (test code = 0.6 % 706-2) GRAN MAT x10^3(ANC) 1.86 10*3/uL 1.99-6.95 L (test code = 7591739959) IMM GRAN x10^3 (test <0.03 0-0.06 code = 7688490200) LYMPH x10^3 (test code 1.04 10*3/uL 1.09-3.23 L = 731-0) MONO x10^3 (test code 0.15 10*3/uL 0.36-1.02 L = 742-7) EOS x10^3 (test code = 0.04 10*3/uL 0.06-0.53 L 711-2) BASO x10^3 (test code <0.03 0.01-0.09 = 704-7) Lab Interpretation Abnormal (test code = 19193-8) [facility] Metabolic Panel (NA, K, CL, CO2, GLUCOSE, BUN, CREATININE, CA)2020-06-28 13:02:00 Test Item Value Reference Range Interpretation Comments NA (test code = 140 mmol/L 135-145 5062173146) K (test code = 3.0 mmol/L 3.5-5 L 3641930689) CL (test code = 106 mmol/L 98-108 3882115622) CO2 TOTAL (test code = 25 mmol/L 23-31 6987822767) AGAP (test code = 2-16 2222992783) BUN (test code = <2 7-23 L 8603580479) GLUCOSE (test code = 107 mg/dL 70-110 9652915579) CREATININE (test code = 0.59 mg/dL 0.6-1.25 L 3837172146) CALCIUM (test code = 8.9 mg/dL 8.6-10.6 1289562251) eGFR Calculation mL/min/1.73m2 (Non-) (test code = 4208446028) eGFR Calculation mL/min/1.73m2 () (test code = 6079875321) OSKAR (test code = OSKAR) Association of [...] tests). Lab Interpretation Abnormal (test code = 43568-7) [facility]TR[facility]2020-12-18 13:02:00 Test Item Value Reference Range Interpretation Comments TRIG (test code = 4189007101) 519 mg/dL 30-170 H Lab Interpretation (test code = Abnormal 32863-1) [facility] CenterL[facility]2020-12-18 12:45:00 Test Item Value Reference Range Interpretation Comments LIPASE (test code = 6144714877) 27 U/L 0-220 Lab Interpretation (test code = Normal 17299-8) [facility]PO[facility]AUT[facility]ATED)2020-06-28 11:51:00 Test Item Value Reference Range Interpretation Comments POCT GLU (test code = 9472407225) 111 mg/dL 70-110 H Lab Interpretation (test code = Abnormal 72073-7) [facility] CenterLAB ONLY COVID HRLYVCWIAFOIKM8603-89-78 11:31:00COVID DMT InterpretationInterpretation/Recommendations: Molecular NAAT Tests for [...] COVID-19 testing the patient has had at [facility], including molecular NAAT testing (more commonly known as PCR testing and Rapid ID Now testing) and antibody testing. It does not take into account any testing that a patient has had outsid e of the [facility] medical record. [facility] LABORATORY SERVICESCOVID JbgzvtnCGGB-PlZ-9 Rapid ID NOW (no units) ? ? Date ? Value ? 06/25/2020 ? Not Detected ? [facility] LABORATORY SERVICES [facility] GLUCOSE (AUTOMATED)2020-06-28 10:16:00 Test Item Value Reference Range Interpretation Comments POCT GLU (test code = 7736845785) 109 mg/dL 70-110 Lab Interpretation (test code = Normal 38473-0) [facility] GLUCOSE (AUTOMATED)2020-06-28 09:08:00 Test Item Value Reference Range Interpretation Comments POCT GLU (test code = 5321727492) 152 mg/dL 70-110 H Lab Interpretation (test code = Abnormal 97314-7) [facility] GLUCOSE (AUTOMATED)2020-06-28 06:20:00 Test Item Value Reference Range Interpretation Comments POCT GLU (test code = 4329716200) 84 mg/dL 70-110 Lab Interpretation (test code = Normal 11148-3) [facility] GLUCOSE (AUTOMATED)2020-06-28 04:47:00 Test Item Value Reference Range Interpretation Comments POCT GLU (test code = 6375623162) 95 mg/dL 70-110 Lab Interpretation (test code = Normal 10208-2) [facility] GLUCOSE (AUTOMATED)2020-06-28 03:43:00 Test Item Value Reference Range Interpretation Comments POCT GLU (test code = 2363032978) 123 mg/dL 70-110 H Lab Interpretation (test code = Abnormal 96281-2) [facility])2020-06-28 02:47:00 Test Item Value Reference Range Interpretation Comments POCT GLU (test code = 1961567137) 121 mg/dL 70-110 H Lab Interpretation (test code = Abnormal 74976-3) [facility])2020-06-28 02:17:00 Test Item Value Reference Range Interpretation Comments POCT GLU (test code = 5266119218) 94 mg/dL 70-110 Lab Interpretation (test code = Normal 63767-4) [facility]TR[facility]ERID[facility]2020-12-18 01:21:00 Test Item Value Reference Range Interpretation Comments TRIG (test code = 1095117337) 647 mg/dL 30-170 H Lab Interpretation (test code = Abnormal 87037-0) [facility] GLUCOSE (AUTOMATED)2020-06-27 23:29:00 Test Item Value Reference Range Interpretation Comments POCT GLU (test code = 2952852023) 87 mg/dL 70-110 Lab Interpretation (test code = Normal 78372-4) [facility] 21:36:00 Test Item Value Reference Range Interpretation Comments POCT GLU (test code = 1818393541) 85 mg/dL 70-110 Lab Interpretation (test code = Normal 73109-9) [facility] 19:55:00 Test Item Value Reference Range Interpretation Comments POCT GLU (test code = 1389788502) 91 mg/dL 70-110 Lab Interpretation (test code = Normal 38368-6) [facility] 19:01:00 Test Item Value Reference Range Interpretation Comments POCT GLU (test code = 5372332702) 125 mg/dL 70-110 H Lab Interpretation (test code = Abnormal 97172-7) [facility]2020-06-27 17:46:00 Test Item Value Reference Range Interpretation Comments POCT GLU (test code = 7735633005) 122 mg/dL 70-110 H Lab Interpretation (test code = Abnormal 82790-2) [facility] 16:56:00 Test Item Value Reference Range Interpretation Comments POCT GLU (test code = 1416882969) 98 mg/dL 70-110 Lab Interpretation (test code = Normal 08749-7) [facility] GLUCOSE (AUTOMATED)2020-06-27 14:47:00 Test Item Value Reference Range Interpretation Comments POCT GLU (test code = 9299028242) 209 mg/dL 70-110 H Lab Interpretation (test code = Abnormal 44893-4) [facility] GLUCOSE (AUTOMATED)2020-06-27 14:47:00 Test Item Value Reference Range Interpretation Comments POCT GLU (test code = 7228615607) 181 mg/dL 70-110 H Lab Interpretation (test code = Abnormal 48821-4) [facility] with Jkrlnfsesklw4230-21-76 12:55:00 Test Item Value Reference Range Interpretation [...] (test code = 35.6 fL 38.5-51.6 L 39518-4) RDW-CV (test code = 11.8 % 12.1-15.4 L 788-0) PLT (test code = See_Comment L [Automated 777-3) message] The sy stem which generated this result transmitted reference range : 150 - 328 10*3/ ?L. The reference r kristina was not used to interpret this result as normal/abnormal . MPV (test code = 9.9 fL 9.8-13 45731-2) NRBC/100 WBC (test See_Comment [Automat ed code = 4214171131) message] The system which generated this result transmitted reference range : 0.0 - 10.0 /100 WBCs. The refer ence range was not u sed to interpret th is result as normal/abnormal . NRBC x10^3 (test code <0.01 See_Comment [Auto mated = 7547241957) message] The s ystem which generated this result transmitted reference range : 10*3/?L. The reference range was not used to interpret this result as normal/abnormal . GRAN MAT (NEUT) % 59.3 % (test code = 770-8) IMM GRAN % (test code 0.30 % = 4382035181) LYMPH % (test code = 33.7 % 736-9) MONO % (test code = 4.7 % 5905-5) EOS % (test code = 1.3 % 713-8) BASO % (test code = 0.7 % 706-2) GRAN MAT x10^3(ANC) 1.78 10*3/uL 1.99-6.95 L (test code = 4564354327) IMM GRAN x10^3 (test <0.03 0-0.06 code = 2936205767) LYMPH x10^3 (test code 1.01 10*3/uL 1.09-3.23 L = 731-0) MONO x10^3 (test code 0.14 10*3/uL 0.36-1.02 L = 742-7) EOS x10^3 (test code = 0.04 10*3/uL 0.06-0.53 L 711-2) BASO x10^3 (test code <0.03 0.01-0.09 = 704-7) Lab Interpretation Abnormal (test code = 38558-2) [facility] GLUCOSE (AUTOMATED)2020-06-27 12:26:00 Test Item Value Reference Range Interpretation Comments POCT GLU (test code = 0096265538) 238 mg/dL 70-110 H Lab Interpretation (test code = Abnormal 49264-4) [facility] GLUCOSE (AUTOMATED)2020-06-27 12:20:00 Test Item Value Reference Range Interpretation Comments POCT GLU (test code = 2923704728) 216 mg/dL 70-110 H Lab Interpretation (test code = Abnormal 44363-9) [facility]2020-12-17 12:03:00 Test Item Value Reference Range Interpretation Comments TRIG (test code = 0044155644) 810 mg/dL 30-170 H Lab Interpretation (test code = Abnormal 25020-5) [facility] Met[facility] (NA, K, CL, CO2, GLUCOSE, BUN, CREATININE, CA)2020-06-27 11:56:00 Test Item Value Reference Range Interpretation Comments NA (test code = 135 mmol/L 135-145 3217922001) K (test code = 3.6 mmol/L 3.5-5 4962799575) CL (test code = 104 mmol/L 98-108 8161893391) CO2 TOTAL (test code = 23 mmol/L 23-31 2301418335) AGAP (test code = 2-16 1063350673) BUN (test code = 5 mg/dL 7-23 L 8208686826) GLUCOSE (test code = 191 mg/dL 70-110 H 2078965630) CREATININE (test code = 0.56 mg/dL 0.6-1.25 L 0136878821) CALCIUM (test code = 8.9 mg/dL 8.6-10.6 3468807435) eGFR Calculation mL/min/1.73m2 (Non-) (test code = 4295639200) eGFR Calculation mL/min/1.73m2 () (test code = 8683276862) OSKAR (test code = OSKAR) Association of [...] tests). Lab Interpretation Abnormal (test code = 91394-3) [facility]2020-12-[facility] 11:55:00 Test Item Value Reference Range Interpretation Comments LIPASE (test code = 1073475975) 40 U/L 0-220 Lab Interpretation (test code = Normal 13345-7) [facility] GLUCOSE (AUTOMATED)2020-06-27 09:09:00 Test Item Value Reference Range Interpretation Comments POCT GLU (test code = 4517058675) 185 mg/dL 70-110 H Lab Interpretation (test code = Abnormal 72100-0) [facility] GLUCOSE (AUTOMATED)2020-06-27 08:09:00 Test Item Value Reference Range Interpretation Comments POCT GLU (test code = 2264358573) 124 mg/dL 70-110 H Lab Interpretation (test code = Abnormal 06597-5) [facility] GLUCOSE (AUTOMATED)2020-06-27 07:11:00 Test Item Value Reference Range Interpretation Comments POCT GLU (test code = 0437200132) 104 mg/dL 70-110 Lab Interpretation (test code = Normal 77208-0) [facility] GLUCOSE (AUTOMATED)2020-06-27 06:04:00 Test Item Value Reference Range Interpretation Comments POCT GLU (test code = 7280678997) 97 mg/dL 70-110 Lab Interpretation (test code = Normal 72962-4) [facility] GLUCOSE (AUTOMATED)2020-06-27 04:54:00 Test Item Value Reference Range Interpretation Comments POCT GLU (test code = 9247544688) 54 mg/dL 70-110 L Lab Interpretation (test code = Abnormal 48775-3) [facility]2020-06-27 04:04:00 Test Item Value Reference Range Interpretation Comments POCT GLU (test code = 7790010332) 88 mg/dL 70-110 Lab Interpretation (test code = Normal 95884-4) [facility] 03:32:00 Test Item Value Reference Range Interpretation Comments POCT GLU (test code = 5749376449) 104 mg/dL 70-110 Lab Interpretation (test code = Normal 36101-8) [facility]2020-[facility]27 03:05:00 Test Item Value Reference Range Interpretation Comments POCT GLU (test code = 4647122975) 68 mg/dL 70-110 L Lab Interpretation (test code = Abnormal 67120-1) [facility]2020-[facility]27 02:05:00 Test Item Value Reference Range Interpretation Comments POCT GLU (test code = 1155861464) 113 mg/dL 70-110 H Lab Interpretation (test code = Abnormal 21862-8) [facility]27 01:21:00 Test Item Value Reference Range Interpretation Comments POCT GLU (test code = 2224914830) 122 mg/dL 70-110 H Lab Interpretation (test code = Abnormal 72889-0) [facility]27 00:09:00 Test Item Value Reference Range Interpretation Comments POCT GLU (test code = 5506645682) 125 mg/dL 70-110 H Lab Interpretation (test code = Abnormal 78268-6) [facility]2020-12-16 23:47:00 Test Item Value Reference Range Interpretation Comments TRIG (test code = 3637880963) 1086 mg/dL 30-170 H Lab Interpretation (test code = Abnormal 29614-2) [facility] GLUCOSE (AUTOMATED)2020-06-26 23:12:00 Test Item Value Reference Range Interpretation Comments POCT GLU (test code = 0731955212) 175 mg/dL 70-110 H Lab Interpretation (test code = Abnormal 48224-1) [facility] GLUCOSE (AUTOMATED)2020-06-26 23:12:00 Test Item Value Reference Range Interpretation Comments POCT GLU (test code = 7377583874) 81 mg/dL 70-110 Lab Interpretation (test code = Normal 50389-4) [facility] GLUCOSE (AUTOMATED)2020-06-26 22:50:00 Test Item Value Reference Range Interpretation Comments POCT GLU (test code = 2770588964) 88 mg/dL 70-110 Lab Interpretation (test code = Normal 26755-0) [facility] GLUCOSE (AUTOMATED)2020-06-26 22:26:00 Test Item Value Reference Range Interpretation Comments POCT GLU (test code = 4383553715) 91 mg/dL 70-110 Lab Interpretation (test code = Normal 32703-8) [facility] GLUCOSE (AUTOMATED)2020-06-26 17:06:00 Test Item Value Reference Range Interpretation Comments POCT GLU (test code = 5453848713) 227 mg/dL 70-110 H Lab Interpretation (test code = Abnormal 12023-3) [facility] CenterLOW-DENSITY LIPOPROTEIN, [id number] 16:31:00 Test Item Value Reference Range Interpretation Comments dLDL Chol (test code = <30 See_Comment [Aut omated message] 53755-1) The system CDNlion generated this result transmitted ref erence range: <130 mg/ dL. The reference range was not used to int erpret this result as normal/abnormal . Lab Interpretation (test Normal code = 40207-5) [facility] (31857)(TOTAL CHOLESTEROL, TRIGLYCERIDES, HDL)2020-06-26 13:16:00 Test Item Value Reference Range Interpretation Comments CHOL (test code = 217 mg/dL 120-200 H 0996003959) HDL (test code = 13 mg/dL >40 L 2439197624) HDLC RATIO (test code = See_Comment H [Au tomated message] 4215663220) The system CDNlion generated this result transmit j luis reference range : <=5.0. The refe rence range was not u sed to interpret th is result as normal/abnormal . TRIG (test code = 1337 mg/dL 30-170 H 1301781874) LDL CHOL (test code = Unable to calculate 58341-4) LDL due to elev ated triglyceride le abena greater than 40 0 mg/dL. VLDL (test code = Unable to calculate 1968909033) VLDL due to yohana vated triglyceride le abena greater than 71 0 mg/dL. Lab Interpretation Abnormal (test code = 42114-5) [facility]2020-12-16 13:03:00 Test Item Value Reference Range Interpretation Comments LIPASE (test code = 6885695188) 60 U/L 0-220 Lab Interpretation (test code = Normal 09885-5) [facility] CenterGLYCOSYLATED HEMOGLOBIN (A1C)2020-06-26 12:46:00 Test Item Value Reference Range Interpretation Comments HGB A1C (test code = 9.2 % 4-6 H 4548-4) OSKAR (test code = OSKAR) %A1C (NGSP) Interpretation (ADA)4.8-5.6 ? ? Normal or (Non-Diabetic Range)5.7-6.4 ? ? Increased Risk (Pre-Diabetic)>6.5 ?Diabetes Indicated Lab Interpretation Abnormal (test code = 99476-4) [facility] GLUCOSE (AUTOMATED)2020-06-26 11:24:00 Test Item Value Reference Range Interpretation Comments POCT GLU (test code = 1188747987) 209 mg/dL 70-110 H Lab Interpretation (test code = Abnormal 72940-2) [facility] ABDOMEN PELVIS W [id number] 05:55:56Impression: 1. Peripancreatic inflammation, likely representing acute [...] demonstrated in the upper abdomen. RL: 2824AFC: 36848 End of Report Exam: CT Abdomen and [...] demonstrated in the upper abdomen. RL: 2824AFC: 00694Pqe of Report [facility] NOW RAPID TESTING)2020-06-26 03:44:00 Test Item Value Reference Range Interpretation Comments SARS-CoV-2 Rapid ID NOW Not Detected Not Detected (test code = 43536-8) OSKAR (test code = OSKAR) ID NOW COVID-19 Assay is an isothermal nucleic acid amplification test intended for the qualitative detection of nucleic acid from SARS-CoV-2 viral RNA in nasopharyngeal (NECK PINNER) specimens. It is used under Emergency Use [...] indicated. Lab Interpretation Normal (test code = 09364-0) [facility]. METABOLIC PANEL (45546)2020-06-26 03:17:00 Test Item Value Reference Range Interpretation Comments NA (test code = 136 mmol/L 135-145 9941779467) K (test code = 4.3 mmol/L 3.5-5 4120148710) CL (test code = 97 mmol/L 98-108 L 7319574747) CO2 TOTAL (test code = 31 mmol/L 23-31 0732889137) AGAP (test code = 2-16 7292960019) BUN (test code = 7 mg/dL 7-23 9309242851) GLUCOSE (test code = 220 mg/dL 70-110 H 2593459607) CREATININE (test code = 0.68 mg/dL 0.6-1.25 3806192065) TOTAL BILI (test code = 1.6 mg/dL 0.1-1.1 H 2145726165) CALCIUM (test code = 9.4 mg/dL 8.6-10.6 7803928877) T PROTEIN (test code = 7.6 g/dL 6.3-8.2 2296296425) ALBUMIN (test code = 4.4 g/dL 3.5-5 7430183896) ALK PHOS (test code = 103 U/L 34-122 6490844906) ALTv (test code = 113 U/L 5-50 H 1742-6) AST(SGOT) (test code = 87 U/L 13-40 H 4920503758) eGFR Calculation mL/min/1.73m2 (Non-) (test code = 7393260387) eGFR Calculation mL/min/1.73m2 () (test code = 8560337096) OSKAR (test code = OSKAR) Association of [...] tests). Lab Interpretation Abnormal (test code = 36959-0) [facility]2020-12-16 03:16:00 Test Item Value Reference Range Interpretation Comments LIPASE (test code = 9502595996) 57 U/L 0-220 Lab Interpretation (test code = Normal 78544-2) [facility] WITH [id number] 03:00:00 Test Item Value Reference Range Interpretation [...] (test code = 35.3 fL 38.5-51.6 L 65752-0) RDW-CV (test code = 11.9 % 12.1-15.4 L 788-0) PLT (test code = See_Comment L [Automated 777-3) message] The sy stem which generated this result transmitted reference range : 150 - 328 10*3/ ?L. The reference r kristina was not used to interpret this result as normal/abnormal . MPV (test code = 9.3 fL 9.8-13 L 40988-0) NRBC/100 WBC (test See_Comment [Automat ed code = 1274461078) message] The system which generated this result transmitted reference range : 0.0 - 10.0 /100 WBCs. The refer ence range was not u sed to interpret th is result as normal/abnormal . NRBC x10^3 (test code <0.01 See_Comment [Auto mated = 4869987757) message] The s ystem which generated this result transmitted reference range : 10*3/?L. The reference range was not used to interpret this result as normal/abnormal . GRAN MAT (NEUT) % 74.6 % (test code = 770-8) IMM GRAN % (test code 0.30 % = 8958115825) LYMPH % (test code = 18.7 % 736-9) MONO % (test code = 4.8 % 5905-5) EOS % (test code = 1.1 % 713-8) BASO % (test code = 0.5 % 706-2) GRAN MAT x10^3(ANC) 4.71 10*3/uL 1.99-6.95 (test code = 1155078340) IMM GRAN x10^3 (test <0.03 0-0.06 code = 2923958691) LYMPH x10^3 (test code 1.18 10*3/uL 1.09-3.23 = 731-0) MONO x10^3 (test code 0.30 10*3/uL 0.36-1.02 L = 742-7) EOS x10^3 (test code = 0.07 10*3/uL 0.06-0.53 711-2) BASO x10^3 (test code 0.03 10*3/uL 0.01-0.09 = 704-7) Lab Interpretation Abnormal (test code = 26419-1) [facility] CenterPO[facility] (AUTOMATED)2020-06-26 02:46:00 Test Item Value Reference Range Interpretation Comments POCT GLU (test code = 2250287446) 248 mg/dL 70-110 H Lab Interpretation (test code = Abnormal 58624-4) [facility] Notes Date/Time Note Provider Source 2021-10-03 19:14:00-00:00 [facility] [address] [place] [address] Orthopedics Operative Note Signed Patient: Alex Auguste Medical Record#: [id number] [birth year] : 1980 Acct:[id number] Age/Sex: 41 / M ADM Date: 10/03/21 Loc: [facility] Room: Report Number: [id number]: Chetan Coleman MD Orthopedic Operative [...] reduction pin fixation of distal phalanx fracture 59849 Left ring finger [place] 84365 Left small finger reduction pin fixation of dis chino phalanx fracture 31453 Left small finger repair of [place] [id number] Surgeon: Chetan Coleman MD Anesthesia: General, see [...] was given 1 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 Patient instructed to call the pract ice number on front of packet for any questions including date and time of next encounter. Dr. Coleman has directly prescribed to patient all outpatient medications, none to be dispensed by [facility]. The sp ecific instruction at time of [...] Coleman MD 10/03/211953 DD/ 13 TD/TT: 10/03/211913 Finishing Room Supervisor: LIV cc: LIV; PCPNO* Chetan Coleman MD; Pcp-Md SANDRA Barragan
[2023-01-26 18:50] LABS: Absolute Lymphocytes (CBC) 1.7 K/uL (0.7-4.9); Hematocrit 47.6 % (39.6-49.0); Lymphocytes % 24.3 % (15.3-44.8); MCV 85.6 fL (80-100); RBC Red Blood Cell Count 5.56 M/uL (4.33-5.43)
[2023-01-26 18:55] LABS: Protime INR 1.09
[2023-01-26] MEDS ORDERED: NA CHLORIDE 0.9% 1,000 ML ONE ×2 (18:57→21:02)
[2023-01-26] MEDS ORDERED: 0.9 % SODIUM CHLORIDE 20 ML ONE (18:57)
[2023-01-26] MEDS ORDERED: MORPHINE 4 MG/ML SYR ONE ×2 (18:57→22:23)
[2023-01-26] MEDS ORDERED: ONDANSETRON 4 MG/2 ML VIAL ONE ×2 (18:57→22:23)
[2023-01-26] MEDS ORDERED: PANTOPRAZOLE 40 MG INJ ONE (18:57)
[2023-01-26 19:13] LABS: Albumin 5.1 g/dL (3.4-5.0); Bilirubin Direct 0.3 mg/dL (0-0.2); Bilirubin Indirect, Calculated 2.7 mg/dL (0.2-0.8); Magnesium 2.3 mg/dL (1.6-2.4); Troponin High Sensitivity 5.1 pg/mL (<58.9)
--- NOTE | 2023-01-26 19:31 | RAD REPORT ---
EXAM DESCRIPTION: RAD - Chest Single View - 01/26/2023 7:07 pm CLINICAL HISTORY: epigastric pain Chest pain. COMPARISON: Chest Single View dated 08/17/2019; Chest Single View dated 07/30/2019; Chest Pa And Lat (2 Views) dated 04/10/2018; Chest Single View dated 02/23/2018 FINDINGS: Portable technique limits examination quality. The lungs are grossly clear. The heart is normal in size. No displaced fractures. IMPRESSION: No acute intrathoracic process suspected.
--- NOTE | 2023-01-26 20:38 | RAD REPORT ---
EXAM DESCRIPTION: CTAbdomen Pelvis W Contrast - 01/26/2023 8:29 pm CLINICAL HISTORY: Abdominal pain. ABD PAIN COMPARISON: <Comparisons> TECHNIQUE: Biphasic CT imaging of the abdomen and pelvis was performed with 100 ml non-ionic IV cont rast. All CT scans are performed using dose optimization technique as appropriate and may include automated exposure control or mA/KV adjustment according to patient size. FINDINGS: The lung bases are clear.Cholecystectomy. The liver, spleen, adrenal glands and kidneys are within normal limits. 4 cm cyst is present pancreat ic tail. Multiple varicosities are present in the splenic hilum. And along the greater curvature of t he stomach. No bowel obstruction, free air, free fluid or abscess. Moderate stool is present throughout the colon . The appendix is normal. No evidence of significant lymphadenopathy. No suspicious bony findings. IMPRESSION: No acute intra-abdominal or pelvic finding. 4 cm cyst is present pancreatic tail, stable.
[2023-01-26] MEDS ORDERED: POTASSIUM 25 MEQ EFFERV TAB ONE (22:09)
--- NOTE | 2023-01-26 22:39 | EDPHYS ---
Physician Documentation [facility] Name: Alex Auguste Age: 42 yrs Sex: Male : 1980 Arrival Date: 01/26/2023 Time: 18:05 Bed 16 Private MD: ED Physician Venkat Lyon HPI: 01/26 18:45 This 42 yrs old Male presents to ER via Ambulatory with complaints of Nausea/Vomiting, cp Heat Exposure. 18:45 The patient presents to the emergency department with nausea, with "dry heaves", cp vomiting, that is continuous, abdominal pain, of the epigastric. Onset: The symptoms/episode began/occurred today. Possible causes: flare up of bowel problem, pancreatitis, possibly due to working in heat today. Associated signs and symptoms: Pertinent negatives: constipation, diarrhea, GI bleeding, chest pain. Historical: - Allergies: 18:13 No Known Allergies; aa5 - PMHx: 18:13 angina pectoris; Chronic Pancreatitis; Diabetes - IDDM; GERD; High Triglycerides; aa5 Hypertensive disorder; - PSHx: 18:13 Cholecystectomy; aa5 - Immunization history:: Adult Immunizations unknown. - Social history:: Smoking status: Patient reports the use of cigarette tobacco products, smokes one pack cigarettes per day. ROS: 18:50 Constitutional: Positive for body aches, poor PO intake, Negative for chills, fever. cp 18:50 Eyes: Negative for injury, pain, redness, and discharge. cp 18:50 Cardiovascular: Negative for chest pain. 18:50 Respiratory: Negative for cough, shortness of breath, wheezing. 18:50 Abdomen/GI: Positive for abdominal pain, nausea and vomiting, Negative for diarrhea, constipation, hematemesis, black/tarry stool. 18:50 Neuro: Negative for altered mental status. 18:50 All other systems are negative. Exam: 18:55 Constitutional: The patient appears in no acute distress, alert, awake, cp non-diaphoretic, non-toxic, well developed, well nourished, uncomfortable. 18:55 Head/Face: Normocephalic, atraumatic. cp 18:55 Eyes: Periorbital structures: appear normal, Conjunctiva: normal, no exudate, no injection, Sclera: no appreciated abnormality, Lids and lashes: appear normal, bilaterally. 18:55 ENT: External ear(s): are unremarkable, Nose: is normal, Mouth: Lips: moist, Oral mucosa: pink and intact, moist, Posterior pharynx: is normal, airway is patent, no erythema, no exudate. 18:55 Chest/axilla: Inspection: normal, Palpation: is normal, no crepitus, no tenderness. 18:55 Cardiovascular: Rate: tachycardic, Rhythm: regular. 18:55 Respiratory: the patient does not display signs of respiratory distress, Respirations: normal, no use of accessory muscles, no retractions, labored breathing, is not present, Breath sounds: are clear throughout, no decreased breath sounds, no stridor, no wheezing. 18:55 Abdomen/GI: Inspection: abdomen appears normal, Bowel sounds: active, all quadrants, Palpation: soft, in all quadrants, moderate abdominal tenderness, in the epigastric area, rebound tenderness, is not appreciated. 18:55 Back: CVA tenderness, is absent. 18:55 Neuro: Orientation: to person, place \\T\\ time. Mentation: is normal, Motor: moves all fours, strength is normal, Sensation: is normal. 19:15 ECG was reviewed by the Attending Physician. Vital Signs: 18:12 BP 138 / 111; Pulse 122; Resp 20 S; Temp 97.7(O); Pulse Ox 97% on R/A; Weight 78.93 kg aa5 (R); Height 5 ft. 10 in. (R); 20:00 BP 128 / 92; Pulse 91; Resp 16; Pulse Ox 99% on R/A; cm10 21:00 BP 130 / 89; Pulse 89; Resp 16; Pulse Ox 99% on R/A; cm10 22:50 BP 140 / 93; Pulse 89; Resp 16; Pulse Ox 99% on R/A; cm10 18:12 Body Mass Index 24.97 (78.93 kg, 177.8 cm) aa5 MDM: 18:26 Patient medically screened. 22:37 Data reviewed: vital signs, nurses notes, lab test result(s), EKG, radiologic studies, cp CT scan, plain films. 22:37 Consideration of Admission/Observation Escalation of care including cp admission/observation considered. I considered the following discharge prescriptions or medication management in the emergency department Medications were administered in the Emergency Department. See MAR. Counseling: I had a detailed discussion with the patient and/or guardian regarding: the historical points, exam findings, and any diagnostic results supporting the discharge/admit diagnosis, lab results, radiology results, to return to the emergency department if symptoms worsen or persist or if there are any questions or concerns that arise at home. Response to treatment: the patient's symptoms have markedly improved after treatment, patient is well hydrated. and as a result, I will discharge patient. Special discussion: Based on the patient's Hx, exam, and Dx evaluation, there is no indication for emergent surgery or inpatient Tx. It is understood by the patient/guardian that if the Sx's persist or worsen they need to return immediately for re-evaluation. 01/26 18:38 Order name: Basic Metabolic Panel; Complete Time: 20:12 cp 01/26 20:13 Interpretation: Within normal limits: NA 131; K 3.0; CL 95; GLUC 156; CRE 1.53; GFR 57; cp CA 10.3. 01/26 18:38 Order name: CBC with Diff; Complete Time: 20:12 cp 01/26 22:09 Interpretation: Normal except: RBC 5.56; MPV 7.0; NEUT A 0.0. cp 01/26 18:38 Order name: LFT's; Complete Time: 20:12 cp 01/26 21:52 Interpretation: Normal except: BILIT 3.0; BILID 0.3; IBILI, CALC 2.7; TP 9.0; ALB 5.1; cp GLOB 3.9. 01/26 18:38 Order name: Magnesium; Complete Time: 20:12 cp 01/26 18:38 Order name: PT-INR; Complete Time: 20:12 cp 01/26 18:38 Order name: Troponin HS; Complete Time: 20:12 cp 01/26 18:38 Order name: Lipase; Complete Time: 20:12 cp 01/26 18:39 Order name: CK; Complete Time: 20:12 cp 01/26 18:38 Order name: XRAY Chest (1 view); Complete Time: 20:12 cp 01/26 20:13 Order name: CT Abd/Pelvis - IV Contrast Only; Complete Time: 21:52 cp 01/26 18:38 Order name: EKG; Complete Time: 18:39 cp 07/18 18:38 Order name: Cardiac monitoring; Complete Time: 18:42 cp 07/18 18:38 Order name: EKG - Nurse/Tech; Complete Time: 19:18 cp 07/18 18:38 Order name: IV Saline Lock; Complete Time: 18:39 cp 07/18 18:38 Order name: Labs collected and sent; Complete Time: 18:42 cp 07/18 18:38 Order name: O2 Per Protocol; Complete Time: 18:42 cp 07/18 18:38 Order name: O2 Sat Monitoring; Complete Time: 18:42 cp 07/18 22:26 Order name: PO challenge; Complete Time: 22:35 cp EC:15 Rate is 100 beats/min. Rhythm is regular. ID interval is normal. QRS interval is cp normal. QT interval is normal. T waves are Inverted in lead aVR. Interpreted by me. Reviewed by me. Administered Medications: 18:57 Drug: NS 0.9% IV 1000 ml Route: IV; Rate: 1 bolus; Site: left forearm; cm10 20:05 Follow up: IV Status: Completed infusion; IV Intake: 1000ml cm10 20:06 Follow up: Response: No adverse reaction cm10 18:57 Drug: Ondansetron IVP 4 mg Route: IVP; Site: left forearm; cm10 20:05 Follow up: Response: No adverse reaction cm10 18:57 Drug: Pantoprazole IVP 40 mg Route: IVP; Site: left forearm; cm10 20:05 Follow up: Response: No adverse reaction cm10 18:57 Drug: morphine IVP or IV 4 mg Route: IVP; Infused Over: 4 mins; Site: left forearm; cm10 20:05 Follow up: Response: No adverse reaction; Pain is decreased cm10 20:55 Drug: NS 0.9% IV 1000 ml Route: IV; Rate: 1 bolus; Site: left forearm; cm10 21:39 Follow up: Response: No adverse reaction; IV Status: Completed infusion; IV Intake: cm10 1000ml 22:05 Drug: Potassium PO Effervescent Tablet 50 mEq Route: PO; cm10 22:11 Follow up: Response: Other; Pt vomitited after drinking. Provider aware. cm10 22:17 Drug: Ondansetron IVP 4 mg Route: IVP; Site: left forearm; cm10 22:35 Follow up: Response: No adverse reaction; Nausea is decreased cm10 22:17 Drug: morphine IVP or IV 4 mg Route: IVP; Infused Over: 4 mins; Site: left forearm; cm10 22:35 Follow up: Response: Adverse reaction, Physician notified; Pain is decreased cm10 22:35 Drug: Potassium Chloride PO 40 mEq Route: PO; cm10 22:51 Follow up: Response: No adverse reaction cm10 Disposition: 01/27 10:07 Co-signature as Attending Physician, Venkat Lyon MD I reviewed the patient's care rn provided by the Advanced Practice Provider and agree with the diagnosis and treatment plan. Disposition Summary: 01/26/23 22:38 Discharge Ordered Location: Home cp Problem: new cp Symptoms: have improved cp Condition: Stable cp Diagnosis - Hypokalemia cp - Heat exhaustion, unspecified cp - Nausea with vomiting, unspecified cp - Epigastric pain cp - Diabetes mellitus due to underlying condition with hyperglycemia cp Followup: cp - With: Private Physician - When: 2 - 3 days - Reason: Recheck today's complaints Discharge Instructions: - Discharge Summary Sheet cp - Abdominal Pain, Adult cp - Potassium Content of Foods cp - Hyperglycemia cp - Nausea and Vomiting, Adult cp - Blood Glucose Monitoring, Adult cp - Diabetes Mellitus and Nutrition, Adult cp Forms: - Medication Reconciliation Form cp - Thank You Letter cp - Antibiotic Education cp - Prescription Opioid Use cp - Patient Portal Instructions cp Prescriptions: - Pepcid 20 mg Oral Tablet - take 1 tablet by ORAL route every 12 hours for 10 days; 20 tablet; Refills: 0, cp Product Selection Permitted - Zofran 4 mg Oral Tablet - take 1 tablet by ORAL route every 12 hours As needed; 20 tablet; Refills: 0, cp Product Selection Permitted - Potassium Chloride 10 mEq Oral capsule, extended release - take 2 tablet by ORAL route once daily; 6 tablet; Refills: 0, Product Selection cp Permitted Signatures: Dispatcher [employer] EDVenkat Ruth MD MD rn Calderon, Audri RN RN aa5 Manpreet Pan PA PA cp Martinez, Clarissa RN RN cm10
--- NOTE | 2023-01-26 22:39 | ER ---
Nurse's Notes [facility] Name: Alex Auguste Age: 42 yrs Sex: Male : 1980 Arrival Date: 01/26/2023 Time: 18:05 Bed 16 Private MD: Diagnosis: Hypokalemia;Heat exhaustion, unspecified;Nausea with vomiting, unspecified;Epigastric pain;Diabetes mellitus due to underlying condition with hyperglycemia Presentation: 01/26 18:12 Chief complaint: Patient states: "I think I got a heat exhaustion, I was working in [employer] all day today". Pt reports vomiting and abd cramping since 1600 today. Coronavirus screen: vomiting. Ebola Screen: Patient denies travel to an Ebola-affected area in the 21 days before illness onset. Initial Sepsis Screen: Does the patient meet any 2 criteria? HR > 90 bpm. Does the patient have a suspected source of infection? No. Patient's initial sepsis screen is negative. Risk Assessment: Do you want to hurt yourself or someone else? Patient reports no desire to harm self or others. Onset of symptoms was January 26, 2023. 18:12 Acuity: [place] 3 aa5 18:12 Method Of Arrival: Ambulatory aa5 Triage Assessment: 18:23 General: Appears in no apparent distress. comfortable, Behavior is calm, cooperative. cm10 Pain: Denies pain. GI: Reports nausea, vomiting. Historical: - Allergies: 18:13 No Known Allergies; aa5 - PMHx: 18:13 angina pectoris; Chronic Pancreatitis; Diabetes - IDDM; GERD; High Triglycerides; aa5 Hypertensive disorder; - PSHx: 18:13 Cholecystectomy; aa5 - Immunization history:: Adult Immunizations unknown. - Social history:: Smoking status: Patient reports the use of cigarette tobacco products, smokes one pack cigarettes per day. Screenin:22 [facility] ED Fall Risk Assessment (Adult) History of falling in the last 3 months, cm10 including since admission No falls in past 3 months (0 pts) Confusion or Disorientation No (0 pts) Intoxicated or Sedated No (0 pts) Impaired Gait No (0 pts) Mobility Assist Device Used No (0 pt) Altered Elimination No (0 pt) Score/Fall Risk Level 0 - 2 = Low Risk Oriented to surroundings, Maintained a safe environment, Hourly rounding (assess needs \\T\\ fall precautionary measures) done. Abuse screen: Denies threats or abuse. Denies injuries from another. Nutritional screening: No deficits noted. Tuberculosis screening: No symptoms or risk factors identified. Assessment: 18:24 General: Appears in no apparent distress. comfortable, Behavior is calm, cooperative. cm10 Neuro: No deficits noted. Level of Consciousness is awake, alert, obeys commands, Oriented to person, place, time, situation. Cardiovascular: No deficits noted. Capillary refill < 3 seconds. Respiratory: No deficits noted. Airway is patent Respiratory effort is even, unlabored, Respiratory pattern is regular, symmetrical. GI: Abdomen is flat. 20:56 Reassessment: No changes from previously documented assessment. Patient and/or family cm10 updated on plan of care and expected duration. Pain level reassessed. Patient is alert, oriented x 3, equal unlabored respirations, skin warm/dry/pink. 22:21 Reassessment: No changes from previously documented assessment. Patient and/or family cm10 updated on plan of care and expected duration. Pain level reassessed. Patient is alert, oriented x 3, equal unlabored respirations, skin warm/dry/pink. Vital Signs: 18:12 BP 138 / 111; Pulse 122; Resp 20 S; Temp 97.7(O); Pulse Ox 97% on R/A; Weight 78.93 kg aa5 (R); Height 5 ft. 10 in. (R); 20:00 BP 128 / 92; Pulse 91; Resp 16; Pulse Ox 99% on R/A; cm10 21:00 BP 130 / 89; Pulse 89; Resp 16; Pulse Ox 99% on R/A; cm10 22:50 BP 140 / 93; Pulse 89; Resp 16; Pulse Ox 99% on R/A; cm10 18:12 Body Mass Index 24.97 (78.93 kg, 177.8 cm) aa5 ED Course: 18:06 Patient arrived in ED. am2 18:10 Manpreet Pan PA is PHCP. cp 18:10 Venkat Lyon MD is Attending Physician. cp 18:12 Arm band placed on. aa5 18:13 Triage completed. aa5 18:14 Janelle Avilez, KECIA is Primary Nurse. cm10 18:16 Inserted saline lock: 18 gauge in left forearm, using aseptic technique. cm10 18:23 Patient has correct armband on for positive identification. Bed in low position. Call cm10 light in reach. Provided Education on: N/A. 18:42 Basic Metabolic Panel Sent. cm10 18:42 CBC with Diff Sent. cm10 18:42 LFT's Sent. cm10 18:42 Magnesium Sent. cm10 18:42 PT-INR Sent. cm10 18:42 Troponin HS Sent. cm10 18:42 CK Sent. cm10 19:09 XRAY Chest (1 view) In Process Unspecified. EDMS 20:30 CT Abd/Pelvis - IV Contrast Only In Process Unspecified. EDMS 22:36 Pt tolerated PO challenge at this time. cm10 22:50 No provider procedures requiring assistance completed. IV discontinued, intact, cm10 bleeding controlled, No redness/swelling at site. Pressure dressing applied. Administered Medications: 18:57 Drug: NS 0.9% IV 1000 ml Route: IV; Rate: 1 bolus; Site: left forearm; cm10 20:05 Follow up: IV Status: Completed infusion; IV Intake: 1000ml cm10 20:06 Follow up: Response: No adverse reaction cm10 18:57 Drug: Ondansetron IVP 4 mg Route: IVP; Site: left forearm; cm10 20:05 Follow up: Response: No adverse reaction cm10 18:57 Drug: Pantoprazole IVP 40 mg Route: IVP; Site: left forearm; cm10 20:05 Follow up: Response: No adverse reaction cm10 18:57 Drug: morphine IVP or IV 4 mg Route: IVP; Infused Over: 4 mins; Site: left forearm; cm10 20:05 Follow up: Response: No adverse reaction; Pain is decreased cm10 20:55 Drug: NS 0.9% IV 1000 ml Route: IV; Rate: 1 bolus; Site: left forearm; cm10 21:39 Follow up: Response: No adverse reaction; IV Status: Completed infusion; IV Intake: cm10 1000ml 22:05 Drug: Potassium PO Effervescent Tablet 50 mEq Route: PO; cm10 22:11 Follow up: Response: Other; Pt vomitited after drinking. Provider aware. cm10 22:17 Drug: Ondansetron IVP 4 mg Route: IVP; Site: left forearm; cm10 22:35 Follow up: Response: No adverse reaction; Nausea is decreased cm10 22:17 Drug: morphine IVP or IV 4 mg Route: IVP; Infused Over: 4 mins; Site: left forearm; cm10 22:35 Follow up: Response: Adverse reaction, Physician notified; Pain is decreased cm10 22:35 Drug: Potassium Chloride PO 40 mEq Route: PO; cm10 22:51 Follow up: Response: No adverse reaction cm10 Medication: 18:24 VIS not applicable for this client. cm10 Intake: 20:05 IV: 1000ml; Total: 1000ml. cm10 21:39 IV: 1000ml; Total: 2000ml. cm10 Outcome: 22:38 Discharge ordered by MD. cp 22:50 Discharged to home ambulatory, with family. cm10 22:50 Condition: good 22:50 Discharge instructions given to patient, significant other, Instructed on discharge instructions, follow up and referral plans. medication usage, Demonstrated understanding of instructions, follow-up care, medications, Prescriptions given X 3. 22:51 Patient left the ED. cm10 Signatures: Dispatcher [employer] EDVelma Mcmillan, RN RN aa5 Manpreet Pan PA PA Lacie Smith Clarissa, KECIA RN cm10
[2023-01-26] MEDS ORDERED: POTASSIUM CL SA 10 MEQ TAB PO ONE (22:42)
[2023-01-26 23:37] VITALS: TEMP 97.7
[2023-01-26 23:38] VITALS: O2SAT 99
[2023-01-26 23:42] VITALS: BP 140/93
--- NOTE | 2023-01-27 13:16 | EKG ---
Test Date: 2023-01-26 Test Time: 19:09:19 [employer]: MEHNAZ MEASUREMENT RESULTS: Intervals: Rate: 100 AL: 138 QRSD: 86 QT: 344 QTc: 443 Debary: P: 58 AL: 138 QRS: 75 T: 49 INTERPRETIVE STATEMENTS: Normal sinus rhythm Normal ECG Compared to ECG 08/18/2019 08:26:55 No significant changes Electronically Signed On 01-27-23 13:15:22 CDT by Darion Mathias
== END 2023-01-26 22:51 | disposition home or self-care (01) ==
LOC: ER 18:05
DX: E87.6 Hypokalemia (principal); T67.5XXA Heat exhaustion, unspecified, initial encounter; E11.65 Type 2 diabetes mellitus with hyperglycemia; R10.13 Epigastric pain; I10 Essential (primary) hypertension; F17.210 Nicotine dependence, cigarettes, uncomplicated
CPT/HCPCS: 85025; 80048; 36415; 83735; 82550; 85610; 80076; 84484; 83690; 74177; 71045; Q9967; C9113; J2405 ×2; J7030 ×2; 93005

== ENCOUNTER 2023-03-02 17:04 | Emergency (ER) | payer BC ==
--- OUTSIDE RECORDS SUMMARY | 2023-03-02 17:11 | XMS REPORT | Continuity of Care Document ---
:[address] [facility] t Address [address] [place] [address] Care Team Providers Name Role Phone Chetan Coleman Attending Clinician Unavailable Nader Randall Attending Clinician Doctor Unassigned, [place] Attending Clinician Unavailable Lillian James R Attending Clinician Madeline MCDONNELL, Annita Huizar Attending Clinician [place] FLORES, Kofi Justice Attending Clinician Laurence Jose MD Attending Clinician Cole Guan MD Attending Clinician CO[place] GU[place] Attending Clinician Unavailable Laurence Jose MD Admitting Clinician Payers Payer Name Policy Type Policy Number Effective Date Expiration Date S kat [facility] - [id number] 2019 00:00:00 OUT OF STATE Problems Condition [...] uncontroll 00 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, ed, 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 without without Utility complicati complicati ons [...] of 00:00: Diagnosis [place] 00 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 Utility Allergies, Adverse Reactions, Alerts Allergy Allergy Status Severity Reaction(s) Onset Inactive Treating Comm ents Source Name Type Date Date Clinician No Known [facility] Allergie 00:00: s 00 No Known DA Active U [facility] Drug 3-21 Allergie 00:00: s 00 No Known DA Active U [facility] Drug 3-17 Allergie 00:00: s 00 NO KNOWN Drug Active Univers ALLERGIE Class ity of S [facility] Social History Social Habit Start Date Stop Date Quantity Comments Source History of Snuff User [place] of tobacco use [facility] Alcohol Comment occasional Universit y of [facility] Exposure to Not sure University of SARS-CoV-2 [place] Medical (event) Branch Alcohol intake 2020-06-25 2020-06-25 Current University of 00:00:00 00:00:00 non-drinker of [facility] alcohol (finding) Branch Tobacco use and 2020-06-25 2020-06-25 Current user Univers ity of exposure 00:00:00 00:00:00 [facility] Sex Assigned At [birth year] Universit y of 00:00:00 00:00:00 [facility] Smoking Status Start Date Stop Date Source Never smoker [facility] Medications Ordered Filled Start Stop Current Ordering Indication Dosage Frequency Signature Comments Components Source Medication Medication Date Date Medication? Clinician (SIG) Name Name morpHINE 2020- No 2mg 2 mg, Slow Un cb injection 2 11-16 IV Push, ity of mg 22:00: 22:00 ONCE, 1 [place] 00 :00 dose, [facility] Medical 11/16/20 at Branch 1700, STAT predniSONE 2020- No 20mg 20 mg, Univ ers (DELTASONE) 11-16 Oral, ity of tablet 20 21:30: 20:49 ONCE, 1 [place] mg 00 :00 dose, [facility] Medical 11/16/20 at Branch 1630, ANA MARIA amoxicillin 2020- No 1{tbl} 1 tablet, Univers -clavulanat 11-16 Oral, ity of e 21:30: 20:49 ONCE, 1 [place] (AUGMENTIN) 00 :00 dose, [facility] Med ical 875-125 mg 11/16/20 at [facility] per tablet 1630, 1 tablet Routine
Reason for Anti-Infec tive: Documented Infection< br>Documen j luis Infection Site: Abdominal< br>Duratio n of Therapy: 10 days iopamidol 2020- No [id number] 100mL 100 mL, Univers (ISOVUE 11-16 Intravenou ity o f 370-500 mL) 20:45: 19:30 s, ONCE, 1 [place] injection 00 :00 dose, Sat Medic al 100 mL 11/16/20 at Branch 1545, Routine morpHINE 2020- No 4mg 4 mg, Slow Un cb injection 4 11-16 IV Push, ity of mg 20:15: 19:12 ONCE, 1 [place] 00 :00 dose, [facility] Medical 11/16/20 at Branch 1515, STAT ondansetron [...] 1,000 mL 00 :00 IV Medical Infusion, [place] ONCE, 1 dose, 11/16/20 at 1430, STAT amoxicillin 2020- Yes [id number] 1{tbl} Take 1 Univers -clavulanat 5-08 tablet by ity of e 875-125 00:00: mouth [place] mg per 00 every 12 Medical tablet (twelve) Branch hours. predniSONE Yes [id number] 1 PO BID x Univers 20 mg 5-08 4 days ity of tablet 00:00: [place] 00 Medical Branch ibuprofen 2020- No 800mg 800 mg, Uni vers (IBU) 17 -17 Oral, ity of tablet 800 23:30: 22:44 ONCE, 1 [place] mg 00 :00 dose, [facility] 07/28/20 at Branch 1730, ANA MARIA Diclofenac Yes [id number] Apply to Univers Sodium 1-17 area(s) 2 ity of (VOLTAREN) 00:00: (two) [place] 1 % gel 00 times Medical daily. [place] Diclofenac Yes [id number] Apply to Univers Sodium 1-17 area(s) 2 ity of (VOLTAREN) 00:00: (two) [place] 1 % gel 00 times Medical daily. [place] Diclofenac Yes [id number] Apply to Univers Sodium 1-17 area(s) 2 ity of (VOLTAREN) 00:00: (two) [place] 1 % gel 00 times Medical daily. [place] insulin 2019-07 Yes 36U 36 Units, Unive rs glargine 2-20 Subcutaneo ity o f (LANTUS 03:00: , [facility], [place] U-100) 00 First dose Medical injection (after Branch 36 Units last modificati on) on 06/29/20 at 2100, Until Discontinu ed, Routine gemfibroziL 2019-07 Yes 600mg Take 600 U nivers 600 mg 2-20 mg by ity of tablet 01:33: mouth 2 [place] [address] (two) Medical times Branch daily before breakfast and dinner. metoprolol 2019-07 Yes 25mg Take 25 mg U nivers tartrate 25 2-20 by mouth 2 it y of mg tablet 01:33: (two) [place] [address] times Medical daily. Branch Pantoprazol 2019-07 Yes 40mg Take 40 mg Univers e 40 mg 2-20 by mouth ity of delayed-rel 01:33: daily. [place] ease 08 Medical suspension Branch busPIRone 2019-07 Yes 10mg Take 10 mg Un cb 10 mg 2-20 by mouth 2 ity of tablet 01:33: (two) [place] [address] times Medical daily. Branch niacin 500 2019-07 Yes 500mg Take 500 Un cb mg tablet 2-20 mg by ity of 01:33: mouth [place] 08 daily with Medical breakfast. Branch lipase-prot 2019-07 Yes [id number] Take Univ ers ease-amylas 2-20 36,000 ity of e (CREON) 01:33: Units by [place] 36,000-114, 08 mouth with Me dical 000- all meals. Branch 180,000 Take 2 unit CpDR capsules by mouth with meals and 1 with each snack. losartan 25 2019-07 Yes 25mg Take 25 mg Univers mg tablet 2-20 by mouth ity of 01:33: daily. [place] [address] Medical Branch vortioxetin 2019-07 Yes 10mg Take 10 mg Univers e 10 mg Tab 2-20 by mouth ity of 01:33: at [place] [address] bedtime. Medical Branch gemfibroziL 2019-07 Yes 600mg Take 600 U nivers 600 mg 2-20 mg by ity of tablet 01:33: mouth 2 [place] [address] (two) Medical times Branch daily before breakfast and dinner. metoprolol 2019-07 Yes 25mg Take 25 mg U nivers tartrate 25 2-20 by mouth 2 it y of mg tablet 01:33: (two) [place] [address] times Medical daily. Branch Pantoprazol 2019-07 Yes [...] with Medical breakfast. Branch lipase-prot 2019- Yes [id number] Take Univ ers ease-amylas 2-20 36,000 ity of e (CREON) 01:33: Units [place] 36,000-114, 08 mouth with Me dical 000- all meals. Branch 180,000 Take 2 unit CpDR capsules by mouth with meals and 1 with each snack. losartan 25 2019- Yes 25mg Take 25 mg Univers mg tablet 2-20 by mouth ity of 01:33: daily. [place] [address] Medical Branch vortioxetin 2019- Yes 10mg Take 10 mg Univers e 10 mg Tab 2-20 by mouth ity of 01:33: at [place] [address] bedtime. Medical Branch gemfibroziL 2019- Yes 600mg Take 600 U nivers 600 mg 2-20 mg by ity of tablet 01:33: mouth 2 [place] 08 (two) Medical times Branch daily before breakfast and dinner. metoprolol 2019- Yes 25mg Take 25 mg U nivers tartrate 25 2-20 by mouth 2 it y of mg tablet 01:33: (two) [place] [address] times Medical daily. Branch Pantoprazol 2019-07 Yes 40mg Take 40 mg Univers e 40 mg 2-20 by mouth ity of delayed-rel 01:33: daily. [place] ease 08 Medical suspension Branch busPIRone 2019- Yes 10mg Take 10 mg Un cb 10 mg 2-20 by mouth 2 ity of tablet 01:33: (two) [place] [address] times Medical daily. Branch niacin 500 2019-07 Yes 500mg Take 500 Un cb mg tablet 2-20 mg by ity of 01:33: mouth [place] 08 daily with Medical breakfast. Branch lipase-prot 2019- Yes [id number] Take Univ ers ease-amylas 2-20 36,000 ity of e (CREON) 01:33: Units by [place] 36,000-114, 08 mouth with Me dical 000- all meals. Branch 180,000 Take 2 unit CpDR capsules by mouth with meals and 1 with each snack. losartan 25 2019- Yes 25mg Take 25 mg Univers mg tablet 2-20 by mouth ity of 01:33: daily. [place] [address] Medical Branch vortioxetin 2019- Yes 10mg Take 10 mg Univers e 10 mg Tab 2-20 by mouth ity of 01:33: at [place] [address] bedtime. Medical Branch gemfibroziL 2019- Yes 600mg Take 600 U nivers 600 mg 2-20 mg by ity of tablet 01:33: mouth 2 (two) Medical times [place] daily before breakfast and dinner. metoprolol 2019- Yes 25mg Take 25 mg U nivers tartrate 25 2-20 by mouth 2 it y of mg tablet 01:33: (two) [place] [address] times Medical daily. Branch Pantoprazol 2019- Yes 40mg Take 40 mg Univers e 40 mg 2-20 by mouth ity of delayed-rel 01:33: daily. [place] ease 08 Medical suspension Branch busPIRone 2019-07 Yes 10mg Take 10 mg Un cb 10 mg 2-20 by mouth 2 ity of tablet 01:33: (two) [place] [address] times Medical daily. Branch niacin 500 2019- Yes 500mg Take 500 Un cb mg tablet 2-20 mg by ity of 01:33: mouth [place] 08 daily with Medical breakfast. Branch lipase-prot 2019-07 Yes [id number] Take Univ ers ease-amylas 2-20 36,000 ity of e (CREON) 01:33: Units by [facility] s 36,000-114, 08 mouth with Me dical 000- all meals. Branch 180,000 Take 2 unit CpDR capsules by mouth with meals and 1 with each snack. losartan 25 2019-07 Yes 25mg Take 25 mg Univers mg tablet 2-20 by mouth ity of 01:33: daily. [place] [address] Medical Branch vortioxetin 2019- Yes 10mg Take 10 mg Univers e 10 mg Tab 2-20 by mouth ity of 01:33: at [place] [address] bedtime. Medical Branch gemfibroziL 2019- Yes 600mg Take 600 U nivers 600 mg 2-20 mg by ity of tablet 01:33: mouth 2 [place] [address] (two) Medical times [place] daily before breakfast and dinner. metoprolol 2019- Yes 25mg Take 25 mg U nivers tartrate 25 2-20 by mouth 2 it y of mg tablet 01:33: (two) [place] [address] times Medical daily. Branch Pantoprazol 2019- Yes [...] with Medical breakfast. Branch lipase-prot 2019- Yes [id number] Take Univ ers ease-amylas 2-20 36,000 ity of e (CREON) 01:33: Units by [place] 36,000-114, 08 mouth with Me dical 000- all meals. Branch 180,000 Take 2 unit CpDR capsules by mouth with meals and 1 with each snack. losartan 25 2019- Yes 25mg Take 25 mg Univers mg tablet 2-20 by mouth ity of 01:33: daily. [place] [address] Medical Branch vortioxetin 2019- Yes 10mg Take 10 mg Univers e 10 mg Tab 2-20 by mouth ity of 01:33: at [place] [address] bedtime. Medical Branch gemfibroziL 2019- Yes 600mg [...] with Medical breakfast. Branch lipase-prot 2019- Yes [id number] Take Univ ers ease-amylas 2-20 36,000 ity of e (CREON) 01:33: Units by [place] 36,000-114, 08 mouth with Me dical 000- all meals. Branch 180,000 Take 2 unit CpDR capsules by mouth with meals and 1 with each snack. losartan 25 2019-07 Yes 25mg Take 25 mg Univers mg tablet 2-20 by mouth ity of 01:33: daily. [place] 08 Medical Branch vortioxetin 2019-07 Yes 10mg Take 10 mg Univers e 10 mg Tab 2-20 by mouth ity of 01:33: at [place] 08 bedtime. Medical Branch insulin 2019-07 2020- No 15U 15 Units, [facility] ers glargine -06-29 Subcutaneo ity of (LANTUS 15:00: 14:07 us, ONCE, [place] U-100) 00 :00 1 dose, Medical injection Sat Branch 15 Units 06/29/20 at 0900, Routine morpHINE 2019-07 Yes 2mg 2 mg, Slow Uni vers injection 2 08-30 IV Push, ity of mg 08:15: Q6HPRN, [place] 00 Starting Medical Sat Branch 06/29/20 at 0215, Until Discontinu ed, Routine, Pain (scale 7-10) atorvastati 2019-07- No [id number] 40mg Take 1 Univers n 40 mg 08-30 tablet by ity of tablet 00:00: 05:59 mouth at [place] 00 :00 bedtime Medical for 30 Branch days. atorvastati 2019-07- No [id number] 40mg Take 1 Univers n 40 mg 08-30 tablet by ity of tablet 00:00: 05:59 mouth at [place] 00 :00 bedtime Medical for 30 Branch days. atorvastati 2019-07- No [id number] 40mg Take 1 Univers n 40 mg 08-30 tablet by ity of tablet 00:00: 05:59 mouth at [place] 00 :00 bedtime Medical for 30 Branch days. atorvastati 2019-07- No [id number] 40mg Take 1 Univers n 40 mg 08-30 tablet by ity of tablet 00:00: 05:59 mouth at [place] 00 :00 bedtime Medical for 30 Branch [...] [place] mg 00 :00 dose, [facility] Medical 06/28/20 Branch at 1500, Routine FLUoxetine [...] [place] 40 mEq 00 :00 dose, [place] [facility] Medical 06/28/20 Branch at 0830, Routine Sliding 2019- Yes Subcutaneo Univ ers Scale 2-18 us, AC+HS, ity of Insulin-Reg 13:30: First dose [place] ular + Fsbg 00 on Wed Medica [...] use: PATIENT CURRENTLY TAKING NONFORMULA RY PRODUCT
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 Non-formul caitlyn medication : [...] First dose [place] mg 00 on [facility] 06/26/20 Branch at 2100, Until Discontinu ed, Routine gemfibroziL 2019-07 Yes 600mg 600 mg, Un cb (LOPID) 2-17 Oral, BID, ity of tablet 600 02:00: First dose [place] mg 00 on [facility] 06/26/20 Branch at 2000, Until Discontinu ed, Routine busPIRone 2019-07 Yes 10mg 10 mg, Univer s (BUSPAR) 2-17 Oral, BID, ity o f tablet 10 02:00: First dose [place] mg 00 on [facility] 06/26/20 Branch at 2000, Until Discontinu ed, Routine enoxaparin 2019-07 Yes 40mg 40 mg, Unive rs (LOVENOX) 16 Subcutaneo ity of injection 23:00: us, DAILY, [place] 40 mg 00 First dose Medical on [facility] 06/26/20 at 1700, Until Discontinu ed, Routine morpHINE 2019-07 2020- No 4mg 4 mg, Slow Un cb injection 4 08-27 IV Push, ity of mg 16:30: 07:29 Q3HPRN, [place] 00 :00 Starting [facility] 06/26/20 at 1030, Until Padmini 06/27/20 at [...] rate based on Triglyceri de level, Starting [facility] 06/26/20 at 1016
If glucose < 250, [...] 16:15 Q4HPRN, [place] 11 :46 Starting Medical [facility] Branch 06/26/20 at 0521, Until Wed06/26/20 at 1015, Routine, Pain (scale 7-10) NaCl 0.9% 2019-07 No 1000mL at 125 Uni vers (NS) IV 08-27 mL/hr, IV ity of infusion 08:00: 14:01 Infusion, [place] 1,000 mL 00 :34 CONTINUOUS Medic al , Starting Branch [facility] 06/26/20 at 0200, Until Wed06/26/20 at 0801, Routine dextrose 50 2019-07 No 25mL 25 mL, Uni vers % in water 08-27 Slow IV ity o f (D50W) 07:48: 13:26 Push, PRN, [place] injection 20 :23 Starting Medica l 25 mL [facility] 06/26/20 at 0148, Until Wed06/28/20 at 0726, ANA MARIA, Blood Glucose < or = 70 mg/dL and patient is unable to swallow or has mental status changes. proMETHazin 2019-07- No 25mg 25 mg, IV Univers e 08-27 Piggyback, ity of (PHENERGAN) 07:45: 07:45 ONCE, 1 [place] 25 mg in 00 :00 dose, [facility] Medica l NaCl 0.9% 06/26/20 Branch (NS) 50 mL at 0145, piggyback 50 mL FENTanyl PF 2019-07- No 100ug 100 mcg, Univers (SUBLIMAZE 08-27 Slow IV ity o f (PF)) 07:45: 06:34 Push, [place] injection 00 :00 ONCE, 1 Medical 100 mcg dose, [facility] Branch 06/26/20 at 0145, Routine morpHINE 2019-07- No 2mg 2 mg, Slow Un cb injection 2 08-27 IV Push, ity of mg 07:44: 11:21 Q4HPRN, [place] 30 :45 Starting Medical [facility] 06/26/20 at 0144, Until Wed06/26/20 at [...] :00 ONCE, 1 Medical 75 mcg dose, [facility] 06/25/20 at 2200, Routine LOVAZA, 2019-0 Yes [id number] 3g Take 3 Univ ers omega-3-aci 7-31 capsules ity of d ethyl 00:00: by mouth [place] esters, 1 00 daily. Medical [facility] Branch capsule LOVAZA, 2019-0 Yes [id number] 3g Take 3 Univ ers omega-3-aci 7-31 capsules ity of d ethyl 00:00: by mouth [place] esters, 1 00 daily. Medical [facility] Branch capsule LOVAZA, 2019-0 Yes [id number] 3g Take 3 Univ ers omega-3-aci 7-31 capsules ity of d ethyl 00:00: by mouth [place] esters, 1 00 daily. Medical [facility] Branch capsule LOVAZA, 0 Yes [id number] 3g Take 3 Univ ers omega-3-aci 7-31 capsules ity of d ethyl 00:00: by mouth [place] esters, 1 00 daily. Medical [facility] capsule LOVAZA, 2019-0 Yes [id number] 3g Take 3 Univ ers omega-3-aci 7-31 capsules ity of d ethyl 00:00: by mouth [place] esters, 1 00 daily. Medical [facility] capsule LOVAZA, 2019-0 Yes [id number] 3g Take 3 Univ ers omega-3-aci 7-31 capsules ity of d ethyl 00:00: by mouth [place] esters, 1 00 daily. Medical [facility] capsule LOVAZA, 2019-0 Yes [id number] 3g Take 3 Univ ers omega-3-aci 7-31 capsules ity of d ethyl 00:00: by mouth [place] esters, 1 00 daily. Medical [facility] capsule LOVAZA, 2019-0 Yes [id number] 3g Take 3 Univ ers omega-3-aci 7-31 capsules ity of d ethyl 00:00: by mouth [place] esters, 1 00 daily. Medical [facility] capsule ondansetron Yes [id number] 4mg Take 1 Univers (ZOFRAN 5-03 tablet by ity of ODT) 4 mg 00:00: mouth [place] disintegrat 00 every 8 Medic al ing tablet (eight) Branch hours as needed for Nausea and Vomiting (N/V). ondansetron Yes [id number] 4mg Take 1 Univers (ZOFRAN 5-03 tablet by ity of ODT) 4 mg 00:00: mouth [place] disintegrat 00 every 8 Medic al ing tablet (eight) Branch hours as needed for Nausea and Vomiting (N/V). ondansetron 2019-0 Yes [id number] 4mg Take 1 Univers (ZOFRAN 5-03 tablet by ity of ODT) 4 mg 00:00: mouth [place] disintegrat 00 every 8 Medic al ing tablet (eight) Branch hours as needed for Nausea and Vomiting (N/V). ondansetron 2019-0 Yes [id number] 4mg Take 1 Univers (ZOFRAN 5-03 tablet by ity of ODT) 4 mg 00:00: mouth [place] disintegrat 00 every 8 Medic al ing tablet (eight) Branch hours as needed for Nausea and Vomiting (N/V). ondansetron 2019-0 Yes [id number] 4mg Take 1 Univers (ZOFRAN 5-03 tablet by ity of ODT) 4 mg 00:00: mouth [place] disintegrat 00 every 8 Medic al ing tablet (eight) Branch hours as needed for Nausea and Vomiting (N/V). ondansetron 2019-0 Yes [id number] 4mg Take 1 Univers (ZOFRAN 5-03 tablet by ity of ODT) 4 mg 00:00: mouth [place] disintegrat 00 every 8 Medic al ing tablet (eight) Branch hours as needed for Nausea and Vomiting (N/V). ondansetron 2019-0 Yes [id number] 4mg Take 1 Univers (ZOFRAN 5-03 tablet by ity of ODT) 4 mg 00:00: mouth [place] disintegrat 00 every 8 Medic al ing tablet (eight) Branch hours as needed for Nausea and Vomiting (N/V). ondansetron 2019-0 Yes [id number] 4mg Take 1 Univers (ZOFRAN 5-03 tablet by ity of ODT) 4 mg 00:00: mouth [place] disintegrat 00 every 8 Medic al ing tablet (eight) Branch hours as needed for Nausea and Vomiting (N/V). ondansetron 2019-0 Yes [id number] 4mg Take 1 Univers (ZOFRAN 5-03 tablet by ity of ODT) 4 mg 00:00: mouth [place] disintegrat 00 every 8 Medic al ing tablet (eight) Branch hours as needed for Nausea and Vomiting (N/V). ondansetron Yes [id number] 4mg Take 1 Univers (ZOFRAN 5-03 tablet by ity of ODT) 4 mg 00:00: mouth [place] disintegrat 00 every 8 Medic al ing tablet (eight) Branch hours as needed for Nausea and Vomiting (N/V). Insulin Yes QID, Univers [place], 9 DX:E11.9 ity of Disposable, 00:00: [place] (BD INSULIN 00 Medical PEN NEEDLE Branch UF) 31 gauge x 5/16" Ndle Insulin Yes QID, Univers [place], 04-05 DX:E11.9 ity of Disposable, 00:00: [place] (BD INSULIN Medical PEN NEEDLE Branch UF) 31 gauge x 5/16" Ndle Insulin Yes QID, Univers [place], 04-05 DX:E11.9 ity of Disposable, 00:00: [place] (BD INSULIN Medical PEN NEEDLE Branch UF) 31 gauge x 5/16" Ndle Insulin Yes QID, Univers [place], 04-05 DX:E11.9 ity of Disposable, 00:00: [place] (BD INSULIN 00 Medical PEN NEEDLE Branch UF) 31 gauge x 5/16" Ndle Insulin Yes QID, Univers [place], 04-05 DX:E11.9 ity of Disposable, 00:00: [place] (BD INSULIN 00 Medical PEN NEEDLE Branch UF) 31 gauge x 5/16" Ndle Insulin Yes QID, Univers [place], 04-05 DX:E11.9 ity of Disposable, 00:00: [place] (BD INSULIN Medical PEN NEEDLE Branch UF) 31 gauge x 5/16" Ndle atorvastati Yes [id number] 40mg Take 1 Univers n (LIPITOR) 9-25 tablet by ity of 40 mg 00:00: mouth at [place] tablet 00 bedtime. Medical Branch LOVAZA, Yes [id number] 2g Take 2 Uni vers omega-3-aci 9-25 capsules ity of d ethyl 00:00: by mouth 2 [place] esters, 00 (two) Medical (LOVAZA) 1 times Branch gram daily capsule before breakfast and dinner. Insulin Yes QID, Univers [place], 04-05 DX:E11.9 ity of Disposable, 00:00: [place] (BD INSULIN 00 Medical PEN NEEDLE Branch UF) 31 gauge x 5/16" Ndle atorvastati Yes [id number] 40mg Take 1 Univers n (LIPITOR) 9-25 tablet by ity of 40 mg 00:00: mouth at [place] tablet 00 bedtime. [facility], Yes [id number] 2g Take 2 Uni vers omega-3-aci -25 capsules ity of d ethyl 00:00: by mouth 2 [place] esters, 00 (two) Medical (LOVAZA) 1 times Branch gram daily capsule before breakfast and dinner. Insulin Yes QID, Univers [place], 04-05 DX:E11.9 ity of Disposable, 00:00: [place] (BD INSULIN 00 Medical PEN NEEDLE Branch UF) 31 gauge x 5/16" Ndle Insulin Yes QID, Univers [place], 04-05 DX:E11.9 ity of Disposable, 00:00: [place] (BD INSULIN Medical PEN NEEDLE Branch UF) 31 gauge x 5/16" Ndle Insulin Yes QID, Univers [place], 04-05 DX:E11.9 ity of Disposable, 00:00: [place] (BD INSULIN 00 Medical PEN NEEDLE Branch UF) 31 gauge x 5/16" Ndle atorvastati 2020- No [id number] 40mg Take 1 Univers n (LIPITOR) 04-05 tablet by it y of 40 mg 00:00: 00:00 mouth at [place] tablet 00 :00 bedtime. [facility], 2020- No [id number] 2g Take 2 Un cb omega-3-aci 04-05- capsules ity of d ethyl 00:00: 00:00 by mouth 2 [place] esters, 00 :00 (two) Medical (LOVAZA) 1 times Branch gram daily capsule before breakfast and dinner. insulin Yes [id number] Inject as U nivers aspart 6-20 instructed ity of (NOVOLOG 00:00: TID AC up [place] FLEXPEN) 00 to 80 Medical 100 unit/mL units Branch injection daily Insulin Yes [id number] 35U inject 35 U nivers Glargine 6-20 Units ity of (LANTUS 00:00: under the [place] SOLOSTAR) 00 skin every Medi maribeth 100 unit/mL morning. Bran ch (3 mL) injection insulin Yes [id number] Inject as U nivers aspart 6-20 instructed ity of (NOVOLOG 00:00: TID AC up [place] FLEXPEN) 00 to 80 Medical 100 unit/mL units Branch injection daily Insulin Yes [id number] 35U inject 35 U nivers Glargine 6-20 Units ity of (LANTUS 00:00: under the [place] SOLOSTAR) 00 skin every Medi maribeth 100 unit/mL morning. Bran ch (3 mL) injection insulin Yes [id number] Inject as U nivers aspart 6-20 instructed ity of (NOVOLOG 00:00: TID AC up [place] FLEXPEN) 00 to 80 Medical 100 unit/mL units Branch injection daily Insulin Yes [id number] 35U inject 35 U nivers Glargine 6-20 Units ity of (LANTUS 00:00: under the [place] SOLOSTAR) 00 skin every Medi maribeth 100 unit/mL morning. Bran ch (3 mL) injection insulin Yes [id number] Inject as U nivers aspart 6-20 instructed ity of (NOVOLOG 00:00: TID AC up [place] FLEXPEN) 00 to 80 Medical 100 unit/mL units Branch injection daily Insulin Yes [id number] 35U inject 35 U nivers Glargine 6-20 Units ity of (LANTUS 00:00: under the [place] SOLOSTAR) 00 skin every Medi maribeth 100 unit/mL morning. Bran ch (3 mL) injection insulin Yes [id number] Inject as U nivers aspart 6-20 instructed ity of (NOVOLOG 00:00: TID AC up [place] FLEXPEN) 00 to 80 Medical 100 unit/mL units Branch injection daily Insulin Yes [id number] 35U inject 35 U nivers Glargine 6-20 Units ity of (LANTUS 00:00: under the [place] SOLOSTAR) 00 skin every Medi maribeth 100 unit/mL morning. Bran ch (3 mL) injection glucagon 1 Yes [id number] Use as U nivers mg/mL SolR 6-20 instructed ity of injection 00:00: in case of [place] 00 severe Medical hypoglycem Branch ia. insulin Yes [id number] Inject as U nivers aspart 6-20 instructed ity of (NOVOLOG 00:00: TID AC up [place] FLEXPEN) 00 to 80 Medical 100 unit/mL units Branch injection daily Insulin Yes [id number] 35U inject 35 U nivers Glargine 6-20 Units ity of (LANTUS 00:00: under the [place] SOLOSTAR) 00 skin every Medi maribeth 100 unit/mL morning. Bran ch (3 mL) injection insulin Yes [id number] Inject as U nivers aspart 6-20 instructed ity of (NOVOLOG 00:00: TID AC up [place] FLEXPEN) 00 to 80 Medical 100 unit/mL units Branch injection daily Insulin Yes [id number] 35U inject 35 U nivers Glargine 6-20 Units ity of (LANTUS 00:00: under the [place] SOLOSTAR) 00 skin every Medi maribeth 100 unit/mL morning. Bran ch (3 mL) injection glucagon 1 Yes [id number] Use as U nivers mg/mL SolR 6-20 instructed ity of injection 00:00: in case of [place] 00 severe Medical hypoglycem Branch ia. insulin Yes [id number] Inject as U nivers aspart 6-20 instructed ity of (NOVOLOG 00:00: TID AC up [place] FLEXPEN) 00 to 80 Medical 100 unit/mL units Branch injection daily Insulin Yes [id number] 35U inject 35 U nivers Glargine 6-20 Units ity of (LANTUS 00:00: under the [place] SOLOSTAR) 00 skin every Medi maribeth 100 unit/mL morning. Bran ch (3 mL) injection insulin Yes [id number] Inject as U nivers aspart 6-20 instructed ity of (NOVOLOG 00:00: TID [place] FLEXPEN) 00 to 80 Medical 100 unit/mL units Branch injection daily Insulin Yes [id number] 35U inject 35 U nivers Glargine 6-20 Units ity of (LANTUS 00:00: under the [place] SOLOSTAR) 00 skin every Medi maribeth 100 unit/mL morning. Bran ch (3 mL) injection insulin Yes [id number] Inject as U nivers aspart 6-20 instructed ity of (NOVOLOG 00:00: TID [place] FLEXPEN) 00 to 80 Medical 100 unit/mL units Branch injection daily Insulin Yes [id number] 35U inject 35 U nivers Glargine 6-20 Units ity of (LANTUS 00:00: under the [place] SOLOSTAR) 00 skin every Medi maribeth 100 unit/mL morning. Bran ch (3 mL) injection glucagon 1 2020- No [id number] Use as Univers mg/mL SolR 6-20 02-08 [...] ity of mg tablet 00:00: every 6 [place] 00 (six) Medical hours as Branch needed [...] by mouth ity of tablet 00:00: daily. [place] [facility] enalapril 2014-07 Yes 5mg Take 1 Tab Un cb (VASOTEC) 5 0-10 by mouth ity of mg tablet 00:00: daily. [place] [facility] fenofibrate 2014-07 Yes 134mg Take 1 Cap Univers micronized 0-10 by mouth ity o f (LOFIBRA) 00:00: daily. [place] 134 mg 00 Medical capsule Branch aspirin [...] mouth ity o f (LOFIBRA) 00:00: daily. [place] 134 mg 00 Medical capsule Branch aspirin 81 2014-07 2020- No 81mg Take 1 Tab Univers mg chewable 0-10 07-31 by mouth ity of tablet 00:00: 00:00 daily. [place] 00 :00 Medical Branch enalapril 2014-07 2020- No 5mg Take 1 Tab U nivers (VASOTEC) 5 0-10 07-31 by mouth ity of mg tablet 00:00: 00:00 daily. 00 :00 Medical Branch fenofibrate 2014-07 2020- No 134mg Take 1 Cap Univers micronized 0-10 07-31 by mouth ity of (LOFIBRA) 00:00: 00:00 daily. [place] 134 mg 00 :00 Medical capsule Branch blood sugar 2011-07 Yes [id number] before Univers diagnostic 0-05 meals and ity of (FREESTYLE 00:00: at [place] INSULINX) 00 bedtime. Medica l strip Branch blood sugar 2011-07 Yes [id number] before Univers diagnostic 0-05 meals and ity of (FREESTYLE 00:00: at [place] INSULINX) 00 bedtime. Medica l strip Branch blood sugar 2011-07 2020- No [id number] before Univers diagnostic 0-05 07-31 meals and ity of (FREESTYLE 00:00: 00:00 at [place] INSULINX) 00 :00 bedtime. Medica l strip Branch Lancets Yes [id number] Univer s (LANCETS,UL 9-24 ity of TRA THIN) 00:00: [facility] Medical Branch Lancets 2011-0 Yes [id number] Univer s (LANCETS,UL 9-24 ity of TRA THIN) 00:00: [place] [address] Medical Branch Lancets 2011-0 Yes [id number] Univer s (LANCETS,UL 9-24 ity of TRA THIN) 00:00: [place] [address] Medical Branch Lancets 2012-0 Yes [id number] Univer s (LANCETS,UL 9-24 ity of TRA THIN) 00:00: [place] [address] Medical Branch Lancets 2012-0 Yes [id number] Univer s (LANCETS,UL 9-24 ity of TRA THIN) 00:00: [place] [address] Medical Branch Lancets 2012-0 Yes [id number] Univer s (LANCETS,UL 9-24 ity of TRA THIN) 00:00: [place] [address] Medical Branch Lancets 2012-0 Yes [id number] Univer s (LANCETS,UL 9-24 ity of TRA THIN) 00:00: [place] [address] Medical Branch Lancets 2012-0 Yes [id number] Univer s (LANCETS,UL 9-24 ity of TRA THIN) 00:00: [place] [address] Medical Branch Lancets 2012-0 Yes [id number] Univer s (LANCETS,UL 9-24 ity of TRA THIN) 00:00: [place] [address] Medical Branch Lancets 2012-0 Yes [id number] Univer s (LANCETS,UL 9-24 ity of TRA THIN) 00:00: [place] [address] Medical Branch Vital Signs Vital Name Observation Time Observation Value Comments Source Systolic blood 2020-11-16 21:02:00 150 mm[Hg] Univer sity of pressure [place] [facility] Diastolic blood 2020-11-16 21:02:00 93 mm[Hg] Unive rsity of pressure [place] [facility] Heart rate 2020-11-16 21:02:00 93 /min Universi ty of [place] [facility] Respiratory rate 2020-11-16 21:02:00 20 /min Univ ersity of [place] [facility] Oxygen saturation in 2020-11-16 21:02:00 100 /min University of Arterial blood by [facility] Pulse oximetry Branch Body temperature 2020-11-16 18:21:00 36.61 Dejah Univ ersity of [place] [facility] Body weight 2020-11-16 18:21:00 89.359 kg Universi ty of [place] [facility] BMI 2020-11-16 18:21:00 28.27 kg/m2 Universi ty of [place] [facility] Systolic blood 2020-07-28 21:58:00 147 mm[Hg] Univer sity of pressure [place] [facility] Diastolic blood 2020-07-28 21:58:00 100 mm[Hg] Unive rsity of pressure [place] [facility] Heart rate 2020-07-28 21:58:00 103 /min Universi ty of [place] [facility] Body temperature 2020-07-28 21:58:00 36.28 Dejah Univ ersity of [place] [facility] Respiratory rate 2020-07-28 21:58:00 20 /min Univ ersity of [place] [facility] Body weight 2020-07-28 21:58:00 86.183 kg Universi ty of [place] [facility] BMI 2020-07-28 21:58:00 27.26 kg/m2 Universi ty of [place] [facility] Oxygen saturation in 2020-07-28 21:58:00 100 /min University of Arterial blood by [facility] Pulse oximetry Branch Systolic blood 2020-06-29 22:21:00 133 mm[Hg] Univer sity of pressure [place] [facility] Diastolic blood 2020-06-29 22:21:00 81 mm[Hg] Unive rsity of pressure [facility] Heart rate 2020-06-29 22:21:00 89 /min Universi ty of [facility] Body temperature 2020-06-29 22:21:00 36.83 Dejah Univ ersity of [facility] Respiratory rate 2020-06-29 22:21:00 18 /min Univ ersity of [facility] Oxygen saturation in 2020-06-29 22:21:00 99 /min University of Arterial blood by [facility] Pulse oximetry Branch Body weight 2020-06-27 10:03:00 87.998 kg Universi ty of [facility] BMI 2020-06-27 10:03:00 27.84 kg/m2 Universi ty of [facility] Body height 2020-06-26 07:45:00 177.8 cm Universi ty of [facility] Systolic blood 2020-06-29 22:21:00 133 mm[Hg] Univer sity of pressure [facility] Diastolic blood 2020-06-29 22:21:00 81 mm[Hg] Unive rsity of pressure [facility] Heart rate 2020-06-29 22:21:00 89 /min Universi ty of [facility] Body temperature 2020-06-29 22:21:00 36.83 Dejah Univ ersity of [facility] Respiratory rate 2020-06-29 22:21:00 18 /min Univ ersity of [facility] Oxygen saturation in 2020-06-29 22:21:00 99 /min University of Arterial blood by [facility] Pulse oximetry Branch Body weight 2020-06-27 10:03:00 87.998 kg Universi ty [facility] BMI 2020-06-27 10:03:00 27.84 kg/m2 Universi ty [facility] Body height 2020-06-26 07:45:00 177.8 cm Universi ty [facility] Procedures Procedure Date / Time Performing Clinician Source Performed CT ABDOMEN PELVIS W 2020-11-16 19:40:14 Nader Mendoza [facility] LIPASE 2020-11-16 18:28:00 Nader Mendoza [facility] MAGNESIUM 2020-11-16 18:28:00 Nader Mendoza [facility] COMP. METABOLIC PANEL 2020-11-16 18:28:00 Nadre Mendoza [facility] ([id number]) Medical Branch CBC WITH DIFF 2020-11-16 18:28:00 Nader Mendoza [facility] URINALYSIS 2020-11-16 18:28:00 Nader Mendoza Shayla [facility] POCT GLUCOSE (AUTOMATED) 2020-11-16 18:25:00 Nader Mendoza [facility] CONSENT/REFUSAL FOR 2020-11-16 18:14:39 Doctor Unassigned, [facility] DIAGNOSIS AND TREATMENT [place] [facility] CT CERVICAL SPINE WO 2020-07-28 22:41:56 Lillian Barr [facility] CONTRAST [facility] CT HEAD WO CONTRAST 2020-07-28 22:41:56 Lillian Barr [facility] NOTICE OF PRIVACY 2020-07-28 21:50:31 Doctor Unassigned, [facility] PRACTICES [place] [facility] [place] CONSENT/REFUSAL FOR 2020-07-28 21:50:20 Doctor Unassigned, [facility] DIAGNOSIS AND TREATMENT [place] [facility] POCT GLUCOSE (AUTOMATED) 2020-06-29 23:35:00 [facility] 2020-06-29 18:04:00 Rebeca [facility] POCT GLUCOSE (AUTOMATED) 2020-06-29 13:54:00 [facility] TRIGLY[facility]ERIDES 2020-06-29 11:20:00 Ellis Almeida [facility] BASIC METABOLIC PANEL 2020-06-29 11:20:00 [facility] (NA, K, CL, CO2, GLUCOSE, Medica l Branch BUN, CREATININE, CA) CBC WITH DIFF 2020-06-29 11:20:[address] [facility] - DRUG SCREEN 2020-06-29 03:10:00 Favio Moscoso [facility] TRIAGE [facility] POCT GLUCOSE (AUTOMATED) 2020-06-28 22:46:00 Rebeca [facility] POCT GLUCOSE (AUTOMATED) 2020-06-28 18:53:00 Rebeca Laurence Uni versity of [facility] POCT GLUCOSE (AUTOMATED) 2020-06-28 18:01:00 Rebeca Laurence Bagley versity of [facility] POCT GLUCOSE (AUTOMATED) 2020-06-28 13:27:00 Rebeca Laurence Bagley versity of [facility] POCT GLUCOSE (AUTOMATED) 2020-06-28 11:48:00 [facility] TRIGLYCERIDES 2020-06-28 10:27:00 Ellis Almeida [facility] LIPASE 2020-06-28 10:27:00 Rebeca [facility] MAGNESIUM 2020-06-28 10:27:00 Danis [facility] BASIC METABOLIC PANEL 2020-06-28 10:27[facility]00 [facility] ([facility], K, CL, CO2, GLUCOSE, Medica l Branch BUN, CREATININE, CA) ETHANOL 2020-06-28 10:27:00 Danis [facility] CBC WITH DIFF 2020-06-28 10:27:[address] [facility] PO[facility] GLUCOSE (AUTOMATED) 2020-06-28 10:10:00 Rebeca Laurence Bagley versity of [facility] POCT GLUCOSE (AUTOMATED) 2020-06-28 07:00:00 Rebeca Laurence Bagley versity of [facility] POCT GLUCOSE (AUTOMATED) 2020-06-28 05:48:00 Rebeca Laurence Bagley versity of [facility] POCT GLUCOSE (AUTOMATED) 2020-06-28 04:45:00 Rebeca Laurence Uni versity of [facility] POCT GLUCOSE (AUTOMATED) 2020-06-28 03:40:00 Rebeca Valerieprice Uni versity of [facility] POCT GLUCOSE (AUTOMATED) 2020-06-28 02:43:00 [facility] POCT GLUCOSE (AUTOMATED) 2020-06-28 01:39:00 Rebeca Laurence Uni versity of [facility] POCT GLUCOSE (AUTOMATED) 2020-06-27 23:10:00 [facility] TRIGLYCERIDES 2020-06-27 23:08:00 [facility]) 2020-06-27 21:29:00 Rebeca Laurence Uni versity of [facility] POCT GLUCOSE (AUTOMATED) 2020-06-27 19:54:00 Rebeca Laurence Uni versity of [facility] POCT GLUCOSE (AUTOMATED) 2020-06-27 18:59:00 Edtere Laurence Uni versity of [facility] POCT GLUCOSE (AUTOMATED) 2020-06-27 17:42:00 Edioncal, Laurence Uni versity of [facility] POCT GLUCOSE (AUTOMATED) 2020-06-27 16:50:00 Edtere Laurence Uni versity of [facility] POCT GLUCOSE (AUTOMATED) 2020-06-27 14:43:00 Edtere Laurence Uni versity of [facility] POCT GLUCOSE (AUTOMATED) 2020-06-27 13:19:00 Rebeca Laurence [employer] versity of [facility] POCT GLUCOSE (AUTOMATED) 2020-06-27 12:18:00 Rebeca Laurence [employer] versity [facility] TRIGLYCERIDES 2020-06-27 10:20:00 [facility]IP[facility] 2020-06-27 10:20:[address] [facility] BASIC METABOLIC PANEL 2020-06-27 10:20:00 Rebeca [facility] (NA, K, CL, CO2, GLUCOSE, Medica l Branch BUN, CREATININE, CA) CBC WITH DIFF 2020-06-27 10:20:00 Rebeca [facility] POCT GLUCOSE (AUTOMATED) 2020-06-27 10:06:00 Rebeca Laurence [employer] versity of [facility] POCT GLUCOSE (AUTOMATED) 2020-06-27 09:06:00 Rebeca [employer] versity of [facility] POCT GLUCOSE (AUTOMATED) 2020-06-27 08:07:00 Rebeca [employer] versity of [facility] POCT GLUCOSE (AUTOMATED) 2020-06-27 07:09:00 Edtere Men [employer] Uni versity of [facility] POCT GLUCOSE (AUTOMATED) 2020-06-27 06:02:00 Edlilawe, Valeriey Uni versity of [place] [facility] POCT GLUCOSE (AUTOMATED) 2020-06-27 04:52:00 [...] 2020-06-27 01:15:00 Edtere, [facility] Uni versity of [place] [facility] POCT GLUCOSE (AUTOMATED) 2020-06-27 00:07:00 EdValerie carranzay Uni versity of [place] [facility] POCT GLUCOSE (AUTOMATED) 2020-06-26 22:46:00 Edioncal, [facility] Uni versity of [place] [facility] TRIGLYCERIDES 2020-06-26 22:07:00 Ellis Almeida [facility] o f [place] [facility] POCT GLUCOSE (AUTOMATED) 2020-06-26 21:45:00 EdValerie carranzay Uni versity of [place] [facility] POCT GLUCOSE (AUTOMATED) 2020-06-26 20:38:00 Rebeca [facility] Uni versity of [place] [facility] POCT GLUCOSE (AUTOMATED) 2020-06-26 18:13:00 Laurence Jose Uni versity of [place] [facility] POCT GLUCOSE (AUTOMATED) 2020-06-26 17:03:00 Valerie Josey Uni versity of [place] [facility] LIPASE 2020-06-26 11:15:00 Rebeca [facility] o f [place] [facility] LIPID PANEL ([id number])(TOTAL 2020-06-26 11:15:00 Laurence [facility] [place] CHOLESTEROL, Medical Branch TRIGLYCERIDES, HDL) GLYCOSYLATED HEMOGLOBIN 2020-06-26 11:15:00 Rebeca [facility] LOW-DENSITY LIPOPROTEIN, 2020-06-26 11:15:00 Laurence Jose Uni [facility] DIRECT Medical Branch POCT GLUCOSE (AUTOMATED) 2020-06-26 11:12:00 Laurence Jose Yudi [facility] CT ABDOMEN PELVIS W 2020-06-26 04:40:39 Kofi Beebe [facility] CONTRAST [facility] ASSIGNMENT OF BENEFITS 2020-06-26 03:16:02 Doctor Unasschiquita, [facility] [place] [facility] COVID-19 (ID NOW RAPID 2020-06-26 03:12:00 Kofi Beebe [facility] TESTING) Medical Branch LAB ONLY COVID 2020-06-26 03:12:00 Kofi Beebe [facility] INTERPRETATION [facility] Branch LIPASE 2020-06-26 02:54:00 K[facility]i [facility]be [facility] COMP. METABOLIC PANEL 2020-06-26 02:54:00 Kofi Beebe [facility] ([id number]) Medical Branch CBC WITH DIFF 2020-06-26 02:54:00 Kofi Beebe [facility] POCT GLUCOSE (AUTOMATED) 2020-06-26 02:44:00 Kofi Beebe [facility] CONSENT/REFUSAL FOR 2020-06-26 02:29:58 Doctor Rachid, [facility] DIAGNOSIS AND TREATMENT [place] [facility] EXTERNAL PROVIDER RECORDS 2020-02-09 05:01:00 Doctor Rachid, [facility] Name [facility] Encounters Start End Encounter Admission Attending Care Care Encounter Source Date/Time Date/Time Type Type Clinicians Facility Department ID 2021-10-03 Inpatient Chetan Coleman [facility] [id number] [facility] 16:00:00 68 2021-09-29 Inpatient Chetan Coleman [facility] [id number] [facility] 17:00:00 79 2021-05-11 Emergency [facility] [id number] Univers 17:56:10 ity of [facility] 2021-05-10 Emergency [facility] [id number] Univers 17:48:01 ity [facility] 2021-05-10 Emergency [facility] [id number] Univers [facility] 2021-10-03 2021-10-03 Outpatient [facility] [id number] [facility] 16:42:00 16:42:00 68 2021-09-29 2021-09-29 Outpatient [facility] [id number] [facility] 14:17:00 14:17:00 79 2021-09-25 2021-09-25 Outpatient Elective Chetan Coleman [facility] [id number] [facility] 13:47:00 13:47:00 55 2021-09-25 2021-09-25 Outpatient [facility] [id number] [facility] 13:47:00 13:47:00 55 2020-11-16 2020-11-16 Emergency Nader Mendoza [facility] [id number] Univers 13:16:00 16:24:00 Shayla Pierre [id number] i ty of [place] 4.2.7.2.686 [facility] [phone] [place] [id number] Branch 2020-11-16 2020-11-16 Orders Doctor JEROME [id number] [place] [address] 00:00:00 00:00:00 Only Unassigned, KYLE [id number] ity of [place] [facility] [id number] Sergio as [phone] [facility] 009 Branch 2020-07-28 2020-07-28 [facility] [id number] [facility] 16:00:00 17:40:00 Lillian Pierre [id number] i ty of [place] 4.2.7.2.686 [facility] [id number] [place] [address] Branch 2020-07-28 2020-07-28 Orders Doctor JEROME [id number] [facility] 00:00:00 00:00:00 Only Unassigned, KYLE [id number] ity of [place] [facility] 4.2.7.2.686 Sergio as [id number] [facility] 009 Branch 2020-07-01 2020-07-01 Transition Sam Correa [id number] [facility] 00:00:00 00:00:00 of Care Annita Bucky [id number] i ty [place] [id number] [facility] 403 Branch 2020-07-01 2020-07-01 Transition Sam Correa [id number] 00:00:00 00:00:00 of Care Annita Bucky [id number] [place] 4.2.7.2.686 [id number] [facility] 2020-06-25 2020-06-29 [facility] 1.2.840. 114 [id number] [facility] 20:44:00 19:29:00 Encounter Laurence Jose [id number] ity of [place] 4.2.7.2.686 [facility] [id number] [facility] [address] [place] [address] 2020-06-25 2020-06-29 [facility] 1.2.840. 114 [id number] 20:44:00 19:29:00 Encounter Laurence Jose [id number] [place] 4.2.7.2.686 [place] [id number] [facility] 2020-06-25 2020-06-25 Orders Doctor JEROME [id number] Univers 00:00:00 00:00:00 Only Unassigned, KYLE 350.1.13.10 ity of [place] [facility] 4.2.7.2.686 Sergio as [id number] [facility] 009 Branch 2020-06-25 2020-06-25 Orders Doctor QUEENIE [id number] 00:00:00 00:00:00 Only Unassigned, KYLE 350.1.13.10 [place] [facility] 4.2.7.2.686 [id number] 009 2020-02-09 2020-02-09 [facility] [id number] [facility] 15:04:39 15:53:06 ne Visit Cole Pierre [id number] ity [place] Profess[place] [phone] Me dical [address] 2020-02-09 2020-02-09 [facility] 1.2.840.114 [id number] 15:04:39 15:53:06 ne Visit Cole Cohen Ignacio 350.1.13.10 [place] 4.2.7.2.686 Professio [id number] [address] 2020-02-09 2020-02-09 [facility] [id number] [facility] 15:00:00 15:00:00 COLE medina of [facility] 2020-02-09 2020-02-09 Orders Doctor QUEENIE 1.2.840.114 [id number] [facility] 00:00:00 00:00:00 Only Unassigned, KYLE 350.1.13.10 ity of [place] [facility] 4.2.7.2.686 Sergio as [phone] [address] 2020-02-09 2020-02-09 Orders Doctor QUEENIE 1.2.840.114 [id number] 00:00:00 00:00:00 Only Unassigned, KYLE 350.1.13.10 [place] [facility] 4.2.7.2.686 [id number] [facility] 2020-02-07 2020-02-07 [facility] 1.2.840.114 [id number] [facility] 00:00:00 00:00:00 Cole Pierre 350.1.13.10 i ty [place] [phone] Ms dical [address] 2020-02-07 2020-02-07 Telephone [facility] 1.2.840.114 [id number] 00:00:00 00:00:00 Cole Pierre 350.1.13.10 [place] 4.2.7.2.686 Professio [phone] [address] Results Test Description Test Time Test Comments Results Result Comments Source Glucose Fingerstick 2021-10-03 20:01:00 Test Item Value Reference Range Interpretation Comme nts Glucose Fingerstick (test code = WGLUC) 247 mg/dL 70-115 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 Benton (test code = WGLUC) Svetneerajk [id number] 19:20:17 Test Item Value Reference Range Interpretation Comments APPEARANCE (test code = Clear Clear 2037573012) COLOR (test code = Mindy Yellow A 5108903640) PH (test code = 4.8-8.0 9225869347) SP GRAVITY (test code = 1.003-1.030 4061809628) GLU U QUAL (test code = 150 mg/dL Normal A 6008220582) BLOOD (test code = Negative Negative 4535150669) KETONES (test code = Negative Negative 3620739532) PROTEIN (test code = Negative Negative 2887-8) UROBILIN (test code = Normal Normal 5604817412) BILIRUBIN (test code = Negative Negative 5099282614) NITRITE (test code = Negative Negative 4126467406) LEUK BURTON (test code = Negative Negative 1524594794) RBC/HPF (test code = See_Comment [Autom ated message] 1959805926) The system [employer] generated this result transmit j luis reference range : 0 - 3 HPF. The refe rence range was not u sed to interpret th is result as normal/abnormal . WBC/HPF (test code = See_Comment [Autom ated message] 6633239685) The system [employer] generated this result transmit j luis reference range : 0 - 5 HPF. The refe rence range was not u sed to interpret th is result as normal/abnormal . BACTERIA (test code = Negative Negative 3416876214) MUCOUS (test code = Moderate Negative LPF A 2525621178) Lab Interpretation (test Abnormal code = 78934-3) [facility]04 Test Item Value Reference Range Interpretation Comments MAGNESIUM (test code = 6333516638) 1.9 mg/dL 1.7-2.4 Lab Interpretation (test code = Normal 99932-3) [facility]. METABOLIC PANEL (91843)2020-11-16 19:17:44 Test Item Value Reference Range Interpretation Comments NA (test code = 138 mmol/L 135-145 3221007661) K (test code = 3.9 mmol/L 3.5-5.0 0410473317) CL (test code = 100 mmol/L 98-108 1635785170) CO2 TOTAL (test code = 28 mmol/L 23-31 4876590866) AGAP (test code = 2-16 6868352017) BUN (test code = 15 mg/dL 7-23 6783823686) GLUCOSE (test code = 215 mg/dL 70-110 H 5504823225) CREATININE (test code = 0.88 mg/dL 0.60-1.25 3372932510) TOTAL BILI (test code = 1.6 mg/dL 0.1-1.1 H 5028476182) CALCIUM (test code = 9.6 mg/dL 8.6-10.6 2671225898) T PROTEIN (test code = 7.4 g/dL 6.3-8.2 8767377009) ALBUMIN (test code = 4.6 g/dL 3.5-5.0 3594340856) ALK PHOS (test code = 90 U/L 34-122 0013794810) ALTv (test code = 15 U/L 5-50 1742-6) AST(SGOT) (test code = 17 U/L 13-40 0393372660) eGFR (test code = mL/min/1.73m2 7791384488) OSKAR (test code = OSKAR) Association of [...] tests). Lab Interpretation Abnormal (test code = 23755-1) [facility]23 Test Item Value Reference Range Interpretation Comments LIPASE (test code = 1710826488) 87 U/L 0-220 Lab Interpretation (test code = Normal 79580-6) [facility] [id number] 19:06:43 Test Item Value Reference Range Interpretation Comments WBC (test code = See_Comment [Automated 8690-2) message] The sy stem which generated this [...] RDW-SD (test code = 39.0 fL 38.5-51.6 47245-3) RDW-CV (test code = 13.9 % 12.1-15.4 788-0) PLT (test code = See_Comment [Automated 777-3) message] The sy stem which generated this result transmitted reference range : 150 - 328 10*3/ ?L. The reference r kristina was not used to interpret this result as normal/abnormal . MPV (test code = 9.4 fL 9.8-13.0 L 18845-3) NRBC/100 WBC (test See_Comment [Automat ed code = 7752099229) message] The system which generated this result transmitted reference range : 0.0 - 10.0 /100 WBCs. The refer ence range was not u sed to interpret th is result as normal/abnormal . NRBC x10^3 (test code <0.01 See_Comment [Auto mated = 6002230652) message] The s ystem which generated this result transmitted reference range : 10*3/?L. The reference range was not used to interpret this result as normal/abnormal . GRAN MAT (NEUT) % 79.9 % (test code = 770-8) IMM GRAN % (test code 0.60 % = 9431251916) LYMPH % (test code = 14.4 % 736-9) MONO % (test code = 3.9 % 5905-5) EOS % (test code = 0.6 % 713-8) BASO % (test code = 0.6 % 706-2) GRAN MAT x10^3(ANC) 7.25 10*3/uL 1.99-6.95 H (test code = 5197623918) IMM GRAN x10^3 (test 0.05 10*3/uL 0.00-0.06 code = 1523352936) LYMPH x10^3 (test code 1.30 10*3/uL 1.09-3.23 = 731-0) MONO x10^3 (test code 0.35 10*3/uL 0.36-1.02 L = 742-7) EOS x10^3 (test code = 0.05 10*3/uL 0.06-0.53 L 711-2) BASO x10^3 (test code 0.05 10*3/uL 0.01-0.09 = 704-7) Lab Interpretation Abnormal (test code = 03641-0) [facility] GLUCOSE (AUTOMATED)2020-11-16 18:27:21 Test Item Value Reference Range Interpretation Comments POCT GLU (test code = 0939204999) 218 mg/dL 70-110 H Lab Interpretation (test code = Abnormal 69181-0) [facility] GLUCOSE (AUTOMATED)2020-06-29 23:37:00 Test Item Value Reference Range Interpretation Comments POCT GLU (test code = 0986872815) 217 mg/dL 70-110 H Lab Interpretation (test code = Abnormal 98407-2) [facility] GLUCOSE (AUTOMATED)2020-06-29 18:58:00 Test Item Value Reference Range Interpretation Comments POCT GLU (test code = 4725183824) 214 mg/dL 70-110 H Lab Interpretation (test code = Abnormal 82284-6) [facility] GLUCOSE (AUTOMATED)2020-06-29 14:15:00 Test Item Value Reference Range Interpretation Comments POCT GLU (test code = 0046890000) 182 mg/dL 70-110 H Lab Interpretation (test code = Abnormal 47613-7) [facility] with [id number] 13:44:00 Test Item Value Reference Range Interpretation [...] (test code = 37.0 fL 38.5-51.6 L 00273-4) RDW-CV (test code = 12.2 % 12.1-15.4 788-0) PLT (test code = See_Comment L [Automated 777-3) message] The sy stem which generated this result transmitted reference range : 150 - 328 10*3/ ?L. The reference r kristina was not used to interpret this result as normal/abnormal . MPV (test code = 9.9 fL 9.8-13 05276-7) NRBC/100 WBC (test See_Comment [Automat ed code = 1791931389) message] The system which generated this result transmitted reference range : 0.0 - 10.0 /100 WBCs. The refer ence range was not u sed to interpret th is result as normal/abnormal . NRBC x10^3 (test code <0.01 See_Comment [Auto mated = 4221477583) message] The s ystem which generated this result transmitted reference range : 10*3/?L. The reference range was not used to interpret this result as normal/abnormal . GRAN MAT (NEUT) % 61.0 % (test code = 770-8) IMM GRAN % (test code 0.30 % = 5115421040) LYMPH % (test code = 29.5 % 736-9) MONO % (test code = 5.9 % 5905-5) EOS % (test code = 2.4 % 713-8) BASO % (test code = 0.9 % 706-2) GRAN MAT x10^3(ANC) 2.07 10*3/uL 1.99-6.95 (test code = 6298560665) IMM GRAN x10^3 (test <0.03 0-0.06 code = 1700309889) LYMPH x10^3 (test code 1.00 10*3/uL 1.09-3.23 L = 731-0) MONO x10^3 (test code 0.20 10*3/uL 0.36-1.02 L = 742-7) EOS x10^3 (test code = 0.08 10*3/uL 0.06-0.53 711-2) BASO x10^3 (test code 0.03 10*3/uL 0.01-0.09 = 704-7) Lab Interpretation Abnormal (test code = 42518-9) [facility] Test Item Value Reference Range Interpretation Comments TRIG (test code = 3371314720) 468 mg/dL 30-170 H Lab Interpretation (test code = Abnormal 04633-8) [facility] (NA, K, CL, CO2, GLUCOSE, BUN, CREATININE, CA)2020-06-29 13:12:00 Test Item Value Reference Range Interpretation Comments NA (test code = 139 mmol/L 135-145 9799464493) K (test code = 3.6 mmol/L 3.5-5 1704063580) CL (test code = 104 mmol/L 98-108 5404385223) CO2 TOTAL (test code = 25 mmol/L 23-31 7746569615) AGAP (test code = 2-16 1115078987) BUN (test code = 4 mg/dL 7-23 L 6286602841) GLUCOSE (test code = 163 mg/dL 70-110 H 3025884580) CREATININE (test code = 0.74 mg/dL 0.6-1.25 2846668021) CALCIUM (test code = 9.4 mg/dL 8.6-10.6 6009838933) eGFR Calculation mL/min/1.73m2 (Non-) (test code = 9857924390) eGFR Calculation mL/min/1.73m2 () (test code = 3048888850) OSKAR (test code = OSKAR) Association of [...] tests). Lab Interpretation Abnormal (test code = 58422-1) [facility] / [facility] - DRUG SCREEN [id number] 03:44:00 Test Item Value Reference Range Interpretation Comments BENZO U (test code = Presumptive Negative A 8987420826) Positive AUDREY U (test code = Negative Negative 3990577039) AMPHET (test code = Negative Negative 0589739463) THC (test code = Presumptive Negative A Confirmatio n of 2203078623) Positive Presumptive Positive THC result requires physician order . METHADONE (test code Negative Negative = 4406227768) Meth U (test code = Negative Negative 0219723814) OPIATES (test code = Presumptive Negative A 1877200403) Positive Cocaine Metabolite Negative Negative (test code = 2488314831) PROPOXY (test code = Negative Negative 5840758704) Tric U (test code = Presumptive Negative A Confirma tion of 4856072206) Positive Presumptive Positive TCA result requires physician order and this will b e sent to referen ce lab. PCP (test code = Negative Negative 4951489571) OXYCOD (test code = Negative Negative 8342339672) OSKAR (test code = Urine Drug Cutoff [...] testing). Lab Interpretation Abnormal (test code = 11371-3) [facility] Test Item Value Reference Range Interpretation Comments ALCOHOL (test code = <10 mg/dL 9230166777) OSKAR (test code = OSKAR) <10 Wmnqwuze90-712 Toxic>100 Depression of OXYHYDROGEN WELDER>400 Fatalities Reported [facility] GLUCOSE (AUTOMATED)2020-06-28 23:30:00 Test Item Value Reference Range Interpretation Comments POCT GLU (test code = 0040727239) 234 mg/dL 70-110 H Lab Interpretation (test code = Abnormal 05877-3) [facility] GLUCOSE (AUTOMATED)2020-06-28 19:09:00 Test Item Value Reference Range Interpretation Comments POCT GLU (test code = 8152458271) 195 mg/dL 70-110 H Lab Interpretation (test code = Abnormal 18094-1) [facility] GLUCOSE (AUTOMATED)2020-06-28 18:16:00 Test Item Value Reference Range Interpretation Comments POCT GLU (test code = 7813059362) 113 mg/dL 70-110 H Lab Interpretation (test code = Abnormal 28195-3) [facility] Test Item Value Reference Range Interpretation Comments MAGNESIUM (test code = 1857753468) 1.7 mg/dL 1.7-2.4 Lab Interpretation (test code = Normal 45804-4) [facility] GLUCOSE (AUTOMATED)2020-06-28 14:51:00 Test Item Value Reference Range Interpretation Comments POCT GLU (test code = 2734076831) 94 mg/dL 70-110 Lab Interpretation (test code = Normal 98574-2) [facility] with [id number] 14:08:00 Test Item Value Reference Range Interpretation [...] (test code = 36.2 fL 38.5-51.6 L 96584-2) RDW-CV (test code = 11.9 % 12.1-15.4 L 788-0) PLT (test code = See_Comment L [Automated 777-3) message] The sy stem which generated this result transmitted reference range : 150 - 328 10*3/ ?L. The reference r kristina was not used to interpret this result as normal/abnormal . MPV (test code = 10.0 fL 9.8-13 78811-9) NRBC/100 WBC (test See_Comment [Automat ed code = 5092970302) message] The system which generated this result transmitted reference range : 0.0 - 10.0 /100 WBCs. The refer ence range was not u sed to interpret th is result as normal/abnormal . NRBC x10^3 (test code <0.01 See_Comment [Auto mated = 6734538559) message] The s ystem which generated this result transmitted reference range : 10*3/?L. The reference range was not used to interpret this result as normal/abnormal . GRAN MAT (NEUT) % 59.7 % (test code = 770-8) IMM GRAN % (test code 0.30 % = 5176508678) LYMPH % (test code = 33.3 % 736-9) MONO % (test code = 4.8 % 5905-5) EOS % (test code = 1.3 % 713-8) BASO % (test code = 0.6 % 706-2) GRAN MAT x10^3(ANC) 1.86 10*3/uL 1.99-6.95 L (test code = 8849555865) IMM GRAN x10^3 (test <0.03 0-0.06 code = 1120803992) LYMPH x10^3 (test code 1.04 10*3/uL 1.09-3.23 L = 731-0) MONO x10^3 (test code 0.15 10*3/uL 0.36-1.02 L = 742-7) EOS x10^3 (test code = 0.04 10*3/uL 0.06-0.53 L 711-2) BASO x10^3 (test code <0.03 0.01-0.09 = 704-7) Lab Interpretation Abnormal (test code = 68412-6) [facility] Metabolic Panel (NA, K, CL, CO2, GLUCOSE, BUN, CREATININE, CA)2020-06-28 13:02:00 Test Item Value Reference Range Interpretation Comments NA (test code = 140 mmol/L 135-145 3588174317) K (test code = 3.0 mmol/L 3.5-5 L 4138212721) CL (test code = 106 mmol/L 98-108 9702611408) CO2 TOTAL (test code = 25 mmol/L 23-31 4614869069) AGAP (test code = 2-16 4433372582) BUN (test code = <2 7-23 L 2577377733) GLUCOSE (test code = 107 mg/dL 70-110 1079164347) CREATININE (test code = 0.59 mg/dL 0.6-1.25 L 6960145198) CALCIUM (test code = 8.9 mg/dL 8.6-10.6 8610355183) eGFR Calculation mL/min/1.73m2 (Non-) (test code = 3765532445) eGFR Calculation mL/min/1.73m2 () (test code = 9015693375) OSKAR (test code = OSKAR) Association of [...] tests). Lab Interpretation Abnormal (test code = 63136-4) [facility]:00 Test Item Value Reference Range Interpretation Comments TRIG (test code = 6406110409) 519 mg/dL 30-170 H Lab Interpretation (test code = Abnormal 35523-5) [facility] 12:45:00 Test Item Value Reference Range Interpretation Comments LIPASE (test code = 4725033476) 27 U/L 0-220 Lab Interpretation (test code = Normal 00832-5) [facility] 11:51:00 Test Item Value Reference Range Interpretation Comments POCT GLU (test code = 8060400274) 111 mg/dL 70-110 H Lab Interpretation (test code = Abnormal 36055-4) [facility] COVID [id number] 11:31:00COVID DMT InterpretationInterpretation/Recommendations: Molecular NAAT Tests for [...] COVID-19 testing the patient has had at [facility], including molecular NAAT testing (more commonly known as PCR testing and Rapid ID Now testing) and antibody testing. It does not take into account any testing that a patient has had outsid e of the [facility] medical record. [facility] LABORATORY SERVICESCOVID LqnivioBSDR-JlD-4 Rapid ID NOW (no units) ? ? Date ? Value ? 06/25/2020 ? Not Detected ? [facility] LABORATORY SERVICES [facility] GLUCOSE (AUTOMATED)2020-06-28 10:16:00 Test Item Value Reference Range Interpretation Comments POCT GLU (test code = 8197292579) 109 mg/dL 70-110 Lab Interpretation (test code = Normal 35445-9) [facility] GLUCOSE (AUTOMATED)2020-06-28 09:08:00 Test Item Value Reference Range Interpretation Comments POCT GLU (test code = 1469268854) 152 mg/dL 70-110 H Lab Interpretation (test code = Abnormal 45442-6) [facility] GLUCOSE (AUTOMATED)2020-06-28 06:20:00 Test Item Value Reference Range Interpretation Comments POCT GLU (test code = 5792205020) 84 mg/dL 70-110 Lab Interpretation (test code = Normal 08264-5) [facility] GLUCOSE (AUTOMATED)2020-06-28 04:47:00 Test Item Value Reference Range Interpretation Comments POCT GLU (test code = 8970211219) 95 mg/dL 70-110 Lab Interpretation (test code = Normal 51692-4) [facility] GLUCOSE (AUTOMATED)2020-06-28 03:43:00 Test Item Value Reference Range Interpretation Comments POCT GLU (test code = 5125361348) 123 mg/dL 70-110 H Lab Interpretation (test code = Abnormal 31270-9) [facility] 02:47:00 Test Item Value Reference Range Interpretation Comments POCT GLU (test code = 6121310235) 121 mg/dL 70-110 H Lab Interpretation (test code = Abnormal 09029-0) [facility]2020-[facility]-28 02:17:00 Test Item Value Reference Range Interpretation Comments POCT GLU (test code = 7552839438) 94 mg/dL 70-110 Lab Interpretation (test code = Normal 70382-3) [facility] 01:21:00 Test Item Value Reference Range Interpretation Comments TRIG (test code = 9118865714) 647 mg/dL 30-170 H Lab Interpretation (test code = Abnormal 29221-3) [facility] GLUCOSE (AUTOMATED)2020-06-27 23:29:00 Test Item Value Reference Range Interpretation Comments POCT GLU (test code = 5878715068) 87 mg/dL 70-110 Lab Interpretation (test code = Normal 71044-9) [facility] 21:36:00 Test Item Value Reference Range Interpretation Comments POCT GLU (test code = 5623889145) 85 mg/dL 70-110 Lab Interpretation (test code = Normal 63716-1) [facility] 19:55:00 Test Item Value Reference Range Interpretation Comments POCT GLU (test code = 7727601312) 91 mg/dL 70-110 Lab Interpretation (test code = Normal 58779-5) [facility] 19:01:00 Test Item Value Reference Range Interpretation Comments POCT GLU (test code = 3132544463) 125 mg/dL 70-110 H Lab Interpretation (test code = Abnormal 65362-0) [facility] 17:46:00 Test Item Value Reference Range Interpretation Comments POCT GLU (test code = 1072311858) 122 mg/dL 70-110 H Lab Interpretation (test code = Abnormal 00777-9) [facility] 16:56:00 Test Item Value Reference Range Interpretation Comments POCT GLU (test code = 5926597567) 98 mg/dL 70-110 Lab Interpretation (test code = Normal 93107-1) [facility] GLUCOSE (AUTOMATED)2020-06-27 14:47:00 Test Item Value Reference Range Interpretation Comments POCT GLU (test code = 7210310286) 209 mg/dL 70-110 H Lab Interpretation (test code = Abnormal 35497-6) [facility] GLUCOSE (AUTOMATED)2020-06-27 14:47:00 Test Item Value Reference Range Interpretation Comments POCT GLU (test code = 8746970778) 181 mg/dL 70-110 H Lab Interpretation (test code = Abnormal 46298-4) [facility] with Vjldrzlnokcc9741-92-09 12:55:00 Test Item Value Reference Range Interpretation [...] (test code = 35.6 fL 38.5-51.6 L 60784-8) RDW-CV (test code = 11.8 % 12.1-15.4 L 788-0) PLT (test code = See_Comment L [Automated 777-3) message] The sy stem which generated this result transmitted reference range : 150 - 328 10*3/ ?L. The reference r kristina was not used to interpret this result as normal/abnormal . MPV (test code = 9.9 fL 9.8-13 29373-7) NRBC/100 WBC (test See_Comment [Automat ed code = 9371545949) message] The system which generated this result transmitted reference range : 0.0 - 10.0 /100 WBCs. The refer ence range was not u sed to interpret th is result as normal/abnormal . NRBC x10^3 (test code <0.01 See_Comment [Auto mated = 9905421901) message] The s ystem which generated this result transmitted reference range : 10*3/?L. The reference range was not used to interpret this result as normal/abnormal . GRAN MAT (NEUT) % 59.3 % (test code = 770-8) IMM GRAN % (test code 0.30 % = 2979766972) LYMPH % (test code = 33.7 % 736-9) MONO % (test code = 4.7 % 5905-5) EOS % (test code = 1.3 % 713-8) BASO % (test code = 0.7 % 706-2) GRAN MAT x10^3(ANC) 1.78 10*3/uL 1.99-6.95 L (test code = 6844856779) IMM GRAN x10^3 (test <0.03 0-0.06 code = 8055675745) LYMPH x10^3 (test code 1.01 10*3/uL 1.09-3.23 L = 731-0) MONO x10^3 (test code 0.14 10*3/uL 0.36-1.02 L = 742-7) EOS x10^3 (test code = 0.04 10*3/uL 0.06-0.53 L 711-2) BASO x10^3 (test code <0.03 0.01-0.09 = 704-7) Lab Interpretation Abnormal (test code = 94813-5) [facility] GLUCOSE (AUTOMATED)2020-06-27 12:26:00 Test Item Value Reference Range Interpretation Comments POCT GLU (test code = 5438173351) 238 mg/dL 70-110 H Lab Interpretation (test code = Abnormal 65056-5) [facility] GLUCOSE (AUTOMATED)2020-06-27 12:20:00 Test Item Value Reference Range Interpretation Comments POCT GLU (test code = 6565221791) 216 mg/dL 70-110 H Lab Interpretation (test code = Abnormal 28827-1) [facility] 12:03:00 Test Item Value Reference Range Interpretation Comments TRIG (test code = 5091501651) 810 mg/dL 30-170 H Lab Interpretation (test code = Abnormal 49768-1) [facility] (NA, K, CL, CO2, GLUCOSE, BUN, CREATININE, CA)2020-06-27 11:56:00 Test Item Value Reference Range Interpretation Comments NA (test code = 135 mmol/L 135-145 1675847974) K (test code = 3.6 mmol/L 3.5-5 9845770798) CL (test code = 104 mmol/L 98-108 7027110955) CO2 TOTAL (test code = 23 mmol/L 23-31 8805404408) AGAP (test code = 2-16 9694087440) BUN (test code = 5 mg/dL 7-23 L 0225566344) GLUCOSE (test code = 191 mg/dL 70-110 H 5487706961) CREATININE (test code = 0.56 mg/dL 0.6-1.25 L 6952531318) CALCIUM (test code = 8.9 mg/dL 8.6-10.6 3526621974) eGFR Calculation mL/min/1.73m2 (Non-) (test code = 4088240166) eGFR Calculation mL/min/1.73m2 () (test code = 3252296930) OSKAR (test code = OSKAR) Association of [...] tests). Lab Interpretation Abnormal (test code = 92114-1) [facility]:00 Test Item Value Reference Range Interpretation Comments LIPASE (test code = 3720179057) 40 U/L 0-220 Lab Interpretation (test code = Normal 13337-9) [facility] GLUCOSE (AUTOMATED)2020-06-27 09:09:00 Test Item Value Reference Range Interpretation Comments POCT GLU (test code = 8700492514) 185 mg/dL 70-110 H Lab Interpretation (test code = Abnormal 45851-4) [facility] GLUCOSE (AUTOMATED)2020-06-27 08:09:00 Test Item Value Reference Range Interpretation Comments POCT GLU (test code = 0104048645) 124 mg/dL 70-110 H Lab Interpretation (test code = Abnormal 91516-5) [facility] GLUCOSE (AUTOMATED)2020-06-27 07:11:00 Test Item Value Reference Range Interpretation Comments POCT GLU (test code = 7325368939) 104 mg/dL 70-110 Lab Interpretation (test code = Normal 56228-9) [facility] GLUCOSE (AUTOMATED)2020-06-27 06:04:00 Test Item Value Reference Range Interpretation Comments POCT GLU (test code = 7106190235) 97 mg/dL 70-110 Lab Interpretation (test code = Normal 03638-9) [facility] GLUCOSE (AUTOMATED)2020-06-27 04:54:00 Test Item Value Reference Range Interpretation Comments POCT GLU (test code = 2870899216) 54 mg/dL 70-110 L Lab Interpretation (test code = Abnormal 19513-7) [facility] 04:04:00 Test Item Value Reference Range Interpretation Comments POCT GLU (test code = 7268342545) 88 mg/dL 70-110 Lab Interpretation (test code = Normal 74083-1) [facility] 03:32:00 Test Item Value Reference Range Interpretation Comments POCT GLU (test code = 0704730621) 104 mg/dL 70-110 Lab Interpretation (test code = Normal 89349-3) [facility] 03:05:00 Test Item Value Reference Range Interpretation Comments POCT GLU (test code = 0410389409) 68 mg/dL 70-110 L Lab Interpretation (test code = Abnormal 94462-5) [facility] 02:05:00 Test Item Value Reference Range Interpretation Comments POCT GLU (test code = 7086254061) 113 mg/dL 70-110 H Lab Interpretation (test code = Abnormal 98021-5) [facility] 01:21:00 Test Item Value Reference Range Interpretation Comments POCT GLU (test code = 9262738616) 122 mg/dL 70-110 H Lab Interpretation (test code = Abnormal 10432-2) [facility] 00:09:00 Test Item Value Reference Range Interpretation Comments POCT GLU (test code = 0260678860) 125 mg/dL 70-110 H Lab Interpretation (test code = Abnormal 87107-2) [facility] 23:47:00 Test Item Value Reference Range Interpretation Comments TRIG (test code = 1150310803) 1086 mg/dL 30-170 H Lab Interpretation (test code = Abnormal 91631-8) [facility] GLUCOSE (AUTOMATED)2020-06-26 23:12:00 Test Item Value Reference Range Interpretation Comments POCT GLU (test code = 4519394533) 175 mg/dL 70-110 H Lab Interpretation (test code = Abnormal 28151-7) [facility] GLUCOSE (AUTOMATED)2020-06-26 23:12:00 Test Item Value Reference Range Interpretation Comments POCT GLU (test code = 7558280618) 81 mg/dL 70-110 Lab Interpretation (test code = Normal 37152-4) [facility] GLUCOSE (AUTOMATED)2020-06-26 22:50:00 Test Item Value Reference Range Interpretation Comments POCT GLU (test code = 1006407046) 88 mg/dL 70-110 Lab Interpretation (test code = Normal 84867-6) [facility] GLUCOSE (AUTOMATED)2020-06-26 22:26:00 Test Item Value Reference Range Interpretation Comments POCT GLU (test code = 8330786596) 91 mg/dL 70-110 Lab Interpretation (test code = Normal 28721-7) [facility] GLUCOSE (AUTOMATED)2020-06-26 17:06:00 Test Item Value Reference Range Interpretation Comments POCT GLU (test code = 9656159175) 227 mg/dL 70-110 H Lab Interpretation (test code = Abnormal 70787-8) [facility]OTE[facility], [id number] 16:31:00 Test Item Value Reference Range Interpretation Comments dLDL Chol (test code = <30 See_Comment [Aut omated message] 57002-7) The system [employer] generated this result transmitted ref erence range: <130 mg/ dL. The reference range was not used to int erpret this result as normal/abnormal . Lab Interpretation (test Normal code = 43939-8) [facility] (26360)(TOTAL CHOLESTEROL, TRIGLYCERIDES, HDL)2020-06-26 13:16:00 Test Item Value Reference Range Interpretation Comments CHOL (test code = 217 mg/dL 120-200 H 9673364847) HDL (test code = 13 mg/dL >40 L 6704269543) HDLC RATIO (test code = See_Comment H [Au tomated message] 3227000095) The system [employer] generated this result transmit j luis reference range : <=5.0. The refe rence range was not u sed to interpret th is result as normal/abnormal . TRIG (test code = 1337 mg/dL 30-170 H 6935187428) LDL CHOL (test code = Unable to calculate 35568-6) LDL due to elev ated triglyceride le abena greater than 40 0 mg/dL. VLDL (test code = Unable to calculate 4603694012) VLDL due to yohana vated triglyceride le abena greater than 71 0 mg/dL. Lab Interpretation Abnormal (test code = 76691-0) [facility]:03:00 Test Item Value Reference Range Interpretation Comments LIPASE (test code = 6667119938) 60 U/L 0-220 Lab Interpretation (test code = Normal 73415-4) [facility] (A1C)2020-06-26 12:46:00 Test Item Value Reference Range Interpretation Comments HGB A1C (test code = 9.2 % 4-6 H 4548-4) OSKAR (test code = OSKAR) %A1C (NGSP) Interpretation (ADA)4.8-5.6 ? ? Normal or (Non-Diabetic Range)5.7-6.4 ? ? Increased Risk (Pre-Diabetic)>6.5 ?Diabetes Indicated Lab Interpretation Abnormal (test code = 26680-4) [facility]2020-06-26 11:24:00 Test Item Value Reference Range Interpretation Comments POCT GLU (test code = 1138286101) 209 mg/dL 70-110 H Lab Interpretation (test code = Abnormal 49504-4) [facility] ABDOMEN PELVIS W [id number] 05:55:56Impression: 1. Peripancreatic inflammation, likely representing acute [...] demonstrated in the upper abdomen. RL: 2824AFC: 61387 End of Report Exam: CT Abdomen and [...] demonstrated in the upper abdomen. RL: [id number]: [id number] of Report [facility] HospitalCOVID-19 (ID NOW RAPID TESTING)2020-06-26 03:44:00 Test Item Value Reference Range Interpretation Comments SARS-CoV-2 Rapid ID NOW Not Detected Not Detected (test code = 58857-7) OSKAR (test code = OSKAR) ID NOW COVID-19 Assay is an isothermal nucleic acid amplification test intended for the qualitative detection of nucleic acid from SARS-CoV-2 viral RNA in nasopharyngeal (CABLE SUPERVISOR) specimens. It is used under Emergency Use [...] indicated. Lab Interpretation Normal (test code = 37749-0) [facility]. METABOLIC PANEL (78333)2020-06-26 03:17:00 Test Item Value Reference Range Interpretation Comments NA (test code = 136 mmol/L 135-145 0676279812) K (test code = 4.3 mmol/L 3.5-5 6224819816) CL (test code = 97 mmol/L 98-108 L 9872540145) CO2 TOTAL (test code = 31 mmol/L 23-31 5742036579) AGAP (test code = 2-16 3515271899) BUN (test code = 7 mg/dL 7-23 3258822520) GLUCOSE (test code = 220 mg/dL 70-110 H 0853247487) CREATININE (test code = 0.68 mg/dL 0.6-1.25 8528361754) TOTAL BILI (test code = 1.6 mg/dL 0.1-1.1 H 6163420825) CALCIUM (test code = 9.4 mg/dL 8.6-10.6 3604239094) T PROTEIN (test code = 7.6 g/dL 6.3-8.2 0330433602) ALBUMIN (test code = 4.4 g/dL 3.5-5 8257057758) ALK PHOS (test code = 103 U/L 34-122 7678741020) ALTv (test code = 113 U/L 5-50 H 1742-6) AST(SGOT) (test code = 87 U/L 13-40 H 9161498575) eGFR Calculation mL/min/1.73m2 (Non-) (test code = 1759381726) eGFR Calculation mL/min/1.73m2 () (test code = 5775621056) OSKAR (test code = OSKAR) Association of [...] tests). Lab Interpretation Abnormal (test code = 75715-0) [facility] Test Item Value Reference Range Interpretation Comments LIPASE (test code = 5648103425) 57 U/L 0-220 Lab Interpretation (test code = Normal 04392-6) [facility] WITH [id number] 03:00:00 Test Item Value Reference Range Interpretation [...] (test code = 35.3 fL 38.5-51.6 L 73815-8) RDW-CV (test code = 11.9 % 12.1-15.4 L 788-0) PLT (test code = See_Comment L [Automated 777-3) message] The sy stem which generated this result transmitted reference range : 150 - 328 10*3/ ?L. The reference r kristina was not used to interpret this result as normal/abnormal . MPV (test code = 9.3 fL 9.8-13 L 40267-4) NRBC/100 WBC (test See_Comment [Automat ed code = 3018315209) message] The system which generated this result transmitted reference range : 0.0 - 10.0 /100 WBCs. The refer ence range was not u sed to interpret th is result as normal/abnormal . NRBC x10^3 (test code <0.01 See_Comment [Auto mated = 1361465765) message] The s ystem which generated this result transmitted reference range : 10*3/?L. The reference range was not used to interpret this result as normal/abnormal . GRAN MAT (NEUT) % 74.6 % (test code = 770-8) IMM GRAN % (test code 0.30 % = 4651168375) LYMPH % (test code = 18.7 % 736-9) MONO % (test code = 4.8 % 5905-5) EOS % (test code = 1.1 % 713-8) BASO % (test code = 0.5 % 706-2) GRAN MAT x10^3(ANC) 4.71 10*3/uL 1.99-6.95 (test code = 3974023239) IMM GRAN x10^3 (test <0.03 0-0.06 code = 3932711556) LYMPH x10^3 (test code 1.18 10*3/uL 1.09-3.23 = 731-0) MONO x10^3 (test code 0.30 10*3/uL 0.36-1.02 L = 742-7) EOS x10^3 (test code = 0.07 10*3/uL 0.06-0.53 711-2) BASO x10^3 (test code 0.03 10*3/uL 0.01-0.09 = 704-7) Lab Interpretation Abnormal (test code = 07695-5) [facility]-06-26 02:46:00 Test Item Value Reference Range Interpretation Comments POCT GLU (test code = 2892767070) 248 mg/dL 70-110 H Lab Interpretation (test code = Abnormal 47891-0) [facility] Notes Date/Time Note Provider Source 2021-10-03 19:14:00-00:00 [facility] [address] [place] [address] Orthopedics Operative Note Signed Patient: Alex Auguste Medical Record#: [id number] 03 : 1980 Acct:[id number] Age/Sex: 41 / M ADM Date: 10/03/21 Loc: [facility] Room: Report Number: [id number] Att[address]: Chetan Coleman MD Orthopedic Operative [...] reduction pin fixation of distal phalanx fracture 76339 Left ring finger repair of [place] 16022 Left small finger reduction pin fixation of dis chino phalanx fracture 48558 Left small finger repair of wound involving matr ix [id number] Surgeon: Chetan Coleman MD Anesthesia: General, see [...] Patient has been given [facility] 10-page instructional packet and a follow-up appointment. Patient instructed to call the pract ice number on front of packet for any questions including date and time of next encounter. Dr. Coleman has directly prescribed to patient all outpatient medications, none to be dispensed by [facility]. The sp ecific instruction at time [...] ng this procedure and is used for billing and quality technician reproducibly on each case including that of [...] Coleman MD 10/03/211953 DD/ 13 TD/TT: 10/03/211913 Driver Engineer: LIV cc: LIV; PCPNO* Chetan Coleman MD; Pcp-Md SANDRA Barragan
[2023-03-02] MEDS ORDERED: FAMOTIDINE 20 MG/2 ML VIAL IV ONE (18:02)
[2023-03-02] MEDS ORDERED: MORPHINE 4 MG/ML SYR ONE ×2 (18:02→20:46)
[2023-03-02] MEDS ORDERED: ONDANSETRON 4 MG/2 ML VIAL ONE (18:02)
[2023-03-02] MEDS ORDERED: NA CHLORIDE 0.9% 1,000 ML ONE (18:02)
[2023-03-02 18:11] LABS: Absolute Lymphocytes (CBC) 1.5 K/uL (0.7-4.9); Hematocrit 48.9 % (39.6-49.0); Lymphocytes % 22.5 % (15.3-44.8); MCV 85.2 fL (80-100); MPV 6.9 fL (7.6-11.3); Platelets 164 thou/uL (152-406); RBC Red Blood Cell Count 5.74 M/uL (4.33-5.43)
[2023-03-02 18:26] LABS: Albumin 4.2 g/dL (3.4-5.0); Bilirubin Total 3.1 mg/dL (0.2-1.0); Potassium 2.9 mEq/L (3.5-5.1); Protein, Total 7.8 g/dL (6.4-8.2)
[2023-03-02] MEDS ORDERED: POTASSIUM 25 MEQ EFFERV TAB ONE (18:46)
--- NOTE | 2023-03-02 19:41 | RAD REPORT ---
EXAM DESCRIPTION: CTAbdomen Pelvis W Contrast - 03/02/2023 7:10 pm CLINICAL HISTORY: Abdominal pain. ABD PAIN COMPARISON: Abdomen Pelvis W Contrast dated 01/26/2023; Abdomen Pelvis W Contrast dated 12/16/2022; Abdomen Pelvis W Contrast dated 09/10/2022; Abdomen Pelvis W Contrast dated 01/07/2022 TECHNIQUE: Biphasic CT imaging of the abdomen and pelvis was performed with 100 ml non-ionic IV cont rast. All CT scans are performed using dose optimization technique as appropriate and may include automated exposure control or mA/KV adjustment according to patient size. FINDINGS: The lung bases are clear. The liver, spleen, adrenal glands and kidneys are within normal limits. There is subtle reticulation the fat adjacent to the uncinate process of the pancreas likely indicating early pancreatitis. 4 cm p ancreatic tail presumed pseudocyst is stable. Cholecystectomy clips. Numerous collateral venous struc tures are seen in the left upper quadrant No bowel obstruction, free air, free fluid or abscess. Sigmoid diverticulosis coli is present without diverticulitis. The appendix is normal. No evidence of significant lymphadenopathy. No suspicious bony findings. IMPRESSION: Subtle inflammation adjacent to the uncinate process of the pancreas likely indicates ac joy pancreatitis.
--- NOTE | 2023-03-02 20:18 | ER ---
Nurse's Notes [facility] Name: Alex Auguste Age: 42 yrs Sex: Male : 1980 Arrival Date: 03/02/2023 Time: 17:04 Bed 2 Private MD: Diagnosis: Acute pancreatitis without necrosis or infection, unspecified Presentation: 03/02 17:22 Chief complaint: Patient states: "my whole body is cramping and I've had pancreatitis aa5 and I'm sure I have it again". Coronavirus screen: At this time, the client does not indicate any symptoms associated with coronavirus-19. Ebola Screen: Patient denies travel to an Ebola-affected area in the 21 days before illness onset. Initial Sepsis Screen: Does the patient meet any 2 criteria? No. Patient's initial sepsis screen is negative. Does the patient have a suspected source of infection? No. Patient's initial sepsis screen is negative. Risk Assessment: Do you want to hurt yourself or someone else? Patient reports no desire to harm self or others. Onset of symptoms was February 2023. 17:22 Acuity: [place] 3 aa5 17:22 Method Of Arrival: Ambulatory aa5 Historical: - Allergies: 17:23 No Known Allergies; aa5 - PMHx: 17:23 angina pectoris; Chronic Pancreatitis; Diabetes - IDDM; GERD; High Triglycerides; aa5 Hypertensive disorder; - PSHx: 17:23 Cholecystectomy; aa5 - Immunization history:: Adult Immunizations up to date. - Social history:: Smoking status: Patient denies any tobacco usage or history of. Patient/guardian denies using alcohol. Screenin:07 [facility] ED Fall Risk Assessment (Adult) History of falling in the last 3 months, ld1 including since admission No falls in past 3 months (0 pts). Abuse screen: Denies threats or abuse. Denies injuries from another. Nutritional screening: No deficits noted. Tuberculosis screening: No symptoms or risk factors identified. Assessment: 18:07 General: Appears in no apparent distress. comfortable, Behavior is calm, cooperative, ld1 appropriate for age. Pain: Complains of pain in abdomen Pain does not radiate. Pain currently is 9 out of 10 on a pain scale. Quality of pain is described as throbbing. Neuro: Level of Consciousness is awake, alert, obeys commands, Oriented to person, place, time, situation. Cardiovascular: Capillary refill < 3 seconds Patient's skin is warm and dry. Rhythm is sinus rhythm. Respiratory: Airway is patent Respiratory effort is even, unlabored. GI: Abdomen is flat, non-distended, Bowel sounds present X 4 quads. Abd is soft Abdomen is tender to palpation. : No signs and/or symptoms were reported regarding the genitourinary system. EENT: No signs and/or symptoms were reported regarding the EENT system. Derm: No signs and/or symptoms reported regarding the dermatologic system. Musculoskeletal: No signs and/or symptoms reported regarding the musculoskeletal system. 18:57 Reassessment: Patient appears in no apparent distress at this time. No changes from ld1 previously documented assessment. Patient and/or family updated on plan of care and expected duration. Pain level reassessed. Patient is alert, oriented x 3, equal unlabored respirations, skin warm/dry/pink. 19:21 General: Appears in no apparent distress. Behavior is calm, cooperative. Neuro: Level kd3 of Consciousness is awake, alert, obeys commands, Oriented to person, place, time, situation. Respiratory: Airway is patent Trachea midline Respiratory effort is even, unlabored. Vital Signs: 17:22 BP 137 / 105; Pulse 113; Resp 16 S; Temp 97.6(TE); Pulse Ox 100% on R/A; aa5 17:26 Weight 77.29 kg (R); Height 5 ft. 10 in. (R); aa5 18:07 BP 153 / 98; Pulse 95; Resp 18; Pulse Ox 99% on R/A; Pain 9/10; ld1 18:57 BP 145 / 99; Pulse 86; Resp 18; Pulse Ox 99% on R/A; ld1 20:40 BP 134 / 94; Pulse 85; Resp 16; Temp 98; Pulse Ox 99% ; rv 17:26 Body Mass Index 24.45 (77.29 kg, 177.8 cm) aa5 18:07 Pain Scale: Adult ld1 [place] Coma Score: 20:40 Eye Response: spontaneous(4). Motor Response: obeys commands(6). Verbal Response: rv oriented(5). Total: 15. ED Course: 17:10 Patient arrived in ED. im 17:15 La Arciniega FNP-C [facility]. kb 17:15 Moisés Levin DO is Attending Physician. kb 17:22 Arm band placed on. aa5 17:23 Triage completed. aa5 18:01 Loyda Schmidt, KECIA is Primary Nurse. me1 18:01 Inserted saline lock: 22 gauge in right antecubital area, using aseptic technique. me1 18:02 CBC with Diff Sent. me1 18:02 CMP Sent. me1 18:02 Lipase Sent. me1 18:07 Patient has correct armband on for positive identification. Placed in gown. Bed in low ld1 position. Call light in reach. Side rails up X2. environmental consultant on. Pulse ox on. NIBP on. Door closed. Noise minimized. Warm blanket given. 18:07 No provider procedures requiring assistance completed. ld1 19:12 CT Abd/Pelvis - IV Contrast Only In Process Unspecified. EDMS 20:40 IV discontinued, intact, bleeding controlled, No redness/swelling at site. Pressure rv dressing applied. 20:41 Provided Education on: PAIN. rv Administered Medications: 18:06 Drug: Famotidine IVP 20 mg Route: IVP; Site: right antecubital; ld1 20:39 Follow up: Response: No adverse reaction rv 18:07 Drug: NS 0.9% IV 1000 ml Route: IV; Rate: 1 bolus; Site: right antecubital; ld1 20:39 Follow up: IV Status: Completed infusion; IV Intake: 1000ml rv 18:07 Drug: Ondansetron IVP 4 mg Route: IVP; Site: right antecubital; ld1 20:40 Follow up: Response: No adverse reaction rv 18:07 Drug: morphine IVP or IV 4 mg Route: IVP; Infused Over: 4 mins; Site: right antecubital;ld1 20:40 Follow up: Response: No adverse reaction rv 18:39 Drug: Potassium PO Effervescent Tablet 50 mEq Route: PO; ld1 20:39 Follow up: Response: No adverse reaction rv 20:39 Drug: morphine IVP or IV 4 mg Route: IVP; Infused Over: 4 mins; Site: right antecubital;rv 20:39 Follow up: Response: Medication administered at discharge. rv Medication: 18:07 VIS not applicable for this client. ld1 Intake: 20:39 IV: 1000ml; Total: 1000ml. rv Outcome: 20:17 Discharge ordered by . kb 20:40 Discharged to home ambulatory, with family. rv 20:40 Condition: improved 20:40 Discharge instructions given to patient, family, Instructed on discharge instructions, follow up and referral plans. medication usage, Demonstrated understanding of instructions, follow-up care, medications, Prescriptions given X 1. 20:41 Patient left the ED. rv Signatures: Dispatcher [employer] EDMS La Arciniega, CHAINSTITCH BINDER-C CHAINSTITCH BINDER-Velma Ibanez, RN RN aa5 Brannon Saul RN RN rv Glendy Levin RN RN ld1 Maria Luz Granados RN RN kd3 Mojgan Iqbal Michelle, RN RN me1 Corrections: (The following items were deleted from the chart) 17:26 17:22 Resp 16bpm; Spontaneous; Pulse Ox 100% RA; Temp 97.6F Temporal; aa5 aa5
--- NOTE | 2023-03-02 20:18 | EDPHYS ---
Physician Documentation [facility] Name: Alex Auguste Age: 42 yrs Sex: Male : 1980 Arrival Date: 03/02/2023 Time: 17:04 Bed 2 Private MD: ED Physician Moisés Levin HPI: 03/02 20:09 This 42 yrs old Male presents to ER via Ambulatory with complaints of Abdominal Pain, kb Pain All Over, Nausea/Vomiting/Diarrhea. 20:09 The patient presents with abdominal pain in the upper abdomen. Onset: The kb symptoms/episode began/occurred 1.5 week(s) ago. The symptoms do not radiate. Associated signs and symptoms: Pertinent positives: nausea and vomiting, Pertinent negatives: diarrhea, fever. The symptoms are described as constant. Modifying factors: The symptoms are alleviated by nothing, the symptoms are aggravated by nothing. Severity of pain: At its worst the pain was moderate in the emergency department the pain is unchanged. The patient has experienced similar episodes in the past, several times, today's symptoms are similar, to when the patient was apparently diagnosed with pancreatitis. The patient has not recently seen a physician. Historical: - Allergies: 17:23 No Known Allergies; aa5 - PMHx: 17:23 angina pectoris; Chronic Pancreatitis; Diabetes - IDDM; GERD; High Triglycerides; aa5 Hypertensive disorder; - PSHx: 17:23 Cholecystectomy; aa5 - Immunization history:: Adult Immunizations up to date. - Social history:: Smoking status: Patient denies any tobacco usage or history of. Patient/guardian denies using alcohol. ROS: 20:08 Constitutional: Negative for fever, chills, and weight loss. kb 20:08 Abdomen/GI: Positive for abdominal pain, nausea and vomiting. 20:08 All other systems are negative. Exam: 20:08 Constitutional: This is a well developed, well nourished patient who is awake, alert, kb and in no acute distress. Head/Face: Normocephalic, atraumatic. ENT: Moist Mucous membranes Cardiovascular: Regular rate and rhythm with a normal S1 and S2. No gallops, murmurs, or rubs. No pulse deficits. Respiratory: Respirations even and unlabored. No increased work of breathing. Talking in full sentences Skin: Warm, dry with normal turgor. Normal color. MS/ Extremity: Pulses equal, no cyanosis. Neurovascular intact. Full, normal range of motion. Neuro: Awake and alert, GCS 15, oriented to person, place, time, and situation. Moves all extremities. Normal gait. 20:08 Abdomen/GI: Inspection: abdomen appears normal, Bowel sounds: normal, Palpation: soft, in all quadrants, mild abdominal tenderness, in the right lower quadrant and left lower quadrant, moderate abdominal tenderness, in the right upper quadrant and left upper quadrant. Vital Signs: 17:22 BP 137 / 105; Pulse 113; Resp 16 S; Temp 97.6(TE); Pulse Ox 100% on R/A; aa5 17:26 Weight 77.29 kg (R); Height 5 ft. 10 in. (R); aa5 18:07 BP 153 / 98; Pulse 95; Resp 18; Pulse Ox 99% on R/A; Pain 9/10; ld1 18:57 BP 145 / 99; Pulse 86; Resp 18; Pulse Ox 99% on R/A; ld1 20:40 BP 134 / 94; Pulse 85; Resp 16; Temp 98; Pulse Ox 99% ; rv 17:26 Body Mass Index 24.45 (77.29 kg, 177.8 cm) aa5 18:07 Pain Scale: Adult ld1 [place] Coma Score: 20:40 Eye Response: spontaneous(4). Motor Response: obeys commands(6). Verbal Response: rv oriented(5). Total: 15. MDM: 17:15 Patient medically screened. kb 20:08 Differential diagnosis: gastritis, gastroesophageal reflux disease, non-specific abd kb pain, pancreatitis. Data reviewed: vital signs, nurses notes. 20:16 Consideration of Admission/Observation Escalation of care including kb admission/observation considered. admission considered for pancreatitis, but pt would like to go home at this time. States he has to be home to get his kids to school in the morning. Will return for worsening symptoms. Counseling: I had a detailed discussion with the patient and/or guardian regarding the historical points, exam findings, and any diagnostic results supporting the discharge/admit diagnosis, lab results, radiology results, the need for outpatient follow up, a family practitioner, a die maker apprentice, to return to the emergency department if symptoms worsen or persist or if there are any questions or concerns that arise at home. 03/02 17:25 Order name: CBC with Diff; Complete Time: 18:14 kb 03/02 17:25 Order name: CMP; Complete Time: 18:31 kb 03/02 17:25 Order name: Lipase; Complete Time: 18:31 kb 03/02 18:31 Order name: CT Abd/Pelvis - IV Contrast Only; Complete Time: 19:50 kb 03/02 17:25 Order name: IV Saline Lock; Complete Time: 18:02 kb 03/02 17:25 Order name: Labs collected and sent; Complete Time: 18:02 kb Administered Medications: 18:06 Drug: Famotidine IVP 20 mg Route: IVP; Site: right antecubital; ld1 20:39 Follow up: Response: No adverse reaction rv 18:07 Drug: NS 0.9% IV 1000 ml Route: IV; Rate: 1 bolus; Site: right antecubital; ld1 20:39 Follow up: IV Status: Completed infusion; IV Intake: 1000ml rv 18:07 Drug: Ondansetron IVP 4 mg Route: IVP; Site: right antecubital; ld1 20:40 Follow up: Response: No adverse reaction rv 18:07 Drug: morphine IVP or IV 4 mg Route: IVP; Infused Over: 4 mins; Site: right antecubital;ld1 20:40 Follow up: Response: No adverse reaction rv 18:39 Drug: Potassium PO Effervescent Tablet 50 mEq Route: PO; ld1 20:39 Follow up: Response: No adverse reaction rv 20:39 Drug: morphine IVP or IV 4 mg Route: IVP; Infused Over: 4 mins; Site: right antecubital;rv 20:39 Follow up: Response: Medication administered at discharge. rv Disposition: 20:25 Co-signature as Attending Physician, Moisés HERNANDEZ was immediately available on-site ms3 in the Emergency Department for consultation in the care of the patient. Disposition Summary: 03/02/23 20:17 Discharge Ordered Location: Home kb Condition: Stable kb Diagnosis - Acute pancreatitis without necrosis or infection, unspecified kb Followup: kb - With: Emergency Department - When: As needed - Reason: Worsening of condition Followup: kb - With: Private Physician - When: 2 - 3 days - Reason: Recheck today's complaints, Continuance of care, Re-evaluation by your physician Discharge Instructions: - Discharge Summary Sheet kb - Acute Pancreatitis, Vput-sz-Wyer kb Forms: - Medication Reconciliation Form kb - Thank You Letter kb - Antibiotic Education kb - Prescription Opioid Use kb - Patient Portal Instructions kb - Leadership Thank You Letter kb Prescriptions: - Tramadol 50 mg Oral Tablet - take 1 tablet by ORAL route every 8 hours as needed; 12 tablet; Refills: 0, kb Product Selection Permitted Signatures: Dispatcher [employer] EDME La Arciniega, JOSE ENRIQUE-C REFRACTORY TECHNICIAN-Velma Ibanez, RN RN aa5 Brannon Saul RN RN rv Moisés Levin, DO ms3 Glendy Levin RN RN ld1
[2023-03-02 21:08] VITALS: O2SAT 99
[2023-03-02 21:14] VITALS: BP 134/94; TEMP 98
== END 2023-03-02 20:41 | disposition home or self-care (01) ==
LOC: ER 17:04
DX: K85.90 Acute pancreatitis without necrosis or infection, unspecified (principal); I10 Essential (primary) hypertension; E11.9 Type 2 diabetes mellitus without complications
CPT/HCPCS: 96361; 85025; 36415; 83690; 80053; 74177; 96375; 96374; 99285; Q9967; J2405; J7030

== ENCOUNTER 2023-07-09 11:38 | Observation (INO) | payer BC ==
--- OUTSIDE RECORDS SUMMARY | 2023-07-09 11:44 | XMS REPORT | Continuity of Care Document ---
Author Name Unknown Address [address] [facility] [address] [place] [id number] [facility] Address [address] [facility]. [address] [place] [address] Care Team Providers Care [employer]person [employer] Name Role Phone Nader Randall Attending Clinician [phone] Doctor Unassigned, [place] Attending Clinician U Lillian Pickett Attending Clinician [phone] Madeline MCDONNELL, Annita Huizar Attending Clinician [phone] Concepción FLORES, Kofi Justice Attending Clinician [phone] Laurence Jose MD Attending Clinician [phone] Cole Guan MD Attending Clinician [phone] COLE GUAN Attending Clinician Marianne Jose MD, Laurence Admitting Clinician [phone] Payers Payer Name Policy Type Policy Number Effective Date Expirati on Date Source [facility] [id number] 2019 00:00:00 Problems Condition Name Condition Details Condition Category Status Onset Date Resolution Date Last Treatment Date Treating Clinician Comments Source Acute on chronic pancreatit is Acute on chronic pancreatit is Disease Active 2019-07 00:00: 00 [facility] Hypertrigl yceridemia Hypertrigl yceridemia Disease Active 12-29 00:00: 00 [facility] Type 2 diabetes mellitus with complicati on, with long-term current use of insulin Type 2 diabetes mellitus with complicati on, with long-term current use of insulin Disease Active 12-29 00:00: 00 [facility] Diplopia Diplopia Disease Active 2014-07 00:00: 00 [facility] Diabetes mellitus type 2, uncontroll ed, without complicati ons Diabetes mellitus type 2, uncontroll ed, without complicati ons Disease Active 04-04 00:00: 00 Overview: ICD10 Diagnosis Term [facility] Nurse Utility [facility] HLD (hyperlipi demia) HLD (hyperlipi demia) Disease Active 04-04 00:00: 00 [facility] Essential hypertensi on, benign Essential hypertensi on, benign Disease Active 04-04 00:00: 00 [facility] Vitamin D deficiency Vitamin D deficiency Disease Active 04-04 00:00: 00 Overview: ICD10 Diagnosis Term Parish Nurse Utility [facility] Allergies, Adverse Reactions, Alerts Allergy Name Allergy Type Status Severity Reaction(s) Onset Date Inactive Date Treating Clinician Comments Source NO KNOWN ALLERGIE S Drug Class Active [facility] Social History Social Habit Start Date Stop Date Quantity Comments Source History of tobacco use Snuff User [facility] Alcohol Comment occasional [facility] Exposure to SARS-CoV-2 (event) Not sure [facility] Alcohol intake 2020-06-25 00:00:00 2020-06-25 00:00:00 Current non-drinker of alcohol (finding) [facility] Tobacco use and exposure 2020-06-25 00:00:00 2020-06-25 00:00:00 Current user [facility] Sex Assigned At 1980 00:00:00 1980 00:00:00 [facility] Smoking Status Start Date Stop Date Source Never smoker [facility] Medications Ordered Medication Name Filled Medication Name Start Date Stop Date Current Medication? Ordering Clinician Indication Dosage Frequency Signature (SIG) Comments Components Source morpHINE injection 2 mg 11-16 22:00: 00 11-16 22:00 :00 No 2mg 2 mg, Slow IV Push, ONCE, 1 dose, Sat 5/21 at 1700, STAT [facility] predniSONE (DELTASONE) tablet 20 mg 11-16 21:30: 00 11-16 20:49 :00 No 20mg 20 mg, Oral, ONCE, 1 dose, 11/16/20 at 1630, ANA MARIA [facility] amoxicillin -clavulanat e (AUGMENTIN) 875-125 mg per tablet 1 tablet 11-16 21:30: 00 11-16 20:49 :00 No 1{tbl} 1 tablet, Oral, ONCE, 1 dose, 11/16/20 at 1630, Routine
Reason for Anti-Infec tive: Documented Infection< br>Documen j luis Infection Site: Abdominal< br>Duratio n of Therapy: 10 days [facility] iopamidol (ISOVUE 370-500 mL) injection 100 mL 11-16 20:45: 00 11-16 19:30 :00 No [id number] 100mL 100 mL, Intravenou s, ONCE, 1 dose, 11/16/20 at 1545, Routine [facility] morpHINE injection 4 mg 11-16 20:15: 00 11-16 19:12 :00 No 4mg 4 mg, Slow IV Push, ONCE, 1 dose, 11/16/20 at 1515, STAT [facility] ondansetron (ZOFRAN (PF)) injection 4 mg 11-16 19:30: 00 11-16 18:28 :00 No 4mg 4 mg, Slow IV Push, ONCE, 1 dose, 11/16/20 at 1430, ANA MARIA [facility] NaCl 0.9% (NS) bolus infusion 1,000 mL 11-16 19:30: 00 11-16 21:16 :00 No 1000mL at 999 mL/hr, 1,000 mL, IV Infusion, ONCE, 1 dose, 11/16/20 at 1430, STAT [facility] amoxicillin -clavulanat e 875-125 mg per tablet 11-16 00:00: 00 Yes [id number] 1{tbl} Take 1 tablet by mouth every 12 (twelve) hours. [facility] predniSONE 20 mg tablet 11-16 00:00: 00 Yes [id number] 1 PO BID x 4 days [facility] ibuprofen (IBU) tablet 800 mg 07-28 23:30: 00 07-28 22:44 :00 No 800mg 800 mg, Oral, ONCE, 1 dose, 07/28/20 at 1730, ANA MARIA [facility] Diclofenac Sodium (VOLTAREN) 1 % gel 07-28 00:00: 00 Yes [id number] Apply to area(s) 2 (two) times daily. [facility] Diclofenac Sodium (VOLTAREN) 1 % gel 07-28 00:00: 00 Yes [id number] Apply to area(s) 2 (two) times daily. [facility] Diclofenac Sodium (VOLTAREN) 1 % gel 07-28 00:00: 00 Yes [id number] Apply to area(s) 2 (two) times daily. [facility] insulin glargine (LANTUS U-100) injection 36 Units 2019-07 03:00: 00 Yes 36U 36 Units, Subcutaneo us, QHS, First dose (after last modificati on) on 06/29/20 at 2100, Until Discontinu ed, Routine [facility] gemfibroziL 600 mg tablet 2019-07 01:33: 08 Yes 600mg Take 600 mg by mouth 2 (two) times daily before breakfast and dinner. [facility] metoprolol tartrate 25 mg tablet 2019-07 01:33: 08 Yes 25mg Take 25 mg by mouth 2 (two) times daily. [facility] Pantoprazol e 40 mg delayed-rel ease suspension 2019-07 01:33: 08 Yes 40mg Take 40 mg by mouth daily. [facility] busPIRone 10 mg tablet 2019-07 01:33: 08 Yes 10mg Take 10 mg by mouth 2 (two) times daily. [facility] niacin 500 mg tablet 2019-07 01:33: 08 Yes 500mg Take 500 mg by mouth daily with breakfast. [facility] lipase-prot ease-amylas e (CREON) 36,000-114, 000- 180,000 unit CpDR 2019-07 01:33: 08 Yes [id number] Take 36,000 Units by mouth with all meals. Take 2 capsules by mouth with meals and 1 with each snack. [facility] losartan 25 mg tablet 2019-07 01:33: 08 Yes 25mg Take 25 mg by mouth daily. [facility] vortioxetin e 10 mg Tab 2019-07 01:33: 08 Yes 10mg Take 10 mg by mouth at bedtime. [facility] gemfibroziL 600 mg tablet 2019-07 01:33: 08 Yes 600mg Take 600 mg by mouth 2 (two) times daily before breakfast and dinner. [facility] metoprolol tartrate 25 mg tablet 2019-07 01:33: 08 Yes 25mg Take 25 mg by mouth 2 (two) times daily. [facility] Pantoprazol e 40 mg delayed-rel ease suspension 2019-07 01:33: 08 Yes 40mg Take 40 mg by mouth daily. [facility] busPIRone 10 mg tablet 2019-07 01:33: 08 Yes 10mg Take 10 mg by mouth 2 (two) times daily. [facility] niacin 500 mg tablet 2019-07 01:33: 08 Yes 500mg Take 500 mg by mouth daily with breakfast. [facility] lipase-prot ease-amylas e (CREON) 36,000-114, 000- 180,000 unit CpDR 2019-07 01:33: 08 Yes [id number] Take 36,000 Units by mouth with all meals. Take 2 capsules by mouth with meals and 1 with each snack. [facility] losartan 25 mg tablet 2019-07 01:33: 08 Yes 25mg Take 25 mg by mouth daily. [facility] vortioxetin e 10 mg Tab 2019-07 01:33: 08 Yes 10mg Take 10 mg by mouth at bedtime. [facility] gemfibroziL 600 mg tablet 2019-07 01:33: 08 Yes 600mg Take 600 mg by mouth 2 (two) times daily before breakfast and dinner. [facility] metoprolol tartrate 25 mg tablet 2019-07 01:33: 08 Yes 25mg Take 25 mg by mouth 2 (two) times daily. [facility] Pantoprazol e 40 mg delayed-rel ease suspension 2019-07 01:33: 08 Yes 40mg Take 40 mg by mouth daily. [facility] busPIRone 10 mg tablet 2019-07 01:33: 08 Yes 10mg Take 10 mg by mouth 2 (two) times daily. [facility] niacin 500 mg tablet 2019-07 01:33: 08 Yes 500mg Take 500 mg by mouth daily with breakfast. [facility] lipase-prot ease-amylas e (CREON) 36,000-114, 000- 180,000 unit CpDR 2019-07 01:33: 08 Yes [id number] Take 36,000 Units by mouth with all meals. Take 2 capsules by mouth with meals and 1 with each snack. [facility] losartan 25 mg tablet 2019-07 01:33: 08 Yes 25mg Take 25 mg by mouth daily. [facility] vortioxetin e 10 mg Tab 2019-07 01:33: 08 Yes 10mg Take 10 mg by mouth at bedtime. [facility] gemfibroziL 600 mg tablet 2019-07 01:33: 08 Yes 600mg Take 600 mg by mouth 2 (two) times daily before breakfast and dinner. [facility] metoprolol tartrate 25 mg tablet 2019-07 01:33: 08 Yes 25mg Take 25 mg by mouth 2 (two) times daily. [facility] Pantoprazol e 40 mg delayed-rel ease suspension 2019-07 01:33: 08 Yes 40mg Take 40 mg by mouth daily. [facility] busPIRone 10 mg tablet 2019-07 01:33: 08 Yes 10mg Take 10 mg by mouth 2 (two) times daily. [facility] niacin 500 mg tablet 2019-07 01:33: 08 Yes 500mg Take 500 mg by mouth daily with breakfast. [facility] lipase-prot ease-amylas e (CREON) 36,000-114, 000- 180,000 unit CpDR 2019-07 01:33: 08 Yes [id number] Take 36,000 Units by mouth with all meals. Take 2 capsules by mouth with meals and 1 with each snack. [facility] losartan 25 mg tablet 2019-07 01:33: 08 Yes 25mg Take 25 mg by mouth daily. [facility] vortioxetin e 10 mg Tab 2019-07 01:33: 08 Yes 10mg Take 10 mg by mouth at bedtime. [facility] gemfibroziL 600 mg tablet 2019-07 01:33: 08 Yes 600mg Take 600 mg by mouth 2 (two) times daily before breakfast and dinner. [facility] metoprolol tartrate 25 mg tablet 2019-07 01:33: 08 Yes 25mg Take 25 mg by mouth 2 (two) times daily. [facility] Pantoprazol e 40 mg delayed-rel ease suspension 2019-07 01:33: 08 Yes 40mg Take 40 mg by mouth daily. [facility] busPIRone 10 mg tablet 2019-07 01:33: 08 Yes 10mg Take 10 mg by mouth 2 (two) times daily. [facility] niacin 500 mg tablet 2019-07 01:33: 08 Yes 500mg Take 500 mg by mouth daily with breakfast. [facility] lipase-prot ease-amylas e (CREON) 36,000-114, 000- 180,000 unit CpDR 2019-07 01:33: 08 Yes [id number] Take 36,000 Units by mouth with all meals. Take 2 capsules by mouth with meals and 1 with each snack. [facility] losartan 25 mg tablet 2019-07 01:33: 08 Yes 25mg Take 25 mg by mouth daily. [facility] vortioxetin e 10 mg Tab 2019-07 01:33: 08 Yes 10mg Take 10 mg by mouth at bedtime. [facility] gemfibroziL 600 mg tablet 2019-07 01:33: 08 Yes 600mg Take 600 mg by mouth 2 (two) times daily before breakfast and dinner. [facility] metoprolol tartrate 25 mg tablet 2019-07 01:33: 08 Yes 25mg Take 25 mg by mouth 2 (two) times daily. [facility] Pantoprazol e 40 mg delayed-rel ease suspension 2019-07 01:33: 08 Yes 40mg Take 40 mg by mouth daily. [facility] busPIRone 10 mg tablet 2019-07 01:33: 08 Yes 10mg Take 10 mg by mouth 2 (two) times daily. [facility] niacin 500 mg tablet 2019-07 01:33: 08 Yes 500mg Take 500 mg by mouth daily with breakfast. [facility] lipase-prot ease-amylas e (CREON) 36,000-114, 000- 180,000 unit CpDR 2019-07 01:33: 08 Yes [id number] Take 36,000 Units by mouth with all meals. Take 2 capsules by mouth with meals and 1 with each snack. [facility] losartan 25 mg tablet 2019-07 01:33: 08 Yes 25mg Take 25 mg by mouth daily. [facility] vortioxetin e 10 mg Tab 2019-07 01:33: 08 Yes 10mg Take 10 mg by mouth at bedtime. [facility] insulin glargine (LANTUS U-100) injection 15 Units 2019-07 15:00: 00 06-29 14:07 :00 No 15U 15 Units, Subcutaneo us, ONCE, 1 dose, 06/29/20 at 0900, Routine [facility] morpHINE injection 2 mg 2019-07 08:15: 00 Yes 2mg 2 mg, Slow IV Push, Q6HPRN, Starting Wed06/29/20 at 0215, Until Discontinu ed, Routine, Pain (scale 7-10) [facility] atorvastati n 40 mg tablet 2019-07 00:00: 00 07-30 05:59 :00 No [id number] 40mg Take 1 tablet by mouth at bedtime for 30 days. [facility] atorvastati n 40 mg tablet 2019-07 00:00: 00 07-30 05:59 :00 No [id number] 40mg Take 1 tablet by mouth at bedtime for 30 days. [facility] atorvastati n 40 mg tablet 2019-07 00:00: 00 07-30 05:59 :00 No [id number] 40mg Take 1 tablet by mouth at bedtime for 30 days. [facility] atorvastati n 40 mg tablet 2019-07 00:00: 00 07-30 05:59 :00 No [id number] 40mg Take 1 tablet by mouth at bedtime for 30 days. [facility] haloperidol lactate (HALDOL) injection 5 mg 2019-07 22:30: 00 06-28 22:51 :00 No 5mg 5 mg, Slow IV Push, ONCE NOW, 1 dose, Wed06/28/20 at 1630, Routine [facility] LORazepam (ATIVAN) injection 1 mg 2019-07 21:00: 00 06-28 20:16 :00 No 1mg 1 mg, Slow IV Push, ONCE, 1 dose, Wed06/28/20 at 1500, Routine [facility] FLUoxetine (PROZAC) capsule 20 mg 2019-07 20:30: 00 Yes 20mg 20 mg, Oral, DAILY, First dose on Wed06/28/20 at 1430, Until Discontinu ed, Routine [facility] NaCl 0.9% (NS) IV infusion 1,000 mL 2019-07 14:30: 00 Yes 1000mL at 100 mL/hr, IV Infusion, CONTINUOUS , Starting Wed06/28/20 at 0830, Until Discontinu ed, Routine [facility] KCL (KLOR-CON M20) tablet 40 mEq 2019-07 14:30: 00 06-28 14:38 :00 No 40meq 40 mEq, Oral, ONCE, 1 dose, Wed06/28/20 at 0830, Routine [facility] Sliding Scale Insulin-Reg ular + Fsbg Testing 2019-07 13:30: 00 Yes Subcutaneo us, AC+HS, First dose on Wed06/28/20 at 0730, Until Discontinu ed, Routine [facility] glucagon (GLUCAGEN DIAGNOSTIC KIT) injection 1 mg 2019-07 13:23: 08 Yes 1mg 1 mg, Intramuscu lar, PRN, Starting Wed06/28/20 at 0723, Until Discontinu ed, ANA MARIA, Blood Glucose < or = 70 mg/dL and patient is unable to swallow or has mental changes. [facility] dextrose 50 % in water (D50W) injection 25 mL 2019-07 13:23: 08 Yes 25mL 25 mL, Slow IV Push, PRN, Starting Wed06/28/20 at 0723, Until Discontinu ed, ANA MARIA, Blood Glucose < or = 70 mg/dL and patient is unable to swallow or has mental status changes. [facility] dextrose 50 % in water (D50W) injection 50 mL 2019-07 07:00: 00 06-28 06:00 :00 No 50mL 50 mL, Slow IV Push, ONCE, 1 dose, Wed06/28/20 at 0100, ANA MARIA [facility] metoprolol tartrate (LOPRESSOR) tablet 25 mg 2019-07 02:00: 00 Yes 25mg 25 mg, Oral, BID, First dose on Wed06/27/20 at 2000, Until Discontinu ed, Routine [facility] omega 3-dha-epa-f beckie oil (FISH OIL) capsule 1,000 mg 2019-07 20:00: 00 Yes 1000mg 1,000 mg, Oral, TID, First dose on Wed06/27/20 at 1400, Until Discontinu ed, Routine
Reason for non-formul caitlyn use: PATIENT CURRENTLY TAKING NONFORMULA RY PRODUCT
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
If glucose < 250, start D5W and titrate to keep glucose 100-180
[facility] atorvastati n (LIPITOR) tablet 40 mg 2019-07 03:00: 00 Yes 40mg 40 mg, Oral, QHS, First dose on Wed06/26/20 at 2100, Until Discontinu ed, Routine [facility] gemfibroziL (LOPID) tablet 600 mg 2019-07 02:00: 00 Yes 600mg 600 mg, Oral, BID, First dose on Wed06/26/20 at 2000, Until Discontinu ed, Routine [facility] busPIRone (BUSPAR) tablet 10 mg 2019-07 02:00: 00 Yes 10mg 10 mg, Oral, BID, First dose on Wed06/26/20 at 2000, Until Discontinu ed, Routine [facility] enoxaparin (LOVENOX) injection 40 mg 2019-07 23:00: 00 Yes 40mg 40 mg, Subcutaneo us, DAILY, First dose on Wed06/26/20 at 1700, Until Discontinu ed, Routine [facility] morpHINE injection 4 mg 2019-07 16:30: 00 06-27 07:29 :00 No 4mg 4 mg, Slow IV Push, Q3HPRN, Starting Wed06/26/20 at 1030, Until Padmini 06/27/20 at 0129, Routine, Pain (scale 7-10) [facility] insulin regular in 0.9 % NaCl (MYXREDLIN) 100 unit/100 mL (1 unit/mL) RTU IV infusion 2019-07 16:16: 21 06-27 11:12 :30 No 8U/h 8 Units/hr (8 mL/hr), IV Infusion, TITRATE, Notify hospitalis t to adjust insulin rate based on Triglyceri de level, Starting Wed06/26/20 at 1016
If glucose < 250, start D5W and titrate to keep glucose 100-180
[facility] proCHLORper azine (COMPAZINE) 10 mg in NaCl 0.9% (NS) piggyback 2019-07 16:15: 52 Yes 10mg 10 mg, IV Piggyback, Q4HPRN, Starting Wed06/26/20 at 1015, Until Discontinu ed, 50 mL [facility] ketorolac (TORADOL) injection 30 mg 2019-07 16:15: 35 Yes 30mg 30 mg, Slow IV Push, Q6HPRN, Starting Wed06/26/20 at 1015, Until Discontinu ed, Routine, Pain (scale 4-6)
[facility] Restricted medication : ELLIS ALMEIDA [facility] NaCl 0.9% (NS) IV infusion 1,000 mL 2019-07 14:15: 00 06-28 05:51 :27 No 1000mL at 125 mL/hr, 1,000 mL, IV Infusion, CONTINUOUS , Starting Wed06/26/20 at 0815, Until Padmini 06/27/20 at 2351, ANA MARIA [facility] D5W 0.9% NaCl (NS) IV infusion 1,000 mL 2019-07 14:15: 00 06-28 13:21 :40 No 1000mL at 125 mL/hr, 1,000 mL, IV Infusion, CONTINUOUS , Starting Wed06/26/20 at 0815, Until Wed06/28/20 at 0721, ANA MARIA [facility] Sliding Scale Insulin - Lispro (HumaLOG) + Fsbg Testing 2019-07 12:00: 00 06-26 21:57 :55 No Subcutaneo us, Q6H, First dose on Wed06/26/20 at 0600, Until Discontinu ed, Routine [facility] proMETHazin e (PHENERGAN) 12.5 mg in NaCl 0.9% (NS) 50 mL IV piggyback 2019-07 11:21: 28 Yes 12.5mg 12.5 mg, IV Piggyback, Q4HPRN, Starting Wed06/26/20 at 0521, Until Discontinu ed, Routine, Nausea and Vomiting (N/V) [facility] morpHINE injection 4 mg 2019-07 11:21: 11 06-26 16:15 :46 No 4mg 4 mg, Slow IV Push, Q4HPRN, Starting Wed06/26/20 at 0521, Until Wed06/26/20 at 1015, Routine, Pain (scale 7-10) [facility] NaCl 0.9% (NS) IV infusion 1,000 mL 2019-07 08:00: 00 06-26 14:01 :34 No 1000mL at 125 mL/hr, IV Infusion, CONTINUOUS , Starting Wed06/26/20 at 0200, Until Wed06/26/20 at 0801, Routine [facility] dextrose 50 % in water (D50W) injection 25 mL 2019-07 07:48: 20 06-28 13:26 :23 No 25mL 25 mL, Slow IV Push, PRN, Starting Wed06/26/20 at 0148, Until Wed06/28/20 at 0726, ANA MARIA, Blood Glucose < or = 70 mg/dL and patient is unable to swallow or has mental status changes. [facility] proMETHazin e (PHENERGAN) 25 mg in NaCl 0.9% (NS) 50 mL piggyback 2019-07 07:45: 00 06-26 07:45 :00 No 25mg 25 mg, IV Piggyback, ONCE, 1 dose, Wed06/26/20 at 0145, 50 mL [facility] FENTanyl PF (SUBLIMAZE (PF)) injection 100 mcg 2019-07 07:45: 00 06-26 06:34 :00 No 100ug 100 mcg, Slow IV Push, ONCE, 1 dose, Wed06/26/20 at 0145, Routine [facility] morpHINE injection 2 mg 2019-07 07:44: 30 06-26 11:21 :45 No 2mg 2 mg, Slow IV Push, Q4HPRN, Starting Wed06/26/20 at 0144, Until Wed06/26/20 at 0521, Routine, Pain (scale 7-10) [facility] acetaminoph en (TYLENOL) tablet 650 mg 2019-07 07:44: 20 Yes 650mg 650 mg, Oral, Q6HPRN, Starting Wed06/26/20 at 0144, Until Discontinu ed, Routine, Pain (scale 1-3) [facility] proMETHazin e (PHENERGAN) 25 mg in NaCl 0.9% (NS) 50 mL piggyback 2019-07 05:15: 00 06-26 05:15 :00 No 25mg 25 mg, IV Piggyback, ONCE, 1 dose, Wed06/25/20 at 2315, 50 mL [facility] FENTanyl PF (SUBLIMAZE (PF)) injection 100 mcg 2019-07 05:00: 00 06-26 03:51 :00 No 100ug 100 mcg, Slow IV Push, ONCE, 1 dose, Wed06/25/20 at 2300, STAT [facility] iohexol (OMNIPAQUE 350 BULK-150 mL) injection 120 mL 2019-07 04:45: 00 06-26 04:45 :00 No 120mL 120 mL, Intravenou s, ONCE, 1 dose, Wed06/25/20 at 2245, Routine [facility] NaCl 0.9% (NS) IV infusion 1,000 mL 2019-07 04:00: 00 06-26 14:01 :29 No 1000mL at 999 mL/hr, Intravenou s, CONTINUOUS , Starting Wed06/25/20 at 2200, Until Wed06/26/20 at 0801, Routine [facility] ondansetron (ZOFRAN (PF)) injection 4 mg 2019-07 04:00: 00 06-26 03:10 :00 No 4mg 4 mg, Slow IV Push, ONCE, 1 dose, Wed06/25/20 at 2200, ANA MARIA [facility] FENTanyl PF (SUBLIMAZE (PF)) injection 75 mcg 2019-07 04:00: 00 06-26 03:09 :00 No 75ug 75 mcg, Slow IV Push, ONCE, 1 dose, Wed06/25/20 at 2200, Routine [facility] LOVAZA, omega-3-aci d ethyl esters, 1 gram capsule 2020-0 7-31 00:00: 00 Yes [id number] 3g Take 3 capsules by mouth daily. [facility] LOVAZA, omega-3-aci d ethyl esters, 1 gram capsule 2020-0 7-31 00:00: 00 Yes [id number] 3g Take 3 capsules by mouth daily. [facility] LOVAZA, omega-3-aci d ethyl esters, 1 gram capsule 2020-0 7-31 00:00: 00 Yes [id number] 3g Take 3 capsules by mouth daily. [facility] LOVAZA, omega-3-aci d ethyl esters, 1 gram capsule 2020-0 7-31 00:00: 00 Yes [id number] 3g Take 3 capsules by mouth daily. [facility] LOVAZA, omega-3-aci d ethyl esters, 1 gram capsule 2020-0 7-31 00:00: 00 Yes [id number] 3g Take 3 capsules by mouth daily. [facility] LOVAZA, omega-3-aci d ethyl esters, 1 gram capsule 2020-0 7-31 00:00: 00 Yes [id number] 3g Take 3 capsules by mouth daily. [facility] LOVAZA, omega-3-aci d ethyl esters, 1 gram capsule 2020-0 7-31 00:00: 00 Yes [id number] 3g Take 3 capsules by mouth daily. [facility] LOVAZA, omega-3-aci d ethyl esters, 1 gram capsule 7 00:00: 00 Yes [id number] 3g Take 3 capsules by mouth daily. [facility] ondansetron (ZOFRAN ODT) 4 mg disintegrat ing tablet 11-11 00:00: 00 Yes [id number] 4mg Take 1 tablet by mouth every 8 (eight) hours as needed for Nausea and Vomiting (N/V). [facility] ondansetron (ZOFRAN ODT) 4 mg disintegrat ing tablet 11-11 00:00: 00 Yes [id number] 4mg Take 1 tablet by mouth every 8 (eight) hours as needed for Nausea and Vomiting (N/V). [facility] ondansetron (ZOFRAN ODT) 4 mg disintegrat ing tablet 11-11 00:00: 00 Yes [id number] 4mg Take 1 tablet by mouth every 8 (eight) hours as needed for Nausea and Vomiting (N/V). [facility] ondansetron (ZOFRAN ODT) 4 mg disintegrat ing tablet 11-11 00:00: 00 Yes [id number] 4mg Take 1 tablet by mouth every 8 (eight) hours as needed for Nausea and Vomiting (N/V). [facility] ondansetron (ZOFRAN ODT) 4 mg disintegrat ing tablet 11-11 00:00: 00 Yes [id number] 4mg Take 1 tablet by mouth every 8 (eight) hours as needed for Nausea and Vomiting (N/V). [facility] ondansetron (ZOFRAN ODT) 4 mg disintegrat ing tablet 11-11 00:00: 00 Yes [id number] 4mg Take 1 tablet by mouth every 8 (eight) hours as needed for Nausea and Vomiting (N/V). [facility] ondansetron (ZOFRAN ODT) 4 mg disintegrat ing tablet 11-11 00:00: 00 Yes [id number] 4mg Take 1 tablet by mouth every 8 (eight) hours as needed for Nausea and Vomiting (N/V). [facility] ondansetron (ZOFRAN ODT) 4 mg disintegrat ing tablet 11-11 00:00: 00 Yes [id number] 4mg Take 1 tablet by mouth every 8 (eight) hours as needed for Nausea and Vomiting (N/V). [facility] ondansetron (ZOFRAN ODT) 4 mg disintegrat ing tablet 11-11 00:00: 00 Yes [id number] 4mg Take 1 tablet by mouth every 8 (eight) hours as needed for Nausea and Vomiting (N/V). [facility] ondansetron (ZOFRAN ODT) 4 mg disintegrat ing tablet 11-11 00:00: 00 Yes [id number] 4mg Take 1 tablet by mouth every 8 (eight) hours as needed for Nausea and Vomiting (N/V). [facility] Insulin [place], Disposable, (BD INSULIN PEN NEEDLE UF) 31 gauge x 5/16" Ndle 04-05 00:00: 00 Yes QID, DX:E11.9 [facility] Insulin [place], Disposable, (BD INSULIN PEN NEEDLE UF) 31 gauge x 5/16" Ndle 04-05 00:00: 00 Yes QID, DX:E11.9 [facility] Insulin [place], Disposable, (BD INSULIN PEN NEEDLE UF) 31 gauge x 5/16" Ndle 04-05 00:00: 00 Yes QID, DX:E11.9 [facility] Insulin [place], Disposable, (BD INSULIN PEN NEEDLE UF) 31 gauge x 5/16" Ndle 04-05 00:00: 00 Yes QID, DX:E11.9 [facility] Insulin [place], Disposable, (BD INSULIN PEN NEEDLE UF) 31 gauge x 5/16" Ndle 04-05 00:00: 00 Yes QID, DX:E11.9 [facility] Insulin [place], Disposable, (BD INSULIN PEN NEEDLE UF) 31 gauge x 5/16" Ndle 04-05 00:00: 00 Yes QID, DX:E11.9 [facility] atorvastati n (LIPITOR) 40 mg tablet 04-05 00:00: 00 Yes [id number] 40mg Take 1 tablet by mouth at bedtime. [facility] LOVAZA, omega-3-aci d ethyl esters, (LOVAZA) 1 gram capsule 04-05 00:00: 00 Yes [id number] 2g Take 2 capsules by mouth 2 (two) times daily before breakfast and dinner. [facility] Insulin [place], Disposable, (BD INSULIN PEN NEEDLE UF) 31 gauge x 5/16" Ndle 04-05 00:00: 00 Yes QID, DX:E11.9 [facility] atorvastati n (LIPITOR) 40 mg tablet 04-05 00:00: 00 Yes [id number] 40mg Take 1 tablet by mouth at bedtime. [facility] LOVAZA, omega-3-aci d ethyl esters, (LOVAZA) 1 gram capsule 04-05 00:00: 00 Yes [id number] 2g Take 2 capsules by mouth 2 (two) times daily before breakfast and dinner. [facility] Insulin [place], Disposable, (BD INSULIN PEN NEEDLE UF) 31 gauge x 5/16" Ndle 04-05 00:00: 00 Yes QID, DX:E11.9 [facility] Insulin [place], Disposable, (BD INSULIN PEN NEEDLE UF) 31 gauge x 5/16" Ndle 04-05 00:00: 00 Yes QID, DX:E11.9 [facility] Insulin [place], Disposable, (BD INSULIN PEN NEEDLE UF) 31 gauge x 5/16" Ndle 04-05 00:00: 00 Yes QID, DX:E11.9 [facility] atorvastati n (LIPITOR) 40 mg tablet 04-05 00:00: 00 02-08 00:00 :00 No [id number] 40mg Take 1 tablet by mouth at bedtime. [facility] LOVAZA, omega-3-aci d ethyl esters, (LOVAZA) 1 gram capsule 04-05 00:00: 00 02-08 00:00 :00 No [id number] 2g Take 2 capsules by mouth 2 (two) times daily before breakfast and dinner. [facility] insulin aspart (NOVOLOG FLEXPEN) 100 unit/mL injection 12-29 00:00: 00 Yes [id number] Inject as instructed TID AC up to 80 units daily [facility] Insulin Glargine (LANTUS SOLOSTAR) 100 unit/mL (3 mL) injection 12-29 00:00: 00 Yes [id number] 35U inject 35 Units under the skin every morning. [facility] insulin aspart (NOVOLOG FLEXPEN) 100 unit/mL injection 12-29 00:00: 00 Yes [id number] Inject as instructed TID AC up to 80 units daily [facility] Insulin Glargine (LANTUS SOLOSTAR) 100 unit/mL (3 mL) injection 12-29 00:00: 00 Yes [id number] 35U inject 35 Units under the skin every morning. [facility] insulin aspart (NOVOLOG FLEXPEN) 100 unit/mL injection 12-29 00:00: 00 Yes [id number] Inject as instructed TID AC up to 80 units daily [facility] Insulin Glargine (LANTUS SOLOSTAR) 100 unit/mL (3 mL) injection 12-29 00:00: 00 Yes [id number] 35U inject 35 Units under the skin every morning. [facility] insulin aspart (NOVOLOG FLEXPEN) 100 unit/mL injection 12-29 00:00: 00 Yes [id number] Inject as instructed TID AC up to 80 units daily [facility] Insulin Glargine (LANTUS SOLOSTAR) 100 unit/mL (3 mL) injection 12-29 00:00: 00 Yes [id number] 35U inject 35 Units under the skin every morning. [facility] insulin aspart (NOVOLOG FLEXPEN) 100 unit/mL injection 12-29 00:00: 00 Yes [id number] Inject as instructed TID AC up to 80 units daily [facility] Insulin Glargine (LANTUS SOLOSTAR) 100 unit/mL (3 mL) injection 12-29 00:00: 00 Yes [id number] 35U inject 35 Units under the skin every morning. [facility] mg/mL SolR injection 12-29 00:00: 00 Yes [id number] Use as instructed in case of severe hypoglycem ia. [facility] aspart (NOVOLOG FLEXPEN) 100 unit/mL injection 12-29 00:00: 00 Yes [id number] Inject as instructed TID AC up to 80 units daily [facility] Glargine (LANTUS SOLOSTAR) 100 unit/mL (3 mL) injection 12-29 00:00: 00 Yes [id number] 35U inject 35 Units under the skin every morning. [facility] insulin aspart (NOVOLOG FLEXPEN) 100 unit/mL injection 12-29 00:00: 00 Yes [id number] Inject as instructed TID AC up to 80 units daily [facility] Insulin Glargine (LANTUS SOLOSTAR) 100 unit/mL (3 mL) injection 12-29 00:00: 00 Yes [id number] 35U inject 35 Units under the skin every morning. [facility] glucagon 1 mg/mL SolR injection 12-29 00:00: 00 Yes [id number] Use as instructed in case of severe hypoglycem ia. [facility] insulin aspart (NOVOLOG FLEXPEN) 100 unit/mL injection 12-29 00:00: 00 Yes [id number] Inject as instructed TID AC up to 80 units daily [facility] Ins[facility] Glargine (LANTUS SOLOSTAR) 100 unit/mL (3 mL) injection 12-29 00:00: 00 Yes [id number] 35U inject 35 Units under the skin every morning. [facility] aspart (NOVOLOG FLEXPEN) 100 unit/mL injection 12-29 00:00: 00 Yes [id number] Inject as instructed TID AC up to 80 units daily [facility] Insulin Glargine (LANTUS SOLOSTAR) 100 unit/mL (3 mL) injection 12-29 00:00: 00 Yes [id number] 35U inject 35 Units under the skin every morning. [facility] insulin aspart (NOVOLOG FLEXPEN) 100 unit/mL injection 12-29 00:00: 00 Yes [id number] Inject as instructed TID AC up to 80 units daily [facility] Insulin Glargine (LANTUS SOLOSTAR) 100 unit/mL (3 mL) injection 12-29 00:00: 00 Yes [id number] 35U inject 35 Units under the skin every morning. [facility] glucagon 1 mg/mL SolR injection 12-29 00:00: 00 02-08 00:00 :00 No [id number] Use as instructed in case of severe hypoglycem ia. [facility] zolpidem (AMBIEN) 10 mg tablet 2014-07 00:00: 00 Yes TAKE ONE TABLET BY MOUTH ONCE DAILY AT BEDTIME [facility] zolpidem (AMBIEN) 10 mg tablet 2014-07 00:00: 00 Yes TAKE ONE TABLET BY MOUTH ONCE DAILY AT BEDTIME [facility] zolpidem (AMBIEN) 10 mg tablet 2014-07 00:00: 00 Yes TAKE ONE TABLET BY MOUTH ONCE DAILY AT BEDTIME [facility] zolpidem (AMBIEN) 10 mg tablet 2014-07 00:00: 00 Yes TAKE ONE TABLET BY MOUTH ONCE DAILY AT BEDTIME [facility] zolpidem (AMBIEN) 10 mg tablet 2014-07 00:00: 00 06-26 00:00 :00 No TAKE ONE TABLET BY MOUTH ONCE DAILY AT BEDTIME [facility] traMADOL (ULTRAM) 50 mg tablet 2014-07 00:00: 00 Yes 50mg Take 1 Tab by mouth every 6 (six) hours as needed for Pain (scale 7-10). [facility] traMADOL (ULTRAM) 50 mg tablet 2014-07 00:00: 00 Yes 50mg Take 1 Tab by mouth every 6 (six) hours as needed for Pain (scale 7-10). [facility] traMADOL (ULTRAM) 50 mg tablet 2014-07 00:00: 00 Yes 50mg Take 1 Tab by mouth every 6 (six) hours as needed for Pain (scale 7-10). [facility] traMADOL (ULTRAM) 50 mg tablet 2014-07 00:00: 00 Yes 50mg Take 1 Tab by mouth every 6 (six) hours as needed for Pain (scale 7-10). [facility] traMADOL (ULTRAM) 50 mg tablet 2014-07 00:00: 00 06-26 00:00 :00 No 50mg Take 1 Tab by mouth every 6 (six) hours as needed for Pain (scale 7-10). [facility] aspirin 81 mg chewable tablet 2014-07 00:00: 00 Yes 81mg Take 1 Tab by mouth daily. [facility] enalapril (VASOTEC) 5 mg tablet 2014-07 00:00: 00 Yes 5mg Take 1 Tab by mouth daily. [facility] fenofibrate micronized (LOFIBRA) 134 mg capsule 2014-07 00:00: 00 Yes 134mg Take 1 Cap by mouth daily. [facility] aspirin 81 mg chewable tablet 2014-07 00:00: 00 Yes 81mg Take 1 Tab by mouth daily. [facility] enalapril (VASOTEC) 5 mg tablet 2014-07 00:00: 00 Yes 5mg Take 1 Tab by mouth daily. [facility] fenofibrate micronized (LOFIBRA) 134 mg capsule 2014-07 00:00: 00 Yes 134mg Take 1 Cap by mouth daily. [facility] aspirin 81 mg chewable tablet 2014-07 0 00:00: 00 02-08 00:00 :00 No 81mg Take 1 Tab by mouth daily. [facility] enalapril (VASOTEC) 5 mg tablet 2014-07 00:00: 00 02-08 00:00 :00 No 5mg Take 1 Tab by mouth daily. [facility] fenofibrate micronized (LOFIBRA) 134 mg capsule 2014-07 0-10 00:00: 00 02-08 00:00 :00 No 134mg Take 1 Cap by mouth daily. [facility] blood sugar diagnostic (FREESTYLE INSULINX) strip 2011-07 00:00: 00 Yes [id number] before meals and at bedtime. [facility] blood sugar diagnostic (FREESTYLE INSULINX) strip 2011-07 00:00: 00 Yes [id number] before meals and at bedtime. [facility] blood sugar diagnostic (FREESTYLE INSULINX) strip 2011-07 00:00: 00 02-08 00:00 :00 No [id number] before meals and at bedtime. [facility] Lancets (LANCETS,UL TRA THIN) [facility] 04-04 00:00: 00 Yes [id number] [facility] Lancets (LANCETS,UL TRA THIN) [facility] 04-04 00:00: 00 Yes [id number] [facility] Lancets (LANCETS,UL TRA THIN) [facility] 04-04 00:00: 00 Yes [id number] [facility] Lancets (LANCETS,UL TRA THIN) [facility] 04-04 00:00: 00 Yes [id number] [facility] Lancets (LANCETS,UL TRA THIN) [facility] 04-04 00:00: 00 Yes [id number] [facility] Lancets (LANCETS,UL TRA THIN) [facility] 04-04 00:00: 00 Yes [id number] [facility] Lancets (LANCETS,UL TRA THIN) [facility] 04-04 00:00: 00 Yes [id number] [facility] Lancets (LANCETS,UL TRA THIN) [facility] 04-04 00:00: 00 Yes [id number] [facility] Lancets (LANCETS,UL TRA THIN) [facility] 04-04 00:00: 00 Yes [id number] [facility] Lancets (LANCETS,UL TRA THIN) [facility] 04-04 00:00: 00 Yes [id number] [facility] Vital Signs Vital Name Observation Time Observation Value Comments Vinh stephens Systolic blood pressure 2020-11-16 21:02:00 150 mm[Hg] [facility] Diastolic blood pressure 2020-11-16 21:02:00 93 mm[Hg] [facility] Heart rate 2020-11-16 21:02:00 93 /min [facility] Respiratory rate 2020-11-16 21:02:00 20 /min [facility] Oxygen saturation in Arterial blood by Pulse oximetry 2020-11-16 21:02:00 100 /min [facility] Body temperature 2020-11-16 18:21:00 36.61 Dejah [facility] Body weight 2020-11-16 18:21:00 89.359 kg [facility] BMI 2020-11-16 18:21:00 28.27 kg/m2 [facility] Systolic blood pressure 2020-07-28 21:58:00 147 mm[Hg] [facility] Diastolic blood pressure 2020-07-28 21:58:00 100 mm[Hg] [facility] Heart rate 2020-07-28 21:58:00 103 /min [facility] Body temperature 2020-07-28 21:58:00 36.28 Dejah [facility] Respiratory rate 2020-07-28 21:58:00 20 /min [facility] Body weight 2020-07-28 21:58:00 86.183 kg [facility] BMI 2020-07-28 21:58:00 27.26 kg/m2 [facility] Oxygen saturation in Arterial blood by Pulse oximetry 2020-07-28 21:58:00 100 /min [facility] Systolic blood pressure 2020-06-29 22:21:00 133 mm[Hg] [facility] Diastolic blood pressure 2020-06-29 22:21:00 81 mm[Hg] [facility] Heart rate 2020-06-29 22:21:00 89 /min [facility] Body temperature 2020-06-29 22:21:00 36.83 Dejah [facility] Respiratory rate 2020-06-29 22:21:00 18 /min [facility] Oxygen saturation in Arterial blood by Pulse oximetry 2020-06-29 22:21:00 99 /min [facility] Body weight 2020-06-27 10:03:00 87.998 kg [facility] BMI 2020-06-27 10:03:00 27.84 kg/m2 [facility] Body height 2020-06-26 07:45:00 177.8 cm [facility] Systolic blood pressure 2020-06-29 22:21:00 133 mm[Hg] [facility] Diastolic blood pressure 2020-06-29 22:21:00 81 mm[Hg] [facility] Heart rate 2020-06-29 22:21:00 89 /[facility] Body temperature 2020-06-29 22:21:00 36.83 Dejah [facility] Respiratory rate 2020-06-29 22:21:00 18 /min [facility] Oxygen saturation in Arterial blood by Pulse oximetry 2020-06-29 22:21:00 99 /min [facility] Body weight 2020-06-27 10:03:00 87.998 kg [facility] BMI 2020-06-27 10:03:00 27.84 kg/m2 [facility] Body height 2020-06-26 07:45:00 177.8 cm [facility] Procedures Procedure Date / Time Performed Performing Clinician Source CT ABDOMEN PELVIS W CONTRAST 2020-11-16 19:40:14 Nader Mendoza [facility] LIPASE 2020-11-16 18:28:00 Nader Mendoza [facility] MAGNESIUM 2020-11-16 18:28:00 [facility] COMP. METABOLIC PANEL (91721) 2020-11-16 18:28:00 Nader Mendoza [facility] CBC WITH DIFF 2020-11-16 18:28:00 Nader Mendoza [facility] URINALYSIS 2020-11-16 18:28:00 Nader Mendoza [facility] POCT GLUCOSE (AUTOMATED) 2020-11-16 18:25:00 Nader Mendoza [facility] CONSENT/REFUSAL FOR DIAGNOSIS AND TREATMENT 2020-11-16 18:14:39 Doctor Unassigned, [place] [facility] CT CERVICAL SPINE WO CONTRAST 2020-07-28 22:41:56 Lillian Barr [facility] CT HEAD WO CONTRAST 2020-07-28 22:41:56 Lillian Barr [facility] NOTICE OF PRIVACY PRACTICES 2020-07-28 21:50:31 Doctor Unassigned, [place] [facility] CONSENT/REFUSAL FOR DIAGNOSIS AND TREATMENT 2020-07-28 21:50:20 Doctor Unassigned, [place] [facility] POCT GLUCOSE (AUTOMATED) 2020-06-29 23:35[facility]00 [facility] 2020-06-29 [facility] 2020-06-29 13:54:00 [facility]IG[facility]ES 2020-06-29 11:20:00 Ellis Almeida [facility] BASIC METABOLIC PANEL (NA, K, CL, CO2, GLUCOSE, BUN, CREATININE, CA) 2020-06-29 11:20:00 [facility] WITH [facility]FF 2020-06-29 11:20:00 Momo [facility] ADC / LCC - DRUG SCREEN TRIAGE 2020-06-29 03:10:00 Favio Moscoso [facility] POCT GLUCOSE (AUTOMATED) 2020-06-28 22:46:00 Rebeca [facility] POCT GLUCOSE (AUTOMATED) 2020-06-28 18:53:00 [facility]SE ([facility]) 2020-06-28 18:01:00 Rebeca [facility] POCT GLUCOSE (AUTOMATED) 2020-06-28 13:27:00 [facility] ([facility]ATED) 2020-06-28 11:48:00 Rebeca [facility] TRIGLYCERIDES 2020-06-28 10:27:00 Ellis Almeida [facility] LIPASE 2020-06-28 10:27:00 [facility] 2020-06-28 10:27:00 Favio Moscoso [facility] BASIC METABOLIC PANEL (NA, K, CL, CO2, GLUCOSE, BUN, CREATININE, CA) 2020-06-28 10:27:00 Rebeca [facility] ETHANOL 2020-06-28 10:27:00 Favio Moscoso [facility] CBC WITH DIFF 2020-06-28 10:27:00 Rebeca [facility] POCT GLUCOSE (AUTOMATED) 2020-06-28 10:10:00 [facility]SE ([facility]OMATED) 2020-06-28 07:00:00 [facility]SE ([facility]OMATED) 2020-06-28 05:48:00 [facility]UCOSE ([facility]OMATED) 2020-06-28 04:45:00 [facility]UCOSE ([facility]OMATED) 2020-06-28 03:40:00 [facility]UCOSE (AUTOMATED) 2020-06-28 02:43:00 [facility]SE ([facility]OMATED) 2020-06-28 01:39:00 [facility]UCOSE ([facility]OMATED) 2020-06-27 23:10:00 [facility] TRIGLY[facility]ERIDES 2020-06-27 23:08:00 Ellis Almeida [facility] POCT GLUCOSE (AUTOMATED) 2020-06-27 21:29:00 [facility]SE ([facility]OMATED) 2020-06-27 19:54:00 [facility] GLUCOSE (AUTOMATED) 2020-06-27 18:59:00 [facility] GLUCOSE (AUTOMATED) 2020-06-27 17:42:00 Rebeca [facility] POCT GLUCOSE (AUTOMATED) 2020-06-27 16:50:00 Rebeca [facility] POCT GLUCOSE (AUTOMATED) 2020-06-27 14:43:00 Rebeca [facility] POCT GLUCOSE (AUTOMATED) 2020-06-27 13:19:00 Rebeca [facility] POCT GLUCOSE (AUTOMATED) 2020-06-27 12:18:00 Rebeca [facility] TRIGLYCERIDES 2020-06-27 10:20:00 Ellis Almeida [facility] LIPASE 2020-06-27 10:20:[address] [facility] BASIC METABOLIC PANEL (NA, K, CL, CO2, GLUCOSE, BUN, CREATININE, CA) 2020-06-27 10:20:00 Rebeca [facility] CBC WITH DIFF 2020-06-27 10:20:00 Rebeca [facility] POCT GLUCOSE (AUTOMATED) 2020-06-27 10:06:00 Rebeca [facility] POCT GLUCOSE (AUTOMATED) 2020-06-27 09:06:00 Rebeca [facility] POCT GLUCOSE (AUTOMATED) 2020-06-27 08:07:00 [facility]SE ([facility]ATED) 2020-06-27 07:09:00 Rebeca [facility] POCT GLUCOSE (AUTOMATED) 2020-06-27 06:02:00 Rebeca [facility] POCT GLUCOSE (AUTOMATED) 2020-06-27 04:52:00 Rebeca [facility] POCT GLUCOSE (AUTOMATED) 2020-06-27 04:02:00 Rebeca [facility] POCT GLUCOSE (AUTOMATED) 2020-06-27 03:28:00 Edtere [facility] POCT GLUCOSE (AUTOMATED) 2020-06-27 03:02:00 Edtere [facility] POCT GLUCOSE (AUTOMATED) 2020-06-27 02:01:00 Rebeca [facility] POCT GLUCOSE (AUTOMATED) 2020-06-27 01:15:00 Rebeca [facility] POCT GLUCOSE (AUTOMATED) 2020-06-27 00:07:00 Rebeca [facility] POCT GLUCOSE (AUTOMATED) 2020-06-26 22:46:00 Rebeca [facility] TRIGLYCERIDES 2020-06-26 22:07:00 Ellis Almeida [facility] POCT GLUCOSE (AUTOMATED) 2020-06-26 21:45:00 Rebeca [facility] POCT GLUCOSE (AUTOMATED) 2020-06-26 20:38:00 Rebeca [facility] POCT GLUCOSE (AUTOMATED) 2020-06-26 18:13:00 Rebeca [facility] POCT GLUCOSE (AUTOMATED) 2020-06-26 17:03:00 Rebeca [facility] LIPASE 2020-06-26 11:15:00 Rebeca [facility] LIPID PANEL ([id number])(TOTAL CHOLESTEROL, TRIGLYCERIDES, HDL) 2020-06-26 11:15:00 Rebeca [facility] GLYCOSYLATED HEMOGLOBIN (A1C) 2020-06-26 11:15:00 Rebeca [facility] LOW-DENSITY LIPOPROTEIN, DIRECT 2020-06-26 11:15:00 Rebeca [facility] POCT GLUCOSE (AUTOMATED) 2020-06-26 11:12:00 Rebeca [facility] CT ABDOMEN PELVIS W CONTRAST 2020-06-26 04:40:39 Kofi Beebe [facility] ASSIGNMENT OF BENEFITS 2020-06-26 03:16:02 Docto r Unassigned, [place] [facility] COVID-19 (ID NOW RAPID TESTING) 2020-06-26 03:12:00 Kofi Beebe [facility] LAB ONLY COVID INTERPRETATION 2020-06-26 03:12:00 Kofi Beebe [facility] LIPASE 2020-06-26 02:54:00 Kofi Beebe [facility] COMP. METABOLIC PANEL ([id number]) 2020-06-26 02:54:00 Kofi Beebe [facility] CBC WITH DIFF 2020-06-26 02:54:00 Kofi Beebe [facility] POCT GLUCOSE (AUTOMATED) 2020-06-26 02:44:00 Aysha Beebe [facility] CONSENT/REFUSAL FOR DIAGNOSIS AND TREATMENT 2020-06-26 02:29:58 Doctor Unassigned, [place] [facility] EXTERNAL PROVIDER RECORDS 2020-02-09 05:01:00 Do ctor Unassigned, [place] [facility] Encounters Start Date/Time End Date/Time Encounter Type Admission Type Attending [facility] Care Department Encounter ID Source 2021-05-11 17:56:10 Emergency [facility] [id number] [facility] 2021-05-10 17:48:01 Emergency [facility] [id number] [facility] 2021-05-10 11:31:12 Emergency [facility] [id number] [facility] 2021-10-03 16:42:00 2021-10-03 16:42:00 [facility] [id number] [facility] 2021-09-29 14:17:00 2021-09-29 14:17:00 [facility] [id number] [facility] 2021-09-25 13:47:00 2021-09-25 13:47:00 [facility] [id number] [facility] 2020-11-16 13:16:00 2020-11-16 16:24:00 Emergency [facility] [id number] [facility] 2020-11-16 00:00:00 2020-11-16 00:00:00 Orders Only Doctor Unassigned, [place] [facility] [id number] [facility] 2020-07-28 16:00:00 2020-07-28 17:40:00 Emergency [facility] [id number] [facility] 2020-07-28 00:00:00 2020-07-28 00:00:00 Orders Only Doctor Unassigned, [place] [facility] 1.2.840.114 350.1.13.10 4.2.7.2.686 [id number] 009 [id number] [facility] 2020-07-01 00:00:00 2020-07-01 00:00:00 Transition of Care Annita Correaedin [place] 1.2.840.114 350.1.13.10 4.2.7.2.686 [id number] [facility] 2020-07-01 00:00:00 2020-07-01 00:00:00 Transition of Care Annita Correa 1.2.840.114 350.1.13.10 4.2.7.2.686 [id number] 2020-06-25 20:44:00 2020-06-29 19:29:00 [facility] 1.2.840.114 350.1.13.10 4.2.7.2.686 [id number] [facility] 2020-06-25 20:44:00 2020-06-29 19:29:00 Hospital En[facility] 1.2.840.114 350.1.13.10 4.2.7.2.686 [id number] [id number] 2020-06-25 00:00:00 2020-06-25 00:00:00 Orders Only Doctor Unassigned, [place] [facility] 1.2.840.114 350.1.13.10 4.2.7.2.686 [id number] 009 [id number] [facility] 2020-06-25 00:00:00 2020-06-25 00:00:00 Orders Only Doctor Unassigned, [place] [facility] 1.2.840.114 350.1.13.10 4.2.7.2.686 [id number] 009 [id number] 2020-02-09 15:04:39 2020-02-09 15:53:06 Telemedici ne Visit GuanCole Morales [facility] 1.2.840.114 350.1.13.10 4.2.7.2.686 [id number] [facility] 2020-02-09 15:04:39 2020-02-09 15:53:06 Telemedici ne Visit GuanCole Morales [facility] 1.2.840.114 350.1.13.10 4.2.7.2.686 [id number] 2020-02-09 15:00:00 2020-02-09 15:00:00 Outpatient R COLE GUAN [facility] [id number] [facility] 2020-02-09 00:00:00 2020-02-09 00:00:00 Orders Only Doctor Unassigned, [place] [facility] 1.2.840.114 350.1.13.10 4.2.7.2.686 [id number] 009 [id number] [facility] 2020-02-09 00:00:00 2020-02-09 00:00:00 Orders Only Doctor Unassigned, [place] [facility] 1.2.840.114 350.1.13.10 4.2.7.2.686 [id number] 009 [id number] 2020-02-07 00:00:00 2020-02-07 00:00:00 Telephone Cole Guan [facility] 1.2.840.114 350.1.13.10 4.2.7.2.686 [id number] [facility] 2020-02-07 00:00:00 2020-02-07 00:00:00 Telephone Cole Guan [facility] 1.2.840.114 350.1.13.10 4.2.7.2.686 [id number] Results Test Description Test Time Test Comments Results Result Co mments Source Glucose Nrqajpwpyzp5491-43-00 17:29:00* Test Item Value Reference Range Interpretation Comme nts Glucose Fingerstick (test code = WGLUC) 296 mg/dL 70-115 STOCK HANGER VIE T-MELVI NUNES T Glucose Uwhnhhwgkpf6208-09-44 14:49:00* Test Item Value Reference Range Interpretation Comme nts Glucose Fingerstick (test code = WGLUC) 334 mg/dL 70-115 STOCK HANGER And rew SvetliAnkita RN or OR MICRO Vvzacuea3178-65-17 16:15:00* Test Item Value Reference Range Interpretation Comme nts Gram Stain (test code = GS) 09/26/21 Gram Stain (test code = GS1.1) Few Gram positive cocci in pairs OR NESTOR Spec Culture (test code = ORMICCULT) Culture in progress Anaerobic Culture (test code = ANC) 09/28/21 No anaerobes isolated to date, continuing Anaerobic Culture (test code = ANC3.1) 10/01/21 No anaerobes isolated. OR NESTOR Spec Culture (test code = ORMICCULT2.1) agents with the possible exception of Ceftaroline. LEFT HANDGlucose Drbfdjstmrx8745-78-06 15:52:00* Test Item Value Reference Range Interpretation Comme nts Glucose Fingerstick (test code = WGLUC) 199 mg/dL 70-115 STOCK HANGER And rew Svetlik SEZXOBDBDP4464-97-98 19:20:17* Test Item Value Reference Range Interpretation Comme nts APPEARANCE (test code = 0489966070) Clear Clear COLOR (test code = 4247715224) Mindy Yellow A PH (test code = 2277604526) 4.8-8.0 SP GRAVITY (test code = 2745804325) 1.003-1.030 GLU U QUAL (test code = 9419933507) 150 mg/dL Normal A BLOOD (test code = 3385606225) Negative Negative KETONES (test code = 0947777103) Negative Negative PROTEIN (test code = 2887-8) Negative Negative UROBILIN (test code = 1807213026) Normal Normal BILIRUBIN (test code = 9918333937) Negative Negative NITRITE (test code = 1457438398) Negative Negative LEUK BURTON (test code = 2249954241) Negative Negative RBC/HPF (test code = 2899339645) See_Comment [Automated Stata ge] The system which generated this result transmitted reference range: 0 - 3 HPF. The reference range was not used to interpret this result as normal/abnormal. WBC/HPF (test code = 3645570546) See_Comment [Automated Stata ge] The system which generated this result transmitted reference range: 0 - 5 HPF. The reference range was not used to interpret this result as normal/abnormal. BACTERIA (test code = 5528783713) Negative Negative MUCOUS (test code = 1238368919) Moderate Negative LPF A Lab Interpretation (test code = 67102-3) [facility] 19:18:04* Test Item Value Reference Range Interpretation Comme nts MAGNESIUM (test code = 2563419299) 1.9 mg/dL 1.7-2.4 Lab Interpretation (test cod e = 29576-6) Normal [facility]OL[facility] PAN[facility] (26697)2020-11-16 19:17:44* Test Item Value Reference Range Interpretation Comme nts NA (test code = 2203802031) 138 mmol/L 135-145 K (test code = 1024135060) 3.9 mmol/L 3.5-5.0 CL (test code = 4158790020) 100 mmol/L 98-108 CO2 TOTAL (test code = 1727798627) 28 mmol/L 23-31 AGAP (test code = 1173298321) 2-16 BUN (test code = 9188041713) 15 mg/dL 7-23 GLUCOSE (test code = 2794609703) 215 mg/dL 70-110 H CREATININE (test code = 4940369110) 0.88 mg/dL 0.60-1.25 TOTAL BILI (test code = 1837699466) 1.6 mg/dL 0.1-1.1 H CALCIUM (test code = 3338209034) 9.6 mg/dL 8.6-10.6 T PROTEIN (test code = 6481602112) 7.4 g/dL 6.3-8.2 ALBUMIN (test code = 6258442813) 4.6 g/dL 3.5-5.0 ALK PHOS (test code = 6847975933) 90 U/L 34-122 ALTv (test code = 1742-6) 15 U/L 5-50 AST(SGOT) (test code = 5761724300) 17 U/L 13-40 eGFR (test code = 3411459602) mL/min/1.73m2 OSKAR (test code = OSKAR) Association of [...] or abnormalities in imaging tests). Lab Interpretation (test code = 33250-7) [facility] 19:17:23* Test Item Value Reference Range Interpretation Comme nts LIPASE (test code = 2368056916) 87 U/L 0-220 Lab Interpretation (test cod e = 08504-2) Normal [facility] WITH YGRI7352-07-96 19:06:43* Test Item Value Reference Range Interpretation Comme nts WBC (test code = 6690-2) See_Comment [Automated messa ge] The system which generated this result transmitted reference range: 4.20 - 10.70 10*3/?L. The reference range was not used to interpret this result as normal/abnormal. RBC (test code = 789-8) See_Comment H [Automated messa ge] The system which generated this result transmitted reference range: 4.26 - 5.52 10*6/?L. The reference range was not used to interpret this result as normal/abnormal. HGB (test code = 718-7) 15.1 g/dL 12.2-16.4 HCT (test code = 4544-3) 44.9 % 38.4-49.3 MCV (test code = 787-2) 78.4 fL 81.7-95.6 L MCH (test code = 785-6) 26.4 pg 26.1-32.7 MCHC (test code = 786-4) 33.6 g/dL 31.2-35.0 RDW-SD (test code = 84452-4) 39.0 fL 38.5-51.6 RDW-CV (test code = 788-0) 13.9 % 12.1-15.4 PLT (test code = 777-3) See_Comment [Automated messa ge] The system which generated this result transmitted reference range: 150 - 328 10*3/?L. The reference range was not used to interpret this result as normal/abnormal. MPV (test code = 48762-6) 9.4 fL 9.8-13.0 L NRBC/100 WBC (test code = 4314407124) See_Comment [Automated me ssage] The system which generated this result transmitted reference range: 0.0 - 10.0 /100 WBCs. The reference range was not used to interpret this result as normal/abnormal. NRBC x10^3 (test code = 9555396783) <0.01 See_Comment [Automated messa ge] The system which generated this result transmitted reference range: 10*3/?L. The reference range was not used to interpret this result as normal/abnormal. GRAN MAT (NEUT) % (test code = 770-8) 79.9 % IMM GRAN % (test code = 6927326468) 0.60 % LYMPH % (test code = 736-9) 14.4 % MONO % (test code = 5905-5) 3.9 % EOS % (test code = 713-8) 0.6 % BASO % (test code = 706-2) 0.6 % GRAN MAT x10^3(ANC) (test code = 2449350512) 7.25 10*3/uL 1.99-6.95 H IMM GRAN x10^3 (test code = 8065119830) 0.05 10*3/uL 0.00-0.06 LYMPH x10^3 (test code = 731-0) 1.30 10*3/uL 1.09-3.23 MONO x10^3 (test code = 742-7) 0.35 10*3/uL 0.36-1.02 L EOS x10^3 (test code = 711-2) 0.05 10*3/uL 0.06-0.53 L BASO x10^3 (test code = 704-7) 0.05 10*3/uL 0.01-0.09 Lab Interpretation (test code = 98496-7) Abnormal [facility] GLUCOSE (AUTOMATED)2020-11-16 18:27:21* Test Item Value Reference Range Interpretation Comme nts POCT GLU (test code = 9228635368) 218 mg/dL 70-110 H Lab Interpretation (test cod e = 48652-3) Abnormal [facility] GLUCOSE (AUTOMATED)2020-06-29 23:37:00* Test Item Value Reference Range Interpretation Comme nts POCT GLU (test code = 7675051736) 217 mg/dL 70-110 H Lab Interpretation (test cod e = 10403-7) Abnormal [facility] GLUCOSE (AUTOMATED)2020-06-29 18:58:00* Test Item Value Reference Range Interpretation Comme nts POCT GLU (test code = 1481825743) 214 mg/dL 70-110 H Lab Interpretation (test cod e = 54863-1) Abnormal [facility] GLUCOSE (AUTOMATED)2020-06-29 14:15:00* Test Item Value Reference Range Interpretation Comme nts POCT GLU (test code = 2776906153) 182 mg/dL 70-110 H Lab Interpretation (test cod e = 69771-3) Abnormal [facility] with Iptkeceiyylj1201-89-29 13:44:00* Test Item Value Reference Range Interpretation Comme nts WBC (test code = 6690-2) See_Comment L [Automated messa ge] The system which generated this result transmitted reference range: 4.20 - 10.70 10*3/?L. The reference range was not used to interpret this result as normal/abnormal. RBC (test code = 789-8) See_Comment [Automated messa ge] The system which generated this result transmitted reference range: 4.26 - 5.52 10*6/?L. The reference range was not used to interpret this result as normal/abnormal. HGB (test code = 718-7) 14.0 g/dL 12.2-16.4 HCT (test code = 4544-3) 40.3 % 38.4-49.3 MCV (test code = 787-2) 82.8 fL 81.7-95.6 MCH (test code = 785-6) 28.7 pg 26.1-32.7 MCHC (test code = 786-4) 34.7 g/dL 31.2-35 RDW-SD (test code = 56230-6) 37.0 fL 38.5-51.6 L RDW-CV (test code = 788-0) 12.2 % 12.1-15.4 PLT (test code = 777-3) See_Comment L [Automated messa ge] The system which generated this result transmitted reference range: 150 - 328 10*3/?L. The reference range was not used to interpret this result as normal/abnormal. MPV (test code = 20633-3) 9.9 fL 9.8-13 NRBC/100 WBC (test code = 4416753135) See_Comment [Automated me ssage] The system which generated this result transmitted reference range: 0.0 - 10.0 /100 WBCs. The reference range was not used to interpret this result as normal/abnormal. NRBC x10^3 (test code = 9414421265) <0.01 See_Comment [Automated messa ge] The system which generated this result transmitted reference range: 10*3/?L. The reference range was not used to interpret this result as normal/abnormal. GRAN MAT (NEUT) % (test code = 770-8) 61.0 % IMM GRAN % (test code = 0846494910) 0.30 % LYMPH % (test code = 736-9) 29.5 % MONO % (test code = 5905-5) 5.9 % EOS % (test code = 713-8) 2.4 % BASO % (test code = 706-2) 0.9 % GRAN MAT x10^3(ANC) (test code = 9027244710) 2.07 10*3/uL 1.99-6.95 IMM GRAN x10^3 (test code = 2739497180) <0.03 0-0.06 LYMPH x10^3 (test code = 731-0) 1.00 10*3/uL 1.09-3.23 L MONO x10^3 (test code = 742-7) 0.20 10*3/uL 0.36-1.02 L EOS x10^3 (test code = 711-2) 0.08 10*3/uL 0.06-0.53 BASO x10^3 (test code = 704-7) 0.03 10*3/uL 0.01-0.09 Lab Interpretation (test code = 16506-8) [facility]normal [facility]2020-12-19 13:22:00* Test Item Value Reference Range Interpretation Comme nts TRIG (test code = 1042117901) 468 mg/dL 30-170 H Lab Interpretation (test cod e = 22599-4) Abnormal [facility] (NA, K, CL, CO2, GLUCOSE, BUN, CREATININE, CA)2020-06-29 13:12:00* Test Item Value Reference Range Interpretation Comme nts NA (test code = 6241947273) 139 mmol/L 135-145 K (test code = 5059501071) 3.6 mmol/L 3.5-5 CL (test code = 0130482927) 104 mmol/L 98-108 CO2 TOTAL (test code = 9457647578) 25 mmol/L 23-31 AGAP (test code = 8955135093) 2-16 BUN (test code = 1127739367) 4 mg/dL 7-23 L GLUCOSE (test code = 0820210237) 163 mg/dL 70-110 H CREATININE (test code = 6319284776) 0.74 mg/dL 0.6-1.25 CALCIUM (test code = 7534079039) 9.4 mg/dL 8.6-10.6 eGFR Calculation (Non-) (test code = 7105499280) mL/min/1.73m2 eGFR Calculation () (test code = 0320029691) mL/min/1.73m2 OSKAR (test code = OSKAR) Association of [...] or abnormalities in imaging tests). Lab Interpretation (test code = 61864-6) Abnormal [facility] - DRUG SCREEN WQTTWB3536-42-24 03:44:00* Test Item Value Reference Range Interpretation Comme nts BENZO U (test code = 6202852012) Presumptive Positive Negative A AUDREY U (test code = 5434639851) Negative Negative AMPHET (test code = 8658931674) Negative Negative THC (test code = 6878436351) Presumptive Positive Negative A Confirmation of Presumptive Positive THC result requires physician order. METHADONE (test code = 9259801069) Negative Negative Meth U (test code = 2804577914) Negative Negative OPIATES (test code = 1965300194) Presumptive Positive Negative A Cocaine Metabolite (test code = 5767954538) Negative Negative PROPOXY (test code = 9368903829) Negative Negative Tric U (test code = 4710797923) Presumptive Positive Negative A Confirmation of Presumptive Positive TCA result requires physician order and this will be sent to reference lab. PCP (test code = 6048819159) Negative Negative OXYCOD (test code = 5099242409) Negative Negative OSKAR (test code = OSKAR) Urine Drug Cutoff Ranges Benzodiazepines: ? ? 150 ng/mLBarbiturates : [...] (e.g., employment testing, legal testing). Lab Interpretation (test code = 71006-9) [facility]2020-[facility] 01:23:00* Test Item Value Reference Range Interpretation Comme nts ALCOHOL (test code = 3461912614) <10 mg/dL OSKAR (test code = OSKAR) <10 Smieygvj12-428 Toxic>100 Depression of SHELL MAKER LOCKSTITCH>400 Fatalities Reported [facility] GLUCOSE (AUTOMATED)2020-06-28 23:30:00* Test Item Value Reference Range Interpretation Comme nts POCT GLU (test code = 4507724439) 234 mg/dL 70-110 H Lab Interpretation (test cod e = 34057-1) Abnormal [facility] GLUCOSE (AUTOMATED)2020-06-28 19:09:00* Test Item Value Reference Range Interpretation Comme nts POCT GLU (test code = 6642611853) 195 mg/dL 70-110 H Lab Interpretation (test cod e = 71893-0) Abnormal [facility] GLUCOSE (AUTOMATED)2020-06-28 18:16:00* Test Item Value Reference Range Interpretation Comme nts POCT GLU (test code = 6755832530) 113 mg/dL 70-110 H Lab Interpretation (test cod e = 70543-9) [facility]normal [facility]2020-12-18 15:54:00* Test Item Value Reference Range Interpretation Comme nts MAGNESIUM (test code = 0927491924) 1.7 mg/dL 1.7-2.4 Lab Interpretation (test cod e = 53583-5) Normal [facility] GLUCOSE (AUTOMATED)2020-06-28 14:51:00* Test Item Value Reference Range Interpretation Comme nts POCT GLU (test code = 5995991496) 94 mg/dL 70-110 Lab Interpretation (test cod e = 63877-8) Normal [facility] with Aiaeyufltdvr2207-30-53 14:08:00* Test Item Value Reference Range Interpretation Comme nts WBC (test code = 6690-2) See_Comment L [Automated messa ge] The system which generated this result transmitted reference range: 4.20 - 10.70 10*3/?L. The reference range was not used to interpret this result as normal/abnormal. RBC (test code = 789-8) See_Comment [Automated messa ge] The system which generated this result transmitted reference range: 4.26 - 5.52 10*6/?L. The reference range was not used to interpret this result as normal/abnormal. HGB (test code = 718-7) 13.6 g/dL 12.2-16.4 HCT (test code = 4544-3) 39.2 % 38.4-49.3 MCV (test code = 787-2) 82.9 fL 81.7-95.6 MCH (test code = 785-6) 28.8 pg 26.1-32.7 MCHC (test code = 786-4) 34.7 g/dL 31.2-35 RDW-SD (test code = 99667-6) 36.2 fL 38.5-51.6 L RDW-CV (test code = 788-0) 11.9 % 12.1-15.4 L PLT (test code = 777-3) See_Comment L [Automated messa ge] The system which generated this result transmitted reference range: 150 - 328 10*3/?L. The reference range was not used to interpret this result as normal/abnormal. MPV (test code = 42916-2) 10.0 fL 9.8-13 NRBC/100 WBC (test code = 7230347190) See_Comment [Automated CloudTags ssage] The system which generated this result transmitted reference range: 0.0 - 10.0 /100 WBCs. The reference range was not used to interpret this result as normal/abnormal. NRBC x10^3 (test code = 5302346700) <0.01 See_Comment [Automated messa ge] The system which generated this result transmitted reference range: 10*3/?L. The reference range was not used to interpret this result as normal/abnormal. GRAN MAT (NEUT) % (test code = 770-8) 59.7 % IMM GRAN % (test code = 5556115572) 0.30 % LYMPH % (test code = 736-9) 33.3 % MONO % (test code = 5905-5) 4.8 % EOS % (test code = 713-8) 1.3 % BASO % (test code = 706-2) 0.6 % GRAN MAT x10^3(ANC) (test code = 9085787515) 1.86 10*3/uL 1.99-6.95 L IMM GRAN x10^3 (test code = 7951404776) <0.03 0-0.06 LYMPH x10^3 (test code = 731-0) 1.04 10*3/uL 1.09-3.23 L MONO x10^3 (test code = 742-7) 0.15 10*3/uL 0.36-1.02 L EOS x10^3 (test code = 711-2) 0.04 10*3/uL 0.06-0.53 L BASO x10^3 (test code = 704-7) <0.03 0.01-0.09 Lab Interpretation (test code = 72410-4) Abnormal [facility] Metabolic Panel (NA, K, CL, CO2, GLUCOSE, BUN, CREATININE, CA)2020-06-28 13:02:00* Test Item Value Reference Range Interpretation Comme nts NA (test code = 0088299414) 140 mmol/L 135-145 K (test code = 1747147884) 3.0 mmol/L 3.5-5 L CL (test code = 1380790974) 106 mmol/L 98-108 CO2 TOTAL (test code = 4938414000) 25 mmol/L 23-31 AGAP (test code = 9173262072) 2-16 BUN (test code = 3225428332) <2 7-23 L GLUCOSE (test code = 6174322605) 107 mg/dL 70-110 CREATININE (test code = 9117100743) 0.59 mg/dL 0.6-1.25 L CALCIUM (test code = 1602407013) 8.9 mg/dL 8.6-10.6 eGFR Calculation (Non-) (test code = 8784028584) mL/min/1.73m2 eGFR Calculation () (test code = 9617633712) mL/min/1.73m2 OSKAR (test code = OSKAR) Association of [...] or abnormalities in imaging tests). Lab Interpretation (test code = 64802-6) [facility]2020-12-18 13:02:00* Test Item Value Reference Range Interpretation Comme nts TRIG (test code = 7415373162) 519 mg/dL 30-170 H Lab Interpretation (test cod e = 04337-7) [facility]2020-12-18 12:45:00* Test Item Value Reference Range Interpretation Comme nts LIPASE (test code = 0856974502) 27 U/L 0-220 Lab Interpretation (test cod e = 67454-5) Normal [facility]2020-06-28 11:51:00* Test Item Value Reference Range Interpretation Comme nts POCT GLU (test code = 5628717339) 111 mg/dL 70-110 H Lab Interpretation (test cod e = 70574-9) [facility] COVID ZAHGYIJJWCBMLQ5122-24-19 11:31:00COVID DMT InterpretationInterpretation/Recommendations: Molecular NAAT Tests for Active Infection with the SARS-CoV-2 Virus: This result indicates that the patient has tested negative on one occasionfor the SARS-CoV-2 virus that causes COVID-19 illness. [...] (PCR, Rapid ID Now, etc.) should be performed,at which time the SARS-CoV-2 virus - if present - may have reached a detectable viral load (usuallypeaking by the end of the first week of symptoms). Tests for IgM and/or IgG Antibodies to SARS-CoV-2 Virus: Testing for IgM and IgG antibodies 1-3 weeks after illness onset will indicate whether the p atient has produced antibodies to the virus. At this time, it is not known if the production of antibodies - specifically IgG antibodies - indicates whether the patient is immune to future infectionswith the SARS-CoV-2 virus. ? ? Interpretation Result Comments:These interpretation comments are based upon all COVID-19 testingthe patient has had at [facility], including molecular NAAT testing (more commonly known as PCR testing and Rapid ID Now testing) and antibody testing. It does not take into account any testing that a patient has had outside of the [facility] medical record. [facility] LABORATORY SERVICESCOVID ZxgveosMCZW-PkP-2 Rapid ID NOW (no units) ? ? Date ? Value ? 06/25/2020 ? Not Detected ? [facility] SERVICESUnP[facility] CenterPO[facility] ([facility])2020-06-28 10:16:00* Test Item Value Reference Range Interpretation Comme nts POCT GLU (test code = 5954745022) 109 mg/dL 70-110 Lab Interpretation (test cod e = 56848-8) Normal [facility] GLUCOSE (AUTOMATED)2020-06-28 09:08:00* Test Item Value Reference Range Interpretation Comme nts POCT GLU (test code = 0270405711) 152 mg/dL 70-110 H Lab Interpretation (test cod e = 03395-4) Abnormal [facility] GLUCOSE (AUTOMATED)2020-06-28 06:20:00* Test Item Value Reference Range Interpretation Comme nts POCT GLU (test code = 4690515383) 84 mg/dL 70-110 Lab Interpretation (test cod e = 66045-3) Normal [facility] GLUCOSE (AUTOMATED)2020-06-28 04:47:00* Test Item Value Reference Range Interpretation Comme nts POCT GLU (test code = 0331935107) 95 mg/dL 70-110 Lab Interpretation (test cod e = 86480-9) Normal [facility] GLUCOSE (AUTOMATED)2020-06-28 03:43:00* Test Item Value Reference Range Interpretation Comme nts POCT GLU (test code = 1467857554) 123 mg/dL 70-110 H Lab Interpretation (test cod e = 13633-0) Abnormal [facility] GLUCOSE (AUTOMATED)2020-06-28 02:47:00* Test Item Value Reference Range Interpretation Comme nts POCT GLU (test code = 3365890610) 121 mg/dL 70-110 H Lab Interpretation (test cod e = 37055-6) Abnormal [facility] GLUCOSE (AUTOMATED)2020-06-28 02:17:00* Test Item Value Reference Range Interpretation Comme nts POCT GLU (test code = 4771580759) 94 mg/dL 70-110 Lab Interpretation (test cod e = 95488-0) [facility]2020-12-18 01:21:00* Test Item Value Reference Range Interpretation Comme nts TRIG (test code = 5904019932) 647 mg/dL 30-170 H Lab Interpretation (test cod e = 18883-0) Abnormal [facility] GLUCOSE (AUTOMATED)2020-06-27 23:29:00* Test Item Value Reference Range Interpretation Comme nts POCT GLU (test code = 2553197749) 87 mg/dL 70-110 Lab Interpretation (test cod e = 26075-0) Normal [facility] GLUCOSE (AUTOMATED)2020-06-27 21:36:00* Test Item Value Reference Range Interpretation Comme nts POCT GLU (test code = 1350158019) 85 mg/dL 70-110 Lab Interpretation (test cod e = 52376-5) Normal [facility] GLUCOSE (AUTOMATED)2020-06-27 19:55:00* Test Item Value Reference Range Interpretation Comme nts POCT GLU (test code = 3821044546) 91 mg/dL 70-110 Lab Interpretation (test cod e = 65449-4) Normal [facility] GLUCOSE (AUTOMATED)2020-06-27 19:01:00* Test Item Value Reference Range Interpretation Comme nts POCT GLU (test code = [id number]) 125 mg/dL 70-110 H Lab Interpretation (test cod e = 05181-5) Abnormal [facility] GLUCOSE (AUTOMATED)2020-06-27 17:46:00* Test Item Value Reference Range Interpretation Comme nts POCT GLU (test code = [id number]) 122 mg/dL 70-110 H Lab Interpretation (test cod e = 34875-1) Abnormal [facility] GLUCOSE (AUTOMATED)2020-06-27 16:56:00* Test Item Value Reference Range Interpretation Comme nts POCT GLU (test code = 9952068736) 98 mg/dL 70-110 Lab Interpretation (test cod e = 30744-2) Normal [facility] GLUCOSE (AUTOMATED)2020-06-27 14:47:00* Test Item Value Reference Range Interpretation Comme nts POCT GLU (test code = 1484117251) 209 mg/dL 70-110 H Lab Interpretation (test cod e = 18534-7) Abnormal [facility] GLUCOSE (AUTOMATED)2020-06-27 14:47:00* Test Item Value Reference Range Interpretation Comme nts POCT GLU (test code = 4736553751) 181 mg/dL 70-110 H Lab Interpretation (test cod e = 06223-9) Abnormal [facility] with [id number] 12:55:00* Test Item Value Reference Range Interpretation Comme nts WBC (test code = 6690-2) See_Comment L [Automated Stata ge] The system which generated this result transmitted reference range: 4.20 - 10.70 10*3/?L. The reference range was not used to interpret this result as normal/abnormal. RBC (test code = 789-8) See_Comment [Automated messa ge] The system which generated this result transmitted reference range: 4.26 - 5.52 10*6/?L. The reference range was not used to interpret this result as normal/abnormal. HGB (test code = 718-7) 12.9 g/dL 12.2-16.4 HCT (test code = 4544-3) 36.9 % 38.4-49.3 L MCV (test code = 787-2) 82.6 fL 81.7-95.6 MCH (test code = 785-6) 28.9 pg 26.1-32.7 MCHC (test code = 786-4) 35.0 g/dL 31.2-35 RDW-SD (test code = 37008-2) 35.6 fL 38.5-51.6 L RDW-CV (test code = 788-0) 11.8 % 12.1-15.4 L PLT (test code = 777-3) See_Comment L [Automated messa ge] The system which generated this result transmitted reference range: 150 - 328 10*3/?L. The reference range was not used to interpret this result as normal/abnormal. MPV (test code = 76844-1) 9.9 fL 9.8-13 NRBC/100 WBC (test code = 9343028967) See_Comment [Automated [employer] ssage] The system which generated this result transmitted reference range: 0.0 - 10.0 /100 WBCs. The reference range was not used to interpret this result as normal/abnormal. NRBC x10^3 (test code = 9441367605) <0.01 See_Comment [Automated messa ge] The system which generated this result transmitted reference range: 10*3/?L. The reference range was not used to interpret this result as normal/abnormal. GRAN MAT (NEUT) % (test code = 770-8) 59.3 % IMM GRAN % (test code = 6463146290) 0.30 % LYMPH % (test code = 736-9) 33.7 % MONO % (test code = 5905-5) 4.7 % EOS % (test code = 713-8) 1.3 % BASO % (test code = 706-2) 0.7 % GRAN MAT x10^3(ANC) (test code = 0344143016) 1.78 10*3/uL 1.99-6.95 L IMM GRAN x10^3 (test code = 8895842346) <0.03 0-0.06 LYMPH x10^3 (test code = 731-0) 1.01 10*3/uL 1.09-3.23 L MONO x10^3 (test code = 742-7) 0.14 10*3/uL 0.36-1.02 L EOS x10^3 (test code = 711-2) 0.04 10*3/uL 0.06-0.53 L BASO x10^3 (test code = 704-7) <0.03 0.01-0.09 Lab Interpretation (test code = 77449-9) Abnormal [facility] GLUCOSE (AUTOMATED)2020-06-27 12:26:00* Test Item Value Reference Range Interpretation Comme nts POCT GLU (test code = 1564243114) 238 mg/dL 70-110 H Lab Interpretation (test cod e = 06911-3) Abnormal [facility] GLUCOSE (AUTOMATED)2020-06-27 12:20:00* Test Item Value Reference Range Interpretation Comme nts POCT GLU (test code = 6156017733) 216 mg/dL 70-110 H Lab Interpretation (test cod e = 21087-9) [facility] 12:03:00* Test Item Value Reference Range Interpretation Comme nts TRIG (test code = 4568911448) 810 mg/dL 30-170 H Lab Interpretation (test cod e = 45036-5) [facility] (NA, K, CL, CO2, GLUCOSE, BUN, CREATININE, CA)2020-06-27 11:56:00* Test Item Value Reference Range Interpretation Comme nts NA (test code = 1095140051) 135 mmol/L 135-145 K (test code = 5495861508) 3.6 mmol/L 3.5-5 CL (test code = 8814857246) 104 mmol/L 98-108 CO2 TOTAL (test code = 2172838952) 23 mmol/L 23-31 AGAP (test code = 4500066623) 2-16 BUN (test code = 0604115250) 5 mg/dL 7-23 L GLUCOSE (test code = 5496556485) 191 mg/dL 70-110 H CREATININE (test code = 5007677856) 0.56 mg/dL 0.6-1.25 L CALCIUM (test code = 4623063511) 8.9 mg/dL 8.6-10.6 eGFR Calculation (Non-) (test code = 7171165837) mL/min/1.73m2 eGFR Calculation () (test code = 8165448231) mL/min/1.73m2 OSKAR (test code = OSKAR) Association of [...] or abnormalities in imaging tests). Lab Interpretation (test code = 61187-2) [facility] 11:55:00* Test Item Value Reference Range Interpretation Comme nts LIPASE (test code = 6251577005) 40 U/L 0-220 Lab Interpretation (test cod e = 48996-5) Normal [facility] GLUCOSE (AUTOMATED)2020-06-27 09:09:00* Test Item Value Reference Range Interpretation Comme nts POCT GLU (test code = 2846468365) 185 mg/dL 70-110 H Lab Interpretation (test cod e = 32825-4) Abnormal [facility] GLUCOSE (AUTOMATED)2020-06-27 08:09:00* Test Item Value Reference Range Interpretation Comme nts POCT GLU (test code = 3854796432) 124 mg/dL 70-110 H Lab Interpretation (test cod e = 87646-6) Abnormal [facility] GLUCOSE (AUTOMATED)2020-06-27 07:11:00* Test Item Value Reference Range Interpretation Comme nts POCT GLU (test code = 7829321801) 104 mg/dL 70-110 Lab Interpretation (test cod e = 58632-2) Normal [facility] GLUCOSE (AUTOMATED)2020-06-27 06:04:00* Test Item Value Reference Range Interpretation Comme nts POCT GLU (test code = 6732256572) 97 mg/dL 70-110 Lab Interpretation (test cod e = 95866-6) Normal [facility] GLUCOSE (AUTOMATED)2020-06-27 04:54:00* Test Item Value Reference Range Interpretation Comme nts POCT GLU (test code = 5466010733) 54 mg/dL 70-110 L Lab Interpretation (test cod e = 38003-6) Abnormal [facility] GLUCOSE (AUTOMATED)2020-06-27 04:04:00* Test Item Value Reference Range Interpretation Comme nts POCT GLU (test code = 5565951489) 88 mg/dL 70-110 Lab Interpretation (test cod e = 35295-5) Normal [facility] GLUCOSE (AUTOMATED)2020-06-27 03:32:00* Test Item Value Reference Range Interpretation Comme nts POCT GLU (test code = 0826043024) 104 mg/dL 70-110 Lab Interpretation (test cod e = 70091-1) Normal [facility] GLUCOSE (AUTOMATED)2020-06-27 03:05:00* Test Item Value Reference Range Interpretation Comme nts POCT GLU (test code = 0025374950) 68 mg/dL 70-110 L Lab Interpretation (test cod e = 55873-0) Abnormal [facility] GLUCOSE (AUTOMATED)2020-06-27 02:05:00* Test Item Value Reference Range Interpretation Comme nts POCT GLU (test code = 5838731159) 113 mg/dL 70-110 H Lab Interpretation (test cod e = 56175-4) Abnormal [facility] GLUCOSE (AUTOMATED)2020-06-27 01:21:00* Test Item Value Reference Range Interpretation Comme nts POCT GLU (test code = 2354591606) 122 mg/dL 70-110 H Lab Interpretation (test cod e = 99076-0) Abnormal [facility] GLUCOSE (AUTOMATED)2020-06-27 00:09:00* Test Item Value Reference Range Interpretation Comme nts POCT GLU (test code = 2766095864) 125 mg/dL 70-110 H Lab Interpretation (test cod e = 80235-1) [facility] 23:47:00* Test Item Value Reference Range Interpretation Comme nts TRIG (test code = 2915733565) 1086 mg/dL 30-170 H Lab Interpretation (test cod e = 38966-3) Abnormal [facility] GLUCOSE (AUTOMATED)2020-06-26 23:12:00* Test Item Value Reference Range Interpretation Comme nts POCT GLU (test code = 5748143899) 175 mg/dL 70-110 H Lab Interpretation (test cod e = 09790-0) Abnormal [facility] GLUCOSE (AUTOMATED)2020-06-26 23:12:00* Test Item Value Reference Range Interpretation Comme nts POCT GLU (test code = 6373646607) 81 mg/dL 70-110 Lab Interpretation (test cod e = 69480-9) Normal [facility] GLUCOSE (AUTOMATED)2020-06-26 22:50:00* Test Item Value Reference Range Interpretation Comme nts POCT GLU (test code = 8026321249) 88 mg/dL 70-110 Lab Interpretation (test cod e = 88528-6) Normal [facility] GLUCOSE (AUTOMATED)2020-06-26 22:26:00* Test Item Value Reference Range Interpretation Comme nts POCT GLU (test code = 7710018372) 91 mg/dL 70-110 Lab Interpretation (test cod e = 00281-1) Normal [facility] GLUCOSE (AUTOMATED)2020-06-26 17:06:00* Test Item Value Reference Range Interpretation Comme nts POCT GLU (test code = 8753697432) 227 mg/dL 70-110 H Lab Interpretation (test cod e = 57523-4) [facility]normal [facility] LIPOPROTEIN, [id number] 16:31:00* Test Item Value Reference Range Interpretation Comme nts dLDL Chol (test code = 16400-9) <30 See_Comment [Automated [employer]] The system which generated this result transmitted reference range: <130 mg/dL. The reference range was not used to interpret this result as normal/abnormal. Lab Interpretation (test code = 67492-8) Normal [facility] (88581)(TOTAL CHOLESTEROL, TRIGLYCERIDES, HDL)2020-06-26 13:16:00* Test Item Value Reference Range Interpretation Comme nts CHOL (test code = 2754363285) 217 mg/dL 120-200 H HDL (test code = 0009387085) 13 mg/dL >40 L HDLC RATIO (test code = 1219821046) See_Comment H [Automated [employer]] The system which generated this result transmitted reference range: <=5.0. The reference range was not used to interpret this result as normal/abnormal. TRIG (test code = 4153886940) 1337 mg/dL 30-170 H LDL CHOL (test code = 88868-4) Unable to calcul ate LDL due to elevated triglyceride level greater than 400 mg/dL. VLDL (test code = 4098404838) Unable to calcul ate VLDL due to elevated triglyceride level greater than 710 mg/dL. Lab Interpretation (test code = 39606-0) [facility]-16 13:03:00* Test Item Value Reference Range Interpretation Comme nts LIPASE (test code = 6906197988) 60 U/L 0-220 Lab Interpretation (test cod e = 69413-6) Normal [facility] HEMOGLOBIN (A1C)2020-06-26 12:46:00* Test Item Value Reference Range Interpretation Comme [facility] HGB A1C (test code = 4548-4) 9.2 % 4-6 H OSKAR (test code = OSKAR) %A1C (NGSP) Interpretation (ADA)4.8-5.6 ? ? Normal or (Non-Diabetic Range)5.7-6.4 ? ? Increased Risk (Pre-Diabetic)>6.5 ?Diabetes Indicated Lab Interpretation (test code = 03485-3) [facility]normal [facility]2020-06-26 11:24:00* Test Item Value Reference Range Interpretation Comme [facility] POCT GLU (test code = 4876439640) 209 mg/dL 70-110 H Lab Interpretation (test cod e = 07038-9) Abnormal [facility] ABDOMEN PELVIS W [id number] 05:55:56Impression: 1. Peripancreatic inflammation, likely representing acute [...] demonstrated in the upper abdomen. RL: 2824AFC: [id number] End of Report Exam: CT Abdomen and Pelvis With Contrast, 06/25/2020 9:45 PM. Ordering Physician: KOFI BEEBE. History: Acute, generalized abdominal pain. Technique: CT abdomen and pelvis was obtained with intravenous contrast. CTwas performed according to ALARA (As Low As Reasonably Achievable). Comparison: None. Findings: CT A bdomen:Lung bases are clear. Heart size is normal. [...] is trace pelvic free fluid. ?There is nopelvic adenopathy. Osseous structures are unremarkable. [facility], Radiant Results Inft User - 06/25/2020 11:56 PM CSTExam: CT Abdomen and Pelvis With Contrast, 06/25/2020 9:45 PM.Ordering Physician: KOFI BEEBE.History: Acute, generalized abdominal pain.Technique: CT abdomen and pelvis was obtainedwith intravenous contrast. CT was performed according to [...] represent varices. The adrenal glands are normal.Kidneys aresymmetric in size, enhancement, and contrast excretion. Thereis no hydronephrosis or hydroureter.There is no free air or free fluid. There is no abdominal adenopathy.Stomach is unremarkable. There isduodenal mucosal fold thickening.Diverticulum is noted at the third portion of the duodenum. There is noevidence of bowel obstruction. Appendix is normal. There is moderatecolonic diverticulosis. No focal peridiverticular inflammatory changes areseen. There is mild diffuse colonic wall thickening.There are degenerative changes of the spine. CT Pelvis:Pelvic small bowel loops are unremarkable.Urina ry bladder is unremarkable. Prostate and seminal vesicles are notenlarged.There is trace pelvic free fluid. There is no pelvic adenopathy.Osseous structures are unremarkable. IMPRESSIONImpression: 1.Peripancreatic inflammation, likely representing acute pancreatitis. 1.7cm area [...] may represent reactiveduodenitis.4. Mild diffuse colonic wall thickening,consistent with colitis.5. Moderate colonic diverticulosis without evidence of diverticulitis.6. Nofree air. Trace pelvic free fluid.7. 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 Resultsplenomegaly with varices demonstrated in the upper abdomen. RL: 2824AFC: [id number] of Report [facility]ID NOW RAPID TESTING)2020-06-26 03:44:00* Test Item Value Reference Range Interpretation Comme nts SARS-CoV-2 Rapid ID NOW (test code = 02985-7) Not Detected Not Detected OSKAR (test code = OSKAR) ID NOW COVID-19 As say is an isothermal nucleic acid amplification test intended for the qualitative detection of nucleic acid from SARS-CoV-2 viral RNA in nasopharyngeal (GLASSBLOWER) specimens. It is used under Emergency Use [...] patient testing if clinically indicated. Lab Interpretation (test code = 45560-8) Normal [facility]. METABOLIC PANEL (36649)2020-06-26 03:17:00* Test Item Value Reference Range Interpretation Comme nts NA (test code = 8745771306) 136 mmol/L 135-145 K (test code = 3624116824) 4.3 mmol/L 3.5-5 CL (test code = 5405756034) 97 mmol/L 98-108 L CO2 TOTAL (test code = 1472817771) 31 mmol/L 23-31 AGAP (test code = 1899053001) 2-16 BUN (test code = 3887877046) 7 mg/dL 7-23 GLUCOSE (test code = 0500215964) 220 mg/dL 70-110 H CREATININE (test code = 0750803486) 0.68 mg/dL 0.6-1.25 TOTAL BILI (test code = 8564577495) 1.6 mg/dL 0.1-1.1 H CALCIUM (test code = 0143319469) 9.4 mg/dL 8.6-10.6 T PROTEIN (test code = 7312451678) 7.6 g/dL 6.3-8.2 ALBUMIN (test code = 3342631387) 4.4 g/dL 3.5-5 ALK PHOS (test code = 3227187073) 103 U/L 34-122 ALTv (test code = 1742-6) 113 U/L 5-50 H AST(SGOT) (test code = 8309984700) 87 U/L 13-40 H eGFR Calculation (Non-) (test code = 6534107633) mL/min/1.73m2 eGFR Calculation () (test code = 6003672282) mL/min/1.73m2 OSKAR (test code = OSKAR) Association of [...] or abnormalities in imaging tests). Lab Interpretation (test code = 31096-6) [facility]2020-[facility]-16 03:16:00* Test Item Value Reference Range Interpretation Comme nts LIPASE (test code = 2464972574) 57 U/L 0-220 Lab Interpretation (test cod e = 54132-0) Normal [facility] WITH [id number] 03:00:00* Test Item Value Reference Range Interpretation Comme nts WBC (test code = 6690-2) See_Comment [Automated [employer]] The system which generated this result transmitted reference range: 4.20 - 10.70 10*3/?L. The reference range was not used to interpret this result as normal/abnormal. RBC (test code = 789-8) See_Comment [Automated messa ge] The system which generated this result transmitted reference range: 4.26 - 5.52 10*6/?L. The reference range was not used to interpret this result as normal/abnormal. HGB (test code = 718-7) 15.7 g/dL 12.2-16.4 HCT (test code = 4544-3) 42.9 % 38.4-49.3 MCV (test code = 787-2) 81.7 fL 81.7-95.6 MCH (test code = 785-6) 29.9 pg 26.1-32.7 MCHC (test code = 786-4) 36.6 g/dL 31.2-35 H RDW-SD (test code = 00391-8) 35.3 fL 38.5-51.6 L RDW-CV (test code = 788-0) 11.9 % 12.1-15.4 L PLT (test code = 777-3) See_Comment L [Automated messa ge] The system which generated this result transmitted reference range: 150 - 328 10*3/?L. The reference range was not used to interpret this result as normal/abnormal. MPV (test code = 25526-7) 9.3 fL 9.8-13 L NRBC/100 WBC (test code = 4926758241) See_Comment [Automated [employer] ssage] The system which generated this result transmitted reference range: 0.0 - 10.0 /100 WBCs. The reference range was not used to interpret this result as normal/abnormal. NRBC x10^3 (test code = 7944744166) <0.01 See_Comment [Automated messa ge] The system which generated this result transmitted reference range: 10*3/?L. The reference range was not used to interpret this result as normal/abnormal. GRAN MAT (NEUT) % (test code = 770-8) 74.6 % IMM GRAN % (test code = 3311153160) 0.30 % LYMPH % (test code = 736-9) 18.7 % MONO % (test code = 5905-5) 4.8 % EOS % (test code = 713-8) 1.1 % BASO % (test code = 706-2) 0.5 % GRAN MAT x10^3(ANC) (test code = 5425390835) 4.71 10*3/uL 1.99-6.95 IMM GRAN x10^3 (test code = 4882764945) <0.03 0-0.06 LYMPH x10^3 (test code = 731-0) 1.18 10*3/uL 1.09-3.23 MONO x10^3 (test code = 742-7) 0.30 10*3/uL 0.36-1.02 L EOS x10^3 (test code = 711-2) 0.07 10*3/uL 0.06-0.53 BASO x10^3 (test code = 704-7) 0.03 10*3/uL 0.01-0.09 Lab Interpretation (test code = 59064-3) [facility]2020-06-26 02:46:00* Test Item Value Reference Range Interpretation Comme nts POCT GLU (test code = 5302307992) 248 mg/dL 70-110 H Lab Interpretation (test cod e = 03205-6) Abnormal [facility]
[2023-07-09 12:49] LABS: Hematocrit 50.8 % (39.6-49.0); MCV 86.3 fL (80-100); MPV 7.3 fL (7.6-11.3); Platelets 179 thou/uL (152-406); RBC Red Blood Cell Count 5.88 M/uL (4.33-5.43)
[2023-07-09 13:02] LABS: Albumin 4.8 g/dL (3.4-5.0); Bilirubin Total 3.1 mg/dL (0.2-1.0); Potassium 3.6 mEq/L (3.5-5.1); Protein, Total 8.6 g/dL (6.4-8.2)
[2023-07-09] MEDS ORDERED: ONDANSETRON 4 MG/2 ML VIAL ONE ×3 (13:02→18:52)
[2023-07-09] MEDS ORDERED: KETOROLAC 30 MG/ML INJ ONE (13:03)
[2023-07-09] MEDS ORDERED: MORPHINE 4 MG/ML SYR ONE (13:03)
[2023-07-09] MEDS ORDERED: NA CHLORIDE 0.9% 1,000 ML ONE ×3 (13:03→17:22)
--- NOTE | 2023-07-09 14:30 | RAD REPORT ---
EXAM DESCRIPTION: CT - Abdomen Pelvis Wo Contrast - 07/09/2023 1:43 pm CLINICAL HISTORY: abd pain COMPARISON: Abdomen Pelvis W Contrast dated 03/02/2023; Abdomen Pelvis W Contrast dated 01/26/2023 ; Abdomen Pelvis W Contrast dated 12/16/2022; Abdomen Pelvis W Contrast dated 09/10/2022 TECHNIQUE: Thin cut axial CT imaging of the abdomen and pelvis was performed without IV contrast. Mu ltiplanar reformats were generated and reviewed. All CT scans are performed using dose optimization technique as appropriate and may include automated exposure control or mA/KV adjustment according to patient size. FINDINGS: No suspicious findings in the lung bases. The liver, spleen, and adrenal glands show no suspicious findings. Stable varicosities surrounding th e spleen and the gastric fundus. The pancreas demonstrates a stable ovoid cystic lesion with marginal wall calcifications at the tail measuring 4.1 x 3.6 cm. Gallbladder and biliary tree are also withou t suspicious finding. Symmetric renal contour, without suspicious parenchymal findings within limits of noncontrast techniq ue. No evidence of radiopaque calculi or hydroureteronephrosis. No dilated bowel loops or bowel wall thickening. Colonic diverticulosis. Appendix is unremarkable. No free air, free fluid or inflammatory stranding. No hernia, mass or bulky lymphadenopathy. The urinar y bladder is without significant finding. No suspicious bony findings. IMPRESSION: No acute intra-abdominal process. Stable findings including left upper quadrant varicosities, pancreatic tail cyst with marginal wall c alcifications, and colonic diverticulosis.
--- NOTE | 2023-07-09 14:40 | ER ---
Nurse's Notes [facility] Name: Alex Auguste Age: 43 yrs Sex: Male : 1980 Arrival Date: 07/09/2023 Time: 11:38 Bed [id number] Private MD: Diagnosis: Abnormal results of kidney function studies;Dehydration Presentation: 07/09 11:53 Chief complaint: N/V/D and upper abdominal pain since last night, hx of chronic hb pancreatitis. Coronavirus screen: At this time, the client does not indicate any symptoms associated with coronavirus-19. Ebola Screen: No symptoms or risks identified at this time. Initial Sepsis Screen: Does the patient meet any 2 criteria? No. Patient's initial sepsis screen is negative. Does the patient have a suspected source of infection? No. Patient's initial sepsis screen is negative. Risk Assessment: Do you want to hurt yourself or someone else? Patient reports no desire to harm self or others. Onset of symptoms was July 08, 2023. 11:53 Method Of Arrival: Ambulatory hb 11:53 Acuity: [place] 3 hb Historical: - Allergies: 11:54 No Known Drug Allergies; hb - PMHx: 11:54 angina pectoris; Chronic Pancreatitis; GERD; High Triglycerides; Hypertensive disorder; hb Diabetes - IDDM; - PSHx: 11:54 Cholecystectomy; hb - Immunization history:: Client reports receiving the 2nd dose of the Covid vaccine, Flu vaccine is up to date. - Social history:: Smoking status: Patient/guardian denies using tobacco, Stopped _ months ago .1. Screenin:05 [facility] ED Fall Risk Assessment (Adult) History of falling in the last 3 months, me1 including since admission No falls in past 3 months (0 pts) Confusion or Disorientation No (0 pts) Intoxicated or Sedated No (0 pts) Impaired Gait No (0 pts) Mobility Assist Device Used No (0 pt) Altered Elimination No (0 pt) Score/Fall Risk Level 0 - 2 = Low Risk Maintained a safe environment, Hourly rounding (assess needs \T\ fall precautionary measures) done, Used ambulatory aids as needed (educated on \T\ assisted with). Abuse screen: Denies threats or abuse. Nutritional screening: No deficits noted. Tuberculosis screening: No symptoms or risk factors identified. Assessment: 12:05 General: Appears uncomfortable, ill, well groomed, well developed, well nourished, me1 Behavior is calm, cooperative, appropriate for age, Reports n/v/d since last night. Epigastric and LUQ abdominal pain. Pain: Complains of pain in epigastric area and left upper quadrant Pain does not radiate. Pain currently is 10 out of 10 on a pain scale. Quality of pain is described as sharp, stabbing, Pain began 1 day ago. Is continuous. Neuro: Level of Consciousness is awake, alert, obeys commands, Oriented to person, place, time, situation, Appropriate for age. Cardiovascular: Capillary refill < 3 seconds Patient's skin is warm and dry. Respiratory: Airway is patent Respiratory effort is even, unlabored, Respiratory pattern is regular, symmetrical. GI: Abdomen is flat, Bowel sounds present X 4 quads. Abd is soft X 4 quads Reports diarrhea, nausea, vomiting, since last night. 17:17 General: Called to try to give report to KECIA Fox. No answer. . me1 Vital Signs: 11:53 BP 113 / 65; Pulse 111; Resp 18; Temp 97.7(O); Pulse Ox 100% ; Weight 86.18 kg; Height hb 5 ft. 10 in. ; Pain 10/10; 12:54 BP 103 / 79; Pulse 105; Resp 19; Pulse Ox 100% on R/A; me1 13:11 BP 109 / 66; Pulse 93; Resp 18; Pulse Ox 99% on R/A; me1 14:00 BP 91 / 65; Pulse 77; Resp 18; Pulse Ox 100% on R/A; me1 15:00 BP 115 / 94; Pulse 70; Resp 18; Pulse Ox 100% on R/A; me1 11:53 Body Mass Index 27.26 (86.18 kg, 177.8 cm) hb 11:53 Pain Scale: Adult hb ED Course: 11:39 Patient arrived in ED. rg4 11:54 Triage completed. hb 11:55 Arm band placed on. hb 11:56 Gian Salas MD is Attending Physician. ec2 12:05 Patient has correct armband on for positive identification. Bed in low position. Call me1 light in reach. Side rails up X 1. Provided Education on: POC. Verbalized understanding.. 12:05 No provider procedures requiring assistance completed. me1 12:35 Inserted saline lock: 20 gauge in left forearm, using aseptic technique. Blood bc6 collected. 12:59 Loyda Schmidt, RN is Primary Nurse. me1 14:40 Chace Ramirez is Hospitalizing Provider. ec2 07/10 00:00 Patient admitted, IV remains in place. km8 19:17 Primary Nurse role handed off by Loyda Schmidt, RN la4 19:17 Usama Brewster RN is Primary Nurse. la4 Administered Medications: 07/09 13:08 Drug: NS 0.9% IV 1000 ml IV at 1 bolus Per protocol; 1000 mL bolus Route: IV; Rate: 1 me1 bolus; Site: left forearm; 16:50 Follow up: Response: No adverse reaction; IV Status: Completed infusion; IV Intake: me1 1000ml 13:08 Drug: Ondansetron IVP 4 mg IVP once; over 2 minutes Route: IVP; Site: left forearm; me1 13:28 Follow up: Response: No adverse reaction; Nausea is decreased me1 13:09 Drug: TORadol - Ketorolac IVP 15 mg IVP once Route: IVP; Site: left forearm; me1 13:28 Follow up: Response: No adverse reaction; Pain is decreased me1 13:09 Drug: morphine IVP or IV 4 mg IVP once over 4 mins Route: IVP; Infused Over: 4 mins; me1 Site: left forearm; 13:29 Follow up: Response: No adverse reaction; Pain is decreased me1 13:49 Drug: NS 0.9% IV 1000 ml IV at 1 bolus Per protocol; 1000 mL bolus Route: IV; Rate: 1 me1 bolus; Site: left forearm; 16:46 Follow up: Response: No adverse reaction; IV Status: Completed infusion; IV Intake: me1 1000ml Medication: 12:05 VIS not applicable for this client. me1 Intake: 16:46 IV: 1000ml; Total: 1000ml. me1 16:50 IV: 1000ml; Total: 2000ml. me1 Outcome: 14:40 Decision to Hospitalize by Provider. ec2 07/10 00:00 Admitted to Med/surg km8 Condition: stable 00:00 Instructed on the need for admit, Demonstrated understanding of instructions, km8 07/11 00:51 Patient left the ED. la4 Signatures: Preethi Billy, RN RN hb Genny Arzola rg4 Latasha Gonzales bc6 Loyda Schmidt, RN RN me1 Gian Salas MD MD 2 Jeannie Denis, RN RN km8 Usama Brewster, RN RN la4
--- NOTE | 2023-07-09 14:40 | EDPHYS ---
Physician Documentation [facility] Name: Alex Auguste Age: 43 yrs Sex: Male : 1980 Arrival Date: 07/09/2023 Time: 11:38 Bed IW10 Private MD: ED Physician Gian Salas HPI: 07/09 12:01 This 43 yrs old Male presents to ER via Ambulatory with complaints of ec2 Abdominal Pain. 12:01 Patient arrives today for evaluation of abdominal pain. Patient reports that he has ec2 been experiencing approximately 3 to 4 days of abdominal pain, states a history of pancreatitis. Patient reports some associated nausea and vomiting, also reports chronic diarrhea. Patient reports no URI symptoms, no fevers or chills. Reports. History of cholecystectomy.. Historical: - Allergies: 11:54 No Known Drug Allergies; hb - PMHx: 11:54 angina pectoris; Chronic Pancreatitis; GERD; High Triglycerides; Hypertensive disorder; hb Diabetes - IDDM; - PSHx: 11:54 Cholecystectomy; hb - Immunization history:: Client reports receiving the 2nd dose of the Covid vaccine, Flu vaccine is up to date. - Social history:: Smoking status: Patient/guardian denies using tobacco, Stopped _ months ago .1. ROS: 12:01 Constitutional: as per hpi ec2 Exam: 12:01 Constitutional: GEN: NAD Head: atraumatic Eyes: EOMI Ears: External ears are ec2 normal. CV: regular rate LUNGS: no respiratory distress ABD: non-distended, generally tender, no guarding, not rigid SKIN: no evidence of rashes MSK: no evidence of trauma NEURO: moves all extremities equally Vital Signs: 11:53 BP 113 / 65; Pulse 111; Resp 18; Temp 97.7(O); Pulse Ox 100% ; Weight 86.18 kg; Height hb 5 ft. 10 in. ; Pain 10/10; 12:54 BP 103 / 79; Pulse 105; Resp 19; Pulse Ox 100% on R/A; me1 13:11 BP 109 / 66; Pulse 93; Resp 18; Pulse Ox 99% on R/A; me1 14:00 BP 91 / 65; Pulse 77; Resp 18; Pulse Ox 100% on R/A; me1 15:00 BP 115 / 94; Pulse 70; Resp 18; Pulse Ox 100% on R/A; me1 11:53 Body Mass Index 27.26 (86.18 kg, 177.8 cm) hb 11:53 Pain Scale: Adult hb MDM: 12:00 Patient medically screened. ec2 12:01 Data reviewed: vital signs. ED course: Patient arrives today for evaluation of ec2 abdominal pain in setting of known history of pancreatitis. Examination remarkable for tachycardic individual has a generally tender abdomen. Will obtain lab work, CT abdomen pelvis, treat the patient's symptoms with IV morphine, crystalloid and antiemetic. Currently considering pancreatitis, intra-abdominal infection, UTI.. 13:12 ED course: Metabolic profile shows renal dysfunction with a creatinine of 3.0 and a GFR ec2 of 25. Lipase is slightly elevated at 92. . 13:12 ED course: When compared to external records GFR and creatinine is diminished compared ec2 to previous. . 14:32 ED course: CT imaging shows no evidence of acute intra-abdominal process. . ec2 14:39 ED course: Given the patient's marked renal dysfunction, will admit for rehydration, ec2 FRANDY.. 07/09 12:01 Order name: CBC with Diff ec2 07/09 12:01 Order name: CMP ec2 07/09 12:01 Order name: Lipase ec2 07/09 12:01 Order name: Urinalysis w/ reflexes ec2 07/09 13:02 Order name: Comprehensive Metabolic Panel; Complete Time: 13:11 EDMS 07/09 13:02 Order name: Lipase; Complete Time: 13:11 EDMS 07/09 13:26 Order name: CBC with Automated Diff; Complete Time: 13:42 EDMS 07/09 17:23 Order name: Glucose, Ancillary Testing EDMS 07/09 19:35 Order name: Lipid Profile EDMS 07/09 19:46 Order name: LDL, Direct EDMS 07/09 20:43 Order name: Urinalysis w/ reflexes EDMS 07/09 21:37 Order name: Glucose, Ancillary Testing EDMS 07/10 04:59 Order name: CBC with Automated Diff EDMS 07/10 05:26 Order name: Comprehensive Metabolic Panel EDMS 07/10 05:26 Order name: Phosphorus EDMS 07/10 05:26 Order name: Lipid Profile EDMS 07/10 05:26 Order name: Magnesium EDMS 07/10 05:37 Order name: LDL, Direct EDMS 07/10 05:50 Order name: Hemoglobin A1c EDMS 07/10 08:18 Order name: Glucose, Ancillary Testing EDMS 07/10 09:25 Order name: Lipase EDMS 07/10 11:52 Order name: Glucose, Ancillary Testing EDMS 07/10 18:01 Order name: Glucose, Ancillary Testing EDMS 07/10 21:06 Order name: Glucose, Ancillary Testing EDMS 07/10 21:06 Order name: Glucose, Ancillary Testing EDMS 07/09 12:01 Order name: CT Abd/Pelvis - IV Contrast Only ec2 07/09 14:30 Order name: CT; Complete Time: 14:32 EDMS 07/09 12:01 Order name: IV Saline Lock; Complete Time: 12:35 ec2 07/09 12:01 Order name: Labs collected and sent; Complete Time: 12:35 ec2 Administered Medications: 13:08 Drug: NS 0.9% IV 1000 ml IV at 1 bolus Per protocol; 1000 mL bolus Route: IV; Rate: 1 me1 bolus; Site: left forearm; 16:50 Follow up: Response: No adverse reaction; IV Status: Completed infusion; IV Intake: me1 1000ml 13:08 Drug: Ondansetron IVP 4 mg IVP once; over 2 minutes Route: IVP; Site: left forearm; me1 13:28 Follow up: Response: No adverse reaction; Nausea is decreased me1 13:09 Drug: TORadol - Ketorolac IVP 15 mg IVP once Route: IVP; Site: left forearm; me1 13:28 Follow up: Response: No adverse reaction; Pain is decreased me1 13:09 Drug: morphine IVP or IV 4 mg IVP once over 4 mins Route: IVP; Infused Over: 4 mins; me1 Site: left forearm; 13:29 Follow up: Response: No adverse reaction; Pain is decreased me1 13:49 Drug: NS 0.9% IV 1000 ml IV at 1 bolus Per protocol; 1000 mL bolus Route: IV; Rate: 1 me1 bolus; Site: left forearm; 16:46 Follow up: Response: No adverse reaction; IV Status: Completed infusion; IV Intake: me1 1000ml Disposition Summary: 07/09/23 14:40 Hospitalization Ordered Notes: Hospitalization Status: Inpatient Admission ec2 Provider: Chace Ramirez ec2 Condition: Stable ec2 Problem: an acute exacerbation ec2 Symptoms: are unchanged ec2 Bed/Room Type: Standard ec2 Location: [facility] ER HOLD(07/09/23 16:45) kb3 Room Assignment: ERHOLD-(07/09/23 16:45) kb3 Diagnosis - Abnormal results of kidney function studies ec2 - Dehydration ec2 Forms: - Medication Reconciliation Form ec2 - SBAR form ec2 - Leadership Thank You Letter ec2 Signatures: Dispatcher [employer] EDPreethi Barrett RN RN Greta Perales RN RN kb3 Loyda Schmidt RN RN me1 Gian Salas MD MD ec2 Corrections: (The following items were deleted from the chart) 16:45 14:40 Telemetry/MedSurg (Inpatient) ec2 kb3 16:45 14:40 ec2 kb3
--- NOTE | 2023-07-09 15:17 | P.HP ---
Certification for Inpatient Patient admitted to: Observation With expected LOS: <2 Midnights Patient will require the following post-hospital care: None Practitioner: I am a practitioner with admitting privileges, knowledge of patient current condition, hospital course, and medical plan of care. Services: Services provided to patient in accordance with Admission requirements found in Title 42 Section 412.3 of the Code of Federal Regulations <Patricia Coronado - Last Filed: 07/09/23 17:59> Patient History Date of Service: 07/09/23 Reason for admission: FRANDY History of Present Illness: Alex Auguste is a 43-year-old male with past medical history angina pectoris; Chronic Pancreatitis; GERD; High Triglycerides; Hypertensive disorder Diabetes - IDDM, who presented to the ED with complaints of abdominal pain associated with nausea and vomiting for the last 3 to 4 days. He reports history of pancreatitis for several years, and gets relief the sooner he comes to the ED. BUN/creatinine 17/1.16 02/2023 and today BUN/creatinine 36/3, GFR was 80 and today is 25. 2 L of IV fluids, Zofran, Pepcid, and morphine were given in the ED. Initial vital: BP 113 / 65; Pulse 111; Resp 18; Temp 97.7(O); Pulse Ox 100% Laboratory evaluation BUN/creatinine 36/3, GFR 25, T. bili 3.1, lipase 92 CT abdomen pelvis reports " No acute intra-abdominal process. Stable findings including left upper quadrant varicosities, pancreatic tail cyst with marginal wall calcifications, and colonic diverticulosis." Alex will be admitted to hospitalist service for further treatment of FRANDY, nephrology consulted. - Past Medical/Surgical History Diabetic: Yes -: Chronic Pancreatitis (due to high triglycerides) -: Type 2 Diabetes -: pancreatitis -: [place] -: ray's palsy -: high triglyceride -: Cranial nerves 3 and 6 problems -: cholecystectomy -: fx wrist -: knee surg Psychosocial/ Personal History: Patient lives at home with his family. - Family History Mother -: Heart disease Notes: Recent DC Father -: Stroke Notes: glaucoma - Social History Alcohol use: No CD- Drugs: No Caffeine use: Yes <Patricia Coronado - Last Filed: 07/09/23 17:59> Date of Service: 07/10/23 <roe heaton - Last Filed: 07/10/23 16:24> Allergies No Known Drug Allergies Allergy (Verified 05/29/18 03:33) NONE Home Medications: Insulin Aspart [Novolog Flexpen] See Protocol SQ ACHS 01/08/22 Insulin Glargine,Hum.rec.anlog [Lantus Solostar] 36 unit SQ DAILY 01/08/22 Fenofibrate [Tricor*] 160 mg PO DAILY #30 tab 01/10/22 Ondansetron [Zofran] 4 mg PO Q6H PRN 4 Days #18 tab 07/10/23 Review of Systems Gastrointestinal: Nausea, Vomiting, Abdominal Pain, No Distention <Patricia Coronado - Last Filed: 07/09/23 17:59> Physical Examination - Physical Exam General: Alert, In no apparent distress, Oriented x3 HEENT: Atraumatic, Normocephalic, PERRLA Neck: Supple, 2+ carotid pulse no bruit, JVD not distended Respiratory: Clear to auscultation bilaterally, Normal air movement Cardiovascular: No edema, Normal pulses, Regular rate/rhythm, Normal S1 S2 Capillary refill: <2 Seconds Gastrointestinal: Normal bowel sounds, Soft and benign Musculoskeletal: No clubbing, No swelling, No contractures, No erythema Integumentary: No rashes, No breakdown, No significant lesion, No tenderness/swelling Neurological: Normal speech, Normal strength at 5/5 x4 extr, Normal tone - Studies Laboratory Data (last 24 hrs) 07/09/23 07/09/23 12:30 12:30 WBC 7.50 Hgb 18.4 H Hct 50.8 H Plt Count 179 Sodium 132 L Potassium 3.6 BUN 36 H Creatinine 3.00 H Glucose 280 H Total Bilirubin 3.1 H AST 23 ALT 47 Alkaline Phosphatase 70 Lipase 92 H <Patricia Coronado - Last Filed: 07/09/23 17:59> - Studies Laboratory Data (last 24 hrs) 07/09/23 07/09/23 12:01 12:01 WBC Cancelled Hgb Cancelled Hct Cancelled Plt Count Cancelled Sodium Cancelled Potassium Cancelled BUN Cancelled Creatinine Cancelled Glucose Cancelled Total Bilirubin Cancelled AST Cancelled ALT Cancelled Alkaline Phosphatase Cancelled Lipase Cancelled <roe heaton - Last Filed: 07/10/23 16:24> Assessment and Plan - Plan Assessment and Plan FRANDY Bun Creatinine 36/3.0, GFR 25 Gentle IVF Monitor in a.m. lab Likely consult nephrology in the a.m. Abdominal pain in a patient with an extensive history of pancreatitis Cyst to pancreatic tail with marginal wall calcification Colonic diverticulosis Nausea/vomiting Hypertriglyceridemia -CT abdomen pelvis reports "Stable findings including left upper quadrant varicosities, pancreatic tail cyst with marginal wall -calcifications, and colonic diverticulosis." -Lipid panel pending -Lipate 92, TBili 3.1 -Gentle IVF -Restart home medications when appropriate Diabetes- IDDM Serum glucose 280 Accucheck with SSI A1C pending C-peptide pending Hypertensive disorder Restart home medications when appropriate DVT pps; heparin Full code LOS 2-3 days Discharge Plan: Home Plan to discharge in: 72 Hours - Advance Directives Does patient have a Living Will: No Does patient have a Durable POA for Healthcare: No Time Spent Managing Pts Care (In Minutes): 55 <Patricia Coronado - Last Filed: 07/09/23 17:59> - Plan Patient seen and examined, plan of care discussed with Ms. Coronado. Patient with suspected history of chronic pancreatitis. Nausea and vomiting FRANDY secondary to dehydration. History of hypertriglyceridemia Aggressively hydrate with IV fluid. Check triglyceride level Supportive measures Diet as tolerated. <roe heaton - Last Filed: 07/10/23 16:24>
[2023-07-09] MEDS: NA CHLORIDE 0.9% 1,000 ML IV SCH (16:00)
[2023-07-09] MEDS: INSULIN REGULAR (HUMAN) 100 UNIT/ML SQ SCH ×2 (16:30→21:00)
[2023-07-09] MEDS: HEPARIN 5000 UNIT/ML 1 ML VIAL SQ SCH (17:00)
[2023-07-09] MEDS ORDERED: HEPARIN 5000 UNIT/ML 1 ML VIAL ONE (17:21)
[2023-07-09] MEDS ORDERED: MORPHINE 2 MG/ML SYR ONE ×2 (17:22→21:22)
[2023-07-09] MEDS: MORPHINE 2 MG/ML SYR IV PRN ×2 (17:31→21:24)
[2023-07-09] MEDS: ONDANSETRON 4 MG/2 ML VIAL IV PRN (18:56)
[2023-07-09 19:34] LABS: HDL Cholesterol 23 mg/dL (40-60)
[2023-07-09 19:46] LABS: LDL, Direct 47 mg/dL (100-129)
[2023-07-09 20:42] LABS: Specific Gravity 1.024 (1.005-1.030); Urine Bacteria <20 /HPF (<20); Urine Bilirubin NEGATIVE (Negative); Urine Blood 1+ (Negative); Urine Clarity Extremely Turbid (Clear); Urine Color Yellow (Yellow); Urine Crystals Unidentified Moderate /HPF (None Seen); Urine Glucose 2+ (Negative); Urine Mucus 3+ /HPF (None Seen); Urine Protein 1+ (Negative); Urine Urobilinogen 1+ (Normal); Urine WBC Clump Few /HPF (None Seen)
[2023-07-10] MEDS ORDERED: HEPARIN 5000 UNIT/ML 1 ML VIAL ONE ×3 (01:23→17:50)
[2023-07-10] MEDS ORDERED: ONDANSETRON 4 MG/2 ML VIAL ONE ×4 (01:23→20:58)
[2023-07-10] MEDS ORDERED: MORPHINE 2 MG/ML SYR ONE ×7 (01:23→20:58)
[2023-07-10] MEDS: ONDANSETRON 4 MG/2 ML VIAL IV PRN ×4 (01:24→20:45)
[2023-07-10] MEDS: NA CHLORIDE 0.9% 1,000 ML IV SCH (01:24)
[2023-07-10] MEDS: HEPARIN 5000 UNIT/ML 1 ML VIAL SQ SCH ×3 (01:24→17:00)
[2023-07-10] MEDS: MORPHINE 2 MG/ML SYR IV PRN ×6 (01:24→20:45)
[2023-07-10] MEDS ORDERED: NA CHLORIDE 0.9% 1,000 ML ONE ×2 (01:24→10:31)
[2023-07-10] MEDS ORDERED: MORPHINE 2 MG/ML SYR IV ONE (04:12)
[2023-07-10 04:58] LABS: Absolute Lymphocytes (CBC) 1.2 K/uL (0.7-4.9); Hematocrit 41.5 % (39.6-49.0); Lymphocytes % 27.5 % (15.3-44.8); MPV 7.2 fL (7.6-11.3); Platelets 105 thou/uL (152-406); RBC Red Blood Cell Count 4.77 M/uL (4.33-5.43)
[2023-07-10 05:18] LABS: ALT/SGPT 70 U/L (16-61); AST/SGOT 69 U/L (15-37); Albumin 3.3 g/dL (3.4-5.0); Alkaline Phosphatase 88 U/L (45-117); BUN Blood Urea Nitrogen 35 mg/dL (7-18); Bicarbonate 28 mEq/L (21-32); Bilirubin Total 3.7 mg/dL (0.2-1.0); Glomerular Filtration Rate 61 ml/min (=/>90); Glucose Level 236 mg/dL (74-106); HDL Cholesterol 20 mg/dL (40-60); Magnesium 2.2 mg/dL (1.6-2.4); Phosphorus 2.5 mg/dL (2.5-4.9); Potassium 3.3 mEq/L (3.5-5.1); Protein, Total 6.3 g/dL (6.4-8.2); Sodium Level 139 mEq/L (136-145)
[2023-07-10 05:37] LABS: LDL, Direct 44 mg/dL (100-129)
[2023-07-10] MEDS ORDERED: POTASSIUM PHOS IN 0.9 % NACL 15 MMOL/250 ML BAG IV ONE ×2 (06:18→07:45)
[2023-07-10] MEDS ORDERED: KCL 20 MEQ/100 mL IVPB 100 ML IV ONE ×2 (06:28→09:22)
[2023-07-10] MEDS: KCL 20 MEQ/100 mL IVPB 20 MEQ/100 ML BAG IV SCH ×2 (06:45→09:00)
[2023-07-10] MEDS: INSULIN REGULAR (HUMAN) 100 UNIT/ML SQ SCH ×3 (07:30→16:30)
[2023-07-10 09:25] LABS: Lipase 54 U/L (13-75)
[2023-07-10] MEDS ORDERED: INSULIN REGULAR (HUMAN) 100 UNIT/ML ONE (11:43)
--- NOTE | 2023-07-10 13:50 | P.PN ---
Date of Service: 07/10/23 Subjective AAO X2, Ambulating independently, Still c/o epigastric pain, Reports vomiting at 2 am Epigastric pain to palpation, He didn't c/o pain on palpation yesterday. ROS 10 point ROS as noted above, otherwise negative Physical Exam General: Alert, In no apparent distress, Oriented x3 HEENT: Atraumatic, Normocephalic, PERRLA Neck: Supple, 2+ carotid pulse no bruit, JVD not distended Respiratory: Clear to auscultation bilaterally, Normal air movement Cardiovascular: No edema, Normal pulses, Regular rate/rhythm, Normal S1 S2 Capillary refill: <2 Seconds Gastrointestinal: Normal bowel sounds, Soft and benign, Tenderness to epigastric area Musculoskeletal: No clubbing, No swelling, No contractures, No erythema Integumentary: No rashes, No breakdown, No significant lesion, No tenderness/swelling Neurological: Normal speech, Normal strength at 5/5 x4 extr, Normal tone Vitals Reviewed Problem list Abdominal pain in a patient with an extensive history of pancreatitis Cyst to pancreatic tail with marginal wall calcification Colonic diverticulosis Nausea/vomiting Hypertriglyceridemia FRANDY Thrombocytopenia Diabetes- IDDM Hypertensive disorder Assessment and Plan FRANDY Bun Creatinine 35/1.44, GFR 61 Gentle IVF Monitor in a.m. lab Likely consult nephrology in the a.m. Abdominal pain in a patient with an extensive history of pancreatitis Cyst to pancreatic tail with marginal wall calcification Colonic diverticulosis Nausea/vomiting Hypertriglyceridemia -CT abdomen pelvis reports "Stable findings including left upper quadrant varicosities, pancreatic tail cyst with marginal wall -calcifications, and colonic diverticulosis." -Lipid panel pending -Lipase 92/54, TBili 3.1/3.7 -Gentle IVF -Restart home medications when appropriate -Advanced to FLD, pending discharge Thrombocytopenia Platelets 107 dropped from 167 hold heparin monitor for bleeding Diabetes- IDDM Serum glucose 280 Accucheck with SSI A1C 9.0 C-peptide pending Hypertensive disorder Restart home medications when appropriate DVT pps; heparin Full code LOS 2-3 days DVT ppx Code status LOS Time Spent Managing Pts Care (In Minutes): 35
[2023-07-10 14:23] VITALS: TEMP 97
--- NOTE | 2023-07-10 14:47 | P.DS ---
Admission Date: 07/09/23 Discharge Date: 07/10/23 Disposition: ROUTINE DISCHARGE Discharge Condition: FAIR Reason for Admission: FRANDY Brief History of Present Illness: Diagnosis Abdominal pain in a patient with an extensive history of pancreatitis Cyst to pancreatic tail with marginal wall calcification Colonic diverticulosis Nausea/vomiting Hypertriglyceridemia FRANDY Thrombocytopenia Diabetes- IDDM Hypertensive disorder HPI 07/09/23 Alex Auguste is a 43-year-old male with past medical history angina pectoris; Chronic Pancreatitis; GERD; High Triglycerides; Hypertensive disorder Diabetes - IDDM, who presented to the ED with complaints of abdominal pain associated with nausea and vomiting for the last 3 to 4 days. He reports history of pancreatitis for several years, and gets relief the sooner he comes to the ED. BUN/creatinine 17/1.16 02/2023 and today BUN/creatinine 36/3, GFR was 80 and today is 25. 2 L of IV fluids, Zofran, Pepcid, and morphine were given in the ED. Initial vital: BP 113 / 65; Pulse 111; Resp 18; Temp 97.7(O); Pulse Ox 100% Laboratory evaluation BUN/creatinine 36/3, GFR 25, T. bili 3.1, lipase 92 CT abdomen pelvis reports " No acute intra-abdominal process. Stable findings including left upper quadrant varicosities, pancreatic tail cyst with marginal wall calcifications, and colonic diverticulosis." Alex will be admitted to hospitalist service for further treatment of FRANDY, nephrology consulted. 07/10/23 Alex reports nausea and vomiting has decreased, tolerating full liquid diet, ambulating independently, ready for discharge. He is hemodynamically stable, will follow-up with his PCP for diabetes mellitus management and triglyceride management. Follow-up with gastrointestinal doctor for colon and pancreatic health advance diet slowly, bland food today as tolerated, Zofran has been called into the pharmacy. Physical Exam General: Alert, In no apparent distress, Oriented x3 HEENT: Atraumatic, Normocephalic, PERRLA Neck: Supple, 2+ carotid pulse no bruit, JVD not distended Respiratory: Clear to auscultation bilaterally, Normal air movement Cardiovascular: No edema, Normal pulses, Regular rate/rhythm, Normal S1 S2 Capillary refill: <2 Seconds Gastrointestinal: Normal bowel sounds, Soft and benign, Tenderness to epigastric area Musculoskeletal: No clubbing, No swelling, No contractures, No erythema Integumentary: No rashes, No breakdown, No significant lesion, No tenderness/swelling Neurological: Normal speech, Normal strength at 5/5 x4 extr, Normal tone Hospital Course: FRANDY Bun Creatinine 35/1.44, GFR 61 Gentle IVF Monitor in a.m. lab Likely consult nephrology in the a.m. Abdominal pain in a patient with an extensive history of pancreatitis Cyst to pancreatic tail with marginal wall calcification Colonic diverticulosis Nausea/vomiting Hypertriglyceridemia -CT abdomen pelvis reports "Stable findings including left upper quadrant varicosities, pancreatic tail cyst with marginal wall -calcifications, and colonic diverticulosis." -Lipid panel pending -Lipase 92/54, TBili 3.1/3.7 -Gentle IVF -Restart home medications when appropriate -Advanced to FLD, pending discharge Thrombocytopenia Platelets 107 dropped from 167 hold heparin monitor for bleeding Diabetes- IDDM Serum glucose 280 Accucheck with SSI A1C 9.0 C-peptide pending Hypertensive disorder Restart home medications when appropriate Vital Signs/Physical Exam: Temp Pulse Resp BP Pulse Ox 97 F 72 15 111/72 99 07/10/23 12:00 07/10/23 12:00 07/10/23 12:00 07/10/23 12:00 07/10/23 12:00 Laboratory Data at Discharge: WBC 4.20 thou/uL (4.3-10.9) L 07/10/23 04:48 Hgb 14.7 g/dL (13.6-17.9) D 07/10/23 04:48 Hct 41.5 % (39.6-49.0) 07/10/23 04:48 Plt Count 105 thou/uL (152-406) L D 07/10/23 04:48 Sodium 139 mEq/L (136-145) D 07/10/23 04:48 Potassium 3.3 mEq/L (3.5-5.1) L 07/10/23 04:48 BUN 35 mg/dL (7-18) H 07/10/23 04:48 Creatinine 1.44 mg/dL (0.70-1.30) H 07/10/23 04:48 Glucose 236 mg/dL (74-106) H 07/10/23 04:48 Phosphorus 2.5 mg/dL (2.5-4.9) 07/10/23 04:48 Magnesium 2.2 mg/dL (1.6-2.4) 07/10/23 04:48 Total Bilirubin 3.7 mg/dL (0.2-1.0) H 07/10/23 04:48 AST 69 U/L (15-37) H 07/10/23 04:48 ALT 70 U/L (16-61) H 07/10/23 04:48 Alkaline Phosphatase 88 U/L (45-117) D 07/10/23 04:48 Triglycerides 519 mg/dL (<150) H 07/10/23 04:48 Cholesterol 111 mg/dL (<200) 07/10/23 04:48 LDL Cholesterol Direct 44 mg/dL (100-129) L 07/10/23 04:48 HDL Cholesterol 20 mg/dL (40-60) L 07/10/23 04:48 Cholesterol/HDL Ratio 5.55 07/10/23 04:48 Lipase Cancelled 07/10/23 08:24 Home Medications: Insulin Aspart [Novolog Flexpen] See Protocol SQ ACHS 01/08/22 Insulin Glargine,Hum.rec.anlog [Lantus Solostar] 36 unit SQ DAILY 01/08/22 Fenofibrate [Tricor*] 160 mg PO DAILY #30 tab 01/10/22 Ondansetron [Zofran] 4 mg PO Q6H PRN 4 Days #18 tab 07/10/23 New Medications: Ondansetron [Zofran] 4 mg PO Q6H PRN 4 Days #18 tab PRN Reason: Nausea / Vomiting Physician Discharge Instructions: 1. Please call and schedule a follow-up appointment with your PCP in 3-5 days - Please follow-up with your PCP for medication refills/adjustments 2. Please call and schedule a follow-up appointment with gastrointestinal doctor for further management of pancreatic exacerbations in 1-2 weeks 3. Continue with bland diet as tolerated 4. No activity restrictions, as tolerated 5. Return to the ED if symptoms worsen 6. New medication, Zofran called into your pharmacy Diet: ADA Activity: Ad harsha Followup: OOTRADHA [Primary Care Provider] - Time spent managing pt's care (in minutes): 35
[2023-07-10 18:26] VITALS: BMI 27.1
[2023-07-11 00:37] VITALS: BP 148/111
[2023-07-11 03:06] VITALS: O2SAT 100
== END 2023-07-10 22:53 | disposition home or self-care (01) ==
LOC: ER 11:38 → ERHOLD 16:01
PROVIDERS: ADMIT Internal Medicine; ATTEND Internal Medicine
DX: N17.9 Acute kidney failure, unspecified (principal); K86.1 Other chronic pancreatitis; I20.0 Unstable angina; K21.9 Gastro-esophageal reflux disease without esophagitis; E78.1 Pure hyperglyceridemia; I10 Essential (primary) hypertension; E11.9 Type 2 diabetes mellitus without complications; R11.2 Nausea with vomiting, unspecified; R10.9 Unspecified abdominal pain; K57.90 Diverticulosis of intestine, part unspecified, without perforation or abscess without bleeding; K86.2 Cyst of pancreas; D69.6 Thrombocytopenia, unspecified; Z79.4 Long term (current) use of insulin
CPT/HCPCS: 96361; 87088; 85025 ×2; 81001; 87086; 36415; 83721 ×2; 83735; 84100; 80061 ×2; 82947 ×6; 83036; 83690 ×2; 80053 ×2; 84681; 74176; 96375; 96374; 99285; Q9967; J1815; J1644 ×4; J3480 ×2; J2270 ×9; J2405 ×6; J7030 ×5; G0378

== ENCOUNTER 2024-01-10 21:32 | Emergency (ER) | payer BC ==
--- OUTSIDE RECORDS SUMMARY | 2024-01-10 21:39 | XMS REPORT | Continuity of Care Document ---
Author Name Unknown Address [address] [place] [address] [facility] thconnect Address [address] 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 Name Role Phone ANNELIESE BRENDA Primary Care Physician Unavailab Chetan Hairston Attending Clinician Unavailable FORTINO FARRIS Attending Clinician Unavailable Fortino Farris MD Attending Clinician [phone] Nader Randall Attending Clinician [phone] Doctor Unassigned, [place] Attending Clinician U Lillian Pickett Attending Clinician [phone] Madeline MCDONNELL, Annita Huizar Attending Clinician [phone] Kofi Beebe MD Attending Clinician [phone] Laurence Jose MD Attending Clinician [phone] Cole Guan MD Attending Clinician [phone] COLE GUAN Attending Clinician Unavailpoornima e FORTINO FARRIS Admitting Clinician Unavailable Laurence Jose MD Admitting Clinician [phone] Payers Payer Name Policy Type Policy Number Effective Date Expirati on Date Source [place] OF [place] - OUT OF STATE [id number] 2019 00:00:00 Problems Condition Name Condition Details [...] [facility] Diplopia Diplopia Disease Active 2014-07 0 00:00: 00 [facility] Diabetes mellitus type 2, uncontroll ed, without complicati ons Diabetes mellitus type 2, uncontroll ed, without complicati ons Disease Active 04-04 00:00: 00 Overview: Formattin g of this note might be different from the original. 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 [facility] Allergies, Adverse Reactions, Alerts Allergy Name Allergy Type Status Severity Reaction(s) Onset Date Inactive Date Treating Clinician Comments Source No Known Drug Allergie s DA Active U 3-25 00:00: 00 [facility] No Known Drug Allergie s DA Active U 3-21 00:00: 00 [facility] No Known Drug Allergie s DA Active U 3-17 00:00: 00 [facility] NO KNOWN ALLERGIE S Drug Class Active [facility] Social History Social Habit Start Date Stop Date Quantity Comments Source History of tobacco use Snuff User [facility] n[facility] Exposure to SARS-CoV-2 (event) Not sure [facility] Alcohol intake 2020-06-25 00:00:00 2020-06-25 00:00:00 Current non-drinker of alcohol (finding) [facility] Alcoholic beverage intake 2020-06-25 00:00:00 2020-06-25 00:00:00 0 /d [facility] History of Social function 2020-06-25 00:00:00 2020-06-25 00:00:00 [facility] Tobacco use and exposure 2015-04-22 00:00:00 2015-04-22 00:00:00 User of smokeless tobacco [facility] Sex assigned at 1980 00:00:00 1980 00:00:00 [facility] Smoking Status Start Date Stop Date Source Never smoked tobacco [facility] Medications Ordered Medication Name Filled Medication Name Start Date Stop Date Current Medication? Ordering Clinician Indication Dosage Frequency Signature (SIG) Comments Components Source insulin regular human (HUMULIN R) injection 6 Units 12-13 03:00: 00 12-13 02:04 :00 No 6U 6 Units, Slow IV Push, ONCE, 1 dose, On Wed12/13/23 at 2200, STAT, Indication for insulin: Hyperglyce adam [facility] ondansetron (ZOFRAN (PF)) injection 4 mg 12-13 03:00: 00 12-13 02:05 :00 No 4mg 4 mg, Slow IV Push, ONCE, 1 dose, On Wed12/13/23 at 2200, ANA MARIA [facility] morpHINE (4 mg/mL) injection 4 mg 12-13 02:00: 00 12-13 02:06 :00 No 4mg 4 mg, Slow IV Push, ONCE, 1 dose, On Wed12/13/23 at 2100, STAT [facility] insulin regular human (HUMULIN R) injection 6 Units 12-13 02:00: 00 12-13 01:19 :00 No 6U 6 Units, Slow IV Push, ONCE, 1 dose, On Wed12/13/23 at 2100, STAT, Indication for insulin: Hyperglyce adam [facility] NaCl 0.9% (NS) bolus infusion 1,000 mL 12-13 02:00: 00 12-13 02:34 :00 No 1000mL at 999 mL/hr, 1,000 mL, IV Infusion, ONCE, 1 dose, On Wed12/13/23 at 2100, STAT [facility] iopamidol (ISOVUE 370-500 mL) injection 79 mL 12-13 01:05: 00 12-13 01:05 :00 No [id number] 79mL 79 mL, Intravenou s, ONCE, 1 dose, On Wed12/13/23 at 2015, Routine [facility] morpHINE injection 2 mg 11-16 22:00: 00 11-16 22:00 :00 No 2mg 2 mg, Slow IV Push, ONCE, 1 dose, 11/16/20 at 1700, STAT [facility] predniSONE [...] 11-16 20:45: 00 11-16 19:30 :00 No [id number] 100mL 100 mL, Intravenou s, ONCE, 1 [...] mg per tablet 11-16 00:00: 00 Yes [id number] 1{tbl} Take 1 tablet by mouth every 12 (twelve) hours. [facility] predniSONE 20 mg tablet 11-16 00:00: 00 Yes [id number] 1 PO BID x 4 days [facility] ibuprofen (IBU) tablet 800 mg 07-28 23:30: 00 07-28 22:44 :00 No 800mg 800 mg, Oral, ONCE, 1 dose, 07/28/20 at 1730, ANA MARIA [facility] Diclofenac Sodium (VOLTAREN) 1 % gel 07-28 00:00: 00 Yes [id number] Apply to area(s) 2 (two) times daily. [facility] insulin glargine (LANTUS U-100) injection 36 Units 2019-07 2-20 03:00: 00 Yes 36U 36 Units, Subcutaneo [...] 180,000 unit CpDR 2019-07 01:33: 08 Yes [id number] Take 36,000 Units by mouth with all [...] [facility] gemfibroziL 600 mg tablet 2019-07 19:33: 08 Yes 600mg Take 600 mg by mouth 2 (two) times daily before breakfast and dinner. [facility] metoprolol tartrate 25 mg tablet 2019-07 19:33: 08 Yes 25mg Take 25 mg by mouth 2 (two) times daily. [facility] Pantoprazol e 40 mg delayed-rel ease suspension 2019-07 19:33: 08 Yes 40mg Take 40 mg by mouth daily. [facility] busPIRone 10 mg tablet 2019-07 19:33: 08 Yes 10mg Take 10 mg by mouth 2 (two) times daily. [facility] niacin 500 mg tablet 2019-07 19:33: 08 Yes 500mg Take 500 mg by mouth daily with breakfast. [facility] lipase-prot ease-amylas e (CREON) 36,000-114, 000- 180,000 unit CpDR 2019-07 19:33: 08 Yes [id number] Take 36,000 Units by mouth with all meals. Take 2 capsules by mouth with meals and 1 with each snack. [facility] losartan 25 mg tablet 2019-07 19:33: 08 Yes 25mg Take 25 mg by mouth daily. [facility] vortioxetin e 10 mg Tab 2019-07 19:33: 08 Yes 10mg Take 10 mg by mouth at bedtime. [facility] insulin glargine (LANTUS U-100) injection 15 Units 2019-07 15:00: 00 06-29 14:07 :00 No 15U 15 Units, Subcutaneo us, ONCE, 1 dose, 06/29/20 at 0900, Routine [facility] morpHINE injection 2 mg 2019-07 08:15: 00 Yes 2mg 2 mg, Slow IV Push, Q6HPRN, Starting 06/29/20 at 0215, Until Discontinu ed, Routine, Pain (scale 7-10) [facility] atorvastati n 40 mg tablet 2019-07 00:00: 00 07-30 05:59 :00 No [id number] 40mg Take 1 tablet by mouth at bedtime for 30 days. [facility] haloperidol lactate (HALDOL) injection 5 mg 2019-07 22:30: 00 06-28 22:51 :00 No 5mg 5 mg, Slow IV Push, ONCE NOW, 1 dose, 06/28/20 at 1630, Routine [facility] LORazepam (ATIVAN) injection 1 mg 2019-07 21:00: 00 06-28 20:16 :00 No 1mg 1 mg, Slow IV Push, ONCE, 1 dose, Wed06/28/20 at 1500, Routine [facility] FLUoxetine (PROZAC) capsule 20 mg 2019-07 20:30: 00 Yes 20mg 20 mg, Oral, DAILY, First dose on Wed06/28/20 at 1430, Until Discontinu ed, Routine [facility] NaCl 0.9% (NS) IV infusion 1,000 mL 2019-07 14:30: 00 Yes 1000mL at 100 mL/hr, IV Infusion, CONTINUOUS , Starting Wed06/28/20 at 0830, Until Discontinu ed, Routine [facility] KCL (KLOR-CON M20) tablet 40 mEq 2019-07 14:30: 00 06-28 14:38 :00 No 40meq 40 mEq, Oral, ONCE, 1 dose, Wed06/28/20 at 0830, Routine [facility] Sliding Scale Insulin-Reg ular + Fsbg Testing 2019-07 13:30: 00 Yes Subcutaneo us, AC+HS, First dose on Wed06/28/20 at 0730, Until Discontinu ed, Routine [facility] glucagon (GLUCAGEN DIAGNOSTIC KIT) injection 1 [...] Wed06/27/20 at 2000, Until Discontinu ed, Routine [facility] omega 3-dha-epa-f beckie oil (FISH OIL) capsule 1,000 mg 2019-07 20:00: 00 Yes 1000mg 1,000 mg, Oral, TID, First dose on Wed06/27/20 at 1400, Until Discontinu ed, Routine
Reason for non-formul caitlyn use: PATIENT CURRENTLY TAKING NONFORMULA RY PRODUCT
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 caitlyn medication : ELLIS [...] Wed06/26/20 at 2100, Until Discontinu ed, Routine [facility] gemfibroziL (LOPID) tablet 600 mg 2019-07 02:00: 00 Yes 600mg 600 mg, Oral, BID, First dose on Wed06/26/20 at 2000, Until Discontinu ed, Routine [facility] busPIRone (BUSPAR) tablet 10 mg 2019-07 02:00: 00 Yes 10mg 10 mg, Oral, BID, First dose on Wed06/26/20 at 2000, Until Discontinu ed, Routine [facility] enoxaparin (LOVENOX) injection 40 mg 2019-07 23:00: 00 Yes 40mg 40 mg, Subcutaneo us, DAILY, First dose on Wed06/26/20 at 1700, Until Discontinu ed, Routine [facility] morpHINE injection 4 mg 2019-07 16:30: [...] at 0815, Until Padmini 06/27/20 at 2351, [facility] D5W 0.9% NaCl (NS) IV infusion 1,000 mL 2019-07 14:15: 00 06-28 13:21 :40 No 1000mL at 125 mL/hr, 1,000 mL, IV Infusion, CONTINUOUS , Starting Wed06/26/20 at 0815, Until Wed06/28/20 at 0721, [facility] Sliding Scale Insulin - Lispro (HumaLOG) + Fsbg Testing 2019-07 12:00: 00 06-26 21:57 :55 No Subcutaneo us, Q6H, First dose on Wed06/26/20 at 0600, Until Discontinu ed, Routine [facility] proMETHazin e (PHENERGAN) 12.5 mg in NaCl 0.9% (NS) 50 mL IV piggyback 2019-07 11:21: 28 Yes 12.5mg 12.5 mg, IV Piggyback, Q4HPRN, Starting Wed06/26/20 at 0521, Until Discontinu ed, Routine, Nausea and Vomiting (N/V) [facility] morpHINE injection 4 mg 2019-07 11:21: 11 06-26 16:15 :46 No 4mg 4 mg, Slow IV Push, Q4HPRN, Starting Wed06/26/20 at 0521, Until Wed06/26/20 at 1015, Routine, Pain (scale 7-10) [facility] NaCl 0.9% (NS) IV infusion 1,000 mL 2019-07 08:00: 00 06-26 14:01 :34 No 1000mL at 125 mL/hr, IV Infusion, CONTINUOUS , Starting Wed06/26/20 at 0200, Until Wed06/26/20 at 0801, Routine [facility] dextrose 50 % in water (D50W) injection 25 mL 2019-07 07:48: 20 06-28 13:26 :23 No 25mL 25 mL, Slow IV Push, PRN, Starting Wed06/26/20 at 0148, Until Wed06/28/20 at 0726, ANA MARIA, Blood Glucose < or = 70 mg/dL and patient is unable to swallow or has mental status changes. [facility] proMETHazin e (PHENERGAN) 25 mg in NaCl 0.9% (NS) 50 mL piggyback 2019-07 07:45: 00 06-26 07:45 :00 No 25mg 25 mg, IV Piggyback, ONCE, 1 dose, Wed06/26/20 at 0145, 50 mL [facility] FENTanyl PF (SUBLIMAZE (PF)) injection 100 mcg 2019-07 07:45: 00 06-26 06:34 :00 No 100ug 100 mcg, Slow IV Push, ONCE, 1 dose, Wed06/26/20 at 0145, Routine [facility] morpHINE injection 2 mg 2019-07 07:44: [...] mcg, Slow IV Push, ONCE, 1 dose, 06/25/20 at 2300, STAT [facility] iohexol (OMNIPAQUE 350 BULK-150 mL) injection 120 mL 2019-07 04:45: 00 06-26 04:45 :00 No 120mL 120 mL, Intravenou s, ONCE, 1 dose, 06/25/20 at 2245, Routine [facility] NaCl 0.9% (NS) IV infusion 1,000 mL 2019-07 04:00: 00 06-26 14:01 :29 No 1000mL at 999 mL/hr, Intravenou s, CONTINUOUS , Starting Wed06/25/20 at 2200, Until Wed06/26/20 at 0801, Routine [facility] ondansetron (ZOFRAN (PF)) injection 4 mg 2019-07 04:00: 00 06-26 03:10 :00 No 4mg 4 mg, Slow IV Push, ONCE, 1 dose, 06/25/20 at 2200, ANA MARIA [facility] FENTanyl PF (SUBLIMAZE (PF)) injection 75 mcg 2019-07 04:00: 00 06-26 03:09 :00 No 75ug 75 mcg, Slow IV Push, ONCE, 1 dose, 06/25/20 at 2200, Routine [facility] LOVAZA, omega-3-aci d ethyl esters, 1 gram capsule 7-31 00:00: 00 Yes [id number] 3g Take 3 capsules by mouth daily. [facility] ondansetron (ZOFRAN ODT) 4 mg disintegrat ing tablet 5-03 00:00: 00 Yes [id number] 4mg Take 1 tablet by mouth every 8 (eight) hours as needed for Nausea and Vomiting (N/V). [facility] Insulin Outlook, Disposable, (BD INSULIN PEN NEEDLE UF) 31 gauge x 5/16" Ndle 9-25 00:00: 00 Yes QID, DX:E11.9 [facility] Insulin Outlook, Disposable, (BD INSULIN PEN NEEDLE UF) 31 gauge x 5/16" Ndle 9-25 00:00: 00 Yes QID, DX:E11.9 [facility] Insulin Outlook, Disposable, (BD INSULIN PEN NEEDLE UF) 31 gauge x /" 04-05 00:00: 00 Yes QID, DX:E11.9 [facility] atorvastati n (LIPITOR) 40 mg tablet 04-05 00:00: 00 02-08 00:00 :00 No [id number] 40mg Take 1 tablet by mouth at bedtime. [facility] LOVAZA, omega-3-aci d ethyl esters, (LOVAZA) 1 gram capsule 04-05 00:00: 02-08 00:00 :00 No [id number] 2g Take 2 capsules by mouth 2 (two) times daily before breakfast and dinner. [facility] insulin aspart (NOVOLOG FLEXPEN) 100 unit/mL injection 12-29 00:00: 00 Yes [id number] Inject as instructed TID AC up to 80 units daily [facility] Insulin Glargine (LANTUS SOLOSTAR) 100 unit/mL (3 mL) injection 12-29 00:00: 00 Yes [id number] 35U inject 35 Units under the skin every morning. [facility] glucagon 1 mg/mL SolR injection 12-29 00:00: 00 02-08 00:00 :00 No [id number] Use as instructed in case of severe [...] aspirin 81 mg chewable tablet 2014-07 00:00: 02-08 00:00 :00 No 81mg Take 1 Tab by mouth daily. [facility] enalapril (VASOTEC) 5 mg tablet 2014-07 00:00: 00 02-08 00:00 :00 No 5mg Take 1 Tab by mouth daily. [facility] fenofibrate micronized (LOFIBRA) 134 mg capsule 2014-07 00:00: 00 02-08 00:00 :00 No 134mg Take 1 Cap by mouth daily. [facility] blood sugar diagnostic (FREESTYLE INSULINX) strip 2011-07 00:00: 00 02-08 00:00 :00 No [id number] before meals and at bedtime. [facility] Lancets (LANCETS,UL TRA THIN) [facility] 04-04 00:00: 00 Yes [id number] [facility] Lancets (LANCETS,UL TRA THIN) [facility] 04-04 00:00: 00 Yes [id number] [facility] Vital Signs Vital Name Observation Time Observation Value Comments S ource Systolic blood pressure 2023-12-14 02:00:00 116 mm[Hg] [facility] Diastolic blood pressure 2023-12-14 02:00:00 79 mm[Hg] [facility] Heart rate 2023-12-14 02:00:00 71 /min [facility] Respiratory rate 2023-12-14 02:00:00 16 /min [facility] Oxygen saturation in Arterial blood by Pulse oximetry 2023-12-14 02:00:00 100 /min [facility] Body temperature 2023-12-14 00:00:00 36.44 Dejah [facility] Body height 2023-12-13 22:27:00 177.8 cm [facility] Body weight 2023-12-13 22:27:00 83.915 kg [facility] BMI 2023-12-13 22:27:00 26.54 kg/m2 [facility] Systolic blood pressure 2020-11-16 21:02:00 150 mm[Hg] [facility] Diastolic blood pressure 2020-11-16 21:02:00 93 mm[Hg] [facility] Heart rate 2020-11-16 21:02:00 93 /min [facility] Respiratory rate 2020-11-16 21:02:00 20 /min [facility] Oxygen saturation in Arterial blood by Pulse oximetry 2020-11-16 21:02:00 100 /min [facility] Body temperature 2020-11-16 18:21:00 36.61 Dejah [facility] Body weight 2020-11-16 18:21:00 89.359 kg [facility] BMI 2020-11-16 18:21:00 28.27 kg/m2 [facility] Systolic blood pressure 2020-07-28 21:58:00 147 mm[Hg] [facility] Diastolic blood pressure 2020-07-28 21:58:00 100 mm[Hg] [facility] Heart rate 2020-07-28 21:58:00 103 /min [facility] Body temperature 2020-07-28 21:58:00 36.28 Dejah [facility] Respiratory rate 2020-07-28 21:58:00 20 /min [facility] Body weight 2020-07-28 21:58:00 86.183 kg [facility] BMI 2020-07-28 21:58:00 27.26 kg/m2 [facility] Oxygen saturation in Arterial blood by Pulse oximetry 2020-07-28 21:58:00 100 /min [facility] Systolic blood pressure 2020-06-29 22:21:00 133 mm[Hg] [facility] Diastolic blood pressure 2020-06-29 22:21:00 81 mm[Hg] [facility] Heart rate 2020-06-29 22:21:00 89 /min [facility] Body temperature 2020-06-29 22:21:00 36.83 Dejah [facility] Respiratory rate 2020-06-29 22:21:00 18 /min [facility] Oxygen saturation in Arterial blood by Pulse oximetry 2020-06-29 22:21:00 99 /min [facility] Body weight 2020-06-27 10:03:00 87.998 kg [facility] BMI 2020-06-27 10:03:00 27.84 kg/m2 [facility] Body height 2020-06-26 07:45:00 177.8 cm [facility] Systolic blood pressure 2020-06-29 22:21:00 133 mm[Hg] [facility] Diastolic blood pressure 2020-06-29 22:21:00 81 mm[Hg] [facility] Heart rate 2020-06-29 22:21:00 89 /min [facility] Body temperature 2020-06-29 22:21:00 36.83 Dejah [facility] Respiratory rate 2020-06-29 22:21:00 18 /min [facility] Oxygen saturation in Arterial blood by Pulse oximetry 2020-06-29 22:21:00 99 /min [facility] Body weight 2020-06-27 10:03:00 87.998 kg [facility] BMI 2020-06-27 10:03:00 27.84 kg/m2 [facility] Body height 2020-06-26 07:45:00 177.8 cm [facility] Procedures Procedure Date / Time Performed Performing Clinician Source POCT GLUCOSE (AUTOMATED) 2023-12-14 02:25:00 Isaiah Farris [facility] POCT GLUCOSE (AUTOMATED) 2023-12-14 02:04:00 Isaiah Farris [facility] POCT GLUCOSE (AUTOMATED) 2023-12-14 01:35:00 Isaiah Farris [facility] POCT GLUCOSE (AUTOMATED) 2023-12-14 01:18:[address] [facility] W CONTRAST 2023-12-14 01:09:58 Fortino Farris [facility] LIPASE 2023-12-14 00:08:[address] [facility], [facility] TROPONIN I 2023-12-14 00:08:[address] [facility], [facility] COMP. METABOLIC PANEL ([id number]) 2023-12-14 00:08:00 Fortino Farris [facility] ETHANOL 2023-12-14 00:08:[address] [facility], [facility] CBC WITH DIFF 2023-12-14 00:08:00 Fortino Farris [facility] URINALYSIS 2023-12-14 00:08:[address] [facility], [facility] N-TERMINAL PRO-BNP 2023-12-14 00:08[facility]UNOASSAY[facility] - COMPREHENSIVE DRUG SCREEN W/O REFLEX 2023-12-14 00:08:00 Fortino Farris [facility] XR CHEST 1 VW 2023-12-13 23:22:21 Fortino Farris [facility] CT ABDOMEN PELVIS W CONTRAST 2020-11-16 19:40:14 Nader Mendoza [facility] LIPASE 2020-11-16 18:28:[address] [facility], [facility] MAGNESIUM 2020-11-16 18:28:[address] [facility], [facility] COMP. METABOLIC PANEL ([id number]) 2020-11-16 18:28:00 Nader Mendoza Shayla [facility] CBC WITH DIFF 2020-11-16 18:28:00 Nader Mendoza [facility] URINALYSIS 2020-11-16 18:28:00 Nader Mendoza [facility] POCT GLUCOSE (AUTOMATED) 2020-11-16 18:25:00 Nader Mendoza [facility] CONSENT/REFUSAL FOR DIAGNOSIS AND TREATMENT 2020-11-16 18:14:39 Doctor Unassigned, [place] [facility] CT CERVICAL SPINE WO CONTRAST 2020-07-28 22:41:56 Lillian Barr [facility] CT HEAD WO CONTRAST 2020-07-28 22:41:56 Lillian Barr [facility] NOTICE OF PRIVACY PRACTICES 2020-07-28 21:50:31 Doctor Unassigned, [place] [facility] CONSENT/REFUSAL FOR DIAGNOSIS AND TREATMENT 2020-07-28 21:50:20 Doctor Unassigned, [place] [facility] POCT GLUCOSE (AUTOMATED) 2020-06-29 23:35:00 Rebeca [facility] POCT GLUCOSE (AUTOMATED) 2020-06-29 18:04:00 Rebeca [facility] POCT GLUCOSE (AUTOMATED) 2020-06-29 13:54:00 Rebeca [facility] TRIGLYCERIDES 2020-06-29 11:20:00 Ellis Almeida [facility] BASIC METABOLIC PANEL (NA, K, CL, CO2, GLUCOSE, BUN, CREATININE, CA) 2020-06-29 11:20:00 Rebeca [facility] CBC WITH DIFF 2020-06-29 11:20:00 [facility] 2020-06-29 03:10:00 Danis [facility] POCT GLUCOSE (AUTOMATED) 2020-06-28 22:46:[facility] 2020-06-28 18:53:00 [facility]UCOSE (AUTOMATED) 2020-06-28 18:01:00 [facility] PO[facility] GLUCOSE (AUTOMATED) 2020-06-28 13:27:00 [facility] PO[facility] GLUCOSE (AUTOMATED) 2020-06-28 11:48:00 Rebeca [facility] TRIGLYCERIDES 2020-06-28 10:27:00 Ellis Almeida [facility] LIPASE 2020-06-28 10:27:00 Rebeca [facility] MAGNESIUM 2020-06-28 10:27:00 Favio Moscoso [facility] BASIC METABOLIC PANEL (NA, K, CL, CO2, GLUCOSE, BUN, CREATININE, CA) 2020-06-28 10:27:00 Rebeca [facility] ETHANOL 2020-06-28 10:27:00 Favio Moscoso [facility] CBC WITH DIFF 2020-06-28 10:27:00 Rebeca [facility] POCT GLUCOSE (AUTOMATED) 2020-06-28 10:10:00 [facility] POCT GLUCOSE (AUTOMATED) 2020-06-28 07:00:00 Edlilacal [facility] POCT GLUCOSE (AUTOMATED) 2020-06-28 05:48:00 Edlilacal [facility] POCT GLUCOSE (AUTOMATED) 2020-06-28 04:45:00 Edioncal [facility] POCT GLUCOSE (AUTOMATED) 2020-06-28 03:40:00 Edion [facility] POCT GLUCOSE (AUTOMATED) 2020-06-28 02:43:00 [facility] 2020-06-28 01:39[facility]00 [facility] 2020-06-27 23:10:00 [facility] 2020-06-27 23:08:00 Ellis Almeida [facility] POCT GLUCOSE (AUTOMATED) 2020-06-27 21:29:00 [facility] 2020-06-27 19:54:00 [facility]) 2020-06-27 18:59:00 [facility] POCT GLUCOSE (AUTOMATED) 2020-06-27 17:42:00 [facility]ATED) 2020-06-27 16:50:00 [facility] ([facility]OMATED) 2020-06-27 14:43:00 [facility] (AUTOMATED) 2020-06-27 13:19:00 [facility] ([facility]ATED) 2020-06-27 12:18:00 [facility] TRIGLYCERIDES 2020-06-27 10:20:00 Ellis Almeida [facility] LIPASE 2020-06-27 10:20[facility] (NA, K, CL, CO2, GLUCOSE, BUN, CREATININE, CA) 2020-06-27 10:20:00 Rebeca [facility] CBC WITH DIFF 2020-06-27 10:20:00 Rebeca [facility] POCT GLUCOSE (AUTOMATED) 2020-06-27 10:06:00 Rebeca [facility] POCT GLUCOSE (AUTOMATED) 2020-06-27 09:06:00 Rebeca [facility] POCT GLUCOSE (AUTOMATED) 2020-06-27 08:07:00 Edtere [facility] POCT GLUCOSE (AUTOMATED) 2020-06-27 07:09:00 Rebeca [facility] POCT GLUCOSE (AUTOMATED) 2020-06-27 06:02:00 Rebeca [facility] POCT GLUCOSE (AUTOMATED) 2020-06-27 04:52:00 [facility] POCT GLUCOSE (AUTOMATED) 2020-06-27 04:02:00 [facility] POCT GLUCOSE (AUTOMATED) 2020-06-27 03:28:00 [facility] POCT GLUCOSE (AUTOMATED) 2020-06-27 [facility]:02[facility] 2020-06-27 02:01:00 [facility] POCT GLUCOSE (AUTOMATED) 2020-06-27 01:15:00 [facility] POCT GLUCOSE (AUTOMATED) 2020-06-27 00:07:00 [facility] POCT GLUCOSE (AUTOMATED) 2020-06-26 22:46:00 [facility] TRIGLYCERIDES 2020-06-26 22:07:00 Ellis Almeida [facility] POCT GLUCOSE (AUTOMATED) 2020-06-26 21:45:00 [facility] POCT GLUCOSE (AUTOMATED) 2020-06-26 20:38:00 [facility] 2020-06-26 18:13:00 [facility] POCT GLUCOSE (AUTOMATED) 2020-06-26 17:03:00 [facility] LIPASE 2020-06-26 11:15:00 [facility] L[facility] (16814)(TOTAL CHOLESTEROL, TRIGLYCERIDES, HDL) 2020-06-26 11:15:00 [facility] GLYCOSYLATED HEMOGLOBIN (A1C) 2020-06-26 11:15:00 [facility] LOW-DENSITY LIPOPROTEIN, DIRECT 2020-06-26 11:15:00 [facility] POCT GLUCOSE (AUTOMATED) 2020-06-26 11:12:[address] [facility] [address] ABDOMEN PELVIS W CONTRAST 2020-06-26 04:40:39 Kofi Beebe [facility] ASSIGNMENT OF BENEFITS 2020-06-26 03:16:02 Docto r Unassigned, [place] [facility] COVID-19 (ID NOW RAPID TESTING) 2020-06-26 03:12:00 Kofi Beebe [facility] LAB ONLY COVID INTERPRETATION 2020-06-26 03:12:00 Kofi Beebe [facility] LIPASE 2020-06-26 02:54:00 Kofi Beebe [facility] COMP. METABOLIC PANEL (04506) 2020-06-26 02:54:00 Kofi Beebe [facility] CBC WITH DIFF 2020-06-26 02:54:00 [facility] POCT GLUCOSE (AUTOMATED) 2020-06-26 02:44:00 Aysha Beebe [facility] CONSENT/REFUSAL FOR DIAGNOSIS AND TREATMENT 2020-06-26 02:29:58 Doctor Unassigned, [place] [facility] EXTERNAL PROVIDER RECORDS 2020-02-09 05:01:00 Do ctor Unassigned, [place] [facility] Encounters Start Date/Time End Date/Time Encounter Type Admission Type Attending Clinicians Care Facility Care Department Encounter ID Source 2021-10-03 16:00:00 Inpatient Chetan Coleman [facility] [id number] [facility] 2021-09-29 17:00:00 Inpatient Chetan Coleman [facility] [id number] [facility] 2021-05-11 17:56:10 Emergency [facility] [id number] [facility] 2021-05-10 17:48:01 Emergency [facility] [id number] [facility] 2021-05-10 11:31:12 Emergency [facility] [id number] [facility] 2023-12-13 17:36:00 2023-12-13 21:40:00 Emergency X FORTINO FARRIS [facility] [id number] [facility] 2023-12-13 17:36:00 2023-12-13 21:40:00 Emergency Fortino Farris [facility] 1..840.114 350.1.13.10 4.2.7.2.686 [id number] [facility] 2021-10-03 16:42:00 2021-10-03 16:42:00 Outpatient [facility] [id number] [facility] 2021-09-29 14:17:00 2021-09-29 14:17:00 Outpatient [facility] [id number] [facility] 2021-09-25 13:47:00 2021-09-25 13:47:00 Outpatient Elective Chetan Coleman [facility] [id number] [facility] 2021-09-25 13:47:00 2021-09-25 13:47:00 Outpatient [facility] [id number] [facility] 2020-11-16 13:16:00 2020-11-16 16:24:00 Emergency Nader Mendoza [facility] 1.2.840.114 350.1.13.10 4.2.7.2.686 [id number] [facility] 2020-11-16 00:00:00 2020-11-16 00:00:00 Orders Only Doctor Unassigned, [place] [facility] 1.2.840.114 350.1.13.10 4.2.7.2.686 [id number] [id number] [facility] 2020-07-28 16:00:00 2020-07-28 17:40:00 Emergency Lillian Barr [facility] 1.2.840.114 350.1.13.10 4.2.7.2.686 [id number] [facility] 2020-07-28 00:00:00 2020-07-28 00:00:00 Orders Only Doctor Unassigned, [place] [facility] 1.2840.114 350.1.13.10 4.2.7.2.686 [id number] [facility] 2020-07-01 00:00:00 2020-07-01 00:00:00 Transition of Care Annita Correa 1.2.840.114 350.1.13.10 4.2.7.2.686 [id number] [facility] 2020-07-01 00:00:00 2020-07-01 00:00:00 Transition of Care Annita Correa 1.2.840.114 350.1.13.10 4.2.7.2.686 [id number] 2020-06-25 20:44:00 2020-06-29 19:29:00 [facility] 1.2.840.114 350.1.13.10 4.2.7.2.686 [id number] [facility] 2020-06-25 20:44:00 2020-06-29 19:29:00 Hospital Encounter Kofi Beebe [facility] 1.2.840.114 350.1.13.10 4.2.7.2.686 [id number] 2020-06-25 00:00:00 2020-06-25 00:00:00 Orders Only Doctor Unassigned, [place] [facility] 1.2.840.114 350.1.13.10 4.2.7.2.686 [id number] [facility] 2020-06-25 00:00:00 2020-06-25 00:00:00 Orders Only Doctor Unassigned, [place] [facility] 1.2.840.114 350.1.13.10 4.2.7.2.686 [id number] [id number] 2020-02-09 15:04:39 2020-02-09 15:53:06 Telemedici ne Visit Cole Guan [facility] 1.2840.114 350.1.13.10 4.2.7.2.686 [id number] [facility] 2020-02-09 15:04:39 2020-02-09 15:53:06 Telemedici ne Visit Cole Guan [facility] 1.2840.114 350.1.13.10 4.2.7.2.686 [id number] 2020-02-09 15:00:00 2020-02-09 15:00:00 Outpatient R COLE GUAN [facility] [id number] [facility] 2020-02-09 00:00:00 2020-02-09 00:00:00 Orders Only Doctor Unassigned, [place] [facility] 1.2.840.114 350.1.13.10 4.2.7.2.686 [id number] [facility] 2020-02-09 00:00:00 2020-02-09 00:00:00 Orders Only Doctor Unassigned, [place] [facility] 1.2.840.114 350.1.13.10 4.2.7.2.686 [id number] [id number] 2020-02-07 00:00:00 2020-02-07 00:00:00 [facility]phone [facility] 1.2.840.114 350.1.13.10 4.2.7.2.686 [id number] [facility] 2020-02-07 00:00:00 2020-02-07 00:00:00 Telephone Cole Guan [facility] Building 1.2.840.114 350.1.13.10 4.2.7.2.686 [id number] Results Test Description Test Time Test Comments Results Result Co mments Source [facility] ABDOMEN PELVIS W [id number] 02:18:58HS:Y Indication: Pancreatitis, acute, severe ? Comparison: None RL: [id number] ORDERING PHYSICIAN: ?FORTINO OKEEFE TECHNIQUE: Axial CT images of the abdomen and pelvis were performed with ivcontrast. Sagittal and coronal reformats were created. Dose reductiontechniques were used (ALARA). FINDINGS: ?Bilateral lung bases are clear. Abdomen/pelvis:Liver: There is diffuse fatty infiltration of the liver. Gallbladder: Gallbladder surgically absent. Spleen: Normal. Pancreas: There is a 3.6 x 3 cm cystic lesion in the pancreatic tail. Adrenal glands: Normal. 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 There is fillingdefect in the splenic vein. There is filling defect in the IVC. Bowel: No evidence of bowel obstruction.The appendix is visualized and isnot inflamed. Bladder/reproductive organs: Urinary bladder is unremarkable. Bone and soft tissue: No acute osseous abnormality is noted.[facility] GLUCOSE (AUTOMATED)2023-12-14 02:09:43* Test Item Value Reference Range Interpretation Comme [facility] POCT GLU (test code = 8784534952) 406 mg/dL 70-110 H Lab Interpretation (test cod e = 63635-4) Abnormal [facility] GLUCOSE (AUTOMATED)2023-12-14 01:36:46* Test Item Value Reference Range Interpretation Comme nts POCT GLU (test code = 4538800016) 453 mg/dL 70-110 HH Lab Interpretation (test cod e = 72702-7) [facility] 01:21:40* Test Item Value Reference Range Interpretation Comme nts POCT GLU (test code = 3421505524) 504 mg/dL 70-110 HH Lab Interpretation (test cod e = 28696-6) [facility]normal [facility] [id number] 01:02:25* Test Item Value Reference Range Interpretation Comme nts TROPONIN I (test code = 2091126677) 0.005 ng/mL <=0.034 OSKAR (test code = OSKAR) Reference (Normal) Range (defined by the 99th percentile reference limit): <= 0.034 ng/mL Note: Cardiac troponin begins to rise 3-4 hours after the onset of ischemia. Repeat in 4-6 hours if the sample was drawn within 3-4 hours of the onset of the symptom and found normal. Diagnosis of myocardial injury is made with acute changes in cTn concentrations with at least one serial sample above the 99th percentile upper reference limit (URL), taken together with the patient's clinical presentation. Biotin has been reported to cause a negative bias, interpret results relative to patient's use of biotin. Lab Interpretation (test code = 45795-2) Normal [facility] [id number] 00:59:47* Test Item Value Reference Range Interpretation Comme [facility] NT-proBNP (test code = 96292-6) 20 pg/mL <=125 Lab Interpretation (test cod e = 62603-6) Normal [facility] 1 [id number] 00:54:09Ordering physician: FORTINO FARRIS Clinical indication: Dyspnea. Comparison: None Technique: Chest,single view Technical quality: Adequate Findings: The lungs are clear. No pleural effusions are evident. Heart size isnormal. The superior mediastinal silhouette is unremarkable for age andprojection. No acute bony abnormalities are evident.[facility] 00:53:41ALCOHOL<10mg/dL12/13/2023 7:53 PM [facility]<10 Pfawgvft28-574 Toxic>100 Depression of SENIOR DIGITAL DESIGNER>400 Fatalities Reported [facility]OL[facility] PANEL (21989)2023-12-14 00:53:36* Test Item Value Reference Range Interpretation Comme nts NA (test code = 0908718184) 129 mmol/L 135-145 L K (test code = 7232602524) 4.3 mmol/L 3.5-5.0 CL (test code = 5830399007) 93 mmol/L 98-108 L CO2 TOTAL (test code = 9322992007) 26 mmol/L 23-31 AGAP (test code = 0994978561) 10 2-16 BUN (test code = 0661578741) 25 mg/dL 7-23 H GLUCOSE (test code = 1266483778) 486 mg/dL 70-110 HH CREATININE (test code = 2160-0) 1.22 mg/dL 0.60-1.25 TOTAL BILI (test code = 6211863741) 1.6 mg/dL 0.1-1.1 H CALCIUM (test code = 3951083655) 8.8 mg/dL 8.6-10.6 T PROTEIN (test code = 7570551082) 7.9 g/dL 6.3-8.2 ALBUMIN (test code = 5571798803) 4.4 g/dL 3.5-5.0 ALK PHOS (test code = 3815394712) 78 U/L 34-122 ALTv (test code = 1742-6) 145 U/L 5-50 H AST(SGOT) (test code = 0145060392) 52 U/L 13-40 H eGFR (test code = 94755-5) 75.0 mL/min/1.73m2 CKD-EPI eGFR (2020). Assuming creatinine has been stable day-to-day for at least three months, the eGFR indicates Category G2 (60 - 89 mL/min/1.73 m2) Lab Interpretation (test code = 76150-8) [facility] 00:49:27* Test Item Value Reference Range Interpretation Comme nts LIPASE (test code = 0362841994) 1623 U/L 0-220 H Lab Interpretation (test cod e = 51802-9) [facility]normal [facility] [id number] 00:31:25* Test Item Value Reference Range Interpretation Comme nts WBC (test code = 6690-2) 4.93 4.20-10.70 RBC (test code = 789-8) 4.76 4.26-5.52 HGB (test code = 718-7) 14.6 g/dL 12.2-16.4 HCT (test code = 4544-3) 39.0 % 38.4-49.3 MCV (test code = 787-2) 81.9 fL 81.7-95.6 MCH (test code = 785-6) 30.7 pg 26.1-32.7 MCHC (test code = 786-4) 37.4 g/dL 31.2-35.0 H RDW-SD (test code = 40354-5) 33.1 fL 38.5-51.6 L RDW-CV (test code = 788-0) 11.4 % 12.1-15.4 L PLT (test code = 777-3) 167 150-328 MPV (test code = 22274-2) 10.0 fL 9.8-13.0 NRBC/100 WBC (test code = 7382576956) 0.0 0.0-10.0 NRBC x10^3 (test code = 1123466110) See_Comment [Automated messa ge] The system which generated this result transmitted reference range: 10*3/?L. The reference range was not used to interpret this result as normal/abnormal. GRAN MAT (NEUT) % (test code = 770-8) 63.5 % IMM GRAN % (test code = 9027129383) 0.80 % LYMPH % (test code = 736-9) 27.2 % MONO % (test code = 5905-5) 6.1 % EOS % (test code = 713-8) 1.4 % BASO % (test code = 706-2) 1.0 % GRAN MAT x10^3(ANC) (test code = 5925040094) 3.13 10*3/uL 1.99-6.95 IMM GRAN x10^3 (test code = 4346021905) 0.04 10*3/uL 0.00-0.06 LYMPH x10^3 (test code = 731-0) 1.34 10*3/uL 1.09-3.23 MONO x10^3 (test code = 742-7) 0.30 10*3/uL 0.36-1.02 L EOS x10^3 (test code = 711-2) 0.07 10*3/uL 0.06-0.53 BASO x10^3 (test code = 704-7) 0.05 10*3/uL 0.01-0.09 Lab Interpretation (test code = 21559-5) [facility]normal [facility] Xcwcfxlocnp7296-84-77 20:01:00* Test Item Value Reference Range Interpretation Comme nts Glucose Fingerstick (test code = WGLUC) 247 mg/dL 70-115 [employer]INATING OPERATOR Eug giacomo Lum Glucose Voznmsshdak6424-30-88 17:29:00* Test Item Value Reference Range Interpretation Comme nts Glucose Fingerstick (test code = WGLUC) 296 mg/dL 70-115 [employer]INATING OPERATOR VIE MonikaJordanMELVI NUNES T Glucose Vrgqrarsyxb7015-13-43 14:49:00* Test Item Value Reference Range Interpretation Comme nts Glucose Fingerstick (test code = WGLUC) 334 mg/dL 70-115 H[employer] L[employer]INATING OPERATOR And rew Samuel MCDONNELL or OR MICRO Lobauxzr8079-38-10 16:15:00* Test Item Value Reference Range Interpretation [...] the possible exception of Ceftaroline. LEFT HANDGlucose Yqwsaglfbdm4244-55-10 15:52:00* Test Item Value Reference Range Interpretation Comme nts Glucose Fingerstick (test code = WGLUC) 199 mg/dL 70-115 H[employer] L[employer]INATING OPERATOR And rew Svetlik IHQKNFPDIW9647-83-51 19:20:17* Test Item Value Reference Range Interpretation Comme nts APPEARANCE (test code = 8427283643) Clear Clear COLOR (test code = 1896028243) Mindy Yellow A PH (test code = 7204485376) 4.8-8.0 SP GRAVITY (test code = 1557660603) 1.003-1.030 GLU U QUAL (test code = 5543746753) 150 mg/dL Normal A BLOOD (test code = 4262320218) Negative Negative KETONES (test code = 7053726745) Negative Negative PROTEIN (test code = 2887-8) Negative Negative UROBILIN (test code = 8322920783) Normal Normal BILIRUBIN (test code = 1807332374) Negative Negative NITRITE (test code = 8062846088) Negative Negative LEUK BURTON (test code = 5202281722) Negative Negative RBC/HPF (test code = 9281510761) See_Comment [Automated Moonshadoa ge] The system which generated this result transmitted reference range: 0 - 3 HPF. The reference range was not used to interpret this result as normal/abnormal. WBC/HPF (test code = 0037831542) See_Comment [Automated Moonshadoa ge] The system which generated this result transmitted reference range: 0 - 5 HPF. The reference range was not used to interpret this result as normal/abnormal. BACTERIA (test code = 5532631790) Negative Negative MUCOUS (test code = 3117974437) Moderate Negative LPF A Lab Interpretation (test code = 15479-7) [facility] 19:18:04* Test Item Value Reference Range Interpretation Comme nts MAGNESIUM (test code = 6798862399) 1.9 mg/dL 1.7-2.4 Lab Interpretation (test cod e = 76271-5) Normal [facility]OLIC PANEL (37769)2020-11-16 19:17:44* Test Item Value Reference Range Interpretation Comme nts NA (test code = 6662576527) 138 mmol/L 135-145 K (test code = 7526411195) 3.9 mmol/L 3.5-5.0 CL (test code = 0290372504) 100 mmol/L 98-108 CO2 TOTAL (test code = 4052705097) 28 mmol/L 23-31 AGAP (test code = 4927392503) 2-16 BUN (test code = 9354897500) 15 mg/dL 7-23 GLUCOSE (test code = 5549520850) 215 mg/dL 70-110 H CREATININE (test code = 4810410610) 0.88 mg/dL 0.60-1.25 TOTAL BILI (test code = 1037077876) 1.6 mg/dL 0.1-1.1 H CALCIUM (test code = 8801561776) 9.6 mg/dL 8.6-10.6 T PROTEIN (test code = 3198311034) 7.4 g/dL 6.3-8.2 ALBUMIN (test code = 2422017486) 4.6 g/dL 3.5-5.0 ALK PHOS (test code = 5804645629) 90 U/L 34-122 ALTv (test code = 1742-6) 15 U/L 5-50 AST(SGOT) (test code = 9347569718) 17 U/L 13-40 eGFR (test code = 5487447765) mL/min/1.73m2 OSKAR (test code = OSKAR) Association [...] imaging tests). Lab Interpretation (test code = 58954-4) [facility] 19:17:23* Test Item Value Reference Range Interpretation Comme nts LIPASE (test code = 9904366400) 87 U/L 0-220 Lab Interpretation (test cod e = 75170-7) Normal [facility] [id number] 19:06:43* Test Item Value Reference Range Interpretation Comme nts WBC (test code = 6690-2) See_Comment [Automated Moonshadoa PowerDsine] The system which generated this result transmitted reference range: 4.20 - 10.70 10*3/?L. The reference range was not used to interpret this result as normal/abnormal. RBC (test code = 789-8) See_Comment H [Automated Moonshadoa ge] The system which generated this result [...] 33.6 g/dL 31.2-35.0 RDW-SD (test code = 53882-7) 39.0 fL 38.5-51.6 RDW-CV (test code = 788-0) 13.9 % 12.1-15.4 PLT (test code = 777-3) See_Comment [Automated Moonshadoa ge] The system which generated this result transmitted reference range: 150 - 328 10*3/?L. The reference range was not used to interpret this result as normal/abnormal. MPV (test code = 97191-7) 9.4 fL 9.8-13.0 L NRBC/100 WBC (test code = 4360914523) See_Comment [Automated me ssage] The system which generated this result transmitted reference range: 0.0 - 10.0 /100 WBCs. The reference range was not used to interpret this result as normal/abnormal. NRBC x10^3 (test code = 9717165495) <0.01 See_Comment [Automated messa ge] The system which generated this result transmitted reference range: 10*3/?L. The reference range was not used to interpret this result as normal/abnormal. GRAN MAT (NEUT) % (test code = 770-8) 79.9 % IMM GRAN % (test code = 7191138768) 0.60 % LYMPH % (test code = 736-9) 14.4 % MONO % (test code = 5905-5) 3.9 % EOS % (test code = 713-8) 0.6 % BASO % (test code = 706-2) 0.6 % GRAN MAT x10^3(ANC) (test code = 3510775940) 7.25 10*3/uL 1.99-6.95 H IMM GRAN x10^3 (test code = 4365213393) 0.05 10*3/uL 0.00-0.06 LYMPH x10^3 (test code = 731-0) 1.30 10*3/uL 1.09-3.23 MONO x10^3 (test code = 742-7) 0.35 10*3/uL 0.36-1.02 L EOS x10^3 (test code = 711-2) 0.05 10*3/uL 0.06-0.53 L BASO x10^3 (test code = 704-7) 0.05 10*3/uL 0.01-0.09 Lab Interpretation (test code = 68954-6) Abnormal [facility] GLUCOSE (AUTOMATED)2020-11-16 18:27:21* Test Item Value Reference Range Interpretation Comme nts POCT GLU (test code = 0894102599) 218 mg/dL 70-110 H Lab Interpretation (test cod e = 33334-5) Abnormal [facility] GLUCOSE (AUTOMATED)2020-06-29 23:37:00* Test Item Value Reference Range Interpretation Comme nts POCT GLU (test code = 8839387451) 217 mg/dL 70-110 H Lab Interpretation (test cod e = 50277-8) Abnormal [facility] GLUCOSE (AUTOMATED)2020-06-29 18:58:00* Test Item Value Reference Range Interpretation Comme [facility] POCT GLU (test code = 4037493585) 214 mg/dL 70-110 H Lab Interpretation (test cod e = 19562-0) Abnormal [facility] GLUCOSE (AUTOMATED)2020-06-29 14:15:00* Test Item Value Reference Range Interpretation Comme [facility] POCT GLU (test code = 2382193020) 182 mg/dL 70-110 H Lab Interpretation (test cod e = 23349-2) Abnormal [facility] with Ivolhpfsjfjz0489-00-53 13:44:00* Test Item Value Reference Range Interpretation Comme [facility] WBC (test code = 6690-2) See_Comment L [...] 34.7 g/dL 31.2-35 RDW-SD (test code = 64513-5) 37.0 fL 38.5-51.6 L RDW-CV (test code = 788-0) 12.2 % 12.1-15.4 PLT (test code = 777-3) See_Comment L [Automated messa ge] The system which generated this result transmitted reference range: 150 - 328 10*3/?L. The reference range was not used to interpret this result as normal/abnormal. MPV (test code = 27274-6) 9.9 fL 9.8-13 NRBC/100 WBC (test code = 9680659023) See_Comment [Automated me ssage] The system which generated this result transmitted reference range: 0.0 - 10.0 /100 WBCs. The reference range was not used to interpret this result as normal/abnormal. NRBC x10^3 (test code = 6345812555) <0.01 See_Comment [Automated messa ge] The system which generated this result transmitted reference range: 10*3/?L. The reference range was not used to interpret this result as normal/abnormal. GRAN MAT (NEUT) % (test code = 770-8) 61.0 % IMM GRAN % (test code = 8521791083) 0.30 % LYMPH % (test code = 736-9) 29.5 % MONO % (test code = 5905-5) 5.9 % EOS % (test code = 713-8) 2.4 % BASO % (test code = 706-2) 0.9 % GRAN MAT x10^3(ANC) (test code = 6660184498) 2.07 10*3/uL 1.99-6.95 IMM GRAN x10^3 (test code = 7109453957) <0.03 0-0.06 LYMPH x10^3 (test code = 731-0) 1.00 10*3/uL 1.09-3.23 L MONO x10^3 (test code = 742-7) 0.20 10*3/uL 0.36-1.02 L EOS x10^3 (test code = 711-2) 0.08 10*3/uL 0.06-0.53 BASO x10^3 (test code = 704-7) 0.03 10*3/uL 0.01-0.09 Lab Interpretation (test code = 69484-5) [facility]normal [facility]2020-[facility] 13:22:00* Test Item Value Reference Range Interpretation Comme nts TRIG (test code = 0419370882) 468 mg/dL 30-170 H Lab Interpretation (test cod e = 17755-9) [facility]normal [facility] (NA, K, CL, CO2, GLUCOSE, BUN, CREATININE, CA)2020-06-29 13:12:00* Test Item Value Reference Range Interpretation Comme nts NA (test code = 9249449839) 139 mmol/L 135-145 K (test code = 1014252791) 3.6 mmol/L 3.5-5 CL (test code = 9046796564) 104 mmol/L 98-108 CO2 TOTAL (test code = 7175741515) 25 mmol/L 23-31 AGAP (test code = 3648910916) 2-16 BUN (test code = 7657464252) 4 mg/dL 7-23 L GLUCOSE (test code = 7797683876) 163 mg/dL 70-110 H CREATININE (test code = 3596051069) 0.74 mg/dL 0.6-1.25 CALCIUM (test code = 3300844018) 9.4 mg/dL 8.6-10.6 eGFR Calculation (Non-) (test code = 0299561879) mL/min/1.73m2 eGFR Calculation () (test code = 3026928627) mL/min/1.73m2 OSKAR (test code = OSKAR) Association [...] imaging tests). Lab Interpretation (test code = 52640-3) Abnormal [facility] / [facility] - DRUG SCREEN JNGFMW5764-39-51 03:44:00* Test Item Value Reference Range Interpretation Comme nts BENZO U (test code = 7329679439) Presumptive Positive Negative A AUDREY U (test code = 8614175101) Negative Negative AMPHET (test code = 9665133654) Negative Negative THC (test code = 9952457835) Presumptive Positive Negative A Confirmation of Presumptive Positive THC result requires physician order. METHADONE (test code = [id number]) Negative Negative Meth U (test code = 6236499098) Negative Negative OPIATES (test code = 9213465682) Presumptive Positive Negative A Cocaine Metabolite (test code = 9692274169) Negative Negative PROPOXY (test code = 3412780805) Negative Negative Tric U (test code = 6086019301) Presumptive Positive Negative A Confirmation of Presumptive Positive TCA result requires physician order and this will be sent to reference lab. PCP (test code = 1463689076) Negative Negative OXYCOD (test code = 3483783073) Negative Negative OSKAR (test code = OSKAR) [...] legal testing). Lab Interpretation (test code = 27542-3) [facility] Test Item Value Reference Range Interpretation Comme nts ALCOHOL (test code = 5605504985) <10 mg/dL OSKAR (test code = OSKAR) <10 [id number] Toxic>100 Depression of [employer]IOR [employer]>[address] [facility] GLUCOSE (AUTOMATED)2020-06-28 23:30:00* Test Item Value Reference Range Interpretation Comme nts POCT GLU (test code = 0000453780) 234 mg/dL 70-110 H Lab Interpretation (test cod e = 50373-8) Abnormal [facility] GLUCOSE (AUTOMATED)2020-06-28 19:09:00* Test Item Value Reference Range Interpretation Comme nts POCT GLU (test code = 5947736156) 195 mg/dL 70-110 H Lab Interpretation (test cod e = 36374-7) Abnormal [facility] GLUCOSE (AUTOMATED)2020-06-28 18:16:00* Test Item Value Reference Range Interpretation Comme nts POCT GLU (test code = 8529846654) 113 mg/dL 70-110 H Lab Interpretation (test cod e = 38322-7) [facility] 15:[facility]* Test Item Value Reference Range Interpretation Comme nts MAGNESIUM (test code = 5043276679) 1.7 mg/dL 1.7-2.4 Lab Interpretation (test cod e = 15538-4) Normal [facility] GLUCOSE (AUTOMATED)2020-06-28 14:51:00* Test Item Value Reference Range Interpretation Comme nts POCT GLU (test code = 2605493755) 94 mg/dL 70-110 Lab Interpretation (test cod e = 95812-8) Normal [facility] with Zoomvrygftod1712-78-20 14:08:00* Test Item Value Reference Range Interpretation Comme nts WBC (test code = 6690-2) See_Comment L [Automated messa ge] The system which generated this result transmitted reference range: 4.20 - 10.70 10*3/?L. The reference range was not used to interpret this result as normal/abnormal. RBC (test code = 789-8) See_Comment [Automated [employer] ge] The system which generated this result [...] 34.7 g/dL 31.2-35 RDW-SD (test code = 96365-0) 36.2 fL 38.5-51.6 L RDW-CV (test code = 788-0) 11.9 % 12.1-15.4 L PLT (test code = 777-3) See_Comment L [Automated messa ge] The system which generated this result transmitted reference range: 150 - 328 10*3/?L. The reference range was not used to interpret this result as normal/abnormal. MPV (test code = 59201-1) 10.0 fL 9.8-13 NRBC/100 WBC (test code = 4904915085) See_Comment [Automated [employer] ssage] The system which generated this result transmitted reference range: 0.0 - 10.0 /100 WBCs. The reference range was not used to interpret this result as normal/abnormal. NRBC x10^3 (test code = 8564119468) <0.01 See_Comment [Automated [employer] ge] The system which generated this result transmitted reference range: 10*3/?L. The reference range was not used to interpret this result as normal/abnormal. GRAN MAT (NEUT) % (test code = 770-8) 59.7 % IMM GRAN % (test code = 5689337518) 0.30 % LYMPH % (test code = 736-9) 33.3 % MONO % (test code = 5905-5) 4.8 % EOS % (test code = 713-8) 1.3 % BASO % (test code = 706-2) 0.6 % GRAN MAT x10^3(ANC) (test code = 5442097638) 1.86 10*3/uL 1.99-6.95 L IMM GRAN x10^3 (test code = 0480978567) <0.03 0-0.06 LYMPH x10^3 (test code = 731-0) 1.04 10*3/uL 1.09-3.23 L MONO x10^3 (test code = 742-7) 0.15 10*3/uL 0.36-1.02 L EOS x10^3 (test code = 711-2) 0.04 10*3/uL 0.06-0.53 L BASO x10^3 (test code = 704-7) <0.03 0.01-0.09 Lab Interpretation (test code = 26077-4) Abnormal [facility] Metabolic Panel (NA, K, CL, CO2, GLUCOSE, BUN, CREATININE, CA)2020-06-28 13:02:00* Test Item Value Reference Range Interpretation Comme nts NA (test code = 8151184849) 140 mmol/L 135-145 K (test code = 3824376270) 3.0 mmol/L 3.5-5 L CL (test code = 9951091825) 106 mmol/L 98-108 CO2 TOTAL (test code = 9755855517) 25 mmol/L 23-31 AGAP (test code = 9733077690) 2-16 BUN (test code = 8110873711) <2 7-23 L GLUCOSE (test code = 4228155776) 107 mg/dL 70-110 CREATININE (test code = 6169036664) 0.59 mg/dL 0.6-1.25 L CALCIUM (test code = 5087858414) 8.9 mg/dL 8.6-10.6 eGFR Calculation (Non-) (test code = 0091800262) mL/min/1.73m2 eGFR Calculation () (test code = 9391295226) mL/min/1.73m2 OSKAR (test code = OSKAR) Association [...] imaging tests). Lab Interpretation (test code = 81011-0) [facility] 13:02:00* Test Item Value Reference Range Interpretation Comme nts TRIG (test code = 5799844852) 519 mg/dL 30-170 H Lab Interpretation (test cod e = 63341-4) [facility] 12:45:00* Test Item Value Reference Range Interpretation Comme nts LIPASE (test code = 9268814118) 27 U/L 0-220 Lab Interpretation (test cod e = 74233-0) [facility]2020-06-28 11:51:00* Test Item Value Reference Range Interpretation Comme nts POCT GLU (test code = 8200840444) 111 mg/dL 70-110 H Lab Interpretation (test cod e = 63144-0) [facility]normal [facility] COVID ZJPTZZEDEXTHUN5507-06-40 11:31:00COVID DMT InterpretationInterpretation/Recommendations: Molecular NAAT Tests for [...] all COVID-19 testingthe patient has had at [facility], including molecular NAAT testing (more commonly known as PCR testing and Rapid ID Now testing) and antibody testing. It does not take into account any testing that a patient has had outside of the [facility] medical record. [facility] LABORATORY SERVICESCOVID VqxftfyCZVH-ZuV-6 Rapid ID NOW (no units) ? ? Date ? Value ? 06/25/2020 ? Not Detected ? [facility] SERVICESUnH[facility]PO[facility] (AUTOMATED)2020-06-28 10:16:00* Test Item Value Reference Range Interpretation Comme nts POCT GLU (test code = 2568281482) 109 mg/dL 70-110 Lab Interpretation (test cod e = 93227-5) Normal [facility] GLUCOSE (AUTOMATED)2020-06-28 09:08:00* Test Item Value Reference Range Interpretation Comme nts POCT GLU (test code = 3076388556) 152 mg/dL 70-110 H Lab Interpretation (test cod e = 46973-3) Abnormal [facility] GLUCOSE (AUTOMATED)2020-06-28 06:20:00* Test Item Value Reference Range Interpretation Comme nts POCT GLU (test code = 0661159689) 84 mg/dL 70-110 Lab Interpretation (test cod e = 94171-2) Normal [facility] GLUCOSE (AUTOMATED)2020-06-28 04:47:00* Test Item Value Reference Range Interpretation Comme nts POCT GLU (test code = 1440746946) 95 mg/dL 70-110 Lab Interpretation (test cod e = 94817-1) Normal [facility] GLUCOSE (AUTOMATED)2020-06-28 03:43:00* Test Item Value Reference Range Interpretation Comme nts POCT GLU (test code = 3400112508) 123 mg/dL 70-110 H Lab Interpretation (test cod e = 57192-1) Abnormal [facility] GLUCOSE (AUTOMATED)2020-06-28 02:47:00* Test Item Value Reference Range Interpretation Comme nts POCT GLU (test code = 4197446056) 121 mg/dL 70-110 H Lab Interpretation (test cod e = 96407-8) Abnormal [facility] GLUCOSE (AUTOMATED)2020-06-28 02:17:00* Test Item Value Reference Range Interpretation Comme nts POCT GLU (test code = 4564202363) 94 mg/dL 70-110 Lab Interpretation (test cod e = 02480-5) [facility] 01:21:00* Test Item Value Reference Range Interpretation Comme nts TRIG (test code = 1512341115) 647 mg/dL 30-170 H Lab Interpretation (test cod e = 54572-6) Abnormal [facility] GLUCOSE (AUTOMATED)2020-06-27 23:29:00* Test Item Value Reference Range Interpretation Comme nts POCT GLU (test code = 5209522583) 87 mg/dL 70-110 Lab Interpretation (test cod e = 38494-7) Normal [facility] GLUCOSE (AUTOMATED)2020-06-27 21:36:00* Test Item Value Reference Range Interpretation Comme nts POCT GLU (test code = 5793769468) 85 mg/dL 70-110 Lab Interpretation (test cod e = 35204-9) Normal [facility] GLUCOSE (AUTOMATED)2020-06-27 19:55:00* Test Item Value Reference Range Interpretation Comme nts POCT GLU (test code = 8834767940) 91 mg/dL 70-110 Lab Interpretation (test cod e = 63704-3) Normal [facility] GLUCOSE (AUTOMATED)2020-06-27 19:01:00* Test Item Value Reference Range Interpretation Comme nts POCT GLU (test code = 8809014747) 125 mg/dL 70-110 H Lab Interpretation (test cod e = 65722-1) Abnormal [facility] GLUCOSE (AUTOMATED)2020-06-27 17:46:00* Test Item Value Reference Range Interpretation Comme nts POCT GLU (test code = 9780413648) 122 mg/dL 70-110 H Lab Interpretation (test cod e = 51445-3) Abnormal [facility] GLUCOSE (AUTOMATED)2020-06-27 16:56:00* Test Item Value Reference Range Interpretation Comme nts POCT GLU (test code = 3530216356) 98 mg/dL 70-110 Lab Interpretation (test cod e = 38465-7) Normal [facility] GLUCOSE (AUTOMATED)2020-06-27 14:47:00* Test Item Value Reference Range Interpretation Comme nts POCT GLU (test code = 2812241246) 209 mg/dL 70-110 H Lab Interpretation (test cod e = 45688-8) Abnormal [facility] GLUCOSE (AUTOMATED)2020-06-27 14:47:00* Test Item Value Reference Range Interpretation Comme nts POCT GLU (test code = 2918445248) 181 mg/dL 70-110 H Lab Interpretation (test cod e = 38824-7) Abnormal [facility] with Tlommspvjhkj7071-50-27 12:55:00* Test Item Value Reference Range Interpretation [...] 35.0 g/dL 31.2-35 RDW-SD (test code = 27613-9) 35.6 fL 38.5-51.6 L RDW-CV (test code = 788-0) 11.8 % 12.1-15.4 L PLT (test code = 777-3) See_Comment L [Automated messa ge] The system which generated this result transmitted reference range: 150 - 328 10*3/?L. The reference range was not used to interpret this result as normal/abnormal. MPV (test code = 57544-0) 9.9 fL 9.8-13 NRBC/100 WBC (test code = 2017779070) See_Comment [Automated [employer] ssage] The system which generated this result transmitted reference range: 0.0 - 10.0 /100 WBCs. The reference range was not used to interpret this result as normal/abnormal. NRBC x10^3 (test code = 8949377305) <0.01 See_Comment [Automated messa ge] The system which generated this result transmitted reference range: 10*3/?L. The reference range was not used to interpret this result as normal/abnormal. GRAN MAT (NEUT) % (test code = 770-8) 59.3 % IMM GRAN % (test code = 2409088279) 0.30 % LYMPH % (test code = 736-9) 33.7 % MONO % (test code = 5905-5) 4.7 % EOS % (test code = 713-8) 1.3 % BASO % (test code = 706-2) 0.7 % GRAN MAT x10^3(ANC) (test code = 0033474003) 1.78 10*3/uL 1.99-6.95 L IMM GRAN x10^3 (test code = 9491105534) <0.03 0-0.06 LYMPH x10^3 (test code = 731-0) 1.01 10*3/uL 1.09-3.23 L MONO x10^3 (test code = 742-7) 0.14 10*3/uL 0.36-1.02 L EOS x10^3 (test code = 711-2) 0.04 10*3/uL 0.06-0.53 L BASO x10^3 (test code = 704-7) <0.03 0.01-0.09 Lab Interpretation (test code = 02523-0) Abnormal [facility] GLUCOSE (AUTOMATED)2020-06-27 12:26:00* Test Item Value Reference Range Interpretation Comme nts POCT GLU (test code = 8969826324) 238 mg/dL 70-110 H Lab Interpretation (test cod e = 34264-7) Abnormal [facility] GLUCOSE (AUTOMATED)2020-06-27 12:20:00* Test Item Value Reference Range Interpretation Comme nts POCT GLU (test code = 6513854651) 216 mg/dL 70-110 H Lab Interpretation (test cod e = 32327-9) [facility] 12:03:00* Test Item Value Reference Range Interpretation Comme nts TRIG (test code = 0365266151) 810 mg/dL 30-170 H Lab Interpretation (test cod e = 70907-3) [facility] (NA, K, CL, CO2, GLUCOSE, BUN, CREATININE, CA)2020-06-27 11:56:00* Test Item Value Reference Range Interpretation Comme nts NA (test code = 9661723548) 135 mmol/L 135-145 K (test code = 6761737579) 3.6 mmol/L 3.5-5 CL (test code = 8217867335) 104 mmol/L 98-108 CO2 TOTAL (test code = 9083479045) 23 mmol/L 23-31 AGAP (test code = 3593679560) 2-16 BUN (test code = 5713877781) 5 mg/dL 7-23 L GLUCOSE (test code = 2620913404) 191 mg/dL 70-110 H CREATININE (test code = 9476785380) 0.56 mg/dL 0.6-1.25 L CALCIUM (test code = 1521940619) 8.9 mg/dL 8.6-10.6 eGFR Calculation (Non-) (test code = 7272226993) mL/min/1.73m2 eGFR Calculation () (test code = 7545997593) mL/min/1.73m2 OSKAR (test code = OSKAR) Association [...] imaging tests). Lab Interpretation (test code = 42808-6) [facility] 11:55:00* Test Item Value Reference Range Interpretation Comme nts LIPASE (test code = 5488101611) 40 U/L 0-220 Lab Interpretation (test cod e = 49202-6) Normal [facility] GLUCOSE (AUTOMATED)2020-06-27 09:09:00* Test Item Value Reference Range Interpretation Comme nts POCT GLU (test code = 8533006995) 185 mg/dL 70-110 H Lab Interpretation (test cod e = 74687-3) Abnormal [facility] GLUCOSE (AUTOMATED)2020-06-27 08:09:00* Test Item Value Reference Range Interpretation Comme nts POCT GLU (test code = 0472760966) 124 mg/dL 70-110 H Lab Interpretation (test cod e = 64276-6) Abnormal [facility] GLUCOSE (AUTOMATED)2020-06-27 07:11:00* Test Item Value Reference Range Interpretation Comme nts POCT GLU (test code = 4839381384) 104 mg/dL 70-110 Lab Interpretation (test cod e = 17495-3) Normal [facility] GLUCOSE (AUTOMATED)2020-06-27 06:04:00* Test Item Value Reference Range Interpretation Comme nts POCT GLU (test code = 3817717648) 97 mg/dL 70-110 Lab Interpretation (test cod e = 29888-1) Normal [facility] GLUCOSE (AUTOMATED)2020-06-27 04:54:00* Test Item Value Reference Range Interpretation Comme nts POCT GLU (test code = 2557682839) 54 mg/dL 70-110 L Lab Interpretation (test cod e = 99059-6) Abnormal [facility] GLUCOSE (AUTOMATED)2020-06-27 04:04:00* Test Item Value Reference Range Interpretation Comme nts POCT GLU (test code = 3974663445) 88 mg/dL 70-110 Lab Interpretation (test cod e = 16954-5) Normal [facility] GLUCOSE (AUTOMATED)2020-06-27 03:32:00* Test Item Value Reference Range Interpretation Comme nts POCT GLU (test code = 5391222838) 104 mg/dL 70-110 Lab Interpretation (test cod e = 89812-7) Normal [facility] GLUCOSE (AUTOMATED)2020-06-27 03:05:00* Test Item Value Reference Range Interpretation Comme nts POCT GLU (test code = 5438939606) 68 mg/dL 70-110 L Lab Interpretation (test cod e = 00520-0) Abnormal [facility] GLUCOSE (AUTOMATED)2020-06-27 02:05:00* Test Item Value Reference Range Interpretation Comme nts POCT GLU (test code = 4335156430) 113 mg/dL 70-110 H Lab Interpretation (test cod e = 26011-7) Abnormal [facility] GLUCOSE (AUTOMATED)2020-06-27 01:21:00* Test Item Value Reference Range Interpretation Comme nts POCT GLU (test code = 1261880551) 122 mg/dL 70-110 H Lab Interpretation (test cod e = 12981-5) Abnormal [facility] GLUCOSE (AUTOMATED)2020-06-27 00:09:00* Test Item Value Reference Range Interpretation Comme nts POCT GLU (test code = 1675618040) 125 mg/dL 70-110 H Lab Interpretation (test cod e = 86850-2) [facility] 23:47:00* Test Item Value Reference Range Interpretation Comme nts TRIG (test code = 3233232361) 1086 mg/dL 30-170 H Lab Interpretation (test cod e = 50831-1) Abnormal [facility] GLUCOSE (AUTOMATED)2020-06-26 23:12:00* Test Item Value Reference Range Interpretation Comme nts POCT GLU (test code = 0736665196) 175 mg/dL 70-110 H Lab Interpretation (test cod e = 27622-7) Abnormal [facility] GLUCOSE (AUTOMATED)2020-06-26 23:12:00* Test Item Value Reference Range Interpretation Comme nts POCT GLU (test code = 5058935139) 81 mg/dL 70-110 Lab Interpretation (test cod e = 56112-0) Normal [facility] GLUCOSE (AUTOMATED)2020-06-26 22:50:00* Test Item Value Reference Range Interpretation Comme nts POCT GLU (test code = 4197091035) 88 mg/dL 70-110 Lab Interpretation (test cod e = 74840-4) Normal [facility] GLUCOSE (AUTOMATED)2020-06-26 22:26:00* Test Item Value Reference Range Interpretation Comme [facility] POCT GLU (test code = 3013556651) 91 mg/dL 70-110 Lab Interpretation (test cod e = 62308-4) Normal [facility] GLUCOSE (AUTOMATED)2020-06-26 17:06:00* Test Item Value Reference Range Interpretation Comme [facility] POCT GLU (test code = 7164407815) 227 mg/dL 70-110 H Lab Interpretation (test cod e = 19805-2) [facility]normal [facility]ENS[facility] LIPOPROTEIN, EHYGPM0007-02-52 16:31:00* Test Item Value Reference Range Interpretation Comme [facility] dLDL Chol (test code = 72646-2) <30 See_Comment [Automated messa ge] The system which generated this result transmitted reference range: <130 mg/dL. The reference range was not used to interpret this result as normal/abnormal. Lab Interpretation (test code = 76305-8) Normal [facility]iscoLIPID PANEL (27957)(TOTAL CHOLESTEROL, TRIGLYCERIDES, HDL)2020-06-26 13:16:00* Test Item Value Reference Range Interpretation Comme nts CHOL (test code = 9074318613) 217 mg/dL 120-200 H HDL (test code = 9893313307) 13 mg/dL >40 L HDLC RATIO (test code = 1308119233) See_Comment H [Automated messa ge] The system which generated this result transmitted reference range: <=5.0. The reference range was not used to interpret this result as normal/abnormal. TRIG (test code = 1635219363) 1337 mg/dL 30-170 H LDL CHOL (test code = 70120-4) Unable to calcul ate LDL due to elevated triglyceride level greater than 400 mg/dL. VLDL (test code = 9804460046) Unable to calcul ate VLDL due to elevated triglyceride level greater than 710 mg/dL. Lab Interpretation (test code = 72048-2) [facility] 13:03:00* Test Item Value Reference Range Interpretation Comme nts LIPASE (test code = 0363917224) 60 U/L 0-220 Lab Interpretation (test cod e = 10078-0) Normal [facility]iscoGLYCOSYLATED HEMOGLOBIN (A1C)2020-06-26 12:46:00* Test Item Value Reference Range Interpretation Comme nts HGB A1C (test code = 4548-4) 9.2 % 4-6 H OSKAR (test code = OSKAR) %A1C (NGSP) Interpretation (ADA)4.8-5.6 ? ? Normal or (Non-Diabetic Range)5.7-6.4 ? ? Increased Risk (Pre-Diabetic)>6.5 ?Diabetes Indicated Lab Interpretation (test code = 50210-4) [facility]2020-06-26 11:24:00* Test Item Value Reference Range Interpretation Comme [facility] POCT GLU (test code = 8649331698) 209 mg/dL 70-110 H Lab Interpretation (test cod e = 29386-5) [facility]normal [facility] PELVIS W OHLMROWV5074-76-92 05:55:56Impression: 1. Peripancreatic inflammation, likely representing acute [...] demonstrated in the upper abdomen. RL: 2824AFC: 85221 End of Report Exam: CT Abdomen and [...] demonstrated in the upper abdomen. RL: 2824AFC: 33279Tps of Report [facility] (ID NOW RAPID TESTING)2020-06-26 03:44:00* Test Item Value Reference Range Interpretation Comme nts SARS-CoV-2 Rapid ID NOW (test code = 37319-5) Not Detected Not Detected OSKAR (test code = OSKAR) ID NOW COVID-19 As say is an isothermal nucleic acid amplification test intended for the qualitative detection of nucleic acid from SARS-CoV-2 viral RNA in nasopharyngeal (S[employer]) specimens. It is used under Emergency Use [...] clinically indicated. Lab Interpretation (test code = 84903-0) Normal [facility] METABOLIC PANEL (92082)2020-06-26 03:17:00* Test Item Value Reference Range Interpretation Comme nts NA (test code = 6566692410) 136 mmol/L 135-145 K (test code = 4897287052) 4.3 mmol/L 3.5-5 CL (test code = 9038097227) 97 mmol/L 98-108 L CO2 TOTAL (test code = 2111770941) 31 mmol/L 23-31 AGAP (test code = 4543941048) 2-16 BUN (test code = 5113555258) 7 mg/dL 7-23 GLUCOSE (test code = 8761563369) 220 mg/dL 70-110 H CREATININE (test code = 9085339458) 0.68 mg/dL 0.6-1.25 TOTAL BILI (test code = 2729256433) 1.6 mg/dL 0.1-1.1 H CALCIUM (test code = 4189122812) 9.4 mg/dL 8.6-10.6 T PROTEIN (test code = 8055084505) 7.6 g/dL 6.3-8.2 ALBUMIN (test code = 0751921435) 4.4 g/dL 3.5-5 ALK PHOS (test code = 1328872438) 103 U/L 34-122 ALTv (test code = 1742-6) 113 U/L 5-50 H AST(SGOT) (test code = 5324948220) 87 U/L 13-40 H eGFR Calculation (Non-) (test code = 9560451324) mL/min/1.73m2 eGFR Calculation () (test code = 1909176793) mL/min/1.73m2 OSKAR (test code = OSKAR) Association [...] imaging tests). Lab Interpretation (test code = 17612-5) [facility] 03:16:00* Test Item Value Reference Range Interpretation Comme nts LIPASE (test code = 5915191552) 57 U/L 0-220 Lab Interpretation (test cod e = 03640-1) Normal [facility] WITH QLND5265-05-67 03:00:00* Test Item Value Reference Range Interpretation Comme nts WBC (test code = 6690-2) See_Comment [Automated [employer]] The system which generated this result transmitted [...] g/dL 31.2-35 H RDW-SD (test code = 46879-9) 35.3 fL 38.5-51.6 L RDW-CV (test code = 788-0) 11.9 % 12.1-15.4 L PLT (test code = 777-3) See_Comment L [Automated messa ge] The system which generated this result transmitted reference range: 150 - 328 10*3/?L. The reference range was not used to interpret this result as normal/abnormal. MPV (test code = 47224-1) 9.3 fL 9.8-13 L NRBC/100 WBC (test code = 7297807482) See_Comment [Automated [employer] ssage] The system which generated this result transmitted reference range: 0.0 - 10.0 /100 WBCs. The reference range was not used to interpret this result as normal/abnormal. NRBC x10^3 (test code = 8989735590) <0.01 See_Comment [Automated messa ge] The system which generated this result transmitted reference range: 10*3/?L. The reference range was not used to interpret this result as normal/abnormal. GRAN MAT (NEUT) % (test code = 770-8) 74.6 % IMM GRAN % (test code = 8947746888) 0.30 % LYMPH % (test code = 736-9) 18.7 % MONO % (test code = 5905-5) 4.8 % EOS % (test code = 713-8) 1.1 % BASO % (test code = 706-2) 0.5 % GRAN MAT x10^3(ANC) (test code = 3221828285) 4.71 10*3/uL 1.99-6.95 IMM GRAN x10^3 (test code = 3285260276) <0.03 0-0.06 LYMPH x10^3 (test code = 731-0) 1.18 10*3/uL 1.09-3.23 MONO x10^3 (test code = 742-7) 0.30 10*3/uL 0.36-1.02 L EOS x10^3 (test code = 711-2) 0.07 10*3/uL 0.06-0.53 BASO x10^3 (test code = 704-7) 0.03 10*3/uL 0.01-0.09 Lab Interpretation (test code = 15766-7) [facility]2020-06-26 02:46:00* Test Item Value Reference Range Interpretation Comme nts POCT GLU (test code = 9798930409) 248 mg/dL 70-110 H Lab Interpretation (test cod e = 73554-1) Abnormal [facility] Notes Date/Time Note Provider Source 2023-12-13 21:39:04 9693-97-41T62:39:04F ormatting of this note might be different from the original.Patient leaving AMA,discussed risks of leaving against medical advice/final dispositon, Dr. Farris aware and notified of patient's decision.Patient encouraged to seek medical attention for any new/prolonged/worsening of symptoms and stressed importance of follow up with a medical provider as soon as possible. AMA form explained, patient signed form.IV d'cd, dressing to site.Patient leaving ambulatory with steady gait, appears in no distress 51743-2Pwptmeqaj department CrowPJ6645-44-16A40:39:37Emergency department NoteTXT1.2.840.287892.1.13.104.2.7 .2.946340|[id number] for patient vhyb79844-2KnodPZLGZVVEHZRXirvauzg d C-CDA narrative [id number] Trino Wil RN[id number] 17QOXSVGAMVAUFFZAOVKVTNQ8892-86-97 T21:39:371.2.840.140599.1.72.3.15| 1.2.840.704716.1.13.104.2.7.2.7278 [id number] Jeanniekrystian De La Torre RN [facility] 2023-12-13 19:50:27 5472-04-41X43:50:27F ormatting of this note might be different from the original.ERP with patient and pt's to assess and discuss POC/dispo. 88710-9Jipwkwlsu department OknwSW8086-28-33Y28:54:38[facility] NoteTXT1.2.840.370470.1.13.104.2.7 .2.013484|[id number] for patient bnia89751-6DivnJSZJVSYPZSSCckejsoy d C-CDA narrative [id number] HOPSON[id number] 22VMYMPUUXGOBJAUFLEBJMXM2541-29-12 T19:54:381.2.840.827123.1.72.3.15| 1.2.840.132601.1.13.104.2.7.2.7278 [id number] Bessy Jean-Baptiste RN [facility] 2023-12-13 19:13:59 1282-29-32C08:13:59F ormatting of this note might be different from the original.Obtained PIV, labs, returned pt to lobby via w/c w/ in accompaniment. NAD noted. A&OX4. RA, resp even and unlabored. 67001-5Clxycgkyg department LxbiKY4712-34-68A16:14:49[facility] department NoteTXT1.2.840.052723.1.13.104.2.7 .2.111484|[id number] for patient efsl82497-9JrlcDCBJXLHIHYHGfwxayur d C-CDA narrative text[id number] 28CCRGBSEZXTEIHNISMNODRW5618-45-23 T19:14:491.2.840.183193.1.72.3.15| 1.2.840.607975.1.13.104.2.7.2.7278 [id number] [facility] 2023-12-13 17:25:19 9793-97-10A52:25:19F ormatting of this note might be different from the original.Pt states" I have dizziness, vomiting for 1 week and when I walked I feel short of breath"No edema or swelling on both feet, denies any cardiac hx but like to be check. 44668-1Aytxgapvv department Triage qnuqCF9860-62-79N19:37:37[facility] department Triage [id number] for patient [id number] department NoteLNNARRATIVEFormatted C-CDA narrative [id number] HOPSON[id number]| [id number] Destiny Herrera RN [facility] 2021-10-03 19:14:00 [id number]+[id number]:14:00 [facility] [address] [place] [address] Orthopedics Operative Note Signed Patient: Alex Auguste Medical Record#: [id number] : 1980 Acct:[id number] Age/Sex: 41 / M ADM Date: 10/03/21 Loc: [facility] Room: Report Number: [id number] Attending Dr: Chetan Coleman MD Orthopedic Operative Note Date of Procedure: 10/03/21 Detailed Description of Procedure: Pre Op Diagnosis: Left ring finger wound defect involving matrix S61.305D Left ring finger comminuted fracture distal phalanx with bone defect S62.635D Left small finger wound defect involving matrix S61.307D Left small finger comminuted fracture distal phalanx with bone defect S62.637D Post Op Diagnosis:Left ring finger wound defect involving matrix S61.305D Left ring finger comminuted fracture distal phalanx with bone defect S62.635D Left small finger wound defect involving matrix S61.307D Left small finger comminuted fracture distal phalanx with bone defect S62.637D Procedure: Left ring finger reduction pin fixation of distal phalanx fracture 40010 Left ring finger repair of wound involving matrix 57357 Left small finger reduction pin fixation of distal phalanx fracture 51257 Left small finger repair of wound involving matrix 70531 Surgeon: Chetan Coleman MD Anesthesia: General, see anesthetic record for details of method EBL: < 50 cc, none replaced Complications: none Specimens: none Implants: Maxx wires Procedure details / Findings: Reviewed cultures with the patient and asked about his antibiotic tolerance he said that he has equally tolerating both so he is given an extended prescription of theBactrim to cover him as we move into the closed wound fixation phase of case. Intraoperatively we checked for any signs of active infection there are none including deep in the bone cleft which was given 1 final cleaning with gauze celery packer sponges and then he still continues to fade away additionalskin level dermis full-thickness necrosis on the ulnar distal border of both digits requiring sharp blade removal leaving only what is clinically apparently viable willing down the wound each time didso again on both digits with the sharp blade then looking directly through the gaping fracture cleftwe entered the 1st wire watch to come out into the cleft and then reduced that to the base held compressed stabilize and align in and advanced the wire retrograde pattern of the fragments such that the small can only take 1 wire but were able to put 2 in the ring except the radially entering wire literally is a hand pushed through the bone 80% of its depth and only the final 20% was or evena role for any turning on drill otherwise the hand place wire through the comminution showing the friability of the fracture. After both digits were checked clinically and radiographically for correct wire placement and fracture fragment reduction closures accomplished with 5 0 chromic starting on the matrix in wrapping around to the ulnar pulp managing the defect zones on both sides to minimize in the ring will need to secondarily fill in more than the small finger will. Dressingsincluded well-padded soft covering but a outer shell splint for protection DISPOSITION: Patient discharged to home. Patient's status is stable. Patient has [facility] 10-page instructional packet and a follow-up appointment. Patient instructed to call the practice number on front of packet for any questions including date and time of next encounter. Dr. Coleman has directly prescribed to patient all outpatient medications, none to be dispensed by [facility]. The specific instruction at time of hospital discharge for any medications notdirectly prescribed for patient by Dr. Coleman is that patient MUST receive all directives to either take or not take those medications from the practitioner who has originally prescribed those medications after having evaluated and diagnosed the related medical condition(s) non hand surgeryconditions that Dr. Coleman does not evaluate or treat and thus CANNOT state to either take or not take those medications. Note that the preceding text indeed includes standardized language that accurately describes my personal methods of performing this procedure and is used for research quality assurance specialist reproducibly on eachcase including that of this individual patient with any variances or unusual findings specifically noted. Signature authenticates the date, patient, surgeon, diagnoses and procedure but not the main body text where the quality of the voice recognition software product chosen for use is prone to substantial error. Dictated By: Chetan Coleman MD Dictated By: Signed By: Chetan Coleman MD 10/03/211953 DD/ 13 TD/TT: 10/03/211913 Sludge Control Attendant: LIV cc: LIV; PCPNO* Chetan Coleman MD; Pcp-Md SANDRA Barragan P.OPOPOrthopedic Operative [id number], [id number]:14:00P .OPOPAVAvailable for patient [id number]:48:4 [facility]
[2024-01-10] MEDS ORDERED: ONDANSETRON 4 MG/2 ML VIAL ONE (21:46)
[2024-01-10] MEDS ORDERED: MORPHINE 4 MG/ML SYR ONE (21:47)
[2024-01-10] MEDS ORDERED: FAMOTIDINE 20 MG/2 ML VIAL IV ONE (21:47)
[2024-01-10] MEDS ORDERED: NA CHLORIDE 0.9% 1,000 ML ONE (21:47)
[2024-01-10 22:42] LABS: Absolute Eosinophils 0.1 K/uL (0-0.5); Absolute Lymphocytes (CBC) 1.4 K/uL (0.7-4.9); Absolute Monocytes 0.3 K/uL (0.1-1.3); Absolute Neutrophil 2.2 K/uL (1.8-8.0); Basophils % 1.1 % (0-1.3); Eosinophils % 1.7 % (0-4.4); Hematocrit 39.9 % (39.6-49.0); Hemoglobin 14.2 g/dL (13.6-17.9); MCH 30.5 pg (27.0-35.0); MCHC 35.7 g/dL (32.0-36.0); MCV 85.7 fL (80-100); MPV 6.9 fL (7.6-11.3); Monocytes % 6.7 % (3.3-12.3); Neutrophils % 55.5 % (41.7-73.7); Nucleated Red Blood Cells % 0.1 % (0-0); Platelets 158 thou/uL (152-406); RBC Red Blood Cell Count 4.66 M/uL (4.33-5.43)
[2024-01-10] MEDS ORDERED: FENTANYL CITR 100 MCG/2 ML ONE (22:55)
[2024-01-10 23:22] LABS: Albumin/Globulin Ratio 1.2 (1.1-1.8); Anion Gap 11.7 mEq/L (5.0-15.0); Bilirubin Total 1.4 mg/dL (0.2-1.0); Globulin 3.3 g/dL (2.3-3.5); Protein, Total 7.3 g/dL (6.4-8.2)
[2024-01-10 23:32] LABS: Potassium 3.7 mEq/L (3.5-5.1)
[2024-01-11] MEDS ORDERED: KETOROLAC 30 MG/ML INJ ONE (00:16)
--- NOTE | 2024-01-11 01:49 | ER ---
Nurse's Notes [facility] Name: Alex Auguste Age: 43 yrs Sex: Male : 1980 Arrival Date: 01/10/2024 Time: 21:32 Bed 15 Private MD: Diagnosis: Upper abdominal pain, unspecified Presentation: 01/09 21:37 Chief complaint: Patient states: Pt c/o upper abdominal pain, nausea, vomiting, and tl4 diarrhea since 1400 today. Pt states he thinks he has pancreatitis. Coronavirus screen: At this time, the client does not indicate any symptoms associated with coronavirus-19. Ebola Screen: No symptoms or risks identified at this time. Initial Sepsis Screen: Does the patient meet any 2 criteria? No. Patient's initial sepsis screen is negative. Does the patient have a suspected source of infection? No. Patient's initial sepsis screen is negative. Risk Assessment: Do you want to hurt yourself or someone else? Patient reports no desire to harm self or others. Onset of symptoms was January 10, 2024 at 14:00. 21:37 Method Of Arrival: Ambulatory tl4 21:37 Acuity: [place] 3 tl4 Triage Assessment: 21:40 General: Appears uncomfortable, Behavior is cooperative. Pain: Complains of pain in tl4 abdomen. EENT: No signs and/or symptoms were reported regarding the EENT system. Neuro: Level of Consciousness is awake, alert, obeys commands, Oriented to person, place, time, situation, Moves all extremities. Full function Gait is steady, Speech is normal. Cardiovascular: Capillary refill < 3 seconds Patient's skin is warm and dry. Respiratory: Airway is patent Respiratory effort is even, unlabored, Respiratory pattern is regular, symmetrical, Breath sounds are clear bilaterally. GI: Reports upper abdominal pain, diarrhea, nausea, vomiting. : No signs and/or symptoms were reported regarding the genitourinary system. Derm: No signs and/or symptoms reported regarding the dermatologic system. Musculoskeletal: No signs and/or symptoms reported regarding the musculoskeletal system. Historical: - Allergies: 21:39 No Known Allergies; tl4 - PMHx: 21:39 angina pectoris; Chronic Pancreatitis; Diabetes - IDDM; GERD; High Triglycerides; tl4 Hypertensive disorder; - PSHx: 21:39 Cholecystectomy; hand; tl4 - Immunization history:: Adult Immunizations unknown. - Infectious Disease History:: Denies. - Social history:: Smoking status: Patient reports the use of cigarette tobacco products, cigars. Screenin:05 [facility] ED Fall Risk Assessment (Adult) History of falling in the last 3 months, ha1 including since admission No falls in past 3 months (0 pts) Confusion or Disorientation No (0 pts) Intoxicated or Sedated No (0 pts) Impaired Gait No (0 pts) Mobility Assist Device Used No (0 pt) Altered Elimination No (0 pt) Score/Fall Risk Level 0 - 2 = Low Risk Oriented to surroundings, Maintained a safe environment, Educated pt \T\ family on fall prevention, incl call for assistance when getting out of bed, Hourly rounding (assess needs \T\ fall precautionary measures) done. Abuse screen: Denies threats or abuse. Denies injuries from another. Nutritional screening: No deficits noted. Tuberculosis screening: No symptoms or risk factors identified. Assessment: 21:41 General: Appears uncomfortable, Behavior is calm, cooperative. Pain: Complains of pain ha1 in epigastric area Pain does not radiate. Pain currently is 10 out of 10 on a pain scale. Quality of pain is described as burning, crampy, pressure, throbbing, Pain began suddenly. Neuro: Level of Consciousness is awake, alert, obeys commands, Oriented to person, place, time, situation. Cardiovascular: Heart tones S1 S2 present Capillary refill < 3 seconds Patient's skin is warm and dry. Respiratory: Airway is patent Respiratory effort is even, unlabored, Respiratory pattern is regular, symmetrical. GI: Abdomen is round non-distended, Bowel sounds present X 4 quads. Reports epigastric pain, nausea, vomiting. : No signs and/or symptoms were reported regarding the genitourinary system. Derm: Skin is pink, warm \T\ dry. Musculoskeletal: Circulation, motion, and sensation intact. Range of motion: intact in all extremities. 23:00 Reassessment: Patient states symptoms have not improved. tm6 23:33 Reassessment: Patient and/or family updated on plan of care and expected duration. Pain ha1 level reassessed. Patient is alert, oriented x 3, equal unlabored respirations, skin warm/dry/pink. pain 9/10. Notified care provider Patient states symptoms have not improved. 07/02 00:20 Reassessment: pain 9/10. Respiratory: Airway is patent Respiratory effort is even, ha1 unlabored, Respiratory pattern is regular, symmetrical. 00:20 Reassessment: notified care provider. ha1 01:20 Reassessment: Patient and/or family updated on plan of care and expected duration. Pain ha1 level reassessed. Patient is alert, oriented x 3, equal unlabored respirations, skin warm/dry/pink. 02:03 Reassessment: Patient and/or family updated on plan of care and expected duration. Pain ha1 level reassessed. Patient is alert, oriented x 3, equal unlabored respirations, skin warm/dry/pink. Vital Signs: 01/09 21:37 BP 146 / 93; Pulse 92; Resp 18; Temp 98.1(TE); Pulse Ox 97% on R/A; Weight 83.91 kg; tl4 Height 5 ft. 10 in. ; Pain 10/10; 23:00 BP 144 / 85; Pulse 80; Pulse Ox 99% on R/A; Pain 10/10; tm6 23:34 BP 154 / 96; Pulse 80; Resp 17 S; Pulse Ox 99% on R/A; ha1 01/10 00:30 BP 129 / 84; Pulse 77; Resp 17 S; Pulse Ox 99% on R/A; ha1 01:30 BP 118 / 88; Pulse 70; Resp 17 S; Pulse Ox 98% on R/A; ha1 01/09 21:37 Body Mass Index 26.54 (83.91 kg, 177.8 cm) tl4 01/09 21:37 Pain Scale: Adult tl4 23:00 Pain Scale: Adult tm6 ED Course: 01/09 21:33 Patient arrived in ED. im 21:35 La Arciniega FNP-C is PHCP. kb 21:35 Moises Bocanegra MD is Attending Physician. kb 21:39 Triage completed. tl4 21:41 Arm band placed on right wrist. tl4 21:41 Patient has correct armband on for positive identification. Placed in gown. Bed in low ha1 position. Call light in reach. Side rails up X 1. Adult w/ patient. 21:43 Isabel Hughes, KECIA is Primary Nurse. ha1 21:50 Missed attempt(s): 20 gauge in right antecubital area. Bleeding controlled, band aid ha1 applied, catheter tip intact. 22:15 Missed attempt(s): 20 gauge in left antecubital area. rc3 22:20 Inserted saline lock: 20 gauge in right antecubital area, using aseptic technique. ha1 Blood collected. 22:31 CBC with Diff Sent. ha1 22:31 CMP Sent. ha1 22:31 Lipase Sent. ha1 23:00 Provided Education on: medication administration . ha1 23:59 Abdomen In Process Unspecified. EDMS 01/10 02:02 No provider procedures requiring assistance completed. IV discontinued, intact, ha1 bleeding controlled, No redness/swelling at site. Pressure dressing applied. Administered Medications: 01/09 22:20 Drug: NS 0.9% IV 1000 ml IV at 1 bolus Per protocol; 1000 mL bolus Route: IV; Rate: 1 ha1 bolus; Site: right antecubital; 01/10 00:00 Follow up: Response: No adverse reaction; IV Status: Completed infusion; IV Intake: ha1 1000ml 01/09 22:20 Drug: Famotidine IVP 20 mg IVP once; dilute with 10 mL 0.9% NaCl; give over 2 minutes ha1 Route: IVP; Site: right antecubital; 23:00 Follow up: Response: No adverse reaction 1 22:24 Drug: Ondansetron IVP 4 mg IVP once; over 2 minutes Route: IVP; Site: right antecubital;ha1 23:00 Follow up: Response: No adverse reaction ha1 22:26 Drug: morphine IVP or IV 4 mg IVP once over 4 mins Route: IVP; Infused Over: 4 mins; ha1 Site: right antecubital; 23:00 Follow up: Response: No adverse reaction; Pain is unchanged, physician notified; RASS: ha1 Alert and Calm (0) 22:59 Drug: fentaNYL (PF) IVP 25 mcg IVP once Route: IVP; Site: right antecubital; 6 23:20 Follow up: Response: No adverse reaction; Pain is unchanged, physician notified; RASS: ha1 Alert and Calm (0) 01/10 00:25 Drug: Ketorolac IVP 15 mg IVP once Route: IVP; Site: right antecubital; ha1 01:00 Follow up: Response: No adverse reaction; Pain is unchanged, physician notified ha1 Medication: 01/09 22:06 VIS not applicable for this client. ha1 Intake: 01/10 00:00 IV: 1000ml; Total: 1000ml. ha1 Outcome: 01:49 Discharge ordered by MD. daugherty 02:02 Discharged to home ambulatory, ha1 02:02 Condition: stable 02:02 Discharge instructions given to patient, Instructed on discharge instructions, follow up and referral plans. Demonstrated understanding of instructions, follow-up care, 02:07 Patient left the ED. ha1 Signatures: Dispatcher [employer] EDUT La Arciniega, SAMPLER RADIOACTIVE WASTE-C SAMPLER RADIOACTIVE WASTE-Isabel Jenkins RN RN ha1 Mojgan Iqbal Tawney RN RN tm6 Lyndon Lopes RN RN tl4 Adelina Broussard3
--- NOTE | 2024-01-11 01:49 | EDPHYS ---
Physician Documentation [facility] Name: Alex Auguste Age: 43 yrs Sex: Male : 1980 Arrival Date: 01/10/2024 Time: 21:32 Bed 15 Private MD: ED Physician Moises Bocanegra HPI: 01/10 01:00 This 43 yrs old Male presents to ER via Ambulatory with complaints of kb Nausea/Vomiting/Diarrhea, Abdominal Pain. 01:00 Pt is a 43 year old male who presents for n/v/d and upper abd pain that started around kb 1400 today. states it feels similar to previous pancreatitis episodes. . Historical: - Allergies: 01/09 21:39 No Known Allergies; tl4 - PMHx: 21:39 angina pectoris; Chronic Pancreatitis; Diabetes - IDDM; GERD; High Triglycerides; tl4 Hypertensive disorder; - PSHx: 21:39 Cholecystectomy; hand; tl4 - Immunization history:: Adult Immunizations unknown. - Infectious Disease History:: Denies. - Social history:: Smoking status: Patient reports the use of cigarette tobacco products, cigars. ROS: 01/10 01:00 Constitutional: As per HPI kb Exam: 01:01 Constitutional: This is a well developed, well nourished patient who is awake, alert, kb and in no acute distress. Head/Face: Normocephalic, atraumatic. ENT: Moist Mucous membranes Cardiovascular: Regular rate Respiratory: Respirations even and unlabored. No increased work of breathing. Talking in full sentences Skin: Warm, dry with normal turgor. Normal color. MS/ Extremity: Pulses equal, no cyanosis. Neurovascular intact. Full, normal range of motion. Neuro: Awake and alert, GCS 15, oriented to person, place, time, and situation. Moves all extremities. Normal gait. 01:01 Abdomen/GI: Inspection: abdomen appears normal, Bowel sounds: normal, Palpation: soft, in all quadrants, mild abdominal tenderness, in the right upper quadrant and left upper quadrant, moderate abdominal tenderness, in the epigastric area, Vital Signs: 01/09 21:37 BP 146 / 93; Pulse 92; Resp 18; Temp 98.1(TE); Pulse Ox 97% on R/A; Weight 83.91 kg; tl4 Height 5 ft. 10 in. ; Pain 10/10; 23:00 BP 144 / 85; Pulse 80; Pulse Ox 99% on R/A; Pain 10/10; tm6 23:34 BP 154 / 96; Pulse 80; Resp 17 S; Pulse Ox 99% on R/A; ha1 01/10 00:30 BP 129 / 84; Pulse 77; Resp 17 S; Pulse Ox 99% on R/A; ha1 01:30 BP 118 / 88; Pulse 70; Resp 17 S; Pulse Ox 98% on R/A; ha1 01/09 21:37 Body Mass Index 26.54 (83.91 kg, 177.8 cm) tl4 01/09 21:37 Pain Scale: Adult tl4 23:00 Pain Scale: Adult tm6 MDM: 01/09 21:35 Patient medically screened. kb 01/10 01:48 Differential diagnosis: Nonspecific abd pain, gastritis, pancreatitis. Data reviewed: kb vital signs, nurses notes. Consideration of Admission/Observation Escalation of care including admission/observation considered. Counseling: I had a detailed discussion with the patient and/or guardian regarding the historical points, exam findings, and any diagnostic results supporting the discharge/admit diagnosis, lab results, radiology results, the need for outpatient follow up, a family practitioner, a heel blacker, to return to the emergency department if symptoms worsen or persist or if there are any questions or concerns that arise at home. 01/09 21:38 Order name: CBC with Diff; Complete Time: 23:05 kb 01/09 21:38 Order name: CMP; Complete Time: 23:32 kb 01/09 21:38 Order name: Lipase; Complete Time: 23:32 kb 01/09 22:12 Order name: Abdomen EDMS 01/09 21:38 Order name: IV Saline Lock; Complete Time: 22:31 kb 01/09 21:38 Order name: Labs collected and sent; Complete Time: 22:31 kb Administered Medications: 01/09 22:20 Drug: NS 0.9% IV 1000 ml IV at 1 bolus Per protocol; 1000 mL bolus Route: IV; Rate: 1 ha1 bolus; Site: right antecubital; 01/10 00:00 Follow up: Response: No adverse reaction; IV Status: Completed infusion; IV Intake: ha1 1000ml 01/09 22:20 Drug: Famotidine IVP 20 mg IVP once; dilute with 10 mL 0.9% NaCl; give over 2 minutes ha1 Route: IVP; Site: right antecubital; 23:00 Follow up: Response: No adverse reaction ha1 22:24 Drug: Ondansetron IVP 4 mg IVP once; over 2 minutes Route: IVP; Site: right antecubital;ha1 23:00 Follow up: Response: No adverse reaction ha1 22:26 Drug: morphine IVP or IV 4 mg IVP once over 4 mins Route: IVP; Infused Over: 4 mins; ha1 Site: right antecubital; 23:00 Follow up: Response: No adverse reaction; Pain is unchanged, physician notified; RASS: ha1 Alert and Calm (0) 22:59 Drug: fentaNYL (PF) IVP 25 mcg IVP once Route: IVP; Site: right antecubital; tm6 23:20 Follow up: Response: No adverse reaction; Pain is unchanged, physician notified; RASS: ha1 Alert and Calm (0) 01/10 00:25 Drug: Ketorolac IVP 15 mg IVP once Route: IVP; Site: right antecubital; ha1 01:00 Follow up: Response: No adverse reaction; Pain is unchanged, physician notified ha1 Disposition: 05:23 Co-signature as Attending Physician, Moises Bocanegra MD I agree with the assessment sp4 and plan of care. I reviewed the patient's care provided by the Advanced Practice Provider and agree with the diagnosis and treatment plan. Disposition Summary: 01/11/24 01:49 Discharge Ordered Notes: Location: Home kb Condition: Stable kb Diagnosis - Upper abdominal pain, unspecified kb Followup: kb - With: Emergency Department - When: As needed - Reason: Worsening of condition Followup: kb - With: Private Physician - When: 2 - 3 days - Reason: Recheck today's complaints, Continuance of care, Re-evaluation by your physician Discharge Instructions: - Discharge Summary Sheet kb - Abdominal Pain, Adult, [id number] kb Forms: - Medication Reconciliation Form kb - Antibiotic Education kb - Prescription Opioid Use kb - Patient Portal Instructions kb - Leadership Thank You Letter kb Signatures: Dispatcher [employer] La Méndez, AYANA QUISPE-Isabel Jenkins RN RN [facility] Moises Bocanegra MD MD sp4 John Evans RN RN tm6 Lyndon Lopes RN RN tl4 Corrections: (The following items were deleted from the chart) 01/09 21:39 21:39 Abdomen Pelvis W Con+CT.RAD.BRZ ordered. EDMS EDMS
[2024-01-11 02:45] VITALS: BP 118/88; TEMP 98.1; O2SAT 98
--- NOTE | 2024-01-11 17:06 | RAD REPORT ---
EXAM DESCRIPTION: CT - Abdomen Pelvis W Contrast - 01/11/2024 6:25 am CLINICAL HISTORY: Male, 43 years old, ABD PAIN COMPARISON: Most recent CT abdomen/pelvis 11/24/2023 TECHNIQUE: CT acquisition of the abdomen and pelvis following the administration of IV contrast. Cor onal and sagittal reformatted images provided. This exam was performed according to departmental dose -optimization program which includes automated exposure control, adjustment of the mA and/or kV accor ding to patient size, and/or use of iterative reconstruction technique. FINDINGS: SUPPORTIVE DEVICES: None. LOWER CHEST: Mild basilar scarring/atelectasis. Unremarkable imaged heart. ABDOMEN AND PELVIS: Liver: Diffuse hypoenhancement relative to the spleen. Mildly enlarged size. Subtle contour nodularit y along the inferior margin. Gallbladder and bile ducts: Postcholecystectomy changes. Pancreas: No significant inflammation. Unchanged thin-walled cystic lesion of the tail with mild wall calcification measuring 3.5 x 3.2 cm axially. Spleen: Moderately enlarged. Adrenal glands: Normal. Kidneys and ureters: Normal. Bladder: Nondistended without evident abnormality. Reproductive organs: Unremarkable as visualized. GI tract: The distal esophagus, stomach, duodenum and small bowel are unremarkable. Normal appendix. Colonic diverticulosis without diverticulitis. Circumferential rectal wall prominence. Lymph nodes: No evident adenopathy. Peritoneum: No evidence of ascites, fluid collection, or free air. Redemonstrated mild nonfocal poste rior mesenteric soft tissue stranding. Abdominal wall: No significant hernia. Vessels: Redemonstrated extensive gastric varices. Mild atherosclerosis. MUSCULOSKELETAL: No acute osseous abnormality. Degenerative change of the spine and pelvis. IMPRESSION: 1. Circumferential rectal wall prominence may be due to under distention, hepatic srini estion, or proctitis. Correlate with symptoms. 2. Uncomplicated colonic diverticulosis. 3. Evidence of mild hepatic cirrhosis/fibrosis with significant splenic varices redemonstrated. Unc hanged mildly complex pancreatic cystic lesion measuring up to 3.5 cm, follow-up per critical guideli jorge and see recommendation from prior exam. Electronically signed by: Merrick Reagan MD 01/11/2024 01:23 AM CDT RP Due to temporary technical issues with the PACS/Fluency reporting system, reports are being signed by the in house radiologists without review as a courtesy to insure prompt reporting. The interpreting radiologist is fully responsible for the content of the report
== END 2024-01-11 02:07 | disposition home or self-care (01) ==
LOC: ER 21:32
DX: R10.816 Epigastric abdominal tenderness (principal); R11.2 Nausea with vomiting, unspecified; Z72.0 Tobacco use
CPT/HCPCS: 85025; 36415; 83690; 80053; 74177; Q9967; J3010; J2405; J7030

== ENCOUNTER 2024-05-02 21:03 | Emergency (ER) | payer BC ==
--- OUTSIDE RECORDS SUMMARY | 2024-05-02 21:09 | XMS REPORT | Continuity of Care Document ---
Author Name Unknown Address [address] [facility] [place] [address] [facility] Address [address] [facility] [place] [address] Care Team Providers Care Bistro Attendant Name Role Phone Briana Hughes Primary Care Physician [phone] Chetan Coleman Attending Clinician Unavailable Doctor Unassigned, [place] Attending Clinician U Briana Lebron Attending Clinician [phone] Cole Guan MD Attending Clinician FORTINO FARRIS Attending Clinician Unavailable Fortino Farris MD Attending Clinician [phone] KellyNader Carter Attending Clinician [phone] Doctor Unassigned, [place] Attending Clinician U Lillian Pickett Attending Clinician [phone] Madeline MCDONNELL, Annita Huizar Attending Clinician [phone] Concepción FLORES, Kofi Justice Attending Clinician [phone] Laurence Jose MD Attending Clinician [phone] COLE GUAN Attending Clinician Unavailabl e FORTINO FARRIS Admitting Clinician Unavailable Rebeca FLORES, Laurence Admitting Clinician [phone] Payers Payer Name Policy Type Policy Number Effective Date Expirati on Date Source [facility] [id number] 2019 00:00:00 Problems Condition Name Condition Details Condition Category Status Onset Date Resolution Date Last Treatment Date Treating Clinician Comments Source Acute on chronic pancreatit is Acute on chronic pancreatit is Disease Active 2019-0716 00:00: 00 [facility] Hypertrigl yceridemia Hypertrigl yceridemia Disease Active 12-29 00:00: 00 [facility] Type 2 diabetes mellitus with complicati on, with long-term current use of insulin Type 2 diabetes mellitus with complicati on, with long-term current use of insulin Disease Active 12-29 00:00: 00 [facility] Type 2 diabetes mellitus with complicati on, with long-term current use of insulin Type 2 diabetes mellitus with complicati on, with long-term current use of insulin Disease Active 12-29 00:00: 00 [facility] Diplopia Diplopia Disease Active 2014-07 00:00: 00 [facility] Diabetes mellitus type 2, uncontroll ed, without complicati ons Diabetes mellitus type 2, uncontroll ed, without complicati ons Disease Active 04-04 00:00: 00 Overview: Formattin g of this note might be different from the original. ICD10 Diagnosis Term Cosmetologist Utility [facility] HLD (hyperlipi demia) HLD (hyperlipi demia) Disease Active 04-04 00:00: 00 [facility] Essential hypertensi on, benign Essential hypertensi on, benign Disease Active 04-04 00:00: 00 [facility] Vitamin D deficiency Vitamin D deficiency Disease Active 04-04 00:00: 00 Overview: Formattin g of this note might be different from the original. ICD10 Diagnosis Term Cosmetologist Utility [facility] Allergies, Adverse Reactions, Alerts Allergy Name Allergy Type Status Severity Reaction(s) Onset Date Inactive Date Treating Clinician Comments Source No Known Drug Allergie s DA Active U 10-03 00:00: 00 [facility] No Known Drug Allergie s DA Active U 3-21 00:00[facility] 00 [facility] No Known Drug Allergie s DA Active U 3-17 00:00: 00 [facility] NO KNOWN ALLERGIE S Drug Class Active [facility] Social History Social Habit Start Date Stop Date Quantity Comments Source History of tobacco use Snuff User [facility] Exposure to SARS-CoV-2 (event) Not sure [facility] Alcohol intake 2020-06-25 00:00:00 2020-06-25 00:00:00 Current non-drinker of alcohol (finding) [facility] Alcoholic beverage intake 2020-06-25 00:00:00 2020-06-25 00:00:00 0 /d [facility] History of Social function 2020-06-25 00:00:00 2020-06-25 00:00:00 [facility] Tobacco use and exposure 2015-04-22 00:00:00 2015-04-22 00:00:00 User of smokeless tobacco [facility] Sex assigned at 1980 00:00:00 1980 00:00:00 [facility] Smoking Status Start Date Stop Date Source Never smoked tobacco [facility] Medications Ordered Medication Name Filled Medication Name Start Date Stop Date Current Medication? Ordering Clinician Indication Dosage Frequency Signature (SIG) Comments Components Source insulin regular human (HUMULIN R) injection 6 Units 12-13 03:00: 00 12-13 02:04 :00 No 6U 6 Units, Slow IV Push, ONCE, 1 dose, On Wed12/13/23 at 2200, STAT, Indication for insulin: Hyperglyce adam [facility] ondansetron (ZOFRAN (PF)) injection 4 mg 12-13 03:00: 00 12-13 02:05 :00 No 4mg 4 mg, Slow IV Push, ONCE, 1 dose, On Wed12/13/23 at 2200, ANA MARIA [facility] morpHINE (4 mg/mL) injection 4 mg 12-13 02:00: 00 12-13 02:06 :00 No 4mg 4 mg, Slow IV Push, ONCE, 1 dose, On Wed12/13/23 at 2100, STAT [facility] insulin regular human (HUMULIN R) injection 6 Units 12-13 02:00: 00 12-13 01:19 :00 No 6U 6 Units, Slow IV Push, ONCE, 1 dose, On Wed12/13/23 at 2100, STAT, Indication for insulin: Hyperglyce adam [facility] NaCl 0.9% (NS) bolus infusion 1,000 mL 12-13 02:00: 00 12-13 02:34 :00 No 1000mL at 999 mL/hr, 1,000 mL, IV Infusion, ONCE, 1 dose, On Wed12/13/23 at 2100, STAT [facility] iopamidol (ISOVUE 370-500 mL) injection 79 mL 12-13 01:05: 00 12-13 01:05 :00 No [id number] 79mL 79 mL, Intravenou s, ONCE, 1 dose, On Wed12/13/23 at 2015, Routine [facility] morpHINE injection 2 mg 11-16 22:00: 00 11-16 22:00 :00 No 2mg 2 mg, Slow IV Push, ONCE, 1 dose, 11/16/20 at 1700, STAT [facility] predniSONE (DELTASONE) tablet 20 mg 11-16 21:30: 00 11-16 20:49 :00 No 20mg 20 mg, Oral, ONCE, 1 dose, 11/16/20 at 1630, ANA MARIA [facility] amoxicillin -clavulanat e (AUGMENTIN) 875-125 mg per tablet 1 tablet 11-16 21:30: 00 11-16 20:49 :00 No 1{tbl} 1 tablet, Oral, ONCE, 1 dose, 11/16/20 at 1630, Routine
Reason for Anti-Infec tive: Documented Infection< br>Documen j luis Infection Site: Abdominal< br>Duratio n of Therapy: 10 days [facility] iopamidol (ISOVUE 370-500 mL) injection 100 mL 11-16 20:45: 00 11-16 19:30 :00 No [id number] 100mL 100 mL, Intravenou s, ONCE, 1 dose, 11/16/20 at 1545, Routine [facility] morpHINE injection 4 mg 11-16 20:15: 00 11-16 19:12 :00 No 4mg 4 mg, Slow IV Push, ONCE, 1 dose, 11/16/20 at 1515, STAT [facility] ondansetron (ZOFRAN (PF)) injection 4 mg 11-16 19:30: 00 11-16 18:28 :00 No 4mg 4 mg, Slow IV Push, ONCE, 1 dose, 11/16/20 at 1430, ANA MARIA [facility] NaCl 0.9% (NS) bolus infusion 1,000 mL 11-16 19:30: 00 11-16 21:16 :00 No 1000mL at 999 mL/hr, 1,000 mL, IV Infusion, ONCE, 1 dose, 11/16/20 at 1430, STAT [facility] amoxicillin -clavulanat e 875-125 mg per tablet 11-16 00:00: 00 Yes [id number] 1{tbl} Take 1 tablet by mouth every 12 (twelve) hours. [facility] predniSONE 20 mg tablet 11-16 00:00: 00 Yes [id number] 1 PO BID x 4 days [facility] ibuprofen (IBU) tablet 800 mg 07-28 23:30: 00 07-28 22:44 :00 No 800mg 800 mg, Oral, ONCE, 1 dose, 07/28/20 at 1730, ANA MARIA [facility] Diclofenac Sodium (VOLTAREN) 1 % gel 07-28 00:00: 00 Yes [id number] Apply to area(s) 2 (two) times daily. [facility] insulin glargine (LANTUS U-100) injection 36 Units 2019-07 03:00: 00 Yes 36U 36 Units, Subcutaneo us, QHS, First dose (after last modificati on) on 06/29/20 at 2100, Until Discontinu ed, Routine [facility] gemfibroziL 600 mg tablet 2019-07 01:33: 08 Yes 600mg Take 600 mg by mouth 2 (two) times daily before breakfast and dinner. [facility] metoprolol tartrate 25 mg tablet 2019-07 01:33: 08 Yes 25mg Take 25 mg by mouth 2 (two) times daily. [facility] Pantoprazol e 40 mg delayed-rel ease suspension 2019-07 01:33: 08 Yes 40mg Take 40 mg by mouth daily. [facility] busPIRone 10 mg tablet 2019-07 01:33: 08 Yes 10mg Take 10 mg by mouth 2 (two) times daily. [facility] niacin 500 mg tablet 2019-07 01:33: 08 Yes 500mg Take 500 mg by mouth daily with breakfast. [facility] lipase-prot ease-amylas e (CREON) 36,000-114, 000- 180,000 unit CpDR 2019-07 01:33: 08 Yes [id number] Take 36,000 Units by mouth with all meals. Take 2 capsules by mouth with meals and 1 with each snack. [facility] losartan 25 mg tablet 2019-07 01:33: 08 Yes 25mg Take 25 mg by mouth daily. [facility] vortioxetin e 10 mg Tab 2019-07 01:33: 08 Yes 10mg Take 10 mg by mouth at bedtime. [facility] gemfibroziL 600 mg tablet 2019-07 19:33: 08 Yes 600mg Take 600 mg by mouth 2 (two) times daily before breakfast and dinner. [facility] metoprolol tartrate 25 mg tablet 2019-07 19:33: 08 Yes 25mg Take 25 mg by mouth 2 (two) times daily. [facility] Pantoprazol e 40 mg delayed-rel ease suspension 2019-07 19:33: 08 Yes 40mg Take 40 mg by mouth daily. [facility] busPIRone 10 mg tablet 2019-07 19:33: 08 Yes 10mg Take 10 mg by mouth 2 (two) times daily. [facility] niacin 500 mg tablet 2019-07 19:33: 08 Yes 500mg Take 500 mg by mouth daily with breakfast. [facility] lipase-prot ease-amylas e (CREON) 36,000-114, 000- 180,000 unit CpDR 2019-07 19:33: 08 Yes [id number] Take 36,000 Units by mouth with all meals. Take 2 capsules by mouth with meals and 1 with each snack. [facility] losartan 25 mg tablet 2019-07 19:33: 08 Yes 25mg Take 25 mg by mouth daily. [facility] vortioxetin e 10 mg Tab 2019-07 19:33: 08 Yes 10mg Take 10 mg by mouth at bedtime. [facility] insulin glargine (LANTUS U-100) injection 15 Units 2019-07 15:00: 00 06-29 14:07 :00 No 15U 15 Units, Subcutaneo us, ONCE, 1 dose, 06/29/20 at 0900, Routine [facility] morpHINE injection 2 mg 2019-07 08:15: 00 Yes 2mg 2 mg, Slow IV Push, Q6HPRN, Starting 06/29/20 at 0215, Until Discontinu ed, Routine, Pain (scale 7-10) [facility] atorvastati n 40 mg tablet 2019-07 00:00: 00 07-30 05:59 :00 No [id number] 40mg Take 1 tablet by mouth at bedtime for 30 days. [facility] haloperidol lactate (HALDOL) injection 5 mg 2019-07 22:30: 00 06-28 22:51 :00 No 5mg 5 mg, Slow IV Push, ONCE NOW, 1 dose, 06/28/20 at 1630, Routine [facility] LORazepam (ATIVAN) injection 1 mg 2019-07 21:00: 00 06-28 20:16 :00 No 1mg 1 mg, Slow IV Push, ONCE, 1 dose, Wed06/28/20 at 1500, Routine [facility] FLUoxetine (PROZAC) capsule 20 mg 2019-07 20:30: 00 Yes 20mg 20 mg, Oral, DAILY, First dose on Wed06/28/20 at 1430, Until Discontinu ed, Routine [facility] NaCl 0.9% (NS) IV infusion 1,000 mL 2019-07 14:30: 00 Yes 1000mL at 100 mL/hr, IV Infusion, CONTINUOUS , Starting Wed06/28/20 at 0830, Until Discontinu ed, Routine [facility] KCL (KLOR-CON M20) tablet 40 mEq 2019-07 14:30: 00 06-28 14:38 :00 No 40meq 40 mEq, Oral, ONCE, 1 dose, Wed06/28/20 at 0830, Routine [facility] Sliding Scale Insulin-Reg ular + Fsbg Testing 2019-07 13:30: 00 Yes Subcutaneo us, AC+HS, First dose on Wed06/28/20 at 0730, Until Discontinu ed, Routine [facility] glucagon (GLUCAGEN DIAGNOSTIC KIT) injection 1 mg 2019-07 13:23: 08 Yes 1mg 1 mg, Intramuscu lar, PRN, Starting Wed06/28/20 at 0723, Until Discontinu ed, ANA MARIA, Blood Glucose < or = 70 mg/dL and patient is unable to swallow or has mental changes. [facility] dextrose 50 % in water (D50W) injection 25 mL 2019-07 13:23: 08 Yes 25mL 25 mL, Slow IV Push, PRN, Starting Wed06/28/20 at 0723, Until Discontinu ed, ANA MARIA, Blood Glucose < or = 70 mg/dL and patient is unable to swallow or has mental status changes. [facility] dextrose 50 % in water (D50W) injection 50 mL 2019-07 07:00: 00 06-28 06:00 :00 No 50mL 50 mL, Slow IV Push, ONCE, 1 dose, Wed06/28/20 at 0100, ANA MARIA [facility] metoprolol tartrate (LOPRESSOR) tablet 25 mg 2019-07 02:00: 00 Yes 25mg 25 mg, Oral, BID, First dose on Wed06/27/20 at 2000, Until Discontinu ed, Routine [facility] omega 3-dha-epa-f beckie oil (FISH OIL) capsule 1,000 mg 2019-07 20:00: 00 Yes 1000mg 1,000 mg, Oral, TID, First dose on Wed06/27/20 at 1400, Until Discontinu ed, Routine
Reason for non-formul caitlyn use: PATIENT CURRENTLY TAKING NONFORMULA RY PRODUCT
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
If glucose < 250, start D5W and titrate to keep glucose 100-180
[facility] atorvastati n (LIPITOR) tablet 40 mg 2019-07 03:00: 00 Yes 40mg 40 mg, Oral, QHS, First dose on Wed06/26/20 at 2100, Until Discontinu ed, Routine [facility] gemfibroziL (LOPID) tablet 600 mg 2019-07 02:00: 00 Yes 600mg 600 mg, Oral, BID, First dose on Wed06/26/20 at 2000, Until Discontinu ed, Routine [facility] busPIRone (BUSPAR) tablet 10 mg 2019-07 02:00: 00 Yes 10mg 10 mg, Oral, BID, First dose on Wed06/26/20 at 2000, Until Discontinu ed, Routine Univers [facility] enoxaparin (LOVENOX) injection 40 mg 2019-07 23:00: 00 Yes 40mg 40 mg, Subcutaneo us, DAILY, First dose on Wed06/26/20 at 1700, Until Discontinu ed, Routine [facility] morpHINE injection 4 mg 2019-07 16:30: 00 06-27 07:29 :00 No 4mg 4 mg, Slow IV Push, Q3HPRN, Starting Wed06/26/20 at 1030, Until Padmini 06/27/20 at 0129, Routine, Pain (scale 7-10) [facility] insulin regular in 0.9 % NaCl (MYXREDLIN) 100 unit/100 mL (1 unit/mL) RTU IV infusion 2019-07 16:16: 21 06-27 11:12 :30 No 8U/h 8 Units/hr (8 mL/hr), IV Infusion, TITRATE, Notify hospitalis t to adjust insulin rate based on Triglyceri de level, Starting Wed06/26/20 at 1016
If glucose < 250, start D5W and titrate to keep glucose 100-180
[facility] proCHLORper azine (COMPAZINE) 10 mg in NaCl 0.9% (NS) piggyback 2019-07 16:15: 52 Yes 10mg 10 mg, IV Piggyback, Q4HPRN, Starting Wed06/26/20 at 1015, Until Discontinu ed, 50 mL [facility] ketorolac (TORADOL) injection 30 mg 2019-07 16:15: 35 Yes 30mg 30 mg, Slow IV Push, Q6HPRN, Starting Wed06/26/20 at 1015, Until Discontinu ed, Routine, Pain (scale 4-6)
Fa culty member approving Restricted medication : ELLIS ALMEIDA [facility] NaCl 0.9% (NS) IV infusion 1,000 mL 2019-07 14:15: 00 06-28 05:51 :27 No 1000mL at 125 mL/hr, 1,000 mL, IV Infusion, CONTINUOUS , Starting Wed06/26/20 at 0815, Until Padmini 06/27/20 at 2351, [facility] D5W 0.9% NaCl (NS) IV infusion 1,000 mL 2019-07 14:15: 00 06-28 13:21 :40 No 1000mL at 125 mL/hr, 1,000 mL, IV Infusion, CONTINUOUS , Starting Wed06/26/20 at 0815, Until Wed06/28/20 at 0721, [facility] Sliding Scale Insulin - Lispro (HumaLOG) + Fsbg Testing 2019-07 12:00: 00 06-26 21:57 :55 No Subcutaneo us, Q6H, First dose on Wed06/26/20 at 0600, Until Discontinu ed, Routine [facility] proMETHazin e (PHENERGAN) 12.5 mg in NaCl 0.9% (NS) 50 mL IV piggyback 2019-07 11:21: 28 Yes 12.5mg 12.5 mg, IV Piggyback, Q4HPRN, Starting Wed06/26/20 at 0521, Until Discontinu ed, Routine, Nausea and Vomiting (N/V) [facility] morpHINE injection 4 mg 2019-07 11:21: 11 06-26 16:15 :46 No 4mg 4 mg, Slow IV Push, Q4HPRN, Starting Wed06/26/20 at 0521, Until Wed06/26/20 at 1015, Routine, Pain (scale 7-10) [facility] NaCl 0.9% (NS) IV infusion 1,000 mL 2019-07 08:00: 00 06-26 14:01 :34 No 1000mL at 125 mL/hr, IV Infusion, CONTINUOUS , Starting 12/16/20 at 0200, Until Wed06/26/20 at 0801, Routine [facility] dextrose 50 % in water (D50W) injection 25 mL 2019-07 07:48: 20 06-28 13:26 :23 No 25mL 25 mL, Slow IV Push, PRN, Starting Wed06/26/20 at 0148, Until Wed06/28/20 at 0726, ANA MARIA, Blood Glucose < or = 70 mg/dL and patient is unable to swallow or has mental status changes. [facility] proMETHazin e (PHENERGAN) 25 mg in NaCl 0.9% (NS) 50 mL piggyback 2019-07 07:45: 00 06-26 07:45 :00 No 25mg 25 mg, IV Piggyback, ONCE, 1 dose, Wed06/26/20 at 0145, 50 mL [facility] FENTanyl PF (SUBLIMAZE (PF)) injection 100 mcg 2019-07 07:45: 00 06-26 06:34 :00 No 100ug 100 mcg, Slow IV Push, ONCE, 1 dose, Wed06/26/20 at 0145, Routine [facility] morpHINE injection 2 mg 2019-07 07:44: 30 06-26 11:21 :45 No 2mg 2 mg, Slow IV Push, Q4HPRN, Starting Wed06/26/20 at 0144, Until Wed06/26/20 at 0521, Routine, Pain (scale 7-10) [facility] acetaminoph en (TYLENOL) tablet 650 mg 2019-07 07:44: 20 Yes 650mg 650 mg, Oral, Q6HPRN, Starting Wed06/26/20 at 0144, Until Discontinu ed, Routine, Pain (scale 1-3) [facility] proMETHazin e (PHENERGAN) 25 mg in NaCl 0.9% (NS) 50 mL piggyback 2019-07 05:15: 00 06-26 05:15 :00 No 25mg 25 mg, IV Piggyback, ONCE, 1 dose, Wed06/25/20 at 2315, 50 mL [facility] FENTanyl PF (SUBLIMAZE (PF)) injection 100 mcg 2019-07 05:00: 00 06-26 03:51 :00 No 100ug 100 mcg, Slow IV Push, ONCE, 1 dose, 06/25/20 at 2300, STAT [facility] iohexol (OMNIPAQUE 350 BULK-150 mL) injection 120 mL 2019-07 04:45: 00 06-26 04:45 :00 No 120mL 120 mL, Intravenou s, ONCE, 1 dose, 06/25/20 at 2245, Routine [facility] NaCl 0.9% (NS) IV infusion 1,000 mL 2019-07 04:00: 00 06-26 14:01 :29 No 1000mL at 999 mL/hr, Intravenou s, CONTINUOUS , Starting 06/25/20 at 2200, Until Wed06/26/20 at 0801, Routine [facility] ondansetron (ZOFRAN (PF)) injection 4 mg 2019-07 04:00: 00 06-26 03:10 :00 No 4mg 4 mg, Slow IV Push, ONCE, 1 dose, 06/25/20 at 2200, ANA MARIA [facility] FENTanyl PF (SUBLIMAZE (PF)) injection 75 mcg 2019-07 04:00: 00 06-26 03:09 :00 No 75ug 75 mcg, Slow IV Push, ONCE, 1 dose, 06/25/20 at 2200, Routine [facility] LOVAZA, omega-3-aci d ethyl esters, 1 gram capsule 7 00:00: 00 Yes [id number] 3g Take 3 capsules by mouth daily. [facility] ondansetron (ZOFRAN ODT) 4 mg disintegrat ing tablet 11-11 00:00: 00 Yes [id number] 4mg Take 1 tablet by mouth every 8 (eight) hours as needed for Nausea and Vomiting (N/V). [facility] Insulin [place], Disposable, (BD INSULIN PEN NEEDLE UF) 31 gauge x 5/16" Ndle 9 00:00: 00 Yes QID, DX:E11.9 [facility] Insulin [place], Disposable, (BD INSULIN PEN NEEDLE UF) 31 gauge x 5/16" Ndle 04-05 00:00: 00 Yes QID, DX:E11.9 [facility] Insulin [place], Disposable, (BD INSULIN PEN NEEDLE UF) 31 gauge x 5/16" Ndle 04-05 00:00: 00 Yes QID, DX:E11.9 [facility] atorvastati n (LIPITOR) 40 mg tablet 04-05 00:00: 00 02-08 00:00 :00 No [id number] 40mg Take 1 tablet by mouth at bedtime. [facility] LOVAZA, omega-3-aci d ethyl esters, (LOVAZA) 1 gram capsule 04-05 00:00: 02-08 00:00 :00 No [id number] 2g Take 2 capsules by mouth 2 (two) times daily before breakfast and dinner. [facility] insulin aspart (NOVOLOG FLEXPEN) 100 unit/mL injection 12-29 00:00: 00 Yes [id number] Inject as instructed TID AC up to 80 units daily [facility] Insulin Glargine (LANTUS SOLOSTAR) 100 unit/mL (3 mL) injection 12-29 00:00: 00 Yes [id number] 35U inject 35 Units under the skin every morning. [facility] glucagon 1 mg/mL SolR injection 12-29 00:00: 00 02-08 00:00 :00 No [id number] Use as instructed in case of severe hypoglycem ia. [facility] zolpidem (AMBIEN) 10 mg tablet 2014-07 00:00: 00 06-26 00:00 :00 No TAKE ONE TABLET BY MOUTH ONCE DAILY AT BEDTIME [facility] traMADOL (ULTRAM) 50 mg tablet 2014-07 00:00: 00 06-26 00:00 :00 No 50mg Take 1 Tab by mouth every 6 (six) hours as needed for Pain (scale 7-10). [facility] aspirin 81 mg chewable tablet 2014-07 00:00: 00 02-08 00:00 :00 No 81mg Take 1 Tab by mouth daily. [facility] enalapril (VASOTEC) 5 mg tablet 2014-07 00:00: 00 02-08 00:00 :00 No 5mg Take 1 Tab by mouth daily. [facility] fenofibrate micronized (LOFIBRA) 134 mg capsule 2014-07 00:00: 00 02-08 00:00 :00 No 134mg Take 1 Cap by mouth daily. [facility] blood sugar diagnostic (FREESTYLE INSULINX) strip 2011-07 00:00: 00 02-08 00:00 :00 No [id number] before meals and at bedtime. [facility] Lancets (LANCETS,UL TRA THIN) [facility] 04-04 00:00: 00 Yes [id number] [facility] Lancets (LANCETS,UL TRA THIN) [facility] 04-04 00:00: 00 Yes [id number] [facility] Vital Signs Vital Name Observation Time Observation Value Comments S ource Systolic blood pressure 2023-12-14 02:00:00 116 mm[Hg] [facility] Diastolic blood pressure 2023-12-14 02:00:00 79 mm[Hg] [facility] Heart rate 2023-12-14 02:00:00 71 /min [facility] Respiratory rate 2023-12-14 02:00:00 16 /min [facility] Oxygen saturation in Arterial blood by Pulse oximetry 2023-12-14 02:00:00 100 /min [facility] Body temperature 2023-12-14 00:00:00 36.44 Dejah [facility] Body height 2023-12-13 22:27:00 177.8 cm [facility] Body weight 2023-12-13 22:27:00 83.915 kg [facility] BMI 2023-12-13 22:27:00 26.54 kg/m2 [facility] Systolic blood pressure 2020-11-16 21:02:00 150 mm[Hg] [facility] Diastolic blood pressure 2020-11-16 21:02:00 93 mm[Hg] [facility] Heart rate 2020-11-16 21:02:00 93 /min [facility] Respiratory rate 2020-11-16 21:02:00 20 /min [facility] Oxygen saturation in Arterial blood by Pulse oximetry 2020-11-16 21:02:00 100 /min [facility] Body temperature 2020-11-16 18:21:00 36.61 Dejah [facility] Body weight 2020-11-16 18:21:00 89.359 kg [facility] BMI 2020-11-16 18:21:00 28.27 kg/m2 [facility] Systolic blood pressure 2020-07-28 21:58:00 147 mm[Hg] [facility] Diastolic blood pressure 2020-07-28 21:58:00 100 mm[Hg] [facility] Heart rate 2020-07-28 21:58:00 103 /min [facility] Body temperature 2020-07-28 21:58:00 36.28 Dejah [facility] Respiratory rate 2020-07-28 21:58:00 20 /min [facility] Body weight 2020-07-28 21:58:00 86.183 kg [facility] BMI 2020-07-28 21:58:00 27.26 kg/m2 [facility] Oxygen saturation in Arterial blood by Pulse oximetry 2020-07-28 21:58:00 100 /min [facility] Systolic blood pressure 2020-06-29 22:21:00 133 mm[Hg] [facility] Diastolic blood pressure 2020-06-29 22:21:00 81 mm[Hg] [facility] Heart rate 2020-06-29 22:21:00 89 /min [facility] Body temperature 2020-06-29 22:21:00 36.83 [facility] [facility] Respiratory rate 2020-06-29 22:21:00 18 /min [facility] Oxygen saturation in Arterial blood by Pulse oximetry 2020-06-29 22:21:00 99 /min [facility] Body weight 2020-06-27 10:03:00 87.998 kg General acute hospital BMI 2020-06-27 10:03:00 27.84 kg/m2 General acute hospital Body height 2020-06-26 07:45:00 177.8 cm General acute hospital Systolic blood pressure 2020-06-29 22:21:00 133 mm[Hg] [facility] Diastolic blood pressure 2020-06-29 22:21:00 81 mm[Hg] [facility] Heart rate 2020-06-29 22:21:00 89 /min [facility] Body temperature 2020-06-29 22:21:00 36.83 Dejah [facility] Respiratory rate 2020-06-29 22:21:00 18 /min [facility] Oxygen saturation in Arterial blood by Pulse oximetry 2020-06-29 22:21:00 99 /min [facility] Body weight 2020-06-27 10:03:00 87.998 kg General acute hospital BMI 2020-06-27 10:03:00 27.84 kg/m2 General acute hospital Body height 2020-06-26 07:45:00 177.8 cm General acute hospital Procedures Procedure Date / Time Performed Performing Clinician Source POCT GLUCOSE (AUTOMATED) 2023-12-14 02:25:00 Isaiah Farris [facility] POCT GLUCOSE (AUTOMATED) 2023-12-14 02:04:00 Isaiah Farris [facility] POCT GLUCOSE (AUTOMATED) 2023-12-14 01:35:00 Isaiah Farris [facility] POCT GLUCOSE (AUTOMATED) 2023-12-14 01:18:00 Isaiah Farris [facility] CT ABDOMEN PELVIS W CONTRAST 2023-12-14 01:09:58 Fortino Farris [facility] LIPASE 2023-12-14 00:08:00 Fortino Farris [facility] TROPONIN I 2023-12-14 00:08:00 Fortino Farris [facility] COMP. METABOLIC PANEL (29065) 2023-12-14 00:08:00 Fortino Farris [facility] ETHANOL 2023-12-14 00:08:00 [facility] CBC WITH DIFF 2023-12-14 00:08:00 Fortino Farris [facility] URINALYSIS 2023-12-14 00:08:00 [facility] N-TERMINAL PRO-BNP 2023-12-14 00:08:00 [facility]IMMUNOASSAY) - COMPREHENSIVE DRUG SCREEN W/O REFLEX 2023-12-14 00:08:00 Fortino Farris [facility] XR CHEST 1 VW 2023-12-13 23:22:21 Fortino Farris [facility] ABDOMEN PELVIS W CONTRAST 2020-11-16 19:40:14 Nader Mendoza [facility] LIPASE 2020-11-16 18:28:00 Nader Mendoza [facility] MAGNESIUM 2020-11-16 18:28:00 Nader Mendoza [facility] COMP. METABOLIC PANEL (32665) 2020-11-16 18:28:00 Nader Mendoza Shayla [facility] CBC WITH DIFF 2020-11-16 18:28:00 Nader Mendoza [facility] acute hospital URINALYSIS 2020-11-16 18:28:00 Nader Mendoza [facility] POCT GLUCOSE (AUTOMATED) 2020-11-16 18:25:00 Nader Mendoza Shayla [facility] CONSENT/REFUSAL FOR DIAGNOSIS AND TREATMENT 2020-11-16 18:14:39 Doctor Unassigned, [place] [facility] CT CERVICAL SPINE WO CONTRAST 2020-07-28 22:41:56 Lillian Barr [facility] CT HEAD WO CONTRAST 2020-07-28 22:41:56 Lillian Barr [facility] NOTICE OF PRIVACY PRACTICES 2020-07-28 21:50:31 Doctor Unassigned, [place] [facility] CONSENT/REFUSAL FOR DIAGNOSIS AND TREATMENT 2020-07-28 21:50:20 Doctor Unassigned, [place] [facility] POCT GLUCOSE (AUTOMATED) 2020-06-29 23:35:00 [facility] POCT GLUCOSE (AUTOMATED) 2020-06-29 18:04:00 Re[facility] POCT GLUCOSE (AUTOMATED) 2020-06-29 13:54:00 Rebec[facility] TRIGLYCERIDES 2020-06-29 11:20:00 Ellis Almeida [facility] acute hospital BASIC METABOLIC PANEL (NA, K, CL, CO2, GLUCOSE, BUN, CREATININE, CA) 2020-06-29 11:20:00 Re[facility] CBC WITH DIFF 2020-06-29 11:20:00 Rebeca [facility] ADC / LCC - DRUG SCREEN TRIAGE 2020-06-29 03:10:00 Favio Moscoso [facility] POCT GLUCOSE (AUTOMATED) 2020-06-28 22:46:00 Re[facility] POCT GLUCOSE (AUTOMATED) 2020-06-28 18:53:00 Rebec[facility] POCT GLUCOSE (AUTOMATED) 2020-06-28 18:01:00 [facility]UCOSE ([facility]OMATED) 2020-06-28 13:27:00 Rebeca [facility] POCT GLUCOSE (AUTOMATED) 2020-06-28 11:48:00 Rebeca [facility] TRIGLYCERIDES 2020-06-28 10:27:00 Ellis Almeida [facility] acute hospital LIPASE 2020-06-28 10:27:00 Rebeca [facility] MAGNESIUM 2020-06-28 10:27:00 Favio Moscoso [facility] BASIC METABOLIC PANEL (NA, K, CL, CO2, GLUCOSE, BUN, CREATININE, CA) 2020-06-28 10:27:00 Re[facility] ETHANOL 2020-06-28 10:27:00 Favio Moscoso [facility] CBC WITH DIFF 2020-06-28 10:27:00 Rebeca [facility] POCT GLUCOSE (AUTOMATED) 2020-06-28 10:10:00 Rebeca [facility] POCT GLUCOSE (AUTOMATED) 2020-06-28 07:00:00 Rebeca [facility] POCT GLUCOSE (AUTOMATED) 2020-06-28 05:48:00 Re[facility] POCT GLUCOSE (AUTOMATED) 2020-06-28 04:45:00 Edtere [facility] POCT GLUCOSE (AUTOMATED) 2020-06-28 03:40:00 [facility] PO[facility] GLUCOSE (AUTOMATED) 2020-06-28 02:43:00 [facility] POCT GLUCOSE (AUTOMATED) 2020-06-28 01:39:00 Rebeca [facility] POCT GLUCOSE (AUTOMATED) 2020-06-27 23:10:00 Rebeca [facility] TRIGLYCERIDES 2020-06-27 23:08:00 Ellis Almeida [facility] acute hospital POCT GLUCOSE (AUTOMATED) 2020-06-27 21:29:00 [facility] POCT GLUCOSE (AUTOMATED) 2020-06-27 19:54:00 [facility] ([facility]) 2020-06-27 18:59:00 [facility] POCT GLUCOSE (AUTOMATED) 2020-06-27 17:42:00 [facility]UCOSE (AUTOMATED) 2020-06-27 16:50:00 [facility] POCT GLUCOSE (AUTOMATED) 2020-06-27 14:43:00 [facility] POCT GLUCOSE (AUTOMATED) 2020-06-27 13:19:00 [facility] POCT GLUCOSE (AUTOMATED) 2020-06-27 12:18:00 [facility] TRIGLYCERIDES 2020-06-27 10:20:00 Ellis Almeida [facility] acute hospital LIPASE 2020-06-27 10:20:00 [facility] BASIC METABOLIC PANEL (NA, K, CL, CO2, GLUCOSE, BUN, CREATININE, CA) 2020-06-27 10:20:00 Rebeca [facility] CBC WITH DIFF 2020-06-27 10:20:00 [facility] POCT GLUCOSE (AUTOMATED) 2020-06-27 10:06:00 [facility] POCT GLUCOSE (AUTOMATED) 2020-06-27 09:06:00 [facility]SE ([facility]OMATED) 2020-06-27 08:07:00 [facility] PO[facility] GLUCOSE (AUTOMATED) 2020-06-27 07:09:00 [facility] POCT GLUCOSE (AUTOMATED) 2020-06-27 06:02:00 Rebeca [facility] POCT GLUCOSE (AUTOMATED) 2020-06-27 04:52:00 [facility]UCOSE (AUTOMATED) 2020-06-27 04:02:00 [facility] PO[facility] GLUCOSE (AUTOMATED) 2020-06-27 03:28:00 [facility] PO[facility] GLUCOSE (AUTOMATED) 2020-06-27 03:02:00 [facility] POCT GLUCOSE (AUTOMATED) 2020-06-27 02:01:00 [facility] POCT GLUCOSE (AUTOMATED) 2020-06-27 01:15:00 [facility] POCT GLUCOSE (AUTOMATED) 2020-06-27 00:07:00 [facility] POCT GLUCOSE (AUTOMATED) 2020-06-26 22:46:00 [facility] TRIGLYCERIDES 2020-06-26 22:07:00 Ellis Almeida [facility] acute hospital POCT GLUCOSE (AUTOMATED) 2020-06-26 21:45:00 [facility] POCT GLUCOSE (AUTOMATED) 2020-06-26 20:38:00 Rebeca [facility] POCT GLUCOSE (AUTOMATED) 2020-06-26 18:13:00 Rebeca [facility] POCT GLUCOSE (AUTOMATED) 2020-06-26 17:03:00 Rebeca [facility] LIPASE 2020-06-26 11:15:00 Rebeca [facility] LIPID PANEL (01099)(TOTAL CHOLESTEROL, TRIGLYCERIDES, HDL) 2020-06-26 11:15:00 [facility] GLYCOSYLATED HEMOGLOBIN (A1C) 2020-06-26 11:15:00 [facility] LOW-DENSITY LIPOPROTEIN, DIRECT 2020-06-26 11:15:00 [facility] POCT GLUCOSE (AUTOMATED) 2020-06-26 11:12:[address] [facility] CT ABDOMEN PELVIS W CONTRAST 2020-06-26 04:40:39 Kofi Beebe [facility] ASSIGNMENT OF BENEFITS 2020-06-26 03:16:02 Docto r Unassigned, [place] [facility] COVID-19 (ID NOW RAPID TESTING) 2020-06-26 03:12:00 Kofi Beebe [facility] LAB ONLY COVID INTERPRETATION 2020-06-26 03:12:00 Kofi Beebe [facility] LIPASE 2020-06-26 02:54:00 Kofi Beebe [facility] acute hospital COMP. METABOLIC PANEL (51130) 2020-06-26 02:54:00 Kofi Beebe [facility] CBC WITH DIFF 2020-06-26 02:54:00 Kofi Beebe [facility] POCT GLUCOSE (AUTOMATED) 2020-06-26 02:44:00 Aysha Beebe [facility] CONSENT/REFUSAL FOR DIAGNOSIS AND TREATMENT 2020-06-26 02:29:58 Doctor Unassigned, [place] [facility] EXTERNAL PROVIDER RECORDS 2020-02-09 05:01:00 Do ctor Unassigned, [place] [facility] Encounters Start Date/Time End Date/Time Encounter Type Admission Type Attending [facility] Care Facility Care Department Encounter ID Source 2021-10-03 16:00:00 Inpatient Chetan Coleman [facility] [id number] [facility] 2021-09-29 17:00:00 Inpatient Chetan Coleman [facility] [id number] [facility] 2021-05-11 17:56:10 Emergency [facility] [id number] [facility] 2021-05-10 17:48:01 Emergency [facility] [id number] [facility] 2021-05-10 11:31:12 Emergency [facility] [id number] [facility] 2024-02-25 00:00:00 2024-04-01 18:24:23 Patient Secure Msg Doctor Unassigned, [place] Doctor Unassigned, [place] [facility] 1.840.114 350.1.13.10 4.2.7.2.686 [id number] [facility] 2024-02-05 00:00:00 2024-03-11 18:23:54 Patient Secure Msg Doctor Unassigned, [place] Doctor Unassigned, [place] [facility] 1.840.114 350.1.13.10 4.2.7.2.686 [id number] [facility] 2024-02-10 00:00:00 2024-02-10 14:49:57 Letter (Out) Briana Hughes [facility] 1.840.114 350.1.13.10 4.2.7.2.686 [id number] [facility] 2024-02-01 00:00:00 2024-02-08 09:28:22 Telephone Cole Guan [facility] 1.840.114 350.1.13.10 4.2.7.2.686 [id number] [facility] 2023-12-13 17:36:00 2023-12-13 21:40:00 Emergency X FORTINO FARRIS [facility] ERT [id number] [facility] 2023-12-13 17:36:00 2023-12-13 21:40:00 Emergency Fortino Farris [facility] 1.0.114 350.1.13.10 4.2.7.2.686 [id number] [facility] 2021-10-03 16:42:00 2021-10-03 16:42:00 Outpatient [facility] [id number] [facility] 2021-09-29 14:17:00 2021-09-29 14:17:00 Outpatient [facility] [id number] [facility] 2021-09-25 13:47:00 2021-09-25 13:47:00 Outpatient [facility] [id number] [facility] 2021-09-25 13:47:00 2021-09-25 13:47:00 Outpatient Elective Chetan Coleman [facility] [id number] [facility] 2020-11-16 13:16:00 2020-11-16 16:24:00 Emergency Nader Mendoza [facility] 1..114 350.1.13.10 4.2.7.2.686 [id number] [facility] 2020-11-16 00:00:00 2020-11-16 00:00:00 Orders Only Doctor Unassigned, [place] [facility] 1..114 350.1.13.10 4.2.7.2.686 [id number] [facility] 2020-07-28 16:00:00 2020-07-28 17:40:00 Emergency Lillian Barr [facility] 1.20.114 350.1.13.10 4.2.7.2.686 [id number] [facility] 2020-07-28 00:00:00 2020-07-28 00:00:00 Orders Only Doctor Unassigned, [place] [facility] 1.2.840.114 350.1.13.10 4.2.7.2.686 [id number] [facility] 2020-07-01 00:00:00 2020-07-01 00:00:00 Transition of Care Annita Correa 1.2.840.114 350.1.13.10 4.2.7.2.686 [id number] [facility] 2020-07-01 00:00:00 2020-07-01 00:00:00 Transition of Care Annita Correa 1.2.840.114 350.1.13.10 4.2.7.2.686 [id number] 2020-06-25 20:44:00 2020-06-29 19:29:00 Hospital Encounter Kofi Beebe [facility] 1.2.840.114 350.1.13.10 4.2.7.2.686 [id number] [facility] 2020-06-25 20:44:00 2020-06-29 19:29:00 [facility] 1.2.840.114 350.1.13.10 4.2.7.2.686 [id number] 2020-06-25 00:00:00 2020-06-25 00:00:00 Orders Only Doctor Unassigned, [place] [facility] 1.2.840.114 350.1.13.10 4.2.7.2.686 [id number] [facility] 2020-06-25 00:00:00 2020-06-25 00:00:00 Orders Only Doctor Unassigned, [place] [facility] 1.2840.114 350.1.13.10 4.2.7.2.686 [id number] [id number] 2020-02-09 15:04:39 2020-02-09 15:53:06 Telemedici ne Visit Cole Guan [facility] 1.2840.114 350.1.13.10 4.2.7.2.686 [id number] [facility] 2020-02-09 15:04:39 2020-02-09 15:53:06 Telemedici ne Visit Cole Guan [facility] 1.284.114 350.1.13.10 4.2.7.2.686 [id number] 2020-02-09 15:00:00 2020-02-09 15:00:00 Outpatient R [facility]ANTRUMAN GREEN[facility] [id number] [facility] 2020-02-09 00:00:00 2020-02-09 00:00:00 Orders Only Doctor Unassigned, [place] [facility] 1.2840.114 350.1.13.10 4.2.7.2.686 [id number] [facility] 2020-02-09 00:00:00 2020-02-09 00:00:00 Orders Only Doctor Unassigned, [place] [facility] 1.2840.114 350.1.13.10 4.2.7.2.686 [id number] 2020-02-07 00:00:00 2020-02-07 00:00:00 Telephone GuanTrumanin [facility] 1.2840.114 350.1.13.10 4.2.7.2.686 [id number] [facility] 2020-02-07 00:00:2020-02-07 00:00:00 Telephone Cole Guan [facility] 1.2.840.114 350.1.13.10 4.2.7.2.686 [id number] Results Test Description Test Time Test Comments Results Result Co mments Source [facility] ABDOMEN PELVIS W [id number] 02:18:58HS:Y Indication: Pancreatitis, acute, severe ? Comparison: None RL: 4209 ORDERING PHYSICIAN: ?FORTINO ?SHAWNA TECHNIQUE: Axial CT images of the abdomen [...] soft tissue: No acute osseous abnormality is noted.[facility] GLUCOSE (AUTOMATED)2023-12-14 02:09:43* Test Item Value Reference Range Interpretation Comme nts POCT GLU (test code = 8952347256) 406 mg/dL 70-110 H Lab Interpretation (test cod e = 36923-5) Abnormal [facility] GLUCOSE (AUTOMATED)2023-12-14 01:36:46* Test Item Value Reference Range Interpretation Comme nts POCT GLU (test code = 7022138457) 453 mg/dL 70-110 HH Lab Interpretation (test cod e = 44615-1) Abnormal [facility] GLUCOSE (AUTOMATED)2023-12-14 01:21:40* Test Item Value Reference Range Interpretation Comme [facility] POCT GLU (test code = 0597969521) 504 mg/dL 70-110 HH Lab Interpretation (test cod e = 42800-3) [id number] 01:02:25* Test Item Value Reference Range Interpretation Comme nts TROPONIN I (test code = 4598863405) 0.005 ng/mL <=0.034 OSKAR (test code = [...] of biotin. Lab Interpretation (test code = 53768-4) Normal [facility] [id number] 00:59:47* Test Item Value Reference Range Interpretation Comme [facility] NT-proBNP (test code = 98950-9) 20 pg/mL <=125 Lab Interpretation (test cod e = 11914-9) Normal [facility] 1 [id number] 00:54:09Ordering physician: FORTINO FARRIS Clinical indication: Dyspnea. Comparison: None Technique: Chest,single view Technical quality: Adequate Findings: The lungs are clear. No pleural effusions are evident. Heart size isnormal. The superior mediastinal silhouette is unremarkable for age andprojection. No acute bony abnormalities are evident.[facility]2024-[facility] 00:53:41ALCOHOL<10mg/dL12/13/2023 7:53 [facility]10 Qfsatpnd34-561 Toxic>100 Depression of PHYSICAL THERAPY ATTENDANT>400 Fatalities Reported [facility] MET[facility]OLIC PANEL (30437)2023-12-14 00:53:36* Test Item Value Reference Range Interpretation Comme nts NA (test code = 3019646232) 129 mmol/L 135-145 L K (test code = 3231400666) 4.3 mmol/L 3.5-5.0 CL (test code = 4540780479) 93 mmol/L 98-108 L CO2 TOTAL (test code = 1754054284) 26 mmol/L 23-31 AGAP (test code = 5339597626) 10 2-16 BUN (test code = 3677261153) 25 mg/dL 7-23 H GLUCOSE (test code = 4491494626) 486 mg/dL 70-110 HH CREATININE (test code = 2160-0) 1.22 mg/dL 0.60-1.25 TOTAL BILI (test code = 1921946107) 1.6 mg/dL 0.1-1.1 H CALCIUM (test code = 4486132626) 8.8 mg/dL 8.6-10.6 T PROTEIN (test code = 7167506602) 7.9 g/dL 6.3-8.2 ALBUMIN (test code = 1890123473) 4.4 g/dL 3.5-5.0 ALK PHOS (test code = 3166135855) 78 U/L 34-122 ALTv (test code = 1742-6) 145 U/L 5-50 H AST(SGOT) (test code = 5147220168) 52 U/L 13-40 H eGFR (test code = 50987-8) 75.0 mL/min/1.73m2 CKD-EPI eGFR (2020). Assuming creatinine has been stable day-to-day for at least three months, the eGFR indicates Category G2 (60 - 89 mL/min/1.73 m2) Lab Interpretation (test code = 37316-9) Abnormal [facility] 00:49:27* Test Item Value Reference Range Interpretation Comme nts LIPASE (test code = 0534504603) 1623 U/L 0-220 H Lab Interpretation (test cod e = 40128-3) Abnormal [facility] WITH [id number] 00:31:25* Test Item Value Reference Range Interpretation [...] g/dL 31.2-35.0 H RDW-SD (test code = 08943-9) 33.1 fL 38.5-51.6 L RDW-CV (test code = 788-0) 11.4 % 12.1-15.4 L PLT (test code = 777-3) 167 150-328 MPV (test code = 84778-8) 10.0 fL 9.8-13.0 NRBC/100 WBC (test code = 3271568984) 0.0 0.0-10.0 NRBC x10^3 (test code = 6628174026) See_Comment [Automated messa ge] The system which generated this result transmitted reference range: 10*3/?L. The reference range was not used to interpret this result as normal/abnormal. GRAN MAT (NEUT) % (test code = 770-8) 63.5 % IMM GRAN % (test code = 4426322733) 0.80 % LYMPH % (test code = 736-9) 27.2 % MONO % (test code = 5905-5) 6.1 % EOS % (test code = 713-8) 1.4 % BASO % (test code = 706-2) 1.0 % GRAN MAT x10^3(ANC) (test code = 7966960066) 3.13 10*3/uL 1.99-6.95 IMM GRAN x10^3 (test code = 7093112808) 0.04 10*3/uL 0.00-0.06 LYMPH x10^3 (test code = 731-0) 1.34 10*3/uL 1.09-3.23 MONO x10^3 (test code = 742-7) 0.30 10*3/uL 0.36-1.02 L EOS x10^3 (test code = 711-2) 0.07 10*3/uL 0.06-0.53 BASO x10^3 (test code = 704-7) 0.05 10*3/uL 0.01-0.09 Lab Interpretation (test code = 33392-5) Abnormal [facility] [id number] 20:01:00* Test Item Value Reference Range Interpretation Comme nts Glucose Fingerstick (test code = WGLUC) 247 mg/dL 70-115 BLOOD OR BLOOD BANK TECHNICIAN Eug giacomo Lum Glucose [id number] 17:29:00* Test Item Value Reference Range Interpretation Comme nts Glucose Fingerstick (test code = WGLUC) 296 mg/dL 70-115 BLOOD OR BLOOD BANK TECHNICIAN MADELINE NUNES T Glucose [id number] 14:49:00* Test Item Value Reference Range Interpretation Comme nts Glucose Fingerstick (test code = WGLUC) 334 mg/dL 70-115 BLOOD OR BLOOD BANK TECHNICIAN And rew Samuel MCDONNELL or OR MICRO [id number] 16:15:00* Test Item Value Reference Range Interpretation [...] the possible exception of Ceftaroline. LEFT HANDGlucose [id number] 15:52:00* Test Item Value Reference Range Interpretation Comme nts Glucose Fingerstick (test code = WGLUC) 199 mg/dL 70-115 BLOOD OR BLOOD BANK TECHNICIAN And rew Svetlik [id number] 19:20:17* Test Item Value Reference Range Interpretation Comme nts APPEARANCE (test code = 8974205114) Clear Clear COLOR (test code = 4392835324) Mindy Yellow A PH (test code = 4348314548) 4.8-8.0 SP GRAVITY (test code = 5940269006) 1.003-1.030 GLU U QUAL (test code = 4898611412) 150 mg/dL Normal A BLOOD (test code = 6925816687) Negative Negative KETONES (test code = 0478870949) Negative Negative PROTEIN (test code = 2887-8) Negative Negative UROBILIN (test code = 9087167416) Normal Normal BILIRUBIN (test code = 0494506731) Negative Negative NITRITE (test code = 5020064070) Negative Negative LEUK BURTON (test code = 8519006255) Negative Negative RBC/HPF (test code = 5415237308) See_Comment [Automated [employer]a ge] The system which generated this result transmitted reference range: 0 - 3 HPF. The reference range was not used to interpret this result as normal/abnormal. WBC/HPF (test code = 2944483829) See_Comment [Automated messa ge] The system which generated this result transmitted reference range: 0 - 5 HPF. The reference range was not used to interpret this result as normal/abnormal. BACTERIA (test code = 1254419174) Negative Negative MUCOUS (test code = 6656780357) Moderate Negative LPF A Lab Interpretation (test code = 19196-2) Abnormal [facility]2021-[facility] 19:18:04* Test Item Value Reference Range Interpretation Comme nts MAGNESIUM (test code = 2557558275) 1.9 mg/dL 1.7-2.4 Lab Interpretation (test cod e = 23364-8) Normal [facility] METABOLIC PANEL (69921)2020-11-16 19:17:44* Test Item Value Reference Range Interpretation Comme nts NA (test code = 1325989169) 138 mmol/L 135-145 K (test code = 1735203386) 3.9 mmol/L 3.5-5.0 CL (test code = 7876653052) 100 mmol/L 98-108 CO2 TOTAL (test code = 5900386079) 28 mmol/L 23-31 AGAP (test code = 4195939641) 2-16 BUN (test code = 0804368668) 15 mg/dL 7-23 GLUCOSE (test code = 3552604372) 215 mg/dL 70-110 H CREATININE (test code = 6266793893) 0.88 mg/dL 0.60-1.25 TOTAL BILI (test code = 7200396696) 1.6 mg/dL 0.1-1.1 H CALCIUM (test code = 8347427774) 9.6 mg/dL 8.6-10.6 T PROTEIN (test code = 4763776160) 7.4 g/dL 6.3-8.2 ALBUMIN (test code = 6916171441) 4.6 g/dL 3.5-5.0 ALK PHOS (test code = 4523771936) 90 U/L 34-122 ALTv (test code = 1742-6) 15 U/L 5-50 AST(SGOT) (test code = 7692293511) 17 U/L 13-40 eGFR (test code = 6453106859) mL/min/1.73m2 OSKAR (test code = OSKAR) Association [...] imaging tests). Lab Interpretation (test code = 42048-2) [facility]17:23* Test Item Value Reference Range Interpretation Comme nts LIPASE (test code = 9762638421) 87 U/L 0-220 Lab Interpretation (test cod e = 72926-1) Normal General acute hospital WITH [id number] 19:06:43* Test Item Value Reference Range Interpretation [...] 33.6 g/dL 31.2-35.0 RDW-SD (test code = 87967-6) 39.0 fL 38.5-51.6 RDW-CV (test code = 788-0) 13.9 % 12.1-15.4 PLT (test code = 777-3) See_Comment [Automated messa ge] The system which generated this result transmitted reference range: 150 - 328 10*3/?L. The reference range was not used to interpret this result as normal/abnormal. MPV (test code = 34573-9) 9.4 fL 9.8-13.0 L NRBC/100 WBC (test code = 4843040793) See_Comment [Automated [employer] ssage] The system which generated this result transmitted reference range: 0.0 - 10.0 /100 WBCs. The reference range was not used to interpret this result as normal/abnormal. NRBC x10^3 (test code = 6773797538) <0.01 See_Comment [Automated messa ge] The system which generated this result transmitted reference range: 10*3/?L. The reference range was not used to interpret this result as normal/abnormal. GRAN MAT (NEUT) % (test code = 770-8) 79.9 % IMM GRAN % (test code = 5967603617) 0.60 % LYMPH % (test code = 736-9) 14.4 % MONO % (test code = 5905-5) 3.9 % EOS % (test code = 713-8) 0.6 % BASO % (test code = 706-2) 0.6 % GRAN MAT x10^3(ANC) (test code = 8482606968) 7.25 10*3/uL 1.99-6.95 H IMM GRAN x10^3 (test code = 8431680752) 0.05 10*3/uL 0.00-0.06 LYMPH x10^3 (test code = 731-0) 1.30 10*3/uL 1.09-3.23 MONO x10^3 (test code = 742-7) 0.35 10*3/uL 0.36-1.02 L EOS x10^3 (test code = 711-2) 0.05 10*3/uL 0.06-0.53 L BASO x10^3 (test code = 704-7) 0.05 10*3/uL 0.01-0.09 Lab Interpretation (test code = 71306-7) Abnormal [facility] GLUCOSE (AUTOMATED)2020-11-16 18:27:21* Test Item Value Reference Range Interpretation Comme nts POCT GLU (test code = 0164776078) 218 mg/dL 70-110 H Lab Interpretation (test cod e = 33917-8) Abnormal [facility] GLUCOSE (AUTOMATED)2020-06-29 23:37:00* Test Item Value Reference Range Interpretation Comme nts POCT GLU (test code = 8538846026) 217 mg/dL 70-110 H Lab Interpretation (test cod e = 28216-2) Abnormal [facility] GLUCOSE (AUTOMATED)2020-06-29 18:58:00* Test Item Value Reference Range Interpretation Comme nts POCT GLU (test code = 9498475201) 214 mg/dL 70-110 H Lab Interpretation (test cod e = 43868-2) Abnormal [facility] GLUCOSE (AUTOMATED)2020-06-29 14:15:00* Test Item Value Reference Range Interpretation Comme nts POCT GLU (test code = 0433373891) 182 mg/dL 70-110 H Lab Interpretation (test cod e = 32563-3) Abnormal General acute hospital with Kdeiwcrloadh5899-25-53 13:44:00* Test Item Value Reference Range Interpretation [...] 34.7 g/dL 31.2-35 RDW-SD (test code = 58087-4) 37.0 fL 38.5-51.6 L RDW-CV (test code = 788-0) 12.2 % 12.1-15.4 PLT (test code = 777-3) See_Comment L [Automated messa ge] The system which generated this result transmitted reference range: 150 - 328 10*3/?L. The reference range was not used to interpret this result as normal/abnormal. MPV (test code = 66229-9) 9.9 fL 9.8-13 NRBC/100 WBC (test code = 7516976090) See_Comment [Automated me ssage] The system which generated this result transmitted reference range: 0.0 - 10.0 /100 WBCs. The reference range was not used to interpret this result as normal/abnormal. NRBC x10^3 (test code = 8762139195) <0.01 See_Comment [Automated messa ge] The system which generated this result transmitted reference range: 10*3/?L. The reference range was not used to interpret this result as normal/abnormal. GRAN MAT (NEUT) % (test code = 770-8) 61.0 % IMM GRAN % (test code = 2824964595) 0.30 % LYMPH % (test code = 736-9) 29.5 % MONO % (test code = 5905-5) 5.9 % EOS % (test code = 713-8) 2.4 % BASO % (test code = 706-2) 0.9 % GRAN MAT x10^3(ANC) (test code = 8807995876) 2.07 10*3/uL 1.99-6.95 IMM GRAN x10^3 (test code = 6566248519) <0.03 0-0.06 LYMPH x10^3 (test code = 731-0) 1.00 10*3/uL 1.09-3.23 L MONO x10^3 (test code = 742-7) 0.20 10*3/uL 0.36-1.02 L EOS x10^3 (test code = 711-2) 0.08 10*3/uL 0.06-0.53 BASO x10^3 (test code = 704-7) 0.03 10*3/uL 0.01-0.09 Lab Interpretation (test code = 15608-9) [facility] 13:22:00* Test Item Value Reference Range Interpretation Comme nts TRIG (test code = 0340598323) 468 mg/dL 30-170 H Lab Interpretation (test cod e = 80481-9) [facility] (NA, K, CL, CO2, GLUCOSE, BUN, CREATININE, CA)2020-06-29 13:12:00* Test Item Value Reference Range Interpretation Comme nts NA (test code = 9767664762) 139 mmol/L 135-145 K (test code = 7651460290) 3.6 mmol/L 3.5-5 CL (test code = 9684732345) 104 mmol/L 98-108 CO2 TOTAL (test code = 0482965152) 25 mmol/L 23-31 AGAP (test code = 2461224471) 2-16 BUN (test code = 1664385978) 4 mg/dL 7-23 L GLUCOSE (test code = 1139418206) 163 mg/dL 70-110 H CREATININE (test code = 2106188465) 0.74 mg/dL 0.6-1.25 CALCIUM (test code = 9745753511) 9.4 mg/dL 8.6-10.6 eGFR Calculation (Non-) (test code = 7299994413) mL/min/1.73m2 eGFR Calculation () (test code = 2219849485) mL/min/1.73m2 OSKAR (test code = OKSAR) Association of Glomerular Filtration Rate (GFR) and [...] imaging tests). Lab Interpretation (test code = 36451-3) Abnormal [facility] - DR[facility] SCREEN [id number] 03:44:00* Test Item Value Reference Range Interpretation Comme nts BENZO U (test code = 1479677349) Presumptive Positive Negative A AUDREY U (test code = 8994213479) Negative Negative AMPHET (test code = 5675321382) Negative Negative THC (test code = 9740795731) Presumptive Positive Negative A Confirmation of Presumptive Positive THC result requires physician order. METHADONE (test code = 1873916696) Negative Negative Meth U (test code = 4464442363) Negative Negative OPIATES (test code = 9600304599) Presumptive Positive Negative A Cocaine Metabolite (test code = 6382157478) Negative Negative PROPOXY (test code = 1209174784) Negative Negative Tric U (test code = 5138201781) Presumptive Positive Negative A Confirmation of Presumptive Positive TCA result requires physician order and this will be sent to reference lab. PCP (test code = 7112661918) Negative Negative OXYCOD (test code = 1885217370) Negative Negative OSKAR (test code = OSKAR) [...] legal testing). Lab Interpretation (test code = 07949-0) [facility] 01:23:00* Test Item Value Reference Range Interpretation Comme nts ALCOHOL (test code = 6760639066) <10 mg/dL OSKAR (test code = OSKAR) <10 [id number] Toxic>100 Depression of PHYSICAL THERAPY ATTENDANT>400 Fatalities Reported [facility]2020-06-28 23:30:00* Test Item Value Reference Range Interpretation Comme nts POCT GLU (test code = 0352886142) 234 mg/dL 70-110 H Lab Interpretation (test cod e = 53745-1) Abnormal [facility] GLUCOSE (AUTOMATED)2020-06-28 19:09:00* Test Item Value Reference Range Interpretation Comme nts POCT GLU (test code = 1387244669) 195 mg/dL 70-110 H Lab Interpretation (test cod e = 37757-5) Abnormal [facility] GLUCOSE (AUTOMATED)2020-06-28 18:16:00* Test Item Value Reference Range Interpretation Comme nts POCT GLU (test code = 1270843833) 113 mg/dL 70-110 H Lab Interpretation (test cod e = 31467-9) [facility]normal [facility]2020-12-18 15:54:00* Test Item Value Reference Range Interpretation Comme nts MAGNESIUM (test code = 7202197518) 1.7 mg/dL 1.7-2.4 Lab Interpretation (test cod e = 83620-8) Normal [facility] GLUCOSE (AUTOMATED)2020-06-28 14:51:00* Test Item Value Reference Range Interpretation Comme nts POCT GLU (test code = 2624061252) 94 mg/dL 70-110 Lab Interpretation (test cod e = 44877-1) Normal General acute hospital with Haeqzpqgelsn7095-56-28 14:08:00* Test Item Value Reference Range Interpretation [...] 34.7 g/dL 31.2-35 RDW-SD (test code = 01914-4) 36.2 fL 38.5-51.6 L RDW-CV (test code = 788-0) 11.9 % 12.1-15.4 L PLT (test code = 777-3) See_Comment L [Automated messa ge] The system which generated this result transmitted reference range: 150 - 328 10*3/?L. The reference range was not used to interpret this result as normal/abnormal. MPV (test code = 09910-3) 10.0 fL 9.8-13 NRBC/100 WBC (test code = 0988797444) See_Comment [Automated [employer] ssage] The system which generated this result transmitted reference range: 0.0 - 10.0 /100 WBCs. The reference range was not used to interpret this result as normal/abnormal. NRBC x10^3 (test code = 3145291889) <0.01 See_Comment [Automated messa ge] The system which generated this result transmitted reference range: 10*3/?L. The reference range was not used to interpret this result as normal/abnormal. GRAN MAT (NEUT) % (test code = 770-8) 59.7 % IMM GRAN % (test code = 6439510727) 0.30 % LYMPH % (test code = 736-9) 33.3 % MONO % (test code = 5905-5) 4.8 % EOS % (test code = 713-8) 1.3 % BASO % (test code = 706-2) 0.6 % GRAN MAT x10^3(ANC) (test code = 4362713932) 1.86 10*3/uL 1.99-6.95 L IMM GRAN x10^3 (test code = 0243560301) <0.03 0-0.06 LYMPH x10^3 (test code = 731-0) 1.04 10*3/uL 1.09-3.23 L MONO x10^3 (test code = 742-7) 0.15 10*3/uL 0.36-1.02 L EOS x10^3 (test code = 711-2) 0.04 10*3/uL 0.06-0.53 L BASO x10^3 (test code = 704-7) <0.03 0.01-0.09 Lab Interpretation (test code = 80005-0) Abnormal [facility] Metabolic Panel (NA, K, CL, CO2, GLUCOSE, BUN, CREATININE, CA)2020-06-28 13:02:00* Test Item Value Reference Range Interpretation Comme nts NA (test code = 9949758428) 140 mmol/L 135-145 K (test code = 2755470842) 3.0 mmol/L 3.5-5 L CL (test code = 9910140263) 106 mmol/L 98-108 CO2 TOTAL (test code = 1733206151) 25 mmol/L 23-31 AGAP (test code = 7801613910) 2-16 BUN (test code = 2878461938) <2 7-23 L GLUCOSE (test code = 4634713725) 107 mg/dL 70-110 CREATININE (test code = 0405038542) 0.59 mg/dL 0.6-1.25 L CALCIUM (test code = 7316835083) 8.9 mg/dL 8.6-10.6 eGFR Calculation (Non-) (test code = 3318485531) mL/min/1.73m2 eGFR Calculation () (test code = 1322539926) mL/min/1.73m2 OSKAR (test code = OSKAR) Association [...] imaging tests). Lab Interpretation (test code = 51719-9) [facility]normal [facility]2020-12-18 13:02:00* Test Item Value Reference Range Interpretation Comme nts TRIG (test code = 0938425509) 519 mg/dL 30-170 H Lab Interpretation (test cod e = 54117-2) [facility]normal [facility]2020-12-18 12:45:00* Test Item Value Reference Range Interpretation Comme nts LIPASE (test code = 3410671002) 27 U/L 0-220 Lab Interpretation (test cod e = 79755-7) Normal [facility]2020-06-28 11:51:00* Test Item Value Reference Range Interpretation Comme nts POCT GLU (test code = 7217661493) 111 mg/dL 70-110 H Lab Interpretation (test cod e = 78178-6) [facility]normal [facility] COVID EFCHHJBIEOVCWZ1434-30-03 11:31:00COVID DMT InterpretationInterpretation/Recommendations: Molecular NAAT Tests for [...] all COVID-19 testingthe patient has had at [facility], including molecular NAAT testing (more commonly known as PCR testing and Rapid ID Now testing) and antibody testing. It does not take into account any testing that a patient has had outside of the [facility] medical record. [facility] LABORATORY SERVICESCOVID ArawdqoLMAZ-XcY-8 Rapid ID NOW (no units) ? ? Date ? Value ? 06/25/2020 ? Not Detected ? [facility]2020-06-28 10:16:00* Test Item Value Reference Range Interpretation Comme nts POCT GLU (test code = 5334554526) 109 mg/dL 70-110 Lab Interpretation (test cod e = 34650-2) Normal [facility] GLUCOSE (AUTOMATED)2020-06-28 09:08:00* Test Item Value Reference Range Interpretation Comme nts POCT GLU (test code = 2309760848) 152 mg/dL 70-110 H Lab Interpretation (test cod e = 55749-6) Abnormal [facility] GLUCOSE (AUTOMATED)2020-06-28 06:20:00* Test Item Value Reference Range Interpretation Comme nts POCT GLU (test code = 1694128079) 84 mg/dL 70-110 Lab Interpretation (test cod e = 52557-7) Normal [facility] GLUCOSE (AUTOMATED)2020-06-28 04:47:00* Test Item Value Reference Range Interpretation Comme nts POCT GLU (test code = 8156687902) 95 mg/dL 70-110 Lab Interpretation (test cod e = 62020-0) Normal [facility] GLUCOSE (AUTOMATED)2020-06-28 03:43:00* Test Item Value Reference Range Interpretation Comme nts POCT GLU (test code = 2185428740) 123 mg/dL 70-110 H Lab Interpretation (test cod e = 68839-9) Abnormal [facility] GLUCOSE (AUTOMATED)2020-06-28 02:47:00* Test Item Value Reference Range Interpretation Comme nts POCT GLU (test code = 5465230302) 121 mg/dL 70-110 H Lab Interpretation (test cod e = 11355-7) Abnormal [facility] GLUCOSE (AUTOMATED)2020-06-28 02:17:00* Test Item Value Reference Range Interpretation Comme nts POCT GLU (test code = 3044091911) 94 mg/dL 70-110 Lab Interpretation (test cod e = 52519-5) Normal [facility]2020-12-18 01:21:00* Test Item Value Reference Range Interpretation Comme nts TRIG (test code = 7152454750) 647 mg/dL 30-170 H Lab Interpretation (test cod e = 45216-7) Abnormal [facility] GLUCOSE (AUTOMATED)2020-06-27 23:29:00* Test Item Value Reference Range Interpretation Comme nts POCT GLU (test code = 2988654469) 87 mg/dL 70-110 Lab Interpretation (test cod e = 48463-9) Normal [facility] GLUCOSE (AUTOMATED)2020-06-27 21:36:00* Test Item Value Reference Range Interpretation Comme nts POCT GLU (test code = 9944946566) 85 mg/dL 70-110 Lab Interpretation (test cod e = 75268-0) Normal [facility] GLUCOSE (AUTOMATED)2020-06-27 19:55:00* Test Item Value Reference Range Interpretation Comme nts POCT GLU (test code = 7663152176) 91 mg/dL 70-110 Lab Interpretation (test cod e = 11671-7) Normal [facility] GLUCOSE (AUTOMATED)2020-06-27 19:01:00* Test Item Value Reference Range Interpretation Comme nts POCT GLU (test code = 1863494054) 125 mg/dL 70-110 H Lab Interpretation (test cod e = 63806-6) Abnormal [facility] GLUCOSE (AUTOMATED)2020-06-27 17:46:00* Test Item Value Reference Range Interpretation Comme nts POCT GLU (test code = 6787146570) 122 mg/dL 70-110 H Lab Interpretation (test cod e = 47949-0) Abnormal [facility] GLUCOSE (AUTOMATED)2020-06-27 16:56:00* Test Item Value Reference Range Interpretation Comme nts POCT GLU (test code = 6422385993) 98 mg/dL 70-110 Lab Interpretation (test cod e = 69700-4) Normal [facility] GLUCOSE (AUTOMATED)2020-06-27 14:47:00* Test Item Value Reference Range Interpretation Comme nts POCT GLU (test code = 2377459357) 209 mg/dL 70-110 H Lab Interpretation (test cod e = 75261-5) Abnormal [facility] GLUCOSE (AUTOMATED)2020-06-27 14:47:00* Test Item Value Reference Range Interpretation Comme nts POCT GLU (test code = 0940764794) 181 mg/dL 70-110 H Lab Interpretation (test cod e = 76436-7) Abnormal General acute hospital with Etebtlfhypfi9964-61-75 12:55:00* Test Item Value Reference Range Interpretation [...] 35.0 g/dL 31.2-35 RDW-SD (test code = 76052-1) 35.6 fL 38.5-51.6 L RDW-CV (test code = 788-0) 11.8 % 12.1-15.4 L PLT (test code = 777-3) See_Comment L [Automated messa ge] The system which generated this result transmitted reference range: 150 - 328 10*3/?L. The reference range was not used to interpret this result as normal/abnormal. MPV (test code = 39103-5) 9.9 fL 9.8-13 NRBC/100 WBC (test code = 0236478179) See_Comment [Automated [employer] ssage] The system which generated this result transmitted reference range: 0.0 - 10.0 /100 WBCs. The reference range was not used to interpret this result as normal/abnormal. NRBC x10^3 (test code = 8359702106) <0.01 See_Comment [Automated messa ge] The system which generated this result transmitted reference range: 10*3/?L. The reference range was not used to interpret this result as normal/abnormal. GRAN MAT (NEUT) % (test code = 770-8) 59.3 % IMM GRAN % (test code = 9879382791) 0.30 % LYMPH % (test code = 736-9) 33.7 % MONO % (test code = 5905-5) 4.7 % EOS % (test code = 713-8) 1.3 % BASO % (test code = 706-2) 0.7 % GRAN MAT x10^3(ANC) (test code = 4848867991) 1.78 10*3/uL 1.99-6.95 L IMM GRAN x10^3 (test code = 7155165008) <0.03 0-0.06 LYMPH x10^3 (test code = 731-0) 1.01 10*3/uL 1.09-3.23 L MONO x10^3 (test code = 742-7) 0.14 10*3/uL 0.36-1.02 L EOS x10^3 (test code = 711-2) 0.04 10*3/uL 0.06-0.53 L BASO x10^3 (test code = 704-7) <0.03 0.01-0.09 Lab Interpretation (test code = 09138-8) Abnormal [facility] GLUCOSE (AUTOMATED)2020-06-27 12:26:00* Test Item Value Reference Range Interpretation Comme nts POCT GLU (test code = 4620346394) 238 mg/dL 70-110 H Lab Interpretation (test cod e = 21507-6) Abnormal [facility] GLUCOSE (AUTOMATED)2020-06-27 12:20:00* Test Item Value Reference Range Interpretation Comme nts POCT GLU (test code = 0268845882) 216 mg/dL 70-110 H Lab Interpretation (test cod e = 27946-5) [facility]normal [facility]2020-[facility]-17 12:03:00* Test Item Value Reference Range Interpretation Comme nts TRIG (test code = 6951574684) 810 mg/dL 30-170 H Lab Interpretation (test cod e = 61913-2) Abnormal [facility] Metabolic Panel (NA, K, CL, CO2, GLUCOSE, BUN, CREATININE, CA)2020-06-27 11:56:00* Test Item Value Reference Range Interpretation Comme nts NA (test code = 4619044796) 135 mmol/L 135-145 K (test code = 2697503022) 3.6 mmol/L 3.5-5 CL (test code = 8631953146) 104 mmol/L 98-108 CO2 TOTAL (test code = 2228189803) 23 mmol/L 23-31 AGAP (test code = 0842139690) 2-16 BUN (test code = 3383565569) 5 mg/dL 7-23 L GLUCOSE (test code = 3278067754) 191 mg/dL 70-110 H CREATININE (test code = 0737986148) 0.56 mg/dL 0.6-1.25 L CALCIUM (test code = 7308658188) 8.9 mg/dL 8.6-10.6 eGFR Calculation (Non-) (test code = 3250888057) mL/min/1.73m2 eGFR Calculation () (test code = 1261277088) mL/min/1.73m2 OSKAR (test code = OSKAR) Association [...] imaging tests). Lab Interpretation (test code = 94532-2) [facility] 11:55:00* Test Item Value Reference Range Interpretation Comme [facility] LIPASE (test code = 9139725615) 40 U/L 0-220 Lab Interpretation (test cod e = 92672-0) Normal [facility]2020-06-27 09:09:00* Test Item Value Reference Range Interpretation Comme [facility] POCT GLU (test code = 7891256826) 185 mg/dL 70-110 H Lab Interpretation (test cod e = 49633-3) Abnormal [facility] GLUCOSE (AUTOMATED)2020-06-27 08:09:00* Test Item Value Reference Range Interpretation Comme nts POCT GLU (test code = 3924215345) 124 mg/dL 70-110 H Lab Interpretation (test cod e = 04762-8) Abnormal [facility] GLUCOSE (AUTOMATED)2020-06-27 07:11:00* Test Item Value Reference Range Interpretation Comme nts POCT GLU (test code = 1695958674) 104 mg/dL 70-110 Lab Interpretation (test cod e = 72210-8) Normal [facility] GLUCOSE (AUTOMATED)2020-06-27 06:04:00* Test Item Value Reference Range Interpretation Comme nts POCT GLU (test code = 2239274122) 97 mg/dL 70-110 Lab Interpretation (test cod e = 53401-4) Normal [facility] GLUCOSE (AUTOMATED)2020-06-27 04:54:00* Test Item Value Reference Range Interpretation Comme nts POCT GLU (test code = 6508424274) 54 mg/dL 70-110 L Lab Interpretation (test cod e = 27248-3) Abnormal [facility] GLUCOSE (AUTOMATED)2020-06-27 04:04:00* Test Item Value Reference Range Interpretation Comme nts POCT GLU (test code = 5730168001) 88 mg/dL 70-110 Lab Interpretation (test cod e = 13722-0) Normal [facility] GLUCOSE (AUTOMATED)2020-06-27 03:32:00* Test Item Value Reference Range Interpretation Comme nts POCT GLU (test code = 9613983543) 104 mg/dL 70-110 Lab Interpretation (test cod e = 71230-1) Normal [facility] GLUCOSE (AUTOMATED)2020-06-27 03:05:00* Test Item Value Reference Range Interpretation Comme nts POCT GLU (test code = 9569447908) 68 mg/dL 70-110 L Lab Interpretation (test cod e = 00546-6) Abnormal [facility] GLUCOSE (AUTOMATED)2020-06-27 02:05:00* Test Item Value Reference Range Interpretation Comme nts POCT GLU (test code = 5353018769) 113 mg/dL 70-110 H Lab Interpretation (test cod e = 70529-8) Abnormal [facility] GLUCOSE (AUTOMATED)2020-06-27 01:21:00* Test Item Value Reference Range Interpretation Comme nts POCT GLU (test code = 4768655659) 122 mg/dL 70-110 H Lab Interpretation (test cod e = 48317-7) Abnormal [facility] GLUCOSE (AUTOMATED)2020-06-27 00:09:00* Test Item Value Reference Range Interpretation Comme nts POCT GLU (test code = 9078065904) 125 mg/dL 70-110 H Lab Interpretation (test cod e = 99005-5) [facility]normal [facility] 23:47:00* Test Item Value Reference Range Interpretation Comme nts TRIG (test code = 4187542421) 1086 mg/dL 30-170 H Lab Interpretation (test cod e = 30532-7) Abnormal [facility] GLUCOSE (AUTOMATED)2020-06-26 23:12:00* Test Item Value Reference Range Interpretation Comme nts POCT GLU (test code = 4939260783) 175 mg/dL 70-110 H Lab Interpretation (test cod e = 79815-9) Abnormal [facility] GLUCOSE (AUTOMATED)2020-06-26 23:12:00* Test Item Value Reference Range Interpretation Comme nts POCT GLU (test code = 1745465872) 81 mg/dL 70-110 Lab Interpretation (test cod e = 30207-5) Normal [facility] GLUCOSE (AUTOMATED)2020-06-26 22:50:00* Test Item Value Reference Range Interpretation Comme nts POCT GLU (test code = 1130749701) 88 mg/dL 70-110 Lab Interpretation (test cod e = 77533-5) Normal [facility] GLUCOSE (AUTOMATED)2020-06-26 22:26:00* Test Item Value Reference Range Interpretation Comme nts POCT GLU (test code = 1617462896) 91 mg/dL 70-110 Lab Interpretation (test cod e = 58793-5) Normal [facility] GLUCOSE (AUTOMATED)2020-06-26 17:06:00* Test Item Value Reference Range Interpretation Comme nts POCT GLU (test code = 4590430968) 227 mg/dL 70-110 H Lab Interpretation (test cod e = 06942-1) Abnormal [facility] RegionalLOW-DENSITY LIPOPROTEIN, [id number] 16:31:00* Test Item Value Reference Range Interpretation Comme nts dLDL Chol (test code = 64860-2) <30 See_Comment [Automated [employer]] The system which generated this result transmitted reference range: <130 mg/dL. The reference range was not used to interpret this result as normal/abnormal. Lab Interpretation (test code = 39337-0) Normal [facility] RegionalLIP[facility] PAN[facility] (20187)(TOTAL CHOLESTEROL, TRIGLYCERIDES, HDL)2020-06-26 13:16:00* Test Item Value Reference Range Interpretation Comme nts CHOL (test code = 6001629948) 217 mg/dL 120-200 H HDL (test code = 9341706647) 13 mg/dL >40 L HDLC RATIO (test code = 4234656670) See_Comment H [Automated [employer]] The system which generated this result transmitted reference range: <=5.0. The reference range was not used to interpret this result as normal/abnormal. TRIG (test code = 6720755837) 1337 mg/dL 30-170 H LDL CHOL (test code = 55561-2) Unable to calcul ate LDL due to elevated triglyceride level greater than 400 mg/dL. VLDL (test code = 0774458047) Unable to calcul ate VLDL due to elevated triglyceride level greater than 710 mg/dL. Lab Interpretation (test code = 11788-2) [facility]03:00* Test Item Value Reference Range Interpretation Comme nts LIPASE (test code = 8151959019) 60 U/L 0-220 Lab Interpretation (test cod e = 75833-1) Normal [facility] (A1C)2020-06-26 12:46:00* Test Item Value Reference Range Interpretation Comme nts HGB A1C (test code = 4548-4) 9.2 % 4-6 H OSKAR (test code = OSKAR) %A1C (NGSP) Interpretation (ADA)4.8-5.6 ? ? Normal or (Non-Diabetic Range)5.7-6.4 ? ? Increased Risk (Pre-Diabetic)>6.5 ?Diabetes Indicated Lab Interpretation (test code = 48115-0) [facility]normal [facility]ATED)2020-06-26 11:24:00* Test Item Value Reference Range Interpretation Comme nts POCT GLU (test code = 4899782603) 209 mg/dL 70-110 H Lab Interpretation (test cod e = 90213-6) [facility] W [id number] 05:55:56Impression: 1. Peripancreatic inflammation, likely representing acute [...] demonstrated in the upper abdomen. RL: 2824AFC: 06171 End of Report Exam: CT Abdomen and [...] demonstrated in the upper abdomen. RL: 2824AFC: 30140Ajx of Report [facility] (ID NOW RAPID TESTING)2020-06-26 03:44:00* Test Item Value Reference Range Interpretation Comme nts SARS-CoV-2 Rapid ID NOW (test code = 94509-5) Not Detected Not Detected OSKAR (test code = OSKAR) ID NOW COVID-19 As say is an isothermal nucleic acid amplification test intended for the qualitative detection of nucleic acid from SARS-CoV-2 viral RNA in nasopharyngeal (MAINTENANCE LEADER) specimens. It is used under Emergency Use [...] clinically indicated. Lab Interpretation (test code = 64028-5) Normal [facility]OLIC PANEL (25580)2020-06-26 03:17:00* Test Item Value Reference Range Interpretation Comme nts NA (test code = 9912583765) 136 mmol/L 135-145 K (test code = 7974745231) 4.3 mmol/L 3.5-5 CL (test code = 3860105588) 97 mmol/L 98-108 L CO2 TOTAL (test code = 8790772997) 31 mmol/L 23-31 AGAP (test code = 6145383547) 2-16 BUN (test code = 5689710617) 7 mg/dL 7-23 GLUCOSE (test code = 1392323038) 220 mg/dL 70-110 H CREATININE (test code = 4824027858) 0.68 mg/dL 0.6-1.25 TOTAL BILI (test code = 6917824166) 1.6 mg/dL 0.1-1.1 H CALCIUM (test code = 2795861035) 9.4 mg/dL 8.6-10.6 T PROTEIN (test code = 1591253253) 7.6 g/dL 6.3-8.2 ALBUMIN (test code = 7847790994) 4.4 g/dL 3.5-5 ALK PHOS (test code = 0215739084) 103 U/L 34-122 ALTv (test code = 1742-6) 113 U/L 5-50 H AST(SGOT) (test code = 1680452929) 87 U/L 13-40 H eGFR Calculation (Non-) (test code = 3422029191) mL/min/1.73m2 eGFR Calculation () (test code = 5021186812) mL/min/1.73m2 OSKAR (test code = OSKAR) Association [...] imaging tests). Lab Interpretation (test code = 05488-1) [facility] 03:16:00* Test Item Value Reference Range Interpretation Comme nts LIPASE (test code = 4170221980) 57 U/L 0-220 Lab Interpretation (test cod e = 63797-6) Normal [facility] WITH [id number] 03:00:00* Test Item Value Reference Range Interpretation Comme nts WBC (test code = 6690-2) See_Comment [Automated [employer]] The system which generated this result transmitted reference range: 4.20 - 10.70 10*3/?L. The reference range was not used to interpret this result as normal/abnormal. RBC (test code = 789-8) See_Comment [Automated [employer]] The system which generated this result transmitted [...] g/dL 31.2-35 H RDW-SD (test code = 32993-9) 35.3 fL 38.5-51.6 L RDW-CV (test code = 788-0) 11.9 % 12.1-15.4 L PLT (test code = 777-3) See_Comment L [Automated messa ge] The system which generated this result transmitted reference range: 150 - 328 10*3/?L. The reference range was not used to interpret this result as normal/abnormal. MPV (test code = 80391-0) 9.3 fL 9.8-13 L NRBC/100 WBC (test code = 6276028698) See_Comment [Automated [employer] ssage] The system which generated this result transmitted reference range: 0.0 - 10.0 /100 WBCs. The reference range was not used to interpret this result as normal/abnormal. NRBC x10^3 (test code = 0818863408) <0.01 See_Comment [Automated messa ge] The system which generated this result transmitted reference range: 10*3/?L. The reference range was not used to interpret this result as normal/abnormal. GRAN MAT (NEUT) % (test code = 770-8) 74.6 % IMM GRAN % (test code = 9240835385) 0.30 % LYMPH % (test code = 736-9) 18.7 % MONO % (test code = 5905-5) 4.8 % EOS % (test code = 713-8) 1.1 % BASO % (test code = 706-2) 0.5 % GRAN MAT x10^3(ANC) (test code = 9495046694) 4.71 10*3/uL 1.99-6.95 IMM GRAN x10^3 (test code = 6289677428) <0.03 0-0.06 LYMPH x10^3 (test code = 731-0) 1.18 10*3/uL 1.09-3.23 MONO x10^3 (test code = 742-7) 0.30 10*3/uL 0.36-1.02 L EOS x10^3 (test code = 711-2) 0.07 10*3/uL 0.06-0.53 BASO x10^3 (test code = 704-7) 0.03 10*3/uL 0.01-0.09 Lab Interpretation (test code = 22170-6) [facility]normal [facility]2020-06-26 02:46:00* Test Item Value Reference Range Interpretation Comme nts POCT GLU (test code = 3857102845) 248 mg/dL 70-110 H Lab Interpretation (test cod e = 03449-4) Abnormal [facility] Notes Date/Time Note Provider Source 2024-02-01 13:40:26 Esther Clayton sent referral sent to HIM Adelita Mcmullen [facility] 2023-12-13 21:39:04 Patient leaving AMA,discussed risks of leaving against medical advice/final dispositon, Dr. Farris aware and notified of patient's decision. Patient encouraged to seek medical attention for any new/prolonged/worsening of symptoms and stressed importance of follow up with a medical provider as soon as possible. AMA form explained, patient signed form. IV d'cd, dressing to site. Patient leaving ambulatory with steady gait, appears in no distress Jeannie De La Torre RN [facility] 2023-12-13 19:50:27 ERP with patient and pt's to assess and discuss POC/dispo. Bessy Jean-Baptiste RN [facility] 2023-12-13 19:13:59 Obtained PIV, labs, returned pt to lobby via w/c w/ in accompaniment. NAD noted. A&OX4. RA, resp even and unlabored. [facility] 2023-12-13 17:25:19 Pt states" I have dizziness, vomiting for 1 week and when I walked I feel short of breath" No edema or swelling on both feet, denies any cardiac hx but like to be check. Destiny Herrera RN [facility] 2021-10-03 19:14:00 [facility] enter [address] [place] [address] Orthopedics Operative Note Signed Patient: Alex Auguste Medical Record#: [id number] : 1980 Acct:[id number] Age/Sex: 41 / M ADM Date: 10/03/21 Loc: [facility] Room: Report Number: [id number]: Chetan Coleman MD Orthopedic Operative [...] reduction pin fixation of distal phalanx fracture 53454 Left ring finger repair of wound involving matrix 33705 Left small finger reduction pin fixation of distal phalanx fracture 60715 Left small finger repair of wound involving matrix 16447 Surgeon: Chetan Coleman MD Anesthesia: General, see [...] the Bactrim to cover him as we move into the closed wound fixation phase of case. Intraoperatively we checked for any signs of active infection there are none including deep in the bone cleft which was given 1 final cleaning with gauze vegetable packer sponges and then he still continues to fade away additional skin level dermis full-thickness necrosis on the ulnar distal border of both digits requiring sharp blade removal leaving only what is clinically apparently viable willing down the wound each time did so again on both digits with the sharp blade then looking directly through the gaping fracture cleft we entered the 1st wire watch to come [...] even a role for any turning on drill otherwise [...] included well-padded soft covering but a outer shell splint for protection DISPOSITION: Patient discharged to home. Patient's status is stable. Patient has been given [facility] 10-page instructional packet and a follow-up appointment. Patient instructed to call the practice number on front of packet for any questions including date and time of next encounter. Dr. Coleman has directly prescribed to patient all outpatient medications, none to be dispensed by [facility]. The specific instruction at time of hospital discharge for any medications not directly prescribed for patient by Dr. Coleman is that patient MUST receive all directives to either take or not take those medications from the practitioner who has originally prescribed those medications after having evaluated and diagnosed the related medical condition(s) non hand surgery conditions that Dr. Coleman does not evaluate or treat and thus CANNOT state to either take or not take those medications. Note that the preceding text indeed includes standardized language that accurately describes my personal methods of performing this procedure and is used for senior quality assurance analyst reproducibly on each case including that of [...] Coleman MD 10/03/211953 DD/ 13 TD/TT: 10/03/211913 Rn Birthing: LIV cc: LIV; PCPNO* Chetan Coleman MD; Pcp-Md SANDRA Barragan [facility]
--- NOTE | 2024-05-02 22:39 | RAD REPORT ---
EXAMINATION: CT ABDOMEN AND PELVIS WITHOUT CONTRAST CLINICAL INDICATION: Male, 43 years old.ABD PAIN TECHNIQUE: CT abdomen and pelvis was performed, without IV contrast, as per department protocol. Axia l, sagittal and coronal reconstructions were obtained. One or more of the following dose reduction techniques were used: Automated exposure control, adjustment of the mA and/or kV according to the pat ient size, and/or iterative reconstruction. Unless otherwise specified, incidental findings do not require dedicated imaging follow-up. HL3070. IV CONTRAST: Not administered. COMPARISON: 01/10/2024 FINDINGS: The lack of intravenous contrast limits the sensitivity of this exam for evaluation of solid visceral organs, vascular structures, and retroperitoneum. LOWER CHEST: Mild circumferential thickening distal esophagus which may reflect esophagitis. LIVER: Normal in size and contour. No focal lesion. GALLBLADDER/BILE DUCTS: No biliary ductal dilatation.? PANCREAS: Distal pancreatectomy with cystic structure that is unchanged. SPLEEN: The spleen is enlarged. Prominent perisplenic collaterals. ADRENALS: Normal; no mass. KIDNEYS AND URETERS: Normal size and contour. No hydronephrosis. URINARY BLADDER: Normal contour. GASTROINTESTINAL TRACT: Stomach is non-dilated. Small bowel has normal course and caliber. No colonic wall thickening or pericolonic inflammatory changes. No appendicitis. PERITONEUM: No free fluid. ABDOMINAL AORTA AND OTHER VESSELS: Normal caliber aorta and IVC. REPRODUCTIVE ORGANS: No pathologic process. MUSCULOSKELETAL: No acute or suspicious osseous abnormality. ADDITIONAL FINDINGS: None. IMPRESSION: No acute or significant abnormalities in the abdomen or pelvis, with evaluation limited by lack of IV contrast. Unchanged incidental findings as noted above.
[2024-05-02 22:41] LABS: Absolute Eosinophils 0.1 K/uL (0-0.5); Absolute Lymphocytes (CBC) 1.5 K/uL (0.7-4.9); Absolute Monocytes 0.2 K/uL (0.1-1.3); Absolute Neutrophil 2.7 K/uL (1.8-8.0); Basophils % 0.9 % (0-1.3); Eosinophils % 1.9 % (0-4.4); Hematocrit 41.1 % (39.6-49.0); Hemoglobin 14.4 g/dL (13.6-17.9); Lymphocytes % 33.5 % (15.3-44.8); MCH 29.5 pg (27.0-35.0); MCHC 35.1 g/dL (32.0-36.0); MPV 7.3 fL (7.6-11.3); Neutrophils % 58.7 % (41.7-73.7); Nucleated Red Blood Cells % 0.6 % (0-0); Platelets 128 thou/uL (152-406); Red Cell Distribution Width 12.5 % (12.1-15.2)
[2024-05-02] MEDS ORDERED: MORPHINE 4 MG/ML SYR ONE (22:45)
[2024-05-02] MEDS ORDERED: KETOROLAC 30 MG/ML INJ ONE (22:45)
[2024-05-02] MEDS ORDERED: FAMOTIDINE 20 MG/2 ML VIAL IV ONE (22:45)
[2024-05-02] MEDS ORDERED: METOCLOPRAMIDE 10 MG/2mL INJ ONE (22:45)
[2024-05-02] MEDS ORDERED: NA CHLORIDE 0.9% 1,000 ML ONE (22:46)
[2024-05-02 22:50] LABS: Albumin 4.1 g/dL (3.4-5.0); Albumin/Globulin Ratio 1.2 (1.1-1.8); Anion Gap 6.6 mEq/L (5.0-15.0); Globulin 3.4 g/dL (2.3-3.5); Potassium 3.6 mEq/L (3.5-5.1); Protein, Total 7.5 g/dL (6.4-8.2)
[2024-05-03] MEDS ORDERED: PROMETHAZINE 25 MG TABLET ONE (00:56)
[2024-05-03] MEDS ORDERED: TRAMADOL HCL 50 MG TAB ONE (00:56)
--- NOTE | 2024-05-03 00:56 | ER ---
Nurse's Notes [facility] Name: Alex Auguste Age: 43 yrs Sex: Male : 1980 Arrival Date: 05/02/2024 Time: 21:03 Bed 19 Private MD: Diagnosis: Upper abdominal pain, unspecified;Recurrent Abdominal pain Presentation: 05/02 21:58 Chief complaint: Patient states: Epigastric abdominal pain onset 3 days ago. Pt also cm10 reports that he has had diarrhea for 1 month. Coronavirus screen: Client denies travel out of the [place] in the last 14 days. Ebola Screen: Patient denies travel to an Ebola-affected area in the 21 days before illness onset. No symptoms or risks identified at this time. Initial Sepsis Screen: Does the patient meet any 2 criteria? No. Patient's initial sepsis screen is negative. Does the patient have a suspected source of infection? No. Patient's initial sepsis screen is negative. Risk Assessment: Do you want to hurt yourself or someone else? Patient reports no desire to harm self or others. Onset of symptoms was April 29, 2024. 21:58 Method Of Arrival: Ambulatory cm10 21:58 Acuity: [place] 3 cm10 Triage Assessment: 21:59 General: Appears in no apparent distress. comfortable, Behavior is calm, cooperative. cm10 Neuro: No deficits noted. Level of Consciousness is awake, alert, obeys commands, Oriented to person, place, time, situation, Appropriate for age. Respiratory: No deficits noted. Airway is patent Respiratory effort is even, unlabored, Respiratory pattern is regular, symmetrical. Historical: - Allergies: 21:59 No Known Allergies; cm10 - PMHx: 21:59 angina pectoris; Chronic Pancreatitis; Diabetes - IDDM; GERD; High Triglycerides; cm10 Hypertensive disorder; - PSHx: 21:59 Cholecystectomy; hand; cm10 - Immunization history:: Adult Immunizations. - Infectious Disease History:: Denies. - Social history:: Smoking status: Patient reports the use of cigarette tobacco products, denies chronic smoking, but will smoke occasionally, Reported history of juuling and/or vaping. - Family history:: not pertinent. Screenin/23 01:30 [facility] ED Fall Risk Assessment (Adult) History of falling in the last 3 months, jb4 including since admission No falls in past 3 months (0 pts) Confusion or Disorientation No (0 pts) Intoxicated or Sedated No (0 pts) Impaired Gait No (0 pts) Mobility Assist Device Used No (0 pt) Altered Elimination No (0 pt) Score/Fall Risk Level 0 - 2 = Low Risk Oriented to surroundings, Maintained a safe environment. Abuse screen: Denies threats or abuse. Nutritional screening: No deficits noted. Tuberculosis screening: No symptoms or risk factors identified. Assessment: 05/02 22:00 General: Appears in no apparent distress. uncomfortable, Behavior is calm, cooperative, jb4 appropriate for age. Pain: Complains of pain in abdomen Pain does not radiate. Pain currently is 10 out of 10 on a pain scale. Neuro: Level of Consciousness is awake, alert, obeys commands, Oriented to person, place, time, situation. Cardiovascular: Patient's skin is warm and dry. Respiratory: Airway is patent Respiratory effort is even, unlabored, Respiratory pattern is regular, symmetrical. GI: Abdomen is flat, non-distended, Reports upper abdominal pain. : No signs and/or symptoms were reported regarding the genitourinary system. EENT: No signs and/or symptoms were reported regarding the EENT system. Derm: Skin is intact, Skin is pink, warm \T\ dry. 23:00 Reassessment: Patient appears in no apparent distress at this time. Patient and/or jb4 family updated on plan of care and expected duration. Pain level reassessed. Patient is alert, oriented x 3, equal unlabored respirations, skin warm/dry/pink. 05/03 00:00 Reassessment: Patient appears in no apparent distress at this time. Patient and/or jb4 family updated on plan of care and expected duration. Pain level reassessed. Patient is alert, oriented x 3, equal unlabored respirations, skin warm/dry/pink. 00:52 Reassessment: Patient appears in no apparent distress at this time. Patient and/or jb4 family updated on plan of care and expected duration. Pain level reassessed. Patient is alert, oriented x 3, equal unlabored respirations, skin warm/dry/pink. Vital Signs: 05/02 21:58 BP 131 / 78; Pulse 92; Resp 16; Temp 98.4; Pulse Ox 99% on R/A; Weight 86.18 kg; Height cm10 5 ft. 10 in. ; Pain 04/20; 23:30 BP 102 / 59; Pulse 71; Resp 16; Pulse Ox 95% ; jb4 05/03 00:30 BP 119 / 79; Pulse 72; Resp 16; Pulse Ox 98% on R/A; jb4 05/02 21:58 Body Mass Index 27.26 (86.18 kg, 177.8 cm) cm10 05/02 21:58 Pain Scale: Adult cm10 Wili Coma Score: 06:25 Eye Response: spontaneous(4). Motor Response: obeys commands(6). Verbal Response: sp4 oriented(5). Total: 15. ED Course: 05/02 21:08 Patient arrived in ED. gm2 21:11 Moises Bocanegra MD is Attending Physician. sp4 21:59 Triage completed. cm10 21:59 Arm band placed on Patient placed in waiting room. cm10 22:32 CT Abd/Pelvis - Without Contrast In Process Unspecified. EDMS 05/03 00:37 Fox Garzon, RN is Primary Nurse. jb4 01:30 Patient has correct armband on for positive identification. Call light in reach. Side jb4 rails up X 1. Provided Education on: discharge instructions.. 01:30 No provider procedures requiring assistance completed. IV discontinued, intact, jb4 bleeding controlled, No redness/swelling at site. Pressure dressing applied. Administered Medications: 05/02 22:30 Drug: morphine IVP or IV 4 mg IVP once over 4 mins Route: IVP; Infused Over: 4 mins; jb4 Site: right antecubital; 05/03 00:53 Follow up: Response: No adverse reaction; Marked relief of symptoms; Pain is decreased jb4 05/02 22:30 Drug: Ketorolac IVP 30 mg IVP once Route: IVP; Site: right antecubital; jb4 05/03 00:53 Follow up: Response: No adverse reaction; Marked relief of symptoms 4 05/02 22:30 Drug: metoCLOPramide IVP 10 mg IVP once; over 1 to 2 minutes Route: IVP; Site: right jb4 antecubital; 05/03 00:54 Follow up: Response: No adverse reaction; Marked relief of symptoms 4 05/02 22:30 Drug: NS 0.9% IV 1000 ml IV at 1000 ml once; to be given as a bolus over 60 minutes jb4 Route: IV; Rate: 1000 ml; Site: right antecubital; 23:30 Follow up: Response: No adverse reaction; IV Status: Completed infusion; IV Intake: jb4 1000ml 22:30 Drug: Famotidine IVP 20 mg IVP once; dilute with 10 mL 0.9% NaCl; give over 2 minutes jb4 Route: IVP; Site: right antecubital; 05/03 00:54 Follow up: Response: No adverse reaction; Marked relief of symptoms jb4 00:58 Drug: traMADol PO 100 mg PO once Route: PO; jb4 01:29 Follow up: Response: No adverse reaction; Marked relief of symptoms jb4 00:58 Drug: Promethazine PO 25 mg PO once Route: PO; jb4 01:29 Follow up: Response: No adverse reaction; Marked relief of symptoms jb4 Point of Care Testing: Blood Glucose: 05/02 21:59 Blood Glucose: 93 mg/dL; cm10 Ranges: Intake: 23:30 IV: 1000ml; Total: 1000ml. jb4 Outcome: 05/03 00:56 Discharge ordered by . spJesica 01:30 Discharged to home ambulatory, with family, jb4 01:30 Condition: stable 01:30 Discharge instructions given to patient, Instructed on discharge instructions, follow up and referral plans. medication usage, Demonstrated understanding of instructions, follow-up care, medications, Prescriptions given X 2, 01:31 Patient left the ED. jb4 Signatures: Dispatcher [employer] EDFox Carballo RN RN jb4 Moises Bocanegra MD MD sp4 Janelle Avilez RN RN cm10 Leona Riggins 2
--- NOTE | 2024-05-03 00:57 | EDPHYS ---
Physician Documentation [facility] Name: Alex Auguste Age: 43 yrs Sex: Male : 1980 Arrival Date: 05/02/2024 Time: 21:03 Bed 19 Private MD: ED Physician Moises Bocanegra HPI: 05/02 21:12 This 43 yrs old Male presents to ER via Unassigned with complaints of sp4 Abdominal Pain, Nausea. 05/03 06:25 43-year-old male presents with complaint of abdominal pain and nausea. Patient states sp4 this is consistent with his recurrent chronic pancreatitis. Historical: - Allergies: 05/02 21:59 No Known Allergies; cm10 - PMHx: 21:59 angina pectoris; Chronic Pancreatitis; Diabetes - IDDM; GERD; High Triglycerides; cm10 Hypertensive disorder; - PSHx: 21:59 Cholecystectomy; hand; cm10 - Immunization history:: Adult Immunizations. - Infectious Disease History:: Denies. - Social history:: Smoking status: Patient reports the use of cigarette tobacco products, denies chronic smoking, but will smoke occasionally, Reported history of juuling and/or vaping. - Family history:: not pertinent. ROS: 05/03 06:25 Constitutional: Negative for fever, chills, and weight loss, positive for abdominal sp4 pain and nausea All other systems are negative, Exam: 06:25 Constitutional: This is a well developed, well nourished patient who is awake, alert, sp4 and in no acute distress. Head/Face: Normocephalic, atraumatic. Eyes: Pupils equal round and reactive to light, extra-ocular motions intact. Lids and lashes normal. Conjunctiva and sclera are not injected. Cornea within normal limits. Periorbital areas with no swelling, redness, or edema. ENT: Nares patent. No nasal discharge, no septal abnormalities noted. Tympanic membranes are normal and external auditory canals are clear. Oropharynx with no redness, swelling, or masses, exudates, or evidence of obstruction, uvula midline. Mucous membranes moist. Neck: Trachea midline, no thyromegaly or masses palpated, and no cervical lymphadenopathy. Supple, full range of motion without nuchal rigidity, or vertebral point tenderness. Chest/axilla: Normal chest wall appearance and motion. Nontender with no deformity. No lesions are appreciated. Cardiovascular: Regular rate and rhythm with a normal S1 and S2. No gallops, murmurs, or rubs. Normal PMI, no JVD. No pulse deficits. Respiratory: Lungs have equal breath sounds bilaterally, clear to auscultation and percussion. No rales, rhonchi or wheezes noted. No increased work of breathing, no retractions or nasal flaring. Abdomen/GI: Soft, with normal bowel sounds. No distension or tympany. No guarding or rebound. No evidence of tenderness throughout. Back: No spinal tenderness. No costovertebral tenderness. Skin: Warm, dry with normal turgor. Normal color with no rashes, no lesions, and no evidence of cellulitis. MS/ Extremity: Pulses equal, no cyanosis. Neurovascular intact. Full, normal range of motion. Neuro: Awake and alert, GCS 15, oriented to person, place, time, and situation. Cranial nerves II-XII grossly intact. Motor strength 5/5 in all extremities. Sensory grossly intact. Psych: Awake, alert, with orientation to person, place and time. Behavior, mood, and affect are within normal limits Vital Signs: 05/02 21:58 BP 131 / 78; Pulse 92; Resp 16; Temp 98.4; Pulse Ox 99% on R/A; Weight 86.18 kg; Height cm10 5 ft. 10 in. ; Pain 04/20; 23:30 BP 102 / 59; Pulse 71; Resp 16; Pulse Ox 95% ; jb4 05/03 00:30 BP 119 / 79; Pulse 72; Resp 16; Pulse Ox 98% on R/A; jb4 05/02 21:58 Body Mass Index 27.26 (86.18 kg, 177.8 cm) cm10 05/02 21:58 Pain Scale: Adult cm10 Wili Coma Score: 06:25 Eye Response: spontaneous(4). Motor Response: obeys commands(6). Verbal Response: sp4 oriented(5). Total: 15. MDM: 05/02 21:13 Medical Screening Exam initiated sp4 05/03 00:55 ED course: IV CONTRAST: Not administered. COMPARISON: 01/10/2024 FINDINGS: The lack of sp4 intravenous contrast limits the sensitivity of this exam for evaluation of solid visceral organs, vascular structures, and retroperitoneum. LOWER CHEST: Mild circumferential thickening distal esophagus which may reflect esophagitis. LIVER: Normal in size and contour. No focal lesion. GALLBLADDER/BILE DUCTS: No biliary ductal dilatation.? PANCREAS: Distal pancreatectomy with cystic structure that is unchanged. SPLEEN: The spleen is enlarged. Prominent perisplenic collaterals. ADRENALS: Normal; no mass. KIDNEYS AND URETERS: Normal size and contour. No hydronephrosis. URINARYBLADDER: Normal contour. GASTROINTESTINAL TRACT: Stomach is non-dilated. Small bowel has normal course and caliber. No colonic wall thickening or pericolonic inflammatory changes. No appendicitis. PERITONEUM: No free fluid. ABDOMINAL AORTA AND OTHER VESSELS: Normal caliber aorta and IVC. REPRODUCTIVE ORGANS: No pathologic process. MUSCULOSKELETAL: No acute or suspicious osseous abnormality. ADDITIONAL FINDINGS: None. IMPRESSION: No acute or significant abnormalities in the abdomen or pelvis, with evaluation limited by lack of IV contrast. Unchanged incidental findings as noted above. . 06:25 Differential diagnosis: Nonspecific abd pain, gastritis, cholecystitis, pancreatitis, sp4 diverticulitis. Data reviewed: vital signs, nurses notes, lab test result(s), radiologic studies, CT scan. 05/02 21:13 Order name: CBC with Diff; Complete Time: 00:48 sp4 05/02 21:13 Order name: CMP; Complete Time: 00:48 sp4 05/02 21:13 Order name: Lipase; Complete Time: 00:48 sp4 05/02 22:09 Order name: Glucose, Ancillary Testing; Complete Time: 00:48 EDMS 05/02 21:58 Order name: CT Abd/Pelvis - Without Contrast; Complete Time: 00:48 sp4 05/02 21:13 Order name: IV Saline Lock; Complete Time: 23:10 sp4 05/02 21:13 Order name: Labs collected and sent; Complete Time: 23:10 sp4 Administered Medications: 05/02 22:30 Drug: morphine IVP or IV 4 mg IVP once over 4 mins Route: IVP; Infused Over: 4 mins; jb4 Site: right antecubital; 05/03 00:53 Follow up: Response: No adverse reaction; Marked relief of symptoms; Pain is decreased 4 05/02 22:30 Drug: Ketorolac IVP 30 mg IVP once Route: IVP; Site: right antecubital; jb4 05/03 00:53 Follow up: Response: No adverse reaction; Marked relief of symptoms jb4 05/02 22:30 Drug: metoCLOPramide IVP 10 mg IVP once; over 1 to 2 minutes Route: IVP; Site: right jb4 antecubital; 05/03 00:54 Follow up: Response: No adverse reaction; Marked relief of symptoms jb4 05/02 22:30 Drug: NS 0.9% IV 1000 ml IV at 1000 ml once; to be given as a bolus over 60 minutes jb4 Route: IV; Rate: 1000 ml; Site: right antecubital; 23:30 Follow up: Response: No adverse reaction; IV Status: Completed infusion; IV Intake: jb4 1000ml 22:30 Drug: Famotidine IVP 20 mg IVP once; dilute with 10 mL 0.9% NaCl; give over 2 minutes jb4 Route: IVP; Site: right antecubital; 05/03 00:54 Follow up: Response: No adverse reaction; Marked relief of symptoms jb4 00:58 Drug: traMADol PO 100 mg PO once Route: PO; jb4 01:29 Follow up: Response: No adverse reaction; Marked relief of symptoms jb4 00:58 Drug: Promethazine PO 25 mg PO once Route: PO; jb4 01:29 Follow up: Response: No adverse reaction; Marked relief of symptoms jb4 Point of Care Testing: Blood Glucose: 05/02 21:59 Blood Glucose: 93 mg/dL; cm10 Ranges: Critical Glucose Levels:Adult <50 mg/dl or >400 mg/dl <40 mg/dl or >180 mg/dl Disposition: 05/03 06:27 Chart complete. sp4 Disposition Summary: 05/03/24 00:56 Discharge Ordered Notes: Location: Home sp4 Problem: new sp4 Symptoms: have improved sp4 Condition: Stable sp4 Diagnosis - Upper abdominal pain, unspecified sp4 - Recurrent Abdominal pain sp4 Followup: sp4 - With: Private Physician - When: 7 - 10 days - Reason: Recheck today's complaints Discharge Instructions: - Discharge Summary Sheet sp4 - Pain Without a Known Cause sp4 Forms: - Patient Portal Instructions sp4 Prescriptions: - Tramadol 50 mg Oral Tablet - take 1 tablet ORAL route every 8 hours as needed; 12 tablet; Refills: 0, sp4 Product Selection Permitted - promethazine 25 mg Oral tablet - take 1 tablet ORAL route every 8 hours As needed; 20 tablet; Refills: 0, sp4 Product Selection Permitted Signatures: Dispatcher [employer] Fox Isidro, RN RN jb4 Moises Bocanegra MD MD sp4 Janelle Avilez RN RN cm10
[2024-05-03 09:54] VITALS: TEMP 98.4
[2024-05-03 09:56] VITALS: BP 119/79; O2SAT 98
== END 2024-05-03 01:31 | disposition home or self-care (01) ==
LOC: ER 21:03
DX: R10.10 Upper abdominal pain, unspecified (principal); R10.9 Unspecified abdominal pain; R11.0 Nausea; F17.210 Nicotine dependence, cigarettes, uncomplicated
CPT/HCPCS: 85025; 36415; 82947; 83690; 80053; 74176; Q0169; J2765; J7030

== ENCOUNTER 2024-05-31 01:05 | Inpatient (IN) | payer BC ==
--- OUTSIDE RECORDS SUMMARY | 2024-05-31 01:11 | XMS REPORT | Continuity of Care Document ---
Author Name Unknown Address [address] [place] [address] [facility] Address [address] [facility] [address] [place] [address] Care Team Providers Care Medical Education Specialist Name Role Phone Briana Hughes Primary Care Physician [phone] Chetan Coleman Attending Clinician Unavailable Doctor Unassigned, Kief Attending Clinician U Briana Lebron Attending Clinician [phone] Cole Guan MD Attending Clinician [phone] FORTINO FARRSI Attending Clinician Unavailable Fortino Farris MD Attending Clinician [phone] Nader Randall Attending Clinician [phone] Doctor Unassigned, Kief Attending Clinician U Lillian Pickett Attending Clinician [phone] Madeline MCDONNELL, Annita Huizar Attending Clinician [phone] Kofi Beebe MD Attending Clinician [phone] Laurence Jose MD Attending Clinician [phone] COLE GUAN Attending Clinician Unavailabl e FORTINO FARRIS Admitting Clinician Unavailable Laurence Jose MD Admitting Clinician [phone] Payers Payer Name Policy Type Policy Number Effective Date Expirati on Date Source [facility] [id number] 2019 00:00:00 Problems Condition Name Condition Details Condition Category Status Onset Date Resolution Date Last Treatment Date Treating Clinician Comments Source Acute on chronic pancreatit is Acute on chronic pancreatit is Disease Active 2019-07 00:00: 00 [facility] Hypertrigl yceridemia Hypertrigl yceridemia Disease Active 12-29 00:00: 00 [facility] Type 2 diabetes mellitus with complicati on, with long-term current use of insulin Type 2 diabetes mellitus with complicati on, with long-term current use of insulin Disease Active 12-29 00:00: 00 [facility] Type 2 diabetes mellitus with complicati on, with long-term current use of insulin Type 2 diabetes mellitus with complicati on, with long-term current use of insulin Disease Active 12-29 00:00: 00 [facility] Diplopia Diplopia Disease Active 2014-07 00:00: 00 [facility] Diabetes mellitus type 2, uncontroll ed, without complicati ons Diabetes mellitus type 2, uncontroll ed, without complicati ons Disease Active 04-04 00:00: 00 Overview: Formattin g of this note might be different from the original. 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 [facility] Allergies, Adverse Reactions, Alerts Allergy Name Allergy Type Status Severity Reaction(s) Onset Date Inactive Date Treating Clinician Comments Source No Known Drug Allergie s DA Active U 10-03 00:00: 00 [facility] No Known Drug Allergie s DA Active U 3-21 00:00: 00 [facility] No Known Drug Allergie s DA Active U 3-17 00:00: 00 [facility] NO KNOWN ALLERGIE S Drug Class Active [facility] Social History Social Habit Start Date Stop Date Quantity Comments Source History of tobacco use Snuff User [facility] Exposure to SARS-CoV-2 (event) Not sure [facility] Alcohol intake 2020-06-25 00:00:00 2020-06-25 00:00:00 Current non-drinker of alcohol (finding) [facility] Alcoholic beverage intake 2020-06-25 00:00:00 2020-06-25 00:00:00 0 /d [facility] History of Social function 2020-06-25 00:00:00 2020-06-25 00:00:00 [facility] Tobacco use and exposure 2015-04-22 00:00:00 2015-04-22 00:00:00 User of smokeless tobacco [facility] Sex assigned at 1980 00:00:00 1980 00:00:00 [facility] Smoking Status Start Date Stop Date Source Never smoked tobacco [facility] Medications Ordered Medication Name Filled Medication Name Start Date Stop Date Current Medication? Ordering Clinician Indication Dosage Frequency Signature (SIG) Comments Components Source insulin regular human (HUMULIN R) injection 6 Units 12-13 03:00: 00 12-13 02:04 :00 No 6U 6 Units, Slow IV Push, ONCE, 1 dose, On Wed12/13/23 at 2200, STAT, Indication for insulin: Hyperglyce adam [facility] ondansetron (ZOFRAN (PF)) injection 4 mg 12-13 03:00: 00 12-13 02:05 :00 No 4mg 4 mg, Slow IV Push, ONCE, 1 dose, On Wed12/13/23 at 2200, ANA MARIA [facility] morpHINE (4 mg/mL) injection 4 mg 12-13 02:00: 00 12-13 02:06 :00 No 4mg 4 mg, Slow IV Push, ONCE, 1 dose, On Wed12/13/23 at 2100, STAT [facility] insulin regular human (HUMULIN R) injection 6 Units 12-13 02:00: 00 12-13 01:19 :00 No 6U 6 Units, Slow IV Push, ONCE, 1 dose, On Wed12/13/23 at 2100, STAT, Indication for insulin: Hyperglyce adam [facility] NaCl 0.9% (NS) bolus infusion 1,000 mL 12-13 02:00: 00 12-13 02:34 :00 No 1000mL at 999 mL/hr, 1,000 mL, IV Infusion, ONCE, 1 dose, On Wed12/13/23 at 2100, STAT [facility] iopamidol (ISOVUE 370-500 mL) injection 79 mL 12-13 01:05: 00 12-13 01:05 :00 No [id number] 79mL 79 mL, Intravenou s, ONCE, 1 dose, On Wed12/13/23 at 2015, Routine [facility] morpHINE injection 2 mg 11-16 22:00: 00 11-16 22:00 :00 No 2mg 2 mg, Slow IV Push, ONCE, 1 dose, 11/16/20 at 1700, STAT [facility] predniSONE (DELTASONE) tablet 20 mg 11-16 21:30: 00 11-16 20:49 :00 No 20mg 20 mg, Oral, ONCE, 1 dose, 11/16/20 at 1630, ANA MARIA [facility] amoxicillin -clavulanat e (AUGMENTIN) 875-125 mg per tablet 1 tablet 11-16 21:30: 00 11-16 20:49 :00 No 1{tbl} 1 tablet, Oral, ONCE, 1 dose, 11/16/20 at 1630, Routine
Reason for Anti-Infec tive: Documented Infection< br>Documen j luis Infection Site: Abdominal< br>Duratio n of Therapy: 10 days [facility] iopamidol (ISOVUE 370-500 mL) injection 100 mL 11-16 20:45: 00 11-16 19:30 :00 No [id number] 100mL 100 mL, Intravenou s, ONCE, 1 dose, 11/16/20 at 1545, Routine [facility] morpHINE injection 4 mg 11-16 20:15: 00 11-16 19:12 :00 No 4mg 4 mg, Slow IV Push, ONCE, 1 dose, 11/16/20 at 1515, STAT [facility] ondansetron (ZOFRAN (PF)) injection 4 mg 11-16 19:30: 00 11-16 18:28 :00 No 4mg 4 mg, Slow IV Push, ONCE, 1 dose, 11/16/20 at 1430, ANA MARIA [facility] NaCl 0.9% (NS) bolus infusion 1,000 mL 11-16 19:30: 00 11-16 21:16 :00 No 1000mL at 999 mL/hr, 1,000 mL, IV Infusion, ONCE, 1 dose, 11/16/20 at 1430, STAT [facility] amoxicillin -clavulanat e 875-125 mg per tablet 11-16 00:00: 00 Yes [id number] 1{tbl} Take 1 tablet by mouth every 12 (twelve) hours. [facility] predniSONE 20 mg tablet 11-16 00:00: 00 Yes [id number] 1 PO BID x 4 days [facility] ibuprofen (IBU) tablet 800 mg 07-28 23:30: 00 07-28 22:44 :00 No 800mg 800 mg, Oral, ONCE, 1 dose, 07/28/20 at 1730, ANA MARIA [facility] Diclofenac Sodium (VOLTAREN) 1 % gel 07-28 00:00: 00 Yes [id number] Apply to area(s) 2 (two) times daily. [facility] insulin glargine (LANTUS U-100) injection 36 Units 2019-07 03:00: 00 Yes 36U 36 Units, Subcutaneo us, QHS, First dose (after last modificati on) on 06/29/20 at 2100, Until Discontinu ed, Routine [facility] gemfibroziL 600 mg tablet 2019-07 01:33: 08 Yes 600mg Take 600 mg by mouth 2 (two) times daily before breakfast and dinner. [facility] metoprolol tartrate 25 mg tablet 2019-07 01:33: 08 Yes 25mg Take 25 mg by mouth 2 (two) times daily. [facility] Pantoprazol e 40 mg delayed-rel ease suspension 2019-07 01:33: 08 Yes 40mg Take 40 mg by mouth daily. [facility] busPIRone 10 mg tablet 2019-07 01:33: 08 Yes 10mg Take 10 mg by mouth 2 (two) times daily. [facility] niacin 500 mg tablet 2019-07 01:33: 08 Yes 500mg Take 500 mg by mouth daily with breakfast. [facility] lipase-prot ease-amylas e (CREON) 36,000-114, 000- 180,000 unit CpDR 2019-07 01:33: 08 Yes [id number] Take 36,000 Units by mouth with all meals. Take 2 capsules by mouth with meals and 1 with each snack. [facility] losartan 25 mg tablet 2019-07 01:33: 08 Yes 25mg Take 25 mg by mouth daily. [facility] vortioxetin e 10 mg Tab 2019-07 01:33: 08 Yes 10mg Take 10 mg by mouth at bedtime. [facility] gemfibroziL 600 mg tablet 2019-07 19:33: 08 Yes 600mg Take 600 mg by mouth 2 (two) times daily before breakfast and dinner. [facility] metoprolol tartrate 25 mg tablet 2019-07 19:33: 08 Yes 25mg Take 25 mg by mouth 2 (two) times daily. [facility] Pantoprazol e 40 mg delayed-rel ease suspension 2019-07 19:33: 08 Yes 40mg Take 40 mg by mouth daily. [facility] busPIRone 10 mg tablet 2019-07 19:33: 08 Yes 10mg Take 10 mg by mouth 2 (two) times daily. [facility] niacin 500 mg tablet 2019-07 19:33: 08 Yes 500mg Take 500 mg by mouth daily with breakfast. [facility] lipase-prot ease-amylas e (CREON) 36,000-114, 000- 180,000 unit CpDR 2019-07 19:33: 08 Yes [id number] Take 36,000 Units by mouth with all meals. Take 2 capsules by mouth with meals and 1 with each snack. [facility] losartan 25 mg tablet 2019-07 19:33: 08 Yes 25mg Take 25 mg by mouth daily. [facility] vortioxetin e 10 mg Tab 2019-07 19:33: 08 Yes 10mg Take 10 mg by mouth at bedtime. [facility] insulin glargine (LANTUS U-100) injection 15 Units 2019-07 15:00: 00 06-29 14:07 :00 No 15U 15 Units, Subcutaneo us, ONCE, 1 dose, 06/29/20 at 0900, Routine [facility] morpHINE injection 2 mg 2019-07 08:15: 00 Yes 2mg 2 mg, Slow IV Push, Q6HPRN, Starting 06/29/20 at 0215, Until Discontinu ed, Routine, Pain (scale 7-10) [facility] atorvastati n 40 mg tablet 2019-07 00:00: 00 07-30 05:59 :00 No [id number] 40mg Take 1 tablet by mouth at bedtime for 30 days. [facility] haloperidol lactate (HALDOL) injection 5 mg 2019-07 22:30: 00 06-28 22:51 :00 No 5mg 5 mg, Slow IV Push, ONCE NOW, 1 dose, 06/28/20 at 1630, Routine [facility] LORazepam (ATIVAN) injection 1 mg 2019-07 21:00: 00 06-28 20:16 :00 No 1mg 1 mg, Slow IV Push, ONCE, 1 dose, Wed06/28/20 at 1500, Routine [facility] FLUoxetine (PROZAC) capsule 20 mg 2019-07 20:30: 00 Yes 20mg 20 mg, Oral, DAILY, First dose on Wed06/28/20 at 1430, Until Discontinu ed, Routine [facility] NaCl 0.9% (NS) IV infusion 1,000 mL 2019-07 14:30: 00 Yes 1000mL at 100 mL/hr, IV Infusion, CONTINUOUS , Starting Wed06/28/20 at 0830, Until Discontinu ed, Routine [facility] KCL (KLOR-CON M20) tablet 40 mEq 2019-07 14:30: 00 06-28 14:38 :00 No 40meq 40 mEq, Oral, ONCE, 1 dose, Wed06/28/20 at 0830, Routine [facility] Sliding Scale Insulin-Reg ular + Fsbg Testing 2019-07 13:30: 00 Yes Subcutaneo us, AC+HS, First dose on Wed06/28/20 at 0730, Until Discontinu ed, Routine [facility] glucagon (GLUCAGEN DIAGNOSTIC KIT) injection 1 mg 2019-07 13:23: 08 Yes 1mg 1 mg, Intramuscu lar, PRN, Starting Wed06/28/20 at 0723, Until Discontinu ed, ANA MARIA, Blood Glucose < or = 70 mg/dL and patient is unable to swallow or has mental changes. [facility] dextrose 50 % in water (D50W) injection 25 mL 2019-07 13:23: 08 Yes 25mL 25 mL, Slow IV Push, PRN, Starting Wed06/28/20 at 0723, Until Discontinu ed, ANA MARIA, Blood Glucose < or = 70 mg/dL and patient is unable to swallow or has mental status changes. [facility] dextrose 50 % in water (D50W) injection 50 mL 2019-07 07:00: 06-28 06:00 :00 No 50mL 50 mL, Slow IV Push, ONCE, 1 dose, Wed06/28/20 at 0100, ANA MARIA [facility] metoprolol tartrate (LOPRESSOR) tablet 25 mg 2019-07 02:00: 00 Yes 25mg 25 mg, Oral, BID, First dose on Wed06/27/20 at 2000, Until Discontinu ed, Routine [facility] omega 3-dha-epa-f beckie oil (FISH OIL) capsule 1,000 mg 2019-07 20:00: 00 Yes 1000mg 1,000 mg, Oral, TID, First dose on Wed06/27/20 at 1400, Until Discontinu ed, Routine
Reason for non-formul caitlyn use: PATIENT CURRENTLY TAKING NONFORMULA RY PRODUCT
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
If glucose < 250, start D5W and titrate to keep glucose 100-180
[facility] atorvastati n (LIPITOR) tablet 40 mg 2019-07 03:00: 00 Yes 40mg 40 mg, Oral, QHS, First dose on Wed06/26/20 at 2100, Until Discontinu ed, Routine [facility] gemfibroziL (LOPID) tablet 600 mg 2019-07 02:00: 00 Yes 600mg 600 mg, Oral, BID, First dose on Wed06/26/20 at 2000, Until Discontinu ed, Routine [facility] busPIRone (BUSPAR) tablet 10 mg 2019-07 02:00: 00 Yes 10mg 10 mg, Oral, BID, First dose on Wed06/26/20 at 2000, Until Discontinu ed, Routine [facility] enoxaparin (LOVENOX) injection 40 mg 2019-07 23:00: 00 Yes 40mg 40 mg, Subcutaneo us, DAILY, First dose on Wed06/26/20 at 1700, Until Discontinu ed, Routine [facility] morpHINE injection 4 mg 2019-07 16:30: 00 06-27 07:29 :00 No 4mg 4 mg, Slow IV Push, Q3HPRN, Starting Wed06/26/20 at 1030, Until Padmini 06/27/20 at 0129, Routine, Pain (scale 7-10) [facility] insulin regular in 0.9 % NaCl (MYXREDLIN) 100 unit/100 mL (1 unit/mL) RTU IV infusion 2019-07 16:16: 21 06-27 11:12 :30 No 8U/h 8 Units/hr (8 mL/hr), IV Infusion, TITRATE, Notify hospitalis t to adjust insulin rate based on Triglyceri de level, Starting Wed06/26/20 at 1016
If glucose < 250, start D5W and titrate to keep glucose 100-180
[facility] proCHLORper azine (COMPAZINE) 10 mg in NaCl 0.9% (NS) piggyback 2019-07 16:15: 52 Yes 10mg 10 mg, IV Piggyback, Q4HPRN, Starting Wed06/26/20 at 1015, Until Discontinu ed, 50 mL [facility] ketorolac (TORADOL) injection 30 mg 2019-07 16:15: 35 Yes 30mg 30 mg, Slow IV Push, Q6HPRN, Starting Wed06/26/20 at 1015, Until Discontinu ed, Routine, Pain (scale 4-6)
Fa culty member approving Restricted medication : ELLIS ALMEIDA [facility] NaCl 0.9% (NS) IV infusion 1,000 mL [...] Wed06/26/20 at 0600, Until Discontinu ed, Routine [facility] proMETHazin e (PHENERGAN) 12.5 mg in NaCl 0.9% (NS) 50 mL IV piggyback 2019-07 11:21: 28 Yes 12.5mg 12.5 mg, IV Piggyback, Q4HPRN, Starting Wed06/26/20 at 0521, Until Discontinu ed, Routine, Nausea and Vomiting (N/V) [facility] morpHINE injection 4 mg 2019-07 11:21: 11 06-26 16:15 :46 No 4mg 4 mg, Slow IV Push, Q4HPRN, Starting Wed06/26/20 at 0521, Until Wed06/26/20 at 1015, Routine, Pain (scale 7-10) [facility] NaCl 0.9% (NS) IV infusion 1,000 mL 2019-07 08:00: 00 06-26 14:01 :34 No 1000mL at 125 mL/hr, IV Infusion, CONTINUOUS , Starting Wed06/26/20 at 0200, Until Wed06/26/20 at 0801, Routine [facility] dextrose 50 % in water (D50W) injection 25 mL 2019-07 07:48: 20 06-28 13:26 :23 No 25mL 25 mL, Slow IV Push, PRN, Starting Wed06/26/20 at 0148, Until Wed06/28/20 at 0726, ANA MARIA, Blood Glucose < or = 70 mg/dL and patient is unable to swallow or has mental status changes. [facility] proMETHazin e (PHENERGAN) 25 mg in NaCl 0.9% (NS) 50 mL piggyback 2019-07 07:45: 00 06-26 07:45 :00 No 25mg 25 mg, IV Piggyback, ONCE, 1 dose, Wed06/26/20 at 0145, 50 mL [facility] FENTanyl PF (SUBLIMAZE (PF)) injection 100 mcg 2019-07 07:45: 00 06-26 06:34 :00 No 100ug 100 mcg, Slow IV Push, ONCE, 1 dose, Wed06/26/20 at 0145, Routine [facility] morpHINE injection 2 mg 2019-07 07:44: 30 06-26 11:21 :45 No 2mg 2 mg, Slow IV Push, Q4HPRN, Starting Wed06/26/20 at 0144, Until Wed06/26/20 at 0521, Routine, Pain (scale 7-10) [facility] acetaminoph en (TYLENOL) tablet 650 mg 2019-07 07:44: 20 Yes 650mg 650 mg, Oral, Q6HPRN, Starting Wed06/26/20 at 0144, Until Discontinu ed, Routine, Pain (scale 1-3) [facility] proMETHazin e (PHENERGAN) 25 mg in NaCl 0.9% (NS) 50 mL piggyback 2019-07 05:15: 00 06-26 05:15 :00 No 25mg 25 mg, IV Piggyback, ONCE, 1 dose, Wed06/25/20 at 2315, 50 mL [facility] FENTanyl PF (SUBLIMAZE (PF)) injection 100 mcg 2019-07 05:00: 00 06-26 03:51 :00 No 100ug 100 mcg, Slow IV Push, ONCE, 1 dose, 06/25/20 at 2300, STAT [facility] iohexol (OMNIPAQUE 350 BULK-150 mL) injection 120 mL 2019-07 04:45: 00 06-26 04:45 :00 No 120mL 120 mL, Intravenou s, ONCE, 1 dose, 06/25/20 at 2245, Routine [facility] NaCl 0.9% (NS) IV infusion 1,000 mL 2019-07 04:00: 00 06-26 14:01 :29 No 1000mL at 999 mL/hr, Intravenou s, CONTINUOUS , Starting 06/25/20 at 2200, Until 06/26/20 at 0801, Routine [facility] ondansetron (ZOFRAN (PF)) injection 4 mg 2019-07 04:00: 00 06-26 03:10 :00 No 4mg 4 mg, Slow IV Push, ONCE, 1 dose, 06/25/20 at 2200, ANA MARIA [facility] FENTanyl PF (SUBLIMAZE (PF)) injection 75 mcg 2019-07 04:00: 00 06-26 03:09 :00 No 75ug 75 mcg, Slow IV Push, ONCE, 1 dose, 06/25/20 at 2200, Routine [facility] LOVAZA, omega-3-aci d ethyl esters, 1 gram capsule 731 00:00: 00 Yes [id number] 3g Take 3 capsules by mouth daily. [facility] ondansetron (ZOFRAN ODT) 4 mg disintegrat ing tablet 11-11 00:00: 00 Yes [id number] 4mg Take 1 tablet by mouth every 8 (eight) hours as needed for Nausea and Vomiting (N/V). [facility] Insulin Levering, Disposable, (BD INSULIN PEN NEEDLE UF) 31 gauge x 5/16" Ndle 9-25 00:00: 00 Yes QID, DX:E11.9 [facility] Insulin Levering, Disposable, (BD INSULIN PEN NEEDLE UF) 31 gauge x 5/16" Ndle 04-05 00:00: 00 Yes QID, DX:E11.9 [facility] Insulin Levering, Disposable, (BD INSULIN PEN NEEDLE UF) 31 gauge x 5/16" Ndle 04-05 00:00: 00 Yes QID, DX:E11.9 [facility] atorvastati n (LIPITOR) 40 mg tablet 04-05 00:00: 00 02-08 00:00 :00 No [id number] 40mg Take 1 tablet by mouth at bedtime. [facility] LOVAZA, omega-3-aci d ethyl esters, (LOVAZA) 1 gram capsule 04-05 00:00: 02-08 00:00 :00 No [id number] 2g Take 2 capsules by mouth 2 (two) times daily before breakfast and dinner. [facility] insulin aspart (NOVOLOG FLEXPEN) 100 unit/mL injection 12-29 00:00: 00 Yes [id number] Inject as instructed TID AC up to 80 units daily [facility] Insulin Glargine (LANTUS SOLOSTAR) 100 unit/mL (3 mL) injection 12-29 00:00: 00 Yes [id number] 35U inject 35 Units under the skin every morning. [facility] glucagon 1 mg/mL SolR injection 12-29 00:00: 00 02-08 00:00 :00 No [id number] Use as instructed in case of severe hypoglycem ia. [facility] zolpidem (AMBIEN) 10 mg tablet 2014-07 00:00: 00 06-26 00:00 :00 No TAKE ONE TABLET BY MOUTH ONCE DAILY AT BEDTIME [facility] traMADOL (ULTRAM) 50 mg tablet 2014-07 00:00: 00 06-26 00:00 :00 No 50mg Take 1 Tab by mouth every 6 (six) hours as needed for Pain (scale 7-10). [facility] aspirin 81 mg chewable tablet 2014-07 0 00:00: 00 02-08 00:00 :00 No 81mg Take 1 Tab by mouth daily. [facility] enalapril (VASOTEC) 5 mg tablet 2014-07 0 00:00: 00 02-08 00:00 :00 No 5mg Take 1 Tab by mouth daily. [facility] fenofibrate micronized (LOFIBRA) 134 mg capsule 2014-07 00:00: 00 02-08 00:00 :00 No 134mg Take 1 Cap by mouth daily. [facility] blood sugar diagnostic (FREESTYLE INSULINX) strip 2011-07 0 00:00: 00 02-08 00:00 :00 No [id number] before meals and at bedtime. [facility] Lancets (LANCETS,UL TRA THIN) [facility] 04-04 00:00: 00 Yes [id number] [facility] Lancets (LANCETS,UL TRA THIN) [facility] 04-04 00:00: 00 Yes [id number] [facility] Vital Signs Vital Name Observation Time Observation Value Comments S kat Systolic blood pressure 2023-12-14 02:00:00 116 mm[Hg] [facility] Diastolic blood pressure 2023-12-14 02:00:00 79 mm[Hg] [facility] Heart rate 2023-12-14 02:00:00 71 /min [facility] Respiratory rate 2023-12-14 02:00:00 16 /min [facility] Oxygen saturation in Arterial blood by Pulse oximetry 2023-12-14 02:00:00 100 /min [facility] Body temperature 2023-12-14 00:00:00 36.44 Dejah [facility] Body height 2023-12-13 22:27:00 177.8 cm [facility] Body weight 2023-12-13 22:27:00 83.915 kg [facility] BMI 2023-12-13 22:27:00 26.54 kg/m2 [facility] Systolic blood pressure 2020-11-16 21:02:00 150 mm[Hg] [facility] Diastolic blood pressure 2020-11-16 21:02:00 93 mm[Hg] [facility] Heart rate 2020-11-16 21:02:00 93 /min [facility] Respiratory rate 2020-11-16 21:02:00 20 /min [facility] Oxygen saturation in Arterial blood by Pulse oximetry 2020-11-16 21:02:00 100 /min [facility] Body temperature 2020-11-16 18:21:00 36.61 Dejah [facility] Body weight 2020-11-16 18:21:00 89.359 kg [facility] BMI 2020-11-16 18:21:00 28.27 kg/m2 [facility] Systolic blood pressure 2020-07-28 21:58:00 147 mm[Hg] [facility] Diastolic blood pressure 2020-07-28 21:58:00 100 mm[Hg] [facility] Heart rate 2020-07-28 21:58:00 103 /min [facility] Body temperature 2020-07-28 21:58:00 36.28 Dejah [facility] Respiratory rate 2020-07-28 21:58:00 20 /min [facility] Body weight 2020-07-28 21:58:00 86.183 kg [facility] BMI 2020-07-28 21:58:00 27.26 kg/m2 [facility] Oxygen saturation in Arterial blood by Pulse oximetry 2020-07-28 21:58:00 100 /min [facility] Systolic blood pressure 2020-06-29 22:21:00 133 mm[Hg] [facility] Diastolic blood pressure 2020-06-29 22:21:00 81 mm[Hg] [facility] Heart rate 2020-06-29 22:21:00 89 /min [facility] Body temperature 2020-06-29 22:21:00 36.83 Dejah [facility] Respiratory rate 2020-06-29 22:21:00 18 /min [facility] Oxygen saturation in Arterial blood by Pulse oximetry 2020-06-29 22:21:00 99 /min [facility] Body weight 2020-06-27 10:03:00 87.998 kg [facility] BMI 2020-06-27 10:03:00 27.84 kg/m2 [facility] Body height 2020-06-26 07:45:00 177.8 cm [facility] Systolic blood pressure 2020-06-29 22:21:00 133 mm[Hg] [facility] Diastolic blood pressure 2020-06-29 22:21:00 81 mm[Hg] [facility] Heart rate 2020-06-29 22:21:00 89 /min [facility] Body temperature 2020-06-29 22:21:00 36.83 Dejah [facility] Respiratory rate 2020-06-29 22:21:00 18 /min [facility] Oxygen saturation in Arterial blood by Pulse oximetry 2020-06-29 22:21:00 99 /min [facility] Body weight 2020-06-27 10:03:00 87.998 kg [facility] BMI 2020-06-27 10:03:00 27.84 kg/m2 [facility] Body height 2020-06-26 07:45:00 177.8 cm [facility] Procedures Procedure Date / Time Performed Performing Clinician Source POCT GLUCOSE (AUTOMATED) 2023-12-14 02:25:00 Isaiah [facility] POCT GLUCOSE (AUTOMATED) 2023-12-14 02:04:00 Isaiah [facility] POCT GLUCOSE (AUTOMATED) 2023-12-14 01:35:00 Isaiah [facility] POCT GLUCOSE (AUTOMATED) 2023-12-14 01:18:[address] [facility] [address] ABDOMEN PELVIS W CONTRAST 2023-12-14 01:09:58 Fortino [facility]arris [facility] LIPASE 2023-12-14 00:08:00 [facility] TROPONIN I 2023-12-14 00:08:00 Fortino F[facility] COMP. METABOLIC PANEL (43738) 2023-12-14 00:08:00 Fortino [facility] ETHANOL 2023-12-14 00:08:00 [facility] CBC WITH DIFF 2023-12-14 00:08:00 Fortino Farris [facility] URINALYSIS 2023-12-14 00:08:00 [facility] N-TERMINAL PRO-BNP 2023-12-14 00:08:00 Fortino Farris [facility] URINE DRUG (IMMUNOASSAY) - COMPREHENSIVE DRUG SCREEN W/O REFLEX 2023-12-14 00:08:00 Fortino Farris [facility] XR CHEST 1 VW 2023-12-13 23:22:21 Fortino Farris [facility] CT ABDOMEN PELVIS W CONTRAST 2020-11-16 19:40:14 Nader Mendoza [facility] LIPASE 2020-11-16 18:28:00 [facility] MAGNESIUM 2020-11-16 18:28:00 Nader Mendoza [facility] COMP. METABOLIC PANEL (88068) 2020-11-16 18:28:00 Nader Mendoza [facility] CBC WITH DIFF 2020-11-16 18:28:00 Nader Mendoza [facility] URINALYSIS 2020-11-16 18:28:00 [facility] POCT GLUCOSE (AUTOMATED) 2020-11-16 18:25:00 Nader Mendoza [facility] CONSENT/REFUSAL FOR DIAGNOSIS AND TREATMENT 2020-11-16 18:14:39 Doctor Unassigned, Kief [facility] CT CERVICAL SPINE WO CONTRAST 2020-07-28 22:41:[address] [facility] [address] HEAD WO CONTRAST 2020-07-28 22:41:56 Lillian Barr [facility] NOTICE OF PRIVACY PRACTICES 2020-07-28 21:50:31 Doctor Unassigned, Kief [facility] CONSENT/REFUSAL FOR DIAGNOSIS AND TREATMENT 2020-07-28 21:50:20 Doctor Unassigned, Kief [facility] POCT GLUCOSE (AUTOMATED) 2020-06-29 23:35:00 Rebeca [facility] POCT GLUCOSE (AUTOMATED) 2020-06-29 18:04:00 Rebeca [facility] POCT GLUCOSE (AUTOMATED) 2020-06-29 13:54:00 Rebeca [facility] TRIGLYCERIDES 2020-06-29 11:20:00 Ellis Almeida [facility] BASIC METABOLIC PANEL (NA, K, CL, CO2, GLUCOSE, BUN, CREATININE, CA) 2020-06-29 11:20:00 Rebeca [facility] CBC WITH DIFF 2020-06-29 11:20:00 Rebeca [facility] ADC / LCC - DRUG SCREEN TRIAGE 2020-06-29 03:10:00 Favio Moscoso [facility] POCT GLUCOSE (AUTOMATED) 2020-06-28 22:46:00 Rebeca [facility] POCT GLUCOSE (AUTOMATED) 2020-06-28 18:53:00 Rebeca [facility] POCT GLUCOSE (AUTOMATED) 2020-06-28 18:01:00 Rebeca [facility] POCT GLUCOSE (AUTOMATED) 2020-06-28 13:27:00 Rebeca [facility] POCT GLUCOSE (AUTOMATED) 2020-06-28 11:48:00 Rebeca [facility] TRIGLYCERIDES 2020-06-28 10:27:00 Ellis Almeida [facility] LIPASE 2020-06-28 10:27:00 Rebeca [facility] MAGNESIUM 2020-06-28 10:27:00 Favio Moscoso [facility] BASIC METABOLIC PANEL (NA, K, CL, CO2, GLUCOSE, BUN, CREATININE, CA) 2020-06-28 10:27:00 Rebeca [facility] ETHANOL 2020-06-28 10:27:00 Favio Moscoso [facility] CBC WITH DIFF 2020-06-28 10:27:00 Rebeca [facility] POCT GLUCOSE (AUTOMATED) 2020-06-28 10:10:00 Rebeca [facility] POCT GLUCOSE (AUTOMATED) 2020-06-28 07:00:00 Rebeca [facility] POCT GLUCOSE (AUTOMATED) 2020-06-28 05:48:00 Edtere [facility] POCT GLUCOSE (AUTOMATED) 2020-06-28 04:45:00 Edioncal [facility] POCT GLUCOSE (AUTOMATED) 2020-06-28 03:40:00 Edtere [facility] POCT GLUCOSE (AUTOMATED) 2020-06-28 02:43:00 Rebeca [facility] POCT GLUCOSE (AUTOMATED) 2020-06-28 01:39:00 Rebeca [facility] POCT GLUCOSE (AUTOMATED) 2020-06-27 23:10:00 [facility] TRIGLYCERIDES 2020-06-27 23:08:00 Ellis Almeida [facility] POCT GLUCOSE (AUTOMATED) 2020-06-27 21:29:00 Rebeca [facility] POCT GLUCOSE (AUTOMATED) 2020-06-27 19:54:00 [facility] ([facility]ATED) 2020-06-27 18:59:00 [facility] PO[facility] GLUCOSE (AUTOMATED) 2020-06-27 17:42:00 [facility] PO[facility] GLUCOSE (AUTOMATED) 2020-06-27 16:50:00 [facility] PO[facility] GLUCOSE (AUTOMATED) 2020-06-27 14:43:00 [facility] PO[facility] GLUCOSE (AUTOMATED) 2020-06-27 13:19:00 [facility] PO[facility] GLUCOSE (AUTOMATED) 2020-06-27 12:18:00 [facility] TRIGLYCERIDES 2020-06-27 10:20:00 Ellis Almeida [facility] LIPASE 2020-06-27 10:20:[facility] (NA, K, CL, CO2, GLUCOSE, BUN, CREATININE, CA) 2020-06-27 10:20:00 Momo [facility] CBC WITH DIFF 2020-06-27 10:20:00 [facility] 2020-06-27 10:06[facility]00 [facility] 2020-06-27 09:06:00 [facility]ATED) 2020-06-27 08:07:00 [facility] ([facility]OMATED) 2020-06-27 07:09:00 [facility] ([facility]OMATED) 2020-06-27 06:02:00 [facility]ATED) 2020-06-27 04:52:00 [facility]ATED) 2020-06-27 04:02:00 [facility] ([facility]OMATED) 2020-06-27 03:28:00 [facility]OMATED) 2020-06-27 03:02:00 [facility] ([facility]OMATED) 2020-06-27 02:01:00 [facility]OMATED) 2020-06-27 01:15:00 [facility]OMATED) 2020-06-27 00:07:00 [facility] ([facility]OMATED) 2020-06-26 22:46:00 [facility]IGLY[facility]ER[facility]ES 2020-06-26 22:07:00 Ellis Almeida [facility] POCT GLUCOSE (AUTOMATED) 2020-06-26 21:45:00 [facility]OMATED) 2020-06-26 20:38:00 Rebeca [facility] POCT GLUCOSE (AUTOMATED) 2020-06-26 18:13:00 Rebeca [facility] POCT GLUCOSE (AUTOMATED) 2020-06-26 17:03:00 Rebeca [facility] LIPASE 2020-06-26 11:15:00 Rebeca [facility] LIPID PANEL (71393)(TOTAL CHOLESTEROL, TRIGLYCERIDES, HDL) 2020-06-26 11:15:00 Rebeca [facility] GLYCOSYLATED HEMOGLOBIN (A1C) 2020-06-26 11:15:00 Rebeca [facility] LOW-DENSITY LIPOPROTEIN, DIRECT 2020-06-26 11:15:00 Rebeca [facility] POCT GLUCOSE (AUTOMATED) 2020-06-26 11:12:[address] [facility] CT ABDOMEN PELVIS W CONTRAST 2020-06-26 04:40:39 Kofi Beebe [facility] ASSIGNMENT OF BENEFITS 2020-06-26 03:16:02 Docto r Unassigned, Kief [facility] COVID-19 (ID NOW RAPID TESTING) 2020-06-26 03:12:00 Kofi Beebe [facility] LAB ONLY COVID INTERPRETATION 2020-06-26 03:12:00 Kofi Beebe [facility] LIPASE 2020-06-26 02:54:00 Kofi Beebe [facility] COMP. METABOLIC PANEL (04694) 2020-06-26 02:54:00 Kofi Beebe [facility] CBC WITH DIFF 2020-06-26 02:54:00 Kofi Beebe [facility] POCT GLUCOSE (AUTOMATED) 2020-06-26 02:44:00 Aysha [facility]be [facility] CONSENT/REFUSAL FOR DIAGNOSIS AND TREATMENT 2020-06-26 02:29:58 Doctor Unassigned, Kief [facility] EXTERNAL PROVIDER RECORDS 2020-02-09 05:01:00 Do ctor Unassigned, Kief [facility] Encounters Start Date/Time End Date/Time Encounter Type Admission Type Attending Clinicians Care Facility Care Department Encounter ID Source 2021-10-03 16:00:00 Inpatient Chetan Coleman [facility] [id number] [facility] 2021-09-29 17:00:00 Inpatient Chetan Coleman [facility] [id number] [facility] 2021-05-11 17:56:10 Emergency [facility] [id number] [facility] 2021-05-10 17:48:01 Emergency [facility] [id number] [facility] 2021-05-10 11:31:12 Emergency [facility] [id number] [facility] 2024-02-25 00:00:00 2024-04-01 18:24:23 Patient Secure Msg Doctor Unassigned, Kief Doctor Unassigned, Kief [facility] 1.840.114 350.1.13.10 4.2.7.2.686 [id number] [facility] 2024-02-05 00:00:00 2024-03-11 18:23:54 Patient Secure Msg Doctor Unassigned, Kief Doctor Unassigned, Kief [facility] 1.840.114 350.1.13.10 4.2.7.2.686 [id number] [facility] 2024-02-10 00:00:00 2024-02-10 14:49:57 Letter (Out) Briana Hughes [facility] 1.840.114 350.1.13.10 4.2.7.2.686 [id number] [facility] 2024-02-01 00:00:00 2024-02-08 09:28:22 Telephone Cole Guan COUNT INCLUDES THE [facility] 1.840.114 350.1.13.10 4.2.7.2.686 [id number] [facility] 2023-12-13 17:36:00 2023-12-13 21:40:00 Emergency X FORTINO FARRIS [facility] ERT [id number] [facility] 2023-12-13 17:36:00 2023-12-13 21:40:00 Emergency Fortino Farris [facility] 1.114 350.1.13.10 4.2.7.2.686 [id number] [facility] 2021-10-03 16:42:00 2021-10-03 16:42:[address] [facility] [id number] [facility] 2021-09-29 14:17:00 2021-09-29 14:17:[address] [facility] [id number] [facility] 2021-09-25 13:47:00 2021-09-25 13:47:00 Outpatient Elective Chetan Coleman [facility] [id number] [facility] 2021-09-25 13:47:00 2021-09-25 13:47:[address] [facility] [id number] [facility] 2020-11-16 13:16:00 2020-11-16 16:24:00 Emergency Nader Mendoza [facility] 1.114 350.1.13.10 4.2.7.2.686 [id number] [facility] 2020-11-16 00:00:00 2020-11-16 00:00:00 Orders Only Doctor Unassigned, Kief [facility] 1.114 350.1.13.10 4.2.7.2.686 [id number] [facility] 2020-07-28 16:00:00 2020-07-28 17:40:00 Emergency Lillian Barr [facility] 1..114 350.1.13.10 4.2.7.2.686 [id number] [facility] 2020-07-28 00:00:00 2020-07-28 00:00:00 Orders Only Doctor Unassigned, Kief [facility] 1.2.840.114 350.1.13.10 4.2.7.2.686 [id number] [facility] 2020-07-01 00:00:00 2020-07-01 00:00:00 Transition of Care Annita Correa 1.2.840.114 350.1.13.10 4.2.7.2.686 [id number] [facility] 2020-07-01 00:00:00 2020-07-01 00:00:00 Transition of Care Annita Correa 1.2.840.114 350.1.13.10 4.2.7.2.686 [id number] 2020-06-25 20:44:00 2020-06-29 19:29:00 Hospital Encounter Kofi Beebe [facility] 1.2.840.114 350.1.13.10 4.2.7.2.686 [id number] [facility] 2020-06-25 20:44:00 2020-06-29 19:29:00 [facility] 1.2.840.114 350.1.13.10 4.2.7.2.686 [id number] 2020-06-25 00:00:00 2020-06-25 00:00:00 Orders Only Doctor Unassigned, Kief [facility] 1.2.840.114 350.1.13.10 4.2.7.2.686 [id number] [facility] 2020-06-25 00:00:00 2020-06-25 00:00:00 Orders Only Doctor Unassigned, Kief [facility] 1.2840.114 350.1.13.10 4.2.7.2.686 [id number] 2020-02-09 15:04:39 2020-02-09 15:53:06 Telemedici ne Visit Cole Guan [facility] 1.2840.114 350.1.13.10 4.2.7.2.686 [id number] [facility] 2020-02-09 15:04:39 2020-02-09 15:53:06 Telemedici ne Visit Cole Guan [facility] 1.284.114 350.1.13.10 4.2.7.2.686 [id number] 2020-02-09 15:00:00 2020-02-09 15:00:00 Outpatient R GUANTRUMAN GREENIN [facility] [id number] [facility] 2020-02-09 00:00:00 2020-02-09 00:00:00 Orders Only Doctor Unassigned, Kief [facility] 1.2840.114 350.1.13.10 4.2.7.2.686 [id number] [facility] 2020-02-09 00:00:00 2020-02-09 00:00:00 Orders Only Doctor Unassigned, Kief [facility] 1.2840.114 350.1.13.10 4.2.7.2.686 [id number] 2020-02-07 00:00:00 2020-02-07 00:00:00 Telephone GuanTrumanin [facility] 1.2.840.114 350.1.13.10 4.2.7.2.686 [id number] [facility] 2020-02-07 00:00:00 2020-02-07 00:00:00 Telephone Cole Guan [facility] 1.2.840.114 350.1.13.10 4.2.7.2.686 [id number] Results Test Description Test Time Test Comments Results Result Co mments Source [facility] ABDOMEN PELVIS W [id number] 02:18:58HS:Y Indication: Pancreatitis, acute, severe ? Comparison: [...] soft tissue: No acute osseous abnormality is noted.[facility] GLUCOSE (AUTOMATED)2023-12-14 02:09:43* Test Item Value Reference Range Interpretation Comme nts POCT GLU (test code = 5119816137) 406 mg/dL 70-110 H Lab Interpretation (test cod e = 60246-8) Abnormal [facility] GLUCOSE (AUTOMATED)2023-12-14 01:36:46* Test Item Value Reference Range Interpretation Comme nts POCT GLU (test code = 7380985233) 453 mg/dL 70-110 HH Lab Interpretation (test cod e = 21920-4) Abnormal [facility] GLUCOSE (AUTOMATED)2023-12-14 01:21:40* Test Item Value Reference Range Interpretation Comme [facility] POCT GLU (test code = 2815588344) 504 mg/dL 70-110 HH Lab Interpretation (test cod e = 27595-7) [id number] 01:02:25* Test Item Value Reference Range Interpretation Comme nts TROPONIN I (test code = 7066530084) 0.005 ng/mL <=0.034 OSKAR (test code = [...] of biotin. Lab Interpretation (test code = 07591-5) Normal [facility] AMI-[id number] 00:59:47* Test Item Value Reference Range Interpretation Comme [facility] NT-proBNP (test code = 35416-9) 20 pg/mL <=125 Lab Interpretation (test cod e = 22240-4) Normal [facility] CHEST 1 [id number] 00:54:09Ordering physician: FORTINO FARRIS Clinical indication: Dyspnea. Comparison: None Technique: Chest,single view Technical quality: Adequate Findings: The lungs are clear. No pleural effusions are evident. Heart size isnormal. The superior mediastinal silhouette is unremarkable for age andprojection. No acute bony abnormalities are evident.[facility] 00:53:41ALCOHOL<10mg/dL12/13/2023 7:53 PM [facility]<10 Rwysymca67-728 Toxic>100 Depression of NARROW FABR[employer] WEAVER>400 Fatalities Reported [facility]. [facility]ABOLIC PANEL (78107)2023-12-14 00:53:36* Test Item Value Reference Range Interpretation Comme nts NA (test code = 9402200690) 129 mmol/L 135-145 L K (test code = 3698979731) 4.3 mmol/L 3.5-5.0 CL (test code = 6320452017) 93 mmol/L 98-108 L CO2 TOTAL (test code = 9973166734) 26 mmol/L 23-31 AGAP (test code = 8071402171) 10 2-16 BUN (test code = 9698700111) 25 mg/dL 7-23 H GLUCOSE (test code = 5966221999) 486 mg/dL 70-110 HH CREATININE (test code = 2160-0) 1.22 mg/dL 0.60-1.25 TOTAL BILI (test code = 1173732158) 1.6 mg/dL 0.1-1.1 H CALCIUM (test code = 9944736825) 8.8 mg/dL 8.6-10.6 T PROTEIN (test code = 4922698667) 7.9 g/dL 6.3-8.2 ALBUMIN (test code = 4228369188) 4.4 g/dL 3.5-5.0 ALK PHOS (test code = 6407303275) 78 U/L 34-122 ALTv (test code = 1742-6) 145 U/L 5-50 H AST(SGOT) (test code = 3580799387) 52 U/L 13-40 H eGFR (test code = 32284-4) 75.0 mL/min/1.73m2 CKD-EPI eGFR (2020). Assuming creatinine has been stable day-to-day for at least three months, the eGFR indicates Category G2 (60 - 89 mL/min/1.73 m2) Lab Interpretation (test code = 84394-7) Abnormal [facility] 00:49:27* Test Item Value Reference Range Interpretation Comme nts LIPASE (test code = 3763188969) 1623 U/L 0-220 H Lab Interpretation (test cod e = 27048-4) Abnormal [facility] [id number] 00:31:25* Test Item Value Reference Range Interpretation [...] g/dL 31.2-35.0 H RDW-SD (test code = 72241-7) 33.1 fL 38.5-51.6 L RDW-CV (test code = 788-0) 11.4 % 12.1-15.4 L PLT (test code = 777-3) 167 150-328 MPV (test code = 73915-0) 10.0 fL 9.8-13.0 NRBC/100 WBC (test code = 8950177731) 0.0 0.0-10.0 NRBC x10^3 (test code = 0432917180) See_Comment [Automated messa ge] The system which generated this result transmitted reference range: 10*3/?L. The reference range was not used to interpret this result as normal/abnormal. GRAN MAT (NEUT) % (test code = 770-8) 63.5 % IMM GRAN % (test code = 7179351625) 0.80 % LYMPH % (test code = 736-9) 27.2 % MONO % (test code = 5905-5) 6.1 % EOS % (test code = 713-8) 1.4 % BASO % (test code = 706-2) 1.0 % GRAN MAT x10^3(ANC) (test code = 4143771871) 3.13 10*3/uL 1.99-6.95 IMM GRAN x10^3 (test code = 6299180736) 0.04 10*3/uL 0.00-0.06 LYMPH x10^3 (test code = 731-0) 1.34 10*3/uL 1.09-3.23 MONO x10^3 (test code = 742-7) 0.30 10*3/uL 0.36-1.02 L EOS x10^3 (test code = 711-2) 0.07 10*3/uL 0.06-0.53 BASO x10^3 (test code = 704-7) 0.05 10*3/uL 0.01-0.09 Lab Interpretation (test code = 04858-7) Abnormal [facility] Dpvuczqnaom7740-54-63 20:01:00* Test Item Value Reference Range Interpretation Comme nts Glucose Fingerstick (test code = WGLUC) 247 mg/dL 70-115 CASE WORKER Eug giacomo Lum Glucose Rcsqtemnpjd6284-07-63 17:29:00* Test Item Value Reference Range Interpretation Comme nts Glucose Fingerstick (test code = WGLUC) 296 mg/dL 70-115 CASE WORKER MADELINE NUNES T Glucose Dptktcibhrz9301-79-54 14:49:00* Test Item Value Reference Range Interpretation Comme nts Glucose Fingerstick (test code = WGLUC) 334 mg/dL 70-115 CASE WORKER And rew Samuel RN or OR MICRO Gxqaqdoy1895-40-52 16:15:00* Test Item Value Reference Range Interpretation [...] the possible exception of Ceftaroline. LEFT HANDGlucose Tibmgzojadc1175-54-56 15:52:00* Test Item Value Reference Range Interpretation Comme nts Glucose Fingerstick (test code = WGLUC) 199 mg/dL 70-115 CASE WORKER And rew Svetlik [id number] 19:20:17* Test Item Value Reference Range Interpretation Comme nts APPEARANCE (test code = 7501811099) Clear Clear COLOR (test code = 7148572684) Mindy Yellow A PH (test code = 1216510394) 4.8-8.0 SP GRAVITY (test code = 5561196057) 1.003-1.030 GLU U QUAL (test code = 6954978304) 150 mg/dL Normal A BLOOD (test code = 6574570559) Negative Negative KETONES (test code = 9837386371) Negative Negative PROTEIN (test code = 2887-8) Negative Negative UROBILIN (test code = 2223099419) Normal Normal BILIRUBIN (test code = 8401843836) Negative Negative NITRITE (test code = 6205551562) Negative Negative LEUK BURTON (test code = 4975579110) Negative Negative RBC/HPF (test code = 1627958445) See_Comment [Automated DutyCalculatora ge] The system which generated this result transmitted reference range: 0 - 3 HPF. The reference range was not used to interpret this result as normal/abnormal. WBC/HPF (test code = 8644925258) See_Comment [Automated DutyCalculatora ge] The system which generated this result transmitted reference range: 0 - 5 HPF. The reference range was not used to interpret this result as normal/abnormal. BACTERIA (test code = 1037753611) Negative Negative MUCOUS (test code = 5415282964) Moderate Negative LPF A Lab Interpretation (test code = 96793-6) Abnormal [facility] 19:18:04* Test Item Value Reference Range Interpretation Comme nts MAGNESIUM (test code = 0789937354) 1.9 mg/dL 1.7-2.4 Lab Interpretation (test cod e = 71572-5) Normal [facility]COMP. METABOLIC PANEL (47307)2020-11-16 19:17:44* Test Item Value Reference Range Interpretation Comme nts NA (test code = 6968646690) 138 mmol/L 135-145 K (test code = 9417569209) 3.9 mmol/L 3.5-5.0 CL (test code = 8378443672) 100 mmol/L 98-108 CO2 TOTAL (test code = 9266246111) 28 mmol/L 23-31 AGAP (test code = 7071147802) 2-16 BUN (test code = 3246410541) 15 mg/dL 7-23 GLUCOSE (test code = 6473817502) 215 mg/dL 70-110 H CREATININE (test code = 6574367630) 0.88 mg/dL 0.60-1.25 TOTAL BILI (test code = 1056002874) 1.6 mg/dL 0.1-1.1 H CALCIUM (test code = 2742385397) 9.6 mg/dL 8.6-10.6 T PROTEIN (test code = 4264142181) 7.4 g/dL 6.3-8.2 ALBUMIN (test code = 2837407976) 4.6 g/dL 3.5-5.0 ALK PHOS (test code = 4460494132) 90 U/L 34-122 ALTv (test code = 1742-6) 15 U/L 5-50 AST(SGOT) (test code = 2755659640) 17 U/L 13-40 eGFR (test code = 7212247558) mL/min/1.73m2 OSKAR (test code = OSKAR) Association [...] imaging tests). Lab Interpretation (test code = 79690-4) Abnormal [facility] 19:17:23* Test Item Value Reference Range Interpretation Comme nts LIPASE (test code = 4076010424) 87 U/L 0-220 Lab Interpretation (test cod e = 28064-7) Normal [facility]CB WITH [id number] 19:06:43* Test Item Value Reference Range Interpretation [...] 33.6 g/dL 31.2-35.0 RDW-SD (test code = 17490-6) 39.0 fL 38.5-51.6 RDW-CV (test code = 788-0) 13.9 % 12.1-15.4 PLT (test code = 777-3) See_Comment [Automated messa ge] The system which generated this result transmitted reference range: 150 - 328 10*3/?L. The reference range was not used to interpret this result as normal/abnormal. MPV (test code = 06971-3) 9.4 fL 9.8-13.0 L NRBC/100 WBC (test code = [id number]) See_Comment [Automated [employer] ssage] The system which generated this result transmitted reference range: 0.0 - 10.0 /100 WBCs. The reference range was not used to interpret this result as normal/abnormal. NRBC x10^3 (test code = [id number]) <0.01 See_Comment [Automated messa ge] The system which generated this result transmitted reference range: 10*3/?L. The reference range was not used to interpret this result as normal/abnormal. GRAN MAT (NEUT) % (test code = 770-8) 79.9 % IMM GRAN % (test code = [id number]) 0.60 % LYMPH % (test code = 736-9) 14.4 % MONO % (test code = 5905-5) 3.9 % EOS % (test code = 713-8) 0.6 % BASO % (test code = 706-2) 0.6 % GRAN MAT x10^3(ANC) (test code = [id number]) 7.25 10*3/uL 1.99-6.95 H IMM GRAN x10^3 (test code = [id number]) 0.05 10*3/uL 0.00-0.06 LYMPH x10^3 (test code = 731-0) 1.30 10*3/uL 1.09-3.23 MONO x10^3 (test code = 742-7) 0.35 10*3/uL 0.36-1.02 L EOS x10^3 (test code = 711-2) 0.05 10*3/uL 0.06-0.53 L BASO x10^3 (test code = 704-7) 0.05 10*3/uL 0.01-0.09 Lab Interpretation (test code = 58514-8) Abnormal [facility] GLUCOSE (AUTOMATED)2020-11-16 18:27:21* Test Item Value Reference Range Interpretation Comme nts POCT GLU (test code = 7724870782) 218 mg/dL 70-110 H Lab Interpretation (test cod e = 86259-1) Abnormal [facility] GLUCOSE (AUTOMATED)2020-06-29 23:37:00* Test Item Value Reference Range Interpretation Comme nts POCT GLU (test code = 4939205977) 217 mg/dL 70-110 H Lab Interpretation (test cod e = 27187-5) Abnormal [facility] GLUCOSE (AUTOMATED)2020-06-29 18:58:00* Test Item Value Reference Range Interpretation Comme nts POCT GLU (test code = 1329060114) 214 mg/dL 70-110 H Lab Interpretation (test cod e = 86237-5) Abnormal [facility] GLUCOSE (AUTOMATED)2020-06-29 14:15:00* Test Item Value Reference Range Interpretation Comme nts POCT GLU (test code = 7488789836) 182 mg/dL 70-110 H Lab Interpretation (test cod e = 22071-4) Abnormal [facility] with Ubyqzzdghqlr4969-12-05 13:44:00* Test Item Value Reference Range Interpretation Comme john WBC (test code = 6690-2) See_Comment L [...] 34.7 g/dL 31.2-35 RDW-SD (test code = 41809-1) 37.0 fL 38.5-51.6 L RDW-CV (test code = 788-0) 12.2 % 12.1-15.4 PLT (test code = 777-3) See_Comment L [Automated messa ge] The system which generated this result transmitted reference range: 150 - 328 10*3/?L. The reference range was not used to interpret this result as normal/abnormal. MPV (test code = 20764-0) 9.9 fL 9.8-13 NRBC/100 WBC (test code = 8172702381) See_Comment [Automated me ssage] The system which generated this result transmitted reference range: 0.0 - 10.0 /100 WBCs. The reference range was not used to interpret this result as normal/abnormal. NRBC x10^3 (test code = 0561925539) <0.01 See_Comment [Automated messa ge] The system which generated this result transmitted reference range: 10*3/?L. The reference range was not used to interpret this result as normal/abnormal. GRAN MAT (NEUT) % (test code = 770-8) 61.0 % IMM GRAN % (test code = 9131414225) 0.30 % LYMPH % (test code = 736-9) 29.5 % MONO % (test code = 5905-5) 5.9 % EOS % (test code = 713-8) 2.4 % BASO % (test code = 706-2) 0.9 % GRAN MAT x10^3(ANC) (test code = 2364885244) 2.07 10*3/uL 1.99-6.95 IMM GRAN x10^3 (test code = 7318564273) <0.03 0-0.06 LYMPH x10^3 (test code = 731-0) 1.00 10*3/uL 1.09-3.23 L MONO x10^3 (test code = 742-7) 0.20 10*3/uL 0.36-1.02 L EOS x10^3 (test code = 711-2) 0.08 10*3/uL 0.06-0.53 BASO x10^3 (test code = 704-7) 0.03 10*3/uL 0.01-0.09 Lab Interpretation (test code = 09769-1) [facility] 13:22:[facility]* Test Item Value Reference Range Interpretation Comme nts TRIG (test code = 9423978552) 468 mg/dL 30-170 H Lab Interpretation (test cod e = 33947-4) [facility] (NA, K, CL, CO2, GLUCOSE, BUN, CREATININE, CA)2020-06-29 13:12:00* Test Item Value Reference Range Interpretation Comme nts NA (test code = 9690202783) 139 mmol/L 135-145 K (test code = 6901690390) 3.6 mmol/L 3.5-5 CL (test code = 9668504379) 104 mmol/L 98-108 CO2 TOTAL (test code = 2266925285) 25 mmol/L 23-31 AGAP (test code = 4190996135) 2-16 BUN (test code = 1243405788) 4 mg/dL 7-23 L GLUCOSE (test code = 8575907931) 163 mg/dL 70-110 H CREATININE (test code = 9586204257) 0.74 mg/dL 0.6-1.25 CALCIUM (test code = 8249290758) 9.4 mg/dL 8.6-10.6 eGFR Calculation (Non-) (test code = 4214284674) mL/min/1.73m2 eGFR Calculation () (test code = 3397065613) mL/min/1.73m2 OSKAR (test code = OSKAR) Association [...] imaging tests). Lab Interpretation (test code = 59778-5) Abnormal [facility] - DRUG SCREEN [id number] 03:44:00* Test Item Value Reference Range Interpretation Comme nts BENZO U (test code = 2135840851) Presumptive Positive Negative A AUDREY U (test code = 5612999162) Negative Negative AMPHET (test code = 9323912218) Negative Negative THC (test code = 9442319695) Presumptive Positive Negative A Confirmation of Presumptive Positive THC result requires physician order. METHADONE (test code = 8770260094) Negative Negative Meth U (test code = 7055972843) Negative Negative OPIATES (test code = 3092396714) Presumptive Positive Negative A Cocaine Metabolite (test code = 0483668698) Negative Negative PROPOXY (test code = 4553062170) Negative Negative Tric U (test code = 4644334517) Presumptive Positive Negative A Confirmation of Presumptive Positive TCA result requires physician order and this will be sent to reference lab. PCP (test code = 0399162332) Negative Negative OXYCOD (test code = 2968319149) Negative Negative OSKAR (test code = OSKAR) [...] legal testing). Lab Interpretation (test code = 29605-4) [facility]normal [facility] 01:23:00* Test Item Value Reference Range Interpretation Comme nts ALCOHOL (test code = 2977779319) <10 mg/dL OSKAR (test code = OSKAR) <10 Fynidbuu46-460 Toxic>100 Depression of NARROW [employer]AB[employer] WEAVER>400 Fatalities Reported [facility] 23:30:00* Test Item Value Reference Range Interpretation Comme nts POCT GLU (test code = 5602343701) 234 mg/dL 70-110 H Lab Interpretation (test cod e = 67537-3) Abnormal [facility] GLUCOSE (AUTOMATED)2020-06-28 19:09:00* Test Item Value Reference Range Interpretation Comme nts POCT GLU (test code = 3826313178) 195 mg/dL 70-110 H Lab Interpretation (test cod e = 29844-5) Abnormal [facility] GLUCOSE (AUTOMATED)2020-06-28 18:16:00* Test Item Value Reference Range Interpretation Comme nts POCT GLU (test code = 8213148594) 113 mg/dL 70-110 H Lab Interpretation (test cod e = 69963-8) [facility]normal [facility] 15:54:00* Test Item Value Reference Range Interpretation Comme nts MAGNESIUM (test code = 8778018140) 1.7 mg/dL 1.7-2.4 Lab Interpretation (test cod e = 92151-8) Normal [facility] GLUCOSE (AUTOMATED)2020-06-28 14:51:00* Test Item Value Reference Range Interpretation Comme nts POCT GLU (test code = 9592907901) 94 mg/dL 70-110 Lab Interpretation (test cod e = 50135-7) Normal [facility] with Eyqsihlfmpyu5545-17-17 14:08:00* Test Item Value Reference Range Interpretation [...] 34.7 g/dL 31.2-35 RDW-SD (test code = 56649-2) 36.2 fL 38.5-51.6 L RDW-CV (test code = 788-0) 11.9 % 12.1-15.4 L PLT (test code = 777-3) See_Comment L [Automated messa ge] The system which generated this result transmitted reference range: 150 - 328 10*3/?L. The reference range was not used to interpret this result as normal/abnormal. MPV (test code = 15036-6) 10.0 fL 9.8-13 NRBC/100 WBC (test code = 3890580772) See_Comment [Automated [employer] ssage] The system which generated this result transmitted reference range: 0.0 - 10.0 /100 WBCs. The reference range was not used to interpret this result as normal/abnormal. NRBC x10^3 (test code = 1622838241) <0.01 See_Comment [Automated messa ge] The system which generated this result transmitted reference range: 10*3/?L. The reference range was not used to interpret this result as normal/abnormal. GRAN MAT (NEUT) % (test code = 770-8) 59.7 % IMM GRAN % (test code = 6401805544) 0.30 % LYMPH % (test code = 736-9) 33.3 % MONO % (test code = 5905-5) 4.8 % EOS % (test code = 713-8) 1.3 % BASO % (test code = 706-2) 0.6 % GRAN MAT x10^3(ANC) (test code = 6752926754) 1.86 10*3/uL 1.99-6.95 L IMM GRAN x10^3 (test code = 6962666745) <0.03 0-0.06 LYMPH x10^3 (test code = 731-0) 1.04 10*3/uL 1.09-3.23 L MONO x10^3 (test code = 742-7) 0.15 10*3/uL 0.36-1.02 L EOS x10^3 (test code = 711-2) 0.04 10*3/uL 0.06-0.53 L BASO x10^3 (test code = 704-7) <0.03 0.01-0.09 Lab Interpretation (test code = 00498-3) Abnormal [facility] Metabolic Panel (NA, K, CL, CO2, GLUCOSE, BUN, CREATININE, CA)2020-06-28 13:02:00* Test Item Value Reference Range Interpretation Comme nts NA (test code = 1283611892) 140 mmol/L 135-145 K (test code = 9474753607) 3.0 mmol/L 3.5-5 L CL (test code = 8666879389) 106 mmol/L 98-108 CO2 TOTAL (test code = 4874003738) 25 mmol/L 23-31 AGAP (test code = 6549618074) 2-16 BUN (test code = 2128264415) <2 7-23 L GLUCOSE (test code = 1718003852) 107 mg/dL 70-110 CREATININE (test code = 2844465121) 0.59 mg/dL 0.6-1.25 L CALCIUM (test code = 4004257352) 8.9 mg/dL 8.6-10.6 eGFR Calculation (Non-) (test code = 6857353997) mL/min/1.73m2 eGFR Calculation () (test code = 1402329556) mL/min/1.73m2 OSKAR (test code = OSKAR) Association [...] imaging tests). Lab Interpretation (test code = 64468-5) [facility]normal [facility] 13:02:00* Test Item Value Reference Range Interpretation Comme nts TRIG (test code = 1012833469) 519 mg/dL 30-170 H Lab Interpretation (test cod e = 32929-9) Abnormal [facility] 12:45:00* Test Item Value Reference Range Interpretation Comme nts LIPASE (test code = 7579373502) 27 U/L 0-220 Lab Interpretation (test cod e = 43112-2) Normal [facility]2020-06[facility]28 11:51:00* Test Item Value Reference Range Interpretation Comme nts POCT GLU (test code = 5608177594) 111 mg/dL 70-110 H Lab Interpretation (test cod e = 30238-0) Abnormal [facility] COVID BNXIFOKQBCZHMP7193-63-96 11:31:00COVID DMT InterpretationInterpretation/Recommendations: Molecular NAAT Tests for [...] all COVID-19 testingthe patient has had at [facility], including molecular NAAT testing (more commonly known as PCR testing and Rapid ID Now testing) and antibody testing. It does not take into account any testing that a patient has had outside of the [facility] medical record. [facility] LABORATORY SERVICESCOVID VgicziqYBCJ-JeY-3 Rapid ID NOW (no units) ? ? Date ? Value ? 06/25/2020 ? Not Detected ? [facility]2020-06-28 10:16:00* Test Item Value Reference Range Interpretation Comme nts POCT GLU (test code = 2849590930) 109 mg/dL 70-110 Lab Interpretation (test cod e = 54330-7) Normal [facility] GLUCOSE (AUTOMATED)2020-06-28 09:08:00* Test Item Value Reference Range Interpretation Comme nts POCT GLU (test code = 9402343750) 152 mg/dL 70-110 H Lab Interpretation (test cod e = 32611-5) Abnormal [facility] GLUCOSE (AUTOMATED)2020-06-28 06:20:00* Test Item Value Reference Range Interpretation Comme nts POCT GLU (test code = 5608022867) 84 mg/dL 70-110 Lab Interpretation (test cod e = 93120-2) Normal [facility] GLUCOSE (AUTOMATED)2020-06-28 04:47:00* Test Item Value Reference Range Interpretation Comme nts POCT GLU (test code = 9514150775) 95 mg/dL 70-110 Lab Interpretation (test cod e = 89014-1) Normal [facility] GLUCOSE (AUTOMATED)2020-06-28 03:43:00* Test Item Value Reference Range Interpretation Comme nts POCT GLU (test code = 8644813551) 123 mg/dL 70-110 H Lab Interpretation (test cod e = 87773-1) Abnormal [facility] GLUCOSE (AUTOMATED)2020-06-28 02:47:00* Test Item Value Reference Range Interpretation Comme nts POCT GLU (test code = 4399011117) 121 mg/dL 70-110 H Lab Interpretation (test cod e = 34056-7) Abnormal [facility] GLUCOSE (AUTOMATED)2020-06-28 02:17:00* Test Item Value Reference Range Interpretation Comme nts POCT GLU (test code = 2148035235) 94 mg/dL 70-110 Lab Interpretation (test cod e = 88509-5) Normal [facility] 01:21:00* Test Item Value Reference Range Interpretation Comme nts TRIG (test code = 8917258322) 647 mg/dL 30-170 H Lab Interpretation (test cod e = 86092-5) Abnormal [facility] GLUCOSE (AUTOMATED)2020-06-27 23:29:00* Test Item Value Reference Range Interpretation Comme nts POCT GLU (test code = 1196663726) 87 mg/dL 70-110 Lab Interpretation (test cod e = 11467-5) Normal [facility] GLUCOSE (AUTOMATED)2020-06-27 21:36:00* Test Item Value Reference Range Interpretation Comme nts POCT GLU (test code = 9137438798) 85 mg/dL 70-110 Lab Interpretation (test cod e = 91189-3) Normal [facility] GLUCOSE (AUTOMATED)2020-06-27 19:55:00* Test Item Value Reference Range Interpretation Comme nts POCT GLU (test code = 4939929383) 91 mg/dL 70-110 Lab Interpretation (test cod e = 89625-2) Normal [facility] GLUCOSE (AUTOMATED)2020-06-27 19:01:00* Test Item Value Reference Range Interpretation Comme nts POCT GLU (test code = 0214696710) 125 mg/dL 70-110 H Lab Interpretation (test cod e = 66855-2) Abnormal [facility] GLUCOSE (AUTOMATED)2020-06-27 17:46:00* Test Item Value Reference Range Interpretation Comme nts POCT GLU (test code = 6861120182) 122 mg/dL 70-110 H Lab Interpretation (test cod e = 67027-2) Abnormal [facility] GLUCOSE (AUTOMATED)2020-06-27 16:56:00* Test Item Value Reference Range Interpretation Comme nts POCT GLU (test code = 4063520546) 98 mg/dL 70-110 Lab Interpretation (test cod e = 02924-5) Normal [facility] GLUCOSE (AUTOMATED)2020-06-27 14:47:00* Test Item Value Reference Range Interpretation Comme nts POCT GLU (test code = 4038752967) 209 mg/dL 70-110 H Lab Interpretation (test cod e = 25108-2) Abnormal [facility] GLUCOSE (AUTOMATED)2020-06-27 14:47:00* Test Item Value Reference Range Interpretation Comme nts POCT GLU (test code = 4641730461) 181 mg/dL 70-110 H Lab Interpretation (test cod e = 85954-0) Abnormal [facility] with Wbdfotcypmfe0622-17-93 12:55:00* Test Item Value Reference Range Interpretation [...] 35.0 g/dL 31.2-35 RDW-SD (test code = 65561-7) 35.6 fL 38.5-51.6 L RDW-CV (test code = 788-0) 11.8 % 12.1-15.4 L PLT (test code = 777-3) See_Comment L [Automated messa ge] The system which generated this result transmitted reference range: 150 - 328 10*3/?L. The reference range was not used to interpret this result as normal/abnormal. MPV (test code = 12820-7) 9.9 fL 9.8-13 NRBC/100 WBC (test code = 2526914550) See_Comment [Automated [employer] ssage] The system which generated this result transmitted reference range: 0.0 - 10.0 /100 WBCs. The reference range was not used to interpret this result as normal/abnormal. NRBC x10^3 (test code = 1696619528) <0.01 See_Comment [Automated messa ge] The system which generated this result transmitted reference range: 10*3/?L. The reference range was not used to interpret this result as normal/abnormal. GRAN MAT (NEUT) % (test code = 770-8) 59.3 % IMM GRAN % (test code = 0962639050) 0.30 % LYMPH % (test code = 736-9) 33.7 % MONO % (test code = 5905-5) 4.7 % EOS % (test code = 713-8) 1.3 % BASO % (test code = 706-2) 0.7 % GRAN MAT x10^3(ANC) (test code = 6973621268) 1.78 10*3/uL 1.99-6.95 L IMM GRAN x10^3 (test code = 5348061714) <0.03 0-0.06 LYMPH x10^3 (test code = 731-0) 1.01 10*3/uL 1.09-3.23 L MONO x10^3 (test code = 742-7) 0.14 10*3/uL 0.36-1.02 L EOS x10^3 (test code = 711-2) 0.04 10*3/uL 0.06-0.53 L BASO x10^3 (test code = 704-7) <0.03 0.01-0.09 Lab Interpretation (test code = 19102-3) Abnormal [facility] GLUCOSE (AUTOMATED)2020-06-27 12:26:00* Test Item Value Reference Range Interpretation Comme nts POCT GLU (test code = 4587333162) 238 mg/dL 70-110 H Lab Interpretation (test cod e = 07102-4) Abnormal [facility] GLUCOSE (AUTOMATED)2020-06-27 12:20:00* Test Item Value Reference Range Interpretation Comme nts POCT GLU (test code = 0499171265) 216 mg/dL 70-110 H Lab Interpretation (test cod e = 22254-2) [facility]normal [facility] 12:03:00* Test Item Value Reference Range Interpretation Comme nts TRIG (test code = 1592872166) 810 mg/dL 30-170 H Lab Interpretation (test cod e = 45813-7) Abnormal [facility] Metabolic Panel (NA, K, CL, CO2, GLUCOSE, BUN, CREATININE, CA)2020-06-27 11:56:00* Test Item Value Reference Range Interpretation Comme nts NA (test code = 0575179267) 135 mmol/L 135-145 K (test code = 8831059516) 3.6 mmol/L 3.5-5 CL (test code = 1070106447) 104 mmol/L 98-108 CO2 TOTAL (test code = 4206653256) 23 mmol/L 23-31 AGAP (test code = 1974552613) 2-16 BUN (test code = 9658524024) 5 mg/dL 7-23 L GLUCOSE (test code = 2597708677) 191 mg/dL 70-110 H CREATININE (test code = 8854492826) 0.56 mg/dL 0.6-1.25 L CALCIUM (test code = 1976605259) 8.9 mg/dL 8.6-10.6 eGFR Calculation (Non-) (test code = 8915630558) mL/min/1.73m2 eGFR Calculation () (test code = 0697713777) mL/min/1.73m2 OSKAR (test code = OSKAR) Association [...] imaging tests). Lab Interpretation (test code = 72618-3) Abnormal [facility] 11:55:00* Test Item Value Reference Range Interpretation Comme [facility] LIPASE (test code = 9524708982) 40 U/L 0-220 Lab Interpretation (test cod e = 73554-8) Normal [facility]2020-06-27 09:09:00* Test Item Value Reference Range Interpretation Comme [facility] POCT GLU (test code = 7795396187) 185 mg/dL 70-110 H Lab Interpretation (test cod e = 08668-6) Abnormal [facility] GLUCOSE (AUTOMATED)2020-06-27 08:09:00* Test Item Value Reference Range Interpretation Comme nts POCT GLU (test code = 6881721525) 124 mg/dL 70-110 H Lab Interpretation (test cod e = 14439-0) Abnormal [facility] GLUCOSE (AUTOMATED)2020-06-27 07:11:00* Test Item Value Reference Range Interpretation Comme nts POCT GLU (test code = 8634410451) 104 mg/dL 70-110 Lab Interpretation (test cod e = 47290-9) Normal [facility] GLUCOSE (AUTOMATED)2020-06-27 06:04:00* Test Item Value Reference Range Interpretation Comme nts POCT GLU (test code = 2480862747) 97 mg/dL 70-110 Lab Interpretation (test cod e = 23433-1) Normal [facility] GLUCOSE (AUTOMATED)2020-06-27 04:54:00* Test Item Value Reference Range Interpretation Comme nts POCT GLU (test code = 9069677839) 54 mg/dL 70-110 L Lab Interpretation (test cod e = 82043-0) Abnormal [facility] GLUCOSE (AUTOMATED)2020-06-27 04:04:00* Test Item Value Reference Range Interpretation Comme nts POCT GLU (test code = 6817751804) 88 mg/dL 70-110 Lab Interpretation (test cod e = 08210-7) Normal [facility] GLUCOSE (AUTOMATED)2020-06-27 03:32:00* Test Item Value Reference Range Interpretation Comme nts POCT GLU (test code = 1154531403) 104 mg/dL 70-110 Lab Interpretation (test cod e = 04206-5) Normal [facility] GLUCOSE (AUTOMATED)2020-06-27 03:05:00* Test Item Value Reference Range Interpretation Comme nts POCT GLU (test code = 8692351894) 68 mg/dL 70-110 L Lab Interpretation (test cod e = 97101-0) Abnormal [facility] GLUCOSE (AUTOMATED)2020-06-27 02:05:00* Test Item Value Reference Range Interpretation Comme nts POCT GLU (test code = 2141612251) 113 mg/dL 70-110 H Lab Interpretation (test cod e = 49401-2) Abnormal [facility] GLUCOSE (AUTOMATED)2020-06-27 01:21:00* Test Item Value Reference Range Interpretation Comme nts POCT GLU (test code = 7304981034) 122 mg/dL 70-110 H Lab Interpretation (test cod e = 37607-8) Abnormal [facility] GLUCOSE (AUTOMATED)2020-06-27 00:09:00* Test Item Value Reference Range Interpretation Comme nts POCT GLU (test code = 1279746903) 125 mg/dL 70-110 H Lab Interpretation (test cod e = 50910-6) [facility]normal [facility] 23:47:00* Test Item Value Reference Range Interpretation Comme nts TRIG (test code = 6213968993) 1086 mg/dL 30-170 H Lab Interpretation (test cod e = 97266-4) Abnormal [facility] GLUCOSE (AUTOMATED)2020-06-26 23:12:00* Test Item Value Reference Range Interpretation Comme nts POCT GLU (test code = 0508361835) 175 mg/dL 70-110 H Lab Interpretation (test cod e = 65721-5) Abnormal [facility] GLUCOSE (AUTOMATED)2020-06-26 23:12:00* Test Item Value Reference Range Interpretation Comme nts POCT GLU (test code = 0985467031) 81 mg/dL 70-110 Lab Interpretation (test cod e = 96520-7) Normal [facility] GLUCOSE (AUTOMATED)2020-06-26 22:50:00* Test Item Value Reference Range Interpretation Comme nts POCT GLU (test code = 2256412618) 88 mg/dL 70-110 Lab Interpretation (test cod e = 51689-5) Normal [facility] GLUCOSE (AUTOMATED)2020-06-26 22:26:00* Test Item Value Reference Range Interpretation Comme nts POCT GLU (test code = 6627952926) 91 mg/dL 70-110 Lab Interpretation (test cod e = 57915-0) Normal [facility] GLUCOSE (AUTOMATED)2020-06-26 17:06:00* Test Item Value Reference Range Interpretation Comme nts POCT GLU (test code = 6245313876) 227 mg/dL 70-110 H Lab Interpretation (test cod e = 94028-6) Abnormal [facility]OTE[facility], [id number] 16:31:00* Test Item Value Reference Range Interpretation Comme nts dLDL Chol (test code = 78228-0) <30 See_Comment [Automated DutyCalculatora ge] The system which generated this result transmitted reference range: <130 mg/dL. The reference range was not used to interpret this result as normal/abnormal. Lab Interpretation (test code = 52974-9) Normal [facility] (67403)(TOTAL CHOLESTEROL, TRIGLYCERIDES, HDL)2020-06-26 13:16:00* Test Item Value Reference Range Interpretation Comme nts CHOL (test code = 4787440680) 217 mg/dL 120-200 H HDL (test code = 2537374025) 13 mg/dL >40 L HDLC RATIO (test code = 4020738680) See_Comment H [Automated DutyCalculatora [employer]] The system which generated this result transmitted reference range: <=5.0. The reference range was not used to interpret this result as normal/abnormal. TRIG (test code = 1104684189) 1337 mg/dL 30-170 H LDL CHOL (test code = 09565-3) Unable to calcul ate LDL due to elevated triglyceride level greater than 400 mg/dL. VLDL (test code = 4990621482) Unable to calcul ate VLDL due to elevated triglyceride level greater than 710 mg/dL. Lab Interpretation (test code = 53287-3) Abnormal [facility] 13:03:00* Test Item Value Reference Range Interpretation Comme nts LIPASE (test code = 4134096120) 60 U/L 0-220 Lab Interpretation (test cod e = 30869-2) Normal [facility]YCOSYLATED HEMOGLOBIN (A1C)2020-06-26 12:46:00* Test Item Value Reference Range Interpretation Comme nts HGB A1C (test code = 4548-4) 9.2 % 4-6 H OSKAR (test code = OSKAR) %A1C (NGSP) Interpretation (ADA)4.8-5.6 ? ? Normal or (Non-Diabetic Range)5.7-6.4 ? ? Increased Risk (Pre-Diabetic)>6.5 ?Diabetes Indicated Lab Interpretation (test code = 60827-1) Abnormal [facility]2020-06-26 11:24:00* Test Item Value Reference Range Interpretation Comme nts POCT GLU (test code = 5327961664) 209 mg/dL 70-110 H Lab Interpretation (test cod e = 25922-3) Abnormal [facility] A[facility]OMEN PELVIS W DIDDBCYT3232-28-33 05:55:56Impression: 1. Peripancreatic inflammation, likely representing acute [...] demonstrated in the upper abdomen. RL: 2824AFC: 29788 End of Report Exam: CT Abdomen and [...] demonstrated in the upper abdomen. RL: 2824AFC: 42254Nat of Report [facility] (ID NOW RAPID TESTING)2020-06-26 03:44:00* Test Item Value Reference Range Interpretation Comme nts SARS-CoV-2 Rapid ID NOW (test code = 80549-5) Not Detected Not Detected OSKAR (test code = OSKAR) ID NOW COVID-19 As say is an isothermal nucleic acid amplification test intended for the qualitative detection of nucleic acid from SARS-CoV-2 viral RNA in nasopharyngeal (ARRT TECHNOLOGIST) specimens. It is used under Emergency Use [...] clinically indicated. Lab Interpretation (test code = 76711-0) Normal [facility]. METABOLIC PANEL (60136)2020-06-26 03:17:00* Test Item Value Reference Range Interpretation Comme nts NA (test code = 8007025475) 136 mmol/L 135-145 K (test code = 0832884658) 4.3 mmol/L 3.5-5 CL (test code = 7737235577) 97 mmol/L 98-108 L CO2 TOTAL (test code = 6019850362) 31 mmol/L 23-31 AGAP (test code = 1068033854) 2-16 BUN (test code = 5539856132) 7 mg/dL 7-23 GLUCOSE (test code = 7622655232) 220 mg/dL 70-110 H CREATININE (test code = 4982337746) 0.68 mg/dL 0.6-1.25 TOTAL BILI (test code = 5309992246) 1.6 mg/dL 0.1-1.1 H CALCIUM (test code = 6329185312) 9.4 mg/dL 8.6-10.6 T PROTEIN (test code = 7591648488) 7.6 g/dL 6.3-8.2 ALBUMIN (test code = 0593827085) 4.4 g/dL 3.5-5 ALK PHOS (test code = 4428931094) 103 U/L 34-122 ALTv (test code = 1742-6) 113 U/L 5-50 H AST(SGOT) (test code = 3213927221) 87 U/L 13-40 H eGFR Calculation (Non-) (test code = 1010209353) mL/min/1.73m2 eGFR Calculation () (test code = 2910574238) mL/min/1.73m2 OSKAR (test code = OSKAR) Association [...] imaging tests). Lab Interpretation (test code = 42080-9) [facility] Test Item Value Reference Range Interpretation Comme nts LIPASE (test code = 1031789423) 57 U/L 0-220 Lab Interpretation (test cod e = 10678-0) Normal [facility] WITH [id number] 03:00:00* Test Item Value Reference Range Interpretation Comme nts WBC (test code = 6690-2) See_Comment [Automated [employer]] The system which generated this result transmitted reference range: 4.20 - 10.70 10*3/?L. The reference range was not used to interpret this result as normal/abnormal. RBC (test code = 789-8) See_Comment [Automated [employer]] The system which generated this result transmitted [...] g/dL 31.2-35 H RDW-SD (test code = 40158-4) 35.3 fL 38.5-51.6 L RDW-CV (test code = 788-0) 11.9 % 12.1-15.4 L PLT (test code = 777-3) See_Comment L [Automated messa ge] The system which generated this result transmitted reference range: 150 - 328 10*3/?L. The reference range was not used to interpret this result as normal/abnormal. MPV (test code = 26697-2) 9.3 fL 9.8-13 L NRBC/100 WBC (test code = 7299901404) See_Comment [Automated [employer]age] The system which generated this result transmitted reference range: 0.0 - 10.0 /100 WBCs. The reference range was not used to interpret this result as normal/abnormal. NRBC x10^3 (test code = 8448949215) <0.01 See_Comment [Automated messa ge] The system which generated this result transmitted reference range: 10*3/?L. The reference range was not used to interpret this result as normal/abnormal. GRAN MAT (NEUT) % (test code = 770-8) 74.6 % IMM GRAN % (test code = 9977303717) 0.30 % LYMPH % (test code = 736-9) 18.7 % MONO % (test code = 5905-5) 4.8 % EOS % (test code = 713-8) 1.1 % BASO % (test code = 706-2) 0.5 % GRAN MAT x10^3(ANC) (test code = 2592948457) 4.71 10*3/uL 1.99-6.95 IMM GRAN x10^3 (test code = 8226643935) <0.03 0-0.06 LYMPH x10^3 (test code = 731-0) 1.18 10*3/uL 1.09-3.23 MONO x10^3 (test code = 742-7) 0.30 10*3/uL 0.36-1.02 L EOS x10^3 (test code = 711-2) 0.07 10*3/uL 0.06-0.53 BASO x10^3 (test code = 704-7) 0.03 10*3/uL 0.01-0.09 Lab Interpretation (test code = 12656-3) [facility] 02:46:00* Test Item Value Reference Range Interpretation Comme nts POCT GLU (test code = 6335031307) 248 mg/dL 70-110 H Lab Interpretation (test cod e = 15914-2) Abnormal [facility] Notes Date/Time Note Provider Source 2024-02-01 13:40:26 Esther Clayton sent referral sent to HIM Adelita Mcmullen [facility] 2023-12-13 21:39:04 Patient leaving AMA,discussed risks of [...] no distress Jeannie De La Torre RN [facility] 2023-12-13 19:50:27 ERP with patient and pt's to assess and discuss POC/dispo. Bessy Jean-Baptiste RN [facility] 2023-12-13 19:13:59 Obtained PIV, labs, returned pt to lobby via w/c w/ in accompaniment. NAD noted. A&OX4. RA, resp even and unlabored. [facility] 2023-12-13 17:25:19 Pt states" I have dizziness, vomiting for 1 week and when I walked I feel short of breath" No edema or swelling on both feet, denies any cardiac hx but like to be check. Destiny Herrera RN [facility] 2021-10-03 19:14:00 [facility] enter [address] [place] [address] Orthopedics Operative Note Signed Patient: Alex Auguste Medical Record#: [id number] : 1980 Acct:[id number] Age/Sex: 41 / M ADM Date: 10/03/21 Loc: [facility] Room: Report Number: [id number] Attending [address]: Chetan Coleman MD Orthopedic Operative [...] reduction pin fixation of distal phalanx fracture 07528 Left ring finger repair of wound involving matrix 72081 Left small finger reduction pin fixation of distal phalanx fracture 05979 Left small finger repair of wound involving matrix 60002 Surgeon: Chetan Coleman MD Anesthesia: General, see [...] was given 1 final cleaning with 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 Patient instructed to call the practice number on front of packet for any questions including date and time of next encounter. Dr. Coleman has directly prescribed to patient all outpatient medications, none to be dispensed by [facility]. The specific instruction at time of hospital [...] performing this procedure and is used for supplier quality engineer reproducibly on each case including that of [...] Coleman MD 10/03/211953 DD/ 13 TD/TT: 10/03/211913 [employer] Operator Helper: LIV cc: LIV; PCPNO* Chetan Coleman MD; Pcp-Md SANDRA Barragan [facility]
[2024-05-31] MEDS ORDERED: KETOROLAC 30 MG/ML INJ ONE (01:45)
[2024-05-31] MEDS ORDERED: ONDANSETRON 4 MG/2 ML VIAL ONE ×2 (01:45→09:21)
[2024-05-31] MEDS ORDERED: DIPHENOX/ATROP SULF 1 TAB PO ONE (01:46)
[2024-05-31] MEDS ORDERED: FAMOTIDINE 20 MG/2 ML VIAL IV ONE (01:46)
[2024-05-31] MEDS ORDERED: NA CHLORIDE 0.9% 1,000 ML ONE ×4 (01:46→04:58)
[2024-05-31] MEDS ORDERED: MORPHINE 4 MG/ML SYR ONE ×2 (01:46→03:37)
[2024-05-31] MEDS ORDERED: SUCRALFATE 1GM/10ML UCUP ONE (01:47)
[2024-05-31 02:15] LABS: Absolute Eosinophils 0.1 K/uL (0-0.5); Absolute Lymphocytes (CBC) 1.2 K/uL (0.7-4.9); Absolute Monocytes 0.2 K/uL (0.1-1.3); Absolute Neutrophil 2.4 K/uL (1.8-8.0); Eosinophils % 1.7 % (0-4.4); Hematocrit 36.4 % (39.6-49.0); Lymphocytes % 29.6 % (15.3-44.8); MCV 84.1 fL (80-100); MPV 8.2 fL (7.6-11.3); Monocytes % 5.5 % (3.3-12.3); Neutrophils % 62.2 % (41.7-73.7); Nucleated Red Blood Cells % 0.1 % (0-0); Platelets 109 thou/uL (152-406); RBC Red Blood Cell Count 4.33 M/uL (4.33-5.43); Red Cell Distribution Width 12.9 % (12.1-15.2)
[2024-05-31 02:17] LABS: Specific Gravity 1.023 (1.005-1.030); Sqamous Epithelial None Seen /HPF (None Seen); Urine Bacteria None Seen /HPF (<20); Urine Bilirubin NEGATIVE (Negative); Urine Blood Negative (Negative); Urine Clarity Clear (Clear); Urine Color Light-Yellow (Yellow); Urine Culture Reflex Order NOT NEEDED; Urine Glucose 4+ (Over) (Negative); Urine Ketones NEGATIVE (Negative); Urine Microscopic Reflex YN ORDER UMIC; Urine Nitrite NEGATIVE (Negative); Urine Protein NEGATIVE (Negative); Urine RBC <5 /HPF (None Seen); Urine Urobilinogen Normal (Normal); Urine WBC None Seen /HPF (<5); Urine pH 6.5 (5.0-7.0)
[2024-05-31 02:36] LABS: MCH 30.2 pg (27.0-35.0); MCHC 35.7 g/dL (32.0-36.0)
[2024-05-31 02:59] LABS: Albumin 3.9 g/dL (3.4-5.0); Albumin/Globulin Ratio 1.1 (1.1-1.8); Anion Gap 11.7 mEq/L (5.0-15.0); Bilirubin Total 1.2 mg/dL (0.2-1.0); Globulin 3.4 g/dL (2.3-3.5); Potassium 3.7 mEq/L (3.5-5.1); Protein, Total 7.3 g/dL (6.4-8.2)
[2024-05-31] MEDS ORDERED: INSULIN REGULAR (HUMAN) 100 UNIT/ML ONE ×2 (03:13→09:33)
[2024-05-31] MEDS ORDERED: METOCLOPRAMIDE 10 MG/2mL INJ ONE (03:34)
--- NOTE | 2024-05-31 04:27 | EDPHYS ---
Physician Documentation [facility] Name: Alex Auguste Age: 43 yrs Sex: Male : 1980 Arrival Date: 05/31/2024 Time: 01:05 Bed 8 Private MD: ED Physician Moises Bocanegra HPI: 05/31 01:09 This 43 yrs old Male presents to ER via Unassigned with complaints of sp4 Epigastric Pain, Abdominal Pain. 04:27 43-year-old male with history of chronic pancreatitis and recurrent acute pancreatitis sp4 presents with acute midepigastric abdominal pain associate with nausea. Pain is worsened in the last several hours.. Historical: - Allergies: :28 No Known Allergies; lg3 - Home Meds: :28 Xanax Oral [Active]; Lexapro Oral [Active]; lg3 - PMHx: 01:28 angina pectoris; Chronic Pancreatitis; Diabetes - IDDM; GERD; High Triglycerides; lg3 Hypertensive disorder; Anxiety; Depressive disorder; - PSHx: 01:28 Cholecystectomy; hand; lg3 - Immunization history:: Adult Immunizations up to date. - Infectious Disease History:: Denies. - Social history:: Smoking status: Reported history of juuling and/or vaping. Patient/guardian denies using alcohol, street drugs. - Family history:: not pertinent. ROS: 04:27 Constitutional: Negative for fever, chills, and weight loss, positive midepigastric sp4 abdominal pain, positive nausea 04:27 All other systems are negative, Exam: 04:27 Constitutional: This is a well developed, well nourished patient who is awake, alert, sp4 and in no acute distress. Head/Face: Normocephalic, atraumatic. Eyes: Pupils equal round and reactive to light, extra-ocular motions intact. Lids and lashes normal. Conjunctiva and sclera are not injected. Cornea within normal limits. Periorbital areas with no swelling, redness, or edema. ENT: Nares patent. No nasal discharge, no septal abnormalities noted. Tympanic membranes are normal and external auditory canals are clear. Oropharynx with no redness, swelling, or masses, exudates, or evidence of obstruction, uvula midline. Mucous membranes moist. Neck: Trachea midline, no thyromegaly or masses palpated, and no cervical lymphadenopathy. Supple, full range of motion without nuchal rigidity, or vertebral point tenderness. Chest/axilla: Normal chest wall appearance and motion. Nontender with no deformity. No lesions are appreciated. Cardiovascular: Regular rate and rhythm with a normal S1 and S2. No gallops, murmurs, or rubs. Normal PMI, no JVD. No pulse deficits. Respiratory: Lungs have equal breath sounds bilaterally, clear to auscultation and percussion. No rales, rhonchi or wheezes noted. Positive for diffuse abdominal tenderness Abdomen/GI: Soft, with normal bowel sounds. No distension or tympany. No guarding or rebound. No evidence of tenderness throughout. Back: No spinal tenderness. No costovertebral tenderness. Skin: Warm, dry with normal turgor. Normal color with no rashes, no lesions, and no evidence of cellulitis. MS/ Extremity: Pulses equal, no cyanosis. Neurovascular intact. Full, normal range of motion. Neuro: Awake and alert, GCS 15, oriented to person, place, time, and situation. Cranial nerves II-XII grossly intact. Motor strength 5/5 in all extremities. Sensory grossly intact. Psych: Awake, alert, with orientation to person, place and time. Behavior, mood, and affect are within normal limits Vital Signs: 01:27 BP 132 / 90; Pulse 90; Resp 17 S; Temp 97.9(O); Pulse Ox 98% on R/A; Weight 91.63 kg lg3 (R); Height 5 ft. 10 in. (R); Pain 10/10; 01:59 BP 118 / 100; Pulse 84; Resp 18; Pulse Ox 94% on R/A; ay 02:00 BP 124 / 90; Pulse 78; Resp 18; Pulse Ox 95% on R/A; ay 05:00 BP 97 / 66; Pulse 70; Resp 18; Pulse Ox 96% on R/A; ay 05:30 BP 110 / 73; Pulse 70; Resp 18; Pulse Ox 97% on R/A; ay 07:32 BP 102 / 63; Pulse 66; Resp 15; Pulse Ox 95% ; ko1 01:27 Body Mass Index 28.98 (91.63 kg, 177.8 cm) lg3 01:27 Pain Scale: Adult lg3 Ethel Coma Score: 01:59 Eye Response: spontaneous(4). Motor Response: obeys commands(6). Verbal Response: ay oriented(5). Total: 15. MDM: 01:12 Medical Screening Exam initiated sp4 04:27 Differential diagnosis: appendicitis, bowel obstruction, diverticulitis, gastritis, sp4 gastroesophageal reflux disease, GI Bleed, pancreatitis. Data reviewed: vital signs, nurses notes, lab test result(s), radiologic studies, CT scan. Consideration of Admission/Observation Patient was admitted/placed on observation. Escalation of care including admission/observation considered. Management of patient was discussed with the following: Hospitalist: Kartik FLORES . ED course: Stable for admission, No signs of necrotizing pancreatitis. . 05/31 01:11 Order name: CBC with Diff; Complete Time: 03:07 4 05/31 01:11 Order name: CMP; Complete Time: 03:07 4 05/31 01:11 Order name: Lipase; Complete Time: 03:07 4 05/31 01:11 Order name: Urinalysis w/ reflexes; Complete Time: 03:07 4 05/31 05:09 Order name: Lipid Profile EDGA 05/31 05:49 Order name: Urinalysis w/ reflexes EDMS 05/31 05:49 Order name: CBC with Automated Diff EDMS 05/31 05:49 Order name: CBC with Automated Diff EDMS 05/31 05:49 Order name: Comprehensive Metabolic Panel EDGA 05/31 05:49 Order name: Comprehensive Metabolic Panel EDGA 05/31 09:39 Order name: Glucose, Ancillary Testing EDGA 05/31 03:08 Order name: CT Abd/Pelvis - IV Contrast Only [facility] 05/31 01:11 Order name: IV Saline Lock; Complete Time: :57 sp4 05/31 01:11 Order name: Labs collected and sent; Complete Time: :57 sp4 05/31 04:31 Order name: NPO; Complete Time: 09:49 sp4 Administered Medications: 01:56 Drug: Famotidine IVP 20 mg IVP once; dilute with 10 mL 0.9% NaCl; give over 2 minutes ay Route: IVP; Site: right forearm; 02:40 Follow up: Response: No adverse reaction ay 01:56 Drug: Sucralfate PO 1 grams PO once Route: PO; ay 02:38 Follow up: Response: No adverse reaction ay 01:56 Drug: Diphenoxylate-Atropine PO 2 tabs PO once Route: PO; ay 02:38 Follow up: Response: No adverse reaction ay 01:57 Drug: NS 0.9% IV 1000 ml IV at 1 bolus Per protocol; to be given as a bolus over 60 ay minutes Route: IV; Rate: 1 bolus; Site: right forearm; 02:40 Follow up: Response: No adverse reaction ay 07:22 Follow up: IV Status: Completed infusion; IV Intake: 1000ml ay 01:58 Drug: TORadol - Ketorolac IVP 30 mg IVP once Route: IVP; Site: right forearm; ay 02:40 Follow up: Response: No adverse reaction ay 01:58 Drug: Ondansetron IVP 4 mg IVP once; over 2 minutes Route: IVP; Site: right forearm; ay 02:40 Follow up: Response: No adverse reaction ay :58 Drug: morphine IVP or IV 4 mg IVP once over 4 mins Route: IVP; Infused Over: 4 mins; ay Site: right forearm; 02:41 Follow up: Response: No adverse reaction ay 03:23 Drug: NS 0.9% IV 1000 ml IV at 1 bolus Per protocol; to be given as a bolus over 60 ay minutes Route: IV; Rate: 1 bolus; Site: right forearm; 04:44 Follow up: IV Status: Completed infusion; IV Intake: 1000ml ay 03:47 Drug: metoCLOPramide IVP 10 mg IVP once; over 1 to 2 minutes Route: IVP; Site: right ay forearm; 04:43 Follow up: Response: No adverse reaction ay 04:44 Follow up: Response: No adverse reaction ay 03:48 Drug: morphine IVP or IV 6 mg IVP once over 4 mins Route: IVP; Infused Over: 4 mins; ay Site: right forearm; 04:43 Follow up: Response: No adverse reaction ay 04:43 Drug: NS 0.9% IV 1000 ml IV at 125 ml/hr continuous Route: IV; Rate: 125 ml/hr; Site: ay right forearm; 07:21 Follow up: Response: No adverse reaction; IV Status: Infusion continued upon admission ay 05:10 Drug: Albumin IVPB 25 grams 100 ml IVPB once; (Note: Albumin 25% concentration) Volume: ay 100 ml; Route: IVPB; Site: right forearm; 06:33 Follow up: IV Status: Completed infusion; IV Intake: 100ml ay 05:10 Drug: NS 0.9% IV 1000 ml IV at 1000 ml once; to be given as a bolus over 60 minutes ay Route: IV; Rate: 1000 ml; Site: right forearm; 07:20 Follow up: Response: No adverse reaction; IV Status: Completed infusion; IV Intake: ay 1000ml 05:11 Drug: Insulin Regular Human IVP 5 units IVP once {Co-Signature: cp4 (sherice Callahan).} Route: IVP; Site: right forearm; 06:06 Follow up: Response: No adverse reaction ay 06:32 Drug: fentaNYL (PF) IVP 50 mcg IVP once Route: IVP; Site: right forearm; ay 07:19 Follow up: Response: No adverse reaction ay 06:32 Drug: Promethazine IM 25 mg IM once Route: IM; Site: right deltoid; ay 07:19 Follow up: Response: No adverse reaction ay Disposition Summary: 05/31/24 04:26 Hospitalization Ordered Notes: Hospitalization Status: Inpatient Admission sp4 Provider: Jose Guadalupe Verdugo spJesica Condition: Stable sp4 Problem: new sp4 Symptoms: have improved sp4 Bed/Room Type: Standard sp4 Location: Telemetry/MedSurg (Inpatient)(05/31/24 15:26) bd Room Assignment: 229(05/31/24 15:26) bd Diagnosis - Acute recurrent pancreatitis, uncontrolled diabetes mellitus type 2, acute sp4 hyperglycemia, history of pancreatic cyst, pancreatic tail cyst Forms: - Medication Reconciliation Form sp4 - SBAR form sp4 - Leadership Thank You Letter sp4 Signatures: Dispatcher [employer] Marylin Alas Lacie, RN RN lg3 Potepalov, Sergey, MD MD sp4 Noelle Pearce RN RN ay Potter, Christina cp4 Corrections: (The following items were deleted from the chart) 05:05 04:26 Telemetry/MedSurg (Inpatient) sp4 lg3 05:05 04:26 sp4 lg3 15:26 05:05 [facility] ER HOLD lg3 bd 15:26 05:05 ERHOLD- lg3 bd
--- NOTE | 2024-05-31 04:27 | ER ---
Nurse's Notes [facility] Name: Alex Auguste Age: 43 yrs Sex: Male : 1980 Arrival Date: 05/31/2024 Time: 01:05 Bed 8 Private MD: Diagnosis: Acute recurrent pancreatitis, uncontrolled diabetes mellitus type 2, acute hyperglycemia, history of pancreatic cyst, pancreatic tail cyst Presentation: 05/31 01:27 Chief complaint: Patient states: i think i have pancreatitis again. upper abdominal lg3 pain with vomiting X2 hours. diarrhea X3 months. pain 04/20. Coronavirus screen: Client denies travel out of the [place] in the last 14 days. At this time, the client does not indicate any symptoms associated with coronavirus-19. Ebola Screen: No symptoms or risks identified at this time. Initial Sepsis Screen: Does the patient meet any 2 criteria? No. Patient's initial sepsis screen is negative. Does the patient have a suspected source of infection? No. Patient's initial sepsis screen is negative. Risk Assessment: Do you want to hurt yourself or someone else? Patient reports no desire to harm self or others. Onset of symptoms was May 30, 2024. 01:27 Method Of Arrival: Ambulatory lg3 01:27 Acuity: [place] 3 lg3 Triage Assessment: 01:28 General: Appears in no apparent distress. comfortable, Behavior is calm, cooperative. lg3 Pain: Complains of pain in epigastric area, right upper quadrant and left upper quadrant Pain currently is 10 out of 10 on a pain scale. EENT: No deficits noted. No signs and/or symptoms were reported regarding the EENT system. Neuro: No deficits noted. Mera Agitation-Sedation Scale (RASS): 0 - Alert and Calm Level of Consciousness is awake, alert, obeys commands, Oriented to person, place, time, situation. Cardiovascular: No deficits noted. Denies chest pain, shortness of breath, Capillary refill < 3 seconds Clubbing of nail beds is absent JVD is absent Patient's skin is warm and dry. Respiratory: No deficits noted. Airway is patent Respiratory effort is even, unlabored, Respiratory pattern is regular, symmetrical. GI: Abdomen is round non-distended, Abd is soft X 4 quads Abdomen is tender to palpation in right upper quadrant and left upper quadrant Reports diarrhea, nausea. : No signs and/or symptoms were reported regarding the genitourinary system. Derm: No deficits noted. No signs and/or symptoms reported regarding the dermatologic system. Skin is intact, is healthy with good turgor, Skin is dry, Skin is normal, Skin temperature is warm. Musculoskeletal: No deficits noted. No signs and/or symptoms reported regarding the musculoskeletal system. Circulation, motion, and sensation intact. Range of motion: intact in all extremities. Historical: - Allergies: : No Known Allergies; lg3 - Home Meds: : Xanax Oral [Active]; Lexapro Oral [Active]; lg3 - PMHx: : angina pectoris; Chronic Pancreatitis; Diabetes - IDDM; GERD; High Triglycerides; lg3 Hypertensive disorder; Anxiety; Depressive disorder; - PSHx: Cholecystectomy; hand; lg3 - Immunization history:: Adult Immunizations up to date. - Infectious Disease History:: Denies. - Social history:: Smoking status: Reported history of juuling and/or vaping. Patient/guardian denies using alcohol, street drugs. - Family history:: not pertinent. Screenin:[facility] ED Fall Risk Assessment (Adult) History of falling in the last 3 months, ay including since admission No falls in past 3 months (0 pts) Confusion or Disorientation No (0 pts) Intoxicated or Sedated No (0 pts) Impaired Gait No (0 pts) Mobility Assist Device Used No (0 pt) Altered Elimination No (0 pt) Score/Fall Risk Level 0 - 2 = Low Risk Oriented to surroundings, Maintained a safe environment, Educated pt \T\ family on fall prevention, incl call for assistance when getting out of bed. Abuse screen: Denies threats or abuse. Nutritional screening: On diabetic diet. Tuberculosis screening: No symptoms or risk factors identified. Assessment: 02:06 General: Appears in no apparent distress. comfortable. Pain: Complains of pain in ay epigastric area Pain Quality of pain is described as sharp, stabbing, Noted to be. Neuro: Level of Consciousness is awake, alert, obeys commands, Oriented to person, place, time, situation, [place] are equal bilaterally Speech is normal. Cardiovascular: Heart tones S1 S2. Respiratory: Airway is patent. GI: No signs and/or symptoms were reported involving the gastrointestinal system. : No deficits noted. Musculoskeletal: No deficits noted. 03:53 Reassessment: No changes from previously documented assessment. ay 05:35 Reassessment: Patient denies pain at this time. ay Vital Signs: 01:27 BP 132 / 90; Pulse 90; Resp 17 S; Temp 97.9(O); Pulse Ox 98% on R/A; Weight 91.63 kg lg3 (R); Height 5 ft. 10 in. (R); Pain 10/10; 01:59 BP 118 / 100; Pulse 84; Resp 18; Pulse Ox 94% on R/A; ay 02:00 BP 124 / 90; Pulse 78; Resp 18; Pulse Ox 95% on R/A; ay 05:00 BP 97 / 66; Pulse 70; Resp 18; Pulse Ox 96% on R/A; ay 05:30 BP 110 / 73; Pulse 70; Resp 18; Pulse Ox 97% on R/A; ay 07:32 BP 102 / 63; Pulse 66; Resp 15; Pulse Ox 95% ; ko1 01:27 Body Mass Index 28.98 (91.63 kg, 177.8 cm) lg3 01:27 Pain Scale: Adult lg3 Vitals: 01:59 Cardiac Rhythm Assessment Regular. ay Wili Coma Score: 01:59 Eye Response: spontaneous(4). Motor Response: obeys commands(6). Verbal Response: ay oriented(5). Total: 15. ED Course: 01:07 Patient arrived in ED. [email or web address] 01:09 Moises Bocanegra MD is Attending Physician. sp4 01:28 Triage completed. lg3 01:28 Arm band placed on left wrist. lg3 01:35 Jim Dawn, RN is Primary Nurse. bm8 01:57 No provider procedures requiring assistance completed. Initial lab(s) drawn, by clary john sent to lab. Urine collected: clean catch specimen, clear. Inserted saline lock: 20 gauge in right forearm, using aseptic technique. Blood collected. Flushed with 10 mL NS. Patient maintains SpO2 saturation greater than 95% on room air. 01:59 Patient has correct armband on for positive identification. Placed in gown. Bed in low ay position. Call light in reach. Side rails up X2. Door closed. Noise minimized. Pillow given. 03:57 CT Abd/Pelvis - IV Contrast Only In Process Unspecified. EDMS 04:25 Jose Guadalupe Verdugo MD is Hospitalizing Provider. sp4 07:17 Provided Education on: Procedure Consent. ay 07:17 Patient admitted, IV remains in place. ay 07:25 Primary Nurse role handed off by Jim Dawn, RN bm8 07:34 Geraldo Aquino, KECIA is Primary Nurse. rs5 15:31 1523 CM met with at the bedside in the ED exam room. Patient identified by ane name and . Demographic sheet confirmed. PCP is JOSE ENRIQUE Finnegan. No MPOA in place. Patient states he lives in a singles barstow home with his Dominique. He states that prior to admission, he performs ADLs independently. No DME, no HH, no home oxygen, or other medical services at this time. Hi preferred plan is to return home upon discharge and reports that either his Mom or his Dominique will transport him home. CM team will continue to follow and coordinate care. Administered Medications: 01:56 Drug: Famotidine IVP 20 mg IVP once; dilute with 10 mL 0.9% NaCl; give over 2 minutes ay Route: IVP; Site: right forearm; 02:40 Follow up: Response: No adverse reaction ay 01:56 Drug: Sucralfate PO 1 grams PO once Route: PO; ay 02:38 Follow up: Response: No adverse reaction ay 01:56 Drug: Diphenoxylate-Atropine PO 2 tabs PO once Route: PO; ay 02:38 Follow up: Response: No adverse reaction ay 01:57 Drug: NS 0.9% IV 1000 ml IV at 1 bolus Per protocol; to be given as a bolus over 60 ay minutes Route: IV; Rate: 1 bolus; Site: right forearm; 02:40 Follow up: Response: No adverse reaction ay 07:22 Follow up: IV Status: Completed infusion; IV Intake: 1000ml ay :58 Drug: TORadol - Ketorolac IVP 30 mg IVP once Route: IVP; Site: right forearm; ay 02:40 Follow up: Response: No adverse reaction ay 01:58 Drug: Ondansetron IVP 4 mg IVP once; over 2 minutes Route: IVP; Site: right forearm; ay 02:40 Follow up: Response: No adverse reaction ay :58 Drug: morphine IVP or IV 4 mg IVP once over 4 mins Route: IVP; Infused Over: 4 mins; ay Site: right forearm; 02:41 Follow up: Response: No adverse reaction ay 03:23 Drug: NS 0.9% IV 1000 ml IV at 1 bolus Per protocol; to be given as a bolus over 60 ay minutes Route: IV; Rate: 1 bolus; Site: right forearm; 04:44 Follow up: IV Status: Completed infusion; IV Intake: 1000ml ay 03:47 Drug: metoCLOPramide IVP 10 mg IVP once; over 1 to 2 minutes Route: IVP; Site: right ay forearm; 04:43 Follow up: Response: No adverse reaction ay 04:44 Follow up: Response: No adverse reaction ay 03:48 Drug: morphine IVP or IV 6 mg IVP once over 4 mins Route: IVP; Infused Over: 4 mins; ay Site: right forearm; 04:43 Follow up: Response: No adverse reaction ay 04:43 Drug: NS 0.9% IV 1000 ml IV at 125 ml/hr continuous Route: IV; Rate: 125 ml/hr; Site: ay right forearm; 07:21 Follow up: Response: No adverse reaction; IV Status: Infusion continued upon admission ay 05:10 Drug: Albumin IVPB 25 grams 100 ml IVPB once; (Note: Albumin 25% concentration) Volume: ay 100 ml; Route: IVPB; Site: right forearm; 06:33 Follow up: IV Status: Completed infusion; IV Intake: 100ml ay 05:10 Drug: NS 0.9% IV 1000 ml IV at 1000 ml once; to be given as a bolus over 60 minutes ay Route: IV; Rate: 1000 ml; Site: right forearm; 07:20 Follow up: Response: No adverse reaction; IV Status: Completed infusion; IV Intake: ay 1000ml 05:11 Drug: Insulin Regular Human IVP 5 units IVP once {Co-Signature: cp4 (sherice Callahan.} Route: IVP; Site: right forearm; 06:06 Follow up: Response: No adverse reaction ay 06:32 Drug: fentaNYL (PF) IVP 50 mcg IVP once Route: IVP; Site: right forearm; ay 07:19 Follow up: Response: No adverse reaction ay 06:32 Drug: Promethazine IM 25 mg IM once Route: IM; Site: right deltoid; ay 07:19 Follow up: Response: No adverse reaction ay Medication: 01:59 VIS not applicable for this client. ay Intake: 04:44 IV: 1000ml; Total: 1000ml. ay 06:33 IV: 100ml; Total: 1100ml. ay 07:20 IV: 1000ml; Total: 2100ml. ay 07:22 IV: 1000ml; Total: 3100ml. ay Outcome: 04:26 Decision to Hospitalize by Provider. sp4 05:36 Admitted to ER Hold. Please see [facility] for further documentation. ay 05:36 Condition: stable 07:17 Instructed on the need for admit, Demonstrated understanding of instructions, ay 16:45 Patient left the ED. rs5 Signatures: Dispatcher [employer] EDMS Juany Galan, RN RN shana3 Karlee Whelan6 Destiny White, RN RN ko1 Geraldo Aquino RN RN rs5 Moises Bocanegra MD MD sp4 Jim Dawn, RN Francesca Larson RN Noelle Kent, RN [facility]
[2024-05-31] MEDS ORDERED: ALBUMIN HUMAN 25% 50 ML IV ONE (04:57)
[2024-05-31] MEDS: ALBUMIN HUMAN 25% 50 ML IV ONE (05:02)
--- NOTE | 2024-05-31 05:36 | P.HP ---
Certification for Inpatient Patient admitted to: Inpatient With expected LOS: >2 Midnights Practitioner: I am a practitioner with admitting privileges, knowledge of patient current condition, hospital course, and medical plan of care. Services: Services provided to patient in accordance with Admission requirements found in Title 42 Section 412.3 of the Code of Federal Regulations Patient History Date of Service: 05/31/24 Reason for admission: Abdominal Pain History of Present Illness: 44-year-old male with past medical history of diabetes, hypertension, hypertriglyceridemia, chronic pancreatitis, angina, history of anxiety, depression who was brought to ER with epigastric pain and abdominal pain which has been going on since yesterday. Pain is sharp 8 out of 10 in severity. Radiating to back. Associated with some nausea and vomiting. Denies any fever or chills. No chest pain or shortness of breath. No sick contacts. Feels like similar episodes in the past of acute pancreatitis. Patient was assessed in the ER and is found to have elevated lipase and was admitted for further management of acute on chronic pancreatitis Allergies No Known Drug Allergies Allergy (Verified 05/29/18 03:33) NONE Home medications list reviewed: Yes Home Medications: Insulin Aspart [Novolog Flexpen] See Protocol SQ ACHS 01/08/22 Insulin Glargine,Hum.rec.anlog [Lantus Solostar] 36 unit SQ DAILY 01/08/22 Fenofibrate [Tricor*] 160 mg PO DAILY #30 tab 01/10/22 Ondansetron [Zofran] 4 mg PO Q6H PRN 4 Days #18 tab 07/10/23 - Past Medical/Surgical History Diabetic: Yes Past Medical History: Reviewed- Non-Contributory -: Chronic Pancreatitis (due to high triglycerides) -: Type 2 Diabetes -: pancreatitis -: [place] -: ray's palsy -: high triglyceride -: Cranial nerves 3 and 6 problems Past Surgical History: Reviewed- Non-Contributory -: cholecystectomy -: fx wrist -: knee surg Psychosocial/ Personal History: Patient lives at home with his family. - Family History Mother -: Heart disease Notes: Recent [place] Father -: Stroke Notes: glaucoma - Social History Smoking Status: Never smoker Alcohol use: No CD- Drugs: No Caffeine use: Yes Review of Systems 10-point ROS is otherwise unremarkable Physical Examination - Vital Signs Temperature: 97.8 F Blood Pressure: 98/62 Pulse: 92 Respirations: 18 Pulse Ox (%): 94 - Physical Exam General: Alert, Moderate distress HEENT: Atraumatic, Normocephalic Neck: Supple, No Thyromegaly Respiratory: Clear to auscultation bilaterally, Normal air movement Cardiovascular: No edema, Regular rate/rhythm, Normal S1 S2 Capillary refill: <2 Seconds Gastrointestinal: W/out hepatosplenomegaly, Tenderness Musculoskeletal: No clubbing, No swelling Integumentary: No rashes Neurological: Normal speech, Normal strength at 5/5 x4 extr, Cranial nerves 3-12 intact, Normal reflexes 2+ Lymphatics: No axilla or inguinal lymphadenopathy - Studies Laboratory Data (last 24 hrs) 05/31/24 05/31/24 01:41 01:41 WBC 3.90 L Hgb 13.0 L Hct 36.4 L Plt Count 109 L Sodium 135 L Potassium 3.7 BUN 20 H Creatinine 1.25 Glucose 412 H* Total Bilirubin 1.2 H AST 19 ALT 41 Alkaline Phosphatase 65 Lipase 284 H Assessment and Plan - Plan Acute on chronic pancreatitis Pain control Aggressive Rehydration N.p.o. for now Possibly due to triglyceridemia Will get lipid panel History of hypertension Antihypertensives held due to borderline hypotension Titrate as needed Diabetes with hyperglycemia Insulin sliding scale Accu-Chek before every meal and at bedtime History of hypertriglyceridemia Will monitor lipid panel GI/DVT prophylaxis Advanced directive full code - Advance Directives Does patient have a Living Will: No Does patient have a Durable POA for Healthcare: No - Code Status/Comfort Care Code Status: Full Code Time Spent Managing Pts Care (In Minutes): 48
[2024-05-31] MEDS ORDERED: ACETAMINOPHEN 325 MG TABLET PO PRN (05:45)
[2024-05-31] MEDS ORDERED: GLUCAGON 1 MG/VIAL IM PRN (05:49)
[2024-05-31] MEDS ORDERED: D10W 125 ML IV PRN (05:49)
--- NOTE | 2024-05-31 05:53 | RAD REPORT ---
CLINICAL HISTORY: Abdominal pain. COMPARISON: CT Abdomen Pelvis 05/02/2024. TECHNIQUE: CT ABDOMEN PELVIS WITH IV CONTRAST on 05/31/2024 3:08 AM MUD ENGINEER This exam was performed according to our departmental dose-optimization program, which includes autom ated exposure control, adjustment of the mA and/or kV according to patient size and/or use of iterative reconstruction technique. FINDINGS: Lower lungs are clear. Abdomen: The liver is normal in appearance. There is no biliary dilatation. Cholecystectomy was perfo rmed. Spleen is enlarged measuring 16.5 cm. There is a slightly complex cyst in the pancreatic tail measuring 3.8 cm. There are multiple vascular collaterals in the left upper quadrant. The adrenal gla nds and kidneys are unremarkable. Abdominal aorta is normal in course and caliber without aneurysm. There is no free air. There is no r etroperitoneal adenopathy. Pelvis: The there is scattered diverticulosis throughout the colon. Urinary bladder is unremarkable. There is no free fluid. Appendix is normal. Skeleton: There are no acute osseous findings. No suspicious bony lesions. IMPRESSION: No definite acute inflammatory process. Splenomegaly with multiple vascular collaterals in the left upper quadrant. Slightly complex pancreatic tail cyst. Consider nonemergent MRI. Electronically signed by: Tian Guido MD 05/31/2024 04:25 AM MUD ENGINEER RP Due to temporary technical issues with the PACS/TableGrabber reporting system, reports are being beatrice d by the in-house radiologist without review as a courtesy to ensure prompt reporting the interpreting radiologist is fully responsible for the content of the report. Transcribed Date/Time: 05/31/2024 5:53 AM
[2024-05-31] MEDS: Ringers Lactate 1,000 ML IV SCH (06:00)
[2024-05-31] MEDS ORDERED: PROMETHAZINE INJ 25 MG/ML AMP ONE (06:16)
[2024-05-31] MEDS ORDERED: FENTANYL CITR 100 MCG/2 ML ONE (06:19)
[2024-05-31 07:16] VITALS: BMI 28.8
[2024-05-31 07:28] LABS: HDL Cholesterol 21 mg/dL (40-60)
[2024-05-31 07:40] LABS: LDL, Direct 17 mg/dL (100-129)
[2024-05-31] MEDS: ENOXAPARIN 40 MG/0.4 ML SQ SCH (09:00)
[2024-05-31] MEDS ORDERED: MORPHINE 2 MG/ML SYR ONE ×2 (09:21→13:33)
[2024-05-31] MEDS ORDERED: ENOXAPARIN 40 MG/0.4 ML SQ ONE (09:22)
[2024-05-31] MEDS: INSULIN REGULAR (HUMAN) 100 UNIT/ML SQ SCH (09:40)
[2024-05-31] MEDS: ONDANSETRON 4 MG/2 ML VIAL IV PRN (09:41)
[2024-05-31] MEDS: MORPHINE 2 MG/ML SYR IV PRN (09:41)
--- NOTE | 2024-05-31 10:49 | P.PN ---
Date of Service: 05/31/24 Subjective: seen on rounds in afternoon walking hallway without issue reports pain unchanged, and current regimen not enough nausea improved, no vomiting since admission some loose stool ROS: 10 point ROS as noted above, otherwise negative Physical Exam: GEN: Alert, oriented, NAD CV: Regular rate and rhythm, no edema Pulm: Nonlabored respirations on room air, clear bilaterally ABD: soft, moderate epigastric tenderness, nondistended Neuro: Normal speech, normal affect Problem List: Acute on chronic pancreatitis h/o pancreastitis secondary to hyperTG hyperbilirubinemia IDDM2 Hypertension Anxiety/Depression Acute on chronic pancreatitis secondary to hyperTG on admission, presents with worsening epigastric abdominal pain associated with nausea/vomiting feels similar to past episodes of acute pancreatitis per patient Lipase 284, Triglycerides 525 continue IV fluids with LR@150ml/hr pain control, antiemetics trend TG, lipase sips of water/ice chips ok for now hyperbilirubinemia likely reactive. Continue to monitor no obstructive signs/symptoms at this time trend IDDM2 accu-cheks, SSI confirm home insulin regimen Hypertension Anxiety/Depression confirm home meds, restart as appropriate VTE: Lovenox Code: Full Dispo: Home, 1-2 days pains improves, tolerating diet Time Spent Managing Pts Care (In Minutes): 45
[2024-05-31] MEDS ORDERED: HYDROCODONE/APAP 5/325 MG TAB ONE (11:55)
[2024-05-31] MEDS: PNEUMOCOCCAL VACCINE 0.5 ML IMVAC ONE (12:00)
[2024-05-31] MEDS: HYDROCODONE/APAP 5/325 MG TAB PO PRN (13:15)
[2024-06-01 06:10] LABS: Absolute Lymphocytes (CBC) 0.8 K/uL (0.7-4.9); Absolute Monocytes 0.1 K/uL (0.1-1.3); Absolute Neutrophil 1.4 K/uL (1.8-8.0); Eosinophils % 1.5 % (0-4.4); Hematocrit 32.5 % (39.6-49.0); Hemoglobin 11.7 g/dL (13.6-17.9); Lymphocytes % 35.2 % (15.3-44.8); MCH 30.7 pg (27.0-35.0); MCHC 36.1 g/dL (32.0-36.0); MPV 7.7 fL (7.6-11.3); Monocytes % 4.8 % (3.3-12.3); Neutrophils % 57.5 % (41.7-73.7); Nucleated Red Blood Cells % 0.1 % (0-0); Platelets 97 thou/uL (152-406); RBC Red Blood Cell Count 3.82 M/uL (4.33-5.43)
[2024-06-01 06:29] LABS: Albumin 3.1 g/dL (3.4-5.0); Albumin/Globulin Ratio 1.1 (1.1-1.8); Anion Gap 5.9 mEq/L (5.0-15.0); Globulin 2.8 g/dL (2.3-3.5); Protein, Total 5.9 g/dL (6.4-8.2)
[2024-06-01 06:30] LABS: Potassium 3.9 mEq/L (3.5-5.1)
[2024-06-01 08:45] LABS: Blood Morphology Comment NOT SEEN (NOT SEEN); Platelet Estimate DECR; White Blood Cell Scan OK (OK)
[2024-06-01] MEDS: HYDROCODONE/APAP 7.5/325 MG TAB PO PRN (09:33)
[2024-06-01] MEDS: POTASSIUM CL SA 10 MEQ TAB PO ONE (09:33)
[2024-06-01] MEDS: ALPRAZOLAM 1 MG TABLET PO SCH (09:33)
--- NOTE | 2024-06-01 10:29 | P.PN ---
Date of Service: 06/01/24 Subjective: feels ~same as yesterday, doesn't feel worse tolerated some ice chips yesterday episode of nausea/vomiting this morning afebrile ROS: 10 point ROS as noted above, otherwise negative Physical Exam: GEN: Alert, oriented, NAD CV: Regular rate and rhythm, no edema Pulm: Nonlabored respirations on room air, clear bilaterally ABD: soft, mild epigastric tenderness, nondistended Neuro: Normal speech, normal affect Problem List: Acute on chronic pancreatitis secondary to hyperTG h/o pancreatitis secondary to hyperTG hyperbilirubinemia, improved IDDM2 Hypertension Anxiety/Depression Acute on chronic pancreatitis secondary to hyperTG h/o pancreatitis secondary to hyperTG on admission, presents with worsening epigastric abdominal pain associated with nausea/vomiting feels similar to past episodes of acute pancreatitis per patient Lipase 284, Triglycerides 525 on admission continue IV fluids with LR@150ml/hr pain control, antiemetics trend TG, 525 -> 724 lipase resolved 06/01 trial of CLD for lunch hyperbilirubinemia, improved likely reactive. Continue to monitor no obstructive signs/symptoms at this time improved IDDM2 accu-cheks, SSI confirm home insulin regimen Hypertension Anxiety/Depression confirm home meds, restart as appropriate home xanax resumed 06/01 VTE: Lovenox Code: Full Dispo: Home, 1-2 days pains improves, tolerating diet Time Spent Managing Pts Care (In Minutes): 45
[2024-06-01 11:10] VITALS: O2SAT 96
[2024-06-02 08:24] LABS: Absolute Lymphocytes (CBC) 0.9 K/uL (0.7-4.9); Absolute Monocytes 0.2 K/uL (0.1-1.3); Basophils % 0.6 % (0-1.3); Eosinophils % 1.4 % (0-4.4); Hematocrit 32.8 % (39.6-49.0); Hemoglobin 11.5 g/dL (13.6-17.9); Lymphocytes % 28.9 % (15.3-44.8); MCH 30.2 pg (27.0-35.0); MCHC 35.1 g/dL (32.0-36.0); MCV 86.2 fL (80-100); MPV 8.7 fL (7.6-11.3); Monocytes % 5.4 % (3.3-12.3); Neutrophils % 63.7 % (41.7-73.7); Nucleated Red Blood Cells % 0.3 % (0-0); Platelets 82 thou/uL (152-406); Red Cell Distribution Width 13.3 % (12.1-15.2)
[2024-06-02 08:42] LABS: Albumin 3.2 g/dL (3.4-5.0); Albumin/Globulin Ratio 1.2 (1.1-1.8); Anion Gap 8.5 mEq/L (5.0-15.0); Bilirubin Total 1.1 mg/dL (0.2-1.0); Globulin 2.7 g/dL (2.3-3.5); Magnesium 1.5 mg/dL (1.6-2.4); Potassium 3.5 mEq/L (3.5-5.1); Protein, Total 5.9 g/dL (6.4-8.2)
--- NOTE | 2024-06-02 10:02 | P.PN ---
Date of Service: 06/02/24 Subjective: feeling better overall today but doesn't feel worse tolerating some clear liquids but hasn't had much intake here pain slightly more tolerable no BM yet ROS: 10 point ROS as noted above, otherwise negative Physical Exam: GEN: Alert, oriented, NAD CV: Regular rate and rhythm, no edema Pulm: Nonlabored respirations on room air, clear bilaterally ABD: soft, mild epigastric tenderness, nondistended Neuro: Normal speech, normal affect Problem List: Acute on chronic pancreatitis secondary to hyperTG h/o pancreatitis secondary to hyperTG hyperbilirubinemia, improved IDDM2 Hypertension Anxiety/Depression Acute on chronic pancreatitis secondary to hyperTG h/o pancreatitis secondary to hyperTG on admission, presents with worsening epigastric abdominal pain associated with nausea/vomiting feels similar to past episodes of acute pancreatitis per patient CT abdomen (05/31): splenomegaly with multiple vascular collaterals in LUQ. Slightly complex pancreatic tail cyst. Lipase 284, Triglycerides 525 on admission continue IV fluids with LR@150ml/hr pain control, antiemetics trend TG, slightly worse but overall feeling improvement lipase resolved 06/01 advance to full liquid diet for lunch. advised to avoid fatty foods. resume home fenofibrate, rosuvastatin 06/02 hyperbilirubinemia, improved likely reactive. Continue to monitor no obstructive signs/symptoms at this time improved IDDM2 accu-cheks, SSI confirm home insulin regimen Hypertension Anxiety/Depression confirm home meds, restart as appropriate home xanax resumed 06/01 VTE: Lovenox Code: Full Dispo: Home, 1-2 days pains improves, tolerating diet Time Spent Managing Pts Care (In Minutes): 45
[2024-06-02] MEDS: Magnesium Sulfate 2gm IVPB 2 G/50 ML BAG IV ONE (10:20)
[2024-06-02] MEDS: FENOFIBRATE 160 MG TAB PO SCH (10:21)
[2024-06-02] MEDS: INSULIN GLARGINE 100 UNIT/ML SQ ONE (10:24)
[2024-06-02] MEDS: POTASSIUM 25 MEQ EFFERV TAB PO ONE (12:52)
[2024-06-02 19:15] LABS: Specific Gravity 1.005 (1.005-1.030); Urine Bilirubin NEGATIVE (Negative); Urine Blood Negative (Negative); Urine Clarity Clear (Clear); Urine Color Light-Yellow (Yellow); Urine Glucose 4+ (Negative); Urine Ketones NEGATIVE (Negative); Urine Microscopic Reflex YN NO UMIC; Urine Nitrite NEGATIVE (Negative); Urine Protein NEGATIVE (Negative); Urine Urobilinogen 1+ (Normal); Urine pH 7.5 (5.0-7.0)
[2024-06-02] MEDS: ROSUVASTATIN 10 MG TAB PO SCH (20:50)
[2024-06-03 07:46] LABS: Albumin 3.1 g/dL (3.4-5.0); Albumin/Globulin Ratio 1.1 (1.1-1.8); Anion Gap 4.7 mEq/L (5.0-15.0); Bilirubin Total 1.3 mg/dL (0.2-1.0); Globulin 2.7 g/dL (2.3-3.5); Magnesium 1.8 mg/dL (1.6-2.4); Potassium 3.7 mEq/L (3.5-5.1); Protein, Total 5.8 g/dL (6.4-8.2)
[2024-06-03 08:55] VITALS: BP 116/68; TEMP 98.3
--- NOTE | 2024-06-03 10:06 | P.DS ---
Admission Date: 05/31/24 Discharge Date: 06/03/24 Disposition: ROUTINE DISCHARGE Discharge Condition: GOOD Reason for Admission: Abdominal Pain Brief History of Present Illness: 44yo M, PMH: diabetes, hypertension, hypertriglyceridemia, chronic pancreatitis, angina, history of anxiety, depression Patient was brought to ER with epigastric pain and abdominal pain which has been going on since yesterday. Pain is sharp 8 out of 10 in severity. Radiating to back. Associated with some nausea and vomiting. Denies any fever or chills. No chest pain or shortness of breath. No sick contacts. Feels like similar episodes in the past of acute pancreatitis. Patient was assessed in the ER and is found to have elevated lipase and was admitted for further management of acute on chronic pancreatitis Hospital Course: Problem List: Acute on chronic pancreatitis secondary to hyperTG, improving h/o pancreatitis secondary to hyperTG hyperbilirubinemia, improved IDDM2 Hypertension Anxiety/Depression Physician discharge instructions: Patient presented with worsening epigastric abdominal pain associated with nausea/vomiting secondary to acute on chronic pancreatitis secondary to hypertryglyceridemia. Lipase 284, Triglycerides [address] abdomen noted splenomegaly with multiple vascular collaterals in LUQ, slightly complex pancreatic tail cyst - similar to prior imaging. Patient was medically managed with bowel rest, pain control, IV hydration and had improvement of his symptoms. Lipase quickly improved with IV fluids, resolved 06/01. Triglycerides improved with hydration and restarting home fenofibrate. His diet was slowly advanced as tolerated, and he was able to tolerate full liquid diet without issues on day of discharge. Advised to continue soft food diet for next 3-5 days and slowly advance back to usual diet. Avoid fatty/greasy foods. Patient was feeling better, asking to go home, pain improving and tolerable on oral pain meds, abdominal pain improving, and was deemed stable for discharge. LFTs were noted to fluctuate throughout hospitalization. Recommend repeating LFTs within 1-2 weeks to ensure continued improvement/resolution. LFTs on discharge: T. bili 1.3 / AST 69 / ALT 82 Medications: norco Follow up: PCP 3-5 days Follow up with GI Please call to schedule / confirm appointments Physical Exam: GEN: Alert, oriented, NAD CV: Regular rate and rhythm, no edema Pulm: Nonlabored respirations on room air, clear bilaterally ABD: soft, nontender, nondistended Neuro: Normal speech, normal affect Vital Signs/Physical Exam: Temp Pulse Resp BP Pulse Ox 98.3 F 78 16 116/68 96 06/03/24 08:00 06/03/24 08:00 06/03/24 08:00 06/03/24 08:00 06/03/24 08:00 Laboratory Data at Discharge: WBC 3.10 thou/uL (4.3-10.9) L 06/02/24 04:11 Hgb 11.5 g/dL (13.6-17.9) L 06/02/24 04:11 Hct 32.8 % (39.6-49.0) L 06/02/24 04:11 Plt Count 82 thou/uL (152-406) L 06/02/24 04:11 Sodium 141 mEq/L (136-145) 06/03/24 06:27 Potassium 3.7 mEq/L (3.5-5.1) 06/03/24 06:27 BUN 8 mg/dL (7-18) 06/03/24 06:27 Creatinine 0.83 mg/dL (0.70-1.30) 06/03/24 06:27 Glucose 166 mg/dL (74-106) H 06/03/24 06:27 Magnesium 1.8 mg/dL (1.6-2.4) 06/03/24 06:27 Total Bilirubin 1.3 mg/dL (0.2-1.0) H 06/03/24 06:27 AST 69 U/L (15-37) H 06/03/24 06:27 ALT 82 U/L (16-61) H 06/03/24 06:27 Alkaline Phosphatase 100 U/L (45-117) D 06/03/24 06:27 Triglycerides 427 mg/dL (<150) H 06/03/24 06:27 Cholesterol 79 mg/dL (<200) 05/31/24 01:41 LDL Cholesterol Direct 17 mg/dL (100-129) L 05/31/24 01:41 HDL Cholesterol 21 mg/dL (40-60) L 05/31/24 01:41 Cholesterol/HDL Ratio 3.76 05/31/24 01:41 Lipase 25 U/L (13-75) 06/03/24 06:27 Home Medications: Fenofibrate [Tricor*] 160 mg PO DAILY #30 tab 01/10/22 ALPRAZolam [Alprazolam] 1 mg PO SEECOM 05/31/24 Escitalopram Oxalate [Lexapro] 10 mg PO SEECOM 05/31/24 Insulin Aspart (Niacinamide) [Fiasp 100 Unit/ml Flextouch] 20 unit SQ SEECOM 05/31/24 Insulin Aspart (Niacinamide) [Fiasp 100 Unit/ml Flextouch] 20 unit SQ SEECOM 05/31/24 Insulin Glargine,Hum.rec.anlog [Lantus Solostar] 36 unit SQ DAILY 05/31/24 Rosuvastatin Calcium 20 mg PO DAILY 05/31/24 Valsartan 160 mg PO SEECOM 05/31/24 Hydrocodone 7.5/APAP 325 [[place] 7.5/325 mg*] 1 tab PO Q8H PRN #15 tab 06/03/24 New Medications: Hydrocodone 7.5/APAP 325 [[place] 7.5/325 mg*] 1 tab PO Q8H PRN #15 tab PRN Reason: Pain Scale 8-10 (Severe) Physician Discharge Instructions: Physician discharge instructions: Patient presented with worsening epigastric abdominal pain associated with nausea/vomiting secondary to acute on chronic pancreatitis secondary to hypertryglyceridemia. Lipase 284, Triglycerides [address] abdomen noted splenomegaly with multiple vascular collaterals in LUQ, slightly complex pancreatic tail cyst - similar to prior imaging. Patient was medically managed with bowel rest, pain control, IV hydration and had improvement of his symptoms. Lipase quickly improved with IV fluids, resolved 06/01. Triglycerides improved with hydration and restarting home fenofibrate. His diet was slowly advanced as tolerated, and he was able to tolerate full liquid diet without issues on day of discharge. Advised to continue soft food diet for next 3-5 days and slowly advance back to usual diet. Avoid fatty/greasy foods. Patient was feeling better, asking to go home, pain improving and tolerable on oral pain meds, abdominal pain improving, and was deemed stable for discharge. LFTs were noted to fluctuate throughout hospitalization. Recommend repeating LFTs within 1-2 weeks to ensure continued improvement/resolution. LFTs on discharge: T. bili 1.3 / AST 69 / ALT 82 Medications: norco Follow up: PCP 3-5 days Follow up with GI Please call to schedule / confirm appointments Followup: Briana Hughes [Primary Care Provider] - Time spent managing pt's care (in minutes): 45
== END 2024-06-03 11:12 | disposition home or self-care (01) | DRG 439 ==
LOC: ER 01:05 → ERHOLD 05:45 → 2ND 16:22
PROVIDERS: ADMIT Family Medicine; ATTEND Hospitalist
DX: K85.90 Acute pancreatitis without necrosis or infection, unspecified (principal); K86.2 Cyst of pancreas; E78.00 Pure hypercholesterolemia, unspecified; E11.65 Type 2 diabetes mellitus with hyperglycemia; I10 Essential (primary) hypertension; F32.A Depression, unspecified; E78.1 Pure hyperglyceridemia; E80.6 Other disorders of bilirubin metabolism; K86.1 Other chronic pancreatitis; F41.9 Anxiety disorder, unspecified; K21.9 Gastro-esophageal reflux disease without esophagitis; Z79.4 Long term (current) use of insulin; Z90.49 Acquired absence of other specified parts of digestive tract; Z79.899 Other long term (current) drug therapy; Z87.891 Personal history of nicotine dependence
CPT/HCPCS: 36415; 74177; 80053; 80061; 81001; 81003; 82947; 83690; 83735; 83880; 84478; 85025; 96361; 96365; 96372; 96375; 99285; J1650; J2270; J2405; J2550; J2765; J3010; J3475; J7030; J7120; P9047; Q9967

== ENCOUNTER 2024-06-27 15:27 | Emergency (ER) | payer BC ==
--- OUTSIDE RECORDS SUMMARY | 2024-06-27 15:32 | XMS REPORT | Continuity of Care Document ---
Author Name Unknown Address [address] [facility] [place] [address] [facility] Address [address] [facility] [address] [place] [address] Care Team Providers Care Horse Identifier Name Role Phone Briana Hughes Primary Care Physician [phone] Chetan Coleman Attending Clinician Unavailable Doctor Unassigned, [place] Attending Clinician U Briana Lebron Attending Clinician [phone] Cole Guan MD Attending Clinician [phone] FORTINO FARRIS Attending Clinician Unavailable Fortino Farris MD Attending Clinician [phone] Nader Randall Attending Clinician [phone] Doctor Unassigned, [place] Attending Clinician U Lillian Pickett Attending Clinician [phone] Madeline MCDONNELL, Annita Huizar Attending Clinician [phone] Kofi Beebe MD Attending Clinician [phone] Laurence Jose MD Attending Clinician [phone] COLE GUAN Attending Clinician Unavailabl e FORTINO FARRIS Admitting Clinician Unavailable Laurence Jose MD Admitting Clinician [phone] Payers Payer Name Policy Type Policy Number Effective Date Expirati on Date Source [facility] [id number] 2019 00:00:00 Problems Condition Name Condition Details Condition Category Status Onset Date Resolution Date Last Treatment Date Treating Clinician Comments Source Acute on chronic pancreatit is Acute on chronic pancreatit is Disease Active 2019-07 00:00: 00 [facility] Hypertrigl yceridemia Hypertrigl yceridemia Disease Active 12-29 00:00: 00 [facility] Type 2 diabetes mellitus with complicati on, with long-term current use of insulin Type 2 diabetes mellitus with complicati on, with long-term current use of insulin Disease Active 12-29 00:00: 00 [facility] Type 2 diabetes mellitus with complicati on, with long-term current use of insulin Type 2 diabetes mellitus with complicati on, with long-term current use of insulin Disease Active 12-29 00:00: 00 [facility] Diplopia Diplopia Disease Active 2014-07 00:00: 00 [facility] Diabetes mellitus type 2, uncontroll ed, without complicati ons Diabetes mellitus type 2, uncontroll ed, without complicati ons Disease Active 04-04 00:00: 00 Overview: Formattin g of this note might be different from the original. 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 [facility] Allergies, Adverse Reactions, Alerts Allergy Name Allergy Type Status Severity Reaction(s) Onset Date Inactive Date Treating Clinician Comments Source No Known Drug Allergie s DA Active U 10-03 00:00: 00 [facility] No Known Drug Allergie s DA Active U 3-21 00:00: 00 [facility] No Known Drug Allergie s DA Active U 3-17 00:00: 00 [facility] NO KNOWN ALLERGIE S Drug Class Active [facility] Social History Social Habit Start Date Stop Date Quantity Comments Source History of tobacco use Snuff User [facility] Exposure to SARS-CoV-2 (event) Not sure [facility] Alcohol intake 2020-06-25 00:00:00 2020-06-25 00:00:00 Current non-drinker of alcohol (finding) [facility] Alcoholic beverage intake 2020-06-25 00:00:00 2020-06-25 00:00:00 0 /d [facility] History of Social function 2020-06-25 00:00:00 2020-06-25 00:00:00 [facility] Tobacco use and exposure 2015-04-22 00:00:00 2015-04-22 00:00:00 User of smokeless tobacco [facility] Sex assigned at 1980 00:00:00 1980 00:00:00 [facility] Smoking Status Start Date Stop Date Source Never smoked tobacco [facility] Medications Ordered Medication Name Filled Medication Name Start Date Stop Date Current Medication? Ordering Clinician Indication Dosage Frequency Signature (SIG) Comments Components Source insulin regular human (HUMULIN R) injection 6 Units 12-13 03:00: 00 12-13 02:04 :00 No 6U 6 Units, Slow IV Push, ONCE, 1 dose, On Wed12/13/23 at 2200, STAT, Indication for insulin: Hyperglyce adam [facility] ondansetron (ZOFRAN (PF)) injection 4 mg 12-13 03:00: 00 12-13 02:05 :00 No 4mg 4 mg, Slow IV Push, ONCE, 1 dose, On Wed12/13/23 at 2200, ANA MARIA [facility] morpHINE (4 mg/mL) injection 4 mg 12-13 02:00: 00 12-13 02:06 :00 No 4mg 4 mg, Slow IV Push, ONCE, 1 dose, On Wed12/13/23 at 2100, STAT [facility] insulin regular human (HUMULIN R) injection 6 Units 12-13 02:00: 00 12-13 01:19 :00 No 6U 6 Units, Slow IV Push, ONCE, 1 dose, On Wed12/13/23 at 2100, STAT, Indication for insulin: Hyperglyce adam [facility] NaCl 0.9% (NS) bolus infusion 1,000 mL 12-13 02:00: 00 12-13 02:34 :00 No 1000mL at 999 mL/hr, 1,000 mL, IV Infusion, ONCE, 1 dose, On Wed12/13/23 at 2100, STAT [facility] iopamidol (ISOVUE 370-500 mL) injection 79 mL 12-13 01:05: 00 12-13 01:05 :00 No [id number] 79mL 79 mL, Intravenou s, ONCE, 1 dose, On Wed12/13/23 at 2015, Routine [facility] morpHINE injection 2 mg 11-16 22:00: 00 11-16 22:00 :00 No 2mg 2 mg, Slow IV Push, ONCE, 1 dose, 11/16/20 at 1700, STAT [facility] predniSONE (DELTASONE) tablet 20 mg 11-16 21:30: 00 11-16 20:49 :00 No 20mg 20 mg, Oral, ONCE, 1 dose, 11/16/20 at 1630, ANA MARIA [facility] amoxicillin -clavulanat e (AUGMENTIN) 875-125 mg per tablet 1 tablet 11-16 21:30: 00 11-16 20:49 :00 No 1{tbl} 1 tablet, Oral, ONCE, 1 dose, 11/16/20 at 1630, Routine
Reason for Anti-Infec tive: Documented Infection< br>Documen j luis Infection Site: Abdominal< br>Duratio n of Therapy: 10 days [facility] iopamidol (ISOVUE 370-500 mL) injection 100 mL 11-16 20:45: 00 11-16 19:30 :00 No [id number] 100mL 100 mL, Intravenou s, ONCE, 1 dose, 11/16/20 at 1545, Routine [facility] morpHINE injection 4 mg 11-16 20:15: 00 11-16 19:12 :00 No 4mg 4 mg, Slow IV Push, ONCE, 1 dose, 11/16/20 at 1515, STAT [facility] ondansetron (ZOFRAN (PF)) injection 4 mg 11-16 19:30: 00 11-16 18:28 :00 No 4mg 4 mg, Slow IV Push, ONCE, 1 dose, 11/16/20 at 1430, ANA MARIA [facility] NaCl 0.9% (NS) bolus infusion 1,000 mL 11-16 19:30: 00 11-16 21:16 :00 No 1000mL at 999 mL/hr, 1,000 mL, IV Infusion, ONCE, 1 dose, 11/16/20 at 1430, STAT [facility] amoxicillin -clavulanat e 875-125 mg per tablet 11-16 00:00: 00 Yes [id number] 1{tbl} Take 1 tablet by mouth every 12 (twelve) hours. [facility] predniSONE 20 mg tablet 11-16 00:00: 00 Yes [id number] 1 PO BID x 4 days [facility] ibuprofen (IBU) tablet 800 mg 07-28 23:30: 00 07-28 22:44 :00 No 800mg 800 mg, Oral, ONCE, 1 dose, 07/28/20 at 1730, ANA MARIA [facility] Diclofenac Sodium (VOLTAREN) 1 % gel 07-28 00:00: 00 Yes [id number] Apply to area(s) 2 (two) times daily. [facility] insulin glargine (LANTUS U-100) injection 36 Units 2019-07 03:00: 00 Yes 36U 36 Units, Subcutaneo us, QHS, First dose (after last modificati on) on 06/29/20 at 2100, Until Discontinu ed, Routine [facility] gemfibroziL 600 mg tablet 2019-07 01:33: 08 Yes 600mg Take 600 mg by mouth 2 (two) times daily before breakfast and dinner. [facility] metoprolol tartrate 25 mg tablet 2019-07 01:33: 08 Yes 25mg Take 25 mg by mouth 2 (two) times daily. [facility] Pantoprazol e 40 mg delayed-rel ease suspension 2019-07 01:33: 08 Yes 40mg Take 40 mg by mouth daily. [facility] busPIRone 10 mg tablet 2019-07 01:33: 08 Yes 10mg Take 10 mg by mouth 2 (two) times daily. [facility] niacin 500 mg tablet 2019-07 01:33: 08 Yes 500mg Take 500 mg by mouth daily with breakfast. [facility] lipase-prot ease-amylas e (CREON) 36,000-114, 000- 180,000 unit CpDR 2019-07 01:33: 08 Yes [id number] Take 36,000 Units by mouth with all meals. Take 2 capsules by mouth with meals and 1 with each snack. [facility] losartan 25 mg tablet 2019-07 01:33: 08 Yes 25mg Take 25 mg by mouth daily. [facility] vortioxetin e 10 mg Tab 2019-07 01:33: 08 Yes 10mg Take 10 mg by mouth at bedtime. [facility] gemfibroziL 600 mg tablet 2019-07 19:33: 08 Yes 600mg Take 600 mg by mouth 2 (two) times daily before breakfast and dinner. [facility] metoprolol tartrate 25 mg tablet 2019-07 19:33: 08 Yes 25mg Take 25 mg by mouth 2 (two) times daily. [facility] Pantoprazol e 40 mg delayed-rel ease suspension 2019-07 19:33: 08 Yes 40mg Take 40 mg by mouth daily. [facility] busPIRone 10 mg tablet 2019-07 19:33: 08 Yes 10mg Take 10 mg by mouth 2 (two) times daily. [facility] niacin 500 mg tablet 2019-07 19:33: 08 Yes 500mg Take 500 mg by mouth daily with breakfast. [facility] lipase-prot ease-amylas e (CREON) 36,000-114, 000- 180,000 unit CpDR 2019-07 19:33: 08 Yes [id number] Take 36,000 Units by mouth with all meals. Take 2 capsules by mouth with meals and 1 with each snack. [facility] losartan 25 mg tablet 2019-07 19:33: 08 Yes 25mg Take 25 mg by mouth daily. [facility] vortioxetin e 10 mg Tab 2019-07 19:33: 08 Yes 10mg Take 10 mg by mouth at bedtime. [facility] insulin glargine (LANTUS U-100) injection 15 Units 2019-07 15:00: 00 06-29 14:07 :00 No 15U 15 Units, Subcutaneo us, ONCE, 1 dose, 06/29/20 at 0900, Routine [facility] morpHINE injection 2 mg 2019-07 08:15: 00 Yes 2mg 2 mg, Slow IV Push, Q6HPRN, Starting 06/29/20 at 0215, Until Discontinu ed, Routine, Pain (scale 7-10) [facility] atorvastati n 40 mg tablet 2019-07 00:00: 00 07-30 05:59 :00 No [id number] 40mg Take 1 tablet by mouth at bedtime for 30 days. [facility] haloperidol lactate (HALDOL) injection 5 mg 2019-07 22:30: 00 06-28 22:51 :00 No 5mg 5 mg, Slow IV Push, ONCE NOW, 1 dose, 06/28/20 at 1630, Routine [facility] LORazepam (ATIVAN) injection 1 mg 2019-07 21:00: 00 06-28 20:16 :00 No 1mg 1 mg, Slow IV Push, ONCE, 1 dose, Wed06/28/20 at 1500, Routine [facility] FLUoxetine (PROZAC) capsule 20 mg 2019-07 20:30: 00 Yes 20mg 20 mg, Oral, DAILY, First dose on Wed06/28/20 at 1430, Until Discontinu ed, Routine [facility] NaCl 0.9% (NS) IV infusion 1,000 mL 2019-07 14:30: 00 Yes 1000mL at 100 mL/hr, IV Infusion, CONTINUOUS , Starting Wed06/28/20 at 0830, Until Discontinu ed, Routine [facility] KCL (KLOR-CON M20) tablet 40 mEq 2019-07 14:30: 00 06-28 14:38 :00 No 40meq 40 mEq, Oral, ONCE, 1 dose, Wed06/28/20 at 0830, Routine [facility] Sliding Scale Insulin-Reg ular + Fsbg Testing 2019-07 13:30: 00 Yes Subcutaneo us, AC+HS, First dose on Wed06/28/20 at 0730, Until Discontinu ed, Routine [facility] glucagon (GLUCAGEN DIAGNOSTIC KIT) injection 1 mg 2019-07 13:23: 08 Yes 1mg 1 mg, Intramuscu lar, PRN, Starting Wed06/28/20 at 0723, Until Discontinu ed, ANA MARIA, Blood Glucose < or = 70 mg/dL and patient is unable to swallow or has mental changes. [facility] dextrose 50 % in water (D50W) injection 25 mL 2019-07 13:23: 08 Yes 25mL 25 mL, Slow IV Push, PRN, Starting Wed06/28/20 at 0723, Until Discontinu ed, ANA MARIA, Blood Glucose < or = 70 mg/dL and patient is unable to swallow or has mental status changes. [facility] dextrose 50 % in water (D50W) injection 50 mL 2019-07 07:00: 06-28 06:00 :00 No 50mL 50 mL, Slow IV Push, ONCE, 1 dose, Wed06/28/20 at 0100, ANA MARIA [facility] metoprolol tartrate (LOPRESSOR) tablet 25 mg 2019-07 02:00: 00 Yes 25mg 25 mg, Oral, BID, First dose on Wed06/27/20 at 2000, Until Discontinu ed, Routine [facility] omega 3-dha-epa-f beckie oil (FISH OIL) capsule 1,000 mg 2019-07 20:00: 00 Yes 1000mg 1,000 mg, Oral, TID, First dose on Wed06/27/20 at 1400, Until Discontinu ed, Routine
Reason for non-formul caitlyn use: PATIENT CURRENTLY TAKING NONFORMULA RY PRODUCT
membership assistant approving Non-formul caitlyn medication : ELLIS ALMEIDA [facility] morpHINE injection 2 mg 2019-07 11:12: 04 06-29 08:04 :22 No 2mg 2 mg, Slow IV Push, Q4HPRN, Starting Wed06/27/20 at 0512, Until 06/29/20 at 0204, Routine, Pain (scale 7-10) [facility] insulin regular in 0.9 % NaCl (MYXREDLIN) 100 unit/100 mL (1 unit/mL) RTU IV infusion 2019-07 11:11: 38 06-28 13:21 :56 No 5U/h 5 Units/hr (5 mL/hr), IV Infusion, TITRATE, Notify hospitalis t to adjust insulin rate based on Triglyceri de level, Starting Wed06/27/20 at 0511
If glucose < 250, start D5W and titrate to keep glucose 100-180
[facility] atorvastati n (LIPITOR) tablet 40 mg 2019-07 03:00: 00 Yes 40mg 40 mg, Oral, QHS, First dose on Wed06/26/20 at 2100, Until Discontinu ed, Routine [facility] gemfibroziL (LOPID) tablet 600 mg 2019-07 02:00: 00 Yes 600mg 600 mg, Oral, BID, First dose on Wed06/26/20 at 2000, Until Discontinu ed, Routine [facility] busPIRone (BUSPAR) tablet 10 mg 2019-07 02:00: 00 Yes 10mg 10 mg, Oral, BID, First dose on Wed06/26/20 at 2000, Until Discontinu ed, Routine [facility] enoxaparin (LOVENOX) injection 40 mg 2019-07 23:00: 00 Yes 40mg 40 mg, Subcutaneo us, DAILY, First dose on Wed06/26/20 at 1700, Until Discontinu ed, Routine [facility] morpHINE injection 4 mg 2019-07 16:30: 00 06-27 07:29 :00 No 4mg 4 mg, Slow IV Push, Q3HPRN, Starting Wed06/26/20 at 1030, Until Padmini 06/27/20 at 0129, Routine, Pain (scale 7-10) [facility] insulin regular in 0.9 % NaCl (MYXREDLIN) 100 unit/100 mL (1 unit/mL) RTU IV infusion 2019-07 16:16: 21 06-27 11:12 :30 No 8U/h 8 Units/hr (8 mL/hr), IV Infusion, TITRATE, Notify hospitalis t to adjust insulin rate based on Triglyceri de level, Starting Wed06/26/20 at 1016
If glucose < 250, start D5W and titrate to keep glucose 100-180
[facility] proCHLORper azine (COMPAZINE) 10 mg in NaCl 0.9% (NS) piggyback 2019-07 16:15: 52 Yes 10mg 10 mg, IV Piggyback, Q4HPRN, Starting Wed06/26/20 at 1015, Until Discontinu ed, 50 mL [facility] ketorolac (TORADOL) injection 30 mg 2019-07 16:15: 35 Yes 30mg 30 mg, Slow IV Push, Q6HPRN, Starting Wed06/26/20 at 1015, Until Discontinu ed, Routine, Pain (scale 4-6)
Fa culty member approving Restricted medication : ELLIS ALMEIDA [facility] NaCl 0.9% (NS) IV infusion 1,000 mL 2019-07 14:15: 00 06-28 05:51 :27 No 1000mL at 125 mL/hr, 1,000 mL, IV Infusion, CONTINUOUS , Starting Wed06/26/20 at 0815, Until Padmini 06/27/20 at 2351, [facility] D5W 0.9% NaCl (NS) IV infusion 1,000 mL 2019-07 14:15: 00 06-28 13:21 :40 No 1000mL at 125 mL/hr, 1,000 mL, IV Infusion, CONTINUOUS , Starting Wed06/26/20 at 0815, Until Wed06/28/20 at 0721, [facility] Sliding Scale Insulin - Lispro (HumaLOG) + Fsbg Testing 2019-07 12:00: 00 06-26 21:57 :55 No Subcutaneo us, Q6H, First dose on Wed06/26/20 at 0600, Until Discontinu ed, Routine [facility] proMETHazin e (PHENERGAN) 12.5 mg in NaCl 0.9% (NS) 50 mL IV piggyback 2019-07 11:21: 28 Yes 12.5mg 12.5 mg, IV Piggyback, Q4HPRN, Starting Wed06/26/20 at 0521, Until Discontinu ed, Routine, Nausea and Vomiting (N/V) [facility] morpHINE injection 4 mg 2019-07 11:21: 11 06-26 16:15 :46 No 4mg 4 mg, Slow IV Push, Q4HPRN, Starting Wed06/26/20 at 0521, Until Wed06/26/20 at 1015, Routine, Pain (scale 7-10) [facility] NaCl 0.9% (NS) IV infusion 1,000 mL 2019-07 08:00: 00 06-26 14:01 :34 No 1000mL at 125 mL/hr, IV Infusion, CONTINUOUS , Starting Wed06/26/20 at 0200, Until Wed06/26/20 at 0801, Routine [facility] dextrose 50 % in water (D50W) injection 25 mL 2019-07 07:48: 20 06-28 13:26 :23 No 25mL 25 mL, Slow IV Push, PRN, Starting Wed06/26/20 at 0148, Until Wed06/28/20 at 0726, ANA MARIA, Blood Glucose < or = 70 mg/dL and patient is unable to swallow or has mental status changes. [facility] proMETHazin e (PHENERGAN) 25 mg in NaCl 0.9% (NS) 50 mL piggyback 2019-07 07:45: 00 06-26 07:45 :00 No 25mg 25 mg, IV Piggyback, ONCE, 1 dose, Wed06/26/20 at 0145, 50 mL [facility] FENTanyl PF (SUBLIMAZE (PF)) injection 100 mcg 2019-07 07:45: 00 06-26 06:34 :00 No 100ug 100 mcg, Slow IV Push, ONCE, 1 dose, Wed06/26/20 at 0145, Routine [facility] morpHINE injection 2 mg 2019-07 07:44: 30 06-26 11:21 :45 No 2mg 2 mg, Slow IV Push, Q4HPRN, Starting Wed06/26/20 at 0144, Until Wed06/26/20 at 0521, Routine, Pain (scale 7-10) [facility] acetaminoph en (TYLENOL) tablet 650 mg 2019-07 07:44: 20 Yes 650mg 650 mg, Oral, Q6HPRN, Starting Wed06/26/20 at 0144, Until Discontinu ed, Routine, Pain (scale 1-3) [facility] proMETHazin e (PHENERGAN) 25 mg in NaCl 0.9% (NS) 50 mL piggyback 2019-07 05:15: 00 06-26 05:15 :00 No 25mg 25 mg, IV Piggyback, ONCE, 1 dose, Wed06/25/20 at 2315, 50 mL [facility] FENTanyl PF (SUBLIMAZE (PF)) injection 100 mcg 2019-07 05:00: 00 06-26 03:51 :00 No 100ug 100 mcg, Slow IV Push, ONCE, 1 dose, 06/25/20 at 2300, STAT [facility] iohexol (OMNIPAQUE 350 BULK-150 mL) injection 120 mL 2019-07 04:45: 00 06-26 04:45 :00 No 120mL 120 mL, Intravenou s, ONCE, 1 dose, 06/25/20 at 2245, Routine [facility] NaCl 0.9% (NS) IV infusion 1,000 mL 2019-07 04:00: 00 06-26 14:01 :29 No 1000mL at 999 mL/hr, Intravenou s, CONTINUOUS , Starting 06/25/20 at 2200, Until 06/26/20 at 0801, Routine [facility] ondansetron (ZOFRAN (PF)) injection 4 mg 2019-07 04:00: 00 06-26 03:10 :00 No 4mg 4 mg, Slow IV Push, ONCE, 1 dose, 06/25/20 at 2200, ANA MARIA [facility] FENTanyl PF (SUBLIMAZE (PF)) injection 75 mcg 2019-07 04:00: 00 06-26 03:09 :00 No 75ug 75 mcg, Slow IV Push, ONCE, 1 dose, 06/25/20 at 2200, Routine [facility] LOVAZA, omega-3-aci d ethyl esters, 1 gram capsule 731 00:00: 00 Yes [id number] 3g Take 3 capsules by mouth daily. [facility] ondansetron (ZOFRAN ODT) 4 mg disintegrat ing tablet 11-11 00:00: 00 Yes [id number] 4mg Take 1 tablet by mouth every 8 (eight) hours as needed for Nausea and Vomiting (N/V). [facility] Insulin [place], Disposable, (BD INSULIN PEN NEEDLE UF) 31 gauge x 5/16" Ndle 9-25 00:00: 00 Yes QID, DX:E11.9 [facility] Insulin [place], Disposable, (BD INSULIN PEN NEEDLE UF) 31 gauge x 5/16" Ndle 04-05 00:00: 00 Yes QID, DX:E11.9 [facility] Insulin [place], Disposable, (BD INSULIN PEN NEEDLE UF) 31 gauge x 5/16" Ndle 04-05 00:00: 00 Yes QID, DX:E11.9 [facility] atorvastati n (LIPITOR) 40 mg tablet 04-05 00:00: 00 02-08 00:00 :00 No [id number] 40mg Take 1 tablet by mouth at bedtime. [facility] LOVAZA, omega-3-aci d ethyl esters, (LOVAZA) 1 gram capsule 04-05 00:00: 02-08 00:00 :00 No [id number] 2g Take 2 capsules by mouth 2 (two) times daily before breakfast and dinner. [facility] insulin aspart (NOVOLOG FLEXPEN) 100 unit/mL injection 12-29 00:00: 00 Yes [id number] Inject as instructed TID AC up to 80 units daily [facility] Insulin Glargine (LANTUS SOLOSTAR) 100 unit/mL (3 mL) injection 12-29 00:00: 00 Yes [id number] 35U inject 35 Units under the skin every morning. [facility] glucagon 1 mg/mL SolR injection 12-29 00:00: 00 02-08 00:00 :00 No [id number] Use as instructed in case of severe hypoglycem ia. [facility] zolpidem (AMBIEN) 10 mg tablet 2014-07 00:00: 00 06-26 00:00 :00 No TAKE ONE TABLET BY MOUTH ONCE DAILY AT BEDTIME [facility] traMADOL (ULTRAM) 50 mg tablet 2014-07 00:00: 00 06-26 00:00 :00 No 50mg Take 1 Tab by mouth every 6 (six) hours as needed for Pain (scale 7-10). [facility] aspirin 81 mg chewable tablet 2014-07 0 00:00: 00 02-08 00:00 :00 No 81mg Take 1 Tab by mouth daily. [facility] enalapril (VASOTEC) 5 mg tablet 2014-07 0 00:00: 00 02-08 00:00 :00 No 5mg Take 1 Tab by mouth daily. [facility] fenofibrate micronized (LOFIBRA) 134 mg capsule 2014-07 00:00: 00 02-08 00:00 :00 No 134mg Take 1 Cap by mouth daily. [facility] blood sugar diagnostic (FREESTYLE INSULINX) strip 2011-07 0 00:00: 00 02-08 00:00 :00 No [id number] before meals and at bedtime. [facility] Lancets (LANCETS,UL TRA THIN) [facility] 04-04 00:00: 00 Yes [id number] [facility] Lancets (LANCETS,UL TRA THIN) [facility] [place] 04-04 00:00: 00 Yes [id number] [facility] Vital Signs Vital Name Observation Time Observation Value Comments S kat Systolic blood pressure 2023-12-14 02:00:00 116 mm[Hg] [facility] Diastolic blood pressure 2023-12-14 02:00:00 79 mm[Hg] [facility] Heart rate 2023-12-14 02:00:00 71 /min [facility] [facility] Res[facility] rate 2023-12-14 02:00:00 16 /min [facility] Oxygen saturation in Arterial blood by Pulse oximetry 2023-12-14 02:00:00 100 /min [facility] Body temperature 2023-12-14 00:00:00 36.44 [facility] Body height 2023-12-13 22:27:00 177.8 cm [facility] Body weight 2023-12-13 22:27:00 83.915 kg [facility] BMI 2023-12-13 22:27:00 26.54 kg/m2 [facility] Systolic blood pressure 2020-11-16 21:02:00 150 mm[Hg] [facility] Diastolic blood pressure 2020-11-16 21:02:00 93 mm[Hg] [facility] Heart rate 2020-11-16 21:02:00 93 /min [facility] Respiratory rate 2020-11-16 21:02:00 20 /min [facility] Oxygen saturation in Arterial blood by Pulse oximetry 2020-11-16 21:02:00 100 /min [facility] Body temperature 2020-11-16 18:21:00 36.61 [facility] Body weight 2020-11-16 18:21:00 89.359 kg [facility] BMI 2020-11-16 18:21:00 28.27 kg/m2 [facility] Systolic blood pressure 2020-07-28 21:58:00 147 mm[Hg] [facility] Diastolic blood pressure 2020-07-28 21:58:00 100 mm[Hg] [facility] Heart rate 2020-07-28 21:58:00 103 /min [facility] Body temperature 2020-07-28 21:58:00 36.28 [facility] Respiratory rate 2020-07-28 21:58:00 20 /min [facility] Body weight 2020-07-28 21:58:00 86.183 kg [facility] BMI 2020-07-28 21:58:00 27.26 kg/m2 [facility] Oxygen saturation in Arterial blood by Pulse oximetry 2020-07-28 21:58:00 100 /min [facility] Systolic blood pressure 2020-06-29 22:21:00 133 mm[Hg] [facility] Diastolic blood pressure 2020-06-29 22:21:00 81 mm[Hg] [facility] Heart rate 2020-06-29 22:21:00 89 /min [facility] Body temperature 2020-06-29 22:21:00 36.83 [facility] Respiratory rate 2020-06-29 22:21:00 18 /min [facility] Oxygen saturation in Arterial blood by Pulse oximetry 2020-06-29 22:21:00 99 /min [facility] Body weight 2020-06-27 10:03:00 87.998 kg [facility] BMI 2020-06-27 10:03:00 27.84 kg/m2 [facility] Body height 2020-06-26 07:45:00 177.8 cm [facility] Systolic blood pressure 2020-06-29 22:21:00 133 mm[Hg] [facility] Diastolic blood pressure 2020-06-29 22:21:00 81 mm[Hg] [facility] Heart rate 2020-06-29 22:21:00 89 /min [facility] Body temperature 2020-06-29 22:21:00 36.83 [facility] Respiratory rate 2020-06-29 22:21:00 18 /min [facility] Oxygen saturation in Arterial blood by Pulse oximetry 2020-06-29 22:21:00 99 /min [facility] Body weight 2020-06-27 10:03:00 87.998 kg [facility] BMI 2020-06-27 10:03:00 27.84 kg/m2 [facility] Body height 2020-06-26 07:45:00 177.8 cm [facility] Procedures Procedure Date / Time Performed Performing Clinician Source POCT GLUCOSE (AUTOMATED) 2023-12-14 02:25:00 Isaiah F[facility] POCT GLUCOSE (AUTOMATED) 2023-12-14 02:04:00 Isaiah Farris [facility] POCT GLUCOSE (AUTOMATED) 2023-12-14 01:35:00 Isaiah Farris [facility] POCT GLUCOSE (AUTOMATED) 2023-12-14 01:18:00 Isaiah [facility] [facility] CT ABDOMEN PELVIS W CONTRAST 2023-12-14 01:09:58 Fortino Farris [facility] LIPASE 2023-12-14 00:08:00 [facility] TROPONIN I 2023-12-14 00:08:00 Fortino Farris [facility] COMP. METABOLIC PANEL (86933) 2023-12-14 00:08:00 Fortino Farris [facility] ETHANOL 2023-12-14 00:08:00 Fortino Farris [facility] CBC WITH DIFF 2023-12-14 00:08:00 Fortino Farris [facility] URINALYSIS 2023-12-14 00:08:00 Fortino Farris [facility] N-TERMINAL PRO-BNP 2023-12-14 00:08:00 Fortino Farris [facility] URINE DRUG (IMMUNOASSAY) - COMPREHENSIVE DRUG SCREEN W/O REFLEX 2023-12-14 00:08:00 Fortino Farris [facility] XR CHEST 1 VW 2023-12-13 23:22:21 Fortino Farris [facility] CT ABDOMEN PELVIS W CONTRAST 2020-11-16 19:40:14 Nader Mendoza [facility] LIPASE 2020-11-16 18:28:00 Nader Mendoza [facility] MAGNESIUM 2020-11-16 18:28:00 Nader Mendoza [facility] COMP. METABOLIC PANEL (04082) 2020-11-16 18:28:00 Nader Mendoza [facility] CBC WITH DIFF 2020-11-16 18:28:00 Nader Mendoza [facility] URINALYSIS 2020-11-16 18:28:00 Nader Mendoza [facility] POCT GLUCOSE (AUTOMATED) 2020-11-16 18:25:00 Nader Mendoza [facility] CONSENT/REFUSAL FOR DIAGNOSIS AND TREATMENT 2020-11-16 18:14:39 Doctor Unassigned, [place] [facility] CT CERVICAL SPINE WO CONTRAST 2020-07-28 22:41:56 L[address] [facility] HEAD WO CONTRAST 2020-07-28 22:41:56 Lillian Barr [facility] NOTICE OF PRIVACY PRACTICES 2020-07-28 21:50:31 Doctor Unassigned, [place] [facility] CONSENT/REFUSAL FOR DIAGNOSIS AND TREATMENT 2020-07-28 21:50:20 Doctor Unassigned, [place] [facility] POCT GLUCOSE (AUTOMATED) 2020-06-29 23:35:00 Rebeca [facility] POCT GLUCOSE (AUTOMATED) 2020-06-29 18:04:00 Rebeca [facility] POCT GLUCOSE (AUTOMATED) 2020-06-29 13:54:00 Rebeca [facility] TRIGLYCERIDES 2020-06-29 11:20:00 Ellis Almeida [facility] BASIC METABOLIC PANEL (NA, K, CL, CO2, GLUCOSE, BUN, CREATININE, CA) 2020-06-29 11:20:00 Rebeca [facility] CBC WITH DIFF 2020-06-29 11:20:00 Rebeca [facility] ADC / LCC - DRUG SCREEN TRIAGE 2020-06-29 03:10:00 Favio Moscoso [facility] POCT GLUCOSE (AUTOMATED) 2020-06-28 22:46:00 Rebeca [facility] POCT GLUCOSE (AUTOMATED) 2020-06-28 18:53:00 Rebeca [facility] POCT GLUCOSE (AUTOMATED) 2020-06-28 18:01:00 Rebeca [facility] POCT GLUCOSE (AUTOMATED) 2020-06-28 13:27:00 Rebeca [facility] POCT GLUCOSE (AUTOMATED) 2020-06-28 11:48:00 Rebeca [facility] TRIGLYCERIDES 2020-06-28 10:27:00 Ellis Almeida [facility] LIPASE 2020-06-28 10:27:00 Rebeca [facility] MAGNESIUM 2020-06-28 10:27:00 Favio Moscoso [facility] BASIC METABOLIC PANEL (NA, K, CL, CO2, GLUCOSE, BUN, CREATININE, CA) 2020-06-28 10:27:00 Rebeca [facility] ETHANOL 2020-06-28 10:27:00 Favio Moscoso [facility] CBC WITH DIFF 2020-06-28 10:27:00 Rebeca [facility] POCT GLUCOSE (AUTOMATED) 2020-06-28 10:10:00 Rebeca [facility] POCT GLUCOSE (AUTOMATED) 2020-06-28 07:00:00 Rebeca [facility] POCT GLUCOSE (AUTOMATED) 2020-06-28 05:48:00 Edtere [facility] POCT GLUCOSE (AUTOMATED) 2020-06-28 04:45:00 Edioncal [facility] POCT GLUCOSE (AUTOMATED) 2020-06-28 03:40:00 Edtere [facility] POCT GLUCOSE (AUTOMATED) 2020-06-28 02:43:00 Rebeca [facility] POCT GLUCOSE (AUTOMATED) 2020-06-28 01:39:00 Rebeca [facility] POCT GLUCOSE (AUTOMATED) 2020-06-27 23:10:00 [facility] TRIGLYCERIDES 2020-06-27 23:08:00 Ellis Almeida [facility] POCT GLUCOSE (AUTOMATED) 2020-06-27 21:29:00 Rebeca [facility] POCT GLUCOSE (AUTOMATED) 2020-06-27 19:54:00 [facility]) 2020-06-27 18:59:00 [facility] PO[facility] GLUCOSE (AUTOMATED) 2020-06-27 17:42:00 [facility] PO[facility] GLUCOSE (AUTOMATED) 2020-06-27 16:50:00 [facility] POCT GLUCOSE (AUTOMATED) 2020-06-27 14:43:00 [facility] POCT GLUCOSE (AUTOMATED) 2020-06-27 13:19:00 [facility] POCT GLUCOSE (AUTOMATED) 2020-06-27 12:18:00 [facility] TRIGLYCERIDES 2020-06-27 10:20:00 Ellis Almeida [facility] LIPASE 2020-06-27 10:20[facility]00 [facility] (NA, K, CL, CO2, GLUCOSE, BUN, CREATININE, CA) 2020-06-27 10:20:00 Momo [facility] CBC WITH DIFF 2020-06-27 10:20[facility] 2020-06-27 [facility] 2020-06-27 09:06:00 [facility] ([facility]OMATED) 2020-06-27 08:07:00 [facility]SE ([facility]OMATED) 2020-06-27 07:09:00 [facility] ([facility]OMATED) 2020-06-27 06:02:00 [facility] ([facility]OMATED) 2020-06-27 04:52:00 [facility]SE (AUTOMATED) 2020-06-27 04:02:00 [facility]SE (AUTOMATED) 2020-06-27 03:28:00 [facility]SE (AUTOMATED) 2020-06-27 03:02:00 [facility]SE (AUTOMATED) 2020-06-27 02:01:00 [facility]SE ([facility]OMATED) 2020-06-27 01:15:00 [facility]SE (AUTOMATED) 2020-06-27 00:07:00 [facility]SE (AUTOMATED) 2020-06-26 22:46:00 [facility] TRIGLY[facility]ERIDES 2020-06-26 22:07:00 Ellis Almeida [facility] POCT GLUCOSE (AUTOMATED) 2020-06-26 21:45:00 [facility]SE (AUTOMATED) 2020-06-26 20:38:00 Rebeca [facility] POCT GLUCOSE (AUTOMATED) 2020-06-26 18:13:00 Rebeca [facility] POCT GLUCOSE (AUTOMATED) 2020-06-26 17:03:00 Rebeca [facility] LIPASE 2020-06-26 11:15:00 Rebeca [facility] LIPID PANEL (31561)(TOTAL CHOLESTEROL, TRIGLYCERIDES, HDL) 2020-06-26 11:15:00 Rebeca [facility] GLYCOSYLATED HEMOGLOBIN (A1C) 2020-06-26 11:15:00 Rebeca [facility] LOW-DENSITY LIPOPROTEIN, DIRECT 2020-06-26 11:15:00 Rebeca [facility] POCT GLUCOSE (AUTOMATED) 2020-06-26 11:12:00 Rebeca [facility] CT ABDOMEN PELVIS W CONTRAST 2020-06-26 04:40:39 Kofi [facility] ASSIGNMENT OF BENEFITS 2020-06-26 03:16:02 Docto r Unassigned, [place] [facility] COVID-19 (ID NOW RAPID TESTING) 2020-06-26 03:12:00 Kofi [facility] LAB ONLY COVID INTERPRETATION 2020-06-26 03:12:00 Kofi [facility]be [facility] LIPASE 2020-06-26 02:54:00 Kofi Beebe [facility] COMP. METABOLIC PANEL (64140) 2020-06-26 02:54:00 Kofi [facility] CBC WITH DIFF 2020-06-26 02:54:00 Kofi Beebe [facility] POCT GLUCOSE (AUTOMATED) 2020-06-26 02:44:00 Aysha [facility] CONSENT/REFUSAL FOR DIAGNOSIS AND TREATMENT 2020-06-26 02:29:58 Doctor Unassigned, [place] [facility] EXTERNAL PROVIDER RECORDS 2020-02-09 05:01:00 Do ctor Unassigned, [place] [facility] Encounters Start Date/Time End Date/Time Encounter Type Admission Type Attending Clinicians Care Facility Care Department Encounter ID Source 2021-10-03 16:00:00 Inpatient Chetan Coleman [facility] [id number] [facility] 2021-09-29 17:00:00 Inpatient Chetan Coleman [facility] [id number] [facility] 2021-05-11 17:56:10 Emergency [facility] [id number] [facility] 2021-05-10 17:48:01 Emergency [facility] [id number] [facility] 2021-05-10 11:31:12 Emergency [facility] [id number] [facility] 2024-02-25 00:00:00 2024-04-01 18:24:23 Patient Secure Msg Doctor Unassigned, [place] Doctor Unassigned, [place] [facility] 1.840.114 350.1.13.10 4.2.7.2.686 [id number] [facility] 2024-02-05 00:00:00 2024-03-11 18:23:54 Patient Secure Msg Doctor Unassigned, [place] Doctor Unassigned, [place] [facility] 1.840.114 350.1.13.10 4.2.7.2.686 [id number] [facility] 2024-02-10 00:00:00 2024-02-10 14:49:57 Letter (Out) Briana Hughes [facility] 1.840.114 350.1.13.10 4.2.7.2.686 [id number] [facility] 2024-02-01 00:00:00 2024-02-08 09:28:22 Telephone Cole Guan [facility] 1.840.114 350.1.13.10 4.2.7.2.686 [id number] [facility] 2023-12-13 17:36:00 2023-12-13 21:40:00 Emergency X FORTINO FARRIS [facility] ERT [id number] [facility] 2023-12-13 17:36:00 2023-12-13 21:40:00 Emergency Fortino Farris [facility] 1.114 350.1.13.10 4.2.7.2.686 [id number] [facility] 2021-10-03 16:42:00 2021-10-03 16:42:00 Outpatient [facility] [id number] [facility] 2021-09-29 14:17:00 2021-09-29 14:17:00 Outpatient [facility] [id number] [facility] 2021-09-25 13:47:00 2021-09-25 13:47:00 Outpatient Elective Chetan Coleman [facility] [id number] [facility] 2021-09-25 13:47:00 2021-09-25 13:47:00 Outpatient [facility] [id number] [facility] 2020-11-16 13:16:00 2020-11-16 16:24:00 Emergency Nader Mendoza [facility] 1.114 350.1.13.10 4.2.7.2.686 [id number] [facility] 2020-11-16 00:00:00 2020-11-16 00:00:00 Orders Only Doctor Unassigned, [place] [facility] 1.114 350.1.13.10 4.2.7.2.686 [id number] [facility] 2020-07-28 16:00:00 2020-07-28 17:40:00 Emergency Lillian Barr [facility] 1..114 350.1.13.10 4.2.7.2.686 [id number] [facility] 2020-07-28 00:00:00 2020-07-28 00:00:00 Orders Only Doctor Unassigned, [place] [facility] 1.2.840.114 350.1.13.10 4.2.7.2.686 [id number] [facility] 2020-07-01 00:00:00 2020-07-01 00:00:00 Transition of Care Annita Correa 1.2.840.114 350.1.13.10 4.2.7.2.686 [id number] [facility] 2020-07-01 00:00:00 2020-07-01 00:00:00 Transition of Care Annita Correa 1.2.840.114 350.1.13.10 4.2.7.2.686 [id number] 2020-06-25 20:44:00 2020-06-29 19:29:00 Hospital Encounter Kofi Beebe [facility] 1.2.840.114 350.1.13.10 4.2.7.2.686 [id number] [facility] 2020-06-25 20:44:00 2020-06-29 19:29:00 [facility] 1.2.840.114 350.1.13.10 4.2.7.2.686 [id number] 2020-06-25 00:00:00 2020-06-25 00:00:00 Orders Only Doctor Unassigned, [place] [facility] 1.2.840.114 350.1.13.10 4.2.7.2.686 [id number] [facility] 2020-06-25 00:00:00 2020-06-25 00:00:00 Orders Only Doctor Unassigned, [place] [facility] 1.2840.114 350.1.13.10 4.2.7.2.686 [id number] 2020-02-09 15:04:39 2020-02-09 15:53:06 Telemedici ne Visit Cole Guan [facility] 1.2840.114 350.1.13.10 4.2.7.2.686 [id number] [facility] 2020-02-09 15:04:39 2020-02-09 15:53:06 Telemedici ne Visit Cole Guan [facility] 1.284.114 350.1.13.10 4.2.7.2.686 [id number] 2020-02-09 15:00:00 2020-02-09 15:00:00 Outpatient R GUANTRUMAN GREENIN [facility] [id number] [facility] 2020-02-09 00:00:00 2020-02-09 00:00:00 Orders Only Doctor Unassigned, [place] [facility] 1.2840.114 350.1.13.10 4.2.7.2.686 [id number] [facility] 2020-02-09 00:00:00 2020-02-09 00:00:00 Orders Only Doctor Unassigned, [place] [facility] 1.2840.114 350.1.13.10 4.2.7.2.686 [id number] 2020-02-07 00:00:00 2020-02-07 00:00:00 Telephone GuanTrumanin [facility] 1.2.840.114 350.1.13.10 4.2.7.2.686 [id number] [facility] 2020-02-07 00:00:00 2020-02-07 00:00:00 Telephone Cole Guan [facility] 1.2.840.114 350.1.13.10 4.2.7.2.686 [id number] Results Test Description Test Time Test Comments Results Result Co mments Source [facility] ABDOMEN PELVIS W [id number] 02:18:58HS:Y Indication: Pancreatitis, acute, severe ? Comparison: [...] soft tissue: No acute osseous abnormality is noted.[facility] GLUCOSE (AUTOMATED)2023-12-14 02:09:43* Test Item Value Reference Range Interpretation Comme nts POCT GLU (test code = 6139088005) 406 mg/dL 70-110 H Lab Interpretation (test cod e = 47385-3) Abnormal [facility] GLUCOSE (AUTOMATED)2023-12-14 01:36:46* Test Item Value Reference Range Interpretation Comme nts POCT GLU (test code = 7571064334) 453 mg/dL 70-110 HH Lab Interpretation (test cod e = 15019-6) Abnormal [facility] GLUCOSE (AUTOMATED)2023-12-14 01:21:40* Test Item Value Reference Range Interpretation Comme [facility] POCT GLU (test code = 4074701332) 504 mg/dL 70-110 HH Lab Interpretation (test cod e = 75310-5) [id number] 01:02:25* Test Item Value Reference Range Interpretation Comme nts TROPONIN I (test code = 5486976854) 0.005 ng/mL <=0.034 OSKAR (test code = [...] of biotin. Lab Interpretation (test code = 17806-4) Normal [id number] 00:59:47* Test Item Value Reference Range Interpretation Comme [facility] NT-proBNP (test code = 75525-9) 20 pg/mL <=125 Lab Interpretation (test cod e = 40504-5) Normal [facility] 1 [id number] 00:54:09Ordering physician: FORTINO FARRIS Clinical indication: Dyspnea. Comparison: None Technique: Chest,single view Technical quality: Adequate Findings: The lungs are clear. No pleural effusions are evident. Heart size isnormal. The superior mediastinal silhouette is unremarkable for age andprojection. No acute bony abnormalities are evident.[facility] 00:53:41ALCOHOL<10mg/dL12/13/2023 7:53 PM [facility]10 Gchnjmmk15-630 Toxic>100 Depression of PATTERN MOLDER>400 Fatalities Reported [facility] (25711)2023-12-14 00:53:36* Test Item Value Reference Range Interpretation Comme nts NA (test code = 2644261467) 129 mmol/L 135-145 L K (test code = 2051493925) 4.3 mmol/L 3.5-5.0 CL (test code = 7194315125) 93 mmol/L 98-108 L CO2 TOTAL (test code = 6179770103) 26 mmol/L 23-31 AGAP (test code = 7851543572) 10 2-16 BUN (test code = 5154214684) 25 mg/dL 7-23 H GLUCOSE (test code = 7387786849) 486 mg/dL 70-110 HH CREATININE (test code = 2160-0) 1.22 mg/dL 0.60-1.25 TOTAL BILI (test code = 3589565867) 1.6 mg/dL 0.1-1.1 H CALCIUM (test code = 5886821905) 8.8 mg/dL 8.6-10.6 T PROTEIN (test code = 3312427388) 7.9 g/dL 6.3-8.2 ALBUMIN (test code = 9973314813) 4.4 g/dL 3.5-5.0 ALK PHOS (test code = 5049487378) 78 U/L 34-122 ALTv (test code = 1742-6) 145 U/L 5-50 H AST(SGOT) (test code = 7111654687) 52 U/L 13-40 H eGFR (test code = 37619-9) 75.0 mL/min/1.73m2 CKD-EPI eGFR (2020). Assuming creatinine has been stable day-to-day for at least three months, the eGFR indicates Category G2 (60 - 89 mL/min/1.73 m2) Lab Interpretation (test code = 71599-0) [facility]normal [facility] 00:49:27* Test Item Value Reference Range Interpretation Comme nts LIPASE (test code = 7220541610) 1623 U/L 0-220 H Lab Interpretation (test cod e = 86661-0) Abnormal [facility] [id number] 00:31:25* Test Item Value Reference Range Interpretation [...] g/dL 31.2-35.0 H RDW-SD (test code = 63299-2) 33.1 fL 38.5-51.6 L RDW-CV (test code = 788-0) 11.4 % 12.1-15.4 L PLT (test code = 777-3) 167 150-328 MPV (test code = 72318-9) 10.0 fL 9.8-13.0 NRBC/100 WBC (test code = 5977047321) 0.0 0.0-10.0 NRBC x10^3 (test code = 7158896261) See_Comment [Automated messa ge] The system which generated this result transmitted reference range: 10*3/?L. The reference range was not used to interpret this result as normal/abnormal. GRAN MAT (NEUT) % (test code = 770-8) 63.5 % IMM GRAN % (test code = 5859799445) 0.80 % LYMPH % (test code = 736-9) 27.2 % MONO % (test code = 5905-5) 6.1 % EOS % (test code = 713-8) 1.4 % BASO % (test code = 706-2) 1.0 % GRAN MAT x10^3(ANC) (test code = 8889165877) 3.13 10*3/uL 1.99-6.95 IMM GRAN x10^3 (test code = 4136389909) 0.04 10*3/uL 0.00-0.06 LYMPH x10^3 (test code = 731-0) 1.34 10*3/uL 1.09-3.23 MONO x10^3 (test code = 742-7) 0.30 10*3/uL 0.36-1.02 L EOS x10^3 (test code = 711-2) 0.07 10*3/uL 0.06-0.53 BASO x10^3 (test code = 704-7) 0.05 10*3/uL 0.01-0.09 Lab Interpretation (test code = 19012-1) Abnormal [facility] [id number] 20:01:00* Test Item Value Reference Range Interpretation Comme nts Glucose Fingerstick (test code = WGLUC) 247 mg/dL 70-115 FOREIGN EXCHANGE POSITION CLERK Eug giacomo Lum Glucose [id number] 17:29:00* Test Item Value Reference Range Interpretation Comme nts Glucose Fingerstick (test code = WGLUC) 296 mg/dL 70-115 FOREIGN EXCHANGE POSITION CLERK MADELINE NUNES T Glucose [id number] 14:49:00* Test Item Value Reference Range Interpretation Comme nts Glucose Fingerstick (test code = WGLUC) 334 mg/dL 70-115 FOREIGN EXCHANGE POSITION CLERK And rew Samuel RN or OR MICRO [id number] 16:15:00* Test Item Value Reference Range Interpretation [...] the possible exception of Ceftaroline. LEFT HANDGlucose Ehtzugfhhfs0784-15-84 15:52:00* Test Item Value Reference Range Interpretation Comme nts Glucose Fingerstick (test code = WGLUC) 199 mg/dL 70-115 FOREIGN EXCHANGE POSITION CLERK And rew Svetlik [id number] 19:20:17* Test Item Value Reference Range Interpretation Comme nts APPEARANCE (test code = 9770416632) Clear Clear COLOR (test code = 8074936130) Mindy Yellow A PH (test code = 6396670432) 4.8-8.0 SP GRAVITY (test code = 2162766833) 1.003-1.030 GLU U QUAL (test code = 6677670362) 150 mg/dL Normal A BLOOD (test code = 8639837992) Negative Negative KETONES (test code = 7376016495) Negative Negative PROTEIN (test code = 2887-8) Negative Negative UROBILIN (test code = 9455527619) Normal Normal BILIRUBIN (test code = 7891082497) Negative Negative NITRITE (test code = 2683774291) Negative Negative LEUK BURTON (test code = 6174908154) Negative Negative RBC/HPF (test code = 6733768657) See_Comment [Automated [place] ge] The system which generated this result transmitted reference range: 0 - 3 HPF. The reference range was not used to interpret this result as normal/abnormal. WBC/HPF (test code = 7398978147) See_Comment [Automated [place] ge] The system which generated this result transmitted reference range: 0 - 5 HPF. The reference range was not used to interpret this result as normal/abnormal. BACTERIA (test code = 8589230157) Negative Negative MUCOUS (test code = 2111179789) Moderate Negative LPF A Lab Interpretation (test code = 67454-4) [facility]* Test Item Value Reference Range Interpretation Comme nts MAGNESIUM (test code = 2955312710) 1.9 mg/dL 1.7-2.4 Lab Interpretation (test cod e = 74480-4) [facility] (14498[facility]2020-11-16 19:17:44* Test Item Value Reference Range Interpretation Comme nts NA (test code = 2116980863) 138 mmol/L 135-145 K (test code = 2176932775) 3.9 mmol/L 3.5-5.0 CL (test code = 9686377201) 100 mmol/L 98-108 CO2 TOTAL (test code = 3634673388) 28 mmol/L 23-31 AGAP (test code = 9768677337) 2-16 BUN (test code = 5298500472) 15 mg/dL 7-23 GLUCOSE (test code = 2244035996) 215 mg/dL 70-110 H CREATININE (test code = 9148859497) 0.88 mg/dL 0.60-1.25 TOTAL BILI (test code = 4001986225) 1.6 mg/dL 0.1-1.1 H CALCIUM (test code = 3317558545) 9.6 mg/dL 8.6-10.6 T PROTEIN (test code = 0922896302) 7.4 g/dL 6.3-8.2 ALBUMIN (test code = 5052834459) 4.6 g/dL 3.5-5.0 ALK PHOS (test code = 8203708599) 90 U/L 34-122 ALTv (test code = 1742-6) 15 U/L 5-50 AST(SGOT) (test code = 0589141201) 17 U/L 13-40 eGFR (test code = 2144595383) mL/min/1.73m2 OSKAR (test code = OSKAR) Association [...] imaging tests). Lab Interpretation (test code = 05104-3) [facility]* Test Item Value Reference Range Interpretation Comme nts LIPASE (test code = 4798225393) 87 U/L 0-220 Lab Interpretation (test cod e = 76596-3) [facility] [id number] 19:06:43* Test Item Value Reference Range Interpretation [...] 33.6 g/dL 31.2-35.0 RDW-SD (test code = 27383-5) 39.0 fL 38.5-51.6 RDW-CV (test code = 788-0) 13.9 % 12.1-15.4 PLT (test code = 777-3) See_Comment [Automated messa ge] The system which generated this result transmitted reference range: 150 - 328 10*3/?L. The reference range was not used to interpret this result as normal/abnormal. MPV (test code = 90959-3) 9.4 fL 9.8-13.0 L NRBC/100 WBC (test code = 4129577424) See_Comment [Automated [employer] ssage] The system which generated this result transmitted reference range: 0.0 - 10.0 /100 WBCs. The reference range was not used to interpret this result as normal/abnormal. NRBC x10^3 (test code = 7078698876) <0.01 See_Comment [Automated messa ge] The system which generated this result transmitted reference range: 10*3/?L. The reference range was not used to interpret this result as normal/abnormal. GRAN MAT (NEUT) % (test code = 770-8) 79.9 % IMM GRAN % (test code = 4070404989) 0.60 % LYMPH % (test code = 736-9) 14.4 % MONO % (test code = 5905-5) 3.9 % EOS % (test code = 713-8) 0.6 % BASO % (test code = 706-2) 0.6 % GRAN MAT x10^3(ANC) (test code = 8410875246) 7.25 10*3/uL 1.99-6.95 H IMM GRAN x10^3 (test code = 1832751384) 0.05 10*3/uL 0.00-0.06 LYMPH x10^3 (test code = 731-0) 1.30 10*3/uL 1.09-3.23 MONO x10^3 (test code = 742-7) 0.35 10*3/uL 0.36-1.02 L EOS x10^3 (test code = 711-2) 0.05 10*3/uL 0.06-0.53 L BASO x10^3 (test code = 704-7) 0.05 10*3/uL 0.01-0.09 Lab Interpretation (test code = 20678-5) Abnormal [facility] GLUCOSE (AUTOMATED)2020-11-16 18:27:21* Test Item Value Reference Range Interpretation Comme nts POCT GLU (test code = 9479270402) 218 mg/dL 70-110 H Lab Interpretation (test cod e = 66330-9) Abnormal [facility] GLUCOSE (AUTOMATED)2020-06-29 23:37:00* Test Item Value Reference Range Interpretation Comme nts POCT GLU (test code = 8925753409) 217 mg/dL 70-110 H Lab Interpretation (test cod e = 99769-3) Abnormal [facility] GLUCOSE (AUTOMATED)2020-06-29 18:58:00* Test Item Value Reference Range Interpretation Comme nts POCT GLU (test code = 0852635149) 214 mg/dL 70-110 H Lab Interpretation (test cod e = 17912-7) Abnormal [facility] GLUCOSE (AUTOMATED)2020-06-29 14:15:00* Test Item Value Reference Range Interpretation Comme nts POCT GLU (test code = 9718032817) 182 mg/dL 70-110 H Lab Interpretation (test cod e = 50688-5) Abnormal [facility] with Oyezrpfivhey1891-27-65 13:44:00* Test Item Value Reference Range Interpretation [...] 34.7 g/dL 31.2-35 RDW-SD (test code = 23119-5) 37.0 fL 38.5-51.6 L RDW-CV (test code = 788-0) 12.2 % 12.1-15.4 PLT (test code = 777-3) See_Comment L [Automated messa ge] The system which generated this result transmitted reference range: 150 - 328 10*3/?L. The reference range was not used to interpret this result as normal/abnormal. MPV (test code = 35893-6) 9.9 fL 9.8-13 NRBC/100 WBC (test code = 6254862960) See_Comment [Automated me ssage] The system which generated this result transmitted reference range: 0.0 - 10.0 /100 WBCs. The reference range was not used to interpret this result as normal/abnormal. NRBC x10^3 (test code = 4910864175) <0.01 See_Comment [Automated messa ge] The system which generated this result transmitted reference range: 10*3/?L. The reference range was not used to interpret this result as normal/abnormal. GRAN MAT (NEUT) % (test code = 770-8) 61.0 % IMM GRAN % (test code = 0854011146) 0.30 % LYMPH % (test code = 736-9) 29.5 % MONO % (test code = 5905-5) 5.9 % EOS % (test code = 713-8) 2.4 % BASO % (test code = 706-2) 0.9 % GRAN MAT x10^3(ANC) (test code = 2605773000) 2.07 10*3/uL 1.99-6.95 IMM GRAN x10^3 (test code = 5553327424) <0.03 0-0.06 LYMPH x10^3 (test code = 731-0) 1.00 10*3/uL 1.09-3.23 L MONO x10^3 (test code = 742-7) 0.20 10*3/uL 0.36-1.02 L EOS x10^3 (test code = 711-2) 0.08 10*3/uL 0.06-0.53 BASO x10^3 (test code = 704-7) 0.03 10*3/uL 0.01-0.09 Lab Interpretation (test code = 02712-6) [facility] 13:22:00* Test Item Value Reference Range Interpretation Comme nts TRIG (test code = 8347240000) 468 mg/dL 30-170 H Lab Interpretation (test cod e = 64085-4) [facility] (NA, K, CL, CO2, GLUCOSE, BUN, CREATININE, CA)2020-06-29 13:12:00* Test Item Value Reference Range Interpretation Comme nts NA (test code = 9616371503) 139 mmol/L 135-145 K (test code = 8288239493) 3.6 mmol/L 3.5-5 CL (test code = 6085891415) 104 mmol/L 98-108 CO2 TOTAL (test code = 5488168406) 25 mmol/L 23-31 AGAP (test code = 8090802646) 2-16 BUN (test code = 0923313922) 4 mg/dL 7-23 L GLUCOSE (test code = 2568992001) 163 mg/dL 70-110 H CREATININE (test code = 6526437425) 0.74 mg/dL 0.6-1.25 CALCIUM (test code = 7356360781) 9.4 mg/dL 8.6-10.6 eGFR Calculation (Non-) (test code = 7681775614) mL/min/1.73m2 eGFR Calculation () (test code = 3774868101) mL/min/1.73m2 OSKAR (test code = OSKAR) Association [...] imaging tests). Lab Interpretation (test code = 49464-5) Abnormal [facility] / [facility] - DRUG SCREEN AWBARL2236-31-48 03:44:00* Test Item Value Reference Range Interpretation Comme nts BENZO U (test code = 0838503727) Presumptive Positive Negative A AUDREY U (test code = 3396665112) Negative Negative AMPHET (test code = 0300426418) Negative Negative THC (test code = 7498864489) Presumptive Positive Negative A Confirmation of Presumptive Positive THC result requires physician order. METHADONE (test code = 7868326736) Negative Negative Meth U (test code = 3700388539) Negative Negative OPIATES (test code = 7176145117) Presumptive Positive Negative A Cocaine Metabolite (test code = 1766330611) Negative Negative PROPOXY (test code = 9219512729) Negative Negative Tric U (test code = 6536212868) Presumptive Positive Negative A Confirmation of Presumptive Positive TCA result requires physician order and this will be sent to reference lab. PCP (test code = 3783666309) Negative Negative OXYCOD (test code = 3644572105) Negative Negative OSKAR (test code = OSKAR) [...] legal testing). Lab Interpretation (test code = 99245-0) [facility]normal [facility] 01:23:00* Test Item Value Reference Range Interpretation Comme nts ALCOHOL (test code = 6781872249) <10 mg/dL OSKAR (test code = OSKAR) <10 [id number] Toxic>100 Depression of PATTERN MOLDER>400 Fatalities [facility]orted [facility]2020-[facility]28 23:30:00* Test Item Value Reference Range Interpretation Comme nts POCT GLU (test code = 5187316800) 234 mg/dL 70-110 H Lab Interpretation (test cod e = 24303-6) Abnormal [facility] GLUCOSE (AUTOMATED)2020-06-28 19:09:00* Test Item Value Reference Range Interpretation Comme nts POCT GLU (test code = 9295101248) 195 mg/dL 70-110 H Lab Interpretation (test cod e = 63237-1) Abnormal [facility] GLUCOSE (AUTOMATED)2020-06-28 18:16:00* Test Item Value Reference Range Interpretation Comme nts POCT GLU (test code = 5948280792) 113 mg/dL 70-110 H Lab Interpretation (test cod e = 39627-0) [facility] 15:54:00* Test Item Value Reference Range Interpretation Comme nts MAGNESIUM (test code = 8156323040) 1.7 mg/dL 1.7-2.4 Lab Interpretation (test cod e = 00796-4) Normal [facility] GLUCOSE (AUTOMATED)2020-06-28 14:51:00* Test Item Value Reference Range Interpretation Comme nts POCT GLU (test code = 3064142281) 94 mg/dL 70-110 Lab Interpretation (test cod e = 37904-2) Normal [facility] with Zxsjnfgojjcq4757-05-94 14:08:00* Test Item Value Reference Range Interpretation [...] 34.7 g/dL 31.2-35 RDW-SD (test code = 05695-7) 36.2 fL 38.5-51.6 L RDW-CV (test code = 788-0) 11.9 % 12.1-15.4 L PLT (test code = 777-3) See_Comment L [Automated messa ge] The system which generated this result transmitted reference range: 150 - 328 10*3/?L. The reference range was not used to interpret this result as normal/abnormal. MPV (test code = 00524-5) 10.0 fL 9.8-13 NRBC/100 WBC (test code = 8895362032) See_Comment [Automated [employer] ssage] The system which generated this result transmitted reference range: 0.0 - 10.0 /100 WBCs. The reference range was not used to interpret this result as normal/abnormal. NRBC x10^3 (test code = 4901477121) <0.01 See_Comment [Automated messa ge] The system which generated this result transmitted reference range: 10*3/?L. The reference range was not used to interpret this result as normal/abnormal. GRAN MAT (NEUT) % (test code = 770-8) 59.7 % IMM GRAN % (test code = 9862300211) 0.30 % LYMPH % (test code = 736-9) 33.3 % MONO % (test code = 5905-5) 4.8 % EOS % (test code = 713-8) 1.3 % BASO % (test code = 706-2) 0.6 % GRAN MAT x10^3(ANC) (test code = 3134491721) 1.86 10*3/uL 1.99-6.95 L IMM GRAN x10^3 (test code = 3317163281) <0.03 0-0.06 LYMPH x10^3 (test code = 731-0) 1.04 10*3/uL 1.09-3.23 L MONO x10^3 (test code = 742-7) 0.15 10*3/uL 0.36-1.02 L EOS x10^3 (test code = 711-2) 0.04 10*3/uL 0.06-0.53 L BASO x10^3 (test code = 704-7) <0.03 0.01-0.09 Lab Interpretation (test code = 06178-9) Abnormal [facility] Metabolic Panel (NA, K, CL, CO2, GLUCOSE, BUN, CREATININE, CA)2020-06-28 13:02:00* Test Item Value Reference Range Interpretation Comme nts NA (test code = 2833111356) 140 mmol/L 135-145 K (test code = 7299861190) 3.0 mmol/L 3.5-5 L CL (test code = 5624476845) 106 mmol/L 98-108 CO2 TOTAL (test code = 5055253341) 25 mmol/L 23-31 AGAP (test code = 0042999805) 2-16 BUN (test code = 3741773066) <2 7-23 L GLUCOSE (test code = 1136149485) 107 mg/dL 70-110 CREATININE (test code = 0566682754) 0.59 mg/dL 0.6-1.25 L CALCIUM (test code = 6570694373) 8.9 mg/dL 8.6-10.6 eGFR Calculation (Non-) (test code = 3409216985) mL/min/1.73m2 eGFR Calculation () (test code = 5625846369) mL/min/1.73m2 OSKAR (test code = OSKAR) Association [...] imaging tests). Lab Interpretation (test code = 85486-7) [facility]normal [facility] 13:02:00* Test Item Value Reference Range Interpretation Comme nts TRIG (test code = 6623384167) 519 mg/dL 30-170 H Lab Interpretation (test cod e = 07835-9) [facility]normal [facility] 12:45:00* Test Item Value Reference Range Interpretation Comme nts LIPASE (test code = 7704836008) 27 U/L 0-220 Lab Interpretation (test cod e = 42990-8) [facility]2020-06-28 11:51:00* Test Item Value Reference Range Interpretation Comme nts POCT GLU (test code = 2134722087) 111 mg/dL 70-110 H Lab Interpretation (test cod e = 66089-6) [facility]normal [facility] COVID [id number] 11:31:00COVID DMT InterpretationInterpretation/Recommendations: Molecular NAAT Tests for [...] all COVID-19 testingthe patient has had at [facility], including molecular NAAT testing (more commonly known as PCR testing and Rapid ID Now testing) and antibody testing. It does not take into account any testing that a patient has had outside of the [facility] medical record. [facility] LABORATORY SERVICESCOVID [id number]-6 Rapid ID NOW (no units) ? ? Date ? Value ? 06/25/2020 ? Not Detected ? [facility]2020-06-28 10:16:00* Test Item Value Reference Range Interpretation Comme nts POCT GLU (test code = 0366980113) 109 mg/dL 70-110 Lab Interpretation (test cod e = 55339-1) Normal [facility] GLUCOSE (AUTOMATED)2020-06-28 09:08:00* Test Item Value Reference Range Interpretation Comme nts POCT GLU (test code = 0097656374) 152 mg/dL 70-110 H Lab Interpretation (test cod e = 80918-9) Abnormal [facility] GLUCOSE (AUTOMATED)2020-06-28 06:20:00* Test Item Value Reference Range Interpretation Comme nts POCT GLU (test code = 9848676696) 84 mg/dL 70-110 Lab Interpretation (test cod e = 33293-1) Normal [facility] GLUCOSE (AUTOMATED)2020-06-28 04:47:00* Test Item Value Reference Range Interpretation Comme nts POCT GLU (test code = 2740320580) 95 mg/dL 70-110 Lab Interpretation (test cod e = 00281-7) Normal [facility] GLUCOSE (AUTOMATED)2020-06-28 03:43:00* Test Item Value Reference Range Interpretation Comme nts POCT GLU (test code = 8044611320) 123 mg/dL 70-110 H Lab Interpretation (test cod e = 90430-3) Abnormal [facility] GLUCOSE (AUTOMATED)2020-06-28 02:47:00* Test Item Value Reference Range Interpretation Comme nts POCT GLU (test code = 7771346523) 121 mg/dL 70-110 H Lab Interpretation (test cod e = 89890-0) Abnormal [facility] GLUCOSE (AUTOMATED)2020-06-28 02:17:00* Test Item Value Reference Range Interpretation Comme nts POCT GLU (test code = 5812323080) 94 mg/dL 70-110 Lab Interpretation (test cod e = 73249-6) Normal [facility] 01:21:00* Test Item Value Reference Range Interpretation Comme nts TRIG (test code = 1720685668) 647 mg/dL 30-170 H Lab Interpretation (test cod e = 06864-9) Abnormal [facility] GLUCOSE (AUTOMATED)2020-06-27 23:29:00* Test Item Value Reference Range Interpretation Comme nts POCT GLU (test code = 3065816307) 87 mg/dL 70-110 Lab Interpretation (test cod e = 29437-9) Normal [facility] GLUCOSE (AUTOMATED)2020-06-27 21:36:00* Test Item Value Reference Range Interpretation Comme nts POCT GLU (test code = 2434688085) 85 mg/dL 70-110 Lab Interpretation (test cod e = 55669-6) Normal [facility] GLUCOSE (AUTOMATED)2020-06-27 19:55:00* Test Item Value Reference Range Interpretation Comme nts POCT GLU (test code = 0435715199) 91 mg/dL 70-110 Lab Interpretation (test cod e = 25647-6) Normal [facility] GLUCOSE (AUTOMATED)2020-06-27 19:01:00* Test Item Value Reference Range Interpretation Comme nts POCT GLU (test code = 1121195037) 125 mg/dL 70-110 H Lab Interpretation (test cod e = 05971-3) Abnormal [facility] GLUCOSE (AUTOMATED)2020-06-27 17:46:00* Test Item Value Reference Range Interpretation Comme nts POCT GLU (test code = 2616412311) 122 mg/dL 70-110 H Lab Interpretation (test cod e = 13937-8) Abnormal [facility] GLUCOSE (AUTOMATED)2020-06-27 16:56:00* Test Item Value Reference Range Interpretation Comme nts POCT GLU (test code = 0847531027) 98 mg/dL 70-110 Lab Interpretation (test cod e = 35203-1) Normal [facility] GLUCOSE (AUTOMATED)2020-06-27 14:47:00* Test Item Value Reference Range Interpretation Comme nts POCT GLU (test code = 1505364548) 209 mg/dL 70-110 H Lab Interpretation (test cod e = 80951-4) Abnormal [facility] GLUCOSE (AUTOMATED)2020-06-27 14:47:00* Test Item Value Reference Range Interpretation Comme nts POCT GLU (test code = 2019206223) 181 mg/dL 70-110 H Lab Interpretation (test cod e = 42861-4) Abnormal [facility] with Gvzaiuzpbsma0453-70-13 12:55:00* Test Item Value Reference Range Interpretation [...] 35.0 g/dL 31.2-35 RDW-SD (test code = 90498-6) 35.6 fL 38.5-51.6 L RDW-CV (test code = 788-0) 11.8 % 12.1-15.4 L PLT (test code = 777-3) See_Comment L [Automated messa ge] The system which generated this result transmitted reference range: 150 - 328 10*3/?L. The reference range was not used to interpret this result as normal/abnormal. MPV (test code = 69256-5) 9.9 fL 9.8-13 NRBC/100 WBC (test code = 3071485961) See_Comment [Automated [employer] ssage] The system which generated this result transmitted reference range: 0.0 - 10.0 /100 WBCs. The reference range was not used to interpret this result as normal/abnormal. NRBC x10^3 (test code = 4858242922) <0.01 See_Comment [Automated messa ge] The system which generated this result transmitted reference range: 10*3/?L. The reference range was not used to interpret this result as normal/abnormal. GRAN MAT (NEUT) % (test code = 770-8) 59.3 % IMM GRAN % (test code = 4023093943) 0.30 % LYMPH % (test code = 736-9) 33.7 % MONO % (test code = 5905-5) 4.7 % EOS % (test code = 713-8) 1.3 % BASO % (test code = 706-2) 0.7 % GRAN MAT x10^3(ANC) (test code = 6395057020) 1.78 10*3/uL 1.99-6.95 L IMM GRAN x10^3 (test code = 3808176046) <0.03 0-0.06 LYMPH x10^3 (test code = 731-0) 1.01 10*3/uL 1.09-3.23 L MONO x10^3 (test code = 742-7) 0.14 10*3/uL 0.36-1.02 L EOS x10^3 (test code = 711-2) 0.04 10*3/uL 0.06-0.53 L BASO x10^3 (test code = 704-7) <0.03 0.01-0.09 Lab Interpretation (test code = 78885-9) Abnormal [facility] GLUCOSE (AUTOMATED)2020-06-27 12:26:00* Test Item Value Reference Range Interpretation Comme nts POCT GLU (test code = 2327400786) 238 mg/dL 70-110 H Lab Interpretation (test cod e = 82885-9) Abnormal [facility] GLUCOSE (AUTOMATED)2020-06-27 12:20:00* Test Item Value Reference Range Interpretation Comme nts POCT GLU (test code = 1540851806) 216 mg/dL 70-110 H Lab Interpretation (test cod e = 51554-1) [facility]normal [facility] 12:03:00* Test Item Value Reference Range Interpretation Comme nts TRIG (test code = 0327732872) 810 mg/dL 30-170 H Lab Interpretation (test cod e = 08346-5) Abnormal [facility] Metabolic Panel (NA, K, CL, CO2, GLUCOSE, BUN, CREATININE, CA)2020-06-27 11:56:00* Test Item Value Reference Range Interpretation Comme nts NA (test code = 8615204652) 135 mmol/L 135-145 K (test code = 6473411766) 3.6 mmol/L 3.5-5 CL (test code = 2562079931) 104 mmol/L 98-108 CO2 TOTAL (test code = 3085346774) 23 mmol/L 23-31 AGAP (test code = 9045707609) 2-16 BUN (test code = 6511814633) 5 mg/dL 7-23 L GLUCOSE (test code = 3822194402) 191 mg/dL 70-110 H CREATININE (test code = 4135758022) 0.56 mg/dL 0.6-1.25 L CALCIUM (test code = 4704075959) 8.9 mg/dL 8.6-10.6 eGFR Calculation (Non-) (test code = 8001974092) mL/min/1.73m2 eGFR Calculation () (test code = 9164127245) mL/min/1.73m2 OSKAR (test code = OSKAR) Association [...] imaging tests). Lab Interpretation (test code = 73262-8) [facility] 11:55:00* Test Item Value Reference Range Interpretation Comme [facility] LIPASE (test code = 8614403075) 40 U/L 0-220 Lab Interpretation (test cod e = 24350-9) [facility]2020-06-27 09:09:00* Test Item Value Reference Range Interpretation Comme [facility] POCT GLU (test code = 4506444890) 185 mg/dL 70-110 H Lab Interpretation (test cod e = 68686-7) Abnormal [facility] GLUCOSE (AUTOMATED)2020-06-27 08:09:00* Test Item Value Reference Range Interpretation Comme nts POCT GLU (test code = 9137369832) 124 mg/dL 70-110 H Lab Interpretation (test cod e = 51499-0) Abnormal [facility] GLUCOSE (AUTOMATED)2020-06-27 07:11:00* Test Item Value Reference Range Interpretation Comme nts POCT GLU (test code = 4313832265) 104 mg/dL 70-110 Lab Interpretation (test cod e = 10316-7) Normal [facility] GLUCOSE (AUTOMATED)2020-06-27 06:04:00* Test Item Value Reference Range Interpretation Comme nts POCT GLU (test code = 3519586974) 97 mg/dL 70-110 Lab Interpretation (test cod e = 12810-4) Normal [facility] GLUCOSE (AUTOMATED)2020-06-27 04:54:00* Test Item Value Reference Range Interpretation Comme nts POCT GLU (test code = 0208774245) 54 mg/dL 70-110 L Lab Interpretation (test cod e = 44211-7) Abnormal [facility] GLUCOSE (AUTOMATED)2020-06-27 04:04:00* Test Item Value Reference Range Interpretation Comme nts POCT GLU (test code = 8391458541) 88 mg/dL 70-110 Lab Interpretation (test cod e = 64582-1) Normal [facility] GLUCOSE (AUTOMATED)2020-06-27 03:32:00* Test Item Value Reference Range Interpretation Comme nts POCT GLU (test code = 9104524021) 104 mg/dL 70-110 Lab Interpretation (test cod e = 22445-9) Normal [facility] GLUCOSE (AUTOMATED)2020-06-27 03:05:00* Test Item Value Reference Range Interpretation Comme nts POCT GLU (test code = 2423363097) 68 mg/dL 70-110 L Lab Interpretation (test cod e = 88682-3) Abnormal [facility] GLUCOSE (AUTOMATED)2020-06-27 02:05:00* Test Item Value Reference Range Interpretation Comme nts POCT GLU (test code = 9581832655) 113 mg/dL 70-110 H Lab Interpretation (test cod e = 55921-2) Abnormal [facility] GLUCOSE (AUTOMATED)2020-06-27 01:21:00* Test Item Value Reference Range Interpretation Comme nts POCT GLU (test code = 0663615689) 122 mg/dL 70-110 H Lab Interpretation (test cod e = 05714-5) Abnormal [facility] GLUCOSE (AUTOMATED)2020-06-27 00:09:00* Test Item Value Reference Range Interpretation Comme nts POCT GLU (test code = 9323706088) 125 mg/dL 70-110 H Lab Interpretation (test cod e = 06953-0) [facility] 23:47:00* Test Item Value Reference Range Interpretation Comme nts TRIG (test code = 1447022358) 1086 mg/dL 30-170 H Lab Interpretation (test cod e = 87900-9) Abnormal [facility] GLUCOSE (AUTOMATED)2020-06-26 23:12:00* Test Item Value Reference Range Interpretation Comme nts POCT GLU (test code = 7982629077) 175 mg/dL 70-110 H Lab Interpretation (test cod e = 55341-8) Abnormal [facility] GLUCOSE (AUTOMATED)2020-06-26 23:12:00* Test Item Value Reference Range Interpretation Comme nts POCT GLU (test code = 1196907507) 81 mg/dL 70-110 Lab Interpretation (test cod e = 63613-9) Normal [facility] GLUCOSE (AUTOMATED)2020-06-26 22:50:00* Test Item Value Reference Range Interpretation Comme nts POCT GLU (test code = 7252030830) 88 mg/dL 70-110 Lab Interpretation (test cod e = 46048-6) Normal [facility] GLUCOSE (AUTOMATED)2020-06-26 22:26:00* Test Item Value Reference Range Interpretation Comme nts POCT GLU (test code = 0658443042) 91 mg/dL 70-110 Lab Interpretation (test cod e = 65728-0) Normal [facility] GLUCOSE (AUTOMATED)2020-06-26 17:06:00* Test Item Value Reference Range Interpretation Comme nts POCT GLU (test code = 1119567461) 227 mg/dL 70-110 H Lab Interpretation (test cod e = 18747-5) [facility] [id number] 16:31:00* Test Item Value Reference Range Interpretation Comme nts dLDL Chol (test code = 28376-0) <30 See_Comment [Automated [place] [employer]] The system which generated this result transmitted reference range: <130 mg/dL. The reference range was not used to interpret this result as normal/abnormal. Lab Interpretation (test code = 38497-2) Normal [facility] (38957)(TOTAL CHOLESTEROL, TRIGLYCERIDES, HDL)2020-06-26 13:16:00* Test Item Value Reference Range Interpretation Comme nts CHOL (test code = 8462427845) 217 mg/dL 120-200 H HDL (test code = 3858352219) 13 mg/dL >40 L HDLC RATIO (test code = 0642233870) See_Comment H [Automated [place] [employer]] The system which generated this result transmitted reference range: <=5.0. The reference range was not used to interpret this result as normal/abnormal. TRIG (test code = 5505050371) 1337 mg/dL 30-170 H LDL CHOL (test code = 29444-2) Unable to calcul ate LDL due to elevated triglyceride level greater than 400 mg/dL. VLDL (test code = 8363646032) Unable to calcul ate VLDL due to elevated triglyceride level greater than 710 mg/dL. Lab Interpretation (test code = 95077-4) [facility] 13:03:00* Test Item Value Reference Range Interpretation Comme nts LIPASE (test code = 6920876843) 60 U/L 0-220 Lab Interpretation (test cod e = 86284-1) Normal [facility]GLOB[facility] (A1C)2020-06-26 12:46:00* Test Item Value Reference Range Interpretation Comme nts HGB A1C (test code = 4548-4) 9.2 % 4-6 H OSKAR (test code = OSKAR) %A1C (NGSP) Interpretation (ADA)4.8-5.6 ? ? Normal or (Non-Diabetic Range)5.7-6.4 ? ? Increased Risk (Pre-Diabetic)>6.5 ?Diabetes Indicated Lab Interpretation (test code = 67498-9) [facility]2020-06-26 11:24:00* Test Item Value Reference Range Interpretation Comme nts POCT GLU (test code = 0903029317) 209 mg/dL 70-110 H Lab Interpretation (test cod e = 01625-8) [facility] W [id number] 05:55:56Impression: 1. Peripancreatic inflammation, likely representing acute [...] demonstrated in the upper abdomen. RL: 2824AFC: 69553 End of Report Exam: CT Abdomen and [...] demonstrated in the upper abdomen. RL: 2824AFC: 47149Dde of Report [facility] RAPID TESTING)2020-06-26 03:44:00* Test Item Value Reference Range Interpretation Comme nts SARS-CoV-2 Rapid ID NOW (test code = 15232-1) Not Detected Not Detected OSKAR (test code = OSKAR) ID NOW COVID-19 As say is an isothermal nucleic acid amplification test intended for the qualitative detection of nucleic acid from SARS-CoV-2 viral RNA in nasopharyngeal ([employer]) specimens. It is used under Emergency Use [...] clinically indicated. Lab Interpretation (test code = 22377-9) Normal [facility]OL[facility] PAN[facility] (63953)2020-06-26 03:17:00* Test Item Value Reference Range Interpretation Comme nts NA (test code = 9259543017) 136 mmol/L 135-145 K (test code = 8252409345) 4.3 mmol/L 3.5-5 CL (test code = 9020846058) 97 mmol/L 98-108 L CO2 TOTAL (test code = 5278396783) 31 mmol/L 23-31 AGAP (test code = 9965039439) 2-16 BUN (test code = 3137305389) 7 mg/dL 7-23 GLUCOSE (test code = 3964579539) 220 mg/dL 70-110 H CREATININE (test code = 4120817704) 0.68 mg/dL 0.6-1.25 TOTAL BILI (test code = 9827736431) 1.6 mg/dL 0.1-1.1 H CALCIUM (test code = 6255730791) 9.4 mg/dL 8.6-10.6 T PROTEIN (test code = 8177457564) 7.6 g/dL 6.3-8.2 ALBUMIN (test code = 0398307143) 4.4 g/dL 3.5-5 ALK PHOS (test code = 1224538461) 103 U/L 34-122 ALTv (test code = 1742-6) 113 U/L 5-50 H AST(SGOT) (test code = 2447124946) 87 U/L 13-40 H eGFR Calculation (Non-) (test code = 7893537045) mL/min/1.73m2 eGFR Calculation () (test code = 6132302591) mL/min/1.73m2 OSKAR (test code = OSKAR) Association [...] imaging tests). Lab Interpretation (test code = 47611-6) Abnormal [facility]2020-[facility] 03:16:00* Test Item Value Reference Range Interpretation Comme nts LIPASE (test code = 8711884065) 57 U/L 0-220 Lab Interpretation (test cod e = 50504-5) Normal [facility] WITH [id number] 03:00:00* Test Item Value Reference Range Interpretation Comme nts WBC (test code = 6690-2) See_Comment [Automated [place]] The system which generated this result transmitted reference range: 4.20 - 10.70 10*3/?L. The reference range was not used to interpret this result as normal/abnormal. RBC (test code = 789-8) See_Comment [Automated [place] [employer]] The system which generated this result transmitted [...] g/dL 31.2-35 H RDW-SD (test code = 29886-5) 35.3 fL 38.5-51.6 L RDW-CV (test code = 788-0) 11.9 % 12.1-15.4 L PLT (test code = 777-3) See_Comment L [Automated messa ge] The system which generated this result transmitted reference range: 150 - 328 10*3/?L. The reference range was not used to interpret this result as normal/abnormal. MPV (test code = 12903-0) 9.3 fL 9.8-13 L NRBC/100 WBC (test code = 2552391360) See_Comment [Automated [employer]] The system which generated this result transmitted reference range: 0.0 - 10.0 /100 WBCs. The reference range was not used to interpret this result as normal/abnormal. NRBC x10^3 (test code = 9753131573) <0.01 See_Comment [Automated messa ge] The system which generated this result transmitted reference range: 10*3/?L. The reference range was not used to interpret this result as normal/abnormal. GRAN MAT (NEUT) % (test code = 770-8) 74.6 % IMM GRAN % (test code = 2928714684) 0.30 % LYMPH % (test code = 736-9) 18.7 % MONO % (test code = 5905-5) 4.8 % EOS % (test code = 713-8) 1.1 % BASO % (test code = 706-2) 0.5 % GRAN MAT x10^3(ANC) (test code = 8699628444) 4.71 10*3/uL 1.99-6.95 IMM GRAN x10^3 (test code = 4109794812) <0.03 0-0.06 LYMPH x10^3 (test code = 731-0) 1.18 10*3/uL 1.09-3.23 MONO x10^3 (test code = 742-7) 0.30 10*3/uL 0.36-1.02 L EOS x10^3 (test code = 711-2) 0.07 10*3/uL 0.06-0.53 BASO x10^3 (test code = 704-7) 0.03 10*3/uL 0.01-0.09 Lab Interpretation (test code = 15991-4) [facility]2020-06-26 02:46:00* Test Item Value Reference Range Interpretation Comme nts POCT GLU (test code = 0534363291) 248 mg/dL 70-110 H Lab Interpretation (test cod e = 59677-9) [facility]
[2024-06-27] MEDS ORDERED: ONDANSETRON 4 MG/2 ML VIAL ONE (15:53)
[2024-06-27] MEDS ORDERED: MORPHINE 4 MG/ML SYR ONE ×2 (15:53→17:34)
[2024-06-27 16:01] LABS: Absolute Basophils 0.1 K/uL (0-0.5); Absolute Eosinophils 0.1 K/uL (0-0.5); Absolute Lymphocytes (CBC) 1.3 K/uL (0.7-4.9); Absolute Monocytes 0.2 K/uL (0.1-1.3); Eosinophils % 1.3 % (0-4.4); Hematocrit 37.4 % (39.6-49.0); Hemoglobin 14.3 g/dL (13.6-17.9); Lymphocytes % 22.8 % (15.3-44.8); MCH 32.2 pg (27.0-35.0); MCHC 38.2 g/dL (32.0-36.0); MCV 84.3 fL (80-100); MPV 7.9 fL (7.6-11.3); Neutrophils % 70.9 % (41.7-73.7); Nucleated Red Blood Cells % 0.1 % (0-0); Platelets 160 thou/uL (152-406); RBC Red Blood Cell Count 4.44 M/uL (4.33-5.43); Red Cell Distribution Width 12.9 % (12.1-15.2)
[2024-06-27 17:03] LABS: Albumin 4.1 g/dL (3.4-5.0); Albumin/Globulin Ratio 1.2 (1.1-1.8); Anion Gap 9.3 mEq/L (5.0-15.0); Bilirubin Total 1.1 mg/dL (0.2-1.0); Globulin 3.4 g/dL (2.3-3.5); Protein, Total 7.5 g/dL (6.4-8.2)
[2024-06-27 17:04] LABS: Potassium 4.3 mEq/L (3.5-5.1)
--- NOTE | 2024-06-27 18:19 | RAD REPORT ---
EXAMINATION: CT ABDOMEN AND PELVIS WITH CONTRAST CLINICAL INDICATION: Abdominal pain TECHNIQUE: CT abdomen and pelvis was performed, after the administration of 100 cc Isovue-300.. Sagit chino and coronal reconstructions were obtained. One or more of the following dose reduction techniques were used: Automated exposure control, adjustment of the mA and kV according to patient si ze, and iterative reconstruction. Unless otherwise specified, incidental findings do not require dedicated imaging follow-up. [id number]. Oral contrast was not given which limits evaluation of bowel and appendix. COMPARISON: .May 2024 and 2018 FINDINGS: 3.5 cm cystic mass pancreatic tail. 2019 and measured 4.3 cm. Remainder of the pancreas unremarkable Spleen measures 16 cm. 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 Left and caudate lobes of the liver are mildly prominent. Portal vein is patent. Adrenals and kidneys unremarkable Normal appendix. No evidence of diverticulitis. 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 Bladder distention
--- NOTE | 2024-06-27 18:52 | ER ---
Nurse's Notes [facility] Name: Alex Auguste Age: 43 yrs Sex: Male : 1980 Arrival Date: 06/27/2024 Time: 15:27 Bed 16 Private MD: Diagnosis: Other chronic pancreatitis Presentation: 06/27 15:49 Chief complaint: Patient states: epigastric pain starting last night, nausea and ph vomiting starting this morning. 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 Coronavirus screen: Client denies travel out of the [place] in the last 14 days. Ebola Screen: Patient negative for fever greater than or equal to 101.5 degrees Fahrenheit, and additional compatible Ebola Virus Disease symptoms Patient denies exposure to infectious person. Patient denies travel to an Ebola-affected area in the 21 days before illness onset. No symptoms or risks identified at this time. Initial Sepsis Screen: Does the patient meet any 2 criteria? No. Patient's initial sepsis screen is negative. Does the patient have a suspected source of infection? No. Patient's initial sepsis screen is negative. Risk Assessment: Do you want to hurt yourself or someone else? Patient reports no desire to harm self or others. Onset of symptoms was June 26, 2024. 15:49 Method Of Arrival: Ambulatory ph 15:49 Acuity: [place] 3 ph Triage Assessment: 15:50 General: Appears uncomfortable, Behavior is calm, cooperative. Pain: Complains of pain ph in epigastric area Pain currently is 10 out of 10 on a pain scale. Pain began 1 day ago. EENT: No signs and/or symptoms were reported regarding the EENT system. Neuro: Level of Consciousness is awake, alert, obeys commands, Oriented to person, place, time, situation. Cardiovascular: Patient's skin is warm and dry. Respiratory: Airway is patent Respiratory effort is even, unlabored, Respiratory pattern is regular, symmetrical. GI: Abdomen is flat, non-distended, Reports epigastric pain, nausea, vomiting. : No signs and/or symptoms were reported regarding the genitourinary system. Derm: No signs and/or symptoms reported regarding the dermatologic system. Musculoskeletal: No signs and/or symptoms reported regarding the musculoskeletal system. Historical: - Allergies: 15:50 No Known Allergies; ph - PMHx: 15:50 angina pectoris; Anxiety; Chronic Pancreatitis; depressive disorder; Diabetes - IDDM; ph GERD; High Triglycerides; Hypertensive disorder; - PSHx: 15:50 Cholecystectomy; hand; ph - Immunization history:: Flu vaccine is not up to date. - Infectious Disease History:: Denies. - Social history:: Smoking status: Reported history of juuling and/or vaping. - Family history:: not pertinent. - Hospitalizations: : No recent hospitalization is reported. Screenin:18 [facility] ED Fall Risk Assessment (Adult) History of falling in the last 3 months, ph including since admission No falls in past 3 months (0 pts) Confusion or Disorientation No (0 pts) Intoxicated or Sedated No (0 pts) Impaired Gait No (0 pts) Mobility Assist Device Used No (0 pt) Altered Elimination No (0 pt) Score/Fall Risk Level 0 - 2 = Low Risk Oriented to surroundings, Maintained a safe environment, Hourly rounding (assess needs \T\ fall precautionary measures) done. Abuse screen: Denies threats or abuse. Denies injuries from another. Nutritional screening: No deficits noted. Tuberculosis screening: No symptoms or risk factors identified. Assessment: 16:18 General: Appears in no apparent distress. uncomfortable, Behavior is calm, cooperative, ph appropriate for age. Pain: Complains of pain in epigastric area. Neuro: Level of Consciousness is awake, alert, obeys commands, Oriented to person, place, time, situation. Cardiovascular: Capillary refill < 3 seconds in bilateral fingers Patient's skin is warm and dry. Respiratory: Airway is patent Respiratory effort is even, unlabored. GI: Bowel sounds present X 4 quads. Abd is soft X 4 quads Reports upper abdominal pain, nausea. Derm: Skin is pink, warm \T\ dry. 17:41 Reassessment: Patient appears in no apparent distress at this time. Patient and/or ph family updated on plan of care and expected duration. Pain level reassessed. Patient is alert, oriented x 3, equal unlabored respirations, skin warm/dry/pink. Pt states that pain has returned, requesting additional pain medication ERP notified, verbal order given for morphine 4mg, see MAR. 18:51 Reassessment: Patient appears in no apparent distress at this time. Patient and/or ph family updated on plan of care and expected duration. Pain level reassessed. Patient is alert, oriented x 3, equal unlabored respirations, skin warm/dry/pink. Pt resting comfortably, family at bedside. Vital Signs: 15:49 BP 118 / 92; Pulse 99; Resp 18; Temp 98.3(O); Pulse Ox 98% on R/A; MAP 100 mmHg; Weight ph 90.72 kg; Height 5 ft. 10 in. ; Pain 10/10; 16:19 BP 134 / 82; Pulse 91; Resp 18; Pulse Ox 97% on R/A; ph 17:42 BP 126 / 84; Pulse 87; Resp 18; Pulse Ox 97% on R/A; ph 18:55 BP 128 / 78; Pulse 89; Resp 18; Temp 97.9; Pulse Ox 98% on R/A; ph 15:49 Body Mass Index 28.70 (90.72 kg, 177.8 cm) ph 15:49 Pain Scale: Adult ph ED Course: 15:28 Patient arrived in ED. mr 15:33 Venkat Lyon MD is Attending Physician. rn 15:36 Danielle Massey RN is Primary Nurse. ph 15:50 Triage completed. ph 15:50 Arm band placed on right wrist. ph 15:52 CBC with Diff Sent. bc6 15:52 CMP Sent. bc6 15:52 Lipase Sent. bc6 15:52 Initial lab(s) drawn, by vt, sent to lab. Inserted saline lock: 20 gauge in left bc6 forearm, using aseptic technique. Blood collected. Flushed with 10 mL NS. 16:19 Patient has correct armband on for positive identification. Bed in low position. Call ph light in reach. Side rails up X 1. Pulse ox on. NIBP on. Door closed. Noise minimized. Pillow given. 17:57 CT Abd/Pelvis - IV Contrast Only In Process Unspecified. EDMS 18:52 No provider procedures requiring assistance completed. Patient admitted, IV remains in ph place. Administered Medications: 16:17 Drug: Ondansetron IVP 4 mg IVP once; over 2 minutes Route: IVP; Site: left forearm; ph 18:25 Follow up: Response: No adverse reaction ph 16:17 Drug: morphine IVP or IV 4 mg IVP once over 4 mins Route: IVP; Infused Over: 4 mins; ph Site: left forearm; 16:30 Follow up: Response: No adverse reaction; Pain is decreased ph 17:41 Drug: morphine IVP or IV 4 mg IVP once over 4 mins Route: IVP; Infused Over: 4 mins; ph Site: left forearm; 18:24 Follow up: Response: No adverse reaction; Pain is decreased; RASS: Alert and Calm (0) ph Medication: 16:19 VIS not applicable for this client. ph Outcome: 18:51 Discharge ordered by . rn 18:58 Discharged to home ambulatory, with family, ph 18:58 Condition: good 18:58 Discharge instructions given to patient, Instructed on discharge instructions, follow up and referral plans. medication usage, Demonstrated understanding of instructions, follow-up care, medications, Prescriptions given X 2, 18:58 Patient left the ED. ph Signatures: Dispatcher [employer] Rosalee Paz, Venkat Toney MD MD rn Hall, Patricia, RN RN ph [place], Breana bc6 Corrections: (The following items were deleted from the chart) 17:41 17:41 morphine IVP or IV 4 mg IVP in left antecubital over 4 mins ph ph
--- NOTE | 2024-06-27 18:52 | EDPHYS ---
Physician Documentation [facility] Name: Alex Auguste Age: 43 yrs Sex: Male : 1980 Arrival Date: 06/27/2024 Time: 15:27 Bed 16 Private MD: ED Physician Venkat Lyon HPI: 06/27 15:55 This 43 yrs old Male presents to ER via Ambulatory with complaints of Abdominal Pain, rn Vomiting. 15:55 The patient presents to the emergency department with nausea, vomiting, abdominal pain. rn Onset: The symptoms/episode began/occurred last night. Possible causes: flare up of bowel problem, Pancreatitis. The symptoms are aggravated by nothing. The symptoms are alleviated by nothing. The patient has experienced similar episodes in the past. Patient reports upper abdominal pain with nausea and vomiting identical to previous pancreatitis episodes.. Historical: - Allergies: 15:50 No Known Allergies; ph - PMHx: 15:50 angina pectoris; Anxiety; Chronic Pancreatitis; depressive disorder; Diabetes - IDDM; ph GERD; High Triglycerides; Hypertensive disorder; - PSHx: 15:50 Cholecystectomy; hand; ph - Immunization history:: Flu vaccine is not up to date. - Infectious Disease History:: Denies. - Social history:: Smoking status: Reported history of juuling and/or vaping. - Family history:: not pertinent. - Hospitalizations: : No recent hospitalization is reported. ROS: 15:55 Constitutional: Negative for fever, chills, and weight loss, Cardiovascular: Negative rn for chest pain, palpitations, and edema, Respiratory: Negative for shortness of breath, cough, wheezing, and pleuritic chest pain, Abdomen/GI: Positive for abdominal pain with nausea and vomiting MS/Extremity: Negative for injury and deformity, Skin: Negative for injury, rash, and discoloration, Neuro: Negative for headache, weakness, numbness, tingling, and seizure, Exam: 15:55 Constitutional: This is a well developed, well nourished patient who is awake, alert, rn and in no acute distress. Cardiovascular: Regular rate and rhythm. No pulse deficits. Respiratory: No increased work of breathing, no retractions or nasal flaring. Abdomen/GI: Soft, mild epigastric tenderness. No rebound or guarding MS/ Extremity: Pulses equal, no cyanosis. Neuro: Awake and alert, GCS 15 Vital Signs: 15:49 BP 118 / 92; Pulse 99; Resp 18; Temp 98.3(O); Pulse Ox 98% on R/A; MAP 100 mmHg; Weight ph 90.72 kg; Height 5 ft. 10 in. ; Pain 10/10; 16:19 BP 134 / 82; Pulse 91; Resp 18; Pulse Ox 97% on R/A; ph 17:42 BP 126 / 84; Pulse 87; Resp 18; Pulse Ox 97% on R/A; ph 18:55 BP 128 / 78; Pulse 89; Resp 18; Temp 97.9; Pulse Ox 98% on R/A; ph 15:49 Body Mass Index 28.70 (90.72 kg, 177.8 cm) ph 15:49 Pain Scale: Adult ph MDM: 15:33 Medical Screening Exam initiated rn 18:47 Differential diagnosis: Nonspecific abd pain, gastritis, pancreatitis, viral rn gastroenteritis, gastroenteritis. 18:51 Data reviewed: vital signs, nurses notes, lab test result(s), radiologic studies, CT rn scan, and as a result, I will discharge patient. Counseling: I had a detailed discussion with the patient and/or guardian regarding the historical points, exam findings, and any diagnostic results supporting the discharge/admit diagnosis, lab results, radiology results, the need for outpatient follow up, to return to the emergency department if symptoms worsen or persist or if there are any questions or concerns that arise at home. Response to treatment: the patient's symptoms have markedly improved after treatment, and as a result, I will discharge patient. Special discussion: I discussed with the patient/guardian in detail that at this point there is no indication for admission to the hospital. It is understood, however, that if the symptoms persist or worsen the patient needs to return immediately for re-evaluation. 06/27 15:34 Order name: CBC with Diff; Complete Time: 17:25 rn 06/27 15:34 Order name: CMP; Complete Time: 17:25 rn 06/27 15:34 Order name: Lipase; Complete Time: 17:25 rn 06/27 15:34 Order name: CT Abd/Pelvis - IV Contrast Only; Complete Time: 18:24 rn 06/27 15:34 Order name: IV Saline Lock; Complete Time: 15:52 rn 06/27 15:34 Order name: Labs collected and sent; Complete Time: 15:52 rn Administered Medications: 16:17 Drug: Ondansetron IVP 4 mg IVP once; over 2 minutes Route: IVP; Site: left forearm; ph 18:25 Follow up: Response: No adverse reaction ph 16:17 Drug: morphine IVP or IV 4 mg IVP once over 4 mins Route: IVP; Infused Over: 4 mins; ph Site: left forearm; 16:30 Follow up: Response: No adverse reaction; Pain is decreased ph 17:41 Drug: morphine IVP or IV 4 mg IVP once over 4 mins Route: IVP; Infused Over: 4 mins; ph Site: left forearm; 18:24 Follow up: Response: No adverse reaction; Pain is decreased; RASS: Alert and Calm (0) ph Disposition Summary: 06/27/24 18:51 Discharge Ordered Notes: Location: Home rn Problem: chronic rn Symptoms: have improved rn Condition: Stable rn Diagnosis - Other chronic pancreatitis rn Followup: rn - With: Private Physician - When: As needed - Reason: Recheck today's complaints, Re-evaluation by your physician Discharge Instructions: - Discharge Summary Sheet rn - Chronic Pancreatitis rn Forms: - Medication Reconciliation Form rn - Antibiotic manager internal - Prescription Opioid Use rn - Patient Portal Instructions rn - Leadership Thank You Letter rn Prescriptions: - ondansetron 4 mg Oral Tablet,disintegrating - take 1 tablet ORAL route every 8 hours As needed; 12 tablet; Refills: 0, rn Product Selection Permitted - Tramadol 50 mg Oral Tablet - take 1 tablet ORAL route every 8 hours as needed; 12 tablet; Refills: 0, rn Product Selection Permitted Signatures: Dispatcher [employer] EDVenkat Ruth MD MD rn Hall, Patricia, RN RN ph Corrections: (The following items were deleted from the chart) 15:34 15:34 CBC+H.LAB.BRZ ordered. EDMS EDMS 15:34 15:34 COMPREHENSIVE METABOLIC PANEL+C.LAB.BRZ ordered. EDMS EDMS 15:34 15:34 LIPASE+C.LAB.BRZ ordered. EDMS EDMS
[2024-06-27 19:22] VITALS: TEMP 98.3
[2024-06-27 19:23] VITALS: O2SAT 97
[2024-06-27 19:24] VITALS: BP 126/84
== END 2024-06-27 18:58 | disposition home or self-care (01) ==
LOC: ER 15:27
DX: K86.1 Other chronic pancreatitis (principal)
CPT/HCPCS: 85025; 36415; 83690; 80053; 74177; 96375; 96374; 99284; Q9967; J2405

== ENCOUNTER 2024-07-14 19:10 | Emergency (ER) | payer BC ==
--- OUTSIDE RECORDS SUMMARY | 2024-07-14 19:16 | XMS REPORT | Continuity of Care Document ---
Author Name Unknown Address [address] [facility] [place] [address] [facility] Address [address] [place] [address] Care Team Providers Care Dumper Bulk System Name Role Phone Briana Hughes Primary Care Physician [phone] Chetan Coleman Attending Clinician Unavailable Doctor Unassigned, [place] Attending Clinician U Briana Lebron Attending Clinician [phone] Cole Guan MD Attending Clinician [phone] FORTINO FARRIS Attending Clinician Unavailable Fortino Farris MD Attending Clinician [phone] Nader Randall Attending Clinician [phone] Doctor Unassigned, [place] Attending Clinician U Lillian Pickett Attending Clinician [phone] Madeline MCDONNELL, Annita Huizar Attending Clinician [phone] Kofi Beebe MD Attending Clinician [phone] Laurence Jose MD Attending Clinician [phone] COLE GUAN Attending Clinician Unavailabl e FORTINO FARRIS Admitting Clinician Unavailable Laurence Jose MD Admitting Clinician [phone] Payers Payer Name Policy Type Policy Number Effective Date Expirati on Date Source [facility] [id number] 2019 00:00:00 Problems Condition Name Condition Details Condition Category Status Onset Date Resolution Date Last Treatment Date Treating Clinician Comments Source Acute on chronic pancreatit is Acute on chronic pancreatit is Disease Active 2019-07 00:00: 00 [facility] Hypertrigl yceridemia Hypertrigl yceridemia Disease Active 12-29 00:00: 00 [facility] Type 2 diabetes mellitus with complicati on, with long-term current use of insulin Type 2 diabetes mellitus with complicati on, with long-term current use of insulin Disease Active 12-29 00:00: 00 [facility] Type 2 diabetes mellitus with complicati on, with long-term current use of insulin Type 2 diabetes mellitus with complicati on, with long-term current use of insulin Disease Active 12-29 00:00: 00 [facility] Diplopia Diplopia Disease Active 2014-07 00:00: 00 [facility] Diabetes mellitus type 2, uncontroll ed, without complicati ons Diabetes mellitus type 2, uncontroll ed, without complicati ons Disease Active 04-04 00:00: 00 Overview: Formattin g of this note might be different from the original. ICD10 Diagnosis Term Extracorporeal Technician Utility [facility] HLD (hyperlipi demia) HLD (hyperlipi demia) Disease Active 04-04 00:00: 00 [facility] Essential hypertensi on, benign Essential hypertensi on, benign Disease Active 04-04 00:00: 00 [facility] Vitamin D deficiency Vitamin D deficiency Disease Active 04-04 00:00: 00 Overview: Formattin g of this note might be different from the original. ICD10 Diagnosis Term Extracorporeal Technician Utility [facility] Allergies, Adverse Reactions, Alerts Allergy Name Allergy Type Status Severity Reaction(s) Onset Date Inactive Date Treating Clinician Comments Source No Known Drug Allergie s DA Active U 10-03 00:00: 00 [facility] No Known Drug Allergie s DA Active U 3-21 00:00: 00 [facility] No Known Drug Allergie s DA Active U 3-17 00:00: 00 [facility] NO KNOWN ALLERGIE S Drug Class Active [facility] Social History Social Habit Start Date Stop Date Quantity Comments Source History of tobacco use Snuff User [facility] Exposure to SARS-CoV-2 (event) Not sure [facility] Alcohol intake 2020-06-25 00:00:00 2020-06-25 00:00:00 Current non-drinker of alcohol (finding) [facility] Alcoholic beverage intake 2020-06-25 00:00:00 2020-06-25 00:00:00 0 /d [facility] History of Social function 2020-06-25 00:00:00 2020-06-25 00:00:00 [facility] Tobacco use and exposure 2015-04-22 00:00:00 2015-04-22 00:00:00 User of smokeless tobacco [facility] Sex assigned at 1980 00:00:00 1980 00:00:00 [facility] Smoking Status Start Date Stop Date Source Never smoked tobacco [facility] Medications Ordered Medication Name Filled Medication Name Start Date Stop Date Current Medication? Ordering Clinician Indication Dosage Frequency Signature (SIG) Comments Components Source insulin regular human (HUMULIN R) injection 6 Units 12-13 03:00: 00 12-13 02:04 :00 No 6U 6 Units, Slow IV Push, ONCE, 1 dose, On Wed12/13/23 at 2200, STAT, Indication for insulin: Hyperglyce adam [facility] ondansetron (ZOFRAN (PF)) injection 4 mg 12-13 03:00: 00 12-13 02:05 :00 No 4mg 4 mg, Slow IV Push, ONCE, 1 dose, On Wed12/13/23 at 2200, ANA MARIA [facility] morpHINE (4 mg/mL) injection 4 mg 12-13 02:00: 00 12-13 02:06 :00 No 4mg 4 mg, Slow IV Push, ONCE, 1 dose, On Wed12/13/23 at 2100, STAT [facility] insulin regular human (HUMULIN R) injection 6 Units 12-13 02:00: 00 12-13 01:19 :00 No 6U 6 Units, Slow IV Push, ONCE, 1 dose, On Wed12/13/23 at 2100, STAT, Indication for insulin: Hyperglyce adam [facility] NaCl 0.9% (NS) bolus infusion 1,000 mL 12-13 02:00: 00 12-13 02:34 :00 No 1000mL at 999 mL/hr, 1,000 mL, IV Infusion, ONCE, 1 dose, On Wed12/13/23 at 2100, STAT [facility] iopamidol (ISOVUE 370-500 mL) injection 79 mL 12-13 01:05: 00 12-13 01:05 :00 No [id number] 79mL 79 mL, Intravenou s, ONCE, 1 dose, On Wed12/13/23 at 2015, Routine [facility] morpHINE injection 2 mg 11-16 22:00: 00 11-16 22:00 :00 No 2mg 2 mg, Slow IV Push, ONCE, 1 dose, 11/16/20 at 1700, STAT [facility] predniSONE (DELTASONE) tablet 20 mg 11-16 21:30: 00 11-16 20:49 :00 No 20mg 20 mg, Oral, ONCE, 1 dose, 11/16/20 at 1630, ANA MARIA [facility] amoxicillin -clavulanat e (AUGMENTIN) 875-125 mg per tablet 1 tablet 11-16 21:30: 00 11-16 20:49 :00 No 1{tbl} 1 tablet, Oral, ONCE, 1 dose, 11/16/20 at 1630, Routine
Reason for Anti-Infec tive: Documented Infection< br>Documen j luis Infection Site: Abdominal< br>Duratio n of Therapy: 10 days [facility] iopamidol (ISOVUE 370-500 mL) injection 100 mL 11-16 20:45: 00 11-16 19:30 :00 No [id number] 100mL 100 mL, Intravenou s, ONCE, 1 dose, 11/16/20 at 1545, Routine [facility] morpHINE injection 4 mg 11-16 20:15: 00 11-16 19:12 :00 No 4mg 4 mg, Slow IV Push, ONCE, 1 dose, 11/16/20 at 1515, STAT [facility] ondansetron (ZOFRAN (PF)) injection 4 mg 11-16 19:30: 00 11-16 18:28 :00 No 4mg 4 mg, Slow IV Push, ONCE, 1 dose, 11/16/20 at 1430, ANA MARIA [facility] NaCl 0.9% (NS) bolus infusion 1,000 mL 11-16 19:30: 00 11-16 21:16 :00 No 1000mL at 999 mL/hr, 1,000 mL, IV Infusion, ONCE, 1 dose, 11/16/20 at 1430, STAT [facility] amoxicillin -clavulanat e 875-125 mg per tablet 11-16 00:00: 00 Yes [id number] 1{tbl} Take 1 tablet by mouth every 12 (twelve) hours. [facility] predniSONE 20 mg tablet 11-16 00:00: 00 Yes [id number] 1 PO BID x 4 days [facility] ibuprofen (IBU) tablet 800 mg 07-28 23:30: 00 07-28 22:44 :00 No 800mg 800 mg, Oral, ONCE, 1 dose, 07/28/20 at 1730, ANA MARIA [facility] Diclofenac Sodium (VOLTAREN) 1 % gel 07-28 00:00: 00 Yes [id number] Apply to area(s) 2 (two) times daily. [facility] insulin glargine (LANTUS U-100) injection 36 Units 2019-07 03:00: 00 Yes 36U 36 Units, Subcutaneo us, QHS, First dose (after last modificati on) on 06/29/20 at 2100, Until Discontinu ed, Routine [facility] gemfibroziL 600 mg tablet 2019-07 01:33: 08 Yes 600mg Take 600 mg by mouth 2 (two) times daily before breakfast and dinner. [facility] metoprolol tartrate 25 mg tablet 2019-07 01:33: 08 Yes 25mg Take 25 mg by mouth 2 (two) times daily. [facility] Pantoprazol e 40 mg delayed-rel ease suspension 2019-07 01:33: 08 Yes 40mg Take 40 mg by mouth daily. [facility] busPIRone 10 mg tablet 2019-07 01:33: 08 Yes 10mg Take 10 mg by mouth 2 (two) times daily. [facility] niacin 500 mg tablet 2019-07 01:33: 08 Yes 500mg Take 500 mg by mouth daily with breakfast. [facility] lipase-prot ease-amylas e (CREON) 36,000-114, 000- 180,000 unit CpDR 2019-07 01:33: 08 Yes [id number] Take 36,000 Units by mouth with all meals. Take 2 capsules by mouth with meals and 1 with each snack. [facility] losartan 25 mg tablet 2019-07 01:33: 08 Yes 25mg Take 25 mg by mouth daily. [facility] vortioxetin e 10 mg Tab 2019-07 01:33: 08 Yes 10mg Take 10 mg by mouth at bedtime. [facility] gemfibroziL 600 mg tablet 2019-07 19:33: 08 Yes 600mg Take 600 mg by mouth 2 (two) times daily before breakfast and dinner. [facility] metoprolol tartrate 25 mg tablet 2019-07 19:33: 08 Yes 25mg Take 25 mg by mouth 2 (two) times daily. [facility] Pantoprazol e 40 mg delayed-rel ease suspension 2019-07 19:33: 08 Yes 40mg Take 40 mg by mouth daily. [facility] busPIRone 10 mg tablet 2019-07 19:33: 08 Yes 10mg Take 10 mg by mouth 2 (two) times daily. [facility] niacin 500 mg tablet 2019-07 19:33: 08 Yes 500mg Take 500 mg by mouth daily with breakfast. [facility] lipase-prot ease-amylas e (CREON) 36,000-114, 000- 180,000 unit CpDR 2019-07 19:33: 08 Yes [id number] Take 36,000 Units by mouth with all meals. Take 2 capsules by mouth with meals and 1 with each snack. [facility] losartan 25 mg tablet 2019-07 19:33: 08 Yes 25mg Take 25 mg by mouth daily. [facility] vortioxetin e 10 mg Tab 2019-07 19:33: 08 Yes 10mg Take 10 mg by mouth at bedtime. [facility] insulin glargine (LANTUS U-100) injection 15 Units 2019-07 15:00: 00 06-29 14:07 :00 No 15U 15 Units, Subcutaneo us, ONCE, 1 dose, 06/29/20 at 0900, Routine [facility] morpHINE injection 2 mg 2019-07 08:15: 00 Yes 2mg 2 mg, Slow IV Push, Q6HPRN, Starting 06/29/20 at 0215, Until Discontinu ed, Routine, Pain (scale 7-10) [facility] atorvastati n 40 mg tablet 2019-07 00:00: 00 07-30 05:59 :00 No [id number] 40mg Take 1 tablet by mouth at bedtime for 30 days. [facility] haloperidol lactate (HALDOL) injection 5 mg 2019-07 22:30: 00 06-28 22:51 :00 No 5mg 5 mg, Slow IV Push, ONCE NOW, 1 dose, 06/28/20 at 1630, Routine [facility] LORazepam (ATIVAN) injection 1 mg 2019-07 21:00: 00 06-28 20:16 :00 No 1mg 1 mg, Slow IV Push, ONCE, 1 dose, Wed06/28/20 at 1500, Routine [facility] FLUoxetine (PROZAC) capsule 20 mg 2019-07 20:30: 00 Yes 20mg 20 mg, Oral, DAILY, First dose on Wed06/28/20 at 1430, Until Discontinu ed, Routine [facility] NaCl 0.9% (NS) IV infusion 1,000 mL 2019-07 14:30: 00 Yes 1000mL at 100 mL/hr, IV Infusion, CONTINUOUS , Starting Wed06/28/20 at 0830, Until Discontinu ed, Routine [facility] KCL (KLOR-CON M20) tablet 40 mEq 2019-07 14:30: 00 06-28 14:38 :00 No 40meq 40 mEq, Oral, ONCE, 1 dose, Wed06/28/20 at 0830, Routine [facility] Sliding Scale Insulin-Reg ular + Fsbg Testing 2019-07 13:30: 00 Yes Subcutaneo us, AC+HS, First dose on Wed06/28/20 at 0730, Until Discontinu ed, Routine [facility] glucagon (GLUCAGEN DIAGNOSTIC KIT) injection 1 mg 2019-07 13:23: 08 Yes 1mg 1 mg, Intramuscu lar, PRN, Starting Wed06/28/20 at 0723, Until Discontinu ed, ANA MARIA, Blood Glucose < or = 70 mg/dL and patient is unable to swallow or has mental changes. [facility] dextrose 50 % in water (D50W) injection 25 mL 2019-07 13:23: 08 Yes 25mL 25 mL, Slow IV Push, PRN, Starting Wed06/28/20 at 0723, Until Discontinu ed, ANA MARIA, Blood Glucose < or = 70 mg/dL and patient is unable to swallow or has mental status changes. [facility] dextrose 50 % in water (D50W) injection 50 mL 2019-07 07:00: 06-28 06:00 :00 No 50mL 50 mL, Slow IV Push, ONCE, 1 dose, Wed06/28/20 at 0100, ANA MARIA [facility] metoprolol tartrate (LOPRESSOR) tablet 25 mg 2019-07 02:00: 00 Yes 25mg 25 mg, Oral, BID, First dose on Wed06/27/20 at 2000, Until Discontinu ed, Routine [facility] omega 3-dha-epa-f beckie oil (FISH OIL) capsule 1,000 mg 2019-07 20:00: 00 Yes 1000mg 1,000 mg, Oral, TID, First dose on Wed06/27/20 at 1400, Until Discontinu ed, Routine
Reason for non-formul caitlyn use: PATIENT CURRENTLY TAKING NONFORMULA RY PRODUCT
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
If glucose < 250, start D5W and titrate to keep glucose 100-180
[facility] atorvastati n (LIPITOR) tablet 40 mg 2019-07 03:00: 00 Yes 40mg 40 mg, Oral, QHS, First dose on Wed06/26/20 at 2100, Until Discontinu ed, Routine [facility] gemfibroziL (LOPID) tablet 600 mg 2019-07 02:00: 00 Yes 600mg 600 mg, Oral, BID, First dose on Wed06/26/20 at 2000, Until Discontinu ed, Routine [facility] busPIRone (BUSPAR) tablet 10 mg 2019-07 02:00: 00 Yes 10mg 10 mg, Oral, BID, First dose on Wed06/26/20 at 2000, Until Discontinu ed, Routine [facility] enoxaparin (LOVENOX) injection 40 mg 2019-07 23:00: 00 Yes 40mg 40 mg, Subcutaneo us, DAILY, First dose on Wed06/26/20 at 1700, Until Discontinu ed, Routine [facility] morpHINE injection 4 mg 2019-07 16:30: 00 06-27 07:29 :00 No 4mg 4 mg, Slow IV Push, Q3HPRN, Starting Wed06/26/20 at 1030, Until Padmini 06/27/20 at 0129, Routine, Pain (scale 7-10) [facility] insulin regular in 0.9 % NaCl (MYXREDLIN) 100 unit/100 mL (1 unit/mL) RTU IV infusion 2019-07 16:16: 21 06-27 11:12 :30 No 8U/h 8 Units/hr (8 mL/hr), IV Infusion, TITRATE, Notify hospitalis t to adjust insulin rate based on Triglyceri de level, Starting Wed06/26/20 at 1016
If glucose < 250, start D5W and titrate to keep glucose 100-180
[facility] proCHLORper azine (COMPAZINE) 10 mg in NaCl 0.9% (NS) piggyback 2019-07 16:15: 52 Yes 10mg 10 mg, IV Piggyback, Q4HPRN, Starting Wed06/26/20 at 1015, Until Discontinu ed, 50 mL [facility] ketorolac (TORADOL) injection 30 mg 2019-07 16:15: 35 Yes 30mg 30 mg, Slow IV Push, Q6HPRN, Starting Wed06/26/20 at 1015, Until Discontinu ed, Routine, Pain (scale 4-6)
Fa culty member approving Restricted medication : ELLIS ALMEIDA [facility] NaCl 0.9% (NS) IV infusion 1,000 mL 2019-07 14:15: 00 06-28 05:51 :27 No 1000mL at 125 mL/hr, 1,000 mL, IV Infusion, CONTINUOUS , Starting Wed06/26/20 at 0815, Until Padmini 06/27/20 at 2351, [facility] D5W 0.9% NaCl (NS) IV infusion 1,000 mL 2019-07 14:15: 00 06-28 13:21 :40 No 1000mL at 125 mL/hr, 1,000 mL, IV Infusion, CONTINUOUS , Starting Wed06/26/20 at 0815, Until Wed06/28/20 at 0721, [facility] Sliding Scale Insulin - Lispro (HumaLOG) + Fsbg Testing 2019-07 12:00: 00 06-26 21:57 :55 No Subcutaneo us, Q6H, First dose on Wed06/26/20 at 0600, Until Discontinu ed, Routine [facility] proMETHazin e (PHENERGAN) 12.5 mg in NaCl 0.9% (NS) 50 mL IV piggyback 2019-07 11:21: 28 Yes 12.5mg 12.5 mg, IV Piggyback, Q4HPRN, Starting Wed06/26/20 at 0521, Until Discontinu ed, Routine, Nausea and Vomiting (N/V) [facility] morpHINE injection 4 mg 2019-07 11:21: 11 06-26 16:15 :46 No 4mg 4 mg, Slow IV Push, Q4HPRN, Starting Wed06/26/20 at 0521, Until Wed06/26/20 at 1015, Routine, Pain (scale 7-10) [facility] NaCl 0.9% (NS) IV infusion 1,000 mL 2019-07 08:00: 00 06-26 14:01 :34 No 1000mL at 125 mL/hr, IV Infusion, CONTINUOUS , Starting Wed06/26/20 at 0200, Until Wed06/26/20 at 0801, Routine [facility] dextrose 50 % in water (D50W) injection 25 mL 2019-07 07:48: 20 06-28 13:26 :23 No 25mL 25 mL, Slow IV Push, PRN, Starting Wed06/26/20 at 0148, Until Wed06/28/20 at 0726, ANA MARIA, Blood Glucose < or = 70 mg/dL and patient is unable to swallow or has mental status changes. [facility] proMETHazin e (PHENERGAN) 25 mg in NaCl 0.9% (NS) 50 mL piggyback 2019-07 07:45: 00 06-26 07:45 :00 No 25mg 25 mg, IV Piggyback, ONCE, 1 dose, Wed06/26/20 at 0145, 50 mL [facility] FENTanyl PF (SUBLIMAZE (PF)) injection 100 mcg 2019-07 07:45: 00 06-26 06:34 :00 No 100ug 100 mcg, Slow IV Push, ONCE, 1 dose, Wed06/26/20 at 0145, Routine [facility] morpHINE injection 2 mg 2019-07 07:44: 30 06-26 11:21 :45 No 2mg 2 mg, Slow IV Push, Q4HPRN, Starting Wed06/26/20 at 0144, Until Wed06/26/20 at 0521, Routine, Pain (scale 7-10) [facility] acetaminoph en (TYLENOL) tablet 650 mg 2019-07 07:44: 20 Yes 650mg 650 mg, Oral, Q6HPRN, Starting Wed06/26/20 at 0144, Until Discontinu ed, Routine, Pain (scale 1-3) [facility] proMETHazin e (PHENERGAN) 25 mg in NaCl 0.9% (NS) 50 mL piggyback 2019-07 05:15: 00 06-26 05:15 :00 No 25mg 25 mg, IV Piggyback, ONCE, 1 dose, Wed06/25/20 at 2315, 50 mL [facility] FENTanyl PF (SUBLIMAZE (PF)) injection 100 mcg 2019-07 05:00: 00 06-26 03:51 :00 No 100ug 100 mcg, Slow IV Push, ONCE, 1 dose, 06/25/20 at 2300, STAT [facility] iohexol (OMNIPAQUE 350 BULK-150 mL) injection 120 mL 2019-07 04:45: 00 06-26 04:45 :00 No 120mL 120 mL, Intravenou s, ONCE, 1 dose, 06/25/20 at 2245, Routine [facility] NaCl 0.9% (NS) IV infusion 1,000 mL 2019-07 04:00: 00 06-26 14:01 :29 No 1000mL at 999 mL/hr, Intravenou s, CONTINUOUS , Starting 06/25/20 at 2200, Until 06/26/20 at 0801, Routine [facility] ondansetron (ZOFRAN (PF)) injection 4 mg 2019-07 04:00: 00 06-26 03:10 :00 No 4mg 4 mg, Slow IV Push, ONCE, 1 dose, 06/25/20 at 2200, ANA MARIA [facility] FENTanyl PF (SUBLIMAZE (PF)) injection 75 mcg 2019-07 04:00: 00 06-26 03:09 :00 No 75ug 75 mcg, Slow IV Push, ONCE, 1 dose, 06/25/20 at 2200, Routine [facility] LOVAZA, omega-3-aci d ethyl esters, 1 gram capsule 731 00:00: 00 Yes [id number] 3g Take 3 capsules by mouth daily. [facility] ondansetron (ZOFRAN ODT) 4 mg disintegrat ing tablet 11-11 00:00: 00 Yes [id number] 4mg Take 1 tablet by mouth every 8 (eight) hours as needed for Nausea and Vomiting (N/V). [facility] Insulin Chaplin, Disposable, (BD INSULIN PEN NEEDLE UF) 31 gauge x 5/16" Ndle 9-25 00:00: 00 Yes QID, DX:E11.9 [facility] Insulin Chaplin, Disposable, (BD INSULIN PEN NEEDLE UF) 31 gauge x 5/16" Ndle 04-05 00:00: 00 Yes QID, DX:E11.9 [facility] Insulin Chaplin, Disposable, (BD INSULIN PEN NEEDLE UF) 31 gauge x 5/16" Ndle 04-05 00:00: 00 Yes QID, DX:E11.9 [facility] atorvastati n (LIPITOR) 40 mg tablet 04-05 00:00: 00 02-08 00:00 :00 No [id number] 40mg Take 1 tablet by mouth at bedtime. [facility] LOVAZA, omega-3-aci d ethyl esters, (LOVAZA) 1 gram capsule 04-05 00:00: 02-08 00:00 :00 No [id number] 2g Take 2 capsules by mouth 2 (two) times daily before breakfast and dinner. [facility] insulin aspart (NOVOLOG FLEXPEN) 100 unit/mL injection 12-29 00:00: 00 Yes [id number] Inject as instructed TID AC up to 80 units daily [facility] Insulin Glargine (LANTUS SOLOSTAR) 100 unit/mL (3 mL) injection 12-29 00:00: 00 Yes [id number] 35U inject 35 Units under the skin every morning. [facility] glucagon 1 mg/mL SolR injection 12-29 00:00: 00 02-08 00:00 :00 No [id number] Use as instructed in case of severe hypoglycem ia. [facility] zolpidem (AMBIEN) 10 mg tablet 2014-07 00:00: 00 06-26 00:00 :00 No TAKE ONE TABLET BY MOUTH ONCE DAILY AT BEDTIME [facility] traMADOL (ULTRAM) 50 mg tablet 2014-07 00:00: 00 06-26 00:00 :00 No 50mg Take 1 Tab by mouth every 6 (six) hours as needed for Pain (scale 7-10). [facility] aspirin 81 mg chewable tablet 2014-07 0 00:00: 00 02-08 00:00 :00 No 81mg Take 1 Tab by mouth daily. [facility] enalapril (VASOTEC) 5 mg tablet 2014-07 0 00:00: 00 02-08 00:00 :00 No 5mg Take 1 Tab by mouth daily. [facility] fenofibrate micronized (LOFIBRA) 134 mg capsule 2014-07 00:00: 00 02-08 00:00 :00 No 134mg Take 1 Cap by mouth daily. [facility] blood sugar diagnostic (FREESTYLE INSULINX) strip 2011-07 0 00:00: 00 02-08 00:00 :00 No [id number] before meals and at bedtime. [facility] Lancets (LANCETS,UL TRA THIN) [facility] 04-04 00:00: 00 Yes [id number] [facility] Lancets (LANCETS,UL TRA THIN) [facility] 04-04 00:00: 00 Yes [id number] [facility] Vital Signs Vital Name Observation Time Observation Value Comments S kat Systolic blood pressure 2023-12-14 02:00:00 116 mm[Hg] [facility] Diastolic blood pressure 2023-12-14 02:00:00 79 mm[Hg] [facility] Heart rate 2023-12-14 02:00:00 71 /min [facility] Respiratory rate 2023-12-14 02:00:00 16 /min [facility] Oxygen saturation in Arterial blood by Pulse oximetry 2023-12-14 02:00:00 100 /min [facility] Body temperature 2023-12-14 00:00:00 36.44 Dejah [facility] Body height 2023-12-13 22:27:00 177.8 cm [facility] Body weight 2023-12-13 22:27:00 83.915 kg [facility] BMI 2023-12-13 22:27:00 26.54 kg/m2 [facility] Systolic blood pressure 2020-11-16 21:02:00 150 mm[Hg] [facility] Diastolic blood pressure 2020-11-16 21:02:00 93 mm[Hg] [facility] Heart rate 2020-11-16 21:02:00 93 /min [facility] Respiratory rate 2020-11-16 21:02:00 20 /min [facility] Oxygen saturation in Arterial blood by Pulse oximetry 2020-11-16 21:02:00 100 /min [facility] Body temperature 2020-11-16 18:21:00 36.61 Dejah [facility] Body weight 2020-11-16 18:21:00 89.359 kg [facility] BMI 2020-11-16 18:21:00 28.27 kg/m2 [facility] Systolic blood pressure 2020-07-28 21:58:00 147 mm[Hg] [facility] Diastolic blood pressure 2020-07-28 21:58:00 100 mm[Hg] [facility] Heart rate 2020-07-28 21:58:00 103 /min [facility] Body temperature 2020-07-28 21:58:00 36.28 Dejah [facility] Respiratory rate 2020-07-28 21:58:00 20 /min [facility] Body weight 2020-07-28 21:58:00 86.183 kg [facility] BMI 2020-07-28 21:58:00 27.26 kg/m2 [facility] Oxygen saturation in Arterial blood by Pulse oximetry 2020-07-28 21:58:00 100 /min [facility] Systolic blood pressure 2020-06-29 22:21:00 133 mm[Hg] [facility] Diastolic blood pressure 2020-06-29 22:21:00 81 mm[Hg] [facility] Heart rate 2020-06-29 22:21:00 89 /min Unive [facility] Body temperature 2020-06-29 22:21:00 36.83 Dejah [facility] Respiratory rate 2020-06-29 22:21:00 18 /min [facility] Oxygen saturation in Arterial blood by Pulse oximetry 2020-06-29 22:21:00 99 /min [facility] Body weight 2020-06-27 10:03:00 87.998 kg [facility] BMI 2020-06-27 10:03:00 27.84 kg/m2 [facility] Body height 2020-06-26 07:45:00 177.8 cm [facility] Systolic blood pressure 2020-06-29 22:21:00 133 mm[Hg] [facility] Diastolic blood pressure 2020-06-29 22:21:00 81 mm[Hg] [facility] Heart rate 2020-06-29 22:21:00 89 /min [facility] Body temperature 2020-06-29 22:21:00 36.83 Dejah [facility] Respiratory rate 2020-06-29 22:21:00 18 /min [facility] Oxygen saturation in Arterial blood by Pulse oximetry 2020-06-29 22:21:00 99 /min [facility] Body weight 2020-06-27 10:03:00 87.998 kg [facility] BMI 2020-06-27 10:03:00 27.84 kg/m2 [facility] Body height 2020-06-26 07:45:00 177.8 cm [facility] Procedures Procedure Date / Time Performed Performing Clinician Source POCT GLUCOSE (AUTOMATED) 2023-12-14 02:25:00 Isaiah Farris [facility] POCT GLUCOSE (AUTOMATED) 2023-12-14 02:04:00 Isaiah Farris [facility] POCT GLUCOSE (AUTOMATED) 2023-12-14 01:35:00 Isaiah Farris [facility] POCT GLUCOSE (AUTOMATED) 2023-12-14 01:18:00 Isaiah Farris [facility] CT ABDOMEN PELVIS W CONTRAST 2023-12-14 01:09:58 Fortino Farris [facility] LIPASE 2023-12-14 00:08:00 [facility] TROPONIN I 2023-12-14 00:08:00 Fortino Farris [facility] COMP. METABOLIC PANEL (39738) 2023-12-14 00:08:00 Fortino Farris [facility] ETHANOL 2023-12-14 00:08:00 [facility] CBC WITH DIFF 2023-12-14 00:08:00 Fortino Farris [facility] URINALYSIS 2023-12-14 00:08:00 [facility] N-TERMINAL PRO-BNP 2023-12-14 00:08:00 Fortino Farris [facility] URINE DRUG (IMMUNOASSAY) - COMPREHENSIVE DRUG SCREEN W/O REFLEX 2023-12-14 00:08:00 Fortino Farris [facility] XR CHEST 1 VW 2023-12-13 23:22:21 Fortino Farris [facility] CT ABDOMEN PELVIS W CONTRAST 2020-11-16 19:40:14 Nader Mendoza [facility] LIPASE 2020-11-16 18:28:00 N[facility] MAGNESIUM 2020-11-16 18:28:00 Nader Mendoza [facility] COMP. METABOLIC PANEL (68432) 2020-11-16 18:28:00 Nader Mendoza [facility] CBC WITH DIFF 2020-11-16 18:28:00 Nader Mendoza [facility] URINALYSIS 2020-11-16 18:28:00 Nader [facility] POCT GLUCOSE (AUTOMATED) 2020-11-16 18:25:00 Nader Mendoza [facility] CONSENT/REFUSAL FOR DIAGNOSIS AND TREATMENT 2020-11-16 18:14:39 Doctor Unassigned, [place] [facility] CT CERVICAL SPINE WO CONTRAST 2020-07-28 22:41:56 Lillian Barr [facility] CT HEAD WO CONTRAST 2020-07-28 22:41:56 Lillian Barr [facility] NOTICE OF PRIVACY PRACTICES 2020-07-28 21:50:31 Doctor Unassigned, [place] [facility] CONSENT/REFUSAL FOR DIAGNOSIS AND TREATMENT 2020-07-28 21:50:20 Doctor Unassigned, [place] [facility] POCT GLUCOSE (AUTOMATED) 2020-06-29 23:35:00 Rebeca [facility] POCT GLUCOSE (AUTOMATED) 2020-06-29 18:04:00 Rebeca [facility] POCT GLUCOSE (AUTOMATED) 2020-06-29 13:54:00 Rebeca [facility] TRIGLYCERIDES 2020-06-29 11:20:00 Ellis Almeida [facility] BASIC METABOLIC PANEL (NA, K, CL, CO2, GLUCOSE, BUN, CREATININE, CA) 2020-06-29 11:20:00 Rebeca [facility] CBC WITH DIFF 2020-06-29 11:20:00 Rebeca [facility] ADC / LCC - DRUG SCREEN TRIAGE 2020-06-29 03:10:00 Favio Moscoso [facility] POCT GLUCOSE (AUTOMATED) 2020-06-28 22:46:00 Rebeca [facility] POCT GLUCOSE (AUTOMATED) 2020-06-28 18:53:00 Rebeca [facility] POCT GLUCOSE (AUTOMATED) 2020-06-28 18:01:00 Rebeca [facility] POCT GLUCOSE (AUTOMATED) 2020-06-28 13:27:00 Rebeca [facility] POCT GLUCOSE (AUTOMATED) 2020-06-28 11:48:00 Rebeca [facility] TRIGLYCERIDES 2020-06-28 10:27:00 Ellis Almeida [facility] LIPASE 2020-06-28 10:27:00 Rebeca [facility] MAGNESIUM 2020-06-28 10:27:00 Favio Moscoso [facility] BASIC METABOLIC PANEL (NA, K, CL, CO2, GLUCOSE, BUN, CREATININE, CA) 2020-06-28 10:27:00 Rebeca [facility] ETHANOL 2020-06-28 10:27:00 Favio Moscoso [facility] CBC WITH DIFF 2020-06-28 10:27:00 Rebeca [facility] POCT GLUCOSE (AUTOMATED) 2020-06-28 10:10:00 Rebeca [facility] POCT GLUCOSE (AUTOMATED) 2020-06-28 07:00:00 Rebeca [facility] POCT GLUCOSE (AUTOMATED) 2020-06-28 05:48:00 Edtere [facility] POCT GLUCOSE (AUTOMATED) 2020-06-28 04:45:00 Edioncal [facility] POCT GLUCOSE (AUTOMATED) 2020-06-28 03:40:00 Edtere [facility] POCT GLUCOSE (AUTOMATED) 2020-06-28 02:43:00 Rebeca [facility] POCT GLUCOSE (AUTOMATED) 2020-06-28 01:39:00 Rebeca [facility] POCT GLUCOSE (AUTOMATED) 2020-06-27 23:10:00 [facility] TRIGLYCERIDES 2020-06-27 23:08:00 Ellis Almeida [facility] POCT GLUCOSE (AUTOMATED) 2020-06-27 21:29:00 Rebeca [facility] POCT GLUCOSE (AUTOMATED) 2020-06-27 19:54:00 [facility] ([facility]OM[facility]) 2020-06-27 18:59:00 [facility]UCOSE (AUTOMATED) 2020-06-27 17:42:00 [facility] PO[facility] GLUCOSE (AUTOMATED) 2020-06-27 16:50:00 [facility] PO[facility]UCOSE (AUTOMATED) 2020-06-27 14:43:00 [facility] PO[facility] GLUCOSE (AUTOMATED) 2020-06-27 13:19:00 [facility] PO[facility] GLUCOSE (AUTOMATED) 2020-06-27 12:18:00 [facility] TRIGLYCERIDES 2020-06-27 10:20:00 Ellis Almeida [facility] LIPASE 2020-06-27 10:20:00 [facility] MET[facility]OLIC PANEL (NA, K, CL, CO2, GLUCOSE, BUN, CREATININE, CA) 2020-06-27 10:20:00 Momo [facility] CBC WITH DIFF 2020-06-27 10:20:00 [facility]OMATED) 2020-06-27 10:06[facility] 2020-06-27 09:06:00 [facility] PO[facility]UCOSE (AUTOMATED) 2020-06-27 08:07:00 [facility] PO[facility] GLUCOSE (AUTOMATED) 2020-06-27 07:09:00 [facility] PO[facility] GLUCOSE (AUTOMATED) 2020-06-27 06:02:00 [facility] PO[facility] GLUCOSE (AUTOMATED) 2020-06-27 04:52:00 [facility] PO[facility]UCOSE (AUTOMATED) 2020-06-27 04:02:00 [facility] PO[facility] GLUCOSE (AUTOMATED) 2020-06-27 03:28:00 [facility] PO[facility]UCOSE (AUTOMATED) 2020-06-27 03:02:00 [facility] PO[facility]UCOSE (AUTOMATED) 2020-06-27 02:01:00 [facility] PO[facility] GLUCOSE (AUTOMATED) 2020-06-27 01:15:00 [facility] PO[facility]UCOSE (AUTOMATED) 2020-06-27 00:07:00 [facility] PO[facility]UCOSE (AUTOMATED) 2020-06-26 22:46:00 [facility] TRIGLYCERIDES 2020-06-26 22:07:00 Ellis Almeida [facility] POCT GLUCOSE (AUTOMATED) 2020-06-26 21:45:00 [facility] PO[facility] GLUCOSE (AUTOMATED) 2020-06-26 20:38:00 Rebeca [facility] POCT GLUCOSE (AUTOMATED) 2020-06-26 18:13:00 Rebeca [facility] POCT GLUCOSE (AUTOMATED) 2020-06-26 17:03:00 Rebeca [facility] LIPASE 2020-06-26 11:15:00 Rebeca [facility] LIPID PANEL ([id number])(TOTAL CHOLESTEROL, TRIGLYCERIDES, HDL) 2020-06-26 11:15:00 Rebeca [facility] GLYCOSYLATED HEMOGLOBIN (A1C) 2020-06-26 11:15:00 Rebeca [facility] LOW-DENSITY LIPOPROTEIN, DIRECT 2020-06-26 11:15:00 Rebeca [facility] POCT GLUCOSE (AUTOMATED) 2020-06-26 11:12:00 Rebeca [facility] CT ABDOMEN PELVIS W CONTRAST 2020-06-26 04:40:39 Kofi Beebe [facility] ASSIGNMENT OF BENEFITS 2020-06-26 03:16:02 Docto r Unassigned, [place] [facility] COVID-19 (ID NOW RAPID TESTING) 2020-06-26 03:12:00 Kofi Beebe [facility] LAB ONLY COVID INTERPRETATION 2020-06-26 03:12:00 Kofi Beebe [facility] LIPASE 2020-06-26 02:54:00 Kofi Beebe [facility] COMP. METABOLIC PANEL (40551) 2020-06-26 02:54:00 Kofi Beebe [facility] CBC WITH DIFF 2020-06-26 02:54:[address] [facility] POCT GLUCOSE (AUTOMATED) 2020-06-26 02:44:00 Aysha Beebe [facility] CONSENT/REFUSAL FOR DIAGNOSIS AND TREATMENT 2020-06-26 02:29:58 Doctor Unassigned, [place] [facility] EXTERNAL PROVIDER RECORDS 2020-02-09 05:01:00 Do ctor Unassigned, [place] [facility] Encounters Start Date/Time End Date/Time Encounter Type Admission Type Attending Clinicians Care Facility Care Department Encounter ID Source 2021-10-03 16:00:00 Inpatient Chetan Coleman [facility] [id number] [facility] 2021-09-29 17:00:00 Inpatient Chetan Coleman [facility] [id number] [facility] 2021-05-11 17:56:10 Emergency [facility] [id number] [facility] 2021-05-10 17:48:01 Emergency [facility] [id number] [facility] 2021-05-10 11:31:12 Emergency [facility] [id number] [facility] 2024-02-25 00:00:00 2024-04-01 18:24:23 Patient Secure Msg Doctor Unassigned, [place] Doctor Unassigned, [place] [facility] 1.840.114 350.1.13.10 4.2.7.2.686 [id number] [facility] 2024-02-05 00:00:00 2024-03-11 18:23:54 Patient Secure Msg Doctor Unassigned, [place] Doctor Unassigned, [place] [facility] 1.840.114 350.1.13.10 4.2.7.2.686 [id number] [facility] 2024-02-10 00:00:00 2024-02-10 14:49:57 Letter (Out) Briana Hughes [facility] 1.840.114 350.1.13.10 4.2.7.2.686 [id number] [facility] 2024-02-01 00:00:00 2024-02-08 09:28:22 Telephone Cole Guan [facility] 1.840.114 350.1.13.10 4.2.7.2.686 [id number] [facility] 2023-12-13 17:36:00 2023-12-13 21:40:00 Emergency X FORTINO FARRIS [facility] ERT [id number] [facility] 2023-12-13 17:36:00 2023-12-13 21:40:00 Emergency Fortino Farris [facility] 1.114 350.1.13.10 4.2.7.2.686 [id number] [facility] 2021-10-03 16:42:00 2021-10-03 16:42:00 Outpatient [facility] [id number] [facility] 2021-09-29 14:17:00 2021-09-29 14:17:00 Outpatient [facility] [id number] [facility] 2021-09-25 13:47:00 2021-09-25 13:47:00 Outpatient Elective Chetan Coleman [facility] [id number] [facility] 2021-09-25 13:47:00 2021-09-25 13:47:00 Outpatient [facility] [id number] [facility] 2020-11-16 13:16:00 2020-11-16 16:24:00 Emergency Nader Mendoza [facility] 1.114 350.1.13.10 4.2.7.2.686 [id number] [facility] 2020-11-16 00:00:00 2020-11-16 00:00:00 Orders Only Doctor Unassigned, [place] [facility] 1.114 350.1.13.10 4.2.7.2.686 [id number] [facility] 2020-07-28 16:00:00 2020-07-28 17:40:00 Emergency Lillian Barr [facility] 1..114 350.1.13.10 4.2.7.2.686 [id number] [facility] 2020-07-28 00:00:00 2020-07-28 00:00:00 Orders Only Doctor Unassigned, [place] [facility] 1.2.840.114 350.1.13.10 4.2.7.2.686 [id number] [facility] 2020-07-01 00:00:00 2020-07-01 00:00:00 Transition of Care Annita Correa 1.2.840.114 350.1.13.10 4.2.7.2.686 [id number] [facility] 2020-07-01 00:00:00 2020-07-01 00:00:00 Transition of Care Annita Correa 1.2.840.114 350.1.13.10 4.2.7.2.686 [id number] 2020-06-25 20:44:00 2020-06-29 19:29:00 Hospital Encounter Kofi Beebe [facility] 1.2.840.114 350.1.13.10 4.2.7.2.686 [id number] [facility] 2020-06-25 20:44:00 2020-06-29 19:29:00 [facility] 1.2.840.114 350.1.13.10 4.2.7.2.686 [id number] 2020-06-25 00:00:00 2020-06-25 00:00:00 Orders Only Doctor Unassigned, [place] [facility] 1.2.840.114 350.1.13.10 4.2.7.2.686 [id number] [facility] 2020-06-25 00:00:00 2020-06-25 00:00:00 Orders Only Doctor Unassigned, [place] [facility] 1.2840.114 350.1.13.10 4.2.7.2.686 [id number] 2020-02-09 15:04:39 2020-02-09 15:53:06 Telemedici ne Visit Cole Guan [facility] 1.2840.114 350.1.13.10 4.2.7.2.686 [id number] [facility] 2020-02-09 15:04:39 2020-02-09 15:53:06 Telemedici ne Visit Cole Guan [facility] 1.284.114 350.1.13.10 4.2.7.2.686 [id number] 2020-02-09 15:00:00 2020-02-09 15:00:00 Outpatient R GUANTRUMAN GREENIN [facility] [id number] [facility] 2020-02-09 00:00:00 2020-02-09 00:00:00 Orders Only Doctor Unassigned, [place] [facility] 1.2840.114 350.1.13.10 4.2.7.2.686 [id number] [facility] 2020-02-09 00:00:00 2020-02-09 00:00:00 Orders Only Doctor Unassigned, [place] [facility] 1.2840.114 350.1.13.10 4.2.7.2.686 [id number] 2020-02-07 00:00:00 2020-02-07 00:00:00 Telephone GuanTrumanin [facility] 1.2.840.114 350.1.13.10 4.2.7.2.686 [id number] [facility] 2020-02-07 00:00:00 2020-02-07 00:00:00 Telephone Cole Guan [facility] 1.2.840.114 350.1.13.10 4.2.7.2.686 [id number] Results Test Description Test Time Test Comments Results Result Co mments Source [facility] ABDOMEN PELVIS W [id number] 02:18:58HS:Y Indication: Pancreatitis, acute, severe ? Comparison: [...] soft tissue: No acute osseous abnormality is noted.[facility] GLUCOSE (AUTOMATED)2023-12-14 02:09:43* Test Item Value Reference Range Interpretation Comme nts POCT GLU (test code = 6370622896) 406 mg/dL 70-110 H Lab Interpretation (test cod e = 86498-5) Abnormal [facility] GLUCOSE (AUTOMATED)2023-12-14 01:36:46* Test Item Value Reference Range Interpretation Comme nts POCT GLU (test code = 6673858323) 453 mg/dL 70-110 HH Lab Interpretation (test cod e = 20404-9) Abnormal [facility] GLUCOSE (AUTOMATED)2023-12-14 01:21:40* Test Item Value Reference Range Interpretation Comme [facility] POCT GLU (test code = 0227493433) 504 mg/dL 70-110 HH Lab Interpretation (test cod e = 70851-9) [id number] 01:02:25* Test Item Value Reference Range Interpretation Comme nts TROPONIN I (test code = 7478289995) 0.005 ng/mL <=0.034 OSKAR (test code = [...] of biotin. Lab Interpretation (test code = 16145-4) Normal [facility] [id number] 00:59:47* Test Item Value Reference Range Interpretation Comme [facility] NT-proBNP (test code = 94141-6) 20 pg/mL <=125 Lab Interpretation (test cod e = 29595-2) Normal [facility] 1 [id number] 00:54:09Ordering physician: FORTINO FARRIS Clinical indication: Dyspnea. Comparison: None Technique: Chest,single view Technical quality: Adequate Findings: The lungs are clear. No pleural effusions are evident. Heart size isnormal. The superior mediastinal silhouette is unremarkable for age andprojection. 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 METABOLIC PANEL (82716)2023-12-14 00:53:36* Test Item Value Reference Range Interpretation Comme nts NA (test code = 1271186189) 129 mmol/L 135-145 L K (test code = 3762091879) 4.3 mmol/L 3.5-5.0 CL (test code = 9818843480) 93 mmol/L 98-108 L CO2 TOTAL (test code = 5762317204) 26 mmol/L 23-31 AGAP (test code = 6787648013) 10 2-16 BUN (test code = 8961568943) 25 mg/dL 7-23 H GLUCOSE (test code = 7440560689) 486 mg/dL 70-110 HH CREATININE (test code = 2160-0) 1.22 mg/dL 0.60-1.25 TOTAL BILI (test code = 1799441506) 1.6 mg/dL 0.1-1.1 H CALCIUM (test code = 9310961212) 8.8 mg/dL 8.6-10.6 T PROTEIN (test code = 9603896738) 7.9 g/dL 6.3-8.2 ALBUMIN (test code = 6427728745) 4.4 g/dL 3.5-5.0 ALK PHOS (test code = 9696931825) 78 U/L 34-122 ALTv (test code = 1742-6) 145 U/L 5-50 H AST(SGOT) (test code = 6302121879) 52 U/L 13-40 H eGFR (test code = 01886-8) 75.0 mL/min/1.73m2 CKD-EPI eGFR (2020). Assuming creatinine has been stable day-to-day for at least three months, the eGFR indicates Category G2 (60 - 89 mL/min/1.73 m2) Lab Interpretation (test code = 97370-5) Abnormal [facility] 00:49:27* Test Item Value Reference Range Interpretation Comme nts LIPASE (test code = 1157978224) 1623 U/L 0-220 H Lab Interpretation (test cod e = 64536-0) Abnormal [facility] WITH [id number] 00:31:25* Test Item Value Reference Range Interpretation [...] g/dL 31.2-35.0 H RDW-SD (test code = 08398-6) 33.1 fL 38.5-51.6 L RDW-CV (test code = 788-0) 11.4 % 12.1-15.4 L PLT (test code = 777-3) 167 150-328 MPV (test code = 61066-9) 10.0 fL 9.8-13.0 NRBC/100 WBC (test code = 2185329296) 0.0 0.0-10.0 NRBC x10^3 (test code = 3769629033) See_Comment [Automated messa ge] The system which generated this result transmitted reference range: 10*3/?L. The reference range was not used to interpret this result as normal/abnormal. GRAN MAT (NEUT) % (test code = 770-8) 63.5 % IMM GRAN % (test code = 2335740826) 0.80 % LYMPH % (test code = 736-9) 27.2 % MONO % (test code = 5905-5) 6.1 % EOS % (test code = 713-8) 1.4 % BASO % (test code = 706-2) 1.0 % GRAN MAT x10^3(ANC) (test code = 2538926509) 3.13 10*3/uL 1.99-6.95 IMM GRAN x10^3 (test code = 3690203145) 0.04 10*3/uL 0.00-0.06 LYMPH x10^3 (test code = 731-0) 1.34 10*3/uL 1.09-3.23 MONO x10^3 (test code = 742-7) 0.30 10*3/uL 0.36-1.02 L EOS x10^3 (test code = 711-2) 0.07 10*3/uL 0.06-0.53 BASO x10^3 (test code = 704-7) 0.05 10*3/uL 0.01-0.09 Lab Interpretation (test code = 29510-2) Abnormal [facility] HospitalGlucose [id number] 20:01:00* Test Item Value Reference Range Interpretation Comme nts Glucose Fingerstick (test code = WGLUC) 247 mg/dL 70-115 [employer] ASSOCIATE Eug giacomo Lum Glucose Bjokiqytbse1244-07-62 17:29:00* Test Item Value Reference Range Interpretation Comme nts Glucose Fingerstick (test code = WGLUC) 296 mg/dL 70-115 [employer] ASSOCIATE MADELINE NUNES T Glucose Uwkywzjjmqj4481-26-01 14:49:00* Test Item Value Reference Range Interpretation Comme nts Glucose Fingerstick (test code = WGLUC) 334 mg/dL 70-115 [employer] SH[employer] ASSOCIATE And rew Smauel RN or OR MICRO Ygmibqsk9798-67-49 16:15:00* Test Item Value Reference Range Interpretation [...] the possible exception of Ceftaroline. LEFT HANDGlucose Jcbzhcpahuw4611-22-10 15:52:00* Test Item Value Reference Range Interpretation Comme nts Glucose Fingerstick (test code = WGLUC) 199 mg/dL 70-115 [employer] SH[employer] ASSOCIATE And rew Svetlik [id number] 19:20:17* Test Item Value Reference Range Interpretation Comme nts APPEARANCE (test code = 9744292964) Clear Clear COLOR (test code = 6154697041) Mindy Yellow A PH (test code = 7402645645) 4.8-8.0 SP GRAVITY (test code = 8121273426) 1.003-1.030 GLU U QUAL (test code = 8069049647) 150 mg/dL Normal A BLOOD (test code = 9784824295) Negative Negative KETONES (test code = 9535124862) Negative Negative PROTEIN (test code = 2887-8) Negative Negative UROBILIN (test code = 7692555348) Normal Normal BILIRUBIN (test code = 4421431190) Negative Negative NITRITE (test code = 2031454374) Negative Negative LEUK BURTON (test code = 4387847720) Negative Negative RBC/HPF (test code = 7044211657) See_Comment [Automated [employer] ge] The system which generated this result transmitted reference range: 0 - 3 HPF. The reference range was not used to interpret this result as normal/abnormal. WBC/HPF (test code = 4937478629) See_Comment [Automated [employer] ge] The system which generated this result transmitted reference range: 0 - 5 HPF. The reference range was not used to interpret this result as normal/abnormal. BACTERIA (test code = 1250624668) Negative Negative MUCOUS (test code = 5258184509) Moderate Negative LPF A Lab Interpretation (test code = 83126-9) Abnormal [facility]MAGN[facility]UM2021-05-08 19:18:04* Test Item Value Reference Range Interpretation Comme nts MAGNESIUM (test code = 7116092170) 1.9 mg/dL 1.7-2.4 Lab Interpretation (test cod e = 82407-7) [facility]OL[facility] PAN[facility] ([id number])2020-11-16 19:17:44* Test Item Value Reference Range Interpretation Comme nts NA (test code = 6432276245) 138 mmol/L 135-145 K (test code = 3889407866) 3.9 mmol/L 3.5-5.0 CL (test code = 3326545093) 100 mmol/L 98-108 CO2 TOTAL (test code = 9580182271) 28 mmol/L 23-31 AGAP (test code = 5779371315) 2-16 BUN (test code = 6963670220) 15 mg/dL 7-23 GLUCOSE (test code = 8616927648) 215 mg/dL 70-110 H CREATININE (test code = 2608446939) 0.88 mg/dL 0.60-1.25 TOTAL BILI (test code = 1028588223) 1.6 mg/dL 0.1-1.1 H CALCIUM (test code = 3555748292) 9.6 mg/dL 8.6-10.6 T PROTEIN (test code = 4801506613) 7.4 g/dL 6.3-8.2 ALBUMIN (test code = 7548533190) 4.6 g/dL 3.5-5.0 ALK PHOS (test code = 1526266177) 90 U/L 34-122 ALTv (test code = 1742-6) 15 U/L 5-50 AST(SGOT) (test code = 9016490986) 17 U/L 13-40 eGFR (test code = 0092657610) mL/min/1.73m2 OSKAR (test code = OSKAR) Association [...] imaging tests). Lab Interpretation (test code = 36802-7) [facility]normal [facility] 19:17:23* Test Item Value Reference Range Interpretation Comme nts LIPASE (test code = 2767983613) 87 U/L 0-220 Lab Interpretation (test cod e = 25628-6) Normal [facility]CB WITH [id number] 19:06:43* Test Item Value Reference Range Interpretation [...] 33.6 g/dL 31.2-35.0 RDW-SD (test code = 12542-5) 39.0 fL 38.5-51.6 RDW-CV (test code = 788-0) 13.9 % 12.1-15.4 PLT (test code = 777-3) See_Comment [Automated messa ge] The system which generated this result transmitted reference range: 150 - 328 10*3/?L. The reference range was not used to interpret this result as normal/abnormal. MPV (test code = 98595-3) 9.4 fL 9.8-13.0 L NRBC/100 WBC (test code = 7630905397) See_Comment [Automated [place] ssage] The system which generated this result transmitted reference range: 0.0 - 10.0 /100 WBCs. The reference range was not used to interpret this result as normal/abnormal. NRBC x10^3 (test code = 0650578255) <0.01 See_Comment [Automated messa ge] The system which generated this result transmitted reference range: 10*3/?L. The reference range was not used to interpret this result as normal/abnormal. GRAN MAT (NEUT) % (test code = 770-8) 79.9 % IMM GRAN % (test code = 2420572976) 0.60 % LYMPH % (test code = 736-9) 14.4 % MONO % (test code = 5905-5) 3.9 % EOS % (test code = 713-8) 0.6 % BASO % (test code = 706-2) 0.6 % GRAN MAT x10^3(ANC) (test code = 6209484417) 7.25 10*3/uL 1.99-6.95 H IMM GRAN x10^3 (test code = 4928380933) 0.05 10*3/uL 0.00-0.06 LYMPH x10^3 (test code = 731-0) 1.30 10*3/uL 1.09-3.23 MONO x10^3 (test code = 742-7) 0.35 10*3/uL 0.36-1.02 L EOS x10^3 (test code = 711-2) 0.05 10*3/uL 0.06-0.53 L BASO x10^3 (test code = 704-7) 0.05 10*3/uL 0.01-0.09 Lab Interpretation (test code = 34342-6) Abnormal [facility] GLUCOSE (AUTOMATED)2020-11-16 18:27:21* Test Item Value Reference Range Interpretation Comme nts POCT GLU (test code = 6603323391) 218 mg/dL 70-110 H Lab Interpretation (test cod e = 96739-6) Abnormal [facility] GLUCOSE (AUTOMATED)2020-06-29 23:37:00* Test Item Value Reference Range Interpretation Comme nts POCT GLU (test code = 5224829289) 217 mg/dL 70-110 H Lab Interpretation (test cod e = 31025-4) Abnormal [facility] GLUCOSE (AUTOMATED)2020-06-29 18:58:00* Test Item Value Reference Range Interpretation Comme nts POCT GLU (test code = 3918093940) 214 mg/dL 70-110 H Lab Interpretation (test cod e = 89005-6) Abnormal [facility] GLUCOSE (AUTOMATED)2020-06-29 14:15:00* Test Item Value Reference Range Interpretation Comme nts POCT GLU (test code = 2873510327) 182 mg/dL 70-110 H Lab Interpretation (test cod e = 06053-4) Abnormal [facility] with Ttjyapzjgirx0775-13-49 13:44:00* Test Item Value Reference Range Interpretation [...] 34.7 g/dL 31.2-35 RDW-SD (test code = 55457-4) 37.0 fL 38.5-51.6 L RDW-CV (test code = 788-0) 12.2 % 12.1-15.4 PLT (test code = 777-3) See_Comment L [Automated messa ge] The system which generated this result transmitted reference range: 150 - 328 10*3/?L. The reference range was not used to interpret this result as normal/abnormal. MPV (test code = 50329-6) 9.9 fL 9.8-13 NRBC/100 WBC (test code = 4517958795) See_Comment [Automated me ssage] The system which generated this result transmitted reference range: 0.0 - 10.0 /100 WBCs. The reference range was not used to interpret this result as normal/abnormal. NRBC x10^3 (test code = 9265020994) <0.01 See_Comment [Automated messa ge] The system which generated this result transmitted reference range: 10*3/?L. The reference range was not used to interpret this result as normal/abnormal. GRAN MAT (NEUT) % (test code = 770-8) 61.0 % IMM GRAN % (test code = 8895876510) 0.30 % LYMPH % (test code = 736-9) 29.5 % MONO % (test code = 5905-5) 5.9 % EOS % (test code = 713-8) 2.4 % BASO % (test code = 706-2) 0.9 % GRAN MAT x10^3(ANC) (test code = 7638191856) 2.07 10*3/uL 1.99-6.95 IMM GRAN x10^3 (test code = 6326264893) <0.03 0-0.06 LYMPH x10^3 (test code = 731-0) 1.00 10*3/uL 1.09-3.23 L MONO x10^3 (test code = 742-7) 0.20 10*3/uL 0.36-1.02 L EOS x10^3 (test code = 711-2) 0.08 10*3/uL 0.06-0.53 BASO x10^3 (test code = 704-7) 0.03 10*3/uL 0.01-0.09 Lab Interpretation (test code = 93651-3) [facility]normal [facility]2020-12-19 13:22:00* Test Item Value Reference Range Interpretation Comme nts TRIG (test code = 7734246787) 468 mg/dL 30-170 H Lab Interpretation (test cod e = 03656-9) [facility]normal [facility] (NA, K, CL, CO2, GLUCOSE, BUN, CREATININE, CA)2020-06-29 13:12:00* Test Item Value Reference Range Interpretation Comme nts NA (test code = 9377887157) 139 mmol/L 135-145 K (test code = 1879912769) 3.6 mmol/L 3.5-5 CL (test code = 9360409684) 104 mmol/L 98-108 CO2 TOTAL (test code = 3998088264) 25 mmol/L 23-31 AGAP (test code = 0317209247) 2-16 BUN (test code = 5906916422) 4 mg/dL 7-23 L GLUCOSE (test code = 8531195063) 163 mg/dL 70-110 H CREATININE (test code = 4429109283) 0.74 mg/dL 0.6-1.25 CALCIUM (test code = 8572587329) 9.4 mg/dL 8.6-10.6 eGFR Calculation (Non-) (test code = 6839487783) mL/min/1.73m2 eGFR Calculation () (test code = 2096861345) mL/min/1.73m2 OSKAR (test code = OSKAR) Association [...] imaging tests). Lab Interpretation (test code = 59276-4) Abnormal [facility] / [facility] - DRUG SCREEN [id number] 03:44:00* Test Item Value Reference Range Interpretation Comme nts BENZO U (test code = 5989471117) Presumptive Positive Negative A AUDREY U (test code = 5643931740) Negative Negative AMPHET (test code = 4795500270) Negative Negative THC (test code = 0001604235) Presumptive Positive Negative A Confirmation of Presumptive Positive THC result requires physician order. METHADONE (test code = 0469909066) Negative Negative Meth U (test code = 3439613647) Negative Negative OPIATES (test code = 3063327339) Presumptive Positive Negative A Cocaine Metabolite (test code = 3158881038) Negative Negative PROPOXY (test code = 8523577804) Negative Negative Tric U (test code = 9219499134) Presumptive Positive Negative A Confirmation of Presumptive Positive TCA result requires physician order and this will be sent to reference lab. PCP (test code = 3552567614) Negative Negative OXYCOD (test code = 3765500819) Negative Negative OSKAR (test code = OSKAR) [...] legal testing). 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>400 Fatalities Reported [facility] HospitalPOCT [facility]SE (AUTOMATED)2020-06-28 23:30:00* Test Item Value Reference Range Interpretation Comme nts POCT GLU (test code = 3694357204) 234 mg/dL 70-110 H Lab Interpretation (test cod e = 66786-8) Abnormal [facility] GLUCOSE (AUTOMATED)2020-06-28 19:09:00* Test Item Value Reference Range Interpretation Comme nts POCT GLU (test code = 0936758166) 195 mg/dL 70-110 H Lab Interpretation (test cod e = 05459-7) Abnormal [facility] GLUCOSE (AUTOMATED)2020-06-28 18:16:00* Test Item Value Reference Range Interpretation Comme nts POCT GLU (test code = 4827687102) 113 mg/dL 70-110 H Lab Interpretation (test cod e = 28231-2) [facility]normal [facility] HospitalMAGNESIUM2020-12-18 15:54:00* Test Item Value Reference Range Interpretation Comme nts MAGNESIUM (test code = 4312805152) 1.7 mg/dL 1.7-2.4 Lab Interpretation (test cod e = 88460-6) Normal [facility] GLUCOSE (AUTOMATED)2020-06-28 14:51:00* Test Item Value Reference Range Interpretation Comme nts POCT GLU (test code = 7704734145) 94 mg/dL 70-110 Lab Interpretation (test cod e = 78951-4) Normal [facility] with Ltmtgsxnhlwx7499-84-40 14:08:00* Test Item Value Reference Range Interpretation [...] 34.7 g/dL 31.2-35 RDW-SD (test code = 16759-3) 36.2 fL 38.5-51.6 L RDW-CV (test code = 788-0) 11.9 % 12.1-15.4 L PLT (test code = 777-3) See_Comment L [Automated messa ge] The system which generated this result transmitted reference range: 150 - 328 10*3/?L. The reference range was not used to interpret this result as normal/abnormal. MPV (test code = 28070-1) 10.0 fL 9.8-13 NRBC/100 WBC (test code = 9755673569) See_Comment [Automated [place] ssage] The system which generated this result transmitted reference range: 0.0 - 10.0 /100 WBCs. The reference range was not used to interpret this result as normal/abnormal. NRBC x10^3 (test code = 6281451706) <0.01 See_Comment [Automated messa ge] The system which generated this result transmitted reference range: 10*3/?L. The reference range was not used to interpret this result as normal/abnormal. GRAN MAT (NEUT) % (test code = 770-8) 59.7 % IMM GRAN % (test code = 6248448526) 0.30 % LYMPH % (test code = 736-9) 33.3 % MONO % (test code = 5905-5) 4.8 % EOS % (test code = 713-8) 1.3 % BASO % (test code = 706-2) 0.6 % GRAN MAT x10^3(ANC) (test code = 9942436179) 1.86 10*3/uL 1.99-6.95 L IMM GRAN x10^3 (test code = 8712696268) <0.03 0-0.06 LYMPH x10^3 (test code = 731-0) 1.04 10*3/uL 1.09-3.23 L MONO x10^3 (test code = 742-7) 0.15 10*3/uL 0.36-1.02 L EOS x10^3 (test code = 711-2) 0.04 10*3/uL 0.06-0.53 L BASO x10^3 (test code = 704-7) <0.03 0.01-0.09 Lab Interpretation (test code = 36531-6) Abnormal [facility] Metabolic Panel (NA, K, CL, CO2, GLUCOSE, BUN, CREATININE, CA)2020-06-28 13:02:00* Test Item Value Reference Range Interpretation Comme nts NA (test code = 4856527617) 140 mmol/L 135-145 K (test code = 9902917323) 3.0 mmol/L 3.5-5 L CL (test code = 1570400171) 106 mmol/L 98-108 CO2 TOTAL (test code = 9323171989) 25 mmol/L 23-31 AGAP (test code = 4231095568) 2-16 BUN (test code = 3261935700) <2 7-23 L GLUCOSE (test code = 3590282335) 107 mg/dL 70-110 CREATININE (test code = 0746004591) 0.59 mg/dL 0.6-1.25 L CALCIUM (test code = 5572491987) 8.9 mg/dL 8.6-10.6 eGFR Calculation (Non-) (test code = 4924337847) mL/min/1.73m2 eGFR Calculation () (test code = 0332652975) mL/min/1.73m2 OSKAR (test code = OSKAR) Association [...] imaging tests). Lab Interpretation (test code = 74807-1) [facility]normal [facility]TRIGLY[facility]ERIDES2020-12-18 13:02:00* Test Item Value Reference Range Interpretation Comme nts TRIG (test code = 9719061374) 519 mg/dL 30-170 H Lab Interpretation (test cod e = 51631-3) Abnormal [facility] HospitalLIPASE2020-12-18 12:45:00* Test Item Value Reference Range Interpretation Comme nts LIPASE (test code = 2139071729) 27 U/L 0-220 Lab Interpretation (test cod e = 13379-9) Normal [facility]PO[facility] (AUTOMATED)2020-06-28 11:51:00* Test Item Value Reference Range Interpretation Comme nts POCT GLU (test code = 6851888931) 111 mg/dL 70-110 H Lab Interpretation (test cod e = 63384-6) Abnormal [facility] HospitalLAB ONLY COVID ETKHGGARDHOWZP5999-95-48 11:31:00COVID DMT InterpretationInterpretation/Recommendations: Molecular NAAT Tests for [...] all COVID-19 testingthe patient has had at [facility], including molecular NAAT testing (more commonly known as PCR testing and Rapid ID Now testing) and antibody testing. It does not take into account any testing that a patient has had outside of the [facility] medical record. [facility] LABORATORY SERVICESCOVID FvmunwkADSZ-OfB-8 Rapid ID NOW (no units) ? ? Date ? Value ? 06/25/2020 ? Not Detected ? [facility] ([facility])2020-06-28 10:16:00* Test Item Value Reference Range Interpretation Comme nts POCT GLU (test code = 0864458249) 109 mg/dL 70-110 Lab Interpretation (test cod e = 30217-2) Normal [facility] GLUCOSE (AUTOMATED)2020-06-28 09:08:00* Test Item Value Reference Range Interpretation Comme nts POCT GLU (test code = 6307293780) 152 mg/dL 70-110 H Lab Interpretation (test cod e = 42633-9) Abnormal [facility] GLUCOSE (AUTOMATED)2020-06-28 06:20:00* Test Item Value Reference Range Interpretation Comme nts POCT GLU (test code = 5306667262) 84 mg/dL 70-110 Lab Interpretation (test cod e = 07013-6) Normal [facility] GLUCOSE (AUTOMATED)2020-06-28 04:47:00* Test Item Value Reference Range Interpretation Comme nts POCT GLU (test code = 3435803498) 95 mg/dL 70-110 Lab Interpretation (test cod e = 30636-4) Normal [facility] GLUCOSE (AUTOMATED)2020-06-28 03:43:00* Test Item Value Reference Range Interpretation Comme nts POCT GLU (test code = 0746026392) 123 mg/dL 70-110 H Lab Interpretation (test cod e = 70727-8) Abnormal [facility] GLUCOSE (AUTOMATED)2020-06-28 02:47:00* Test Item Value Reference Range Interpretation Comme nts POCT GLU (test code = 2362874441) 121 mg/dL 70-110 H Lab Interpretation (test cod e = 01033-2) Abnormal [facility] GLUCOSE (AUTOMATED)2020-06-28 02:17:00* Test Item Value Reference Range Interpretation Comme nts POCT GLU (test code = 5455259267) 94 mg/dL 70-110 Lab Interpretation (test cod e = 75157-0) Normal [facility]TR[facility]2020-12-18 01:21:00* Test Item Value Reference Range Interpretation Comme nts TRIG (test code = 8023786618) 647 mg/dL 30-170 H Lab Interpretation (test cod e = 18549-6) Abnormal [facility] GLUCOSE (AUTOMATED)2020-06-27 23:29:00* Test Item Value Reference Range Interpretation Comme nts POCT GLU (test code = 5128183028) 87 mg/dL 70-110 Lab Interpretation (test cod e = 45686-0) Normal [facility] GLUCOSE (AUTOMATED)2020-06-27 21:36:00* Test Item Value Reference Range Interpretation Comme nts POCT GLU (test code = 7264273185) 85 mg/dL 70-110 Lab Interpretation (test cod e = 52329-2) Normal [facility] GLUCOSE (AUTOMATED)2020-06-27 19:55:00* Test Item Value Reference Range Interpretation Comme nts POCT GLU (test code = 7852942554) 91 mg/dL 70-110 Lab Interpretation (test cod e = 94889-2) Normal [facility] GLUCOSE (AUTOMATED)2020-06-27 19:01:00* Test Item Value Reference Range Interpretation Comme nts POCT GLU (test code = 9864834519) 125 mg/dL 70-110 H Lab Interpretation (test cod e = 26497-2) Abnormal [facility] GLUCOSE (AUTOMATED)2020-06-27 17:46:00* Test Item Value Reference Range Interpretation Comme nts POCT GLU (test code = 6482677652) 122 mg/dL 70-110 H Lab Interpretation (test cod e = 47971-2) Abnormal [facility] GLUCOSE (AUTOMATED)2020-06-27 16:56:00* Test Item Value Reference Range Interpretation Comme nts POCT GLU (test code = 6719158250) 98 mg/dL 70-110 Lab Interpretation (test cod e = 37145-3) Normal [facility] GLUCOSE (AUTOMATED)2020-06-27 14:47:00* Test Item Value Reference Range Interpretation Comme nts POCT GLU (test code = 3251330370) 209 mg/dL 70-110 H Lab Interpretation (test cod e = 49017-7) Abnormal [facility] GLUCOSE (AUTOMATED)2020-06-27 14:47:00* Test Item Value Reference Range Interpretation Comme nts POCT GLU (test code = 2918658333) 181 mg/dL 70-110 H Lab Interpretation (test cod e = 24625-1) Abnormal [facility] with Maexdxnsrksy9728-81-70 12:55:00* Test Item Value Reference Range Interpretation [...] 35.0 g/dL 31.2-35 RDW-SD (test code = 57465-9) 35.6 fL 38.5-51.6 L RDW-CV (test code = 788-0) 11.8 % 12.1-15.4 L PLT (test code = 777-3) See_Comment L [Automated messa ge] The system which generated this result transmitted reference range: 150 - 328 10*3/?L. The reference range was not used to interpret this result as normal/abnormal. MPV (test code = 30219-1) 9.9 fL 9.8-13 NRBC/100 WBC (test code = 7868191217) See_Comment [Automated [place] ssage] The system which generated this result transmitted reference range: 0.0 - 10.0 /100 WBCs. The reference range was not used to interpret this result as normal/abnormal. NRBC x10^3 (test code = 1385667380) <0.01 See_Comment [Automated messa ge] The system which generated this result transmitted reference range: 10*3/?L. The reference range was not used to interpret this result as normal/abnormal. GRAN MAT (NEUT) % (test code = 770-8) 59.3 % IMM GRAN % (test code = 0798208163) 0.30 % LYMPH % (test code = 736-9) 33.7 % MONO % (test code = 5905-5) 4.7 % EOS % (test code = 713-8) 1.3 % BASO % (test code = 706-2) 0.7 % GRAN MAT x10^3(ANC) (test code = 7018601523) 1.78 10*3/uL 1.99-6.95 L IMM GRAN x10^3 (test code = 6284434997) <0.03 0-0.06 LYMPH x10^3 (test code = 731-0) 1.01 10*3/uL 1.09-3.23 L MONO x10^3 (test code = 742-7) 0.14 10*3/uL 0.36-1.02 L EOS x10^3 (test code = 711-2) 0.04 10*3/uL 0.06-0.53 L BASO x10^3 (test code = 704-7) <0.03 0.01-0.09 Lab Interpretation (test code = 13078-2) Abnormal [facility] GLUCOSE (AUTOMATED)2020-06-27 12:26:00* Test Item Value Reference Range Interpretation Comme nts POCT GLU (test code = 2219945711) 238 mg/dL 70-110 H Lab Interpretation (test cod e = 68052-6) Abnormal [facility] GLUCOSE (AUTOMATED)2020-06-27 12:20:00* Test Item Value Reference Range Interpretation Comme nts POCT GLU (test code = 2332635675) 216 mg/dL 70-110 H Lab Interpretation (test cod e = 88211-9) [facility]normal [facility]2020-[facility]-17 12:03:00* Test Item Value Reference Range Interpretation Comme nts TRIG (test code = 4731846078) 810 mg/dL 30-170 H Lab Interpretation (test cod e = 65823-0) Abnormal [facility] Metabolic Panel (NA, K, CL, CO2, GLUCOSE, BUN, CREATININE, CA)2020-06-27 11:56:00* Test Item Value Reference Range Interpretation Comme nts NA (test code = 2771008940) 135 mmol/L 135-145 K (test code = 8383240504) 3.6 mmol/L 3.5-5 CL (test code = 7119578241) 104 mmol/L 98-108 CO2 TOTAL (test code = 4770368271) 23 mmol/L 23-31 AGAP (test code = 1662642553) 2-16 BUN (test code = 6172967970) 5 mg/dL 7-23 L GLUCOSE (test code = 9299873993) 191 mg/dL 70-110 H CREATININE (test code = 2655846145) 0.56 mg/dL 0.6-1.25 L CALCIUM (test code = 6032812910) 8.9 mg/dL 8.6-10.6 eGFR Calculation (Non-) (test code = 6468020952) mL/min/1.73m2 eGFR Calculation () (test code = 0470440867) mL/min/1.73m2 OSKAR (test code = OSKAR) Association [...] imaging tests). Lab Interpretation (test code = 11896-1) [facility] 11:55:00* Test Item Value Reference Range Interpretation Comme [facility] LIPASE (test code = 5038839125) 40 U/L 0-220 Lab Interpretation (test cod e = 34771-7) Normal [facility] ([facility]ATED)2020-06-27 09:09:00* Test Item Value Reference Range Interpretation Comme [facility] POCT GLU (test code = 5610618613) 185 mg/dL 70-110 H Lab Interpretation (test cod e = 79453-0) Abnormal [facility] GLUCOSE (AUTOMATED)2020-06-27 08:09:00* Test Item Value Reference Range Interpretation Comme nts POCT GLU (test code = 1837820402) 124 mg/dL 70-110 H Lab Interpretation (test cod e = 59353-3) Abnormal [facility] GLUCOSE (AUTOMATED)2020-06-27 07:11:00* Test Item Value Reference Range Interpretation Comme nts POCT GLU (test code = 0918518665) 104 mg/dL 70-110 Lab Interpretation (test cod e = 14523-6) Normal [facility] GLUCOSE (AUTOMATED)2020-06-27 06:04:00* Test Item Value Reference Range Interpretation Comme nts POCT GLU (test code = 2773183949) 97 mg/dL 70-110 Lab Interpretation (test cod e = 67285-9) Normal [facility] GLUCOSE (AUTOMATED)2020-06-27 04:54:00* Test Item Value Reference Range Interpretation Comme nts POCT GLU (test code = 7559682928) 54 mg/dL 70-110 L Lab Interpretation (test cod e = 95913-4) Abnormal [facility] GLUCOSE (AUTOMATED)2020-06-27 04:04:00* Test Item Value Reference Range Interpretation Comme nts POCT GLU (test code = 8776200098) 88 mg/dL 70-110 Lab Interpretation (test cod e = 32457-5) Normal [facility] GLUCOSE (AUTOMATED)2020-06-27 03:32:00* Test Item Value Reference Range Interpretation Comme nts POCT GLU (test code = 0416362656) 104 mg/dL 70-110 Lab Interpretation (test cod e = 71645-6) Normal [facility] GLUCOSE (AUTOMATED)2020-06-27 03:05:00* Test Item Value Reference Range Interpretation Comme nts POCT GLU (test code = 8544078841) 68 mg/dL 70-110 L Lab Interpretation (test cod e = 69321-4) Abnormal [facility] GLUCOSE (AUTOMATED)2020-06-27 02:05:00* Test Item Value Reference Range Interpretation Comme nts POCT GLU (test code = 8312834897) 113 mg/dL 70-110 H Lab Interpretation (test cod e = 66303-0) Abnormal [facility] GLUCOSE (AUTOMATED)2020-06-27 01:21:00* Test Item Value Reference Range Interpretation Comme nts POCT GLU (test code = 4316365682) 122 mg/dL 70-110 H Lab Interpretation (test cod e = 13613-4) Abnormal [facility] GLUCOSE (AUTOMATED)2020-06-27 00:09:00* Test Item Value Reference Range Interpretation Comme nts POCT GLU (test code = 5356364398) 125 mg/dL 70-110 H Lab Interpretation (test cod e = 10122-0) [facility]normal [facility] 23:47:00* Test Item Value Reference Range Interpretation Comme nts TRIG (test code = 5539357951) 1086 mg/dL 30-170 H Lab Interpretation (test cod e = 26633-9) Abnormal [facility] GLUCOSE (AUTOMATED)2020-06-26 23:12:00* Test Item Value Reference Range Interpretation Comme nts POCT GLU (test code = 6780633237) 175 mg/dL 70-110 H Lab Interpretation (test cod e = 76974-4) Abnormal [facility] GLUCOSE (AUTOMATED)2020-06-26 23:12:00* Test Item Value Reference Range Interpretation Comme nts POCT GLU (test code = 3699222379) 81 mg/dL 70-110 Lab Interpretation (test cod e = 56555-7) Normal [facility] GLUCOSE (AUTOMATED)2020-06-26 22:50:00* Test Item Value Reference Range Interpretation Comme nts POCT GLU (test code = 8007350210) 88 mg/dL 70-110 Lab Interpretation (test cod e = 94510-7) Normal [facility] GLUCOSE (AUTOMATED)2020-06-26 22:26:00* Test Item Value Reference Range Interpretation Comme nts POCT GLU (test code = 5833891315) 91 mg/dL 70-110 Lab Interpretation (test cod e = 60328-2) Normal [facility] GLUCOSE (AUTOMATED)2020-06-26 17:06:00* Test Item Value Reference Range Interpretation Comme nts POCT GLU (test code = 8828301556) 227 mg/dL 70-110 H Lab Interpretation (test cod e = 97969-5) [facility]normal [facility] HospitalLOW-DENSITY LIPOPROTEIN, [id number] 16:31:00* Test Item Value Reference Range Interpretation Comme nts dLDL Chol (test code = 89936-7) <30 See_Comment [Automated [employer] ge] The system which generated this result transmitted reference range: <130 mg/dL. The reference range was not used to interpret this result as normal/abnormal. Lab Interpretation (test code = 26143-0) Normal [facility] (52200)(TOTAL CHOLESTEROL, TRIGLYCERIDES, HDL)2020-06-26 13:16:00* Test Item Value Reference Range Interpretation Comme nts CHOL (test code = 0464981249) 217 mg/dL 120-200 H HDL (test code = 5045963986) 13 mg/dL >40 L HDLC RATIO (test code = 5200255914) See_Comment H [Automated [employer] BEKIZ] The system which generated this result transmitted reference range: <=5.0. The reference range was not used to interpret this result as normal/abnormal. TRIG (test code = 8098778320) 1337 mg/dL 30-170 H LDL CHOL (test code = 03021-4) Unable to calcul ate LDL due to elevated triglyceride level greater than 400 mg/dL. VLDL (test code = 3153746952) Unable to calcul ate VLDL due to elevated triglyceride level greater than 710 mg/dL. Lab Interpretation (test code = 00415-9) Abnormal [facility]2020-[facility] 13:03:00* Test Item Value Reference Range Interpretation Comme nts LIPASE (test code = 0873037323) 60 U/L 0-220 Lab Interpretation (test cod e = 48192-9) Normal [facility]ATED HEMOGLOBIN (A1C)2020-06-26 12:46:00* Test Item Value Reference Range Interpretation Comme nts HGB A1C (test code = 4548-4) 9.2 % 4-6 H OSKAR (test code = OSKAR) %A1C (NGSP) Interpretation (ADA)4.8-5.6 ? ? Normal or (Non-Diabetic Range)5.7-6.4 ? ? Increased Risk (Pre-Diabetic)>6.5 ?Diabetes Indicated Lab Interpretation (test code = 95687-5) Abnormal [facility] (AUTOMATED)2020-06-26 11:24:00* Test Item Value Reference Range Interpretation Comme nts POCT GLU (test code = 0395054326) 209 mg/dL 70-110 H Lab Interpretation (test cod e = 54064-2) Abnormal [facility] ABD[facility]EN PELVIS W [id number] 05:55:56Impression: 1. Peripancreatic inflammation, likely representing acute [...] demonstrated in the upper abdomen. RL: 2824AFC: 37510 End of Report Exam: CT Abdomen and [...] demonstrated in the upper abdomen. RL: 2824AFC: 34164Feq of Report [facility] (ID NOW RAPID TESTING)2020-06-26 03:44:00* Test Item Value Reference Range Interpretation Comme nts SARS-CoV-2 Rapid ID NOW (test code = 53390-2) Not Detected Not Detected OSKAR (test code = OSKAR) ID NOW COVID-19 As say is an isothermal nucleic acid amplification test intended for the qualitative detection of nucleic acid from SARS-CoV-2 viral RNA in nasopharyngeal (INFORMATION ASSURANCE SPECIALIST) specimens. It is used under Emergency [...] clinically indicated. Lab Interpretation (test code = 40014-4) Normal [facility] METABOLIC PANEL (92816)2020-06-26 03:17:00* Test Item Value Reference Range Interpretation Comme nts NA (test code = 5869033696) 136 mmol/L 135-145 K (test code = 0786897828) 4.3 mmol/L 3.5-5 CL (test code = 7307039834) 97 mmol/L 98-108 L CO2 TOTAL (test code = 5686045133) 31 mmol/L 23-31 AGAP (test code = 8884588043) 2-16 BUN (test code = 6479068095) 7 mg/dL 7-23 GLUCOSE (test code = 7520766764) 220 mg/dL 70-110 H CREATININE (test code = 8591701385) 0.68 mg/dL 0.6-1.25 TOTAL BILI (test code = 1186007813) 1.6 mg/dL 0.1-1.1 H CALCIUM (test code = 4519657707) 9.4 mg/dL 8.6-10.6 T PROTEIN (test code = 8377295704) 7.6 g/dL 6.3-8.2 ALBUMIN (test code = 6411809170) 4.4 g/dL 3.5-5 ALK PHOS (test code = 4380874689) 103 U/L 34-122 ALTv (test code = 1742-6) 113 U/L 5-50 H AST(SGOT) (test code = 9376772745) 87 U/L 13-40 H eGFR Calculation (Non-) (test code = 2275779315) mL/min/1.73m2 eGFR Calculation () (test code = 0069696045) mL/min/1.73m2 OSKAR (test code = OSKAR) Association [...] imaging tests). Lab Interpretation (test code = 43669-4) Abnormal [facility]2020-12-16 03:16:00* Test Item Value Reference Range Interpretation Comme nts LIPASE (test code = 2601870883) 57 U/L 0-220 Lab Interpretation (test cod e = 69560-1) Normal [facility] WITH [id number] 03:00:00* Test Item Value Reference Range Interpretation Comme nts WBC (test code = 6690-2) See_Comment [Automated Get[employer]ids] The system which generated this result transmitted reference range: 4.20 - 10.70 10*3/?L. The reference range was not used to interpret this result as normal/abnormal. RBC (test code = 789-8) See_Comment [Automated [employer] BEKIZ] The system which generated this result transmitted [...] g/dL 31.2-35 H RDW-SD (test code = 06598-4) 35.3 fL 38.5-51.6 L RDW-CV (test code = 788-0) 11.9 % 12.1-15.4 L PLT (test code = 777-3) See_Comment L [Automated messa ge] The system which generated this result transmitted reference range: 150 - 328 10*3/?L. The reference range was not used to interpret this result as normal/abnormal. MPV (test code = 03923-9) 9.3 fL 9.8-13 L NRBC/100 WBC (test code = 0015722529) See_Comment [Automated [place] ssage] The system which generated this result transmitted reference range: 0.0 - 10.0 /100 WBCs. The reference range was not used to interpret this result as normal/abnormal. NRBC x10^3 (test code = 5489894611) <0.01 See_Comment [Automated messa ge] The system which generated this result transmitted reference range: 10*3/?L. The reference range was not used to interpret this result as normal/abnormal. GRAN MAT (NEUT) % (test code = 770-8) 74.6 % IMM GRAN % (test code = 0891665250) 0.30 % LYMPH % (test code = 736-9) 18.7 % MONO % (test code = 5905-5) 4.8 % EOS % (test code = 713-8) 1.1 % BASO % (test code = 706-2) 0.5 % GRAN MAT x10^3(ANC) (test code = 2152244385) 4.71 10*3/uL 1.99-6.95 IMM GRAN x10^3 (test code = 5422287620) <0.03 0-0.06 LYMPH x10^3 (test code = 731-0) 1.18 10*3/uL 1.09-3.23 MONO x10^3 (test code = 742-7) 0.30 10*3/uL 0.36-1.02 L EOS x10^3 (test code = 711-2) 0.07 10*3/uL 0.06-0.53 BASO x10^3 (test code = 704-7) 0.03 10*3/uL 0.01-0.09 Lab Interpretation (test code = 51137-7) Abnormal [facility]2020-06-26 02:46:00* Test Item Value Reference Range Interpretation Comme nts POCT GLU (test code = 9786735636) 248 mg/dL 70-110 H Lab Interpretation (test cod e = 13176-5) Abnormal [facility]
[2024-07-14] MEDS ORDERED: NA CHLORIDE 0.9% 1,000 ML ONE (20:00)
[2024-07-14] MEDS ORDERED: ONDANSETRON 4 MG/2 ML VIAL ONE (20:00)
[2024-07-14] MEDS ORDERED: MORPHINE 4 MG/ML SYR ONE ×2 (20:00→22:04)
[2024-07-14 20:18] LABS: Absolute Eosinophils 0.1 K/uL (0-0.5); Absolute Lymphocytes (CBC) 1.1 K/uL (0.7-4.9); Absolute Monocytes 0.2 K/uL (0.1-1.3); Absolute Neutrophil 3.2 K/uL (1.8-8.0); Basophils % 0.7 % (0-1.3); Eosinophils % 1.4 % (0-4.4); Hematocrit 40.2 % (39.6-49.0); Hemoglobin 14.2 g/dL (13.6-17.9); Lymphocytes % 24.5 % (15.3-44.8); MCH 30.2 pg (27.0-35.0); MCHC 35.4 g/dL (32.0-36.0); MCV 85.3 fL (80-100); MPV 7.4 fL (7.6-11.3); Monocytes % 4.9 % (3.3-12.3); Neutrophils % 68.5 % (41.7-73.7); Nucleated Red Blood Cells % 0.3 % (0-0); Platelets 215 thou/uL (152-406); RBC Red Blood Cell Count 4.71 M/uL (4.33-5.43)
[2024-07-14 20:21] LABS: Specific Gravity > 1.030 (1.005-1.030); Sqamous Epithelial <5 /HPF (None Seen); Urine Bacteria None Seen /HPF (<20); Urine Bilirubin NEGATIVE (Negative); Urine Blood Negative (Negative); Urine Clarity Clear (Clear); Urine Color Light-Yellow (Yellow); Urine Crystals Unidentified Few /HPF (None Seen); Urine Culture Reflex Order NOT NEEDED; Urine Glucose 4+ (Over) (Negative); Urine Ketones NEGATIVE (Negative); Urine Microscopic Reflex YN ORDER UMIC; Urine Mucus Slight /HPF (None Seen); Urine Nitrite NEGATIVE (Negative); Urine Protein TRACE (Negative); Urine RBC <5 /HPF (None Seen); Urine Urobilinogen Normal (Normal); Urine WBC <5 /HPF (<5); Urine pH 5.5 (5.0-7.0)
[2024-07-14 20:30] LABS: Barbiturates NEGATIVE (NEGATIVE); Benzodiazepines POSITIVE (NEGATIVE); Cocaine NEGATIVE (NEGATIVE); METHAMPHETAM NEGATIVE (NEGATIVE); Methadone NEGATIVE (NEGATIVE); Opiates POSITIVE (NEGATIVE); Phencyclidine NEGATIVE (NEGATIVE); THC Cannibis NEGATIVE (NEGATIVE)
[2024-07-14 20:52] LABS: Albumin 4.1 g/dL (3.4-5.0); Albumin/Globulin Ratio 1.1 (1.1-1.8); Anion Gap 10.6 mEq/L (5.0-15.0); Bilirubin Total 1.1 mg/dL (0.2-1.0); Globulin 3.8 g/dL (2.3-3.5); Protein, Total 7.9 g/dL (6.4-8.2)
[2024-07-14 20:53] LABS: Potassium 4.6 mEq/L (3.5-5.1)
--- NOTE | 2024-07-14 21:57 | RAD REPORT ---
EXAMINATION: CT ABDOMEN AND PELVIS WITH CONTRAST CLINICAL INDICATION: Abdominal pain TECHNIQUE: CT abdomen and pelvis was performed, after the administration of 100 cc Isovue-300.. Sagit chino and coronal reconstructions were obtained. One or more of the following dose reduction techniques were used: Automated exposure control, adjustment of the mA and kV according to patient si ze, and iterative reconstruction. Unless otherwise specified, incidental findings do not require dedicated imaging follow-up. [id number]. Oral contrast was not given which limits evaluation of bowel and appendix. COMPARISON: .June 2024 FINDINGS: 4 cm cystic mass pancreatic tail. Is unchanged from prior exam. There is a typographical error in the prior report. The pseudocyst measured 4 cm. Remainder of the pancreas unremarkable Spleen measures 16 cm. 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 Left and caudate lobes of the liver are mildly prominent. Portal vein is patent. Adrenals and kidneys unremarkable Normal appendix. No evidence of diverticulitis. 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 Chronic liver disease suspected with mild to moderate splenomegaly
--- NOTE | 2024-07-14 22:05 | EDPHYS ---
Physician Documentation [facility] Name: Alex Auguste Age: 44 yrs Sex: Male : 1980 Arrival Date: 07/14/2024 Time: 19:10 Bed 11 Private MD: TOYN Physician Manpreet Nina HPI: 07/14 19:54 This 44 yrs old Male presents to ER via Ambulatory with complaints of dr5 Nausea/Vomiting, Abdominal Pain. 19:54 Onset: The symptoms/episode began/occurred acutely, last night. Patient is a dr5 44-year-old male presenting with anxiety, chronic pancreatitis, diabetes, GERD coming in with nausea, vomiting, epigastric abdominal pain consistent with his previous pancreatitis episodes that started last night. Patient also reports he was post to have endoscopy done today but was canceled due to him having the flu. Patient's got a phone call today from Dr. Mckeon requesting a CT abdomen pelvis with contrast be completed and to call to have that set up.. Historical: - Allergies: 19:40 No Known Allergies; dd2 - PMHx: 19:40 angina pectoris; Anxiety; Chronic Pancreatitis; depressive disorder; Diabetes - IDDM; dd2 GERD; High Triglycerides; Hypertensive disorder; - PSHx: 19:40 Cholecystectomy; hand; dd2 - Immunization history:: Adult Immunizations up to date. - Infectious Disease History:: Denies. - Social history:: Smoking status: Patient denies any tobacco usage or history of. ROS: 19:54 Constitutional: as per hpi dr5 Exam: 19:54 Constitutional: This is a well developed, well nourished patient who is awake, alert, dr5 and in no acute distress. Head/Face: Normocephalic, atraumatic. Eyes: Pupils equal round and reactive to light, extra-ocular motions intact. Lids and lashes normal. Conjunctiva and sclera are non-icteric and not injected. Cornea within normal limits. Periorbital areas with no swelling, redness, or edema. Chest/axilla: Normal chest wall appearance and motion. Nontender with no deformity. No lesions are appreciated. Cardiovascular: Regular rate and rhythm with a normal S1 and S2. Normal PMI, no JVD. No pulse deficits. Respiratory: Lungs have equal breath sounds bilaterally, clear to auscultation. No rales, rhonchi or wheezes noted. No increased work of breathing, no retractions or nasal flaring. 19:54 Back: No spinal tenderness. No costovertebral tenderness. Full range of motion. Skin: Warm, dry with normal turgor. Normal color with no rashes, no lesions, and no evidence of cellulitis. Neuro: Awake and alert, GCS 15, oriented to person, place, time, and situation. Cranial nerves II-XII grossly intact. Motor strength 5/5 in all extremities. Sensory grossly intact. Cerebellar exam normal. Normal gait. 19:54 Abdomen/GI: Inspection: abdomen appears normal, Bowel sounds: normal, Palpation: moderate abdominal tenderness, in the epigastric area, Vital Signs: 19:38 BP 116 / 77; Pulse 91; Resp 17; Temp 98.2(O); Pulse Ox 100% on R/A; Weight 90.72 kg; dd2 Height 5 ft. 10 in. ; Pain 10/10; 20:45 BP 115 / 75; Pulse 74; Resp 18; Pulse Ox 100% ; br2 21:38 BP 133 / 96; Pulse 85; Resp 18 S; Pulse Ox 95% on R/A; br2 22:00 BP 146 / 96; Pulse 79; Resp 18; Pulse Ox 98% on R/A; Pain 10/10; br2 19:38 Body Mass Index 28.70 (90.72 kg, 177.8 cm) dd2 19:38 Pain Scale: Adult dd2 22:00 Pain Scale: Adult br2 MDM: 19:27 Medical Screening Exam initiated dr5 21:05 ED course: Discussed labs / results with patient. Anticipate discharge. Patient has dr5 order for CT abdomen/pelvis with contrast. Nursing staff was able to establish IV after 3 attempts and US guided. Will get CT scan while patient is here and send patient home with results to give to Dr. Faust. Pending CTAP. 07/14 19:49 Order name: CBC with Diff; Complete Time: 20:20 dr5 07/14 19:49 Order name: CMP; Complete Time: 20:54 dr5 07/14 19:49 Order name: Lipase; Complete Time: 20:54 dr5 07/14 19:49 Order name: Urinalysis w/ reflexes; Complete Time: 20:26 dr5 07/14 19:49 Order name: UDS; Complete Time: 20:31 dr5 07/14 21:05 Order name: CT Abd/Pelvis - IV Contrast Only; Complete Time: 22:03 dr5 07/14 19:49 Order name: IV Saline Lock; Complete Time: 21:38 dr5 07/14 19:49 Order name: Labs collected and sent; Complete Time: 21:38 dr5 Administered Medications: 20:36 Drug: Ondansetron IVP 4 mg IVP once; over 2 minutes Route: IVP; Site: right antecubital;br2 21:00 Follow up: Response: No adverse reaction br2 20:36 Drug: morphine IVP or IV 4 mg IVP once over 4 mins Route: IVP; Infused Over: 4 mins; br2 Site: right antecubital; 21:00 Follow up: Response: No adverse reaction br2 20:36 Drug: NS 0.9% IV 1000 ml IV at 1 bolus Per protocol; to be given as a bolus over 60 br2 minutes Route: IV; Rate: 1 bolus; Site: right antecubital; 22:11 Follow up: IV Status: Completed infusion; IV Intake: 1000ml br2 22:06 Drug: morphine IVP or IV 4 mg IVP once over 4 mins Route: IVP; Infused Over: 4 mins; br2 Site: right antecubital; 22:11 Follow up: Response: Medication administered at discharge. br2 Disposition Summary: 07/14/24 22:05 Discharge Ordered Notes: Location: Home dr5 Condition: Stable dr5 Diagnosis - Upper abdominal pain, unspecified dr5 Followup: dr5 - With: Emergency Department - When: As needed - Reason: Worsening of condition Followup: dr5 - With: Private Physician - When: 1 - 2 days - Reason: Recheck today's complaints, Continuance of care, Re-evaluation by your physician Discharge Instructions: - Discharge Summary Sheet dr5 - Abdominal Pain, Adult dr5 - Chronic Pancreatitis dr5 Forms: - Medication Reconciliation Form dr5 - Patient Portal Instructions dr5 - Leadership Thank You Letter dr5 Addendum: 07/18/2024 15:33 Co-signature as Attending Physician, Manpreet Nina MD I agree with the assessment and c connell plan of care. Signatures: Dispatcher [employer] Manpreet Hooks MD MD cha Riddle, Belinda RN RN br2 MELCHOR AUGUSTE RN RN dd2 Behzad Loza, AREA OPERATIONS DIRECTOR-C AREA OPERATIONS DIRECTOR-Cdr5 Corrections: (The following items were deleted from the chart) 07/14 19:49 19:49 CBC+H.LAB.BRZ ordered. EDMS EDMS 19:49 19:49 COMPREHENSIVE METABOLIC PANEL+C.LAB.BRZ ordered. EDMS EDMS 19:49 19:49 LIPASE+C.LAB.BRZ ordered. EDMS EDMS 19:49 19:49 Urinalysis+U.LAB.BRZ ordered. EDMS EDMS 19:49 19:49 URINE DRUG SCREEN+UC.LAB.BRZ ordered. EDMS EDMS 21:05 21:05 Abdomen Pelvis W Con+CT.RAD.BRZ ordered. EDMS EDMS
--- NOTE | 2024-07-14 22:05 | ER ---
Nurse's Notes [facility] Name: Alex Auguste Age: 44 yrs Sex: Male : 1980 Arrival Date: 07/14/2024 Time: 19:10 Bed 11 Private MD: Diagnosis: Upper abdominal pain, unspecified Presentation: 07/14 19:38 Chief complaint: Patient states: ABDOMINAL PAIN AND VOMITING SINCE THIS MORNING. dd2 REPORTS HX PF PANCREATITIS. Coronavirus screen: At this time, the client does not indicate any symptoms associated with coronavirus-19. Ebola Screen: No symptoms or risks identified at this time. Initial Sepsis Screen: Does the patient meet any 2 criteria? No. Patient's initial sepsis screen is negative. Does the patient have a suspected source of infection? No. Patient's initial sepsis screen is negative. Risk Assessment: Do you want to hurt yourself or someone else? Patient reports no desire to harm self or others. Onset of symptoms was July 14, 2024. 19:38 Method Of Arrival: Ambulatory dd2 19:38 Acuity: [place] 3 dd2 Triage Assessment: 19:40 General: Appears uncomfortable, Behavior is calm, cooperative, appropriate for age. dd2 Pain: Complains of pain in epigastric area Pain does not radiate. Pain currently is 10 out of 10 on a pain scale. GI: Abdomen is non-distended, Abdomen is tender to palpation X 4 quads. Reports epigastric pain. Historical: - Allergies: 19:40 No Known Allergies; dd2 - PMHx: 19:40 angina pectoris; Anxiety; Chronic Pancreatitis; depressive disorder; Diabetes - IDDM; dd2 GERD; High Triglycerides; Hypertensive disorder; - PSHx: 19:40 Cholecystectomy; hand; dd2 - Immunization history:: Adult Immunizations up to date. - Infectious Disease History:: Denies. - Social history:: Smoking status: Patient denies any tobacco usage or history of. Screenin:00 [facility] ED Fall Risk Assessment (Adult) History of falling in the last 3 months, br2 including since admission No falls in past 3 months (0 pts) Confusion or Disorientation No (0 pts) Intoxicated or Sedated No (0 pts) Impaired Gait No (0 pts) Mobility Assist Device Used No (0 pt) Altered Elimination No (0 pt) Score/Fall Risk Level 0 - 2 = Low Risk Oriented to surroundings. Abuse screen: Denies threats or abuse. Denies injuries from another. Nutritional screening: No deficits noted. Tuberculosis screening: No symptoms or risk factors identified. Assessment: 20:00 Reassessment: Patient and/or family updated on plan of care and expected duration. Pain br2 level reassessed. Patient is alert, oriented x 3, equal unlabored respirations, skin warm/dry/pink. General: Appears in no apparent distress. comfortable, Behavior is calm, cooperative. Pain: Complains of pain in right upper quadrant and left upper quadrant Pain does not radiate. Pain currently is 9 out of 10 on a pain scale. Neuro: Mera Agitation-Sedation Scale (RASS): 0 - Alert and Calm Level of Consciousness is awake, alert, Oriented to person, place, time, situation. Cardiovascular: Capillary refill < 3 seconds. GI: Reports upper abdominal pain, nausea, vomiting. 20:00 GI: Reports upper abdominal pain. br2 21:38 Reassessment: Patient and/or family updated on plan of care and expected duration. Pain br2 level reassessed. Patient is alert, oriented x 3, equal unlabored respirations, skin warm/dry/pink. Patient states feeling better. Patient states symptoms have improved. Vital Signs: 19:38 BP 116 / 77; Pulse 91; Resp 17; Temp 98.2(O); Pulse Ox 100% on R/A; Weight 90.72 kg; dd2 Height 5 ft. 10 in. ; Pain 10/10; 20:45 BP 115 / 75; Pulse 74; Resp 18; Pulse Ox 100% ; br2 21:38 BP 133 / 96; Pulse 85; Resp 18 S; Pulse Ox 95% on R/A; br2 22:00 BP 146 / 96; Pulse 79; Resp 18; Pulse Ox 98% on R/A; Pain 10/10; br2 19:38 Body Mass Index 28.70 (90.72 kg, 177.8 cm) dd2 19:38 Pain Scale: Adult dd2 22:00 Pain Scale: Adult br2 ED Course: 19:26 Patient arrived in ED. gm2 19:26 Behzad Loza FNP-C [facility] 19:26 Manpreet Nina MD is Attending Physician. dr5 19:40 Triage completed. dd2 19:40 Arm band placed on right wrist. Patient placed in an exam room, on a stretcher, on dd2 pulse oximetry. 19:46 Layla Andrews, RN is Primary Nurse. br2 20:00 Patient has correct armband on for positive identification. Placed in gown. Bed in low br2 position. Call light in reach. Side rails up X 1. Provided Education on: plan of care. 20:18 Missed attempt(s): 20 gauge in right antecubital area. Bleeding controlled, band aid lg3 applied, catheter tip intact. 20:18 Missed attempt(s): 22 gauge in left forearm. Bleeding controlled, band aid applied, lg3 catheter tip intact. 20:34 Accessed peripheral vein via ultrasound, utilizing dynamic ultrasound technique Clean \T\ cm10 dry. Dressing intact. Good blood return. Flushes easily. 20G RIGHT FOREARM. 21:33 CT Abd/Pelvis - IV Contrast Only In Process Unspecified. EDMS 22:10 IV discontinued, intact, bleeding controlled, No redness/swelling at site. Pressure br2 dressing applied. 22:12 No provider procedures requiring assistance completed. br2 Administered Medications: 20:36 Drug: Ondansetron IVP 4 mg IVP once; over 2 minutes Route: IVP; Site: right antecubital;br2 21:00 Follow up: Response: No adverse reaction br2 20:36 Drug: morphine IVP or IV 4 mg IVP once over 4 mins Route: IVP; Infused Over: 4 mins; br2 Site: right antecubital; 21:00 Follow up: Response: No adverse reaction br2 20:36 Drug: NS 0.9% IV 1000 ml IV at 1 bolus Per protocol; to be given as a bolus over 60 br2 minutes Route: IV; Rate: 1 bolus; Site: right antecubital; 22:11 Follow up: IV Status: Completed infusion; IV Intake: 1000ml br2 22:06 Drug: morphine IVP or IV 4 mg IVP once over 4 mins Route: IVP; Infused Over: 4 mins; br2 Site: right antecubital; 22:11 Follow up: Response: Medication administered at discharge. br2 Medication: 20:00 VIS not applicable for this client. br2 Intake: 22:11 IV: 1000ml; Total: 1000ml. br2 Outcome: 22:05 Discharge ordered by MD. dr5 22:10 Discharged to home ambulatory, br2 22:10 Condition: stable 22:10 Discharge instructions given to patient, Instructed on discharge instructions, follow up and referral plans. Demonstrated understanding of instructions, follow-up care, 22:12 Patient left the ED. br2 Signatures: Dispatcher [employer] EDMS Juany Galan RN RN lg3 Janelle Avilez RN RN cm10 Leona Riggins gm2 Layla Andrews RN RN br2 MELCHOR AUGUSTE RN RN dd2 Behzad Loza, GAS TRUCK DRIVER-C GAS TRUCK DRIVER-Cdr5
[2024-07-14 22:37] VITALS: TEMP 98.2
[2024-07-14 22:42] VITALS: BP 146/96; O2SAT 98
== END 2024-07-14 22:12 | disposition home or self-care (01) ==
LOC: ER 19:10
DX: R10.13 Epigastric pain (principal); R11.2 Nausea with vomiting, unspecified; F41.9 Anxiety disorder, unspecified; E11.9 Type 2 diabetes mellitus without complications; I10 Essential (primary) hypertension
CPT/HCPCS: 96361; 85025; 81001; 36415; 83690; 80053; 80307; 74177; 96375; 96374; 99284; Q9967; J2405; J7030

== ENCOUNTER 2024-09-05 16:22 | Inpatient (IN) | payer BC ==
[2024-09-05] MEDS ORDERED: MORPHINE 4 MG/ML SYR ONE ×2 (17:05→18:37)
[2024-09-05] MEDS ORDERED: NA CHLORIDE 0.9% 1,000 ML ONE (17:06)
[2024-09-05] MEDS ORDERED: ONDANSETRON 4 MG/2 ML VIAL ONE ×2 (17:06→21:27)
[2024-09-05 18:14] LABS: ALT/SGPT 59 U/L (16-61); AST/SGOT 23 U/L (15-37); Albumin/Globulin Ratio 1.1 (1.1-1.8); Alkaline Phosphatase 89 U/L (45-117); Anion Gap 9.7 mEq/L (5.0-15.0); BUN Blood Urea Nitrogen 13 mg/dL (7-18); Bicarbonate 25 mEq/L (21-32); Globulin 3.6 g/dL (2.3-3.5); Glomerular Filtration Rate 99 ml/min (=/>90); Glucose Level 300 mg/dL (74-106); HDL Cholesterol 20 mg/dL (40-60); Lipase 130 U/L (13-75); Potassium 3.7 mEq/L (3.5-5.1); Protein, Total 7.6 g/dL (6.4-8.2); Sodium Level 133 mEq/L (136-145)
[2024-09-05 18:15] LABS: LDL Cholesterol,Calc NonReport -15
[2024-09-05 18:24] LABS: Absolute Basophils 0.1 K/uL (0-0.5); Absolute Eosinophils 0.1 K/uL (0-0.5); Absolute Lymphocytes (CBC) 0.9 K/uL (0.7-4.9); Absolute Monocytes 0.2 K/uL (0.1-1.3); Absolute Neutrophil 2.6 K/uL (1.8-8.0); Basophils % 1.3 % (0-1.3); Eosinophils % 1.4 % (0-4.4); Hematocrit 39.6 % (39.6-49.0); Hemoglobin 14.7 g/dL (13.6-17.9); Lymphocytes % 24.5 % (15.3-44.8); MCH 30.5 pg (27.0-35.0); MCV 82.5 fL (80-100); MPV 7.8 fL (7.6-11.3); Neutrophils % 67.8 % (41.7-73.7); Nucleated Red Blood Cells % 0.2 % (0-0); Platelets 126 thou/uL (152-406); RBC Red Blood Cell Count 4.81 M/uL (4.33-5.43); Red Cell Distribution Width 13.2 % (12.1-15.2)
[2024-09-05 18:27] LABS: LDL, Direct 17 mg/dL (100-129)
--- NOTE | 2024-09-05 19:28 | RAD REPORT ---
EXAMINATION: CT Abdomen Pelvis W Contrast CLINICAL INDICATION: Male, 44 years old. ABD PAIN TECHNIQUE: CT abdomen and pelvis was performed, after the administration of IV contrast, [facility]. Axial, sagittal and coronal reconstructions were obtained. One or more of the following dose reduction techniques were used: Automated exposure control, adjustment of the mA and k V according to patient size, and iterative reconstruction. Unless otherwise specified, incidental findings do not require dedicated imaging follow-up. COMPARISON: 07/14/2024 FINDINGS: Motion artifact particularly along the upper abdomen limits evaluation. LOWER CHEST: The visualized lung bases are clear. Circumferential wall thickening of the distal esoph rohan, nonspecific. This could relate to sequelae gastritis or reflux disease LIVER: Normal in size and contour. No focal lesion. BILIARY SYSTEM: Status post cholecystectomy. SPLEEN: Normal size. No focal lesion. Varicosities along the gastrosplenic region again seen. PANCREAS: Stable exophytic 3.9 cm cyst at the pancreatic tail. No mass, ductal dilation, or other per i-pancreatic fluid. ADRENALS: Normal; no mass. KIDNEYS: Normal size and contour. No hydronephrosis. URINARY BLADDER: Unremarkable. GASTROINTESTINAL TRACT: No evidence of free air, significant intra-abdominal free fluid, bowel obstru ction or abscess. APPENDIX: Normal appendix. LYMPH NODES: No lymphadenopathy. MUSCULOSKELETAL: No acute or suspicious osseous abnormality. ADDITIONAL FINDINGS: None. IMPRESSION: No acute or progressive abnormalities seen in the abdomen or pelvis. Stable findings including a pancreatic tail 3.9 cm cyst which could be postinflammatory. Gastrospleni c varicosities, may suggest ongoing portal hypertension. Motion artifact limits evaluation.
--- NOTE | 2024-09-05 19:51 | P.HP ---
Certification for Inpatient Patient admitted to: Inpatient With expected LOS: >2 Midnights Practitioner: I am a practitioner with admitting privileges, knowledge of patient current condition, hospital course, and medical plan of care. Services: Services provided to patient in accordance with Admission requirements found in Title 42 Section 412.3 of the Code of Federal Regulations Patient History Date of Service: 09/05/24 Reason for admission: Abdominal Pain History of Present Illness: 44-year-old male with past medical history of diabetes, hypertension, hypertriglyceridemia, chronic pancreatitis, angina, history of anxiety, depression who was brought to ER with epigastric pain and abdominal pain which has been going on since yesterday. Pain is sharp 8 out of 10 in severity. Radiating to back. Associated with some nausea and vomiting. Denies any fever or chills. No chest pain or shortness of breath. No sick contacts. Feels like similar episodes in the past of acute pancreatitis. Patient was assessed in the ER and is found to have elevated lipase and was admitted for further management of acute on chronic pancreatitis Allergies No Known Drug Allergies Allergy (Verified 05/31/24 19:29) NONE Home medications list reviewed: Yes Home Medications: Fenofibrate [Tricor*] 160 mg PO DAILY #30 tab 01/10/22 ALPRAZolam [Alprazolam] 1 mg PO SEECOM 05/31/24 Escitalopram Oxalate [Lexapro] 10 mg PO SEECOM 05/31/24 Insulin Aspart (Niacinamide) [Fiasp 100 Unit/ml Flextouch] 20 unit SQ SEECOM 05/31/24 Insulin Aspart (Niacinamide) [Fiasp 100 Unit/ml Flextouch] 20 unit SQ SEECOM 05/31/24 Insulin Glargine,Hum.rec.anlog [Lantus Solostar] 36 unit SQ DAILY 05/31/24 Rosuvastatin Calcium 20 mg PO DAILY 05/31/24 Valsartan 160 mg PO SEECOM 05/31/24 Hydrocodone 7.5/APAP 325 [[place] 7.5/325 mg*] 1 tab PO Q8H PRN #15 tab 06/03/24 - Past Medical/Surgical History Diabetic: Yes Past Medical History: Reviewed- Non-Contributory -: Chronic Pancreatitis (due to high triglycerides) -: Type 2 Diabetes -: pancreatitis -: [place] -: ray's palsy -: high triglyceride -: Cranial nerves 3 and 6 problems Past Surgical History: Reviewed- Non-Contributory -: cholecystectomy -: fx wrist -: knee surg Psychosocial/ Personal History: Patient lives at home with his family. - Family History Family History: Reviewed- Non-Contributory - Family History Mother -: Heart disease Notes: Recent HI Father -: Stroke Notes: glaucoma - Social History Smoking Status: Former smoker Alcohol use: No CD- Drugs: No Caffeine use: Yes Review of Systems 10-point ROS is otherwise unremarkable Physical Examination - Vital Signs Temperature: 97.8 F Blood Pressure: 138/76 Pulse: 82 Respirations: 18 Pulse Ox (%): 94 - Physical Exam General: Alert, Oriented x3, Moderate distress HEENT: Atraumatic, Normocephalic Neck: Supple, No Thyromegaly Respiratory: Clear to auscultation bilaterally, Normal air movement Cardiovascular: Regular rate/rhythm, Normal S1 S2 Gastrointestinal: W/out hepatosplenomegaly, Tenderness, Guarding Musculoskeletal: No clubbing, No swelling Integumentary: No rashes Neurological: Normal speech, Normal strength at 5/5 x4 extr, Cranial nerves 3-12 intact, Normal reflexes 2+ Lymphatics: No axilla or inguinal lymphadenopathy - Studies Laboratory Data (last 24 hrs) 09/05/24 09/05/24 17:32 17:32 WBC 3.90 L Hgb 14.7 Hct 39.6 Plt Count 126 L Sodium 133 L Potassium 3.7 BUN 13 Creatinine 0.96 Glucose 300 H Total Bilirubin 1.0 AST 23 ALT 59 Alkaline Phosphatase 89 Triglycerides 343 H Cholesterol 74 LDL Cholesterol Direct 17 L HDL Cholesterol 20 L Cholesterol/HDL Ratio 3.70 Lipase 130 H Assessment and Plan - Plan Acute on chronic pancreatitis Pain control Aggressive Rehydration N.p.o. for now Possibly due to triglyceridemia Will get lipid panel Hyponatremia Started on IV hydration Electrolytes monitor and replace accordingly Hypertension Antihypertensives continued Titrate as needed Diabetes with hyperglycemia Insulin sliding scale Accu-Chek before every meal and at bedtime Hypertriglyceridemia Will monitor lipid panel GI/DVT prophylaxis Advanced directive full code Discharge Plan: Home Plan to discharge in: 48 Hours - Advance Directives Does patient have a Living Will: No Does patient have a Durable POA for Healthcare: No - Code Status/Comfort Care Code Status: Full Code Time Spent Managing Pts Care (In Minutes): 48
--- NOTE | 2024-09-05 20:04 | ER ---
Nurse's Notes [facility] Name: Alex Auguste Age: 44 yrs Sex: Male : 1980 Arrival Date: 09/05/2024 Time: 16:22 Bed 14 Private MD: Diagnosis: Acute on chronic pancreatitis Presentation: 09/05 16:29 Chief complaint: Patient states: Wednesday was supposed to have an upper endoscopy , he iw was not able to have the procedure because I had a flare up of pancreatitis my lipase was 149, my triglycerides were 4000, they discharged me from the ER. Now I have worsening pain in my stomach. Coronavirus screen: At this time, the client does not indicate any symptoms associated with coronavirus-19. Ebola Screen: No symptoms or risks identified at this time. Initial Sepsis Screen: Does the patient meet any 2 criteria? HR > 90 bpm. Does the patient have a suspected source of infection? No. Patient's initial sepsis screen is negative. Risk Assessment: Do you want to hurt yourself or someone else? Patient reports no desire to harm self or others. Onset of symptoms was August 30, 2024. 16:29 Method Of Arrival: Ambulatory iw 16:29 Acuity: [place] 3 iw Historical: - Allergies: 16:33 No Known Allergies; iw - PMHx: 16:32 Chronic Pancreatitis; Diabetes - IDDM; angina pectoris; Anxiety; GERD; depressive iw disorder; High Triglycerides; Hypertensive disorder; - PSHx: 16:32 Cholecystectomy; hand; iw - Immunization history:: Adult Immunizations up to date. - Infectious Disease History:: Denies. - Family history:: not pertinent. - Social history:: Smoking status: Patient denies any tobacco usage or history of. Screenin:00 [facility] ED Fall Risk Assessment (Adult) History of falling in the last 3 months, hb including since admission No falls in past 3 months (0 pts) Confusion or Disorientation No (0 pts) Intoxicated or Sedated No (0 pts) Impaired Gait No (0 pts) Mobility Assist Device Used No (0 pt) Altered Elimination No (0 pt) Score/Fall Risk Level 0 - 2 = Low Risk Oriented to surroundings, Maintained a safe environment, Educated pt \T\ family on fall prevention, incl call for assistance when getting out of bed. Abuse screen: Denies threats or abuse. Denies injuries from another. Nutritional screening: No deficits noted. Tuberculosis screening: No symptoms or risk factors identified. Assessment: 18:00 General: Appears in no apparent distress. uncomfortable, Behavior is calm, cooperative. hb Pain: Pain currently is 8 out of 10 on a pain scale. Neuro: GCS15. Cardiovascular: Patient's skin is warm and dry. Respiratory: Respiratory effort is even, unlabored, Respiratory pattern is regular, symmetrical. GI: Reports upper abdominal pain. : No signs and/or symptoms were reported regarding the genitourinary system. EENT: No signs and/or symptoms were reported regarding the EENT system. Derm: Skin is pink, warm \T\ dry. Musculoskeletal: No signs and/or symptoms reported regarding the musculoskeletal system. 19:37 General: Appears in no apparent distress. Behavior is calm, cooperative. Pain: al5 Complains of pain in abdomen. Neuro: Level of Consciousness is awake, alert, obeys commands, Oriented to person, place, time, situation. Cardiovascular: Capillary refill < 3 seconds Patient's skin is warm and dry. Respiratory: Airway is patent Respiratory effort is even, unlabored, Respiratory pattern is regular, symmetrical. GI: Abdomen is flat, non-distended, Bowel sounds present X 4 quads. Abd is soft X 4 quads Abdomen is tender to palpation in right upper quadrant Reports upper abdominal pain. : No signs and/or symptoms were reported regarding the genitourinary system. EENT: No signs and/or symptoms were reported regarding the EENT system. Derm: Skin is intact, is healthy with good turgor, Skin is pink, warm \T\ dry. normal. Musculoskeletal: No signs and/or symptoms reported regarding the musculoskeletal system. 20:59 Reassessment: Patient appears in no apparent distress at this time. No changes from al5 previously documented assessment. Patient and/or family updated on plan of care and expected duration. Pain level reassessed. Patient is alert, oriented x 3, equal unlabored respirations, skin warm/dry/pink. Vital Signs: 16:29 BP 138 / 102; Pulse 101; Resp 18; Temp 97.9; Pulse Ox 99% on R/A; iw 19:00 BP 141 / 92; Pulse 80; Resp 18; Pulse Ox 100% ; al5 19:30 BP 136 / 93; Pulse 83; Resp 17; Pulse Ox 99% on R/A; al5 20:00 BP 141 / 97; Pulse 79; Resp 17; Pulse Ox 100% on R/A; al5 20:30 BP 155 / 97; Pulse 83; Resp 16; Pulse Ox 100% on R/A; al5 ED Course: 16:25 Patient arrived in ED. al6 16:27 Anant Bautista MD is Attending Physician. rt 16:32 Triage completed. iw 16:32 Arm band placed on. iw 17:06 Patient placed in an exam room, on a stretcher. ll1 17:22 Initial lab(s) drawn, by me, sent to lab. Accessed peripheral vein via ultrasound, hb utilizing dynamic ultrasound technique using 20G Nexia IV catheter per hospital protocol. Good blood return. Flushes easily. 17:55 Preethi Billy, RN is Primary Nurse. hb 18:00 Patient has correct armband on for positive identification. Provided Education on: hb TESTS, RESULT TIMES. 18:00 No provider procedures requiring assistance completed. hb 18:26 CT Abd/Pelvis - IV Contrast Only In Process Unspecified. EDMS 20:02 Jose Guadalupe Verdugo MD is Hospitalizing Provider. rt 21:00 Patient admitted, IV remains in place. al5 09/06 06:52 Primary Nurse role handed off by Preethi Billy RN bd 16:42 Deneen Singh, KECIA is Primary Nurse. kj2 Administered Medications: 09/05 17:22 Drug: Ondansetron IVP 4 mg IVP once; over 2 minutes Route: IVP; Site: right forearm; hb 18:40 Follow up: Response: No adverse reaction hb 17:22 Drug: morphine IVP or IV 4 mg IVP once over 4 mins Route: IVP; Infused Over: 4 mins; hb Site: right forearm; 18:40 Follow up: Response: No adverse reaction hb 17:22 Drug: NS 0.9% IV 1000 ml IV at 1 bolus Per protocol; to be given as a bolus over 60 hb minutes Route: IV; Rate: 1 bolus; Site: right forearm; 21:31 Follow up: Response: No adverse reaction; IV Status: Completed infusion; IV Intake: al5 1000ml 18:39 Drug: morphine IVP or IV 4 mg IVP once over 4 mins Route: IVP; Infused Over: 4 mins; hb Site: right forearm; 19:40 Follow up: Response: No adverse reaction; Pain is unchanged, physician notified al5 21:31 Drug: morphine IVP or IV 2 mg IVP once over 4 mins Route: IVP; Infused Over: 4 mins; al5 Site: right forearm; 09/06 01:11 Follow up: Response: No adverse reaction al5 09/05 21:31 Drug: Ondansetron IVP 4 mg IVP once; over 2 minutes Route: IVP; Site: right forearm; al5 09/06 01:11 Follow up: Response: No adverse reaction al5 Medication: 09/05 18:00 VIS not applicable for this client. hb Intake: 21:31 IV: 1000ml; Total: 1000ml. al5 Outcome: 20:03 Decision to Hospitalize by Provider. rt 21:00 Admitted to ER Hold. [facility] for further documentation. al5 21:00 Condition: stable 21:00 Instructed on the need for admit, 09/06 18:44 Patient left the ED. kj2 Signatures: Dispatcher [employer] EDMS Marylin Reid Irene, RN KECIA Preethi Billy, RN RN Vijay Menard RN RN ll1 Anant Bautista MD MD rt Lacie Garcia RN RN al5 Deneen Singh RN RN kj2 Teodora Chan al6
--- NOTE | 2024-09-05 20:04 | EDPHYS ---
Physician Documentation [facility] Name: Alex Auguste Age: 44 yrs Sex: Male : 1980 Arrival Date: 09/05/2024 Time: 16:22 Bed 14 Private MD: ED Physician Anant Bautista HPI: 09/05 19:55 This 44 yrs old Male presents to ER via Ambulatory with complaints of Abdominal Pain. rt 19:55 Patient with history of chronic pancreatitis presents to the ED with epigastric pain rt starting about a week ago, worsening today. States that this is consistent with previous episodes of pancreatitis. Reports nausea, vomiting. Denies other acute complaints at this time, symptoms are moderate in severity, no other aggravating or alleviating factors.. Historical: - Allergies: 16:33 No Known Allergies; iw - PMHx: 16:32 Chronic Pancreatitis; Diabetes - IDDM; angina pectoris; Anxiety; GERD; depressive iw disorder; High Triglycerides; Hypertensive disorder; - PSHx: 16:32 Cholecystectomy; hand; iw - Immunization history:: Adult Immunizations up to date. - Infectious Disease History:: Denies. - Family history:: not pertinent. - Social history:: Smoking status: Patient denies any tobacco usage or history of. ROS: 19:55 Constitutional: Negative for fever, chills, and weight loss, Cardiovascular: Negative rt for chest pain, palpitations, and edema, Respiratory: Negative for shortness of breath, cough, wheezing, and pleuritic chest pain, MS/Extremity: Negative for injury and deformity, Skin: Negative for injury, rash, and discoloration, Neuro: Negative for headache, weakness, numbness, tingling, and seizure, 19:55 Abdomen/GI: Positive for abdominal pain, nausea, Exam: 19:55 Constitutional: This is a well developed, well nourished patient who is awake, alert, rt and in no acute distress. Head/Face: Normocephalic, atraumatic. Chest/axilla: Normal chest wall appearance and motion. Nontender with no deformity. No lesions are appreciated. Cardiovascular: Regular rate and rhythm with a normal S1 and S2. No gallops, murmurs, or rubs. Normal PMI, no JVD. No pulse deficits. Respiratory: Lungs have equal breath sounds bilaterally, clear to auscultation and percussion. No rales, rhonchi or wheezes noted. No increased work of breathing, no retractions or nasal flaring. Skin: Warm, dry with normal turgor. Normal color with no rashes, no lesions, and no evidence of cellulitis. MS/ Extremity: Pulses equal, no cyanosis. Neurovascular intact. Full, normal range of motion. Neuro: Awake and alert, GCS 15, oriented to person, place, time, and situation. Cranial nerves II-XII grossly intact. Motor strength 5/5 in all extremities. Sensory grossly intact. Cerebellar exam normal. Normal gait. 19:55 Abdomen/GI: Tenderness to the epigastrium without rebound, guarding, distention, Vital Signs: 16:29 BP 138 / 102; Pulse 101; Resp 18; Temp 97.9; Pulse Ox 99% on R/A; iw 19:00 BP 141 / 92; Pulse 80; Resp 18; Pulse Ox 100% ; al5 19:30 BP 136 / 93; Pulse 83; Resp 17; Pulse Ox 99% on R/A; al5 20:00 BP 141 / 97; Pulse 79; Resp 17; Pulse Ox 100% on R/A; al5 20:30 BP 155 / 97; Pulse 83; Resp 16; Pulse Ox 100% on R/A; al5 MDM: 16:31 Medical Screening Exam initiated rt 19:55 Differential Diagnosis Pancreatitis, epigastric pain. Data reviewed: vital signs, rt nurses notes, lab test result(s), radiologic studies. Consideration of Admission/Observation Patient was admitted/placed on observation. Management of patient was discussed with the following: Hospitalist: Agrees to admit. I considered the following discharge prescriptions or medication management in the emergency department Medications were administered in the Emergency Department. See MAR. Independent interpretation of the following test(s) in the Emergency Department CT Scan: My interpretation is No bowel obstruction seen on interpretation of CT scan images. Care significantly affected by the following chronic conditions: Diabetes. Counseling: I had a detailed discussion with the patient and/or guardian regarding the historical points, exam findings, and any diagnostic results supporting the discharge/admit diagnosis, lab results, radiology results, the need for further work-up and treatment in the hospital. Response to treatment: the patient's symptoms have mildly improved after treatment. 09/05 16:46 Order name: CBC with Diff; Complete Time: 18:32 rt 09/05 16:46 Order name: CMP; Complete Time: 18:32 rt 09/05 16:46 Order name: Lipase; Complete Time: 18:32 rt 09/05 16:46 Order name: Lipid Profile; Complete Time: 18:32 rt 09/05 18:17 Order name: LDL, Direct; Complete Time: 18:32 EDMS 09/05 21:30 Order name: Urinalysis w/ reflexes EDMS 09/05 21:30 Order name: CBC with Automated Diff EDMS 09/05 21:30 Order name: CBC with Automated Diff EDMS 09/05 21:30 Order name: Comprehensive Metabolic Panel EDMS 09/05 21:30 Order name: Comprehensive Metabolic Panel EDMS 09/06 02:38 Order name: Glucose, Ancillary Testing EDMS 09/06 07:33 Order name: Glucose, Ancillary Testing EDMS 09/06 07:57 Order name: Phosphorus EDMS 09/06 07:57 Order name: Magnesium EDMS 09/06 15:04 Order name: Glucose, Ancillary Testing EDMS 09/05 16:46 Order name: CT Abd/Pelvis - IV Contrast Only; Complete Time: 19:30 rt 09/05 16:46 Order name: IV Saline Lock; Complete Time: 17:55 rt 09/05 16:46 Order name: Labs collected and sent; Complete Time: 17:55 rt Administered Medications: 17:22 Drug: Ondansetron IVP 4 mg IVP once; over 2 minutes Route: IVP; Site: right forearm; hb 18:40 Follow up: Response: No adverse reaction hb 17:22 Drug: morphine IVP or IV 4 mg IVP once over 4 mins Route: IVP; Infused Over: 4 mins; hb Site: right forearm; 18:40 Follow up: Response: No adverse reaction hb 17:22 Drug: NS 0.9% IV 1000 ml IV at 1 bolus Per protocol; to be given as a bolus over 60 hb minutes Route: IV; Rate: 1 bolus; Site: right forearm; 21:31 Follow up: Response: No adverse reaction; IV Status: Completed infusion; IV Intake: al5 1000ml 18:39 Drug: morphine IVP or IV 4 mg IVP once over 4 mins Route: IVP; Infused Over: 4 mins; hb Site: right forearm; 19:40 Follow up: Response: No adverse reaction; Pain is unchanged, physician notified 21:31 Drug: morphine IVP or IV 2 mg IVP once over 4 mins Route: IVP; Infused Over: 4 mins; al5 Site: right forearm; 09/06 01:11 Follow up: Response: No adverse reaction al5 09/05 21:31 Drug: Ondansetron IVP 4 mg IVP once; over 2 minutes Route: IVP; Site: right forearm; al5 09/06 01:11 Follow up: Response: No adverse reaction al5 Disposition Summary: 09/05/24 20:03 Hospitalization Ordered Notes: Hospitalization Status: Inpatient Admission rt Provider: Jose Guadalupe Verdugo rt Condition: Stable rt Problem: an acute exacerbation rt Symptoms: have improved rt Bed/Room Type: Standard rt Location: Telemetry/MedSurg (Inpatient)(09/06/24 15:24) bd Room Assignment: 217(09/06/24 15:24) bd Diagnosis - Acute on chronic pancreatitis rt Forms: - Medication Reconciliation Form rt - SBAR form rt - Leadership Thank You Letter rt Signatures: Dispatcher [employer] EDMS Marylin Reid bd Sherron Gloria Irene, KECIA MCDONNELL iw Preethi Billy RN RN Anant Bautista MD MD rt Lacie Garcia RN RN al5 Corrections: (The following items were deleted from the chart) 09/05 16:46 16:46 Abdomen Pelvis W Con+CT.RAD.BRZ ordered. EDMS EDMS 20:44 20:03 Telemetry/MedSurg (Inpatient) rt sp 20:44 20:03 rt sp 09/06 15:24 09/05 20:44 [facility] ER HOLD sp bd 09/06 15:24 09/05 20:44 ERHOLD- sp bd
[2024-09-05] MEDS ORDERED: ACETAMINOPHEN 325 MG TABLET PO PRN (21:25)
[2024-09-05] MEDS ORDERED: SODIUM CHLORIDE 0.9% 10ML INJ IV PRN (21:28)
[2024-09-05] MEDS ORDERED: D10W 125 ML IV PRN (21:29)
[2024-09-05] MEDS ORDERED: GLUCAGON 1 MG/VIAL IM PRN (21:29)
[2024-09-05] MEDS: Ringers Lactate 1,000 ML IV SCH (22:00)
[2024-09-05] MEDS ORDERED: Ringers Lactate 1,000 ML IV ONE (22:22)
[2024-09-06] MEDS ORDERED: MORPHINE 2 MG/ML SYR ONE (00:08)
[2024-09-06] MEDS ORDERED: ONDANSETRON 4 MG/2 ML VIAL ONE ×3 (00:08→14:02)
[2024-09-06] MEDS: MORPHINE 2 MG/ML SYR IV PRN (00:17)
[2024-09-06] MEDS: ONDANSETRON 4 MG/2 ML VIAL IV PRN (00:17)
[2024-09-06 00:32] VITALS: BMI 27.2
[2024-09-06] MEDS ORDERED: HYDROCODONE/APAP 5/325 MG TAB ONE (02:11)
[2024-09-06] MEDS ORDERED: METOCLOPRAMIDE 10 MG/2mL INJ ONE ×2 (02:11→10:17)
[2024-09-06] MEDS: METOCLOPRAMIDE 10 MG/2mL INJ IV PRN (02:14)
[2024-09-06] MEDS ORDERED: INSULIN REGULAR (HUMAN) 100 UNIT/ML ONE ×3 (02:30→14:56)
[2024-09-06] MEDS: INSULIN REGULAR (HUMAN) 100 UNIT/ML SQ SCH (02:31)
[2024-09-06] MEDS: HYDROCODONE/APAP 5/325 MG TAB PO PRN (02:35)
[2024-09-06] MEDS ORDERED: MORPHINE 4 MG/ML SYR ONE ×3 (04:34→14:55)
[2024-09-06] MEDS: MORPHINE 4 MG/ML SYR IV PRN (04:38)
[2024-09-06 05:46] LABS: Absolute Lymphocytes (CBC) 0.7 K/uL (0.7-4.9); Absolute Monocytes 0.2 K/uL (0.1-1.3); Absolute Neutrophil 3.2 K/uL (1.8-8.0); Basophils % 0.7 % (0-1.3); Eosinophils % 0.9 % (0-4.4); Hematocrit 36.8 % (39.6-49.0); Hemoglobin 13.2 g/dL (13.6-17.9); Lymphocytes % 17.4 % (15.3-44.8); MCH 29.9 pg (27.0-35.0); MPV 7.1 fL (7.6-11.3); Monocytes % 4.2 % (3.3-12.3); Neutrophils % 76.8 % (41.7-73.7); Nucleated Red Blood Cells % 0.5 % (0-0); Platelets 127 thou/uL (152-406); RBC Red Blood Cell Count 4.44 M/uL (4.33-5.43); Red Cell Distribution Width 13.5 % (12.1-15.2)
[2024-09-06 06:04] LABS: Albumin 3.7 g/dL (3.4-5.0); Albumin/Globulin Ratio 1.2 (1.1-1.8); Anion Gap 12.5 mEq/L (5.0-15.0); Bilirubin Total 1.4 mg/dL (0.2-1.0); Potassium 3.5 mEq/L (3.5-5.1); Protein, Total 6.7 g/dL (6.4-8.2)
[2024-09-06 06:33] LABS: Specific Gravity > 1.030 (1.005-1.030); Sqamous Epithelial None Seen /HPF (None Seen); Urine Bacteria None Seen /HPF (<20); Urine Bilirubin NEGATIVE (Negative); Urine Blood Trace (Negative); Urine Clarity Clear (Clear); Urine Color Light-Yellow (Yellow); Urine Culture Reflex Order NOT NEEDED; Urine Glucose 4+ (Over) (Negative); Urine Ketones 2+ (Negative); Urine Microscopic Reflex YN ORDER UMIC; Urine Nitrite NEGATIVE (Negative); Urine Protein 1+ (Negative); Urine RBC <5 /HPF (None Seen); Urine Urobilinogen Normal (Normal); Urine WBC <5 /HPF (<5)
[2024-09-06 07:57] LABS: Magnesium 1.8 mg/dL (1.6-2.4); Phosphorus 2.3 mg/dL (2.5-4.9)
[2024-09-06] MEDS ORDERED: Ringers Lactate 1,000 ML IV ONE ×2 (07:57→14:56)
[2024-09-06] MEDS ORDERED: ENOXAPARIN 40 MG/0.4 ML SQ ONE (08:33)
[2024-09-06] MEDS ORDERED: PANTOPRAZOLE 40 MG INJ ONE (08:33)
[2024-09-06] MEDS ORDERED: KCL 20 MEQ/100 mL IVPB 100 ML IV ONE (08:33)
[2024-09-06] MEDS ORDERED: MAGNESIUM SULFATE 1 gm IVPB 1 GM/100 ML BAG IV ONE (08:33)
[2024-09-06] MEDS: POTASSIUM PHOS IN 0.9 % NACL 15 MMOL/250 ML BAG IV ONE (08:45)
[2024-09-06] MEDS: MAGNESIUM SULFATE 1 gm IVPB 1 GM/100 ML BAG IV ONE (08:45)
[2024-09-06] MEDS: KCL 20 MEQ/100 mL IVPB 20 MEQ/100 ML BAG IV ONE (08:45)
[2024-09-06] MEDS: ENOXAPARIN 40 MG/0.4 ML SQ SCH (09:00)
[2024-09-06] MEDS: PANTOPRAZOLE 40 MG INJ IVP SCH (09:00)
--- NOTE | 2024-09-06 16:23 | P.PN ---
Subjective: Seen vomiting. States he has severe abdominal pain due to hypertriglyceridemia. He is a known patient of Dr. Linda OLIVERA. Mildly elevated blood pressures overnight. He remains tachycardic. Associated symptoms include nausea and fatigue. He rates the pain as a 9 out of 10 Review of Systems 10-point ROS is unremarkable as otherwise noted Abdomen: Nausea, pain, and vomiting Physical Examination - Vital Signs Temperature: 97.8 F Blood Pressure: 138/76 Pulse: 82 Respirations: 18 Pulse Ox (%): 94 - Physical Exam General: Alert, Oriented x3, Moderate distress HEENT: Atraumatic, Normocephalic Neck: Supple, No Thyromegaly Respiratory: Clear to auscultation bilaterally, Normal air movement Cardiovascular: Regular rate/rhythm, Normal S1 S2 Gastrointestinal: W/out hepatosplenomegaly, Tenderness, Guarding Musculoskeletal: No clubbing, No swelling Integumentary: No rashes Neurological: Normal speech, Normal strength at 5/5 x4 extr, Cranial nerves 3-12 intact, Normal reflexes 2+ Lymphatics: No axilla or inguinal lymphadenopathy - Studies Laboratory Data (last 24 hrs) 09/05/24 09/05/24 17:32 17:32 WBC 3.90 L Hgb 14.7 Hct 39.6 Plt Count 126 L Sodium 133 L Potassium 3.7 BUN 13 Creatinine 0.96 Glucose 300 H Total Bilirubin 1.0 AST 23 ALT 59 Alkaline Phosphatase 89 Triglycerides 343 H Cholesterol 74 LDL Cholesterol Direct 17 L HDL Cholesterol 20 L Cholesterol/HDL Ratio 3.70 Lipase 130 H Assessment and Plan - Plan Acute on chronic pancreatitis Nausea and vomiting Pain control Dehydration N.p.o. for now Possibly due to triglyceridemia Will get lipid panel Hypertension Antihypertensives continued Titrate as needed Diabetes with hyperglycemia Insulin sliding scale Accu-Chek before every meal and at bedtime Add Lantus 10 units nightly Hypertriglyceridemia Triglycerides level at 343 Dehydration Urine specific gravity greater than 1.03 Continue aggressive fluid resuscitation Thrombocytopenia Will monitor Hyponatremia resolved GI/DVT prophylaxis Advanced directive full code Discharge Plan: Home Plan to discharge in: 48 Hours - Advance Directives Does patient have a Living Will: No Does patient have a Durable POA for Healthcare: No - Code Status/Comfort Care Code Status: Full Code Time Spent Managing Pts Care (In Minutes): 48
[2024-09-06] MEDS: INSULIN GLARGINE 100 UNIT/ML SQ SCH (20:03)
[2024-09-07 04:41] LABS: Anion Gap 9.2 mEq/L (5.0-15.0); Magnesium 1.9 mg/dL (1.6-2.4); Phosphorus 1.7 mg/dL (2.5-4.9); Potassium 3.2 mEq/L (3.5-5.1)
[2024-09-07 06:11] VITALS: TEMP 97.6
[2024-09-07] MEDS: POTASSIUM PHOS IN 0.9 % NACL 15 MMOL/250 ML BAG IV ONE (08:33)
[2024-09-07 08:58] VITALS: BP 142/89
--- NOTE | 2024-09-07 09:14 | P.DS ---
Admission Date: 09/05/24 Discharge Date: 09/07/24 Disposition: ROUTINE DISCHARGE Discharge Condition: GOOD Reason for Admission: Abdominal Pain Hospital Course: 44-year-old male with a past medical history of diabetes, hypertension, hy pertriglyceridemia, chronic pancreatitis, history anxiety depression who presented with severe abdominal pain secondary to hypertriglyceridemia. He was found to have acute on chronic pancreatitis was started on aggressive IV fluid, electrolyte repletion, and pain control. His clinical condition improved over the course of his stay. He is tolerating a full liquid diet. He is ambulating in the hallways and expresses his wish to go home. He has a follow-up appointment with the live games dealer for endoscopy next week. The remainder of his medical problems are chronic and stable he is medically optimized for discharge Vital Signs/Physical Exam: Temp Pulse Resp BP Pulse Ox 97.6 F 90 12 142/89 H 99 09/07/24 08:00 09/07/24 08:00 09/07/24 08:00 09/07/24 08:00 09/07/24 08:00 General: Alert, In no apparent distress HEENT: Atraumatic, Normocephalic Neck: Supple, 2+ carotid pulse no bruit Respiratory: Clear to auscultation bilaterally, Normal air movement Cardiovascular: No edema, Normal pulses Capillary refill: <2 Seconds Gastrointestinal: Normal bowel sounds Musculoskeletal: No clubbing, No swelling Integumentary: No rashes, No breakdown Neurological: Normal gait, Normal speech Lymphatics: No axilla or inguinal lymphadenopathy Urinary: Dialysis catheter External genitalia: No edema Laboratory Data at Discharge: WBC 4.10 thou/uL (4.3-10.9) L 09/06/24 05:20 Hgb 13.2 g/dL (13.6-17.9) L D 09/06/24 05:20 Hct 36.8 % (39.6-49.0) L 09/06/24 05:20 Plt Count 127 thou/uL (152-406) L 09/06/24 05:20 Sodium 136 mEq/L (136-145) 09/07/24 04:08 Potassium 3.2 mEq/L (3.5-5.1) L 09/07/24 04:08 BUN 8 mg/dL (7-18) 09/07/24 04:08 Creatinine 0.82 mg/dL (0.70-1.30) 09/07/24 04:08 Glucose 261 mg/dL (74-106) H 09/07/24 04:08 Phosphorus 1.7 mg/dL (2.5-4.9) L 09/07/24 04:08 Magnesium 1.9 mg/dL (1.6-2.4) 09/07/24 04:08 Total Bilirubin 1.4 mg/dL (0.2-1.0) H 09/06/24 05:20 AST 28 U/L (15-37) 09/06/24 05:20 ALT 61 U/L (16-61) 09/06/24 05:20 Alkaline Phosphatase 90 U/L (45-117) 09/06/24 05:20 Triglycerides 343 mg/dL (<150) H 09/05/24 17:32 Cholesterol 74 mg/dL (<200) 09/05/24 17:32 LDL Cholesterol Direct 17 mg/dL (100-129) L 09/05/24 17:32 HDL Cholesterol 20 mg/dL (40-60) L 09/05/24 17:32 Cholesterol/HDL Ratio 3.70 09/05/24 17:32 Lipase 130 U/L (13-75) H 09/05/24 17:32 Home Medications: ALPRAZolam [Alprazolam] 1 mg PO TID 05/31/24 Escitalopram Oxalate [Lexapro] 10 mg PO DAILY 05/31/24 Insulin Glargine,Hum.rec.anlog [Lantus Solostar] 36 unit SQ BEDTIME 05/31/24 Rosuvastatin Calcium 20 mg PO BEDTIME 05/31/24 Valsartan 160 mg PO BEDTIME 05/31/24 Insulin Aspart (Niacinamide) [Fiasp 100 Unit/ml Flextouch] See Protocol SQ SEECOM 09/06/24 Lipase/Protease/Amylase [Carter Leavitt 24,000 Unit Capsule] 24,000 units PO BID 09/06/24 Fenofibrate [Tricor*] 160 mg PO BEDTIME 09/07/24 Multivitamin 1 each PO DAILY 09/07/24 Followup: NONE,NONE [Primary Care Provider] -
[2024-09-07 10:22] VITALS: O2SAT 99
== END 2024-09-07 09:48 | disposition home or self-care (01) | DRG 439 ==
LOC: ER 16:22 → ERHOLD 21:25 → 2ND 09-06 17:24
PROVIDERS: ADMIT Family Medicine; ATTEND Family Medicine
DX: K85.90 Acute pancreatitis without necrosis or infection, unspecified (principal); E87.1 Hypo-osmolality and hyponatremia; K86.1 Other chronic pancreatitis; E11.65 Type 2 diabetes mellitus with hyperglycemia; E86.0 Dehydration; E78.1 Pure hyperglyceridemia; R11.2 Nausea with vomiting, unspecified; D69.6 Thrombocytopenia, unspecified; R00.0 Tachycardia, unspecified; I10 Essential (primary) hypertension; F41.9 Anxiety disorder, unspecified; F32.A Depression, unspecified; Z90.49 Acquired absence of other specified parts of digestive tract; Z87.891 Personal history of nicotine dependence; Z79.4 Long term (current) use of insulin; Z79.899 Other long term (current) drug therapy; Z82.49 Family history of ischemic heart disease and other diseases of the circulatory system
CPT/HCPCS: 36415; 74177; 80048; 80053; 80061; 81001; 82947; 83690; 83735; 84100; 85025; 96361; 96374; 96375; 99285; J1650; J1815; J2270; J2405; J2470; J2765; J3475; J3480; J7030; J7120

== ENCOUNTER 2024-11-04 20:21 | Emergency (ER) | payer BC ==
[2024-11-04] MEDS ORDERED: ONDANSETRON 4 MG/2 ML VIAL ONE (21:08)
[2024-11-04] MEDS ORDERED: MORPHINE 4 MG/ML SYR ONE ×2 (21:08→22:48)
[2024-11-04] MEDS ORDERED: NA CHLORIDE 0.9% 1,000 ML ONE (21:08)
[2024-11-04 21:45] LABS: Absolute Eosinophils 0.1 K/uL (0-0.5); Absolute Lymphocytes (CBC) 0.9 K/uL (0.7-4.9); Absolute Monocytes 0.2 K/uL (0.1-1.3); Absolute Neutrophil 3.2 K/uL (1.8-8.0); Basophils % 0.6 % (0-1.3); Eosinophils % 1.5 % (0-4.4); Hematocrit 40.9 % (39.6-49.0); Hemoglobin 14.7 g/dL (13.6-17.9); MCH 29.3 pg (27.0-35.0); MCV 81.5 fL (80-100); MPV 8.6 fL (7.6-11.3); Monocytes % 4.2 % (3.3-12.3); Neutrophils % 73.7 % (41.7-73.7); Nucleated Red Blood Cells % 0.4 % (0-0); Platelets 168 thou/uL (152-406); RBC Red Blood Cell Count 5.03 M/uL (4.33-5.43); Red Cell Distribution Width 13.5 % (12.1-15.2)
[2024-11-05 00:21] LABS: HDL Cholesterol 17 mg/dL (40-60)
[2024-11-05 00:35] LABS: LDL, Direct 84 mg/dL (100-129)
[2024-11-05] MEDS ORDERED: ONDANSETRON 4 MG/2 ML VIAL ONE (00:54)
[2024-11-05 01:04] LABS: Anion Gap 9.1 mEq/L (5.0-15.0); Potassium 3.1 mEq/L (3.5-5.1)
[2024-11-05 01:05] LABS: Albumin 3.5 g/dL (3.4-5.0); Bilirubin Total 1.5 mg/dL (0.2-1.0); Globulin 3.4 g/dL (2.3-3.5); Protein, Total 6.9 g/dL (6.4-8.2)
[2024-11-05] MEDS ORDERED: PROMETHAZINE INJ 25 MG/ML AMP ONE ×2 (01:12→03:01)
[2024-11-05] MEDS ORDERED: MORPHINE 4 MG/ML SYR ONE (01:12)
--- NOTE | 2024-11-05 02:42 | RAD REPORT ---
EXAMINATION: Abdomen Pelvis W Contrast CLINICAL INDICATION: Male, 44 years old.vomiting TECHNIQUE: CT abdomen and pelvis was performed, after the administration of IV contrast, as per [facility] protocol. Axial, sagittal and coronal reconstructions were obtained. One or more of the following dose reduction techniques were used: Automated exposure control, adjustment of the mA and/o r kV according to patient size, and/or iterative reconstruction. Unless otherwise specified, incidental findings do not require dedicated imaging follow-up. [id number]. COMPARISON: 09/05/2024 FINDINGS: LOWER CHEST: No acute process identified.No significant pericardial effusion. Moderate circumferentia l thickening of the distal esophagus which could reflect esophagitis. Endoscopy could better evaluate. UPPER GI: Gastric varices LIVER: Hepatic steatosis, but otherwise unremarkable. GALLBLADDER/BILE DUCTS: Cholecystectomy? PANCREAS: Unchanged cystic lesion at the pancreatic tail measuring 3.8 cm which may be chronic pseudo cyst. No pancreatic duct dilatation. No evidence of acute pancreatitis. SPLEEN: Moderate splenomegaly. 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 ADRENALS: No adrenal masses. KIDNEYS AND URETERS: No hydronephrosis.No suspicious renal mass.No renal calculi.No ureteral calculi. ABDOMINAL AORTA AND OTHER VESSELS: Mild atherosclerotic changes. PERITONEUM: No abnormal free fluid. No free air. LYMPH NODES: No pathologic lymphadenopathy. ABDOMINAL WALL: Small fat containing umbilical hernia. SMALL BOWEL/COLON: Small bowel has normal course and caliber. No colonic wall thickening or pericolon ic inflammatory changes.Normal appendix. Mild diverticulosis without diverticulitis. Low formed stool burden. URINARY BLADDER: Underdistended but grossly unremarkable. REPRODUCTIVE ORGANS: No pathologic process. MUSCULOSKELETAL: No acute or suspicious osseous abnormality. ADDITIONAL FINDINGS: None. IMPRESSION: No acute findings within the abdomen or pelvis. No significant change from prior. Moderate thickening of the distal esophagus which may reflect esophagitis. Splenomegaly with perisplenic collaterals and gastric varices. This could be sequela of remote portal vein occlusion. Ancillary findings as noted above.
--- NOTE | 2024-11-05 03:02 | EDPHYS ---
Physician Documentation [facility] Name: Alex Augsute Age: 44 yrs Sex: Male : 1980 Arrival Date: 11/04/2024 Time: 20:21 Bed 5 Private MD: ED Physician Anant Bautista HPI: 11/04 21:33 This 44 yrs old Male presents to ER via Ambulatory with complaints of Abdominal Pain, rt Decreased Appetite. 21:33 Patient with history of diabetes, chronic pancreatitis presents to the ED with upper rt abdominal pain for the past 3 days. Patient states that he has not had his insulin in more than a week secondary to a family member at hospital. States that his Dexcom is not working at that time as well. The patient states the symptoms are consistent with previous episodes of pancreatitis, he tried to manage at home eating, only drinking sips of water. He developed nausea and vomiting today which prompted him to come in for further evaluation. Symptoms are moderate in severity, no other aggravating alleviating factors.. Historical: - Allergies: 20:40 No Known Allergies; cm10 - PMHx: 20:40 angina pectoris; Anxiety; Chronic Pancreatitis; depressive disorder; Diabetes - IDDM; cm10 GERD; High Triglycerides; Hypertensive disorder; - Immunization history:: Adult Immunizations up to date. - Infectious Disease History:: Denies. - Social history:: Smoking status: Reported history of juuling and/or vaping. - Family history:: not pertinent. ROS: 21:33 Constitutional: Negative for fever, chills, and weight loss, Cardiovascular: Negative rt for chest pain, palpitations, and edema, Respiratory: Negative for shortness of breath, cough, wheezing, and pleuritic chest pain, MS/Extremity: Negative for injury and deformity, Skin: Negative for injury, rash, and discoloration, Neuro: Negative for headache, weakness, numbness, tingling, and seizure, 21:33 Abdomen/GI: Positive for abdominal pain, nausea and vomiting, Exam: 21:33 Constitutional: This is a well developed, well nourished patient who is awake, alert, rt and in no acute distress. Head/Face: Normocephalic, atraumatic. Chest/axilla: Normal chest wall appearance and motion. Nontender with no deformity. No lesions are appreciated. Cardiovascular: Regular rate and rhythm with a normal S1 and S2. No gallops, murmurs, or rubs. Normal PMI, no JVD. No pulse deficits. Respiratory: Lungs have equal breath sounds bilaterally, clear to auscultation and percussion. No rales, rhonchi or wheezes noted. No increased work of breathing, no retractions or nasal flaring. Skin: Warm, dry with normal turgor. Normal color with no rashes, no lesions, and no evidence of cellulitis. MS/ Extremity: Pulses equal, no cyanosis. Neurovascular intact. Full, normal range of motion. Neuro: Awake and alert, GCS 15, oriented to person, place, time, and situation. Cranial nerves II-XII grossly intact. Motor strength 5/5 in all extremities. Sensory grossly intact. Cerebellar exam normal. Normal gait. 21:33 Abdomen/GI: Tenderness to the epigastrium without rebound, guarding, distention, Vital Signs: 20:38 BP 123 / 94; Pulse 121; Resp 18; Temp 98.8(O); Pulse Ox 99% on R/A; Weight 88 kg; cm10 Height 5 ft. 10 in. ; Pain 10/10; 21:42 BP 110 / 79; Pulse 90; Resp 18; Temp 98.8; Pulse Ox 95% ; Pain 6/10; bm8 22:45 BP 141 / 95; Pulse 88; Resp 18; Temp 98.8; Pulse Ox 96% ; Pain 7/10; bm8 23:30 BP 149 / 93; Pulse 94; Resp 16; Pulse Ox 98% on R/A; dd2 11/05 02:00 BP 129 / 87; Pulse 88; Resp 17; Pulse Ox 95% ; dd2 03:10 BP 134 / 82; Pulse 85; Resp 16; Temp 98.4; Pulse Ox 100% on R/A; dd2 11/04 20:38 Body Mass Index 27.84 (88.00 kg, 177.8 cm) cm10 11/04 20:38 Pain Scale: Adult cm10 21:42 Pain Scale: Adult bm8 22:45 Pain Scale: Adult bm8 [place] Coma Score: 11/04 21:20 Eye Response: spontaneous(4). Motor Response: obeys commands(6). Verbal Response: dd2 oriented(5). Total: 15. 21:42 Eye Response: spontaneous(4). Motor Response: obeys commands(6). Verbal Response: bm8 oriented(5). Total: 15. 22:45 Eye Response: spontaneous(4). Motor Response: obeys commands(6). Verbal Response: bm8 oriented(5). Total: 15. MDM: 20:56 Medical Screening Exam initiated rt 11/05 03:43 Differential Diagnosis Pancreatitis, epigastric pain, nausea, vomiting, hyper rt lipidemia. Data reviewed: vital signs, nurses notes, lab test result(s), radiologic studies. Consideration of Admission/Observation Escalation of care including admission/observation considered. Discussed with patient admission to the hospital, states that without signs of inflammation of the pancreas, he wishes to go home and be represcribed pain medications. Return precautions were discussed with the patient, verbalized understanding. I considered the following discharge prescriptions or medication management in the emergency department Medications were administered in the Emergency Department. See MAR. Independent interpretation of the following test(s) in the Emergency Department CT Scan: My interpretation is No bowel obstruction seen on interpretation of CT scan images. Care significantly affected by the following chronic conditions: Chronic pancreatitis, diabetes, hyperlipidemia. Counseling: I had a detailed discussion with the patient and/or guardian regarding the historical points, exam findings, and any diagnostic results supporting the discharge/admit diagnosis, lab results, radiology results, the need for outpatient follow up, to return to the emergency department if symptoms worsen or persist or if there are any questions or concerns that arise at home. Response to treatment: the patient's symptoms have markedly improved after treatment. 11/04 20:50 Order name: Glucose, Ancillary Testing; Complete Time: 20:50 EDMS 11/04 20:52 Order name: Glucose, Ancillary Testing EDMS 11/04 21:02 Order name: CBC with Diff; Complete Time: 22:57 rt 11/04 21:02 Order name: CMP; Complete Time: 01:06 rt 11/04 21:02 Order name: Lipase; Complete Time: 01:06 rt 11/04 23:50 Order name: Lipid Profile; Complete Time: 00:53 EDMS 11/05 00:26 Order name: LDL, Direct; Complete Time: 00:53 EDMS 11/05 01:08 Order name: CT Abd/Pelvis - IV Contrast Only; Complete Time: 02:54 rt 11/04 21:02 Order name: IV Saline Lock; Complete Time: 21:15 rt 11/04 21:02 Order name: Labs collected and sent; Complete Time: 21:15 rt 11/04 21:38 Order name: Misc. Order: Recollect green top; Complete Time: 21:41 hw Administered Medications: 11/04 21:14 Drug: Ondansetron IVP 4 mg IVP once; over 2 minutes Route: IVP; Site: right antecubital;dd2 21:42 Follow up: Response: No adverse reaction bm8 21:14 Drug: morphine IVP or IV 4 mg IVP once over 4 mins Route: IVP; Infused Over: 4 mins; dd2 Site: right antecubital; 21:42 Follow up: Response: No adverse reaction bm8 21:14 Drug: NS 0.9% IV 1000 ml IV at 1 bolus Per protocol; to be given as a bolus over 60 dd2 minutes Route: IV; Rate: 1 bolus; Site: right antecubital; 22:14 Follow up: IV Status: Completed infusion; IV Intake: 1000ml dd2 22:55 Drug: morphine IVP or IV 4 mg IVP once over 4 mins Route: IVP; Infused Over: 4 mins; bm8 Site: right antecubital; 23:10 Follow up: Response: No adverse reaction dd2 11/05 00:58 Drug: Ondansetron IVP 4 mg IVP once; over 2 minutes Route: IVP; Site: right antecubital;dd2 01:13 Follow up: Response: No adverse reaction dd2 01:21 Drug: morphine IVP or IV 4 mg IVP once over 4 mins Route: IVP; Infused Over: 4 mins; dd2 Site: right antecubital; 01:36 Follow up: Response: No adverse reaction dd2 01:21 Drug: Promethazine IVP 12.5 mg IVP once Route: IVP; Site: right antecubital; dd2 01:36 Follow up: Response: No adverse reaction dd2 03:04 Drug: Promethazine IVP 12.5 mg IVP once Route: IVP; Site: right antecubital; dd2 03:19 Follow up: Response: No adverse reaction dd2 Point of Care Testing: Blood Glucose: 11/04 20:38 Blood Glucose: 339 mg/dL; cm10 Ranges: Critical Glucose Levels:Adult <50 mg/dl or >400 mg/dl <40 mg/dl or >180 mg/dl Disposition Summary: 11/05/24 03:01 Discharge Ordered Notes: Location: Home rt Problem: an acute exacerbation rt Symptoms: have improved rt Condition: Stable rt Diagnosis - Nausea with vomiting, unspecified rt - Epigastric pain rt Followup: rt - With: Private Physician - When: 2 - 3 days - Reason: Discharge Instructions: - Discharge Summary Sheet rt - Nausea and Vomiting, Adult rt Forms: - Medication Reconciliation Form rt - Antibiotic Education rt - Prescription Opioid Use rt - Patient Portal Instructions rt - Leadership Thank You Letter rt Prescriptions: - ondansetron 4 mg Oral Tablet,disintegrating - take 1 tablet ORAL route every 6 hours; 18 tablet; Refills: 0, Product rt Selection Permitted Signatures: Dispatcher [employer] EDMS Anant Bautista MD MD rt Janelle Avilez RN RN cm10 Jim Dawn RN RN bm8 MELCHOR AUGUSTE RN RN dd2 Cherie Muñoz Corrections: (The following items were deleted from the chart) 23:49 21:03 LIPID PROFILE+C.LAB.BRZ ordered. EDMS EDMS 11/05 01:10 01:10 Abdomen Pelvis W Con+CT.RAD.BRZ ordered. EDMS EDMS
--- NOTE | 2024-11-05 03:02 | ER ---
Nurse's Notes [facility] Name: Alex Auguste Age: 44 yrs Sex: Male : 1980 Arrival Date: 11/04/2024 Time: 20:21 Bed 5 Private MD: Diagnosis: Nausea with vomiting, unspecified;Epigastric pain Presentation: 11/04 20:38 Chief complaint: Patient states: Upper abdominal pain onset 3 days ago. Pt reports cm10 nausea and vomiting. Pt also reports elevated blood sugar due to not having insulin all week. Coronavirus screen: Client denies travel out of the [place] in the last 14 days. Ebola Screen: Patient denies travel to an Ebola-affected area in the 21 days before illness onset. Initial Sepsis Screen: Does the patient meet any 2 criteria? HR > 90 bpm. Does the patient have a suspected source of infection? No. Patient's initial sepsis screen is negative. Risk Assessment: Do you want to hurt yourself or someone else? Patient reports no desire to harm self or others. Onset of symptoms was November 04, 2024. 20:38 Method Of Arrival: Ambulatory cm10 20:38 Acuity: [place] 3 cm10 Triage Assessment: 20:40 General: Appears in no apparent distress. uncomfortable, Behavior is calm, cooperative. cm10 Pain: Complains of pain in epigastric area and left upper quadrant Pain does not radiate. Pain currently is 10 out of 10 on a pain scale. Quality of pain is described as dull, Pain began 2-3 days ago. Is continuous. Neuro: No deficits noted. Level of Consciousness is awake, alert, obeys commands, Oriented to person, place, time, situation, Appropriate for age. Respiratory: No deficits noted. Airway is patent Respiratory effort is even, unlabored, Respiratory pattern is regular, symmetrical. Historical: - Allergies: 20:40 No Known Allergies; cm10 - PMHx: 20:40 angina pectoris; Anxiety; Chronic Pancreatitis; depressive disorder; Diabetes - IDDM; cm10 GERD; High Triglycerides; Hypertensive disorder; - Immunization history:: Adult Immunizations up to date. - Infectious Disease History:: Denies. - Social history:: Smoking status: Reported history of juuling and/or vaping. - Family history:: not pertinent. Screenin:20 [facility] ED Fall Risk Assessment (Adult) History of falling in the last 3 months, dd2 including since admission No falls in past 3 months (0 pts) Confusion or Disorientation No (0 pts) Intoxicated or Sedated No (0 pts) Impaired Gait No (0 pts) Mobility Assist Device Used No (0 pt) Altered Elimination No (0 pt) Score/Fall Risk Level 0 - 2 = Low Risk Oriented to surroundings, Maintained a safe environment, Educated pt \T\ family on fall prevention, incl call for assistance when getting out of bed, Assessed \T\ reinforced patient's understanding of fall precautions, Hourly rounding (assess needs \T\ fall precautionary measures) done. Abuse screen: Denies threats or abuse. Denies injuries from another. Nutritional screening: Has had N/V for 3 or more days. Tuberculosis screening: No symptoms or risk factors identified. Assessment: 21:20 General: Appears in no apparent distress. uncomfortable, Behavior is calm, cooperative, dd2 appropriate for age. Pain: Complains of pain in left upper quadrant and epigastric area Pain currently is 8 out of 10 on a pain scale. Quality of pain is described as crampy, sharp, Pain began 2-3 days ago. Neuro: No deficits noted. Level of Consciousness is awake, alert, obeys commands, Oriented to person, place, time, situation, Appropriate for age. Cardiovascular: No deficits noted. JVD is absent Patient's skin is warm and dry. Respiratory: No deficits noted. Airway is patent Respiratory effort is even, unlabored, Respiratory pattern is regular, symmetrical. GI: Abdomen is non-distended, Bowel sounds present X 4 quads. Abd is soft X 4 quads Abdomen is tender to palpation in epigastric area and left upper quadrant Reports upper abdominal pain, epigastric pain, nausea, vomiting. : No deficits noted. No signs and/or symptoms were reported regarding the genitourinary system. EENT: No deficits noted. No signs and/or symptoms were reported regarding the EENT system. Derm: No deficits noted. No signs and/or symptoms reported regarding the dermatologic system. Skin is healthy with good turgor, Skin is dry, Skin is normal, Skin temperature is warm. Musculoskeletal: No deficits noted. No signs and/or symptoms reported regarding the musculoskeletal system. Circulation, motion, and sensation intact. Range of motion: intact in all extremities. 22:45 Reassessment: Patient appears in no apparent distress at this time. Patient and/or bm8 family updated on plan of care and expected duration. Pain level reassessed. Patient is alert, oriented x 3, equal unlabored respirations, skin warm/dry/pink. pt reports increased pain level, provider informed. 22:55 Reassessment: per PT accu check device BGL is 108. bm8 11/05 00:59 Reassessment: No changes from previously documented assessment. Patient states symptoms dd2 have not improved. PT ACTIVELY VOMITING. C/O ABDOMINAL PAIN 02/18. Vital Signs: 11/04 20:38 BP 123 / 94; Pulse 121; Resp 18; Temp 98.8(O); Pulse Ox 99% on R/A; Weight 88 kg; cm10 Height 5 ft. 10 in. ; Pain 04/20; 21:42 BP 110 / 79; Pulse 90; Resp 18; Temp 98.8; Pulse Ox 95% ; Pain 6/10; bm8 22:45 BP 141 / 95; Pulse 88; Resp 18; Temp 98.8; Pulse Ox 96% ; Pain 7/10; bm8 23:30 BP 149 / 93; Pulse 94; Resp 16; Pulse Ox 98% on R/A; dd2 11/05 02:00 BP 129 / 87; Pulse 88; Resp 17; Pulse Ox 95% ; dd2 03:10 BP 134 / 82; Pulse 85; Resp 16; Temp 98.4; Pulse Ox 100% on R/A; dd2 11/04 20:38 Body Mass Index 27.84 (88.00 kg, 177.8 cm) cm10 11/04 20:38 Pain Scale: Adult cm10 21:42 Pain Scale: Adult bm8 22:45 Pain Scale: Adult bm8 [place] Coma Score: 11/04 21:20 Eye Response: spontaneous(4). Motor Response: obeys commands(6). Verbal Response: dd2 oriented(5). Total: 15. 21:42 Eye Response: spontaneous(4). Motor Response: obeys commands(6). Verbal Response: bm8 oriented(5). Total: 15. 22:45 Eye Response: spontaneous(4). Motor Response: obeys commands(6). Verbal Response: bm8 oriented(5). Total: 15. ED Course: 20:24 Patient arrived in ED. gm2 20:25 Anant Bautista MD is Attending Physician. rt 20:40 Triage completed. cm10 20:40 Arm band placed on right wrist. Patient placed in waiting room. cm10 21:20 Patient has correct armband on for positive identification. Bed in low position. Call dd2 light in reach. Side rails up X 1. Provided Education on: MEDICATION EDUCATION, RESULT TIMES. Client placed on continuous cardiac and pulse oximetry monitoring. NIBP monitoring applied. Door closed. Noise minimized. Pillow given. Verbal reassurance given. 21:20 No provider procedures requiring assistance completed. Initial lab(s) drawn, by ED dd2 staff, sent to lab. Inserted saline lock: 20 gauge in right antecubital area, using aseptic technique. Blood collected. Flushed with 10 mL NS. Patient maintains SpO2 saturation greater than 95% on room air. 21:41 Jim Dawn, RN is Primary Nurse. bm8 21:43 Lab(s) recollected, by ED staff, sent to lab. bm8 11/05 02:07 CT Abd/Pelvis - IV Contrast Only In Process Unspecified. EDMS 03:31 IV discontinued, intact, bleeding controlled, No redness/swelling at site. Pressure dd2 dressing applied. Administered Medications: 11/04 21:14 Drug: Ondansetron IVP 4 mg IVP once; over 2 minutes Route: IVP; Site: right antecubital;dd2 21:42 Follow up: Response: No adverse reaction bm8 21:14 Drug: morphine IVP or IV 4 mg IVP once over 4 mins Route: IVP; Infused Over: 4 mins; dd2 Site: right antecubital; 21:42 Follow up: Response: No adverse reaction bm8 21:14 Drug: NS 0.9% IV 1000 ml IV at 1 bolus Per protocol; to be given as a bolus over 60 dd2 minutes Route: IV; Rate: 1 bolus; Site: right antecubital; 22:14 Follow up: IV Status: Completed infusion; IV Intake: 1000ml dd2 22:55 Drug: morphine IVP or IV 4 mg IVP once over 4 mins Route: IVP; Infused Over: 4 mins; bm8 Site: right antecubital; 23:10 Follow up: Response: No adverse reaction dd2 11/05 00:58 Drug: Ondansetron IVP 4 mg IVP once; over 2 minutes Route: IVP; Site: right antecubital;dd2 01:13 Follow up: Response: No adverse reaction dd2 01:21 Drug: morphine IVP or IV 4 mg IVP once over 4 mins Route: IVP; Infused Over: 4 mins; dd2 Site: right antecubital; 01:36 Follow up: Response: No adverse reaction dd2 01:21 Drug: Promethazine IVP 12.5 mg IVP once Route: IVP; Site: right antecubital; dd2 01:36 Follow up: Response: No adverse reaction dd2 03:04 Drug: Promethazine IVP 12.5 mg IVP once Route: IVP; Site: right antecubital; dd2 03:19 Follow up: Response: No adverse reaction dd2 Medication: 11/04 21:20 VIS not applicable for this client. dd2 Point of Care Testing: Blood Glucose: 20:38 Blood Glucose: 339 mg/dL; cm10 Ranges: Intake: 22:14 IV: 1000ml; Total: 1000ml. dd2 Outcome: 11/05 03:01 Discharge ordered by . rt 03:31 Discharged to home ambulatory, dd2 03:31 Condition: improved 03:31 Discharge instructions given to patient, Instructed on discharge instructions, follow up and referral plans. medication usage, Demonstrated understanding of instructions, follow-up care, medications, Prescriptions given X 1, 03:31 Patient left the ED. dd2 Signatures: Dispatcher [employer] EDAnant Mccormick MD MD rt Janelle Avilez RN RN cm10 Leona Riggins 2 Jim Dawn RN RN bm8 MELCHOR AUGUSTE RN RN dd2
[2024-11-07 01:39] VITALS: BP 134/82; TEMP 98.4; O2SAT 100
== END 2024-11-05 03:31 | disposition home or self-care (01) ==
LOC: ER 20:21
DX: R10.13 Epigastric pain (principal); R11.2 Nausea with vomiting, unspecified
CPT/HCPCS: 96361; 85025; 36415; 83721; 80061; 82947; 83690; 80053; 74177; 96375; 96374; 99284; Q9967; J2550 ×2; J2405 ×2; J7030

== ENCOUNTER 2025-01-03 22:29 | Emergency (ER) | payer BC ==
[2012-03-06 01:58] VITALS: BP 138/67
[2025-01-03] MEDS ORDERED: NA CHLORIDE 0.9% 1,000 ML ONE (23:26)
[2025-01-03] MEDS ORDERED: FENTANYL CITR 100 MCG/2 ML ONE (23:26)
[2025-01-03] MEDS ORDERED: ONDANSETRON 4 MG/2 ML VIAL ONE (23:26)
[2025-01-04] MEDS ORDERED: HYDROCODONE/APAP 10/325 TAB ONE (00:24)
[2025-01-04] MEDS ORDERED: KETOROLAC 30 MG/ML INJ ONE (00:24)
[2025-01-04 07:11] LABS: Albumin 4.1 g/dL (3.4-5.0); Albumin/Globulin Ratio 1.4 (1.1-1.8); Anion Gap 9.8 mEq/L (5.0-15.0); Bilirubin Total 0.7 mg/dL (0.2-1.0); Globulin 2.9 g/dL (2.3-3.5); Potassium 3.8 mEq/L (3.5-5.1)
[2025-01-04 09:22] LABS: Absolute Eosinophils 0.1 K/uL (0-0.5); Absolute Lymphocytes (CBC) 1.1 K/uL (0.7-4.9); Absolute Monocytes 0.2 K/uL (0.1-1.3); Absolute Neutrophil 2.3 K/uL (1.8-8.0); Basophils % 0.8 % (0-1.3); Eosinophils % 1.5 % (0-4.4); Hematocrit 38.2 % (39.6-49.0); Hemoglobin 13.4 g/dL (13.6-17.9); Lymphocytes % 30.6 % (15.3-44.8); MCH 28.6 pg (27.0-35.0); MCV 81.5 fL (80-100); MPV 7.7 fL (7.6-11.3); Monocytes % 4.8 % (3.3-12.3); Neutrophils % 62.3 % (41.7-73.7); Platelets 121 thou/uL (152-406); RBC Red Blood Cell Count 4.69 M/uL (4.33-5.43); Red Cell Distribution Width 13.4 % (12.1-15.2)
--- NOTE | 2025-01-04 10:38 | RAD REPORT ---
EXAMINATION: CT Abdomen Pelvis W Contrast CLINICAL INDICATION: Male, 44 years old. PAIN TECHNIQUE: CT abdomen and pelvis was performed, after the administration of IV contrast, as per [facility] protocol. Axial, sagittal and coronal reconstructions were obtained. One or more of the following dose reduction techniques were used: Automated exposure control, adjustment of the mA and k V according to patient size, and iterative reconstruction. Unless otherwise specified, incidental findings do not require dedicated imaging follow-up. COMPARISON: 11/05/2024 FINDINGS: LOWER CHEST: The visualized lung bases are clear. LIVER: Normal in size and contour. No focal lesion. BILIARY SYSTEM: Status post cholecystectomy. SPLEEN: Stable enlargement, measuring up to 17.5 cm in long axis. 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 No focal lesion. PANCREAS: Stable ovoid cystic lesion at the pancreatic tail with mild marginal wall calcifications, m easuring 3.1 x 3.8 cm, could represent a pseudocyst.. No ductal dilation, or saroj-pancreatic fluid. ADRENALS: Normal; no mass. KIDNEYS: Normal size and contour. No hydronephrosis. URINARY BLADDER: Decompressed limiting evaluation. GASTROINTESTINAL TRACT: No evidence of free air, significant intra-abdominal free fluid, bowel obstru ction or abscess. Mild colonic diverticulosis without evidence of acute diverticulitis. APPENDIX: Normal appendix. LYMPH NODES: No lymphadenopathy. MUSCULOSKELETAL: No acute or suspicious osseous abnormality. ADDITIONAL FINDINGS: None. IMPRESSION: No acute or concerning abnormalities seen in the abdomen or pelvis. Stable incidental findings as above.
== END 2025-01-04 00:25 | disposition home or self-care (01) ==
LOC: ER 22:29
DX: R10.12 Left upper quadrant pain (principal); R10.11 Right upper quadrant pain; R10.13 Epigastric pain; R11.0 Nausea
CPT/HCPCS: 96361; 85025; 36415; 83690; 80053; 74177; 96375; 96374; 99284; Q9967; J3010; J2405; J7030

== ENCOUNTER 2025-03-01 06:57 | Emergency (ER) | payer BC ==
[2025-03-01] MEDS ORDERED: ONDANSETRON 4 MG/2 ML VIAL ONE (07:26)
[2025-03-01] MEDS ORDERED: PROMETHAZINE INJ 25 MG/ML AMP ONE ×2 (07:26→14:11)
[2025-03-01] MEDS ORDERED: NA CHLORIDE 0.9% 1,000 ML ONE ×3 (07:27→09:27)
[2025-03-01] MEDS ORDERED: FAMOTIDINE 20 MG/2 ML VIAL IV ONE (07:27)
[2025-03-01] MEDS ORDERED: MORPHINE 4 MG/ML SYR ONE (07:27)
[2025-03-01 07:36] LABS: Absolute Lymphocytes (CBC) 0.3 K/uL (0.7-4.9); Hematocrit 37.4 % (39.6-49.0); Hemoglobin 13.6 g/dL (13.6-17.9); MCH 29.5 pg (27.0-35.0); MCHC 36.2 g/dL (32.0-36.0); MCV 81.5 fL (80-100); MPV 7.1 fL (7.6-11.3); Nucleated RBC Absolute Count 0.0 (0-0); Nucleated Red Blood Cells % 0.1 % (0-0); RBC Red Blood Cell Count 4.59 M/uL (4.33-5.43); White Blood Count 5.60 thou/uL (4.3-10.9)
--- NOTE | 2025-03-01 07:56 | EDPHYS ---
Physician Documentation [facility] Name: Alex Auguste Age: 44 yrs Sex: Male : 1980 Arrival Date: 03/01/2025 Time: 06:57 Bed 7 Private MD: ED Physician Manpreet Nina HPI: 03/01 07:49 This 44 yrs old Male presents to ER via Ambulatory with complaints of maegan Abdominal Pain, Vomiting. 07:49 The patient presents to the emergency department with nausea, vomiting, abdominal pain, maegan of the right upper quadrant, left upper quadrant, right lower quadrant and left lower quadrant. Onset: The symptoms/episode began/occurred yesterday. Possible causes: unknown, pancreatic biopsy. The symptoms are aggravated by pressure, The symptoms are alleviated by nothing. Associated signs and symptoms: The patient has no apparent associated signs or symptoms. Severity of symptoms: At their worst the symptoms were moderate severe in the emergency department the symptoms are unchanged. The patient has experienced similar episodes in the past, multiple times. Historical: - Allergies: 07:15 No Known Allergies; db - PMHx: 07:07 angina pectoris; Anxiety; Chronic Pancreatitis; depressive disorder; Diabetes - IDDM; ss GERD; High Triglycerides; Hypertensive disorder; - PSHx: 07:07 Cholecystectomy; hand; ss - Immunization history:: Adult Immunizations unknown. - Infectious Disease History:: Denies. - Social history:: Smoking status: unknown. ROS: 07:51 Constitutional: Negative for fever, chills, and weight loss, Eyes: Negative for injury, maegan pain, redness, and discharge, ENT: Negative for injury, pain, and discharge, Neck: Negative for injury, pain, and swelling, Cardiovascular: Negative for chest pain, palpitations, and edema, Respiratory: Negative for shortness of breath, cough, wheezing, and pleuritic chest pain, Back: Negative for injury and pain, : Negative for injury, bleeding, discharge, and swelling, MS/Extremity: Negative for injury and deformity, Skin: Negative for injury, rash, and discoloration, Neuro: Negative for headache, weakness, numbness, tingling, and seizure, Psych: Negative for depression, anxiety, suicide ideation, homicidal ideation, and hallucinations, Allergy/Immunology: Negative for hives, rash, and allergies, Endocrine: Negative for neck swelling, polydipsia, polyuria, polyphagia, and marked weight changes, Hematologic/Lymphatic: Negative for swollen nodes, abnormal bleeding, and unusual bruising, 07:51 Abdomen/GI: Positive for abdominal pain, nausea and vomiting, of the right upper quadrant, left upper quadrant, right lower quadrant and left lower quadrant, 07:51 MS/extremity: Negative for acute changes, decreased range of motion, deformity, Exam: 07:51 Constitutional: This is a well developed, well nourished patient who is awake, alert, maegan and in no acute distress. Head/Face: Normocephalic, atraumatic. Eyes: Pupils equal round and reactive to light, extra-ocular motions intact. Lids and lashes normal. Conjunctiva and sclera are non-icteric and not injected. Cornea within normal limits. Periorbital areas with no swelling, redness, or edema. ENT: Nares patent. No nasal discharge, no septal abnormalities noted. Tympanic membranes are normal and external auditory canals are clear. Oropharynx with no redness, swelling, or masses, exudates, or evidence of obstruction, uvula midline. Mucous membranes moist. Neck: Trachea midline, no thyromegaly or masses palpated, and no cervical lymphadenopathy. Supple, full range of motion without nuchal rigidity, or vertebral point tenderness. No Meningismus. Chest/axilla: Normal chest wall appearance and motion. Nontender with no deformity. No lesions are appreciated. Respiratory: Lungs have equal breath sounds bilaterally, clear to auscultation and percussion. No rales, rhonchi or wheezes noted. No increased work of breathing, no retractions or nasal flaring. Back: No spinal tenderness. No costovertebral tenderness. Full range of motion. Male : Normal genitalia with no discharge or lesions. Skin: Warm, dry with normal turgor. Normal color with no rashes, no lesions, and no evidence of cellulitis. 07:51 Cardiovascular: Rate: tachycardic, actual rate is 109 bpm, Rhythm: regular, Pulses: Pulses are 4+ in bilateral radial, brachial, femoral, popliteal, posterior tibial and and dorsalis pedis arteries.. Heart sounds: normal, Edema: is not appreciated, JVD: is not appreciated, 07:51 ECG was reviewed by the Attending Physician. 08:31 ECG was reviewed by the Attending Physician. [facility] Vital Signs: 07:10 BP 144 / 88; Pulse 120; Resp 22; Temp 99.2; Pulse Ox 94% on R/A; Weight 90.72 kg; db Height 5 ft. 10 in. ; Pain 10/10; 07:30 BP 106 / 73; Pulse 109; Resp 18; Pulse Ox 95% ; db 08:44 BP 97 / 64; Pulse 110; Resp 20; Pulse Ox 94% ; bp 09:10 BP 92 / 54; Pulse 112; Pulse Ox 94% ; db 09:30 BP 103 / 66; Pulse 115; Resp 18; Pulse Ox 97% on R/A; db 10:13 BP 101 / 68; Pulse 115; ss 11:30 BP 101 / 70; Pulse 114; Resp 18; Pulse Ox 96% ; db 12:30 BP 108 / 66; Pulse 115; Resp 18; Pulse Ox 95% on R/A; db 13:00 BP 104 / 74; Pulse 118; Resp 18; Pulse Ox 96% ; db 14:07 BP 121 / 80; Pulse 118; Resp 18; Pulse Ox 98% ; db 07:10 Body Mass Index 28.70 (90.72 kg, 177.8 cm) db 07:10 Pain Scale: Adult db MDM: 07:09 Medical Screening Exam initiated maegan 07:52 Differential diagnosis: Nonspecific abd pain, gastritis, cholecystitis, pancreatitis, maegan appendicitis, diverticulitis, viral gastroenteritis, gastroenteritis, appendicitis, bowel obstruction, coronary artery disease, diverticulitis, gastritis, GI Bleed, Hepatitis, Irritable bowel syndrome, sympomatic leaking abdominal aortic aneurysm, Mesenteric ischemia or infarction, myocardia ischemia or infarction, non-specific abd pain, pancreatitis, Peptic Ulcer Disease, Perf. Duodenal Ulcer, Perf. Gastric Ulcer, Peritonitis, Prostatitis, Pyelonephritis, Ureterolithiasis. Data reviewed: vital signs, nurses notes, lab test result(s), EKG, radiologic studies, CT scan. Consideration of Admission/Observation Escalation of care including admission/observation considered. I considered the following discharge prescriptions or medication management in the emergency department Medications were administered in the Emergency Department. See MAR. Independent interpretation of the following test(s) in the Emergency Department EKG: See my EKG interpretation above. Test considered but Not performed: Ultrasound no abd usg. Historians other than the Patient: pt well informed. Care significantly affected by the following chronic conditions: Diabetes, Hypertension, Obesity, chronic pancreatitis. Counseling: I had a detailed discussion with the patient and/or guardian regarding the historical points, exam findings, and any diagnostic results supporting the discharge/admit diagnosis, lab results, radiology results, the need to transfer to another facility, for higher level of care, [facility] does not immediately have the required specialist. 03/01 07:11 Order name: CBC with Diff; Complete Time: 08:24 [facility] 03/01 07:11 Order name: CMP; Complete Time: 08:47 [facility] 03/01 07:11 Order name: Lipase; Complete Time: 08:47 [facility] 03/01 08:21 Order name: Manual Differential; Complete Time: 08:24 EDMS 03/01 08:31 Order name: Troponin HS; Complete Time: 09:15 [facility] 03/01 09:14 Order name: Blood Culture Adult (2) [facility] 03/01 09:14 Order name: Lactate w/ 2H reflex if indic.; Complete Time: 12:48 [facility] 03/01 08:21 Order name: Abdomen ; Complete Time: 08:47 EDMS 03/01 07:11 Order name: IV Saline Lock; Complete Time: 07:40 [facility] 03/01 07:11 Order name: Labs collected and sent; Complete Time: 07:40 [facility] 03/01 07:38 Order name: EKG - Nurse/Tech; Complete Time: 08:28 [facility] 03/01 07:49 Order name: IV Saline Lock - Large Bore; Complete Time: 08:02 [facility] 03/01 10:13 Order name: Vital Signs; Complete Time: 10:55 [facility] EC:31 Rate is 107 beats/min. Rhythm is regular. QRS [place] is Normal. SD interval is normal. [facility] QRS interval is normal. QT interval is normal. No Q waves. T waves are Normal. ST Segment is depressed in leads II, III, aVF. Clinical impression: NSR w/ Non-specific ST/T Changes and No evidence of ischemia. Interpreted by me. Reviewed by me. Administered Medications: 07:15 Drug: HYDROmorphone IVP 1 mg IVP once Route: IVP; Site: right antecubital; db 09:22 Follow up: Response: No adverse reaction db 07:30 Drug: Famotidine IVP 20 mg IVP once; dilute with 10 mL 0.9% NaCl; give over 2 minutes db Route: IVP; Site: right antecubital; 14:30 Follow up: Response: No adverse reaction db 07:30 Drug: morphine IVP or IV 4 mg IVP once over 4 mins Route: IVP; Infused Over: 4 mins; db Site: right antecubital; 14:31 Follow up: Response: No adverse reaction db 07:30 Drug: NS 0.9% IV 1000 ml IV at 1 bolus Per protocol; to be given as a bolus over 60 db minutes Route: IV; Rate: 1 bolus; Site: right antecubital; 14:31 Follow up: Response: No adverse reaction; IV Status: Completed infusion db 07:30 Drug: Ondansetron IVP 8 mg IVP once; over 2 minutes Route: IVP; Site: right antecubital;db 14:31 Follow up: Response: No adverse reaction db 07:30 Drug: Promethazine IM 25 mg IM once Route: IM; Site: right deltoid; db 14:30 Follow up: Response: No adverse reaction db 08:15 Drug: NS 0.9% IV 1000 ml IV at 1000 ml once; to be given as a bolus over 60 minutes db Route: IV; Rate: 1000 ml; Site: right antecubital; 14:31 Follow up: Response: No adverse reaction; IV Status: Completed infusion db 08:20 Drug: Piperacillin-Tazobactam IVPB 3.375 grams IVPB once over 60 mins; (mix in NS 100 db mL) Route: IVPB; Infused Over: 60 mins; Site: right antecubital; 09:00 Follow up: Response: No adverse reaction; IV Status: Completed infusion; IV Intake: db 100ml 10:15 Drug: Banana Bag - (Multivitamin IV 1 amp, NS 0.9% IV 1000 ml, Thiamine IV 100 mg, db foLIC Acid IVPB 1 mg) IV at 150 ml/hr once Route: IV; Rate: 150 ml/hr; Site: right antecubital; 14:30 Follow up: Response: No adverse reaction; IV Status: Infusion continued upon transfer db 10:15 Drug: NS 0.9% IV (30 ml/kg) 30 ml/kg IV at bolus once; Sepsis Protocol; to be given as db a bolus over 90 minutes Route: IV; Rate: bolus; Site: right antecubital; 10:55 Follow up: Response: No adverse reaction; IV Status: Completed infusion; IV Intake: db 2721.6ml 14:18 Drug: HYDROmorphone IVP 1 mg IVP once Route: IVP; Site: right antecubital; db 14:31 Follow up: Response: No adverse reaction db 14:18 Drug: Promethazine IM 25 mg IM once; IV IN 100 CC NS Route: IM; Site: Other; db 14:32 Follow up: Response: No adverse reaction db Disposition Summary: 03/01/25 07:55 Transfer Ordered Notes: Transfer Location: [facility] maegan Reason: Higher level of care maegan Condition: Fair maegan Problem: new maegan Symptoms: have improved maegan Accepting Physician: to medicine / gi(03/01/25 14:35) db Diagnosis - Vomiting maegan - Abdominal pain, Generalized maegan - Bandemia maegan - Other chronic pancreatitis - sp biopsy 02/28/25 PANCREATITIC MASS 3 CM(03/01/25 maegan 08:50) - Acute kidney failure, unspecified - on chronic maegan - Type 1 diabetes mellitus with hyperglycemia maegan - Severe sepsis without septic shock maegan Forms: - Medication Reconciliation Form maegan - SBAR form maegan Signatures: Dispatcher [employer] EDMS Manpreet Nina MD MD cha Blanchard, Shelby, KECIA RN ss Samantha Bhagat RN RN db Corrections: (The following items were deleted from the chart) 07:11 07:11 CBC+H.LAB.BRZ ordered. EDMS EDMS 07:11 07:11 COMPREHENSIVE METABOLIC PANEL+C.LAB.BRZ ordered. EDMS EDMS 07:11 07:11 LIPASE+C.LAB.BRZ ordered. EDMS EDMS 07:11 07:11 Abdomen Pelvis W Con+CT.RAD.BRZ ordered. EDMS EDMS 08:23 07:40 CBC Smear Scan ordered. EDMS EDMS 08:24 07:55 to medicine / gi maegan maegan 08:31 08:31 Troponin High Sensitivity+C.LAB.BRZ ordered. EDMS EDMS 08:32 07:51 Rate is 103 beats/min. Rhythm is regular. QRS [place] is Normal. SD interval is maegan normal. QRS interval is normal. QT interval is normal. No Q waves. T waves are Normal. No ST changes noted. Clinical impression: Sinus tachycardia and No evidence of ischemia. Interpreted by me. Reviewed by me. [facility] 08:50 07:55 Other chronic pancreatitis - sp biopsy 02/28/25 [facility] 08:50 08:24 to medicine / gi [facility] 09:15 09:15 BLOOD CULTURE*+BA.LAB.BRZ ordered. EDMS EDVT 09: 09:15 LACTATE+C.LAB.BRZ ordered. EDVT EDVT :15 08:50 to medicine / gi [facility] 14:35 09:15 to medicine / gi [facility] db
--- NOTE | 2025-03-01 07:56 | ER ---
Nurse's Notes [facility] Name: Alex Auguste Age: 44 yrs Sex: Male : 1980 Arrival Date: 03/01/2025 Time: 06:57 Bed 7 Private MD: Diagnosis: Vomiting;Abdominal pain, Generalized;Other chronic pancreatitis-sp biopsy 02/28/25 PANCREATITIC MASS 3 CM;Bandemia;Acute kidney failure, unspecified-on chronic;Type 1 diabetes mellitus with hyperglycemia;Severe sepsis without septic shock Presentation: 03/01 07:10 Chief complaint: Patient states: N/V STARTED LAST NIGHT. SEEN YESTERDAY FOR db PANCREATITIS AT A [facility]. THEY WANTED TO ADMIT PT LEFT. STATES HAD BIOPSY DONE ON PANCREASE YESTERDAY. PT ACTIVELY VOMITING DURING TRIAGE. Coronavirus screen: Client denies travel out of the [place] in the last 14 days. At this time, the client does not indicate any symptoms associated with coronavirus-19. Ebola Screen: Patient negative for fever greater than or equal to 101.5 degrees Fahrenheit, and additional compatible Ebola Virus Disease symptoms Patient denies exposure to infectious person. Patient denies travel to an Ebola-affected area in the 21 days before illness onset. No symptoms or risks identified at this time. Initial Sepsis Screen: Does the patient meet any 2 criteria? No. Patient's initial sepsis screen is negative. Does the patient have a suspected source of infection? No. Patient's initial sepsis screen is negative. Risk Assessment: Do you want to hurt yourself or someone else? Patient reports no desire to harm self or others. Onset of symptoms was March 01, 2025. 07:10 Method Of Arrival: Ambulatory db 07:10 Acuity: [place] 3 db Triage Assessment: 07:10 General: Appears in no apparent distress. uncomfortable, Behavior is calm, cooperative. db Pain: Complains of pain in abdomen. Neuro: Level of Consciousness is awake, alert, obeys commands, Oriented to person, place, time, situation. Respiratory: Airway is patent Respiratory effort is even, unlabored, Respiratory pattern is regular, symmetrical. GI: Abdomen is non-distended, Pt is actively vomiting bile, undigested food, Reports nausea, vomiting. Historical: - Allergies: 07:15 No Known Allergies; db - PMHx: 07:07 angina pectoris; Anxiety; Chronic Pancreatitis; depressive disorder; Diabetes - IDDM; ss GERD; High Triglycerides; Hypertensive disorder; - PSHx: 07:07 Cholecystectomy; hand; ss - Immunization history:: Adult Immunizations unknown. - Infectious Disease History:: Denies. - Social history:: Smoking status: unknown. Screenin:45 [facility] ED Fall Risk Assessment (Adult) History of falling in the last 3 months, bp including since admission No falls in past 3 months (0 pts) Confusion or Disorientation No (0 pts) Intoxicated or Sedated No (0 pts) Impaired Gait No (0 pts) Mobility Assist Device Used No (0 pt) Altered Elimination No (0 pt) Score/Fall Risk Level 0 - 2 = Low Risk Oriented to surroundings. Abuse screen: Denies threats or abuse. Denies injuries from another. Nutritional screening: No deficits noted. Tuberculosis screening: No symptoms or risk factors identified. Assessment: 07:25 Reassessment: Patient appears in no apparent distress at this time. Patient and/or db family updated on plan of care and expected duration. Pain level reassessed. Patient is alert, oriented x 3, equal unlabored respirations, skin warm/dry/pink. General: Appears in no apparent distress. comfortable, Behavior is cooperative. 08:44 Reassessment: PT RETURNED FROM RADIOLOGY. TRANSFER INITIATED. bp 10:15 Reassessment: Patient appears in no apparent distress at this time. Patient and/or db family updated on plan of care and expected duration. Pain level reassessed. Patient is alert, oriented x 3, equal unlabored respirations, skin warm/dry/pink. Patient states feeling better. Patient states symptoms have improved. 11:30 Reassessment: Patient appears in no apparent distress at this time. Patient and/or db family updated on plan of care and expected duration. Pain level reassessed. Patient is alert, oriented x 3, equal unlabored respirations, skin warm/dry/pink. Neuro: Level of Consciousness is awake, alert, obeys commands, Oriented to person, place, time, situation. 12:51 Reassessment: Patient appears in no apparent distress at this time. Patient and/or db family updated on plan of care and expected duration. Pain level reassessed. Patient is alert, oriented x 3, equal unlabored respirations, skin warm/dry/pink. Patient states symptoms have improved. 13:08 Reassessment: REPORT CALLED TO [facility]CEIVING [facility]. REPORT db GIVEN TO SUPA. 14:10 Reassessment: PT REPORTS VOMITING ON THE FLOOR. db Vital Signs: 07:10 BP 144 / 88; Pulse 120; Resp 22; Temp 99.2; Pulse Ox 94% on R/A; Weight 90.72 kg; db Height 5 ft. 10 in. ; Pain 10/10; 07:30 BP 106 / 73; Pulse 109; Resp 18; Pulse Ox 95% ; db 08:44 BP 97 / 64; Pulse 110; Resp 20; Pulse Ox 94% ; bp 09:10 BP 92 / 54; Pulse 112; Pulse Ox 94% ; db 09:30 BP 103 / 66; Pulse 115; Resp 18; Pulse Ox 97% on R/A; db 10:13 BP 101 / 68; Pulse 115; ss 11:30 BP 101 / 70; Pulse 114; Resp 18; Pulse Ox 96% ; db 12:30 BP 108 / 66; Pulse 115; Resp 18; Pulse Ox 95% on R/A; db 13:00 BP 104 / 74; Pulse 118; Resp 18; Pulse Ox 96% ; db 14:07 BP 121 / 80; Pulse 118; Resp 18; Pulse Ox 98% ; db 07:10 Body Mass Index 28.70 (90.72 kg, 177.8 cm) db 07:10 Pain Scale: Adult db ED Course: 06:59 Patient arrived in ED. gm2 07:09 Manpreet Delcid MD is Attending Physician. maegan 07:10 Arm band placed on Patient placed in an exam room. db 07:11 Samantha Bhagat, KECIA is Primary Nurse. db 07:15 Triage completed. db 07:25 Initial lab(s) drawn, by me, sent to lab. Inserted saline lock: 20 gauge in right db antecubital area, using aseptic technique. Blood collected. Flushed with 10 mL NS. 08:00 DR Delcid initiated transfer with Lorenzo at the [facility] transfer [place]. bc6 08:[address] via stretcher. db 08:33 Abdomen In Process Unspecified. EDMS 08:45 Patient has correct armband on for positive identification. bp 10:15 Repeat lab(s) drawn. Second set of blood cultures drawn. db 11:05 acceptance received with Lorenzo for DR Liliya Schroeder at [facility] Room 7108. 6 13:20 Carson with [facility] accepted transfer. [facility] 14:32 Provided Education on: TRANSFER. Client placed on continuous cardiac and pulse oximetry db monitoring. NIBP monitoring applied. bus monitor on. Pulse ox on. NIBP on. Warm blanket given. 14:32 No provider procedures requiring assistance completed. Patient transferred, IV remains db in place. Administered Medications: 07:15 Drug: HYDROmorphone IVP 1 mg IVP once Route: IVP; Site: right antecubital; db 09:22 Follow up: Response: No adverse reaction db 07:30 Drug: Famotidine IVP 20 mg IVP once; dilute with 10 mL 0.9% NaCl; give over 2 minutes db Route: IVP; Site: right antecubital; 14:30 Follow up: Response: No adverse reaction db 07:30 Drug: morphine IVP or IV 4 mg IVP once over 4 mins Route: IVP; Infused Over: 4 mins; db Site: right antecubital; 14:31 Follow up: Response: No adverse reaction db 07:30 Drug: NS 0.9% IV 1000 ml IV at 1 bolus Per protocol; to be given as a bolus over 60 db minutes Route: IV; Rate: 1 bolus; Site: right antecubital; 14:31 Follow up: Response: No adverse reaction; IV Status: Completed infusion db 07:30 Drug: Ondansetron IVP 8 mg IVP once; over 2 minutes Route: IVP; Site: right antecubital;db 14:31 Follow up: Response: No adverse reaction db 07:30 Drug: Promethazine IM 25 mg IM once Route: IM; Site: right deltoid; db 14:30 Follow up: Response: No adverse reaction db 08:15 Drug: NS 0.9% IV 1000 ml IV at 1000 ml once; to be given as a bolus over 60 minutes db Route: IV; Rate: 1000 ml; Site: right antecubital; 14:31 Follow up: Response: No adverse reaction; IV Status: Completed infusion db 08:20 Drug: Piperacillin-Tazobactam IVPB 3.375 grams IVPB once over 60 mins; (mix in NS 100 db mL) Route: IVPB; Infused Over: 60 mins; Site: right antecubital; 09:00 Follow up: Response: No adverse reaction; IV Status: Completed infusion; IV Intake: db 100ml 10:15 Drug: Banana Bag - (Multivitamin IV 1 amp, NS 0.9% IV 1000 ml, Thiamine IV 100 mg, db foLIC Acid IVPB 1 mg) IV at 150 ml/hr once Route: IV; Rate: 150 ml/hr; Site: right antecubital; 14:30 Follow up: Response: No adverse reaction; IV Status: Infusion continued upon transfer db 10:15 Drug: NS 0.9% IV (30 ml/kg) 30 ml/kg IV at bolus once; Sepsis Protocol; to be given as db a bolus over 90 minutes Route: IV; Rate: bolus; Site: right antecubital; 10:55 Follow up: Response: No adverse reaction; IV Status: Completed infusion; IV Intake: db 2721.6ml 14:18 Drug: HYDROmorphone IVP 1 mg IVP once Route: IVP; Site: right antecubital; db 14:31 Follow up: Response: No adverse reaction db 14:18 Drug: Promethazine IM 25 mg IM once; IV IN 100 CC NS Route: IM; Site: Other; db 14:32 Follow up: Response: No adverse reaction db Medication: 10:23 VIS not applicable for this client. db Intake: 09:00 IV: 100ml; Total: 100ml. db 10:55 IV: 2722ml; Total: 2822ml. db Outcome: 07:55 ER care complete, transfer ordered by . maegan 14:32 Transferred by ground EMS Transfer form completed. X-rays sent w/ patient. db 14:32 Condition: stable 14:32 Instructed on the need for transfer, 14:35 Patient left the ED. db Signatures: Dispatcher [employer] EDMS Manpreet Delcid MD MD cha Blanchard, Shelby, RN RN Krishan Goncalves RN RN bp Benton, Danielle, RN RN db Latasha Gonzales6 Leona Riggins gm2 Corrections: (The following items were deleted from the chart) 07:15 07:10 Chief complaint: Patient states: N/V STARTED LAST NIGHT. SEEN YESTERDAY FOR db PANCREATITIS AT A [facility]. THEY WANTED TO ADMIT PT LEFT. STATES HAD BIOPSY DONE ON PANCREASE YESTERDAY db 10:23 10:22 Reassessment: REPORTS VOMITING NOTIFIED DR. DELCID db db
[2025-03-01] MEDS ORDERED: HYDROMORPHONE HCL 1 MG/ML INJ ONE ×2 (08:08→14:17)
[2025-03-01] MEDS ORDERED: NA CHLORIDE 0.9% 100 ML ONE ×2 (08:08→14:18)
[2025-03-01] MEDS ORDERED: PIPERACIL/TAZO 3.375 GM VIAL IV ONE (08:09)
[2025-03-01 08:21] LABS: Anisocytosis SLIGHT; Blood Morphology Comment NOTED (NOT SEEN); Differential Total Cells Count 100; Macrocytosis SLIGHT; Segmented Neutrophils 80 % (40-80)
[2025-03-01 08:35] LABS: ALT/SGPT 42.0 U/L (16-61); Albumin 4.0 g/dL (3.4-5.0); Albumin/Globulin Ratio 1.3 (1.1-1.8); Alkaline Phosphatase 55.0 U/L (45-117); Anion Gap 13.5 mEq/L (5.0-15.0); BUN Blood Urea Nitrogen 31.0 mg/dL (7-18); Globulin 3.0 g/dL (2.3-3.5); Glucose Level 278.0 mg/dL (74-106); Lipase 1256.0 U/L (13-75)
[2025-03-01 08:36] LABS: AST/SGOT 24.0 U/L (15-37); Potassium 3.5 mEq/L (3.5-5.1)
--- NOTE | 2025-03-01 08:43 | RAD REPORT ---
EXAMINATION: CT ABDOMEN AND PELVIS WITHOUT CONTRAST CLINICAL INDICATION: Abdominal pain TECHNIQUE: CT abdomen and pelvis was performed, as per department protocol. IV contrast and oral was not administered.Axial, sagittal and coronal reconstructions were obtained. One or more of the following dose reduction techniques were used: Automated exposure control, adjustment of the mA and/o r kV according to the patient size, and/or iterative reconstruction. Unless otherwise specified, incidental findings do not require dedicated imaging follow-up. [id number]. COMPARISON: December 2024 FINDINGS: The lack of intravenous and oral contrast limits evaluation of solid organs, vessels and bowel. Cholecystectomy. Liver appears grossly normal. Spleen mildly to moderately enlarged. Varices are present within the abdomen. 3.3 cm mass pancreatic tail Hounsfield unit 32. On the enhanced CT scan G 39. It contains peripheral calcification. There has been development of mild pancreatic stranding. Adrenals and kidneys unremarkable. Normal appendix. Small inguinal hernias small umbilical hernia No evidence of diverticulitis IMPRESSION: 3.3 cm pancreatic mass has been biopsied since the prior exam. There has been development of mild peripancreatic stranding indicative of mild pancreatitis.
[2025-03-01] MEDS ORDERED: NA CHLORIDE 0.9% 1,000 ML with MULTIVITAMINS INJ 10 ML, FOLIC ACID 1 MG, THIAMINE HCL 1... IV SCH (09:30)
[2025-03-01 15:44] VITALS: TEMP 99.2
[2025-03-01 15:59] VITALS: BP 121/80; O2SAT 98
== END 2025-03-01 14:35 | disposition short-term general hospital (02) ==
LOC: ER 06:57
DX: A41.9 Sepsis, unspecified organism (principal); R65.20 Severe sepsis without septic shock; N17.9 Acute kidney failure, unspecified; K86.1 Other chronic pancreatitis; D72.825 Bandemia; E10.65 Type 1 diabetes mellitus with hyperglycemia; K86.9 Disease of pancreas, unspecified; R10.84 Generalized abdominal pain; R11.10 Vomiting, unspecified; I10 Essential (primary) hypertension; K21.9 Gastro-esophageal reflux disease without esophagitis; Z98.890 Other specified postprocedural states
CPT/HCPCS: 96365; 96367; 96361; 96368; 93005; 87040 ×2; 85025; 36415; 83605; 84484; 83690; 80053; 74176; 96375; 96372; 99285; 96366; J2550 ×2; J3411; J2543; J1171 ×2; J2405; J7030 ×4

== ENCOUNTER 2025-03-29 20:50 | Emergency (ER) | payer BC ==
[2025-03-29] MEDS ORDERED: DIPHENHYDRAMINE 50 MG/ML VIAL ONE (21:29)
[2025-03-29] MEDS ORDERED: MORPHINE 4 MG/ML SYR ONE (21:29)
[2025-03-29] MEDS ORDERED: NA CHLORIDE 0.9% 1,000 ML ONE ×2 (21:29→23:10)
[2025-03-29] MEDS ORDERED: METOCLOPRAMIDE 10 MG/2mL INJ ONE (21:29)
[2025-03-29] MEDS ORDERED: NA CHLORIDE 0.9% 100 ML ONE (22:23)
[2025-03-29 22:36] LABS: Absolute Lymphocytes (CBC) 1.0 K/uL (0.7-4.9); Hematocrit 31.3 % (39.6-49.0); Hemoglobin 10.7 g/dL (13.6-17.9); MCH 27.0 pg (27.0-35.0); MCHC 34.2 g/dL (32.0-36.0); MCV 79.2 fL (80-100); MPV 8.1 fL (7.6-11.3); Nucleated RBC Absolute Count 0.0 (0-0); Nucleated Red Blood Cells % 0.1 % (0-0); RBC Red Blood Cell Count 3.95 M/uL (4.33-5.43); White Blood Count 6.40 thou/uL (4.3-10.9)
[2025-03-29 22:39] LABS: PT Prothrombin Time 14.4 SECONDS (10-13.0); PTT, Activated Partial Thromb 32.9 SECONDS (27.2-37.4); Protime INR 1.28
--- NOTE | 2025-03-29 22:44 | RAD REPORT ---
EXAMINATION: Abdomen Pelvis W Contrast CLINICAL INDICATION: Male, 44 years old.pain TECHNIQUE: CT abdomen and pelvis was performed, after the administration of IV contrast, as per [facility] protocol. Axial, sagittal and coronal reconstructions were obtained. One or more of the following dose reduction techniques were used: Automated exposure control, adjustment of the mA and/o r kV according to patient size, and/or iterative reconstruction. Unless otherwise specified, incidental findings do not require dedicated imaging follow-up. [id number]. COMPARISON: 03/10/2025 FINDINGS: LOWER CHEST: Small left pleural effusion and probably underlying atelectasis.Trace pericardial effusi on. Mild circumferential thickening of the distal esophagus which could reflect esophagitis. UPPER GI: Embolization coil versus vascular clip in the stomach.Interval placement of a cystogastrost francisca. Gastric wall thickening is grossly similar to prior. Gastric varices noted. LIVER: Hepatomegaly with steatosis. GALLBLADDER/BILE DUCTS: Cholecystectomy.? PANCREAS: No evidence of acute pancreatitis. Fluid collection at tail of pancreas measuring 3.5 cm is unchanged. . SPLEEN: Mild splenomegaly. ADRENALS: No adrenal masses. KIDNEYS AND URETERS: No hydronephrosis.No suspicious renal mass.No renal calculi.No ureteral calculi. ABDOMINAL AORTA AND OTHER VESSELS: Normal caliber aorta and IVC. Dilated perisplenic collaterals. PERITONEUM: Interval placement of a cystogastrostomy. Small volume of fluid with intermixed gas prese nt at the lesser sac and along the medial aspect of the left hemidiaphragm. The fluid is not drainable. LYMPH NODES: No pathologic lymphadenopathy. ABDOMINAL WALL: Small fat containing umbilical hernia. SMALL BOWEL/COLON: Small bowel has normal course and caliber. No colonic wall thickening or pericolon ic inflammatory changes.Normal appendix. Mild diverticulosis without diverticulitis. URINARY BLADDER: Underdistended but grossly unremarkable. REPRODUCTIVE ORGANS: No pathologic process. MUSCULOSKELETAL: No acute or suspicious osseous abnormality. ADDITIONAL FINDINGS: None. IMPRESSION: Interval placement of a cystogastrostomy. Some fluid with intermixed gas is present along the lesser sac and extending medially along the spleen and posterior to the stomach. No drainable collection identified. The gas within the fluid is presumably related to presence of the cystogastrostomy. Gastr ic wall thickening is again noted and may be reactive. No definite evidence of acute pancreatitis but suggest correlation with lipase.
[2025-03-29 22:50] LABS: ALT/SGPT 23.0 U/L (16-61); AST/SGOT 19.0 U/L (15-37); Albumin 3.0 g/dL (3.4-5.0); Albumin/Globulin Ratio 0.6 (1.1-1.8); Alkaline Phosphatase 127.0 U/L (45-117); Anion Gap 9.6 mEq/L (5.0-15.0); BUN Blood Urea Nitrogen 7.0 mg/dL (7-18); Globulin 4.7 g/dL (2.3-3.5); Lipase 60.0 U/L (13-75); Magnesium 1.7 mg/dL (1.6-2.4); Potassium 3.6 mEq/L (3.5-5.1); Troponin High Sensitivity 3.3 pg/mL (<58.9)
[2025-03-29 22:55] LABS: Glucose Level 400.0 mg/dL (74-106)
--- NOTE | 2025-03-30 00:07 | EDPHYS ---
Physician Documentation [facility] Name: Alex Auguste Age: 44 yrs Sex: Male : 1980 Arrival Date: 03/29/2025 Time: 20:50 Bed 19 Private MD: ED Physician Manpreet Nina HPI: 03/29 21:35 This 44 yrs old Male presents to ER via Ambulatory with complaints of Abdominal Pain. cp 21:35 The patient presents with abdominal pain that is diffuse. Onset: The symptoms/episode cp began/occurred 2 month(s) ago. 21:35 The symptoms do not radiate. Associated signs and symptoms: Pertinent positives: nausea cp and vomiting, Pertinent negatives: constipation, diarrhea, dysuria, fever. The symptoms are described as constant. Severity of pain: in the emergency department the pain is unchanged despite home interventions. Patient reports worsening abdominal pain that he said for the past 2 months. Recently had surgery for pancreatic stent placement. Reports ran out of pain medications and has been having increased nausea and vomiting today. Denies any vomiting blood and or fever. Denies any chest pain. Historical: - Allergies: 21:00 No Known Allergies; dd2 - PMHx: 21:00 angina pectoris; Anxiety; Chronic Pancreatitis; depressive disorder; Diabetes - IDDM; dd2 GERD; High Triglycerides; Hypertensive disorder; - PSHx: 21:00 Cholecystectomy; hand; dd2 - Immunization history:: Adult Immunizations up to date. - Infectious Disease History:: Denies. - Social history:: Smoking status: Reported history of juuling and/or vaping. ROS: 21:40 Constitutional: Positive for poor PO intake, Negative for fever, cp 21:40 Eyes: Negative for injury, pain, redness, and discharge, cp 21:40 ENT: Negative for drainage from ear(s), ear pain, sore throat, difficulty swallowing, difficulty handling secretions, 21:40 Cardiovascular: Negative for chest pain, 21:40 Respiratory: Negative for cough, shortness of breath, wheezing, 21:40 Abdomen/GI: Positive for abdominal pain, nausea and vomiting, Negative for diarrhea, constipation, hematemesis, black/tarry stool, rectal bleeding, 21:40 Neuro: Negative for altered mental status, 21:40 All other systems are negative, Exam: 21:40 Head/Face: Normocephalic, atraumatic. cp 21:40 Constitutional: The patient appears in no acute distress, alert, awake, non-diaphoretic, non-toxic, well developed, well nourished, uncomfortable, tearful 21:40 Eyes: Periorbital structures: appear normal, Conjunctiva: normal, no exudate, no injection, Sclera: no appreciated abnormality, Lids and lashes: appear normal, bilaterally, 21:40 ENT: External ear(s): are unremarkable, Nose: is normal, Mouth: Lips: moist, Oral mucosa: moist, Posterior pharynx: Airway: no evidence of obstruction, patent, 21:40 Chest/axilla: Inspection: normal, Palpation: is normal, no crepitus, no tenderness, 21:40 Cardiovascular: Rate: normal, Rhythm: regular, Edema: is not appreciated, JVD: is not appreciated, 21:40 Respiratory: the patient does not display signs of respiratory distress, Respirations: normal, no use of accessory muscles, no retractions, labored breathing, is not present, Breath sounds: are clear throughout, no decreased breath sounds, no stridor, no wheezing, 21:40 Abdomen/GI: Inspection: abdomen appears normal, Bowel sounds: active, all quadrants, Palpation: soft, in all quadrants, severe abdominal tenderness, in all quadrants, rebound tenderness, is not appreciated, involuntary guarding, is not appreciated, 21:40 Back: CVA tenderness, is absent, 21:40 Neuro: Orientation: to person, place \T\ time. Mentation: is normal, Motor: moves all fours, strength is normal, Sensation: is normal, Vital Signs: 20:58 BP 119 / 81; Pulse 97; Resp 17; Temp 97.3; Pulse Ox 98% on R/A; Weight 90.72 kg; Height dd2 5 ft. 10 in. ; Pain 10/10; 22:16 BP 124 / 78; Pulse 90; Resp 18; Pulse Ox 99% ; kt5 22:46 BP 148 / 92; Pulse 84; Resp 18; Pulse Ox 96% ; kt5 23:51 BP 128 / 86; Pulse 86; Resp 18; Pulse Ox 99% ; kt5 03/30 00:04 BP 130 / 70; Pulse 88; Resp 18; Temp 98.2; Pulse Ox 98% ; Pain 0/10; kt5 03/29 20:58 Body Mass Index 28.70 (90.72 kg, 177.8 cm) dd2 03/29 20:58 Pain Scale: Adult dd2 03/30 00:04 Pain Scale: Adult kt5 MDM: 03/29 20:56 Medical Screening Exam initiated maegan 03/30 00:05 Data reviewed: vital signs, nurses notes, lab test result(s), radiologic studies, CT cp scan, and as a result, I will discharge patient. 00:05 Differential diagnosis: bowel obstruction, gastritis, GI Bleed, non-specific abd pain, cp pancreatitis, Ureterolithiasis, urinary tract infection, chronic pain. I considered the following discharge prescriptions or medication management in the emergency department Medications were administered in the Emergency Department. See MAR. Care significantly affected by the following chronic conditions: Diabetes. Counseling: I had a detailed discussion with the patient and/or guardian regarding the historical points, exam findings, and any diagnostic results supporting the discharge/admit diagnosis, lab results, radiology results, the need for outpatient follow up, a dip painter, to return to the emergency department if symptoms worsen or persist or if there are any questions or concerns that arise at home. Response to treatment: the patient's symptoms have markedly improved after treatment, and as a result, I will discharge patient. Special discussion: Based on the patient's Hx, exam, and Dx evaluation, there is no indication for emergent surgery or inpatient Tx. It is understood by the patient/guardian that if the Sx's persist or worsen they need to return immediately for re-evaluation. 03/29 22:04 Order name: Glucose, Ancillary Testing; Complete Time: 22:08 EDND 03/29 22:08 Interpretation: Reviewed. cp 03/29 22:31 Order name: Comprehensive Metabolic Panel; Complete Time: 23:41 EDMS 03/29 23:41 Interpretation: Normal except: NA 133; CL 97; GLUC 400; GFR 78; ALK 127; ALB 3.0; GLOB cp 4.7; A/G 0.6. 03/29 22:31 Order name: Troponin High Sensitivity; Complete Time: 23:41 EDMS 03/29 22:32 Order name: Magnesium; Complete Time: 23:41 EDMS 03/29 22:32 Order name: Lipase; Complete Time: 23:41 EDMS 03/29 22:32 Order name: Protime (+INR); Complete Time: 23:41 EDMS 03/29 23:41 Interpretation: Abnormal: INR <p>1.28</p>. cp 03/29 22:32 Order name: PTT, Activated Partial Thromb; Complete Time: 23:41 EDMS 03/29 22:32 Order name: CBC with Automated Diff; Complete Time: 23:41 EDMS 03/29 23:42 Interpretation: Normal except: RBC 3.95; HGB 10.7; HCT 31.3; MCV 79.2; PLT 150; CATALINO% cp 75.7. 03/29 22:08 Order name: Abdomen ; Complete Time: 23:41 EDMS 03/29 23:44 Interpretation: Report reviewed. cp 03/29 21:10 Order name: Accucheck Blood Glucose; Complete Time: 22:00 cp 03/29 21:23 Order name: IV Saline Lock; Complete Time: 21:42 cp 03/29 21:23 Order name: Labs collected and sent; Complete Time: 21:50 cp 03/29 21:23 Order name: EKG - Nurse/Tech; Complete Time: 21:55 cp 03/29 23:47 Order name: PO challenge; Complete Time: 00:08 cp Administered Medications: 03/29 21:36 Drug: metoCLOPramide IVP 10 mg IVP once; over 1 to 2 minutes Route: IVP; Site: right kt5 forearm; 21:36 Drug: morphine IVP or IV 4 mg IVP once over 4 mins Route: IVP; Infused Over: 4 mins; kt5 Site: right forearm; 21:36 Drug: diphenhydrAMINE IVP 12.5 mg IVP once Route: IVP; Site: left forearm; kt5 21:37 Drug: NS 0.9% IV 1000 ml IV at 1 bolus Per protocol; to be given as a bolus over 60 kt5 minutes Route: IV; Rate: 1 bolus; Site: right forearm; 22:43 Drug: Droperidol IVP 1.25 mg IVP once Route: IVP; Site: right femoral; kt5 23:06 Follow up: Response: No adverse reaction; Pain is decreased kt5 23:18 Drug: NS 0.9% IV 1000 ml IV at 1000 ml once; to be given as a bolus over 60 minutes kt5 Route: IV; Rate: 1000 ml; Site: right forearm; 03/30 00:20 Follow up: Response: No adverse reaction; IV Status: Completed infusion; IV Intake: kt5 1000ml Disposition Summary: 03/30/25 00:06 Discharge Ordered Notes: Location: Home cp Problem: chronic cp Symptoms: have improved cp Condition: Stable cp Diagnosis - Chronic pain, not elsewhere classified - abdominal pain cp - Nausea with vomiting, unspecified cp Followup: cp - With: Gray Vincent DO - When: 2 - 3 days - Reason: Recheck today's complaints Discharge Instructions: - Discharge Summary Sheet cp - Abdominal Pain, Adult cp - Chronic Pain, Adult cp - Nausea and Vomiting, Adult cp - Chronic Pancreatitis cp Forms: - Medication Reconciliation Form cp - Antibiotic Education cp - Prescription Opioid Use cp - Patient Portal Instructions cp - Leadership Thank You Letter cp Prescriptions: - Protonix 40 mg Oral Tablet - take 1 tablet ORAL route once daily; 30 tablet; Refills: 0, Product Selection cp Permitted - Reglan 10 mg Oral Tablet - take 1 tablet ORAL route every 6 hours take 30 minutes before meals and at cp bedtime; 20 tablet; Refills: 0, Product Selection Permitted - Carafate 1 gram Oral tablet - take 2 tablets ORAL route every 12 hours take on an empty stomach, beginning on cp waking and last dose at bedtime. dissolve in 6-8 ounces warm water prior to ingestion; 100 tablet; Refills: 0, Product Selection Permitted Addendum: 04/02/2025 11:34 Co-signature as Attending Physician, Manpreet Nina MD I agree with the assessment and c connell plan of care. Signatures: Dispatcher [employer] Manpreet Hooks MD MD cha Page, Corey, PA-C PA-C MELCHOR Sutton, RN RN dd2 Heidy Rudolph, RN RN kt5 Corrections: (The following items were deleted from the chart) 03/29 21:24 21:24 CBC+H.LAB.BRZ ordered. EDMS EDMS 21:24 21:24 COMPREHENSIVE METABOLIC PANEL+C.LAB.BRZ ordered. EDMS EDMS 21:24 21:24 LIPASE+C.LAB.BRZ ordered. EDMS EDMS 21:24 21:24 MAGNESIUM+C.LAB.BRZ ordered. EDMS EDMS 21:24 21:24 Troponin High Sensitivity+C.LAB.BRZ ordered. EDMS EDMS 21:24 21:24 PROTIME (+INR)+COAG.LAB.BRZ ordered. EDMS EDMS 21:24 PTT, ACTIVATED+COAG.LAB.BRZ ordered. EDMS EDMS :24 Chest Single View+RAD.RAD.BRZ ordered. EDMS EDMS
--- NOTE | 2025-03-30 00:07 | ER ---
Nurse's Notes [facility] Name: Alex Auguste Age: 44 yrs Sex: Male : 1980 Arrival Date: 03/29/2025 Time: 20:50 Bed 19 Private MD: Diagnosis: Chronic pain, not elsewhere classified-abdominal pain;Nausea with vomiting, unspecified Presentation: 03/29 20:58 Chief complaint: Patient states: constant stomach pain for 2 months. pt reports dd2 released from hospital on 03/16, had pancreatic stents placed on 03/14. pt reports the pain is worse since his d/c. Coronavirus screen: At this time, the client does not indicate any symptoms associated with coronavirus-19. Ebola Screen: No symptoms or risks identified at this time. Initial Sepsis Screen: Does the patient meet any 2 criteria? No. Patient's initial sepsis screen is negative. Does the patient have a suspected source of infection? No. Patient's initial sepsis screen is negative. Risk Assessment: Do you want to hurt yourself or someone else? Patient reports no desire to harm self or others. Onset of symptoms is unknown. 20:58 Method Of Arrival: Ambulatory dd2 20:58 Acuity: [place] 3 dd2 Triage Assessment: 21:00 General: Appears uncomfortable, Behavior is cooperative, appropriate for age, crying. dd2 Pain: Complains of pain in epigastric area Pain currently is 10 out of 10 on a pain scale. GI: Reports upper abdominal pain, epigastric pain, nausea, vomiting. Historical: - Allergies: 21:00 No Known Allergies; dd2 - PMHx: 21:00 angina pectoris; Anxiety; Chronic Pancreatitis; depressive disorder; Diabetes - IDDM; dd2 GERD; High Triglycerides; Hypertensive disorder; - PSHx: 21:00 Cholecystectomy; hand; dd2 - Immunization history:: Adult Immunizations up to date. - Infectious Disease History:: Denies. - Social history:: Smoking status: Reported history of juuling and/or vaping. Screenin:14 [facility] ED Fall Risk Assessment (Adult) History of falling in the last 3 months, kt5 including since admission No falls in past 3 months (0 pts) Confusion or Disorientation No (0 pts) Intoxicated or Sedated No (0 pts) Impaired Gait No (0 pts) Mobility Assist Device Used No (0 pt) Altered Elimination No (0 pt) Score/Fall Risk Level 0 - 2 = Low Risk Oriented to surroundings, Maintained a safe environment. Abuse screen: Denies injuries from another. Nutritional screening: No deficits noted. Tuberculosis screening: No symptoms or risk factors identified. Assessment: 21:14 General: Appears in no apparent distress. uncomfortable, Behavior is cooperative, kt5 anxious. Pain: Complains of pain in epigastric area, right upper quadrant and left upper quadrant Pain does not radiate. Pain currently is 10 out of 10 on a pain scale. Quality of pain is described as sharp, tender, Pain began chronic Is continuous. Neuro: No deficits noted. Mera Agitation-Sedation Scale (RASS): 0 - Alert and Calm Level of Consciousness is awake, alert, obeys commands, Oriented to person, place, time, situation. Cardiovascular: No deficits noted. Heart tones S1 S2 present Capillary refill < 3 seconds Clubbing of nail beds is absent JVD is absent Pulses are all present. Edema is absent. Respiratory: No deficits noted. Airway is patent Trachea midline Respiratory effort is even, unlabored, Respiratory pattern is regular, symmetrical. GI: Abdomen is flat, non-distended, Pt is actively vomiting Bowel sounds present X 4 quads. Abd is soft X 4 quads Abdomen is tender to palpation X 4 quads. Reports upper abdominal pain, nausea, tolerance of fluids, tolerance of food, vomiting. : No deficits noted. No signs and/or symptoms were reported regarding the genitourinary system. Derm: No deficits noted. No signs and/or symptoms reported regarding the dermatologic system. Skin is intact, Skin is dry, Skin is pink, warm \T\ dry. Musculoskeletal: No deficits noted. No signs and/or symptoms reported regarding the musculoskeletal system. 22:15 General: pt to ct with tech via w/c. kt5 22:46 Reassessment: Patient appears in no apparent distress at this time. Patient and/or kt5 family updated on plan of care and expected duration. Pain level reassessed. Patient is alert, oriented x 3, equal unlabored respirations, skin warm/dry/pink. pt resting at this time, will cont to monitor. 03/30 00:04 Reassessment: Patient appears in no apparent distress at this time. Patient and/or kt5 family updated on plan of care and expected duration. Pain level reassessed. Patient is alert, oriented x 3, equal unlabored respirations, skin warm/dry/pink. Patient denies pain at this time. Patient states feeling better. Patient states symptoms have improved. Vital Signs: 03/29 20:58 BP 119 / 81; Pulse 97; Resp 17; Temp 97.3; Pulse Ox 98% on R/A; Weight 90.72 kg; Height dd2 5 ft. 10 in. ; Pain 10/10; 22:16 BP 124 / 78; Pulse 90; Resp 18; Pulse Ox 99% ; kt5 22:46 BP 148 / 92; Pulse 84; Resp 18; Pulse Ox 96% ; kt5 23:51 BP 128 / 86; Pulse 86; Resp 18; Pulse Ox 99% ; kt5 03/30 00:04 BP 130 / 70; Pulse 88; Resp 18; Temp 98.2; Pulse Ox 98% ; Pain 0/10; kt5 03/29 20:58 Body Mass Index 28.70 (90.72 kg, 177.8 cm) dd2 03/29 20:58 Pain Scale: Adult dd2 03/30 00:04 Pain Scale: Adult kt5 ED Course: 03/29 20:52 Patient arrived in ED. mr 20:54 Manpreet Pan PA-C is PHCP. cp 20:54 Manpreet Nina MD is Attending Physician. cp 21:00 Heidy Rudolph, RN is Primary Nurse. kt5 21:00 Triage completed. dd2 21:00 Arm band placed on right wrist. dd2 21:14 Patient has correct armband on for positive identification. Bed in low position. Call kt5 light in reach. Side rails up X 1. Adult w/ patient. Client placed on continuous cardiac and pulse oximetry monitoring. NIBP monitoring applied. Door closed. Noise minimized. Pillow given. Diet: Patient is NPO. 21:14 Inserted saline lock: 18 gauge in right forearm, using aseptic technique. Blood kt5 collected. Flushed with 10 mL NS. 21:57 EKG done, by industrial engineering technologist. reviewed by Manpreet Pan PA-C. ts3 22:26 Abdomen In Process Unspecified. EDMS 03/30 00:05 Gray Vincent DO is Referral Physician. cp 00:19 Provided Education on: follow up and meds. kt5 00:19 No provider procedures requiring assistance completed. IV discontinued, intact, kt5 bleeding controlled, No redness/swelling at site. Pressure dressing applied. Administered Medications: 03/29 21:36 Drug: metoCLOPramide IVP 10 mg IVP once; over 1 to 2 minutes Route: IVP; Site: right kt5 forearm; 21:36 Drug: morphine IVP or IV 4 mg IVP once over 4 mins Route: IVP; Infused Over: 4 mins; kt5 Site: right forearm; 21:36 Drug: diphenhydrAMINE IVP 12.5 mg IVP once Route: IVP; Site: left forearm; kt5 21:37 Drug: NS 0.9% IV 1000 ml IV at 1 bolus Per protocol; to be given as a bolus over 60 kt5 minutes Route: IV; Rate: 1 bolus; Site: right forearm; 22:43 Drug: Droperidol IVP 1.25 mg IVP once Route: IVP; Site: right femoral; kt5 23:06 Follow up: Response: No adverse reaction; Pain is decreased kt5 23:18 Drug: NS 0.9% IV 1000 ml IV at 1000 ml once; to be given as a bolus over 60 minutes kt5 Route: IV; Rate: 1000 ml; Site: right forearm; 03/30 00:20 Follow up: Response: No adverse reaction; IV Status: Completed infusion; IV Intake: kt5 1000ml Medication: 03/29 21:14 VIS not applicable for this client. kt5 Intake: 03/30 00:20 IV: 1000ml; Total: 1000ml. kt5 Outcome: 00:06 Discharge ordered by . steven 00:19 Discharged to home ambulatory, with family, kt5 00:19 Condition: improved 00:19 Discharge instructions given to patient, family, Instructed on discharge instructions, follow up and referral plans. Demonstrated understanding of instructions, follow-up care, medications, Prescriptions given X 4, 00:22 Patient left the ED. kt5 Signatures: Dispatcher [employer] EDSC Nicola Rosalee, Eliu Nowak mr Pan Manpreet, PA-C PAJordanC MELCHOR Sutton, RN RN dd2 Mickie Coronado ts3 Heidy Rudolph RN RN kt5
[2025-03-30 00:40] VITALS: BP 130/70; TEMP 98.2; O2SAT 98
== END 2025-03-30 00:22 | disposition home or self-care (01) ==
LOC: ER 20:50
DX: G89.29 Other chronic pain (principal); R11.2 Nausea with vomiting, unspecified; Z96.89 Presence of other specified functional implants
CPT/HCPCS: 93005; 85025; 36415; 83735; 85610; 82947; 85730; 84484; 83690; 80053; 74177; 99284; Q9967; J2765; J1200; J1790; J7030 ×2

== ENCOUNTER 2025-04-27 20:10 | Emergency (ER) | payer BC ==
[2025-04-27] MEDS ORDERED: METOCLOPRAMIDE 10 MG/2mL INJ ONE (21:22)
[2025-04-27] MEDS ORDERED: LORazepam 2 MG/ML VIAL ONE (21:23)
[2025-04-27] MEDS ORDERED: FAMOTIDINE 20 MG/2 ML VIAL IV ONE (21:24)
--- NOTE | 2025-04-27 21:41 | RAD REPORT ---
EXAMINATION: ONE VIEW CHEST XR CLINICAL INDICATION: Male, 44 years old.,vomiting TECHNIQUE: Frontal chest projection is submitted. Examination is limited by patient positioning and t echnique. COMPARISON: 03/09/2020 FINDINGS: The lungs are well inflated. Improving left sided effusion with some persistent left perihilar and ba silar opacification. No pneumothorax or sizable right effusion. The heart is normal in size. Mediastinal contours are unremarkable. IMPRESSION: Improving left sided effusion with some persistent left perihilar and basilar opacification.
[2025-04-27 22:28] LABS: Absolute Lymphocytes (CBC) 1.7 K/uL (0.7-4.9); Hematocrit 31.7 % (39.6-49.0); Hemoglobin 10.6 g/dL (13.6-17.9); MCH 26.1 pg (27.0-35.0); MCHC 33.6 g/dL (32.0-36.0); MCV 77.6 fL (80-100); MPV 7.3 fL (7.6-11.3); Nucleated RBC Absolute Count 0.0 (0-0); Nucleated Red Blood Cells % 0.2 % (0-0); RBC Red Blood Cell Count 4.08 M/uL (4.33-5.43); White Blood Count 4.60 thou/uL (4.3-10.9)
[2025-04-27 22:36] LABS: ALT/SGPT 23.0 U/L (16-61); AST/SGOT 12.0 U/L (15-37); Albumin 3.6 g/dL (3.4-5.0); Albumin/Globulin Ratio 0.8 (1.1-1.8); Alkaline Phosphatase 56.0 U/L (45-117); Anion Gap 7.4 mEq/L (5.0-15.0); BUN Blood Urea Nitrogen 17.0 mg/dL (7-18); Bilirubin Indirect, Calculated 0.6 mg/dL (0.2-0.8); Globulin 4.6 g/dL (2.3-3.5); Glucose Level 261.0 mg/dL (74-106); Lipase 105.0 U/L (13-75); Magnesium 1.9 mg/dL (1.6-2.4); NT PRO-BNP 107.0 pg/mL (<125); Potassium 3.4 mEq/L (3.5-5.1); Troponin High Sensitivity 4.3 pg/mL (<58.9)
--- NOTE | 2025-04-27 23:25 | EDPHYS ---
Physician Documentation [facility] Name: Alex Auguste Age: 44 yrs Sex: Male : 1980 Arrival Date: 04/27/2025 Time: 20:10 Bed 13 Private MD: ED Physician Salbador Ziegler HPI: 04/27 21:00 This 44 yrs old Male presents to ER via Ambulatory with complaints of Shortness Of cp Breath, Vomiting, Abdominal Pain. 21:00 The patient has shortness of breath at rest. Associated signs and symptoms: Pertinent cp positives: upper abdominal pain, N/V. Severity of symptoms: in the emergency department the symptoms are unchanged despite home interventions. The patient has experienced similar episodes in the past, chronically, hx of chronic pancreatitis. Historical: - Allergies: 20:30 No Known Drug Allergies; me1 - PMHx: 20:30 angina pectoris; Anxiety; Chronic Pancreatitis; depressive disorder; Diabetes - IDDM; me1 GERD; High Triglycerides; Hypertensive disorder; - PSHx: 20:30 Cholecystectomy; hand; stent from pancreas (Unknown); thoracentesis (Unknown); me1 - Immunization history:: Adult Immunizations up to date. - Infectious Disease History:: Denies. - Social history:: Smoking status: Reported history of juuling and/or vaping. ROS: 21:05 Constitutional: Negative for body aches, chills, fever, cp 21:05 Eyes: Negative for injury, pain, redness, and discharge, cp 21:05 Cardiovascular: Negative for chest pain, 21:05 Respiratory: Positive for shortness of breath, Negative for cough, 21:05 Abdomen/GI: Positive for abdominal pain, nausea and vomiting, 21:05 All other systems are negative, Exam: 21:05 Head/Face: Normocephalic, atraumatic. cp 21:05 Constitutional: The patient appears in no acute distress, alert, awake, non-diaphoretic, non-toxic, well developed, well nourished, uncomfortable, 21:05 Eyes: Periorbital structures: appear normal, Conjunctiva: normal, no exudate, no injection, Sclera: no appreciated abnormality, Lids and lashes: appear normal, bilaterally, 21:05 ENT: External ear(s): are unremarkable, Nose: is normal, Mouth: Lips: moist, Oral mucosa: moist, Posterior pharynx: Airway: no evidence of obstruction, patent, 21:05 Chest/axilla: Inspection: normal, 21:05 Cardiovascular: Rate: normal, 21:05 Respiratory: the patient does not display signs of respiratory distress, Respirations: normal, no use of accessory muscles, no retractions, labored breathing, is not present, Breath sounds: are clear throughout, no decreased breath sounds, no stridor, no wheezing, 21:05 Abdomen/GI: Inspection: abdomen appears normal, Bowel sounds: active, all quadrants, Palpation: soft, in all quadrants, severe abdominal tenderness, in the epigastric area, right upper quadrant and left upper quadrant, rebound tenderness, is not appreciated, involuntary guarding, is not appreciated, 21:05 Back: CVA tenderness, is absent, 21:05 Neuro: Orientation: to person, place \T\ time. Mentation: is normal, Motor: moves all fours, strength is normal, Vital Signs: 20:27 BP 146 / 96; Pulse 103; Resp 19; Temp 98.4; Pulse Ox 100% ; Weight 81.65 kg; Height 5 me1 ft. 10 in. ; Pain 10/10; 21:00 BP 124 / 71; Pulse 85; Resp 18; Pulse Ox 100% ; kj2 22:00 BP 126 / 87; Pulse 83; Resp 18; Pulse Ox 99% on R/A; kj2 23:59 BP 116 / 84; Pulse 78; Resp 18; Temp 98; Pulse Ox 100% on R/A; kj2 20:27 Body Mass Index 25.83 (81.65 kg, 177.8 cm) me1 20:27 Pain Scale: Adult me1 MDM: 20:26 Medical Screening Exam initiated tt7 23:24 Data reviewed: vital signs, nurses notes, lab test result(s), EKG, radiologic studies, cp plain films, and as a result, I will discharge patient. 23:24 Differential diagnosis: pneumonia, Pneumothorax sepsis, pancreatitis, GERD. I cp considered the following discharge prescriptions or medication management in the emergency department Medications were administered in the Emergency Department. See MAR. Care significantly affected by the following chronic conditions: Diabetes, pancreatitis. Counseling: I had a detailed discussion with the patient and/or guardian regarding the historical points, exam findings, and any diagnostic results supporting the discharge/admit diagnosis, lab results, radiology results, to return to the emergency department if symptoms worsen or persist or if there are any questions or concerns that arise at home. Special discussion: Based on the patient's Hx, exam, and Dx evaluation, there is no indication for emergent surgery or inpatient Tx. It is understood by the patient/guardian that if the Sx's persist or worsen they need to return immediately for re-evaluation. 04/27 20:43 Order name: Basic Metabolic Panel; Complete Time: 23:08 cp 04/27 23:08 Interpretation: Normal except: K 3.4; GLUC 261. cp 04/27 20:43 Order name: CBC with Diff; Complete Time: 23:08 cp 04/27 23:09 Interpretation: Normal except: RBC 4.08; HGB 10.6; HCT 31.7; MCV 77.6; MCH 26.1; PLT cp 130; RDW 16.3; MPV 7.3. 04/27 20:43 Order name: LFT's; Complete Time: 23:08 cp 04/27 20:43 Order name: Magnesium; Complete Time: 23:08 cp 04/27 20:43 Order name: NT PRO-BNP; Complete Time: 23:08 cp 04/27 20:43 Order name: Troponin HS; Complete Time: 23:08 cp 04/27 20:43 Order name: Lipase; Complete Time: 23:08 cp 04/27 20:43 Order name: XRAY Chest (1 view); Complete Time: 22:27 cp 04/27 20:43 Order name: Cardiac monitoring; Complete Time: 23:57 cp 04/27 20:43 Order name: IV Saline Lock; Complete Time: 23:57 cp 04/27 20:43 Order name: Labs collected and sent; Complete Time: 23:57 cp 04/27 20:43 Order name: O2 Per Protocol; Complete Time: 23:57 cp 04/27 20:43 Order name: O2 Sat Monitoring; Complete Time: 23:57 cp 04/27 23:10 Order name: PO challenge; Complete Time: 23:57 cp Administered Medications: 22:13 Drug: Ativan IVP 1 mg IVP once Route: IVP; Site: right antecubital; kj2 23:58 Follow up: Response: No adverse reaction kj2 22:13 Drug: metoCLOPramide IVP 10 mg IVP once; over 1 to 2 minutes Route: IVP; Site: right kj2 antecubital; 23:57 Follow up: Response: No adverse reaction kj2 22:13 Drug: Famotidine IVP 20 mg IVP once; dilute with 10 mL 0.9% NaCl; give over 2 minutes kj2 Route: IVP; Site: right antecubital; 23:57 Follow up: Response: No adverse reaction kj2 Disposition Summary: 04/27/25 23:24 Discharge Ordered Notes: Location: Home cp Problem: an acute exacerbation cp Symptoms: have improved cp Condition: Stable cp Diagnosis - Other chronic pain - pancreatitis cp - Shortness of breath cp - Nausea with vomiting, unspecified cp Followup: cp - With: Private Physician - When: 2 - 3 days - Reason: Worsening of condition Discharge Instructions: - Discharge Summary Sheet cp - Chronic Pain, Adult cp - Nausea and Vomiting, Adult cp - Shortness of Breath, Adult cp - Chronic Pancreatitis cp - Pancreatitis Eating Plan cp Forms: - Medication Reconciliation Form cp - Antibiotic Education cp - Prescription Opioid Use cp - Patient Portal Instructions cp - Leadership Thank You Letter cp Addendum: 05/03/2025 19:08 Co-signature as Attending Physician, Salbador Ziegler DO I reviewed the patient's care t t7 provided by the Advanced Practice Provider and agree with the diagnosis and treatment plan. Signatures: Dispatcher [employer] EDMN Manpreet Pan, CANDACE PALoyda Melchor cp RN RN me1 Deneen Singh RN RN kj2 Salbador Ziegler DO DO tt7 Corrections: (The following items were deleted from the chart) 04/27 20:43 20:43 BASIC METABOLIC PANEL+C.LAB.BRZ ordered. EDMS EDMS 20:43 20:43 CBC+H.LAB.BRZ ordered. EDMS EDMS 20:43 20:43 HEPATIC FUNCTION+C.LAB.BRZ ordered. EDMS EDMS 20:43 20:43 MAGNESIUM+C.LAB.BRZ ordered. EDMS EDMS 20:43 20:43 PROBNP+C.LAB.BRZ ordered. EDMS EDMS 20:43 20:43 Troponin High Sensitivity+C.LAB.BRZ ordered. EDMS EDMS 20:43 20:43 LIPASE+C.LAB.BRZ ordered. EDMS EDMS 20:43 20:43 Chest Single View+RAD.RAD.BRZ ordered. EDMS EDMS 23:57 20:43 EKG - Nurse/Tech ordered. cp kj2
--- NOTE | 2025-04-27 23:25 | ER ---
Nurse's Notes [facility] Name: Alex Auguste Age: 44 yrs Sex: Male : 1980 Arrival Date: 04/27/2025 Time: 20:10 Bed 13 Private MD: Diagnosis: Other chronic pain-pancreatitis;Shortness of breath;Nausea with vomiting, unspecified Presentation: 04/27 20:27 Chief complaint: Patient states: epigastric pain that radiates to RUQ with n/v today. me1 SOB today also. Had 1 liter taken off the left lung about a month ago. Coronavirus screen: Vaccine status: Patient reports receiving the 2nd dose of the covid vaccine. Ebola Screen: No symptoms or risks identified at this time. Initial Sepsis Screen: Does the patient meet any 2 criteria? HR > 90 bpm. Does the patient have a suspected source of infection? No. Patient's initial sepsis screen is negative. Risk Assessment: Do you want to hurt yourself or someone else? Patient reports no desire to harm self or others. Onset of symptoms is unknown. 20:27 [place] [facility] [place] Acuity: [place] 3 me1 Triage Assessment: 21:00 General: Appears uncomfortable, Behavior is calm, cooperative. Respiratory: Onset: The kj2 symptoms/episode began/occurred gradually, the patient has mild shortness of breath. Respiratory: Airway is patent Respiratory effort is unlabored. Historical: - Allergies: 20:30 No Known Drug Allergies; me1 - PMHx: 20:30 angina pectoris; Anxiety; Chronic Pancreatitis; depressive disorder; Diabetes - IDDM; me1 GERD; High Triglycerides; Hypertensive disorder; - PSHx: 20:30 Cholecystectomy; hand; stent from pancreas (Unknown); thoracentesis (Unknown); me1 - Immunization history:: Adult Immunizations up to date. - Infectious Disease History:: Denies. - Social history:: Smoking status: Reported history of juuling and/or vaping. Screenin:00 [facility] ED Fall Risk Assessment (Adult) History of falling in the last 3 months, kj2 including since admission No falls in past 3 months (0 pts) Confusion or Disorientation No (0 pts) Intoxicated or Sedated No (0 pts) Impaired Gait No (0 pts) Mobility Assist Device Used No (0 pt) Altered Elimination No (0 pt) Score/Fall Risk Level 0 - 2 = Low Risk Maintained a safe environment, Hourly rounding (assess needs \T\ fall precautionary measures) done. Abuse screen: Denies threats or abuse. Denies injuries from another. Nutritional screening: No deficits noted. Tuberculosis screening: No symptoms or risk factors identified. Assessment: 21:00 General: Appears in no apparent distress. Behavior is cooperative. Pain: Complains of kj2 pain in abdomen Pain currently is 6 out of 10 on a pain scale. Neuro: Level of Consciousness is awake, alert, obeys commands, Oriented to person, place, time, situation. Cardiovascular: Patient's skin is warm and dry. Cardiovascular: Rhythm is regular. Respiratory: Airway is patent Respiratory effort is unlabored. GI: Reports upper abdominal pain. : No signs and/or symptoms were reported regarding the genitourinary system. 21:00 Respiratory: Breath sounds are clear bilaterally. kj2 22:00 Reassessment: Patient appears in no apparent distress at this time. Patient and/or kj2 family updated on plan of care and expected duration. Pain level reassessed. Patient is alert, oriented x 3, equal unlabored respirations, skin warm/dry/pink. 22:00 Reassessment:. kj2 23:00 Reassessment: Patient appears in no apparent distress at this time. Patient and/or kj2 family updated on plan of care and expected duration. Pain level reassessed. Patient is alert, oriented x 3, equal unlabored respirations, skin warm/dry/pink. Vital Signs: 20:27 BP 146 / 96; Pulse 103; Resp 19; Temp 98.4; Pulse Ox 100% ; Weight 81.65 kg; Height 5 me1 ft. 10 in. ; Pain 10/10; 21:00 BP 124 / 71; Pulse 85; Resp 18; Pulse Ox 100% ; kj2 22:00 BP 126 / 87; Pulse 83; Resp 18; Pulse Ox 99% on R/A; kj2 23:59 BP 116 / 84; Pulse 78; Resp 18; Temp 98; Pulse Ox 100% on R/A; kj2 20:27 Body Mass Index 25.83 (81.65 kg, 177.8 cm) ca1 20:27 Pain Scale: Adult ca1 ED Course: 20:13 Patient arrived in ED. al6 20:22 [facility] steven 20:22 Salbador Ziegler DO is Attending Physician. cp 20:30 Triage completed. me1 20:30 Arm band placed on Patient placed in an exam room. me1 20:49 Deneen iSngh, RN is Primary Nurse. kj2 21:00 Patient has correct armband on for positive identification. Bed in low position. Call kj2 light in reach. Adult w/ patient. Provided Education on: call light. 21:14 XRAY Chest (1 view) In Process Unspecified. EDMS 21:30 Missed attempt(s): 20 gauge in left forearm. kj2 22:10 Inserted saline lock: 22 gauge in right antecubital area, using aseptic technique. kj2 23:58 No provider procedures requiring assistance completed. IV discontinued, intact, kj2 bleeding controlled, No redness/swelling at site. Pressure dressing applied. Administered Medications: 22:13 Drug: Ativan IVP 1 mg IVP once Route: IVP; Site: right antecubital; kj2 23:58 Follow up: Response: No adverse reaction kj2 22:13 Drug: metoCLOPramide IVP 10 mg IVP once; over 1 to 2 minutes Route: IVP; Site: right kj2 antecubital; 23:57 Follow up: Response: No adverse reaction kj2 22:13 Drug: Famotidine IVP 20 mg IVP once; dilute with 10 mL 0.9% NaCl; give over 2 minutes kj2 Route: IVP; Site: right antecubital; 23:57 Follow up: Response: No adverse reaction kj2 Medication: 21:00 VIS not applicable for this client. kj2 Outcome: 23:24 Discharge ordered by . steven 04/28 00:01 Discharged to home ambulatory, kj2 Condition: stable Discharge instructions given to patient, Instructed on discharge instructions, follow up and referral plans. Demonstrated understanding of instructions, follow-up care, 00:01 Patient left the ED. kj2 Signatures: Dispatcher [employer] EDMS Manpreet Pan PA-C PA-C cp Eddleman, Michelle, RN RN me1 Deneen Singh, RN RN kj2 Teodora Chan6
[2025-04-28 07:22] VITALS: BP 116/84; TEMP 98; O2SAT 100
== END 2025-04-28 00:01 | disposition home or self-care (01) ==
LOC: ER 20:10
DX: K86.1 Other chronic pancreatitis (principal); R06.02 Shortness of breath
CPT/HCPCS: 85025; 80048; 36415; 83735; 80076; 84484; 83690; 83880; 71045; 96375; 96374; 99284; J2765

== ENCOUNTER 2025-04-30 17:52 | Emergency (ER) | payer BC ==
[2025-04-30] MEDS ORDERED: ONDANSETRON 4 MG/2 ML VIAL ONE (18:23)
[2025-04-30] MEDS ORDERED: NA CHLORIDE 0.9% 1,000 ML ONE (18:23)
[2025-04-30 18:36] LABS: Absolute Lymphocytes (CBC) 1.7 K/uL (0.7-4.9); Hematocrit 34.6 % (39.6-49.0); Hemoglobin 11.5 g/dL (13.6-17.9); MCH 26.1 pg (27.0-35.0); MCHC 33.2 g/dL (32.0-36.0); MCV 78.8 fL (80-100); MPV 7.2 fL (7.6-11.3); Nucleated RBC Absolute Count 0.0 (0-0); Nucleated Red Blood Cells % 0.1 % (0-0); RBC Red Blood Cell Count 4.39 M/uL (4.33-5.43); White Blood Count 4.20 thou/uL (4.3-10.9)
[2025-04-30] MEDS ORDERED: FENTANYL CITR 100 MCG/2 ML ONE (18:41)
[2025-04-30 18:57] LABS: ALT/SGPT 28.0 U/L (16-61); AST/SGOT 16.0 U/L (15-37); Albumin 3.8 g/dL (3.4-5.0); Albumin/Globulin Ratio 0.8 (1.1-1.8); Alkaline Phosphatase 58.0 U/L (45-117); Anion Gap 9.7 mEq/L (5.0-15.0); BUN Blood Urea Nitrogen 19.0 mg/dL (7-18); Globulin 4.6 g/dL (2.3-3.5); Glucose Level 399.0 mg/dL (74-106); Lipase 107.0 U/L (13-75); Potassium 3.7 mEq/L (3.5-5.1)
--- NOTE | 2025-04-30 19:43 | RAD REPORT ---
EXAMINATION: Abdomen Pelvis W Contrast CLINICAL INDICATION: Male, 44 years old.ABD PAIN TECHNIQUE: CT abdomen and pelvis was performed, after the administration of IV contrast, [facility]. Axial, sagittal and coronal reconstructions were obtained. One or more of the following dose reduction techniques were used: Automated exposure control, adjustment of the mA and/o r kV according to patient size, and/or iterative reconstruction. Unless otherwise specified, incidental findings do not require dedicated imaging follow-up. [id number]. COMPARISON: 03/29/2025 FINDINGS: LOWER CHEST: Small left pleural effusion. No significant pericardial effusion. UPPER GI: Previously noted cystogastrostomy tube is no longer seen. There is stranding at the lesser sac where the tubing was present. Gastric varices. LIVER: No significant focal abnormality. GALLBLADDER/BILE DUCTS: Cholecystectomy.? PANCREAS: Unchanged cystic collection at the tip of the pancreatic tail. Slight peripancreatic strand ing is unchanged. SPLEEN: Similar mild splenomegaly. ADRENALS: No adrenal masses. KIDNEYS AND URETERS: No hydronephrosis. No suspicious renal mass. ABDOMINAL AORTA AND OTHER VESSELS: Normal caliber aorta and IVC. Perisplenic collaterals. Attenuation of the splenic vein noted. PERITONEUM: Small volume of loculated fluid medial to the spleen. LYMPH NODES: No pathologic lymphadenopathy. ABDOMINAL WALL: Unremarkable SMALL BOWEL/COLON: Small bowel has normal course and caliber. No colonic wall thickening or pericolon ic inflammatory changes. URINARY BLADDER: Underdistended but grossly unremarkable. REPRODUCTIVE ORGANS: No pathologic process. MUSCULOSKELETAL: No fracture ADDITIONAL FINDINGS: None. IMPRESSION: Previously noted cystogastrostomy tube is no longer seen. There is still some irregular low density m aterial/fluid along the lesser curvature of the stomach. No abscess identified. No definite new superimposed acute process.
[2025-04-30] MEDS ORDERED: HYDROCODONE/APAP 10/325 TAB ONE (19:47)
--- NOTE | 2025-04-30 20:06 | ER ---
Nurse's Notes [facility] Name: Alex Auguste Age: 44 yrs Sex: Male : 1980 Arrival Date: 04/30/2025 Time: 17:52 Bed 14 Private MD: Diagnosis: Upper abdominal pain, unspecified;Other chronic pancreatitis Presentation: 04/30 18:17 Chief complaint: N/V and upper abdominal pain x 5-6 days. Coronavirus screen: At this hb time, the client does not indicate any symptoms associated with coronavirus-19. Ebola Screen: No symptoms or risks identified at this time. Initial Sepsis Screen: Does the patient meet any 2 criteria? No. Patient's initial sepsis screen is negative. Does the patient have a suspected source of infection? No. Patient's initial sepsis screen is negative. Risk Assessment: Do you want to hurt yourself or someone else? Patient reports no desire to harm self or others. Onset of symptoms was April 25, 2025. 18:17 Method Of Arrival: Ambulatory hb 18:17 Acuity: [place] 3 hb Historical: - Allergies: 18:18 No Known Drug Allergies; hb - PMHx: 18:18 angina pectoris; Chronic Pancreatitis; High Triglycerides; Diabetes - IDDM; hb Hypertensive disorder; Anxiety; GERD; depressive disorder; - Immunization history:: Adult Immunizations not up to date. - Infectious Disease History:: Denies. - Social history:: Smoking status: Reported history of juuling and/or vaping. Screenin:30 [facility] ED Fall Risk Assessment (Adult) History of falling in the last 3 months, ar8 including since admission No falls in past 3 months (0 pts) Confusion or Disorientation No (0 pts) Intoxicated or Sedated No (0 pts) Impaired Gait No (0 pts) Mobility Assist Device Used No (0 pt) Altered Elimination No (0 pt) Score/Fall Risk Level 0 - 2 = Low Risk Oriented to surroundings, Maintained a safe environment. Abuse screen: Denies threats or abuse. Nutritional screening: No deficits noted. Tuberculosis screening: No symptoms or risk factors identified. Assessment: 18:35 General: Appears uncomfortable, Behavior is calm, cooperative. Pain: Complains of pain ar8 in epigastric area and umbilical area Pain currently is 10 out of 10 on a pain scale. Quality of pain is described as sharp. Neuro: Level of Consciousness is awake, alert, obeys commands, Oriented to person, place, time, situation. Cardiovascular: Patient's skin is warm and dry. Respiratory: Airway is patent Respiratory effort is even, unlabored, Respiratory pattern is regular, symmetrical. GI: Abdomen is round Abdomen is tender to palpation in epigastric area and umbilical area Reports upper abdominal pain, nausea. : No signs and/or symptoms were reported regarding the genitourinary system. EENT: No signs and/or symptoms were reported regarding the EENT system. 19:51 General: Appears uncomfortable, Behavior is cooperative. Pain: Complains of pain in tb4 abdomen Pain does not radiate. Pain currently is 8 out of 10 on a pain scale. Quality of pain is described as sharp, Pain began gradually. Neuro: Level of Consciousness is awake, alert, obeys commands, Oriented to person, place, time, situation, Moves all extremities. Full function Gait is steady, Speech is normal, Facial symmetry appears normal. Cardiovascular: Patient's skin is warm and dry. Respiratory: Respiratory effort is even, unlabored, Respiratory pattern is regular, symmetrical. GI: Abdomen is round Bowel sounds present X 4 quads. Abd is soft Abdomen is tender to palpation in left upper quadrant Reports upper abdominal pain. : No signs and/or symptoms were reported regarding the genitourinary system. Derm: No signs and/or symptoms reported regarding the dermatologic system. Skin is intact, is healthy with good turgor, Skin is dry, Skin is normal, Skin temperature is warm. Musculoskeletal: Circulation, motion, and sensation intact. Range of motion: intact in all extremities. Vital Signs: 18:17 BP 136 / 87; Pulse 96; Resp 18; Temp 98; Pulse Ox 100% ; Weight 81.65 kg; Height 5 ft. hb 10 in. ; Pain 10/10; 18:30 BP 152 / 96; Pulse 85; Resp 18; Pulse Ox 96% on R/A; Pain 10/10; ar8 19:00 BP 138 / 99; Pulse 81; Resp 17; Pulse Ox 100% on R/A; Pain 8/10; tb4 20:40 BP 140 / 77; Pulse 87; Resp 18; Pulse Ox 99% on R/A; tb4 18:17 Body Mass Index 25.83 (81.65 kg, 177.8 cm) hb 18:17 Pain Scale: Adult hb 18:30 Pain Scale: Adult ar8 19:00 Pain Scale: Adult tb4 ED Course: 17:54 Patient arrived in ED. im 17:54 [facility] Arcin[facility]C [facility] kb 17:55 Logan Quinones MD is Attending Physician. kb 18:18 Triage completed. hb 18:20 Zev Feliz, RN is Primary Nurse. ar8 18:30 No provider procedures requiring assistance completed. ar8 18:30 Bed in low position. Call light in reach. Side rails up X2. Provided Education on: plan ar8 of care. Pulse ox on. NIBP on. 18:31 Initial lab(s) drawn, by technical laboratory asst, sent to lab. Inserted saline lock: 20 gauge in right pm7 antecubital area, using aseptic technique. Blood collected. Flushed with 10 mL NS. 18:[address] ar8 18:52 CT Abd/Pelvis - IV Contrast Only In Process Unspecified. EDMS 18:[address] Patient moved back from [address]. ar8 19:10 Patient report given to KECIA Black. ar8 20:54 IV discontinued, intact, bleeding controlled, No redness/swelling at site. Pressure tb4 dressing applied. 20:55 Arm band placed on right wrist. tb4 Administered Medications: 18:31 Drug: Ondansetron IVP 4 mg IVP once; over 2 minutes Route: IVP; Site: right antecubital;ar8 19:46 Follow up: Response: No adverse reaction; Nausea is decreased tb4 18:31 Drug: NS 0.9% IV 1000 ml IV at 1000 ml once; to be given as a bolus over 60 minutes ar8 Route: IV; Rate: 1000 ml; Site: right antecubital; 19:49 Follow up: Response: No adverse reaction; IV Status: Completed infusion tb4 18:36 CANCELLED (medication unavailablee): morphineor iv 4 mg IVP once over 4 mins kb 18:44 Drug: fentaNYL (PF) IVP 50 mcg IVP once Route: IVP; Site: right antecubital; ar8 19:46 Follow up: Response: No adverse reaction; Pain is unchanged, physician notified; RASS: tb4 Alert and Calm (0) 19:49 Drug: [place] PO 10 mg-325 mg 1 tabs PO once Route: PO; tb4 20:41 Follow up: Response: No adverse reaction; Pain is decreased; RASS: Alert and Calm (0) tb4 Medication: 18:30 VIS not applicable for this client. ar8 Outcome: 20:05 Discharge ordered by . kb 20:55 Discharged to home ambulatory, with family, tb4 20:55 Condition: stable 20:55 Discharge instructions given to patient, family, Instructed on discharge instructions, follow up and referral plans. Demonstrated understanding of instructions, follow-up care, 21:01 Patient left the ED. tb4 Signatures: Dispatcher [employer] EDMS La Arciniega, DIRECTOR OF CASEWORK SERVICES-C DIRECTOR OF CASEWORK SERVICES-Preethi Chavez RN RN Mojgan Ibqal Terri, RN RN tb4 Zev Feilz RN RN ar8 Shayla Estrella pm7 Corrections: (The following items were deleted from the chart) 20:40 20:39 Reassessment: Patient is waiting on a CT scan before discharge tb4 tb4
--- NOTE | 2025-04-30 20:06 | EDPHYS ---
Physician Documentation [facility] Name: Alex Auguste Age: 44 yrs Sex: Male : 1980 Arrival Date: 04/30/2025 Time: 17:52 Bed 14 Private MD: ED Physician Logan Quinones HPI: 04/30 18:11 This 44 yrs old Male presents to ER via Unassigned with complaints of Abdominal Pain. kb 18:11 Pt is a 44 year old male who presents for nausea, vomiting and upper abd pain that kb started 5-6 days ago. States he was seen here on Wednesday but his lipase wasn't high enough for admission so he was sent home. States the symptoms have progressed since then. Reports he had a stent placed in pancreas at [facility] one month ago. . Historical: - Allergies: 18:18 No Known Drug Allergies; hb - PMHx: 18:18 angina pectoris; Chronic Pancreatitis; High Triglycerides; Diabetes - IDDM; hb Hypertensive disorder; Anxiety; GERD; depressive disorder; - Immunization history:: Adult Immunizations not up to date. - Infectious Disease History:: Denies. - Social history:: Smoking status: Reported history of juuling and/or vaping. ROS: 18:12 Constitutional: As per HPI kb Exam: 18:12 Constitutional: This is a well developed, well nourished patient who is awake, alert, kb and in no acute distress. Head/Face: Normocephalic, atraumatic. ENT: Moist Mucous membranes Cardiovascular: Regular rate Respiratory: Respirations even and unlabored. No increased work of breathing. Talking in full sentences Skin: Warm, dry with normal turgor. Normal color. MS/ Extremity: Pulses equal, no cyanosis. Neurovascular intact. Full, normal range of motion. Neuro: Awake and alert, GCS 15, oriented to person, place, time, and situation. 18:12 Abdomen/GI: Inspection: abdomen appears normal, Bowel sounds: normal, Palpation: moderate abdominal tenderness, in the right upper quadrant and left upper quadrant, Vital Signs: 18:17 BP 136 / 87; Pulse 96; Resp 18; Temp 98; Pulse Ox 100% ; Weight 81.65 kg; Height 5 ft. hb 10 in. ; Pain 10/10; 18:30 BP 152 / 96; Pulse 85; Resp 18; Pulse Ox 96% on R/A; Pain 10/10; ar8 19:00 BP 138 / 99; Pulse 81; Resp 17; Pulse Ox 100% on R/A; Pain 8/10; tb4 20:40 BP 140 / 77; Pulse 87; Resp 18; Pulse Ox 99% on R/A; tb4 18:17 Body Mass Index 25.83 (81.65 kg, 177.8 cm) hb 18:17 Pain Scale: Adult hb 18:30 Pain Scale: Adult ar8 19:00 Pain Scale: Adult tb4 MDM: 18:03 Medical Screening Exam initiated kb 20:03 Differential diagnosis: gastritis, gastroesophageal reflux disease, non-specific abd kb pain, pancreatitis. Data reviewed: vital signs, nurses notes. Consideration of Admission/Observation Escalation of care including admission/observation considered. admission considered but pain controlled, pt tolerating po intake. Will call GI in [place] tomorrow for follow up. Historians other than the Patient: Spouse/Significant Other: . 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 04/30 18:03 Order name: CBC with Diff; Complete Time: 18:37 kb 04/30 18:03 Order name: CMP; Complete Time: 18:58 kb 04/30 18:03 Order name: Lipase; Complete Time: 18:58 kb 04/30 18:13 Order name: CT Abd/Pelvis - IV Contrast Only; Complete Time: 19:44 kb 04/30 18:03 Order name: IV Saline Lock; Complete Time: 18:31 kb 04/30 18:03 Order name: Labs collected and sent; Complete Time: 18:31 kb 04/30 19:45 Order name: PO challenge; Complete Time: 19:49 kb Administered Medications: 18:31 Drug: Ondansetron IVP 4 mg IVP once; over 2 minutes Route: IVP; Site: right antecubital;ar8 19:46 Follow up: Response: No adverse reaction; Nausea is decreased tb4 18:31 Drug: NS 0.9% IV 1000 ml IV at 1000 ml once; to be given as a bolus over 60 minutes ar8 Route: IV; Rate: 1000 ml; Site: right antecubital; 19:49 Follow up: Response: No adverse reaction; IV Status: Completed infusion tb4 18:36 CANCELLED (medication unavailablee): morphineor iv 4 mg IVP once over 4 mins kb 18:44 Drug: fentaNYL (PF) IVP 50 mcg IVP once Route: IVP; Site: right antecubital; ar8 19:46 Follow up: Response: No adverse reaction; Pain is unchanged, physician notified; RASS: tb4 Alert and Calm (0) 19:49 Drug: [place] PO 10 mg-325 mg 1 tabs PO once Route: PO; tb4 20:41 Follow up: Response: No adverse reaction; Pain is decreased; RASS: Alert and Calm (0) tb4 Disposition Summary: 04/30/25 20:05 Discharge Ordered Notes: Location: Home kb Condition: Stable kb Diagnosis - Upper abdominal pain, unspecified kb - Other chronic pancreatitis kb Followup: kb - With: Emergency Department - When: As needed - Reason: Worsening of condition Followup: kb - With: Private Physician - When: 2 - 3 days - Reason: Recheck today's complaints, Continuance of care, Re-evaluation by your physician Discharge Instructions: - Discharge Summary Sheet kb - Abdominal Pain, Adult, [id number] kb - Chronic Pancreatitis kb Forms: - Medication Reconciliation Form kb - Antibiotic Education kb - Prescription Opioid Use kb - Patient Portal Instructions kb - Leadership Thank You Letter kb Signatures: Dispatcher [employer] La Méndez, TANK TRUCK ENGINE MECHANIC-C TANK TRUCK ENGINE MECHANIC-Bharathb Preethi Billy, RN Sofia Rust RN RN tb4 Zev Feliz RN RN ar8 Corrections: (The following items were deleted from the chart) 18:03 18:03 CBC+H.LAB.BRZ ordered. EDMS EDMS 18:03 18:03 COMPREHENSIVE METABOLIC PANEL+C.LAB.BRZ ordered. EDMS EDMS 18:03 18:03 LIPASE+C.LAB.BRZ ordered. EDMS EDMS 18:36 18:13 morphine IVP or IV 4 mg IVP once over 4 mins ordered. kb kb
[2025-05-01 03:53] VITALS: TEMP 98
[2025-05-01 03:57] VITALS: BP 140/77; O2SAT 99
== END 2025-04-30 21:01 | disposition home or self-care (01) ==
LOC: ER 17:52
DX: K86.1 Other chronic pancreatitis (principal); Z96.89 Presence of other specified functional implants
CPT/HCPCS: 96361; 85025; 36415; 83690; 80053; 74177; 96375; 96374; 99285; Q9967; J3010; J2405; J7030